=== PATIENT | male | born 1945 | race Caucasian/White ===

== ENCOUNTER 2017-01-10 11:51 | Inpatient (IN) | payer MEDICARE, OTHER ==
[~2017-01-10] VITALS: Ht 180.3 cm; Wt 88.0 kg
[2017-01-10] VITALS (11 sets, daily range): BP systolic 112–214; BP diastolic 55–101; PULSE 73–114; RESP 18–22; TEMP 97.1–100.9; O2SAT 95–99
[~2017-01-10 11:51] MED LIST: ASPI325T PO; ATOR40TA PO; CARD120T4 PO; CARD240C6 PO; CITA-48 PO; CLOP75 PO; DICL75 PO; DONE5TAB14 PO; LISI40TA PO; REDCAP2 OR; TRAM50TA PO; TRAV0.00 EACH EYE; ZOLP10TA3 PO
[2017-01-10] MEDS ORDERED: HYDROmorphone HCL PF 1 MG/ML VIAL IV PUSH ONE ×2 (12:15→13:30)
[2017-01-10] MEDS ORDERED: SODIUM CHLORIDE 0.9% FLUSH 5 ML FLUSH IVF PRN (12:15)
[2017-01-10] MEDS ORDERED: ACETAMINOPHEN/HYDROcodone 325 MG/5 MG TAB PO ONE (12:15)
[2017-01-10] MEDS ORDERED: ASPIRIN 81 MG CHEW TAB PO ONE (12:15)
[2017-01-10 12:37] LABS: AUTOMATED NEUTROPHIL # 6.5 TH/MM3 (1.8-7.7); BASOPHIL % 0.1 % (0.0-2.0); EOSINOPHIL % 0.1 % (0.0-4.0); HEMATOCRIT 23.4 % (39.0-51.0); HEMO FLAGS DIFF FINAL; LYMPH % 2.9 % (9.0-44.0); LYMPHOCYTE # 0.2 TH/MM3 (1.0-4.8); MEAN CELL VOLUME 81.3 FL (80.0-100.0); MEAN CORPUSCULAR HEMOGLOBIN 26.6 PG (27.0-34.0); MEAN CORPUSCULAR HGB CONC 32.8 % (32.0-36.0); MONO % 0.8 % (0.0-8.0); NEUT % 96.1 % (16.0-70.0); PLATELET COUNT 299 TH/MM3 (150-450); RED BLOOD COUNT 2.88 MIL/MM3 (4.50-5.90); RED CELL DISTRIBUTION WIDTH 15.3 % (11.6-17.2); WHITE BLOOD COUNT 6.8 TH/MM3 (4.0-11.0)
[2017-01-10 12:46] LABS: PROTHROMBIN TIME - PATIENT 11.1 SEC (9.8-11.6)
[2017-01-10 12:50] LABS: APTT (PATIENT) 22.8 SEC (24.3-30.1)
[2017-01-10 12:52] LABS: ALT (GPT) 221 U/L (12-78); ANION GAP 9 MEQ/L (5-15); AST (GOT) 229 U/L (15-37); BICARBONATE 25.2 MEQ/L (21.0-32.0); BLOOD UREA NITROGEN 20 MG/DL (7-18); CHLORIDE 108 MEQ/L (98-107); GLOMERULAR FILTRATION RATE 64 ML/MIN (>89); POTASSIUM 3.1 MEQ/L (3.5-5.1); SODIUM (NA) 142 MEQ/L (136-145)
[2017-01-10 12:57] LABS: ALKALINE PHOSPHATASE 467 U/L (45-117); TOTAL BILIRUBIN ADULT 2.1 MG/DL (0.2-1.0)
[2017-01-10 13:03] LABS: CREATINE KINASE 79 U/L (39-308)
[2017-01-10] MEDS ORDERED: LABETALOL HCL 100 MG/20 ML VIAL IV PUSH ONE (13:15)
[2017-01-10] MEDS ORDERED: DILT-64 PO (13:25)
[2017-01-10] MEDS ORDERED: DONE10TA7 PO (13:27)
[2017-01-10] MEDS ORDERED: TRAV0.00 EACH EYE (13:27)
[2017-01-10] MEDS ORDERED: TRAM50TA PO (13:27)
[2017-01-10] MEDS ORDERED: CYCL1TAB29 PO (13:27)
[2017-01-10] MEDS ORDERED: CITA40TA4 PO (13:29)
[2017-01-10] MEDS ORDERED: PLAV75TA29 PO (13:29)
[2017-01-10] MEDS ORDERED: LISI40TA PO (13:29)
[2017-01-10] MEDS ORDERED: ASPI325T PO (13:30)
[2017-01-10] MEDS ORDERED: AMBI10TA PO (13:30)
[2017-01-10] MEDS ORDERED: ATOR40TA16 PO (13:30)
[2017-01-10] MEDS ORDERED: ADVA250A INH (13:32)
--- NOTE | 2017-01-10 13:55 | RADRPT ---
EXAM DATE/TIME: 01/10/2017 12:38 [facility] COMPARISON: CHEST SINGLE AP, May 08, 2016, 14:41. INDICATIONS : Chest Pain, Short of Breath. MEDICAL HISTORY : Chronic obstructive pulmonary disease. Hypertension. Diabetes. SURGICAL HISTORY : None. ENCOUNTER: Initial ACUITY: 1 day PAIN SCORE: 6/10 LOCATION: Bilateral chest FINDINGS: Single AP view of the chest. The lungs are clear. Cardiomediastinal silhouette within normal limits. No evidence of pleural effusion or pneumothorax. CONCLUSION: No acute cardiopulmonary disease identified. Stuart Augustin MD on January 10, 2017 at 13:53 Board Certified Radiologist. This report was verified electronically.
[2017-01-10] MEDS ORDERED: IOHEXOL 350 MG/ML 10 ML VIAL (for RAD DIAG) IV ONE (14:58)
--- NOTE | 2017-01-10 15:24 | RADRPT ---
EXAM DATE/TIME: 01/10/2017 14:49 [facility] COMPARISON: No previous studies available for comparison. INDICATIONS : Abdomen pain; evaluate for aortic dissection. IV CONTRAST: 94 cc Omnipaque 350 (iohexol) IV RADIATION DOSE: 16.89 CTDIvol (mGy) MEDICAL HISTORY : Renal calculi. Cardiovascular disease Pancreatitis.COPD SURGICAL HISTORY : None. ENCOUNTER: Initial ACUITY: 1 day PAIN SCALE: 5/10 LOCATION: chest/abdomen TECHNIQUE: Volumetric scanning was performed using a multi-row detector CT scanner. The data was post processed with a variety of visualization algorithms including full volume maximum intensity projection, multi -planar sliding thin slab reformation, curved planar reformation, and surface rendering techniques. Using automated exposure control and adjustment of the mA and/or kV according to patient size, radiat ion dose was kept as low as reasonably achievable to obtain optimal diagnostic quality images. FINDINGS: LUNGS: There is no consolidation or pneumothorax. No concerning pulmonary nodule is visualized. No pleural fluid is present. Mild emphysema and minimal right upper lobe patchy densities. MEDIASTINUM: No abnormally enlarged lymph nodes by CT criteria. No axillary or hilar abnormalities are identified. Coronary artery calcification. ABDOMEN: The liver and spleen are free of focal defects. The gallbladder demonstrate no abnormality. The adren al glands are normal. The kidneys demonstrate no evidence of solid renal mass or hydronephrosis. No f ree fluid or abdominal masses are identified. No para-aortic adenopathy is seen. Diverticulosis of th e abdomen. Inflammatory changes around the pancreas. Several punctate nonobstructing bilateral renal calculi. Penile prosthesis. PELVIS: No evidence of free fluid or pelvic mass. No abnormally enlarged inguinal or retroperitoneal lymph no aramis are present. The bladder is unremarkable. THORACIC AORTA: The thoracic aortic root is normal with normal branching of the great vessels. There is no evidence of aneurysm or dissection. ABDOMINAL AORTA: The aorta is normal in caliber without aneurysm or dissection. The renal arteries are patent bilater ally. The proximal celiac and superior mesenteric arteries are patent and normal in diameter. Athe rosclerotic changes. Prominent calcification toward the left renal artery. PELVIC VESSELS: The internal iliac and external iliac vessels are patent without aneurysm or stenosis. CONCLUSION: 1. Atherosclerotic changes been no aneurysm or dissection. 2. Diverticulosis. 3. Slight inflammatory changes along the pancreatic head could be pancreatitis in the right clinical setting. 4. Bilateral punctate nonobstructing renal calculi. 5. Emphysema and minimal patchy density right upper lobe could be infectious or inflammatory. Gamal Solorzano MD on January 10, 2017 at 15:19 Board Certified Radiologist. This report was verified electronically.
--- NOTE | 2017-01-10 16:31 | EKG ---
Date Performed: 01/10/2017 Time Performed: 11:55:27 PTAGE: 71 years EKG: POSSIBLE ATRIAL FLUTTER/TACHYCARDIA WITH RAPID VENTRICULAR RESPONSE versus SINUS TACHYCARDI A RIGHT BUNDLE BRANCH BLOCK NONSPECIFIC ST ABNORMALITIES ABNORMAL ECG PREVIOUS TRACING : 05/08/2016 14.13 Compared to previous tracing, heart rate has increased. DOCTOR: Lefty Jack Interpretating Date/Time 01/10/2017 16:31:17
[2017-01-10] MEDS ORDERED: PANTOPRAZOLE INJ 80 MG in SODIUM CHLORIDE 0.9% INJ 35 ML IV ONE (16:45)
[2017-01-10] MEDS ORDERED: SODIUM CHLOR 0.9% 250 ML INJ 250 ML IV ONE (16:45)
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
[2017-01-10] MEDS ORDERED: ONDANSETRON HCL 4 MG/2 ML VIAL IV PRN (17:30)
[2017-01-10] MEDS ORDERED: ACETAMINOPHEN 325 MG TAB PO PRN (17:30)
[2017-01-10] MEDS ORDERED: MORPHINE SULFATE 4 MG/ML INJ IV PUSH PRN (17:45)
--- NOTE | 2017-01-10 17:53 | PD ---
HPI Chief Complaint: Cardiac Complaint Time Seen by Provider: 11:56 Travel History International Travel<30 days: No Contact w/Intl Traveler<30days: No Traveled to known affect area: No History of Present Illness HPI Patient is a 71 year old male who comes in complaining of chest pain. He says the pain started around 6 this morning. He says the pain is in the middle of his chest and his back. He denies cough or congestion. He has had nausea, but has not had any vomiting. He denies leg swelling or calf pain. He has history of CVA and has been on aspirin and plavix for this. PFSH Past Medical History Cardiovascular Problems: Yes (HYPERTENSION) COPD: Yes Cerebrovascular Accident: Yes (STROKE X2) Dementia: Yes (MILD ) Diabetes: Yes Patient Takes Glucophage: No Diminished Hearing: Yes (BILATERAL HEARING AIDS) Hypertension: Yes Kidney Stones: Yes Respiratory: Yes (COPD) Pancreatitis: Yes Influenza Vaccination: No Past Surgical History Appendectomy: Yes Body Medical Devices: bladder implant Eye Surgery: Yes (L/R EYE CATARACT REMOVAL ) Social History Alcohol Use: No Tobacco Use: No Substance Use: No Allergies-Medications (Allergen,Severity, Reaction): Coded Allergies: Bactrim (Verified Allergy, Severe, Anaphylaxis, 01/10/17) Ceftin (Verified Allergy, Severe, Anaphylaxis, 01/10/17) Flagyl (Verified Allergy, Severe, Fever, colitis, 01/10/17) Penicillin (Verified Allergy, Severe, Anaphylaxis, 01/10/17) Sulfa (Verified Allergy, Severe, Anaphylaxis, 01/10/17) Uncoded Allergies: mycins (Allergy, Severe, Fever, colitis, 12/15/13) surgical tape (Allergy, Severe, 12/15/13) Reported Meds & Prescriptions Reported Meds & Active Scripts Active Reported Advair Diskus Inh (Fluticasone-Salmeterol Inh) 250-50 Mcg/Blist Aer 1 Puff INH BID Rinse mouth after use. Aspirin 325 Mg Tab 325 Mg PO DAILY Ambien (Zolpidem Tartrate) 10 Mg Tab 10 Mg PO HS PRN Atorvastatin (Atorvastatin Calcium) 40 Mg Tab 40 Mg PO HS Citalopram (Citalopram Hydrobromide) 40 Mg Tab 60 Mg PO DAILY Plavix (Clopidogrel Bisulfate) 75 Mg Tab 75 Mg PO DAILY Lisinopril 40 Mg Tab 40 Mg PO HS Tramadol (Tramadol HCl) 50 Mg Tab 50 Mg PO Q4H PRN Travatan Z Opth Drops (Travoprost) 0.004 % Soln 1 Drop EACH EYE HS Donepezil 10 Mg Tab 10 Mg PO HS Flexeril (Cyclobenzaprine HCl) 10 Mg Tab 10 Mg PO HS Diltiazem CD 24 HR 240 Mg Caper 480 Mg PO HS Review of Systems Except as stated in HPI: all other systems reviewed are Neg General / Constitutional: No: Fever, Chills Eyes: No: Blurred Vision HENT: No: Headaches Cardiovascular: Positive: Chest Pain or Discomfort Respiratory: Positive: Shortness of Breath Gastrointestinal: Positive: Nausea, No: Abdominal Pain Genitourinary: No: Dysuria Musculoskeletal: No: Edema, Pain Skin: No Rash, No Change in Pigmentation Neurologic: No: Weakness Physical Exam Narrative GENERAL: Awake and alert, in distress secondary to pain. SKIN: Warm and diaphoretic. HEAD: Atraumatic. Normocephalic. EYES: Pupils equal and round. No scleral icterus. ENT: Mucous membranes pink and moist. NECK: Trachea midline. No JVD. CARDIOVASCULAR: Regular rate and rhythm. No murmur appreciated. RESPIRATORY: No accessory muscle use. Clear to auscultation. Breath sounds equal bilaterally. GASTROINTESTINAL: Abdomen soft, non-tender, nondistended. MUSCULOSKELETAL: No obvious deformities. No clubbing. No cyanosis. No edema. NEUROLOGICAL: Awake and alert. No obvious cranial nerve deficits. Motor grossly within normal limits. Normal speech. PSYCHIATRIC: Appropriate mood and affect; insight and judgment normal. Data Data Last Documented VS Vital Signs Date Time Temp Pulse Resp B/P Pulse Ox O2 Delivery O2 Flow Rate FiO2 01/10/17 15:36 81 18 116/58 97 Room Air 01/10/17 12:14 2 01/10/17 11:54 100.9 Orders Electrocardiogram (01/10/17 ) Ckmb (Isoenzyme) Profile (01/10/17 12:03) Complete Blood Count With Diff (01/10/17 12:03) Comprehensive Metabolic Panel (01/10/17 12:03) Prothrombin Time / Inr (Pt) (01/10/17 12:03) Act Partial Throm Time (Ptt) (01/10/17 12:03) Troponin I (01/10/17 12:03) Lipase (01/10/17 12:03) Chest, Single Ap (01/10/17 12:03) Ecg Monitoring (01/10/17 12:03) Bilateral Bp Monitoring (01/10/17 12:03) Iv Access Insert/Monitor (01/10/17 12:03) Oximetry (01/10/17 12:03) Oxygen Administration (01/10/17 12:03) Aspirin Chew (Aspirin Chew) (01/10/17 12:15) Sodium Chloride 0.9% Flush (Ns Flush) (01/10/17 12:15) Hydromorphone Pf Inj (Dilaudid Pf Inj) (01/10/17 12:15) Lactic Acid (01/10/17 12:10) Acetamin-Hydrocod 325-5 Mg ([place] 5-325 (01/10/17 12:15) Cta Thor Abd Aorta W Iv C W3d (01/10/17 13:04) Labetalol Inj (Trandate Inj) (01/10/17 13:15) Hydromorphone Pf Inj (Dilaudid Pf Inj) (01/10/17 13:30) Iohexol 350 Inj (Omnipaque 350 Inj) (01/10/17 14:58) Admit Order (Ed Use Only) (01/10/17 ) Pantoprazole Inj (Protonix Inj) (01/10/17 16:45) Pantoprazole Inj (Protonix Inj) (01/10/17 16:45) Red Blood Cells (Rbc) (01/10/17 16:39) Blood Product Administration .UPON TRANSFUSION (01/10/17 16:39) Sodium Chlor 0.9% 250 Ml Inj (Ns 250 Ml (01/10/17 16:45) Type And Screen (01/10/17 16:39) Labs Laboratory Tests Test 01/10/17 12:20 White Blood Count 6.8 TH/MM3 Red Blood Count 2.88 MIL/MM3 Hemoglobin 7.7 GM/DL Hematocrit 23.4 % Mean Corpuscular Volume 81.3 FL Mean Corpuscular Hemoglobin 26.6 PG Mean Corpuscular Hemoglobin 32.8 % Concent Red Cell Distribution Width 15.3 % Platelet Count 299 TH/MM3 Mean Platelet Volume 7.9 FL Neutrophils (%) (Auto) 96.1 % Lymphocytes (%) (Auto) 2.9 % Monocytes (%) (Auto) 0.8 % Eosinophils (%) (Auto) 0.1 % Basophils (%) (Auto) 0.1 % Neutrophils # (Auto) 6.5 TH/MM3 Lymphocytes # (Auto) 0.2 TH/MM3 Monocytes # (Auto) 0.1 TH/MM3 Eosinophils # (Auto) 0.0 TH/MM3 Basophils # (Auto) 0.0 TH/MM3 CBC Comment DIFF FINAL Differential Comment Prothrombin Time 11.1 SEC Prothromb Time International 1.0 RATIO Ratio Activated Partial 22.8 SEC Thromboplast Time Sodium Level 142 MEQ/L Potassium Level 3.1 MEQ/L Chloride Level 108 MEQ/L Carbon Dioxide Level 25.2 MEQ/L Anion Gap 9 MEQ/L Blood Urea Nitrogen 20 MG/DL Creatinine 1.13 MG/DL Estimat Glomerular Filtration 64 ML/MIN Rate Random Glucose 192 MG/DL Lactic Acid Level 3.4 mmol/L Calcium Level 8.9 MG/DL Total Bilirubin 2.1 MG/DL Aspartate Amino Transf 229 U/L (AST/SGOT) Alanine Aminotransferase 221 U/L (ALT/SGPT) Alkaline Phosphatase 467 U/L Total Creatine Kinase 79 U/L Troponin I 0.12 NG/ML Total Protein 6.4 GM/DL Albumin 3.2 GM/DL Lipase 362 U/L MDM Medical Decision Making Medical Screen Exam Complete: Yes Emergency Medical Condition: Yes Medical Record Reviewed: Yes Interpretation(s) ECG shows a flutter at 115, depressions in the 1, aVL, V4 through V6. ST depressions are similar to previous EKGs. Differential Diagnosis Aortic dissection versus ACS versus NSTEMI versus STEMI Narrative Course Patient is a 71-year-old male who comes in complaining of chest pain with shortness of breath. Exam shows patient in mild distress due to pain, he is diaphoretic. IV established, patient placed on the cardiac cath lab technologist. Labs sent. Patient's reported that he sometimes has adverse reactions to pain medicine. She said that he can take hydrocodone without any issue. Given 1 Lortab. Given aspirin. Labs show an elevated troponin to 0.12. Hemoglobin is 7.7. Lactic acid is 3.4. AST, ALP, alkaline phosphatase are all elevated. CTA of the aorta performed shows no signs of dissection. There is inflammation around the pancreas. No other acute findings seen. Patient continued to have pain and elevated blood pressure. Given a dose of labetalol as well as hydromorphone. Patient felt much better after pain medicine. Stool was brown, but positive for occult blood. I spoke with Dr. Jack of cardiology regarding the patient's elevated troponin. He agrees to hold heparin at this time due to the active bleeding. Patient will be transfused one unit of PRBCs due to anemia and strain on his heart. Patient started on Protonix. Admitted for further management. Critical Care Narrative Aggregate critical care time was 40 minutes. Time to perform other separately billable procedures was not included in the critical care time. My time did not include minutes spent treating any other patients simultaneously or on activities that did not directly contribute to the patient's treatment. The services I provided to this patient were to treat and/or prevent clinically significant deterioration that could result in: Serious illness or I provided critical care services requiring my management, as noted below: Chart data review, documentation time, medication orders and management, vital sign assessments/reviewing monitor data, ordering and reviewing lab tests, ordering and interpreting/reviewing x-rays and diagnostic studies, care of the patient and discussion of the patient with the admitting physicians. Diagnosis Primary Impression: NSTEMI (non-ST elevated myocardial infarction) Additional Impression: Lower GI bleed Admitting Information Admitting Physician Requests: it Debbie Rendon MD Jan 10, 2017 17:53
[2017-01-10] MEDS: NS + KCL 20 MEQ INJ 1,000 ML IV SCH (18:00)
--- NOTE | 2017-01-10 18:07 | MB ---
cc: LEONILA VACA M.D. DATE OF CONSULTATION: 01/10/2017 REASON FOR CONSULTATION: Chest pain, abnormal troponin level. HISTORY OF PRESENT ILLNESS: The patient is 71-year-old white male with a history of hypertension, COPD, two CVAs, cerebrovascular disease status post right carotid endarterectomy last year who presented to the hospital with fairly severe substernal chest pain without associated shortness of breath, nausea or diaphoresis. The chest discomfort lasted about two hours. At the present time, he is resting comfortably denying any chest pain or shortness of breath. He cannot recall any other episodes of chest discomfort over the last few months. The chest pain was not pleuritic. He also denies dizziness, syncope, near-syncope, palpitations, pedal edema, paroxysmal nocturnal dyspnea. PAST MEDICAL HISTORY: 1. Hypertension 2. COPD. 3. History of two CVAs. 4. History of right carotid endarterectomy. PAST SURGICAL HISTORY: 1. Back surgery. 2. Left elbow surgery 1975. 3. Right hand surgery 1984. 4. Penile implant 1987. 5. Bilateral cataract operations 2008 with a repeat right cataract operation 2011. 6. Bladder surgery 2006. 7. Appendectomy. 8. Right carotid endarterectomy 2016. CARDIAC MEDICATIONS AT HOME: 1. Aspirin 325 mg daily. 2. Atorvastatin 40 mg q.h.s. 3. Plavix 75 mg daily. 4. Lisinopril 40 mg q.h.s. 5. Diltiazem 200s 40 mg q.h.s. ALLERGIES: 1. BACTRIM. 2. CEFTIN. 3. FLAGYL. 4. PENICILLIN. 5. SULFA. 6. MYCINS. FAMILY HISTORY The patient's father sustained myocardial infarctions beginning in his 50s. SOCIAL HISTORY: The patient quit smoking a few months ago. He has a history of alcohol abuse but has not drunk alcohol since 2007. REVIEW OF SYSTEMS: Review of systems as in the history of present illness otherwise negative or noncontributory. He also denies headache, abdominal pain, bright red blood per rectum, fevers, pleurisy, cough. He has noted black tarry stools over the last six days. PHYSICAL EXAMINATION: VITAL SIGNS: On physical examination his blood pressure 116/58 with a pulse of 80, respirations 18. GENERAL: In general he is a well-developed, well-nourished white male in no acute distress. HEAD, EYES, EARS, NOSE, THROAT: On HEENT examination jugular venous pressure is normal. Carotid pulses are 2+ bilaterally and without bruits. CHEST: Examination of the chest reveals clear lung lenoard. CARDIAC: On cardiac examination he has a regular rhythm and rate without S3, S4 or murmur. ABDOMEN: On abdominal examination he has a soft, nontender abdomen. Bowel sounds are present. There is no definite hepatosplenomegaly. EXTREMITIES: Examination of extremities reveals no clubbing, cyanosis or edema. EKGS: EKG shows probable sinus tachycardia, right bundle-branch block, nonspecific ST abnormalities. LABORATORY DATA: Laboratory data includes potassium 3.1, BUN 20, creatinine 1.13, AST 229, ALT 221. CK 79, troponin 0.12. INR 1.0. IMAGING STUDIES: The patient's aortic CT angiogram shows no evidence for aneurysm or dissection; slight inflammatory changes are seen along the pancreatic head possibly from pancreatitis. Chest x-ray shows no acute disease. IMPRESSION: Chest pain, minimally abnormal troponin level in this 71-year-old white male with a history of hypertension, COPD, CVA, right carotid endarterectomy. At this time he is chest pain-free. EKG shows no definite diagnostic S-T segment or T-wave changes. CK is negative for myocardial infarction. At this time he is not a candidate for invasive cardiac evaluation with his anemia and possible GI bleeding. So far there has been no evidence for congestive heart failure or significant arrhythmias. RECOMMENDATIONS: 1. Check a 2-D echo to assess left ventricular function. 2. If his blood pressures tolerate, recommend beta yina therapy. 3. GI evaluation for possible upper GI bleeding. 4. Consider initiation of daily baby aspirin. MD KIERSTEN Donnelly/BRIJESH /5:35 PM /5:46 PM SAL
[2017-01-10] MEDS: PANTOPRAZOLE INJ 80 MG in SODIUM CHLORIDE 0.9% INJ 100 ML IV SCH (18:58)
[2017-01-10] MEDS ORDERED: NON-FORMULARY DRUG (Fluticasone-Salmeterol Inh (Advair Diskus Inh) 1 PUFF) INH SCH (21:00)
[2017-01-10] MEDS ORDERED: LISINOPRIL 20 MG TAB PO SCH (21:00)
[2017-01-10] MEDS: CARVEDILOL 3.125 MG TAB PO SCH (21:55)
[2017-01-10] MEDS: DILTIAZEM-CD 240 MG CAP ER PO SCH (21:55)
[2017-01-10] MEDS: ATORVASTATIN 40 MG TAB PO SCH (21:56)
[2017-01-10] MEDS: DONEPEZIL HCL 5 MG TAB PO SCH (21:56)
[2017-01-10] MEDS: HYDROmorphone HCL PF 1 MG/ML VIAL IV PUSH PRN (22:44)
[2017-01-11] VITALS (10 sets, daily range): BP systolic 111–171; BP diastolic 55–80; PULSE 57–63; RESP 14–38; TEMP 97.9–98.8; O2SAT 93–98
[2017-01-11] MEDS: ZOLPIDEM TARTRATE 10 MG TAB PO PRN (01:13)
[2017-01-11 03:46] LABS: BASOPHIL % 0.3 % (0.0-2.0); HEMATOCRIT 22.1 % (39.0-51.0); HEMO FLAGS DIFF FINAL; LYMPHOCYTE # 0.7 TH/MM3 (1.0-4.8); MEAN CELL VOLUME 81.3 FL (80.0-100.0); MEAN CORPUSCULAR HGB CONC 33.2 % (32.0-36.0); MONO % 7.9 % (0.0-8.0); NEUT % 86.8 % (16.0-70.0); PLATELET COUNT 249 TH/MM3 (150-450); RED BLOOD COUNT 2.72 MIL/MM3 (4.50-5.90); RED CELL DISTRIBUTION WIDTH 14.8 % (11.6-17.2); WHITE BLOOD COUNT 14.9 TH/MM3 (4.0-11.0)
[2017-01-11] MEDS: PANTOPRAZOLE INJ 80 MG in SODIUM CHLORIDE 0.9% INJ 100 ML IV SCH ×2 (04:00→15:38)
[2017-01-11] MEDS: NS + KCL 20 MEQ INJ 1,000 ML IV SCH ×2 (04:00→20:14)
[2017-01-11 04:06] LABS: ALKALINE PHOSPHATASE 337 U/L (45-117); ALT (GPT) 179 U/L (12-78); ANION GAP 9 MEQ/L (5-15); AST (GOT) 159 U/L (15-37); BICARBONATE 24.5 MEQ/L (21.0-32.0); BLOOD UREA NITROGEN 26 MG/DL (7-18); CHLORIDE 109 MEQ/L (98-107); GLOMERULAR FILTRATION RATE 65 ML/MIN (>89); HDL CHOLESTEROL 72.5 MG/DL (40.0-60.0); LDL CHOLESTEROL 7 MG/DL (0-99); MAGNESIUM 1.7 MG/DL (1.5-2.5); POTASSIUM 3.9 MEQ/L (3.5-5.1); SODIUM (NA) 142 MEQ/L (136-145); TOTAL BILIRUBIN ADULT 3.7 MG/DL (0.2-1.0)
[2017-01-11] MEDS: HYDROmorphone HCL PF 1 MG/ML VIAL IV PUSH PRN ×5 (04:36→22:08)
[2017-01-11] MEDS ORDERED: PANTOPRAZOLE SODIUM 40 MG VIAL IV PUSH SCH (09:00)
[2017-01-11] MEDS: BUDESONIDE-FORMOTEROL 160/4.5 MCG INHALER INH SCH ×2 (09:00→21:00)
[2017-01-11] MEDS ORDERED: SODIUM CHLOR 0.9% 250 ML INJ 250 ML IV ONE (09:00)
[2017-01-11] MEDS ORDERED: FUROSEMIDE 20 MG/2 ML VIAL IV ONE (09:00)
[2017-01-11] MEDS: CARVEDILOL 3.125 MG TAB PO SCH ×3 (09:00→20:11)
--- NOTE | 2017-01-11 09:14 | EKG ---
Date Performed: 01/11/2017 Time Performed: 02:07:36 PTAGE: 71 years EKG: Sinus rhythm Right bundle branch block Lateral T wave changes are nonspecific Abnormal ECG NO PREVIOUS TRACING DOCTOR: Lefty Jack Interpretating Date/Time 01/11/2017 09:13:51
[2017-01-11] MEDS: CITALOPRAM HYDROBROMIDE 20 MG TAB PO SCH (09:39)
[2017-01-11] MEDS ORDERED: PANTOPRAZOLE INJ 80 MG in SODIUM CHLORIDE 0.9% INJ 100 ML IV SCH (10:00)
[2017-01-11 10:28] LABS: REVIEW FLAG FINAL
[2017-01-11] MEDS ORDERED: NITROGLYCERIN 0.4 MG SL 25 TABS/BTL SL PRN (11:00)
[2017-01-11] MEDS ORDERED: NITROGLYCERIN 2% OINT 1 GM PACKET TOP PRN (11:00)
[2017-01-11 12:14] LABS: CREATINE KINASE 161 U/L (39-308)
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
[2017-01-11 12:41] LABS: CKMB 0.9 NG/ML (0.5-3.6)
--- NOTE | 2017-01-11 14:03 | PD.CONS ---
History of Present Illness Service Infectious disease Consult Requested By Dr Nathaniel Van Reason for Consult Evaluate patient with gram-negative sepsis Primary Care Physician Chandana Akins MD Diagnoses: History of Present Illness Patient seen and examined. Records reviewed. Patient is a 72-year-old male presented to the hospital complaining of chest pain that started the morning of admission. He describes the pain as a squeezing sensation. There was no radiation, but he had some shortness of breath. There was no diaphoresis. Patient also has had black tarry bowel movements in the last week. There was one vomiting on the day of admission. He has not had any bouts of abdominal pain, but on the time of my examination patient is having problem in his right upper quadrant. He has not had any prior problem with gallbladder but he has had previous episodes of pancreatitis , the last one probably back in the 80s. He has had previous history of alcohol abuse but has been dry probably since about 2007. He denies any dysuria or any hematuria. Currently he still has some chest pain but he describes this now as being sharp. He had one temp spike to 100.9. His WBC was initially normal, and now it's elevated at 15,000. His LFTs are elevated. Previous LFTs done as an outpatient were within normal limits. His troponins are also elevated and cardiology has been following the patient. There were 2 blood cultures done on admission, and they're now reported as growing gram- negative rods. His hemodynamics are stable. His lipase is normal. Infectious disease consultation requested to evaluate the patient. Review of Systems Constitutional: DENIES: Fever, Chills, Night Sweats Eyes: DENIES: Eye pain Ears, nose, mouth, throat: DENIES: Nasal discharge, Throat pain, Ear Pain, Sinus Pain, Odynophagia Respiratory: DENIES: Cough Cardiovascular: COMPLAINS OF: Chest pain, DENIES: Palpitations, Syncope Gastrointestinal: COMPLAINS OF: Abdominal pain, Diarrhea, Vomiting, DENIES: Nausea, Difficulty Swallowing Genitourinary: DENIES: Hematuria, Dysuria Musculoskeletal: DENIES: Joint pain, Joint Swelling Integumentary: DENIES: Rash Immunologic/allergic: DENIES: Urticaria Neurologic: DENIES: Headache Psychiatric: DENIES: Anxiety, Hallucinations Past Family Social History Allergies: Coded Allergies: Bactrim (Verified Allergy, Severe, Anaphylaxis, 01/10/17) Ceftin (Verified Allergy, Severe, Anaphylaxis, 01/10/17) Flagyl (Verified Allergy, Severe, Fever, colitis, 01/10/17) Penicillin (Verified Allergy, Severe, Anaphylaxis, 01/10/17) Sulfa (Verified Allergy, Severe, Anaphylaxis, 01/10/17) Uncoded Allergies: mycins (Allergy, Severe, Fever, colitis, 12/15/13) surgical tape (Allergy, Severe, 12/15/13) Past Medical History DM Glaucoma Hypertension COPD Mild dementia Vertigo Hearing loss Previous TIA Benign meningeal tumor frontal lobe area Spinal stenosis "inoperable" Ruptured disc lumbar spine Neuropathy Shingles Multiple skin cancers Previous alcohol abuse Kidneys stones Past Surgical History Right knee open meniscectomy I&D of left knee abscess Appendectomy Multiple back surgeries Left elbow surgery for damaged ulnar nerve Kidney stone removal Penile implant surgery Bladder implant (patient described this as a pacemaker for his bladder) Cataract surgery right and left eyes Active Ordered Medications Tylenol Lipitor Symbicort Coreg Celexa Cardizem Aricept Dilaudid Levaquin Prinivil SL NTG Topical nitrates Zofran Protonix Potassium Ambien Social History Lives with in a house in [facility]. He moved from [place] in 2012. Recovering alcoholic drink mostly gin. Quit 2007. Tobacco use 60 years of smoking one pack per day. Quit September 2013. 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 [employer] Physical Exam Vital Signs Vital Signs Date Time Temp Pulse Resp B/P Pulse Ox O2 Delivery O2 Flow Rate FiO2 01/11/17 13:00 98.5 59 38 117/55 98 01/11/17 12:00 98.8 60 18 128/60 96 01/11/17 11:38 58 18 123/57 96 01/11/17 08:00 98.5 58 20 133/60 98 01/11/17 04:00 97.9 57 18 111/58 97 01/10/17 22:10 97.9 74 20 153/71 99 01/10/17 21:55 97.1 75 20 158/76 98 01/10/17 20:20 76 01/10/17 19:45 98.3 73 18 141/66 98 01/10/17 19:30 74 16 149/70 98 01/10/17 18:58 76 20 112/59 95 Room Air 01/10/17 15:36 81 18 116/58 97 Room Air 01/10/17 14:42 18 01/10/17 14:42 18 01/10/17 14:07 126/61 Physical Exam GENERAL: This is a well-nourished, well-developed male, awake and alert, in no apparent distress. SKIN: Warm and dry. No generalized rash, no ecchymosis, no embolic lesions. HEAD: Atraumatic. Normocephalic. No temporal or scalp tenderness. EYES: [place] conjunctivae, no petechia or hemorrhage. Pupils equal round and reactive. Extraocular motions intact. No scleral icterus. No injection or drainage. ENT: Nose without bleeding, or purulent drainage. Moist oral mucosa. Throat without erythema, or exudate. Uvula midline. Airway patent. NECK: Trachea midline. No JVD or lymphadenopathy. Supple, nontender, no meningeal signs. CARDIOVASCULAR: Regular rate and rhythm without murmurs, gallops, or rubs. RESPIRATORY: Clear to auscultation. Breath sounds equal bilaterally. No wheezes , rales, or rhonchi. GASTROINTESTINAL: Abdomen soft, nondistended, has significant tenderness in RUQ , (+) Jackson's. Has some guarding, no rebound. MUSCULOSKELETAL: Extremities without clubbing, cyanosis, or edema. No joint tenderness, effusion, or edema noted. No calf tenderness. Negative Homans sign bilaterally. NEUROLOGICAL: Awake and alert. Cranial nerves II through XII intact. Motor and sensory grossly within normal limits. Normal speech. PSYCH: Normal affect, calm and cooperative LINE: PIV with no evidence of infection Laboratory Laboratory Tests Test 01/10/17 01/10/17 01/10/17 01/11/17 17:00 18:22 19:51 03:27 Blood Type A POSITIVE A POSITIVE Antibody Screen NEGATIVE Crossmatch Leukocyte-Reduced Red Blood Cells Blood Bank Comment Troponin I 0.48 0.47 White Blood Count 14.9 Red Blood Count 2.72 Hemoglobin 7.3 Hematocrit 22.1 Mean Corpuscular Volume 81.3 Mean Corpuscular Hemoglobin 27.0 Mean Corpuscular Hemoglobin 33.2 Concent Red Cell Distribution Width 14.8 Platelet Count 249 Mean Platelet Volume 7.5 Neutrophils (%) (Auto) 86.8 Lymphocytes (%) (Auto) 5.0 Monocytes (%) (Auto) 7.9 Eosinophils (%) (Auto) 0.0 Basophils (%) (Auto) 0.3 Neutrophils # (Auto) 13.0 Lymphocytes # (Auto) 0.7 Monocytes # (Auto) 1.2 Eosinophils # (Auto) 0.0 Basophils # (Auto) 0.0 CBC Comment DIFF FINAL Differential Comment Sodium Level 142 Potassium Level 3.9 Chloride Level 109 Carbon Dioxide Level 24.5 Anion Gap 9 Blood Urea Nitrogen 26 Creatinine 1.11 Estimat Glomerular Filtration 65 Rate Random Glucose 99 Lactic Acid Level 1.0 Calcium Level 8.0 Phosphorus Level 4.4 Magnesium Level 1.7 Total Bilirubin 3.7 Aspartate Amino Transf 159 (AST/SGOT) Alanine Aminotransferase 179 (ALT/SGPT) Alkaline Phosphatase 337 Total Protein 5.5 Albumin 2.7 Triglycerides Level 59 Cholesterol Level 91 LDL Cholesterol 7 HDL Cholesterol 72.5 Cholesterol/HDL Ratio 1.25 Lipase 816 Test 01/11/17 01/11/17 01/11/17 09:02 09:10 11:33 Hemoglobin 7.5 Hematocrit 23.0 Blood Type A POSITIVE Crossmatch Leukocyte-Reduced Red Blood Cells Blood Bank Comment Total Creatine Kinase 161 Creatine Kinase MB 0.9 Troponin I 0.35 Lipase 375 Date/Time Procedure Status Source Growth 01/10/17 19:00 Aerobic Blood Culture - Preliminary Resulted Blood Peripheral NO GROWTH IN 1 DAY 01/10/17 19:00 Anaerobic Blood Culture - Preliminary Resulted Gram Negative Pro Result Diagram: 01/11/17 0902 01/11/17 0327 Imaging RADIOLOGY STUDIES/FILMS REVIEWED Aorta CTA 01/10/17 1304 Signed Impressions: Service Date/Time: Tuesday, January 10, 2017 14:49 - CONCLUSION: 1. Atherosclerotic changes been no aneurysm or dissection. 2. Diverticulosis. 3. Slight inflammatory changes along the pancreatic head could be pancreatitis in the right clinical setting. 4. Bilateral punctate nonobstructing renal calculi. 5. Emphysema and minimal patchy density right upper lobe could be infectious or inflammatory. Gamal Solorzano MD Chest X-Ray 01/10/17 1203 Signed Impressions: Service Date/Time: Tuesday, January 10, 2017 12:38 - CONCLUSION: No acute cardiopulmonary disease identified. Stuart Augustin MD Assessment and Plan Assessment and Plan IMPRESSION GNR sepsis, source - has elevated LFTs (new) - no UA done; hx kidney stones - suspicious for aqcute cholecystitis, has (+) Jackson's Chest pain, ?VA Multiple Abx allergies - all recorded as anaphylaxis, patient not sure RECOMMENDATION IV Tygacil - for GPC and anaerobic coverage; patient with hx multiplle Abx allergies IV Azactam for more GNR coverage Continue Levaquin If US (+) will consult surgery for possible acute cholecystitis Repeat BC UA and C/S Await abdominal US - may need CT A/P Cardiology evaluating patient for elevated troponins Follow C/S Monitor progress I will follow along with you Thank you for this consultation Discussed Condition With Explained plan to patient D/W Vanessa Overton MD Jan 11, 2017 14:03
--- NOTE | 2017-01-11 14:18 | PD.CARD.PN ---
Subjective Subjective Remarks Continued, constant substernal chest pressure and sharp pain. No dyspnea, nausea, dizziness, palpitations. Objective Medications Item Value Date Time Nitroglycerin 2 inch 01/11/17 1100 (Nitroglycerin Q1H PRN/TOP 01/11/17 1124 2% Oint) Nitroglycerin 0.4 mg 01/11/17 1100 (Nitrostat Sl) Q5M PRN/SL Carvedilol 3.125 mg 01/10/17 2100 (Coreg) Q12HR/PO 01/11/17 0957 Atorvastatin 40 mg 01/10/17 2100 Calcium HS/PO 01/10/172155 (Lipitor) Diltiazem HCl 480 mg 01/10/172099 (Cardizem Cd) HS/PO 01/10/172154 Lisinopril 40 mg 01/10/172099 (Prinivil) HS/PO 01/10/172155 Vital Signs / I&O Vital Signs Date Time Temp Pulse Resp B/P Pulse Ox O2 Delivery O2 Flow Rate FiO2 01/11/17 13:00 98.5 59 38 117/55 98 01/11/17 12:00 98.8 60 18 128/60 96 01/11/17 11:38 58 18 123/57 96 01/11/17 08:00 98.5 58 20 133/60 98 01/11/17 04:00 97.9 57 18 111/58 97 01/10/17 22:10 97.9 74 20 153/71 99 01/10/17 21:55 97.1 75 20 158/76 98 01/10/17 20:20 76 01/10/17 19:45 98.3 73 18 141/66 98 01/10/17 19:30 74 16 149/70 98 01/10/17 18:58 76 20 112/59 95 Room Air 01/10/17 15:36 81 18 116/58 97 Room Air 01/10/17 14:42 18 01/10/17 14:42 18 I/O 01/10/17 01/10/17 01/10/17 01/11/17 01/11/17 01/11/17 07:00 15:00 23:00 07:00 15:00 23:00 Intake Total 100 ml 1187 ml Output Total 200 ml Balance 100 ml 987 ml Intake Oral 100 ml 0 ml IV Total 481 ml Packed Cells 323 ml Other 383 ml Output Urine Total 200 ml # Voids 1 # Bowel Movements 1 1 Physical Exam GENERAL: Well developed, well nourished. No acute distress. HEENT: Jugular venous pressure is normal. CHEST: Lungs clear to auscultation anteriorly. CARDIAC: Regular rate and rhythm without S3, S4, or murmur. ABDOMEN: Soft, nontender, no hepatosplenomegaly. Bowel sounds present. EXTREMITIES: No clubbing, cyanosis, or edema. Laboratory Laboratory Tests Test 01/10/17 01/10/17 01/10/17 01/11/17 17:00 18:22 19:51 03:27 Blood Type A POSITIVE A POSITIVE Antibody Screen NEGATIVE Crossmatch Leukocyte-Reduced Red Blood Cells Blood Bank Comment Troponin I 0.48 NG/ML 0.47 NG/ML White Blood Count 14.9 TH/MM3 Red Blood Count 2.72 MIL/MM3 Hemoglobin 7.3 GM/DL Hematocrit 22.1 % Mean Corpuscular Volume 81.3 FL Mean Corpuscular Hemoglobin 27.0 PG Mean Corpuscular Hemoglobin 33.2 % Concent Red Cell Distribution Width 14.8 % Platelet Count 249 TH/MM3 Mean Platelet Volume 7.5 FL Neutrophils (%) (Auto) 86.8 % Lymphocytes (%) (Auto) 5.0 % Monocytes (%) (Auto) 7.9 % Eosinophils (%) (Auto) 0.0 % Basophils (%) (Auto) 0.3 % Neutrophils # (Auto) 13.0 TH/MM3 Lymphocytes # (Auto) 0.7 TH/MM3 Monocytes # (Auto) 1.2 TH/MM3 Eosinophils # (Auto) 0.0 TH/MM3 Basophils # (Auto) 0.0 TH/MM3 CBC Comment DIFF FINAL Differential Comment Sodium Level 142 MEQ/L Potassium Level 3.9 MEQ/L Chloride Level 109 MEQ/L Carbon Dioxide Level 24.5 MEQ/L Anion Gap 9 MEQ/L Blood Urea Nitrogen 26 MG/DL Creatinine 1.11 MG/DL Estimat Glomerular Filtration 65 ML/MIN Rate Random Glucose 99 MG/DL Lactic Acid Level 1.0 mmol/L Calcium Level 8.0 MG/DL Phosphorus Level 4.4 MG/DL Magnesium Level 1.7 MG/DL Total Bilirubin 3.7 MG/DL Aspartate Amino Transf 159 U/L (AST/SGOT) Alanine Aminotransferase 179 U/L (ALT/SGPT) Alkaline Phosphatase 337 U/L Total Protein 5.5 GM/DL Albumin 2.7 GM/DL Triglycerides Level 59 MG/DL Cholesterol Level 91 MG/DL LDL Cholesterol 7 MG/DL HDL Cholesterol 72.5 MG/DL Cholesterol/HDL Ratio 1.25 RATIO Lipase 816 U/L Test 01/11/17 01/11/17 01/11/17 09:02 09:10 11:33 Hemoglobin 7.5 GM/DL Hematocrit 23.0 % Blood Type A POSITIVE Crossmatch Leukocyte-Reduced Red Blood Cells Blood Bank Comment Total Creatine Kinase 161 U/L Creatine Kinase MB 0.9 NG/ML Troponin I 0.35 NG/ML Lipase 375 U/L Assessment and Plan Problem List: (1) Elevated troponin Assessment and Plan: Cardiac status overall stable. Suspect ongoing CP's are noncardiac in etiology as despite prolonged chest discomfort since admission, troponin levels trending downward, and CK negative for MD. Echo pending. Patient may have gallstone pancreatitis. Rec continue beta and calcium channel blockers, hold on aspirin for now given possible GI bleeding. (2) Hypertension Assessment and Plan: Stable. Normotensive. (3) Hyperlipidemia Assessment and Plan: Very low cholesterol levels. Rec no statin especially with hepatic insufficiency. Code Status full code Discussed Condition With patient Lefty Jack MD Jan 11, 2017 14:18
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
[2017-01-11] MEDS: ASPIRIN 81 MG CHEW TAB CHEW SCH (14:51)
[2017-01-11] MEDS ORDERED: TIGECYCLINE INJ 100 MG in SODIUM CHLORIDE 0.9% INJ 100 ML IV ONE (15:00)
--- NOTE | 2017-01-11 15:00 | RADRPT ---
EXAM DATE/TIME: 01/11/2017 13:45 [place] COMPARISON: CTA THORACIC ABDOMINAL AORTA W 3D RECON, January 10, 2017, 14:49. INDICATIONS : Abdominal pain. MEDICAL HISTORY : Dementia. CVA. Vertigo. COPD. Pancreatitis. Dizziness. Vomiting. Diabetes. SURGICAL HISTORY : Appendectomy. Right endarectomy. Lithotripsy. ENCOUNTER: Initial ACUITY: 1 day PAIN SCORE: 9/10 LOCATION: Bilateral upper quadrant MEASUREMENTS: LIVER: 18.8 cm length COMMON DUCT: 15 mm RIGHT KIDNEY: 12.2 x 6.3 x 5.4 cm LEFT KIDNEY: 11.1 x 6.0 x 5.9 cm SPLEEN: 12.8 cm length AORTA: 2.7cm maximal FINDINGS: LIVER: Enlarged and mildly heterogeneous. Normal flow velocity and direction seen in the main portal vein. T here is trace perihepatic ascites. COMMON DUCT: Distended common bile duct. GALLBLADDER: Wall thickening and pericholecystic fluid. There is sludge and a small stone in the lumen. PANCREAS: The visualized portions are within normal limits. Focal adenomyomatosis demonstrated. RIGHT KIDNEY: No hydronephrosis, stone or mass. LEFT KIDNEY: No hydronephrosis, stone or mass. SPLEEN: No focal lesion. AORTA: Non aneurysmal. IVC: Within normal limits. CONCLUSION: 1. Enlarged liver with mild ascites. 2. Gallbladder wall thickening with pericholecystic fluid, differential including acute cholecystitis and secondary changes related to liver disease. Negative sonographic Jackson's sign would favor the l atter. 3. Sludge and stone in the gallbladder and common bile duct distention of uncertain etiology. Jose Browne MD on January 11, 2017 at 14:55 Board Certified Radiologist. This report was verified electronically.
[2017-01-11] MEDS ORDERED: SODIUM CHLOR 0.9% 1000 ML INJ 1,000 ML IV ONE (15:15)
[2017-01-11] MEDS ORDERED: POTASSIUM PHOSPHATE MONOBASIC 500 MG TAB PO/TUBE PRN (15:30)
[2017-01-11] MEDS ORDERED: SODIUM PHOSPHATE INJ 30 MMOL in SODIUM CHLOR 0.9% 250 ML INJ 240 ML IV PRN (15:30)
[2017-01-11] MEDS ORDERED: POTASSIUM CHLOR 40 MEQ PREMIX 100 ML IV PRN ×2 (15:30)
[2017-01-11] MEDS ORDERED: POTASSIUM CHLOR 20 MEQ PREMIX 100 ML IV PRN ×2 (15:30)
[2017-01-11] MEDS ORDERED: POTASSIUM PHOSPHATE MONOBASIC 500 MG TAB PO PRN (15:30)
[2017-01-11] MEDS ORDERED: POTASSIUM PHOSPHATE INJ 30 MMOL in SODIUM CHLOR 0.9% 250 ML INJ 250 ML IV PRN (15:30)
[2017-01-11] MEDS ORDERED: MAGNESIUM SULFATE INJ 2 GM in SODIUM CHLORIDE 0.9% INJ 96 ML IV PRN (15:30)
[2017-01-11] MEDS ORDERED: POTASSIUM CL 40 MEQ/30 ML LIQ UDC PO/TUBE PRN ×2 (15:30)
[2017-01-11] MEDS ORDERED: MAGNESIUM SULFATE INJ 4 GM in SODIUM CHLORIDE 0.9% INJ 92 ML IV PRN (15:30)
[2017-01-11] MEDS ORDERED: MAGNESIUM OXIDE 400 MG TAB PO PRN (15:30)
[2017-01-11] MEDS ORDERED: RESP: ALBUTEROL 2.5 MG/IPRATROPIUM 0.5 MG NEB (PRN) NEB (15:30)
[2017-01-11 15:39] LABS: HEMATOCRIT 25.6 % (39.0-51.0); REVIEW FLAG FINAL
--- NOTE | 2017-01-11 15:49 | MB ---
cc: LIMA REYES M.D. DATE OF CONSULTATION: 01/11/2017. REASON FOR CONSULTATION: DATE OF : 1945. REFERRING PHYSICIAN: Dr. Jacome. HISTORY OF PRESENT ILLNESS: Thank you for the consultation. This is a 71-year-old gentleman who has multiple medical problems. The patient has cardiac issues including hypertension, COPD, CVAs, coronary artery disease and right carotid enterectomy. The patient came because of substernal chest pain and shortness of breath. GI was consulted because he has significant anemia and black tarry stool. The patient stated that this has been going on for the last 24-48 hours. The patient denied any other problem. He denied abdominal pain. He had no chest pain or syncope before. No dizziness or lightheaded. The patient also has mild elevation of his liver function tests. He remembers having a colonoscopy in the past but does not remember when. PAST MEDICAL HISTORY: Significant for: 1. COPD. 2. Hypertension. 3. CVA. 4. Carotid enterectomy. 5. Back surgery. 6. Penile implants. 7. Right hand surgery. 8. Left elbow surgery. 9. Bilateral cataract operation. 10. Bladder surgery. 11. Appendectomy. MEDICATIONS: Reviewed in the chart. FAMILY HISTORY: Significant for myocardial infarction at age of 49 with his dad. SOCIAL HISTORY: He was a smoker until a few months ago. He says has not drunk any alcohol since 2007. ALLERGIES: Multiple includin. BACTRIM. 2. FLAGYL. 3. CEFTIN. 4. PENICILLIN. 5. SULFA. 6. MYCINS. PHYSICAL EXAMINATION: GENERAL: Alert, oriented no acute distress at this time. VITAL SIGNS: Stable. HEAD, EYES, EARS, NOSE, THROAT: Pupils are reactive to light. NECK: Supple. CHEST: Clear. Rhonchi. CARDIAC: Regular rate and rhythm. No murmur or gallop. ABDOMEN: Soft, nondistended. Positive bowel sounds. EXTREMITIES: No edema, clubbing or cyanosis at this time. NEUROLOGIC: Neurologically intact with normal movement of all limbs. PSYCHOLOGIC: Appropriate. LABORATORY DATA: White count 14.6, up from 6.8 yesterday, hemoglobin 7.3, platelet 249,000. INR 1.0. Total bilirubin 3.7, AST 159, ALT 179, alkaline phosphatase 337, BUN 26, creatinine 1.1. Troponin 0.47. Lipid profile: Normal lipase was 816 and the repeat was 375 yesterday, total bilirubin was 2.1, AST 229, ALT 221, alkaline phosphatase 467. IMAGING STUDIES: Abdominal ultrasound is pending. ASSESSMENT AND PLAN: 1. This is a 71-year-old male with chest pain, possible myocardial infarction being transferred to the intensive care unit. The patient has black stool, most likely an upper GI bleed. The patient will be given packed RBCs as needed. He will need an upper endoscopy. He was cleared by cardiology. We will hold off on the colonoscopy because of the stress of preparation and the procedure and since it looks like most likely upper GI bleed. 2. Elevated liver function tests, unclear etiology. We will wait for the results of the ultrasound the patient had gram-negative rods with E-coli and it could be a urine infection. I cannot exclude cholangitis even though he is not having any pain in the abdomen. We will see how his liver enzymes doing tomorrow. Further plan depends on the findings on the ultrasound and how he is doing. MD ASTRID Petit/BRIJESH /3:06 PM /3:40 PM
[2017-01-11] MEDS: AZTREONAM INJ 2,000 MG in SODIUM CHLORIDE 0.9% INJ 100 ML IV SCH (15:52)
[2017-01-11] MEDS: INSULIN ASPART SUPPLEMENTAL SCALE SQ SCH ×2 (16:00→20:00)
[2017-01-11 16:36] LABS: BACTERIA, URINE RARE /hpf; BLOOD, URINE NEG (NEG); COMMENT (UR) CULT NOT INDICATED; CULTURE IF INDICATED CULT NOT INDICATED; GLUCOSE,URINE NEG (NEG); KETONE, URINE NEG (NEG); MUCUS URINE FEW /lpf (OCC); NITRITE,URINE NEG (NEG); PH, URINE 5.5 (5.0-8.5); SQUAMOUS EPITHELIAL CELL URINE <1 /hpf (0-5)
[2017-01-11 16:42] LABS: URINE COLOR ORANGE (YELLW/STRAW)
[2017-01-11] MEDS: RESP: ALBUTEROL 2.5 MG/IPRATROPIUM 0.5 MG NEB (SCH) NEB (17:58)
--- NOTE | 2017-01-11 18:59 | MB ---
cc: NATANAELDAVID ELLIOTT DATE OF CONSULTATION: 01/11/2017. REASON FOR CONSULTATION: Questionable cholecystitis. CONSULTING PHYSICIAN: Dr. Garcia. HISTORY OF PRESENT ILLNESS: This is a pleasant 71-year-old gentleman who recently got admitted to the hospital with some chest pain. He was being worked up by the it software developer. He was found be severely anemic. GI is seeing him for possible upper GI bleed. A CT obtained showed thickened of the gallbladder with some stones and elevated liver enzymes. Surgery was consulted for surgical opinion of the patient and radiologic imaging. The cardiologists are working him up presently and the GI people are working him up as well. REVIEW OF SYSTEMS: On review of systems, the patient just complained he came with chest pain under his sternum in the mid epigastric region and that is what brought him into the hospital. He was not having abdominal pain. Specifically, he has not had any fatty food intolerance or any pain associated with meals in the past. PAST MEDICAL HISTORY: His past medical history is fairly extensive for: 1. CVA in the past. 2. He has some mild dementia. 3. Vertigo. 4. Right carotid endarterectomy. 5. Hypercholesterolemia. 6. He has had an appendectomy in the past. 7. Back surgery. 8. Knee surgeries. 9. The only surgery on his abdomen was his appendix. 10. COPD. PHYSICAL EXAMINATION: GENERAL: On physical exam he is a pleasant gentleman. He is not very talkative about his medical condition. He answers in simple answers. He points to his chest when I ask him where he hurts. NECK: Otherwise supple. scar to the right CHEST: Clear. ABDOMEN: Obese. Soft. Mild soreness to the right upper quadrant to deep palpation. No masses are appreciated. EXTREMITIES: He moves all extremities well. NEUROLOGIC: He is somewhat slow and is not very talkative. He seems to be a little bit confused about all the doctors that are seeing him and what the plan is. It appears to be somewhat overwhelming to him. LABORATORY DATA: He had a hemoglobin of 7 and hematocrit of 23. He is getting blood as I interview him. His coags a couple of days ago were normal. Chemistry is fairly normal with all his liver enzymes elevated. His lipase was 816 from 362 earlier. IMAGING STUDIES: He had an ultrasound of his gallbladder which showed his common duct was distended. The gallbladder was thick. There is sludge in the lumen. He has some ascites as well. He had a CTA of his chest and they saw some thickening of the pancreas which could be pancreatitis and saw some kidney stones and possible a little pneumonia and diverticulosis. ASSESSMENT: A 71-year-old gentleman who was admitted for chest pain and who was found to have low hemoglobin and hematocrit and had some findings to suggest biliary colic with a possible choledocholithiasis maybe cholangitis. PLAN AT THIS TIME: 1. Continue working him up per GI. 2. Order an MRI to evaluate his common duct if possible, although he has some precautions of MRI on his chart for some reason. 3. Will follow along closely and see what GI says about they are going to scope him and possibly do an ERCP at the same setting. 4. Of course, we need cardiac clearance prior to any surgical intervention. MD LEFTY Gann/BRIJESH /5:32 PM /6:48 PM MTDD
[2017-01-11] MEDS: DILTIAZEM-CD 240 MG CAP ER PO SCH (20:11)
[2017-01-11] MEDS: DONEPEZIL HCL 5 MG TAB PO SCH (20:11)
[2017-01-11] MEDS: ATORVASTATIN 40 MG TAB PO SCH (20:11)
[2017-01-11] MEDS ORDERED: CHLORHEXIDINE GLUCONATE 2 % 1 PACK (2 CLOTHS)(extra cloths) TOP PRN (20:30)
[2017-01-11 21:30] LABS: HEMATOCRIT 29.2 % (39.0-51.0); REVIEW FLAG FINAL
[2017-01-12] VITALS (13 sets, daily range): BP systolic 120–172; BP diastolic 57–97; PULSE 52–68; RESP 14–32; TEMP 98.2–98.7; O2SAT 91–97
[2017-01-12] MEDS: INSULIN ASPART SUPPLEMENTAL SCALE SQ SCH
[2017-01-12] MEDS: AZTREONAM INJ 2,000 MG in SODIUM CHLORIDE 0.9% INJ 100 ML IV SCH ×3 (01:02→16:00)
[2017-01-12] MEDS: PANTOPRAZOLE INJ 80 MG in SODIUM CHLORIDE 0.9% INJ 100 ML IV SCH ×3 (01:02→20:38)
[2017-01-12] MEDS: ZOLPIDEM TARTRATE 10 MG TAB PO PRN ×2 (01:02→22:59)
[2017-01-12] MEDS: HYDROmorphone HCL PF 1 MG/ML VIAL IV PUSH PRN ×6 (01:03→22:59)
[2017-01-12] MEDS: TIGECYCLINE INJ 50 MG in SODIUM CHLORIDE 0.9% INJ 100 ML IV SCH ×2 (03:00→15:00)
[2017-01-12] MEDS: CHLORHEXIDINE GLUCONATE 2 % 1 PACK (2 CLOTHS)(taper/protocol) TOP SCH (04:00)
[2017-01-12 06:53] LABS: AUTOMATED NEUTROPHIL # 14.1 TH/MM3 (1.8-7.7); BASOPHIL % 0.2 % (0.0-2.0); EOSINOPHIL # 0.1 TH/MM3 (0-0.4); EOSINOPHIL % 0.4 % (0.0-4.0); HEMATOCRIT 29.5 % (39.0-51.0); LYMPH % 6.2 % (9.0-44.0); MEAN CELL VOLUME 79.2 FL (80.0-100.0); MEAN CORPUSCULAR HEMOGLOBIN 25.4 PG (27.0-34.0); MEAN CORPUSCULAR HGB CONC 32.1 % (32.0-36.0); MONO % 8.2 % (0.0-8.0); PLATELET COUNT 276 TH/MM3 (150-450); RED BLOOD COUNT 3.72 MIL/MM3 (4.50-5.90); WHITE BLOOD COUNT 16.6 TH/MM3 (4.0-11.0)
[2017-01-12 07:03] LABS: HEMO FLAGS AUTO DIFF
[2017-01-12 07:06] LABS: BICARBONATE 21.3 MEQ/L (21.0-32.0); POTASSIUM 4.2 MEQ/L (3.5-5.1)
[2017-01-12 07:07] LABS: INDIRECT BILIRUBIN 0.4 MG/DL (0.0-0.8); TOTAL BILIRUBIN ADULT 2.1 MG/DL (0.2-1.0)
[2017-01-12] MEDS: RESP: ALBUTEROL 2.5 MG/IPRATROPIUM 0.5 MG NEB (SCH) NEB ×3 (08:12→19:34)
--- NOTE | 2017-01-12 08:20 | HHI.FPPN ---
Subjective Remarks Pt seen and examined this morning. Afebrile overnight with no acute events per nursing. Pt endorsing substernal chest pain that is better than yesterday and RUQ and epigastric pain that is worse than yesterday. Reports his abdominal pain does not radiate to his back and is not associated with nausea or vomiting. Reports he had another episode of black tarry stool overnight but patient's mild dementia tends to distort his timing of events. Denies dysuria, hematuria, or urgency. Anxious to get everything figured out. (Nani Torre MD) Objective Vitals Vital Signs Date Time Temp Pulse Resp B/P Pulse Ox O2 Delivery O2 Flow Rate FiO2 01/12/17 08:13 93 21 01/12/17 06:00 58 01/12/17 04:00 57 01/12/17 04:00 98.7 57 32 120/57 92 01/12/17 02:00 52 01/12/17 00:00 54 01/12/17 00:00 98.3 54 24 135/64 91 01/11/17 22:00 62 01/11/17 20:00 63 15 171/80 94 01/11/17 20:00 98.6 62 14 126/60 93 01/11/17 20:00 60 01/11/17 19:49 95 21 01/11/17 18:00 96 21 01/11/17 16:00 98.7 57 18 125/60 97 01/11/17 13:00 98.5 59 38 117/55 98 01/11/17 12:00 98.8 60 18 128/60 96 01/11/17 11:38 58 18 123/57 96 I/O 01/11/17 01/11/17 01/11/17 01/12/17 01/12/17 01/12/17 07:00 15:00 23:00 07:00 15:00 23:00 Intake Total 1187 ml 1480 ml 2685 ml 826 ml Output Total 200 ml 350 ml 600 ml 300 ml Balance 987 ml 1130 ml 2085 ml 526 ml Intake Oral 0 ml 0 ml 240 ml 0 ml IV Total 481 ml 1230 ml 2195 ml 826 ml Packed Cells 323 ml 250 ml 250 ml Other 383 ml Output Urine Total 200 ml 350 ml 600 ml 300 ml # Bowel Movements 1 0 0 (Nani Torre MD) Result Diagram: 01/12/17 0512 01/12/17 0512 Imaging Abdomen Ultrasound 01/11/17 0000 Signed Impressions: Service Date/Time: Wednesday, January 11, 2017 13:45 - CONCLUSION: 1. Enlarged liver with mild ascites. 2. Gallbladder wall thickening with pericholecystic fluid, differential including acute cholecystitis and secondary changes related to liver disease. Negative sonographic Jackson's sign would favor the latter. 3. Sludge and stone in the gallbladder and common bile duct distention of uncertain etiology. Jose Browne MD Aorta CTA 01/10/17 1304 Signed Impressions: Service Date/Time: Tuesday, January 10, 2017 14:49 - CONCLUSION: 1. Atherosclerotic changes been no aneurysm or dissection. 2. Diverticulosis. 3. Slight inflammatory changes along the pancreatic head could be pancreatitis in the right clinical setting. 4. Bilateral punctate nonobstructing renal calculi. 5. Emphysema and minimal patchy density right upper lobe could be infectious or inflammatory. Gamal Solorzano MD Chest X-Ray 01/10/17 1203 Signed Impressions: Service Date/Time: Tuesday, January 10, 2017 12:38 - CONCLUSION: No acute cardiopulmonary disease identified. Stuart Augustin MD Objective Remarks GENERAL: WN, WD male laying comfortably in bed in NAD. SKIN: Warm and dry without rash. No significant jaundice. HEENT: Pupils equal and round. Mild scleral icterus. No conjunctival injection. MMM. HEART: Bradycardic with regular rhythm. Distant heart sounds. LUNGS: Diminished at the bases but otherwise clear without crackles or wheezing. ABDOMEN: Quiet bowel sounds. Soft with voluntary guarding and TTP over upper abdomen especially RUQ and epigastric regions. No rebound. Hepatomegaly. EXTREMITIES: No LE edema. Diminished pedal pulses. NEURO: Awake and alert. (Nani Torre MD) A/P Assessment and Plan 71 year old male with history of DM, COPD, HTN, mild dementia, TIA with CEA, spinal stenosis, and alcoholism (quit for nine years) was admitted on 01/10 for chest pain with mildly elevated troponins and three days of black tarry stools with suspected upper GI bleed. Cardiology and GI were originally consulted; heparin contraindicated due to bleed and GI planned on EGD. Patient was transfused one unit for hemoglobin of 7.3. Patient found to have two blood cultures growing Gram negative rods and given significant antibiotic allergies ID was consulted. Patient currently on Levaquin, Aztreonam, and Tigecycline. Patient also developed significant RUQ and epigastric pain with transient elevation in lipase and elevated LFTs and bilirubin. Given GNR bacteremia with RUQ pain, elevated LFTs, and low-grade fever it was suspected the patient may acute cholecystitis or cholangitis. General surgery was consulted who recommended continue GI evaluation with possible ERCP prior to making a decision about surgical intervention. Discharge Planning Unclear discharge timetable at this point. (Nani Torre MD) Attending Attestation Patient seen and examined. Case reviewed and discussed with the resident team. Agree with plan of care as discussed with me and documented in the resident note. he is stable and improving overall. appreciate help of all specialists (Alfreda Jacome MD) Problem List: (1) Bacteremia due to Gram-negative bacteria Status: Acute Plan: Patient growing Gram negative rods in two bottles with preliminary growth of E. coli in one. Given abundance of antibiotic allergies, ID was consulted for assistance in management. - Afebrile overnight (last elevated temperature was 100.9 on 01/10) - White count up to 16.6 with left shift - On Levaquin, Aztreonam, and Tigecycline - U/A with no signs of infection (negative nitrite, leukocyte esterase) - New elevation in LFTs and patient complaining of RUQ --> concern for possible acute cholecystitis vs. cholangitis. General surgery and GI on board - Repeat BC pending (2) GI bleed Status: Acute Plan: Patient presenting with three-days duration of black tarry stool with suspected upper GI bleed. Initial H&H 7.7/23.4 (hemoglobin in April 2016 was 14.3 ). - S/P 1 unit PRBC. H&H stable at 9.5/29.5 today - Hemodynamically stable - BUN elevated to 48 this AM - GI consulted; planning for EGD today - Continue Protonix gtt (3) Transaminitis Status: Acute Plan: AST and ALT elevated on admission to 229 and 221, respectively, with elevated total bili to 2.1 (normal values in April 2016). Patient also complaining of epigastric and RUQ pain. - LFTs trending down (AST 95, ALT 139 this AM) - Hepatitis panel pending - Abdominal U/S demonstrated an enlarged liver with mild ascites, GB wall thickening with pericholecystic fluid, sludge and stone in the GB, and CBD distention - General surgery consulted for evaluated of possible acute cholecystitis vs. cholangitis. Plan is to await further GI eval and possible ERCP. If plan is for surgical intervention, cardiology has cleared (4) Chest pain Status: Acute Plan: Patient presented with nonradiating substernal chest pain that continues to persist. Initial EKG showed possible atrial flutter with RVR and RBBB. Repeat EKG showed NSR with RBBB and nonspecific lateral T wave changes. Serial troponins mildly elevated: 0.12 > 0.48 > 0.47 > 0.35 with normal CK and CK-MB. - Cardiology consulted; heparin C/I given GI bleed and acute serious condition ( GI bleed, bacteremia) precludes catheterization - Chest pain not suspected to be cardiac in nature at this time. Echo done and not officially read in the EMR but Dr. Jack comments excellent LV function - Nitro PRN - Continue carvedilol - D/C atorvastatin since cholesterol is low and patient with transaminitis - Continue home Lisinopril 40 mg PO daily and Cardizem 480 mg QHS - Started low-dose Carvedilol 3.125 mg PO BID - Dilaudid 0.5 mg IV PRN chest pain since patient cannot tolerate morphine (5) COPD (chronic obstructive pulmonary disease) Status: Chronic Plan: Lungs clear on exam and maintaining adequate O2 sats. - Supplemental O2 PRN - DuoNeb Q6H - Incentive spirometry (6) Hypertension Status: Chronic Plan: Continue home Lisinopril. - Continue carvedilol started in the hospital - Monitor closely for signs of hemodynamic instability given GI bleed but so far patient has maintained normal to high BP (7) Dementia Status: Chronic Plan: Continue home Aricept. (8) Depression Status: Chronic Plan: Continue home Celexa. (9) History of alcohol abuse Status: Resolved Plan: In remission. No signs of withdrawal. (10) FEN/PPX Status: Acute Plan: - Fluids: NS KCl 20 meq at 100 ml/hr - Electrolytes: Monitor and replace as needed - Nutrition: NPO in anticipation of EGD - DVT prophylaxis: Anticoagulation C/I in setting of GI bleed. Bilateral SCDs sdw Dr. Ayaz Garcia (Nani Torre MD) Problem Qualifiers (1) COPD (chronic obstructive pulmonary disease): Qualified Code: J44.9 - Chronic obstructive pulmonary disease, unspecified COPD type (2) Hypertension: Qualified Code: I10 - Essential hypertension (3) Dementia: Qualified Code: F03.90 - Dementia without behavioral disturbance, unspecified dementia type Nani Torre MD Jan 12, 2017 08:20 Alfreda Jacome MD Jan 14, 2017 13:31
[2017-01-12 08:49] LABS: OVALOCYTES 1+ (NORMAL)
[2017-01-12 08:50] LABS: ACANTHOCYTES 1+ (NORMAL); PLATELET ESTIMATE SMEAR NORMAL (NORMAL); PLATELET MORPHOLOGY NORMAL (NORMAL)
[2017-01-12 08:51] LABS: SCAN/DIFF AUTO DIFF CONFIRMED
[2017-01-12] MEDS: CITALOPRAM HYDROBROMIDE 20 MG TAB PO SCH (09:00)
[2017-01-12] MEDS: ASPIRIN 81 MG CHEW TAB CHEW SCH (09:00)
[2017-01-12] MEDS: CARVEDILOL 3.125 MG TAB PO SCH ×2 (09:00→20:39)
--- NOTE | 2017-01-12 09:09 | PD.CARD.PN ---
Subjective Subjective Remarks Persistent, constant sharp CP. No dyspnea. Mild diffuse abdominal pain. No N/ V Objective Medications Item Value Date Time Aspirin 81 mg 01/11/17 1430 (Aspirin Chew) DAILY/CHEW 01/11/17 1451 Nitroglycerin 2 inch 01/11/17 1100 (Nitroglycerin Q1H PRN/TOP 01/11/17 1124 2% Oint) Carvedilol 3.125 mg 01/10/17 2100 (Coreg) Q12HR/PO 01/11/172010 Diltiazem HCl 480 mg 01/10/17 2100 (Cardizem Cd) HS/PO 01/11/172010 Vital Signs / I&O Vital Signs Date Time Temp Pulse Resp B/P Pulse Ox O2 Delivery O2 Flow Rate FiO2 01/12/17 08:13 93 21 01/12/17 06:00 58 01/12/17 04:00 57 01/12/17 04:00 98.7 57 32 120/57 92 01/12/17 02:00 52 01/12/17 00:00 54 01/12/17 00:00 98.3 54 24 135/64 91 01/11/17 22:00 62 01/11/17 20:00 63 15 171/80 94 01/11/17 20:00 98.6 62 14 126/60 93 01/11/17 20:00 60 01/11/17 19:49 95 21 01/11/17 18:00 96 21 01/11/17 16:00 98.7 57 18 125/60 97 01/11/17 13:00 98.5 59 38 117/55 98 01/11/17 12:00 98.8 60 18 128/60 96 01/11/17 11:38 58 18 123/57 96 I/O 01/11/17 01/11/17 01/11/17 01/12/17 01/12/17 01/12/17 07:00 15:00 23:00 07:00 15:00 23:00 Intake Total 1187 ml 1480 ml 2685 ml 826 ml Output Total 200 ml 350 ml 600 ml 300 ml Balance 987 ml 1130 ml 2085 ml 526 ml Intake Oral 0 ml 0 ml 240 ml 0 ml IV Total 481 ml 1230 ml 2195 ml 826 ml Packed Cells 323 ml 250 ml 250 ml Other 383 ml Output Urine Total 200 ml 350 ml 600 ml 300 ml # Bowel Movements 1 0 0 Physical Exam GENERAL: Well developed, well nourished. No acute distress. HEENT: Jugular venous pressure is normal. CHEST: Lungs clear to auscultation anteriorly. CARDIAC: Regular rate and rhythm without S3, S4, or murmur. ABDOMEN: Soft, nontender, no hepatosplenomegaly. Bowel sounds present. EXTREMITIES: No clubbing, cyanosis, or edema. Laboratory Laboratory Tests Test 01/11/17 01/11/17 01/11/17 01/11/17 09:10 11:33 12:00 14:45 Blood Type A POSITIVE Crossmatch Leukocyte-Reduced Red Blood Cells Blood Bank Comment Total Creatine Kinase 161 U/L Creatine Kinase MB 0.9 NG/ML Troponin I 0.35 NG/ML Lipase 375 U/L Nasal Screen MRSA (PCR) POSITIVE Urine Color ORANGE Urine Turbidity HAZY Urine pH 5.5 Urine Specific [place] 1.025 Urine Protein 30 mg/dL Urine Glucose (UA) NEG mg/dL Urine Ketones NEG mg/dL Urine Occult Blood NEG Urine Nitrite NEG Urine Bilirubin MOD Urine Urobilinogen 4.0 MG/DL Urine Leukocyte Esterase NEG Urine RBC 2 /hpf Urine WBC 4 /hpf Urine Squamous Epithelial <1 /hpf Cells Urine Bacteria RARE /hpf Urine Mucus FEW /lpf Microscopic Urinalysis Comment CULT NOT INDICATED Test 01/11/17 01/11/17 01/11/17 01/12/17 15:00 16:36 20:59 05:12 Hemoglobin 8.3 GM/DL 9.4 GM/DL 9.5 GM/DL Hematocrit 25.6 % 29.2 % 29.5 % Lactic Acid Level 1.3 mmol/L Phosphorus Level 3.9 MG/DL White Blood Count 16.6 TH/MM3 Red Blood Count 3.72 MIL/MM3 Mean Corpuscular Volume 79.2 FL Mean Corpuscular Hemoglobin 25.4 PG Mean Corpuscular Hemoglobin 32.1 % Concent Red Cell Distribution Width 19.0 % Platelet Count 276 TH/MM3 Mean Platelet Volume 8.2 FL Neutrophils (%) (Auto) 85.0 % Lymphocytes (%) (Auto) 6.2 % Monocytes (%) (Auto) 8.2 % Eosinophils (%) (Auto) 0.4 % Basophils (%) (Auto) 0.2 % Neutrophils # (Auto) 14.1 TH/MM3 Lymphocytes # (Auto) 1.0 TH/MM3 Monocytes # (Auto) 1.4 TH/MM3 Eosinophils # (Auto) 0.1 TH/MM3 Basophils # (Auto) 0.0 TH/MM3 CBC Comment AUTO DIFF Sodium Level 144 MEQ/L Potassium Level 4.2 MEQ/L Chloride Level 113 MEQ/L Carbon Dioxide Level 21.3 MEQ/L Anion Gap 10 MEQ/L Blood Urea Nitrogen 43 MG/DL Creatinine 1.18 MG/DL Estimat Glomerular Filtration 61 ML/MIN Rate Random Glucose 91 MG/DL Calcium Level 8.7 MG/DL Total Bilirubin 2.1 MG/DL Direct Bilirubin 1.7 MG/DL Indirect Bilirubin 0.4 MG/DL Aspartate Amino Transf 95 U/L (AST/SGOT) Alanine Aminotransferase 139 U/L (ALT/SGPT) Alkaline Phosphatase 370 U/L Total Protein 5.9 GM/DL Albumin 2.6 GM/DL Assessment and Plan Problem List: (1) Elevated troponin Assessment and Plan: Cardiac status overall stable. Suspect ongoing CP's are noncardiac in etiology as despite prolonged chest discomfort since admission, troponin levels trending downward, and CK's negative for MD. Echo shows excellent LV function. Overall doubt patient has sustained significant cardiac event. REC no further cardiac w/u; patient cleared for GI and surgical procedures from a cardiac standpoint (2) Hypertension Assessment and Plan: Stable. Normotensive. (3) Hyperlipidemia Assessment and Plan: Very low cholesterol levels. Rec no statin especially with hepatic insufficiency. Code Status full code Discussed Condition With patient Problem Qualifiers (1) Hypertension: Qualified Code: I10 - Essential hypertension Lefty Jack MD Jan 12, 2017 09:09
[2017-01-12] MEDS: NS + KCL 20 MEQ INJ 1,000 ML IV SCH ×3 (10:00→20:38)
[2017-01-12] MEDS: LEVOFLOXACIN 750 MG PREMIX INJ 150 ML IV SCH ×2 (11:00→12:55)
--- NOTE | 2017-01-12 11:00 | HHI.IDPN ---
Subjective Subjective Remarks Notes reviewed Temps ok Abdominal US report noted Seen by GI and surgery Still with CP and abdominal pain 2 BC on admission with GNR No new (+) BC WBC worse Antibiotics Tygacil Azactam Lines PIV Past Medical History DM Glaucoma Hypertension COPD Mild dementia Vertigo Hearing loss Previous TIA Benign meningeal tumor frontal lobe area Spinal stenosis "inoperable" Ruptured disc lumbar spine Neuropathy Shingles Multiple skin cancers Previous alcohol abuse Kidneys stones Past Surgical History Right knee open meniscectomy I&D of left knee abscess Appendectomy Multiple back surgeries Left elbow surgery for damaged ulnar nerve Kidney stone removal Penile implant surgery Bladder implant (patient described this as a pacemaker for his bladder) Cataract surgery right and left eyes Allergies: Coded Allergies: Bactrim (Verified Allergy, Severe, Anaphylaxis, 01/10/17) Ceftin (Verified Allergy, Severe, Anaphylaxis, 01/10/17) Flagyl (Verified Allergy, Severe, Fever, colitis, 01/10/17) Penicillin (Verified Allergy, Severe, Anaphylaxis, 01/10/17) Sulfa (Verified Allergy, Severe, Anaphylaxis, 01/10/17) MRI PRECAUTION (Verified Adverse Reaction, Severe, BLADDER STIMULATOR, ) BRAIN ONLY ON RECEIVE ONLY COIL, P.O. 01/11/17, DML Uncoded Allergies: mycins (Allergy, Severe, Fever, colitis, 12/15/13) surgical tape (Allergy, Severe, 12/15/13) Objective . Vital Signs Date Time Temp Pulse Resp B/P Pulse Ox O2 Delivery O2 Flow Rate FiO2 01/12/17 10:00 58 01/12/17 08:13 93 21 01/12/17 08:00 98.3 59 19 169/75 91 01/12/17 08:00 59 01/12/17 06:00 58 01/12/17 04:00 57 01/12/17 04:00 98.7 57 32 120/57 92 01/12/17 02:00 52 01/12/17 00:00 54 01/12/17 00:00 98.3 54 24 135/64 91 01/11/17 22:00 62 01/11/17 20:00 63 15 171/80 94 01/11/17 20:00 98.6 62 14 126/60 93 01/11/17 20:00 60 01/11/17 19:49 95 21 01/11/17 18:00 96 21 01/11/17 16:00 98.7 57 18 125/60 97 01/11/17 13:00 98.5 59 38 117/55 98 01/11/17 12:00 98.8 60 18 128/60 96 01/11/17 11:38 58 18 123/57 96 01/11/17 01/11/17 01/12/17 15:00 23:00 07:00 Intake Total 1480 ml 2685 ml 826 ml Output Total 350 ml 600 ml 300 ml Balance 1130 ml 2085 ml 526 ml Intake Oral 0 ml 240 ml 0 ml IV Total 1230 ml 2195 ml 826 ml Packed Cells 250 ml 250 ml Output Urine Total 350 ml 600 ml 300 ml # Bowel Movements 0 0 . Laboratory Tests Test 01/10/17 01/11/17 01/11/17 01/11/17 12:20 03:27 09:02 15:00 White Blood Count 6.8 TH/MM3 14.9 TH/MM3 Red Blood Count 2.88 MIL/MM3 2.72 MIL/MM3 Hemoglobin 7.7 GM/DL 7.3 GM/DL 7.5 GM/DL 8.3 GM/DL Hematocrit 23.4 % 22.1 % 23.0 % 25.6 % Mean Corpuscular Volume 81.3 FL 81.3 FL Mean Corpuscular Hemoglobin 26.6 PG 27.0 PG Mean Corpuscular Hemoglobin 32.8 % 33.2 % Concent Red Cell Distribution Width 15.3 % 14.8 % Platelet Count 299 TH/MM3 249 TH/MM3 Mean Platelet Volume 7.9 FL 7.5 FL Neutrophils (%) (Auto) 96.1 % 86.8 % Lymphocytes (%) (Auto) 2.9 % 5.0 % Monocytes (%) (Auto) 0.8 % 7.9 % Eosinophils (%) (Auto) 0.1 % 0.0 % Basophils (%) (Auto) 0.1 % 0.3 % Neutrophils # (Auto) 6.5 TH/MM3 13.0 TH/MM3 Lymphocytes # (Auto) 0.2 TH/MM3 0.7 TH/MM3 Monocytes # (Auto) 0.1 TH/MM3 1.2 TH/MM3 Eosinophils # (Auto) 0.0 TH/MM3 0.0 TH/MM3 Basophils # (Auto) 0.0 TH/MM3 0.0 TH/MM3 CBC Comment DIFF FINAL DIFF FINAL Differential Comment Test 01/11/17 01/12/17 20:59 05:12 Hemoglobin 9.4 GM/DL 9.5 GM/DL Hematocrit 29.2 % 29.5 % White Blood Count 16.6 TH/MM3 Red Blood Count 3.72 MIL/MM3 Mean Corpuscular Volume 79.2 FL Mean Corpuscular Hemoglobin 25.4 PG Mean Corpuscular Hemoglobin 32.1 % Concent Red Cell Distribution Width 19.0 % Platelet Count 276 TH/MM3 Mean Platelet Volume 8.2 FL Neutrophils (%) (Auto) 85.0 % Lymphocytes (%) (Auto) 6.2 % Monocytes (%) (Auto) 8.2 % Eosinophils (%) (Auto) 0.4 % Basophils (%) (Auto) 0.2 % Neutrophils # (Auto) 14.1 TH/MM3 Lymphocytes # (Auto) 1.0 TH/MM3 Monocytes # (Auto) 1.4 TH/MM3 Eosinophils # (Auto) 0.1 TH/MM3 Basophils # (Auto) 0.0 TH/MM3 CBC Comment AUTO DIFF Differential Comment AUTO DIFF CONFIRMED Platelet Estimate NORMAL Platelet Morphology Comment NORMAL Basophilic Stippling FAINT Ovalocytes 1+ Karmen Cells Acanthocytes 1+ Laboratory Tests Test 01/10/17 01/10/17 01/11/17 01/11/17 12:20 19:51 03:27 11:33 Sodium Level 142 MEQ/L 142 MEQ/L Potassium Level 3.1 MEQ/L 3.9 MEQ/L Chloride Level 108 MEQ/L 109 MEQ/L Carbon Dioxide Level 25.2 MEQ/L 24.5 MEQ/L Anion Gap 9 MEQ/L 9 MEQ/L Blood Urea Nitrogen 20 MG/DL 26 MG/DL Creatinine 1.13 MG/DL 1.11 MG/DL Estimat Glomerular Filtration 64 ML/MIN 65 ML/MIN Rate Random Glucose 192 MG/DL 99 MG/DL Lactic Acid Level 3.4 mmol/L 1.0 mmol/L Calcium Level 8.9 MG/DL 8.0 MG/DL Total Bilirubin 2.1 MG/DL 3.7 MG/DL Aspartate Amino Transf 229 U/L 159 U/L (AST/SGOT) Alanine Aminotransferase 221 U/L 179 U/L (ALT/SGPT) Alkaline Phosphatase 467 U/L 337 U/L Total Creatine Kinase 79 U/L 161 U/L Troponin I 0.12 NG/ML 0.48 NG/ML 0.47 NG/ML 0.35 NG/ML Total Protein 6.4 GM/DL 5.5 GM/DL Albumin 3.2 GM/DL 2.7 GM/DL Lipase 362 U/L 816 U/L 375 U/L Phosphorus Level 4.4 MG/DL Magnesium Level 1.7 MG/DL Triglycerides Level 59 MG/DL Cholesterol Level 91 MG/DL LDL Cholesterol 7 MG/DL HDL Cholesterol 72.5 MG/DL Cholesterol/HDL Ratio 1.25 RATIO Creatine Kinase MB 0.9 NG/ML Test 01/11/17 01/12/17 16:36 05:12 Lactic Acid Level 1.3 mmol/L Phosphorus Level 3.9 MG/DL Sodium Level 144 MEQ/L Potassium Level 4.2 MEQ/L Chloride Level 113 MEQ/L Carbon Dioxide Level 21.3 MEQ/L Anion Gap 10 MEQ/L Blood Urea Nitrogen 43 MG/DL Creatinine 1.18 MG/DL Estimat Glomerular Filtration 61 ML/MIN Rate Random Glucose 91 MG/DL Calcium Level 8.7 MG/DL Total Bilirubin 2.1 MG/DL Direct Bilirubin 1.7 MG/DL Indirect Bilirubin 0.4 MG/DL Aspartate Amino Transf 95 U/L (AST/SGOT) Alanine Aminotransferase 139 U/L (ALT/SGPT) Alkaline Phosphatase 370 U/L Total Protein 5.9 GM/DL Albumin 2.6 GM/DL Microbiology Date/Time Procedure Status Source Growth 01/10/17 19:00 Aerobic Blood Culture - Preliminary Resulted Blood Peripheral Gram Negative Por 01/10/17 19:00 Anaerobic Blood Culture - Preliminary Resulted Escherichia Coli 01/10/17 19:00 Aerobic Blood Culture - Preliminary Resulted Blood Peripheral Gram Negative Pro 01/10/17 19:00 Anaerobic Blood Culture - Preliminary Resulted Gram Negative Pro 01/11/17 15:00 Aerobic Blood Culture Received Blood Peripheral Pending 01/11/17 15:00 Anaerobic Blood Culture Received Blood Peripheral Pending 01/11/17 15:11 Aerobic Blood Culture Received Blood Peripheral Pending 01/11/17 15:11 Anaerobic Blood Culture Received Blood Peripheral Pending Imaging Abdomen Ultrasound 01/11/17 0000 Signed Impressions: Service Date/Time: Wednesday, January 11, 2017 13:45 - CONCLUSION: 1. Enlarged liver with mild ascites. 2. Gallbladder wall thickening with pericholecystic fluid, differential including acute cholecystitis and secondary changes related to liver disease. Negative sonographic Jackson's sign would favor the latter. 3. Sludge and stone in the gallbladder and common bile duct distention of uncertain etiology. Jose Browne MD Aorta CTA 01/10/17 1304 Signed Impressions: Service Date/Time: Tuesday, January 10, 2017 14:49 - CONCLUSION: 1. Atherosclerotic changes been no aneurysm or dissection. 2. Diverticulosis. 3. Slight inflammatory changes along the pancreatic head could be pancreatitis in the right clinical setting. 4. Bilateral punctate nonobstructing renal calculi. 5. Emphysema and minimal patchy density right upper lobe could be infectious or inflammatory. Gamal Solorzano MD Chest X-Ray 01/10/17 1203 Signed Impressions: Service Date/Time: Tuesday, January 10, 2017 12:38 - CONCLUSION: No acute cardiopulmonary disease identified. Stuart Augustin MD Physical Exam GENERAL: awake and alert, in no apparent distress. SKIN: Warm and dry. No generalized rash, no ecchymosis, no embolic lesions. HEENT: [place] conjunctivae, no petechia or hemorrhage. No injection or drainage. Moist oral mucosa. NECK: Trachea midline. No JVD or lymphadenopathy. Supple, nontender, no meningeal signs. CARDIOVASCULAR: Regular rate and rhythm without murmurs, gallops, or rubs. RESPIRATORY: Clear to auscultation. Breath sounds equal bilaterally. No wheezes , rales, or rhonchi. GASTROINTESTINAL: Abdomen soft, nondistended, has significant tenderness in RUQ , (+) Jackson's. Has some guarding, no rebound. MUSCULOSKELETAL: Extremities without clubbing, cyanosis, or edema. No calf tenderness. NEUROLOGICAL: Non-focal PSYCH: Normal affect, calm and cooperative LINE: PIV with no evidence of infection Assessment & Plan Remarks IMPRESSION GNR sepsis, source - has elevated LFTs (new) - suspicious for biliary tree source Chest pain, ?HI Multiple Abx allergies - all recorded as anaphylaxis, patient not sure RECOMMENDATION Continue IV Tygacil - for GPC and anaerobic coverage; patient with hx multiplle Abx allergies Vontnue IV Azactam for more GNR coverage Continue Levaquin GI and GS evaluating patient Cardiology has cleared patient for any procedure Follow C/S Monitor progress D/W Vanessa Overton MD Jan 12, 2017 11:00
[2017-01-12] MEDS ORDERED: ONDANSETRON HCL 4 MG/2 ML VIAL IV PUSH ONE (12:00)
--- NOTE | 2017-01-12 12:53 | HHI.CCPN ---
Subjective Remarks/Hospital Course Patient is a 72-year-old male with past medical history significant for diabetes, COPD, previous history of alcohol dependence now in remission, history of TIA was admitted to the [facility] service yesterday to 01/10/17 with chest pain starting a.m. day of admission. He describes it as a central chest pain with radiation to the left rib cage, also complaints of epigastric and right upper quadrant abdominal pain. Hemoglobin on admission was 7.7, white count was normal initially. History of black tarry stools about a week ago. His troponin peaked at 0.47, EKG showed nonspecific changes. Cardiology consulted recommends medical management. Because of lower GI bleeding antiplatelet therapy was not resumed. Blood cultures drawn yesterday growing Escherichia coli. Patient had fever of 100.9 on admission. With ongoing sepsis , anemia requiring transfusion and ongoing chest pain patient was transferred to the ICU and critical care medicine was consulted. Infectious diseases has started patient on Azactam as he is allergic to penicillin, and also Tigecyl and Levaquin I evaluated the patient in the ICU. He appears to be in [id number] distress due to pain, he is lying on his right side. Exam reveals right upper quadrant tenderness. Ultrasound of the abdomen is pending. CT aortogram done yesterday shows evidence of acute pancreatitis. AST/ALT 159/179, bilirubin was 3.7 and alkaline phosphatase is 337. Patient's right upper quadrant pain Escherichia coli sepsis and elevated liver enzymes are all concerning for acute cholecystitis. A stat abdominal ultrasound is pending at this time SUBJ 01/12: Patient lying in bed. Still have significant right upper quadrant and epigastric tenderness with voluntary guarding. GI and general surgery following ERCP planned for today. Liver enzymes trending down but white count has slightly increased from 14.9-16.6 Objective Vital Signs Date Time Temp Pulse Resp B/P Pulse Ox O2 Delivery O2 Flow Rate FiO2 01/12/17 10:00 58 01/12/17 08:13 93 21 01/12/17 08:00 98.3 19 169/75 01/10/17 18:58 Room Air 01/10/17 12:14 2 Intake and Output 01/11/17 01/11/17 01/12/17 08:00 16:00 00:00 Intake Total 1187 ml 1480 ml 2685 ml Output Total 200 ml 350 ml 600 ml Balance 987 ml 1130 ml 2085 ml Result Diagram: 01/12/1751101/12/[address] Aortogram-probable acute pancreatitis Objective Remarks GENERAL: This is a well-nourished, well-developed patient, in mild distress due to pain lying on his right side SKIN: No rashes, ecchymoses or lesions. HEAD: Atraumatic. Normocephalic. No temporal or scalp tenderness. EYES: Pupils equal round and reactive. Extraocular motions intact. ENT: Oral cavity is moist. Uvula midline. Airway patent. NECK: Trachea midline. No JVD or lymphadenopathy. Supple, nontender, no meningeal signs. CARDIOVASCULAR: Regular rate and rhythm without murmurs, gallops, or rubs. RESPIRATORY: Clear to auscultation. Breath sounds equal bilaterally. No wheezes , rales, or rhonchi. GASTROINTESTINAL: Abdomen soft, right upper quadrant tenderness and epigastric tenderness. No hepato-splenomegaly. Voluntary guarding MUSCULOSKELETAL: Extremities without clubbing, cyanosis, or edema. NEUROLOGICAL: Awake and alert. Motor and sensory grossly within normal limits. Five out of 5 muscle strength in all muscle groups. Normal speech. A/P Assessment and Plan NEURO: History of mild dementia History of TIA History of alcohol abuse -Dilaudid 0.5 mg every 4 hours when necessary for pain control As needed Dilaudid for pain. -Continue Aricept -On aspirin and Plavix at home. 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 Jack following, 2-D echo normal ejection fraction no wall motion abnormality per Dr. Jack' notes -No IV heparin secondary to lower GI bleed and anemia -Resume aspirin, hold Plavix -Continue antihypertensives, beta blockers hold RUPERT inhibitor GI: Acute cholecystitis, rule out cholangitis Acute pancreatitis -US abdomen finding along with liver enzymes with bilirubin and alkaline phosphatase,with E Coli bacteremia concerning for acute cholecystitis -Gen. surgery and GI following -ERCP today, broad-spectrum antibiotics -IV Protonix 8 mg per hour. : -Monitor renal function closely. Strict intake output ID: Severe sepsis Escherichia coli bacteremia Probable acute cholecystitis, cholangitis cannot be ruled out -Infectious disease following. Started on Azactam, Tygacil and Levaquin -Follow up on UA with culture -ERCP today -Gen. surgery and GI following HEME: Anemia requiring transfusion -Monitor CBC, CMP, coags -Transfuse 1 unit PRBC ENDO: -Electrolyte replacement per protocol -Sliding-scale insulin low scale PROPH: -Bilateral lower extremity SCDs/TEDs. Holding off chemical DVT prophylaxis due to lower GI bleed,and pending surgical evaluation for acute cholecystitis -Continue Protonix gtt. LINES: -Utilize peripheral IVs, central line if needed Level 2 Phong Garcia MD Jan 12, 2017 12:53
--- NOTE | 2017-01-12 13:11 | HHI.PR ---
Subjective Subjective Notes DAILY PROGRESS NOTE FOR SURGICAL ATTENDING, DR. RICHARD DAVIS Jaleesa buenrostro hurts in the RUQ Objective Vitals/I&O Vital Signs Date Time Temp Pulse Resp B/P Pulse Ox O2 Delivery O2 Flow Rate FiO2 01/12/17 10:00 58 01/12/17 08:13 93 21 01/12/17 08:00 98.3 19 169/75 01/10/17 18:58 Room Air 01/10/17 12:14 2 Labs Laboratory Tests Test 01/11/17 01/11/17 01/11/17 01/11/17 14:45 15:00 16:36 20:59 Urine Color ORANGE Urine Turbidity HAZY Urine pH 5.5 Urine Specific [place] 1.025 Urine Protein 30 Urine Glucose (UA) NEG Urine Ketones NEG Urine Occult Blood NEG Urine Nitrite NEG Urine Bilirubin MOD Urine Urobilinogen 4.0 Urine Leukocyte Esterase NEG Urine RBC 2 Urine WBC 4 Urine Squamous Epithelial <1 Cells Urine Bacteria RARE Urine Mucus FEW Microscopic Urinalysis Comment CULT NOT INDICATED Hemoglobin 8.3 9.4 Hematocrit 25.6 29.2 Hepatitis A IgM Antibody NEGATIVE Hepatitis B Surface Antigen NEGATIVE Hepatitis B Core IgM Antibody NEGATIVE Hepatitis C Antibody NEGATIVE Lactic Acid Level 1.3 Phosphorus Level 3.9 Test 01/12/17 05:12 White Blood Count 16.6 Red Blood Count 3.72 Hemoglobin 9.5 Hematocrit 29.5 Mean Corpuscular Volume 79.2 Mean Corpuscular Hemoglobin 25.4 Mean Corpuscular Hemoglobin 32.1 Concent Red Cell Distribution Width 19.0 Platelet Count 276 Mean Platelet Volume 8.2 Neutrophils (%) (Auto) 85.0 Lymphocytes (%) (Auto) 6.2 Monocytes (%) (Auto) 8.2 Eosinophils (%) (Auto) 0.4 Basophils (%) (Auto) 0.2 Neutrophils # (Auto) 14.1 Lymphocytes # (Auto) 1.0 Monocytes # (Auto) 1.4 Eosinophils # (Auto) 0.1 Basophils # (Auto) 0.0 CBC Comment AUTO DIFF Differential Comment AUTO DIFF CONFIRMED Platelet Estimate NORMAL Platelet Morphology Comment NORMAL Basophilic Stippling FAINT Ovalocytes 1+ [place]arm[place] Cells Acanthocytes 1+ Sodium Level 144 Potassium Level 4.2 Chloride Level 113 Carbon Dioxide Level 21.3 Anion Gap 10 Blood Urea Nitrogen 43 Creatinine 1.18 Estimat Glomerular Filtration 61 Rate Random Glucose 91 Calcium Level 8.7 Total Bilirubin 2.1 Direct Bilirubin 1.7 Indirect Bilirubin 0.4 Aspartate Amino Transf 95 (AST/SGOT) Alanine Aminotransferase 139 (ALT/SGPT) Alkaline Phosphatase 370 Total Protein 5.9 Albumin 2.6 Date/Time Procedure Status Source Growth 01/11/17 15:11 Aerobic Blood Culture - Preliminary Resulted Blood Peripheral NO GROWTH IN 1 DAY 01/11/17 15:11 Anaerobic Blood Culture - Preliminary Resulted Blood Peripheral NO GROWTH IN 1 DAY Radiology Last Impressions Abdomen Ultrasound 01/11/17 0000 Signed Impressions: Service Date/Time: Wednesday, January 11, 2017 13:45 - CONCLUSION: 1. Enlarged liver with mild ascites. 2. Gallbladder wall thickening with pericholecystic fluid, differential including acute cholecystitis and secondary changes related to liver disease. Negative sonographic Jackson's sign would favor the latter. 3. Sludge and stone in the gallbladder and common bile duct distention of uncertain etiology. Jose Browne MD Aorta CTA 01/10/17 1304 Signed Impressions: Service Date/Time: Tuesday, January 10, 2017 14:49 - CONCLUSION: 1. Atherosclerotic changes been no aneurysm or dissection. 2. Diverticulosis. 3. Slight inflammatory changes along the pancreatic head could be pancreatitis in the right clinical setting. 4. Bilateral punctate nonobstructing renal calculi. 5. Emphysema and minimal patchy density right upper lobe could be infectious or inflammatory. Gamal Solorzano MD Chest X-Ray 01/10/17 1203 Signed Impressions: Service Date/Time: Tuesday, January 10, 2017 12:38 - CONCLUSION: No acute cardiopulmonary disease identified. 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 RICHARD DAVIS 71 yo male with gi bleed, elevated LFT, gallstones, positive blood cults with sepsis, anemia and CAD High surgical risk Discussed with family and Pt about cholecystotomy tube to treat him in his acute phase discussed with Dr Garcia and dr Mcbride to have EGD/ercp today pt had been on plavix stopped 3 or 4 days ago i think placing cholecystotomy tube is worth the risk at this point certainly less risky than operative intervention. Problem Qualifiers (1) Dementia: Qualified Code: F03.90 - Dementia without behavioral disturbance, unspecified dementia type (2) COPD (chronic obstructive pulmonary disease): Qualified Code: J44.9 - Chronic obstructive pulmonary disease, unspecified COPD type Richard Davis MD Jan 12, 2017 13:11
[2017-01-12] MEDS ORDERED: AMBI10TA PO (13:24)
[2017-01-12] MEDS ORDERED: PROPOFOL 200 MG/20 ML AMP IV ONE (14:35)
[2017-01-12] MEDS ORDERED: IOHEXOL 350 MG/ML 100 ML BTL (for RAD DIAG) OTHER ONE (14:44)
[2017-01-12] MEDS ORDERED: GLUCAGON 1 MG/ML VIAL IV ONE (14:58)
--- NOTE | 2017-01-12 15:59 | EC ---
Study Study Date:01/12/2017 STUDY CONCLUSIONS SUMMARY - Left ventricle: The cavity size was normal. Wall thickness was increased in a pattern of mild LVH. Systolic function was normal. The estimated ejection fraction was 55%. Wall motion was normal; there were no regional wall motion abnormalities. - Mitral valve: Mildly calcified annulus. - Left atrium: The atrium was mildly dilated. If LV function is below 40, please consider prescribing an ACEI or ARB or document rationale for non-use. PROCEDURE DATA STUDY STATUS: Elective. Procedure: Transthoracic echocardiography. Image quality was good. Scanning was performed from the parasternal, apical, and subcostal acoustic windows. Study completion: The patient tolerated the procedure well. Transthoracic echocardiography. M-mode, complete 2D, complete spectral Doppler, and color Doppler. Height: Height: 71in. Weight: Weight: 186.6lb. Body mass index: BMI: 26.1kg/m^2. Body surface area: BSA: 2.05m^2. Patient status: Inpatient. CARDIAC ANATOMY LEFT VENTRICLE: The cavity size was normal. Wall thickness was increased in a pattern of mild LVH. Systolic function was normal. The estimated ejection fraction was 55%. Wall motion was normal; there were no regional wall motion abnormalities. AORTIC VALVE: Trileaflet; normal thickness leaflets. Doppler: Transvalvular velocity was within the normal range. There was no stenosis. No regurgitation. Valve area: 3.69cm^2(VTI). Indexed valve area: 1.8cm^2/m^2 (VTI). Valve area: 3.27cm^2 (Vmax). Indexed valve area: 1.6cm^2/m^2 (Vmax). Mean gradient: 5mm Hg (S). AORTA: Aortic root: The aortic root was normal in size. MITRAL VALVE: Mildly calcified annulus. Doppler: Transvalvular velocity was within the normal range. There was no evidence for stenosis. Trace regurgitation. LEFT ATRIUM: The atrium was mildly dilated. RIGHT VENTRICLE: The cavity size was normal. Wall thickness was normal. PULMONIC VALVE: Doppler: Transvalvular velocity was within the normal range. There was no evidence for stenosis. No regurgitation. TRICUSPID VALVE: Structurally normal valve. Doppler: Transvalvular velocity was within the normal range. Trace regurgitation. PULMONARY ARTERY: The main pulmonary artery was normal-sized. Systolic pressure was within the normal range. RIGHT ATRIUM: The atrium was normal in size. PERICARDIUM: There was no pericardial effusion. SYSTEMIC VEINS: Inferior vena cava: The vessel was normal in size. Patient weight: 186.6lb _Ejection fraction:_ 65-75% _Fractional shortening:_ 32% up to 5Kg 5-11.5Kg 11.6-22.9Kg 23-45Kg 45-57Kg Aortic Root 7-13 <17 13-22 17-27 17-27 LA diam 6-13 <23 24-38 33-47 37-40 RVID 10-17 7-15 7-15 7-18 8-17 LVIDd 12-22 <32 24-38 33-47 37-40 LVPW 2-4 3-6 5-7 6-8 7-8 IVS 2-4 3-6 5-7 6-8 7-8 BASIC MEASUREMENTS ADULT NORMAL Left ventricle LV internal dimension, ED, chordal 44.9 mm 43-52 level, PLAX LV internal dimension, ES, chordal 34.2 mm 23-38 level, PLAX Fractional shortening, chordal level, *24 % >29 PLAX LV posterior wall thickness, ED 11.9 mm IVS/LVPW ratio, ED 1 <1.3 Ventricular septum Septal thickness, ED 11.9 mm Aortic valve Leaflet separation 22 mm 15-26 Aorta Root diameter, ED 46 mm Left atrium Anterior-posterior dimension 42 mm Anterior-posterior dimension index 2.05 cm/m^2 <2.2 BASIC MEASUREMENTS ADULT NORMAL Aortic valve Leaflet separation 22 mm 15-26 DOPPLER MEASUREMENTS ADULT NORMAL Aortic valve Peak velocity, S 153 cm/s Mean velocity, S 101 cm/s VTI, S 29.8 cm Mean gradient, S 5 mm Hg Valve area, VTI 3.69 cm^2 Valve area index, VTI 1.8 cm^2/m^2 Valve area, Vmax 3.27 cm^2 Valve area index, Vmax 1.6 cm^2/m^2 LEGEND: Mean values are shown as u=mean value. Asterisk (*) murcia values outside specified normal range. Prepared and signed by Karen Gracia [id number]
--- NOTE | 2017-01-12 16:12 | RADRPT ---
EXAM DATE/TIME: 01/12/2017 15:24 [facility] COMPARISON: No previous studies available for comparison. INDICATIONS : Obstruction. FLUORO TIME: 4.0 minutes IMAGE COUNT: 5 CONTRAST: Instilled by Ordering Physician MEDICAL HISTORY : Pancreatitis. Stroke. Diabetes mellitus type II. SURGICAL HISTORY : Appendectomy. Right endarectomy. Lithotripsy ENCOUNTER: Initial ACUITY: 1 day PAIN SCORE: Non-responsive. LOCATION: abdomen. FINDINGS: An ERCP was performed by the ordering physician. The images demonstrate dilated common bile duct and intrahepatic ducts. Later images demonstrates dec rease in caliber of common bile duct. CONCLUSION: ERCP as above. Gamal Solorzano MD on January 12, 2017 at 16:09 Board Certified Radiologist. This report was verified electronically.
[2017-01-12] MEDS ORDERED: fentaNYL CITRATE 250 MCG/5 ML AMP ONE (17:50)
[2017-01-12] MEDS ORDERED: MIDAZOLAM HCL 5 MG/5 ML VIAL ONE (17:50)
--- NOTE | 2017-01-12 18:24 | PD.RAD ---
Post Procedure Progress Note Pre Procedure Diagnosis: (1) Acute cholecystitis due to biliary calculus Post Procedure Diagnosis: (1) Acute cholecystitis due to biliary calculus Procedure Date: Jan 12, 2017 Supervising Radiologist: Yo Mcbride Proceduralist/Assist: Ryan Jimenez, RT(R), Gregoria Barber RT(R)() Anesthesia: Conscious Sedation Plan of Activity Patient to Unit: Critical Care Patient Condition: Fair See PACS Report for procedural detail/treatment Drainage Procedure Procedure 1 Imaging Guidance: Fluoroscopy Procedure Type: Cholecystostomy Procedure: Placement Fluid Description: BilJourdan pfeiffer David B. MD Jan 12, 2017 18:24
[2017-01-12] MEDS ORDERED: IOHEXOL 350 MG/ML 50 ML BTL (for RAD DIAG) OTHER ONE (18:38)
[2017-01-12] MEDS: DONEPEZIL HCL 5 MG TAB PO SCH (20:39)
[2017-01-12] MEDS: DILTIAZEM-CD 240 MG CAP ER PO SCH (20:39)
[2017-01-12] MEDS: BUDESONIDE-FORMOTEROL 160/4.5 MCG INHALER INH SCH (21:35)
[2017-01-12] MEDS: hydrALAZINE HCL 20 MG/ML VIAL IV PRN (22:23)
--- NOTE | 2017-01-12 22:47 | PD.PROCEDR ---
GI Procedure REFERRING PHYSICIAN Dr. Jacome PROCEDURE PERFORMED EGD with biopsy followed by ERCP with sphincterotomy and balloon extraction INDICATION FOR PROCEDURE Anemia GI bleed elevated liver enzymes PROCEDURE: The procedure, risks and benefits were discussed with Mr. Garcia and informed consent was obtained. Anesthesia sedated him with Diprivan. He was placed in the left lateral decubitus position. EGD: The Pentax videoscope was introduced through the oropharynx and advanced to the second portion of the duodenum under direct visualization. Retroflexion was performed in the stomach. FINDINGS: The esophagus this was normal The stomach there was patchy erythema in the antrum but no ulcerations no erosions no blood or bleeding the rest of the gastric mucosa was unremarkable antral biopsies were taken for further evaluation also noted was a small diverticulum in the fundus The duodenum this was normal ERCP: Patient was placed in a prone position. The Pentax videoscope was introduced through the oropharynx and advanced to the second portion of the duodenum where the ampula was identified. [] FINDINGS: The ampulla this was bulging and floppy at the edge of a duodenal diverticulum it was difficult to cannulate and so a needle-knife was performed and we were then able to cannulate the common bile duct and the intrahepatics were dilated significantly no obvious filling defects the sphincterotomy was completed then using a 15 mm balloon I was able to sweep the bile duct with no obvious stones the bile appeared to be clear and thus this rules out cholangitis and at this point the procedure was terminated ESTIMATED BLOOD LOSS: None SPECIMENS REMOVED: Gastric biopsy COMPLICATIONS: None IMPRESSION: Gastric diverticulum Gastritis Duodenal diverticulum Dilated common bile duct PLAN: Supportive care Await biopsy Robby Alberto MD Jan 12, 2017 22:47
[2017-01-13] VITALS (14 sets, daily range): BP systolic 153–166; BP diastolic 71–75; PULSE 58–73; RESP 12–20; TEMP 98.1–99.7; O2SAT 95–98
[2017-01-13] MEDS: HYDROmorphone HCL PF 1 MG/ML VIAL IV PUSH PRN ×6 (01:23→20:47)
[2017-01-13] MEDS: AZTREONAM INJ 2,000 MG in SODIUM CHLORIDE 0.9% INJ 100 ML IV SCH ×3 (01:23→18:14)
[2017-01-13] MEDS: CHLORHEXIDINE GLUCONATE 2 % 1 PACK (2 CLOTHS)(taper/protocol) TOP SCH (04:00)
[2017-01-13] MEDS: TIGECYCLINE INJ 50 MG in SODIUM CHLORIDE 0.9% INJ 100 ML IV SCH ×2 (05:10→15:00)
[2017-01-13] MEDS: PANTOPRAZOLE INJ 80 MG in SODIUM CHLORIDE 0.9% INJ 100 ML IV SCH (05:10)
[2017-01-13] MEDS: NS + KCL 20 MEQ INJ 1,000 ML IV SCH ×2 (05:10→14:38)
[2017-01-13 06:14] LABS: AUTOMATED NEUTROPHIL # 9.6 TH/MM3 (1.8-7.7); BASOPHIL % 0.3 % (0.0-2.0); EOSINOPHIL % 0.1 % (0.0-4.0); HEMATOCRIT 29.4 % (39.0-51.0); HEMO FLAGS DIFF FINAL; LYMPHOCYTE # 0.9 TH/MM3 (1.0-4.8); MEAN CORPUSCULAR HEMOGLOBIN 25.5 PG (27.0-34.0); MEAN CORPUSCULAR HGB CONC 32.3 % (32.0-36.0); MONO % 7.5 % (0.0-8.0); NEUT % 84.1 % (16.0-70.0); PLATELET COUNT 259 TH/MM3 (150-450); RED BLOOD COUNT 3.72 MIL/MM3 (4.50-5.90); RED CELL DISTRIBUTION WIDTH 18.9 % (11.6-17.2); WHITE BLOOD COUNT 11.4 TH/MM3 (4.0-11.0)
[2017-01-13] MEDS: hydrALAZINE HCL 20 MG/ML VIAL IV PRN ×2 (06:17→18:15)
[2017-01-13 06:41] LABS: ALKALINE PHOSPHATASE 380 U/L (45-117); ALT (GPT) 108 U/L (12-78); ANION GAP 8 MEQ/L (5-15); AST (GOT) 58 U/L (15-37); BICARBONATE 21.1 MEQ/L (21.0-32.0); BLOOD UREA NITROGEN 36 MG/DL (7-18); CHLORIDE 116 MEQ/L (98-107); GLOMERULAR FILTRATION RATE 66 ML/MIN (>89); POTASSIUM 4.3 MEQ/L (3.5-5.1); SODIUM (NA) 145 MEQ/L (136-145); TOTAL BILIRUBIN ADULT 1.3 MG/DL (0.2-1.0)
[2017-01-13] MEDS: RESP: ALBUTEROL 2.5 MG/IPRATROPIUM 0.5 MG NEB (SCH) NEB ×3 (07:35→19:40)
--- NOTE | 2017-01-13 08:23 | HHI.FPPN ---
Subjective Remarks Pt seen and examined this morning. S/P EGD, ERCP with sphincterotomy, and percutaneous cholecystomy tube placement yesterday. Afebrile overnight and reports abdominal pain is mildly better than yesterday. Denies N/V. Reports, "I' m starving." Substernal chest pain still present. Denies calf pain. Left foot noted to be significantly colder than the right with barely palpable pulse; patient denies any pain in his LLE or foot and is able to wiggle toes without issues. (Nani Torre MD) Objective Vitals Vital Signs Date Time Temp Pulse Resp B/P Pulse Ox O2 Delivery O2 Flow Rate FiO2 01/13/17 07:36 96 01/13/17 06:00 65 01/13/17 04:00 61 01/13/17 04:00 99.1 61 15 153/71 96 01/13/17 02:00 64 01/13/17 00:00 70 01/13/17 00:00 99.7 70 13 160/74 97 01/12/17 22:00 68 01/12/17 20:00 98.2 60 23 172/97 97 01/12/17 20:00 60 01/12/17 19:34 97 Nasal Cannula 2.00 01/12/17 16:30 98.7 63 20 168/78 96 01/12/17 16:15 62 15 152/74 95 Nasal Cannula 3 01/12/17 16:00 63 01/12/17 16:00 66 14 165/76 95 Nasal Cannula 3 01/12/17 15:45 67 14 162/78 96 Simple Mask 8 01/12/17 15:43 98.3 67 13 151/79 96 Simple Mask 8 01/12/17 12:00 98.7 59 14 169/81 94 01/12/17 12:00 60 01/12/17 10:00 58 I/O 01/12/17 01/12/17 01/12/17 01/13/17 01/13/17 01/13/17 07:00 15:00 23:00 07:00 15:00 23:00 Intake Total 826 ml 597 ml 480 ml 821 ml Output Total 300 ml 350 ml 430 ml 730 ml Balance 526 ml 247 ml 50 ml 91 ml Intake Oral 0 ml 0 ml IV Total 826 ml 597 ml 80 ml 821 ml Other 400 ml Output Urine Total 300 ml 350 ml 350 ml 550 ml Drainage Total 80 ml 180 ml Estimated Blood Loss 0 ml # Bowel Movements 0 1 1 (Nani Torre MD) Result Diagram: 01/13/1744401/13/17444 Objective Remarks GENERAL: WN, WD male laying comfortably in bed in NAD. SKIN: Warm and dry without rash. No significant jaundice. HEENT: Pupils equal and round. Mild scleral icterus. No conjunctival injection. MMM. HEART: Bradycardic with regular rhythm. Distant heart sounds. LUNGS: Diminished at the bases but otherwise clear without crackles or wheezing. ABDOMEN: Quiet bowel sounds. Drain in RUQ with <100 cc bilious output. Abdomen soft with voluntary guarding and TTP over upper abdomen especially RUQ and epigastric regions. EXTREMITIES: No LE edema. L pedal pulses barely palpable, right pedal pulses 2+ . L foot cold, R foot warm to touch. No discoloration of toes or ulcers noted bilaterally. NEURO: Awake and alert. (Nani Torre MD) A/P Assessment and Plan 71 year old male with history of DM, COPD, HTN, mild dementia, TIA with CEA, spinal stenosis, and alcoholism (quit for nine years) was admitted on 01/10 for chest pain with mildly elevated troponins and three days of black tarry stools with suspected upper GI bleed. Cardiology and GI were originally consulted; heparin contraindicated due to bleed and GI planned on EGD. Patient was transfused 3 units for hemoglobin of 7.3. Patient found to have two blood cultures growing E. coli and given significant antibiotic allergies ID was consulted. Patient currently on Levaquin, Aztreonam, and Tigecycline. Bacteremia suspected to be secondary to acute cholecystitis given patient's concomitant RUQ, low-grade fever, and elevated LFTs and bilirubin. GI and general surgery also consulted. Patient underwent EGD yesterday showing gastritis as well as ERCP with sphincterotomy. He is high-risk surgical candidate at this time and it was decided to manage the cholecystitis with cholecystomy tube which was placed yesterday. Today the LFTs and white count are downtrending and the patient is improving. Once critical care signs off we can transfer to med/surg floor. Discharge Planning Unclear discharge timetable at this point. (Nain Torre MD) Attending Attestation Patient seen and examined. Case reviewed and discussed with the resident team. Agree with plan of care as discussed with me and documented in the resident note. he is really improving with drainage of his gallbladder and abx (Alfreda Jacome MD) Problem List: (1) E coli bacteremia Status: Acute Plan: Patient growing E. coli in both initial blood cultures. With elevated LFTs, bilirubin, white count, and RUQ pain, suspected acute cholecystitis (see plans below). - Afebrile overnight (last elevated temperature was 100.9 on 01/10) - White count up to 16.6 with left shift yesterday but trending down today to 11.4 - Given abundance of antibiotic allergies, ID was consulted for assistance in management. On Levaquin, Aztreonam, and Tigecycline - U/A with no signs of infection (negative nitrite, leukocyte esterase) - Repeat BC no growth at one day (2) Acute cholecystitis Status: Acute Plan: AST and ALT elevated on admission to 229 and 221, respectively, with elevated total bili to 2.1 (normal values in April 2016). Patient also complaining of epigastric and RUQ pain. Abdominal U/S demonstrated an enlarged liver with mild ascites, GB wall thickening with pericholecystic fluid, sludge and stone in the GB, and CBD distention. - ERCP with sphincterotomy yesterday with GI. No gallstones in the CBD and clear bile was visualized; cholangitis ruled out - General surgery consulted; patient high-risk for surgery therefore IR consulted and patient underwent cholecystostomy tube yesterday - Drain putting out <100 cc bile this AM - LFTs trending down (AST 58, ALT 108 this AM) - Total bili down to 1.3 - Pain control with Dilaudid 0.5 mg Q2H PRN (3) GI bleed Status: Acute Plan: Patient presenting with three-days duration of black tarry stool with suspected upper GI bleed. Initial H&H 7.7/23.4 (hemoglobin in April 2016 was 14.3 ). GI consulted and EGD showed gastritis. - S/P 3 unit PRBCs. H&H stable at 9.5/29.4 today - Hemodynamically stable - D/C Protonix drip and transition to 40 mg IV Q12H (4) Peripheral arterial disease Status: Chronic Plan: Left foot cold to touch and diminished pulse. No pain or discoloration. - Doppler pulse and lita area - Consider ABIs as outpatient - Pt not a vascular surgery candidate at this time (5) Chest pain Status: Acute Plan: Patient presented with nonradiating substernal chest pain that continues to persist. Initial EKG showed possible atrial flutter with RVR and RBBB. Repeat EKG showed NSR with RBBB and nonspecific lateral T wave changes. Serial troponins mildly elevated: 0.12 > 0.48 > 0.47 > 0.35 with normal CK and CK-MB. - Cardiology consulted; heparin C/I given GI bleed and acute serious condition ( GI bleed, bacteremia) precludes catheterization - Chest pain not suspected to be cardiac in nature at this time. Echo done showing mild LVH and EF 55% - Nitro PRN - Continue carvedilol - D/C atorvastatin since cholesterol is low and patient with transaminitis - Continue home Lisinopril 40 mg PO daily and Cardizem 480 mg QHS - Continue low-dose Carvedilol 3.125 mg PO BID (started this hospitalization) - Dilaudid 0.5 mg IV PRN chest pain since patient cannot tolerate morphine (6) Hypertension Status: Chronic Plan: Continue home Lisinopril. - Continue carvedilol started in the hospital - Monitor closely for signs of hemodynamic instability given GI bleed but so far patient has maintained normal to high BP - Hydralazine PRN (7) COPD (chronic obstructive pulmonary disease) Status: Chronic Plan: Not in exacerbation and CXR with no acute disease. - Supplemental O2 PRN - DuoNeb Q6H - Incentive spirometry (8) Dementia Status: Chronic Plan: Continue home Aricept. (9) Depression Status: Chronic Plan: Continue home Celexa. (10) History of alcohol abuse Status: Resolved Plan: In remission. No signs of withdrawal. (11) FEN/PPX Status: Acute Plan: - Fluids: NS KCl 20 meq at 100 ml/hr. Decrease once tolerating PO - Electrolytes: Monitor and replace as needed - Nutrition: Clear liquids and advance as tolerated - DVT prophylaxis: Anticoagulation C/I in setting of GI bleed. Bilateral SCDs dw Dr. Jacome (Nani Torre MD) Problem Qualifiers (1) Hypertension: Qualified Code: I10 - Essential hypertension (2) COPD (chronic obstructive pulmonary disease): Qualified Code: J44.9 - Chronic obstructive pulmonary disease, unspecified COPD type (3) Dementia: Qualified Code: F03.90 - Dementia without behavioral disturbance, unspecified dementia type Nani Torre MD Jan 13, 2017 08:23 Alfreda Jacome MD Jan 14, 2017 13:35
[2017-01-13] MEDS: BUDESONIDE-FORMOTEROL 160/4.5 MCG INHALER INH SCH ×2 (09:00→20:53)
[2017-01-13] MEDS: LEVOFLOXACIN 750 MG PREMIX INJ 150 ML IV SCH (09:46)
[2017-01-13] MEDS: CITALOPRAM HYDROBROMIDE 20 MG TAB PO SCH (09:47)
[2017-01-13] MEDS: ASPIRIN 81 MG CHEW TAB CHEW SCH (09:47)
[2017-01-13] MEDS: CARVEDILOL 3.125 MG TAB PO SCH ×2 (09:47→20:46)
[2017-01-13] MEDS: LISINOPRIL 20 MG TAB PO SCH (09:47)
--- NOTE | 2017-01-13 10:12 | HHI.CCPN ---
Subjective Remarks/Hospital Course Patient is a 72-year-old male with past medical history significant for diabetes, COPD, previous history of alcohol dependence now in remission, history of TIA was admitted to the [facility] yesterday to 01/10/17 with chest pain starting a.m. day of admission. He describes it as a central chest pain with radiation to the left rib cage, also complaints of epigastric and right upper quadrant abdominal pain. Hemoglobin on admission was 7.7, white count was normal initially. History of black tarry stools about a week ago. His troponin peaked at 0.47, EKG showed nonspecific changes. Cardiology consulted recommends medical management. Because of lower GI bleeding antiplatelet therapy was not resumed. Blood cultures drawn yesterday growing Escherichia coli. Patient had fever of 100.9 on admission. With ongoing sepsis , anemia requiring transfusion and ongoing chest pain patient was transferred to the ICU and critical care medicine was consulted. Infectious diseases has started patient on Azactam as he is allergic to penicillin, and also Tigecyl and Levaquin I evaluated the patient in the ICU. He appears to be in [id number] distress due to pain, he is lying on his right side. Exam reveals right upper quadrant tenderness. Ultrasound of the abdomen is pending. CT aortogram done yesterday shows evidence of acute pancreatitis. AST/ALT 159/179, bilirubin was 3.7 and alkaline phosphatase is 337. Patient's right upper quadrant pain Escherichia coli sepsis and elevated liver enzymes are all concerning for acute cholecystitis. A stat abdominal ultrasound is pending at this time SUBJ 01/12: Patient lying in bed. Still have significant right upper quadrant and epigastric tenderness with voluntary guarding. GI and general surgery following ERCP planned for today. Liver enzymes trending down but white count has slightly increased from 14.9-16.6 01/13 No acute events overnight. Patient is lying in bed in NAD. WBC trending down. feeling better overall. On Protonix drip. Afebrile. s/p EGD and ERCP yesterday showed gastritis, gastric and duodenal diverticulum, dilated CBD Objective Vital Signs Date Time Temp Pulse Resp B/P Pulse Ox O2 Delivery O2 Flow Rate FiO2 01/13/17 07:36 96 01/13/17 06:00 65 01/13/17 04:00 99.1 15 153/71 01/12/17 19:34 Nasal Cannula 2.00 01/12/17 08:13 21 Intake and Output 01/12/17 01/12/17 01/13/17 08:00 16:00 00:00 Intake Total 826 ml 997 ml 80 ml Output Total 300 ml 350 ml 430 ml Balance 526 ml 647 ml -350 ml Result Diagram: 01/13/17 0445 01/13/17 0445 Other Results Laboratory Tests Test 01/13/17 04:45 White Blood Count 11.4 TH/MM3 Red Blood Count 3.72 MIL/MM3 Hemoglobin 9.5 GM/DL Hematocrit 29.4 % Mean Corpuscular Volume 79.0 FL Mean Corpuscular Hemoglobin 25.5 PG Mean Corpuscular Hemoglobin 32.3 % Concent Red Cell Distribution Width 18.9 % Platelet Count 259 TH/MM3 Mean Platelet Volume 8.4 FL Neutrophils (%) (Auto) 84.1 % Lymphocytes (%) (Auto) 8.0 % Monocytes (%) (Auto) 7.5 % Eosinophils (%) (Auto) 0.1 % Basophils (%) (Auto) 0.3 % Neutrophils # (Auto) 9.6 TH/MM3 Lymphocytes # (Auto) 0.9 TH/MM3 Monocytes # (Auto) 0.9 TH/MM3 Eosinophils # (Auto) 0.0 TH/MM3 Basophils # (Auto) 0.0 TH/MM3 CBC Comment DIFF FINAL Differential Comment Sodium Level 145 MEQ/L Potassium Level 4.3 MEQ/L Chloride Level 116 MEQ/L Carbon Dioxide Level 21.1 MEQ/L Anion Gap 8 MEQ/L Blood Urea Nitrogen 36 MG/DL Creatinine 1.10 MG/DL Estimat Glomerular Filtration 66 ML/MIN Rate Random Glucose 88 MG/DL Calcium Level 8.3 MG/DL Total Bilirubin 1.3 MG/DL Aspartate Amino Transf 58 U/L (AST/SGOT) Alanine Aminotransferase 108 U/L (ALT/SGPT) Alkaline Phosphatase 380 U/L Total Protein 5.8 GM/DL Albumin 2.4 GM/DL Imaging Last Impressions GI Procedure 01/12/17 0000 Signed Impressions: Service Date/Time: Thursday, January 12, 2017 15:24 - CONCLUSION: ERCP as above. Gamal Solorzano MD Abdomen Ultrasound 01/11/17 0000 Signed Impressions: Service Date/Time: Wednesday, January 11, 2017 13:45 - CONCLUSION: 1. Enlarged liver with mild ascites. 2. Gallbladder wall thickening with pericholecystic fluid, differential including acute cholecystitis and secondary changes related to liver disease. Negative sonographic Jackson's sign would favor the latter. 3. Sludge and stone in the gallbladder and common bile duct distention of uncertain etiology. Jose Browne MD Aorta CTA 01/10/17 1304 Signed Impressions: Service Date/Time: Tuesday, January 10, 2017 14:49 - CONCLUSION: 1. Atherosclerotic changes been no aneurysm or dissection. 2. Diverticulosis. 3. Slight inflammatory changes along the pancreatic head could be pancreatitis in the right clinical setting. 4. Bilateral punctate nonobstructing renal calculi. 5. Emphysema and minimal patchy density right upper lobe could be infectious or inflammatory. Gamal Solorzano MD Chest X-Ray 01/10/17 1203 Signed Impressions: Service Date/Time: Tuesday, January 10, 2017 12:38 - CONCLUSION: No acute cardiopulmonary disease identified. Stuart Augustin MD Objective Remarks GENERAL: Patient is 71 yo lying in bed in NAD SKIN: Warm and dry. HEAD: Normocephalic. EYES: No scleral icterus. No injection or drainage. NECK: Supple, trachea midline. No JVD or lymphadenopathy. CARDIOVASCULAR: Regular rate and rhythm without murmurs, gallops, or rubs. RESPIRATORY: Breath sounds equal bilaterally. No accessory muscle use. GASTROINTESTINAL: Abdomen soft, non-tender, nondistended. Biliary drain in place. MUSCULOSKELETAL: No cyanosis, or edema. BACK: Nontender without obvious deformity. No CVA tenderness. Neuro: Awake and alert A/P Assessment and Plan NEURO: History of mild dementia History of TIA History of alcohol abuse -Dilaudid 0.5 mg every 4 hours when necessary for pain control. -Continue Aricept -On aspirin and Plavix at home. Continue aspirin. RESP: Right upper lobe infiltrate Emphysema -Continue with oxygen keep sat >92% -DuoNeb every 6 hours and when necessary CV: Mildly elevated troponin, with normal CPK History of hypertension Dyslipidemia -Normal saline IV fluids, 1 L bolus 01/11 and 100 mL per hour -Cardiology Dr. Jack , 2-D echo- EF 55%, no RWMA -On Aspirin 81mg daily, Cardizem CD 480mg daily, Prinivil 40mg daily, Coreg 3.125mg BID GI: Acute cholecystitis, rule out cholangitis Acute pancreatitis -US abdomen finding along with liver enzymes with bilirubin and alkaline phosphatase,with E Coli bacteremia concerning for acute cholecystitis -Gen. surgery and GI following -s/p EGD and ERCP 01/12 showed gastritis, gastric and duodenal diverticulum, dilated CBD -Monitor biliary drainage. -Change Protonix drip to Protonix 40mg IV Q12 : -Monitor renal function, I/O's, electrolytes replacement per protocol. -D/c IVF ID: sepsis Escherichia coli bacteremia Probable acute cholecystitis, cholangitis cannot be ruled out -Continue abx per ID (Azactam, Tygacil and Levaquin) -Monitor for signs of infections ( Fever, WBC) WBC trending down. 01/10 BC: GNR, E.coli 01/11: BC: NGTD HEME: Anemia requiring transfusion -Monitor CBC, CMP, coags ENDO: -Electrolyte replacement per protocol -Sliding-scale insulin low scale PROPH: -Bilateral lower extremity SCDs/TEDs. Holding off chemical DVT prophylaxis due to lower GI bleed -Change Protonix gtt to Protonix 40mg BID LINES: -Utilize peripheral IVs, Will sign off. Level 2 Noramn Tian MD Jan 13, 2017 10:12
--- NOTE | 2017-01-13 10:41 | HHI.PR ---
Subjective Subjective Notes DAILY PROGRESS NOTE FOR SURGICAL ATTENDING, DR. RICHARD DAVIS Patient feels better Family at bedside They feel cholecystotomy help patient Objective Vitals/I&O Vital Signs Date Time Temp Pulse Resp B/P Pulse Ox O2 Delivery O2 Flow Rate FiO2 01/13/17 07:36 96 01/13/17 06:00 65 01/13/17 04:00 99.1 15 153/71 01/12/17 19:34 Nasal Cannula 2.00 01/12/17 08:13 21 Labs Laboratory Tests Test 01/13/17 04:45 White Blood Count 11.4 Red Blood Count 3.72 Hemoglobin 9.5 Hematocrit 29.4 Mean Corpuscular Volume 79.0 Mean Corpuscular Hemoglobin 25.5 Mean Corpuscular Hemoglobin 32.3 Concent Red Cell Distribution Width 18.9 Platelet Count 259 Mean Platelet Volume 8.4 Neutrophils (%) (Auto) 84.1 Lymphocytes (%) (Auto) 8.0 Monocytes (%) (Auto) 7.5 Eosinophils (%) (Auto) 0.1 Basophils (%) (Auto) 0.3 Neutrophils # (Auto) 9.6 Lymphocytes # (Auto) 0.9 Monocytes # (Auto) 0.9 Eosinophils # (Auto) 0.0 Basophils # (Auto) 0.0 CBC Comment DIFF FINAL Differential Comment Sodium Level 145 Potassium Level 4.3 Chloride Level 116 Carbon Dioxide Level 21.1 Anion Gap 8 Blood Urea Nitrogen 36 Creatinine 1.10 Estimat Glomerular Filtration 66 Rate Random Glucose 88 Calcium Level 8.3 Total Bilirubin 1.3 Aspartate Amino Transf 58 (AST/SGOT) Alanine Aminotransferase 108 (ALT/SGPT) Alkaline Phosphatase 380 Total Protein 5.8 Albumin 2.4 Date/Time Procedure Status Source Growth 01/11/17 15:11 Aerobic Blood Culture - Preliminary Resulted Blood Peripheral NO GROWTH IN 1 DAY 01/11/17 15:11 Anaerobic Blood Culture - Preliminary Resulted Blood Peripheral NO GROWTH IN 1 DAY Radiology Last Impressions GI Procedure 01/12/17 0000 Signed Impressions: Service Date/Time: Thursday, January 12, 2017 15:24 - CONCLUSION: ERCP as above. Gamal Solorzano MD Abdomen Ultrasound 01/11/17 0000 Signed Impressions: Service Date/Time: Wednesday, January 11, 2017 13:45 - CONCLUSION: 1. Enlarged liver with mild ascites. 2. Gallbladder wall thickening with pericholecystic fluid, differential including acute cholecystitis and secondary changes related to liver disease. Negative sonographic Jackson's sign would favor the latter. 3. Sludge and stone in the gallbladder and common bile duct distention of uncertain etiology. Jose Browne MD Aorta CTA 01/10/17 1304 Signed Impressions: Service Date/Time: Tuesday, January 10, 2017 14:49 - CONCLUSION: 1. Atherosclerotic changes been no aneurysm or dissection. 2. Diverticulosis. 3. Slight inflammatory changes along the pancreatic head could be pancreatitis in the right clinical setting. 4. Bilateral punctate nonobstructing renal calculi. 5. Emphysema and minimal patchy density right upper lobe could be infectious or inflammatory. Gamal Solorzano MD Chest X-Ray 01/10/17 1203 Signed Impressions: Service Date/Time: Tuesday, January 10, 2017 12:38 - CONCLUSION: No acute cardiopulmonary disease identified. Stuart Augustin MD Abdomen: Non-distended, Other Narrative Exam Patient appears more alert Once the something Cholecystotomy tube in place with biliary drainage A/P Problem List: (1) Abnormal LFTs (2) Acute cholecystitis due to biliary calculus (3) Bacteremia due to Gram-negative bacteria (4) GI bleed (5) Elevated troponin (6) Dementia (7) COPD (chronic obstructive pulmonary disease) (8) Diabetes (9) Neuropathy (10) technician terminal and repeater (current) use of antithrombotics/antiplatelets Assessment and Plan DAILY PROGRESS NOTE FOR SURGICAL ATTENDING, DR. RICHARD DAVIS 71 yo male with gi bleed, elevated LFT, gallstones, positive blood cults with sepsis, anemia and CAD High surgical risk had EGD/ercp with cholecystotomy tube placement Clinically the patient is improved Plan reevaluate cholecystotomy tube in a week to 2 weeks for drainage Problem Qualifiers (1) Dementia: Qualified Code: F03.90 - Dementia without behavioral disturbance, unspecified dementia type (2) COPD (chronic obstructive pulmonary disease): Qualified Code: J44.9 - Chronic obstructive pulmonary disease, unspecified COPD type Richard Davis MD Jan 13, 2017 10:41
--- NOTE | 2017-01-13 10:43 | HHI.IDPN ---
Subjective Subjective Remarks Notes reviewed Temps 99+ D/W RN Has tube in GB placed yesterday afternoon States abdominal pain is better Had EGD, ERCP, sphincterotomy and stent placement BC with E coli, prelim, ?second GNR Repeat BC negative so far WBC better Tbil decreasing Antibiotics Tygacil Azactam Levaquin Lines PIV Past Medical History DM Glaucoma Hypertension COPD Mild dementia Vertigo Hearing loss Previous TIA Benign meningeal tumor frontal lobe area Spinal stenosis "inoperable" Ruptured disc lumbar spine Neuropathy Shingles Multiple skin cancers Previous alcohol abuse Kidneys stones Past Surgical History Right knee open meniscectomy I&D of left knee abscess Appendectomy Multiple back surgeries Left elbow surgery for damaged ulnar nerve Kidney stone removal Penile implant surgery Bladder implant (patient described this as a pacemaker for his bladder) Cataract surgery right and left eyes Allergies: Coded Allergies: Bactrim (Verified Allergy, Severe, Anaphylaxis, 01/10/17) Ceftin (Verified Allergy, Severe, Anaphylaxis, 01/10/17) Flagyl (Verified Allergy, Severe, Fever, colitis, 01/10/17) Penicillin (Verified Allergy, Severe, Anaphylaxis, 01/10/17) Sulfa (Verified Allergy, Severe, Anaphylaxis, 01/10/17) MRI PRECAUTION (Verified Adverse Reaction, Severe, BLADDER STIMULATOR, ) BRAIN ONLY ON RECEIVE ONLY COIL, P.O. 01/11/17, DML Uncoded Allergies: mycins (Allergy, Severe, Fever, colitis, 12/15/13) surgical tape (Allergy, Severe, 12/15/13) Objective . Vital Signs Date Time Temp Pulse Resp B/P Pulse Ox O2 Delivery O2 Flow Rate FiO2 01/13/17 07:36 96 01/13/17 06:00 65 01/13/17 04:00 61 01/13/17 04:00 99.1 61 15 153/71 96 01/13/17 02:00 64 01/13/17 00:00 70 01/13/17 00:00 99.7 70 13 160/74 97 01/12/17 22:00 68 01/12/17 20:00 98.2 60 23 172/97 97 01/12/17 20:00 60 01/12/17 19:34 97 Nasal Cannula 2.00 01/12/17 16:30 98.7 63 20 168/78 96 01/12/17 16:15 62 15 152/74 95 Nasal Cannula 3 01/12/17 16:00 63 01/12/17 16:00 66 14 165/76 95 Nasal Cannula 3 01/12/17 15:45 67 14 162/78 96 Simple Mask 8 01/12/17 15:43 98.3 67 13 151/79 96 Simple Mask 8 01/12/17 12:00 98.7 59 14 169/81 94 01/12/17 12:00 60 01/12/17 01/12/17 01/13/17 15:00 23:00 07:00 Intake Total 597 ml 480 ml 821 ml Output Total 350 ml 430 ml 730 ml Balance 247 ml 50 ml 91 ml Intake Oral 0 ml IV Total 597 ml 80 ml 821 ml Other 400 ml Output Urine Total 350 ml 350 ml 550 ml Drainage Total 80 ml 180 ml Estimated Blood Loss 0 ml # Bowel Movements 1 1 . Laboratory Tests Test 01/11/17 01/11/17 01/12/17 01/13/17 15:00 20:59 05:12 04:45 Hemoglobin 8.3 GM/DL 9.4 GM/DL 9.5 GM/DL 9.5 GM/DL Hematocrit 25.6 % 29.2 % 29.5 % 29.4 % White Blood Count 16.6 TH/MM3 11.4 TH/MM3 Red Blood Count 3.72 MIL/MM3 3.72 MIL/MM3 Mean Corpuscular Volume 79.2 FL 79.0 FL Mean Corpuscular Hemoglobin 25.4 PG 25.5 PG Mean Corpuscular Hemoglobin 32.1 % 32.3 % Concent Red Cell Distribution Width 19.0 % 18.9 % Platelet Count 276 TH/MM3 259 TH/MM3 Mean Platelet Volume 8.2 FL 8.4 FL Neutrophils (%) (Auto) 85.0 % 84.1 % Lymphocytes (%) (Auto) 6.2 % 8.0 % Monocytes (%) (Auto) 8.2 % 7.5 % Eosinophils (%) (Auto) 0.4 % 0.1 % Basophils (%) (Auto) 0.2 % 0.3 % Neutrophils # (Auto) 14.1 TH/MM3 9.6 TH/MM3 Lymphocytes # (Auto) 1.0 TH/MM3 0.9 TH/MM3 Monocytes # (Auto) 1.4 TH/MM3 0.9 TH/MM3 Eosinophils # (Auto) 0.1 TH/MM3 0.0 TH/MM3 Basophils # (Auto) 0.0 TH/MM3 0.0 TH/MM3 CBC Comment AUTO DIFF DIFF FINAL Differential Comment AUTO DIFF CONFIRMED Platelet Estimate NORMAL Platelet Morphology Comment NORMAL Basophilic Stippling FAINT Ovalocytes 1+ Karmen Cells Acanthocytes 1+ Laboratory Tests Test 01/11/17 01/11/17 01/12/17 01/13/17 11:33 16:36 05:12 04:45 Total Creatine Kinase 161 U/L Creatine Kinase MB 0.9 NG/ML Troponin I 0.35 NG/ML Lipase 375 U/L Lactic Acid Level 1.3 mmol/L Phosphorus Level 3.9 MG/DL Sodium Level 144 MEQ/L 145 MEQ/L Potassium Level 4.2 MEQ/L 4.3 MEQ/L Chloride Level 113 MEQ/L 116 MEQ/L Carbon Dioxide Level 21.3 MEQ/L 21.1 MEQ/L Anion Gap 10 MEQ/L 8 MEQ/L Blood Urea Nitrogen 43 MG/DL 36 MG/DL Creatinine 1.18 MG/DL 1.10 MG/DL Estimat Glomerular Filtration 61 ML/MIN 66 ML/MIN Rate Random Glucose 91 MG/DL 88 MG/DL Calcium Level 8.7 MG/DL 8.3 MG/DL Total Bilirubin 2.1 MG/DL 1.3 MG/DL Direct Bilirubin 1.7 MG/DL Indirect Bilirubin 0.4 MG/DL Aspartate Amino Transf 95 U/L 58 U/L (AST/SGOT) Alanine Aminotransferase 139 U/L 108 U/L (ALT/SGPT) Alkaline Phosphatase 370 U/L 380 U/L Total Protein 5.9 GM/DL 5.8 GM/DL Albumin 2.6 GM/DL 2.4 GM/DL Microbiology Date/Time Procedure Status Source Growth 01/10/17 19:00 Aerobic Blood Culture - Preliminary Resulted Blood Peripheral Gram Negative Pro 01/10/17 19:00 Anaerobic Blood Culture - Preliminary Resulted Escherichia Coli 01/10/17 19:00 Aerobic Blood Culture - Preliminary Resulted Blood Peripheral Gram Negative Pro 01/10/17 19:00 Anaerobic Blood Culture - Preliminary Resulted Escherichia Coli 01/11/17 15:00 Aerobic Blood Culture - Preliminary Resulted Blood Peripheral NO GROWTH IN 1 DAY 01/11/17 15:00 Anaerobic Blood Culture - Preliminary Resulted Blood Peripheral NO GROWTH IN 1 DAY 01/11/17 15:11 Aerobic Blood Culture - Preliminary Resulted Blood Peripheral NO GROWTH IN 1 DAY 01/11/17 15:11 Anaerobic Blood Culture - Preliminary Resulted Blood Peripheral NO GROWTH IN 1 DAY Imaging Abdomen Ultrasound 01/11/17 0000 Signed Impressions: Service Date/Time: Wednesday, January 11, 2017 13:45 - CONCLUSION: 1. Enlarged liver with mild ascites. 2. Gallbladder wall thickening with pericholecystic fluid, differential including acute cholecystitis and secondary changes related to liver disease. Negative sonographic Jackson's sign would favor the latter. 3. Sludge and stone in the gallbladder and common bile duct distention of uncertain etiology. Jose Browne MD Aorta CTA 01/10/17 1304 Signed Impressions: Service Date/Time: Tuesday, January 10, 2017 14:49 - CONCLUSION: 1. Atherosclerotic changes been no aneurysm or dissection. 2. Diverticulosis. 3. Slight inflammatory changes along the pancreatic head could be pancreatitis in the right clinical setting. 4. Bilateral punctate nonobstructing renal calculi. 5. Emphysema and minimal patchy density right upper lobe could be infectious or inflammatory. Gamal Solorzano MD Chest X-Ray 01/10/17 1203 Signed Impressions: Service Date/Time: Tuesday, January 10, 2017 12:38 - CONCLUSION: No acute cardiopulmonary disease identified. Stuart Augustin MD Physical Exam GENERAL: awake and alert, in no apparent distress. SKIN: Warm and dry. No generalized rash, no ecchymosis, no embolic lesions. HEENT: [place] conjunctivae, no petechia or hemorrhage. No injection or drainage. Moist oral mucosa. NECK: Trachea midline. No JVD or lymphadenopathy. Supple, nontender, no meningeal signs. CARDIOVASCULAR: Regular rate and rhythm without murmurs, gallops, or rubs. RESPIRATORY: Clear to auscultation. Breath sounds equal bilaterally. No wheezes , rales, or rhonchi. GASTROINTESTINAL: Abdomen soft, nondistended, has significant tenderness in RUQ , Drain in bilious. Has some guarding, no rebound. MUSCULOSKELETAL: Extremities without clubbing, cyanosis, or edema. No calf tenderness. NEUROLOGICAL: Non-focal PSYCH: Normal affect, calm and cooperative LINE: PIV with no evidence of infection Assessment & Plan Remarks IMPRESSION GNR sepsis, source, biliary source - has elevated LFTs (new) Chest pain, ?MA Multiple Abx allergies - all recorded as anaphylaxis, patient not sure RECOMMENDATION Continue IV Tygacil - for GPC and anaerobic coverage; patient with hx multiplle Abx allergies Continue IV Azactam for more GNR coverage Stop Levaquin Send bie for G/S C/S Follow C/S Monitor progress D/W RN Spoke with Craig,Vanessa Angela MD Jan 13, 2017 10:43
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
--- NOTE | 2017-01-13 15:29 | HHI.GIFU ---
Subjective Remarks Patient is resting in bed, no nausea or vomiting, reports right mid abdomen pain. (Rafiq Bourgeois COPPER ETCHER) Objective Vitals I&O Vital Signs Date Time Temp Pulse Resp B/P Pulse Ox O2 Delivery O2 Flow Rate FiO2 01/13/17 14:00 60 01/13/17 12:00 98.9 64 20 165/74 95 01/13/17 12:00 64 01/13/17 10:00 73 01/13/17 08:00 68 01/13/17 08:00 98.6 68 17 166/74 95 01/13/17 07:36 96 01/13/17 06:00 65 01/13/17 04:00 61 01/13/17 04:00 99.1 61 15 153/71 96 01/13/17 02:00 64 01/13/17 00:00 70 01/13/17 00:00 99.7 70 13 160/74 97 01/12/17 22:00 68 01/12/17 20:00 98.2 60 23 172/97 97 01/12/17 20:00 60 01/12/17 19:34 97 Nasal Cannula 2.00 01/12/17 16:30 98.7 63 20 168/78 96 01/12/17 16:15 62 15 152/74 95 Nasal Cannula 3 01/12/17 16:00 63 01/12/17 16:00 66 14 165/76 95 Nasal Cannula 3 01/12/17 15:45 67 14 162/78 96 Simple Mask 8 01/12/17 15:43 98.3 67 13 151/79 96 Simple Mask 8 I/O 01/12/17 01/12/17 01/12/17 01/13/17 01/13/17 01/13/17 07:00 15:00 23:00 07:00 15:00 23:00 Intake Total 826 ml 597 ml 480 ml 821 ml 953 ml Output Total 300 ml 350 ml 430 ml 730 ml 820 ml Balance 526 ml 247 ml 50 ml 91 ml 133 ml Intake Oral 0 ml 0 ml IV Total 826 ml 597 ml 80 ml 821 ml 953 ml Other 400 ml Output Urine Total 300 ml 350 ml 350 ml 550 ml 550 ml Drainage Total 80 ml 180 ml 270 ml Estimated Blood Loss 0 ml # Bowel Movements 0 1 1 0 Laboratory Laboratory Tests Test 01/13/17 04:45 White Blood Count 11.4 Red Blood Count 3.72 Hemoglobin 9.5 Hematocrit 29.4 Mean Corpuscular Volume 79.0 Mean Corpuscular Hemoglobin 25.5 Mean Corpuscular Hemoglobin 32.3 Concent Red Cell Distribution Width 18.9 Platelet Count 259 Mean Platelet Volume 8.4 Neutrophils (%) (Auto) 84.1 Lymphocytes (%) (Auto) 8.0 Monocytes (%) (Auto) 7.5 Eosinophils (%) (Auto) 0.1 Basophils (%) (Auto) 0.3 Neutrophils # (Auto) 9.6 Lymphocytes # (Auto) 0.9 Monocytes # (Auto) 0.9 Eosinophils # (Auto) 0.0 Basophils # (Auto) 0.0 CBC Comment DIFF FINAL Differential Comment Sodium Level 145 Potassium Level 4.3 Chloride Level 116 Carbon Dioxide Level 21.1 Anion Gap 8 Blood Urea Nitrogen 36 Creatinine 1.10 Estimat Glomerular Filtration 66 Rate Random Glucose 88 Calcium Level 8.3 Total Bilirubin 1.3 Aspartate Amino Transf 58 (AST/SGOT) Alanine Aminotransferase 108 (ALT/SGPT) Alkaline Phosphatase 380 Total Protein 5.8 Albumin 2.4 Date/Time Procedure Status Source Growth 01/11/17 15:11 Aerobic Blood Culture - Preliminary Resulted Blood Peripheral NO GROWTH IN 2 DAYS 01/11/17 15:11 Anaerobic Blood Culture - Preliminary Resulted Blood Peripheral NO GROWTH IN 2 DAYS 01/10/17 19:00 Aerobic Blood Culture - Final Complete Blood Peripheral Escherichia Coli 01/10/17 19:00 Anaerobic Blood Culture - Final Complete Escherichia Coli Imaging Last Impressions Percutaneous Cholangiogram 01/12/17 0000 Signed Impressions: Service Date/Time: Thursday, January 12, 2017 18:13 - CONCLUSION: Uncomplicated percutaneous cholecystostomy as above. Yo Mcbride MD GI Procedure 01/12/17 0000 Signed Impressions: Service Date/Time: Thursday, January 12, 2017 15:24 - CONCLUSION: ERCP as above. Gamal Solorzano MD Abdomen Ultrasound 01/11/17 0000 Signed Impressions: Service Date/Time: Wednesday, January 11, 2017 13:45 - CONCLUSION: 1. Enlarged liver with mild ascites. 2. Gallbladder wall thickening with pericholecystic fluid, differential including acute cholecystitis and secondary changes related to liver disease. Negative sonographic Jackson's sign would favor the latter. 3. Sludge and stone in the gallbladder and common bile duct distention of uncertain etiology. Jose Browne MD Aorta CTA 01/10/17 1304 Signed Impressions: Service Date/Time: Tuesday, January 10, 2017 14:49 - CONCLUSION: 1. Atherosclerotic changes been no aneurysm or dissection. 2. Diverticulosis. 3. Slight inflammatory changes along the pancreatic head could be pancreatitis in the right clinical setting. 4. Bilateral punctate nonobstructing renal calculi. 5. Emphysema and minimal patchy density right upper lobe could be infectious or inflammatory. Gamal Solorzano MD Chest X-Ray 01/10/17 1203 Signed Impressions: Service Date/Time: Tuesday, January 10, 2017 12:38 - CONCLUSION: No acute cardiopulmonary disease identified. Stuart Augustin MD Physical Exam HEENT: normocephalic; atraumatic; no jaundice. CHEST: Chest is clear to auscultation and percussion, diminished at bases CARDIAC: Regular rate and rhythm ABDOMEN: firm , nondistended, right sided tenderness ; bowel sounds are present in all four quadrants. drain to RUQ EXTREMITIES: No clubbing, cyanosis, or edema. SKIN: Normal; no rash; no jaundice. 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 (Rafiq Bourgeois COPPER ETCHER) Assessment and Plan Plan - Dilated CBD/elevated LFTs remain high but trending down- S/P ERCP with sphincterotomy (01/12/17) No gallstones in the CBD and clear bile was visualized ; cholangitis ruled out Hepatitis panel negative. - Acute cholecystitis- GS on the case, high risk for surgery , s/p external cholecystomy with IR yesterday - Melena- black tarry stools x 3days- No more reported, S/P EGD/ERCP on () which showed gastritis s/p 3 units of blood, hh stable, ppi - E-coli bacteremia ID on the case, abx - Chest pain- Cardiology on the case - PAD, HTN, COPD per attending Plan: - Advance diet as tolerated - Monitor labs - Cont. PPI - monitor hh - Transfuse as needed - Notify gi for active bleed - GS on the case - will need colonoscopy, timing to be determined - supportive care - Patient seen and examined by Dr. peralta and myself and this note is written on his behalf. (Rafiq Bourgeois) Physician Comments Patient seen and examined Agree with above Continue with current supportive care Monitor labs LFTs coming down most likely secondary to acute cholecystitis Much to add from a GI standpoint therefore will sign off Please reconsult as needed (Robby Peralta MD) Rafiq Bourgeois Jan 13, 2017 15:29 Robby Peralta MD Jan 13, 2017 20:29
[2017-01-13] MEDS: PANTOPRAZOLE SODIUM 40 MG VIAL IV PUSH SCH (20:46)
[2017-01-13] MEDS: DILTIAZEM-CD 240 MG CAP ER PO SCH (20:46)
[2017-01-13] MEDS: DONEPEZIL HCL 5 MG TAB PO SCH (20:47)
[2017-01-14] VITALS (14 sets, daily range): BP systolic 176–198; BP diastolic 80–89; PULSE 53–62; RESP 12–16; TEMP 97.5–98.8; O2SAT 92–97
[2017-01-14] MEDS: HYDROmorphone HCL PF 1 MG/ML VIAL IV PUSH PRN ×8 (00:36→23:44)
[2017-01-14] MEDS: hydrALAZINE HCL 20 MG/ML VIAL IV PRN ×4 (00:37→23:10)
[2017-01-14] MEDS: NS + KCL 20 MEQ INJ 1,000 ML IV SCH ×2 (00:37→12:59)
[2017-01-14] MEDS: AZTREONAM INJ 2,000 MG in SODIUM CHLORIDE 0.9% INJ 100 ML IV SCH ×4 (00:37→23:10)
[2017-01-14] MEDS: CHLORHEXIDINE GLUCONATE 2 % 1 PACK (2 CLOTHS)(taper/protocol) TOP SCH (03:28)
[2017-01-14] MEDS: TIGECYCLINE INJ 50 MG in SODIUM CHLORIDE 0.9% INJ 100 ML IV SCH ×2 (04:01→14:51)
[2017-01-14 05:53] LABS: AUTOMATED NEUTROPHIL # 10.2 TH/MM3 (1.8-7.7); BASOPHIL % 0.3 % (0.0-2.0); EOSINOPHIL # 0.1 TH/MM3 (0-0.4); EOSINOPHIL % 0.8 % (0.0-4.0); HEMO FLAGS DIFF FINAL; LYMPH % 8.7 % (9.0-44.0); LYMPHOCYTE # 1.1 TH/MM3 (1.0-4.8); MEAN CELL VOLUME 80.2 FL (80.0-100.0); MEAN CORPUSCULAR HEMOGLOBIN 25.1 PG (27.0-34.0); MEAN CORPUSCULAR HGB CONC 31.3 % (32.0-36.0); MONO % 9.8 % (0.0-8.0); NEUT % 80.4 % (16.0-70.0); PLATELET COUNT 278 TH/MM3 (150-450); RED BLOOD COUNT 4.24 MIL/MM3 (4.50-5.90); RED CELL DISTRIBUTION WIDTH 18.7 % (11.6-17.2); WHITE BLOOD COUNT 12.7 TH/MM3 (4.0-11.0)
[2017-01-14 06:24] LABS: ALKALINE PHOSPHATASE 389 U/L (45-117); ALT (GPT) 88 U/L (12-78); ANION GAP 9 MEQ/L (5-15); AST (GOT) 34 U/L (15-37); BICARBONATE 18.5 MEQ/L (21.0-32.0); BLOOD UREA NITROGEN 30 MG/DL (7-18); CHLORIDE 116 MEQ/L (98-107); GLOMERULAR FILTRATION RATE 87 ML/MIN (>89); POTASSIUM 4.2 MEQ/L (3.5-5.1); SODIUM (NA) 143 MEQ/L (136-145)
[2017-01-14] MEDS: RESP: ALBUTEROL 2.5 MG/IPRATROPIUM 0.5 MG NEB (SCH) NEB ×3 (07:29→19:32)
[2017-01-14] MEDS: ASPIRIN 81 MG CHEW TAB CHEW SCH (07:50)
[2017-01-14] MEDS: PANTOPRAZOLE SODIUM 40 MG VIAL IV PUSH SCH (07:50)
[2017-01-14] MEDS: LISINOPRIL 20 MG TAB PO SCH (07:51)
[2017-01-14] MEDS: CITALOPRAM HYDROBROMIDE 20 MG TAB PO SCH (07:51)
[2017-01-14] MEDS: CARVEDILOL 3.125 MG TAB PO SCH ×2 (07:51→21:12)
[2017-01-14] MEDS ORDERED: ACETAMINOPHEN/HYDROcodone 325 MG/5 MG TAB PO PRN ×2 (08:45)
--- NOTE | 2017-01-14 08:50 | HHI.FPPN ---
Subjective Remarks Pt seen and examined this morning. No acute events overnight. Endorses same pain in center of chest as well as RUQ pain. Tolerated PO yesterday without N/V or increased pain. Also complains of an occipital headache from laying down constantly. Reports he's had BMs "all morning" but none documented. Denies SOB, cough, or calf pain. (Nani Torre MD) Objective Vitals Vital Signs Date Time Temp Pulse Resp B/P Pulse Ox O2 Delivery O2 Flow Rate FiO2 01/14/17 08:00 97.5 60 12 198/89 97 01/14/17 08:00 60 01/14/17 07:30 97 Nasal Cannula 2.00 01/14/17 06:00 57 01/14/17 04:00 55 01/14/17 04:00 97.9 55 12 176/81 92 01/14/17 02:00 56 01/14/17 00:00 97.9 60 12 193/88 94 01/14/17 00:00 60 01/13/17 22:00 60 01/13/17 20:00 98.1 60 12 158/71 98 01/13/17 20:00 60 01/13/17 19:40 98 21 01/13/17 18:00 59 01/13/17 16:00 98.4 58 12 165/75 96 01/13/17 16:00 58 01/13/17 14:00 60 01/13/17 12:00 98.9 64 20 165/74 95 01/13/17 12:00 64 01/13/17 10:00 73 I/O 01/13/17 01/13/17 01/13/17 01/14/17 01/14/17 01/14/17 07:00 15:00 23:00 07:00 15:00 23:00 Intake Total 821 ml 953 ml 780 ml 758 ml Output Total 730 ml 820 ml 530 ml 920 ml Balance 91 ml 133 ml 250 ml -162 ml Intake Oral 480 ml IV Total 821 ml 953 ml 300 ml 758 ml Output Urine Total 550 ml 550 ml 350 ml 750 ml Drainage Total 180 ml 270 ml 180 ml 170 ml # Bowel Movements 1 0 (Nani Torre MD) Result Diagram: 01/14/1751001/14/17510 Objective Remarks GENERAL: WN, WD male laying in bed in NAD. SKIN: Warm and dry without rash. No significant jaundice. HEENT: Pupils equal and round. No conjunctival injection. MMM. CHEST: Chest wall nontender to palpation. CP not reproducible. HEART: Bradycardic with regular rhythm. Distant heart sounds. LUNGS: Equal bilaterally with no accessory muscle use. ABDOMEN: Quiet bowel sounds. Drain in RUQ with <100 cc bilious output. Abdomen soft with voluntary guarding and TTP over upper abdomen especially RUQ and epigastric regions. EXTREMITIES: No LE edema. L pedal pulses barely palpable, right pedal pulses 2+ . No discoloration of toes or ulcers noted bilaterally. NEURO: Awake and alert. (Nani Torre MD) A/P Assessment and Plan 71 year old male with history of DM, COPD, HTN, mild dementia, TIA with CEA, spinal stenosis, and alcoholism (quit for nine years) was admitted on 01/10 for chest pain with mildly elevated troponins, RUQ pain with elevated LFTs , and three days of black tarry stools with hemoglobin 7.3. Cardiology and GI were originally consulted; heparin contraindicated due to bleed and GI planned on EGD. Patient was transfused 3 units PRBCs. He was found to have two blood cultures growing E. coli and given significant antibiotic allergies ID was consulted. Patient currently on Aztreonam and Tigecycline. Bacteremia suspected to be secondary to acute cholecystitis given patient's concomitant RUQ, low- grade fever, and elevated LFTs and bilirubin. General surgery also consulted. Patient underwent EGD on 01/12 showing gastritis as well as ERCP with sphincterotomy. He is high-risk surgical candidate at this time and it was decided to manage the cholecystitis with cholecystomy tube which was placed on . Since then, the white count and LFTs have been downtrending. Once critical care signs off we can transfer to med/surg floor. Discharge Planning Unclear discharge timetable at this point. (Nani Torre MD) Attending Attestation Patient seen and examined. Case reviewed and discussed with the resident team. Agree with plan of care as discussed with me and documented in the resident note. he complains of pain to me mainly where he has his tube and does have his dementia which makes him a poor historian. he is doing well and can hopefully be transferred soon out of the ICU (Alfreda Jacome MD) Problem List: (1) E coli bacteremia Status: Acute Plan: On admission patient was septic with fever, tachycardia, leukocytosis, and lactic acidosis. E. coli grew in both initial blood cultures. With elevated LFTs, bilirubin, white count, and RUQ pain, suspected acute cholecystitis (see plans below). - Afebrile overnight (last fever was 100.9 on 01/10) - White count up to 16.6 with left shift on admission but down to 12.7 today - Lactic acid originally 3.4 down to 1.3 - Given abundance of antibiotic allergies, ID was consulted for assistance in management. Currently on Aztreonam (started 01/11) and Tigecycline (started 01/11) . Levaquin discontinued (01/12-01/13) - U/A with no signs of infection (negative nitrite, leukocyte esterase) - Repeat BC no growth in two days - Bile from drain cultured. Pending (2) Acute cholecystitis Status: Acute Plan: AST and ALT elevated on admission to 229 and 221, respectively, with elevated total bili to 2.1 (normal values in April 2016). Patient also complaining of epigastric and RUQ pain. Abdominal U/S demonstrated an enlarged liver with mild ascites, GB wall thickening with pericholecystic fluid, sludge and stone in the GB, and CBD distention. - ERCP with sphincterotomy 01/12 with GI. No gallstones in the CBD and clear bile was visualized; cholangitis ruled out - General surgery consulted; patient high-risk for surgery therefore IR consulted and patient underwent cholecystostomy tube placement 01/12 - Drain putting out <100 cc bile this AM - LFTs trending down (AST 34, ALT 88 this AM) - Total bili down to 1.0 - Pain control with Lortab 5/325 mg 1-2 tabs Q4H PRN and Dilaudid 0.5 mg IV Q2H PRN breakthrough pain - Tolerating PO (3) GI bleed Status: Acute Plan: Patient presenting with three-days duration of black tarry stool with suspected upper GI bleed. Initial H&H 7.7/23.4 (hemoglobin in April 2016 was 14.3 ). GI consulted and EGD showed gastritis. - S/P 3 unit PRBCs. H&H improving at 10.6/34 today - Hemodynamically stable - Protonix 40 mg IV Q12H (4) Chest pain Status: Acute Plan: Patient presented with nonradiating substernal chest pain that continues to persist. Initial EKG showed possible atrial flutter with RVR and RBBB. Repeat EKG showed NSR with RBBB and nonspecific lateral T wave changes. Serial troponins mildly elevated: 0.12 > 0.48 > 0.47 > 0.35 with normal CK and CK-MB. - Cardiology consulted; heparin C/I given GI bleed and acute serious condition ( GI bleed, bacteremia) precludes catheterization - Chest pain not suspected to be cardiac in nature at this time. Echo done showing mild LVH and EF 55% - Nitro PRN - Continue carvedilol - D/C atorvastatin since cholesterol is low and patient with transaminitis - Continue home Lisinopril 40 mg PO daily and Cardizem 480 mg QHS - Continue low-dose Carvedilol 3.125 mg PO BID (started this hospitalization) (5) Hypertension Status: Chronic Plan: BPs elevated with systolic pressure up to 190s. - Continue home Lisinopril 40 mg PO daily and Cardizem CD 480 mg PO daily - Continue carvedilol 3.125 mg PO BID started in the hospital (hesitant to increase given bradycardia) - Patient allergic to sulfa therefore avoiding HCTZ - Start hydralazine 25 mg PO BID. Can titrate up (6) Peripheral arterial disease Status: Chronic Plan: Left foot warm today but still with diminished pulse. No pain or discoloration. - Doppler pulse and lita area - Consider ABIs as outpatient - Pt not a vascular surgery candidate at this time (7) COPD (chronic obstructive pulmonary disease) Status: Chronic Plan: Not in exacerbation and CXR with no acute disease. - Supplemental O2 PRN - DuoNeb Q6H - Incentive spirometry (8) Dementia Status: Chronic Plan: Continue home Aricept. (9) Depression Status: Chronic Plan: Continue home Celexa. (10) History of alcohol abuse Status: Resolved Plan: In remission. No signs of withdrawal. (11) FEN/PPX Status: Acute Plan: - Fluids: NS KCl 20 meq at 75 ml/hr. Encourage PO - Electrolytes: Monitor and replace as needed - Nutrition: Tolerating clears. Advance to full liquid - DVT prophylaxis: Anticoagulation C/I in setting of GI bleed. Bilateral SCDs dw Dr. Jacome (Nani Torre MD) Problem Qualifiers (1) Hypertension: Qualified Code: I10 - Essential hypertension (2) COPD (chronic obstructive pulmonary disease): Qualified Code: J44.9 - Chronic obstructive pulmonary disease, unspecified COPD type (3) Dementia: Qualified Code: F03.90 - Dementia without behavioral disturbance, unspecified dementia type Nani Torre MD Jan 14, 2017 08:50 Alfrdea Jacome MD Jan 14, 2017 13:36
[2017-01-14] MEDS: hydrALAZINE HCL 25 MG TAB PO SCH ×2 (10:07→21:12)
[2017-01-14] MEDS: BUDESONIDE-FORMOTEROL 160/4.5 MCG INHALER INH SCH ×2 (10:07→21:13)
--- NOTE | 2017-01-14 14:47 | HHI.IDPN ---
Subjective Subjective Remarks Notes reviewed Temps ok D/W RN Has tube in GB, draining well States abdominal pain is better Had EGD, ERCP, sphincterotomy and stent placement BC with E coli Bile C/S GNR Repeat BC negative so far WBC better Tbil decreasing Antibiotics Tygacil Azactam Lines PIV Past Medical History DM Glaucoma Hypertension COPD Mild dementia Vertigo Hearing loss Previous TIA Benign meningeal tumor frontal lobe area Spinal stenosis "inoperable" Ruptured disc lumbar spine Neuropathy Shingles Multiple skin cancers Previous alcohol abuse Kidneys stones Past Surgical History Right knee open meniscectomy I&D of left knee abscess Appendectomy Multiple back surgeries Left elbow surgery for damaged ulnar nerve Kidney stone removal Penile implant surgery Bladder implant (patient described this as a pacemaker for his bladder) Cataract surgery right and left eyes Allergies: Coded Allergies: Bactrim (Verified Allergy, Severe, Anaphylaxis, 01/10/17) Ceftin (Verified Allergy, Severe, Anaphylaxis, 01/10/17) Flagyl (Verified Allergy, Severe, Fever, colitis, 01/10/17) Penicillin (Verified Allergy, Severe, Anaphylaxis, 01/10/17) Sulfa (Verified Allergy, Severe, Anaphylaxis, 01/10/17) MRI PRECAUTION (Verified Adverse Reaction, Severe, BLADDER STIMULATOR, ) BRAIN ONLY ON RECEIVE ONLY COIL, P.O. 01/11/17, DML *MDRO Multi-Drug Resistant Organism (Verified Adverse Reaction, Unknown, MRSA, 01/13/17) MRSA PCR (nares) POSITIVE - 01/11/17 Uncoded Allergies: mycins (Allergy, Severe, Fever, colitis, 12/15/13) surgical tape (Allergy, Severe, 12/15/13) Objective . Vital Signs Date Time Temp Pulse Resp B/P Pulse Ox O2 Delivery O2 Flow Rate FiO2 01/14/17 14:00 58 01/14/17 12:00 53 01/14/17 12:00 97.5 53 12 193/81 97 01/14/17 10:00 62 01/14/17 08:00 97.5 60 12 198/89 97 01/14/17 08:00 60 01/14/17 07:30 97 Nasal Cannula 2.00 01/14/17 06:00 57 01/14/17 04:00 55 01/14/17 04:00 97.9 55 12 176/81 92 01/14/17 02:00 56 01/14/17 00:00 97.9 60 12 193/88 94 01/14/17 00:00 60 01/13/17 22:00 60 01/13/17 20:00 98.1 60 12 158/71 98 01/13/17 20:00 60 01/13/17 19:40 98 21 01/13/17 18:00 59 01/13/17 16:00 98.4 58 12 165/75 96 01/13/17 16:00 58 01/13/17 01/13/17 01/14/17 15:00 23:00 07:00 Intake Total 953 ml 780 ml 758 ml Output Total 820 ml 530 ml 920 ml Balance 133 ml 250 ml -162 ml Intake Oral 480 ml IV Total 953 ml 300 ml 758 ml Output Urine Total 550 ml 350 ml 750 ml Drainage Total 270 ml 180 ml 170 ml # Bowel Movements 0 . Laboratory Tests Test 01/13/17 01/14/17 04:45 05:11 White Blood Count 11.4 TH/MM3 12.7 TH/MM3 Red Blood Count 3.72 MIL/MM3 4.24 MIL/MM3 Hemoglobin 9.5 GM/DL 10.6 GM/DL Hematocrit 29.4 % 34.0 % Mean Corpuscular Volume 79.0 FL 80.2 FL Mean Corpuscular Hemoglobin 25.5 PG 25.1 PG Mean Corpuscular Hemoglobin 32.3 % 31.3 % Concent Red Cell Distribution Width 18.9 % 18.7 % Platelet Count 259 TH/MM3 278 TH/MM3 Mean Platelet Volume 8.4 FL 8.4 FL Neutrophils (%) (Auto) 84.1 % 80.4 % Lymphocytes (%) (Auto) 8.0 % 8.7 % Monocytes (%) (Auto) 7.5 % 9.8 % Eosinophils (%) (Auto) 0.1 % 0.8 % Basophils (%) (Auto) 0.3 % 0.3 % Neutrophils # (Auto) 9.6 TH/MM3 10.2 TH/MM3 Lymphocytes # (Auto) 0.9 TH/MM3 1.1 TH/MM3 Monocytes # (Auto) 0.9 TH/MM3 1.2 TH/MM3 Eosinophils # (Auto) 0.0 TH/MM3 0.1 TH/MM3 Basophils # (Auto) 0.0 TH/MM3 0.0 TH/MM3 CBC Comment DIFF FINAL DIFF FINAL Differential Comment Laboratory Tests Test 01/13/17 01/14/17 04:45 05:11 Sodium Level 145 MEQ/L 143 MEQ/L Potassium Level 4.3 MEQ/L 4.2 MEQ/L Chloride Level 116 MEQ/L 116 MEQ/L Carbon Dioxide Level 21.1 MEQ/L 18.5 MEQ/L Anion Gap 8 MEQ/L 9 MEQ/L Blood Urea Nitrogen 36 MG/DL 30 MG/DL Creatinine 1.10 MG/DL 0.86 MG/DL Estimat Glomerular Filtration 66 ML/MIN 87 ML/MIN Rate Random Glucose 88 MG/DL 118 MG/DL Calcium Level 8.3 MG/DL 8.7 MG/DL Total Bilirubin 1.3 MG/DL 1.0 MG/DL Aspartate Amino Transf 58 U/L 34 U/L (AST/SGOT) Alanine Aminotransferase 108 U/L 88 U/L (ALT/SGPT) Alkaline Phosphatase 380 U/L 389 U/L Total Protein 5.8 GM/DL 6.3 GM/DL Albumin 2.4 GM/DL 2.4 GM/DL Microbiology Date/Time Procedure Status Source Growth 01/11/17 15:00 Aerobic Blood Culture - Preliminary Resulted Blood Peripheral NO GROWTH IN 3 DAYS 01/11/17 15:00 Anaerobic Blood Culture - Preliminary Resulted Blood Peripheral NO GROWTH IN 3 DAYS 01/11/17 15:11 Aerobic Blood Culture - Preliminary Resulted Blood Peripheral NO GROWTH IN 3 DAYS 01/11/17 15:11 Anaerobic Blood Culture - Preliminary Resulted Blood Peripheral NO GROWTH IN 3 DAYS 01/13/17 14:45 Gram Stain - Final Resulted Fluid Bile Fluid 01/13/17 14:45 Body Fluid Culture - Preliminary Resulted Gram Negative Pro Imaging Abdomen Ultrasound 01/11/17 0000 Signed Impressions: Service Date/Time: Wednesday, January 11, 2017 13:45 - CONCLUSION: 1. Enlarged liver with mild ascites. 2. Gallbladder wall thickening with pericholecystic fluid, differential including acute cholecystitis and secondary changes related to liver disease. Negative sonographic Jackson's sign would favor the latter. 3. Sludge and stone in the gallbladder and common bile duct distention of uncertain etiology. Jose Browne MD Aorta CTA 01/10/17 1304 Signed Impressions: Service Date/Time: Tuesday, January 10, 2017 14:49 - CONCLUSION: 1. Atherosclerotic changes been no aneurysm or dissection. 2. Diverticulosis. 3. Slight inflammatory changes along the pancreatic head could be pancreatitis in the right clinical setting. 4. Bilateral punctate nonobstructing renal calculi. 5. Emphysema and minimal patchy density right upper lobe could be infectious or inflammatory. Gamal Solorzano MD Chest X-Ray 01/10/17 1203 Signed Impressions: Service Date/Time: Tuesday, January 10, 2017 12:38 - CONCLUSION: No acute cardiopulmonary disease identified. Stuart Augustin MD Physical Exam GENERAL: awake and alert, in no apparent distress. SKIN: Warm and dry. No generalized rash HEENT: [place] conjunctivae. No injection or drainage. Moist oral mucosa. NECK: Supple, nontender, no meningeal signs. CARDIOVASCULAR: Regular rate and rhythm without murmurs, gallops, or rubs. RESPIRATORY: Clear to auscultation. Breath sounds equal bilaterally. No wheezes , rales, or rhonchi. GASTROINTESTINAL: Abdomen soft, nondistended, has significant tenderness in RUQ , Drain has bilious fluid. Has some guarding, no rebound. MUSCULOSKELETAL: Extremities without clubbing, cyanosis, or edema. No calf tenderness. NEUROLOGICAL: Non-focal PSYCH: Normal affect, calm and cooperative LINE: PIV with no evidence of infection Assessment & Plan Remarks IMPRESSION E coli sepsis, source, biliary source - has elevated LFTs (new) Chest pain, ?MO Multiple Abx allergies - all recorded as anaphylaxis, patient not sure RECOMMENDATION Continue IV Tygacil - for GPC and anaerobic coverage; patient with hx multiplle Abx allergies Continue IV Azactam Await bile C/S Will deescalate once fluid C/S finalized Would still like to keep some anaerobic coverage on board Monitor progress Vanessa Srinivasan MD Jan 14, 2017 14:47
--- NOTE | 2017-01-14 14:57 | HHI.PR ---
Subjective Subjective Notes DAILY PROGRESS NOTE FOR SURGICAL ATTENDING, DR. RICHARD DAVIS Patient said he feels better Objective Vitals/I&O Vital Signs Date Time Temp Pulse Resp B/P Pulse Ox O2 Delivery O2 Flow Rate FiO2 01/14/17 14:00 58 01/14/17 12:00 97.5 12 193/81 97 01/14/17 07:30 Nasal Cannula 2.00 01/13/17 19:40 21 Labs Laboratory Tests Test 01/14/17 05:11 White Blood Count 12.7 Red Blood Count 4.24 Hemoglobin 10.6 Hematocrit 34.0 Mean Corpuscular Volume 80.2 Mean Corpuscular Hemoglobin 25.1 Mean Corpuscular Hemoglobin 31.3 Concent Red Cell Distribution Width 18.7 Platelet Count 278 Mean Platelet Volume 8.4 Neutrophils (%) (Auto) 80.4 Lymphocytes (%) (Auto) 8.7 Monocytes (%) (Auto) 9.8 Eosinophils (%) (Auto) 0.8 Basophils (%) (Auto) 0.3 Neutrophils # (Auto) 10.2 Lymphocytes # (Auto) 1.1 Monocytes # (Auto) 1.2 Eosinophils # (Auto) 0.1 Basophils # (Auto) 0.0 CBC Comment DIFF FINAL Differential Comment Sodium Level 143 Potassium Level 4.2 Chloride Level 116 Carbon Dioxide Level 18.5 Anion Gap 9 Blood Urea Nitrogen 30 Creatinine 0.86 Estimat Glomerular Filtration 87 Rate Random Glucose 118 Calcium Level 8.7 Total Bilirubin 1.0 Aspartate Amino Transf 34 (AST/SGOT) Alanine Aminotransferase 88 (ALT/SGPT) Alkaline Phosphatase 389 Total Protein 6.3 Albumin 2.4 Date/Time Procedure Status Source Growth 01/13/17 14:45 Gram Stain - Final Resulted Fluid Bile Fluid 01/13/17 14:45 Body Fluid Culture - Preliminary Resulted Gram Negative Pro 01/11/17 15:11 Aerobic Blood Culture - Preliminary Resulted Blood Peripheral NO GROWTH IN 3 DAYS 01/11/17 15:11 Anaerobic Blood Culture - Preliminary Resulted Blood Peripheral NO GROWTH IN 3 DAYS 01/10/17 19:00 Aerobic Blood Culture - Final Complete Blood Peripheral Escherichia Coli 01/10/17 19:00 Anaerobic Blood Culture - Final Complete Escherichia Coli Radiology Last Impressions GI Procedure 01/12/17 0000 Signed Impressions: Service Date/Time: Thursday, January 12, 2017 15:24 - CONCLUSION: ERCP as above. Gamal Solorzano MD Abdomen Ultrasound 01/11/17 0000 Signed Impressions: Service Date/Time: Wednesday, January 11, 2017 13:45 - CONCLUSION: 1. Enlarged liver with mild ascites. 2. Gallbladder wall thickening with pericholecystic fluid, differential including acute cholecystitis and secondary changes related to liver disease. Negative sonographic Jackson's sign would favor the latter. 3. Sludge and stone in the gallbladder and common bile duct distention of uncertain etiology. Jose Browne MD Aorta CTA 01/10/17 1304 Signed Impressions: Service Date/Time: Tuesday, January 10, 2017 14:49 - CONCLUSION: 1. Atherosclerotic changes been no aneurysm or dissection. 2. Diverticulosis. 3. Slight inflammatory changes along the pancreatic head could be pancreatitis in the right clinical setting. 4. Bilateral punctate nonobstructing renal calculi. 5. Emphysema and minimal patchy density right upper lobe could be infectious or inflammatory. Gamal Solorzano MD Chest X-Ray 01/10/17 1203 Signed Impressions: Service Date/Time: Tuesday, January 10, 2017 12:38 - CONCLUSION: No acute cardiopulmonary disease identified. Stuart Augustin MD Cardiovascular: Regular Abdomen: Non-tender, Other (cholecystotomy tube with bilious drainage) Narrative Exam Patient appears more alert Cholecystotomy tube in place with biliary drainage Advance diet as tolerated Plan cholangiogram through cholecystotomy tube next week A/P Problem List: (1) Abnormal LFTs (2) Acute cholecystitis due to biliary calculus (3) Bacteremia due to Gram-negative bacteria (4) GI bleed (5) Elevated troponin (6) Dementia (7) COPD (chronic obstructive pulmonary disease) (8) Diabetes (9) Neuropathy (10) retirement (current) use of antithrombotics/antiplatelets Assessment and Plan DAILY PROGRESS NOTE FOR SURGICAL ATTENDING, DR. RICHARD DAVIS 71 yo male with gi bleed, elevated LFT, gallstones, positive blood cults with sepsis, anemia and CAD High surgical risk had EGD/ercp with cholecystotomy tube placement Clinically the patient is improved Plan reevaluate cholecystotomy tube in a week to 2 weeks for drainage Problem Qualifiers (1) Dementia: Qualified Code: F03.90 - Dementia without behavioral disturbance, unspecified dementia type (2) COPD (chronic obstructive pulmonary disease): Qualified Code: J44.9 - Chronic obstructive pulmonary disease, unspecified COPD type Richard Davis MD Jan 14, 2017 14:56
[2017-01-14] MEDS: SODIUM CHLORIDE FLUSH BID SCH ×2 (15:12→21:13)
[2017-01-14] MEDS: cloNIDine HCL 0.2 MG TAB PO PRN (18:30)
[2017-01-14] MEDS: DONEPEZIL HCL 5 MG TAB PO SCH (21:12)
[2017-01-14] MEDS: DILTIAZEM-CD 240 MG CAP ER PO SCH (21:12)
[2017-01-15] VITALS (23 sets, daily range): BP systolic 158–203; BP diastolic 70–84; PULSE 48–70; RESP 12–21; TEMP 98–98.7; O2SAT 93–98
[2017-01-15] MEDS: ZOLPIDEM TARTRATE 10 MG TAB PO PRN (01:49)
[2017-01-15] MEDS: HYDROmorphone HCL PF 1 MG/ML VIAL IV PUSH PRN ×2 (01:50→04:23)
[2017-01-15] MEDS: TIGECYCLINE INJ 50 MG in SODIUM CHLORIDE 0.9% INJ 100 ML IV SCH (03:11)
[2017-01-15] MEDS: hydrALAZINE HCL 20 MG/ML VIAL IV PRN (03:11)
[2017-01-15] MEDS: CHLORHEXIDINE GLUCONATE 2 % 1 PACK (2 CLOTHS)(taper/protocol) TOP SCH (04:00)
[2017-01-15] MEDS: SODIUM CHLORIDE FLUSH BID SCH ×3 (04:14→20:17)
[2017-01-15] MEDS: NS + KCL 20 MEQ INJ 1,000 ML IV SCH (04:15)
[2017-01-15 04:39] LABS: AUTOMATED NEUTROPHIL # 9.1 TH/MM3 (1.8-7.7); BASOPHIL # 0.1 TH/MM3 (0-0.2); BASOPHIL % 0.5 % (0.0-2.0); EOSINOPHIL # 0.2 TH/MM3 (0-0.4); EOSINOPHIL % 1.5 % (0.0-4.0); HEMATOCRIT 34.1 % (39.0-51.0); HEMO FLAGS DIFF FINAL; LYMPH % 10.6 % (9.0-44.0); LYMPHOCYTE # 1.3 TH/MM3 (1.0-4.8); MEAN CELL VOLUME 78.9 FL (80.0-100.0); MEAN CORPUSCULAR HEMOGLOBIN 25.8 PG (27.0-34.0); MEAN CORPUSCULAR HGB CONC 32.6 % (32.0-36.0); MONO % 13.2 % (0.0-8.0); NEUT % 74.2 % (16.0-70.0); PLATELET COUNT 325 TH/MM3 (150-450); RED BLOOD COUNT 4.32 MIL/MM3 (4.50-5.90); RED CELL DISTRIBUTION WIDTH 18.7 % (11.6-17.2); WHITE BLOOD COUNT 12.3 TH/MM3 (4.0-11.0)
[2017-01-15 05:02] LABS: ANION GAP 10 MEQ/L (5-15); AST (GOT) 21 U/L (15-37); BLOOD UREA NITROGEN 30 MG/DL (7-18); CHLORIDE 113 MEQ/L (98-107); GLOMERULAR FILTRATION RATE 96 ML/MIN (>89); POTASSIUM 4.1 MEQ/L (3.5-5.1); SODIUM (NA) 144 MEQ/L (136-145)
[2017-01-15 05:05] LABS: ALKALINE PHOSPHATASE 333 U/L (45-117); ALT (GPT) 65 U/L (12-78); TOTAL BILIRUBIN ADULT 0.8 MG/DL (0.2-1.0)
[2017-01-15] MEDS: cloNIDine HCL 0.2 MG TAB PO PRN (05:57)
[2017-01-15] MEDS: RESP: ALBUTEROL 2.5 MG/IPRATROPIUM 0.5 MG NEB (SCH) NEB ×2 (07:17→12:00)
[2017-01-15] MEDS: AZTREONAM INJ 2,000 MG in SODIUM CHLORIDE 0.9% INJ 100 ML IV SCH ×3 (08:00→23:51)
[2017-01-15] MEDS: CARVEDILOL 3.125 MG TAB PO SCH ×2 (08:33→20:16)
[2017-01-15] MEDS: hydrALAZINE HCL 25 MG TAB PO SCH (08:33)
[2017-01-15] MEDS: ASPIRIN 81 MG CHEW TAB CHEW SCH (08:33)
[2017-01-15] MEDS: LISINOPRIL 20 MG TAB PO SCH (08:33)
[2017-01-15] MEDS: BUDESONIDE-FORMOTEROL 160/4.5 MCG INHALER INH SCH ×2 (08:34→20:18)
[2017-01-15] MEDS: CITALOPRAM HYDROBROMIDE 20 MG TAB PO SCH (08:34)
[2017-01-15] MEDS: hydrALAZINE HCL 50 MG TAB PO SCH ×2 (09:00→20:16)
[2017-01-15] MEDS ORDERED: PANTOPRAZOLE SOD 20 MG DELAYED RELEASE TAB PO SCH (09:00)
--- NOTE | 2017-01-15 09:10 | HHI.FPPN ---
Subjective Remarks Pt seen and examined this morning. Reports he is feeling better and pain has much improved. Denies chest pain, shortness of breath, cough, nausea, vomiting, or calf tenderness. Ambulating with PT. Tolerating PO without issues. (Nani Torre MD) Objective Vitals Vital Signs Date Time Temp Pulse Resp B/P Pulse Ox O2 Delivery O2 Flow Rate FiO2 01/15/17 08:41 66 01/15/17 07:24 63 01/15/17 07:21 96 21 01/15/17 06:00 68 01/15/17 05:30 98.4 68 16 196/82 93 01/15/17 04:53 16 01/15/17 04:00 98.3 70 12 203/84 95 01/15/17 04:00 70 01/15/17 02:00 63 01/15/17 00:00 66 01/15/17 00:00 98.7 66 21 174/78 97 01/14/17 22:00 61 01/14/17 20:00 98.8 62 16 188/84 96 01/14/17 20:00 62 01/14/17 19:33 97 21 01/14/17 18:00 61 01/14/17 16:00 58 01/14/17 16:00 97.5 58 12 181/80 97 01/14/17 14:00 58 01/14/17 12:00 53 01/14/17 12:00 97.5 53 12 193/81 97 01/14/17 10:00 62 I/O 01/14/17 01/14/17 01/14/17 01/15/17 01/15/17 01/15/17 07:00 15:00 23:00 07:00 15:00 23:00 Intake Total 758 ml 2245 ml 1090 ml 691 ml Output Total 920 ml 1200 ml 1135 ml 1350 ml Balance -162 ml 1045 ml -45 ml -659 ml Intake Oral 1280 ml 480 ml IV Total 758 ml 965 ml 610 ml 691 ml Output Urine Total 750 ml 1000 ml 900 ml 1150 ml Drainage Total 170 ml 200 ml 235 ml 200 ml (Nani Torre MD) Result Diagram: 01/15/176 01/15/176 Objective Remarks GENERAL: WN, WD male laying in bed in NAD. SKIN: Warm and dry without rash. No significant jaundice. HEENT: Pupils equal and round. No conjunctival injection. MMM. HEART: Distant heart sounds. RRR no m/r/g. LUNGS: Equal bilaterally with no accessory muscle use. ABDOMEN: +BS. Drain in RUQ with <100 cc bilious output. Abdomen soft, nondistended, without guarding or rebound. Mild TTP around drain. EXTREMITIES: No LE edema. L pedal pulses barely palpable, right pedal pulses 2+ . No discoloration of toes or ulcers noted bilaterally. NEURO: Awake and alert. (Nani Torre MD) A/P Assessment and Plan 71 year old male with history of DM, COPD, HTN, mild dementia, TIA with CEA, spinal stenosis, and alcoholism (quit for nine years) was admitted on 01/10 for chest pain with mildly elevated troponins, RUQ pain with elevated LFTs , and three days of black tarry stools with hemoglobin 7.3. Patient was transfused 3 units PRBCs. Cardiology and GI were originally consulted; heparin contraindicated due to bleed. Patient underwent EGD on 01/12 showing gastritis as well as ERCP with sphincterotomy. He was found to have two blood cultures growing E. coli and given significant antibiotic allergies ID was consulted. Patient currently on Aztreonam and Tigecycline. Bacteremia suspected to be secondary to acute cholecystitis given patient's concomitant RUQ, low-grade fever, and elevated LFTs and bilirubin. General surgery also consulted. He is high-risk surgical candidate at this time and it was decided to manage the cholecystitis with cholecystomy tube which was placed on 01/12. Since then, the white count and LFTs have been downtrending. Discharge Planning PT recommending rehab vs. SNF. Patient improving and may be stable for discharge in the next day or two pending recommendations from ID regarding IV antibiotic duration. Case management assisting with D/C needs. (Nani Torre MD) Attending Attestation Patient seen and examined. Case reviewed and discussed with the resident team. Agree with plan of care as discussed with me and documented in the resident note. (Alfreda Jacome MD) Problem List: (1) E coli bacteremia Status: Resolved Plan: On admission patient was septic with fever, tachycardia, leukocytosis, and lactic acidosis. Sepsis has since resolved. [place]royo-sensitive E. coli grew in both initial blood cultures suspected to be from acute cholecystitis. - Afebrile overnight (last fever was 100.9 on 01/10) - White count up to 16.6 with left shift on admission but down to 12.3 today - Lactic acid originally 3.4 and has normalized - Given abundance of antibiotic allergies, ID was consulted for assistance in management. Currently on Aztreonam (started 01/11) and Tigecycline (started 01/11) . Levaquin discontinued (01/12-01/13). Will continue to follow their recommendations; appreciate their expertise - U/A with no signs of infection (negative nitrite, leukocyte esterase) - Repeat BC no growth in 3 days - Bilious fluid growing E. coli (2) Acute cholecystitis Status: Resolved Plan: AST and ALT elevated on admission to 229 and 221, respectively, with elevated total bili to 2.1 (normal values in April 2016). Patient also complaining of epigastric and RUQ pain. Abdominal U/S demonstrated an enlarged liver with mild ascites, GB wall thickening with pericholecystic fluid, sludge and stone in the GB, and CBD distention. - ERCP with sphincterotomy 01/12 with GI. No gallstones in the CBD and clear bile was visualized; cholangitis ruled out - General surgery consulted; patient high-risk for surgery therefore IR consulted and patient underwent cholecystostomy tube placement 01/12. Plan is to reevaluate tube in 1-2 weeks - Drain putting out <100 cc bile this AM - LFTs and total bili have normalized - Pain control with Lortab 5/325 mg 1-2 tabs Q4H PRN and Dilaudid 0.5 mg IV Q2H PRN breakthrough pain - Tolerating PO (3) GI bleed Status: Resolved Plan: Patient presenting with three-days duration of black tarry stool with suspected upper GI bleed. Initial H&H 7.7/23.4 (hemoglobin in April 2016 was 14.3 ). GI consulted and EGD showed gastritis. - S/P 3 unit PRBCs - H&H improving at 11.1/34.1 today - Hemodynamically stable - Protonix 40 mg PO daily (4) Chest pain Status: Resolved Plan: Patient presented with nonradiating substernal chest pain that continues to persist. Initial EKG showed possible atrial flutter with RVR and RBBB. Repeat EKG showed NSR with RBBB and nonspecific lateral T wave changes. Serial troponins mildly elevated: 0.12 > 0.48 > 0.47 > 0.35 with normal CK and CK-MB. - Cardiology consulted; heparin C/I given GI bleed and acute serious condition ( GI bleed, bacteremia) precludes catheterization - Chest pain not suspected to be cardiac in nature at this time. Echo done showing mild LVH and EF 55% - Nitro PRN - Continue carvedilol - D/C atorvastatin since cholesterol is low and patient with transaminitis - Continue home Lisinopril 40 mg PO daily and Cardizem 480 mg QHS - Continue low-dose Carvedilol 3.125 mg PO BID (started this hospitalization) (5) Hypertension Status: Chronic Plan: BPs continue to be elevated with systolic pressure up to 190s. - Continue home Lisinopril 40 mg PO daily and Cardizem CD 480 mg PO daily - Continue carvedilol 3.125 mg PO BID started in the hospital (hesitant to increase given bradycardia) - Patient allergic to sulfa therefore avoiding HCTZ - Increase hydralazine to 50 mg PO BID and can increase to TID if necessary (6) Peripheral arterial disease Status: Chronic Plan: Left foot warm today but still with diminished pulse. No pain or discoloration. - Consider ABIs as outpatient - Pt not a vascular surgery candidate at this time (7) COPD (chronic obstructive pulmonary disease) Status: Chronic Plan: Not in exacerbation and CXR with no acute disease. - Supplemental O2 PRN - DuoNeb Q6H - Incentive spirometry (8) Dementia Status: Chronic Plan: Continue home Aricept. (9) Depression Status: Chronic Plan: Continue home Celexa. (10) History of alcohol abuse Status: Resolved Plan: In remission. No signs of withdrawal. (11) FEN/PPX Status: Acute Plan: - Fluids: Tolerating PO - Electrolytes: Monitor and replace as needed - Nutrition: Regular diet - DVT prophylaxis: Anticoagulation C/I in setting of GI bleed. Bilateral SCDs. Encourage ambulation dw Dr[facility] Problem Qualifiers (1) Hypertension: Qualified Code: I10 - Essential hypertension (2) COPD (chronic obstructive pulmonary disease): Qualified Code: J44.9 - Chronic obstructive pulmonary disease, unspecified COPD type (3) Dementia: Qualified Code: F03.90 - Dementia without behavioral disturbance, unspecified dementia type Nani Torre MD Jan 15, 2017 09:10 Alfreda Jacome MD Jan 21, 2017 12:41
--- NOTE | 2017-01-15 13:49 | HHI.IDPN ---
Subjective Subjective Remarks Notes reviewed Temps ok D/W RN Patient confused thinks its the pain meds States he can only tolerate hydrocodone Has tube in GB, draining well States abdominal pain is better Had EGD, ERCP, sphincterotomy and stent placement BC with E coli Bile C/S GNR, no anaerobes Repeat BC negative so far WBC stable Antibiotics Tygacil Azactam Lines PIV Past Medical History DM Glaucoma Hypertension COPD Mild dementia Vertigo Hearing loss Previous TIA Benign meningeal tumor frontal lobe area Spinal stenosis "inoperable" Ruptured disc lumbar spine Neuropathy Shingles Multiple skin cancers Previous alcohol abuse Kidneys stones Past Surgical History Right knee open meniscectomy I&D of left knee abscess Appendectomy Multiple back surgeries Left elbow surgery for damaged ulnar nerve Kidney stone removal Penile implant surgery Bladder implant (patient described this as a pacemaker for his bladder) Cataract surgery right and left eyes Allergies: Coded Allergies: Bactrim (Verified Allergy, Severe, Anaphylaxis, 01/10/17) Ceftin (Verified Allergy, Severe, Anaphylaxis, 01/10/17) Flagyl (Verified Allergy, Severe, Fever, colitis, 01/10/17) Penicillin (Verified Allergy, Severe, Anaphylaxis, 01/10/17) Sulfa (Verified Allergy, Severe, Anaphylaxis, 01/10/17) MRI PRECAUTION (Verified Adverse Reaction, Severe, BLADDER STIMULATOR, ) BRAIN ONLY ON RECEIVE ONLY COIL, P.O. 01/11/17, DML *MDRO Multi-Drug Resistant Organism (Verified Adverse Reaction, Unknown, MRSA, 01/13/17) MRSA PCR (nares) POSITIVE - 01/11/17 Uncoded Allergies: mycins (Allergy, Severe, Fever, colitis, 12/15/13) surgical tape (Allergy, Severe, 12/15/13) Objective . Vital Signs Date Time Temp Pulse Resp B/P Pulse Ox O2 Delivery O2 Flow Rate FiO2 01/15/17 13:20 98.0 58 18 158/70 98 01/15/17 13:19 54 01/15/17 12:48 48 01/15/17 11:23 52 01/15/17 10:00 55 01/15/17 09:05 68 01/15/17 09:05 98.0 68 18 171/74 98 01/15/17 08:41 66 01/15/17 07:24 63 01/15/17 07:21 96 21 01/15/17 06:00 68 01/15/17 05:30 98.4 68 16 196/82 93 01/15/17 04:53 16 01/15/17 04:00 98.3 70 12 203/84 95 01/15/17 04:00 70 01/15/17 02:00 63 01/15/17 00:00 66 01/15/17 00:00 98.7 66 21 174/78 97 01/14/17 22:00 61 01/14/17 20:00 98.8 62 16 188/84 96 01/14/17 20:00 62 01/14/17 19:33 97 21 01/14/17 18:00 61 01/14/17 16:00 58 01/14/17 16:00 97.5 58 12 181/80 97 01/14/17 14:00 58 01/14/17 01/14/17 01/15/17 15:00 23:00 07:00 Intake Total 2245 ml 1090 ml 691 ml Output Total 1200 ml 1135 ml 1350 ml Balance 1045 ml -45 ml -659 ml Intake Oral 1280 ml 480 ml IV Total 965 ml 610 ml 691 ml Output Urine Total 1000 ml 900 ml 1150 ml Drainage Total 200 ml 235 ml 200 ml . Laboratory Tests Test 01/14/17 01/15/17 05:11 04:06 White Blood Count 12.7 TH/MM3 12.3 TH/MM3 Red Blood Count 4.24 MIL/MM3 4.32 MIL/MM3 Hemoglobin 10.6 GM/DL 11.1 GM/DL Hematocrit 34.0 % 34.1 % Mean Corpuscular Volume 80.2 FL 78.9 FL Mean Corpuscular Hemoglobin 25.1 PG 25.8 PG Mean Corpuscular Hemoglobin 31.3 % 32.6 % Concent Red Cell Distribution Width 18.7 % 18.7 % Platelet Count 278 TH/MM3 325 TH/MM3 Mean Platelet Volume 8.4 FL 8.3 FL Neutrophils (%) (Auto) 80.4 % 74.2 % Lymphocytes (%) (Auto) 8.7 % 10.6 % Monocytes (%) (Auto) 9.8 % 13.2 % Eosinophils (%) (Auto) 0.8 % 1.5 % Basophils (%) (Auto) 0.3 % 0.5 % Neutrophils # (Auto) 10.2 TH/MM3 9.1 TH/MM3 Lymphocytes # (Auto) 1.1 TH/MM3 1.3 TH/MM3 Monocytes # (Auto) 1.2 TH/MM3 1.6 TH/MM3 Eosinophils # (Auto) 0.1 TH/MM3 0.2 TH/MM3 Basophils # (Auto) 0.0 TH/MM3 0.1 TH/MM3 CBC Comment DIFF FINAL DIFF FINAL Differential Comment Laboratory Tests Test 01/14/17 01/15/17 05:11 04:06 Sodium Level 143 MEQ/L 144 MEQ/L Potassium Level 4.2 MEQ/L 4.1 MEQ/L Chloride Level 116 MEQ/L 113 MEQ/L Carbon Dioxide Level 18.5 MEQ/L 21.0 MEQ/L Anion Gap 9 MEQ/L 10 MEQ/L Blood Urea Nitrogen 30 MG/DL 30 MG/DL Creatinine 0.86 MG/DL 0.79 MG/DL Estimat Glomerular Filtration 87 ML/MIN 96 ML/MIN Rate Random Glucose 118 MG/DL 108 MG/DL Calcium Level 8.7 MG/DL 8.8 MG/DL Total Bilirubin 1.0 MG/DL 0.8 MG/DL Aspartate Amino Transf 34 U/L 21 U/L (AST/SGOT) Alanine Aminotransferase 88 U/L 65 U/L (ALT/SGPT) Alkaline Phosphatase 389 U/L 333 U/L Total Protein 6.3 GM/DL 5.9 GM/DL Albumin 2.4 GM/DL 2.3 GM/DL Microbiology Date/Time Procedure Status Source Growth 01/13/17 14:45 Gram Stain - Final Resulted Fluid Bile Fluid 01/13/17 14:45 Body Fluid Culture - Preliminary Resulted Gram Negative Pro Imaging Abdomen Ultrasound 01/11/17 0000 Signed Impressions: Service Date/Time: Wednesday, January 11, 2017 13:45 - CONCLUSION: 1. Enlarged liver with mild ascites. 2. Gallbladder wall thickening with pericholecystic fluid, differential including acute cholecystitis and secondary changes related to liver disease. Negative sonographic Jackson's sign would favor the latter. 3. Sludge and stone in the gallbladder and common bile duct distention of uncertain etiology. Jose Browne MD Aorta CTA 01/10/17 1304 Signed Impressions: Service Date/Time: Tuesday, January 10, 2017 14:49 - CONCLUSION: 1. Atherosclerotic changes been no aneurysm or dissection. 2. Diverticulosis. 3. Slight inflammatory changes along the pancreatic head could be pancreatitis in the right clinical setting. 4. Bilateral punctate nonobstructing renal calculi. 5. Emphysema and minimal patchy density right upper lobe could be infectious or inflammatory. Gamal Solorzano MD Chest X-Ray 01/10/17 1203 Signed Impressions: Service Date/Time: Thursday, January 10, 2017 12:38 - CONCLUSION: No acute cardiopulmonary disease identified. Stuart Augustin MD Physical Exam GENERAL: awake and alert, NAD SKIN: Warm and dry. No generalized rash HEENT: [place] conjunctivae. No injection or drainage. Moist oral mucosa. NECK: Supple, nontender, no meningeal signs. CARDIOVASCULAR: Regular rate and rhythm without murmurs, gallops, or rubs. RESPIRATORY: Clear to auscultation. Breath sounds equal bilaterally. No wheezes , rales, or rhonchi. GASTROINTESTINAL: Abdomen soft, nondistended, still with tenderness in RUQ, Drain has bilious fluid. MUSCULOSKELETAL: Extremities without clubbing, cyanosis, or edema. No calf tenderness. NEUROLOGICAL: Non-focal PSYCH: Normal affect, calm and cooperative LINE: PIV with no evidence of infection Assessment & Plan Remarks IMPRESSION E coli sepsis, source, biliary source - has elevated LFTs (new) Chest pain, ?WI Multiple Abx allergies - all recorded as anaphylaxis, patient not sure RECOMMENDATION Stop Tygacil since no GPC and no anaerobes Continue IV Azactam Await bile C/S - if same E coli as in blood, will change to levaquin Monitor progress Explained plan to Told her should add Azactam and Tygacil to list of Abx that he has tolerated D/W Dr Miriam Jacome D/W Vanessa Overton MD Jan 15, 2017 13:49
--- NOTE | 2017-01-15 16:19 | HHI.PR ---
Subjective Subjective Notes DAILY PROGRESS NOTE FOR SURGICAL ATTENDING, DR. RICHARD DAVIS Resting in bed at bedside; concerned that the IV pain meds is causing him to be confused Objective Vitals/I&O Vital Signs Date Time Temp Pulse Resp B/P Pulse Ox O2 Delivery O2 Flow Rate FiO2 01/15/17 16:06 58 01/15/17 13:20 98.0 18 158/70 98 01/15/17 07:21 21 01/14/17 07:30 Nasal Cannula 2.00 Labs Laboratory Tests Test 01/15/17 04:06 White Blood Count 12.3 Red Blood Count 4.32 Hemoglobin 11.1 Hematocrit 34.1 Mean Corpuscular Volume 78.9 Mean Corpuscular Hemoglobin 25.8 Mean Corpuscular Hemoglobin 32.6 Concent Red Cell Distribution Width 18.7 Platelet Count 325 Mean Platelet Volume 8.3 Neutrophils (%) (Auto) 74.2 Lymphocytes (%) (Auto) 10.6 Monocytes (%) (Auto) 13.2 Eosinophils (%) (Auto) 1.5 Basophils (%) (Auto) 0.5 Neutrophils # (Auto) 9.1 Lymphocytes # (Auto) 1.3 Monocytes # (Auto) 1.6 Eosinophils # (Auto) 0.2 Basophils # (Auto) 0.1 CBC Comment DIFF FINAL Differential Comment Sodium Level 144 Potassium Level 4.1 Chloride Level 113 Carbon Dioxide Level 21.0 Anion Gap 10 Blood Urea Nitrogen 30 Creatinine 0.79 Estimat Glomerular Filtration 96 Rate Random Glucose 108 Calcium Level 8.8 Total Bilirubin 0.8 Aspartate Amino Transf 21 (AST/SGOT) Alanine Aminotransferase 65 (ALT/SGPT) Alkaline Phosphatase 333 Total Protein 5.9 Albumin 2.3 Date/Time Procedure Status Source Growth 01/13/17 14:45 Gram Stain - Final Resulted Fluid Bile Fluid 01/13/17 14:45 Body Fluid Culture - Preliminary Resulted Gram Negative Pro 01/11/17 15:11 Aerobic Blood Culture - Preliminary Resulted Blood Peripheral NO GROWTH IN 4 DAYS 01/11/17 15:11 Anaerobic Blood Culture - Preliminary Resulted Blood Peripheral NO GROWTH IN 4 DAYS 01/10/17 19:00 Aerobic Blood Culture - Final Complete Blood Peripheral Escherichia Coli 01/10/17 19:00 Anaerobic Blood Culture - Final Complete Escherichia Coli Radiology Last Impressions GI Procedure 01/12/17 0000 Signed Impressions: Service Date/Time: Thursday, January 12, 2017 15:24 - CONCLUSION: ERCP as above. Gamal Solorzano MD Abdomen Ultrasound 01/11/17 0000 Signed Impressions: Service Date/Time: Wednesday, January 11, 2017 13:45 - CONCLUSION: 1. Enlarged liver with mild ascites. 2. Gallbladder wall thickening with pericholecystic fluid, differential including acute cholecystitis and secondary changes related to liver disease. Negative sonographic Jackson's sign would favor the latter. 3. Sludge and stone in the gallbladder and common bile duct distention of uncertain etiology. Jose Browne MD Aorta CTA 01/10/17 1304 Signed Impressions: Service Date/Time: Tuesday, January 10, 2017 14:49 - CONCLUSION: 1. Atherosclerotic changes been no aneurysm or dissection. 2. Diverticulosis. 3. Slight inflammatory changes along the pancreatic head could be pancreatitis in the right clinical setting. 4. Bilateral punctate nonobstructing renal calculi. 5. Emphysema and minimal patchy density right upper lobe could be infectious or inflammatory. Gamal Solorzano MD Chest X-Ray 01/10/17 1203 Signed Impressions: Service Date/Time: Tuesday, January 10, 2017 12:38 - CONCLUSION: No acute cardiopulmonary disease identified. Stuart Augustni MD Cardiovascular: Regular Lungs: Clear Abdomen: Other (yandy tube in place (bile drainage in collection bag); non tender ) Extremities: No edema A/P Problem List: (1) Abnormal LFTs (2) Acute cholecystitis due to biliary calculus (3) Bacteremia due to Gram-negative bacteria (4) GI bleed (5) Elevated troponin (6) Dementia (7) COPD (chronic obstructive pulmonary disease) (8) Diabetes (9) Neuropathy (10) penitentiary (current) use of antithrombotics/antiplatelets Assessment and Plan 71 year old male with acute cholecystitis due to biliary calculus -Continue yandy tube to gravity -Regular diet -DC IV Dilaudid per family request -OOB and mobilize NOTE FOR SURGICAL ATTENDING, DR. RICHARD DAVIS I agree with above assessment and plan. The exam, history, and the medical decision-making described in the above note were completed with the assistance of the mid-level provider. I reviewed and agree with the findings presented. I attest that I had a [id number] encounter with the patient on the same day, and personally performed and documented my assessment and findings in the medical record. The following services were provided during this hospital visit: Chart data review, vital sign assessments/reviewing monitor data Review of consultations notes if present. Medication orders/review and/or management Ordering and/or reviewing lab tests Ordering and/or interpreting/reviewing x-rays and/or diagnostic studies Care of the patient and discussion of the patient with the care team Documentation time To help prompt me to consider important information that might be impacting today's encounter and assessment, information from prior notes written by myself or my colleagues may have been "brought forward/copy and pasted" into today's note. Problem Qualifiers (1) Dementia: Qualified Code: F03.90 - Dementia without behavioral disturbance, unspecified dementia type (2) COPD (chronic obstructive pulmonary disease): Qualified Code: J44.9 - Chronic obstructive pulmonary disease, unspecified COPD type Amy Norman Jan 15, 2017 16:19 Richard Davis MD Jan 16, 2017 12:47
[2017-01-15] MEDS: DILTIAZEM-CD 240 MG CAP ER PO SCH (20:16)
[2017-01-15] MEDS: DONEPEZIL HCL 5 MG TAB PO SCH (20:16)
[2017-01-16] VITALS (16 sets, daily range): BP systolic 144–192; BP diastolic 78–92; PULSE 54–68; RESP 18–20; TEMP 98–99.2; O2SAT 97–98
[2017-01-16] MEDS: cloNIDine HCL 0.2 MG TAB PO PRN (03:50)
[2017-01-16] MEDS: CHLORHEXIDINE GLUCONATE 2 % 1 PACK (2 CLOTHS)(taper/protocol) TOP SCH (04:00)
[2017-01-16] MEDS: SODIUM CHLORIDE FLUSH BID SCH ×2 (05:45→13:38)
--- NOTE | 2017-01-16 08:24 | HHI.FPPN ---
Subjective Remarks Pt seen and examined this morning. No acute events overnight. Patient's only complaint is, "I'm bored." Denies pain anywhere. Tolerating PO without nausea or vomiting. Ambulating with PT. Feels ready to go. (Nani Torre MD) Objective Vitals Vital Signs Date Time Temp Pulse Resp B/P Pulse Ox O2 Delivery O2 Flow Rate FiO2 01/16/17 08:04 62 01/16/17 07:54 62 01/16/17 06:00 57 01/16/17 05:00 54 01/16/17 04:00 62 01/16/17 04:00 98.9 64 20 185/78 97 01/16/17 03:00 58 01/16/17 02:00 60 01/16/17 01:00 62 01/16/17 00:00 99.2 65 20 173/79 97 01/16/17 00:00 64 01/15/17 23:00 68 01/15/17 22:00 66 01/15/17 21:00 68 01/15/17 20:00 62 01/15/17 20:00 98.5 64 20 178/84 98 01/15/17 18:01 64 01/15/17 17:07 58 01/15/17 16:17 01/15/17 16:06 58 01/15/17 15:15 58 01/15/17 14:56 64 01/15/17 13:20 98.0 58 18 158/70 98 01/15/17 13:19 54 01/15/17 12:48 48 01/15/17 11:23 52 01/15/17 10:00 55 01/15/17 09:05 68 01/15/17 09:05 98.0 68 18 171/74 98 01/15/17 08:41 66 I/O 01/15/17 01/15/17 01/15/17 01/16/17 01/16/17 01/16/17 07:00 15:00 23:00 07:00 15:00 23:00 Intake Total 691 ml 1670 ml 240 ml Output Total 1350 ml 200 ml 1950 ml Balance -659 ml 1470 ml -1710 ml Intake Oral 720 ml 240 ml IV Total 691 ml 950 ml Output Urine Total 1150 ml 1700 ml Drainage Total 200 ml 200 ml 250 ml # Voids 3 (Nani Torre MD) Result Diagram: 01/15/1740501/15/17405 Objective Remarks GENERAL: WN, WD male laying in bed in NAD. SKIN: Warm and dry without rash. No jaundice. HEENT: Pupils equal and round. No conjunctival injection. MMM. HEART: Distant heart sounds. RRR no m/r/g. LUNGS: Equal bilaterally with no accessory muscle use. ABDOMEN: +BS. Drain in RUQ with <100 cc bilious output. Abdomen soft, NT, ND. No guarding or rebound. EXTREMITIES: No LE edema. L pedal pulses barely palpable, right pedal pulses 2+ . No discoloration of toes or ulcers noted bilaterally. NEURO: Awake and alert. (Nani Torre MD) A/P Assessment and Plan 71 year old male with history of DM, COPD, HTN, mild dementia, TIA with CEA, spinal stenosis, and alcoholism (quit for nine years) was admitted on 01/10 for chest pain with mildly elevated troponins, RUQ pain with elevated LFTs , and three days of black tarry stools with hemoglobin 7.3. Patient was transfused 3 units PRBCs. Cardiology and GI were originally consulted; heparin contraindicated due to bleed. Patient underwent EGD on 01/12 showing gastritis as well as ERCP with sphincterotomy. He was found to have two blood cultures growing E. coli and given significant antibiotic allergies ID was consulted. Patient currently on Aztreonam and Tigecycline. Bacteremia suspected to be secondary to acute cholecystitis given patient's concomitant RUQ, low-grade fever, and elevated LFTs and bilirubin. General surgery also consulted. Since he is high-risk, it was decided to manage the cholecystitis with cholecystomy tube which was placed on 01/12. Since then, the white count and LFTs have been downtrending. Second set of blood cultures without growth. Discharge Planning Anticipate D/C to [place] or SNF today. Case management assisting with D/C needs. (Nani Torre MD) Attending Attestation Patient seen and examined. Case reviewed and discussed with the resident team. Agree with plan of care as discussed with me and documented in the resident note. (Alfreda Jacome MD) Problem List: (1) E coli bacteremia Status: Resolved Plan: On admission patient was septic with fever, tachycardia, leukocytosis, and lactic acidosis. Sepsis has since resolved. Arroyo-sensitive E. coli grew in both initial blood cultures suspected to be from acute cholecystitis. - Afebrile overnight (last fever was 100.9 on 01/10) - White count up to 16.6 with left shift on admission but down to 12.6 today - Lactic acid originally 3.4 and has normalized - U/A with no signs of infection (negative nitrite, leukocyte esterase) - Given abundance of antibiotic allergies, ID was consulted for assistance in management. Currently on Aztreonam (started 01/11). Discontinued Tigecycline (-01/15) and Levaquin (01/12-01/13). Bile fluid growing Arroyo-sensitive E. coli. Patient to be switched to PO Levaquin today with duration pending ID reccs - Repeat BC no growth in 4 days - Bilious fluid growing arroyo-sensitive E. coli (2) Acute cholecystitis Status: Resolved Plan: AST and ALT elevated on admission to 229 and 221, respectively, with elevated total bili to 2.1 (normal values in April 2016). Patient also complaining of epigastric and RUQ pain. Abdominal U/S demonstrated an enlarged liver with mild ascites, GB wall thickening with pericholecystic fluid, sludge and stone in the GB, and CBD distention. - ERCP with sphincterotomy 01/12 with GI. No gallstones in the CBD and clear bile was visualized; cholangitis ruled out - General surgery consulted; patient high-risk for surgery therefore IR consulted and patient underwent cholecystostomy tube placement 01/12. Plan is to reevaluate tube in 1-2 weeks - Drain putting out <100 cc bile this AM - LFTs and total bili have normalized - Pain control with Lortab 5/325 mg 1-2 tabs Q4H PRN - Tolerating PO (3) GI bleed Status: Resolved Plan: Patient presenting with three-days duration of black tarry stool with suspected upper GI bleed. Initial H&H 7.7/23.4 (hemoglobin in April 2016 was 14.3 ). GI consulted and EGD showed gastritis. - S/P 3 unit PRBCs - H&H improved. 10.9/33.6 today - Hemodynamically stable - Protonix 40 mg PO daily (4) Chest pain Status: Resolved Plan: Patient presented with nonradiating substernal chest pain that continues to persist. Initial EKG showed possible atrial flutter with RVR and RBBB. Repeat EKG showed NSR with RBBB and nonspecific lateral T wave changes. Serial troponins mildly elevated: 0.12 > 0.48 > 0.47 > 0.35 with normal CK and CK-MB. - Cardiology consulted; heparin C/I given GI bleed and acute serious condition ( GI bleed, bacteremia) precludes catheterization - Chest pain not suspected to be cardiac in nature at this time. Echo done showing mild LVH and EF 55% - Nitro PRN - Continue carvedilol - D/C atorvastatin since cholesterol is low and patient with transaminitis - Continue home Lisinopril 40 mg PO daily and Cardizem 480 mg QHS - Continue low-dose Carvedilol 3.125 mg PO BID (started this hospitalization) (5) Hypertension Status: Chronic Plan: BPs continue to be elevated with systolic pressure up to 190s. - Continue home Lisinopril 40 mg PO daily and Cardizem CD 480 mg PO daily - Continue carvedilol 3.125 mg PO BID started in the hospital (hesitant to increase given bradycardia) - Patient allergic to sulfa therefore avoiding HCTZ - Increase hydralazine to 50 mg PO TID (6) Peripheral arterial disease Status: Chronic Plan: Left foot warm today but still with diminished pulse. No pain or discoloration. - Consider ABIs as outpatient - Pt not a vascular surgery candidate at this time (7) COPD (chronic obstructive pulmonary disease) Status: Chronic Plan: Not in exacerbation and CXR with no acute disease. - Supplemental O2 PRN - DuoNeb Q6H - Incentive spirometry (8) Dementia Status: Chronic Plan: Continue home Aricept. (9) Depression Status: Chronic Plan: Continue home Celexa. (10) History of alcohol abuse Status: Resolved Plan: In remission. No signs of withdrawal. (11) FEN/PPX Status: Acute Plan: - Fluids: Tolerating PO - Electrolytes: Monitor and replace as needed - Nutrition: Regular diet - DVT prophylaxis: Anticoagulation C/I in setting of GI bleed. Bilateral SCDs. Encourage ambulation dw Dr. [facility] Problem Qualifiers (1) Hypertension: Qualified Code: I10 - Essential hypertension (2) COPD (chronic obstructive pulmonary disease): Qualified Code: J44.9 - Chronic obstructive pulmonary disease, unspecified COPD type (3) Dementia: Qualified Code: F03.90 - Dementia without behavioral disturbance, unspecified dementia type Nani Torre MD Jan 16, 2017 08:24 Alfreda Jacome MD Jan 21, 2017 12:41
[2017-01-16] MEDS: CARVEDILOL 3.125 MG TAB PO SCH (08:36)
[2017-01-16] MEDS: ASPIRIN 81 MG CHEW TAB CHEW SCH (08:36)
[2017-01-16] MEDS: LISINOPRIL 20 MG TAB PO SCH (08:36)
[2017-01-16] MEDS: CITALOPRAM HYDROBROMIDE 20 MG TAB PO SCH (08:36)
[2017-01-16] MEDS: AZTREONAM INJ 2,000 MG in SODIUM CHLORIDE 0.9% INJ 100 ML IV SCH (08:37)
[2017-01-16] MEDS: BUDESONIDE-FORMOTEROL 160/4.5 MCG INHALER INH SCH (08:38)
[2017-01-16] MEDS: hydrALAZINE HCL 50 MG TAB PO SCH ×2 (08:47→13:00)
[2017-01-16 08:51] LABS: AUTOMATED NEUTROPHIL # 9.3 TH/MM3 (1.8-7.7); BASOPHIL # 0.1 TH/MM3 (0-0.2); BASOPHIL % 0.5 % (0.0-2.0); EOSINOPHIL # 0.1 TH/MM3 (0-0.4); HEMATOCRIT 33.6 % (39.0-51.0); HEMO FLAGS DIFF FINAL; LYMPH % 11.5 % (9.0-44.0); LYMPHOCYTE # 1.5 TH/MM3 (1.0-4.8); MEAN CELL VOLUME 78.2 FL (80.0-100.0); MEAN CORPUSCULAR HEMOGLOBIN 25.5 PG (27.0-34.0); MEAN CORPUSCULAR HGB CONC 32.6 % (32.0-36.0); MONO % 13.1 % (0.0-8.0); NEUT % 73.9 % (16.0-70.0); PLATELET COUNT 320 TH/MM3 (150-450); RED BLOOD COUNT 4.29 MIL/MM3 (4.50-5.90); RED CELL DISTRIBUTION WIDTH 18.9 % (11.6-17.2); WHITE BLOOD COUNT 12.6 TH/MM3 (4.0-11.0)
[2017-01-16] MEDS ORDERED: PANTOPRAZOLE SOD 40 MG DELAYED RELEASE TAB PO SCH (09:00)
[2017-01-16 09:16] LABS: ALKALINE PHOSPHATASE 315 U/L (45-117); ALT (GPT) 50 U/L (12-78); ANION GAP 9 MEQ/L (5-15); AST (GOT) 20 U/L (15-37); BICARBONATE 19.9 MEQ/L (21.0-32.0); BLOOD UREA NITROGEN 29 MG/DL (7-18); CHLORIDE 113 MEQ/L (98-107); GLOMERULAR FILTRATION RATE 95 ML/MIN (>89); POTASSIUM 3.8 MEQ/L (3.5-5.1); SODIUM (NA) 142 MEQ/L (136-145); TOTAL BILIRUBIN ADULT 1.1 MG/DL (0.2-1.0)
--- NOTE | 2017-01-16 10:49 | HHI.PR ---
Subjective Subjective Notes DAILY PROGRESS NOTE FOR SURGICAL ATTENDING, DR. RICHARD DAVIS Getting bath by nurses in the room Ate breakfast Objective Vitals/I&O Vital Signs Date Time Temp Pulse Resp B/P Pulse Ox O2 Delivery O2 Flow Rate FiO2 01/16/17 10:30 62 01/16/17 08:47 98.0 18 192/92 98 01/15/17 07:21 21 01/14/17 07:30 Nasal Cannula 2.00 Labs Laboratory Tests Test 01/16/17 08:35 White Blood Count 12.6 Red Blood Count 4.29 Hemoglobin 10.9 Hematocrit 33.6 Mean Corpuscular Volume 78.2 Mean Corpuscular Hemoglobin 25.5 Mean Corpuscular Hemoglobin 32.6 Concent Red Cell Distribution Width 18.9 Platelet Count 320 Mean Platelet Volume 8.1 Neutrophils (%) (Auto) 73.9 Lymphocytes (%) (Auto) 11.5 Monocytes (%) (Auto) 13.1 Eosinophils (%) (Auto) 1.0 Basophils (%) (Auto) 0.5 Neutrophils # (Auto) 9.3 Lymphocytes # (Auto) 1.5 Monocytes # (Auto) 1.7 Eosinophils # (Auto) 0.1 Basophils # (Auto) 0.1 CBC Comment DIFF FINAL Differential Comment Sodium Level 142 Potassium Level 3.8 Chloride Level 113 Carbon Dioxide Level 19.9 Anion Gap 9 Blood Urea Nitrogen 29 Creatinine 0.80 Estimat Glomerular Filtration 95 Rate Random Glucose 97 Calcium Level 8.1 Total Bilirubin 1.1 Aspartate Amino Transf 20 (AST/SGOT) Alanine Aminotransferase 50 (ALT/SGPT) Alkaline Phosphatase 315 Total Protein 5.6 Albumin 2.2 Date/Time Procedure Status Source Growth 01/13/17 14:45 Gram Stain - Final Complete Fluid Bile Fluid 01/13/17 14:45 Body Fluid Culture - Final Complete Escherichia Coli 01/11/17 15:11 Aerobic Blood Culture - Preliminary Resulted Blood Peripheral NO GROWTH IN 4 DAYS 01/11/17 15:11 Anaerobic Blood Culture - Preliminary Resulted Blood Peripheral NO GROWTH IN 4 DAYS Radiology Last Impressions GI Procedure 01/12/17 0000 Signed Impressions: Service Date/Time: Thursday, January 12, 2017 15:24 - CONCLUSION: ERCP as above. Gamal Solorzano MD Abdomen Ultrasound 01/11/17 0000 Signed Impressions: Service Date/Time: Wednesday, January 11, 2017 13:45 - CONCLUSION: 1. Enlarged liver with mild ascites. 2. Gallbladder wall thickening with pericholecystic fluid, differential including acute cholecystitis and secondary changes related to liver disease. Negative sonographic Jackson's sign would favor the latter. 3. Sludge and stone in the gallbladder and common bile duct distention of uncertain etiology. Jose Browne MD Aorta CTA 01/10/17 1304 Signed Impressions: Service Date/Time: Tuesday, January 10, 2017 14:49 - CONCLUSION: 1. Atherosclerotic changes been no aneurysm or dissection. 2. Diverticulosis. 3. Slight inflammatory changes along the pancreatic head could be pancreatitis in the right clinical setting. 4. Bilateral punctate nonobstructing renal calculi. 5. Emphysema and minimal patchy density right upper lobe could be infectious or inflammatory. Gamal Solorzano MD Chest X-Ray 01/10/17 1203 Signed Impressions: Service Date/Time: Tuesday, January 10, 2017 12:38 - CONCLUSION: No acute cardiopulmonary disease identified. Stuart Augustin MD Cardiovascular: Regular Lungs: Clear Abdomen: Other (obese abdomen; Odilia tube in place with bile drainage in place) Extremities: No edema A/P Problem List: (1) Abnormal LFTs (2) Acute cholecystitis due to biliary calculus (3) Bacteremia due to Gram-negative bacteria (4) GI bleed (5) Elevated troponin (6) Dementia (7) COPD (chronic obstructive pulmonary disease) (8) Diabetes (9) Neuropathy (10) intermediate (current) use of antithrombotics/antiplatelets Assessment and Plan 71 year old male with acute cholecystitis due to biliary calculus -Continue odilia tube to gravity -Tolerating regular diet -Pain controlled with oral pain medications -Antibiotics per ID -OOB and mobilize -Will not see over the weekend but please call with questions Attending Statement NOTE FOR SURGICAL ATTENDING, DR. RICHARD DAVIS I agree with above assessment and plan. Evaluate cholecystotomy tube middle of next week to examine patency of cystic duct The exam, history, and the medical decision-making described in the above note were completed with the assistance of the mid-level provider. I reviewed and agree with the findings presented. I attest that I had a [id number] encounter with the patient on the same day, and personally performed and documented my assessment and findings in the medical record. The following services were provided during this hospital visit: Chart data review, vital sign assessments/reviewing monitor data Review of consultations notes if present. Medication orders/review and/or management Ordering and/or reviewing lab tests Ordering and/or interpreting/reviewing x-rays and/or diagnostic studies Care of the patient and discussion of the patient with the care team Documentation time To help prompt me to consider important information that might be impacting today's encounter and assessment, information from prior notes written by myself or my colleagues may have been "brought forward/copy and pasted" into today's note. Problem Qualifiers (1) Dementia: Qualified Code: F03.90 - Dementia without behavioral disturbance, unspecified dementia type (2) COPD (chronic obstructive pulmonary disease): Qualified Code: J44.9 - Chronic obstructive pulmonary disease, unspecified COPD type Amy Norman Jan 16, 2017 10:49 Richard Davis MD Jan 16, 2017 12:49
[2017-01-16] MEDS ORDERED: CARV3.125 PO (12:38)
[2017-01-16] MEDS ORDERED: PANT40TA3 PO (12:38)
[2017-01-16] MEDS ORDERED: CELE20TA PO (12:38)
[2017-01-16] MEDS ORDERED: HYDR-3516 PO (12:38)
[2017-01-16] MEDS ORDERED: Aspirin Chew CHEW (12:38)
[2017-01-16] MEDS ORDERED: HYDR50TA15 PO (12:38)
[2017-01-16] MEDS ORDERED: LEVA750T PO (12:39)
--- NOTE | 2017-01-16 12:40 | HHI.DCPOC ---
Discharge Care Plan Diagnosis: (1) E coli bacteremia (2) Acute cholecystitis (3) GI bleed Goals to Promote Your Health * To prevent worsening of your condition and complications * To maintain your health at the optimal level Directions to Meet Your Goals Take your medications as prescribed Follow your dietary instruction Follow activity as directed Keep your appointments as scheduled Take your immunizations and boosters as scheduled If your symptoms worsen call your PCP, if no PCP go to Urgent Care Center or Emergency Room Smoking is Dangerous to Your Health. Avoid second hand smoke Call the 24-hour hour crisis hotline for domestic abuse at Nani Torre MD Jan 16, 2017 12:40
[2017-01-16] MEDS ORDERED: LEVOFLOXACIN 750 MG TAB PO SCH (13:00)
--- NOTE | 2017-01-16 13:56 | HHI.IDPN ---
Subjective Subjective Remarks Notes reviewed Temps ok Spoke with Dr Kaushik Torre earlier today D/W RN Patient accepted at [facility] and has a bed today Fluid C/S with pansensitive E colie Has tube in GB, draining well States abdominal pain is better Had EGD, ERCP, sphincterotomy and stent placement BC with E coli Repeat BC negative so far WBC stable Antibiotics Azactam Lines PIV Past Medical History DM Glaucoma Hypertension COPD Mild dementia Vertigo Hearing loss Previous TIA Benign meningeal tumor frontal lobe area Spinal stenosis "inoperable" Ruptured disc lumbar spine Neuropathy Shingles Multiple skin cancers Previous alcohol abuse Kidneys stones Past Surgical History Right knee open meniscectomy I&D of left knee abscess Appendectomy Multiple back surgeries Left elbow surgery for damaged ulnar nerve Kidney stone removal Penile implant surgery Bladder implant (patient described this as a pacemaker for his bladder) Cataract surgery right and left eyes Allergies: Coded Allergies: Bactrim (Verified Allergy, Severe, Anaphylaxis, 01/10/17) Ceftin (Verified Allergy, Severe, Anaphylaxis, 01/10/17) Flagyl (Verified Allergy, Severe, Fever, colitis, 01/10/17) Penicillin (Verified Allergy, Severe, Anaphylaxis, 01/10/17) Sulfa (Verified Allergy, Severe, Anaphylaxis, 01/10/17) MRI PRECAUTION (Verified Adverse Reaction, Severe, BLADDER STIMULATOR, ) BRAIN ONLY ON RECEIVE ONLY COIL, P.O. 01/11/17, DML *MDRO Multi-Drug Resistant Organism (Verified Adverse Reaction, Unknown, MRSA, 01/13/17) MRSA PCR (nares) POSITIVE - 01/11/17 Uncoded Allergies: mycins (Allergy, Severe, Fever, colitis, 12/15/13) surgical tape (Allergy, Severe, 12/15/13) Objective . Vital Signs Date Time Temp Pulse Resp B/P Pulse Ox O2 Delivery O2 Flow Rate FiO2 01/16/17 13:09 64 01/16/17 12:43 98.0 68 18 144/80 98 01/16/17 12:35 68 01/16/17 11:05 62 01/16/17 10:30 62 01/16/17 09:49 64 01/16/17 08:47 98.0 68 18 192/92 98 01/16/17 08:04 62 01/16/17 07:54 62 01/16/17 06:00 57 01/16/17 05:00 54 01/16/17 04:00 62 01/16/17 04:00 98.9 64 20 185/78 97 01/16/17 03:00 58 01/16/17 02:00 60 01/16/17 01:00 62 01/16/17 00:00 99.2 65 20 173/79 97 01/16/17 00:00 64 01/15/17 23:00 68 01/15/17 22:00 66 01/15/17 21:00 68 01/15/17 20:00 62 01/15/17 20:00 98.5 64 20 178/84 98 01/15/17 18:01 64 01/15/17 17:07 58 01/15/17 16:17 01/15/17 16:06 58 01/15/17 15:15 58 01/15/17 14:56 64 01/15/17 01/15/17 01/16/17 15:00 23:00 07:00 Intake Total 1670 ml 240 ml Output Total 200 ml 1950 ml Balance 1470 ml -1710 ml Intake Oral 720 ml 240 ml IV Total 950 ml Output Urine Total 1700 ml Drainage Total 200 ml 250 ml # Voids 3 . Laboratory Tests Test 01/15/17 01/16/17 04:06 08:35 White Blood Count 12.3 TH/MM3 12.6 TH/MM3 Red Blood Count 4.32 MIL/MM3 4.29 MIL/MM3 Hemoglobin 11.1 GM/DL 10.9 GM/DL Hematocrit 34.1 % 33.6 % Mean Corpuscular Volume 78.9 FL 78.2 FL Mean Corpuscular Hemoglobin 25.8 PG 25.5 PG Mean Corpuscular Hemoglobin 32.6 % 32.6 % Concent Red Cell Distribution Width 18.7 % 18.9 % Platelet Count 325 TH/MM3 320 TH/MM3 Mean Platelet Volume 8.3 FL 8.1 FL Neutrophils (%) (Auto) 74.2 % 73.9 % Lymphocytes (%) (Auto) 10.6 % 11.5 % Monocytes (%) (Auto) 13.2 % 13.1 % Eosinophils (%) (Auto) 1.5 % 1.0 % Basophils (%) (Auto) 0.5 % 0.5 % Neutrophils # (Auto) 9.1 TH/MM3 9.3 TH/MM3 Lymphocytes # (Auto) 1.3 TH/MM3 1.5 TH/MM3 Monocytes # (Auto) 1.6 TH/MM3 1.7 TH/MM3 Eosinophils # (Auto) 0.2 TH/MM3 0.1 TH/MM3 Basophils # (Auto) 0.1 TH/MM3 0.1 TH/MM3 CBC Comment DIFF FINAL DIFF FINAL Differential Comment Laboratory Tests Test 01/15/17 01/16/17 04:06 08:35 Sodium Level 144 MEQ/L 142 MEQ/L Potassium Level 4.1 MEQ/L 3.8 MEQ/L Chloride Level 113 MEQ/L 113 MEQ/L Carbon Dioxide Level 21.0 MEQ/L 19.9 MEQ/L Anion Gap 10 MEQ/L 9 MEQ/L Blood Urea Nitrogen 30 MG/DL 29 MG/DL Creatinine 0.79 MG/DL 0.80 MG/DL Estimat Glomerular Filtration 96 ML/MIN 95 ML/MIN Rate Random Glucose 108 MG/DL 97 MG/DL Calcium Level 8.8 MG/DL 8.1 MG/DL Total Bilirubin 0.8 MG/DL 1.1 MG/DL Aspartate Amino Transf 21 U/L 20 U/L (AST/SGOT) Alanine Aminotransferase 65 U/L 50 U/L (ALT/SGPT) Alkaline Phosphatase 333 U/L 315 U/L Total Protein 5.9 GM/DL 5.6 GM/DL Albumin 2.3 GM/DL 2.2 GM/DL Microbiology Date/Time Procedure Status Source Growth 01/13/17 14:45 Gram Stain - Final Complete Fluid Bile Fluid 01/13/17 14:45 Body Fluid Culture - Final Complete Escherichia Coli Imaging Abdomen Ultrasound 01/11/17 0000 Signed Impressions: Service Date/Time: Wednesday, January 11, 2017 13:45 - CONCLUSION: 1. Enlarged liver with mild ascites. 2. Gallbladder wall thickening with pericholecystic fluid, differential including acute cholecystitis and secondary changes related to liver disease. Negative sonographic Jackson's sign would favor the latter. 3. Sludge and stone in the gallbladder and common bile duct distention of uncertain etiology. Jose Browne MD Aorta CTA 01/10/17 1304 Signed Impressions: Service Date/Time: Tuesday, January 10, 2017 14:49 - CONCLUSION: 1. Atherosclerotic changes been no aneurysm or dissection. 2. Diverticulosis. 3. Slight inflammatory changes along the pancreatic head could be pancreatitis in the right clinical setting. 4. Bilateral punctate nonobstructing renal calculi. 5. Emphysema and minimal patchy density right upper lobe could be infectious or inflammatory. Gamal Solorzano MD Chest X-Ray 01/10/17 1203 Signed Impressions: Service Date/Time: Tuesday, January 10, 2017 12:38 - CONCLUSION: No acute cardiopulmonary disease identified. Stuart Augustin MD Assessment & Plan Remarks IMPRESSION E coli sepsis, source, biliary source - has elevated LFTs (new), imrpving - has tube in GB Chest pain, ?[place] Multiple Abx allergies - all recorded as anaphylaxis, patient not sure RECOMMENDATION Change to po Levaquin, give 14 days Patient will follow-up with surgery and decide on timing of surgery Stable from ID standpoint to to rehab D/W Dr Torre Spoke with Vanessa Overton MD Jan 16, 2017 13:56
[2017-01-16] MEDS ORDERED: CYCL1TAB29 PO (14:56)
[2017-01-16] MEDS ORDERED: ASPI81CH3 CHEW (14:56)
--- NOTE | 2017-01-19 10:28 | HHI.DS ---
Discharge Summary Admission Date Jan 10, 2017 at 16:43 Discharge Date: Jan 16, 2017 Admitting Diagnosis NSTEMI, GI bleed (1) E coli bacteremia Plan: On admission patient was septic with fever, tachycardia, leukocytosis, and lactic acidosis. Sepsis has since resolved. Jarvis-sensitive E. coli grew in both initial blood cultures suspected to be from acute cholecystitis. - Afebrile overnight (last fever was 100.9 on 01/10) - White count up to 16.6 with left shift on admission but down to 12.6 today - Lactic acid originally 3.4 and has normalized - U/A with no signs of infection (negative nitrite, leukocyte esterase) - Given abundance of antibiotic allergies, ID was consulted for assistance in management. Currently on Aztreonam (started 01/11). Discontinued Tigecycline (-01/15) and Levaquin (01/12-01/13). Bile fluid growing Jarvis-sensitive E. coli. Patient to be switched to PO Levaquin today with duration pending ID reccs - Repeat BC no growth in 4 days - Bilious fluid growing jarvis-sensitive E. coli (2) Acute cholecystitis Plan: AST and ALT elevated on admission to 229 and 221, respectively, with elevated total bili to 2.1 (normal values in April 2016). Patient also complaining of epigastric and RUQ pain. Abdominal U/S demonstrated an enlarged liver with mild ascites, GB wall thickening with pericholecystic fluid, sludge and stone in the GB, and CBD distention. - ERCP with sphincterotomy 01/12 with GI. No gallstones in the CBD and clear bile was visualized; cholangitis ruled out - General surgery consulted; patient high-risk for surgery therefore IR consulted and patient underwent cholecystostomy tube placement 01/12. Plan is to reevaluate tube in 1-2 weeks - Drain putting out <100 cc bile this AM - LFTs and total bili have normalized - Pain control with Lortab 5/325 mg 1-2 tabs Q4H PRN - Tolerating PO (3) GI bleed Plan: Patient presenting with three-days duration of black tarry stool with suspected upper GI bleed. Initial H&H 7.7/23.4 (hemoglobin in April 2016 was 14.3 ). GI consulted and EGD showed gastritis. - S/P 3 unit PRBCs - H&H improved. 10.9/33.6 today - Hemodynamically stable - Protonix 40 mg PO daily (4) Chest pain Plan: Patient presented with nonradiating substernal chest pain that continues to persist. Initial EKG showed possible atrial flutter with RVR and RBBB. Repeat EKG showed NSR with RBBB and nonspecific lateral T wave changes. Serial troponins mildly elevated: 0.12 > 0.48 > 0.47 > 0.35 with normal CK and CK-MB. - Cardiology consulted; heparin C/I given GI bleed and acute serious condition ( GI bleed, bacteremia) precludes catheterization - Chest pain not suspected to be cardiac in nature at this time. Echo done showing mild LVH and EF 55% - Nitro PRN - Continue carvedilol - D/C atorvastatin since cholesterol is low and patient with transaminitis - Continue home Lisinopril 40 mg PO daily and Cardizem 480 mg QHS - Continue low-dose Carvedilol 3.125 mg PO BID (started this hospitalization) (5) Hypertension Plan: BPs continue to be elevated with systolic pressure up to 190s. - Continue home Lisinopril 40 mg PO daily and Cardizem CD 480 mg PO daily - Continue carvedilol 3.125 mg PO BID started in the hospital (hesitant to increase given bradycardia) - Patient allergic to sulfa therefore avoiding HCTZ - Increase hydralazine to 50 mg PO TID (6) Peripheral arterial disease Plan: Left foot warm today but still with diminished pulse. No pain or discoloration. - Consider ABIs as outpatient - Pt not a vascular surgery candidate at this time (7) COPD (chronic obstructive pulmonary disease) Plan: Not in exacerbation and CXR with no acute disease. - Supplemental O2 PRN - DuoNeb Q6H - Incentive spirometry (8) Dementia Plan: Continue home Aricept. (9) Depression Plan: Continue home Celexa. (10) History of alcohol abuse Plan: In remission. No signs of withdrawal. Consultants Critical care General surgery Gastroenterology Infectious disease Cardiology Interventional radiology Procedures 01/12/17: ERCP with sphincterotomy 01/12/17: Cholecystostomy tube placement Brief History Mr Garcia is a 71-year-old male with past medical history of diabetes, COPD who presented with chest pain since the morning of admission morning and tarry stools 1 week at least though the pt is a poor historian and reports abnormal stools on and off for a year. Patient states his chest pain started around 6: 00 the morning of admission. Chest pain is located in the center of his chest and underneath his ribs. He was going to the bathroom when the pain started. The pain was 8 out of 10, nonradiating. Sharp pain. The pain was constant until he was evaluated in the emergency room and given medications for it. He was given aspirin in the emergency room. He felt both hot and cold since the morning of admission. He felt short of breath that morning which was improved with his inhaler. Normally the patient has 1 bowel movement daily. Over the last week the patient has had 5-10 bowel movements per day. He states they are "tarry." No nausea. He has vomited one time this morning nonbloody. His last colonoscopy was in 2000. On exam today he complained about chest pain when asked. He stated he has had chest pain coming and going since admission but he has not wanted to complain about it. He was urged to let his Drs and nurses know when he was having problems so we could try to help him. He felt better with his chest pain after getting NTG today. He also described 3 areas of pain including substernal, upper abdomen and that these were all hurting simultaneously but after the NTG his chest pain felt better though some other pain persisted. He is a difficult historian as he "does not want to complain about his pain". He received a unit of blood and his repeat hemoglobin was 7.3. He is getting more blood today. He also was bacteremic in 2 culture bottles with gram negative rods. He reports extensive and severe allergies to so many antibiotics and states that "the only antibiotics I can take are Cipro and Levaquin." When asked about antibiotics he reported "my hands all peeled and I was terribly sick from mycins." Though he could not remember the exact problems he had with each antibiotic, he refused everything for now except Levaquin which hopefully is enough for his gram negative rods. Initially, his lactic acid was high but has come down and his LFTs have been somewhat elevated. His CTA of his aorta showed possible pancreatitis and his initial lipase was fine but is elevated today so an abdominal ultrasound was ordered, CBC/BMP: 01/16/17 0835 01/16/17 0835 Imaging Percutaneous Cholangiogram 01/12/17 0000 Signed Impressions: Service Date/Time: Thursday, January 12, 2017 18:13 - CONCLUSION: Uncomplicated percutaneous cholecystostomy as above. Yo Mcbride MD GI Procedure 01/12/17 0000 Signed Impressions: Service Date/Time: Thursday, January 12, 2017 15:24 - CONCLUSION: ERCP as above. Gamal Solorzano MD Abdomen Ultrasound 01/11/17 0000 Signed Impressions: Service Date/Time: Wednesday, January 11, 2017 13:45 - CONCLUSION: 1. Enlarged liver with mild ascites. 2. Gallbladder wall thickening with pericholecystic fluid, differential including acute cholecystitis and secondary changes related to liver disease. Negative sonographic Jackson's sign would favor the latter. 3. Sludge and stone in the gallbladder and common bile duct distention of uncertain etiology. Jose Browne MD Aorta CTA 01/10/17 1304 Signed Impressions: Service Date/Time: Tuesday, January 10, 2017 14:49 - CONCLUSION: 1. Atherosclerotic changes been no aneurysm or dissection. 2. Diverticulosis. 3. Slight inflammatory changes along the pancreatic head could be pancreatitis in the right clinical setting. 4. Bilateral punctate nonobstructing renal calculi. 5. Emphysema and minimal patchy density right upper lobe could be infectious or inflammatory. Gamal Solorzano MD Chest X-Ray 01/10/17 1203 Signed Impressions: Service Date/Time: Tuesday, January 10, 2017 12:38 - CONCLUSION: No acute cardiopulmonary disease identified. Stuart Augustin MD PE at Discharge GENERAL: WN, WD male laying in bed in NAD. SKIN: Warm and dry without rash. No jaundice. HEENT: Pupils equal and round. No conjunctival injection. MMM. HEART: Distant heart sounds. RRR no m/r/g. LUNGS: Equal bilaterally with no accessory muscle use. ABDOMEN: +BS. Drain in RUQ with <100 cc bilious output. Abdomen soft, NT, ND. No guarding or rebound. EXTREMITIES: No LE edema. L pedal pulses barely palpable, right pedal pulses 2+ . No discoloration of toes or ulcers noted bilaterally. NEURO: Awake and alert. Hospital Course 71 year old male with history of DM, COPD, HTN, mild dementia, TIA with CEA, spinal stenosis, and alcoholism (quit for nine years) was admitted on 01/10/17 for chest pain with mildly elevated troponins, RUQ pain with elevated LFTs, and three days of black tarry stools with hemoglobin 7.3. Patient was transfused 3 units PRBCs. Cardiology and GI were originally consulted; heparin contraindicated due to bleed. Patient underwent EGD on 01/12 showing gastritis as well as ERCP with sphincterotomy. He was found to have two blood cultures growing E. coli and given significant antibiotic allergies ID was consulted. Patient was on IV Aztreonam and Tigecycline then transitioned to PO Levaquin with plans for a 14-day course. Bacteremia suspected to be secondary to acute cholecystitis given patient's concomitant RUQ, low-grade fever, and elevated LFTs and bilirubin. General surgery also consulted. Since he is high-risk, it was decided to manage the cholecystitis with cholecystomy tube which was placed on 01/12. His labs normalized and his second set of blood cultures were without growth. He was discharged to [facility] in stable condition on 01/16. Pt Condition on Discharge: Stable Discharge Disposition: Rehab Inpatient Discharge Instructions DIET: Follow Instructions for: Heart Healthy Diet Activities you can perform: Regular-No Restrictions Follow up Referrals: Physician - 1 Week with Chandana Akins MD [facility] Surgical - 1 Week with Richard Davis MD New Medications: Levofloxacin (Levaquin) 750 Mg Tab 750 MG PO DAILY Infection #14 Ref 0 TAB Carvedilol (Coreg) 3.125 Mg Tab 3.125 MG PO Q12HR #60 Ref 1 TAB Citalopram (Celexa) 20 Mg Tab 20 MG PO DAILY #30 Ref 1 TAB Hydralazine (Hydralazine) 50 Mg Tab 50 MG PO TID #90 Ref 1 TAB Hydrocodone-Acetaminophen (Hydrocodone-Acetaminophen) 5-325 mg Tab 1 TAB PO Q4H PRN PAIN 5-10 #45 Ref 0 TAB Pantoprazole (Pantoprazole) 40 Mg Tab 40 MG PO DAILY #30 Ref 1 TAB Continued Medications: Cyclobenzaprine (Flexeril) 10 Mg Tab 10 MG PO HS Muscle Spasm #90 Ref 0 TAB Diltiazem CD 24 HR (Diltiazem CD 24 HR) 240 Mg Caper 480 MG PO HS #30 Ref 0 CAP Donepezil (Donepezil) 10 Mg Tab 10 MG PO HS Dementia #30 Ref 0 TAB Fluticasone-Salmeterol Inh (Advair Diskus Inh) 250-50 Mcg/Blist Aer 1 PUFF INH BID Rinse mouth after use. #1 Ref 0 INHALER Lisinopril (Lisinopril) 40 Mg Tab 40 MG PO HS Blood Pressure Management #30 Ref 0 TAB Travoprost Opth Drops (Travatan Z Opth Drops) 0.004 % Soln 1 DROP EACH EYE HS Glaucoma #1 Ref 0 BOTTLE Zolpidem (Ambien) 10 Mg Tab 10 MG PO HS PRN INSOMNIA #30 Ref 0 TAB Discontinued Medications: Aspirin (Aspirin) 325 Mg Tab 325 MG PO DAILY #30 Ref 0 TAB Atorvastatin (Atorvastatin) 40 Mg Tab 40 MG PO HS Cholesterol Management #30 Ref 0 TAB Citalopram (Citalopram) 40 Mg Tab 60 MG PO DAILY Control Depression #30 Ref 0 TAB Clopidogrel (Plavix) 75 Mg Tab 75 MG PO DAILY Blood Clot Prevention #30 Ref 0 TAB Tramadol (Tramadol) 50 Mg Tab 50 MG PO Q4H PRN PAIN SCALE 1 TO 5 Ref 0 TAB Nani Torre MD Jan 19, 2017 10:28
[2017-01-19] MEDS ORDERED: LISI40TA PO (11:02)
[2017-01-23] MEDS ORDERED: COMMODE 3-IN-11 MIS (13:10)
[2017-01-23] MEDS ORDERED: Walker with seat (13:10)
[2017-01-23] MEDS ORDERED: WHEEMIS3 (13:10)
[2017-01-29] MEDS ORDERED: CYCL1TAB29 PO (11:24)
[2017-01-29] MEDS ORDERED: LACT PO (11:24)
[2017-01-29] MEDS ORDERED: NEUR400C PO (11:24)
[2017-01-29] MEDS ORDERED: CLOT1CRE6 TOPICAL (11:24)
[2017-01-29] MEDS ORDERED: hydrALAZINE PO (11:24)
[2017-01-29] MEDS ORDERED: CLON.1 PO (11:24)
[2017-01-29] MEDS ORDERED: ONDA4TAB7 PO (11:24)
[2017-01-29] MEDS ORDERED: IPRASOL NEB (11:24)
[2017-02-16] MEDS ORDERED: hydrALAZINE PO (08:45)
[2017-02-16] MEDS ORDERED: ZYVO600T PO (08:45)
[2017-02-16] MEDS ORDERED: TRAV0.00 EACH EYE (08:45)
[2017-02-16] MEDS ORDERED: CARV6.252 PO (08:45)
[2017-02-16] MEDS ORDERED: PANT40TA3 PO (08:45)
[2017-02-16] MEDS ORDERED: CLOT1CRE6 TOPICAL (08:45)
[2017-02-16] MEDS ORDERED: NEUR400C PO (08:45)
[2017-02-16] MEDS ORDERED: LISI40TA PO (08:45)
[2017-02-16] MEDS ORDERED: DONE10TA7 PO (08:45)
[2017-02-16] MEDS ORDERED: FERR325T PO (08:45)
[2017-02-16] MEDS ORDERED: FURO20TA PO (08:45)
[2017-02-16] MEDS ORDERED: ADVA250A INH (08:45)
[2017-02-16] MEDS ORDERED: LEVA750T PO (08:45)
[2017-02-16] MEDS ORDERED: HYDR-3583 PO (08:45)
[2017-02-16] MEDS ORDERED: ASPI81CH3 CHEW (08:45)
[2017-02-16] MEDS ORDERED: DILT-64 PO (08:45)
[2017-02-16] MEDS ORDERED: AMBI5TAB PO (08:45)
[2017-02-16] MEDS ORDERED: LACT PO (08:45)
[2017-02-16] MEDS ORDERED: LORA-474 PO (08:46)
[2017-02-16] MEDS ORDERED: THERTAB15 PO (08:46)
[2017-02-16] MEDS ORDERED: Spironolactone PO (08:46)
[2017-02-27] MEDS ORDERED: ATOR40TA16 PO (10:26)
[2017-02-27] MEDS ORDERED: CITA40TA4 PO ×2 (10:26→10:41)
[2017-02-27] MEDS ORDERED: Spironolactone PO (10:41)
[2017-02-27] MEDS ORDERED: CARV6.252 PO (10:41)
[2017-02-27] MEDS ORDERED: SPIR25TA PO (10:42)
[2017-03-06] MEDS ORDERED: CITA40TA4 PO (12:30)
[2017-03-26] MEDS ORDERED: CYCL1TAB29 PO (13:15)
[2017-03-30] MEDS ORDERED: SPIR25TA PO (10:30)
[2017-03-30] MEDS ORDERED: CARV6.252 PO (10:30)
[2017-03-30] MEDS ORDERED: CYCL1TAB29 PO (10:30)
[2017-03-30] MEDS ORDERED: GABA400C5 PO (10:30)
[2017-03-30] MEDS ORDERED: ADVA250A INH (10:30)
[2017-03-30] MEDS ORDERED: DONE10TA7 PO (10:30)
[2017-03-30] MEDS ORDERED: TRAV0.00 EACH EYE (10:30)
[2017-03-30] MEDS ORDERED: IPRAAER INH (10:52)
[2017-03-30] MEDS ORDERED: ADVA500A INH ×2 (10:53→10:54)
[2017-03-30] MEDS ORDERED: AZEL1SPR2 EACH NARE (10:55)
[2017-03-30] MEDS ORDERED: FLUT50SP EACH NARE (10:55)
[2017-03-30] MEDS ORDERED: PNEU25IN IM (11:01)
[2017-04-10] MEDS ORDERED: PRED50 PO (10:21)
[2017-04-10] MEDS ORDERED: LEVO750T3 PO (10:21)
[2017-04-10] MEDS ORDERED: ALBU0.08 NEB (10:21)
== END 2017-01-16 14:25 | DRG 871 ==
LOC: NEPA 11:51 → NEDA 16:43 → N04A 19:45 → HIME 01-11 12:25 → HCIS 01-15 05:22
PROVIDERS: ADMIT Family Medicine; ATTEND Family Medicine
PROC: 30233N1 Transfusion of Nonautologous Red Blood Cells into Peripheral Vein, Percutaneous Approach (ICD-10-PCS; 2017-01-10)
PROC: 0F798ZZ Dilation of Common Bile Duct, Via Natural or Artificial Opening Endoscopic (ICD-10-PCS; 2017-01-12)
PROC: 0DB68ZX Excision of Stomach, Via Natural or Artificial Opening Endoscopic, Diagnostic (ICD-10-PCS; 2017-01-12 13:55)
PROC: 0F9430Z Drainage of Gallbladder with Drainage Device, Percutaneous Approach (ICD-10-PCS; principal; 2017-01-13)
DX: A41.51 Sepsis due to Escherichia coli [E. coli] (principal); K85.10 Biliary acute pancreatitis without necrosis or infection; E87.2 Acidosis; I48.92 Unspecified atrial flutter; K80.00 Calculus of gallbladder with acute cholecystitis without obstruction; F03.90 Unspecified dementia, unspecified severity, without behavioral disturbance, psychotic disturbance, mood disturbance, and anxiety; R18.8 Other ascites; K92.2 Gastrointestinal hemorrhage, unspecified; J44.9 Chronic obstructive pulmonary disease, unspecified; E78.5 Hyperlipidemia, unspecified; F32.9 Major depressive disorder, single episode, unspecified; Z86.73 Personal history of transient ischemic attack (TIA), and cerebral infarction without residual deficits; I25.10 Atherosclerotic heart disease of native coronary artery without angina pectoris; F10.21 Alcohol dependence, in remission; R74.0 Nonspecific elevation of levels of transaminase and lactic acid dehydrogenase [LDH]; D64.9 Anemia, unspecified; E11.9 Type 2 diabetes mellitus without complications; I10 Essential (primary) hypertension; K31.4 Gastric diverticulum; K29.70 Gastritis, unspecified, without bleeding; K57.10 Diverticulosis of small intestine without perforation or abscess without bleeding; I73.9 Peripheral vascular disease, unspecified; G57.93 Unspecified mononeuropathy of bilateral lower limbs; I45.10 Unspecified right bundle-branch block; G47.00 Insomnia, unspecified; R65.20 Severe sepsis without septic shock; E78.00 Pure hypercholesterolemia, unspecified; G62.9 Polyneuropathy, unspecified; M62.838 Other muscle spasm; M48.00 Spinal stenosis, site unspecified; H40.9 Unspecified glaucoma; H91.93 Unspecified hearing loss, bilateral; Z82.49 Family history of ischemic heart disease and other diseases of the circulatory system; Z85.828 Personal history of other malignant neoplasm of skin; Z87.891 Personal history of nicotine dependence; Z88.0 Allergy status to penicillin; Z88.1 Allergy status to other antibiotic agents; Z88.2 Allergy status to sulfonamides
CPT/HCPCS: 36430; 47490; 71010; 71275; 74174; 74330; 76700; 80048; 80053; 80061; 80074; 80076; 81001; 82550; 82552; 82948; 83605; 83690; 83735; 84100; 84484; 85014; 85018; 85025; 85610; 85730; 86850; 86900; 86901; 86920; 87040; 87070; 87077; 87186; 87205; 87641; 88305; 88312; 93005; 93306; 94150; 94640; 94664; 96374; 96375; 99152; 99153; C1729; C1769; C9113; J0360; J1170; J1610; J1956; J2250; J2405; J3010; J3243; J3480; J7030; P9016; Q9967

== ENCOUNTER 2017-01-29 11:28 | Inpatient (IN) | payer MEDICARE, OTHER ==
[~2017-01-29] VITALS: Ht 180.3 cm; Wt 87.2 kg
[~2017-01-29 11:28] MED LIST changes: +ADVA250A INH; +AMBI10TA PO; -ASPI325T PO; +ASPI81CH3 CHEW; -ATOR40TA PO; -CARD120T4 PO; -CARD240C6 PO; +CARV3.125 PO; +CELE20TA PO; -CITA-48 PO; +CLON.1 PO; -CLOP75 PO; +CLOT1CRE6 TOPICAL; +COMMODE 3-IN-11 MIS; +CYCL1TAB29 PO; -DICL75 PO; +DILT-64 PO; +DONE10TA7 PO; -DONE5TAB14 PO; +HYDR-3516 PO; +HYDR50TA15 PO; +IPRASOL NEB; +LACT PO; +LEVA750T PO; +NEUR400C PO; +ONDA4TAB7 PO; +PANT40TA3 PO; -REDCAP2 OR; -TRAM50TA PO; +WHEEMIS3; +Walker with seat; -ZOLP10TA3 PO; +hydrALAZINE PO
[2017-01-29] MEDS ORDERED: CARV6.252 PO (12:14)
[2017-01-29] MEDS ORDERED: CELE40TA PO (12:14)
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
[2017-01-29] MEDS ORDERED: NALOXONE HCL 0.4 MG/ML AMP IV PRN (13:45)
[2017-01-29] MEDS ORDERED: SODIUM CHLORIDE 0.9% FLUSH 5 ML FLUSH FLUSH PRN (13:45)
[2017-01-29] MEDS ORDERED: SODIUM CHLOR 0.9% 1000 ML INJ 1,000 ML IV ONE ×3 (13:45→18:00)
[2017-01-29] MEDS ORDERED: ONDANSETRON HCL 4 MG/2 ML VIAL IVP PRN (13:45)
--- NOTE | 2017-01-29 14:18 | RADRPT ---
EXAM DATE/TIME: 01/29/2017 13:36 [facility] COMPARISON: CT ABDOMEN & PELVIS W/O CONTRAST, January 29, 2017, 10:23. CHEST SINGLE AP, January 28, 2017, 15:11. INDICATIONS : Short of breath. MEDICAL HISTORY : None. SURGICAL HISTORY : None. ENCOUNTER: Initial ACUITY: 2 days PAIN SCORE: Non-responsive. LOCATION: Bilateral chest FINDINGS: 2 portable frontal views of the chest reveal a small left effusion. Lungs are clear otherwise. Heart is at the upper limits of normal in terms of size. Scoliotic curvature of the thoracic spine. CONCLUSION: Small left effusion. Hector Soliman Jr., MD on January 29, 2017 at 14:15 Board Certified Radiologist. This report was verified electronically.
[2017-01-29] MEDS ORDERED: CHLORHEXIDINE GLUCONATE 2 % 1 PACK (2 CLOTHS)(extra cloths) TOP PRN (14:45)
[2017-01-29] MEDS ORDERED: AZTREONAM INJ 2,000 MG in SODIUM CHLORIDE 0.9% INJ 100 ML IV SCH (15:00)
[2017-01-29] MEDS: LINEZOLID 600 MG PREMIX 300 ML IV SCH (15:35)
[2017-01-29] MEDS: SODIUM CHLOR 0.9% 1000 ML INJ 1,000 ML IV SCH ×2 (15:35→23:32)
[2017-01-29 16:00] VITALS: BP 117/56; PULSE 50; RESP 24; TEMP 99; O2SAT 98
[2017-01-29 16:18] VITALS: O2SAT 96
[2017-01-29 16:33] LABS: INDIRECT BILIRUBIN 0.5 MG/DL (0.0-0.8); TOTAL BILIRUBIN ADULT 1.1 MG/DL (0.2-1.0)
[2017-01-29 18:00] VITALS: PULSE 63
[2017-01-29 18:48] LABS: BACTERIA, URINE RARE /hpf; BLOOD, URINE NEG (NEG); GLUCOSE,URINE NEG (NEG); HYALINE CAST, URINE 5 /lpf (RARE); KETONE, URINE NEG (NEG); MUCUS URINE FEW /lpf (OCC); NITRITE,URINE NEG (NEG); SQUAMOUS EPITHELIAL CELL URINE 2 /hpf (0-5)
[2017-01-29 18:51] LABS: COMMENT (UR) CATH-CULTURE IND; CULTURE IF INDICATED CATH CULTURE IND; URINE COLOR ORANGE (YELLW/STRAW)
--- NOTE | 2017-01-29 19:00 | EC ---
Study Study Date:01/29/2017 STUDY CONCLUSIONS SUMMARY - Procedure narrative: Transthoracic echocardiography. Image quality was suboptimal. The study was technically limited due to poor acoustic window availability. Scanning was performed from the parasternal, apical, and subcostal acoustic windows. - Left ventricle: The cavity size was normal. Wall thickness was increased in a pattern of mild LVH. Systolic function was normal. The estimated ejection fraction was in the range of 55% to 60%. Wall motion was normal; there were no regional wall motion abnormalities. - Aortic valve: Mild regurgitation. - Aorta: Aortic root dimension: 46mm (ED, M-mode). - Aortic root: The aortic root was dilated. - Tricuspid valve: Mild regurgitation. If LV function is below 40, please consider prescribing an ACEI or ARB or document rationale for non-use. PROCEDURE DATA STUDY STATUS: Elective. Procedure: Transthoracic echocardiography. Image quality was suboptimal. The study was technically limited due to poor acoustic window availability. Scanning was performed from the parasternal, apical, and subcostal acoustic windows. Study completion: The patient tolerated the procedure well. Transthoracic echocardiography. M-mode, complete 2D, complete spectral Doppler, and color Doppler. Height: Height: 71in. Weight: Weight: 174.6lb. Body mass index: BMI: 24.4kg/m^2. Body surface area: BSA: 1.99m^2. Patient status: Inpatient. CARDIAC ANATOMY LEFT VENTRICLE: The cavity size was normal. Wall thickness was increased in a pattern of mild LVH. Systolic function was normal. The estimated ejection fraction was in the range of 55% to 60%. Wall motion was normal; there were no regional wall motion abnormalities. AORTIC VALVE: Trileaflet; mildly thickened leaflets. Doppler: Transvalvular velocity was within the normal range. There was no stenosis. Mild regurgitation. AORTA: Aortic root: The aortic root was dilated. MITRAL VALVE: Structurally normal valve. Doppler: Transvalvular velocity was within the normal range. There was no evidence for stenosis. Trace regurgitation. Valve area by pressure half-time: 4.15cm^2. Indexed valve area by pressure half-time: 2.09cm^2/m^2. Peak gradient: 3mm Hg (D). LEFT ATRIUM: The atrium was normal in size. RIGHT VENTRICLE: The cavity size was normal. Wall thickness was normal. PULMONIC VALVE: Doppler: Transvalvular velocity was within the normal range. There was no evidence for stenosis. No regurgitation. TRICUSPID VALVE: Structurally normal valve. Doppler: Transvalvular velocity was within the normal range. Mild regurgitation. Peak gradient: 28mm Hg (D). PULMONARY ARTERY: The main pulmonary artery was normal-sized. Systolic pressure was within the normal range. RIGHT ATRIUM: The atrium was normal in size. PERICARDIUM: There was no pericardial effusion. SYSTEMIC VEINS: Inferior vena cava: The vessel was normal in size. Patient weight: 174.6lb _Ejection fraction:_ 65-75% _Fractional shortening:_ 32% up to 5Kg 5-11.5Kg 11.6-22.9Kg 23-45Kg 45-57Kg Aortic Root 7-13 <17 13-22 17-27 17-27 LA diam 6-13 <23 24-38 33-47 37-40 RVID 10-17 7-15 7-15 7-18 8-17 LVIDd 12-22 <32 24-38 33-47 37-40 LVPW 2-4 3-6 5-7 6-8 7-8 IVS 2-4 3-6 5-7 6-8 7-8 BASIC MEASUREMENTS ADULT NORMAL Left ventricle LV internal dimension, ED, chordal 49.5 mm 43-52 level, PLAX LV internal dimension, ES, chordal 30.5 mm 23-38 level, PLAX Fractional shortening, chordal level, 38 % >29 PLAX LV posterior wall thickness, ED 11.9 mm IVS/LVPW ratio, ED 1.02 <1.3 Ventricular septum Septal thickness, ED 12.1 mm Aortic valve Leaflet separation *28 mm 15-26 Left atrium Anterior-posterior dimension 36 mm Anterior-posterior dimension index 1.81 cm/m^2 <2.2 BASIC MEASUREMENTS ADULT NORMAL Aortic valve Leaflet separation *28 mm 15-26 Aorta Root diameter, ED *46 mm 20-37 DOPPLER MEASUREMENTS ADULT NORMAL Aortic valve Peak velocity, S 147 cm/s Mitral valve Peak E-wave velocity 92.3 cm/s Peak A-wave velocity 72.6 cm/s Pressure half-time 53 ms Peak gradient, D 3 mm Hg Peak E/A ratio 1.3 Valve area, pressure half-time 4.15 cm^2 Valve area index, pressure half-time 2.09 cm^2/m^2 Tricuspid valve Peak gradient, D 28 mm Hg Maximal inflow velocity 266 cm/s Systemic veins Estimated CVP 10 mm Hg Pulmonic valve Peak velocity, S 132 cm/s LEGEND: Mean values are shown as u=mean value. Asterisk (*) murcia values outside specified normal range. Prepared and signed by Jose Luis Downing [id number]
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
[2017-01-29 19:54] VITALS: O2SAT 98
[2017-01-29 19:55] LABS: BICARBONATE 26.8 MEQ/L (21.0-32.0); POTASSIUM 3.9 MEQ/L (3.5-5.1)
[2017-01-29 20:00] VITALS: BP 120/59; PULSE 64; RESP 18; TEMP 100.1; O2SAT 96
[2017-01-29] MEDS: SODIUM CHLORIDE 0.9% FLUSH 5 ML FLUSH FLUSH SCH (21:00)
[2017-01-29 22:00] VITALS: PULSE 65
[2017-01-29] MEDS: AZTREONAM INJ 2,000 MG in SODIUM CHLORIDE 0.9% INJ 100 ML IV SCH (23:32)
[2017-01-30] VITALS (14 sets, daily range): BP systolic 134–186; BP diastolic 63–77; PULSE 68–78; RESP 16–20; TEMP 99–100; O2SAT 94–97
[2017-01-30] MEDS: LINEZOLID 600 MG PREMIX 300 ML IV SCH ×2 (02:18→13:48)
[2017-01-30] MEDS: CHLORHEXIDINE GLUCONATE 2 % 1 PACK (2 CLOTHS)(taper/protocol) TOP SCH ×2 (04:00→21:34)
[2017-01-30 05:22] LABS: AUTOMATED NEUTROPHIL # 8.9 TH/MM3 (1.8-7.7); BASOPHIL % 0.3 % (0.0-2.0); HEMATOCRIT 24.3 % (39.0-51.0); HEMO FLAGS DIFF FINAL; LYMPH % 8.4 % (9.0-44.0); MEAN CELL VOLUME 78.3 FL (80.0-100.0); MEAN CORPUSCULAR HGB CONC 31.9 % (32.0-36.0); MONO % 12.9 % (0.0-8.0); NEUT % 78.4 % (16.0-70.0); PLATELET COUNT 386 TH/MM3 (150-450); RED BLOOD COUNT 3.11 MIL/MM3 (4.50-5.90); WHITE BLOOD COUNT 11.4 TH/MM3 (4.0-11.0)
[2017-01-30 05:45] LABS: ALKALINE PHOSPHATASE 129 U/L (45-117); ALT (GPT) 24 U/L (12-78); ANION GAP 10 MEQ/L (5-15); AST (GOT) 9 U/L (15-37); BICARBONATE 24.2 MEQ/L (21.0-32.0); BLOOD UREA NITROGEN 32 MG/DL (7-18); CHLORIDE 105 MEQ/L (98-107); GLOMERULAR FILTRATION RATE 48 ML/MIN (>89); POTASSIUM 3.5 MEQ/L (3.5-5.1); SODIUM (NA) 139 MEQ/L (136-145)
[2017-01-30] MEDS: AZTREONAM INJ 2,000 MG in SODIUM CHLORIDE 0.9% INJ 100 ML IV SCH ×3 (06:35→21:26)
[2017-01-30] MEDS ORDERED: SODIUM CHLOR 0.9% 1000 ML INJ 1,000 ML IV ONE (07:30)
--- NOTE | 2017-01-30 07:57 | HHI.FPPN ---
Subjective Remarks Patient seen this morning. No acute events overnight. He did have low grade temp of 100.1F overnight. Per nursing, UOP of 800 cc despite 3880 cc intake. Still confused but easily arousable. Some leakage around verde cath. This morning, Mr. Garcia c/o continued bilateral LE pain. Otherwise he states he feels "terrible" because "no one will give me my pills" (he cannot specify which pills). Denies SOB or CP. No abdominal pain or N/V. (Chandana Akins MD R3) Objective Vitals Vital Signs Date Time Temp Pulse Resp B/P Pulse Ox O2 Delivery O2 Flow Rate FiO2 01/30/17 06:00 75 01/30/17 04:00 73 01/30/17 04:00 99.1 73 18 157/72 94 01/30/17 02:00 68 01/30/17 00:00 70 01/30/17 00:00 99.0 70 20 153/67 01/29/17 22:00 65 01/29/17 20:00 100.1 64 18 120/59 96 01/29/17 20:00 64 01/29/17 19:54 98 Nasal Cannula 2.00 01/29/17 18:00 63 01/29/17 16:18 96 Nasal Cannula 2.00 01/29/17 16:00 99.0 50 24 117/56 98 01/29/17 16:00 50 I/O 01/29/17 01/29/17 01/29/17 01/30/17 01/30/17 01/30/17 07:00 15:00 23:00 07:00 15:00 23:00 Intake Total 3093 ml 787 ml Output Total 350 ml 800 ml Balance 2743 ml -13 ml Intake IV Total 3093 ml 787 ml Output Urine Total 350 ml 450 ml Drainage Total 350 ml # Bowel Movements 0 0 (Chandana Akins MD R3) Result Diagram: 01/30/1740601/30/17406 Objective Remarks GENERAL: Ill-appearing, though significantly improved compared to yesterday. Still with mild shaking in upper extremities. SKIN: No lesions or ecchymoses. Outlined area of erythema in RLE has significantly regressed compared to yesterday. Right foot with trace edema and scattered erythema, also significantly improved compared to yesterday. Vertical , medial left knee scar from previous I&D appreciated. EYES: Pupils equal round and reactive. Extraocular motions intact. No scleral icterus. No injection or drainage. CARDIOVASCULAR: Regular rate and rhythm without murmurs, gallops, or rubs. RESPIRATORY: Clear to auscultation. Breath sounds equal bilaterally. No wheezes , rales, or rhonchi. GASTROINTESTINAL: Abdomen soft, NT, ND. No hepato-splenomegaly, or palpable masses. No guarding. Cholecystotomy tube in place and draining 350 cc of brownish fluid. Wound site c/d/i. MUSCULOSKELETAL: Extremities without clubbing, cyanosis, or edema. No joint tenderness, effusion, or edema noted. Calf tenderness bilaterally. Difficult to assess Randell's sign 2/2 confusion. NEUROLOGICAL: Awake and alert. Cranial nerves II through XII intact. Motor and sensory grossly within normal limits. Five out of 5 muscle strength in all muscle groups. Still confused, but with much more coherent speech this AM. ( Chandana Akins MD R3) A/P Assessment and Plan 71 year old male with history of recent hospitalization for gastritis and E. coli bacteremia 2/2 acute cholecystitis presenting with AMS and sepsis. Now with improving mental status with broad spectrum IV antibiotics and IV fluids. Discharge Planning Dispo is back to SNF. Estimated timeframe of at least 3-5 days until he is ready for SNF. Will consult CM for discharge planning and have PT work with patient as mental status improves. Will discuss with Dr. Mosley. (Chandana Akins MD R3) Attending Attestation Patient examined and case discussed with resident physicians I have read the above note and agree with the assessment/plan as discussed with me I was involved in all medical decision making for this patient Oumar Mosley M.D. (Oumar Mosley MD) Problem List: (1) Sepsis Status: Acute Plan: Meets criteria with new fever, leukocytosis, and suspected source ( cellulitis) - admit to critical care floor. With improved mental status, will re-assess this afternoon to see if he can go to med-surg. - 3880 total IV intake with 800 cc UOP (~0.4 cc/kg/hr). Will give another 1L bolus this AM then start on MIVF. Weight up 1.2 kg from yesterday. - Verde catheter placed and monitor I's/O's. Some leakage around verde, likely 2 /2 penile implant. - monitor vitals q4 and telemetry - previously holding antihypertensives. SBP up to the 150s now. Has PRN medicines on board. Restart home meds if BP remains elevated this afternoon. NPO except for meds - ST consult for formal speech eval when more stable ID consulted and abx switched to Zyvox and Aztreonam (01/29-) - Blood cultures drawn and pending - Has penile and bladder implant. UA appears clear, but with small amount of bacteria. Urine culture pending. Lactic acid normal at 0.8 CT abdomen negative for acute process Chest Xray with small left effusion 2D echo shows normal EF without vegetation Left knee painful, but without erythema or obvious effusion. Doubt septic arthritis. Will check inflammatory markers this AM (sed rate, CRP). Will do needle aspiration with MRI if clinical worsening, or if joint erythema/effusion present. Has remote h/o of left knee abscess requiring I&D. PT and OT ordered. Dispo is back to SNF. (2) Altered mental status Status: Acute Plan: Improving. Suspect this is related to sepsis. (3) Cellulitis of leg, right Status: Acute Plan: Significantly improved compared to yesterday. ? 2/2 recent bacteremia. -antibiotics, as above. -bilateral doppler 01/27 negative. Doubt DVT, given high sensitivity of this exam. (4) Gastritis Status: Resolved Plan: Hemoglobin decreased to 7.8, compared to 9 yesterday. With all cell lines decreased compared to last CBC, this is likely dilutional. -no diarrhea or emesis. Check hemoccult with next BM. -start iron supplementation -cont protonix (5) Cholecystostomy care Status: Acute Plan: -wound site c/d/i -CT ab shows no acute process (6) Hypertension Status: Chronic Plan: -Holding current regimen. Restart BP meds this afternoon if no further hypotensive episodes. - coreg, cardizem, lisinopril, and hydralazine -PRN clonidine (7) Dementia Status: Chronic Plan: -cont aricept (8) Major depression Status: Acute Plan: -hold celexa, given increased risk of serotonin syndrome with zyvox (9) Dietary counseling and surveillance Status: Acute Plan: -diet: passed bedside swallow eval. NPO with meds until speech eval. -IVF: 1L IV bolus x1 this AM, then MIVF DVT ppx: contraindicated with recent GI bleed. SCDs. (Chandana Akins MD R3) Problem Qualifiers (1) Sepsis: Qualified Code: A41.9 - Sepsis, due to unspecified organism (2) Altered mental status: Qualified Code: R41.0 - Delirium (3) Hypertension: Qualified Code: I10 - Essential hypertension (4) Dementia: (5) Major depression: Qualified Code: F33.9 - Recurrent major depressive disorder, remission status unspecified Chandana Akins MD R3 Jan 30, 2017 07:57 Oumar Mosley MD Jan 30, 2017 16:31
[2017-01-30] MEDS ORDERED: RESP: ALBUTEROL 2.5 MG/IPRATROPIUM 0.5 MG NEB (PRN) NEB (08:45)
[2017-01-30] MEDS ORDERED: MORPHINE SULFATE 4 MG/ML INJ IV PUSH PRN (09:00)
[2017-01-30] MEDS ORDERED: BUDESONIDE-FORMOTEROL 160/4.5 MCG INHALER INH SCH (09:00)
[2017-01-30] MEDS: SODIUM CHLOR 0.9% 1000 ML INJ 1,000 ML IV SCH ×3 (09:38→21:27)
--- NOTE | 2017-01-30 10:43 | HHI.IDPN ---
Subjective Subjective Remarks Notes reviewed Patient seen in [facility] prior to transfer to [facility] D/W RN Low grade temps last 24 hours More awake, and alert x 3 C/O pain BLE No abdominal pain Bladder scan ok Verde in place GB tube draining well Xray L knee with effusion BC negative CXR ok UA ok (did not have verde in [facility]) Antibiotics Azactam Zyvox Past Medical History Reviewed Allergies: Coded Allergies: Bactrim (Verified Allergy, Severe, Anaphylaxis, 01/10/17) Ceftin (Verified Allergy, Severe, Anaphylaxis, 01/10/17) Flagyl (Verified Allergy, Severe, Fever, colitis, 01/10/17) Penicillin (Verified Allergy, Severe, Anaphylaxis, 01/10/17) Sulfa (Verified Allergy, Severe, Anaphylaxis, 01/10/17) MRI PRECAUTION (Verified Adverse Reaction, Severe, BLADDER STIMULATOR, ) BRAIN ONLY ON RECEIVE ONLY COIL, P.O. 01/11/17, DML *MDRO Multi-Drug Resistant Organism (Verified Adverse Reaction, Unknown, MRSA, 01/30/17) MRSA PCR (nares) POSITIVE - 01/11/17 Uncoded Allergies: mycins (Allergy, Severe, Fever, colitis, 12/15/13) surgical tape (Allergy, Severe, 12/15/13) Objective . Vital Signs Date Time Temp Pulse Resp B/P Pulse Ox O2 Delivery O2 Flow Rate FiO2 01/30/17 09:00 94 21 01/30/17 06:00 75 01/30/17 04:00 73 01/30/17 04:00 99.1 73 18 157/72 94 01/30/17 02:00 68 01/30/17 00:00 70 01/30/17 00:00 99.0 70 20 153/67 01/29/17 22:00 65 01/29/17 20:00 100.1 64 18 120/59 96 01/29/17 20:00 64 01/29/17 19:54 98 Nasal Cannula 2.00 01/29/17 18:00 63 01/29/17 16:18 96 Nasal Cannula 2.00 01/29/17 16:00 99.0 50 24 117/56 98 01/29/17 16:00 50 01/29/17 01/29/17 01/30/17 15:00 23:00 07:00 Intake Total 3093 ml 787 ml Output Total 350 ml 800 ml Balance 2743 ml -13 ml Intake IV Total 3093 ml 787 ml Output Urine Total 350 ml 450 ml Drainage Total 350 ml # Bowel Movements 0 0 . Laboratory Tests Test 01/30/17 04:07 White Blood Count 11.4 TH/MM3 Red Blood Count 3.11 MIL/MM3 Hemoglobin 7.8 GM/DL Hematocrit 24.3 % Mean Corpuscular Volume 78.3 FL Mean Corpuscular Hemoglobin 25.0 PG Mean Corpuscular Hemoglobin 31.9 % Concent Red Cell Distribution Width 19.0 % Platelet Count 386 TH/MM3 Mean Platelet Volume 8.2 FL Neutrophils (%) (Auto) 78.4 % Lymphocytes (%) (Auto) 8.4 % Monocytes (%) (Auto) 12.9 % Eosinophils (%) (Auto) 0.0 % Basophils (%) (Auto) 0.3 % Neutrophils # (Auto) 8.9 TH/MM3 Lymphocytes # (Auto) 1.0 TH/MM3 Monocytes # (Auto) 1.5 TH/MM3 Eosinophils # (Auto) 0.0 TH/MM3 Basophils # (Auto) 0.0 TH/MM3 CBC Comment DIFF FINAL Differential Comment Erythrocyte Sedimentation Rate GREATER THAN 140 mm/hr Laboratory Tests Test 01/29/17 01/29/17 01/30/17 15:28 19:05 04:07 Total Bilirubin 1.1 MG/DL 1.0 MG/DL Direct Bilirubin 0.6 MG/DL Indirect Bilirubin 0.5 MG/DL Aspartate Amino Transf 12 U/L 9 U/L (AST/SGOT) Alanine Aminotransferase 28 U/L 24 U/L (ALT/SGPT) Alkaline Phosphatase 133 U/L 129 U/L Ammonia 12 MCMOL/L Total Protein 6.3 GM/DL 6.2 GM/DL Albumin 2.0 GM/DL 1.9 GM/DL Vitamin B12 Level 414 PG/ML Sodium Level 139 MEQ/L 139 MEQ/L Potassium Level 3.9 MEQ/L 3.5 MEQ/L Chloride Level 102 MEQ/L 105 MEQ/L Carbon Dioxide Level 26.8 MEQ/L 24.2 MEQ/L Anion Gap 10 MEQ/L 10 MEQ/L Blood Urea Nitrogen 35 MG/DL 32 MG/DL Creatinine 1.93 MG/DL 1.44 MG/DL Estimat Glomerular Filtration 34 ML/MIN 48 ML/MIN Rate Random Glucose 92 MG/DL 123 MG/DL Calcium Level 8.8 MG/DL 8.9 MG/DL Microbiology Date/Time Procedure Status Source Growth 01/29/17 18:00 Urine Culture Received Urine Catheterized Urine Pending Imaging Last Impressions Chest X-Ray 01/29/17 1332 Signed Impressions: Service Date/Time: January 13:36 - CONCLUSION: Small left effusion. Hector Soliman Jr., MD Physical Exam GENERAL: Awake and alert, interactive, not in resp distress SKIN: Warm and dry, no generalized rash, no ecchymoses or embolic lesions. HEAD: Atraumatic. Normocephalic. No temporal or scalp tenderness. EYES: [place] conjunctivae, no petechia or hemorrhage. Pupils equal round and reactive. Extraocular motions intact. No scleral icterus. No injection or drainage. ENT: Nose without bleeding, or purulent drainage. Moist oral mucosa. Airway patent. NECK: Trachea midline. No JVD or lymphadenopathy. Supple, nontender, no meningeal signs. CARDIOVASCULAR: Regular rate and rhythm without murmurs, gallops, or rubs. RESPIRATORY: Clear to auscultation. Breath sounds equal bilaterally. No wheezes , rales, or rhonchi. Decreased BS at bases. GASTROINTESTINAL: Abdomen soft, nondistended. Mild tenderness in RUQ, GB tube in place, has dark green fluid. Bowel sounds present and normoactive. No organomegaly. No guarding. No rebound MUSCULOSKELETAL: Extremities without clubbing, cyanosis. No calf tenderness. Negative Homans sign bilaterally. RLE: Has patches of erythema on anterior leg , and ankle, with swelling mild of his L ankle. LLE: has knee effusion, and tender to touch,, but no redness seen. Has significant pain when moved or touched on his L knee NEUROLOGICAL: Non-focal LINE: PIV with no evidence of infection Assessment & Plan Remarks IMPRESSION New sepsis, with fever and chills, and encephalopathy - source? RLE cellulitis, ?L knee - swollen and tender, though not red - LFTs better, tube draining well, though still with RUQ tenderness, CT negative - no line - UA ok - diarrhea, C diff negative Episode of Escherichia coli sepsis due to acute cholecystitis - Better has a tube cholecystostomy in place, LFTs are better Multiple antibiotic allergies, has tolerated quinolones, Azactam, Tygacil RECOMMENDATION Follow C/S Monitor temps Monitor progress Ortho evaluation of his L knee Trial of colchicine for inflammatory arthritis Continue Azactam and Zyvox D/W RN D/W Vanessa Srinivasan MD Jan 30, 2017 10:43 Vanessa Srinivasan MD Jan 30, 2017 10:43
[2017-01-30] MEDS: cloNIDine HCL 0.1 MG TAB PO PRN ×2 (11:00→13:10)
[2017-01-30] MEDS: ACETAMINOPHEN/HYDROcodone 325 MG/5 MG TAB PO PRN ×2 (11:00→21:26)
[2017-01-30] MEDS: LACTOBACILLUS ACIDOPHILUS TAB PO SCH ×2 (11:00→21:25)
[2017-01-30] MEDS: ASPIRIN 81 MG CHEW TAB CHEW SCH (11:01)
[2017-01-30] MEDS: SODIUM CHLORIDE 0.9% FLUSH 5 ML FLUSH FLUSH SCH ×2 (11:01→21:27)
[2017-01-30] MEDS: FERROUS SULFATE 325 MG (65 MG ELEMENTAL IRON) TAB PO SCH ×2 (11:01→21:26)
[2017-01-30] MEDS: PANTOPRAZOLE SOD 40 MG DELAYED RELEASE TAB PO SCH (11:01)
[2017-01-30] MEDS: GABAPENTIN 400 MG CAP PO SCH ×2 (13:10→21:26)
[2017-01-30] MEDS: CYCLOBENZAPRINE HCL 10 MG TAB PO PRN ×2 (13:10→21:26)
[2017-01-30] MEDS: COLCHICINE 0.6 MG TAB PO SCH ×2 (13:48→21:25)
--- NOTE | 2017-01-30 14:16 | MB ---
cc: ARELI MONTE DATE OF CONSULTATION: 01/30/2017. REASON FOR CONSULTATION: Left knee possible septic arthritis. HISTORY OF PRESENT ILLNESS: The patient is a 71-year-old man who had been admitted from [facility] with a diagnosis of sepsis and altered mental status. The patient was noted to have a left knee effusion and was consulted by the infectious disease physician. The patient was able to provide some history. The is at the bedside; she can provide history and I also obtained some history from review of the chart. The patient says that he had been "overworking the knee" which caused it to swell for the last day or so. He said he has not had any previous effusions in the knee. He does not know of any significant arthritis in the knee but does have arthritis in other body areas. The patient has apparently a history of E coli sepsis. The patient was considered to be a very high risk for surgical management due to previous issues with anesthesia. REVIEW OF SYSTEMS: A twelve-point review of systems is negative except as noted in the history of present illness. He does have a history of the gastritis recently, blood cultures with E coli and previous cholecystitis. FAMILY HISTORY: Noncontributory. PAST MEDICAL HISTORY: Positive for: 1. Diabetes. 2. Glaucoma. 3. Hypertension. 4. COPD. 5. Dementia. 6. Vertigo. 7. Hearing loss. 8. TIA. 9. Chronic lumbar pain. 10. Skin cancer. 11. Shingles. ALLERGIES: SEE THE CHART, BUT HE HAS MULTIPLE ALLERGIES INCLUDIN. BACTRIM. 2. CEFTIN. 3. FLAGYL. 4. PENICILLIN. 5. SULFA. PAST SURGICAL HISTORY: Multiple surgeries, please see the chart for details. He has had multiple back surgeries as well. SOCIAL HISTORY: The patient lives with his in [facility]. Recent admission to [facility]. PHYSICAL EXAMINATION: VITAL SIGNS: The patient's temperature is 99.1, T-max recorded here for the last 24 hours is 99.0. Pulse is 75. Blood pressure is 157/72. GENERAL: The patient is awake, alert and oriented times three. He seems to have normal insight, although the patient's says that he will not remember the conversation. Affect - he is currently eating lunch very comfortably. He does appear somewhat ill. SKIN: He has some areas on the skin that show a little bit of erythema on the right leg which is marked out with a pen. These are relatively minor. Not a lot of swelling in this area. HEAD, EYES, EARS, NOSE, THROAT: The patient's head is atraumatic. The oropharynx is moist. NECK: The neck is supple. HEART: Regular rate and rhythm. LUNGS: Clear to auscultation bilaterally. BACK: No costovertebral angle tenderness. EXTREMITIES: The left lower extremity shows a rather large effusion of the knee. No redness. No drainage. No wounds are noted about the left knee. He has limited range of motion in the knee due to pain. He has brisk capillary refill about the toes, although I do not palpate a dorsalis pedis pulse. He actually moves the well in the left lower extremity. LABORATORY STUDIES: White blood cell count of 11.4, hematocrit is 24.3, platelets of 386,000. Chemistries show a creatinine of 1.44. Urine was reviewed. MRSA screen was negative. IMAGING STUDIES: There are no images of the knee for me to review. IMPRESSION: 1. Recent history of E coli sepsis. 2. Left knee effusion, rule out septic joint. DECISION-MAKING: I am going to order a stat x-ray of the left knee. I am suspicious given the history for possible septic arthritis. I have contacted the physician, Dr. Soliman, from radiology and have requested a stat ultrasound-guided aspiration of the knee and for the fluid to be sent for stat cell count, crystal analysis, stat Gram stain, and routine culture. I did explain that if this fluid analysis does show signs of infection, that surgical management would be warranted. The patient in his were very hesitant about this but I did explain that if there is infection and we do treat this nonoperatively, there is significant risk for chronic infection such as osteomyelitis which could ultimately end up in an above-knee amputation. We did talk about the type of surgery that would be performed, which would be a relatively small incision for an arthrotomy. I would likely place a drain and closure of the skin. They understand this. Will talk further with the patient and his depending on the results of the aspiration. All questions have been answered. MD LATOSHA Ellison/BRIJESH /1:16 PM /1:59 PM
--- NOTE | 2017-01-30 14:51 | PD.RAD ---
Post Procedure Progress Note Pre Procedure Diagnosis: (1) Swelling of joint, knee, left Post Procedure Diagnosis: (1) Swelling of joint, knee, left Procedure Date: Jan 30, 2017 Supervising Radiologist: Hector Soliman JR Proceduralist/Assist: Ryan Jimenez, RT(R), Gregoria Barber RT(R)() Anesthesia: Local Plan of Activity Patient to Unit: Nursing Unit Additional Comments: Left ultrasound guided knee aspiration. 40ml of turbid fluid obtained. Samples to lab as requested. See PACS Report for procedural detail/treatment Jr. Jourdan,Hector Lewis MD Jan 30, 2017 14:51
[2017-01-30 16:15] LABS: WBC, SYNOVIAL FLUID 29450 /MM3 (0-200)
[2017-01-30] MEDS ORDERED: [UNRECOGNIZED DRUG - OTHER] INH SCH (21:00)
[2017-01-30] MEDS: LATANOPROST 0.005% OPHT SOLN 2.5 ML BTL EACH EYE SCH (21:00)
[2017-01-30] MEDS ORDERED: ADVAIR INH SCH (21:00)
[2017-01-30] MEDS: DONEPEZIL HCL 5 MG TAB PO SCH (21:26)
[2017-01-30] MEDS: CARVEDILOL 6.25 MG TAB PO SCH (21:27)
[2017-01-30] MEDS: CLOTRIMAZOLE 1% CREAM 15 GM TOPICAL SCH (21:33)
[2017-01-31] VITALS (15 sets, daily range): BP systolic 133–205; BP diastolic 63–93; PULSE 56–73; RESP 14–18; TEMP 98.2–99; O2SAT 93–99
[2017-01-31] MEDS: cloNIDine HCL 0.1 MG TAB PO PRN ×2 (01:07→16:59)
[2017-01-31] MEDS: LINEZOLID 600 MG PREMIX 300 ML IV SCH ×2 (01:07→14:34)
[2017-01-31] MEDS: GABAPENTIN 400 MG CAP PO SCH ×3 (04:19→22:03)
[2017-01-31] MEDS: CLOTRIMAZOLE 1% CREAM 15 GM TOPICAL SCH ×3 (04:19→22:03)
[2017-01-31] MEDS: ACETAMINOPHEN/HYDROcodone 325 MG/5 MG TAB PO PRN ×4 (04:19→22:03)
[2017-01-31] MEDS: AZTREONAM INJ 2,000 MG in SODIUM CHLORIDE 0.9% INJ 100 ML IV SCH ×3 (04:26→22:03)
[2017-01-31 05:15] LABS: AUTOMATED NEUTROPHIL # 7.9 TH/MM3 (1.8-7.7); BASOPHIL % 0.5 % (0.0-2.0); EOSINOPHIL % 0.5 % (0.0-4.0); HEMO FLAGS DIFF FINAL; LYMPH % 11.3 % (9.0-44.0); LYMPHOCYTE # 1.2 TH/MM3 (1.0-4.8); MEAN CELL VOLUME 79.2 FL (80.0-100.0); MEAN CORPUSCULAR HEMOGLOBIN 25.7 PG (27.0-34.0); MEAN CORPUSCULAR HGB CONC 32.5 % (32.0-36.0); MONO % 10.8 % (0.0-8.0); NEUT % 76.9 % (16.0-70.0); PLATELET COUNT 418 TH/MM3 (150-450); RED BLOOD COUNT 3.16 MIL/MM3 (4.50-5.90); RED CELL DISTRIBUTION WIDTH 19.2 % (11.6-17.2); WHITE BLOOD COUNT 10.3 TH/MM3 (4.0-11.0)
[2017-01-31] MEDS ORDERED: hydrALAZINE HCL 25 MG TAB PO ONE ×2 (05:15→17:45)
[2017-01-31] MEDS: SODIUM CHLOR 0.9% 1000 ML INJ 1,000 ML IV SCH (05:26)
[2017-01-31 05:44] LABS: ALKALINE PHOSPHATASE 143 U/L (45-117); ALT (GPT) 25 U/L (12-78); ANION GAP 8 MEQ/L (5-15); AST (GOT) 23 U/L (15-37); BICARBONATE 24.4 MEQ/L (21.0-32.0); BLOOD UREA NITROGEN 25 MG/DL (7-18); CHLORIDE 109 MEQ/L (98-107); GLOMERULAR FILTRATION RATE 75 ML/MIN (>89); POTASSIUM 3.7 MEQ/L (3.5-5.1); SODIUM (NA) 141 MEQ/L (136-145); TOTAL BILIRUBIN ADULT 0.7 MG/DL (0.2-1.0)
[2017-01-31] MEDS ORDERED: SUGAMMADEX SODIUM 200 MG/2 ML VIAL IV PUSH ONE ×2 (07:31)
[2017-01-31] MEDS ORDERED: ACETAMINOPHEN 1000 MG/100 ML VIAL IV ONE (07:39)
[2017-01-31] MEDS ORDERED: GENTAMICIN SULFATE 80 MG/2 ML VIAL XX ONE (08:29)
[2017-01-31] MEDS: DEXT 5%-NACL 0.45% 1000 ML INJ 1,000 ML IV SCH ×2 (09:00→18:04)
[2017-01-31] MEDS ORDERED: SODIUM CHLORIDE 0.9% FLUSH 5 ML FLUSH IVF PRN (09:00)
[2017-01-31] MEDS ORDERED: Post-op Orders (for Pharmacy) MISC XX ONE (09:00)
[2017-01-31] MEDS ORDERED: MISCELLANEOUS PHARMACY INFORMATION XX ONE (09:00)
[2017-01-31] MEDS ORDERED: diphenhydrAMINE HCL 25 MG CAP PO PRN (09:00)
[2017-01-31] MEDS ORDERED: MISCELLANEOUS NURSING INFORMATION XX PRN (09:00)
[2017-01-31] MEDS ORDERED: HYDROmorphone HCL PF 1 MG/ML VIAL IV PRN (09:00)
[2017-01-31] MEDS ORDERED: NALOXONE HCL 0.4 MG/ML AMP IV PRN (09:00)
[2017-01-31] MEDS ORDERED: ONDANSETRON HCL 4 MG/2 ML VIAL IVP PRN (09:00)
--- NOTE | 2017-01-31 09:00 | PD.OP ---
cc: Lit Evangelista MD Operative Report Date of Surgery: Jan 31, 2017 Preoperative Diagnosis: Left knee septic arthritis Postoperative Diagnosis: Same Procedure: Left knee arthrotomy with irrigation and debridement Anesthesia: Gen. Surgeon: Lit Evangelista Metal Template Maker(s): ANDREA Jameson The surgical procedure was assisted by my Advanced Registered Nurse Practitioner. My MARINE ELECTRONICS REPAIRER presence was necessary throughout this case for the manipulation and positioning of the surgical extremity. My MARINE ELECTRONICS REPAIRER was assisting me throughout the duration of this procedure. The skill set of an Advance Registered Nurse Practitioner was medically necessary to complete this procedure. During the surgical case, the ag equipment field service technician was working at the back table and the Advance Registered Nurse Practitioner was directly assisting me. Operation and Findings: Prior to surgery this patient had an aspiration of the knee which revealed 29, 450 white blood cells and 3300 red blood cells with no crystals. At this point the cultures had not grown anything definitive. Based on the significant number of white cells and the fact that the patient was on antibiotics already I feel there is a high suspicion for infection in the knee. I discussed the diagnosis and treatment options with the patient and his . They understand the risks of surgery such as bleeding continued infection, loss of range of motion of the knee, weakness, DVT, pneumonia, heart attack, stroke, and . They understand that if the patient develops chronic infection in the knee that this could result in need for [id number] amputation. The patient was brought back to the operative theater. Gen. anesthesia was administered. The left lower extremity was prepped and draped in usual sterile fashion. We made standard anterior incision just off to the medial side over the medial retinaculum. We incised through skin and subcutaneous tissue. We then incised through the medial retinaculum. We found approximately 50 cc of seropurulent fluid. We took 2 cultures of this fluid. We then irrigated the knee with 3 L of saline laden with antibiotics. We manually debrided the synovium using digital manipulation. Hemostasis was achieved. Instruments and drapes were exchanged. We then placed a deep large bore Hemovac drain. This was sewn into place. We closed the medial retinaculum with 0 PDS. We closed skin with 2-0 Monocryl and 3-0 nylon. The patient is already on standing antibiotics so I will not make adjustments to this regimen. The infectious disease physician will continue with managing the antibiotics. The patient can weight-bear as tolerated. We will likely remove the drain after a couple days. We did start the patient on Lovenox while he is here in the hospital. Lit Evangelista MD Jan 31, 2017 09:00
[2017-01-31] MEDS ORDERED: NORC5TAB PO (09:03)
[2017-01-31] MEDS ORDERED: fentaNYL CITRATE 250 MCG/5 ML AMP ONE (09:19)
--- NOTE | 2017-01-31 11:03 | HHI.FPPN ---
Subjective Remarks Mr. Garcia was afebrile with mild HTN overnight (SBP 140's-150's). Patient was seen post-operatively in the company of his and daughter in law. Patient does not report complaints at this time. Patient denies post-operative knee pain. No abdominal pain. Patient's provides supplemental history that patient had unspecified carotid surgery shortly prior to hospitalization for bacteremia/cholecystitis. also states patient reportedly had prior "bone" spur removed from R knee in distant past. Objective Vitals Vital Signs Date Time Temp Pulse Resp B/P Pulse Ox O2 Delivery O2 Flow Rate FiO2 01/31/17 09:45 65 16 147/75 99 Nasal Cannula 3 01/31/17 09:30 63 16 150/76 99 Nasal Cannula 3 01/31/17 09:15 71 16 149/80 99 Nasal Cannula 3 01/31/17 09:07 97.3 69 16 144/69 99 Nasal Cannula 3 01/31/17 06:00 67 01/31/17 05:19 16 01/31/17 04:00 98.7 69 18 189/86 95 01/31/17 04:00 69 01/31/17 02:00 68 01/31/17 00:00 98.5 67 18 168/77 93 01/31/17 00:00 67 01/30/17 22:00 71 01/30/17 21:41 96 21 01/30/17 20:00 99.5 73 19 181/77 94 01/30/17 20:00 73 01/30/17 18:00 99.8 01/30/17 18:00 75 01/30/17 16:00 68 19 134/63 96 01/30/17 16:00 75 01/30/17 14:00 75 01/30/17 12:00 75 01/30/17 12:00 24 01/30/17 12:00 99.8 70 16 174/74 97 I/O 01/30/17 01/30/17 01/30/17 01/31/17 01/31/17 01/31/17 07:00 15:00 23:00 07:00 15:00 23:00 Intake Total 787 ml 2570 ml 1106 ml 1100 ml Output Total 800 ml 1480 ml 470 ml 200 ml Balance -13 ml 1090 ml 636 ml 900 ml Intake Oral 240 ml 100 ml 0 ml IV Total 787 ml 2330 ml 1006 ml 100 ml Other 1000 ml Output Urine Total 450 ml 1050 ml 350 ml 0 ml Drainage Total 350 ml 430 ml 120 ml 0 ml Estimated Blood Loss 50 ml Other 150 ml # Bowel Movements 0 0 0 Result Diagram: 01/31/17 0426 01/31/17 0426 Imaging Last Impressions Chest X-Ray 01/29/17 1332 Signed Impressions: Service Date/Time: January 13:36 - CONCLUSION: Small left effusion. Hector Soliman Jr., MD Objective Remarks GENERAL: No acute distress SKIN: No lesions or ecchymoses. Outlined area of prior erythema in RLE appears resolved/ significantly improved. EYES: Pupils equal round and reactive. Extraocular motions intact. No scleral icterus. No injection or drainage. CARDIOVASCULAR: Regular rate and rhythm without murmurs, gallops, or rubs. RESPIRATORY: Clear to auscultation. Breath sounds equal bilaterally. No wheezes , rales, or rhonchi. GASTROINTESTINAL: Abdomen soft, NT, ND. No hepato-splenomegaly, or palpable masses. No guarding. Cholecystotomy tube in place and draining clearish/ brownish fluid. Wound site c/d/i. MUSCULOSKELETAL: Extremities without clubbing, cyanosis, or edema. No joint tenderness, effusion, or edema noted. L knee dressed; drain in knee with sanguinous fluid NEUROLOGICAL: Awake and alert. Cranial nerves intact. Motor and sensory function grossly within normal limits. Patient responded to questions but appeared mildly confused/demented. A/P Assessment and Plan 71 year old male with history of recent hospitalization for gastritis and E. coli bacteremia 2/2 acute cholecystitis presenting with AMS and sepsis. Now with improving mental status with broad spectrum IV antibiotics and IV fluids. Synovial fluid suggestive of septic arthritis; washout/drain performed 01/31 Discharge Planning Dispo is back to SNF. Estimated timeframe of at least 3-5 days until he is ready for SNF. Will consult CM for discharge planning and have PT work with patient as mental status improves. Will discuss with Dr. Mosley. Problem List: (1) Septic arthritis Status: Acute Plan: -Ortho consulted: Arthroscopy with irrigation/drain performed by Dr. Evangelista 01/31 -PT; can weight bear as tolerated -Will plan to remove drain in a few days -Initiated Lovenox -Continue IV antibiotics per ID -ID consulted -Continue IV Zyvox, Azactam per ID -Monitor synovial cultures Impression: Left knee swelling. Synovial aspiration performed; 40 mL of turbid fluid obtained. Aspirate revealed approximately 30 K WBC, 3K RBC, 86 neutrophils. ESR greater than 140, CRP 30 Synovial cultures (01/31)- pending (2) Sepsis Status: Acute Plan: -Continue to monitor fluid status/output -Continue management per ID -IV Azactam -IV Zyvox -Continue vitals/telemetry -Monitor BP and restart home antihypertensives -Blood cultures- will add although suspect negative on antibiotic therapy Impression: resolved. Patient met criteria with new fever, leukocytosis, and suspected source (cellulitis) Decreased urine output (~0.4cc/kg/hr); given IV fluid supplementation Lactic acid normal at 0.8 CT abdomen negative for acute process Chest Xray with small left effusion 2D echo shows normal EF without vegetation Left knee painful, but without erythema or obvious effusion ESR >140, CRP 30 Urine Cultures (01/29)- negative x48hrs Synovial cultures (01/31)- pending (3) Altered mental status Status: Acute Plan: Improving; suspected initially related to sepsis. (4) Cellulitis of leg, right Status: Acute Plan: Significantly improved compared to yesterday. ? 2/2 recent bacteremia. -antibiotics, as above. -bilateral doppler 01/27 negative. Doubt DVT, given high sensitivity of this exam. (5) Hypertension Status: Chronic Plan: -Will restart home coreg, cardizem -Will monitor BP on restarted Cardizem, then consider restarting Hydralazine -Will hold home lisinopril for ~1more day due to recent Cr elevation suspected secondary to prerenal cause -PRN clonidine (6) Gastritis Status: Resolved Plan: Hemoglobin decreased to 7.8, compared to 9 yesterday. With all cell lines decreased compared to last CBC, this is likely dilutional. -no diarrhea or emesis. Check hemoccult with next BM. -start iron supplementation -cont protonix (7) Cholecystostomy care Status: Acute Plan: -wound site c/d/i -CT ab shows no acute process (8) Dementia Status: Chronic Plan: -cont aricept (9) Major depression Status: Acute Plan: -hold celexa, given increased risk of serotonin syndrome with zyvox (10) Dietary counseling and surveillance Status: Acute Plan: -diet: passed bedside swallow eval. Regular, thin liquids per speech -IVF: MIVF DVT ppx: Lovenox initiated per ortho. SCDs. -Will monitor closely due to recent GI bleed Problem Qualifiers (1) Sepsis: Qualified Code: A41.9 - Sepsis, due to unspecified organism (2) Altered mental status: Qualified Code: R41.0 - Delirium (3) Hypertension: Qualified Code: I10 - Essential hypertension (4) Dementia: (5) Major depression: Qualified Code: F33.9 - Recurrent major depressive disorder, remission status unspecified Sergo Pascual MD R2 Jan 31, 2017 11:03
[2017-01-31] MEDS: MULTIVITAMINS/MINERALS THERAPEUTIC TAB PO SCH (11:26)
[2017-01-31] MEDS: LACTOBACILLUS ACIDOPHILUS TAB PO SCH ×2 (11:26→19:51)
[2017-01-31] MEDS: ASPIRIN 81 MG CHEW TAB CHEW SCH (11:26)
[2017-01-31] MEDS: COLCHICINE 0.6 MG TAB PO SCH ×2 (11:27→19:52)
[2017-01-31] MEDS: SODIUM CHLORIDE 0.9% FLUSH 5 ML FLUSH IVF SCH ×2 (11:27→19:52)
[2017-01-31] MEDS: PANTOPRAZOLE SOD 40 MG DELAYED RELEASE TAB PO SCH (11:27)
[2017-01-31] MEDS: CARVEDILOL 6.25 MG TAB PO SCH ×2 (11:27→19:52)
[2017-01-31] MEDS: FERROUS SULFATE 325 MG (65 MG ELEMENTAL IRON) TAB PO SCH ×2 (11:27→19:51)
[2017-01-31] MEDS ORDERED: PROPOFOL 200 MG/20 ML AMP IV ONE (12:00)
[2017-01-31] MEDS ORDERED: ePHEDrine/NS 25 MG/5 ML SYR IV ONE (12:00)
[2017-01-31] MEDS ORDERED: ONDANSETRON HCL 4 MG/2 ML VIAL IV PUSH ONE (12:00)
[2017-01-31] MEDS ORDERED: cloNIDine HCL 0.1 MG TAB PO PRN (12:30)
[2017-01-31] MEDS ORDERED: HYDRALAZINE 100 MG PO SCH (14:00)
--- NOTE | 2017-01-31 14:14 | HHI.IDPN ---
Subjective Subjective Remarks Notes reviewed Appreciate Dr Evangelista's help Had OR on his L knee today Tap studies C/W septic knee, crystals negative Temps ok Antibiotics Azactam Zyvox Past Medical History Reviewed Allergies: Coded Allergies: Bactrim (Verified Allergy, Severe, Anaphylaxis, 01/10/17) Ceftin (Verified Allergy, Severe, Anaphylaxis, 01/10/17) Flagyl (Verified Allergy, Severe, Fever, colitis, 01/10/17) Penicillin (Verified Allergy, Severe, Anaphylaxis, 01/10/17) Sulfa (Verified Allergy, Severe, Anaphylaxis, 01/10/17) MRI PRECAUTION (Verified Adverse Reaction, Severe, BLADDER STIMULATOR, ) BRAIN ONLY ON RECEIVE ONLY COIL, P.O. 01/11/17, DML *MDRO Multi-Drug Resistant Organism (Verified Adverse Reaction, Unknown, MRSA, 01/30/17) MRSA PCR (nares) POSITIVE - 01/11/17 Demerol (Verified Adverse Reaction, Unknown, Psychosis, 01/30/17) Morphine (Verified Adverse Reaction, Unknown, Psychosis, 01/30/17) Percocet (Verified Adverse Reaction, Unknown, Psychosis, 01/30/17) Uncoded Allergies: mycins (Allergy, Severe, Fever, colitis, 12/15/13) surgical tape (Allergy, Severe, 12/15/13) Objective . Vital Signs Date Time Temp Pulse Resp B/P Pulse Ox O2 Delivery O2 Flow Rate FiO2 01/31/17 09:45 65 16 147/75 99 Nasal Cannula 3 01/31/17 09:30 63 16 150/76 99 Nasal Cannula 3 01/31/17 09:15 71 16 149/80 99 Nasal Cannula 3 01/31/17 09:07 97.3 69 16 144/69 99 Nasal Cannula 3 01/31/17 06:00 67 01/31/17 05:19 16 01/31/17 04:00 98.7 69 18 189/86 95 01/31/17 04:00 69 01/31/17 02:00 68 01/31/17 00:00 98.5 67 18 168/77 93 01/31/17 00:00 67 01/30/17 22:00 71 01/30/17 21:41 96 21 01/30/17 20:00 99.5 73 19 181/77 94 01/30/17 20:00 73 01/30/17 18:00 99.8 01/30/17 18:00 75 01/30/17 16:00 68 19 134/63 96 01/30/17 16:00 75 01/30/17 01/30/17 01/31/17 15:00 23:00 07:00 Intake Total 2570 ml 1106 ml Output Total 1480 ml 470 ml Balance 1090 ml 636 ml Intake Oral 240 ml 100 ml IV Total 2330 ml 1006 ml Output Urine Total 1050 ml 350 ml Drainage Total 430 ml 120 ml # Bowel Movements 0 0 . Laboratory Tests Test 01/30/17 01/31/17 04:07 04:26 White Blood Count 11.4 TH/MM3 10.3 TH/MM3 Red Blood Count 3.11 MIL/MM3 3.16 MIL/MM3 Hemoglobin 7.8 GM/DL 8.1 GM/DL Hematocrit 24.3 % 25.0 % Mean Corpuscular Volume 78.3 FL 79.2 FL Mean Corpuscular Hemoglobin 25.0 PG 25.7 PG Mean Corpuscular Hemoglobin 31.9 % 32.5 % Concent Red Cell Distribution Width 19.0 % 19.2 % Platelet Count 386 TH/MM3 418 TH/MM3 Mean Platelet Volume 8.2 FL 8.4 FL Neutrophils (%) (Auto) 78.4 % 76.9 % Lymphocytes (%) (Auto) 8.4 % 11.3 % Monocytes (%) (Auto) 12.9 % 10.8 % Eosinophils (%) (Auto) 0.0 % 0.5 % Basophils (%) (Auto) 0.3 % 0.5 % Neutrophils # (Auto) 8.9 TH/MM3 7.9 TH/MM3 Lymphocytes # (Auto) 1.0 TH/MM3 1.2 TH/MM3 Monocytes # (Auto) 1.5 TH/MM3 1.1 TH/MM3 Eosinophils # (Auto) 0.0 TH/MM3 0.0 TH/MM3 Basophils # (Auto) 0.0 TH/MM3 0.0 TH/MM3 CBC Comment DIFF FINAL DIFF FINAL Differential Comment Erythrocyte Sedimentation Rate GREATER THAN 140 mm/hr Laboratory Tests Test 01/29/17 01/29/17 01/30/17 01/31/17 15:28 19:05 04:07 04:26 Total Bilirubin 1.1 MG/DL 1.0 MG/DL 0.7 MG/DL Direct Bilirubin 0.6 MG/DL Indirect Bilirubin 0.5 MG/DL Aspartate Amino Transf 12 U/L 9 U/L 23 U/L (AST/SGOT) Alanine Aminotransferase 28 U/L 24 U/L 25 U/L (ALT/SGPT) Alkaline Phosphatase 133 U/L 129 U/L 143 U/L Ammonia 12 MCMOL/L Total Protein 6.3 GM/DL 6.2 GM/DL 6.3 GM/DL Albumin 2.0 GM/DL 1.9 GM/DL 1.8 GM/DL Vitamin B12 Level 414 PG/ML Sodium Level 139 MEQ/L 139 MEQ/L 141 MEQ/L Potassium Level 3.9 MEQ/L 3.5 MEQ/L 3.7 MEQ/L Chloride Level 102 MEQ/L 105 MEQ/L 109 MEQ/L Carbon Dioxide Level 26.8 MEQ/L 24.2 MEQ/L 24.4 MEQ/L Anion Gap 10 MEQ/L 10 MEQ/L 8 MEQ/L Blood Urea Nitrogen 35 MG/DL 32 MG/DL 25 MG/DL Creatinine 1.93 MG/DL 1.44 MG/DL 0.98 MG/DL Estimat Glomerular Filtration 34 ML/MIN 48 ML/MIN 75 ML/MIN Rate Random Glucose 92 MG/DL 123 MG/DL 112 MG/DL Calcium Level 8.8 MG/DL 8.9 MG/DL 9.2 MG/DL C-Reactive Protein 30.00 MG/DL Microbiology Date/Time Procedure Status Source Growth 01/29/17 18:00 Urine Culture - Final Complete Urine Catheterized Urine NO GROWTH IN 48 HOURS. 01/30/17 14:42 Gram Stain - Final Resulted Fluid Synovial Fluid 01/30/17 14:42 Body Fluid Culture - Preliminary Resulted Fluid Synovial Fluid NO GROWTH IN 24 HOURS. 01/31/17 08:31 Gram Stain Received Wound Knee Pending 01/31/17 08:31 Wound Culture Received Wound Knee Pending 01/31/17 08:31 Acid Fast Stain Received Wound Knee Pending 01/31/17 08:31 Mycobacterial Culture Received Wound Knee Pending 01/31/17 08:31 Fungal Smear Received Wound Knee Pending 01/31/17 08:31 Fungal Culture Received Wound Knee Pending 01/31/17 08:31 Gram Stain Received Wound Knee Pending 01/31/17 08:31 Wound Culture Received Wound Knee Pending 01/31/17 08:31 Acid Fast Stain Received Wound Knee Pending 01/31/17 08:31 Mycobacterial Culture Received Wound Knee Pending 01/31/17 08:31 Fungal Smear Received Wound Knee Pending 01/31/17 08:31 Fungal Culture Received Wound Knee Pending Imaging Last Impressions Chest X-Ray 01/29/17 1332 Signed Impressions: Service Date/Time: January 13:36 - CONCLUSION: Small left effusion. Hector Soliman Jr., MD Physical Exam GENERAL: Awake and alert, interactive, not in resp distress SKIN: Warm and dry, no generalized rash, no ecchymoses or embolic lesions. HEENT: [place] conjunctivae, no petechia or hemorrhage. No scleral icterus. No injection or drainage. Moist oral mucosa. Airway patent. NECK: Trachea midline. No JVD or lymphadenopathy. Supple, nontender, no meningeal signs. CARDIOVASCULAR: Regular rate and rhythm without murmurs, gallops, or rubs. RESPIRATORY: Clear to auscultation. Breath sounds equal bilaterally. No wheezes , rales, or rhonchi. Decreased BS at bases. GASTROINTESTINAL: Abdomen soft, nondistended. Mild tenderness in RUQ, GB tube in place, has dark green fluid. Bowel sounds present and normoactive. No organomegaly. No guarding. No rebound MUSCULOSKELETAL: Extremities without clubbing, cyanosis. No calf tenderness. Negative Homans sign bilaterally. RLE: Has improving patches of erythema on anterior leg, and ankle, with minimal swelling now of his L ankle. LLE: has dressing in place, hemovac drain in place, with bloody fluid. NEUROLOGICAL: Non-focal LINE: PIV with no evidence of infection Assessment & Plan Remarks IMPRESSION New sepsis, with fever and chills, and encephalopathy - source? L knee - swollen and tender, though not red, fluid looks septic, crystals negative RLE ?cellulitis, ?inflammatory arthritis R ankle Episode of Escherichia coli sepsis due to acute cholecystitis - Better has a tube cholecystostomy in place, LFTs are better Multiple antibiotic allergies, has tolerated quinolones, Azactam, Tygacil RECOMMENDATION Follow C/S Monitor temps Monitor progress Continue colchicine for inflammatory arthritis Continue Azactam and Zyvox Vanessa Srinivasan MD Jan 31, 2017 14:14
[2017-01-31] MEDS: hydrALAZINE HCL 25 MG TAB PO SCH ×2 (14:33→22:03)
[2017-01-31] MEDS: DILTIAZEM-CD 240 MG CAP ER PO SCH (19:52)
[2017-01-31] MEDS: DONEPEZIL HCL 5 MG TAB PO SCH (19:52)
[2017-01-31] MEDS ORDERED: DILTIAZEM-CD 240 MG CAP ER PO SCH (21:00)
[2017-01-31] MEDS: LATANOPROST 0.005% OPHT SOLN 2.5 ML BTL EACH EYE SCH (22:11)
[2017-01-31] MEDS: LISINOPRIL 20 MG TAB PO SCH (22:15)
[2017-02-01] VITALS: BP 129/63; PULSE 53; RESP 18; TEMP 98.7; O2SAT 97
[2017-02-01] MEDS: LINEZOLID 600 MG PREMIX 300 ML IV SCH ×2 (02:46→15:07)
[2017-02-01 04:00] VITALS: BP 147/67; PULSE 50; RESP 18; TEMP 98.9; O2SAT 98
[2017-02-01] MEDS: CHLORHEXIDINE GLUCONATE 2 % 1 PACK (2 CLOTHS)(taper/protocol) TOP SCH (04:00)
[2017-02-01] MEDS: DEXT 5%-NACL 0.45% 1000 ML INJ 1,000 ML IV SCH ×3 (05:27→23:04)
[2017-02-01] MEDS: ACETAMINOPHEN/HYDROcodone 325 MG/5 MG TAB PO PRN ×4 (06:18→21:28)
[2017-02-01] MEDS: AZTREONAM INJ 2,000 MG in SODIUM CHLORIDE 0.9% INJ 100 ML IV SCH ×3 (06:18→23:01)
[2017-02-01] MEDS: CLOTRIMAZOLE 1% CREAM 15 GM TOPICAL SCH ×3 (06:20→21:33)
[2017-02-01] MEDS: GABAPENTIN 400 MG CAP PO SCH ×3 (06:21→21:26)
[2017-02-01] MEDS: hydrALAZINE HCL 25 MG TAB PO SCH ×3 (06:22→21:27)
[2017-02-01 07:38] LABS: AUTOMATED NEUTROPHIL # 5.9 TH/MM3 (1.8-7.7); BASOPHIL % 0.5 % (0.0-2.0); EOSINOPHIL # 0.1 TH/MM3 (0-0.4); EOSINOPHIL % 1.5 % (0.0-4.0); HEMATOCRIT 23.3 % (39.0-51.0); HEMO FLAGS DIFF FINAL; LYMPH % 12.3 % (9.0-44.0); MEAN CELL VOLUME 78.5 FL (80.0-100.0); MEAN CORPUSCULAR HEMOGLOBIN 25.1 PG (27.0-34.0); MONO % 10.9 % (0.0-8.0); NEUT % 74.8 % (16.0-70.0); PLATELET COUNT 343 TH/MM3 (150-450); RED BLOOD COUNT 2.97 MIL/MM3 (4.50-5.90); RED CELL DISTRIBUTION WIDTH 19.1 % (11.6-17.2); WHITE BLOOD COUNT 7.9 TH/MM3 (4.0-11.0)
--- NOTE | 2017-02-01 07:57 | HHI.FPPN ---
Subjective Remarks Mr. Garcia was afebrile with HR in 50's overnight. Patient reports that his L knee pain is well controlled at this time and that he does not have any complaints. Patient does not report chest pain, shortness of breath, nausea/ vomiting, or dysuria. (Sergo Pascual MD R2) Objective Vitals Vital Signs Date Time Temp Pulse Resp B/P Pulse Ox O2 Delivery O2 Flow Rate FiO2 02/01/17 04:00 98.9 50 18 147/67 98 02/01/17 00:00 98.7 53 18 129/63 97 01/31/17 23:37 98.2 56 14 133/63 98 01/31/17 22:00 67 01/31/17 20:45 98 Nasal Cannula 2.00 01/31/17 20:00 64 01/31/17 20:00 99.0 64 16 183/86 95 01/31/17 18:00 72 01/31/17 17:55 93 Nasal Cannula 2.00 01/31/17 16:00 98.6 73 17 205/93 99 01/31/17 16:00 73 01/31/17 14:00 64 01/31/17 12:00 69 01/31/17 12:00 98.2 69 14 187/87 99 01/31/17 10:00 65 01/31/17 09:45 65 16 147/75 99 Nasal Cannula 3 01/31/17 09:30 63 16 150/76 99 Nasal Cannula 3 01/31/17 09:15 71 16 149/80 99 Nasal Cannula 3 01/31/17 09:07 97.3 69 16 144/69 99 Nasal Cannula 3 01/31/17 08:00 98.3 65 18 185/80 93 01/31/17 08:00 65 I/O 01/31/17 01/31/17 01/31/17 02/01/17 02/01/17 02/01/17 07:00 15:00 23:00 07:00 15:00 23:00 Intake Total 1106 ml 1533 ml 801 ml 0 ml Output Total 470 ml 670 ml 500 ml 150 ml Balance 636 ml 863 ml 301 ml -150 ml Intake Oral 100 ml 0 ml 240 ml 0 ml IV Total 1006 ml 533 ml 561 ml Other 1000 ml Output Urine Total 350 ml 300 ml 450 ml 150 ml Stool Total 0 ml Drainage Total 120 ml 170 ml 50 ml Estimated Blood Loss 50 ml Other 150 ml # Voids 1 # Bowel Movements 0 0 0 (Sergo Pasucal MD R2) Result Diagram: 02/01/17 0717 01/31/17 0426 Imaging Last Impressions Chest X-Ray 01/29/17 1332 Signed Impressions: Service Date/Time: January 13:36 - CONCLUSION: Small left effusion. Hector Soliman Jr., MD Objective Remarks GENERAL: No acute distress SKIN: No lesions or ecchymoses. Outlined area of prior erythema in RLE appears resolved/ significantly improved. EYES: Pupils equal round and reactive. Extraocular motions intact. No scleral icterus. No injection or drainage. CARDIOVASCULAR: Regular rate and rhythm without murmurs. Normal peripheral perfusion. RESPIRATORY: Clear to auscultation. Breath sounds equal bilaterally. No wheezes , rales, or rhonchi. GASTROINTESTINAL: Abdomen soft, NT, ND. No hepato-splenomegaly, or palpable masses. No guarding. Cholecystotomy tube in place and draining clearish/ brownish fluid. Wound site c/d/i. MUSCULOSKELETAL: Extremities without clubbing, cyanosis, or edema. No joint tenderness, effusion, or edema noted. L knee dressed; drain from knee with sanguinous fluid NEUROLOGICAL: Awake and alert. Cranial nerves grossly intact. Motor and sensory function grossly within normal limits. Patient responded to questions; he appeared oriented (Sergo Pascual MD R2) A/P Assessment and Plan 71 year old male with history of recent hospitalization for gastritis and E. coli bacteremia 2/2 acute cholecystitis presenting with AMS and sepsis. Now with improving mental status with broad spectrum IV antibiotics and IV fluids. Synovial fluid suggestive of septic arthritis; washout/drain performed 01/31 Discharge Planning Dispo is back to SNF. Estimated timeframe of at least 3-5 days until he is ready for SNF. Will consult CM for discharge planning and have PT work with patient as mental status improves. Will discuss with Dr. Mosley. (Sergo Pascual MD R2) Attending Attestation Pt. examined and case discussed with resident physician I have read the above note and agree with the assessment/plan as discussed with me I was involved in all medical decision making for this patient Oumar Mosley MD (Oumar Mosley MD) Problem List: (1) Septic arthritis Status: Acute Plan: -Ortho consulted: Arthroscopy with irrigation/drain performed by Dr. Evangelista 01/31 -PT; can weight bear as tolerated -Will plan to remove drain in a few days -Initiated Lovenox -Continue IV antibiotics per ID -ID consulted -Continue IV Zyvox, Azactam per ID -Monitor synovial cultures Impression: Left knee swelling. Synovial aspiration performed; 40 mL of turbid fluid obtained. Aspirate revealed approximately 30 K WBC, 3K RBC, 86 neutrophils. ESR greater than 140, CRP 30 Synovial cultures (01/30)- negative x2 days Synovial cultures (01/31)- negative as of today (2) Sepsis Status: Resolved Plan: -Continue to monitor fluid status/output -Continue management per ID -IV Azactam -IV Zyvox -Continue vitals/telemetry -Monitor BP; restart home antihypertensives -Blood cultures- will add although suspect negative on antibiotic therapy Impression: resolved. Patient met criteria with new fever, leukocytosis, and suspected source (cellulitis) Decreased urine output (~0.4cc/kg/hr); given IV fluid supplementation Lactic acid normal at 0.8 CT abdomen negative for acute process Chest XR with small left effusion 2D echo shows normal EF without vegetation Left knee painful, but without erythema or obvious effusion ESR >140, CRP 30 Urine Cultures (01/29)- negative x48hrs Synovial cultures (01/31)- pending (3) Altered mental status Status: Resolved Plan: Improving; suspected initially related to sepsis. (4) Cellulitis of leg, right Status: Acute Plan: Significantly improved. ? 2/2 recent bacteremia. -antibiotics, as above. -bilateral doppler 01/27 negative. Doubt DVT, given high sensitivity of this exam. (5) Hypertension Status: Chronic Plan: 02/01- BP controlled in 140's; HR in 50's w/o symptoms -Patient's Coreg, Cardizem restarted -Hydralazine 25mg q8hrs -Restarted patient's home Lisinopril 01/31 overnight due to SBP in 180's -PRN clonidine (6) Gastritis Status: Resolved Plan: -Will check hemoccult -Continue iron supplementation -cont protonix Impression: Hemoglobin decreased to 7.5 today, compared to 8.1 01/31. With all cell lines decreased compared to last CBC, this is likely dilutional. -no diarrhea or emesis (7) Cholecystostomy care Status: Acute Plan: -wound site c/d/i -CT ab shows no acute process (8) Dementia Status: Chronic Plan: -cont aricept (9) Major depression Status: Acute Plan: -hold celexa, given increased risk of serotonin syndrome with zyvox (10) Dietary counseling and surveillance Status: Acute Plan: -diet: passed bedside swallow eval. Regular, thin liquids per speech -IVF: MIVF DVT ppx: Lovenox initiated per ortho. SCDs. -Will monitor closely due to recent GI bleed (Sergo Pascual MD R2) Problem Qualifiers (1) Sepsis: Qualified Code: A41.9 - Sepsis, due to unspecified organism (2) Altered mental status: Qualified Code: R41.0 - Delirium (3) Hypertension: Qualified Code: I10 - Essential hypertension (4) Dementia: (5) Major depression: Qualified Code: F33.9 - Recurrent major depressive disorder, remission status unspecified Sergo Pascual MD R2 Feb 01, 2017 07:57 Oumar Mosley MD Feb 01, 2017 18:22
[2017-02-01 08:02] LABS: BICARBONATE 22.6 MEQ/L (21.0-32.0); POTASSIUM 3.9 MEQ/L (3.5-5.1)
[2017-02-01 08:14] VITALS: BP 147/67; PULSE 54; RESP 20; TEMP 98.4; O2SAT 96
[2017-02-01] MEDS: CARVEDILOL 6.25 MG TAB PO SCH ×2 (08:24→21:26)
[2017-02-01] MEDS: LACTOBACILLUS ACIDOPHILUS TAB PO SCH ×2 (08:24→21:26)
[2017-02-01] MEDS: ENOXAPARIN SODIUM 40 MG/0.4 ML SYRINGE SQ SCH (08:24)
[2017-02-01] MEDS: MULTIVITAMINS/MINERALS THERAPEUTIC TAB PO SCH (08:25)
[2017-02-01] MEDS: ASPIRIN 81 MG CHEW TAB CHEW SCH (08:26)
[2017-02-01] MEDS: SODIUM CHLORIDE 0.9% FLUSH 5 ML FLUSH IVF SCH ×2 (08:26→21:31)
[2017-02-01] MEDS: PANTOPRAZOLE SOD 40 MG DELAYED RELEASE TAB PO SCH (08:26)
[2017-02-01] MEDS: FERROUS SULFATE 325 MG (65 MG ELEMENTAL IRON) TAB PO SCH ×2 (08:26→21:27)
[2017-02-01] MEDS: COLCHICINE 0.6 MG TAB PO SCH ×2 (08:27→21:27)
--- NOTE | 2017-02-01 09:29 | PD.ORT.PN ---
Subjective Subjective Remarks pt resting comfortably in bed no complaints reviewed operative findings and treatment for left knee Objective Vitals Vital Signs Date Time Temp Pulse Resp B/P Pulse Ox O2 Delivery O2 Flow Rate FiO2 02/01/17 08:14 98.4 54 20 147/67 96 02/01/17 04:00 98.9 50 18 147/67 98 02/01/17 00:00 98.7 53 18 129/63 97 01/31/17 23:37 98.2 56 14 133/63 98 01/31/17 22:00 67 01/31/17 20:45 98 Nasal Cannula 2.00 01/31/17 20:00 64 01/31/17 20:00 99.0 64 16 183/86 95 01/31/17 18:00 72 01/31/17 17:55 93 Nasal Cannula 2.00 01/31/17 16:00 98.6 73 17 205/93 99 01/31/17 16:00 73 01/31/17 14:00 64 01/31/17 12:00 69 01/31/17 12:00 98.2 69 14 187/87 99 01/31/17 10:00 65 01/31/17 09:45 65 16 147/75 99 Nasal Cannula 3 01/31/17 09:30 63 16 150/76 99 Nasal Cannula 3 I/O 01/31/17 01/31/17 01/31/17 02/01/17 02/01/17 02/01/17 07:00 15:00 23:00 07:00 15:00 23:00 Intake Total 1106 ml 1533 ml 801 ml 0 ml Output Total 470 ml 670 ml 500 ml 150 ml Balance 636 ml 863 ml 301 ml -150 ml Intake Oral 100 ml 0 ml 240 ml 0 ml IV Total 1006 ml 533 ml 561 ml Other 1000 ml Output Urine Total 350 ml 300 ml 450 ml 150 ml Stool Total 0 ml Drainage Total 120 ml 170 ml 50 ml Estimated Blood Loss 50 ml Other 150 ml # Voids 1 # Bowel Movements 0 0 0 Result Diagram: 02/01/1717 02/01/17716 Objective Remarks seen by Dr. Dima Dunbar left knee dressings intact, drain in place +NVI no calf tenderness Assessment & Plan Assessment and Plan POD # 1 s/p L knee arthrotomy I&D WBAT drain L knee IV antibiotics, await cultures from knee Lovenox dvt prop Suzanne Hoffman Feb 01, 2017 09:29
[2017-02-01 12:14] VITALS: BP 144/67; PULSE 50; RESP 19; TEMP 98.4; O2SAT 99
--- NOTE | 2017-02-01 13:43 | HHI.IDPN ---
Subjective Subjective Remarks Notes reviewed D/W RN Patient sleeping, got medicated for pain Hemovac still in place C/S from OR negative so far Has low grade temps Antibiotics Azactam Zyvox Past Medical History Reviewed Allergies: Coded Allergies: Bactrim (Verified Allergy, Severe, Anaphylaxis, 01/10/17) Ceftin (Verified Allergy, Severe, Anaphylaxis, 01/10/17) Flagyl (Verified Allergy, Severe, Fever, colitis, 01/10/17) Penicillin (Verified Allergy, Severe, Anaphylaxis, 01/10/17) Sulfa (Verified Allergy, Severe, Anaphylaxis, 01/10/17) MRI PRECAUTION (Verified Adverse Reaction, Severe, BLADDER STIMULATOR, ) BRAIN ONLY ON RECEIVE ONLY COIL, P.O. 01/11/17, DML *MDRO Multi-Drug Resistant Organism (Verified Adverse Reaction, Unknown, MRSA, 01/30/17) MRSA PCR (nares) POSITIVE - 01/11/17 Demerol (Verified Adverse Reaction, Unknown, Psychosis, 01/30/17) Morphine (Verified Adverse Reaction, Unknown, Psychosis, 01/30/17) Percocet (Verified Adverse Reaction, Unknown, Psychosis, 01/30/17) Uncoded Allergies: mycins (Allergy, Severe, Fever, colitis, 12/15/13) surgical tape (Allergy, Severe, 12/15/13) Objective . Vital Signs Date Time Temp Pulse Resp B/P Pulse Ox O2 Delivery O2 Flow Rate FiO2 02/01/17 12:14 98.4 50 19 144/67 99 02/01/17 08:14 98.4 54 20 147/67 96 02/01/17 04:00 98.9 50 18 147/67 98 02/01/17 00:00 98.7 53 18 129/63 97 01/31/17 23:37 98.2 56 14 133/63 98 01/31/17 22:00 67 01/31/17 20:45 98 Nasal Cannula 2.00 01/31/17 20:00 64 01/31/17 20:00 99.0 64 16 183/86 95 01/31/17 18:00 72 01/31/17 17:55 93 Nasal Cannula 2.00 01/31/17 16:00 98.6 73 17 205/93 99 01/31/17 16:00 73 01/31/17 14:00 64 01/31/17 01/31/17 02/01/17 15:00 23:00 07:00 Intake Total 1533 ml 801 ml 0 ml Output Total 670 ml 500 ml 150 ml Balance 863 ml 301 ml -150 ml Intake Oral 0 ml 240 ml 0 ml IV Total 533 ml 561 ml Other 1000 ml Output Urine Total 300 ml 450 ml 150 ml Stool Total 0 ml Drainage Total 170 ml 50 ml Estimated Blood Loss 50 ml Other 150 ml # Voids 1 # Bowel Movements 0 0 . Laboratory Tests Test 01/31/17 02/01/17 04:26 07:17 White Blood Count 10.3 TH/MM3 7.9 TH/MM3 Red Blood Count 3.16 MIL/MM3 2.97 MIL/MM3 Hemoglobin 8.1 GM/DL 7.5 GM/DL Hematocrit 25.0 % 23.3 % Mean Corpuscular Volume 79.2 FL 78.5 FL Mean Corpuscular Hemoglobin 25.7 PG 25.1 PG Mean Corpuscular Hemoglobin 32.5 % 32.0 % Concent Red Cell Distribution Width 19.2 % 19.1 % Platelet Count 418 TH/MM3 343 TH/MM3 Mean Platelet Volume 8.4 FL 8.1 FL Neutrophils (%) (Auto) 76.9 % 74.8 % Lymphocytes (%) (Auto) 11.3 % 12.3 % Monocytes (%) (Auto) 10.8 % 10.9 % Eosinophils (%) (Auto) 0.5 % 1.5 % Basophils (%) (Auto) 0.5 % 0.5 % Neutrophils # (Auto) 7.9 TH/MM3 5.9 TH/MM3 Lymphocytes # (Auto) 1.2 TH/MM3 1.0 TH/MM3 Monocytes # (Auto) 1.1 TH/MM3 0.9 TH/MM3 Eosinophils # (Auto) 0.0 TH/MM3 0.1 TH/MM3 Basophils # (Auto) 0.0 TH/MM3 0.0 TH/MM3 CBC Comment DIFF FINAL DIFF FINAL Differential Comment Laboratory Tests Test 01/31/17 02/01/17 04:26 07:17 Sodium Level 141 MEQ/L 141 MEQ/L Potassium Level 3.7 MEQ/L 3.9 MEQ/L Chloride Level 109 MEQ/L 109 MEQ/L Carbon Dioxide Level 24.4 MEQ/L 22.6 MEQ/L Anion Gap 8 MEQ/L 9 MEQ/L Blood Urea Nitrogen 25 MG/DL 21 MG/DL Creatinine 0.98 MG/DL 0.92 MG/DL Estimat Glomerular Filtration 75 ML/MIN 81 ML/MIN Rate Random Glucose 112 MG/DL 123 MG/DL Calcium Level 9.2 MG/DL 8.9 MG/DL Total Bilirubin 0.7 MG/DL Aspartate Amino Transf 23 U/L (AST/SGOT) Alanine Aminotransferase 25 U/L (ALT/SGPT) Alkaline Phosphatase 143 U/L Total Protein 6.3 GM/DL Albumin 1.8 GM/DL Microbiology Date/Time Procedure Status Source Growth 01/29/17 18:00 Urine Culture - Final Complete Urine Catheterized Urine NO GROWTH IN 48 HOURS. 01/30/17 14:42 Gram Stain - Final Resulted Fluid Synovial Fluid 01/30/17 14:42 Body Fluid Culture - Preliminary Resulted Fluid Synovial Fluid NO GROWTH IN 48 HOURS. 01/31/17 08:31 Gram Stain - Final Resulted Wound Knee 01/31/17 08:31 Wound Culture - Preliminary Resulted Wound Knee NO GROWTH IN 24 HOURS. 01/31/17 08:31 Acid Fast Stain Received Wound Knee Pending 01/31/17 08:31 Mycobacterial Culture Received Wound Knee Pending 01/31/17 08:31 Fungal Smear - Final Resulted Wound Knee NO FUNGAL ELEMENTS SEEN. 01/31/17 08:31 Fungal Culture Resulted Wound Knee Pending 01/31/17 08:31 Gram Stain - Final Resulted Wound Knee 01/31/17 08:31 Wound Culture - Preliminary Resulted Wound Knee NO GROWTH IN 24 HOURS. 01/31/17 08:31 Acid Fast Stain Received Wound Knee Pending 01/31/17 08:31 Mycobacterial Culture Received Wound Knee Pending 01/31/17 08:31 Fungal Smear - Final Resulted Wound Knee NO FUNGAL ELEMENTS SEEN. 01/31/17 08:31 Fungal Culture Resulted Wound Knee Pending Imaging Last Impressions Chest X-Ray 01/29/17 1332 Signed Impressions: Service Date/Time: January 13:36 - CONCLUSION: Small left effusion. Hector Soliman Jr., MD Physical Exam GENERAL: Opens eyes when stimulated, not in resp distress SKIN: Warm and dry, no generalized rash HEENT: [place] conjunctivae. No scleral icterus. No injection or drainage. Moist oral mucosa. Airway patent. NECK: Trachea midline. No JVD or lymphadenopathy. Supple, nontender, no meningeal signs. CARDIOVASCULAR: Regular rate and rhythm without murmurs, gallops, or rubs. RESPIRATORY: Clear to auscultation. Breath sounds equal bilaterally. No wheezes , rales, or rhonchi. Decreased BS at bases. GASTROINTESTINAL: Abdomen soft, nondistended. Mild tenderness in RUQ, GB tube in place, has dark green fluid. Bowel sounds present and normoactive. No organomegaly. No guarding. No rebound MUSCULOSKELETAL: Extremities without clubbing, cyanosis. No calf tenderness. Negative Homans sign bilaterally. RLE: Has improving patches of erythema on anterior leg, and ankle, with no swelling now of his L ankle. LLE: has dressing in place, hemovac drain in place, with bloody fluid. NEUROLOGICAL: Non-focal LINE: PIV with no evidence of infection Assessment & Plan Remarks IMPRESSION New sepsis, with fever and chills, and encephalopathy - better - source? L knee - swollen and tender, though not red, fluid looks septic, crystals negative RLE ?cellulitis, ?inflammatory arthritis R ankle - better Low grade temps Episode of Escherichia coli sepsis due to acute cholecystitis - Better has a tube cholecystostomy in place, LFTs are better Multiple antibiotic allergies, has tolerated quinolones, Azactam, Tygacil RECOMMENDATION Follow C/S Monitor temps Monitor progress Continue colchicine for inflammatory arthritis Continue Azactam and Zyvox Vanessa Srinivasan MD Feb 01, 2017 13:43
[2017-02-01 16:22] VITALS: BP 143/67; PULSE 53; RESP 19; TEMP 98.3; O2SAT 94
[2017-02-01 20:00] VITALS: BP 164/88; PULSE 57; RESP 20; TEMP 98.6; O2SAT 97
[2017-02-01] MEDS: LISINOPRIL 20 MG TAB PO SCH (21:25)
[2017-02-01] MEDS: DILTIAZEM-CD 240 MG CAP ER PO SCH (21:26)
[2017-02-01] MEDS: DONEPEZIL HCL 5 MG TAB PO SCH (21:26)
[2017-02-01] MEDS: LATANOPROST 0.005% OPHT SOLN 2.5 ML BTL EACH EYE SCH (21:31)
[2017-02-02] VITALS (8 sets, daily range): BP systolic 119–178; BP diastolic 63–80; PULSE 51–76; RESP 18–20; TEMP 97.6–99.2; O2SAT 93–97
[2017-02-02] MEDS: ACETAMINOPHEN/HYDROcodone 325 MG/5 MG TAB PO PRN ×5 (01:42→21:44)
[2017-02-02] MEDS: LINEZOLID 600 MG PREMIX 300 ML IV SCH ×2 (01:43→14:59)
[2017-02-02] MEDS: CHLORHEXIDINE GLUCONATE 2 % 1 PACK (2 CLOTHS)(taper/protocol) TOP SCH (04:00)
[2017-02-02] MEDS: AZTREONAM INJ 2,000 MG in SODIUM CHLORIDE 0.9% INJ 100 ML IV SCH ×3 (05:50→21:50)
[2017-02-02] MEDS: hydrALAZINE HCL 25 MG TAB PO SCH ×3 (05:51→21:43)
[2017-02-02] MEDS: GABAPENTIN 400 MG CAP PO SCH ×3 (05:51→21:43)
[2017-02-02] MEDS: CLOTRIMAZOLE 1% CREAM 15 GM TOPICAL SCH ×3 (05:52→21:50)
[2017-02-02 06:25] LABS: MRSA PCR NEGATIVE (NEGATIVE); STAPH AUREUS PCR NEGATIVE (NEGATIVE)
[2017-02-02 06:58] LABS: AUTOMATED NEUTROPHIL # 4.7 TH/MM3 (1.8-7.7); BASOPHIL # 0.1 TH/MM3 (0-0.2); EOSINOPHIL # 0.3 TH/MM3 (0-0.4); EOSINOPHIL % 3.7 % (0.0-4.0); HEMATOCRIT 25.8 % (39.0-51.0); HEMO FLAGS DIFF FINAL; LYMPH % 16.7 % (9.0-44.0); LYMPHOCYTE # 1.2 TH/MM3 (1.0-4.8); MEAN CELL VOLUME 79.1 FL (80.0-100.0); MEAN CORPUSCULAR HGB CONC 31.6 % (32.0-36.0); NEUT % 64.6 % (16.0-70.0); PLATELET COUNT 372 TH/MM3 (150-450); RED BLOOD COUNT 3.26 MIL/MM3 (4.50-5.90); RED CELL DISTRIBUTION WIDTH 18.5 % (11.6-17.2); WHITE BLOOD COUNT 7.2 TH/MM3 (4.0-11.0)
[2017-02-02 06:59] LABS: ALT (GPT) 41 U/L (12-78); ANION GAP 11 MEQ/L (5-15); AST (GOT) 34 U/L (15-37); BICARBONATE 22.3 MEQ/L (21.0-32.0); BLOOD UREA NITROGEN 20 MG/DL (7-18); CHLORIDE 109 MEQ/L (98-107); GLOMERULAR FILTRATION RATE 92 ML/MIN (>89); POTASSIUM 3.7 MEQ/L (3.5-5.1); SODIUM (NA) 142 MEQ/L (136-145)
[2017-02-02 07:01] LABS: ALKALINE PHOSPHATASE 188 U/L (45-117); TOTAL BILIRUBIN ADULT 0.3 MG/DL (0.2-1.0)
[2017-02-02] MEDS: DEXT 5%-NACL 0.45% 1000 ML INJ 1,000 ML IV SCH (09:00)
[2017-02-02] MEDS: PANTOPRAZOLE SOD 40 MG DELAYED RELEASE TAB PO SCH (09:33)
[2017-02-02] MEDS: MULTIVITAMINS/MINERALS THERAPEUTIC TAB PO SCH (09:34)
[2017-02-02] MEDS: SODIUM CHLORIDE 0.9% FLUSH 5 ML FLUSH IVF SCH ×2 (09:34→21:45)
[2017-02-02] MEDS: FERROUS SULFATE 325 MG (65 MG ELEMENTAL IRON) TAB PO SCH ×2 (09:34→21:43)
[2017-02-02] MEDS: COLCHICINE 0.6 MG TAB PO SCH ×2 (09:34→21:42)
[2017-02-02] MEDS: CARVEDILOL 6.25 MG TAB PO SCH ×3 (09:34→21:43)
[2017-02-02] MEDS: ASPIRIN 81 MG CHEW TAB CHEW SCH (09:34)
[2017-02-02] MEDS: LACTOBACILLUS ACIDOPHILUS TAB PO SCH ×2 (09:34→21:44)
[2017-02-02] MEDS: ENOXAPARIN SODIUM 40 MG/0.4 ML SYRINGE SQ SCH (09:35)
[2017-02-02] MEDS: cloNIDine HCL 0.1 MG TAB PO PRN ×2 (09:49→18:17)
--- NOTE | 2017-02-02 09:50 | HHI.FPPN ---
Subjective Remarks Patient seen this morning. No acute events overnight. He did have more elevated blood pressures overnight (SBP up to the 170s). Pulse is in the 50s. Patient denies ST, CP, or vision changes. He states LE pain improving. He has no complaints. States he "just wants to know what is going on with him" and "if this is the same infection from before". Per nursing, no events overnight. Denies any F/C or SOB. (Chandana Akins MD R3) Objective Vitals Vital Signs Date Time Temp Pulse Resp B/P Pulse Ox O2 Delivery O2 Flow Rate FiO2 02/02/17 04:00 98.3 51 18 167/72 93 02/02/17 00:00 99.2 67 18 175/80 94 02/01/17 20:00 98.6 57 20 164/88 97 02/01/17 16:22 98.3 53 19 143/67 94 02/01/17 12:14 98.4 50 19 144/67 99 I/O 02/01/17 02/01/17 02/01/17 02/02/17 02/02/17 02/02/17 07:00 15:00 23:00 07:00 15:00 23:00 Intake Total 0 ml 1260 ml 240 ml 120 ml Output Total 150 ml 300 ml 785 ml 400 ml Balance -150 ml 960 ml -545 ml -280 ml Intake Oral 0 ml 360 ml 240 ml 120 ml IV Total 900 ml Output Urine Total 150 ml 300 ml 350 ml 400 ml Drainage Total 435 ml # Bowel Movements 0 0 1 1 (Chandana Akins MD R3) Result Diagram: 02/02/17 0505 02/02/17 0505 Objective Remarks GENERAL: Elderly male sitting up in bed. In NAD. SKIN: No lesions or ecchymoses. Outlined area of prior erythema in RLE resolved. CARDIOVASCULAR: Regular rate and rhythm without murmurs. Normal peripheral perfusion. RESPIRATORY: Clear to auscultation. Breath sounds equal bilaterally. No wheezes , rales, or rhonchi. GASTROINTESTINAL: Abdomen soft, NT, ND. No hepato-splenomegaly, or palpable masses. No guarding. Cholecystotomy tube in place and draining yellowish fluid. Wound site c/d/i. MUSCULOSKELETAL: Extremities without clubbing, cyanosis, or edema. No joint tenderness, effusion, or edema noted. L knee dressed; drain from knee with sanguinous fluid. NEUROLOGICAL: Awake and alert. Cranial nerves grossly intact. Motor and sensory function grossly within normal limits. Patient responded to questions; he appeared oriented. (Chandana Akins MD R3) A/P Assessment and Plan 71 year old male with history of recent hospitalization for gastritis and E. coli bacteremia 2/2 acute cholecystitis presenting with AMS and sepsis. Now with improving mental status with broad spectrum IV antibiotics and IV fluids. Synovial fluid suggestive of septic arthritis; washout/drain performed 01/31. Discharge Planning Dispo is back to SNF. Estimated timeframe of at least 3-5 days until he is ready for SNF. Will consult CM for discharge planning and have PT work with patient as mental status improves. Will discuss with Dr. Mosley. (Chandana Akins MD R3) Attending Attestation Pt. examined and case discussed with resident physician I have read the above note and agree with the assessment/plan as discussed with me I was involved in all medical decision making for this patient Oumar Mosley MD (Oumar Mosley MD) Problem List: (1) Septic arthritis Status: Acute Plan: High suspicion for septic arthritis with 29,000 WBCs and 86 polys from synovial fluid aspiration. -Ortho consulted: Arthroscopy with irrigation/drain performed by Dr. Evangelista 01/31 -PT; can weight bear as tolerated. Patient refused PT yesterday. Education regarding importance of early ambulation today. -Will plan to remove drain in a few days -Initiated Lovenox -Continue IV antibiotics per ID -ID consulted -Continue IV Zyvox, Azactam per ID (01/29-). Below cultures may be negative 2/ 2 recent abx use, however, synovial fluid labs suspicious for septic arthritis. Likely needs at least 14 days parenteral therapy followed by additional 14 days PO abx. Defer to ID. -Synovial cultures (01/30, 01/31) NGTD. Monitor. (2) Sepsis Status: Resolved Plan: Suspected septic arthritis. Met sepsis criteria on admission with fever, leukocytosis, and suspected source. -cont IV abx, as above -blood cx 01/29 NGTD -urine cx (01/29) negative -synovial cx, as above History: -Lactic acid normal at 0.8 -CT abdomen negative for acute process -Chest XR with small left effusion -2D echo shows normal EF without vegetation -Left knee painful, but without erythema or obvious effusion -ESR >140, CRP 30 (3) Altered mental status Status: Resolved Plan: Resolved. Likely related to sepsis. (4) Cellulitis of leg, right Status: Acute Plan: ? cellulitis on admission, now resolved. ? 2/2 recent bacteremia. -antibiotics, as above. -bilateral doppler 01/27 negative. Doubt DVT, given high sensitivity of this exam. (5) Hypertension Status: Chronic Plan: SBP up to the 170s. -cont home coreg, hydralazine, lisinopril, and cardizem -monitor. Consider JENNIFER clonidine v. spironolactone, if inadequately controlled with above. -PRN clonidine (6) Gastritis Status: Resolved Plan: Chronic issue. Hemoglobin stable this AM. Hemoccult ordered. Check occult blood if diarrhea or emesis. -Continue iron supplementation -cont protonix -monitor daily CBC (7) Cholecystostomy care Status: Acute Plan: -wound site c/d/i. 400cc output over past 24 hours of yellowish fluid. -CT ab shows no acute process (8) Dementia Status: Chronic Plan: -cont aricept (9) Major depression Status: Acute Plan: -hold celexa, given increased risk of serotonin syndrome with zyvox (10) Dietary counseling and surveillance Status: Acute Plan: -diet: passed bedside swallow eval. Regular, thin liquids per speech -IVF: MIVF DVT ppx: Lovenox initiated per ortho. SCDs. -Will monitor closely due to recent GI bleed (Chandana Akins MD R3) Problem Qualifiers (1) Sepsis: Qualified Code: A41.9 - Sepsis, due to unspecified organism (2) Altered mental status: Qualified Code: R41.0 - Delirium (3) Hypertension: Qualified Code: I10 - Essential hypertension (4) Gastritis: Qualified Code: K29.50 - Chronic gastritis without bleeding, unspecified gastritis type (5) Dementia: (6) Major depression: Qualified Code: F33.9 - Recurrent major depressive disorder, remission status unspecified Chandana Akins MD R3 Feb 02, 2017 09:50 Oumar Mosley MD Feb 02, 2017 18:08
--- NOTE | 2017-02-02 12:28 | PD.ORT.PN ---
Subjective Post Op Day #: 2 Subjective Remarks Patient resting in bed eating lunch. Patient c/o moderate left knee pain. Patient refused ambulation earlier with PT per family. Objective Vitals Vital Signs Date Time Temp Pulse Resp B/P Pulse Ox O2 Delivery O2 Flow Rate FiO2 02/02/17 08:00 98.1 52 20 164/70 96 02/02/17 04:00 98.3 51 18 167/72 93 02/02/17 00:00 99.2 67 18 175/80 94 02/01/17 20:00 98.6 57 20 164/88 97 02/01/17 16:22 98.3 53 19 143/67 94 I/O 02/01/17 02/01/17 02/01/17 02/02/17 02/02/17 02/02/17 07:00 15:00 23:00 07:00 15:00 23:00 Intake Total 0 ml 1260 ml 240 ml 120 ml Output Total 150 ml 300 ml 785 ml 400 ml Balance -150 ml 960 ml -545 ml -280 ml Intake Oral 0 ml 360 ml 240 ml 120 ml IV Total 900 ml Output Urine Total 150 ml 300 ml 350 ml 400 ml Drainage Total 435 ml # Bowel Movements 0 0 1 1 Result Diagram: 02/02/17 0505 02/02/17 0505 Procedures Left knee Arthrotomy Objective Remarks Left knee dressings changed with no drainage. Incision is well approximated with surgical clips intact. No redness. Drain in place (15 cc output) +NVI no calf tenderness Moderate pain and tenderness to palpation of the medial and lateral joint line No obvious effusion Assessment & Plan Assessment and Plan POD #2 s/p L knee arthrotomy I&D WBAT LLE Maintain drain to L knee. Possible d/c tomorrow if decreased output. IV antibiotics per ID, await cultures from knee (current cultures are negative) Lovenox for DVT prophylaxis Moody Ortega Feb 02, 2017 12:28
[2017-02-02] MEDS ORDERED: IOHEXOL 350 MG/ML 50 ML BTL (for RAD DIAG) ONE (16:23)
--- NOTE | 2017-02-02 16:56 | PD.RAD ---
Post Procedure Progress Note Pre Procedure Diagnosis: (1) Acute cholecystitis due to biliary calculus Post Procedure Diagnosis: (1) Acute cholecystitis Procedure Date: Feb 02, 2017 Supervising Radiologist: Jose Segura Proceduralist/Assist: RT Rocío(R)(CV) Plan of Activity Patient to Unit: Nursing Unit Patient Condition: Good See PACS Report for procedural detail/treatment Drainage Procedure Procedure 1 Imaging Guidance: Fluoroscopy Side: Right Procedure Type: Cholecystostomy Procedure: Evaluation Findings: cystic duct patent Additional Detail: tube removed Jose Segura MD Feb 02, 2017 16:56
--- NOTE | 2017-02-02 17:04 | RADRPT ---
EXAM DATE/TIME: 02/02/2017 15:49 [facility] COMPARISON: CHOLANGIOGRAM THRU EXISTING CATHETER, January 19, 2017, 14:11. INDICATIONS : Patient has history of acute cholecystitis. MEDICAL HISTORY : DM,glaucoma,hypertension,COPD,mild dementia,vertigo,hearing loss,TIA,benign meningeal tumor frontal l obe,spinal stenosis,bilateral lower extremity neuropathy,shigles SURGICAL HISTORY : Appendectomy 1958,back surgery 1973,1974, left elbow surgery 1975,kidney stone removal 1987, bladder implant 2006 ENCOUNTER: Subsequent ACUITY: 3 weeks PAIN SCORE: 0/10 FLUORO TIME: 0.8 IMAGE SERIES: 1 CONTRAST: 6 cc Omnipaque (iohexol) 350 PROCEDURE : 1. cholecystostomy tube evaluation The risks, benefits and alternatives to the procedure were explained and verbal and written consent w as obtained. The site was prepped in sterile fashion. Full sterile technique was used, including ca p, mask, sterile gloves and gown and a large sterile sheet. Hand hygiene and 2% chlorhexidine and/or betadine/alcohol prep was utilized per protocol for cutaneous antisepsis. The skin and subcutaneous tissues were infiltrated with local anesthetic solution. The cholecystostomy tube was injected. The gallbladder is completely contracted around the tube. Ther e is immediate flow of injected contrast through the patent cystic duct into the common duct and down into the small bowel. There is also some spill of injected contrast into the pericholecystic tissues , however initial and preferential drainage appeared to be through the cystic duct. CONCLUSION: Patent cystic duct. The patient's cholecystostomy tube was removed. Jose Segura MD on February 02, 2017 at 16:56 Board Certified Radiologist. This report was verified electronically.
[2017-02-02] MEDS: DONEPEZIL HCL 5 MG TAB PO SCH (21:43)
[2017-02-02] MEDS: DILTIAZEM-CD 240 MG CAP ER PO SCH (21:43)
[2017-02-02] MEDS: LISINOPRIL 20 MG TAB PO SCH (21:44)
[2017-02-02] MEDS: LATANOPROST 0.005% OPHT SOLN 2.5 ML BTL EACH EYE SCH (21:45)
[2017-02-03] VITALS (9 sets, daily range): BP systolic 160–190; BP diastolic 72–85; PULSE 52–65; RESP 16–20; TEMP 96.7–98.9; O2SAT 95–98
[2017-02-03] MEDS: LINEZOLID 600 MG PREMIX 300 ML IV SCH ×2 (02:21→16:05)
[2017-02-03] MEDS: ACETAMINOPHEN/HYDROcodone 325 MG/5 MG TAB PO PRN ×5 (02:22→22:26)
[2017-02-03] MEDS: CHLORHEXIDINE GLUCONATE 2 % 1 PACK (2 CLOTHS)(taper/protocol) TOP SCH (04:00)
[2017-02-03] MEDS: CLOTRIMAZOLE 1% CREAM 15 GM TOPICAL SCH ×3 (06:00→21:07)
[2017-02-03] MEDS: GABAPENTIN 400 MG CAP PO SCH ×3 (06:22→21:00)
[2017-02-03] MEDS: hydrALAZINE HCL 25 MG TAB PO SCH ×3 (06:22→21:01)
[2017-02-03] MEDS: AZTREONAM INJ 2,000 MG in SODIUM CHLORIDE 0.9% INJ 100 ML IV SCH ×3 (06:23→22:31)
[2017-02-03] MEDS: cloNIDine HCL 0.1 MG TAB PO PRN ×2 (06:23→17:42)
[2017-02-03 06:36] LABS: AUTOMATED NEUTROPHIL # 3.9 TH/MM3 (1.8-7.7); BASOPHIL # 0.1 TH/MM3 (0-0.2); BASOPHIL % 0.9 % (0.0-2.0); EOSINOPHIL # 0.3 TH/MM3 (0-0.4); EOSINOPHIL % 4.6 % (0.0-4.0); HEMO FLAGS DIFF FINAL; LYMPH % 19.8 % (9.0-44.0); LYMPHOCYTE # 1.3 TH/MM3 (1.0-4.8); MEAN CELL VOLUME 78.1 FL (80.0-100.0); MEAN CORPUSCULAR HEMOGLOBIN 25.1 PG (27.0-34.0); MEAN CORPUSCULAR HGB CONC 32.1 % (32.0-36.0); NEUT % 60.7 % (16.0-70.0); PLATELET COUNT 437 TH/MM3 (150-450); RED CELL DISTRIBUTION WIDTH 18.3 % (11.6-17.2); WHITE BLOOD COUNT 6.4 TH/MM3 (4.0-11.0)
[2017-02-03 07:07] LABS: BICARBONATE 23.7 MEQ/L (21.0-32.0); POTASSIUM 3.4 MEQ/L (3.5-5.1)
[2017-02-03] MEDS: ENOXAPARIN SODIUM 40 MG/0.4 ML SYRINGE SQ SCH (08:00)
[2017-02-03] MEDS: CARVEDILOL 6.25 MG TAB PO SCH ×2 (08:02→21:01)
[2017-02-03] MEDS: FERROUS SULFATE 325 MG (65 MG ELEMENTAL IRON) TAB PO SCH ×2 (08:16→20:59)
[2017-02-03] MEDS: ASPIRIN 81 MG CHEW TAB CHEW SCH (08:16)
[2017-02-03] MEDS: PANTOPRAZOLE SOD 40 MG DELAYED RELEASE TAB PO SCH (08:16)
[2017-02-03] MEDS: LACTOBACILLUS ACIDOPHILUS TAB PO SCH ×2 (08:16→21:00)
[2017-02-03] MEDS: SODIUM CHLORIDE 0.9% FLUSH 5 ML FLUSH IVF SCH ×2 (08:16→21:27)
[2017-02-03] MEDS: MULTIVITAMINS/MINERALS THERAPEUTIC TAB PO SCH (08:16)
[2017-02-03] MEDS: COLCHICINE 0.6 MG TAB PO SCH ×2 (08:16→21:26)
[2017-02-03] MEDS: DEXT 5%-NACL 0.45% 1000 ML INJ 1,000 ML IV SCH (08:17)
--- NOTE | 2017-02-03 09:45 | HHI.FPPN ---
Subjective Remarks Patient seen this morning. No acute events overnight. SBP up to the 170s overnight. Other vitals essentially WNL. Mr. Garcia reports LE pain improving. Able to flex knee to 90 degrees yesterday with PT. He says he wants to try walking today. Cholecystostomy tube removed yesterday. Cholangiogram showed patent cystic duct. Patient denies any ab pain or N/V. Denies any SOB or CP. No F/C. (Chandana Akins MD R3) Objective Vitals Vital Signs Date Time Temp Pulse Resp B/P Pulse Ox O2 Delivery O2 Flow Rate FiO2 02/03/17 07:23 14 02/03/17 04:00 98.0 52 18 176/77 95 02/03/17 00:24 98.9 63 18 160/72 95 02/02/17 20:56 98.1 60 20 174/77 96 02/02/17 16:26 76 02/02/17 16:00 97.6 59 20 178/80 97 02/02/17 12:00 98.0 54 20 119/63 95 02/02/17 11:22 95 I/O 02/02/17 02/02/17 02/02/17 02/03/17 02/03/17 02/03/17 07:00 15:00 23:00 07:00 15:00 23:00 Intake Total 120 ml 480 ml 380 ml Output Total 760 ml 615 ml 15 ml 500 ml Balance -640 ml -135 ml 365 ml -500 ml Intake Oral 120 ml 480 ml IV Total 380 ml Output Urine Total 400 ml 250 ml 500 ml Drainage Total 360 ml 365 ml 15 ml # Bowel Movements 1 (Chandana Akins MD R3) Result Diagram: 02/03/17 0547 02/03/17 0547 Objective Remarks GENERAL: Elderly male sitting up in bed. In NAD. SKIN: No lesions or ecchymoses. CARDIOVASCULAR: Regular rate and rhythm without murmurs. Normal peripheral perfusion. RESPIRATORY: Clear to auscultation. Breath sounds equal bilaterally. No wheezes , rales, or rhonchi. GASTROINTESTINAL: Abdomen soft, NT, ND. No hepato-splenomegaly, or palpable masses. No guarding. Cholecystotomy tube out. Wound site c/d/i. MUSCULOSKELETAL: Extremities without clubbing, cyanosis, or edema. No joint tenderness, effusion, or edema noted. L knee dressed; drain from knee with sanguinous fluid. flexes both knees to 90 degrees with moderate pain. NEUROLOGICAL: Awake and alert. Cranial nerves grossly intact. Motor and sensory function grossly within normal limits. Patient responded to questions; he appeared oriented. (Chandana Akins MD R3) A/P Assessment and Plan 71 year old male with history of recent hospitalization for gastritis and E. coli bacteremia 2/2 acute cholecystitis presenting with AMS and sepsis. Now with mental status approaching baseline with broad spectrum IV antibiotics and IV fluids. Synovial fluid suggestive of septic arthritis; washout/drain performed 01/31. Discharge Planning Dispo is back to SNF in the next 3-4 days. Will consult CM for discharge planning and have PT work with patient as mental status improves. Will discuss with Dr. Mosley. (Chandana Akins MD R3) Attending Attestation Patient examined and case discussed with resident physicians I have read the above note and agree with the assessment/plan is discussed with me I was involved in all medical decision making for this patient Oumar Mosley M.D. (Oumar Mosley MD) Problem List: (1) Septic arthritis Status: Acute Plan: High suspicion for septic arthritis with 29,000 WBCs and 86 polys from synovial fluid aspiration. -Ortho consulted: Arthroscopy with irrigation/drain performed by Dr. Evangelista 01/31 -PT; can weight bear as tolerated. Did LE exercises yesterday. Patient wants to try walking today. -Will plan to remove left knee drain tomorrow -Lovenox -ID consulted -Continue IV Zyvox, Azactam per ID (01/29-). Below cultures may be negative 2/ 2 recent abx use, however, synovial fluid labs suspicious for septic arthritis. Likely needs at least 14 days parenteral therapy followed by additional 14 days PO abx. Defer to ID. -Synovial cultures (01/30, 01/31) NGTD. Monitor. (2) Sepsis Status: Resolved Plan: Resolved. Suspected septic arthritis. Met sepsis criteria on admission with fever, leukocytosis, and suspected source. -cont IV abx, as above -blood cx 01/29 NGTD -urine cx (01/29) negative -synovial cx, as above History: -Lactic acid normal at 0.8 -CT abdomen negative for acute process -Chest XR with small left effusion -2D echo shows normal EF without vegetation -Left knee painful, but without erythema or obvious effusion -ESR >140, CRP 30 (3) Hypertension Status: Chronic Plan: SBP up to the 170s. -cont home coreg, hydralazine, lisinopril, and cardizem -add spironolactone 25 mg daily -PRN clonidine (4) Gastritis Status: Resolved Plan: Chronic issue. Hemoglobin stable this AM. Hemoccult ordered. Check occult blood if diarrhea or emesis. -Continue iron supplementation -cont protonix -monitor daily CBC (5) Hypokalemia Status: Acute Plan: Potassium low at 3.4 this AM. -10 MeQ KCL PO x1 this AM (caution with repletion, given additional of potassium -sparing diuretic today) (6) Cholecystostomy care Status: Acute Plan: Cholecytostomy tube out. Wound site c/d/i. -CT ab shows no acute process (7) Dementia Status: Chronic Plan: -cont aricept (8) Major depression Status: Chronic Plan: -hold celexa, given increased risk of serotonin syndrome with zyvox (9) Dietary counseling and surveillance Status: Acute Plan: -diet: passed bedside swallow eval. Regular, thin liquids per speech -IVF: MIVF DVT ppx: Lovenox initiated per ortho. SCDs. -Will monitor closely due to recent GI bleed (Chandana Akins MD R3) Problem Qualifiers (1) Sepsis: Qualified Code: A41.9 - Sepsis, due to unspecified organism (2) Hypertension: Qualified Code: I10 - Essential hypertension (3) Gastritis: Qualified Code: K29.50 - Chronic gastritis without bleeding, unspecified gastritis type (4) Dementia: (5) Major depression: Qualified Code: F33.9 - Recurrent major depressive disorder, remission status unspecified Chandana Akins MD R3 Feb 03, 2017 09:45 Oumar Mosley MD Feb 03, 2017 09:53
[2017-02-03] MEDS ORDERED: POTASSIUM CHLORIDE 10 MEQ CAP PO ONE (10:30)
--- NOTE | 2017-02-03 10:54 | HHI.IDPN ---
Subjective Subjective Remarks Notes reviewed Temps ok Still with pain L knee Hemovac still in place C/S from OR negative so far GB tube removed - has patent cystic duct Antibiotics Azactam Zyvox Past Medical History Reviewed Allergies: Coded Allergies: Bactrim (Verified Allergy, Severe, Anaphylaxis, 01/10/17) Ceftin (Verified Allergy, Severe, Anaphylaxis, 01/10/17) Flagyl (Verified Allergy, Severe, Fever, colitis, 01/10/17) Penicillin (Verified Allergy, Severe, Anaphylaxis, 01/10/17) Sulfa (Verified Allergy, Severe, Anaphylaxis, 01/10/17) MRI PRECAUTION (Verified Adverse Reaction, Severe, BLADDER STIMULATOR, ) BRAIN ONLY ON RECEIVE ONLY COIL, P.O. 01/11/17, DML *MDRO Multi-Drug Resistant Organism (Verified Adverse Reaction, Unknown, MRSA, 01/30/17) MRSA PCR (nares) POSITIVE - 01/11/17 Demerol (Verified Adverse Reaction, Unknown, Psychosis, 01/30/17) Morphine (Verified Adverse Reaction, Unknown, Psychosis, 01/30/17) Percocet (Verified Adverse Reaction, Unknown, Psychosis, 01/30/17) Uncoded Allergies: mycins (Allergy, Severe, Fever, colitis, 12/15/13) surgical tape (Allergy, Severe, 12/15/13) Objective . Vital Signs Date Time Temp Pulse Resp B/P Pulse Ox O2 Delivery O2 Flow Rate FiO2 02/03/17 09:12 98.2 60 18 173/74 97 02/03/17 08:30 97 21 02/03/17 07:23 14 02/03/17 04:00 98.0 52 18 176/77 95 02/03/17 00:24 98.9 63 18 160/72 95 02/02/17 20:56 98.1 60 20 174/77 96 02/02/17 16:26 76 02/02/17 16:00 97.6 59 20 178/80 97 02/02/17 12:00 98.0 54 20 119/63 95 02/02/17 11:22 95 02/02/17 02/02/17 02/03/17 15:00 23:00 07:00 Intake Total 480 ml 380 ml Output Total 615 ml 15 ml 500 ml Balance -135 ml 365 ml -500 ml Intake Oral 480 ml IV Total 380 ml Output Urine Total 250 ml 500 ml Drainage Total 365 ml 15 ml . Laboratory Tests Test 02/02/17 02/03/17 05:05 05:47 White Blood Count 7.2 TH/MM3 6.4 TH/MM3 Red Blood Count 3.26 MIL/MM3 3.20 MIL/MM3 Hemoglobin 8.1 GM/DL 8.0 GM/DL Hematocrit 25.8 % 25.0 % Mean Corpuscular Volume 79.1 FL 78.1 FL Mean Corpuscular Hemoglobin 25.0 PG 25.1 PG Mean Corpuscular Hemoglobin 31.6 % 32.1 % Concent Red Cell Distribution Width 18.5 % 18.3 % Platelet Count 372 TH/MM3 437 TH/MM3 Mean Platelet Volume 8.3 FL 8.2 FL Neutrophils (%) (Auto) 64.6 % 60.7 % Lymphocytes (%) (Auto) 16.7 % 19.8 % Monocytes (%) (Auto) 14.0 % 14.0 % Eosinophils (%) (Auto) 3.7 % 4.6 % Basophils (%) (Auto) 1.0 % 0.9 % Neutrophils # (Auto) 4.7 TH/MM3 3.9 TH/MM3 Lymphocytes # (Auto) 1.2 TH/MM3 1.3 TH/MM3 Monocytes # (Auto) 1.0 TH/MM3 0.9 TH/MM3 Eosinophils # (Auto) 0.3 TH/MM3 0.3 TH/MM3 Basophils # (Auto) 0.1 TH/MM3 0.1 TH/MM3 CBC Comment DIFF FINAL DIFF FINAL Differential Comment Laboratory Tests Test 02/02/17 02/03/17 05:05 05:47 Sodium Level 142 MEQ/L 142 MEQ/L Potassium Level 3.7 MEQ/L 3.4 MEQ/L Chloride Level 109 MEQ/L 110 MEQ/L Carbon Dioxide Level 22.3 MEQ/L 23.7 MEQ/L Anion Gap 11 MEQ/L 8 MEQ/L Blood Urea Nitrogen 20 MG/DL 19 MG/DL Creatinine 0.82 MG/DL 0.69 MG/DL Estimat Glomerular Filtration 92 ML/MIN 113 ML/MIN Rate Random Glucose 95 MG/DL 93 MG/DL Calcium Level 9.3 MG/DL 9.0 MG/DL Total Bilirubin 0.3 MG/DL Aspartate Amino Transf 34 U/L (AST/SGOT) Alanine Aminotransferase 41 U/L (ALT/SGPT) Alkaline Phosphatase 188 U/L Total Protein 6.1 GM/DL Albumin 1.7 GM/DL Imaging Last Impressions Chest X-Ray 01/29/17 1332 Signed Impressions: Service Date/Time: January 13:36 - CONCLUSION: Small left effusion. Hector Soliman Jr., MD Physical Exam GENERAL: Awake and alert, not in resp distress SKIN: Warm and dry, no generalized rash HEENT: [place] conjunctivae. No scleral icterus. No injection or drainage. Moist oral mucosa. NECK: Supple, nontender, no meningeal signs. CARDIOVASCULAR: Regular rate and rhythm without murmurs, gallops, or rubs. RESPIRATORY: Clear to auscultation. Breath sounds equal bilaterally. No wheezes , rales, or rhonchi. Decreased BS at bases. GASTROINTESTINAL: Abdomen soft, nondistended. Not tender. Bowel sounds present and normoactive. MUSCULOSKELETAL: Extremities without clubbing, cyanosis. No calf tenderness. Negative Homans sign bilaterally. RLE: redness resolved. LLE: Knee swollen with mild redness, still with limited ROM, hemovac in place, leaking blood around drain site NEUROLOGICAL: Non-focal LINE: PIV with no evidence of infection Assessment & Plan Remarks IMPRESSION New sepsis, with fever and chills, and encephalopathy - better - source? L knee - swollen and tender, though not red, fluid looks septic, crystals negative - C/S negative due to prior Abx before OR RLE ?cellulitis, ?inflammatory arthritis R ankle - better Episode of Escherichia coli sepsis due to acute cholecystitis - Better has a tube cholecystostomy in place, LFTs are better Multiple antibiotic allergies, has tolerated quinolones, Azactam, Tygacil RECOMMENDATION Follow C/S Monitor temps Monitor progress Continue colchicine for inflammatory arthritis Continue Azactam and Zyvox Since C/S negative, will need to use both Abx to complete Rx for septic knee - 3 weeks from date of OR Vanessa Srinivasan MD Feb 03, 2017 10:54
[2017-02-03] MEDS ORDERED: SPIRONOLACTONE 25 MG TAB PO ONE (11:00)
--- NOTE | 2017-02-03 16:14 | PD.ORT.PN ---
Subjective Subjective Remarks Some pain in the knee Objective Vitals Vital Signs Date Time Temp Pulse Resp B/P Pulse Ox O2 Delivery O2 Flow Rate FiO2 02/03/17 12:49 16 02/03/17 12:16 97.8 65 16 190/85 96 02/03/17 09:12 98.2 60 18 173/74 97 02/03/17 08:30 97 21 02/03/17 04:00 98.0 52 18 176/77 95 02/03/17 00:24 98.9 63 18 160/72 95 02/02/17 20:56 98.1 60 20 174/77 96 02/02/17 16:26 76 I/O 02/02/17 02/02/17 02/02/17 02/03/17 02/03/17 02/03/17 07:00 15:00 23:00 07:00 15:00 23:00 Intake Total 120 ml 480 ml 380 ml Output Total 760 ml 615 ml 15 ml 500 ml 25 ml Balance -640 ml -135 ml 365 ml -500 ml -25 ml Intake Oral 120 ml 480 ml IV Total 380 ml Output Urine Total 400 ml 250 ml 500 ml Drainage Total 360 ml 365 ml 15 ml 25 ml # Bowel Movements 1 Result Diagram: 02/03/17 0547 02/03/17 0547 Procedures Left knee Arthrotomy Objective Remarks Left knee dressings changed. Incision is well approximated with surgical clips intact. No redness. Drain in place, moderate effusion (bloody) +NVI no calf tenderness Moderate pain and tenderness to palpation of the medial and lateral joint line Assessment & Plan Assessment and Plan POD #3 s/p L knee arthrotomy I&D WBAT LLE D/c drain. I discussed this with the nurse and gave specific instructions IV antibiotics per ID, all culx are no growth to date Lovenox for DVT prophylaxis we will sign off for now. F/u in office in 1-2 weeks Lit Evangelista MD Feb 03, 2017 16:14
[2017-02-03] MEDS: MAGNESIUM HYDROXIDE SUSP 30 ML CUP PO PRN (17:42)
[2017-02-03] MEDS: DONEPEZIL HCL 5 MG TAB PO SCH (21:00)
[2017-02-03] MEDS: DILTIAZEM-CD 240 MG CAP ER PO SCH (21:01)
[2017-02-03] MEDS: LATANOPROST 0.005% OPHT SOLN 2.5 ML BTL EACH EYE SCH (21:07)
[2017-02-03] MEDS: LISINOPRIL 20 MG TAB PO SCH (21:26)
[2017-02-03] MEDS: ZOLPIDEM TARTRATE 5 MG TAB PO PRN (22:25)
[2017-02-04] MEDS: LINEZOLID 600 MG PREMIX 300 ML IV SCH ×2 (02:30→12:44)
[2017-02-04] MEDS: ACETAMINOPHEN/HYDROcodone 325 MG/5 MG TAB PO PRN ×5 (02:30→21:50)
[2017-02-04 04:00] VITALS: BP 173/80; PULSE 54; RESP 18; TEMP 97.7; O2SAT 96
[2017-02-04] MEDS: GABAPENTIN 400 MG CAP PO SCH ×3 (04:51→21:37)
[2017-02-04] MEDS: hydrALAZINE HCL 25 MG TAB PO SCH ×3 (04:51→21:38)
[2017-02-04] MEDS: cloNIDine HCL 0.1 MG TAB PO PRN ×2 (04:51→17:41)
[2017-02-04] MEDS: CLOTRIMAZOLE 1% CREAM 15 GM TOPICAL SCH ×3 (04:52→21:39)
[2017-02-04] MEDS: AZTREONAM INJ 2,000 MG in SODIUM CHLORIDE 0.9% INJ 100 ML IV SCH ×2 (06:20→15:45)
[2017-02-04 07:16] LABS: BICARBONATE 26.6 MEQ/L (21.0-32.0); POTASSIUM 3.4 MEQ/L (3.5-5.1)
[2017-02-04 08:00] VITALS: BP 162/90; PULSE 56; RESP 20; TEMP 97.3; O2SAT 97
[2017-02-04] MEDS: ENOXAPARIN SODIUM 40 MG/0.4 ML SYRINGE SQ SCH (08:07)
[2017-02-04] MEDS: MULTIVITAMINS/MINERALS THERAPEUTIC TAB PO SCH (08:07)
[2017-02-04] MEDS: FERROUS SULFATE 325 MG (65 MG ELEMENTAL IRON) TAB PO SCH ×2 (08:07→21:38)
[2017-02-04] MEDS: LACTOBACILLUS ACIDOPHILUS TAB PO SCH ×2 (08:07→21:37)
[2017-02-04] MEDS: PANTOPRAZOLE SOD 40 MG DELAYED RELEASE TAB PO SCH (08:07)
[2017-02-04] MEDS: ASPIRIN 81 MG CHEW TAB CHEW SCH (08:07)
[2017-02-04] MEDS: DEXT 5%-NACL 0.45% 1000 ML INJ 1,000 ML IV SCH (08:08)
[2017-02-04] MEDS: CARVEDILOL 6.25 MG TAB PO SCH ×2 (08:08→21:38)
[2017-02-04] MEDS: COLCHICINE 0.6 MG TAB PO SCH ×2 (08:08→21:37)
[2017-02-04] MEDS: SODIUM CHLORIDE 0.9% FLUSH 5 ML FLUSH IVF SCH ×2 (08:08→21:39)
[2017-02-04] MEDS: SPIRONOLACTONE 25 MG TAB PO SCH ×3 (10:26→12:44)
[2017-02-04] MEDS: MAGNESIUM HYDROXIDE SUSP 30 ML CUP PO PRN (10:26)
[2017-02-04 10:30] VITALS: O2SAT 95
--- NOTE | 2017-02-04 10:43 | HHI.FPPN ---
Subjective Remarks Patient seen this morning. No acute events overnight. SBP up to the 180s overnight. Patient denies ST or vision changes. His only complaint this AM is of constipation. He had milk of Mg for this yesterday and today without a BM. Last documented BM 02/02. Has some mild abdominal cramping from this. Was able to work more with PT yesterday. Did some mobility training with mod-min assist. States he tolerated well. Regarding dispo, states he prefers home but knows he needs assistance with mobility still. He is afraid his would need to help him with this and is not sure if she would be able to. States he would be okay with return to [facility], but does not want outside SNF. Wants us to call . Denies any F/C or N/V. (Chandana Akins MD R3) Objective Vitals Vital Signs Date Time Temp Pulse Resp B/P Pulse Ox O2 Delivery O2 Flow Rate FiO2 02/04/17 08:00 97.3 56 20 162/90 97 02/04/17 04:00 97.7 54 18 173/80 96 02/03/17 23:57 98.5 58 18 178/81 95 02/03/17 19:58 96.7 60 20 182/84 97 02/03/17 17:14 98.2 60 16 189/80 98 02/03/17 15:10 173/82 02/03/17 12:49 16 02/03/17 12:16 97.8 65 16 190/85 96 I/O 02/03/17 02/03/17 02/03/17 02/04/17 02/04/17 02/04/17 07:00 15:00 23:00 07:00 15:00 23:00 Intake Total 600 ml 550 ml 610 ml Output Total 500 ml 650 ml 275 ml 500 ml Balance -500 ml -50 ml 275 ml 110 ml Intake Oral 600 ml 240 ml 100 ml IV Total 310 ml 510 ml Output Urine Total 500 ml 650 ml 250 ml 500 ml Drainage Total 25 ml # Bowel Movements 0 0 (Chandana Akins MD R3) Result Diagram: 02/03/17 0547 02/04/17 0516 Objective Remarks GENERAL: Elderly male sitting up in bed. In NAD. SKIN: No lesions or ecchymoses. CARDIOVASCULAR: Regular rate and rhythm without murmurs. Normal peripheral perfusion. RESPIRATORY: Clear to auscultation. Breath sounds equal bilaterally. No wheezes , rales, or rhonchi. GASTROINTESTINAL: Abdomen soft, NT. Mild distension compared to yesterday. No hepato-splenomegaly, or palpable masses. No guarding. Cholecystotomy tube out. Wound site c/d/i. MUSCULOSKELETAL: Extremities without clubbing, cyanosis, or edema. No joint tenderness, effusion, or edema noted. L knee drain out with dressing in place. Still has [id number] pain with knee flexion on left. NEUROLOGICAL: Awake and alert. Cranial nerves grossly intact. Motor and sensory function grossly within normal limits. Patient responded to questions; he appeared oriented. (Chandana Akins MD R3) A/P Assessment and Plan 71 year old male with history of recent hospitalization for gastritis and E. coli bacteremia 2/2 acute cholecystitis presenting with AMS and sepsis. Now with mental status approaching baseline with broad spectrum IV antibiotics and IV fluids. Synovial fluid suggestive of septic arthritis; washout/drain performed 01/31. Discharge Planning Plan for dispo back to SNF as soon as today. Discussed with case management. Abhay to assess today. Will speak with family regarding discharge planning today. Will discuss with Dr. Mosley. (Chandana Akins MD R3) Attending Attestation Pt. examined and case discussed with resident physician I have read the above note and agree with the assessment/plan as discussed with me I was involved in all medical decision making for this patient Oumar Mosley MD (Oumar Mosley MD) Problem List: (1) Septic arthritis Status: Acute Plan: High suspicion for septic arthritis with 29,000 WBCs and 86 polys from synovial fluid aspiration. -Ortho consulted: Arthroscopy with irrigation/drain performed by Dr. Evangelista 01/31 -PT consulted. Mobility with mod-min assist yesterday. Recommend return to SNF. -left knee drain removed today. Ortho has signed off. -Lovenox -ID consulted -Continue IV Zyvox, Azactam per ID (01/29-). Below cultures may be negative 2/ 2 recent abx use, however, synovial fluid labs suspicious for septic arthritis. ID recommends 3 weeks Azactam and Zyvox from date of arthroscopy (last day would be 02/21). Discuss with ID today. -Synovial cultures (01/30, 01/31) negative x3 days. (2) Hypertension Status: Chronic Plan: SBP up to the 170s. -cont home coreg, hydralazine, lisinopril, and cardizem -spironolactone 25 mg daily added yesterday but apparently refused. Will discuss with patient and nursing and monitor pressures today. -PRN clonidine (3) Gastritis Status: Resolved Plan: Chronic issue. Hemoglobin stable this AM. Hemoccult ordered. Check occult blood if diarrhea or emesis. -Continue iron supplementation -cont protonix -monitor daily CBC (4) Hypokalemia Status: Acute Plan: Potassium low at 3.4 this AM. -10 MeQ KCL PO x1 this AM (caution with repletion, given additional of potassium -sparing diuretic today) (5) Dementia Status: Chronic Plan: -cont aricept (6) Constipation Status: Acute Plan: Chronic issue. -add miralax and marvin-colace daily -milk of Mg given today. Enema if no BM today. (7) Major depression Status: Chronic Plan: -hold celexa, given increased risk of serotonin syndrome with zyvox (8) Dietary counseling and surveillance Status: Acute Plan: -diet: passed bedside swallow eval. Regular, thin liquids per speech -IVF: MIVF DVT ppx: Lovenox initiated per ortho. SCDs. -Will monitor closely due to recent GI bleed (Chandana Akins MD R3) Problem Qualifiers (1) Hypertension: Qualified Code: I10 - Essential hypertension (2) Gastritis: Qualified Code: K29.50 - Chronic gastritis without bleeding, unspecified gastritis type (3) Dementia: (4) Major depression: Qualified Code: F33.9 - Recurrent major depressive disorder, remission status unspecified Chandana Akins MD R3 Feb 04, 2017 10:43 Oumar Mosley MD Feb 04, 2017 21:57
[2017-02-04] MEDS ORDERED: POTASSIUM CHLORIDE 10 MEQ CONTROLLED RELEASE TAB PO ONE (10:45)
[2017-02-04] MEDS ORDERED: DOCUSATE SODIUM 50 MG/SENNA 8.6 MG TAB PO ONE (11:00)
[2017-02-04] MEDS ORDERED: POLYETHYLENE GLYCOL 17 GM PKG PO ONE (11:00)
[2017-02-04 12:00] VITALS: BP 166/74; PULSE 57; RESP 20; TEMP 97.3; O2SAT 97
--- NOTE | 2017-02-04 12:48 | HHI.DCPOC ---
Discharge Care Plan Diagnosis: (1) Septic arthritis Goals to Promote Your Health * To prevent worsening of your condition and complications * To maintain your health at the optimal level Directions to Meet Your Goals Take your medications as prescribed Follow your dietary instruction Follow activity as directed Keep your appointments as scheduled Take your immunizations and boosters as scheduled If your symptoms worsen call your PCP, if no PCP go to Urgent Care Center or Emergency Room Smoking is Dangerous to Your Health. Avoid second hand smoke Call the 24-hour hour crisis hotline for domestic abuse at Chandana Akins MD R3 Feb 04, 2017 12:48
[2017-02-04 16:00] VITALS: BP 184/85; PULSE 62; RESP 18; TEMP 96.7; O2SAT 96
[2017-02-04 16:19] LABS: HEMATOCRIT 24.6 % (39.0-51.0); MEAN CELL VOLUME 76.9 FL (80.0-100.0); MEAN CORPUSCULAR HEMOGLOBIN 25.2 PG (27.0-34.0); MEAN CORPUSCULAR HGB CONC 32.8 % (32.0-36.0); PLATELET COUNT 391 TH/MM3 (150-450); RED CELL DISTRIBUTION WIDTH 18.5 % (11.6-17.2); REVIEW FLAG FINAL
--- NOTE | 2017-02-04 16:53 | PD.CONS ---
HPI History of Present Illness This is a 71 year old male who is currently hospitalized for suspected septic arthritis, hypertension, gastritis, constipation, mild dementia, depression, and hypokalemia. He has a history of chronic constipation and hemorrhoids and was started on a bowel regimen of MiraLAX and [place]-Colace daily with a one-time dose of milk of magnesia today. He did have a loose bowel movement after this and it was sent for Hemoccult and came back positive. His H&H has remained stable and is currently at 8.1/24.6. He has not had any obvious active bleeding. He was recently evaluated during a recent hospitalization for anemia and elevated LFTs. US (01/11/17)-----> enlarged liver with mild ascites, gallbladder wall thickening with pericholecystic fluid, differential including acute cholecystitis and secondary changes related to liver disease. Negative sonographic Jackson's sign would favor the latter, sludge and stone in the gallbladder and common bile duct distention of uncertain etiology. He then underwent an EGD/ERCP with balloon sweep and sphincterotomy (01/12/17) and this revealed gastric diverticulum on a gastritis, duodenal diverticulum, dilated common bile duct. Pathology revealed antral mucosa with mild active chronic gastritis and focal intestinal metaplasia. A standard status negative for Helicobacter. The patient has a hx of mild dementia, but is completely alert and oriented for me. He tells me that since he has been in the hospital, he has not been moving much and has been constipated. He reports that he does have this from time to time, but it has been worse here in the hospital. He was started on a bowel regimen and had a large loose bowel movement today. A hemoccult was sent and this came back positive. The patient has not had any obvious visible bleeding. He denies any decreased appetite, heartburn, reflux, abdominal pain, melena, or hematochezia. He reports that he has only had the one episode of loose stool and that was after taking laxatives. He reports that he had a colonoscopy last in 2004 and that he did not have polyps. He states that there is no way he would even want a colonoscopy at this time, because he states he will not able to take the bowel prep with his decreased mobility. 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 neuropathy Chronic left hip pain Chronic muscle spasms Multiple skin cancers on scalp History of shingles History of alcoholism Gastritis history of duodenal diverticulum History of dilated common bile duct Past Surgical History Right knee surgery I&D left knee abscess Appendectomy Multiple back surgeries Left elbow surgery Abscess drainage from roof of mouth ORIF to the right hand Surgery for kidney stones Penal implant Back surgery Bladder implant Cataract surgery right and left EGD/ERCP with sphincterotomy (Brittney Coronado) Coded Allergies: Bactrim (Verified Allergy, Severe, Anaphylaxis, 01/10/17) Ceftin (Verified Allergy, Severe, Anaphylaxis, 01/10/17) Flagyl (Verified Allergy, Severe, Fever, colitis, 01/10/17) Penicillin (Verified Allergy, Severe, Anaphylaxis, 01/10/17) Sulfa (Verified Allergy, Severe, Anaphylaxis, 01/10/17) MRI PRECAUTION (Verified Adverse Reaction, Severe, BLADDER STIMULATOR, ) BRAIN ONLY ON RECEIVE ONLY COIL, P.O. 01/11/17, DML *MDRO Multi-Drug Resistant Organism (Verified Adverse Reaction, Unknown, MRSA, 01/30/17) MRSA PCR (nares) POSITIVE - 01/11/17 Demerol (Verified Adverse Reaction, Unknown, Psychosis, 01/30/17) Morphine (Verified Adverse Reaction, Unknown, Psychosis, 01/30/17) Percocet (Verified Adverse Reaction, Unknown, Psychosis, 01/30/17) Uncoded Allergies: mycins (Allergy, Severe, Fever, colitis, 12/15/13) surgical tape (Allergy, Severe, 12/15/13) Medications Allergies Coded Allergies Type Severity Reaction Last Updated Verified Bactrim Allergy Severe Anaphylaxis 01/10/17 Yes Ceftin Allergy Severe Anaphylaxis 01/10/17 Yes Flagyl Allergy Severe Fever, colitis 01/10/17 Yes Penicillin Allergy Severe Anaphylaxis 01/10/17 Yes Sulfa Allergy Severe Anaphylaxis 01/10/17 Yes MRI PRECAUTION Adverse Reaction Severe BLADDER STIMULATOR 01/11/17 Yes *MDRO Multi-Drug Resistant Organism Adverse Reaction Unknown MRSA 01/30/17 Yes Demerol Adverse Reaction Unknown Psychosis 01/30/17 Yes Morphine Adverse Reaction Unknown Psychosis 01/30/17 Yes Percocet Adverse Reaction Unknown Psychosis 01/30/17 Yes Uncoded Allergies Type Severity Reaction Last Updated Verified mycins Allergy Severe Fever, colitis 12/15/13 surgical tape Allergy Severe 12/15/13 Active Scripts Medications Dose Route/Sig Days Date Category Dose Instructions [place] (Hydrocodone-Acetaminophen) 5-325 mg Tab 1-2 Tab PO Q4H PRN 01/31/17 Rx Celexa (Citalopram Hydrobromide) 40 Mg Tab 60 Mg PO DAILY 01/29/17 Rx Carvedilol 6.25 Mg Tab 6.25 Mg PO BID 01/29/17 Rx [hydrALAZINE] 100 MG Tab 100 Mg PO Q8HR 30 01/29/17 Rx Ondansetron Odt 4 Mg Tab 4 Mg PO Q6H PRN 14 01/29/17 Rx Acidophilus/l-Sporogenes (Lactobacillus Acidophilus) 1 Tab Tab 1 Tab PO Q12HR 14 01/29/17 Rx Duoneb (Ipratropium-Albuterol Neb) 0.5-2.5 Mg/3 Ml Neb 1 Ampule NEB Q4HR NEB PRN 14 01/29/17 Rx Neurontin (Gabapentin) 400 Mg Cap 400 Mg PO Q8HR 30 01/29/17 Rx Catapres (Clonidine) 0.1 Mg Tab 0.1 Mg PO Q6H PRN 30 01/29/17 Rx Flexeril (Cyclobenzaprine HCl) 10 Mg Tab 10 Mg PO Q8H PRN 14 01/29/17 Rx Clotrimazole Anti-Fungal Topical (Clotrimazole) 1% Cream 1 Applic TOPICAL Q8HR 14 01/29/17 Rx Commode 3-in-1 (Device) 1 Mis Mis 1 Ea .ROUTE DIRECTED 01/23/17 Rx [Walker with seat] Ea 01/23/17 Rx Wheelchair (Device) 1 Mis Mis 1 Ea .ROUTE DIRECTED 01/23/17 Rx Lisinopril 40 Mg Tab 40 Mg PO HS 01/19/17 Rx Aspirin 81 Low Dose (Aspirin) 81 Mg Chew 81 Mg CHEW DAILY 01/16/17 Reported Levaquin (Levofloxacin) 750 Mg Tab 750 Mg PO DAILY 01/16/17 Rx Pantoprazole (Pantoprazole Sodium) 40 Mg Tab 40 Mg PO DAILY 01/16/17 Rx Hydrocodone-Acetaminophen 5-325 mg Tab 1 Tab PO Q4H PRN 01/16/17 Rx Ambien (Zolpidem Tartrate) 10 Mg Tab 10 Mg PO HS PRN 01/12/17 Rx Advair Diskus Inh (Fluticasone-Salmeterol Inh) 250-50 Mcg/Blist Aer 1 Puff INH BID 01/10/17 Reported Rinse mouth after use. Travatan Z Opth Drops (Travoprost) 0.004 % Soln 1 Drop EACH EYE HS 01/10/17 Reported Donepezil 10 Mg Tab 10 Mg PO HS 01/10/17 Reported Diltiazem CD 24 HR 240 Mg Caper 480 Mg PO HS 01/10/17 Reported Family History Mother with a history of myocardial infarction, father with history of myocardial infarction, sister with gallbladder issues Social History Quit smoking in September 2013, [id number] smoking history prior to that History of alcohol abuse, quit in 2007 No history of illicit drug use (Brittney Coronado) Review of Systems Constitutional: COMPLAINS OF: Fatigue, DENIES: Fever, Chills, Change in appetite Respiratory: DENIES: Cough Cardiovascular: DENIES: Chest pain Gastrointestinal: COMPLAINS OF: Constipation, Diarrhea (one loose stool), DENIES: Abdominal pain, Black stools, Bloody stools, Nausea, Vomiting, Anorexia , Heartburn, Hematemesis Musculoskeletal: COMPLAINS OF: Joint pain, Muscle aches Hematologic/lymphatic: DENIES: Bruising Neurologic: DENIES: Headache Psychiatric: DENIES: Confusion (Brittney Coronado) GI Exam Vitals I&O Vital Signs Date Time Temp Pulse Resp B/P Pulse Ox O2 Delivery O2 Flow Rate FiO2 02/04/17 12:00 97.3 57 20 166/74 97 02/04/17 10:30 95 21 02/04/17 08:00 97.3 56 20 162/90 97 02/04/17 04:00 97.7 54 18 173/80 96 02/03/17 23:57 98.5 58 18 178/81 95 02/03/17 19:58 96.7 60 20 182/84 97 02/03/17 17:14 98.2 60 16 189/80 98 I/O 02/03/17 02/03/17 02/03/17 02/04/17 02/04/17 02/04/17 07:00 15:00 23:00 07:00 15:00 23:00 Intake Total 600 ml 550 ml 610 ml Output Total 500 ml 650 ml 275 ml 500 ml Balance -500 ml -50 ml 275 ml 110 ml Intake Oral 600 ml 240 ml 100 ml IV Total 310 ml 510 ml Output Urine Total 500 ml 650 ml 250 ml 500 ml Drainage Total 25 ml # Bowel Movements 0 0 5 Imaging Last Impressions Cholangiogram 02/02/17 0000 Signed Impressions: Service Date/Time: Thursday, February 02, 2017 15:49 - CONCLUSION: Patent cystic duct. The patient's cholecystostomy tube was removed. Jose Segura MD Chest X-Ray 01/29/17 1332 Signed Impressions: Service Date/Time: January 13:36 - CONCLUSION: Small left effusion. Hector Soliman Jr., MD Laboratory Test 02/04/17 02/04/17 05:16 16:15 Sodium Level 142 MEQ/L Potassium Level 3.4 MEQ/L Chloride Level 108 MEQ/L Carbon Dioxide Level 26.6 MEQ/L Anion Gap 7 MEQ/L Blood Urea Nitrogen 14 MG/DL Creatinine 0.63 MG/DL Estimat Glomerular Filtration 125 ML/MIN Rate Random Glucose 104 MG/DL Calcium Level 8.6 MG/DL White Blood Count 7.0 TH/MM3 Red Blood Count 3.20 MIL/MM3 Hemoglobin 8.1 GM/DL Hematocrit 24.6 % Mean Corpuscular Volume 76.9 FL Mean Corpuscular Hemoglobin 25.2 PG Mean Corpuscular Hemoglobin 32.8 % Concent Red Cell Distribution Width 18.5 % Platelet Count 391 TH/MM3 Mean Platelet Volume 7.5 FL Date/Time Procedure Status Source Growth 02/04/17 13:30 Stool Occult Blood (DARON) - Final Complete Stool Stool HEMOCCULT POSITIVE 01/31/17 08:31 Gram Stain - Final Complete Wound Knee 01/31/17 08:31 Wound Culture - Final Complete Wound Knee NO GROWTH IN 72 HRS.--AEROBICALLY OR ... 01/31/17 08:31 Fungal Smear - Final Resulted Wound Knee NO FUNGAL ELEMENTS SEEN. 01/31/17 08:31 Fungal Culture Resulted Wound Knee Pending 01/31/17 08:31 Acid Fast Stain - Final Resulted Wound Knee NO ACID FAST BACILLI SEEN 01/31/17 08:31 Mycobacterial Culture Resulted Wound Knee Pending Physical Examination HEENT: Normocephalic; atraumatic; no jaundice. CHEST: CTA CARDIAC: RRR ABDOMEN: Soft, nondistended, nontender; no hepatosplenomegaly; bowel sounds are present in all four quadrants. EXTREMITIES: Decreased rom lle. 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 (CliffBrittney Peace ANDREA) Assessment and Plan Plan ASSESSMENT: - Anemia. Hemoccult positive stool. Pt has had anemia, but this has been stable. 8.12/09.6. He was recently evaluated for anemia/elevated lfts and had EGD and ERCP as below. His last colonoscopy was 5 years ago, denies hx of polyps. He is not having any GI issues other than constipation. He did have one loose stool after receiving multiple laxatives. this was sent for hemoccult and came back positive. He has not seen any blood in his stool. He states that there is no way he would even want a colonoscopy at this time, because he states he will not able to take the bowel prep with his decreased mobility. This is reasonable as his H/H has remained stable and he is not having any significant GI symptoms. Will monitor. Cont. PPI. Consider colonoscopy as outpatient. - Constipation. He tells me that since he has been in the hospital, he has not been moving much and has been constipated. He does have this at times, but it has been worse here in the hospital. He was started on a bowel regimen ( MiraLAX and Medina-Colace daily with a one-time dose of milk of magnesia today) S/ P one large liquid stool. - Elevated Alk Phosph. S/P evaluation for elevated LFTs during hospitalization last month. US (01/11/17)-----> enlarged liver with mild ascites, gallbladder wall thickening with pericholecystic fluid, differential including acute cholecystitis and secondary changes related to liver disease. Negative sonographic Jackson's sign would favor the latter, sludge and stone in the gallbladder and common bile duct distention of uncertain etiology. He then underwent an EGD/ERCP with balloon sweep and sphincterotomy (01/12/17) and this revealed gastric diverticulum on a gastritis, duodenal diverticulum , dilated common bile duct. Pathology revealed antral mucosa with mild active chronic gastritis and focal intestinal metaplasia. - Suspected septic arthritis, per ortho/primary. - Hypertension, mild dementia, depression, and hypokalemia. Per primary. PLAN: - [place]ALINA - PPI - Monitor HH - Transfuse as necessary - Agree with Miralax, Pericolace - Supportive care - Pt states that he does not wish to have a colonoscopy at this time. He states there is no way he would tolerate the bowel prep with his decreased mobility. - Further recommendations to follow based on results of above - Pt seen and examined by Dr. Mckeon and myself and this note is written on her behalf (Brittney Coronado) Physician Comments seen, examined agree with above call us if agrees with colonoscopy (Navya Mckeon MD) Brittney Coronado Feb 04, 2017 16:53 Navya Mckeon MD Feb 04, 2017 18:08
[2017-02-04 20:00] VITALS: BP 167/74; PULSE 60; RESP 18; TEMP 97.9; O2SAT 99
[2017-02-04] MEDS: DOCUSATE SODIUM 50 MG/SENNA 8.6 MG TAB PO SCH (21:00)
[2017-02-04] MEDS: LISINOPRIL 20 MG TAB PO SCH (21:37)
[2017-02-04] MEDS: DONEPEZIL HCL 5 MG TAB PO SCH (21:38)
[2017-02-04] MEDS: DILTIAZEM-CD 240 MG CAP ER PO SCH (21:38)
[2017-02-04] MEDS: LATANOPROST 0.005% OPHT SOLN 2.5 ML BTL EACH EYE SCH (21:40)
[2017-02-04] MEDS: ZOLPIDEM TARTRATE 5 MG TAB PO PRN (21:50)
[2017-02-05] VITALS (9 sets, daily range): BP systolic 153–217; BP diastolic 72–91; PULSE 65–75; RESP 16–20; TEMP 97.8–99.7; O2SAT 96–98
[2017-02-05] MEDS: AZTREONAM INJ 2,000 MG in SODIUM CHLORIDE 0.9% INJ 100 ML IV SCH ×4 (00:27→22:30)
[2017-02-05] MEDS: cloNIDine HCL 0.1 MG TAB PO PRN ×3 (03:31→22:26)
[2017-02-05] MEDS: CLOTRIMAZOLE 1% CREAM 15 GM TOPICAL SCH ×3 (05:42→20:58)
[2017-02-05] MEDS: hydrALAZINE HCL 25 MG TAB PO SCH ×3 (05:42→21:09)
[2017-02-05] MEDS: LINEZOLID 600 MG TAB PO SCH ×3 (05:42→20:56)
[2017-02-05] MEDS: GABAPENTIN 400 MG CAP PO SCH ×3 (05:42→21:09)
[2017-02-05 06:33] LABS: HEMATOCRIT 24.1 % (39.0-51.0); MEAN CORPUSCULAR HEMOGLOBIN 24.8 PG (27.0-34.0); MEAN CORPUSCULAR HGB CONC 32.2 % (32.0-36.0); PLATELET COUNT 427 TH/MM3 (150-450); RED BLOOD COUNT 3.13 MIL/MM3 (4.50-5.90); RED CELL DISTRIBUTION WIDTH 18.7 % (11.6-17.2); WHITE BLOOD COUNT 7.3 TH/MM3 (4.0-11.0)
[2017-02-05 06:38] LABS: REVIEW FLAG FINAL
[2017-02-05] MEDS: PANTOPRAZOLE SOD 40 MG DELAYED RELEASE TAB PO SCH (08:14)
[2017-02-05] MEDS: SPIRONOLACTONE 25 MG TAB PO SCH (08:14)
[2017-02-05] MEDS: ENOXAPARIN SODIUM 40 MG/0.4 ML SYRINGE SQ SCH (08:14)
[2017-02-05] MEDS: FERROUS SULFATE 325 MG (65 MG ELEMENTAL IRON) TAB PO SCH ×2 (08:14→20:56)
[2017-02-05] MEDS: ASPIRIN 81 MG CHEW TAB CHEW SCH (08:14)
[2017-02-05] MEDS: MULTIVITAMINS/MINERALS THERAPEUTIC TAB PO SCH (08:14)
[2017-02-05] MEDS: CARVEDILOL 6.25 MG TAB PO SCH ×2 (08:14→20:56)
[2017-02-05] MEDS: LACTOBACILLUS ACIDOPHILUS TAB PO SCH ×2 (08:14→21:00)
[2017-02-05] MEDS: COLCHICINE 0.6 MG TAB PO SCH (08:14)
[2017-02-05] MEDS: POLYETHYLENE GLYCOL 17 GM PKG PO SCH (08:15)
[2017-02-05] MEDS: SODIUM CHLORIDE 0.9% FLUSH 5 ML FLUSH IVF SCH ×2 (08:15→20:57)
[2017-02-05] MEDS: DOCUSATE SODIUM 50 MG/SENNA 8.6 MG TAB PO SCH ×2 (08:15→21:00)
[2017-02-05] MEDS: DEXT 5%-NACL 0.45% 1000 ML INJ 1,000 ML IV SCH (08:15)
[2017-02-05 08:41] LABS: BICARBONATE 24.8 MEQ/L (21.0-32.0); POTASSIUM 3.5 MEQ/L (3.5-5.1)
--- NOTE | 2017-02-05 10:25 | HHI.FPPN ---
Subjective Remarks met with Mr Garcia, his and one of his sons this am. He is improving overall from his infected joint and sepsis. He is ready to go to [facility]. He does not want colonoscopy and GI has signed off and he will have colonoscopy as an outpt. His last colonoscopy was about 8 years ago and had no polyps or cancers per his . Mr Garcia reported he was doing very well at rehab and was ready to go home when he had his knee infection. His has been concerned about antibiotics in general and specifically but Dr Akins explained well about the septic joint and that his culture may be negative because he was on antibiotics. They were concerned about C diff as he has had this in the past multiple times so it will be checked today.Otherwise, Mr Garcia did not have complaints of abdominal or other pain. He had a tube draining his gallbladder but his stones are gone and he is doing very well in that way. Objective Vitals Vital Signs Date Time Temp Pulse Resp B/P Pulse Ox O2 Delivery O2 Flow Rate FiO2 02/05/17 08:00 Room Air 02/05/17 04:22 98.7 73 16 217/91 96 02/05/17 00:00 97.8 69 18 154/80 98 02/04/17 20:00 97.9 60 18 167/74 99 02/04/17 16:00 96.7 62 18 184/85 96 02/04/17 12:00 97.3 57 20 166/74 97 02/04/17 10:30 95 21 I/O 02/04/17 02/04/17 02/04/17 02/05/17 02/05/17 02/05/17 07:00 15:00 23:00 07:00 15:00 23:00 Intake Total 610 ml 1264 ml 480 ml Output Total 500 ml 302 ml 1200 ml Balance 110 ml 962 ml -720 ml Intake Oral 100 ml 480 ml 480 ml IV Total 510 ml 784 ml Output Urine Total 500 ml 300 ml 1200 ml Stool Total 2 ml # Bowel Movements 0 5 1 Result Diagram: 02/05/1713 02/05/17 0613 Objective Remarks GENERAL: Elderly male sitting up in bed. In NAD. SKIN: No lesions or ecchymoses. CARDIOVASCULAR: Regular rate and rhythm without murmurs. Normal peripheral perfusion. RESPIRATORY: Clear to auscultation. Breath sounds equal bilaterally. No wheezes , rales, or rhonchi. GASTROINTESTINAL: Abdomen soft, NT. Mild distension compared to yesterday. No hepato-splenomegaly, or palpable masses. No guarding. Cholecystotomy tube out. Wound site c/d/i. MUSCULOSKELETAL: Extremities without clubbing, cyanosis, or edema. No joint tenderness, effusion, or edema noted. L knee drain out with dressing in place. Still has [id number] pain with knee flexion on left. NEUROLOGICAL: Awake and alert. Cranial nerves grossly intact. Motor and sensory function grossly within normal limits. Patient responded to questions; he appeared oriented. Urinary Catheter: Yes Assessment to: Remove A/P Assessment and Plan 71 year old male with history of recent hospitalization for gastritis and E. coli bacteremia 2/2 acute cholecystitis presenting with AMS and sepsis. Now with mental status approaching baseline with broad spectrum IV antibiotics and IV fluids. Synovial fluid suggestive of septic arthritis; washout/drain performed 01/31. Discharge Planning Plan for dispo back to SNF as soon as today. Discussed with case management. Abhay to assess today. family and patient agree regarding discharge planning today. Problem List: (1) Septic arthritis Status: Acute Plan: High suspicion for septic arthritis with 29,000 WBCs and 86 polys from synovial fluid aspiration. -Ortho consulted: Arthroscopy with irrigation/drain performed by Dr. Evangelista 01/31 -PT consulted. Mobility with mod-min assist yesterday. Recommend return to SNF. -left knee drain removed today. Ortho has signed off. -Lovenox -ID consulted -Continue IV Zyvox, Azactam per ID (01/29-). Below cultures may be negative 2/ 2 recent abx use, however, synovial fluid labs suspicious for septic arthritis. ID recommends 3 weeks Azactam and Zyvox from date of arthroscopy (last day would be 02/21). Discuss with ID today. -Synovial cultures (01/30, 01/31) negative x3 days. (2) Hypertension Status: Chronic Plan: SBP up to the 170s and higher. -cont home coreg, hydralazine, lisinopril, and cardizem -spironolactone 25 mg daily added yesterday but apparently refused. Will discuss with patient and nursing and monitor pressures today. -PRN clonidine -per his his BPs are accurate in the right arm and because of spasm are too high in the left arm (3) Gastritis Status: Resolved Plan: Chronic issue. Hemoglobin stable this AM. Hemoccult ordered. Checked occult blood and he is stable and prefers to have colonoscopy as an outpt -Continue iron supplementation -cont protonix -monitor daily CBC (4) Dementia Status: Chronic Plan: -cont aricept (5) Hypokalemia Status: Acute Plan: Potassium stable (caution with repletion, given addition of potassium-sparing diuretic) (6) Constipation Status: Acute Plan: Chronic issue. -add miralax and marvin-colace daily -milk of Mg given . had stool today, no obvious blood (7) Major depression Status: Chronic Plan: -hold celexa, given increased risk of serotonin syndrome with zyvox will restart as soon as able (8) Dietary counseling and surveillance Status: Acute Plan: -diet: passed bedside swallow eval. Regular, thin liquids per speech -IVF: MIVF DVT ppx: Lovenox initiated per ortho. SCDs. -Will monitor closely due to recent GI bleed Problem Qualifiers (1) Hypertension: Qualified Code: I10 - Essential hypertension (2) Gastritis: Qualified Code: K29.50 - Chronic gastritis without bleeding, unspecified gastritis type (3) Dementia: Qualified Code: G30.9 - Alzheimer's dementia without behavioral disturbance, unspecified timing of dementia onset (4) Major depression: Qualified Code: F33.9 - Recurrent major depressive disorder, remission status unspecified Alfreda Jacome MD Feb 05, 2017 10:25
[2017-02-05] MEDS ORDERED: LORazepam 1 MG TAB PO PRN (10:45)
--- NOTE | 2017-02-05 12:22 | HHI.FPPN ---
Addendum to progress note ADDENDUM Reason for addendum: Additonal documentation Additional information Spoke with nurse regarding persistently elevated blood pressure (SBP >190). Patient asymptomatic. Does appear to be in pain, per nursing. Per review of EMR , last PRN was 0.1 mg Clonidine at 3 AM this morning. Plan as follows: -hold colchicine as this may be causing increase in BP -add ativan for anxiety/agitation (patient off SSRI 2/2 risk of serotonin syndrome when used with zyvox) -increase PRN clonidine to 0.2mg q6 -check manual BPs -hesitate to increase beta yina, given HR in the 50s overnight -consider cards consult if BP not improved, despite above Will discuss with Chandana Streeter MD R3 Feb 05, 2017 12:22
[2017-02-05] MEDS: cloNIDine HCL 0.1 MG TAB PO SCH ×2 (14:00→21:09)
[2017-02-05] MEDS ORDERED: ENALAPRILAT 1.25 MG/ML VIAL IV PUSH ONE (14:45)
[2017-02-05] MEDS ORDERED: ENALAPRILAT 1.25 MG/ML VIAL IV PRN (14:45)
[2017-02-05] MEDS: ACETAMINOPHEN/HYDROcodone 325 MG/5 MG TAB PO PRN ×2 (15:12→22:30)
[2017-02-05] MEDS: LISINOPRIL 20 MG TAB PO SCH (20:56)
[2017-02-05] MEDS: DONEPEZIL HCL 5 MG TAB PO SCH (20:56)
[2017-02-05] MEDS: DILTIAZEM-CD 240 MG CAP ER PO SCH (20:56)
[2017-02-05] MEDS: LATANOPROST 0.005% OPHT SOLN 2.5 ML BTL EACH EYE SCH (20:57)
[2017-02-05] MEDS: ZOLPIDEM TARTRATE 5 MG TAB PO PRN (22:33)
--- NOTE | 2017-02-05 23:31 | RADRPT ---
EXAM DATE/TIME: 01/30/2017 14:25 [facility] COMPARISON: No previous studies available for comparison. INDICATIONS : Patient presents with swelling of left knee in need of an aspiration under image guidance. MEDICAL HISTORY : History of bilateral lower extremity swelling, anemia, gastritis, cholecystitis, DM, glaucoma, HTN, C OPD, dementia, TIA, benign meningeal tumor, spinal stenosis, ruptured lumbar spine disc, skin cancer, shingles, ETOH abuse. SURGICAL HISTORY : History of cholecystostomy tube, ERCP, sphincterotomy, kidney stone removal, I and D left knee absces s, right meniscus repair, appendectomy, bladder implant, bilateral cataract removal, back surgery. ENCOUNTER: Initial ACUITY: 1 day PAIN SCORE: 5/10 LOCATION: Left knee FLUORO TIME: IMAGE SERIES: 0 DEVICE(S): 18 gauge needle was placed into the left knee joint. RESPONSE: Pre procedure pain level was 5/10 Post procedure pain level was 5/10 FLUID: Total volume of40 cc of cloudy yellow fluid was removed. Fluid specimen was submitted to the lab for evaluation. PROCEDURE : 1. ultrasound guided <left knee>> aspiration. The risks, benefits and alternatives to the procedure were explained and verbal and written consent w as obtained. The site was prepped in sterile fashion. Full sterile technique was used, including ca p, mask, sterile gloves and gown and a large sterile sheet. Hand hygiene and 2% chlorhexidine and/or betadine/alcohol prep was utilized per protocol for cutaneous antisepsis. The skin and subcutaneous tissues were infiltrated with local anesthetic solution. Under direct sonographic guidance an 18 gauge needle was passed into the left knee via a medial appro ach. Aspiration yielded 40 mL of cloudy yellow tinged fluid. Samples were sent to the lab as requeste d. The patient tolerated the procedure well and there were no complications. CONCLUSION: Uncomplicated left knee aspiration as above. Hector Soliman Jr., MD on February 05, 2017 at 23:28 Board Certified Radiologist. This report was verified electronically.
[2017-02-06] VITALS: BP 192/84; PULSE 68; RESP 18; TEMP 98; O2SAT 97
[2017-02-06 04:00] VITALS: BP 140/65; PULSE 54; RESP 18; TEMP 98.1; O2SAT 97
[2017-02-06] MEDS: ACETAMINOPHEN/HYDROcodone 325 MG/5 MG TAB PO PRN ×3 (04:00→14:13)
[2017-02-06] MEDS: hydrALAZINE HCL 25 MG TAB PO SCH ×2 (05:18→13:23)
[2017-02-06] MEDS: cloNIDine HCL 0.1 MG TAB PO SCH ×2 (05:18→13:23)
[2017-02-06] MEDS: GABAPENTIN 400 MG CAP PO SCH ×2 (05:18→13:23)
[2017-02-06] MEDS: AZTREONAM INJ 2,000 MG in SODIUM CHLORIDE 0.9% INJ 100 ML IV SCH (05:19)
[2017-02-06] MEDS: CLOTRIMAZOLE 1% CREAM 15 GM TOPICAL SCH ×2 (06:00→13:26)
[2017-02-06 07:26] LABS: AUTOMATED NEUTROPHIL # 4.9 TH/MM3 (1.8-7.7); BASOPHIL % 0.7 % (0.0-2.0); EOSINOPHIL # 0.3 TH/MM3 (0-0.4); EOSINOPHIL % 4.2 % (0.0-4.0); HEMATOCRIT 22.3 % (39.0-51.0); HEMO FLAGS DIFF FINAL; LYMPH % 18.6 % (9.0-44.0); LYMPHOCYTE # 1.4 TH/MM3 (1.0-4.8); MEAN CELL VOLUME 78.2 FL (80.0-100.0); MEAN CORPUSCULAR HEMOGLOBIN 25.5 PG (27.0-34.0); MEAN CORPUSCULAR HGB CONC 32.7 % (32.0-36.0); MONO % 9.4 % (0.0-8.0); NEUT % 67.1 % (16.0-70.0); PLATELET COUNT 377 TH/MM3 (150-450); RED BLOOD COUNT 2.85 MIL/MM3 (4.50-5.90); RED CELL DISTRIBUTION WIDTH 19.3 % (11.6-17.2); WHITE BLOOD COUNT 7.3 TH/MM3 (4.0-11.0)
[2017-02-06 07:55] LABS: ALT (GPT) 36 U/L (12-78); ANION GAP 7 MEQ/L (5-15); AST (GOT) 32 U/L (15-37); BICARBONATE 25.6 MEQ/L (21.0-32.0); BLOOD UREA NITROGEN 13 MG/DL (7-18); CHLORIDE 112 MEQ/L (98-107); GLOMERULAR FILTRATION RATE 123 ML/MIN (>89); POTASSIUM 3.3 MEQ/L (3.5-5.1); SODIUM (NA) 145 MEQ/L (136-145)
[2017-02-06 07:57] LABS: ALKALINE PHOSPHATASE 122 U/L (45-117); TOTAL BILIRUBIN ADULT 0.2 MG/DL (0.2-1.0)
[2017-02-06 08:00] VITALS: BP 166/78; PULSE 56; RESP 18; TEMP 97.6; O2SAT 98
[2017-02-06] MEDS ORDERED: FUROSEMIDE 20 MG/2 ML VIAL IV PUSH ONE (08:30)
--- NOTE | 2017-02-06 08:36 | HHI.FPPN ---
Subjective Remarks Patient seen this morning. No acute events overnight. Vitals this morning WNL. Patient did have elevated BPs (SBP up to the 210s) overnight. Per nursing, diarrhea is slowing down. 1 BM overnight. Mr. Garcia has no complaints this morning. He states he feels ready to go to [place]. Not in any pain. No SOB or CP. Denies any F/C. Objective Vitals Vital Signs Date Time Temp Pulse Resp B/P Pulse Ox O2 Delivery O2 Flow Rate FiO2 02/06/17 04:00 98.1 54 18 140/65 97 02/06/17 00:00 98.0 68 18 192/84 97 02/05/17 22:20 188/78 02/05/17 20:00 99.6 75 20 210/80 97 02/05/17 16:00 98.4 65 20 182/78 97 02/05/17 13:30 192/80 02/05/17 12:00 198/72 Automatic Cuff 02/05/17 12:00 99.7 70 20 96 02/05/17 11:16 153/80 I/O 02/05/17 02/05/17 02/05/17 02/06/17 02/06/17 02/06/17 07:00 15:00 23:00 07:00 15:00 23:00 Intake Total 480 ml 720 ml 0 ml 120 ml Output Total 1200 ml 1100 ml 250 ml 300 ml Balance -720 ml -380 ml -250 ml -180 ml Intake Oral 480 ml 720 ml 0 ml 120 ml Output Urine Total 1200 ml 1100 ml 250 ml 300 ml # Bowel Movements 1 3 2 1 Result Diagram: 02/06/1740 02/06/17 0540 Objective Remarks GENERAL: Elderly male sitting up in bed. In NAD. SKIN: No lesions or ecchymoses. CARDIOVASCULAR: Regular rate and rhythm without murmurs. Normal peripheral perfusion. RESPIRATORY: Clear to auscultation. Breath sounds equal bilaterally. No wheezes , rales, or rhonchi. GASTROINTESTINAL: Abdomen soft, NT, ND. No hepato-splenomegaly, or palpable masses. No guarding. Cholecystotomy tube out. Wound site c/d/i. MUSCULOSKELETAL: Extremities without clubbing or cyanosis. +1 pitting edema in bilateral LEs, a new finding compared to yesterday. No joint tenderness, effusion, or edema noted. L knee drain out with dressing in place. Still has [id number] pain with knee flexion on left. NEUROLOGICAL: Awake and alert. Cranial nerves grossly intact. Motor and sensory function grossly within normal limits. Patient responded to questions; he appeared oriented. A/P Assessment and Plan 71 year old male with history of recent hospitalization for gastritis and E. coli bacteremia 2/2 acute cholecystitis presenting with AMS and sepsis. Now with mental status approaching baseline with broad spectrum IV antibiotics and IV fluids. Synovial fluid suggestive of septic arthritis; washout/drain performed 01/31. Discharge Planning Discharge held yesterday 2/2 elevated blood pressures. Plan for dispo back to [place] if BP under better control this AM. Will discuss with case management. Will discuss with Dr. Jacome Problem List: (1) Septic arthritis Status: Acute Plan: High suspicion for septic arthritis with 29,000 WBCs and 86 polys from synovial fluid aspiration. -Ortho consulted: Arthroscopy with irrigation/drain performed by Dr. Evangelista 01/31 -PT consulted. Mobility with mod-min assist currently. Patient unavailable to work with yesterday apparently. Recommend return to SNF. -left knee drain removed. Ortho has signed off. -we will hold lovenox 2/2 hemoccult positive stool -ID consulted -Continue IV Zyvox, Azactam per ID (01/29-). Below cultures may be negative 2/ 2 recent abx use, however, synovial fluid labs suspicious for septic arthritis. ID recommends 3 weeks Azactam and Zyvox from date of arthroscopy (last day would be 02/21). -Synovial cultures (01/30, 01/31) negative x3 days. (2) Hypertension Status: Chronic Plan: SBP up to the 200s overnight. BP this AM WNL. -colchicine DCed yesterday -cont home coreg, hydralazine, lisinopril, and cardizem -clonidine 0.1mg q8 -increase spironolactone to 25mg BID -PRN clonidine and vasotec -consider chlorthalidone if not controlled with above -per his his BPs are accurate in the right arm and because of spasm are too high in the left arm (3) GI bleed Status: Chronic Plan: Likely old gastritis v. lower GI bleed. -lovenox on hold currently -hemoglobin stable in the 7-8 range over the past several days. -GI consulted. Patient refuses colonoscopy. They have recommended outpatient workup. Have signed off. We will re-consult if significant changes in hemoglobin or suspicion for acute GI bleed. (4) Diarrhea Status: Acute Plan: 2/2 milk of Mg versus GI bleed. 6 BMs documented yesterday. -check Cdiff if persists today. Imodium if negative. -Monitor H/H (5) Dementia Status: Chronic Plan: -cont aricept (6) Lower extremity edema Status: Acute Plan: ? volume overload with IV antibiotics. No concerning lung findings on exam today. -lasix 20 mg IV x1 today -monitor (7) Hypokalemia Status: Acute Plan: Potassium low at 3.3 today. Replete with 40 MeQ today. -follow daily BMP (8) Major depression Status: Chronic Plan: -hold celexa, given increased risk of serotonin syndrome with zyvox. Restart as soon as possible. Will add PRN ativan for agitation/anxiety for the time being. (9) Dietary counseling and surveillance Status: Acute Plan: -diet: passed bedside swallow eval. Regular, thin liquids per speech -IVF: SLIV (gets fluids with antibiotics) DVT ppx: DC lovenox 2/2 hemoccult positive stools. Problem Qualifiers (1) Septic arthritis: Qualified Code: M00.9 - Pyogenic arthritis of left knee joint, due to unspecified organism (2) Hypertension: Qualified Code: I10 - Essential hypertension (3) GI bleed: Qualified Code: K29.71 - Gastrointestinal hemorrhage associated with gastritis , unspecified gastritis type (4) Diarrhea: Qualified Code: R19.7 - Diarrhea, unspecified type (5) Dementia: Qualified Code: G30.9 - Alzheimer's dementia without behavioral disturbance, unspecified timing of dementia onset (6) Lower extremity edema: Qualified Code: R60.0 - Bilateral edema of lower extremity (7) Major depression: Qualified Code: F33.9 - Recurrent major depressive disorder, remission status unspecified Chandana Akins MD R3 Feb 06, 2017 08:35
[2017-02-06] MEDS: POLYETHYLENE GLYCOL 17 GM PKG PO SCH (09:00)
[2017-02-06] MEDS: DOCUSATE SODIUM 50 MG/SENNA 8.6 MG TAB PO SCH (09:00)
[2017-02-06] MEDS: DEXT 5%-NACL 0.45% 1000 ML INJ 1,000 ML IV SCH (09:00)
[2017-02-06] MEDS ORDERED: POTASSIUM CHLORIDE 20 MEQ CONTROLLED RELEASE TAB PO ONE (09:00)
[2017-02-06] MEDS: SODIUM CHLORIDE 0.9% FLUSH 5 ML FLUSH IVF SCH (09:00)
[2017-02-06] MEDS ORDERED: SPIRONOLACTONE 25 MG TAB PO SCH (09:00)
[2017-02-06] MEDS: LACTOBACILLUS ACIDOPHILUS TAB PO SCH (09:30)
[2017-02-06] MEDS: CARVEDILOL 6.25 MG TAB PO SCH (09:30)
[2017-02-06] MEDS: MULTIVITAMINS/MINERALS THERAPEUTIC TAB PO SCH (09:30)
[2017-02-06] MEDS: FERROUS SULFATE 325 MG (65 MG ELEMENTAL IRON) TAB PO SCH (09:30)
[2017-02-06] MEDS: PANTOPRAZOLE SOD 40 MG DELAYED RELEASE TAB PO SCH (09:30)
[2017-02-06] MEDS: ASPIRIN 81 MG CHEW TAB CHEW SCH (09:30)
[2017-02-06] MEDS: LINEZOLID 600 MG TAB PO SCH (09:30)
[2017-02-06 10:46] VITALS: O2SAT 94
[2017-02-06 11:00] LABS: C. DIFF EPI 027 PRESUMPTIVE NEGATIVE (NEGATIVE); C. DIFF TOXIN PCR NEGATIVE (NEGATIVE)
--- NOTE | 2017-02-06 11:06 | HHI.IDPN ---
Subjective Subjective Remarks Notes reviewed D/W Dr Akins Patient being eval for Blank Tem ok C/S from OR negative so far Antibiotics Azactam Zyvox Past Medical History Reviewed Allergies: Coded Allergies: Bactrim (Verified Allergy, Severe, Anaphylaxis, 01/10/17) Ceftin (Verified Allergy, Severe, Anaphylaxis, 01/10/17) Flagyl (Verified Allergy, Severe, Fever, colitis, 01/10/17) Penicillin (Verified Allergy, Severe, Anaphylaxis, 01/10/17) Sulfa (Verified Allergy, Severe, Anaphylaxis, 01/10/17) MRI PRECAUTION (Verified Adverse Reaction, Severe, BLADDER STIMULATOR, ) BRAIN ONLY ON RECEIVE ONLY COIL, P.O. 01/11/17, DML *MDRO Multi-Drug Resistant Organism (Verified Adverse Reaction, Unknown, MRSA, 01/30/17) MRSA PCR (nares) POSITIVE - 01/11/17 Demerol (Verified Adverse Reaction, Unknown, Psychosis, 01/30/17) Morphine (Verified Adverse Reaction, Unknown, Psychosis, 01/30/17) Percocet (Verified Adverse Reaction, Unknown, Psychosis, 01/30/17) Uncoded Allergies: mycins (Allergy, Severe, Fever, colitis, 12/15/13) surgical tape (Allergy, Severe, 12/15/13) Objective . Vital Signs Date Time Temp Pulse Resp B/P Pulse Ox O2 Delivery O2 Flow Rate FiO2 02/06/17 10:46 94 21 02/06/17 08:00 97.6 56 18 166/78 98 02/06/17 07:30 Room Air 02/06/17 04:00 98.1 54 18 140/65 97 02/06/17 00:00 98.0 68 18 192/84 97 02/05/17 22:20 188/78 02/05/17 20:00 99.6 75 20 210/80 97 02/05/17 16:00 98.4 65 20 182/78 97 02/05/17 13:30 192/80 02/05/17 12:00 198/72 Automatic Cuff 02/05/17 12:00 99.7 70 20 96 02/05/17 11:16 153/80 02/05/17 02/05/17 02/06/17 15:00 23:00 07:00 Intake Total 720 ml 0 ml 120 ml Output Total 1100 ml 250 ml 300 ml Balance -380 ml -250 ml -180 ml Intake Oral 720 ml 0 ml 120 ml Output Urine Total 1100 ml 250 ml 300 ml # Bowel Movements 3 2 1 . Laboratory Tests Test 02/04/17 02/05/17 02/06/17 16:15 06:13 05:40 White Blood Count 7.0 TH/MM3 7.3 TH/MM3 7.3 TH/MM3 Red Blood Count 3.20 MIL/MM3 3.13 MIL/MM3 2.85 MIL/MM3 Hemoglobin 8.1 GM/DL 7.7 GM/DL 7.3 GM/DL Hematocrit 24.6 % 24.1 % 22.3 % Mean Corpuscular Volume 76.9 FL 77.0 FL 78.2 FL Mean Corpuscular Hemoglobin 25.2 PG 24.8 PG 25.5 PG Mean Corpuscular Hemoglobin 32.8 % 32.2 % 32.7 % Concent Red Cell Distribution Width 18.5 % 18.7 % 19.3 % Platelet Count 391 TH/MM3 427 TH/MM3 377 TH/MM3 Mean Platelet Volume 7.5 FL 7.4 FL 7.6 FL Neutrophils (%) (Auto) 67.1 % Lymphocytes (%) (Auto) 18.6 % Monocytes (%) (Auto) 9.4 % Eosinophils (%) (Auto) 4.2 % Basophils (%) (Auto) 0.7 % Neutrophils # (Auto) 4.9 TH/MM3 Lymphocytes # (Auto) 1.4 TH/MM3 Monocytes # (Auto) 0.7 TH/MM3 Eosinophils # (Auto) 0.3 TH/MM3 Basophils # (Auto) 0.0 TH/MM3 CBC Comment DIFF FINAL Differential Comment Laboratory Tests Test 02/05/17 02/06/17 06:13 05:40 Sodium Level 143 MEQ/L 145 MEQ/L Potassium Level 3.5 MEQ/L 3.3 MEQ/L Chloride Level 111 MEQ/L 112 MEQ/L Carbon Dioxide Level 24.8 MEQ/L 25.6 MEQ/L Anion Gap 7 MEQ/L 7 MEQ/L Blood Urea Nitrogen 12 MG/DL 13 MG/DL Creatinine 0.58 MG/DL 0.64 MG/DL Estimat Glomerular Filtration 138 ML/MIN 123 ML/MIN Rate Random Glucose 95 MG/DL 100 MG/DL Calcium Level 8.9 MG/DL 8.4 MG/DL Total Bilirubin 0.2 MG/DL Aspartate Amino Transf 32 U/L (AST/SGOT) Alanine Aminotransferase 36 U/L (ALT/SGPT) Alkaline Phosphatase 122 U/L Total Protein 5.2 GM/DL Albumin 1.6 GM/DL Microbiology Date/Time Procedure Status Source Growth 02/04/17 13:30 Stool Occult Blood ([facility]) - Final Complete Stool Stool HEMOCCULT POSITIVE Imaging Last Impressions Chest X-Ray 01/29/17 1332 Signed Impressions: Service Date/Time: January 13:36 - CONCLUSION: Small left effusion. Hector Soliman Jr., MD Physical Exam GENERAL: Awake and alert, not in resp distress SKIN: Warm and dry, no generalized rash HEENT: [place] conjunctivae. No scleral icterus. No injection or drainage. Moist oral mucosa. NECK: Supple, nontender, no meningeal signs. CARDIOVASCULAR: Regular rate and rhythm without murmurs, gallops, or rubs. RESPIRATORY: Clear to auscultation. Breath sounds equal bilaterally. No wheezes , rales, or rhonchi. Decreased BS at bases. GASTROINTESTINAL: Abdomen soft, nondistended. Not tender. Bowel sounds present and normoactive. MUSCULOSKELETAL: Extremities without clubbing, cyanosis. No calf tenderness. Negative Homans sign bilaterally. RLE: redness resolved. LLE: Knee swollen with min redness, still with limited ROM. NEUROLOGICAL: Non-focal LINE: PIV with no evidence of infection Assessment & Plan Remarks IMPRESSION New sepsis, with fever and chills, and encephalopathy - better - source? L knee - swollen and tender, though not red, fluid looks septic, crystals negative - C/S negative due to prior Abx before OR RLE ?cellulitis, ?inflammatory arthritis R ankle - better Episode of Escherichia coli sepsis due to acute cholecystitis - Better has a tube cholecystostomy in place, LFTs are better Multiple antibiotic allergies, has tolerated quinolones, Azactam, Tygacil RECOMMENDATION Monitor progress Continue Zyvox - follow CBC while on Zyvox Change Azactam to Levaquin Give Abx until February 19 Being evaluated for Blank Clinically doing well from ID standpoint Vanessa Srinivasan MD Feb 06, 2017 11:06
[2017-02-06] MEDS ORDERED: LEVOFLOXACIN 750 MG TAB PO SCH (11:30)
[2017-02-06 12:00] VITALS: BP 146/74; PULSE 51; RESP 20; TEMP 99; O2SAT 98
[2017-02-16] MEDS ORDERED: FERR325T PO (08:45)
[2017-02-16] MEDS ORDERED: DILT-64 PO (08:45)
[2017-02-16] MEDS ORDERED: TRAV0.00 EACH EYE (08:45)
[2017-02-16] MEDS ORDERED: AMBI5TAB PO (08:45)
[2017-02-16] MEDS ORDERED: CARV6.252 PO (08:45)
[2017-02-16] MEDS ORDERED: CLOT1CRE6 TOPICAL (08:45)
[2017-02-16] MEDS ORDERED: DONE10TA7 PO (08:45)
[2017-02-16] MEDS ORDERED: NEUR400C PO (08:45)
[2017-02-16] MEDS ORDERED: FURO20TA PO (08:45)
[2017-02-16] MEDS ORDERED: PANT40TA3 PO (08:45)
[2017-02-16] MEDS ORDERED: LEVA750T PO (08:45)
[2017-02-16] MEDS ORDERED: hydrALAZINE PO (08:45)
[2017-02-16] MEDS ORDERED: LISI40TA PO (08:45)
[2017-02-16] MEDS ORDERED: LACT PO (08:45)
[2017-02-16] MEDS ORDERED: ADVA250A INH (08:45)
[2017-02-16] MEDS ORDERED: ASPI81CH3 CHEW (08:45)
[2017-02-16] MEDS ORDERED: ZYVO600T PO (08:45)
[2017-02-16] MEDS ORDERED: HYDR-3583 PO (08:45)
[2017-02-16] MEDS ORDERED: THERTAB15 PO (08:46)
[2017-02-16] MEDS ORDERED: LORA-474 PO (08:46)
[2017-02-16] MEDS ORDERED: Spironolactone PO (08:46)
--- NOTE | 2017-02-18 11:42 | HHI.DS ---
Discharge Summary Admission Date Jan 29, 2017 at 13:31 Discharge Date: Mar 09, 2017 Admitting Diagnosis (1) Septic arthritis Diagnosis: Principal Plan: High suspicion for septic arthritis with 29,000 WBCs and 86 polys from synovial fluid aspiration. -Ortho consulted: Arthroscopy with irrigation/drain performed by Dr. Evangelista 01/31 -PT consulted. Mobility with mod-min assist currently. Patient unavailable to work with yesterday apparently. Recommend return to SNF. -left knee drain removed. Ortho has signed off. -we will hold lovenox 2/2 hemoccult positive stool -ID consulted -Continue IV Zyvox, Azactam per ID (01/29-). Below cultures may be negative 2/ 2 recent abx use, however, synovial fluid labs suspicious for septic arthritis. ID recommends 3 weeks Azactam and Zyvox from date of arthroscopy (last day would be 02/21). -Synovial cultures (01/30, 01/31) negative x3 days. (2) Hypertension Diagnosis: Secondary Plan: SBP up to the 200s overnight. BP this AM WNL. -colchicine DCed yesterday -cont home coreg, hydralazine, lisinopril, and cardizem -clonidine 0.1mg q8 -increase spironolactone to 25mg BID -PRN clonidine and vasotec -consider chlorthalidone if not controlled with above -per his his BPs are accurate in the right arm and because of spasm are too high in the left arm (3) GI bleed Diagnosis: Secondary Plan: Likely old gastritis v. lower GI bleed. -lovenox on hold currently -hemoglobin stable in the 7-8 range over the past several days. -GI consulted. Patient refuses colonoscopy. They have recommended outpatient workup. Have signed off. We will re-consult if significant changes in hemoglobin or suspicion for acute GI bleed. (4) Diarrhea Diagnosis: Secondary Plan: 2/2 milk of Mg versus GI bleed. 6 BMs documented yesterday. -check Cdiff if persists today. Imodium if negative. -Monitor H/H (5) Dementia Diagnosis: Secondary Plan: -cont aricept (6) Lower extremity edema Diagnosis: Secondary Plan: ? volume overload with IV antibiotics. No concerning lung findings on exam today. -lasix 20 mg IV x1 today -monitor (7) Hypokalemia Diagnosis: Secondary Plan: Potassium low at 3.3 today. Replete with 40 MeQ today. -follow daily BMP (8) Major depression Diagnosis: Secondary Plan: -hold celexa, given increased risk of serotonin syndrome with zyvox. Restart as soon as possible. Will add PRN ativan for agitation/anxiety for the time being. (9) Dietary counseling and surveillance Diagnosis: Secondary Plan: -diet: passed bedside swallow eval. Regular, thin liquids per speech -IVF: SLIV (gets fluids with antibiotics) DVT ppx: DC lovenox 2/2 hemoccult positive stools. Consultants ID (Dr. Srinivasan) GI (Dr. Mckeon) Orthopedic (Dr. Evangelista) IR (Dr. Soliman, Dr. Segura) Brief History 71 yo M [facility] sepsis with altered mental status, fevers, and leukocytosis that came on relatively suddenly. Per nursing, his fevers started overnight and was associated with bilateral LE pain with altered mental status. Apparently, he is normally lucid and now is slow to speak and confused. He is in [facility] after an inpatient stay at [facility] for below: He was admitted on 01/10 for CP, RUQ pain, and anemia. Mr. Garcia required 3 u pRBC transfusion for hemoglobin in the 7s. Cardiology and GI originally consulted. He had EGD showing gastritis as well as ERCP with sphincterotomy. Later found to have blood culture positive for E. coli. ID was consulted and started patient on Aztreonam and Tigecycline. Later transitioned to PO levaquin , 14 day course, which patient was currently taking at [facility]. His bacteremia was suspected to be result of cholecystitis. General surgery was consulted and opted for cholecystomy tube (placed 01/12), as patient considered high-risk for surgery. He improved clinically throughout his course and was transferred to [facility] 01/16. On review of EMR, Cdiff 01/16 was negative. Bilateral LE doppler negative 01/27 PE at Discharge GENERAL: Elderly male sitting up in bed. In NAD. SKIN: No lesions or ecchymoses. CARDIOVASCULAR: Regular rate and rhythm without murmurs. Normal peripheral perfusion. RESPIRATORY: Clear to auscultation. Breath sounds equal bilaterally. No wheezes , rales, or rhonchi. GASTROINTESTINAL: Abdomen soft, NT, ND. No hepato-splenomegaly, or palpable masses. No guarding. Cholecystotomy tube out. Wound site c/d/i. MUSCULOSKELETAL: Extremities without clubbing or cyanosis. +1 pitting edema in bilateral LEs, a new finding compared to yesterday. No joint tenderness, effusion, or edema noted. L knee drain out with dressing in place. Still has [id number] pain with knee flexion on left. NEUROLOGICAL: Awake and alert. Cranial nerves grossly intact. Motor and sensory function grossly within normal limits. Patient responded to questions; he appeared oriented. Hospital Course 71-year-old male admitted after he was discovered to be confused on 01/[address] [facility]. He had recently been discharged to rehabilitation after admission for Escherichia coli bacteremia, cholecystitis and GI bleed. He had questionable right lower extremity cellulitis and left knee swelling/restricted ROM. Met sepsis criteria based on new fever, leukocytosis, and suspected source. Initially admitted to [facility] floor, but transferred to the intensive care unit after he had some low pressures. He was started on broad-spectrum antibiotics (aztreonam and Zyvox). Also given normal saline bolus and started on maintenance IV fluids. Chest x-ray and 2-D echo negative. Infectious disease was consulted, given possible right lower extremity cellulitis/septic arthritis and left knee in the setting of recent Escherichia coli bacteremia. Patient had left knee aspiration on 01/30. This was suspicious for septic joint with 29,000 WBC and 86 polys. Culture was negative, however, patient was continued on empiric therapy as he had previously been on antibiotic therapy for Escherichia coli bacteremia (could result in false negative culture). Was also started on colchicine for possible gout. Patient was able to have cholecystostomy tube from previous admission removed on 02/02. [facility] evaluated patient for readmission on 02/04, however, he had black stools, which were Hemoccult positive. Gastroenterology was consulted. Patient refused colonoscopy. Gastroenterology suspected old bleed. Recommended GI prophylaxis and monitoring hemoglobin. Patient again evaluated by [facility] on 02/05, however, had elevated blood pressures (systolic blood pressure above 190). He was started on scheduled clonidine and spironolactone at this point, and blood pressures did improve. Patient was discharged to [facility] on 02/06. Infectious disease changed his antibiotics to by mouth Zyvox and Levaquin. He will need to complete a 3 total weeks antibiotic therapy. Will need to follow up with primary care physician within one week of discharge. Pt Condition on Discharge: Good Discharge Disposition: Rehab Inpatient Discharge Instructions DIET: Follow Instructions for: As Tolerated, No Restrictions Activities you can perform: Weight Bearing as Juanito Chandana Akins MD R3 Feb 18, 2017 11:42
[2017-02-27] MEDS ORDERED: CITA40TA4 PO ×2 (10:26→10:41)
[2017-02-27] MEDS ORDERED: ATOR40TA16 PO (10:26)
[2017-02-27] MEDS ORDERED: CARV6.252 PO (10:41)
[2017-02-27] MEDS ORDERED: Spironolactone PO (10:41)
[2017-02-27] MEDS ORDERED: SPIR25TA PO (10:42)
[2017-03-06] MEDS ORDERED: CITA40TA4 PO (12:30)
[2017-03-26] MEDS ORDERED: CYCL1TAB29 PO (13:15)
[2017-03-30] MEDS ORDERED: SPIR25TA PO (10:30)
[2017-03-30] MEDS ORDERED: TRAV0.00 EACH EYE (10:30)
[2017-03-30] MEDS ORDERED: CARV6.252 PO (10:30)
[2017-03-30] MEDS ORDERED: GABA400C5 PO (10:30)
[2017-03-30] MEDS ORDERED: CYCL1TAB29 PO (10:30)
[2017-03-30] MEDS ORDERED: DONE10TA7 PO (10:30)
[2017-03-30] MEDS ORDERED: ADVA250A INH (10:30)
[2017-03-30] MEDS ORDERED: IPRAAER INH (10:52)
[2017-03-30] MEDS ORDERED: ADVA500A INH ×2 (10:53→10:54)
[2017-03-30] MEDS ORDERED: FLUT50SP EACH NARE (10:55)
[2017-03-30] MEDS ORDERED: AZEL1SPR2 EACH NARE (10:55)
[2017-03-30] MEDS ORDERED: PNEU25IN IM (11:01)
[2017-04-10] MEDS ORDERED: LEVO750T3 PO (10:21)
[2017-04-10] MEDS ORDERED: ALBU0.08 NEB (10:21)
[2017-04-10] MEDS ORDERED: PRED50 PO (10:21)
== END 2017-02-06 15:50 | DRG 853 ==
LOC: N07A 13:31 → HIMN 14:00 → N04A 01-31 23:53
PROVIDERS: ADMIT Family Medicine; ATTEND Family Medicine
PROC: 0S9D3ZZ Drainage of Left Knee Joint, Percutaneous Approach (ICD-10-PCS; 2017-01-30)
PROC: 0L9 Tendons, Drainage (ICD-10-PCS; principal; 2017-01-31 07:49)
PROC: 0FP430Z Removal of Drainage Device from Gallbladder, Percutaneous Approach (ICD-10-PCS; 2017-02-02)
PROC: BF131ZZ Fluoroscopy of Gallbladder and Bile Ducts using Low Osmolar Contrast (ICD-10-PCS; 2017-02-02)
DX: A41.9 Sepsis, unspecified organism (principal); G93.40 Encephalopathy, unspecified; R18.8 Other ascites; L03.115 Cellulitis of right lower limb; M00.9 Pyogenic arthritis, unspecified; F33.9 Major depressive disorder, recurrent, unspecified; E87.70 Fluid overload, unspecified; G62.9 Polyneuropathy, unspecified; J44.9 Chronic obstructive pulmonary disease, unspecified; G30.9 Alzheimer's disease, unspecified; F02.80 Dementia in other diseases classified elsewhere, unspecified severity, without behavioral disturbance, psychotic disturbance, mood disturbance, and anxiety; E11.9 Type 2 diabetes mellitus without complications; I10 Essential (primary) hypertension; D64.9 Anemia, unspecified; M51.26 Other intervertebral disc displacement, lumbar region; E87.6 Hypokalemia; K59.00 Constipation, unspecified; K29.50 Unspecified chronic gastritis without bleeding; K57.10 Diverticulosis of small intestine without perforation or abscess without bleeding; R16.0 Hepatomegaly, not elsewhere classified; M06.4 Inflammatory polyarthropathy; M48.00 Spinal stenosis, site unspecified; M19.90 Unspecified osteoarthritis, unspecified site; H91.90 Unspecified hearing loss, unspecified ear; H40.9 Unspecified glaucoma; F10.21 Alcohol dependence, in remission; F41.9 Anxiety disorder, unspecified; Z86.73 Personal history of transient ischemic attack (TIA), and cerebral infarction without residual deficits; Z85.828 Personal history of other malignant neoplasm of skin; Z87.891 Personal history of nicotine dependence; Z88.0 Allergy status to penicillin; Z88.1 Allergy status to other antibiotic agents; Z88.2 Allergy status to sulfonamides
CPT/HCPCS: 20610; 47531; 71010; 77002; 80048; 80053; 80076; 81001; 82140; 82272; 82607; 84425; 85025; 85027; 85652; 86140; 87015; 87070; 87086; 87102; 87116; 87205; 87206; 87493; 87640; 87641; 89051; 89060; 93306; 94150; J0131; J1580; J1650; J1940; J2020; J2270; J2405; J3010; J7030; L1830; Q9967

== ENCOUNTER 2017-03-02 14:10 | Inpatient (IN) | payer MEDICARE, OTHER ==
[~2017-03-02] VITALS: Ht 165.1 cm; Wt 79.0 kg
[2017-03-02] VITALS (8 sets, daily range): BP systolic 112–164; BP diastolic 55–74; PULSE 63–69; RESP 16–28; TEMP 97.9–98.3; O2SAT 94–99
[~2017-03-02 14:10] MED LIST changes: -AMBI10TA PO; +AMBI5TAB PO; +ATOR40TA16 PO; -CARV3.125 PO; +CARV6.252 PO; -CELE20TA PO; +CITA40TA4 PO; -CLON.1 PO; -CLOT1CRE6 TOPICAL; -CYCL1TAB29 PO; +FERR325T PO; -HYDR-3516 PO; +HYDR-3583 PO; -HYDR50TA15 PO; -IPRASOL NEB; -LEVA750T PO; -NEUR400C PO; -ONDA4TAB7 PO; +SPIR25TA PO; -hydrALAZINE PO
--- NOTE | 2017-03-02 14:37 | PD ---
HPI Chief Complaint: Fever Time Seen by Provider: 14:37 Travel History International Travel<30 days: No Contact w/Intl Traveler<30days: No Traveled to known affect area: No History of Present Illness HPI 71-year-old male presents to emergency department presenting from his doctor's office with question of possible pneumonia and sepsis. Patient has history of protracted hospitalization for recent CVA, and cellulitis of the left lower extremity followed by rehabilitation. Patient just returned from the hospital possibly 2 weeks ago. Patient has had increasing cough, decreased appetite, and fever reportedly at 102.4 this morning reported by his . Patient has chronic cough from COPD. He uses Advair, Symbicort, and occasionally a nebulizer. Patient denies chest pain, nausea, vomiting, or abdominal pain. He has chills. Temperature in triage was 98.7. Patient was reportedly tachycardic and hypertensive at the doctor's office. Currently his vitals are stable. Patient has history of MRSA. He has multiple allergies to medications including Bactrim, Ceftin, Demerol, Flagyl, morphine, penicillin, Percocet, mycins, and surgical tape. The patient is an MRI precaution. PFSH Past Medical History Arthritis: Yes Asthma: No Autoimmune Disease: No Anxiety: No Depression: Yes Heart Rhythm Problems: No Cancer: Yes (skin cancer -scalp) Cardiovascular Problems: Yes High Cholesterol: Yes Chemotherapy: No Chest Pain: No Congestive Heart Failure: No COPD: Yes Cerebrovascular Accident: Yes Dementia: Yes (MILD ) Diabetes: No (pt states not a diabetic) Diminished Hearing: Yes (BILATERAL HEARING AIDS) Endocrine: Yes GERD: No Genitourinary: Yes Hiatal Hernia: No Hypertension: Yes Immune Disorder: No Kidney Stones: Yes Musculoskeletal: Yes Neurologic: Yes Psychiatric: Yes (mild dementia) Reproductive: No Respiratory: Yes (COPD) Migraines: No Pancreatitis: Yes Radiation Therapy: No Renal Failure: No Seizures: No Sickle Cell Disease: No Sleep Apnea: No Thyroid Disease: No Ulcer: No Past Surgical History Abdominal Surgery: Yes (appendectomy) AICD: No Appendectomy: Yes Arteriovenous Shunt: No Body Medical Devices: penile implant Cardiac Surgery: Yes (right endarectomy) Ear Surgery: No Endocrine Surgery: No Eye Surgery: Yes (L/R EYE CATARACT REMOVAL ) Genitourinary Surgery: Yes (lithotripsy) Gynecologic Surgery: No Insulin Pump: No Joint Replacement: No Oral Surgery: Yes (mouth abscess ) Pacemaker: Yes (in bladder) Thoracic Surgery: No Social History Alcohol Use: No Tobacco Use: No Substance Use: No Allergies-Medications (Allergen,Severity, Reaction): Coded Allergies: Bactrim (Verified Allergy, Severe, Anaphylaxis, 03/02/17) Ceftin (Verified Allergy, Severe, Anaphylaxis, 03/02/17) Flagyl (Verified Allergy, Severe, Fever, colitis, 03/02/17) Penicillin (Verified Allergy, Severe, Anaphylaxis, 03/02/17) Sulfa (Verified Allergy, Severe, Anaphylaxis, 03/02/17) MRI PRECAUTION (Verified Adverse Reaction, Severe, BLADDER STIMULATOR, ) BRAIN ONLY ON RECEIVE ONLY COIL, P.O. 01/11/17, DML *MDRO Multi-Drug Resistant Organism (Verified Adverse Reaction, Unknown, MRSA, 03/02/17) MRSA PCR (nares) POSITIVE - 01/11/17 Demerol (Verified Adverse Reaction, Unknown, Psychosis, 03/02/17) Morphine (Verified Adverse Reaction, Unknown, Psychosis, 03/02/17) Percocet (Verified Adverse Reaction, Unknown, Psychosis, 03/02/17) Uncoded Allergies: mycins (Allergy, Severe, Fever, colitis, 12/15/13) surgical tape (Allergy, Severe, 12/15/13) Reported Meds & Prescriptions Reported Meds & Active Scripts Active Spironolactone 25 Mg Tab 25 Mg PO DAILY Citalopram (Citalopram Hydrobromide) 40 Mg Tab 40 Mg PO DAILY Carvedilol 6.25 Mg Tab 6.25 Mg PO BID Atorvastatin (Atorvastatin Calcium) 40 Mg Tab 40 Mg PO HS Ferrous Sulfate 325 Mg Tab 325 Mg PO BID Pantoprazole (Pantoprazole Sodium) 40 Mg Tab 40 Mg PO BID Hydrocodone-Acetaminophen 10-325 mg Tab 1 Tab PO Q4H PRN Ambien (Zolpidem Tartrate) 5 Mg Tab 5 Mg PO HS PRN Acidophilus/l-Sporogenes (Lactobacillus Acidophilus) 1 Tab Tab 1 Tab PO Q12HR 14 Days Lisinopril 40 Mg Tab 40 Mg PO HS Aspirin 81 Low Dose (Aspirin) 81 Mg Chew 81 Mg CHEW DAILY Advair Diskus Inh (Fluticasone-Salmeterol Inh) 250-50 Mcg/Blist Aer 1 Puff INH BID Rinse mouth after use. Travatan Z Opth Drops (Travoprost) 0.004 % Soln 1 Drop EACH EYE HS Donepezil 10 Mg Tab 10 Mg PO HS Diltiazem CD 24 HR 240 Mg Caper 480 Mg PO HS Commode 3-in-1 (Device) 1 Mis Mis 1 Ea .ROUTE DIRECTED [Walker with seat] Ea Wheelchair (Device) 1 Mis Mis 1 Ea .ROUTE DIRECTED Reported Gabapentin 100 Mg Cap 100 Mg PO TID Review of Systems Except as stated in HPI: all other systems reviewed are Neg General / Constitutional: Positive: Fever, Chills (reported) Eyes: No: Visual changes HENT: No: Headaches Cardiovascular: No: Chest Pain or Discomfort Respiratory: Positive: Cough, Shortness of Breath, Wheezing, No: Sneezing, Orthopnea, Hemoptysis, Stridor, Night Sweats, Pleuritic Pain Gastrointestinal: No: Nausea, Vomiting, Diarrhea, Abdominal Pain Genitourinary: No: Dysuria Musculoskeletal: No: Pain Skin: No Rash Neurologic: No: Weakness Psychiatric: No: Depression Endocrine: No: Polydipsia Hematologic/Lymphatic: No: Easy Bruising Physical Exam Narrative GENERAL: Patient appears in mild distress. SKIN: Warm and dry. Mild pallor. Normal turgor. HEAD: Atraumatic. Normocephalic. EYES: Pupils equal and round. No scleral icterus. No injection or drainage. ENT: No nasal bleeding or discharge. Mucous membranes pink and moist. Pharynx is normal. TMs are clear bilaterally. No sinus congestion or tenderness. NECK: Trachea midline. No JVD. Neck is supple and nontender. CARDIOVASCULAR: Regular rate and rhythm. No murmurs gallops or rubs. RESPIRATORY: No accessory muscle use. Diffuse wheezes and rhonchi bilaterally to auscultation. Breath sounds equal bilaterally. GASTROINTESTINAL: Abdomen soft, non-tender, nondistended. Hepatic and splenic margins not palpable. MUSCULOSKELETAL: Extremities without clubbing, cyanosis, or edema. No obvious deformities. NEUROLOGICAL: Awake and alert. No obvious cranial nerve deficits. Motor grossly within normal limits. Five out of 5 muscle strength in the arms and legs. Normal speech. PSYCHIATRIC: Appropriate mood and affect; insight and judgment normal. Data Data Last Documented VS Vital Signs Date Time Temp Pulse Resp B/P Pulse Ox O2 Delivery O2 Flow Rate FiO2 4/17/17 15:17 96 21 03/02/17 14:39 Room Air 03/02/17 14:32 63 24 03/02/17 14:32 112/56 03/02/17 14:14 97.9 Orders Complete Blood Count With Diff (03/02/17 14:34) Comprehensive Metabolic Panel (03/02/17 14:34) B-Type Natriuretic Peptide (03/02/17 14:34) Act Partial Throm Time (Ptt) (03/02/17 14:34) Prothrombin Time / Inr (Pt) (03/02/17 14:34) Magnesium (Mg) (03/02/17 14:34) Ckmb (Isoenzyme) Profile (03/02/17 14:34) Troponin I (03/02/17 14:34) Influenzae A/B Antigen (03/02/17 14:34) Blood Culture (03/02/17 14:34) Iv Access Insert/Monitor (03/02/17 14:34) Electrocardiogram (03/02/17 14:34) Ecg Monitoring (03/02/17 14:34) Oximetry (03/02/17 14:34) Oxygen Administration (03/02/17 14:34) Chest, Pa & Lat (03/02/17 14:34) Sodium Chloride 0.9% Flush (Ns Flush) (03/02/17 14:45) Methylprednisolone So Succ Inj (Solumedr (03/02/17 14:45) Albuterol-Ipratropium Neb (Duoneb Neb) (03/02/17 14:45) Lactic Acid (03/02/17 14:34) Piperacil-Tazo 4.5 Gm Premix (Zosyn 4.5 (03/02/17 15:41) Azithromycin Inj (Zithromax Inj) (03/02/17 15:41) Levofloxacin 750 Mg Premix Inj (Levaquin (03/02/17 16:00) Admit Order (Ed Use Only) (03/02/17 16:30) Labs Laboratory Tests Test 03/02/17 15:00 Prothrombin Time 10.7 SEC Prothromb Time International 1.0 RATIO Ratio Activated Partial 24.3 SEC Thromboplast Time Sodium Level 141 MEQ/L Potassium Level 4.2 MEQ/L Chloride Level 106 MEQ/L Carbon Dioxide Level 23.8 MEQ/L Anion Gap 11 MEQ/L Blood Urea Nitrogen 20 MG/DL Creatinine 1.32 MG/DL Estimat Glomerular Filtration 53 ML/MIN Rate Random Glucose 169 MG/DL Lactic Acid Level 3.4 mmol/L Calcium Level 9.4 MG/DL Magnesium Level 1.7 MG/DL Total Bilirubin 0.5 MG/DL Aspartate Amino Transf 23 U/L (AST/SGOT) Alanine Aminotransferase 17 U/L (ALT/SGPT) Alkaline Phosphatase 135 U/L Total Creatine Kinase 53 U/L Troponin I LESS THAN 0.02 NG/ML B-Type Natriuretic Peptide 163 PG/ML Total Protein 7.8 GM/DL Albumin 3.1 GM/DL [facility] Medical Decision Making Medical Screen Exam Complete: Yes Emergency Medical Condition: Yes Medical Record Reviewed: Yes Differential Diagnosis Wheezing. Aspiration pneumonia. Bronchitis. COPD with exacerbation. Narrative Course Patient is medically stable at time of exam. EKG is ordered. Labs ordered including CBC, CMP, lactic acid, blood cultures 2 and influenza AB.. Cardiac panel is ordered as well, Including BNP. IV access is obtained patient is given 125 mg Solu-Medrol IV. Chest x-ray PA and lateral is ordered. Patient is given DuoNeb one every 15 minutes 3. Chest x-ray is read as a left lower lobe pneumonia. Lactic acid is elevated at 3.4. CMP is unremarkable except for BUN of 20, creatinine 1.32, random glucose 169. Alkaline phosphatase 135. Troponin is less than 0.02. BNP is 163. IV Zosyn 4.5 g is ordered as well as 500 mg azithromycin IV. Call was placed to the hospitalist for admission. 1610 hrs. patient was discussed with the hospitalist and patient is admitted. Diagnosis Primary Impression: Pneumonia Qualified Code: J18.1 - Pneumonia of left lower lobe due to infectious organism Additional Impression: Elevated lactic acid level Admitting Information Admitting Physician Requests: Admit Condition: Stable Sin Carranza Mar 02, 2017 14:37
[2017-03-02] MEDS ORDERED: SODIUM CHLORIDE 0.9% FLUSH 10 ML FLUSH IVF PRN (14:45)
[2017-03-02] MEDS ORDERED: methylPREDNISolone SOD SUCC 125 MG/2 ML VIAL IVP ONE (14:45)
[2017-03-02] MEDS: RESP: ALBUTEROL 2.5 MG/IPRATROPIUM 0.5 MG NEB (SCH) INH (15:13)
--- NOTE | 2017-03-02 15:16 | RADRPT ---
EXAM DATE/TIME: 03/02/2017 14:53 [facility] COMPARISON: CHEST SINGLE AP, January 29, 2017, 13:36. INDICATIONS : Shortness of breath. MEDICAL HISTORY : Hypertension. Chronic obstructive pulmonary disease. Rib fractures. SURGICAL HISTORY : None. ENCOUNTER: Initial ACUITY: 1 day PAIN SCORE: 0/10 LOCATION: Bilateral chest FINDINGS: There is airspace consolidation left lower lobe posteriorly. Heart and mediastinum are unremarkable f or technique. CONCLUSION: Left lower lobe pneumonia. Serina Willis MD on March 02, 2017 at 15:13 Board Certified Radiologist. This report was verified electronically.
[2017-03-02 15:35] LABS: APTT (PATIENT) 24.3 SEC (24.3-30.1); PROTHROMBIN TIME - PATIENT 10.7 SEC (9.8-11.6)
[2017-03-02 15:40] LABS: ALKALINE PHOSPHATASE 135 U/L (45-117); ALT (GPT) 17 U/L (12-78); ANION GAP 11 MEQ/L (5-15); AST (GOT) 23 U/L (15-37); BICARBONATE 23.8 MEQ/L (21.0-32.0); BLOOD UREA NITROGEN 20 MG/DL (7-18); CHLORIDE 106 MEQ/L (98-107); GLOMERULAR FILTRATION RATE 53 ML/MIN (>89); MAGNESIUM 1.7 MG/DL (1.5-2.5); SODIUM (NA) 141 MEQ/L (136-145); TOTAL BILIRUBIN ADULT 0.5 MG/DL (0.2-1.0)
[2017-03-02 15:41] LABS: CREATINE KINASE 53 U/L (39-308); POTASSIUM 4.2 MEQ/L (3.5-5.1)
[2017-03-02] MEDS ORDERED: PIPERACIL-TAZO 4.5 GM PREMIX 100 ML IV STA (15:41)
[2017-03-02] MEDS ORDERED: AZITHROMYCIN INJ 500 MG in SODIUM CHLOR 0.9% 250 ML INJ 250 ML IV STA (15:41)
[2017-03-02] MEDS ORDERED: GABA100C4 PO (15:54)
[2017-03-02] MEDS ORDERED: LEVOFLOXACIN 750 MG PREMIX INJ 150 ML IV ONE (16:00)
--- NOTE | 2017-03-02 16:46 | PD ---
Data Data Last Documented VS Vital Signs Date Time Temp Pulse Resp B/P Pulse Ox O2 Delivery O2 Flow Rate FiO2 03/02/17 16:39 67 16 129/62 95 Room Air 03/02/17 15:17 21 03/02/17 14:14 97.9 Orders Complete Blood Count With Diff (03/02/17 14:34) Comprehensive Metabolic Panel (03/02/17 14:34) B-Type Natriuretic Peptide (03/02/17 14:34) Act Partial Throm Time (Ptt) (03/02/17 14:34) Prothrombin Time / Inr (Pt) (03/02/17 14:34) Magnesium (Mg) (03/02/17 14:34) Ckmb (Isoenzyme) Profile (03/02/17 14:34) Troponin I (03/02/17 14:34) Influenzae A/B Antigen (03/02/17 14:34) Blood Culture (03/02/17 14:34) Iv Access Insert/Monitor (03/02/17 14:34) Electrocardiogram (03/02/17 14:34) Ecg Monitoring (03/02/17 14:34) Oximetry (03/02/17 14:34) Oxygen Administration (03/02/17 14:34) Chest, Pa & Lat (03/02/17 14:34) Sodium Chloride 0.9% Flush (Ns Flush) (03/02/17 14:45) Methylprednisolone So Succ Inj (Solumedr (03/02/17 14:45) Albuterol-Ipratropium Neb (Duoneb Neb) (03/02/17 14:45) Lactic Acid (03/02/17 14:34) Piperacil-Tazo 4.5 Gm Premix (Zosyn 4.5 (03/02/17 15:41) Azithromycin Inj (Zithromax Inj) (03/02/17 15:41) Levofloxacin 750 Mg Premix Inj (Levaquin (03/02/17 16:00) Admit Order (Ed Use Only) (03/02/17 16:30) Labs Laboratory Tests Test 03/02/17 15:00 Prothrombin Time 10.7 SEC Prothromb Time International 1.0 RATIO Ratio Activated Partial 24.3 SEC Thromboplast Time Sodium Level 141 MEQ/L Potassium Level 4.2 MEQ/L Chloride Level 106 MEQ/L Carbon Dioxide Level 23.8 MEQ/L Anion Gap 11 MEQ/L Blood Urea Nitrogen 20 MG/DL Creatinine 1.32 MG/DL Estimat Glomerular Filtration 53 ML/MIN Rate Random Glucose 169 MG/DL Lactic Acid Level 3.4 mmol/L Calcium Level 9.4 MG/DL Magnesium Level 1.7 MG/DL Total Bilirubin 0.5 MG/DL Aspartate Amino Transf 23 U/L (AST/SGOT) Alanine Aminotransferase 17 U/L (ALT/SGPT) Alkaline Phosphatase 135 U/L Total Creatine Kinase 53 U/L Troponin I LESS THAN 0.02 NG/ML B-Type Natriuretic Peptide 163 PG/ML Total Protein 7.8 GM/DL Albumin 3.1 GM/DL MDM Supervised Visit with MECCA: Yes Narrative Course The history, exam, and medical decision-making in the associated mid-level provider note were completed with my assistance. I reviewed and agree with the findings presented. I attest that I had a [id number] encounter with the patient on the same day, and personally performed and documented my assessment and findings in the medical record. *My assessment and Findings: 71-year-old man, multiple medical problems, recent protracted hospitalizations, here with fever, chest congestion, feeling little bit poorly. Symptoms seem to start today. He really doesn't feel all that bad. States he been treated for pneumonia in the past with COPD but not for a while. Reviewed recent inpatient records. Workup today suggest acute pneumonia. Concern for sepsis. Patient was given antibiotics, fluids, will be admitted. Diagnosis Primary Impression: Pneumonia Qualified Code: J18.1 - Pneumonia of left lower lobe due to infectious organism Additional Impression: Elevated lactic acid level Condition: Stable Jose Luis Bourne MD Mar 02, 2017 16:46
[2017-03-02] MEDS ORDERED: SODIUM CHLORID 0.9% 500 ML INJ 500 ML IV ONE (17:00)
[2017-03-02 17:27] LABS: AUTOMATED NEUTROPHIL # 12.6 TH/MM3 (1.8-7.7); BASOPHIL % 0.2 % (0.0-2.0); EOSINOPHIL # 0.1 TH/MM3 (0-0.4); EOSINOPHIL % 0.4 % (0.0-4.0); HEMATOCRIT 31.8 % (39.0-51.0); HEMO FLAGS DIFF FINAL; LYMPH % 6.4 % (9.0-44.0); LYMPHOCYTE # 0.9 TH/MM3 (1.0-4.8); MEAN CELL VOLUME 83.1 FL (80.0-100.0); MEAN CORPUSCULAR HEMOGLOBIN 26.2 PG (27.0-34.0); MEAN CORPUSCULAR HGB CONC 31.5 % (32.0-36.0); MONO % 6.8 % (0.0-8.0); NEUT % 86.2 % (16.0-70.0); PLATELET COUNT 332 TH/MM3 (150-450); RED BLOOD COUNT 3.83 MIL/MM3 (4.50-5.90); RED CELL DISTRIBUTION WIDTH 20.9 % (11.6-17.2); WHITE BLOOD COUNT 14.7 TH/MM3 (4.0-11.0)
[2017-03-02] MEDS ORDERED: SODIUM CHLORIDE 0.9% FLUSH 10 ML FLUSH IV FLUSH PRN (17:45)
[2017-03-02] MEDS ORDERED: ONDANSETRON HCL 4 MG/2 ML VIAL IV PRN (17:45)
[2017-03-02] MEDS ORDERED: VANCOMYCIN INJ 1,000 MG in SODIUM CHLOR 0.9% 250 ML INJ 250 ML IV ONE (17:45)
[2017-03-02] MEDS ORDERED: ACETAMINOPHEN/HYDROcodone 325 MG/10 MG TAB PO PRN (17:45)
[2017-03-02] MEDS ORDERED: ZOLPIDEM TARTRATE 5 MG TAB PO PRN (17:45)
[2017-03-02] MEDS ORDERED: ACETAMINOPHEN 325 MG TAB PO PRN (17:45)
[2017-03-02] MEDS ORDERED: hydrALAZINE HCL 20 MG/ML VIAL IV PRN (18:00)
[2017-03-02] MEDS ORDERED: RESP: ALBUTEROL 2.5 MG/3 ML NEB (PRN) NEB (18:00)
--- NOTE | 2017-03-02 18:04 | EKG ---
Date Performed: 03/02/2017 Time Performed: 16:08:25 PTAGE: 71 years EKG: Sinus rhythm WITH FIRST DEGREE AV BLOCK RIGHT BUNDLE BRANCH BLOCK ABNORMAL ECG COMPARED TO PRIOR ELECTROCARDIOGRA M, Probably no significant change although prior electrocardiogram has significant artifact. PREVIOUS TRACING : 01/11/2017 02.07 DOCTOR: Peña Stone Interpretating Date/Time 03/02/2017 18:03:23
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
[2017-03-02] MEDS ORDERED: DEXTROSE 50% IN WATER 50 ML VIAL(D50) IV PUSH PRN (18:30)
[2017-03-02] MEDS ORDERED: GLUCAGON 1 MG/ML VIAL OTHER PRN (18:30)
[2017-03-02] MEDS: GABAPENTIN 100 MG CAP PO SCH (18:49)
[2017-03-02] MEDS: SODIUM CHLOR 0.9% 1000 ML INJ 1,000 ML IV SCH (18:50)
[2017-03-02] MEDS ORDERED: BENZONATATE 100 MG CAP PO PRN (19:15)
[2017-03-02] MEDS: CARVEDILOL 6.25 MG TAB PO SCH (20:36)
[2017-03-02] MEDS: PANTOPRAZOLE SOD 40 MG DELAYED RELEASE TAB PO SCH (20:36)
[2017-03-02] MEDS: BUDESONIDE-FORMOTEROL 160/4.5 MCG INHALER INH SCH (21:00)
[2017-03-02] MEDS ORDERED: DONEPEZIL HCL 5 MG TAB PO SCH (21:00)
[2017-03-02] MEDS: INSULIN ASPART SUPPLEMENTAL SCALE SQ SCH (21:00)
[2017-03-02] MEDS ORDERED: DILTIAZEM-CD 240 MG CAP ER PO SCH (21:00)
[2017-03-02] MEDS ORDERED: DOCUSATE SODIUM 50 MG/SENNA 8.6 MG TAB PO SCH (21:00)
[2017-03-02] MEDS ORDERED: LISINOPRIL 20 MG TAB PO SCH (21:00)
[2017-03-02] MEDS ORDERED: ATORVASTATIN 40 MG TAB PO SCH (21:00)
[2017-03-02] MEDS: guaiFENesin E.R. 600 MG TAB PO SCH (21:07)
[2017-03-02] MEDS: SODIUM CHLORIDE 0.9% FLUSH 10 ML FLUSH IV FLUSH SCH (21:07)
[2017-03-02] MEDS: HEPARIN SODIUM - SQ 10,000 UNITS/ML VIAL SQ SCH (21:08)
[2017-03-02] MEDS: RESP: ALBUTEROL 2.5 MG/IPRATROPIUM 0.5 MG NEB (PRN) INH (21:45)
[2017-03-02] MEDS: RESP: ALBUTEROL 2.5 MG/IPRATROPIUM 0.5 MG NEB (SCH) NEB (21:45)
[2017-03-03 00:45] VITALS: BP 120/56; PULSE 68; RESP 20; O2SAT 92
[2017-03-03] MEDS ORDERED: methylPREDNISolone SOD SUCC 40 MG/1 ML VIAL IV SCH (03:00)
[2017-03-03] MEDS: RESP: ALBUTEROL 2.5 MG/IPRATROPIUM 0.5 MG NEB (SCH) NEB ×2 (03:06→09:46)
[2017-03-03] MEDS: RESP: ALBUTEROL 2.5 MG/IPRATROPIUM 0.5 MG NEB (PRN) INH (03:06)
[2017-03-03] MEDS: SODIUM CHLOR 0.9% 1000 ML INJ 1,000 ML IV SCH (03:31)
[2017-03-03 04:39] VITALS: BP 172/74; PULSE 70; RESP 20; TEMP 97; O2SAT 93
[2017-03-03] MEDS: HEPARIN SODIUM - SQ 10,000 UNITS/ML VIAL SQ SCH (06:00)
[2017-03-03] MEDS: INSULIN ASPART SUPPLEMENTAL SCALE SQ SCH ×2 (06:28→11:00)
[2017-03-03 07:22] LABS: AUTOMATED NEUTROPHIL # 10.8 TH/MM3 (1.8-7.7); BASOPHIL % 0.1 % (0.0-2.0); HEMATOCRIT 28.8 % (39.0-51.0); HEMO FLAGS DIFF FINAL; LYMPH % 4.8 % (9.0-44.0); LYMPHOCYTE # 0.6 TH/MM3 (1.0-4.8); MEAN CELL VOLUME 83.1 FL (80.0-100.0); MEAN CORPUSCULAR HEMOGLOBIN 26.9 PG (27.0-34.0); MEAN CORPUSCULAR HGB CONC 32.4 % (32.0-36.0); MONO % 2.3 % (0.0-8.0); NEUT % 92.8 % (16.0-70.0); PLATELET COUNT 326 TH/MM3 (150-450); RED BLOOD COUNT 3.46 MIL/MM3 (4.50-5.90); WHITE BLOOD COUNT 11.6 TH/MM3 (4.0-11.0)
[2017-03-03 07:43] LABS: BICARBONATE 23.5 MEQ/L (21.0-32.0); POTASSIUM 3.8 MEQ/L (3.5-5.1)
[2017-03-03 08:10] VITALS: BP 167/81; PULSE 75; RESP 18; TEMP 98.3; O2SAT 94
[2017-03-03] MEDS: GABAPENTIN 100 MG CAP PO SCH (08:56)
[2017-03-03] MEDS: CARVEDILOL 6.25 MG TAB PO SCH (08:56)
[2017-03-03] MEDS: SODIUM CHLORIDE 0.9% FLUSH 10 ML FLUSH IV FLUSH SCH (08:56)
[2017-03-03] MEDS: guaiFENesin E.R. 600 MG TAB PO SCH (08:56)
[2017-03-03] MEDS: BUDESONIDE-FORMOTEROL 160/4.5 MCG INHALER INH SCH (08:56)
[2017-03-03] MEDS: PANTOPRAZOLE SOD 40 MG DELAYED RELEASE TAB PO SCH (08:56)
[2017-03-03] MEDS ORDERED: SPIRONOLACTONE 25 MG TAB PO SCH (09:00)
[2017-03-03] MEDS ORDERED: ASPIRIN 81 MG CHEW TAB CHEW SCH (09:00)
[2017-03-03] MEDS ORDERED: CITALOPRAM HYDROBROMIDE 40 MG TAB PO SCH (09:00)
[2017-03-03 09:47] VITALS: O2SAT 98
[2017-03-03] MEDS ORDERED: LEVO750T33 PO (11:01)
[2017-03-03] MEDS ORDERED: PRED20 PO (11:01)
--- NOTE | 2017-03-03 11:03 | HHI.DCPOC ---
Discharge Care Plan Diagnosis: (1) COPD (chronic obstructive pulmonary disease) (2) Pneumonia Goals to Promote Your Health * To prevent worsening of your condition and complications * To maintain your health at the optimal level Directions to Meet Your Goals Take your medications as prescribed Follow your dietary instruction Follow activity as directed Keep your appointments as scheduled Take your immunizations and boosters as scheduled If your symptoms worsen call your PCP, if no PCP go to Urgent Care Center or Emergency Room Smoking is Dangerous to Your Health. Avoid second hand smoke Call the 24-hour hour crisis hotline for domestic abuse at Jermain Sanchez MD R1 Mar 03, 2017 11:03 am
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
[2017-03-03 12:24] VITALS: BP 171/75; PULSE 72; RESP 20; TEMP 98.4; O2SAT 96
[2017-03-03] MEDS ORDERED: LEVOFLOXACIN 750 MG PREMIX INJ 150 ML IV SCH (16:00)
[2017-03-03 17:23] LABS: HEMOGLOBIN A1a 0.9 %; HEMOGLOBIN A1b 1.8 %; HEMOGLOBIN LA1C 4.1 %
--- NOTE | 2017-03-05 14:44 | PQ ---
Physician Query Response Document PATIENT: MIKAL GARCIA : 1945 ADMIT DATE: 03/02/2017 4:32 PM DISCH DATE: 03/03/2017 2:25 PM RESPONDING PROVIDER #: Annamaria QUERY TEXT: Sepsis Query Based on your medical judgement, can you further clarify the folowiin. Sepsis (SIRS due to an infection) 2. Sepsis with Organ Dysfunction 3. A localized Infection only 4. Another condition - please specify 5. Unable to determine - please explain. Depending on your selection above, please indicate one of the below if applicable: - Sepsis was present on Admission - Sepsis developed after admission Your prompt response is appreciated, please do not hesitate to contact the CDI/Coding Hotline with an y questions, comments and/or concerns you may have at ext. [phone]. The patient's Clinical Indicators include: ADMIT AND DISCHARGE DIAGNOSES OF PNEUMONIA AND BILLY "PATIENT MEETS SEPSIS CRITERIA", with elevated WBC, resp rate of 28, lactic acid of 3.4.-H Patient with only a 1 DAY STAY. BLOOD CULTURE NEGATIVE WBC 14.7-03/02, 11.6- 03/03 TEMP: 03/02-97.9, 98.3, 98.2 RESP RATE: 03/02-28, 16, 18 LACTIC ACID 03/02-3.4 AT 15:00, 1.8 AT 19:00 Query created by: Cassy Tang on 03/04/2017 1:25 PM RESPONSE TEXT: Mr Garcia had pneumonia and sepsis resulted from that Electronically signed by: Alfreda Jacome MD 03/05/2017 2:40 PM
[2017-03-06] MEDS ORDERED: CITA40TA4 PO (12:30)
[2017-03-26] MEDS ORDERED: CYCL1TAB29 PO (13:15)
[2017-03-30] MEDS ORDERED: GABA400C5 PO (10:30)
[2017-03-30] MEDS ORDERED: CARV6.252 PO (10:30)
[2017-03-30] MEDS ORDERED: ADVA250A INH (10:30)
[2017-03-30] MEDS ORDERED: TRAV0.00 EACH EYE (10:30)
[2017-03-30] MEDS ORDERED: CYCL1TAB29 PO (10:30)
[2017-03-30] MEDS ORDERED: SPIR25TA PO (10:30)
[2017-03-30] MEDS ORDERED: DONE10TA7 PO (10:30)
[2017-03-30] MEDS ORDERED: IPRAAER INH (10:52)
[2017-03-30] MEDS ORDERED: ADVA500A INH ×2 (10:53→10:54)
[2017-03-30] MEDS ORDERED: FLUT50SP EACH NARE (10:55)
[2017-03-30] MEDS ORDERED: AZEL1SPR2 EACH NARE (10:55)
[2017-03-30] MEDS ORDERED: PNEU25IN IM (11:01)
[2017-04-10] MEDS ORDERED: PRED50 PO (10:21)
[2017-04-10] MEDS ORDERED: ALBU0.08 NEB (10:21)
[2017-04-10] MEDS ORDERED: LEVO750T3 PO (10:21)
== END 2017-03-03 14:25 | disposition home or self-care (01) | DRG 871 ==
LOC: NEPC 14:10 → NEDA 16:32 → NEPGCP 20:44
PROVIDERS: ADMIT Family Medicine; ATTEND Family Medicine
DX: A41.9 Sepsis, unspecified organism (principal); J18.9 Pneumonia, unspecified organism; N17.9 Acute kidney failure, unspecified; I11.0 Hypertensive heart disease with heart failure; I50.9 Heart failure, unspecified; F03.90 Unspecified dementia, unspecified severity, without behavioral disturbance, psychotic disturbance, mood disturbance, and anxiety; L97.529 Non-pressure chronic ulcer of other part of left foot with unspecified severity; J44.0 Chronic obstructive pulmonary disease with (acute) lower respiratory infection; H91.93 Unspecified hearing loss, bilateral; G57.93 Unspecified mononeuropathy of bilateral lower limbs; G89.29 Other chronic pain; M25.552 Pain in left hip; L21.8 Other seborrheic dermatitis; E11.9 Type 2 diabetes mellitus without complications; E78.5 Hyperlipidemia, unspecified; H40.9 Unspecified glaucoma; M19.90 Unspecified osteoarthritis, unspecified site; M48.00 Spinal stenosis, site unspecified; F10.21 Alcohol dependence, in remission; F32.9 Major depressive disorder, single episode, unspecified; Z85.828 Personal history of other malignant neoplasm of skin; Z86.14 Personal history of Methicillin resistant Staphylococcus aureus infection; Z86.73 Personal history of transient ischemic attack (TIA), and cerebral infarction without residual deficits; Z87.891 Personal history of nicotine dependence; Z88.0 Allergy status to penicillin; Z88.1 Allergy status to other antibiotic agents; Z88.2 Allergy status to sulfonamides; Z88.5 Allergy status to narcotic agent
CPT/HCPCS: 71020; 80048; 80053; 82550; 82948; 83036; 83605; 83735; 83880; 84484; 85025; 85610; 85730; 86738; 87040; 87804; 93005; 94150; 94620; 94640; 94664; 96365; 96375; J1956; J2920; J2930; J7030; J7040

== ENCOUNTER 2017-04-17 13:19 | Inpatient (IN) | payer MEDICARE, OTHER ==
[~2017-04-17] VITALS: Ht 177.8 cm; Wt 86.1 kg
[~2017-04-17 13:19] MED LIST changes: -ADVA250A INH; +ADVA500A INH; +ALBU0.08 NEB; +AZEL1SPR2 EACH NARE; -COMMODE 3-IN-11 MIS; +CYCL1TAB29 PO; +FLUT50SP EACH NARE; +GABA400C5 PO; +IPRAAER INH; +LEVO750T3 PO; -PANT40TA3 PO; +PRED50 PO; -WHEEMIS3; -Walker with seat
[2017-04-17 13:21] VITALS: BP 107/55; PULSE 78; RESP 15; TEMP 98.2; O2SAT 96
--- NOTE | 2017-04-17 13:33 | PD ---
Physical Exam Time Seen by Provider: 13:32 Narrative 71 y/o male here for evaluation of severe diarrhea, on levaquin/prednisone since last week for bronchitis. Hx of cdif colitis. Vital signs reviewed. Seen at triage desk. Awaiting bed placement. Data Data Last Documented VS Vital Signs Date Time Temp Pulse Resp B/P Pulse Ox O2 Delivery O2 Flow Rate FiO2 04/17/17 13:21 98.2 78 15 107/55 96 Orders Complete Blood Count With Diff (04/17/17 13:34) Comprehensive Metabolic Panel (04/17/17 13:34) Lipase (04/17/17 13:34) C Diff Toxin Pcr (04/17/17 13:34) Enteric Path (Stool) (04/17/17 13:34) MDM Medical Record Reviewed: Yes Supervised Visit with MECCA: Iam Copeland Apr 17, 2017 13:33
[2017-04-17 14:32] LABS: AUTOMATED NEUTROPHIL # 19.9 TH/MM3 (1.8-7.7); EOSINOPHIL # 0.1 TH/MM3 (0-0.4); EOSINOPHIL % 0.6 % (0.0-4.0); HEMATOCRIT 28.8 % (39.0-51.0); LYMPH % 3.4 % (9.0-44.0); LYMPHOCYTE # 0.8 TH/MM3 (1.0-4.8); MEAN CELL VOLUME 78.5 FL (80.0-100.0); MEAN CORPUSCULAR HEMOGLOBIN 25.7 PG (27.0-34.0); MEAN CORPUSCULAR HGB CONC 32.8 % (32.0-36.0); MONO % 7.3 % (0.0-8.0); NEUT % 88.7 % (16.0-70.0); PLATELET COUNT 361 TH/MM3 (150-450); RED BLOOD COUNT 3.67 MIL/MM3 (4.50-5.90); RED CELL DISTRIBUTION WIDTH 18.6 % (11.6-17.2); WHITE BLOOD COUNT 22.4 TH/MM3 (4.0-11.0)
[2017-04-17 14:35] LABS: HEMO FLAGS AUTO DIFF
[2017-04-17 14:37] LABS: ALT (GPT) 38 U/L (12-78); ANION GAP 9 MEQ/L (5-15); AST (GOT) 15 U/L (15-37); BICARBONATE 20.1 MEQ/L (21.0-32.0); BLOOD UREA NITROGEN 87 MG/DL (7-18); CHLORIDE 106 MEQ/L (98-107); GLOMERULAR FILTRATION RATE 36 ML/MIN (>89); POTASSIUM 5.2 MEQ/L (3.5-5.1); SODIUM (NA) 135 MEQ/L (136-145)
[2017-04-17 14:39] LABS: ALKALINE PHOSPHATASE 104 U/L (45-117); TOTAL BILIRUBIN ADULT 0.2 MG/DL (0.2-1.0)
[2017-04-17 15:00] VITALS: BP 110/60; PULSE 80; RESP 20; TEMP 98.4; O2SAT 98
[2017-04-17] MEDS ORDERED: SODIUM CHLOR 0.9% 1000 ML INJ 1,000 ML IV ONE ×2 (15:00→15:15)
--- NOTE | 2017-04-17 15:08 | PD ---
HPI Chief Complaint: GI Complaint Time Seen by Provider: 14:30 Travel History International Travel<30 days: No Contact w/Intl Traveler<30days: No Traveled to known affect area: No History of Present Illness HPI This patient has had frequent bouts of liquid runny diarrhea for 3 days. He is had C. difficile colitis multiple times. His is afraid he has got it again. No blood in stool. He has some intermittent abdominal cramping but nothing sustained. No active fevers. He's been on large quantities of antibiotics for the last 4 months. Symptoms severity is moderate. No alleviating factors. He feels weak and dehydrated. PFSH Past Medical History Arthritis: Yes Asthma: No Autoimmune Disease: No Anxiety: No Depression: Yes Heart Rhythm Problems: No Cancer: No Cardiovascular Problems: Yes High Cholesterol: No Chemotherapy: No Chest Pain: No Congestive Heart Failure: No COPD: Yes Cerebrovascular Accident: Yes Dementia: Yes (MILD ) Diabetes: Yes Patient Takes Glucophage: No Diminished Hearing: Yes (BILATERAL HEARING AIDS) Endocrine: Yes Gastrointestinal Disorders: Yes GERD: No Genitourinary: No Headaches: No Hiatal Hernia: No Heparin Induced Thrombocytopen: No Hypertension: Yes Immune Disorder: No Implanted Vascular Access Dvce: Yes Kidney Stones: Yes Musculoskeletal: No Neurologic: No Psychiatric: No Reproductive: No Respiratory: Yes Migraines: No Pancreatitis: Yes Radiation Therapy: No Renal Failure: No Seizures: No Sickle Cell Disease: No Sleep Apnea: No Thyroid Disease: No Ulcer: No Past Surgical History Abdominal Surgery: Yes (appendectomy) AICD: No Appendectomy: Yes Arteriovenous Shunt: No Body Medical Devices: penile implant Cardiac Surgery: Yes (right endarectomy) Ear Surgery: No Endocrine Surgery: No Eye Surgery: Yes (L/R EYE CATARACT REMOVAL ) Genitourinary Surgery: Yes (lithotripsy) Gynecologic Surgery: No Insulin Pump: No Joint Replacement: No Neurologic Surgery: No Oral Surgery: Yes (mouth abscess ) Pacemaker: Yes (in bladder) Thoracic Surgery: No Other Surgery: Yes Social History Alcohol Use: No Tobacco Use: No Substance Use: No Allergies-Medications (Allergen,Severity, Reaction): Coded Allergies: Bactrim (Verified Allergy, Severe, Anaphylaxis, 04/10/17) Ceftin (Verified Allergy, Severe, Anaphylaxis, 04/10/17) Flagyl (Verified Allergy, Severe, Fever, colitis, 04/10/17) Penicillin (Verified Allergy, Severe, Anaphylaxis, 04/10/17) Sulfa (Verified Allergy, Severe, Anaphylaxis, 04/10/17) MRI PRECAUTION (Verified Adverse Reaction, Severe, BLADDER STIMULATOR, ) BRAIN ONLY ON RECEIVE ONLY COIL, P.O. 01/11/17, DML *MDRO Multi-Drug Resistant Organism (Verified Adverse Reaction, Unknown, MRSA, 04/10/17) MRSA PCR (nares) POSITIVE - 01/11/17 Demerol (Verified Adverse Reaction, Unknown, Psychosis, 04/10/17) Morphine (Verified Adverse Reaction, Unknown, Psychosis, 04/10/17) Percocet (Verified Adverse Reaction, Unknown, Psychosis, 04/10/17) Uncoded Allergies: mycins (Allergy, Severe, Fever, colitis, 12/15/13) surgical tape (Allergy, Severe, 12/15/13) Reported Meds & Prescriptions Reported Meds & Active Scripts Active Albuterol Neb (Albuterol Sulfate) 2.5 Mg/3 Ml Neb 2.5 Mg NEB Q4HR NEB PRN Levofloxacin 750 Mg Tablet 750 Mg PO DAILY Prednisone 50 Mg Tab 50 Mg PO DAILY Azelastine Nasal Longs (Azelastine HCl) 0.1% Longs 1 Longs EACH NARE BID Fluticasone Nasal Longs 50 Mcg/Act Naspr 100 Mcg EACH NARE BID 50 mcg/spray Advair Diskus Inh (Fluticasone-Salmeterol Inh) 500-50 Mcg/Blist Aer 1 Puff INH BID Rinse mouth after use. Combivent Respimat Inh (Ipratropium-Albuterol Inh) 20-100 Assisted/Act Aero 1 Puff INH QID Flexeril (Cyclobenzaprine HCl) 10 Mg Tab 10 Mg PO TID Gabapentin 400 Mg Cap 400 Cap PO HS Spironolactone 25 Mg Tab 25 Mg PO DAILY Carvedilol 6.25 Mg Tab 6.25 Mg PO BID Travatan Z Opth Drops (Travoprost) 0.004 % Soln 1 Drop EACH EYE HS Donepezil 10 Mg Tab 10 Mg PO HS Citalopram (Citalopram Hydrobromide) 40 Mg Tab 60 Mg PO DAILY Please take 1.5 pills daily Atorvastatin (Atorvastatin Calcium) 40 Mg Tab 40 Mg PO HS Ferrous Sulfate 325 Mg Tab 325 Mg PO BID Hydrocodone-Acetaminophen 10-325 mg Tab 1 Tab PO Q4H PRN Ambien (Zolpidem Tartrate) 5 Mg Tab 5 Mg PO HS PRN Acidophilus/l-Sporogenes (Lactobacillus Acidophilus) 1 Tab Tab 1 Tab PO Q12HR 14 Days Lisinopril 40 Mg Tab 40 Mg PO HS Aspirin 81 Low Dose (Aspirin) 81 Mg Chew 81 Mg CHEW DAILY Diltiazem CD 24 HR 240 Mg Caper 480 Mg PO HS Review of Systems General / Constitutional: No: Fever Eyes: No: Visual changes HENT: No: Headaches Cardiovascular: No: Chest Pain or Discomfort Respiratory: No: Shortness of Breath Gastrointestinal: Positive: Diarrhea, Abdominal Pain Genitourinary: No: Dysuria Musculoskeletal: Positive: Weakness, No: Pain Skin: No Rash Neurologic: Positive: Weakness Psychiatric: No: Depression Endocrine: No: Polydipsia Hematologic/Lymphatic: No: Easy Bruising Physical Exam Narrative GENERAL: Well-nourished, well-developed patient in no apparent distress. SKIN: Focused skin assessment reveals no rash and nodules. Skin is Warm and dry. HEAD: Atraumatic. Normocephalic. EYES: Pupils equal and round. No scleral icterus. No injection or drainage. ENT: No nasal bleeding or discharge. Mucous membranes pink and dry appearing . NECK: Trachea midline. No JVD. CARDIOVASCULAR: Regular rate and rhythm. No murmur appreciated. RESPIRATORY: No accessory muscle use. Clear to auscultation. Breath sounds equal bilaterally. GASTROINTESTINAL: Abdomen soft, non-tender, nondistended. Hepatic and splenic margins not palpable. MUSCULOSKELETAL: No obvious deformities. No clubbing. No cyanosis. No edema. NEUROLOGICAL: Awake and alert. No obvious cranial nerve deficits. Motor grossly within normal limits. Normal speech. PSYCHIATRIC: Appropriate mood and affect; insight and judgment reduced from dementia. Data Data Last Documented VS Vital Signs Date Time Temp Pulse Resp B/P Pulse Ox O2 Delivery O2 Flow Rate FiO2 04/17/17 13:21 98.2 78 15 107/55 96 Orders Complete Blood Count With Diff (04/17/17 13:34) Comprehensive Metabolic Panel (04/17/17 13:34) Lipase (04/17/17 13:34) C Diff Toxin Pcr (04/17/17 13:34) Enteric Path (Stool) (04/17/17 13:34) Sodium Chlor 0.9% 1000 Ml Inj (Ns 1000 M (04/17/17 15:00) Sodium Chlor 0.9% 1000 Ml Inj (Ns 1000 M (04/17/17 15:15) Admit Order (Ed Use Only) (04/17/17 16:38) Labs Laboratory Tests Test 04/17/17 14:05 White Blood Count 22.4 TH/MM3 Red Blood Count 3.67 MIL/MM3 Hemoglobin 9.4 GM/DL Hematocrit 28.8 % Mean Corpuscular Volume 78.5 FL Mean Corpuscular Hemoglobin 25.7 PG Mean Corpuscular Hemoglobin 32.8 % Concent Red Cell Distribution Width 18.6 % Platelet Count 361 TH/MM3 Mean Platelet Volume 7.7 FL Neutrophils (%) (Auto) 88.7 % Lymphocytes (%) (Auto) 3.4 % Monocytes (%) (Auto) 7.3 % Eosinophils (%) (Auto) 0.6 % Basophils (%) (Auto) 0.0 % Neutrophils # (Auto) 19.9 TH/MM3 Lymphocytes # (Auto) 0.8 TH/MM3 Monocytes # (Auto) 1.6 TH/MM3 Eosinophils # (Auto) 0.1 TH/MM3 Basophils # (Auto) 0.0 TH/MM3 CBC Comment AUTO DIFF Differential Total Cells 100 Counted Neutrophils % (Manual) 69 % Band Neutrophils % 19 % Lymphocytes % 5 % Monocytes % 3 % Neutrophils # (Manual) 20.6 TH/MM3 Metamyelocytes 4 % Differential Comment FINAL DIFF MANUAL Platelet Estimate HIGH Platelet Morphology Comment NORMAL Ovalocytes 1+ Keratocytes OCC Sodium Level 135 MEQ/L Potassium Level 5.2 MEQ/L Chloride Level 106 MEQ/L Carbon Dioxide Level 20.1 MEQ/L Anion Gap 9 MEQ/L Blood Urea Nitrogen 87 MG/DL Creatinine 1.86 MG/DL Estimat Glomerular Filtration 36 ML/MIN Rate Random Glucose 256 MG/DL Calcium Level 8.8 MG/DL Total Bilirubin 0.2 MG/DL Aspartate Amino Transf 15 U/L (AST/SGOT) Alanine Aminotransferase 38 U/L (ALT/SGPT) Alkaline Phosphatase 104 U/L Total Protein 5.9 GM/DL Albumin 1.9 GM/DL Lipase 75 U/L MDM Medical Decision Making Medical Screen Exam Complete: Yes Emergency Medical Condition: Yes Medical Record Reviewed: Yes Differential Diagnosis C. difficile colitis, dehydration, electrolyte abnormality Narrative Course I have reviewed the patient's electronic medical record. Reviewed his hospitalization from February 2017 IV placed CBC shows leukocytosis Metabolic profile reveals azotemia and dehydration Stool studies for C. difficile PCR and enteric pathogens culture ordered I gave him 2 L normal saline IV bolus Abdomen is soft and benign and nontender On recheck patient is drowsy and weak. He is not able to walk. He has dehydration and renal failure and certainly likely to have C. difficile given his clinical presentation even though the confirmative studies take a long time to get back. I reviewed with the medical residents who will admit Diagnosis Primary Impression: Dehydration, moderate Additional Impressions: Colitis Renal failure Qualified Code: N17.9 - Acute renal failure, unspecified acute renal failure type Generalized weakness Admitting Information Admitting Physician Requests: Admit Roby Quintero MD Apr 17, 2017 15:08
[2017-04-17 16:30] VITALS: BP 106/58; PULSE 76; RESP 0; O2SAT 98
[2017-04-17 16:31] LABS: BANDS 19 % (0-6); METAMYELOCYTES 4 % (0-1); NEUTROPHIL # MANUAL DIFF 20.6 TH/MM3 (1.8-7.7); POLYS (SEG NEUTROPHILS) 69 % (16-70); WBC DIFF SAMPLE 100
[2017-04-17 16:32] LABS: KERATOCYTES OCC (NORMAL); OVALOCYTES 1+ (NORMAL); PLATELET ESTIMATE SMEAR HIGH (NORMAL); PLATELET MORPHOLOGY NORMAL (NORMAL); SCAN/DIFF FINAL DIFF MANUAL
[2017-04-17] MEDS ORDERED: GABA100C4 PO (17:23)
[2017-04-17] MEDS ORDERED: DILT-64 PO (17:23)
[2017-04-17] MEDS ORDERED: IPRAAER INH (17:23)
[2017-04-17] MEDS ORDERED: NALOXONE HCL 0.4 MG/ML AMP IV PRN (17:45)
[2017-04-17] MEDS ORDERED: MAGNESIUM HYDROXIDE SUSP 30 ML CUP PO PRN (17:45)
[2017-04-17] MEDS ORDERED: ONDANSETRON HCL 4 MG/2 ML VIAL IVP PRN (17:45)
[2017-04-17] MEDS ORDERED: LACTULOSE SYRUP 20 GM/30 ML CUP PO PRN (17:45)
[2017-04-17] MEDS ORDERED: SENNOSIDES 8.6 MG TAB PO PRN (17:45)
[2017-04-17] MEDS ORDERED: SODIUM CHLORIDE 0.9% FLUSH 10 ML FLUSH IV FLUSH PRN (17:45)
[2017-04-17] MEDS ORDERED: BISACODYL 10 MG SUPP RECTAL PRN (17:45)
[2017-04-17 17:52] LABS: C. DIFF EPI 027 PRESUMPTIVE POSITIVE (NEGATIVE); C. DIFF TOXIN PCR POSITIVE (NEGATIVE)
[2017-04-17] MEDS ORDERED: RESP: ALBUTEROL 2.5 MG/3 ML NEB (PRN) NEB (18:00)
[2017-04-17] MEDS ORDERED: ACETAMINOPHEN/HYDROcodone 325 MG/10 MG TAB PO PRN (18:00)
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
[2017-04-17 18:15] VITALS: O2SAT 96
--- NOTE | 2017-04-17 19:48 | RADRPT ---
EXAM DATE/TIME: 04/17/2017 19:34 [facility] COMPARISON: CHEST PA & LAT, March 02, 2017, 14:53. INDICATIONS : Evaluate for pneumonia. MEDICAL HISTORY : Hypertension. Chronic obstructive pulmonary disease. Rib fractures. SURGICAL HISTORY : None. ENCOUNTER: Initial ACUITY: 1 day PAIN SCORE: 0/10 LOCATION: chest FINDINGS: PA and lateral views of the chest demonstrate the lungs to be symmetrically aerated without evidence of mass, infiltrate or effusion. The cardiomediastinal contours are unremarkable. Osseous structure s are intact. CONCLUSION: No acute disease. Hector Soliman Jr., MD on April 17, 2017 at 19:46 Board Certified Radiologist. This report was verified electronically.
[2017-04-17 20:00] VITALS: BP 111/53; PULSE 61; RESP 18; TEMP 97.5; O2SAT 97
[2017-04-17] MEDS: FLUTICASONE PROPIONATE 50 MCG/ACT 16 GM NASAL SPRAY EACH NARE SCH (21:00)
[2017-04-17] MEDS ORDERED: COMBIVENT RESPIMAT INH SCH (21:00)
[2017-04-17] MEDS ORDERED: DOCUSATE SODIUM 50 MG/SENNA 8.6 MG TAB PO SCH (21:00)
[2017-04-17] MEDS: ATORVASTATIN 40 MG TAB PO SCH (22:01)
[2017-04-17] MEDS: SODIUM CHLOR 0.9% 1000 ML INJ 1,000 ML IV SCH (22:01)
[2017-04-17] MEDS: DONEPEZIL HCL 5 MG TAB PO SCH (22:02)
[2017-04-17] MEDS: SODIUM CHLORIDE 0.9% FLUSH 10 ML FLUSH IV FLUSH SCH (22:02)
[2017-04-17] MEDS: BUDESONIDE-FORMOTEROL 160/4.5 MCG INHALER INH SCH (23:34)
[2017-04-17] MEDS: GABAPENTIN 100 MG CAP PO SCH (23:35)
[2017-04-17] MEDS: CYCLOBENZAPRINE HCL 10 MG TAB PO SCH (23:35)
[2017-04-17] MEDS: LATANOPROST 0.005% OPHT SOLN 2.5 ML BTL EACH EYE SCH (23:35)
[2017-04-18] VITALS (7 sets, daily range): BP systolic 138–170; BP diastolic 60–74; PULSE 64–75; RESP 16–22; TEMP 97.9–98.6; O2SAT 92–97
[2017-04-18] MEDS: SODIUM CHLOR 0.9% 1000 ML INJ 1,000 ML IV SCH ×3 (05:31→17:29)
[2017-04-18 08:15] LABS: AUTOMATED NEUTROPHIL # 16.5 TH/MM3 (1.8-7.7); EOSINOPHIL % 0.1 % (0.0-4.0); HEMO FLAGS DIFF FINAL; LYMPH % 5.7 % (9.0-44.0); LYMPHOCYTE # 1.1 TH/MM3 (1.0-4.8); MEAN CELL VOLUME 79.9 FL (80.0-100.0); MEAN CORPUSCULAR HEMOGLOBIN 25.5 PG (27.0-34.0); MEAN CORPUSCULAR HGB CONC 31.9 % (32.0-36.0); MONO % 7.2 % (0.0-8.0); PLATELET COUNT 291 TH/MM3 (150-450); RED BLOOD COUNT 3.38 MIL/MM3 (4.50-5.90); RED CELL DISTRIBUTION WIDTH 19.1 % (11.6-17.2)
--- NOTE | 2017-04-18 08:29 | HHI.FPPN ---
Subjective Remarks No acute events overnight. Vital signs have remained stable. Patient continues to have foul smelling diarrhea. He has had 5 BM's since admission. No antibiotics were started by admitting team due to report of severe anaphylaxis to both Vancomycin and Flagy. Patient has many, many severe medication allergies. ID has been consulted for assistance. States he feels hungry this AM. Denies any abdominal pain, nausea, vomiting, or shortness of breath. ( Dylan Brannon MD R3) Objective Vitals Vital Signs Date Time Temp Pulse Resp B/P Pulse Ox O2 Delivery O2 Flow Rate FiO2 04/18/17 04:00 97.9 67 20 142/69 96 04/18/17 00:00 98.0 64 20 149/69 95 04/17/17 20:30 Room Air 04/17/17 20:00 97.5 61 18 111/53 97 04/17/17 18:15 96 21 04/17/17 16:30 76 0 106/58 98 04/17/17 15:00 98.4 80 20 110/60 98 04/17/17 13:21 98.2 78 15 107/55 96 I/O 04/17/17 04/17/17 04/17/17 04/18/17 04/18/17 04/18/17 07:00 15:00 23:00 07:00 15:00 23:00 Intake Total 360 ml 360 ml Output Total 300 ml Balance 360 ml 60 ml Intake Oral 360 ml 360 ml Output Urine Total 300 ml # Voids 2 1 # Bowel Movements 2 3 (Dylan Brannon MD R3) Result Diagram: 04/17/17 1405 04/17/17 1405 Objective Remarks GENERAL: This is a well-nourished, well-developed male patient, in no apparent distress. SKIN: No rashes, ecchymoses or lesions. Cool and dry. HEAD: Atraumatic. Normocephalic. EYES: Extraocular motions intact. No scleral icterus. No injection or drainage. CARDIOVASCULAR: Regular rate and rhythm without murmurs, gallops, or rubs. RESPIRATORY: Patient with diffuse expiratory wheezing, prolonged expiratory phase relative to expiratory phase, decreased air movement bilaterally. No rales or rhonchi. GASTROINTESTINAL: Abdomen soft, non-tender, nondistended. No guarding. Normoactive bowl sounds MUSCULOSKELETAL: Extremities without clubbing, cyanosis, or edema. No joint tenderness, effusion, or edema noted. No calf tenderness. NEUROLOGICAL: Awake and alert. Cranial nerves II through XII grossly intact. Motor and sensory grossly within normal limits. Normal speech. (Dylan Brannon MD R3) A/P Assessment and Plan 71yo man with h/o C. difficile colitis twice in the past, COPD, HTN, mild dementia who presented with worsening malodorous diarrhea x5 days following treatment with Levaquin for a COPD exacerbation, found to have recurrent c. diff infection in setting of allergies to vanc and flagyl. Discharge Planning Pending evaluation and recommendations by ID and adequate treatment plan for c. diff. (Dylan Brannon MD R3) Attending Attestation Patient seen and examined. Case reviewed and discussed with the resident team. Agree with plan of care as discussed with me and documented in the resident note. On past hospitalizations he refused colonoscopy multiple times despite GI bleeds that required transfusion. Will ask him if he has changed his mind on this topic. started cholestyramine as he is allergic to Flagyl and per his "every single antibiotic. He has been written up in medical journals because he is allergic to everything." Can stop cholestyramine once he can start something else (Alfreda Jacome MD) Problem List: (1) C. difficile diarrhea Status: Acute Plan: On admission: WBC of 22.4, BUNs of 87, creatinine 1.86, stool C. difficile tox PCR positive. Patient also has a history of severe allergies/ adverse reactions to all antibiotics except for quinolones including reported anaphylaxis to vancomycin, (all "mycins" and flagyl. Infectious disease has been consulted for assistance with antibiotic management Advance diet to full liquids Blood cultures pending Stool hemoccult positive, Hgb 9.4 on admission Repeat CBC pending Stool WBC, Ova, and Eos pending CXR negative U/A pending Monitor intake and output Monitor vital signs PT for inability to walk, generalized weakness likely in the context of dehydration Hold patient's anti-constipation home medications because of diarrhea Zofran 4 mg IV push every 6 hours when necessary for nausea or vomiting (2) BILLY (acute kidney injury) Status: Acute Plan: Initial BUN/creatinine ratio of greater than 20:1. BUN of 87, creatinine 1.86 on admission. Patient received 2 L bolus in ED. Plan to rehydrate with IV fluids. Normal saline IV at 125 mL per hour Monitor intake and output CMP pending (3) COPD (chronic obstructive pulmonary disease) Status: Chronic Plan: History of COPD presents after incomplete treatment of COPD exacerbation. Albuterol neb 2.5 mg neb every 4 hours when necessary for shortness of breath or wheezing DuoNeb 1 neb every 4 hours when necessary for shortness of breath or wheezing Continue home medication of Symbicort 2 puffs inhaled twice a day If patient develops increased work of breathing, will begin PO steroids (4) Anemia Status: Acute Plan: Patient presents with anemia of 9.4. Hemoccult positive. Likely due to current c.diff infection; however, patient also has recent hx of recent GI bleed w/ EGD showing gastritis in December requiring 5 units of PRBCs. Consult GI for further evaluation if Hgb declines (5) HTN (hypertension) Status: Acute Plan: Patient with a history of chronic hypertension presents with low blood pressures on admission -- home BP meds currently being held, will restart if patient becomes hypertensive Continue diltiazem/Cardizem 240 mg by mouth twice a day Hold lisinopril 40 mg by mouth daily at bedtime for low blood pressure Hold spironolactone 25 mg by mouth daily for low blood pressure (6) FEN/PPX Status: Acute Plan: Fluids: Normal saline IV at 125 mL per hour Electrolytes: Monitor and replete as necessary Nutrition: Clear liquid diet DVT prophylaxis: Continue home baby aspirin and bilateral SCDs until Hemoccult returns given low hemoglobin of 9.4. GI prophylaxis not indicated at this time Chronic medical problems: Continue home medications as below: [place] 325-10 mg 1 tab by mouth every 4 hours when necessary for pain 6-10 Aspirin 81 mg chew by mouth daily for cardiovascular disease Celexa 60 mg by mouth daily Flexeril 10 mg by mouth 3 times a day donepezil/Aricept 10 mg by mouth daily at bedtime Flonase 2 spray each nares twice a day Gabapentin 100 mg by mouth 3 times a day Latanoprost eyedrops 1 drop each eye daily at bedtime Ambien 5 million by mouth daily at bedtime when necessary for insomnia (Dylan Brannon MD R3) Dylan Brannon MD R3 Apr 18, 2017 08:29 Alfreda Jacome MD Apr 19, 2017 12:18
[2017-04-18 08:35] LABS: ALKALINE PHOSPHATASE 90 U/L (45-117); ALT (GPT) 29 U/L (12-78); ANION GAP 8 MEQ/L (5-15); AST (GOT) 11 U/L (15-37); BICARBONATE 20.5 MEQ/L (21.0-32.0); BLOOD UREA NITROGEN 66 MG/DL (7-18); CHLORIDE 112 MEQ/L (98-107); GLOMERULAR FILTRATION RATE 63 ML/MIN (>89); POTASSIUM 5.2 MEQ/L (3.5-5.1); SODIUM (NA) 140 MEQ/L (136-145); TOTAL BILIRUBIN ADULT 0.2 MG/DL (0.2-1.0)
[2017-04-18] MEDS: SODIUM CHLORIDE 0.9% FLUSH 10 ML FLUSH IV FLUSH SCH ×2 (09:00→21:00)
[2017-04-18] MEDS: FLUTICASONE PROPIONATE 50 MCG/ACT 16 GM NASAL SPRAY EACH NARE SCH ×2 (09:00→22:30)
[2017-04-18] MEDS ORDERED: ASPIRIN 81 MG CHEW TAB CHEW SCH (09:00)
[2017-04-18] MEDS: CYCLOBENZAPRINE HCL 10 MG TAB PO SCH ×3 (10:17→17:18)
[2017-04-18] MEDS: CITALOPRAM HYDROBROMIDE 20 MG TAB PO SCH (10:17)
[2017-04-18] MEDS: GABAPENTIN 100 MG CAP PO SCH ×3 (10:18→17:18)
[2017-04-18] MEDS: BUDESONIDE-FORMOTEROL 160/4.5 MCG INHALER INH SCH ×2 (10:20→22:31)
[2017-04-18] MEDS: DILTIAZEM-CD 240 MG CAP ER PO SCH ×2 (10:28→22:30)
[2017-04-18] MEDS: CHOLESTYRAMINE LIGHT 4 GM PACKAGE PO SCH ×3 (13:09→22:31)
--- NOTE | 2017-04-18 13:54 | PD.ID.CON ---
History of Present Illness Service ID Consult Requested By Dr. Armstrong Reason for Consult Evaluation and Mment of Cdiff Colitis in presence of allergies. Primary Care Physician Chandana Akins MD Diagnoses: History of Present Illness is a 71 y/o CM with PMhx of Alcoholism, ? Alcohol induced dementia ( not on Rx Namenda made him goofy), COPD with exacerbations. Regarding his Infectious Disease history patient was admitted in a hospital in [place] for pancreatitis and was diagnosed with Clostridium perfringens infection in abdomen in 2003 per his . Patient was on Bactrim for an infection while in [place] and was diagnosed with Drug (bactrim) induced colitis. Patient was also diagnosed with Cdiff colitis atleast on one other occasion. Patients initially reported allergies to all 'mycins' but when I explained to her that generalizing all mycins as allergies is not a good idea as most antibiotics have names ending in -mycin and they could be different classes and different mechanisms of actions. With-holding from treatment from all mycins does limit us with antibiotic treatment options. She reported only confirmed allergies to erythromycin. To the best of her knowledge no known allergy to vancomycin and she was ok with me starting this medication as at present time patient is on no antibiotics for Cdiff infection. She was adamant about Flagyl causing fever and colitis and despite me explaining that flagyl actually helps with Cdiff treatment and that those symptoms could be from underlying disease or non response to flagyl and with- holding flagyl for anaerobic infections in future is not a good idea. The alternative is clindamycin for anaerobic infections which can again precipitate Cdiff. Of note, pt was hospitalized here from January 10 to February 17 for Escherichia coli bacteremia with some time spent in the ICU treated with Tygacil and Azactam. Patient also has been treated for septic arthritis treated with Zyvox ( linezolid). After discharge from rehabilitation, patient was home for 13 days, then came back on March 02 for "a touch of pneumonia," which was treated with Levaquin and steroids. Patient was recently diagnosed with COPD exacerbation and was prescribed a 10 day course of Levaquin (and prednisone) last dose on 04/10/17. On Friday 04/13, patient started to have loose, mushy bowel movements, which has since progressed to watery, malodorous bowel movements. He was having about 10 bowel movements every 24 hours. They deny any blood or black coloration to his stool. That same day, Sunday 04/15, pt was seen by [facility]. The doctor there prescribed Welchol 625mg 1 tab bid. He only took two doses. Pt is scheduled for repeat endoscopy this coming April 29. ID was consulted for evaluation and Mment of Cdiff Colitis in presence of allergies. Past Family Social History Allergies: Coded Allergies: Bactrim (Verified Allergy, Severe, Anaphylaxis, 04/10/17) Flagyl (Verified Allergy, Severe, Fever, colitis, 04/18/17) While being treated for Cdiff. Doubt if true allergy. Penicillin (Verified Allergy, Severe, Anaphylaxis, 04/10/17) Sulfa (Verified Allergy, Severe, Anaphylaxis, 04/10/17) Erythromycin (Verified Allergy, Intermediate, Rash, 04/18/17) MRI PRECAUTION (Verified Adverse Reaction, Severe, BLADDER STIMULATOR, ) BRAIN ONLY ON RECEIVE ONLY COIL, P.O. 01/11/17, DML *MDRO Multi-Drug Resistant Organism (Verified Adverse Reaction, Unknown, MRSA, 04/10/17) MRSA PCR (nares) POSITIVE - 01/11/17 Demerol (Verified Adverse Reaction, Unknown, Psychosis, 04/10/17) Morphine (Verified Adverse Reaction, Unknown, Psychosis, 04/10/17) Percocet (Verified Adverse Reaction, Unknown, Psychosis, 04/10/17) Uncoded Allergies: surgical tape (Allergy, Severe, 12/15/13) Past Medical History Clostridium perfringens bowel/pancreas infection. DM Glaucoma Hypertension COPD Mild dementia Vertigo Hearing loss Previous TIA Benign meningeal tumor frontal lobe area Spinal stenosis "inoperable" Ruptured disc lumbar spine Neuropathy Shingles Multiple skin cancers Previous alcohol abuse Kidneys stones Past Surgical History Right knee open meniscectomy I&D of left knee abscess Appendectomy Multiple back surgeries Left elbow surgery for damaged ulnar nerve Kidney stone removal Penile implant surgery Bladder implant (patient described this as a pacemaker for his bladder) Cataract surgery right and left eyes Reported Medications Reported Meds & Active Scripts Active Albuterol Neb (Albuterol Sulfate) 2.5 Mg/3 Ml Neb 2.5 Mg NEB Q4HR NEB PRN Levofloxacin 750 Mg Tablet 750 Mg PO DAILY Prednisone 50 Mg Tab 50 Mg PO DAILY Fluticasone Nasal [address] 50 Mcg/Act Naspr 100 Mcg EACH NARE BID 50 mcg/spray Advair Diskus Inh (Fluticasone-Salmeterol Inh) 500-50 Mcg/Blist Aer 1 Puff INH BID Rinse mouth after use. Flexeril (Cyclobenzaprine HCl) 10 Mg Tab 10 Mg PO TID Spironolactone 25 Mg Tab 25 Mg PO DAILY Travatan Z Opth Drops (Travoprost) 0.004 % Soln 1 Drop EACH EYE HS Donepezil 10 Mg Tab 10 Mg PO HS Citalopram (Citalopram Hydrobromide) 40 Mg Tab 60 Mg PO DAILY Please take 1.5 pills daily Atorvastatin (Atorvastatin Calcium) 40 Mg Tab 40 Mg PO HS Hydrocodone-Acetaminophen 10-325 mg Tab 1 Tab PO Q4H PRN Ambien (Zolpidem Tartrate) 5 Mg Tab 5 Mg PO HS PRN Lisinopril 40 Mg Tab 40 Mg PO HS Aspirin 81 Low Dose (Aspirin) 81 Mg Chew 81 Mg CHEW DAILY Reported Gabapentin 100 Mg Cap 100 Mg PO TID Combivent Respimat Inh (Ipratropium-Albuterol Inh) 20-100 Skilled Nursing/Act Aero 1 Puff INH BID Diltiazem CD 24 HR 240 Mg Caper 240 Mg PO BID Active Ordered Medications Current Medications Medications (Trade) Dose Ordered Sig/Valerie Route Start Time Stop Time Status Last Admin (NS Flush) 2 ml UNSCH PRN IV FLUSH 04/17/17 17:45 (NS Flush) 2 ml BID IV FLUSH 04/17/17 21:00 04/17/17 22:02 (Zofran Inj) 4 mg Q6H PRN IVP 04/17/17 17:45 (Narcan Inj) 0.4 mg UNSCH PRN IV 04/17/17 17:45 (Aspirin Chew) 81 mg DAILY CHEW 04/18/17 09:00 04/18/17 10:17 (Lipitor) 40 mg HS PO 04/17/17 21:00 04/17/17 22:01 (CeleXA) 60 mg DAILY PO 04/18/17 09:00 04/18/17 10:17 (Flexeril) 10 mg TID PO 04/17/17 18:00 04/18/17 13:09 (Cardizem Cd) 240 mg BID PO 04/17/17 21:00 04/18/17 10:28 (Aricept) 10 mg HS PO 04/17/17 21:00 04/17/17 22:02 (Flonase Justo Spr) 2 spray BID EACH NARE 04/17/17 21:00 (Neurontin) 100 mg TID PO 04/17/17 18:00 04/18/17 13:09 (Aldactone) 25 mg DAILY PO 04/18/17 09:00 Hold (Ambien) 5 mg HS PRN PO 04/17/17 18:00 (Symbicort 160-4.5 Inh) 2 puff BID INH 04/17/17 21:00 04/18/17 10:20 Patient Own Medication PT OWN MED: Combiv... BID INH 04/17/17 21:00 Hold (Prinivil) 40 mg HS PO 04/17/17 21:00 Hold Latanoprost 1 drop 1 drop HS EACH EYE 04/17/17 21:00 04/17/17 23:35 (NS 1000 ml Inj) 1,000 ml @ 125 mls/hr Q8H IV 04/17/17 18:15 04/18/17 10:18 (Questran Light Pkt) 4 gm Q8HR PO 04/18/17 14:00 04/18/17 13:09 Family History Non contributory to current ID problems. Social History , recovering alcoholic, quit in 2007. Ex smoker about 1 pack per day, quit sep 2013. Lives at home. Has children. Physical Exam Vital Signs Vital Signs Date Time Temp Pulse Resp B/P Pulse Ox O2 Delivery O2 Flow Rate FiO2 04/18/17 12:00 98.3 72 18 138/70 95 04/18/17 08:00 98.6 72 16 168/74 92 04/18/17 04:00 97.9 67 20 142/69 96 04/18/17 00:00 98.0 64 20 149/69 95 04/17/17 20:30 Room Air 04/17/17 20:00 97.5 61 18 111/53 97 04/17/17 18:15 96 21 04/17/17 16:30 76 0 106/58 98 04/17/17 15:00 98.4 80 20 110/60 98 Physical Exam GENERAL: This is a well-nourished, well-developed patient, in no apparent distress. SKIN: No rashes, ecchymoses or lesions. Cool and dry. HEAD: Atraumatic. Normocephalic. No temporal or scalp tenderness. EYES: Pupils equal round and reactive. Extraocular motions intact. No scleral icterus. No injection or drainage. ENT: Nose without bleeding, purulent drainage or septal hematoma. Throat without erythema, tonsillar hypertrophy or exudate. Uvula midline. Airway patent. NECK: Trachea midline. Supple, nontender, no meningeal signs. CARDIOVASCULAR: Regular rate and rhythm without murmurs, gallops, or rubs. RESPIRATORY: Clear to auscultation. Breath sounds equal bilaterally. No wheezes , rales, or rhonchi. GASTROINTESTINAL: Abdomen soft, non-tender, nondistended. MUSCULOSKELETAL: Extremities without clubbing, cyanosis, or edema. NEUROLOGICAL: Awake and alert. Grossly non focal Psych: cooperative IV line sites with no e.o infection. Laboratory Laboratory Tests Test 04/17/17 04/17/17 04/17/17 04/18/17 14:05 15:00 20:40 07:44 White Blood Count 22.4 19.0 Red Blood Count 3.67 3.38 Hemoglobin 9.4 8.6 Hematocrit 28.8 27.0 Mean Corpuscular Volume 78.5 79.9 Mean Corpuscular Hemoglobin 25.7 25.5 Mean Corpuscular Hemoglobin 32.8 31.9 Concent Red Cell Distribution Width 18.6 19.1 Platelet Count 361 291 Mean Platelet Volume 7.7 7.5 Neutrophils (%) (Auto) 88.7 87.0 Lymphocytes (%) (Auto) 3.4 5.7 Monocytes (%) (Auto) 7.3 7.2 Eosinophils (%) (Auto) 0.6 0.1 Basophils (%) (Auto) 0.0 0.0 Neutrophils # (Auto) 19.9 16.5 Lymphocytes # (Auto) 0.8 1.1 Monocytes # (Auto) 1.6 1.4 Eosinophils # (Auto) 0.1 0.0 Basophils # (Auto) 0.0 0.0 CBC Comment AUTO DIFF DIFF FINAL Differential Total Cells 100 Counted Neutrophils % (Manual) 69 Band Neutrophils % 19 Lymphocytes % 5 Monocytes % 3 Neutrophils # (Manual) 20.6 Metamyelocytes 4 Differential Comment FINAL DIFF MANUAL Platelet Estimate HIGH Platelet Morphology Comment NORMAL Ovalocytes 1+ Keratocytes OCC Sodium Level 135 140 Potassium Level 5.2 5.2 Chloride Level 106 112 Carbon Dioxide Level 20.1 20.5 Anion Gap 9 8 Blood Urea Nitrogen 87 66 Creatinine 1.86 1.14 Estimat Glomerular Filtration 36 63 Rate Random Glucose 256 241 Calcium Level 8.8 8.1 Total Bilirubin 0.2 0.2 Aspartate Amino Transf 15 11 (AST/SGOT) Alanine Aminotransferase 38 29 (ALT/SGPT) Alkaline Phosphatase 104 90 Total Protein 5.9 5.1 Albumin 1.9 1.7 Lipase 75 Stool C. difficile Toxin (PCR) POSITIVE Stl C. difficile Toxin PRESUMPTIVE Epiderm 027 POSITIVE Eosinophil Stool Smear NONE SEEN Lactic Acid Level 1.3 Date/Time Procedure Status Source Growth 04/17/17 20:55 Aerobic Blood Culture - Preliminary Resulted Blood Peripheral NO GROWTH IN 1 DAY 04/17/17 20:55 Anaerobic Blood Culture - Preliminary Resulted Blood Peripheral NO GROWTH IN 1 DAY 04/17/17 18:01 Anselmo Batch Stool Stool 04/17/17 15:00 Stool Occult Blood (DARON) - Final Complete Stool Stool HEMOCCULT POSITIVE 04/17/17 15:00 Cancelled Stool Stool Result Diagram: 04/18/17 0744 04/18/17 0744 Imaging Last Impressions Chest X-Ray 04/17/17 0000 Signed Impressions: Service Date/Time: Monday, April 17, 2017 19:34 - CONCLUSION: No acute disease. Hector Soliman Jr., MD Assessment and Plan Assessment and Plan Cdiff Colitis with significant diarrhea. BNAP strain positive (patient has been on Levaquin off and on multiple courses as pt self reporting allergy to all mycins) Leucocytosis high grade, likely sepsis Immune compromised host (on chronic steroids) COPD Dementia: alcohol, senile. Recs Start Oral Vanco 125 mg po every 6 hours. Monitor for signs of infection and allergy. Notify ID if any adverse reaction to vanco oral for alternative Cdiff medications. Follow cultures Follow clinically. Marita Osborne MD Apr 18, 2017 13:54 BNAP strain positive (patient has been on Levaquin off and on multiple courses as pt self reporting allergy to all mycins) Leucocytosis high grade, likely sepsis Immune compromised host (on chronic steroids) COPD Dementia: alcohol, senile. Recs Start Oral Vanco 125 mg po every 6 hours. Monitor for signs of infection and allergy. Notify ID if any adverse reaction to vanco oral for alternative Cdiff medications. Follow cultures Follow clinically. Marita Osborne MD Apr 18, 2017 13:54
--- NOTE | 2017-04-18 14:00 | EKG ---
Date Performed: 04/17/2017 Time Performed: 21:37:32 PTAGE: 71 years EKG: Sinus rhythm WITH FIRST DEGREE AV BLOCK RIGHT BUNDLE BRANCH BLOCK Compared to prior tracing no significant change ABNORMAL ECG PREVIOUS TRACING : 03/02/2017 16.08 DOCTOR: Chalo Argueta Interpretating Date/Time 04/18/2017 13:58:53
[2017-04-18] MEDS: VANCOMYCIN 500 MG VIAL (FOR ORAL USE ONLY) PO SCH ×3 (15:00→22:30)
[2017-04-18] MEDS ORDERED: VANCOMYCIN 500 MG VIAL (FOR ORAL USE ONLY) PO SCH (18:00)
[2017-04-18] MEDS: DONEPEZIL HCL 5 MG TAB PO SCH (22:29)
[2017-04-18] MEDS: ATORVASTATIN 40 MG TAB PO SCH (22:30)
[2017-04-18] MEDS: LATANOPROST 0.005% OPHT SOLN 2.5 ML BTL EACH EYE SCH (22:31)
[2017-04-19] VITALS (7 sets, daily range): BP systolic 138–170; BP diastolic 60–74; PULSE 63–78; RESP 16–20; TEMP 97.2–100.5; O2SAT 94–98
[2017-04-19] MEDS: RESP: ALBUTEROL 2.5 MG/IPRATROPIUM 0.5 MG NEB (PRN) NEB ×2 (00:09→11:51)
[2017-04-19] MEDS: SODIUM CHLOR 0.9% 1000 ML INJ 1,000 ML IV SCH ×4 (02:29→23:33)
[2017-04-19] MEDS: CHOLESTYRAMINE LIGHT 4 GM PACKAGE PO SCH (06:15)
[2017-04-19] MEDS: SODIUM CHLORIDE 0.9% FLUSH 10 ML FLUSH IV FLUSH SCH ×2 (09:00→21:00)
[2017-04-19] MEDS: FLUTICASONE PROPIONATE 50 MCG/ACT 16 GM NASAL SPRAY EACH NARE SCH ×2 (09:22→21:00)
[2017-04-19] MEDS: BUDESONIDE-FORMOTEROL 160/4.5 MCG INHALER INH SCH ×2 (09:28→21:22)
[2017-04-19] MEDS: CITALOPRAM HYDROBROMIDE 20 MG TAB PO SCH (09:28)
[2017-04-19] MEDS: DILTIAZEM-CD 240 MG CAP ER PO SCH ×2 (09:28→21:21)
[2017-04-19] MEDS: VANCOMYCIN 500 MG VIAL (FOR ORAL USE ONLY) PO SCH ×4 (09:28→21:22)
[2017-04-19] MEDS: CYCLOBENZAPRINE HCL 10 MG TAB PO SCH ×3 (09:28→17:58)
[2017-04-19] MEDS: GABAPENTIN 100 MG CAP PO SCH ×3 (09:29→17:58)
--- NOTE | 2017-04-19 09:39 | HHI.FPPN ---
Subjective Remarks Patient had fever of 100.5 overnight. Report of 12 bowl movements yesterday. Patient on PO vancomycin, no report of any adverse reactions since starting medication. He continues to have mild shortness of breath unchanged from yesterday. He has a history of COPD. No history of CHF. Currently maintaining saturations on room air. He reports some difficulty with swallowing water this morning but has been drinking juice and taking his medication without difficulty. No nausea, vomiting, or abdominal pain. (Dylan Brannon MD R3) Objective Vitals Vital Signs Date Time Temp Pulse Resp B/P Pulse Ox O2 Delivery O2 Flow Rate FiO2 04/19/17 08:20 Room Air 04/19/17 04:00 Room Air 04/19/17 04:00 98.6 70 20 156/68 96 04/19/17 00:15 97 21 04/19/17 00:00 Room Air 04/19/17 00:00 100.5 78 18 152/74 97 04/18/17 20:00 98.3 75 20 160/70 97 04/18/17 20:00 Room Air 04/18/17 16:00 Room Air 04/18/17 16:00 98.2 68 22 170/60 96 04/18/17 12:00 Room Air 04/18/17 12:00 98.3 72 18 138/70 95 04/18/17 11:15 93 21 I/O 04/18/17 04/18/17 04/18/17 04/19/17 04/19/17 04/19/17 07:00 15:00 23:00 07:00 15:00 23:00 Intake Total 1360 ml 960 ml 1746 ml 1411 ml Output Total 300 ml Balance 1060 ml 960 ml 1746 ml 1411 ml Intake Oral 360 ml 960 ml 600 ml 480 ml IV Total 1000 ml 1146 ml 931 ml Output Urine Total 300 ml # Voids 1 4 2 5 # Bowel Movements 3 5 2 5 (Dylan Brannon MD R3) Result Diagram: 04/18/1774304/18/17743 Objective Remarks GENERAL: This is a well-nourished, well-developed male patient, sitting up with bed with cough. SKIN: No rashes, ecchymoses or lesions. Cool and dry. HEAD: Atraumatic. Normocephalic. EYES: Extraocular motions intact. No scleral icterus. No injection or drainage. CARDIOVASCULAR: Regular rate and rhythm without murmurs, gallops, or rubs. RESPIRATORY: Patient with diffuse expiratory wheezing, prolonged expiratory phase relative to expiratory phase, decreased air movement bilaterally. No crackles auscultated. No rales or rhonchi. GASTROINTESTINAL: Abdomen soft, non-tender, nondistended. No guarding. Normoactive bowl sounds MUSCULOSKELETAL: Extremities without clubbing, cyanosis, or edema. No joint tenderness, effusion, or edema noted. No calf tenderness. NEUROLOGICAL: Awake and alert. Cranial nerves II through XII grossly intact. Motor and sensory grossly within normal limits. Normal speech. (Dylan Brannon MD R3) A/P Assessment and Plan 71yo man with h/o C. 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 Discharge Planning Pending evaluation and recommendations by ID, clinical improvement, and adequate outpatient treatment plan for c. diff. (Dylan Brannon MD R3) Attending Attestation Patient seen and examined. Case reviewed and discussed with the resident team. Agree with plan of care as discussed with me and documented in the resident note. Today, Mr Garcia states he is agreeable to getting procedures including GI procedures if needed. He has some respiratory mild distress earlier today but is S/P a nebulizer and is moving air well at this time 1240 pm with some mild wheezing mainly on the left. Speech recommends honey thickened liquids right now so will change his diet. (Alfreda Jacome MD) Problem List: (1) C. difficile diarrhea Status: Acute Plan: On admission: WBC of 22.4, BUNs of 87, creatinine 1.86, stool C. difficile tox PCR positive. Patient also has a history of reported allergies/ adverse reactions to all antibiotics except for quinolones including all "mycins " and flagyl. Infectious disease has been consulted for assistance with antibiotic management - PO Vancomycin 125mg q 6hrs - Patient monitored closely for allergy --> No report of adverse reactions Full liquid diet Blood cultures no growth x1 day Stool hemoccult positive AM CBC pending CXR negative U/A pending Monitor intake and output Monitor vital signs PT for inability to walk, generalized weakness likely in the context of dehydration Hold patient's anti-constipation home medications because of diarrhea Zofran 4 mg IV push every 6 hours when necessary for nausea or vomiting (2) BILLY (acute kidney injury) Status: Acute Plan: Prerenal. Initial BUN/creatinine ratio of greater than 20:1. BUN of 87, creatinine 1.86 on admission. Patient received 2 L bolus in ED. Plan to rehydrate with IV fluids. Cr 1.86 -> 1.14 yesterday. Normal saline IV at 125 mL per hour Monitor intake and output AM BMP pending (3) COPD (chronic obstructive pulmonary disease) Status: Chronic Plan: History of COPD presents after incomplete treatment of COPD exacerbation. Albuterol neb 2.5 mg neb every 4 hours when necessary for shortness of breath or wheezing DuoNeb 1 neb every 4 hours when necessary for shortness of breath or wheezing Continue home medication of Symbicort 2 puffs inhaled twice a day Begin IV solumedrol 125 x1. Then prednisone 50mg daily. STAT CXR at this time. (4) Anemia Status: Acute Plan: Patient presented with anemia of 9.4. Hemoccult positive. Likely due to current c.diff infection; however, patient also has recent hx of recent GI bleed w/ EGD showing gastritis in December requiring 5 units of PRBCs. Hgb 8.6 yesterday, likely dilutional. Repeat Hgb this AM pending. Consider GI consult for further evaluation if Hgb continues to decline (5) HTN (hypertension) Status: Acute Plan: BP's have been labile, antihypertensives initially held on admission due to concern for sepsis/hypotension. Will restart at this time. Continue diltiazem/Cardizem 240 mg BID Restart home lisinopril 40 mg daily Restart spironolactone 25 mg daily Clonidine prn BP >180/100 (6) FEN/PPX Status: Acute Plan: Fluids: Normal saline: hold pending STAT CXR, if no evidence of fluid retention, will restart Electrolytes: Monitor and replete as necessary Nutrition: Hold, pending swallow eval DVT prophylaxis: Bilateral SCDs, defer anticoagulation due to + Hemoccult GI prophylaxis: Protonix 40mg daily Chronic medical problems: Continue home medications as below: [place] 325-10 mg 1 tab by mouth every 4 hours when necessary for pain 6-10 Aspirin 81 mg chew by mouth daily for cardiovascular disease Celexa 60 mg by mouth daily Flexeril 10 mg by mouth 3 times a day donepezil/Aricept 10 mg by mouth daily at bedtime Flonase 2 spray each nares twice a day Gabapentin 100 mg by mouth 3 times a day Latanoprost eyedrops 1 drop each eye daily at bedtime Ambien 5 million by mouth daily at bedtime when necessary for insomnia (Dylan Brannon MD R3) Dylan Brannon MD R3 Apr 19, 2017 09:39 Alfreda Jacome MD Apr 19, 2017 12:44
[2017-04-19] MEDS ORDERED: methylPREDNISolone SOD SUCC 125 MG/2 ML VIAL IV PUSH ONE (11:00)
--- NOTE | 2017-04-19 11:06 | RADRPT ---
EXAM DATE/TIME: 04/19/2017 10:55 [facility] COMPARISON: No previous studies available for comparison. INDICATIONS : Shortness of breath. MEDICAL HISTORY : Hypertension. Chronic obstructive pulmonary disease. Rib fractures SURGICAL HISTORY : None. ENCOUNTER: Initial ACUITY: 1 day PAIN SCORE: 0/10 LOCATION: Bilateral chest FINDINGS: PA and lateral views of the chest demonstrate the lungs to be symmetrically aerated without evidence of mass, infiltrate or effusion. The cardiomediastinal contours are mildly prominent. Osseous struc tures are intact. CONCLUSION: 1. Mild cardiomegaly. No acute findings. Richard Tripp MD on April 19, 2017 at 11:01 Board Certified Radiologist. This report was verified electronically.
[2017-04-19] MEDS: PANTOPRAZOLE SOD 40 MG DELAYED RELEASE TAB PO SCH (12:26)
[2017-04-19 13:24] LABS: AUTOMATED NEUTROPHIL # 15.5 TH/MM3 (1.8-7.7); BASOPHIL % 0.1 % (0.0-2.0); EOSINOPHIL # 0.2 TH/MM3 (0-0.4); EOSINOPHIL % 1.2 % (0.0-4.0); HEMATOCRIT 29.1 % (39.0-51.0); LYMPHOCYTE # 1.6 TH/MM3 (1.0-4.8); MEAN CELL VOLUME 78.5 FL (80.0-100.0); MEAN CORPUSCULAR HEMOGLOBIN 25.6 PG (27.0-34.0); MEAN CORPUSCULAR HGB CONC 32.6 % (32.0-36.0); MONO % 12.3 % (0.0-8.0); NEUT % 78.4 % (16.0-70.0); PLATELET COUNT 327 TH/MM3 (150-450); RED CELL DISTRIBUTION WIDTH 19.4 % (11.6-17.2); WHITE BLOOD COUNT 19.8 TH/MM3 (4.0-11.0)
[2017-04-19 13:26] LABS: HEMO FLAGS AUTO DIFF
[2017-04-19 13:55] LABS: ACANTHOCYTES OCC (NORMAL); BANDS 10 % (0-6); EOSINOPHILS 1 % (0-4); NEUTROPHIL # MANUAL DIFF 16.2 TH/MM3 (1.8-7.7); OVALOCYTES 1+ (NORMAL); PLATELET ESTIMATE SMEAR NORMAL (NORMAL); PLATELET MORPHOLOGY NORMAL (NORMAL); POLYS (SEG NEUTROPHILS) 72 % (16-70); SCAN/DIFF FINAL DIFF MANUAL; WBC DIFF SAMPLE 100
[2017-04-19 14:06] LABS: BICARBONATE 22.4 MEQ/L (21.0-32.0)
--- NOTE | 2017-04-19 14:58 | HHI.IDPN ---
Subjective Subjective Remarks is a 71 y/o CM with PMhx of Alcoholism, ? Alcohol induced dementia ( not on Rx Namenda made him goofy), COPD with exacerbations. Admitted with Cdiff sepsis. Patient was recently diagnosed with COPD exacerbation and was prescribed a 10 day course of Levaquin (and prednisone) last dose on 04/10/17. On Friday 04/13, patient started to have loose, mushy bowel movements, which has since progressed to watery, malodorous bowel movements. He was having about 10 bowel movements every 24 hours. They deny any blood or black coloration to his stool. That same day, Sunday 04/15, pt was seen by [facility]. The doctor there prescribed Welchol 625mg 1 tab bid. He only took two doses. Pt is scheduled for repeat endoscopy this coming April 29. ID was consulted for evaluation and Mment of Cdiff Colitis in presence of allergies. Overnight events reviewed. Low grade fevers. Had 10 BMs total yday. Only 2 BMs today and more formed. No N/V. Shortness of breath was started on Nebs and feels better Underwent swallow study results pending. Antibiotics Vanco oral. Lines Line sites with no e.o infection Past Medical History reviewed Allergies: Coded Allergies: Bactrim (Verified Allergy, Severe, Anaphylaxis, 04/10/17) Flagyl (Verified Allergy, Severe, Fever, colitis, 04/18/17) While being treated for Cdiff. Doubt if true allergy. Penicillin (Verified Allergy, Severe, Anaphylaxis, 04/10/17) Sulfa (Verified Allergy, Severe, Anaphylaxis, 04/10/17) Erythromycin (Verified Allergy, Intermediate, Rash, 04/18/17) MRI PRECAUTION (Verified Adverse Reaction, Severe, BLADDER STIMULATOR, ) BRAIN ONLY ON RECEIVE ONLY COIL, P.O. 01/11/17, DML *MDRO Multi-Drug Resistant Organism (Verified Adverse Reaction, Unknown, MRSA, 04/10/17) MRSA PCR (nares) POSITIVE - 01/11/17 Demerol (Verified Adverse Reaction, Unknown, Psychosis, 04/10/17) Morphine (Verified Adverse Reaction, Unknown, Psychosis, 04/10/17) Percocet (Verified Adverse Reaction, Unknown, Psychosis, 04/10/17) Uncoded Allergies: surgical tape (Allergy, Severe, 12/15/13) Objective . Vital Signs Date Time Temp Pulse Resp B/P Pulse Ox O2 Delivery O2 Flow Rate FiO2 04/19/17 12:00 99.4 76 20 160/70 96 04/19/17 08:20 Room Air 04/19/17 08:00 98.7 78 20 170/68 98 04/19/17 04:00 Room Air 04/19/17 04:00 98.6 70 20 156/68 96 04/19/17 00:15 97 21 04/19/17 00:00 Room Air 04/19/17 00:00 100.5 78 18 152/74 97 04/18/17 20:00 98.3 75 20 160/70 97 04/18/17 20:00 Room Air 04/18/17 16:00 Room Air 04/18/17 16:00 98.2 68 22 170/60 96 04/18/17 04/18/17 04/19/17 15:00 23:00 07:00 Intake Total 960 ml 1746 ml 1411 ml Balance 960 ml 1746 ml 1411 ml Intake Oral 960 ml 600 ml 480 ml IV Total 1146 ml 931 ml # Voids 4 2 5 # Bowel Movements 5 2 5 . Laboratory Tests Test 04/18/17 04/19/17 07:44 13:05 White Blood Count 19.0 TH/MM3 19.8 TH/MM3 Red Blood Count 3.38 MIL/MM3 3.70 MIL/MM3 Hemoglobin 8.6 GM/DL 9.5 GM/DL Hematocrit 27.0 % 29.1 % Mean Corpuscular Volume 79.9 FL 78.5 FL Mean Corpuscular Hemoglobin 25.5 PG 25.6 PG Mean Corpuscular Hemoglobin 31.9 % 32.6 % Concent Red Cell Distribution Width 19.1 % 19.4 % Platelet Count 291 TH/MM3 327 TH/MM3 Mean Platelet Volume 7.5 FL 7.5 FL Neutrophils (%) (Auto) 87.0 % 78.4 % Lymphocytes (%) (Auto) 5.7 % 8.0 % Monocytes (%) (Auto) 7.2 % 12.3 % Eosinophils (%) (Auto) 0.1 % 1.2 % Basophils (%) (Auto) 0.0 % 0.1 % Neutrophils # (Auto) 16.5 TH/MM3 15.5 TH/MM3 Lymphocytes # (Auto) 1.1 TH/MM3 1.6 TH/MM3 Monocytes # (Auto) 1.4 TH/MM3 2.4 TH/MM3 Eosinophils # (Auto) 0.0 TH/MM3 0.2 TH/MM3 Basophils # (Auto) 0.0 TH/MM3 0.0 TH/MM3 CBC Comment DIFF FINAL AUTO DIFF Differential Comment FINAL DIFF MANUAL Differential Total Cells 100 Counted Neutrophils % (Manual) 72 % Band Neutrophils % 10 % Lymphocytes % 8 % Monocytes % 9 % Eosinophils % 1 % Neutrophils # (Manual) 16.2 TH/MM3 Platelet Estimate NORMAL Platelet Morphology Comment NORMAL Ovalocytes 1+ Acanthocytes OCC Laboratory Tests Test 04/17/17 04/18/17 04/19/17 20:40 07:44 13:05 Lactic Acid Level 1.3 mmol/L Sodium Level 140 MEQ/L 139 MEQ/L Potassium Level 5.2 MEQ/L 5.0 MEQ/L Chloride Level 112 MEQ/L 109 MEQ/L Carbon Dioxide Level 20.5 MEQ/L 22.4 MEQ/L Anion Gap 8 MEQ/L 8 MEQ/L Blood Urea Nitrogen 66 MG/DL 29 MG/DL Creatinine 1.14 MG/DL 0.77 MG/DL Estimat Glomerular Filtration 63 ML/MIN 99 ML/MIN Rate Random Glucose 241 MG/DL 263 MG/DL Calcium Level 8.1 MG/DL 8.3 MG/DL Total Bilirubin 0.2 MG/DL Aspartate Amino Transf 11 U/L (AST/SGOT) Alanine Aminotransferase 29 U/L (ALT/SGPT) Alkaline Phosphatase 90 U/L Total Protein 5.1 GM/DL Albumin 1.7 GM/DL Microbiology Date/Time Procedure Status Source Growth 04/17/17 15:00 Cancelled Stool Stool 04/17/17 15:00 Stool Occult Blood (DARON) - Final Complete Stool Stool HEMOCCULT POSITIVE 04/17/17 18:01 Anselmo Batch Stool Stool 04/17/17 20:40 Aerobic Blood Culture - Preliminary Resulted Blood Peripheral NO GROWTH IN 2 DAYS 04/17/17 20:40 Anaerobic Blood Culture - Preliminary Resulted Blood Peripheral NO GROWTH IN 2 DAYS 04/17/17 20:55 Aerobic Blood Culture - Preliminary Resulted Blood Peripheral NO GROWTH IN 2 DAYS 04/17/17 20:55 Anaerobic Blood Culture - Preliminary Resulted Blood Peripheral NO GROWTH IN 2 DAYS Imaging Last Impressions Chest X-Ray 04/19/17 0000 Signed Impressions: Service Date/Time: Wednesday, April 19, 2017 10:55 - CONCLUSION: 1. Mild cardiomegaly. No acute findings. Richard Tripp MD Physical Exam GENERAL: This is a well-nourished, well-developed patient, in no apparent distress. SKIN: No rashes, ecchymoses or lesions. Cool and dry. HEAD: Atraumatic. Normocephalic. No temporal or scalp tenderness. EYES: Pupils equal round and reactive. Extraocular motions intact. No scleral icterus. No injection or drainage. ENT: Nose without bleeding, purulent drainage or septal hematoma. Throat without erythema, tonsillar hypertrophy or exudate. Uvula midline. Airway patent. NECK: Trachea midline. Supple, nontender, no meningeal signs. CARDIOVASCULAR: Regular rate and rhythm without murmurs, gallops, or rubs. RESPIRATORY: Clear to auscultation. Breath sounds equal bilaterally. No wheezes , rales, or rhonchi. GASTROINTESTINAL: Abdomen soft, non-tender, nondistended. MUSCULOSKELETAL: Extremities without clubbing, cyanosis, or edema. NEUROLOGICAL: Awake and alert. Grossly non focal Psych: cooperative IV line sites with no e.o infection. Assessment & Plan Remarks Cdiff Colitis with significant diarrhea. BNAP strain positive (patient has been on Levaquin off and on multiple courses as pt self reporting allergy to all mycins) Leucocytosis high grade, likely sepsis Immune compromised host (on chronic steroids) COPD Dementia: alcohol, senile. Recs Continue Oral Vanco 125 mg po every 6 hours. Monitor for signs of infection and allergy. Notify ID if any adverse reaction to vanco oral for alternative Cdiff medications. Follow cultures Follow clinically. Marita Osborne MD Apr 19, 2017 14:57
[2017-04-19] MEDS: ATORVASTATIN 40 MG TAB PO SCH (21:21)
[2017-04-19] MEDS: LISINOPRIL 20 MG TAB PO SCH (21:21)
[2017-04-19] MEDS: LATANOPROST 0.005% OPHT SOLN 2.5 ML BTL EACH EYE SCH (21:22)
[2017-04-19] MEDS: DONEPEZIL HCL 5 MG TAB PO SCH (21:22)
[2017-04-20] VITALS: BP 160/78; PULSE 76; RESP 16; TEMP 98.2; O2SAT 95
[2017-04-20 08:00] VITALS: BP 162/76; PULSE 70; RESP 18; TEMP 97.5; O2SAT 97
[2017-04-20] MEDS: CYCLOBENZAPRINE HCL 10 MG TAB PO SCH ×3 (08:57→18:25)
[2017-04-20] MEDS: SPIRONOLACTONE 25 MG TAB PO SCH (08:58)
[2017-04-20] MEDS: VANCOMYCIN 500 MG VIAL (FOR ORAL USE ONLY) PO SCH ×4 (08:58→21:46)
[2017-04-20] MEDS: CITALOPRAM HYDROBROMIDE 20 MG TAB PO SCH (08:58)
[2017-04-20] MEDS: DILTIAZEM-CD 240 MG CAP ER PO SCH ×2 (08:58→21:43)
[2017-04-20] MEDS: PANTOPRAZOLE SOD 40 MG DELAYED RELEASE TAB PO SCH (08:58)
[2017-04-20] MEDS: GABAPENTIN 100 MG CAP PO SCH ×3 (08:58→18:25)
[2017-04-20] MEDS: SODIUM CHLORIDE 0.9% FLUSH 10 ML FLUSH IV FLUSH SCH ×2 (09:00→21:00)
[2017-04-20] MEDS: FLUTICASONE PROPIONATE 50 MCG/ACT 16 GM NASAL SPRAY EACH NARE SCH ×2 (09:05→21:45)
[2017-04-20] MEDS: BUDESONIDE-FORMOTEROL 160/4.5 MCG INHALER INH SCH ×2 (09:05→21:45)
[2017-04-20] MEDS: SODIUM CHLOR 0.9% 1000 ML INJ 1,000 ML IV SCH ×3 (10:15→21:47)
[2017-04-20] MEDS: cloNIDine HCL 0.1 MG TAB PO PRN ×2 (11:30→21:44)
[2017-04-20] MEDS: predniSONE 50 MG TAB PO SCH (11:30)
[2017-04-20 12:00] VITALS: BP 180/68; PULSE 68; RESP 18; TEMP 98.2; O2SAT 98
--- NOTE | 2017-04-20 14:46 | HHI.IDPN ---
Subjective Subjective Remarks is a 71 y/o CM with PMhx of Alcoholism, ? Alcohol induced dementia ( not on Rx Namenda made him goofy), COPD with exacerbations. Admitted with Cdiff sepsis. Patient was recently diagnosed with COPD exacerbation and was prescribed a 10 day course of Levaquin (and prednisone) last dose on 04/10/17. On Friday 04/13, patient started to have loose, mushy bowel movements, which has since progressed to watery, malodorous bowel movements. He was having about 10 bowel movements every 24 hours. They deny any blood or black coloration to his stool. That same day, Sunday 04/15, pt was seen by [facility]. The doctor there prescribed Welchol 625mg 1 tab bid. He only took two doses. Pt is scheduled for repeat endoscopy this coming April 29. ID was consulted for evaluation and Mment of Cdiff Colitis in presence of allergies. Overnight events reviewed. Low grade fevers. Diarrhea better. WBC still up but is now on steroids. No N/V. Antibiotics Vanco oral. Lines Line sites with no e.o infection Past Medical History reviewed Allergies: Coded Allergies: Bactrim (Verified Allergy, Severe, Anaphylaxis, 04/10/17) Flagyl (Verified Allergy, Severe, Fever, colitis, 04/18/17) While being treated for Cdiff. Doubt if true allergy. Penicillin (Verified Allergy, Severe, Anaphylaxis, 04/10/17) Sulfa (Verified Allergy, Severe, Anaphylaxis, 04/10/17) Erythromycin (Verified Allergy, Intermediate, Rash, 04/18/17) MRI PRECAUTION (Verified Adverse Reaction, Severe, BLADDER STIMULATOR, ) BRAIN ONLY ON RECEIVE ONLY COIL, P.O. 01/11/17, DML *MDRO Multi-Drug Resistant Organism (Verified Adverse Reaction, Unknown, MRSA, 04/10/17) MRSA PCR (nares) POSITIVE - 01/11/17 Demerol (Verified Adverse Reaction, Unknown, Psychosis, 04/10/17) Morphine (Verified Adverse Reaction, Unknown, Psychosis, 04/10/17) Percocet (Verified Adverse Reaction, Unknown, Psychosis, 04/10/17) Uncoded Allergies: surgical tape (Allergy, Severe, 12/15/13) Objective . Vital Signs Date Time Temp Pulse Resp B/P Pulse Ox O2 Delivery O2 Flow Rate FiO2 04/20/17 12:00 98.2 68 18 180/68 98 04/20/17 08:00 97.5 70 18 162/76 97 04/20/17 08:00 Room Air 04/20/17 04:00 Room Air 04/20/17 00:00 Room Air 04/20/17 00:00 98.2 76 16 160/78 95 04/19/17 20:00 Room Air 04/19/17 20:00 97.2 74 16 138/64 94 04/19/17 16:00 97.9 63 20 158/60 96 04/19/17 04/19/17 04/20/17 15:00 23:00 07:00 Intake Total 1265 ml 1827 ml 1229 ml Output Total 300 ml Balance 1265 ml 1827 ml 929 ml Intake Oral 720 ml 680 ml 120 ml IV Total 545 ml 1147 ml 1109 ml Output Urine Total 300 ml # Voids 3 2 2 # Bowel Movements 2 2 . Laboratory Tests Test 04/19/17 13:05 White Blood Count 19.8 TH/MM3 Red Blood Count 3.70 MIL/MM3 Hemoglobin 9.5 GM/DL Hematocrit 29.1 % Mean Corpuscular Volume 78.5 FL Mean Corpuscular Hemoglobin 25.6 PG Mean Corpuscular Hemoglobin 32.6 % Concent Red Cell Distribution Width 19.4 % Platelet Count 327 TH/MM3 Mean Platelet Volume 7.5 FL Neutrophils (%) (Auto) 78.4 % Lymphocytes (%) (Auto) 8.0 % Monocytes (%) (Auto) 12.3 % Eosinophils (%) (Auto) 1.2 % Basophils (%) (Auto) 0.1 % Neutrophils # (Auto) 15.5 TH/MM3 Lymphocytes # (Auto) 1.6 TH/MM3 Monocytes # (Auto) 2.4 TH/MM3 Eosinophils # (Auto) 0.2 TH/MM3 Basophils # (Auto) 0.0 TH/MM3 CBC Comment AUTO DIFF Differential Total Cells 100 Counted Neutrophils % (Manual) 72 % Band Neutrophils % 10 % Lymphocytes % 8 % Monocytes % 9 % Eosinophils % 1 % Neutrophils # (Manual) 16.2 TH/MM3 Differential Comment FINAL DIFF MANUAL Platelet Estimate NORMAL Platelet Morphology Comment NORMAL Ovalocytes 1+ Acanthocytes OCC Laboratory Tests Test 04/19/17 13:05 Sodium Level 139 MEQ/L Potassium Level 5.0 MEQ/L Chloride Level 109 MEQ/L Carbon Dioxide Level 22.4 MEQ/L Anion Gap 8 MEQ/L Blood Urea Nitrogen 29 MG/DL Creatinine 0.77 MG/DL Estimat Glomerular Filtration 99 ML/MIN Rate Random Glucose 263 MG/DL Calcium Level 8.3 MG/DL Microbiology Date/Time Procedure Status Source Growth 04/17/17 15:00 Cancelled Stool Stool 04/17/17 15:00 Stool Occult Blood (DARON) - Final Complete Stool Stool HEMOCCULT POSITIVE 04/17/17 18:01 Anselmo Batch Stool Stool 04/17/17 20:40 Aerobic Blood Culture - Preliminary Resulted Blood Peripheral NO GROWTH IN 3 DAYS 04/17/17 20:40 Anaerobic Blood Culture - Preliminary Resulted Blood Peripheral NO GROWTH IN 3 DAYS 04/17/17 20:55 Aerobic Blood Culture - Preliminary Resulted Blood Peripheral NO GROWTH IN 3 DAYS 04/17/17 20:55 Anaerobic Blood Culture - Preliminary Resulted Blood Peripheral NO GROWTH IN 3 DAYS Imaging Last Impressions Chest X-Ray 04/19/17 0000 Signed Impressions: Service Date/Time: Wednesday, April 19, 2017 10:55 - CONCLUSION: 1. Mild cardiomegaly. No acute findings. Richard Tripp MD Physical Exam GENERAL: This is a well-nourished, well-developed patient, in no apparent distress. SKIN: No rashes, ecchymoses or lesions. Cool and dry. HEAD: Atraumatic. Normocephalic. No temporal or scalp tenderness. EYES: Pupils equal round and reactive. Extraocular motions intact. No scleral icterus. No injection or drainage. ENT: Nose without bleeding, purulent drainage or septal hematoma. Throat without erythema, tonsillar hypertrophy or exudate. Uvula midline. Airway patent. NECK: Trachea midline. Supple, nontender, no meningeal signs. CARDIOVASCULAR: Regular rate and rhythm without murmurs, gallops, or rubs. RESPIRATORY: Clear to auscultation. Breath sounds equal bilaterally. No wheezes , rales, or rhonchi. GASTROINTESTINAL: Abdomen soft, non-tender, nondistended. MUSCULOSKELETAL: Extremities without clubbing, cyanosis, or edema. NEUROLOGICAL: Awake and alert. Grossly non focal Psych: cooperative IV line sites with no e.o infection. Assessment & Plan Remarks Cdiff Colitis with significant diarrhea. BNAP strain positive (patient has been on Levaquin off and on multiple courses as pt self reporting allergy to all mycins) Leucocytosis high grade, likely sepsis Immune compromised host (on chronic steroids) COPD Dementia: alcohol, senile. Recs Continue Oral Vanco 125 mg po every 6 hours. Monitor for signs of infection and allergy. Notify ID if any adverse reaction to vanco oral for alternative Cdiff medications. Follow cultures Follow clinically. Marita Osborne MD Apr 20, 2017 14:46
[2017-04-20 16:00] VITALS: BP 150/70; PULSE 66; RESP 18; TEMP 98.1; O2SAT 99
--- NOTE | 2017-04-20 16:13 | HHI.FPPN ---
Subjective Remarks Patient with c.diff colitis. He reports less frequent stools that are more well formed, although still having frequent loose stools. Overall he is feeling better. Has some cramping abdominal pain but improving. Tolerating full liquid diet. 4 bowel movements recorded in chart. (Дмитрий Duval MD R2) Objective Vitals Vital Signs Date Time Temp Pulse Resp B/P Pulse Ox O2 Delivery O2 Flow Rate FiO2 04/20/17 12:00 Room Air 04/20/17 12:00 98.2 68 18 180/68 98 04/20/17 08:00 97.5 70 18 162/76 97 04/20/17 08:00 Room Air 04/20/17 04:00 Room Air 04/20/17 00:00 Room Air 04/20/17 00:00 98.2 76 16 160/78 95 04/19/17 20:00 Room Air 04/19/17 20:00 97.2 74 16 138/64 94 I/O 04/19/17 04/19/17 04/19/17 04/20/17 04/20/17 04/20/17 07:00 15:00 23:00 07:00 15:00 23:00 Intake Total 1411 ml 1265 ml 1827 ml 1229 ml 1091 ml Output Total 300 ml Balance 1411 ml 1265 ml 1827 ml 929 ml 1091 ml Intake Oral 480 ml 720 ml 680 ml 120 ml IV Total 931 ml 545 ml 1147 ml 1109 ml 1091 ml Output Urine Total 300 ml # Voids 5 3 2 2 # Bowel Movements 5 2 2 (Дмитрий Duval MD R2) Result Diagram: 04/19/17 1305 04/19/17 1305 Imaging Last 72 hours Impressions Chest X-Ray 04/19/17 0000 Signed Impressions: Service Date/Time: Wednesday, April 19, 2017 10:55 - CONCLUSION: 1. Mild cardiomegaly. No acute findings. Richard Tripp MD Objective Remarks GENERAL: Sitting up in bed, no distress SKIN: No rashes, ecchymoses or lesions. HEAD: Atraumatic. Normocephalic. EYES: Extraocular motions intact. No scleral icterus. No injection or drainage. CARDIOVASCULAR: Regular rate and rhythm without murmurs, gallops, or rubs. RESPIRATORY: Mild wheezing diffusely. No distress. GASTROINTESTINAL: Abdomen soft, non-tender, mild distension. No guarding or rebound tenderness. Normoactive bowel sounds. MUSCULOSKELETAL: Extremities without clubbing, cyanosis, or edema. No joint tenderness, effusion, or edema noted. No calf tenderness. NEUROLOGICAL: Awake and alert. Cranial nerves II through XII grossly intact. Motor and sensory grossly within normal limits. Normal speech. (Дмитрий Duval MD R2) A/P Assessment and Plan 71yo man with h/o C. 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 Discharge Planning Pending evaluation and recommendations by ID, clinical improvement, and adequate outpatient treatment plan for c. diff. (Дмитрий Duval MD R2) Attending Attestation Patient seen and examined. Case reviewed and discussed with the resident team. Agree with plan of care as discussed with me and documented in the resident note. (Yoana Rodriguez MD) Problem List: (1) C. difficile diarrhea Status: Acute Plan: C.diff colitis after levaquin use for a COPD exacerbation. Allergic to vancomycin according to records. Blood cultures no growth x3 days. Infectious disease has been consulted for assistance with antibiotic management - PO Vancomycin 125mg q 6hrs - Patient monitored closely for allergy --> No report of adverse reactions Full liquid diet, advance as tolerated Stool hemoccult positive Monitor intake and output, record bowel movements - Monitor and replace electrolytes. PT for inability to walk, generalized weakness likely in the context of dehydration Zofran 4 mg IV push every 6 hours when necessary for nausea or vomiting (2) COPD (chronic obstructive pulmonary disease) Status: Chronic Plan: History of COPD presents after incomplete treatment of COPD exacerbation. Mild cardiomegaly on x-ray. Albuterol neb 2.5 mg neb every 4 hours when necessary for shortness of breath or wheezing DuoNeb 1 neb every 4 hours when necessary for shortness of breath or wheezing Continue home medication of Symbicort 2 puffs inhaled twice a day Prednisone 50mg daily. (3) Anemia Status: Acute Plan: Patient presented with anemia of 9.4. Hemoccult positive. Likely due to current c.diff infection; however, patient also has recent hx of recent GI bleed w/ EGD showing gastritis in December requiring 5 units of PRBCs. Hemoglobin currently stable. - Monitor hemoglobin/hematocrit. Consider GI consult for further evaluation if Hgb continues to decline (4) HTN (hypertension) Status: Acute Plan: BP's have been labile, antihypertensives initially held on admission due to concern for sepsis/hypotension. Will restart at this time. Continue diltiazem/Cardizem 240 mg BID Restart home lisinopril 40 mg daily Restart spironolactone 25 mg daily Clonidine prn BP >180/100 (5) FEN/PPX Status: Acute Plan: Fluids: Normal saline 125 mls/hr Electrolytes: Monitor and replace as necessary Nutrition: Full liquids, advance as tolerated DVT prophylaxis: Bilateral SCDs, defer anticoagulation due to + Hemoccult GI prophylaxis: Protonix 40mg daily Chronic medical problems: Continue home medications as below: [place] 325-10 mg 1 tab by mouth every 4 hours when necessary for pain 6-10 Aspirin 81 mg chew by mouth daily for cardiovascular disease Celexa 60 mg by mouth daily Flexeril 10 mg by mouth 3 times a day donepezil/Aricept 10 mg by mouth daily at bedtime Flonase 2 spray each nares twice a day Gabapentin 100 mg by mouth 3 times a day Latanoprost eyedrops 1 drop each eye daily at bedtime Ambien 5 million by mouth daily at bedtime when necessary for insomnia (Дмитрий Duval MD R2) Дмитрий Duval MD R2 Apr 20, 2017 16:13 Yoana Rodriguez MD Apr 20, 2017 16:20
[2017-04-20 20:00] VITALS: BP 180/70; PULSE 77; RESP 14; TEMP 98.6; O2SAT 98
[2017-04-20] MEDS: LISINOPRIL 20 MG TAB PO SCH (21:42)
[2017-04-20] MEDS: DONEPEZIL HCL 5 MG TAB PO SCH (21:43)
[2017-04-20] MEDS: ATORVASTATIN 40 MG TAB PO SCH (21:43)
[2017-04-20] MEDS: LATANOPROST 0.005% OPHT SOLN 2.5 ML BTL EACH EYE SCH (21:44)
[2017-04-20 22:15] VITALS: BP 160/80
[2017-04-21] VITALS (7 sets, daily range): BP systolic 132–184; BP diastolic 60–80; PULSE 58–69; RESP 16–18; TEMP 97.7–98.6; O2SAT 94–98
[2017-04-21 08:13] LABS: BICARBONATE 21.6 MEQ/L (21.0-32.0); POTASSIUM 4.7 MEQ/L (3.5-5.1)
[2017-04-21] MEDS: DILTIAZEM-CD 240 MG CAP ER PO SCH ×2 (08:14→21:23)
[2017-04-21] MEDS: GABAPENTIN 100 MG CAP PO SCH ×4 (08:14→17:50)
[2017-04-21] MEDS: PANTOPRAZOLE SOD 40 MG DELAYED RELEASE TAB PO SCH (08:14)
[2017-04-21] MEDS: CITALOPRAM HYDROBROMIDE 20 MG TAB PO SCH (08:14)
[2017-04-21] MEDS: CYCLOBENZAPRINE HCL 10 MG TAB PO SCH ×3 (08:15→17:45)
[2017-04-21] MEDS: SPIRONOLACTONE 25 MG TAB PO SCH (08:15)
[2017-04-21] MEDS: VANCOMYCIN 500 MG VIAL (FOR ORAL USE ONLY) PO SCH ×4 (08:15→21:24)
[2017-04-21] MEDS: predniSONE 50 MG TAB PO SCH (08:29)
[2017-04-21] MEDS: FLUTICASONE PROPIONATE 50 MCG/ACT 16 GM NASAL SPRAY EACH NARE SCH ×2 (08:30→21:30)
[2017-04-21] MEDS: BUDESONIDE-FORMOTEROL 160/4.5 MCG INHALER INH SCH ×2 (08:31→21:28)
[2017-04-21] MEDS: SODIUM CHLORIDE 0.9% FLUSH 10 ML FLUSH IV FLUSH SCH ×2 (08:33→21:00)
[2017-04-21 08:36] LABS: HEMATOCRIT 31.5 % (39.0-51.0); MEAN CELL VOLUME 83.3 FL (80.0-100.0); MEAN CORPUSCULAR HGB CONC 31.2 % (32.0-36.0); PLATELET COUNT 279 TH/MM3 (150-450); RED BLOOD COUNT 3.78 MIL/MM3 (4.50-5.90); RED CELL DISTRIBUTION WIDTH 18.8 % (11.6-17.2); REVIEW FLAG FINAL; WHITE BLOOD COUNT 12.2 TH/MM3 (4.0-11.0)
--- NOTE | 2017-04-21 10:30 | HHI.FPPN ---
Subjective Remarks No acute events. Continuing to have multiple loose bowel movements. Patient reports feeling minimally better compared to at admission. Reports no distension. Abdominal pain is mild. No nausea or vomiting. Reports no blood in the stools. Only eating part of his meals. (Дмитрий Duval MD R2) Objective Vitals Vital Signs Date Time Temp Pulse Resp B/P Pulse Ox O2 Delivery O2 Flow Rate FiO2 04/21/17 08:00 98.6 62 18 184/80 97 04/21/17 04:00 98.4 65 16 160/60 94 04/21/17 00:00 98.3 58 16 160/60 96 04/20/17 22:15 160/80 04/20/17 20:00 Room Air 04/20/17 20:00 98.6 77 14 180/70 98 04/20/17 16:00 98.1 66 18 150/70 99 04/20/17 16:00 Room Air 04/20/17 12:00 Room Air 04/20/17 12:00 98.2 68 18 180/68 98 I/O 04/20/17 04/20/17 04/20/17 04/21/17 04/21/17 04/21/17 07:00 15:00 23:00 07:00 15:00 23:00 Intake Total 1229 ml 1811 ml 905 ml 990 ml Output Total 300 ml 450 ml 700 ml 500 ml Balance 929 ml 1361 ml 205 ml 490 ml Intake Oral 120 ml 720 ml IV Total 1109 ml 1091 ml 905 ml 990 ml Output Urine Total 300 ml 450 ml 700 ml 500 ml # Voids 2 # Bowel Movements 2 4 1 2 (Дмитрий Duval MD R2) Result Diagram: 04/21/17 0640 04/21/17 0640 Imaging Last 72 hours Impressions Chest X-Ray 04/19/17 0000 Signed Impressions: Service Date/Time: Wednesday, April 19, 2017 10:55 - CONCLUSION: 1. Mild cardiomegaly. No acute findings. Richard Tripp MD Objective Remarks GENERAL: Sitting up in bed, no distress SKIN: No rashes, ecchymoses or lesions. HEAD: Atraumatic. Normocephalic. EYES: Extraocular motions intact. No scleral icterus. No injection or drainage. CARDIOVASCULAR: Regular rate and rhythm without murmurs, gallops, or rubs. RESPIRATORY: Mild wheezing diffusely. No distress. GASTROINTESTINAL: Abdomen soft, non-tender, mild distension. No guarding or rebound tenderness. Normoactive bowel sounds. MUSCULOSKELETAL: Extremities without clubbing, cyanosis, or edema. No joint tenderness, effusion, or edema noted. No calf tenderness. NEUROLOGICAL: Awake and alert. Cranial nerves II through XII grossly intact. Motor and sensory grossly within normal limits. Normal speech. (Дмитрий Duval MD R2) A/P Assessment and Plan 71yo man with h/o C. 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 Discharge Planning Pending evaluation and recommendations by ID, clinical improvement, and adequate outpatient treatment plan for c. diff. (Дмитрий Duval MD R2) Attending Attestation Patient seen and examined. Case reviewed and discussed with the resident team. Agree with plan of care as discussed with me and documented in the resident note. Also spoke with his nurse and his nurse aide who report that he had 4 loose stools today. (Yoana Rodriguez MD) Problem List: (1) C. difficile diarrhea Status: Acute Plan: C.diff colitis after levaquin use for a COPD exacerbation. Allergic to vancomycin and Flagyl according to records. Infectious disease has been consulted for assistance with antibiotic management - PO Vancomycin 125mg q 6hrs - Patient monitored closely for allergy --> No report of adverse reactions - May benefit from Rifaximin, defer to infectious disease - Probiotics Full liquid diet, advance as tolerated Monitor intake and output, record bowel movements - Monitor and replace electrolytes. PT for inability to walk, generalized weakness likely in the context of dehydration Zofran 4 mg IV push every 6 hours when necessary for nausea or vomiting (2) COPD (chronic obstructive pulmonary disease) Status: Chronic Plan: History of COPD presents after incomplete treatment of COPD exacerbation. Mild cardiomegaly on x-ray. Albuterol neb 2.5 mg neb every 4 hours when necessary for shortness of breath or wheezing DuoNeb 1 neb every 4 hours when necessary for shortness of breath or wheezing Continue home medication of Symbicort 2 puffs inhaled twice a day Prednisone 50mg daily started 6/5.. (3) Anemia Status: Acute Plan: Patient presented with anemia of 9.8. Hemoccult positive. Likely due to current c.diff infection; however, patient also has recent hx of recent GI bleed w/ EGD showing gastritis in December requiring 5 units of PRBCs. Hemoglobin currently stable. - Monitor hemoglobin/hematocrit. - May benefit from colonoscopy/EGD when stable (4) HTN (hypertension) Status: Acute Plan: Continue diltiazem/Cardizem 240 mg BID Restart home lisinopril 40 mg daily Restart spironolactone 25 mg daily Clonidine prn BP >180/100 (5) FEN/PPX Status: Acute Plan: Fluids: Normal saline 125 mls/hr Electrolytes: Monitor and replace as necessary Nutrition: Full liquids, advance as tolerated DVT prophylaxis: Bilateral SCDs, defer anticoagulation due to + Hemoccult GI prophylaxis: Protonix 40mg daily Chronic medical problems: Continue home medications as below: [place] 325-10 mg 1 tab by mouth every 4 hours when necessary for pain 6-10 Aspirin 81 mg chew by mouth daily for cardiovascular disease Celexa 60 mg by mouth daily Flexeril 10 mg by mouth 3 times a day donepezil/Aricept 10 mg by mouth daily at bedtime Flonase 2 spray each nares twice a day Gabapentin 100 mg by mouth 3 times a day Latanoprost eyedrops 1 drop each eye daily at bedtime Ambien 5 million by mouth daily at bedtime when necessary for insomnia (Дмитрий Duval MD R2) Дмитрий Duval MD R2 Apr 21, 2017 10:30 Yoana Rodriguez MD Apr 21, 2017 15:22
[2017-04-21] MEDS: cloNIDine HCL 0.1 MG TAB PO PRN (11:34)
[2017-04-21] MEDS: SODIUM CHLOR 0.9% 1000 ML INJ 1,000 ML IV SCH ×3 (12:48→21:24)
--- NOTE | 2017-04-21 17:23 | HHI.IDPN ---
Subjective Subjective Remarks is a 71 y/o CM with PMhx of Alcoholism, ? Alcohol induced dementia ( not on Rx Namenda made him goofy), COPD with exacerbations. Admitted with Cdiff sepsis. Patient was recently diagnosed with COPD exacerbation and was prescribed a 10 day course of Levaquin (and prednisone) last dose on 04/10/17. On Friday 04/13, patient started to have loose, mushy bowel movements, which has since progressed to watery, malodorous bowel movements. He was having about 10 bowel movements every 24 hours. They deny any blood or black coloration to his stool. That same day, Sunday 04/15, pt was seen by [facility]. The doctor there prescribed Welchol 625mg 1 tab bid. He only took two doses. Pt is scheduled for repeat endoscopy this coming April 29. ID was consulted for evaluation and Mment of Cdiff Colitis in presence of allergies. Overnight events reviewed. No fevers Diarrhea had 4 loose BMs today. WBC improving. Abdominal pain improved. No N/V. Antibiotics Vanco oral. Lines Line sites with no e.o infection Past Medical History reviewed Allergies: Coded Allergies: Bactrim (Verified Allergy, Severe, Anaphylaxis, 04/10/17) Flagyl (Verified Allergy, Severe, Fever, colitis, 04/18/17) While being treated for Cdiff. Doubt if true allergy. Penicillin (Verified Allergy, Severe, Anaphylaxis, 04/10/17) Sulfa (Verified Allergy, Severe, Anaphylaxis, 04/10/17) Erythromycin (Verified Allergy, Intermediate, Rash, 04/18/17) MRI PRECAUTION (Verified Adverse Reaction, Severe, BLADDER STIMULATOR, ) BRAIN ONLY ON RECEIVE ONLY COIL, P.O. 01/11/17, DML *MDRO Multi-Drug Resistant Organism (Verified Adverse Reaction, Unknown, MRSA, 04/10/17) MRSA PCR (nares) POSITIVE - 01/11/17 Demerol (Verified Adverse Reaction, Unknown, Psychosis, 04/10/17) Morphine (Verified Adverse Reaction, Unknown, Psychosis, 04/10/17) Percocet (Verified Adverse Reaction, Unknown, Psychosis, 04/10/17) Uncoded Allergies: surgical tape (Allergy, Severe, 12/15/13) Objective . Vital Signs Date Time Temp Pulse Resp B/P Pulse Ox O2 Delivery O2 Flow Rate FiO2 04/21/17 16:00 98.2 69 18 176/68 97 04/21/17 13:00 152/80 04/21/17 12:00 97.7 64 18 182/64 97 04/21/17 12:00 Room Air 04/21/17 08:00 Room Air 04/21/17 08:00 98.6 62 18 184/80 97 04/21/17 04:00 98.4 65 16 160/60 94 04/21/17 00:00 98.3 58 16 160/60 96 04/20/17 22:15 160/80 04/20/17 20:00 Room Air 04/20/17 20:00 98.6 77 14 180/70 98 04/20/17 04/20/17 04/21/17 15:00 23:00 07:00 Intake Total 1811 ml 905 ml 990 ml Output Total 450 ml 700 ml 500 ml Balance 1361 ml 205 ml 490 ml Intake Oral 720 ml IV Total 1091 ml 905 ml 990 ml Output Urine Total 450 ml 700 ml 500 ml # Bowel Movements 4 1 2 . Laboratory Tests Test 04/21/17 06:40 White Blood Count 12.2 TH/MM3 Red Blood Count 3.78 MIL/MM3 Hemoglobin 9.8 GM/DL Hematocrit 31.5 % Mean Corpuscular Volume 83.3 FL Mean Corpuscular Hemoglobin 26.0 PG Mean Corpuscular Hemoglobin 31.2 % Concent Red Cell Distribution Width 18.8 % Platelet Count 279 TH/MM3 Mean Platelet Volume 7.7 FL Laboratory Tests Test 04/21/17 06:40 Sodium Level 143 MEQ/L Potassium Level 4.7 MEQ/L Chloride Level 113 MEQ/L Carbon Dioxide Level 21.6 MEQ/L Anion Gap 8 MEQ/L Blood Urea Nitrogen 24 MG/DL Creatinine 0.77 MG/DL Estimat Glomerular Filtration 99 ML/MIN Rate Random Glucose 313 MG/DL Calcium Level 8.3 MG/DL Imaging Last Impressions Chest X-Ray 04/19/17 0000 Signed Impressions: Service Date/Time: Wednesday, April 19, 2017 10:55 - CONCLUSION: 1. Mild cardiomegaly. No acute findings. Richard Tripp MD Physical Exam GENERAL: This is a well-nourished, well-developed patient, in no apparent distress. SKIN: No rashes, ecchymoses or lesions. Cool and dry. HEAD: Atraumatic. Normocephalic. No temporal or scalp tenderness. EYES: Pupils equal round and reactive. Extraocular motions intact. No scleral icterus. No injection or drainage. ENT: Nose without bleeding, purulent drainage or septal hematoma. Throat without erythema, tonsillar hypertrophy or exudate. Uvula midline. Airway patent. NECK: Trachea midline. Supple, nontender, no meningeal signs. CARDIOVASCULAR: Regular rate and rhythm without murmurs, gallops, or rubs. RESPIRATORY: Clear to auscultation. Breath sounds equal bilaterally. No wheezes , rales, or rhonchi. GASTROINTESTINAL: Abdomen soft, non-tender, nondistended. MUSCULOSKELETAL: Extremities without clubbing, cyanosis, or edema. NEUROLOGICAL: Awake and alert. Grossly non focal Psych: cooperative IV line sites with no e.o infection. Assessment & Plan Remarks Cdiff Colitis with significant diarrhea. ? Post infectious Inflammatory bowel related large volume liquid diarrhea. BNAP strain positive (patient has been on Levaquin off and on multiple courses as pt self reporting allergy to all mycins) Leucocytosis high grade, likely sepsis Immune compromised host (on chronic steroids) COPD Dementia: alcohol, senile. Recs Continue Oral Vanco 125 mg po every 6 hours. Add Asacol for post infectious inflammatory diarrhea. Plan on 7 days. If continues to improve in terms of diarrhea can be discharged from ID standpoint. Will follow in am to decide. Monitor for signs of infection and allergy. Notify ID if any adverse reaction to vanco oral for alternative Cdiff medications. Follow cultures Follow clinically. Marita Osborne MD Apr 21, 2017 17:23
[2017-04-21] MEDS: LACTOBACILLUS ACIDOPHILUS TAB PO SCH (17:45)
[2017-04-21] MEDS ORDERED: LACTOBACILLUS ACIDOPHILUS 1 GM PACKET PO SCH (18:00)
[2017-04-21] MEDS: DONEPEZIL HCL 5 MG TAB PO SCH (21:22)
[2017-04-21] MEDS: ATORVASTATIN 40 MG TAB PO SCH (21:22)
[2017-04-21] MEDS: LISINOPRIL 20 MG TAB PO SCH (21:23)
[2017-04-21] MEDS: MESALAMINE HD 800 MG DELAYED RELEASE TAB PO SCH (21:24)
[2017-04-21] MEDS: LATANOPROST 0.005% OPHT SOLN 2.5 ML BTL EACH EYE SCH (21:31)
[2017-04-21] MEDS: ZOLPIDEM TARTRATE 5 MG TAB PO PRN (23:50)
[2017-04-22] VITALS (7 sets, daily range): BP systolic 127–211; BP diastolic 52–90; PULSE 61–89; RESP 16–18; TEMP 97.9–98.8; O2SAT 94–98
[2017-04-22] MEDS: SODIUM CHLOR 0.9% 1000 ML INJ 1,000 ML IV SCH ×2 (06:00→14:15)
[2017-04-22] MEDS: MESALAMINE HD 800 MG DELAYED RELEASE TAB PO SCH ×3 (06:01→20:41)
[2017-04-22 07:32] LABS: HEMATOCRIT 31.8 % (39.0-51.0); MEAN CELL VOLUME 80.3 FL (80.0-100.0); MEAN CORPUSCULAR HEMOGLOBIN 25.2 PG (27.0-34.0); MEAN CORPUSCULAR HGB CONC 31.4 % (32.0-36.0); PLATELET COUNT 300 TH/MM3 (150-450); RED BLOOD COUNT 3.96 MIL/MM3 (4.50-5.90); REVIEW FLAG FINAL
[2017-04-22 08:00] LABS: BICARBONATE 27.8 MEQ/L (21.0-32.0); POTASSIUM 3.8 MEQ/L (3.5-5.1)
[2017-04-22] MEDS: SODIUM CHLORIDE 0.9% FLUSH 10 ML FLUSH IV FLUSH SCH ×2 (09:46→21:00)
[2017-04-22] MEDS: BUDESONIDE-FORMOTEROL 160/4.5 MCG INHALER INH SCH ×2 (09:53→20:43)
[2017-04-22] MEDS: VANCOMYCIN 500 MG VIAL (FOR ORAL USE ONLY) PO SCH ×4 (09:53→20:42)
[2017-04-22] MEDS: FLUTICASONE PROPIONATE 50 MCG/ACT 16 GM NASAL SPRAY EACH NARE SCH ×2 (09:54→20:43)
[2017-04-22] MEDS: CYCLOBENZAPRINE HCL 10 MG TAB PO SCH ×3 (09:55→18:06)
[2017-04-22] MEDS: NYSTATIN SUSP 500,000 U/5 ML CUP SWISH-SWAL SCH ×4 (09:55→20:42)
[2017-04-22] MEDS: GABAPENTIN 400 MG CAP PO SCH ×3 (09:55→18:07)
[2017-04-22] MEDS: SPIRONOLACTONE 25 MG TAB PO SCH (09:55)
[2017-04-22] MEDS: PANTOPRAZOLE SOD 40 MG DELAYED RELEASE TAB PO SCH (09:55)
[2017-04-22] MEDS: DILTIAZEM-CD 240 MG CAP ER PO SCH ×2 (09:55→20:41)
[2017-04-22] MEDS: predniSONE 50 MG TAB PO SCH (09:55)
[2017-04-22] MEDS: LACTOBACILLUS ACIDOPHILUS TAB PO SCH ×3 (09:55→18:07)
[2017-04-22] MEDS: CITALOPRAM HYDROBROMIDE 20 MG TAB PO SCH (09:55)
[2017-04-22] MEDS: cloNIDine HCL 0.1 MG TAB PO PRN (09:55)
--- NOTE | 2017-04-22 12:30 | HHI.FPPN ---
Subjective Remarks Patient had 7 bowel movements overnight. Per the nurse there was some blood in the stool. Also with thrush in the mouth. Patient is eating only 25% of his meals. Has cramping in his abdominal, no severe pain. Able to get up and walk with a walker. Still feels weaker than his baseline. Also with rash around anal area from stool. (Дмитрий Duval MD R2) Objective Vitals Vital Signs Date Time Temp Pulse Resp B/P Pulse Ox O2 Delivery O2 Flow Rate FiO2 04/22/17 12:00 98.6 80 18 154/71 96 04/22/17 09:45 Room Air 04/22/17 08:00 97.9 78 18 211/86 98 190/70 04/22/17 04:00 Room Air 04/22/17 04:00 98.8 61 18 162/60 94 04/22/17 00:00 98.5 64 16 142/52 97 04/22/17 00:00 Room Air 04/21/17 20:00 Room Air 04/21/17 20:00 98.2 69 18 132/66 98 04/21/17 16:00 Room Air 04/21/17 16:00 98.2 69 18 176/68 97 04/21/17 13:00 152/80 I/O 04/21/17 04/21/17 04/21/17 04/22/17 04/22/17 04/22/17 07:00 15:00 23:00 07:00 15:00 23:00 Intake Total 990 ml 2070 ml 959 ml 949 ml Output Total 500 ml 300 ml 1300 ml 1600 ml Balance 490 ml 1770 ml -341 ml -651 ml Intake Oral 720 ml 0 ml 0 ml IV Total 990 ml 1350 ml 959 ml 949 ml Output Urine Total 500 ml 300 ml 1300 ml 1600 ml # Bowel Movements 2 4 2 3 (Дмитрий Duval MD R2) Result Diagram: 04/22/17 0702 04/22/17 07 Objective Remarks GENERAL: Sitting up in bed, no distress SKIN: No rashes, ecchymoses or lesions. HEAD: Atraumatic. Normocephalic. EYES: Extraocular motions intact. No scleral icterus. No injection or drainage. CARDIOVASCULAR: Regular rate and rhythm without murmurs, gallops, or rubs. RESPIRATORY: Mild wheezing diffusely. No distress. GASTROINTESTINAL: Abdomen soft, non-tender, mild distension. No guarding or rebound tenderness. Normoactive bowel sounds. MUSCULOSKELETAL: Extremities without clubbing, cyanosis, or edema. No joint tenderness, effusion, or edema noted. No calf tenderness. NEUROLOGICAL: Awake and alert. Cranial nerves II through XII grossly intact. Motor and sensory grossly within normal limits. Normal speech. (Дмитрий Duval MD R2) A/P Assessment and Plan 71yo man with h/o C. 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 Discharge Planning Pending evaluation and recommendations by ID, clinical improvement, and adequate outpatient treatment plan for c. diff. (Дмитрий Duval MD R2) Attending Attestation Patient seen and examined. Case reviewed and discussed with the resident team. Agree with plan of care as discussed with me and documented in the resident note. May benefit from barrier cream on buttocks. (Yoana Rodriguez MD) Problem List: (1) C. difficile diarrhea Status: Acute Plan: C.diff colitis after levaquin use for a COPD exacerbation. Allergic to vancomycin and Flagyl according to records. Infectious disease has been consulted for assistance with antibiotic management - PO Vancomycin 125mg q 6hrs - Patient monitored closely for allergy --> No report of adverse reactions - May benefit from Rifaximin, defer to infectious disease - Added mesalamine for 7 days - Probiotics Full liquid diet, advance as tolerated Monitor intake and output, record bowel movements - Monitor and replace electrolytes. PT for inability to walk, generalized weakness likely in the context of dehydration Zofran 4 mg IV push every 6 hours when necessary for nausea or vomiting (2) Thrush, oral Status: Acute Plan: Likely from antibiotics - Started Nystatin swish (3) Contact dermatitis Status: Acute Plan: Likely from diarrhea, dermatitis around anal area - Keep area dry and clean as much as possible - Barrier cream (4) GI bleed Status: Acute Plan: GI bleeding, likely from c-diff inflammation. Hemoglobin stable. However , he does have a history of upper GI bleed with gastritis, required transfusion in the past. - Low threshold to consult GI if not resolving, or if hemoglobin dropping. (5) COPD (chronic obstructive pulmonary disease) Status: Chronic Plan: History of COPD presents after incomplete treatment of COPD exacerbation. Mild cardiomegaly on x-ray. Albuterol neb 2.5 mg neb every 4 hours when necessary for shortness of breath or wheezing DuoNeb 1 neb every 4 hours when necessary for shortness of breath or wheezing Continue home medication of Symbicort 2 puffs inhaled twice a day Prednisone 50mg daily started 04/20.. (6) Anemia Status: Acute Plan: Patient presented with anemia of 9.8. Hemoccult positive. Likely due to current c.diff infection; however, patient also has recent hx of recent GI bleed w/ EGD showing gastritis in December requiring 5 units of PRBCs. Hemoglobin currently stable. - Monitor hemoglobin/hematocrit. - May benefit from colonoscopy/EGD when stable (7) HTN (hypertension) Status: Acute Plan: Continue diltiazem/Cardizem 240 mg BID Restart home lisinopril 40 mg daily Restart spironolactone 25 mg daily Clonidine prn BP >180/100 (8) FEN/PPX Status: Acute Plan: Fluids: Normal saline 125 mls/hr Electrolytes: Monitor and replace as necessary Nutrition: Full liquids, advance as tolerated DVT prophylaxis: Bilateral SCDs, defer anticoagulation due to + Hemoccult GI prophylaxis: Protonix 40mg daily Chronic medical problems: Continue home medications as below: [place] 325-10 mg 1 tab by mouth every 4 hours when necessary for pain 6-10 Aspirin 81 mg chew by mouth daily for cardiovascular disease Celexa 60 mg by mouth daily Flexeril 10 mg by mouth 3 times a day donepezil/Aricept 10 mg by mouth daily at bedtime Flonase 2 spray each nares twice a day Gabapentin 100 mg by mouth 3 times a day Latanoprost eyedrops 1 drop each eye daily at bedtime Ambien 5 million by mouth daily at bedtime when necessary for insomnia (Дмитрий Duval MD R2) Дмитрий Duval MD R2 Apr 22, 2017 12:30 Yoana Rodriguez MD Apr 22, 2017 15:50
[2017-04-22] MEDS: PETROLATUM 49%/ZINC OXIDE 15% 4 OUNCE TUBE TOPICAL SCH (14:18)
[2017-04-22] MEDS: FIDAXOMICIN 200 MG TAB PO SCH ×2 (14:18→20:39)
--- NOTE | 2017-04-22 15:18 | PD.CONS ---
HPI History of Present Illness This is a 71 year old [gentleman] w/ hx e coli bacteremia in December, cholecystitis with cholecystostomy tube, melena who is now being treated for c diff. He has had diarrhea for 2 weeks and there was a report of blood in stool but no further info. Per RN his perianal area is excoriated. He denies n/v, abd pain, and has not seen any blood, nor has his . He has been on numerous antibiotics during last hospitalization in December. He had an ERCP in Dec as well, EGD showed gastritis. Last colonoscopy was 2003 (Deepti Perez) PFSH Past Medical History per EMR glaucoma HTN COPD mild dementia TIA hx ETOH abuse Past Surgical History see EMR (Deepti Perez) Coded Allergies: Bactrim (Verified Allergy, Severe, Anaphylaxis, 04/10/17) Flagyl (Verified Allergy, Severe, Fever, colitis, 04/18/17) While being treated for Cdiff. Doubt if true allergy. Penicillin (Verified Allergy, Severe, Anaphylaxis, 04/10/17) Sulfa (Verified Allergy, Severe, Anaphylaxis, 04/10/17) Erythromycin (Verified Allergy, Intermediate, Rash, 04/18/17) MRI PRECAUTION (Verified Adverse Reaction, Severe, BLADDER STIMULATOR, ) BRAIN ONLY ON RECEIVE ONLY COIL, P.O. 01/11/17, DML *MDRO Multi-Drug Resistant Organism (Verified Adverse Reaction, Unknown, MRSA, 04/10/17) MRSA PCR (nares) POSITIVE - 01/11/17 Demerol (Verified Adverse Reaction, Unknown, Psychosis, 04/10/17) Morphine (Verified Adverse Reaction, Unknown, Psychosis, 04/10/17) Percocet (Verified Adverse Reaction, Unknown, Psychosis, 04/10/17) Uncoded Allergies: surgical tape (Allergy, Severe, 12/15/13) Family History [place] glaucoma Social History former smoker no ETOH since 2007, prior heavy drinker no illicit drugs (Deepti Perez) Review of Systems Constitutional: COMPLAINS OF: Fever (on initial presentation) Eyes: DENIES: Photosensitivity Ears, nose, mouth, throat: DENIES: Hearing loss Respiratory: DENIES: Cough Cardiovascular: DENIES: Chest pain Gastrointestinal: COMPLAINS OF: Diarrhea, DENIES: Abdominal pain, Black stools , Bloody stools, Constipation, Nausea, Vomiting Genitourinary: DENIES: Hematuria Musculoskeletal: DENIES: Muscle aches Integumentary: DENIES: Abnormal pigmentation Neurologic: DENIES: Headache Psychiatric: DENIES: Anxiety (Deepti Perez) GI Exam Vitals I&O Vital Signs Date Time Temp Pulse Resp B/P Pulse Ox O2 Delivery O2 Flow Rate FiO2 04/22/17 12:00 98.6 80 18 154/71 96 04/22/17 09:45 Room Air 04/22/17 08:00 97.9 78 18 211/86 98 190/70 04/22/17 04:00 Room Air 04/22/17 04:00 98.8 61 18 162/60 94 04/22/17 00:00 98.5 64 16 142/52 97 04/22/17 00:00 Room Air 04/21/17 20:00 Room Air 04/21/17 20:00 98.2 69 18 132/66 98 04/21/17 16:00 Room Air 04/21/17 16:00 98.2 69 18 176/68 97 I/O 04/21/17 04/21/17 04/21/17 04/22/17 04/22/17 04/22/17 07:00 15:00 23:00 07:00 15:00 23:00 Intake Total 990 ml 2070 ml 959 ml 949 ml 1011 ml Output Total 500 ml 300 ml 1300 ml 1600 ml Balance 490 ml 1770 ml -341 ml -651 ml 1011 ml Intake Oral 720 ml 0 ml 0 ml IV Total 990 ml 1350 ml 959 ml 949 ml 1011 ml Output Urine Total 500 ml 300 ml 1300 ml 1600 ml # Bowel Movements 2 4 2 3 Imaging Last Impressions Chest X-Ray 04/19/17 0000 Signed Impressions: Service Date/Time: Wednesday, April 19, 2017 10:55 - CONCLUSION: 1. Mild cardiomegaly. No acute findings. Richard Tripp MD Laboratory Test 04/22/17 07:02 White Blood Count 13.0 TH/MM3 Red Blood Count 3.96 MIL/MM3 Hemoglobin 10.0 GM/DL Hematocrit 31.8 % Mean Corpuscular Volume 80.3 FL Mean Corpuscular Hemoglobin 25.2 PG Mean Corpuscular Hemoglobin 31.4 % Concent Red Cell Distribution Width 19.0 % Platelet Count 300 TH/MM3 Mean Platelet Volume 7.5 FL Sodium Level 143 MEQ/L Potassium Level 3.8 MEQ/L Chloride Level 109 MEQ/L Carbon Dioxide Level 27.8 MEQ/L Anion Gap 6 MEQ/L Blood Urea Nitrogen 14 MG/DL Creatinine 0.62 MG/DL Estimat Glomerular Filtration 128 ML/MIN Rate Random Glucose 174 MG/DL Calcium Level 8.2 MG/DL Date/Time Procedure Status Source Growth 04/17/17 20:55 Aerobic Blood Culture - Final Complete Blood Peripheral NO GROWTH IN 5 DAYS 04/17/17 20:55 Anaerobic Blood Culture - Final Complete Blood Peripheral NO GROWTH IN 5 DAYS 04/17/17 18:01 Anselmo Batch Stool Stool Physical Examination HEENT: EOMI; normocephalic; atraumatic; no jaundice. CHEST: lung sounds diminished CARDIAC: Regular rate and rhythm with no murmur gallop or rubs. ABDOMEN: Soft, protuberant, nontender; no hepatosplenomegaly; bowel sounds are present in all four quadrants. EXTREMITIES: No clubbing, cyanosis, or edema. SKIN: Normal; no rash; no jaundice. RESOURCE TECHNICIAN: No focal deficits; alert and oriented times three. (Deepti Perez) Assessment and Plan Plan ASSESSMENT - diarrhea - onset 2w ago. pos c diff. Has been on an off antibiotics, treated for PNA in February. Hx e coli bacteremia in Dec. - reflux - c/o acid reflux since being in hospital. Discussed possibility of EGD /colonoscopy with pt and his . - mild dementia - per , EMR PLAN - consider EGD/colonoscopy vs waiting - supportive care - consider probiotics - further recommendations after Dr Melissa sees pt This pt seen by myself and Dr Melissa and this note is written on his behalf. ( Deepti Perez) Physician Comments Seen and examined, plan as above, further recommendations to follow. (Maci Melissa MD) Deepti Perez Apr 22, 2017 15:18 Maci Melissa MD Apr 24, 2017 11:15
[2017-04-22] MEDS ORDERED: DIATRIZOATE MEGLUM/DIATRIZOATE SOD 9 ML CUP PO ONE (15:30)
--- NOTE | 2017-04-22 16:09 | HHI.IDPN ---
Subjective Subjective Remarks is a 71 y/o CM with PMhx of Alcoholism, ? Alcohol induced dementia ( not on Rx Namenda made him goofy), COPD with exacerbations. Admitted with Cdiff sepsis. Patient was recently diagnosed with COPD exacerbation and was prescribed a 10 day course of Levaquin (and prednisone) last dose on 04/10/17. On Friday 04/13, patient started to have loose, mushy bowel movements, which has since progressed to watery, malodorous bowel movements. He was having about 10 bowel movements every 24 hours. They deny any blood or black coloration to his stool. That same day, Sunday 04/15, pt was seen by [facility]. The doctor there prescribed Welchol 625mg 1 tab bid. He only took two doses. Pt is scheduled for repeat endoscopy this coming April 29. ID was consulted for evaluation and Mment of Cdiff Colitis in presence of allergies. Overnight events reviewed. No fevers Diarrhea had 7 loose BMs overnight details not known. WBC improving. Abdominal pain still present. No N/V. Antibiotics Vanco oral. Asacol Lines Line sites with no e.o infection Past Medical History reviewed Allergies: Coded Allergies: Bactrim (Verified Allergy, Severe, Anaphylaxis, 04/10/17) Flagyl (Verified Allergy, Severe, Fever, colitis, 04/18/17) While being treated for Cdiff. Doubt if true allergy. Penicillin (Verified Allergy, Severe, Anaphylaxis, 04/10/17) Sulfa (Verified Allergy, Severe, Anaphylaxis, 04/10/17) Erythromycin (Verified Allergy, Intermediate, Rash, 04/18/17) MRI PRECAUTION (Verified Adverse Reaction, Severe, BLADDER STIMULATOR, ) BRAIN ONLY ON RECEIVE ONLY COIL, P.O. 01/11/17, DML *MDRO Multi-Drug Resistant Organism (Verified Adverse Reaction, Unknown, MRSA, 04/10/17) MRSA PCR (nares) POSITIVE - 01/11/17 Demerol (Verified Adverse Reaction, Unknown, Psychosis, 04/10/17) Morphine (Verified Adverse Reaction, Unknown, Psychosis, 04/10/17) Percocet (Verified Adverse Reaction, Unknown, Psychosis, 04/10/17) Uncoded Allergies: surgical tape (Allergy, Severe, 12/15/13) Objective . Vital Signs Date Time Temp Pulse Resp B/P Pulse Ox O2 Delivery O2 Flow Rate FiO2 04/22/17 12:00 98.6 80 18 154/71 96 04/22/17 09:45 Room Air 04/22/17 08:00 97.9 78 18 211/86 98 190/70 04/22/17 04:00 Room Air 04/22/17 04:00 98.8 61 18 162/60 94 04/22/17 00:00 98.5 64 16 142/52 97 04/22/17 00:00 Room Air 04/21/17 20:00 Room Air 04/21/17 20:00 98.2 69 18 132/66 98 04/21/17 04/21/17 04/22/17 15:00 23:00 07:00 Intake Total 2070 ml 959 ml 949 ml Output Total 300 ml 1300 ml 1600 ml Balance 1770 ml -341 ml -651 ml Intake Oral 720 ml 0 ml 0 ml IV Total 1350 ml 959 ml 949 ml Output Urine Total 300 ml 1300 ml 1600 ml # Bowel Movements 4 2 3 . Laboratory Tests Test 04/21/17 04/22/17 06:40 07:02 White Blood Count 12.2 TH/MM3 13.0 TH/MM3 Red Blood Count 3.78 MIL/MM3 3.96 MIL/MM3 Hemoglobin 9.8 GM/DL 10.0 GM/DL Hematocrit 31.5 % 31.8 % Mean Corpuscular Volume 83.3 FL 80.3 FL Mean Corpuscular Hemoglobin 26.0 PG 25.2 PG Mean Corpuscular Hemoglobin 31.2 % 31.4 % Concent Red Cell Distribution Width 18.8 % 19.0 % Platelet Count 279 TH/MM3 300 TH/MM3 Mean Platelet Volume 7.7 FL 7.5 FL Laboratory Tests Test 04/21/17 04/22/17 06:40 07:02 Sodium Level 143 MEQ/L 143 MEQ/L Potassium Level 4.7 MEQ/L 3.8 MEQ/L Chloride Level 113 MEQ/L 109 MEQ/L Carbon Dioxide Level 21.6 MEQ/L 27.8 MEQ/L Anion Gap 8 MEQ/L 6 MEQ/L Blood Urea Nitrogen 24 MG/DL 14 MG/DL Creatinine 0.77 MG/DL 0.62 MG/DL Estimat Glomerular Filtration 99 ML/MIN 128 ML/MIN Rate Random Glucose 313 MG/DL 174 MG/DL Calcium Level 8.3 MG/DL 8.2 MG/DL Imaging Last Impressions Chest X-Ray 04/19/17 0000 Signed Impressions: Service Date/Time: Wednesday, April 19, 2017 10:55 - CONCLUSION: 1. Mild cardiomegaly. No acute findings. Richard Tripp MD Physical Exam GENERAL: This is a well-nourished, well-developed patient, in no apparent distress. SKIN: No rashes, ecchymoses or lesions. Cool and dry. HEAD: Atraumatic. Normocephalic. No temporal or scalp tenderness. EYES: Pupils equal round and reactive. Extraocular motions intact. No scleral icterus. No injection or drainage. ENT: Nose without bleeding, purulent drainage or septal hematoma. Throat without erythema, tonsillar hypertrophy or exudate. Uvula midline. Airway patent. NECK: Trachea midline. Supple, nontender, no meningeal signs. CARDIOVASCULAR: Regular rate and rhythm without murmurs, gallops, or rubs. RESPIRATORY: Clear to auscultation. Breath sounds equal bilaterally. No wheezes , rales, or rhonchi. GASTROINTESTINAL: Abdomen soft, non-tender, nondistended. MUSCULOSKELETAL: Extremities without clubbing, cyanosis, or edema. NEUROLOGICAL: Awake and alert. Grossly non focal Psych: cooperative IV line sites with no e.o infection. Assessment & Plan Remarks Cdiff Colitis with significant diarrhea. ? Post infectious Inflammatory bowel related large volume liquid diarrhea. BNAP strain positive (patient has been on Levaquin off and on multiple courses as pt self reporting allergy to all mycins) Leucocytosis high grade, likely sepsis Immune compromised host (on chronic steroids) COPD Dementia: alcohol, senile. Recs Continue Oral Vanco 125 mg po every 6 hours. Continue Asacol for post infectious inflammatory diarrhea. Consult GI (panendoscopy, complains of GERD like symptoms as well in addition to persistent diarrhea) [facility]. CT Abd/pelvis to look for any e/o colitis. Monitor for signs of infection and allergy. Notify ID if any adverse reaction to vanco oral for alternative Cdiff medications. Follow cultures Follow clinically. I will be OOT from 04/23/17 to 04/26/17. covering for tn 04/22-04/23. covering for me this weekend. Marita Osborne MD Apr 22, 2017 16:09
[2017-04-22] MEDS ORDERED: IOHEXOL 350 MG/ML 10 ML VIAL (for RAD DIAG) IV ONE (19:20)
--- NOTE | 2017-04-22 19:41 | RADRPT ---
EXAM DATE/TIME: 04/22/2017 19:17 [facility] COMPARISON: CT ABDOMEN & PELVIS W/O CONTRAST, January 29, 2017, 10:23. INDICATIONS : Diffuse abdomen pain. History of renal calculi.. Pleural effusions. IV CONTRAST: 85 cc Omnipaque 350 (iohexol) IV ORAL CONTRAST: Prescribed oral contrast ingested. RADIATION DOSE: 14.14 CTDIvol (mGy) MEDICAL HISTORY : Hypertension. Dementia. Chronic obstructive pulmonary disease. Pancreatitis, Kidney stones SURGICAL HISTORY : Appendectomy. Bladder stim, Lithotripsy. ENCOUNTER: Initial ACUITY: 1 day PAIN SCALE: Non-responsive LOCATION: Bilateral lower quadrant TECHNIQUE: Volumetric scanning of the abdomen and pelvis was performed. Using automated exposure control and ad justment of the mA and/or kV according to patient size, radiation dose was kept as low as reasonably achievable to obtain optimal diagnostic quality images. FINDINGS: LOWER LUNGS: There are small pleural effusions again noted left greater than right. There is a small amount of per icardial fluid as well. LIVER: Homogeneous density without lesion. There is no dilation of the biliary tree. No calcified gallston es. SPLEEN: Normal size without lesion. PANCREAS: Within normal limits. KIDNEYS: Normal in size and shape. There is no mass or hydronephrosis. There are small nonobstructing bilater al renal calculi again noted. ADRENAL GLANDS: Stable in appearance. The right adrenal gland is unremarkable. There is stable nodularity in appearan ce adrenal adenoma the left adrenal gland. VASCULAR: There is no aortic aneurysm. BOWEL/MESENTERY: There are multiple loops of nondilated air-containing small bowel with multiple small air-fluid level s. Gas and stool are noted segmentally in the colon. There is mild distention portions of the right s kg of the colon. There is a small amount of ascitic fluid scattered in the abdomen and pelvis. Small amount of ascitic fluid along the lateral liver margin. There is evidence of anasarca with increased density in the subcutaneous and mesenteric fat. There is a high density small metallic structure not ed along the posterior aspect of the stomach with streak artifact. This is new from the prior study a nd measures up to approximately 1 cm. A duodenal diverticulum is again noted. ABDOMINAL WALL: Within normal limits. RETROPERITONEUM: There is no lymphadenopathy. BLADDER: No wall thickening or mass. REPRODUCTIVE: APL implant is again noted with partially calcified reservoir in the anterior right side of the pelvi s. INGUINAL: There is no lymphadenopathy or hernia. MUSCULOSKELETAL: Osteopenia, degenerative change and scoliosis are again noted. CONCLUSION: 1. Nonspecific bowel gas pattern which may represent an ileus or gastroenteritis. 2. Mild ascitic fluid in the abdomen and pelvis. 3. Small pleural effusions again noted left greater than right. 4. Small amount of pericardial fluid now noted. 5. Stable left adrenal adenoma.. 6. Small bilateral nonobstructing renal calculi. 7. New high density apparent metallic structure along the posterior stomach of unclear significance. This may or present an interval bullet fragment or other structure. 8. There is anasarca. Дмитрий Hoyos MD on April 22, 2017 at 19:31 Board Certified Radiologist. This report was verified electronically.
[2017-04-22] MEDS: LISINOPRIL 20 MG TAB PO SCH (20:39)
[2017-04-22] MEDS: DONEPEZIL HCL 5 MG TAB PO SCH (20:41)
[2017-04-22] MEDS: ATORVASTATIN 40 MG TAB PO SCH (20:41)
[2017-04-22] MEDS: LATANOPROST 0.005% OPHT SOLN 2.5 ML BTL EACH EYE SCH (20:44)
[2017-04-22] MEDS: ZOLPIDEM TARTRATE 5 MG TAB PO PRN (23:47)
[2017-04-23] MEDS: SODIUM CHLOR 0.9% 1000 ML INJ 1,000 ML IV SCH ×3 (04:16→22:11)
[2017-04-23 05:07] VITALS: BP 157/70; PULSE 66; RESP 18; TEMP 97.5; O2SAT 97
[2017-04-23] MEDS: MESALAMINE HD 800 MG DELAYED RELEASE TAB PO SCH ×3 (06:01→22:14)
[2017-04-23 07:53] LABS: HEMATOCRIT 31.3 % (39.0-51.0); MEAN CELL VOLUME 79.6 FL (80.0-100.0); MEAN CORPUSCULAR HEMOGLOBIN 25.4 PG (27.0-34.0); MEAN CORPUSCULAR HGB CONC 31.8 % (32.0-36.0); PLATELET COUNT 319 TH/MM3 (150-450); RED BLOOD COUNT 3.94 MIL/MM3 (4.50-5.90); RED CELL DISTRIBUTION WIDTH 18.5 % (11.6-17.2); REVIEW FLAG FINAL; WHITE BLOOD COUNT 14.6 TH/MM3 (4.0-11.0)
[2017-04-23 08:00] VITALS: BP 163/72; PULSE 74; RESP 20; TEMP 97.9; O2SAT 96
[2017-04-23 08:21] LABS: BICARBONATE 28.6 MEQ/L (21.0-32.0); POTASSIUM 3.4 MEQ/L (3.5-5.1)
[2017-04-23] MEDS: BUDESONIDE-FORMOTEROL 160/4.5 MCG INHALER INH SCH ×2 (09:00→21:00)
[2017-04-23] MEDS: PETROLATUM 49%/ZINC OXIDE 15% 4 OUNCE TUBE TOPICAL SCH (09:00)
[2017-04-23] MEDS: NYSTATIN SUSP 500,000 U/5 ML CUP SWISH-SWAL SCH ×4 (09:52→22:16)
[2017-04-23] MEDS: predniSONE 50 MG TAB PO SCH (09:53)
[2017-04-23] MEDS: GABAPENTIN 400 MG CAP PO SCH ×3 (09:53→18:00)
[2017-04-23] MEDS: PANTOPRAZOLE SOD 40 MG DELAYED RELEASE TAB PO SCH (09:53)
[2017-04-23] MEDS: SPIRONOLACTONE 25 MG TAB PO SCH (09:53)
[2017-04-23] MEDS: DILTIAZEM-CD 240 MG CAP ER PO SCH ×2 (09:53→22:15)
[2017-04-23] MEDS: CYCLOBENZAPRINE HCL 10 MG TAB PO SCH ×3 (09:53→18:28)
[2017-04-23] MEDS: LACTOBACILLUS ACIDOPHILUS TAB PO SCH ×3 (09:53→18:28)
[2017-04-23] MEDS: FIDAXOMICIN 200 MG TAB PO SCH ×2 (09:53→22:15)
[2017-04-23] MEDS: CITALOPRAM HYDROBROMIDE 20 MG TAB PO SCH (09:53)
[2017-04-23] MEDS: SODIUM CHLORIDE 0.9% FLUSH 10 ML FLUSH IV FLUSH SCH ×2 (09:54→21:00)
[2017-04-23] MEDS: VANCOMYCIN 500 MG VIAL (FOR ORAL USE ONLY) PO SCH ×4 (09:54→22:17)
[2017-04-23] MEDS: FLUTICASONE PROPIONATE 50 MCG/ACT 16 GM NASAL SPRAY EACH NARE SCH ×2 (09:58→22:13)
[2017-04-23 12:00] VITALS: BP 173/77; PULSE 71; RESP 20; TEMP 98.2; O2SAT 97
--- NOTE | 2017-04-23 15:22 | HHI.GIFU ---
Subjective Remarks Pt resting in bed, watching TV. SAys he still has diarrhea and was actually feeling pretty good yesterday but today the diarrhea is bad again. No pain, n/ v. (Deepti Perez) Objective Vitals I&O Vital Signs Date Time Temp Pulse Resp B/P Pulse Ox O2 Delivery O2 Flow Rate FiO2 04/23/17 12:00 98.2 71 20 173/77 97 04/23/17 08:00 97.9 74 20 163/72 96 04/23/17 07:15 Room Air 04/23/17 05:07 97.5 66 18 157/70 97 04/22/17 23:58 98.5 65 18 150/71 96 04/22/17 20:22 98.0 89 18 127/90 97 04/22/17 20:00 Room Air 04/22/17 16:00 98.4 84 18 177/81 98 I/O 04/22/17 04/22/17 04/22/17 04/23/17 04/23/17 04/23/17 07:00 15:00 23:00 07:00 15:00 23:00 Intake Total 949 ml 1011 ml 1082 ml 1137 ml 1000 ml Output Total 1600 ml 100 ml 500 ml Balance -651 ml 1011 ml 982 ml 637 ml 1000 ml Intake Oral 0 ml 1082 ml 0 ml IV Total 949 ml 1011 ml 1137 ml 1000 ml Output Urine Total 1600 ml 100 ml 500 ml # Bowel Movements 3 1 2 Laboratory Laboratory Tests Test 04/23/17 07:14 White Blood Count 14.6 Red Blood Count 3.94 Hemoglobin 10.0 Hematocrit 31.3 Mean Corpuscular Volume 79.6 Mean Corpuscular Hemoglobin 25.4 Mean Corpuscular Hemoglobin 31.8 Concent Red Cell Distribution Width 18.5 Platelet Count 319 Mean Platelet Volume 7.6 Sodium Level 141 Potassium Level 3.4 Chloride Level 106 Carbon Dioxide Level 28.6 Anion Gap 6 Blood Urea Nitrogen 13 Creatinine 0.66 Estimat Glomerular Filtration 119 Rate Random Glucose 150 Calcium Level 7.8 Imaging Last Impressions Abdomen/Pelvis CT 04/22/17 0000 Signed Impressions: Service Date/Time: Saturday, April 22, 2017 19:17 - CONCLUSION: 1. Nonspecific bowel gas pattern which may represent an ileus or gastroenteritis. 2. Mild ascitic fluid in the abdomen and pelvis. 3. Small pleural effusions again noted left greater than right. 4. Small amount of pericardial fluid now noted. 5. Stable left adrenal adenoma.. 6. Small bilateral nonobstructing renal calculi. 7. New high density apparent metallic structure along the posterior stomach of unclear significance. This may or present an interval bullet fragment or other structure. 8. There is anasarca. Дмитрий Hoyos MD Chest X-Ray 04/19/17 0000 Signed Impressions: Service Date/Time: Wednesday, April 19, 2017 10:55 - CONCLUSION: 1. Mild cardiomegaly. No acute findings. Richard Tripp MD Physical Exam HEENT: EOMI; normocephalic; atraumatic; no jaundice. CHEST: CTA CARDIAC: RRR ABDOMEN: Soft, mildly distended, tympanitic, nontender; no hepatosplenomegaly; bowel sounds are present in all four quadrants. EXTREMITIES: No clubbing, cyanosis, or edema. SKIN: Normal; no rash; no jaundice. RETORT CONDENSER ATTENDANT: No focal deficits; alert and oriented times three. (Deepti Perez) Assessment and Plan Plan ASSESSMENT - diarrhea - onset 2w ago. pos c diff. Has been on an off antibiotics, treated for PNA in February. Hx e coli bacteremia in Dec. CT 04-22-17 --> 1. Nonspecific bowel gas pattern which may represent an ileus or gastroenteritis. 2. Mild ascitic fluid in the abdomen and pelvis. - reflux - c/o acid reflux since being in hospital. Discussed possibility of EGD /colonoscopy with pt and his . - mild dementia - per , EMR PLAN - consider EGD/colonoscopy vs waiting - continue abx - if becomes distended or painful, consider KUB - supportive care - consider probiotics This pt seen by myself and Dr Melissa and this note is written on his behalf. ( Deepti Perez) Physician Comments Seen and examined, plan as above, further recommendations to follow. (Maci Melissa MD) Deepti Perez Apr 23, 2017 15:22 Maci Melissa MD Apr 23, 2017 23:50
--- NOTE | 2017-04-23 15:27 | HHI.FPPN ---
Subjective Remarks Patient seen and examined this morning. No acute events overnight with vital signs stable. Patient states that yesterday he did very well going many hours without having a bowel movement. He also states that his bowel movements yesterday were becoming more solid, however today he has had multiple bowel movements only hours apart. He endorses abdominal cramping with the bowel movements but otherwise denies any fevers, chills, shortness of breath, chest pain, or calf tenderness. (Ben Vaz MD R1) Objective Vitals Vital Signs Date Time Temp Pulse Resp B/P Pulse Ox O2 Delivery O2 Flow Rate FiO2 04/23/17 12:00 98.2 71 20 173/77 97 04/23/17 08:00 97.9 74 20 163/72 96 04/23/17 07:15 Room Air 04/23/17 05:07 97.5 66 18 157/70 97 04/22/17 23:58 98.5 65 18 150/71 96 04/22/17 20:22 98.0 89 18 127/90 97 04/22/17 20:00 Room Air 04/22/17 16:00 98.4 84 18 177/81 98 I/O 04/22/17 04/22/17 04/22/17 04/23/17 04/23/17 04/23/17 07:00 15:00 23:00 07:00 15:00 23:00 Intake Total 949 ml 1011 ml 1082 ml 1137 ml 1000 ml Output Total 1600 ml 100 ml 500 ml Balance -651 ml 1011 ml 982 ml 637 ml 1000 ml Intake Oral 0 ml 1082 ml 0 ml IV Total 949 ml 1011 ml 1137 ml 1000 ml Output Urine Total 1600 ml 100 ml 500 ml # Bowel Movements 3 1 2 (Ben Vaz MD R1) Result Diagram: 04/23/1771304/23/17713 Objective Remarks GENERAL: Sitting up in bed, no distress SKIN: No rashes, ecchymoses or lesions. HEENT: Atraumatic. Normocephalic. Oropharynx clear without any erythema or signs of thrush s/p nystatin treatment. EYES: Extraocular motions intact. No scleral icterus. No injection or drainage. CARDIOVASCULAR: Regular rate and rhythm without murmurs, gallops, or rubs. RESPIRATORY: Mild wheezing diffusely. No distress. GASTROINTESTINAL: Abdomen soft with mild distention. Mild tenderness to palpation in all 4 quadrants. No guarding or rebound tenderness. Normoactive bowel sounds. MUSCULOSKELETAL: Extremities without cyanosis or edema. No calf tenderness. NEUROLOGICAL:AAOx3. Motor and sensory grossly within normal limits. Normal speech. (Ben Vaz MD R1) A/P Assessment and Plan 71yo man with h/o C. 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 Discharge Planning Pending evaluation and recommendations by ID and GI with clinical improvement. (Ben Vaz MD R1) Attending Attestation Patient seen and examined. Case reviewed and discussed with the resident team. Agree with plan of care as discussed with me and documented in the resident note. (Yoana Rodriguez MD) Problem List: (1) C. difficile diarrhea Status: Acute Plan: C.diff colitis after levaquin use for a COPD exacerbation. Allergic to vancomycin and Flagyl according to records. Infectious disease has been consulted for assistance with antibiotic management - PO Vancomycin 125mg q 6hrs - Patient monitored closely for allergy --> No report of adverse reactions - May benefit from Rifaximin, defer to infectious disease - Added mesalamine for 7 days - Probiotics Full liquid diet, advance as tolerated Monitor intake and output, record bowel movements - Monitor and replace electrolytes. PT for inability to walk, generalized weakness likely in the context of dehydration Zofran 4 mg IV push every 6 hours when necessary for nausea or vomiting (2) GI bleed Status: Acute Plan: GI bleeding, likely from c-diff inflammation. Hemoglobin stable. However , he does have a history of upper GI bleed with gastritis, required transfusion in the past. GI consulted, appreciate recommendations - Abdomen and pelvis CT: Nonspecific bowel gas pattern which may represent ileus/gastroenteritis. Mild ascitic fluid. Small pleural effusions bilaterally. Small amount of pericardial fluid. Stable left adrenal adenoma. Small bilateral nonobstructing renal calculi. New high-density. Metallic structure along the posterior stomach of unclear significance. This may represent a interval bullet fragment or other structure. There is anasarca. (3) Thrush, oral Status: Acute Plan: Likely from antibiotics - Started Nystatin swish (4) Contact dermatitis Status: Acute Plan: Likely from diarrhea, dermatitis around anal area - Keep area dry and clean as much as possible - Barrier cream (5) COPD (chronic obstructive pulmonary disease) Status: Chronic Plan: History of COPD presents after incomplete treatment of COPD exacerbation. Mild cardiomegaly on x-ray. Albuterol neb 2.5 mg neb every 4 hours when necessary for shortness of breath or wheezing DuoNeb 1 neb every 4 hours when necessary for shortness of breath or wheezing Continue home medication of Symbicort 2 puffs inhaled twice a day Prednisone 50mg daily started 04/20.. (6) Anemia Status: Acute Plan: Patient presented with anemia of 9.8. Hemoccult positive. Likely due to current c.diff infection; however, patient also has recent hx of recent GI bleed w/ EGD showing gastritis in December requiring 5 units of PRBCs. Hemoglobin currently stable. - Monitor hemoglobin/hematocrit. - May benefit from colonoscopy/EGD when stable (7) HTN (hypertension) Status: Acute Plan: Continue diltiazem/Cardizem 240 mg BID Restart home lisinopril 40 mg daily Restart spironolactone 25 mg daily Clonidine prn BP >180/100 (8) FEN/PPX Status: Acute Plan: Fluids: Normal saline 125 mls/hr Electrolytes: Monitor and replace as necessary Nutrition: Full liquids, advance as tolerated DVT prophylaxis: Bilateral SCDs, defer anticoagulation due to + Hemoccult GI prophylaxis: Protonix 40mg daily Chronic medical problems: Continue home medications as below: [place] 325-10 mg 1 tab by mouth every 4 hours when necessary for pain 6-10 Aspirin 81 mg chew by mouth daily for cardiovascular disease Celexa 60 mg by mouth daily Flexeril 10 mg by mouth 3 times a day donepezil/Aricept 10 mg by mouth daily at bedtime Flonase 2 spray each nares twice a day Gabapentin 100 mg by mouth 3 times a day Latanoprost eyedrops 1 drop each eye daily at bedtime Ambien 5 million by mouth daily at bedtime when necessary for insomnia (Ben Vaz MD R1) Ben Vaz MD R1 Apr 23, 2017 15:27 Yoana Rodriguez MD Apr 23, 2017 17:54
[2017-04-23] MEDS ORDERED: POTASSIUM CHLORIDE 10 MEQ CONTROLLED RELEASE TAB PO ONE (15:30)
[2017-04-23 16:00] VITALS: BP 162/74; PULSE 70; RESP 20; TEMP 97; O2SAT 97
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
[2017-04-23 20:43] VITALS: BP_SYST 164; BP_SYST 176; BP_DIAS 68; BP_DIAS 76; PULSE 76; RESP 18; TEMP 98; O2SAT 97
[2017-04-23 21:35] LABS: MAGNESIUM 1.5 MG/DL (1.5-2.5)
[2017-04-23] MEDS: LATANOPROST 0.005% OPHT SOLN 2.5 ML BTL EACH EYE SCH (22:14)
[2017-04-23] MEDS: DONEPEZIL HCL 5 MG TAB PO SCH (22:15)
[2017-04-23] MEDS: LISINOPRIL 20 MG TAB PO SCH (22:16)
[2017-04-23] MEDS: ZOLPIDEM TARTRATE 5 MG TAB PO PRN (22:16)
[2017-04-23] MEDS: ATORVASTATIN 40 MG TAB PO SCH (22:17)
[2017-04-23 23:45] VITALS: BP_SYST 162; BP_SYST 171; BP_DIAS 78; BP_DIAS 79; PULSE 74; RESP 18; TEMP 98.9; O2SAT 96
[2017-04-24] MEDS: SODIUM CHLOR 0.9% 1000 ML INJ 1,000 ML IV SCH ×3 (05:14→20:24)
[2017-04-24] MEDS: MESALAMINE HD 800 MG DELAYED RELEASE TAB PO SCH ×3 (05:14→20:39)
[2017-04-24 05:15] VITALS: BP_SYST 168; BP_SYST 170; BP_DIAS 68; BP_DIAS 77; PULSE 74; RESP 18; TEMP 98.1; O2SAT 97
[2017-04-24 08:00] VITALS: BP 145/60; PULSE 88; RESP 18; TEMP 98; O2SAT 94
[2017-04-24] MEDS: PETROLATUM 49%/ZINC OXIDE 15% 4 OUNCE TUBE TOPICAL SCH (09:00)
[2017-04-24] MEDS: BUDESONIDE-FORMOTEROL 160/4.5 MCG INHALER INH SCH ×2 (09:00→21:00)
[2017-04-24] MEDS: CITALOPRAM HYDROBROMIDE 20 MG TAB PO SCH (09:00)
[2017-04-24] MEDS: SODIUM CHLORIDE 0.9% FLUSH 10 ML FLUSH IV FLUSH SCH ×2 (09:00→21:00)
[2017-04-24] MEDS: FLUTICASONE PROPIONATE 50 MCG/ACT 16 GM NASAL SPRAY EACH NARE SCH ×2 (09:00→20:26)
[2017-04-24] MEDS: NYSTATIN SUSP 500,000 U/5 ML CUP SWISH-SWAL SCH ×4 (09:05→20:24)
[2017-04-24] MEDS: CYCLOBENZAPRINE HCL 10 MG TAB PO SCH ×3 (09:05→18:12)
[2017-04-24] MEDS: LACTOBACILLUS ACIDOPHILUS TAB PO SCH ×3 (09:05→18:12)
[2017-04-24] MEDS: predniSONE 50 MG TAB PO SCH (09:05)
[2017-04-24] MEDS: DILTIAZEM-CD 240 MG CAP ER PO SCH ×2 (09:05→20:24)
[2017-04-24] MEDS: FIDAXOMICIN 200 MG TAB PO SCH ×2 (09:05→20:25)
[2017-04-24] MEDS: PANTOPRAZOLE SOD 40 MG DELAYED RELEASE TAB PO SCH (09:05)
[2017-04-24] MEDS: VANCOMYCIN 500 MG VIAL (FOR ORAL USE ONLY) PO SCH ×3 (09:05→20:25)
[2017-04-24] MEDS: GABAPENTIN 400 MG CAP PO SCH ×3 (09:05→18:12)
[2017-04-24] MEDS: SPIRONOLACTONE 25 MG TAB PO SCH (09:05)
[2017-04-24 09:25] LABS: HEMATOCRIT 32.5 % (39.0-51.0); MEAN CELL VOLUME 79.2 FL (80.0-100.0); MEAN CORPUSCULAR HGB CONC 32.9 % (32.0-36.0); PLATELET COUNT 394 TH/MM3 (150-450); RED BLOOD COUNT 4.11 MIL/MM3 (4.50-5.90); RED CELL DISTRIBUTION WIDTH 18.4 % (11.6-17.2); REVIEW FLAG FINAL; WHITE BLOOD COUNT 11.5 TH/MM3 (4.0-11.0)
[2017-04-24 10:10] LABS: BICARBONATE 24.2 MEQ/L (21.0-32.0); POTASSIUM 3.7 MEQ/L (3.5-5.1)
[2017-04-24 10:35] LABS: CALCIUM-PROTEIN CORRECTED 8.1 MG/DL (8.5-10.1)
[2017-04-24 12:00] VITALS: BP 140/72; PULSE 78; RESP 20; TEMP 98.3; O2SAT 94
--- NOTE | 2017-04-24 13:45 | HHI.GIFU ---
Subjective Remarks Pt resting in bed, visiting with . Says he feels fine. Still with diarrhea. (Deepti Perez) Objective Vitals I&O Vital Signs Date Time Temp Pulse Resp B/P Pulse Ox O2 Delivery O2 Flow Rate FiO2 04/24/17 12:00 98.3 78 20 140/72 94 04/24/17 08:00 98.0 88 18 145/60 94 04/24/17 07:15 Room Air 04/24/17 05:15 98.1 74 18 170/77 97 168/68 04/23/17 23:45 98.9 74 18 171/79 96 162/78 04/23/17 20:43 98.0 76 18 176/76 97 164/68 04/23/17 20:00 Room Air 04/23/17 16:00 97.0 70 20 162/74 97 I/O 04/23/17 04/23/17 04/23/17 04/24/17 04/24/17 04/24/17 07:00 15:00 23:00 07:00 15:00 23:00 Intake Total 1137 ml 1360 ml 1536 ml 1082 ml Output Total 500 ml 700 ml 200 ml 400 ml Balance 637 ml 660 ml 1336 ml 682 ml Intake Oral 0 ml 360 ml 570 ml 240 ml IV Total 1137 ml 1000 ml 966 ml 842 ml Output Urine Total 500 ml 700 ml 200 ml 400 ml # Bowel Movements 2 5 2 3 Laboratory Laboratory Tests Test 04/23/17 04/24/17 20:18 08:13 Potassium Level 4.0 3.7 Magnesium Level 1.5 White Blood Count 11.5 Red Blood Count 4.11 Hemoglobin 10.7 Hematocrit 32.5 Mean Corpuscular Volume 79.2 Mean Corpuscular Hemoglobin 26.0 Mean Corpuscular Hemoglobin 32.9 Concent Red Cell Distribution Width 18.4 Platelet Count 394 Mean Platelet Volume 7.6 Sodium Level 139 Chloride Level 106 Carbon Dioxide Level 24.2 Anion Gap 9 Blood Urea Nitrogen 12 Creatinine 0.69 Estimat Glomerular Filtration 113 Rate Random Glucose 177 Calcium Level 7.3 Protein Corrected Calcium 8.1 Total Protein 5.7 Physical Exam HEENT: EOMI; normocephalic; atraumatic; no jaundice. CHEST: CTA CARDIAC: RRR ABDOMEN: Soft, mildly distended, tympanitic, nontender; no hepatosplenomegaly; bowel sounds are present in all four quadrants. EXTREMITIES: No clubbing, cyanosis, or edema. SKIN: Normal; no rash; no jaundice. 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 (Deepti Perez) Assessment and Plan Plan ASSESSMENT - diarrhea - onset 2w ago. pos c diff. Has been on an off antibiotics, treated for PNA in February. Hx e coli bacteremia in Dec. CT 04-22-17 --> 1. Nonspecific bowel gas pattern which may represent an ileus or gastroenteritis. 2. Mild ascitic fluid in the abdomen and pelvis.asacol. - reflux - c/o acid reflux since being in hospital. Discussed possibility of EGD /colonoscopy with pt and his . - leukocytosis - trending down. vancomycin, dificid, - mild dementia - per , EMR PLAN - dignishield/rectal tube - consider EGD/colonoscopy outpatient - continue abx - if becomes distended or painful, consider KUB - supportive care - consider probiotics This pt seen by myself and Dr Melissa and this note is written on his behalf. ( Deepti Perez) Physician Comments Seen and examined, plan as above, further recommendations to follow. (Maci Melissa MD) Deepti Perez Apr 24, 2017 13:45 Maci Melissa MD Apr 24, 2017 17:07
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
[2017-04-24] MEDS: CALCIUM CARBONATE 500 MG CHEWABLE TAB CHEW SCH ×2 (14:45→20:24)
[2017-04-24 16:00] VITALS: BP 150/78; PULSE 65; RESP 20; TEMP 98; O2SAT 94
[2017-04-24 20:00] VITALS: BP 144/76
[2017-04-24 20:22] VITALS: PULSE 70; RESP 18; TEMP 98; O2SAT 97
[2017-04-24] MEDS: LISINOPRIL 20 MG TAB PO SCH (20:24)
[2017-04-24] MEDS: DONEPEZIL HCL 5 MG TAB PO SCH (20:25)
[2017-04-24] MEDS: ATORVASTATIN 40 MG TAB PO SCH (20:25)
[2017-04-24] MEDS: LATANOPROST 0.005% OPHT SOLN 2.5 ML BTL EACH EYE SCH (20:26)
[2017-04-25] VITALS: BP 140/82; PULSE 70; RESP 18; TEMP 98; O2SAT 97
[2017-04-25] MEDS: ZOLPIDEM TARTRATE 5 MG TAB PO PRN ×2 (00:12→22:46)
[2017-04-25] MEDS: SODIUM CHLOR 0.9% 1000 ML INJ 1,000 ML IV SCH ×3 (02:15→18:38)
[2017-04-25 04:13] VITALS: BP 144/72; PULSE 68; RESP 16; TEMP 98; O2SAT 96
[2017-04-25] MEDS: MESALAMINE HD 800 MG DELAYED RELEASE TAB PO SCH ×3 (05:09→22:46)
[2017-04-25 08:00] VITALS: BP 145/70; PULSE 79; RESP 18; TEMP 97.5; O2SAT 97
[2017-04-25] MEDS: FLUTICASONE PROPIONATE 50 MCG/ACT 16 GM NASAL SPRAY EACH NARE SCH ×2 (09:00→20:27)
[2017-04-25] MEDS: BUDESONIDE-FORMOTEROL 160/4.5 MCG INHALER INH SCH ×2 (09:00→20:29)
[2017-04-25] MEDS: SODIUM CHLORIDE 0.9% FLUSH 10 ML FLUSH IV FLUSH SCH ×2 (09:00→20:31)
[2017-04-25] MEDS: NYSTATIN SUSP 500,000 U/5 ML CUP SWISH-SWAL SCH ×4 (09:00→20:40)
[2017-04-25 09:43] LABS: POTASSIUM 3.5 MEQ/L (3.5-5.1)
[2017-04-25] MEDS: CALCIUM CARBONATE 500 MG CHEWABLE TAB CHEW SCH ×2 (10:06→20:29)
[2017-04-25] MEDS: SPIRONOLACTONE 25 MG TAB PO SCH (10:06)
[2017-04-25] MEDS: DILTIAZEM-CD 240 MG CAP ER PO SCH ×2 (10:06→20:30)
[2017-04-25] MEDS: CITALOPRAM HYDROBROMIDE 20 MG TAB PO SCH (10:07)
[2017-04-25] MEDS: FIDAXOMICIN 200 MG TAB PO SCH ×2 (10:07→20:30)
[2017-04-25] MEDS: CYCLOBENZAPRINE HCL 10 MG TAB PO SCH ×3 (10:07→18:37)
[2017-04-25] MEDS: GABAPENTIN 400 MG CAP PO SCH ×3 (10:07→18:37)
[2017-04-25] MEDS: PANTOPRAZOLE SOD 40 MG DELAYED RELEASE TAB PO SCH (10:07)
[2017-04-25] MEDS: LACTOBACILLUS ACIDOPHILUS TAB PO SCH ×3 (10:07→18:37)
[2017-04-25] MEDS: PETROLATUM 49%/ZINC OXIDE 15% 4 OUNCE TUBE TOPICAL SCH (10:08)
[2017-04-25] MEDS: VANCOMYCIN 500 MG VIAL (FOR ORAL USE ONLY) PO SCH ×4 (10:08→20:29)
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
--- NOTE | 2017-04-25 11:03 | PQ ---
Physician Query Response Document PATIENT: MIKAL MARIA : 1945 ADMIT DATE: 04/17/2017 4:39 PM DISCH DATE: RESPONDING PROVIDER #: [place] QUERY TEXT: Sepsis Query Based on your medical judgement, can you further clarify the folowiin. Sepsis (SIRS due to an infection) 2. Sepsis with Organ Dysfunction 3. A localized Infection only 4. Another condition - please specify 5. Unable to determine - please explain. Depending on your selection above, please indicate one of the below if applicable: - Sepsis was present on Admission - Sepsis developed after admission The patient's Clinical Indicators include: findings on admission C DIFF COLITIS IMMUNE COMPROMISED WBC 22.4 BANDS% 19 BILLY Leucocytosis high grade, likely sepsis per ID Apr 18, 2017 13:54 Query created by: Kendra Luu on 04/24/2017 11:05 AM RESPONSE TEXT: This patient has recurrent c. Difficile colitis, is immunocompromised due to chronic steroids. Not cu rrently septic. Electronically signed by: Yoana Rodriguez MD 04/25/2017 10:59 AM
[2017-04-25 11:23] LABS: HEMATOCRIT 29.1 % (39.0-51.0); MEAN CELL VOLUME 80.7 FL (80.0-100.0); MEAN CORPUSCULAR HEMOGLOBIN 25.2 PG (27.0-34.0); MEAN CORPUSCULAR HGB CONC 31.2 % (32.0-36.0); PLATELET COUNT 378 TH/MM3 (150-450); RED BLOOD COUNT 3.61 MIL/MM3 (4.50-5.90); RED CELL DISTRIBUTION WIDTH 18.8 % (11.6-17.2); REVIEW FLAG FINAL; WHITE BLOOD COUNT 12.9 TH/MM3 (4.0-11.0)
[2017-04-25 12:00] VITALS: BP 120/70; PULSE 105; RESP 18; TEMP 98; O2SAT 98
[2017-04-25] MEDS: PSYLLIUM FIBER SF/GF 6 GM POWD PKT PO SCH ×2 (14:48→20:31)
[2017-04-25 16:00] VITALS: BP 140/60; PULSE 62; RESP 18; TEMP 98.2; O2SAT 97
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
[2017-04-25 20:00] VITALS: BP 138/68; PULSE 63; RESP 20; TEMP 98.3; O2SAT 97
[2017-04-25] MEDS: LATANOPROST 0.005% OPHT SOLN 2.5 ML BTL EACH EYE SCH (20:29)
[2017-04-25] MEDS: LISINOPRIL 20 MG TAB PO SCH (20:30)
[2017-04-25] MEDS: DONEPEZIL HCL 5 MG TAB PO SCH (20:30)
[2017-04-25] MEDS: ATORVASTATIN 40 MG TAB PO SCH (20:30)
[2017-04-26] VITALS: BP 142/72; PULSE 56; RESP 20; TEMP 98.2; O2SAT 97
[2017-04-26] MEDS: SODIUM CHLOR 0.9% 1000 ML INJ 1,000 ML IV SCH ×3 (02:10→17:52)
[2017-04-26 04:00] VITALS: BP 168/78; PULSE 61; RESP 20; TEMP 97.4; O2SAT 96
[2017-04-26] MEDS: MESALAMINE HD 800 MG DELAYED RELEASE TAB PO SCH ×3 (06:07→20:40)
[2017-04-26 07:07] LABS: MEAN CELL VOLUME 79.3 FL (80.0-100.0); MEAN CORPUSCULAR HEMOGLOBIN 25.5 PG (27.0-34.0); MEAN CORPUSCULAR HGB CONC 32.2 % (32.0-36.0); PLATELET COUNT 373 TH/MM3 (150-450); RED BLOOD COUNT 3.29 MIL/MM3 (4.50-5.90); RED CELL DISTRIBUTION WIDTH 18.2 % (11.6-17.2); REVIEW FLAG FINAL
[2017-04-26 07:32] LABS: BICARBONATE 24.3 MEQ/L (21.0-32.0); POTASSIUM 3.2 MEQ/L (3.5-5.1)
[2017-04-26 08:00] VITALS: BP 145/65; PULSE 74; RESP 16; TEMP 98.6
[2017-04-26] MEDS ORDERED: POTASSIUM CHLORIDE 10 MEQ CONTROLLED RELEASE TAB PO ONE (08:00)
[2017-04-26] MEDS ORDERED: SENS113T TOPICAL (08:32)
[2017-04-26] MEDS ORDERED: KONS100P3 PO (08:32)
[2017-04-26] MEDS ORDERED: LACT PO (08:32)
--- NOTE | 2017-04-26 08:33 | HHI.DCPOC ---
Discharge Care Plan Diagnosis: (1) C. difficile diarrhea Goals to Promote Your Health * To prevent worsening of your condition and complications * To maintain your health at the optimal level Directions to Meet Your Goals Take your medications as prescribed Follow your dietary instruction Follow activity as directed Keep your appointments as scheduled Take your immunizations and boosters as scheduled If your symptoms worsen call your PCP, if no PCP go to Urgent Care Center or Emergency Room Smoking is Dangerous to Your Health. Avoid second hand smoke Call the 24-hour hour crisis hotline for domestic abuse at Ben Vaz MD R1 Apr 26, 2017 08:33
--- NOTE | 2017-04-26 08:38 | HHI.FF ---
Face to Face Verification Diagnosis: (1) C. difficile diarrhea (2) Impaired mobility and activities of daily living (3) COPD (chronic obstructive pulmonary disease) Physical Therapy Order: Evaluate and Treat, Improve ambulation, Strength and gait training Speech Therapy Order: To Improve: Speech and communication skills, Cognitive skills, Swallowing I have seen patient Jose GarciaSr on 04/26/17. My clinical findings support the need for the requested home health care services because: Ltd mobility - disease progression Patient has SOB Deconditioned w/ increased weakness Limited ability to care for self Impaired cognition/judgement High risk of falls I certify that my clinical findings support that this patient is homebound because: Impaired cognitive ability/safety Hx COPD- exertion dyspnea/weakness Unsteady gait/balance Ben Vaz MD R1 Apr 26, 2017 08:38
[2017-04-26] MEDS: BUDESONIDE-FORMOTEROL 160/4.5 MCG INHALER INH SCH ×2 (08:46→20:41)
[2017-04-26] MEDS: SODIUM CHLORIDE 0.9% FLUSH 10 ML FLUSH IV FLUSH SCH ×2 (08:46→20:42)
[2017-04-26] MEDS: CALCIUM CARBONATE 500 MG CHEWABLE TAB CHEW SCH ×2 (08:46→20:41)
[2017-04-26] MEDS: VANCOMYCIN 500 MG VIAL (FOR ORAL USE ONLY) PO SCH ×4 (08:47→20:40)
[2017-04-26] MEDS: FLUTICASONE PROPIONATE 50 MCG/ACT 16 GM NASAL SPRAY EACH NARE SCH ×2 (08:47→20:40)
[2017-04-26] MEDS: FIDAXOMICIN 200 MG TAB PO SCH ×2 (08:50→20:41)
[2017-04-26] MEDS: LACTOBACILLUS ACIDOPHILUS TAB PO SCH ×3 (08:50→17:36)
[2017-04-26] MEDS: SPIRONOLACTONE 25 MG TAB PO SCH (08:50)
[2017-04-26] MEDS: DILTIAZEM-CD 240 MG CAP ER PO SCH ×2 (08:50→20:41)
[2017-04-26] MEDS: CITALOPRAM HYDROBROMIDE 20 MG TAB PO SCH (08:50)
[2017-04-26] MEDS: CYCLOBENZAPRINE HCL 10 MG TAB PO SCH ×3 (08:50→17:37)
[2017-04-26] MEDS: PANTOPRAZOLE SOD 40 MG DELAYED RELEASE TAB PO SCH (08:50)
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
[2017-04-26] MEDS: GABAPENTIN 400 MG CAP PO SCH ×3 (08:51→17:36)
[2017-04-26] MEDS: PSYLLIUM FIBER SF/GF 6 GM POWD PKT PO SCH ×2 (08:51→20:53)
[2017-04-26] MEDS: PETROLATUM 49%/ZINC OXIDE 15% 4 OUNCE TUBE TOPICAL SCH (08:51)
[2017-04-26] MEDS: NYSTATIN SUSP 500,000 U/5 ML CUP SWISH-SWAL SCH ×4 (08:51→20:42)
[2017-04-26 12:00] VITALS: BP 160/65; PULSE 86; RESP 18; TEMP 99.1; O2SAT 98
[2017-04-26 16:00] VITALS: BP 145/70; PULSE 78; RESP 18; TEMP 98; O2SAT 97
[2017-04-26] MEDS: LATANOPROST 0.005% OPHT SOLN 2.5 ML BTL EACH EYE SCH (20:40)
[2017-04-26] MEDS: LISINOPRIL 20 MG TAB PO SCH (20:41)
[2017-04-26] MEDS: ATORVASTATIN 40 MG TAB PO SCH (20:41)
[2017-04-26] MEDS: DONEPEZIL HCL 5 MG TAB PO SCH (20:53)
[2017-04-26 20:55] VITALS: BP 162/74; PULSE 89; RESP 21; TEMP 98.5; O2SAT 98
[2017-04-26] MEDS: ZOLPIDEM TARTRATE 5 MG TAB PO PRN (22:27)
[2017-04-27 01:06] VITALS: BP 160/80; PULSE 84; RESP 20; TEMP 100; O2SAT 94
[2017-04-27] MEDS: SODIUM CHLOR 0.9% 1000 ML INJ 1,000 ML IV SCH ×2 (01:36→11:02)
[2017-04-27 04:16] VITALS: BP 180/78; PULSE 87; RESP 20; TEMP 99.6; O2SAT 95
[2017-04-27] MEDS: MESALAMINE HD 800 MG DELAYED RELEASE TAB PO SCH ×3 (05:32→21:07)
[2017-04-27 08:00] VITALS: BP 184/86; PULSE 66; RESP 20; TEMP 100.3; O2SAT 96
[2017-04-27 08:03] LABS: HEMATOCRIT 24.5 % (39.0-51.0); MEAN CORPUSCULAR HEMOGLOBIN 26.6 PG (27.0-34.0); MEAN CORPUSCULAR HGB CONC 33.7 % (32.0-36.0); PLATELET COUNT 368 TH/MM3 (150-450); RED CELL DISTRIBUTION WIDTH 18.7 % (11.6-17.2); REVIEW FLAG FINAL
[2017-04-27 08:24] LABS: BICARBONATE 22.8 MEQ/L (21.0-32.0); POTASSIUM 3.1 MEQ/L (3.5-5.1)
[2017-04-27 08:37] LABS: CALCIUM-PROTEIN CORRECTED 8.2 MG/DL (8.5-10.1)
[2017-04-27] MEDS: CALCIUM CARBONATE 500 MG CHEWABLE TAB CHEW SCH ×2 (08:59→21:00)
[2017-04-27] MEDS: NYSTATIN SUSP 500,000 U/5 ML CUP SWISH-SWAL SCH ×4 (08:59→21:00)
[2017-04-27] MEDS: BUDESONIDE-FORMOTEROL 160/4.5 MCG INHALER INH SCH ×2 (08:59→21:00)
[2017-04-27] MEDS: FLUTICASONE PROPIONATE 50 MCG/ACT 16 GM NASAL SPRAY EACH NARE SCH ×2 (09:01→21:08)
[2017-04-27] MEDS: CYCLOBENZAPRINE HCL 10 MG TAB PO SCH ×3 (09:01→17:13)
[2017-04-27] MEDS: LACTOBACILLUS ACIDOPHILUS TAB PO SCH ×3 (09:01→17:13)
[2017-04-27] MEDS: DILTIAZEM-CD 240 MG CAP ER PO SCH ×2 (09:01→21:06)
[2017-04-27] MEDS: GABAPENTIN 400 MG CAP PO SCH ×3 (09:01→17:13)
[2017-04-27] MEDS: FIDAXOMICIN 200 MG TAB PO SCH ×2 (09:01→21:06)
[2017-04-27] MEDS: PANTOPRAZOLE SOD 40 MG DELAYED RELEASE TAB PO SCH (09:01)
[2017-04-27] MEDS: SODIUM CHLORIDE 0.9% FLUSH 10 ML FLUSH IV FLUSH SCH ×2 (09:01→21:00)
[2017-04-27] MEDS: SPIRONOLACTONE 25 MG TAB PO SCH (09:01)
[2017-04-27] MEDS: VANCOMYCIN 500 MG VIAL (FOR ORAL USE ONLY) PO SCH ×4 (09:01→21:07)
[2017-04-27] MEDS: CITALOPRAM HYDROBROMIDE 20 MG TAB PO SCH (09:01)
[2017-04-27] MEDS: PETROLATUM 49%/ZINC OXIDE 15% 4 OUNCE TUBE TOPICAL SCH (09:02)
[2017-04-27] MEDS: PSYLLIUM FIBER SF/GF 6 GM POWD PKT PO SCH ×2 (09:02→21:06)
[2017-04-27 12:04] VITALS: BP 158/70; PULSE 86; RESP 20; TEMP 98.4; O2SAT 94
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
[2017-04-27] MEDS ORDERED: POTASSIUM CHLORIDE 10 MEQ CONTROLLED RELEASE TAB PO ONE (15:30)
--- NOTE | 2017-04-27 15:30 | HHI.FPPN ---
Subjective Remarks Patient seen and examined this morning. No acute events overnight with vital signs stable. Patient reports that he did well overnight going greater than 5 hours without having a bowel movement, however he reports that he has had 2 loose bowel movements "[id number]" early this morning. Nursing staff noted patient continues to pass blood with these bowel movements which was seen on examination today. Otherwise he has no complaints and denies any fevers, chills , shortness breath, chest pain, abdominal pain, N/V, or calf tenderness. Medical team has reached out to the patient's to discuss placement for rehabilitation, however she has been unable to be reached. (Ben Vaz MD R1) Objective Vitals Vital Signs Date Time Temp Pulse Resp B/P Pulse Ox O2 Delivery O2 Flow Rate FiO2 04/27/17 12:04 98.4 86 20 158/70 94 04/27/17 08:45 Room Air 04/27/17 08:00 100.3 66 20 184/86 96 184/86 04/27/17 04:16 99.6 87 20 180/78 95 04/27/17 04:00 Room Air 04/27/17 01:06 100.0 84 20 160/80 94 04/27/17 00:00 Room Air 04/26/17 20:55 98.5 89 21 162/74 98 04/26/17 20:00 Room Air 04/26/17 16:00 98.0 78 18 145/70 97 I/O 04/26/17 04/26/17 04/26/17 04/27/17 04/27/17 04/27/17 07:00 15:00 23:00 07:00 15:00 23:00 Intake Total 1247 ml 1516 ml 1041 ml 1016 ml 1069 ml Output Total 500 ml 850 ml 1 ml Balance 747 ml 666 ml 1041 ml 1015 ml 1069 ml Intake Oral 330 ml 700 ml 240 ml IV Total 917 ml 816 ml 801 ml 1016 ml 1069 ml Output Urine Total 500 ml 850 ml Stool Total 1 ml # Voids 1 1 # Bowel Movements 1 2 1 (Ben Vaz MD R1) Result Diagram: 04/27/17 0700 04/27/17 0700 Objective Remarks GENERAL: 71-year-old male sitting up in bed in no acute distress. Patient currently undergoing bed pad change s/p semisolid BM with bright red blood. SKIN: No rashes, ecchymoses or lesions. Improving erythema around anal area with barrier cream applied s/p bed pad change. HEENT: Atraumatic, normocephalic with EOMI. MMM. No JVD or LAD appreciated. No rhinorrhea. CARDIOVASCULAR: Regular rate and rhythm without murmurs, gallops, or rubs. RESPIRATORY: Mild wheezing diffusely. Equal breath sounds bilaterally. No increase in respiratory effort. GASTROINTESTINAL: Abdomen soft with mild distention. Nontender to palpation in all 4 quadrants. No guarding or rebound tenderness. Normoactive bowel sounds. MUSCULOSKELETAL: Extremities without cyanosis or edema. No calf tenderness. NEUROLOGICAL:AAOx3. Motor and sensory grossly within normal limits. Normal speech. (Ben Vaz MD R1) A/P Assessment and Plan 71yo man with h/o C. 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 Discharge Planning Pending evaluation and recommendations by ID with clinical improvement. Medical team discussed with case management for possible placement. Medical team reached out to patient's to discuss rehabilitation placement, however she has been unable to be reached at the provided phone numbers. Nursing staff notified to page medical team if patient's visits today, or otherwise obtain his 's phone number. (Ben Vaz MD R1) Attending Attestation Patient seen and examined. Case reviewed and discussed with the resident team. Agree with plan of care as discussed with me and documented in the resident note. (Yoana Rodriguez MD) Problem List: (1) C. difficile diarrhea Status: Acute Plan: C.diff colitis after levaquin use for a COPD exacerbation. Allergic to vancomycin and Flagyl according to records. Infectious disease has been consulted for assistance with antibiotic management - PO Vancomycin 125mg q 6hrs - Patient monitored closely for allergy --> No report of adverse reactions - If patient remains afebrile and clinically improving, we'll plan for possible discharge tomorrow. - Added Fidoxamicin - Added mesalamine for 7 days - Added Metamucil BID for stool bulking - Probiotics: lactobacillus Full liquid diet, advance as tolerated Monitor intake and output, record bowel movements - Monitor and replace electrolytes. PT for general weakness Zofran 4 mg IV push every 6 hours when necessary for nausea or vomiting (2) GI bleed Status: Acute Plan: GI bleeding, likely from c-diff inflammation. Hemoglobin stable. However , he does have a history of upper GI bleed with gastritis, required transfusion in the past. GI consulted, appreciate recommendations - Abdomen and pelvis CT: Nonspecific bowel gas pattern which may represent ileus/gastroenteritis. Mild ascitic fluid. Small pleural effusions bilaterally. Small amount of pericardial fluid. Stable left adrenal adenoma. Small bilateral nonobstructing renal calculi. New high-density. Metallic structure along the posterior stomach of unclear significance. This may represent a interval bullet fragment or other structure. There is anasarca. - EGD/colonoscopy as an outpatient - Monitor hemoglobin, stable - GI recommends further work up with endoscopy as an outpatient once his infection has cleared and normal bowel function has returned. (3) Contact dermatitis Status: Acute Plan: Likely from diarrhea, dermatitis around anal area - Keep area dry and clean as much as possible - Barrier cream (4) COPD (chronic obstructive pulmonary disease) Status: Chronic Plan: History of COPD presents after incomplete treatment of COPD exacerbation. Mild cardiomegaly on x-ray. Albuterol neb 2.5 mg neb every 4 hours when necessary for shortness of breath or wheezing DuoNeb 1 neb every 4 hours when necessary for shortness of breath or wheezing Continue home medication of Symbicort 2 puffs inhaled twice a day Prednisone 50mg for 5 days, discontinued (5) HTN (hypertension) Status: Acute Plan: Continue diltiazem/Cardizem 240 mg BID Restart home lisinopril 40 mg daily Restart spironolactone 25 mg daily Clonidine prn BP >180/100 (6) FEN/PPX Status: Acute Plan: Fluids: Normal saline 125 mls/hr, will be discontinued at DC, encouraged PO hydration Electrolytes: Hypokalemic to 3.1, added 20 mEq of potassium to IV fluids and administered 40 mEq by mouth, potassium recheck ordered for 04/27 at 2000 Nutrition: Full liquids, advance as tolerated DVT prophylaxis: Bilateral SCDs, defer anticoagulation due to + Hemoccult GI prophylaxis: Protonix 40mg daily Chronic medical problems: Continue home medications as below: [place] 325-10 mg 1 tab by mouth every 4 hours when necessary for pain 6-10 Aspirin 81 mg chew by mouth daily for cardiovascular disease Celexa 60 mg by mouth daily Flexeril 10 mg by mouth 3 times a day donepezil/Aricept 10 mg by mouth daily at bedtime Flonase 2 spray each nares twice a day Gabapentin 100 mg by mouth 3 times a day Latanoprost eyedrops 1 drop each eye daily at bedtime Ambien 5 million by mouth daily at bedtime when necessary for insomnia (Ben Vaz MD R1) Ben Vaz MD R1 Apr 27, 2017 15:30 Yoana Rodriguez MD Apr 28, 2017 08:23
--- NOTE | 2017-04-27 15:36 | HHI.GIFU ---
Subjective Remarks Resting in bed. States his pain is better, but he has had some fevers and is still having 6 loose stools per day. Today, one of these had a significant amount of blood. He cannot tell if it was streaked, but states the whole stool appeared bloody. He reports that his last colonoscopy was 2003. (Brittney Coronado) Objective Vitals I&O Vital Signs Date Time Temp Pulse Resp B/P Pulse Ox O2 Delivery O2 Flow Rate FiO2 04/27/17 12:04 98.4 86 20 158/70 94 04/27/17 08:45 Room Air 04/27/17 08:00 100.3 66 20 184/86 96 184/86 04/27/17 04:16 99.6 87 20 180/78 95 04/27/17 04:00 Room Air 04/27/17 01:06 100.0 84 20 160/80 94 04/27/17 00:00 Room Air 04/26/17 20:55 98.5 89 21 162/74 98 04/26/17 20:00 Room Air 04/26/17 16:00 98.0 78 18 145/70 97 I/O 04/26/17 04/26/17 04/26/17 04/27/17 04/27/17 04/27/17 07:00 15:00 23:00 07:00 15:00 23:00 Intake Total 1247 ml 1516 ml 1041 ml 1016 ml 1069 ml Output Total 500 ml 850 ml 1 ml Balance 747 ml 666 ml 1041 ml 1015 ml 1069 ml Intake Oral 330 ml 700 ml 240 ml IV Total 917 ml 816 ml 801 ml 1016 ml 1069 ml Output Urine Total 500 ml 850 ml Stool Total 1 ml # Voids 1 1 # Bowel Movements 1 2 1 Laboratory Laboratory Tests Test 04/27/17 07:00 White Blood Count 9.0 Red Blood Count 3.10 Hemoglobin 8.3 Hematocrit 24.5 Mean Corpuscular Volume 79.0 Mean Corpuscular Hemoglobin 26.6 Mean Corpuscular Hemoglobin 33.7 Concent Red Cell Distribution Width 18.7 Platelet Count 368 Mean Platelet Volume 7.4 Sodium Level 139 Potassium Level 3.1 Chloride Level 107 Carbon Dioxide Level 22.8 Anion Gap 9 Blood Urea Nitrogen 7 Creatinine 0.51 Estimat Glomerular Filtration 160 Rate Random Glucose 99 Calcium Level 6.9 Protein Corrected Calcium 8.2 Total Protein 4.6 Imaging Last Impressions Abdomen/Pelvis CT 04/22/17 0000 Signed Impressions: Service Date/Time: Saturday, April 22, 2017 19:17 - CONCLUSION: 1. Nonspecific bowel gas pattern which may represent an ileus or gastroenteritis. 2. Mild ascitic fluid in the abdomen and pelvis. 3. Small pleural effusions again noted left greater than right. 4. Small amount of pericardial fluid now noted. 5. Stable left adrenal adenoma.. 6. Small bilateral nonobstructing renal calculi. 7. New high density apparent metallic structure along the posterior stomach of unclear significance. This may or present an interval bullet fragment or other structure. 8. There is anasarca. Дмитрий Hoyos MD Chest X-Ray 04/19/17 0000 Signed Impressions: Service Date/Time: Wednesday, April 19, 2017 10:55 - CONCLUSION: 1. Mild cardiomegaly. No acute findings. Richard Tripp MD Physical Exam HEENT: Normocephalic; atraumatic; no jaundice. CHEST: CTA CARDIAC: RRR ABDOMEN: Soft, soft, mild to mod llq tenderness, no hepatosplenomegaly; bowel sounds are present in all four quadrants. EXTREMITIES: No clubbing, cyanosis, or edema. SKIN: Normal; no rash; no jaundice. QUESTIONED DOCUMENTS EXAMINER: No focal deficits; alert and oriented times three. (Brittney Coronado) Assessment and Plan Plan ASSESSMENT - CDiff Colitis. Allergy to Flagyl. Abdomen/Pelvis CT (04/22/17)-----> 1. Nonspecific bowel gas pattern which may represent an ileus or gastroenteritis. 2. Mild ascitic fluid in the abdomen and pelvis. 3. Small pleural effusions again noted left greater than right. 4. Small amount of pericardial fluid now noted. 5. Stable left adrenal adenoma.. 6. Small bilateral nonobstructing renal calculi. 7. New high density apparent metallic structure along the posterior stomach of unclear significance. This may or present an interval bullet fragment or other structure. 8. There is anasarca. He is on Dificid, Oral Vanco, Lactinex, Asacol HD. His WBC has been improving and his pain has been improving, but he is having fevers and still having 6 loose stools per day. The last one was mostly bloody stool. Last colonoscopy 2003. Not hypotensive. HH has been persistently trending down and is currently 8.3/24.5. Will add cholestyramine and plan for flexible sigmoidoscopy in am. - GERD. PPI - Leukocytosis secondary to above, improved, but febrile. PLAN - Plan for flexible sigmoidoscopy in am - Obtain consents - Clear liquids - NPO after MN - SSE x 2 at 6am - Monitor HH - Transfuse as necessary - Cont. Oral vanco - Cont. Dificid - Cont. Asacol HD - Cont. Lactinex - Add Cholestyramine - Pt seen and examined by Dr. Morel and myself and this note is written on his behalf (Brittney Coronado) Physician Comments Seen and examined with ANDREA, add cholestyramine and plan is to scope tomorrow . Will follow, thank you (Robinson Morel MD) Brittney Coronado Apr 27, 2017 15:36 Robinson Morel MD Apr 27, 2017 19:33
[2017-04-27 16:00] VITALS: BP_SYST 180; BP_SYST 181; BP_DIAS 81; BP_DIAS 82; PULSE 78; RESP 18; TEMP 97.9; O2SAT 98
[2017-04-27] MEDS: NS + KCL 20 MEQ INJ 1,000 ML IV SCH ×2 (17:05→22:34)
[2017-04-27] MEDS: cloNIDine HCL 0.1 MG TAB PO PRN (17:16)
[2017-04-27 20:00] VITALS: BP 120/70; PULSE 76; RESP 18; TEMP 99.2; O2SAT 97
[2017-04-27 21:02] LABS: HEMATOCRIT 23.6 % (39.0-51.0); REVIEW FLAG FINAL
[2017-04-27] MEDS: LISINOPRIL 20 MG TAB PO SCH (21:06)
[2017-04-27] MEDS: CHOLESTYRAMINE 4 GM PACKET PO SCH (21:06)
[2017-04-27] MEDS: ATORVASTATIN 40 MG TAB PO SCH (21:06)
[2017-04-27] MEDS: DONEPEZIL HCL 5 MG TAB PO SCH (21:07)
[2017-04-27] MEDS: LATANOPROST 0.005% OPHT SOLN 2.5 ML BTL EACH EYE SCH (21:09)
[2017-04-27] MEDS: POTASSIUM CHLOR 20 MEQ PREMIX 100 ML IV SCH (22:34)
[2017-04-27] MEDS: ZOLPIDEM TARTRATE 5 MG TAB PO PRN (22:34)
[2017-04-28] MEDS: POTASSIUM CHLOR 20 MEQ PREMIX 100 ML IV SCH (00:33)
[2017-04-28] MEDS: MESALAMINE HD 800 MG DELAYED RELEASE TAB PO SCH ×3 (05:19→22:00)
[2017-04-28 05:49] LABS: C. DIFF EPI 027 PRESUMPTIVE NEGATIVE (NEGATIVE); C. DIFF TOXIN PCR NEGATIVE (NEGATIVE)
[2017-04-28 06:26] LABS: HEMATOCRIT 24.4 % (39.0-51.0); MEAN CELL VOLUME 81.6 FL (80.0-100.0); MEAN CORPUSCULAR HEMOGLOBIN 26.4 PG (27.0-34.0); MEAN CORPUSCULAR HGB CONC 32.3 % (32.0-36.0); PLATELET COUNT 358 TH/MM3 (150-450); RED BLOOD COUNT 2.99 MIL/MM3 (4.50-5.90); RED CELL DISTRIBUTION WIDTH 18.2 % (11.6-17.2); REVIEW FLAG FINAL; WHITE BLOOD COUNT 7.9 TH/MM3 (4.0-11.0)
[2017-04-28 06:34] LABS: BICARBONATE 21.3 MEQ/L (21.0-32.0); POTASSIUM 3.5 MEQ/L (3.5-5.1)
[2017-04-28 06:57] LABS: CALCIUM-PROTEIN CORRECTED 8.8 MG/DL (8.5-10.1)
[2017-04-28 08:00] VITALS: BP 160/70; PULSE 79; RESP 20; TEMP 98.5; O2SAT 96
[2017-04-28] MEDS: CALCIUM CARBONATE 500 MG CHEWABLE TAB CHEW SCH ×2 (08:53→22:00)
[2017-04-28] MEDS: BUDESONIDE-FORMOTEROL 160/4.5 MCG INHALER INH SCH ×2 (08:54→22:02)
[2017-04-28] MEDS: NYSTATIN SUSP 500,000 U/5 ML CUP SWISH-SWAL SCH ×4 (08:54→22:00)
[2017-04-28] MEDS: SODIUM CHLORIDE 0.9% FLUSH 10 ML FLUSH IV FLUSH SCH ×2 (08:54→21:00)
[2017-04-28] MEDS: DILTIAZEM-CD 240 MG CAP ER PO SCH ×2 (08:55→22:01)
[2017-04-28] MEDS: LACTOBACILLUS ACIDOPHILUS TAB PO SCH ×3 (08:55→17:55)
[2017-04-28] MEDS: CYCLOBENZAPRINE HCL 10 MG TAB PO SCH ×3 (08:55→17:55)
[2017-04-28] MEDS: VANCOMYCIN 500 MG VIAL (FOR ORAL USE ONLY) PO SCH ×4 (08:55→22:00)
[2017-04-28] MEDS: SPIRONOLACTONE 25 MG TAB PO SCH (08:55)
[2017-04-28] MEDS: PANTOPRAZOLE SOD 40 MG DELAYED RELEASE TAB PO SCH (08:55)
[2017-04-28] MEDS: FIDAXOMICIN 200 MG TAB PO SCH ×2 (08:55→22:01)
[2017-04-28] MEDS: GABAPENTIN 400 MG CAP PO SCH ×3 (08:55→17:55)
[2017-04-28] MEDS: CITALOPRAM HYDROBROMIDE 20 MG TAB PO SCH (08:55)
[2017-04-28] MEDS: NS + KCL 20 MEQ INJ 1,000 ML IV SCH ×3 (08:57→22:02)
[2017-04-28] MEDS: CHOLESTYRAMINE 4 GM PACKET PO SCH ×2 (08:58→20:30)
[2017-04-28] MEDS: PSYLLIUM FIBER SF/GF 6 GM POWD PKT PO SCH ×2 (08:58→21:00)
[2017-04-28] MEDS: PETROLATUM 49%/ZINC OXIDE 15% 4 OUNCE TUBE TOPICAL SCH (08:58)
[2017-04-28] MEDS: FLUTICASONE PROPIONATE 50 MCG/ACT 16 GM NASAL SPRAY EACH NARE SCH ×2 (08:58→22:02)
--- NOTE | 2017-04-28 09:32 | HHI.FPPN ---
Subjective Remarks No acute events. Reports having about 2 bowel movements overnight. Stools still loose with possible blood. Has some lower abdominal cramping. No nausea or vomiting. Overall reports feeling much better than admission. Planning for sigmoidoscopy today for blood in stool. (Дмитрий Duval MD R2) Objective Vitals Vital Signs Date Time Temp Pulse Resp B/P Pulse Ox O2 Delivery O2 Flow Rate FiO2 04/28/17 08:45 Room Air 04/28/17 08:00 98.5 79 20 160/70 96 04/28/17 04:00 Room Air 04/28/17 00:00 Room Air 04/27/17 20:00 99.2 76 18 120/70 97 04/27/17 20:00 Room Air 04/27/17 16:00 97.9 78 18 181/81 98 180/82 04/27/17 12:04 98.4 86 20 158/70 94 I/O 04/27/17 04/27/17 04/27/17 04/28/17 04/28/17 04/28/17 07:00 15:00 23:00 07:00 15:00 23:00 Intake Total 1016 ml 1549 ml 1002 ml 1102 ml Output Total 1 ml 900 ml Balance 1015 ml 649 ml 1002 ml 1102 ml Intake Oral 480 ml IV Total 1016 ml 1069 ml 1002 ml 1102 ml Output Urine Total 900 ml Stool Total 1 ml # Voids 1 2 # Bowel Movements 4 (Дмитрий Duval MD R2) Result Diagram: 04/28/17 0537 04/28/17 0537 Objective Remarks GENERAL: 71-year-old male sitting up in bed in no acute distress. Patient currently undergoing bed pad change s/p semisolid BM with bright red blood. SKIN: No rashes, ecchymoses or lesions. Improving erythema around anal area with barrier cream applied s/p bed pad change. HEENT: Atraumatic, normocephalic with EOMI. MMM. No JVD or LAD appreciated. No rhinorrhea. CARDIOVASCULAR: Regular rate and rhythm without murmurs, gallops, or rubs. RESPIRATORY: Mild wheezing diffusely. Equal breath sounds bilaterally. No increase in respiratory effort. GASTROINTESTINAL: Abdomen soft with mild distention. Nontender to palpation in all 4 quadrants. No guarding or rebound tenderness. Normoactive bowel sounds. MUSCULOSKELETAL: Extremities without cyanosis or edema. No calf tenderness. NEUROLOGICAL:AAOx3. Motor and sensory grossly within normal limits. Normal speech. (Дмитрий Duval MD R2) A/P Assessment and Plan 71yo man with h/o C. 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 Also with blood in stool. Discharge Planning Pending evaluation and recommendations by ID with clinical improvement. Medical team discussed with case management for possible placement. Medical team reached out to patient's to discuss rehabilitation placement, however she has been unable to be reached at the provided phone numbers. Will try again today. (Дмитрий Duval MD R2) Attending Attestation Patient seen and examined. Case reviewed and discussed with the resident team. Agree with plan of care as discussed with me and documented in the resident note. (Yoana Rodriguez MD) Problem List: (1) C. difficile diarrhea Status: Acute Plan: C.diff colitis after levaquin use for a COPD exacerbation. Allergic to vancomycin and Flagyl according to records. Last c.diff negative, symptoms improving. Infectious disease has been consulted for assistance with antibiotic management - PO Vancomycin 125mg q 6hrs - Fidoxamicin - Mesalamine for 7 day course - Added Metamucil BID for stool bulking - Probiotics: lactobacillus Full liquid diet, advance as tolerated Monitor intake and output, record bowel movements - Monitor and replace electrolytes. PT for general weakness Zofran 4 mg IV push every 6 hours when necessary for nausea or vomiting (2) GI bleed Status: Acute Plan: GI bleeding, likely from c-diff inflammation. Hemoglobin low but stable. However, he does have a history of upper GI bleed with gastritis, required transfusion in the past. GI consulted, appreciate recommendations - Sigmoidoscopy this morning - Monitor hemoglobin, stable (3) Contact dermatitis Status: Acute Plan: Likely from diarrhea, dermatitis around anal area - Keep area dry and clean as much as possible - Barrier cream (4) COPD (chronic obstructive pulmonary disease) Status: Chronic Plan: History of COPD presents after incomplete treatment of COPD exacerbation. Mild cardiomegaly on x-ray. Albuterol neb 2.5 mg neb every 4 hours when necessary for shortness of breath or wheezing DuoNeb 1 neb every 4 hours when necessary for shortness of breath or wheezing Continue home medication of Symbicort 2 puffs inhaled twice a day Prednisone 50mg for 5 days, discontinued (5) HTN (hypertension) Status: Acute Plan: Continue diltiazem/Cardizem 240 mg BID Restart home lisinopril 40 mg daily Restart spironolactone 25 mg daily Clonidine prn BP >180/100 (6) FEN/PPX Status: Acute Plan: Fluids: Normal saline 125 mls/hr with added potassium, will be discontinued at DC, encouraged PO hydration Electrolytes: Hypokalemic, monitor and replace Nutrition: Full liquids, advance as tolerated DVT prophylaxis: Bilateral SCDs, defer anticoagulation due to + Hemoccult GI prophylaxis: Protonix 40mg daily Chronic medical problems: Continue home medications as below: [place] 325-10 mg 1 tab by mouth every 4 hours when necessary for pain 6-10 Aspirin 81 mg chew by mouth daily for cardiovascular disease Celexa 60 mg by mouth daily Flexeril 10 mg by mouth 3 times a day donepezil/Aricept 10 mg by mouth daily at bedtime Flonase 2 spray each nares twice a day Gabapentin 100 mg by mouth 3 times a day Latanoprost eyedrops 1 drop each eye daily at bedtime Ambien 5 million by mouth daily at bedtime when necessary for insomnia (Дмитрий Duval MD R2) Дмитрий Duval MD R2 Apr 28, 2017 09:32 Yoana Rodriguez MD Apr 28, 2017 16:26
[2017-04-28 11:55] VITALS: BP 160/80; PULSE 71; RESP 20; TEMP 99.2; O2SAT 95
--- NOTE | 2017-04-28 13:31 | GIPROC ---
[facility] [address] [facility]. [facility], [id number] FLEXIBLE SIGMOIDOSCOPY PROCEDURE REPORT EXAM DATE: 04/28/2017 PATIENT NAME: Jose Garcia MR #: [id number] BIRTHDATE: 1945 ORDER #: [id number] ATTENDING: Robinson Morel MD [employer] ADJUSTER: Liliana Chapa and Bk Mcnamara STATUS: inpatient INDICATIONS: The patient is a 71 yr old male here for a flexible sigmoidoscopy due to abdominal pain, generalized and hematochezia PROCEDURE PERFORMED: Flexible Sigmoidoscopy with biopsy MEDICATIONS: None and Per Anesthesia. ESTIMATED BLOOD LOSS: None CONSENT: The patient understands the risks and benefits of the procedure and understands that these risks include, but are not limited to: sedation, allergic reaction, infection, perforation and/or bleeding. Alternative means of evaluation and treatment include, among others: physical exam, x-rays, and/or surgical intervention. The patient elects to proceed with this endoscopic procedure. medical equipment was checked for proper function. Hand hygiene and appropriate measures for infection prevention was taken. After the risks, benefits and alternatives of the procedure were thoroughly explained, Informed consent was verified, confirmed and timeout was successfully executed by the treatment team. A digital rectal exam revealed external hemorrhoids The Pentax [id number] endoscope was introduced through the anus and advanced to the sigmoid colon. The prep was good. The instrument was then slowly withdrawn as the colon was fully examined. COLON FINDINGS: There was moderate diverticulosis noted in the sigmoid colon. A circumferential patch of abnormal mucosa was found in the sigmoid colon. The mucosa was ulcerated and had loss of vascularity and superficial ulcers. Multiple biopsies were performed using cold forceps. Retroflexed views revealed internal hemorrhoid The scope was then completely withdrawn from the patient and the procedure terminated. ADVERSE EVENTS: There were no complications. IMPRESSIONS: 1. Moderate diverticulosis was noted in the sigmoid colon 2. Circumferential abnormal mucosa was found in the sigmoid colon; The mucosa was ulcerated and had loss of vascularity and superficial ulcers; multiple biopsies were performed using cold forceps 3. Retroflexed views revealed internal hemorrhoid 4. Revealed external hemorrhoids RECOMMENDATIONS: 1. Await biopsy results 2. CTA RECALL: Return 3 months Colonoscopy Robinson Morel MD eSigned: Robinson Morel MD 04/28/2017 1:31 PM cc:
[2017-04-28] MEDS ORDERED: PROPOFOL 200 MG/20 ML AMP IV ONE (13:55)
[2017-04-28 16:00] VITALS: BP 121/72; PULSE 80; RESP 18; TEMP 97; O2SAT 98
[2017-04-28] MEDS ORDERED: IOHEXOL 350 MG/ML 10 ML VIAL (for RAD DIAG) IV ONE (17:34)
--- NOTE | 2017-04-28 18:36 | RADRPT ---
EXAM DATE/TIME: 04/28/2017 17:20 [facility] COMPARISON: CT ABDOMEN & PELVIS W CONTRAST, April 22, 2017, 19:17. INDICATIONS : Evaluate for occlusion and ischemia. IV CONTRAST: 96 cc Omnipaque 350 (iohexol) IV ORAL CONTRAST: No oral contrast ingested. RADIATION DOSE: 7.52 CTDIvol (mGy) MEDICAL HISTORY : Cardiovascular disease. SURGICAL HISTORY : Appendectomy. ENCOUNTER: Initial ACUITY: 1 day PAIN SCALE: 0/10 LOCATION: Bilateral lower quadrant TECHNIQUE: Volumetric scanning was performed using a multi-row detector CT scanner. The data was post processed with a variety of visualization algorithms including full volume maximum intensity projection, multi -planar sliding thin slab reformation, curved planar reformation, and surface rendering techniques. Using automated exposure control and adjustment of the mA and/or kV according to patient size, radiat ion dose was kept as low as reasonably achievable to obtain optimal diagnostic quality images. FINDINGS: ABDOMINAL AORTA: The celiac and SMA origins are widely patent. There are single renal arteries bilaterally. There is d ense ostial plaquing on the left. No hemodynamically significant renal artery stenosis is identified. The infrarenal aorta is normal in caliber. The JASE is patent. BIFURCATION: Normal. PELVIS: The common iliac, internal iliac and external iliac circulation demonstrates only mild atheroscleroti c plaquing and is widely patent throughout its course. CT source data: The exam demonstrates mild diffuse anasarca. There are small bilateral pleural effusions. The solid o rgans of the abdomen are grossly intact by arterial phase imaging. No free intraperitoneal air is see n. There is a minimal amount of free intraperitoneal fluid. Incidental note is made of the reservoir for penile prosthesis. Note is made of fairly diffuse colonic thickening involving the descending col on and sigmoid.. CONCLUSION: 1. The celiac, SMA and JASE are all widely patent. Moody Anderson MD on April 28, 2017 at 18:31 Board Certified Radiologist. This report was verified electronically.
[2017-04-28 20:00] VITALS: BP 153/68; PULSE 81; RESP 18; TEMP 102.2; O2SAT 98
[2017-04-28] MEDS ORDERED: ACETAMINOPHEN 325 MG TAB PO PRN (21:30)
[2017-04-28] MEDS: LISINOPRIL 20 MG TAB PO SCH (22:00)
[2017-04-28] MEDS: DONEPEZIL HCL 5 MG TAB PO SCH (22:01)
[2017-04-28] MEDS: ATORVASTATIN 40 MG TAB PO SCH (22:01)
[2017-04-28] MEDS: ZOLPIDEM TARTRATE 5 MG TAB PO PRN (22:01)
[2017-04-28] MEDS: LATANOPROST 0.005% OPHT SOLN 2.5 ML BTL EACH EYE SCH (22:02)
[2017-04-28 22:07] LABS: HEMATOCRIT 22.8 % (39.0-51.0); REVIEW FLAG FINAL
[2017-04-29] VITALS: BP 133/66; PULSE 74; RESP 16; TEMP 98.4; O2SAT 95
[2017-04-29 04:00] VITALS: BP 168/81; PULSE 72; RESP 18; TEMP 98.3; O2SAT 97
[2017-04-29] MEDS: MESALAMINE HD 800 MG DELAYED RELEASE TAB PO SCH ×3 (06:40→22:00)
[2017-04-29] MEDS: NS + KCL 20 MEQ INJ 1,000 ML IV SCH (06:41)
[2017-04-29 08:00] VITALS: BP 140/70; PULSE 83; RESP 20; TEMP 99.3; O2SAT 97
[2017-04-29] MEDS: VANCOMYCIN 500 MG VIAL (FOR ORAL USE ONLY) PO SCH ×4 (09:00→21:00)
[2017-04-29 09:46] LABS: HEMATOCRIT 25.5 % (39.0-51.0); MEAN CELL VOLUME 80.7 FL (80.0-100.0); MEAN CORPUSCULAR HEMOGLOBIN 25.8 PG (27.0-34.0); PLATELET COUNT 428 TH/MM3 (150-450); RED BLOOD COUNT 3.16 MIL/MM3 (4.50-5.90); RED CELL DISTRIBUTION WIDTH 17.9 % (11.6-17.2); REVIEW FLAG FINAL; WHITE BLOOD COUNT 6.7 TH/MM3 (4.0-11.0)
[2017-04-29 10:05] LABS: BICARBONATE 20.1 MEQ/L (21.0-32.0); POTASSIUM 3.1 MEQ/L (3.5-5.1)
[2017-04-29] MEDS: SODIUM CHLORIDE 0.9% FLUSH 10 ML FLUSH IV FLUSH SCH ×2 (10:15→21:00)
[2017-04-29] MEDS: SPIRONOLACTONE 25 MG TAB PO SCH (10:15)
[2017-04-29] MEDS: PANTOPRAZOLE SOD 40 MG DELAYED RELEASE TAB PO SCH (10:15)
[2017-04-29] MEDS: CITALOPRAM HYDROBROMIDE 20 MG TAB PO SCH (10:15)
[2017-04-29] MEDS: CYCLOBENZAPRINE HCL 10 MG TAB PO SCH ×3 (10:15→18:15)
[2017-04-29] MEDS: DILTIAZEM-CD 240 MG CAP ER PO SCH ×2 (10:15→21:00)
[2017-04-29] MEDS: BUDESONIDE-FORMOTEROL 160/4.5 MCG INHALER INH SCH ×2 (10:15→21:00)
[2017-04-29] MEDS: NYSTATIN SUSP 500,000 U/5 ML CUP SWISH-SWAL SCH ×4 (10:15→21:00)
[2017-04-29] MEDS: LACTOBACILLUS ACIDOPHILUS TAB PO SCH ×3 (10:15→18:15)
[2017-04-29] MEDS: PETROLATUM 49%/ZINC OXIDE 15% 4 OUNCE TUBE TOPICAL SCH (10:15)
[2017-04-29] MEDS: GABAPENTIN 400 MG CAP PO SCH ×3 (10:15→18:14)
[2017-04-29] MEDS: FLUTICASONE PROPIONATE 50 MCG/ACT 16 GM NASAL SPRAY EACH NARE SCH ×2 (10:15→21:00)
[2017-04-29] MEDS: FIDAXOMICIN 200 MG TAB PO SCH ×2 (10:15→21:00)
[2017-04-29] MEDS: CHOLESTYRAMINE 4 GM PACKET PO SCH (10:15)
[2017-04-29] MEDS: PSYLLIUM FIBER SF/GF 6 GM POWD PKT PO SCH ×2 (10:15→21:00)
[2017-04-29] MEDS: CALCIUM CARBONATE 500 MG CHEWABLE TAB CHEW SCH ×2 (10:15→21:00)
[2017-04-29 10:24] LABS: CALCIUM-PROTEIN CORRECTED 8.2 MG/DL (8.5-10.1)
--- NOTE | 2017-04-29 10:36 | RADRPT ---
EXAM DATE/TIME: 04/29/2017 09:40 [facility] COMPARISON: CHEST SINGLE AP, January 29, 2017, 13:36. INDICATIONS : Cough MEDICAL HISTORY : Chronic obstructive pulmonary disease. Hypertension Pancreatitis. dementia SURGICAL HISTORY : None. ENCOUNTER: Initial ACUITY: 1 week PAIN SCORE: 0/10 LOCATION: Bilateral chest FINDINGS: A single view of the chest demonstrates the lungs to be symmetrically aerated without evidence of mas s, infiltrate or effusion. The cardiomediastinal contours are unremarkable. Osseous structures are intact. CONCLUSION: No acute disease. Jayme Anderson MD FACR on April 29, 2017 at 10:34 Board Certified Radiologist. This report was verified electronically.
--- NOTE | 2017-04-29 11:03 | HHI.FPPN ---
Subjective Remarks Patient with fever overnight of 102.2. Isolated elevated temperature, normal since then. [place] slightly cold overnight. Has increased coughing and sputum production this morning. Getting chest x-ray this morning. Also getting blood cultures and urinalysis. Reviewed colonoscopy results with patient. He has diverticulosis, colonic ulceration, and internal/external hemorrhoids. He reports 2 bowel movements overnight. They were more formed than before. He has no abdominal pain. Does not know if his stools are black or red. His hemoglobin increased to 8.2. (Дмитрий Duval MD R2) Objective Vitals Vital Signs Date Time Temp Pulse Resp B/P Pulse Ox O2 Delivery O2 Flow Rate FiO2 04/29/17 08:00 99.3 83 20 140/70 97 04/29/17 07:50 Room Air 04/29/17 04:00 Room Air 04/29/17 04:00 98.3 72 18 168/81 97 04/29/17 00:00 98.4 74 16 133/66 95 04/29/17 00:00 Room Air 04/28/17 20:00 Room Air 04/28/17 20:00 102.2 81 18 153/68 98 04/28/17 16:00 97.0 80 18 121/72 98 04/28/17 13:49 69 18 157/63 96 04/28/17 13:39 69 18 131/56 99 04/28/17 13:29 98.1 75 18 155/72 96 04/28/17 11:55 99.2 71 20 160/80 95 I/O 04/28/17 04/28/17 04/28/17 04/29/17 04/29/17 04/29/17 07:00 15:00 23:00 07:00 15:00 23:00 Intake Total 1102 ml 1157 ml 1007 ml 779 ml Balance 1102 ml 1157 ml 1007 ml 779 ml Intake Oral 360 ml 120 ml 0 ml IV Total 1102 ml 647 ml 887 ml 779 ml Other 150 ml # Voids 2 4 2 2 # Bowel Movements 2 2 1 (Дмитрий Duval MD R2) Result Diagram: 04/29/17 0905 04/29/17 0905 Imaging Last 72 hours Impressions Chest X-Ray 04/29/17 0000 Signed Impressions: Service Date/Time: Saturday, April 29, 2017 09:40 - CONCLUSION: No acute disease. Jayme Anderson MD FACR Abdomen/Pelvis CT 04/28/17 0000 Signed Impressions: Service Date/Time: Friday, April 28, 2017 17:20 - CONCLUSION: 1. The celiac, SMA and JASE are all widely patent. Moody Anderson MD Objective Remarks GENERAL: 71-year-old male sitting up in bed in no acute distress. Patient currently undergoing bed pad change s/p semisolid BM with bright red blood. SKIN: No rashes, ecchymoses or lesions. Improving erythema around anal area with barrier cream applied s/p bed pad change. HEENT: Atraumatic, normocephalic with EOMI. MMM. No JVD or LAD appreciated. No rhinorrhea. CARDIOVASCULAR: Regular rate and rhythm without murmurs, gallops, or rubs. RESPIRATORY: Mild wheezing diffusely. Equal breath sounds bilaterally. No increase in respiratory effort. GASTROINTESTINAL: Abdomen soft. Nontender to palpation in all 4 quadrants. No guarding or rebound tenderness. Normoactive bowel sounds. MUSCULOSKELETAL: Extremities without cyanosis or edema. No calf tenderness. NEUROLOGICAL:AAOx3. Motor and sensory grossly within normal limits. Normal speech. (Дмитрий Duval MD R2) A/P Assessment and Plan 71yo man with h/o C. 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 Also with blood in stool. Discharge Planning Pending evaluation and recommendations by ID with clinical improvement. Medical team discussed with case management for possible placement. Medical team reached out to patient's to discuss rehabilitation placement, however she has been unable to be reached at the provided phone numbers. Will try again today. (Дмитрий Duval MD R2) Attending Attestation Patient seen and examined. Case reviewed and discussed with the resident team. Agree with plan of care as discussed with me and documented in the resident note. (Yoana Rodriguez MD) Problem List: (1) Fever of unknown origin Status: Acute Plan: 102.2 fever overnight. Has diverticulosis. Has coughing with increased sputum production. Chest x-ray negative. Urinalysis pending. Blood cultures pending. Stool studies pending. - Follow cultures - Watch temperatures. - Watch white count, normal today (2) C. difficile diarrhea Status: Acute Plan: C.diff colitis after levaquin use for a COPD exacerbation. Allergic to vancomycin and Flagyl according to records. Last c.diff negative, symptoms improving. Infectious disease has been consulted for assistance with antibiotic management - PO Vancomycin 125mg q 6hrs - Fidoxamicin - Mesalamine for 7 day course - Added Metamucil BID for stool bulking - Probiotics: lactobacillus Heart healthy diet, advance as tolerated Monitor intake and output, record bowel movements - Monitor and replace electrolytes. PT for general weakness Zofran 4 mg IV push every 6 hours when necessary for nausea or vomiting (3) GI bleed Status: Acute Plan: GI bleeding, likely from c-diff inflammation. Hemoglobin low but stable. However, he does have a history of upper GI bleed with gastritis, required transfusion in the past. Sigmoidoscopy showed ulceration of colon, hemorrhoids, and diverticulosis. GI consulted, appreciate recommendations - Repeat CT as an outpatient - Monitor hemoglobin, stable (4) Contact dermatitis Status: Acute Plan: Likely from diarrhea, dermatitis around anal area - Keep area dry and clean as much as possible - Barrier cream (5) COPD (chronic obstructive pulmonary disease) Status: Chronic Plan: History of COPD presents after incomplete treatment of COPD exacerbation. Mild cardiomegaly on x-ray. Albuterol neb 2.5 mg neb every 4 hours when necessary for shortness of breath or wheezing DuoNeb 1 neb every 4 hours when necessary for shortness of breath or wheezing Continue home medication of Symbicort 2 puffs inhaled twice a day Prednisone 50mg for 5 days, discontinued (6) HTN (hypertension) Status: Acute Plan: Continue diltiazem/Cardizem 240 mg BID Restart home lisinopril 40 mg daily Restart spironolactone 25 mg daily Clonidine prn BP >180/100 (7) FEN/PPX Status: Acute Plan: Fluids: PO fluids Electrolytes: Hypokalemic, monitor and replace Nutrition: Heart healthy diet DVT prophylaxis: Bilateral SCDs, defer anticoagulation due to + Hemoccult GI prophylaxis: Protonix 40mg daily Chronic medical problems: Continue home medications as below: [place] 325-10 mg 1 tab by mouth every 4 hours when necessary for pain 6-10 Aspirin 81 mg chew by mouth daily for cardiovascular disease Celexa 60 mg by mouth daily Flexeril 10 mg by mouth 3 times a day donepezil/Aricept 10 mg by mouth daily at bedtime Flonase 2 spray each nares twice a day Gabapentin 100 mg by mouth 3 times a day Latanoprost eyedrops 1 drop each eye daily at bedtime Ambien 5 million by mouth daily at bedtime when necessary for insomnia (Дмитрий Duval MD R2) Дмитрий Duval MD R2 Apr 29, 2017 11:03 Yoana Rodriguez MD Apr 29, 2017 11:59
[2017-04-29] MEDS ORDERED: POTASSIUM CHLORIDE 10 MEQ CONTROLLED RELEASE TAB PO ONE (11:15)
[2017-04-29 12:00] VITALS: BP 150/60; PULSE 80; RESP 20; TEMP 99.4; O2SAT 97
[2017-04-29 12:54] LABS: BACTERIA, URINE RARE /hpf; BLOOD, URINE NEG (NEG); COMMENT (UR) CULTURE INDICATED; CULTURE IF INDICATED CULTURE INDICATED; GLUCOSE,URINE NEG (NEG); KETONE, URINE NEG (NEG); MUCUS URINE FEW /lpf (OCC); NITRITE,URINE NEG (NEG); PH, URINE 5.5 (5.0-8.5); SQUAMOUS EPITHELIAL CELL URINE <1 /hpf (0-5); URINE COLOR YELLOW (YELLW/STRAW)
[2017-04-29 16:00] VITALS: BP 145/70; PULSE 77; RESP 20; TEMP 99.9; O2SAT 97
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
[2017-04-29 20:00] VITALS: BP 166/77; PULSE 74; RESP 22; TEMP 99.6; O2SAT 96
--- NOTE | 2017-04-29 20:18 | RADRPT ---
EXAM DATE/TIME: 04/29/2017 19:58 [place] COMPARISON: No previous studies available for comparison. INDICATIONS : Left shoulder pain after arm was pulled on. MEDICAL HISTORY : None. SURGICAL HISTORY : None. ENCOUNTER: Initial ACUITY: 2 days PAIN SCORE: 9/10 LOCATION: Left shoulder. FINDINGS: There is no fracture or subluxation of the left shoulder. Moderate to severe osteoarthritis seen of b oth the acromioclavicular and glenohumeral joints. Radiographic appearance of the soft tissues within normal limits. CONCLUSION: Intact left shoulder. Moderate to severe acromioclavicular and glenohumeral joint osteoarthritis. Jose Browne MD on April 29, 2017 at 20:15 Board Certified Radiologist. This report was verified electronically.
[2017-04-29] MEDS: ATORVASTATIN 40 MG TAB PO SCH (21:00)
[2017-04-29] MEDS: LATANOPROST 0.005% OPHT SOLN 2.5 ML BTL EACH EYE SCH (21:00)
[2017-04-29] MEDS: LISINOPRIL 20 MG TAB PO SCH (21:00)
[2017-04-29] MEDS: DONEPEZIL HCL 5 MG TAB PO SCH (21:00)
[2017-04-30] VITALS: BP 157/72; PULSE 93; RESP 20; TEMP 97.6; O2SAT 94
[2017-04-30] MEDS: CHOLESTYRAMINE 4 GM PACKET PO SCH ×2 (01:05→08:19)
[2017-04-30 04:00] VITALS: BP 172/74; PULSE 73; RESP 20; TEMP 98.5; O2SAT 96
[2017-04-30] MEDS: MESALAMINE HD 800 MG DELAYED RELEASE TAB PO SCH ×2 (05:19→13:01)
[2017-04-30 08:00] VITALS: BP 164/68; PULSE 69; RESP 18; TEMP 98.5; O2SAT 69
[2017-04-30] MEDS: VANCOMYCIN 500 MG VIAL (FOR ORAL USE ONLY) PO SCH ×2 (08:18→13:01)
[2017-04-30] MEDS: CYCLOBENZAPRINE HCL 10 MG TAB PO SCH ×2 (08:18→13:01)
[2017-04-30] MEDS: PANTOPRAZOLE SOD 40 MG DELAYED RELEASE TAB PO SCH (08:18)
[2017-04-30] MEDS: NYSTATIN SUSP 500,000 U/5 ML CUP SWISH-SWAL SCH ×2 (08:18→13:00)
[2017-04-30] MEDS: SPIRONOLACTONE 25 MG TAB PO SCH (08:18)
[2017-04-30] MEDS: GABAPENTIN 400 MG CAP PO SCH ×2 (08:18→13:01)
[2017-04-30] MEDS: DILTIAZEM-CD 240 MG CAP ER PO SCH (08:18)
[2017-04-30] MEDS: CALCIUM CARBONATE 500 MG CHEWABLE TAB CHEW SCH (08:18)
[2017-04-30] MEDS: LACTOBACILLUS ACIDOPHILUS TAB PO SCH ×2 (08:18→13:01)
[2017-04-30] MEDS: CITALOPRAM HYDROBROMIDE 20 MG TAB PO SCH (08:19)
[2017-04-30] MEDS: PSYLLIUM FIBER SF/GF 6 GM POWD PKT PO SCH (08:19)
[2017-04-30] MEDS: FIDAXOMICIN 200 MG TAB PO SCH (08:19)
[2017-04-30] MEDS: BUDESONIDE-FORMOTEROL 160/4.5 MCG INHALER INH SCH (08:19)
[2017-04-30] MEDS: FLUTICASONE PROPIONATE 50 MCG/ACT 16 GM NASAL SPRAY EACH NARE SCH (08:20)
[2017-04-30] MEDS: SODIUM CHLORIDE 0.9% FLUSH 10 ML FLUSH IV FLUSH SCH (08:21)
[2017-04-30] MEDS: PETROLATUM 49%/ZINC OXIDE 15% 4 OUNCE TUBE TOPICAL SCH (08:32)
--- NOTE | 2017-04-30 10:49 | HHI.FPPN ---
Subjective Remarks Patient seen and examined this morning by medical team. No acute events overnight vitals signs stable. Patient reports no bowel movements overnight and is feeling better. He states his stools are still semisolid in consistency, however are firming up. Otherwise he has no complaints and denies any fevers, chills, shortness of breath, chest pain, N/V, abdominal pain, or calf tenderness. He requested to be discharged home, however after discussion of his deconditioned status he is agreeable to rehabilitation. While the patient requests to be transferred to [facility], after discussion with outsole caser he is not a candidate due to poor participation with physical therapy at this time. Further discussion with case management indicates the patient will need to show more involvement with physical therapy, otherwise will not be able to be discharged to rehabilitation center. Options were discussed with the patient as well as his . They both selected for him to be discharged home with home health a this time. (Ben Vaz MD R1) Objective Vitals Vital Signs Date Time Temp Pulse Resp B/P Pulse Ox O2 Delivery O2 Flow Rate FiO2 04/30/17 08:20 Room Air 04/30/17 08:00 98.5 69 18 164/68 69 04/30/17 04:00 98.5 73 20 172/74 96 04/30/17 04:00 Room Air 04/30/17 00:00 97.6 93 20 157/72 94 04/30/17 00:00 Room Air 04/29/17 20:00 99.6 74 22 166/77 96 04/29/17 20:00 Room Air 04/29/17 16:00 99.9 77 20 97 145/70 04/29/17 16:00 Room Air 04/29/17 12:00 Room Air 04/29/17 12:00 99.4 80 20 150/60 97 I/O 04/29/17 04/29/17 04/29/17 04/30/17 04/30/17 04/30/17 07:00 15:00 23:00 07:00 15:00 23:00 Intake Total 779 ml 960 ml Balance 779 ml 960 ml Intake Oral 0 ml 960 ml IV Total 779 ml # Voids 2 3 5 # Bowel Movements 1 2 (Ben Vaz MD R1) Result Diagram: 04/29/1790404/29/17904 Objective Remarks GENERAL: 71-year-old male sitting up in bed in no acute distress. SKIN: No rashes, ecchymoses or lesions. Per nursing report, anal erythema improving with application of barrier cream. HEENT: Atraumatic, normocephalic with EOMI. MMM. No JVD or LAD appreciated. No rhinorrhea. CARDIOVASCULAR: Regular rate and rhythm without murmurs, gallops, or rubs. RESPIRATORY: Mild wheezing diffusely. Equal breath sounds bilaterally. No increase in respiratory effort. GASTROINTESTINAL: Abdomen soft. Nontender to palpation in all 4 quadrants. No guarding or rebound tenderness. Normoactive bowel sounds. No masses appreciated MUSCULOSKELETAL: Extremities without cyanosis or edema. No calf tenderness. NEUROLOGICAL:AAOx3, but does have documented dementia. Motor and sensory grossly within normal limits. Normal speech. (Ben Vaz MD R1) A/P Assessment and Plan 71yo man with h/o C. 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 Also with blood in stool. Discharge Planning PT recommending PT at rehab. Medical team discussed with case management for possible placement. Patient denied from [place] rehab. Medical team reached out to patient's to discuss rehabilitation placement, and both her and the patient prefer discharge home with home health. Likely discharge this afternoon. (Ben Vaz MD R1) Attending Attestation Patient seen and examined. Case reviewed and discussed with the resident team. Agree with plan of care as discussed with me and documented in the resident note. (Yoana Rodriguez MD) Problem List: (1) Fever of unknown origin Status: Acute Plan: 102.2 fever overnight. Has diverticulosis. Has coughing with increased sputum production. Chest x-ray negative. Urinalysis pending. Blood cultures pending. Stool studies pending. -Blood cultures: Negative to date -Maximum temperature of 99.9 over the last 24 hours. -White blood count within normal limits UA with 11 white blood cells, negative nitrite, negative leukocyte esterase. Culture pending. (2) C. difficile diarrhea Status: Acute Plan: C.diff colitis after levaquin use for a COPD exacerbation. Allergic to vancomycin and Flagyl according to records. Last c.diff negative, symptoms improving. Infectious disease has been consulted for assistance with antibiotic management - PO Vancomycin 500 mg every 6 hours. Discussed with infectious disease for vancomycin taper of 250 mg every 6 hours for 7 days of discharge followed by 125 mg every 6 hours for 7 days. Then 125 mg twice a day for 7 days, and finally 125 mg daily for 7 days for completion. - Fidoxamicin, DC at discharge - Mesalamine, continued for 7 days at discharge - Added Metamucil BID for stool bulking - Probiotics: lactobacillus Heart healthy diet, advance as tolerated Monitor intake and output, record bowel movements - Monitor and replace electrolytes. PT for general weakness Zofran 4 mg IV push every 6 hours when necessary for nausea or vomiting (3) GI bleed Status: Acute Plan: GI bleeding, likely from c-diff inflammation. Hemoglobin low but stable. However, he does have a history of upper GI bleed with gastritis, required transfusion in the past. Sigmoidoscopy showed ulceration of colon, hemorrhoids, and diverticulosis. GI consulted, appreciate recommendations Monitor hemoglobin, stable Flexible sigmoidoscopy 04/28/70: Moderate diverticulosis in sigmoid colon was circumferential abnormal mucosa found in sigmoid colon. He continues was ulcerated and had loss of vascularity with superficial ulcers. Multiple biopsies performed. Retroflex views showed internal hemorrhoids and external hemorrhoids. Abdominal CTA: Celiac, SMA, and JASE patent. Recommend Colonoscopy in 3 months (4) Contact dermatitis Status: Acute Plan: Likely from diarrhea, dermatitis around anal area - Keep area dry and clean as much as possible - Barrier cream (5) COPD (chronic obstructive pulmonary disease) Status: Chronic Plan: History of COPD presents after incomplete treatment of COPD exacerbation. Mild cardiomegaly on x-ray. Albuterol neb 2.5 mg neb every 4 hours when necessary for shortness of breath or wheezing DuoNeb 1 neb every 4 hours when necessary for shortness of breath or wheezing Continue home medication of Symbicort 2 puffs inhaled twice a day Prednisone 50mg for 5 days, discontinued (6) HTN (hypertension) Status: Acute Plan: Continue diltiazem/Cardizem 240 mg BID Restart home lisinopril 40 mg daily Restart spironolactone 25 mg daily Clonidine prn BP >180/100 (7) FEN/PPX Status: Acute Plan: Fluids: PO fluids Electrolytes: Hypokalemic, monitor and replace Nutrition: Heart healthy diet DVT prophylaxis: Bilateral SCDs, defer anticoagulation due to + Hemoccult GI prophylaxis: Protonix 40mg daily Chronic medical problems: Continue home medications as below: [place] 325-10 mg 1 tab by mouth every 4 hours when necessary for pain 6-10 Aspirin 81 mg chew by mouth daily for cardiovascular disease Celexa 60 mg by mouth daily Flexeril 10 mg by mouth 3 times a day donepezil/Aricept 10 mg by mouth daily at bedtime Flonase 2 spray each nares twice a day Gabapentin 100 mg by mouth 3 times a day Latanoprost eyedrops 1 drop each eye daily at bedtime Ambien 5 million by mouth daily at bedtime when necessary for insomnia (Ben Vaz MD R1) Ben Vaz MD R1 Apr 30, 2017 10:49 Yoana Rodriguez MD May 01, 2017 08:07
[2017-04-30 12:00] VITALS: BP 154/70; PULSE 73; RESP 18; TEMP 99.2; O2SAT 97
[2017-04-30] MEDS ORDERED: VANC125C3 PO (12:29)
[2017-04-30] MEDS ORDERED: MESA1TAB2 PO (12:29)
[2017-04-30 12:40] LABS: HEMATOCRIT 23.8 % (39.0-51.0); MEAN CELL VOLUME 80.2 FL (80.0-100.0); MEAN CORPUSCULAR HGB CONC 32.4 % (32.0-36.0); PLATELET COUNT 412 TH/MM3 (150-450); RED BLOOD COUNT 2.96 MIL/MM3 (4.50-5.90); RED CELL DISTRIBUTION WIDTH 17.9 % (11.6-17.2); REVIEW FLAG FINAL; WHITE BLOOD COUNT 5.6 TH/MM3 (4.0-11.0)
[2017-04-30 12:52] LABS: BICARBONATE 23.9 MEQ/L (21.0-32.0); POTASSIUM 3.2 MEQ/L (3.5-5.1)
--- NOTE | 2017-04-30 12:59 | HHI.FF ---
Face to Face Verification Diagnosis: (1) C. difficile diarrhea (2) COPD (chronic obstructive pulmonary disease) (3) Chronic Medical Problems Physical Therapy Order: Evaluate and Treat, Improve ambulation, Strength and gait training Home Health Nursing Order: Medical education Signs/symptoms of disease process Medication education-adverse effect Wound care and dressing changes Nursing assessment with vital signs I have seen patient Jose GarciaSr on 04/30/17. My clinical findings support the need for the requested home health care services because: Ltd mobility - disease progression Patient has SOB Deconditioned w/ increased weakness Med compliance is questionable Limited ability to care for self Impaired cognition/judgement High risk of falls I certify that my clinical findings support that this patient is homebound because: Impaired cognitive ability/safety Hx COPD- exertion dyspnea/weakness Unsteady gait/balance Unsafe to leave home unassisted [id number] bed/chair Ben Vaz MD R1 Apr 30, 2017 12:59
--- NOTE | 2017-05-07 13:19 | HHI.DS ---
Discharge Summary Admission Date Apr 17, 2017 at 16:39 Discharge Date: Apr 30, 2017 Admitting Diagnosis dehydration,renal failure,gen weakness,colitis (1) Fever of unknown origin Diagnosis: Principal Plan: 102.2 fever overnight. Has diverticulosis. Has coughing with increased sputum production. Chest x-ray negative. Urinalysis pending. Blood cultures pending. Stool studies pending. -Blood cultures: Negative to date -Maximum temperature of 99.9 over the last 24 hours. -White blood count within normal limits UA with 11 white blood cells, negative nitrite, negative leukocyte esterase. Culture pending. (2) C. difficile diarrhea Diagnosis: Principal Plan: C.diff colitis after levaquin use for a COPD exacerbation. Allergic to vancomycin and Flagyl according to records. Last c.diff negative, symptoms improving. Infectious disease has been consulted for assistance with antibiotic management - PO Vancomycin 500 mg every 6 hours. Discussed with infectious disease for vancomycin taper of 250 mg every 6 hours for 7 days of discharge followed by 125 mg every 6 hours for 7 days. Then 125 mg twice a day for 7 days, and finally 125 mg daily for 7 days for completion. - Fidoxamicin, DC at discharge - Mesalamine, continued for 7 days at discharge - Added Metamucil BID for stool bulking - Probiotics: lactobacillus Heart healthy diet, advance as tolerated Monitor intake and output, record bowel movements - Monitor and replace electrolytes. PT for general weakness Zofran 4 mg IV push every 6 hours when necessary for nausea or vomiting (3) GI bleed Diagnosis: Principal Plan: GI bleeding, likely from c-diff inflammation. Hemoglobin low but stable. However, he does have a history of upper GI bleed with gastritis, required transfusion in the past. Sigmoidoscopy showed ulceration of colon, hemorrhoids, and diverticulosis. GI consulted, appreciate recommendations Monitor hemoglobin, stable Flexible sigmoidoscopy 04/28/70: Moderate diverticulosis in sigmoid colon was circumferential abnormal mucosa found in sigmoid colon. He continues was ulcerated and had loss of vascularity with superficial ulcers. Multiple biopsies performed. Retroflex views showed internal hemorrhoids and external hemorrhoids. Abdominal CTA: Celiac, SMA, and JASE patent. Recommend Colonoscopy in 3 months (4) Contact dermatitis Diagnosis: Principal Plan: Likely from diarrhea, dermatitis around anal area - Keep area dry and clean as much as possible - Barrier cream (5) COPD (chronic obstructive pulmonary disease) Diagnosis: Secondary Plan: History of COPD presents after incomplete treatment of COPD exacerbation. Mild cardiomegaly on x-ray. Albuterol neb 2.5 mg neb every 4 hours when necessary for shortness of breath or wheezing DuoNeb 1 neb every 4 hours when necessary for shortness of breath or wheezing Continue home medication of Symbicort 2 puffs inhaled twice a day Prednisone 50mg for 5 days, discontinued (6) HTN (hypertension) Diagnosis: Secondary Plan: Continue diltiazem/Cardizem 240 mg BID Restart home lisinopril 40 mg daily Restart spironolactone 25 mg daily Clonidine prn BP >180/100 (7) FEN/PPX Diagnosis: Principal Plan: Fluids: PO fluids Electrolytes: Hypokalemic, monitor and replace Nutrition: Heart healthy diet DVT prophylaxis: Bilateral SCDs, defer anticoagulation due to + Hemoccult GI prophylaxis: Protonix 40mg daily Chronic medical problems: Continue home medications as below: Marathon 325-10 mg 1 tab by mouth every 4 hours when necessary for pain 6-10 Aspirin 81 mg chew by mouth daily for cardiovascular disease Celexa 60 mg by mouth daily Flexeril 10 mg by mouth 3 times a day donepezil/Aricept 10 mg by mouth daily at bedtime Flonase 2 spray each nares twice a day Gabapentin 100 mg by mouth 3 times a day Latanoprost eyedrops 1 drop each eye daily at bedtime Ambien 5 million by mouth daily at bedtime when necessary for insomnia Brief History 71yo man with h/o C. difficile colitis twice in the past, COPD, HTN, mild dementia p/w 5 days of diarrhea. He is accompanied by his who provides most of the history. Patient was recently diagnosed with COPD exacerbation and was prescribed a 10 day course of Levaquin (and prednisone) last Thursday, . On Friday 04/13, patient started to have loose, mushy bowel movements, which has since progressed to watery, malodorous bowel movements. He was having about 10 bowel movements every 24 hours. They deny any blood or black coloration to his stool. Patient was taking the Levaquin as prescribed until Thursday, 04/15, when he stopped because of the associated diarrhea. That same day, Thursday, pt was seen by [facility]. The doctor there prescribed Welchol 625mg 1 tab bid. He only took two doses. Pt is scheduled for repeat endoscopy this coming April 29. They report pt has been diagnosed with C diff twice in past. The last time was in 2003 in [place]. Pt was taking Bactrim for 10 days with worsening diarrhea. He was then prescribed Cipro, which reportedly cleared up the c diff infection. His reports that he is "deadly allergic to Flagyl." Of note, pt was hospitalized here from January 10 to February 17 for Escherichia coli bacteremia with some time spent in the ICU and then was diagnosed with septic arthritis treated with Zyvox (linezolid). After discharge from rehabilitation, patient was home for 13 days, then came back on March 02 for "a touch of pneumonia," which was treated with Levaquin and steroids. PE at Discharge GENERAL: 71-year-old male sitting up in bed in no acute distress. SKIN: No rashes, ecchymoses or lesions. Per nursing report, anal erythema improving with application of barrier cream. HEENT: Atraumatic, normocephalic with EOMI. MMM. No JVD or LAD appreciated. No rhinorrhea. CARDIOVASCULAR: Regular rate and rhythm without murmurs, gallops, or rubs. RESPIRATORY: Mild wheezing diffusely. Equal breath sounds bilaterally. No increase in respiratory effort. GASTROINTESTINAL: Abdomen soft. Nontender to palpation in all 4 quadrants. No guarding or rebound tenderness. Normoactive bowel sounds. No masses appreciated MUSCULOSKELETAL: Extremities without cyanosis or edema. No calf tenderness. NEUROLOGICAL:AAOx3, but does have documented dementia. Motor and sensory grossly within normal limits. Normal speech. Hospital Course Patient was admitted for C. difficile colitis, however was not initially started on antibiotics due to reported severe allergies to all medications. Upon further discussion patient was not allergic to vancomycin, and was started on vancomycin by mouth with infectious disease consulted. GI was consulted due to continued symptoms and evaluation of Hemoccult-positive stool.. Per GI, for fidoxamicin, mesalamine, and probiotics started on hospital day 5. GI also recommended colonoscopy, however patient declined, but then on hospital day 11 agreed and consented to a sigmoidoscopy that showed moderate diverticulosis with circumferential abnormal mucosa in the sigmoid colon. Biopsies were taken and are pending. On hospital day 13 patient requested discharge home with home health as his bowel movements have improved and decreased in frequency. He was encouraged to be discharged to rehabilitation center for continued physical therapy, however the patient and his both refused. They both verbally understood the risks involved and voiced understanding standing, however were adamant that they both wished for him to be discharged home with home health. He was discharged home on probiotics, mesalamine, fiber, and vancomycin by mouth. The vancomycin will be tapered over the next 4 weeks per infectious diseases instructions. He'll follow-up with gastroenterology and his PCP within one week. Pt Condition on Discharge: Stable Discharge Disposition: Disch w/ Home Health Serv Discharge Instructions DIET: Follow Instructions for: Heart Healthy Diet Activities you can perform: Weight Bearing as Juanito Other Activity Instructions: COntinue to work with PT regarding strength training. Walk with use of Ben Yi MD R1 May 07, 2017 13:19
== END 2017-04-30 14:14 | disposition home health service (06) | DRG 372 ==
LOC: NEPC 13:19 → NEDA 16:39 → N04A 18:42
PROVIDERS: ADMIT Family Medicine; ATTEND Family Medicine
PROC: 0DBN8ZX Excision of Sigmoid Colon, Via Natural or Artificial Opening Endoscopic, Diagnostic (ICD-10-PCS; principal; 2017-04-28 12:55)
DX: A04.7 Enterocolitis due to Clostridium difficile (principal); N17.9 Acute kidney failure, unspecified; B37.0 Candidal stomatitis; K63.3 Ulcer of intestine; J44.9 Chronic obstructive pulmonary disease, unspecified; E86.0 Dehydration; K92.1 Melena; F03.90 Unspecified dementia, unspecified severity, without behavioral disturbance, psychotic disturbance, mood disturbance, and anxiety; I10 Essential (primary) hypertension; R53.1 Weakness; D64.9 Anemia, unspecified; H40.9 Unspecified glaucoma; H91.93 Unspecified hearing loss, bilateral; Z86.73 Personal history of transient ischemic attack (TIA), and cerebral infarction without residual deficits; M48.00 Spinal stenosis, site unspecified; G89.29 Other chronic pain; M25.552 Pain in left hip; G57.93 Unspecified mononeuropathy of bilateral lower limbs; Z85.828 Personal history of other malignant neoplasm of skin; Z79.52 Long term (current) use of systemic steroids; Z87.891 Personal history of nicotine dependence; F10.21 Alcohol dependence, in remission; Z79.82 Long term (current) use of aspirin; Z88.1 Allergy status to other antibiotic agents; K57.30 Diverticulosis of large intestine without perforation or abscess without bleeding; K64.4 Residual hemorrhoidal skin tags; K64.8 Other hemorrhoids; L25.9 Unspecified contact dermatitis, unspecified cause; E87.6 Hypokalemia
CPT/HCPCS: 71010; 71020; 73030; 74174; 74177; 80048; 80053; 81001; 82272; 83605; 83690; 83735; 84132; 84155; 85007; 85014; 85018; 85025; 85027; 87040; 87086; 87205; 87328; 87329; 87493; 88305; 93005; 94640; 94664; 96360; J2930; J3480; J7030; J7512; Q9963; Q9967

== ENCOUNTER 2017-05-11 13:37 | Emergency (ER) | payer MEDICARE, OTHER ==
[~2017-05-11] VITALS: Ht 180.3 cm; Wt 79.0 kg
[~2017-05-11 13:37] MED LIST changes: -AZEL1SPR2 EACH NARE; -CARV6.252 PO; -FERR325T PO; +GABA100C4 PO; -GABA400C5 PO; +KONS100P3 PO; -LEVO750T3 PO; +MESA1TAB2 PO; +SENS113T TOPICAL; +VANC125C3 PO
[2017-05-11 14:25] VITALS: BP 200/84; PULSE 74; RESP 20; TEMP 98.3; O2SAT 99
--- NOTE | 2017-05-11 14:57 | PD ---
Physical Exam Time Seen by Provider: 14:55 Narrative 71yo M sent by Dr. Núñez for low Hg 7.1. +bloody stool. +diverticulitis. Patient seen in triage. Awaiting bed placement. VS reviewed. Data Data Last Documented VS Vital Signs Date Time Temp Pulse Resp B/P Pulse Ox O2 Delivery O2 Flow Rate FiO2 05/11/17 14:25 98.3 74 20 200/84 99 Room Air MDM Supervised Visit with MECCA: Esperanza Payne May 11, 2017 14:57
[2017-05-11] MEDS ORDERED: SODIUM CHLORIDE 0.9% FLUSH 10 ML FLUSH IV FLUSH PRN (15:30)
--- NOTE | 2017-05-11 15:54 | PD ---
HPI Chief Complaint: Abnormal Results Time Seen by Provider: 15:04 Travel History International Travel<30 days: No Contact w/Intl Traveler<30days: No Traveled to known affect area: No History of Present Illness HPI Patient is a 71-year-old male who was sent to the emergency room by his primary care doctor for admission to the hospital as he is anemic with a Hbg of 7.1 ( drawn on 05/10/17). Patient reports that he was recently admitted to the hospital for C. difficile colitis, patient is currently on vancomycin with completion date of May 21, 2017. Patient reports that he had a prolonged inpatient stay recently, as he was admitted on April 17 and was discharged on April 30 for C. difficile colitis. During his admission, Adriel Senior performed a sigmoidscopy which showed moderate diverticulosis in the sigmoid colon as well as internal hemorrhoids. Sigmoid colon mucosal was ulcerated and had loss of vascularity and superficial ulcers. Patient was told that he would require a formal colonoscopy in 3 months. Patient with no complaints at this time except for generalized weakness. Patient reports that he has history of anemia secondary to GI bleed, patient does admit to having blood in his stools. PFSH Past Medical History Arthritis: Yes Asthma: No Autoimmune Disease: No Anxiety: No Depression: Yes Heart Rhythm Problems: No Cancer: No Cardiovascular Problems: Yes High Cholesterol: No Chemotherapy: No Chest Pain: No Congestive Heart Failure: No COPD: Yes Cerebrovascular Accident: Yes Dementia: Yes (MILD ) Diabetes: No Diminished Hearing: Yes (BILATERAL HEARING AIDS) Endocrine: No Gastrointestinal Disorders: Yes GERD: No Genitourinary: No Headaches: No Hiatal Hernia: No Heparin Induced Thrombocytopen: No Hypertension: Yes Immune Disorder: No Implanted Vascular Access Dvce: Yes Kidney Stones: Yes Musculoskeletal: No Neurologic: No Psychiatric: No Reproductive: No Respiratory: Yes Migraines: No Pancreatitis: Yes Radiation Therapy: No Renal Failure: No Seizures: No Sickle Cell Disease: No Sleep Apnea: No Thyroid Disease: No Ulcer: No Past Surgical History Abdominal Surgery: Yes (appendectomy) AICD: No Appendectomy: Yes Arteriovenous Shunt: No Body Medical Devices: penile implant Cardiac Surgery: Yes (right endarectomy) Ear Surgery: No Endocrine Surgery: No Eye Surgery: Yes (L/R EYE CATARACT REMOVAL ) Genitourinary Surgery: Yes (lithotripsy) Gynecologic Surgery: No Insulin Pump: No Joint Replacement: No Neurologic Surgery: No Oral Surgery: Yes (mouth abscess ) 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 Doubt if true allergy. Penicillin (Verified Allergy, Severe, Anaphylaxis, 04/10/17) Sulfa (Verified Allergy, Severe, Anaphylaxis, 04/10/17) Erythromycin (Verified Allergy, Intermediate, Rash, 04/18/17) MRI PRECAUTION (Verified Adverse Reaction, Severe, BLADDER STIMULATOR, ) BRAIN ONLY ON RECEIVE ONLY COIL, P.O. 01/11/17, DML *MDRO Multi-Drug Resistant Organism (Verified Adverse Reaction, Unknown, MRSA, 04/10/17) MRSA PCR (nares) POSITIVE - 01/11/17 Demerol (Verified Adverse Reaction, Unknown, Psychosis, 04/10/17) Morphine (Verified Adverse Reaction, Unknown, Psychosis, 04/10/17) Percocet (Verified Adverse Reaction, Unknown, Psychosis, 04/10/17) Uncoded Allergies: surgical tape (Allergy, Severe, 12/15/13) Reported Meds & Prescriptions Reported Meds & Active Scripts Active Mesalamine DR (Mesalamine) 800 Mg Tab 1,600 Mg PO Q8HR 7 Days Vancomycin (Vancomycin HCl) 125 Mg Cap 250 Mg PO QID Take 250mg po QID x7 days then take 125mg po QID x7 days then take 125mg po BID x7 days then take 125mg po daily x7 days Acidophilus/l-Sporogenes (Lactobacillus Acidophilus) 1 Tab Tab 1 Tab PO TID Sensi-Care Protective Bar 49-15 % (Petrolatum/Zinc Oxide) 120 Applic/120 Gm Oin 1 Applic TOPICAL DAILY Konsyl (Psyllium Hydrophilic Mucilloid) 100 % Pow 1 Pkt PO BID Albuterol Neb (Albuterol Sulfate) 2.5 Mg/3 Ml Neb 2.5 Mg NEB Q4HR NEB PRN Prednisone 50 Mg Tab 50 Mg PO DAILY Fluticasone Nasal Strunk 50 Mcg/Act Naspr 100 Mcg EACH NARE BID 50 mcg/spray Advair Diskus Inh (Fluticasone-Salmeterol Inh) 500-50 Mcg/Blist Aer 1 Puff INH BID Rinse mouth after use. Flexeril (Cyclobenzaprine HCl) 10 Mg Tab 10 Mg PO TID Spironolactone 25 Mg Tab 25 Mg PO DAILY Travatan Z Opth Drops (Travoprost) 0.004 % Soln 1 Drop EACH EYE HS Donepezil 10 Mg Tab 10 Mg PO HS Citalopram (Citalopram Hydrobromide) 40 Mg Tab 60 Mg PO DAILY Please take 1.5 pills daily Atorvastatin (Atorvastatin Calcium) 40 Mg Tab 40 Mg PO HS Hydrocodone-Acetaminophen 10-325 mg Tab 1 Tab PO Q4H PRN Ambien (Zolpidem Tartrate) 5 Mg Tab 5 Mg PO HS PRN Lisinopril 40 Mg Tab 40 Mg PO HS Aspirin 81 Low Dose (Aspirin) 81 Mg Chew 81 Mg CHEW DAILY Reported Gabapentin 100 Mg Cap 100 Mg PO TID Combivent Respimat Inh (Ipratropium-Albuterol Inh) 20-100 Fci/Act Aero 1 Puff INH BID Diltiazem CD 24 HR 240 Mg Caper 240 Mg PO BID Review of Systems General / Constitutional: No: Fever Eyes: No: Visual changes HENT: No: Headaches Cardiovascular: No: Chest Pain or Discomfort Respiratory: No: Shortness of Breath Gastrointestinal: Positive: Diarrhea, No: Nausea, Vomiting, Abdominal Pain Genitourinary: No: Dysuria Musculoskeletal: No: Pain Skin: No Rash Neurologic: Positive: Weakness Psychiatric: No: Depression Endocrine: No: Polydipsia Hematologic/Lymphatic: No: Easy Bruising Physical Exam Narrative GENERAL: mild distress SKIN: Focused skin assessment warm/dry. Patient pale appearing HEAD: Atraumatic. Normocephalic. EYES: Pupils equal and round. No scleral icterus. No injection or drainage. ENT: No nasal bleeding or discharge. Mucous membranes pink and moist. NECK: Trachea midline. No JVD. CARDIOVASCULAR: Regular rate and rhythm. No murmur appreciated. RESPIRATORY: No accessory muscle use. Clear to auscultation. Breath sounds equal bilaterally. GASTROINTESTINAL: Abdomen soft, non-tender, nondistended. Hepatic and splenic margins not palpable. Patient with dark stool - heme positive MUSCULOSKELETAL: No obvious deformities. No clubbing. No cyanosis. No edema. NEUROLOGICAL: Awake and alert. No obvious cranial nerve deficits. Motor grossly within normal limits. Normal speech. PSYCHIATRIC: Appropriate mood and affect; insight and judgment normal. Data Data Last Documented VS Vital Signs Date Time Temp Pulse Resp B/P Pulse Ox O2 Delivery O2 Flow Rate FiO2 05/11/17 16:38 70 16 180/79 98 Room Air 05/11/17 14:25 98.3 Orders Type And Screen (05/11/17 15:30) Basic Metabolic Panel (Bmp) (05/11/17 15:30) Complete Blood Count With Diff (05/11/17 15:30) Prothrombin Time / Inr (Pt) (05/11/17 15:30) Act Partial Throm Time (Ptt) (05/11/17 15:30) Iv Access Insert/Monitor (05/11/17 15:30) Sodium Chloride 0.9% Flush (Ns Flush) (05/11/17 15:30) Equip, Isolation Cart (05/11/17 15:37) Isolation (05/11/17 15:37) Labs Laboratory Tests Test 05/11/17 15:55 White Blood Count 9.8 TH/MM3 Red Blood Count 3.46 MIL/MM3 Hemoglobin 8.8 GM/DL Hematocrit 27.2 % Mean Corpuscular Volume 78.6 FL Mean Corpuscular Hemoglobin 25.5 PG Mean Corpuscular Hemoglobin 32.4 % Concent Red Cell Distribution Width 18.5 % Platelet Count 587 TH/MM3 Mean Platelet Volume 6.1 FL Neutrophils (%) (Auto) 73.5 % Lymphocytes (%) (Auto) 13.7 % Monocytes (%) (Auto) 10.5 % Eosinophils (%) (Auto) 1.8 % Basophils (%) (Auto) 0.5 % Neutrophils # (Auto) 7.2 TH/MM3 Lymphocytes # (Auto) 1.3 TH/MM3 Monocytes # (Auto) 1.0 TH/MM3 Eosinophils # (Auto) 0.2 TH/MM3 Basophils # (Auto) 0.0 TH/MM3 CBC Comment DIFF FINAL Differential Comment Prothrombin Time 10.8 SEC Prothromb Time International 1.0 RATIO Ratio Activated Partial 31.7 SEC Thromboplast Time Sodium Level 141 MEQ/L Potassium Level 3.4 MEQ/L Chloride Level 101 MEQ/L Carbon Dioxide Level 33.0 MEQ/L Anion Gap 7 MEQ/L Blood Urea Nitrogen 8 MG/DL Creatinine 0.70 MG/DL Estimat Glomerular Filtration 111 ML/MIN Rate Random Glucose 101 MG/DL Calcium Level 8.5 MG/DL Blood Type A POSITIVE Antibody Screen NEGATIVE MDM Medical Decision Making Medical Screen Exam Complete: Yes Emergency Medical Condition: Yes Interpretation(s) Vital Signs Date Time Temp Pulse Resp B/P Pulse Ox O2 Delivery O2 Flow Rate FiO2 05/11/17 16:08 70 16 204/90 99 Room Air 05/11/17 14:25 98.3 74 20 200/84 99 Room Air Differential Diagnosis Anemia, GI bleed, electrolyte abnormality, C. difficile colitis Narrative Course Patient is a 71 year old male who was sent to the ER by his pcp for treatment of hemoglobin of 7.1. Patient reports that he has history of GI bleed in the past, is currently being treated with vancomycin for C. difficile colitis, reports that he has been having diarrhea which has improved. Patient reports that he has noticed bloody stools, patient here for blood transfusion admission to the hospital. Labwork including type and screen ordered. CBC & BMP Diagram 05/11/17 15:55 hgb 8.8. patient will be discharged to home with outpatient follow up. will hold on blood transfusion as hgb 8.8 is at baseline for him. patient will follow up with pcp and will return to ER as needed. patient will also follow up with GI as he has known GI bleed and understands need for follow up as outpatient. signs and symptoms of when to return to ER was reviewed with patient in detail Diagnosis Primary Impression: Anemia Additional Impressions: GI bleed Hypokalemia Patient Instructions: General Instructions Additional Instructions: Please follow-up with your inspector fuel hose as scheduled Return to the emergency room as needed Please follow-up with your primary care doctor for repeat lab work Please take all medications as prescribed Disposition: 01 DISCHARGE HOME Condition: Stable Rosi Ramos DO May 11, 2017 15:54
[2017-05-11 16:08] VITALS: BP 204/90; PULSE 70; RESP 16; O2SAT 99
[2017-05-11 16:16] LABS: AUTOMATED NEUTROPHIL # 7.2 TH/MM3 (1.8-7.7); BASOPHIL % 0.5 % (0.0-2.0); EOSINOPHIL # 0.2 TH/MM3 (0-0.4); EOSINOPHIL % 1.8 % (0.0-4.0); HEMATOCRIT 27.2 % (39.0-51.0); HEMO FLAGS DIFF FINAL; LYMPH % 13.7 % (9.0-44.0); LYMPHOCYTE # 1.3 TH/MM3 (1.0-4.8); MEAN CELL VOLUME 78.6 FL (80.0-100.0); MEAN CORPUSCULAR HEMOGLOBIN 25.5 PG (27.0-34.0); MEAN CORPUSCULAR HGB CONC 32.4 % (32.0-36.0); MONO % 10.5 % (0.0-8.0); NEUT % 73.5 % (16.0-70.0); PLATELET COUNT 587 TH/MM3 (150-450); RED BLOOD COUNT 3.46 MIL/MM3 (4.50-5.90); RED CELL DISTRIBUTION WIDTH 18.5 % (11.6-17.2); WHITE BLOOD COUNT 9.8 TH/MM3 (4.0-11.0)
[2017-05-11 16:21] LABS: APTT (PATIENT) 31.7 SEC (24.3-30.1); PROTHROMBIN TIME - PATIENT 10.8 SEC (9.8-11.6)
[2017-05-11 16:37] LABS: POTASSIUM 3.4 MEQ/L (3.5-5.1)
[2017-05-11 16:38] VITALS: BP 180/79; PULSE 70; RESP 16; O2SAT 98
[2017-05-11] MEDS ORDERED: POTASSIUM CHLORIDE 10 MEQ CONTROLLED RELEASE TAB PO ONE (18:30)
[2017-05-11] MEDS ORDERED: CYCL1TAB29 PO (18:36)
[2017-05-11] MEDS ORDERED: MULT-142 PO (18:36)
[2017-05-11] MEDS ORDERED: MAPA325T PO (18:36)
[2017-05-11 18:38] VITALS: BP 182/75
[2017-05-11] MEDS ORDERED: ZINC220T PO (18:53)
[2017-05-11] MEDS ORDERED: ENEMENE3 PR (18:53)
[2017-05-11] MEDS ORDERED: DULC10SU3 RECTAL (18:53)
[2017-05-11] MEDS ORDERED: MAGNSOL2 PO (18:53)
[2017-05-11] MEDS ORDERED: ASCO500T PO (18:57)
[2017-05-11] MEDS ORDERED: SENS113T TOPICAL (19:10)
[2017-05-11] MEDS ORDERED: VANC125S PO (19:14)
[2017-05-11] MEDS ORDERED: MILKSUS PO (19:16)
== END 2017-05-11 18:41 | disposition home or self-care (01) ==
LOC: NEPE 13:37
DX: D64.9 Anemia, unspecified (principal); K92.2 Gastrointestinal hemorrhage, unspecified; E87.6 Hypokalemia; I10 Essential (primary) hypertension; J44.9 Chronic obstructive pulmonary disease, unspecified; F32.9 Major depressive disorder, single episode, unspecified; F03.90 Unspecified dementia, unspecified severity, without behavioral disturbance, psychotic disturbance, mood disturbance, and anxiety; K85.90 Acute pancreatitis without necrosis or infection, unspecified; Z86.73 Personal history of transient ischemic attack (TIA), and cerebral infarction without residual deficits
CPT/HCPCS: 80048; 85025; 85610; 85730; 86850; 86900; 86901; 99283

== ENCOUNTER 2017-05-28 16:53 | Inpatient (IN) | payer MEDICARE, OTHER ==
[~2017-05-28] VITALS: Ht 180.3 cm; Wt 75.9 kg
[2017-05-28] VITALS (7 sets, daily range): BP systolic 110–140; BP diastolic 57–75; PULSE 46–61; RESP 18–20; TEMP 98.3–98.6; O2SAT 94–100
[~2017-05-28 16:53] MED LIST changes: -AMBI5TAB PO; +ASCO500T PO; +DULC10SU3 RECTAL; +ENEMENE3 PR; -HYDR-3583 PO; +KETO60IN6 IM; +MAGNSOL2 PO; +MAPA325T PO; -MESA1TAB2 PO; +MILKSUS PO; +MULT-142 PO; -PRED50 PO; -VANC125C3 PO; +VANC125S PO; +ZINC220T PO
--- NOTE | 2017-05-28 17:36 | PD ---
Physical Exam Time Seen by Provider: 17:35 Narrative 71 y/o male here for evaluation of a hemoglobin of 5.3. he is experiencing some dizziness. Vital signs reviewed. Seen at triage desk. Awaiting bed placement. Data Data Last Documented VS Vital Signs Date Time Temp Pulse Resp B/P Pulse Ox O2 Delivery O2 Flow Rate FiO2 05/28/17 17:06 98.5 61 18 110/61 95 Room Air Orders Type And Screen (05/28/17 17:37) Complete Blood Count With Diff (05/28/17 17:37) Comprehensive Metabolic Panel (05/28/17 17:37) Prothrombin Time / Inr (Pt) (05/28/17 17:37) Act Partial Throm Time (Ptt) (05/28/17 17:37) MDM Medical Record Reviewed: Yes Supervised Visit with MECCA: Iam Copeland May 28, 2017 17:36
[2017-05-28 18:34] LABS: AUTOMATED NEUTROPHIL # 7.3 TH/MM3 (1.8-7.7); BASOPHIL % 0.4 % (0.0-2.0); EOSINOPHIL # 0.5 TH/MM3 (0-0.4); EOSINOPHIL % 3.7 % (0.0-4.0); HEMATOCRIT 22.4 % (39.0-51.0); LYMPHOCYTE # 2.6 TH/MM3 (1.0-4.8); MEAN CELL VOLUME 79.1 FL (80.0-100.0); MEAN CORPUSCULAR HEMOGLOBIN 24.2 PG (27.0-34.0); MEAN CORPUSCULAR HGB CONC 30.6 % (32.0-36.0); MONO % 16.1 % (0.0-8.0); NEUT % 58.8 % (16.0-70.0); PLATELET COUNT 553 TH/MM3 (150-450); RED BLOOD COUNT 2.83 MIL/MM3 (4.50-5.90); RED CELL DISTRIBUTION WIDTH 17.7 % (11.6-17.2); WHITE BLOOD COUNT 12.4 TH/MM3 (4.0-11.0)
[2017-05-28 18:43] LABS: HEMO FLAGS AUTO DIFF
[2017-05-28 18:51] LABS: ANION GAP 9 MEQ/L (5-15); AST (GOT) 45 U/L (15-37); BLOOD UREA NITROGEN 41 MG/DL (7-18); CHLORIDE 96 MEQ/L (98-107); GLOMERULAR FILTRATION RATE 41 ML/MIN (>89); SODIUM (NA) 131 MEQ/L (136-145)
[2017-05-28 18:52] LABS: ALKALINE PHOSPHATASE 96 U/L (45-117); ALT (GPT) 29 U/L (12-78); TOTAL BILIRUBIN ADULT 0.3 MG/DL (0.2-1.0)
[2017-05-28 18:53] LABS: POTASSIUM 5.3 MEQ/L (3.5-5.1)
--- NOTE | 2017-05-28 18:53 | PD ---
HPI Chief Complaint: Abnormal Results Time Seen by Provider: 18:29 Travel History International Travel<30 days: No Contact w/Intl Traveler<30days: No Traveled to known affect area: No History of Present Illness HPI 71-year-old male came to the emergency room sent by his primary care for weakness, tiredness, hemoglobin of 5.8 and hypotension at the doctor's office. Patient has had a long protracted history over the past 6 months with pneumonia , Escherichia coli sepsis, C. difficile colitis and he has been in rehabilitation. He has started feeling like this for past 24 hours. He has been coughing but no fever. Vital signs were otherwise stable. He looks tired and in moderate distress. His is giving most of the history. Patient denies of any pain. PFS Past Medical History Narrative Medical List of his past medical, surgical, social and family history reviewed from the nursing note. Hx Anticoagulant Therapy: Yes (81 MG ASA) Arthritis: Yes Asthma: No Autoimmune Disease: No Anxiety: No Depression: Yes Heart Rhythm Problems: No Cancer: No Cardiovascular Problems: Yes High Cholesterol: No Chemotherapy: No Chest Pain: No Congestive Heart Failure: No COPD: Yes Cerebrovascular Accident: Yes Dementia: Yes (MILD ) Diabetes: No Diminished Hearing: Yes (BILATERAL HEARING AIDS) Endocrine: No Gastrointestinal Disorders: Yes GERD: No Genitourinary: No Headaches: No Hiatal Hernia: No Heparin Induced Thrombocytopen: No Hypertension: Yes Immune Disorder: No Implanted Vascular Access Dvce: Yes Kidney Stones: Yes Musculoskeletal: No Neurologic: No Psychiatric: No Reproductive: No Respiratory: Yes (COPD) Migraines: No Pancreatitis: Yes Radiation Therapy: No Renal Failure: No Seizures: No Sickle Cell Disease: No Sleep Apnea: No Thyroid Disease: No Ulcer: No Influenza Vaccination: No Past Surgical History Abdominal Surgery: Yes (appendectomy) AICD: No Appendectomy: Yes Arteriovenous Shunt: No Body Medical Devices: penile implant Cardiac Surgery: Yes (right endarectomy) Ear Surgery: No Endocrine Surgery: No Eye Surgery: Yes (L/R EYE CATARACT REMOVAL ) Genitourinary Surgery: Yes (lithotripsy) Gynecologic Surgery: No Insulin Pump: No Joint Replacement: No Neurologic Surgery: No Oral Surgery: Yes (mouth abscess ) Pacemaker: Yes (BLADDER STIMULATOR) Thoracic Surgery: No Other Surgery: Yes Social History Alcohol Use: No Tobacco Use: No Substance Use: No Allergies-Medications (Allergen,Severity, Reaction): Coded Allergies: Bactrim (Verified Allergy, Severe, Anaphylaxis, 05/28/17) Flagyl (Verified Allergy, Severe, Fever, colitis, 05/28/17) While being treated for Cdiff. Doubt if true allergy. Penicillin (Verified Allergy, Severe, Anaphylaxis, 05/28/17) Sulfa (Verified Allergy, Severe, Anaphylaxis, 05/28/17) Erythromycin (Verified Allergy, Intermediate, Rash, 05/28/17) MRI PRECAUTION (Verified Adverse Reaction, Severe, BLADDER STIMULATOR, ) BRAIN ONLY ON RECEIVE ONLY COIL, P.O. 01/11/17, DML *MDRO Multi-Drug Resistant Organism (Verified Adverse Reaction, Unknown, MRSA, 05/28/17) MRSA PCR (nares) POSITIVE - 01/11/17 Demerol (Verified Adverse Reaction, Unknown, Psychosis, 05/28/17) Morphine (Verified Adverse Reaction, Unknown, Psychosis, 05/28/17) Percocet (Verified Adverse Reaction, Unknown, Psychosis, 05/28/17) Uncoded Allergies: surgical tape (Allergy, Severe, 12/15/13) Comments List of his allergies reviewed from the nursing note. Reported Meds & Prescriptions Reported Meds & Active Scripts Active Lactobacillus Acidophilus 1 Tab Tab 1 Tab PO TIDAC Advair Diskus Inh (Fluticasone-Salmeterol Inh) 500-50 Mcg/Blist Aer 1 Puff INH BID Rinse mouth after use. Spironolactone 25 Mg Tab 25 Mg PO DAILY Travatan Z Opth Drops (Travoprost) 0.004 % Soln 1 Drop EACH EYE HS Donepezil 10 Mg Tab 10 Mg PO HS Citalopram (Citalopram Hydrobromide) 40 Mg Tab 60 Mg PO DAILY Please take 1.5 pills daily Atorvastatin (Atorvastatin Calcium) 40 Mg Tab 40 Mg PO HS Lisinopril 40 Mg Tab 40 Mg PO HS Aspirin 81 Low Dose (Aspirin) 81 Mg Chew 81 Mg CHEW DAILY Reported Diclofenac Sodium DR (Diclofenac Sodium) 75 Mg Tabdr 75 Mg PO DAILY Flexeril (Cyclobenzaprine HCl) 10 Mg Tab 10 Mg PO Q8HR Multi Vitamin and Mineral (Multiple Vitamins W/ Minerals) 1 Tab Tab 1 Tab PO DAILY Mapap (Acetaminophen) 325 Mg Tab 650 Mg PO Q4HR PRN Gabapentin 100 Mg Cap 100 Mg PO TID Combivent Respimat Inh (Ipratropium-Albuterol Inh) 20-100 Usp/Act Aero 1 Puff INH BID Diltiazem CD 24 HR 240 Mg Caper 240 Mg PO BID Narrative Medication List of his home medications reviewed from the nursing note. Review of Systems Except as stated in HPI: all other systems reviewed are Neg Physical Exam Narrative GENERAL: Lethargic, answers questions appropriately but looks tired, moderate distress SKIN: Focused skin assessment warm/dry. Pallor HEAD: Atraumatic. Normocephalic. EYES: Pupils equal and round. No scleral icterus. No injection or drainage. ENT: No nasal bleeding or discharge. Mucous membranes pink and moist. NECK: Trachea midline. No JVD. CARDIOVASCULAR: Regular rate and rhythm. No murmur appreciated. RESPIRATORY: No accessory muscle use. Coarse breath sounds bilaterally GASTROINTESTINAL: Abdomen soft, non-tender, nondistended. Hepatic and splenic margins not palpable. MUSCULOSKELETAL: No obvious deformities. No clubbing. No cyanosis. No edema. NEUROLOGICAL: Lethargic but answers questions appropriately. No obvious cranial nerve deficits. Motor grossly within normal limits. Normal speech. PSYCHIATRIC: Appropriate mood and affect; insight and judgment normal. Data Data Last Documented VS Vital Signs Date Time Temp Pulse Resp B/P Pulse Ox O2 Delivery O2 Flow Rate FiO2 05/28/17 18:32 56 18 140/67 Room Air 05/28/17 17:06 98.5 95 Orders Type And Screen (05/28/17 17:37) Complete Blood Count With Diff (05/28/17 17:37) Comprehensive Metabolic Panel (05/28/17 17:37) Prothrombin Time / Inr (Pt) (05/28/17 17:37) Act Partial Throm Time (Ptt) (05/28/17 17:37) Red Blood Cells (Rbc) (05/28/17 18:48) Blood Product Administration .UPON TRANSFUSION (05/28/17 18:48) Sodium Chlor 0.9% 250 Ml Inj (Ns 250 Ml (05/28/17 19:00) Admit Order (Ed Use Only) (05/28/17 19:28) Labs Laboratory Tests Test 05/28/17 05/28/17 18:10 19:08 White Blood Count 12.4 TH/MM3 Red Blood Count 2.83 MIL/MM3 Hemoglobin 6.8 GM/DL Hematocrit 22.4 % Mean Corpuscular Volume 79.1 FL Mean Corpuscular Hemoglobin 24.2 PG Mean Corpuscular Hemoglobin 30.6 % Concent Red Cell Distribution Width 17.7 % Platelet Count 553 TH/MM3 Mean Platelet Volume 6.7 FL Neutrophils (%) (Auto) 58.8 % Lymphocytes (%) (Auto) 21.0 % Monocytes (%) (Auto) 16.1 % Eosinophils (%) (Auto) 3.7 % Basophils (%) (Auto) 0.4 % Neutrophils # (Auto) 7.3 TH/MM3 Lymphocytes # (Auto) 2.6 TH/MM3 Monocytes # (Auto) 2.0 TH/MM3 Eosinophils # (Auto) 0.5 TH/MM3 Basophils # (Auto) 0.0 TH/MM3 CBC Comment AUTO DIFF Differential Comment AUTO DIFF CONFIRMED Platelet Estimate HIGH Platelet Morphology Comment NORMAL Ovalocytes 1+ Keratocytes OCC Prothrombin Time 10.7 SEC Prothromb Time International 1.0 RATIO Ratio Activated Partial 26.1 SEC Thromboplast Time Sodium Level 131 MEQ/L Potassium Level 5.3 MEQ/L Chloride Level 96 MEQ/L Carbon Dioxide Level 26.0 MEQ/L Anion Gap 9 MEQ/L Blood Urea Nitrogen 41 MG/DL Creatinine 1.66 MG/DL Estimat Glomerular Filtration 41 ML/MIN Rate Random Glucose 99 MG/DL Calcium Level 9.3 MG/DL Total Bilirubin 0.3 MG/DL Aspartate Amino Transf 45 U/L (AST/SGOT) Alanine Aminotransferase 29 U/L (ALT/SGPT) Alkaline Phosphatase 96 U/L Total Protein 7.2 GM/DL Albumin 2.0 GM/DL Blood Type A POSITIVE Antibody Screen NEGATIVE Crossmatch Leukocyte-Reduced Red Blood Cells Blood Bank Comment [facility] Medical Decision Making Medical Screen Exam Complete: Yes Emergency Medical Condition: Yes Medical Record Reviewed: Yes Differential Diagnosis Symptomatic anemia Narrative Course 7:18 PM blood test results are back and patient indeed has significant anemia that will require blood transfusion. I've ordered 2 units of PRBC. BUN and creatinine is elevated. He probably has a GI bleed as well. Awaiting for the residents to call back for admission. Critical Care Narrative Aggregate critical care time was 30 minutes. Time to perform other separately billable procedures was not included in the critical care time. My time did not include minutes spent treating any other patients simultaneously or on activities that did not directly contribute to the patient's treatment. The services I provided to this patient were to treat and/or prevent clinically significant deterioration that could result in: Symptomatic anemia, blood transfusion I provided critical care services requiring my management, as noted below: Chart data review, documentation time, medication orders and management, vital sign assessments/reviewing monitor data, ordering and reviewing lab tests, ordering and interpreting/reviewing x-rays and diagnostic studies, care of the patient and discussion of the patient with the admitting physicians. Procedures EKG Prior to Arrival: No Diagnosis Primary Impression: Symptomatic anemia Admitting Information Admitting Physician Requests: Admit Scripts Lactobacillus Acidophilus 1 Tab Tab1 Tab PO TIDAC #30 TAB Ref 0 Prov:Дмитрий Montez MD R1 05/28/17 Savanna Escobar MD May 28, 2017 18:53
[2017-05-28] MEDS ORDERED: SODIUM CHLOR 0.9% 250 ML INJ 250 ML IV ONE (19:00)
[2017-05-28 19:04] LABS: APTT (PATIENT) 26.1 SEC (24.3-30.1); PROTHROMBIN TIME - PATIENT 10.7 SEC (9.8-11.6)
[2017-05-28] MEDS ORDERED: DICL75TA PO (19:07)
[2017-05-28] MEDS ORDERED: SODIUM CHLOR 0.9% 1000 ML INJ 1,000 ML IV SCH (19:34)
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
[2017-05-28] MEDS ORDERED: SODIUM CHLORIDE 0.9% FLUSH 10 ML FLUSH IV FLUSH PRN (19:45)
[2017-05-28] MEDS ORDERED: LACTTAB8 PO (20:11)
[2017-05-28] MEDS ORDERED: ACETAMINOPHEN 325 MG TAB PO PRN (20:15)
[2017-05-28] MEDS ORDERED: NALOXONE HCL 0.4 MG/ML AMP IV PRN (20:15)
[2017-05-28] MEDS ORDERED: HYDROmorphone HCL PF 1 MG/ML VIAL IV PRN (20:15)
[2017-05-28] MEDS ORDERED: IBUPROFEN 400 MG TAB PO PRN (20:15)
[2017-05-28 20:45] LABS: KERATOCYTES OCC (NORMAL); OVALOCYTES 1+ (NORMAL); PLATELET ESTIMATE SMEAR HIGH (NORMAL); PLATELET MORPHOLOGY NORMAL (NORMAL)
[2017-05-28 20:46] LABS: SCAN/DIFF AUTO DIFF CONFIRMED
[2017-05-28] MEDS: DILTIAZEM-CD 240 MG CAP ER PO SCH (21:00)
[2017-05-28] MEDS: SODIUM CHLOR 0.9% 1000 ML INJ 1,000 ML IV SCH (22:12)
[2017-05-28] MEDS: SODIUM CHLORIDE 0.9% FLUSH 10 ML FLUSH IV FLUSH SCH (22:12)
[2017-05-28] MEDS: ATORVASTATIN 40 MG TAB PO SCH (22:13)
[2017-05-28] MEDS: DONEPEZIL HCL 5 MG TAB PO SCH (22:13)
[2017-05-28] MEDS: CYCLOBENZAPRINE HCL 10 MG TAB PO SCH (22:13)
[2017-05-28] MEDS: PANTOPRAZOLE SODIUM 40 MG VIAL IV SCH (22:14)
[2017-05-28] MEDS: LATANOPROST 0.005% OPHT SOLN 2.5 ML BTL EACH EYE SCH (23:00)
[2017-05-29] VITALS (11 sets, daily range): BP systolic 111–169; BP diastolic 56–78; PULSE 58–71; RESP 17–21; TEMP 96.4–97.9; O2SAT 94–97
[2017-05-29] MEDS ORDERED: ACETAMINOPHEN 325 MG TAB PO PRN (02:00)
[2017-05-29] MEDS: SODIUM CHLOR 0.9% 1000 ML INJ 1,000 ML IV SCH ×3 (04:57→20:46)
[2017-05-29] MEDS: CYCLOBENZAPRINE HCL 10 MG TAB PO SCH ×3 (04:57→20:47)
[2017-05-29 07:31] LABS: HEMATOCRIT 21.7 % (39.0-51.0); REVIEW FLAG FINAL
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
[2017-05-29] MEDS: BUDESONIDE-FORMOTEROL 160/4.5 MCG INHALER INH SCH ×2 (09:00→20:48)
[2017-05-29] MEDS ORDERED: COMBIVENT RESPIMAT INH SCH (09:00)
[2017-05-29] MEDS: SODIUM CHLORIDE 0.9% FLUSH 10 ML FLUSH IV FLUSH SCH ×2 (09:00→20:46)
[2017-05-29] MEDS: CITALOPRAM HYDROBROMIDE 40 MG TAB PO SCH (09:12)
[2017-05-29] MEDS: SPIRONOLACTONE 25 MG TAB PO SCH (09:12)
[2017-05-29] MEDS: PANTOPRAZOLE SODIUM 40 MG VIAL IV SCH (09:12)
[2017-05-29] MEDS: GABAPENTIN 100 MG CAP PO SCH ×3 (09:13→17:30)
[2017-05-29] MEDS: LACTOBACILLUS ACIDOPHILUS TAB PO SCH ×3 (09:13→17:30)
[2017-05-29] MEDS: MULTIVITAMINS/MINERALS THERAPEUTIC TAB PO SCH (09:13)
[2017-05-29] MEDS: DILTIAZEM-CD 240 MG CAP ER PO SCH ×2 (09:13→20:47)
--- NOTE | 2017-05-29 10:39 | HHI.FPPN ---
Subjective Remarks Patient states he feels well this morning. He denies fever, chills, nausea, vomiting, blood in his stools. Patient states he will follow GIs recommendations. (Jett Rodriguez MD R2) Objective Vitals Vital Signs Date Time Temp Pulse Resp B/P Pulse Ox O2 Delivery O2 Flow Rate FiO2 05/29/17 08:17 97.9 60 18 144/63 97 05/29/17 04:50 58 20 111/57 95 05/29/17 02:09 60 05/29/17 02:04 97.8 60 18 111/57 96 05/29/17 01:36 97.1 67 17 121/56 95 05/28/17 22:07 98.3 46 20 113/69 94 05/28/17 21:00 49 20 113/57 99 Nasal Cannula 2 05/28/17 20:46 98.6 49 20 115/75 99 Nasal Cannula 2 05/28/17 20:17 100 Nasal Cannula 2.00 05/28/17 19:33 51 18 115/58 100 2 05/28/17 18:32 56 18 140/67 Room Air 05/28/17 17:06 98.5 61 18 110/61 95 Room Air (Jett Rodriguez MD R2) Result Diagram: 05/29/17 0605 05/28/17 1810 Objective Remarks GENERAL: Well-nourished well-developed. Uncooperative. SKIN: Pale palms. No rashes, ecchymoses or lesions. Cool and dry. HEAD: Atraumatic. Normocephalic. EYES: + Subconjunctival pallor. Pupils equal round and reactive. Extraocular motions intact. No scleral icterus. No injection or drainage. ENT: Nose without bleeding, purulent drainage or septal hematoma. Throat without erythema, tonsillar hypertrophy or exudate. Uvula midline. Airway patent. NECK: Trachea midline. No JVD or lymphadenopathy. Supple, nontender, no meningeal signs. CARDIOVASCULAR: Regular rate and rhythm. RESPIRATORY: Clear to auscultation. Breath sounds equal bilaterally. No wheezes , rales, or rhonchi. GASTROINTESTINAL: Abdomen soft, non-tender, nondistended. No hepato-splenomegaly , or palpable masses. No guarding. MUSCULOSKELETAL: Extremities without clubbing, cyanosis, or edema. No joint tenderness, effusion, or edema noted. No calf tenderness. NEUROLOGICAL: Awake and alert. Cranial nerves II through XII grossly intact. Motor and sensory grossly within normal limits. Normal speech. (Jett Rodriguez MD R2) A/P Assessment and Plan Patient is a 71-year-old man who was recently treated for C. difficile colitis with oral vancomycin and a recent sigmoidoscopy on April 28. Patient being admitted for GI bleed with gastroenterology consult. Discharge Planning Pending improvement in symptoms and GI recommendations Physical therapy consult (Jett Rodriguez MD R2) Attending Attestation Patient seen and examined. Case reviewed and discussed with the resident team. Agree with plan of care as discussed with me and documented in the resident note. (Yoana Rodriguez MD) Problem List: (1) Lower GI bleed Status: Acute Plan: Consult gastroenterology Nothing by mouth for expected procedure Every 6 hours H&H (1400 and 2000) -Transfuse for hemoglobin less than 7 Maintenance IV fluids with normal saline IV at 125 mL per hour Avoid NSAIDs and anticoagulation Protonix 40 mg IV twice a day Continue home medication of lactobacillus probiotic Physical therapy consult History: S/P Flexible sigmoidoscopy (04/28/17)----> 1. Moderate diverticulosis was noted in the sigmoid colon 2. Circumferential abnormal mucosa was found in the sigmoid colon; The mucosa was ulcerated and had loss of vascularity and superficial ulcers; multiple biopsies were performed using cold forceps 3. Retroflexed views revealed internal hemorrhoid 4. Revealed external hemorrhoids. Celiac, SMA, and JASE widely patent on CTA EGD with biopsy followed by ERCP with sphincterotomy and balloon extraction () revealed gastric diverticulum, gastritis, duodenal diverticulum, dilated common bile duct. Pathology revealed antral mucosa with mild active chronic gastritis and focal intestinal metaplasia. (2) Shoulder pain, left Status: Chronic Plan: Patient complains of left shoulder pain. Tylenol for pain 1 to 2 Oxycodone for pain 3-10 Dilaudid for breakthrough pain (3) Contraindication to anticoagulation therapy Status: Acute Plan: GI bleed is a contraindication to anticoagulation. (4) FEN, ppx, chronic problems Status: Acute Plan: Fluids: Maintenance fluids with normal saline IV Electrolytes: Monitor and replete Nutrition: Regular basic diet. Nothing by mouth after midnight DVT prophylaxis: Contraindicated given suspected GI bleed GI prophylaxis: Protonix IV Chronic medical conditions: Continue Tylenol for fever Hold home aspirin Continue atorvastatin for hypercholesterolemia Continue citalopram for depression Continue cyclobenzaprine for muscle spasm Hold diclofenac Continue diltiazem for hypertension Continue donepezil for dementia Continue Advair for COPD Continue gabapentin for neuropathy Continue Combivent for COPD Continue home medication of lactobacillus as a nutritional supplement Continue home lisinopril for hypertension Continue home multivitamin Continue home spironolactone for hypertension Continue travoprost ophthalmological drops for glaucoma (Jett Rodriguez MD R2) Jett Rodriguez MD R2 May 29, 2017 10:39 Yoana Rodriguez MD May 29, 2017 12:02
[2017-05-29 11:38] LABS: HEMATOCRIT 25.8 % (39.0-51.0); REVIEW FLAG FINAL
[2017-05-29 12:06] LABS: ALT (GPT) 21 U/L (12-78); ANION GAP 7 MEQ/L (5-15); AST (GOT) 22 U/L (15-37); BICARBONATE 27.3 MEQ/L (21.0-32.0); BLOOD UREA NITROGEN 37 MG/DL (7-18); CHLORIDE 104 MEQ/L (98-107); GLOMERULAR FILTRATION RATE 54 ML/MIN (>89); POTASSIUM 4.5 MEQ/L (3.5-5.1); SODIUM (NA) 138 MEQ/L (136-145)
[2017-05-29 12:12] LABS: ALKALINE PHOSPHATASE 88 U/L (45-117); TOTAL BILIRUBIN ADULT 0.4 MG/DL (0.2-1.0)
--- NOTE | 2017-05-29 12:25 | HHI.FPPN ---
Subjective Remarks Pt. seen and examined, discussed with Dr. Hermann Rodriguez. This is a 71 yo male with recent hospitalization for c. difficile who had been on vancomycin as an outpatient after discharge from the hospital on 04-30-17. Apparently since then he has had variably dark, sticky stools or medium soft brown stools, but in the ED is was positive for blood. He was seen at the [facility] and his BP was 86/40 and his office hemoglobin was 5.3. He was sent to the ED, where he was found to be hemoccult + and transfusion of 2 u prbc was ordered. Known diverticulosis, mucosal ulceration and hemorrhoids on sigmoidoscopy . Difficult to get clear history from patient and , who report contrasting symptoms. This a.m. pt. states he has been walking at home unassisted, but reported that he was very weak at home. Please see H&P for this admission for additional past, family, social history and review of systems at the time of admission. This a.m. he denies any pain. He has a slight cough. No complaint of fever or chills, no chest pain or SOB. Objective Vitals Vital Signs Date Time Temp Pulse Resp B/P Pulse Ox O2 Delivery O2 Flow Rate FiO2 05/29/17 12:15 96.8 65 20 152/74 96 05/29/17 08:17 97.9 60 18 144/63 97 05/29/17 04:50 58 20 111/57 95 05/29/17 02:09 60 05/29/17 02:04 97.8 60 18 111/57 96 05/29/17 01:36 97.1 67 17 121/56 95 05/28/17 22:07 98.3 46 20 113/69 94 05/28/17 21:00 49 20 113/57 99 Nasal Cannula 2 05/28/17 20:46 98.6 49 20 115/75 99 Nasal Cannula 2 05/28/17 20:17 100 Nasal Cannula 2.00 05/28/17 19:33 51 18 115/58 100 2 05/28/17 18:32 56 18 140/67 Room Air 05/28/17 17:06 98.5 61 18 110/61 95 Room Air Result Diagram: 05/29/17 1112 05/29/17 1112 Other Results Laboratory Tests Test 05/28/17 05/29/17 05/29/17 18:10 06:05 11:12 White Blood Count 12.4 TH/MM3 Red Blood Count 2.83 MIL/MM3 Hemoglobin 6.8 GM/DL 7.1 GM/DL 8.4 GM/DL Hematocrit 22.4 % 21.7 % 25.8 % Mean Corpuscular Volume 79.1 FL Mean Corpuscular Hemoglobin 24.2 PG Mean Corpuscular Hemoglobin 30.6 % Concent Red Cell Distribution Width 17.7 % Platelet Count 553 TH/MM3 Mean Platelet Volume 6.7 FL Monocytes (%) (Auto) 16.1 % Monocytes # (Auto) 2.0 TH/MM3 Eosinophils # (Auto) 0.5 TH/MM3 Platelet Estimate HIGH Ovalocytes 1+ Sodium Level 131 MEQ/L Potassium Level 5.3 MEQ/L Chloride Level 96 MEQ/L Blood Urea Nitrogen 41 MG/DL 37 MG/DL Creatinine 1.66 MG/DL Estimat Glomerular Filtration 41 ML/MIN 54 ML/MIN Rate Aspartate Amino Transf 45 U/L (AST/SGOT) Albumin 2.0 GM/DL 1.7 GM/DL Random Glucose 64 MG/DL Total Protein 6.0 GM/DL Objective Remarks GENERAL: Well-nourished well-developed. Pleasant at the time of my encounter.. SKIN: Pale palms. No rashes, ecchymoses or lesions. Cool and dry. HEAD: Atraumatic. Normocephalic. EYES: Conjunctiva pink. Pupils equal round and reactive. Extraocular motions intact. No scleral icterus. No injection or drainage. ENT: Nose without bleeding, purulent drainage or septal hematoma. Throat without erythema, tonsillar hypertrophy or exudate. Uvula midline. Airway patent. NECK: Trachea midline. No JVD or lymphadenopathy. Supple, nontender, no meningeal signs. CARDIOVASCULAR: Regular rate and rhythm. RESPIRATORY: Clear to auscultation. Breath sounds equal bilaterally. No wheezes , rales, or rhonchi. GASTROINTESTINAL: Abdomen soft, non-tender, nondistended. No hepato-splenomegaly , or palpable masses. No guarding. MUSCULOSKELETAL: Extremities without clubbing, cyanosis, or edema. No joint tenderness, effusion, or edema noted. No calf tenderness. NEUROLOGICAL: Awake and alert. Cranial nerves II through XII grossly intact. Motor and sensory grossly within normal limits. Normal speech. A/P Assessment and Plan Patient is a 71-year-old man who was recently treated for C. difficile colitis with oral vancomycin and a recent sigmoidoscopy on April 28. Patient being admitted for GI bleed with gastroenterology consult. Discharge Planning Pending improvement in symptoms and GI recommendations Physical therapy consult Attending Attestation Patient seen and examined. Case reviewed and discussed with the resident team. Agree with plan of care as discussed with me and documented in the resident note. Problem List: (1) Lower GI bleed Status: Acute Plan: Consult gastroenterology Nothing by mouth for expected procedure Every 6 hours H&H (1400 and 1999) -Transfuse for hemoglobin less than 7 Maintenance IV fluids with normal saline IV at 125 mL per hour Avoid NSAIDs and anticoagulation Protonix 40 mg IV twice a day Continue home medication of lactobacillus probiotic Physical therapy consult History: S/P Flexible sigmoidoscopy (04/28/17)----> 1. Moderate diverticulosis was noted in the sigmoid colon 2. Circumferential abnormal mucosa was found in the sigmoid colon; The mucosa was ulcerated and had loss of vascularity and superficial ulcers; multiple biopsies were performed using cold forceps 3. Retroflexed views revealed internal hemorrhoid 4. Revealed external hemorrhoids. Celiac, SMA, and JASE widely patent on CTA EGD with biopsy followed by ERCP with sphincterotomy and balloon extraction () revealed gastric diverticulum, gastritis, duodenal diverticulum, dilated common bile duct. Pathology revealed antral mucosa with mild active chronic gastritis and focal intestinal metaplasia. (2) Shoulder pain, left Status: Chronic Plan: Patient complains of left shoulder pain. Tylenol for pain 1 to 2 Oxycodone for pain 3-10 Dilaudid for breakthrough pain (3) Contraindication to anticoagulation therapy Status: Acute Plan: GI bleed is a contraindication to anticoagulation. (4) FEN, ppx, chronic problems Status: Acute Plan: Fluids: Maintenance fluids with normal saline IV Electrolytes: Monitor and replete Nutrition: Regular basic diet. Nothing by mouth after midnight DVT prophylaxis: Contraindicated given suspected GI bleed GI prophylaxis: Protonix IV Chronic medical conditions: Continue Tylenol for fever Hold home aspirin Continue atorvastatin for hypercholesterolemia Continue citalopram for depression Continue cyclobenzaprine for muscle spasm Hold diclofenac Continue diltiazem for hypertension Continue donepezil for dementia Continue Advair for COPD Continue gabapentin for neuropathy Continue Combivent for COPD Continue home medication of lactobacillus as a nutritional supplement Continue home lisinopril for hypertension Continue home multivitamin Continue home spironolactone for hypertension Continue travoprost ophthalmological drops for glaucoma Yoana Rodriguez MD May 29, 2017 12:25
[2017-05-29] MEDS ORDERED: PEG (High)/E-LYTE SOLN 4000 ML BTL PO ONE (16:00)
[2017-05-29 20:17] LABS: HEMATOCRIT 28.9 % (39.0-51.0); REVIEW FLAG FINAL
[2017-05-29] MEDS: DONEPEZIL HCL 5 MG TAB PO SCH (20:47)
[2017-05-29] MEDS: LATANOPROST 0.005% OPHT SOLN 2.5 ML BTL EACH EYE SCH (20:49)
[2017-05-29] MEDS: ATORVASTATIN 40 MG TAB PO SCH (20:54)
[2017-05-29] MEDS ORDERED: LISINOPRIL 20 MG TAB PO SCH (21:00)
[2017-05-30] VITALS: BP 137/64; PULSE 61; RESP 20; TEMP 95.6; O2SAT 93
[2017-05-30 01:40] LABS: HEMATOCRIT 25.8 % (39.0-51.0); REVIEW FLAG FINAL
[2017-05-30 04:00] VITALS: BP 185/77; PULSE 67; RESP 20; TEMP 96.9; O2SAT 92
[2017-05-30] MEDS: SODIUM CHLOR 0.9% 1000 ML INJ 1,000 ML IV SCH ×2 (05:05→12:21)
[2017-05-30] MEDS: CYCLOBENZAPRINE HCL 10 MG TAB PO SCH (05:07)
[2017-05-30 06:47] LABS: AUTOMATED NEUTROPHIL # 4.4 TH/MM3 (1.8-7.7); BASOPHIL # 0.1 TH/MM3 (0-0.2); BASOPHIL % 0.8 % (0.0-2.0); EOSINOPHIL # 0.3 TH/MM3 (0-0.4); EOSINOPHIL % 4.3 % (0.0-4.0); HEMATOCRIT 26.4 % (39.0-51.0); HEMO FLAGS DIFF FINAL; LYMPH % 19.9 % (9.0-44.0); LYMPHOCYTE # 1.4 TH/MM3 (1.0-4.8); MEAN CELL VOLUME 79.3 FL (80.0-100.0); MEAN CORPUSCULAR HEMOGLOBIN 25.7 PG (27.0-34.0); MEAN CORPUSCULAR HGB CONC 32.4 % (32.0-36.0); MONO % 13.2 % (0.0-8.0); NEUT % 61.8 % (16.0-70.0); PLATELET COUNT 480 TH/MM3 (150-450); RED BLOOD COUNT 3.33 MIL/MM3 (4.50-5.90); RED CELL DISTRIBUTION WIDTH 17.2 % (11.6-17.2); WHITE BLOOD COUNT 7.1 TH/MM3 (4.0-11.0)
[2017-05-30 07:04] LABS: ALKALINE PHOSPHATASE 93 U/L (45-117); ALT (GPT) 20 U/L (12-78); ANION GAP 8 MEQ/L (5-15); AST (GOT) 21 U/L (15-37); BICARBONATE 25.9 MEQ/L (21.0-32.0); BLOOD UREA NITROGEN 22 MG/DL (7-18); CHLORIDE 107 MEQ/L (98-107); GLOMERULAR FILTRATION RATE 90 ML/MIN (>89); POTASSIUM 4.5 MEQ/L (3.5-5.1); SODIUM (NA) 141 MEQ/L (136-145); TOTAL BILIRUBIN ADULT 0.4 MG/DL (0.2-1.0)
[2017-05-30 08:00] VITALS: BP 169/74; PULSE 70; RESP 20; TEMP 97.3; O2SAT 95
[2017-05-30] MEDS: BUDESONIDE-FORMOTEROL 160/4.5 MCG INHALER INH SCH (08:27)
[2017-05-30] MEDS: DILTIAZEM-CD 240 MG CAP ER PO SCH (08:29)
[2017-05-30] MEDS: SPIRONOLACTONE 25 MG TAB PO SCH (08:29)
[2017-05-30] MEDS: MULTIVITAMINS/MINERALS THERAPEUTIC TAB PO SCH (08:29)
[2017-05-30] MEDS: CITALOPRAM HYDROBROMIDE 40 MG TAB PO SCH (08:29)
[2017-05-30] MEDS: SODIUM CHLORIDE 0.9% FLUSH 10 ML FLUSH IV FLUSH SCH (08:30)
[2017-05-30] MEDS: PANTOPRAZOLE SODIUM 40 MG VIAL IV SCH (08:30)
[2017-05-30] MEDS: LACTOBACILLUS ACIDOPHILUS TAB PO SCH ×2 (08:30→12:13)
[2017-05-30] MEDS: GABAPENTIN 100 MG CAP PO SCH ×2 (08:30→12:13)
[2017-05-30] MEDS ORDERED: PROT40TA PO (08:30)
--- NOTE | 2017-05-30 08:32 | HHI.FF ---
Face to Face Verification Diagnosis: (1) GI bleed Physical Therapy Order: Evaluate and Treat, Improve ambulation, Strength and gait training Home Health Nursing Order: Medical education Signs/symptoms of disease process I have seen patient Jose GarciaSr on 05/30/17. My clinical findings support the need for the requested home health care services because: Ltd mobility - disease progression Patient has SOB Deconditioned w/ increased weakness Med compliance is questionable Limited ability to care for self I certify that my clinical findings support that this patient is homebound because: Impaired cognitive ability/safety Unsteady gait/balance Unsafe to leave home unassisted Jett Rodriguez MD R2 May 30, 2017 08:32
[2017-05-30 08:37] LABS: C. DIFF EPI 027 PRESUMPTIVE NEGATIVE (NEGATIVE); C. DIFF TOXIN PCR NEGATIVE (NEGATIVE)
--- NOTE | 2017-05-30 09:00 | HHI.FPPN ---
Subjective Remarks Patient is doing well this morning. He denies concerns this morning. He denies fever, chills, nausea, vomiting, abdominal pain. Patient/ understand we are concerned for GI bleeding. He understands we recommend EGD and colonoscopy. He understands that if we do not do this, we may not know the source of his bleeding. He understands if we do not know the source of the bleeding, he may potentially continue to bleed which may result in . Despite this thorough understanding, the patient and his have decided against EGD and colonoscopy. They would like to be discharged and seen as an outpatient. (Jett Rodrigeuz MD R2) Objective Vitals Vital Signs Date Time Temp Pulse Resp B/P Pulse Ox O2 Delivery O2 Flow Rate FiO2 05/30/17 08:00 97.3 70 20 169/74 95 05/30/17 04:00 96.9 67 20 185/77 92 05/30/17 03:05 21 05/30/17 00:00 95.6 61 20 137/64 93 05/29/17 20:38 69 05/29/17 20:00 96.4 71 21 169/75 96 05/29/17 18:30 97.7 68 18 167/78 94 05/29/17 16:26 97.9 68 20 142/70 96 05/29/17 12:15 96.8 65 20 152/74 96 05/29/17 09:15 60 I/O 05/29/17 05/29/17 05/29/17 05/30/17 05/30/17 05/30/17 07:00 15:00 23:00 07:00 15:00 23:00 Intake Total 588 ml 686 ml 0 ml Output Total 0 ml Balance 588 ml 686 ml 0 ml Intake Oral 240 ml 0 ml 0 ml IV Total 348 ml 686 ml Output Urine Total 0 ml # Voids 1 # Bowel Movements 2 (Jett Rodriguez MD R2) Result Diagram: 05/30/17 0553 05/30/17 05 Objective Remarks GENERAL: Well-nourished well-developed. Pleasant in no acute distress. SKIN: Pale palms. No rashes, ecchymoses or lesions. Cool and dry. HEAD: Atraumatic. Normocephalic. EYES: Conjunctiva pink. Pupils equal round and reactive. Extraocular motions intact. No scleral icterus. No injection or drainage. ENT: Nose without bleeding, purulent drainage or septal hematoma. Throat without erythema, tonsillar hypertrophy or exudate. Uvula midline. Airway patent. NECK: Trachea midline. No JVD or lymphadenopathy. Supple, nontender, no meningeal signs. CARDIOVASCULAR: Regular rate and rhythm. RESPIRATORY: Clear to auscultation. Breath sounds equal bilaterally. No wheezes , rales, or rhonchi. GASTROINTESTINAL: Abdomen soft, non-tender, nondistended. No hepato-splenomegaly , or palpable masses. No guarding. MUSCULOSKELETAL: Extremities without clubbing, cyanosis, or edema. No joint tenderness, effusion, or edema noted. No calf tenderness. NEUROLOGICAL: Awake and alert. Cranial nerves II through XII grossly intact. Motor and sensory grossly within normal limits. Normal speech. (Jett Rodriguez MD R2) A/P Assessment and Plan Patient is a 71-year-old man who was recently treated for C. difficile colitis with oral vancomycin and a recent sigmoidoscopy on April 28. Patient being admitted for GI bleed with gastroenterology consult. Discharge Planning Likely today as the patient and are refusing EGD/colonoscopy Physical therapy consult-recommends home with home health PT (Jett Rodriguez MD R2) Attending Attestation Patient seen and examined. Case reviewed and discussed with the resident team. Agree with plan of care as discussed with me and documented in the resident note. (Yoana Rodriguez MD) Problem List: (1) Lower GI bleed Status: Acute Plan: Consult gastroenterology Clear liquid per GI h/h stable at 8.6 -Transfuse for hemoglobin less than 7 Avoid NSAIDs and anticoagulation Protonix 40 mg IV twice a day Continue home medication of lactobacillus probiotic Physical therapy consult History: S/P Flexible sigmoidoscopy (04/28/17)----> 1. Moderate diverticulosis was noted in the sigmoid colon 2. Circumferential abnormal mucosa was found in the sigmoid colon; The mucosa was ulcerated and had loss of vascularity and superficial ulcers; multiple biopsies were performed using cold forceps 3. Retroflexed views revealed internal hemorrhoid 4. Revealed external hemorrhoids. Celiac, SMA, and JASE widely patent on CTA EGD with biopsy followed by ERCP with sphincterotomy and balloon extraction () revealed gastric diverticulum, gastritis, duodenal diverticulum, dilated common bile duct. Pathology revealed antral mucosa with mild active chronic gastritis and focal intestinal metaplasia. (2) Shoulder pain, left Status: Chronic Plan: Patient complains of left shoulder pain. Tylenol for pain 1 to 2 Oxycodone for pain 3-10 Dilaudid for breakthrough pain (3) Contraindication to anticoagulation therapy Status: Acute Plan: GI bleed is a contraindication to anticoagulation. (4) FEN, ppx, chronic problems Status: Acute Plan: Fluids: Maintenance fluids with normal saline IV Electrolytes: Monitor and replete Nutrition: Clear liquid per GI DVT prophylaxis: Contraindicated given suspected GI bleed GI prophylaxis: Protonix IV Chronic medical conditions: Continue Tylenol for fever Hold home aspirin Continue atorvastatin for hypercholesterolemia Continue citalopram for depression Continue cyclobenzaprine for muscle spasm Hold diclofenac Continue diltiazem for hypertension Continue donepezil for dementia Continue Advair for COPD Continue gabapentin for neuropathy Continue Combivent for COPD Continue home medication of lactobacillus as a nutritional supplement Continue home lisinopril for hypertension Continue home multivitamin Continue home spironolactone for hypertension Continue travoprost ophthalmological drops for glaucoma (Jett Rodriguez MD R2) Jett Rodriguez MD R2 May 30, 2017 09:00 Yoana Rodriguez MD May 30, 2017 11:42
[2017-05-30] MEDS ORDERED: PNEUMOCOCCAL POLYVALENT INJ 25 MCG/0.5 ML SYR IM ONE (10:00)
== END 2017-05-30 13:50 | disposition home health service (06) | DRG 378 ==
LOC: NEPE 16:53 → NEDA 19:30 → NEPGCP 21:58 → N07A 05-29 18:30
PROVIDERS: ADMIT Family Medicine; ATTEND Family Medicine
PROC: 30233N1 Transfusion of Nonautologous Red Blood Cells into Peripheral Vein, Percutaneous Approach (ICD-10-PCS; principal; 2017-05-28)
DX: K92.2 Gastrointestinal hemorrhage, unspecified (principal); D62 Acute posthemorrhagic anemia; E87.5 Hyperkalemia; E87.1 Hypo-osmolality and hyponatremia; F03.90 Unspecified dementia, unspecified severity, without behavioral disturbance, psychotic disturbance, mood disturbance, and anxiety; G62.9 Polyneuropathy, unspecified; J44.9 Chronic obstructive pulmonary disease, unspecified; E78.5 Hyperlipidemia, unspecified; I10 Essential (primary) hypertension; M25.512 Pain in left shoulder; E78.00 Pure hypercholesterolemia, unspecified; G89.29 Other chronic pain; D72.829 Elevated white blood cell count, unspecified; I25.10 Atherosclerotic heart disease of native coronary artery without angina pectoris; M62.838 Other muscle spasm; F32.9 Major depressive disorder, single episode, unspecified; H40.9 Unspecified glaucoma; Z85.828 Personal history of other malignant neoplasm of skin; Z86.73 Personal history of transient ischemic attack (TIA), and cerebral infarction without residual deficits; Z87.891 Personal history of nicotine dependence; Z88.1 Allergy status to other antibiotic agents; Z88.5 Allergy status to narcotic agent; Z88.0 Allergy status to penicillin; Z88.2 Allergy status to sulfonamides
CPT/HCPCS: 36430; 80053; 82272; 85014; 85018; 85025; 85610; 85730; 86850; 86900; 86901; 86920; 87493; C9113; J7030; J7050; P9016

== ENCOUNTER → 2017-06-24 | Outpatient (CLI) | payer MEDICARE, OTHER ==
[~2017-06-24] MED LIST changes: +ACET1TAB86 PO; -ALBU0.08 NEB; +AMLO5 PO; +ARIC5TAB2 PO; +ASCO100016 PO; -ASCO500T PO; +ASPI-99 PO; +CELE20TA PO; +CHLO25TA2 PO; +CLON.1 PO; +CLON.2 PO; +COLL30T TOPICAL; +COMMODE BEDSIDE1 MI1; +DILA2TAB2 PO; -DILT-64 PO; +DILT240C PO; -DULC10SU3 RECTAL; -ENEMENE3 PR; +FENT25T T-DERMAL; +FERR325C PO; +FERR325T20 PO; +HEPA10003 SQ; +HYDR-3516 PO; +HYDR-3800 PO; +HYDR-3801 PO; -KETO60IN6 IM; -KONS100P3 PO; +LACTTAB8 PO; +LATA.005%O EACH EYE; +LISI-515 PO; -MAGNSOL2 PO; -MAPA325T PO; -MILKSUS PO; +OXYC1TAB35 PO; +OXYC1TAB63 PO; +PANT40TA3 PO; -SENS113T TOPICAL; -SPIR25TA PO; +SPIRCAP INH; +SYMB160A INH; +THERM PO; +VANC1000P IV; -VANC125S PO; +VENTAER INH; +VITA500T2 PO; -ZINC220T PO; +guaiFENesin ER PO
--- NOTE | 2017-06-25 10:10 | RADRPT ---
EXAM DATE/TIME: 06/24/2017 13:08 [facility] COMPARISON: FOOT LEFT COMPLETE ([id number]), February 11, 2017, 15:49. INDICATIONS : Left foot first metatarsal infection for 5 months. DOSE: 20.5 mCi Tc99m Ceretec labeled white blood cells IV SPECT IMAGIN hrs, 20 hrs IMAGNG: SPECT/CT imaging with fusion was performed. RADIATION DOSE: 5.85 CTDIvol (mGy) MEDICAL HISTORY : Hypertension. SURGICAL HISTORY : Left knee. ENCOUNTER: Initial ACUITY: 4 - 6 months PAIN SCALE: 2/10 LOCATION: Left Foot. TECHNIQUE: Following the in vitro labeling of autologous white cells and reinjection, whole body scan was perfor med at the specified times. SPECT imaging was performed at the specified time in sagittal, axial and coronal planes. Attenuation correction was performed with the computed tomography and both the atten uation correction and non-attenuation corrected data sets were reviewed. FINDINGS: There is intense abnormal white cell accumulation corresponding to the anterior medial aspect of the medial sesamoid superficial to the left foot first MTP joint. CONCLUSION: Findings consistent with osteomyelitis involving the medial sesamoid adjacent to the left foot first metatarsal head Jose Segura MD on June 25, 2017 at 10:05 Board Certified Radiologist. This report was verified electronically.
== END ==
LOC: HRAD 08:23
PROVIDERS: ATTEND Podiatrist Primary Podiatric Medicine
DX: L97.509 Non-pressure chronic ulcer of other part of unspecified foot with unspecified severity (principal)
CPT/HCPCS: 78807; 78999; A9569

== ENCOUNTER 2017-07-02 09:30 | Inpatient (IN) | payer MEDICARE, OTHER ==
[~2017-07-02] VITALS: Ht 180.3 cm; Wt 76.7 kg
[~2017-07-02 09:30] MED LIST changes: -ACET1TAB86 PO; -AMLO5 PO; -ARIC5TAB2 PO; -ASPI-99 PO; -CELE20TA PO; -CHLO25TA2 PO; -CLON.1 PO; -CLON.2 PO; -COLL30T TOPICAL; -COMMODE BEDSIDE1 MI1; -DILA2TAB2 PO; -FENT25T T-DERMAL; -FERR325T20 PO; -HEPA10003 SQ; -HYDR-3516 PO; -HYDR-3800 PO; -HYDR-3801 PO; -LACT PO; -LATA.005%O EACH EYE; -LISI-515 PO; -OXYC1TAB35 PO; -PANT40TA3 PO; -SPIRCAP INH; -SYMB160A INH; -THERM PO; -VANC1000P IV; -VENTAER INH; -VITA500T2 PO; -guaiFENesin ER PO
[2017-07-02 09:32] VITALS: BP 131/60; PULSE 65; RESP 16; TEMP 97.8; O2SAT 100
--- NOTE | 2017-07-02 13:10 | PD.POD.CON ---
Patient Intake Chief Complaint Osteomyelitis of the left first metatarsal and sesamoid Consult Requested by Reason for Consult Preparation for surgery on Thursday Primary Care Physician Roxanne Santiago MD History of Present Illness Patient is a 71-year-old male I been following in the wound center for nonhealing wound of the left first metatarsal phalangeal joint. Ceretec labeled white blood cell scan showed osteomyelitis of the medial sesamoid. Patient is being admitted today for surgery tomorrow. Patient has a history of Clostridium difficile and I feel that removal of the infected bone without long- term antibiotics would be beneficial for the patient. Patient was sent to the emergency department to be admitted to the [facility] residency program and consult me for surgery tomorrow Coded Allergies: Sulfa (Sulfonamide Antibiotics) (Verified Allergy, Severe, Anaphylaxis, ) metronidazole (Verified Allergy, Severe, Fever, colitis, 06/30/17) While being treated for Cdiff. Doubt if true allergy. penicillin G (Verified Allergy, Severe, Anaphylaxis, 06/30/17) sulfamethoxazole (Verified Allergy, Severe, Anaphylaxis, 06/30/17) trimethoprim (Verified Allergy, Severe, Anaphylaxis, 06/30/17) erythromycin base (Verified Allergy, Intermediate, Rash, 06/30/17) MRI PRECAUTION (Verified Adverse Reaction, Severe, BLADDER STIMULATOR, ) BRAIN ONLY ON RECEIVE ONLY COIL, P.O. 01/11/17, DML *MDRO Multi-Drug Resistant Organism (Verified Adverse Reaction, Unknown, MRSA, 06/30/17) MRSA PCR (nares) POSITIVE - 01/11/17 MRSA (foot) 06/09/17, 06/16/17 acetaminophen (Verified Adverse Reaction, Unknown, Psychosis, 06/30/17) meperidine (Verified Adverse Reaction, Unknown, Psychosis, 06/30/17) morphine (Verified Adverse Reaction, Unknown, Psychosis, 06/30/17) oxycodone (Verified Adverse Reaction, Unknown, Psychosis, 06/30/17) Uncoded Allergies: surgical tape (Allergy, Severe, 12/15/13) Preferred Language to Discuss: Yakut Barriers to Learning: None Teaching Method: Discussion Vital Signs Date Time Temp Pulse Resp B/P Pulse Ox O2 Delivery O2 Flow Rate FiO2 07/02/17 09:32 97.8 65 16 131/60 100 Pain scale used: 0-10 numeric scale Pain score: 1 Past, Family & Social History Past Medical History Endocrine: REPORTS HX OF: Diabetes mellitus, Graves disease Cardiovascular: REPORTS HX OF: Hypertension Gastrointestinal: REPORTS HX OF: Other GI history (prior GI bleed, pt finished c. diff treatment on friday 05/25) Musculoskeletal: REPORTS HX OF: Other musculoskeletal hx (L. shoulder pain worsen after his arm was injured in latest hospitalization) Cancer/Hematology: REPORTS HX OF: Anemia Past Surgical History Gastrointestinal: DENIES HX OF: Colectomy, total Review of Systems Notes No changes in his 14 point review of systems exam since he was seen last on Thursday Exam-Podiatry Constitutional General appearance: comfortable Nutritional status: normal Orientation: alert and oriented x3 Dermatological Exam Skin Temp - Right: Within Normal Limits Skin Texture - Right: Within Normal Limits Skin Elasticity - Right: Within Normal Limits Skin Tugor - Right: Within Normal Limits Hair Growth - Right: Within Normal Limits Pigmentation - Right: Within Normal Limits Skin Temp - Left: Within Normal Limits Skin Texture - Left: Within Normal Limits Skin Elasticity - Left: Within Normal Limits Skin Tugor - Left: Within Normal Limits Hair Growth - Left: Within Normal Limits Pigmentation - Left: Within Normal Limits Ulcers: Location/Measurements Ulceration overlying the medial first metatarsal head of the left foot. Also superficial ulceration of the fifth metatarsal of the left foot. No signs of drainage or purulence. Vascular/Lymphatic Exam R Dorsails Pedis: Palpable L Dorsails Pedis: Palpable R Posterior Tibial: Palpable L Posterior Tibial: Palpable Neurologic Exam Details No neurological deficit seen Muscle Strength Dorsiflexion (Right): Normal Plantarflexion (Right): Normal Inversion (Right): Normal Eversion (Right): Normal Digital (Right): Normal Dorsiflexion (Left): Normal Plantarflexion (Left): Normal Inversion (Left): Normal Eversion (Left): Normal Digital (Left): Normal Foot Range of Motion Dorsiflexion (Right): Normal Plantarflexion (Right): Normal Inversion (Right): Normal Eversion (Right): Normal Digital (Right): Normal Dorsiflexion (Left): Normal Plantarflexion (Left): Normal Inversion (Left): Normal Eversion (Left): Normal Digital (Left): Normal Joint Instability Present (Right): Tailor's Bunion Present (Left): Tailor's Bunion Wound Assessment Wound Information - Wound One Wound Location: Left lateral foot Wound Two Wound Location: Left foot medial first met head Lab and Radiology Results Radiology Ceretec labeled white blood cell scan showed increased uptake to the medial sesamoid left first metatarsal phalangeal joint Assessment/Plan Problem List: (1) Foot ulceration Status: Acute (2) Osteomyelitis of foot, acute Status: Acute Additional Plans & Procedures PLAN: Patient to be admitted today to the ED. We'll take to surgery on Thursday morning at 9 AM for excision of bone of the first metatarsal phalangeal joint. Consent orders were written. Problem Qualifiers (1) Foot ulceration: Qualified Code: L97.522 - Skin ulcer of left foot with fat layer exposed Gamal Arvizu DPM Jul 02, 2017 13:09
--- NOTE | 2017-07-02 13:48 | RADRPT ---
EXAM DATE/TIME: 07/02/2017 13:16 [facility] COMPARISON: CHEST SINGLE AP, April 29, 2017, 9:40. INDICATIONS : Cough. MEDICAL HISTORY : Hypertension. SURGICAL HISTORY : None. ENCOUNTER: Initial ACUITY: 1 day PAIN SCORE: 0/10 LOCATION: Bilateral chest FINDINGS: A single view of the chest demonstrates the lungs to be symmetrically aerated without evidence of mas s, infiltrate or effusion. The cardiomediastinal contours are unremarkable. Osseous structures are intact. CONCLUSION: No acute disease. There is no evidence of pneumonia. Дмитрий Hoyos MD on July 02, 2017 at 13:46 Board Certified Radiologist. This report was verified electronically.
--- NOTE | 2017-07-02 14:45 | PD ---
HPI Chief Complaint: Medical Clearance Time Seen by Provider: 14:45 Travel History International Travel<30 days: No Contact w/Intl Traveler<30days: No Traveled to known affect area: No History of Present Illness HPI 71-year-old male, patient of the family residents, with history of CVA, dementia , CAD, hypertension, COPD, followed by Dr. Arvizu for infection of the left foot, presents today for admission after white blood cell scan showed osteomyelitis of the medial sesamoid. Patient is scheduled for 9 AM surgical intervention tomorrow morning. Patient reports pain of the left foot with movement or touch. Denies any recent fever or chills. Denies any chest pain or tightness. No difficulty breathing. Patient has no other symptoms reported this time. PFSH Past Medical History Hx Anticoagulant Therapy: Yes (81 MG ASA) Arthritis: Yes Asthma: No Autoimmune Disease: No Blood Disorders: Yes (ANEMIA) Anxiety: Yes Depression: Yes Heart Rhythm Problems: No Cancer: No Cardiovascular Problems: Yes High Cholesterol: Yes Chemotherapy: No Chest Pain: No Congestive Heart Failure: No COPD: Yes Cerebrovascular Accident: Yes (x2 left side) Dementia: Yes (MILD ) Diabetes: No Diminished Hearing: Yes (BILATERAL HEARING AIDS) Endocrine: No Gastrointestinal Disorders: Yes GERD: No Genitourinary: No Headaches: No Hiatal Hernia: No Heparin Induced Thrombocytopen: No Hypertension: Yes Immune Disorder: No Implanted Vascular Access Dvce: Yes Kidney Stones: Yes Musculoskeletal: Yes (ARTHRITIS, ) Neurologic: No Psychiatric: No Reproductive: No Respiratory: Yes Migraines: No Pancreatitis: Yes Radiation Therapy: No Renal Failure: No Seizures: No Sickle Cell Disease: No Sleep Apnea: No Thyroid Disease: No Ulcer: No Tetanus Vaccination: < 5 Years Influenza Vaccination: Yes Past Surgical History Abdominal Surgery: Yes AICD: No Appendectomy: Yes Arteriovenous Shunt: No Body Medical Devices: penile implant Cardiac Surgery: Yes (right endarectomy) Ear Surgery: No Endocrine Surgery: No Eye Surgery: Yes Genitourinary Surgery: Yes (lithotripsy) Gynecologic Surgery: No Insulin Pump: No Joint Replacement: No Neurologic Surgery: Yes Oral Surgery: Yes (mouth abscess ) Pacemaker: Yes (BLADDER STIMULATOR) Thoracic Surgery: No Other Surgery: Yes Social History Alcohol Use: No Tobacco Use: No Substance Use: No Allergies-Medications (Allergen,Severity, Reaction): Coded Allergies: Sulfa (Sulfonamide Antibiotics) (Verified Allergy, Severe, Anaphylaxis, ) metronidazole (Verified Allergy, Severe, Fever, colitis, 06/30/17) While being treated for Cdiff. Doubt if true allergy. penicillin G (Verified Allergy, Severe, Anaphylaxis, 06/30/17) sulfamethoxazole (Verified Allergy, Severe, Anaphylaxis, 06/30/17) trimethoprim (Verified Allergy, Severe, Anaphylaxis, 06/30/17) erythromycin base (Verified Allergy, Intermediate, Rash, 06/30/17) aspirin (Verified Allergy, Unknown, 07/02/17) oxycodone (Verified Allergy, Unknown, 07/02/17) MRI PRECAUTION (Verified Adverse Reaction, Severe, BLADDER STIMULATOR, ) BRAIN ONLY ON RECEIVE ONLY COIL, P.O. 01/11/17, DML *MDRO Multi-Drug Resistant Organism (Verified Adverse Reaction, Unknown, MRSA, 06/30/17) MRSA PCR (nares) POSITIVE - 01/11/17 MRSA (foot) 06/09/17, 06/16/17 acetaminophen (Verified Adverse Reaction, Unknown, Psychosis, 06/30/17) meperidine (Verified Adverse Reaction, Unknown, Psychosis, 06/30/17) morphine (Verified Adverse Reaction, Unknown, Psychosis, 06/30/17) Uncoded Allergies: surgical tape (Allergy, Severe, 12/15/13) Reported Meds & Prescriptions Reported Meds & Active Scripts Active Iron (Ferrous Sulfate) 325 Mg Cap 325 Mg PO BIDPC Flexeril (Cyclobenzaprine HCl) 10 Mg Tab 10 Mg PO Q8HR Gabapentin 100 Mg Cap 100 Mg PO TID Donepezil 10 Mg Tab 10 Mg PO HS Atorvastatin (Atorvastatin Calcium) 40 Mg Tab 40 Mg PO HS Travatan Z Opth Drops (Travoprost) 0.004 % Soln 1 Drop EACH EYE HS Citalopram (Citalopram Hydrobromide) 40 Mg Tab 60 Mg PO DAILY Please take 1.5 pills daily Lisinopril 40 Mg Tab 40 Mg PO HS Aspirin 81 Low Dose (Aspirin) 81 Mg Chew 81 Mg CHEW DAILY Reported Diltiazem HCl ER (Diltiazem HCl Coated Beads) 240 Mg Cap 240 Mg PO BID Vitamin C (Ascorbic Acid) 1,000 Mg Tablet.er 1,000 Mg PO DAILY Fluticasone Nasal [place] 50 Mcg/Act Naspr 50 Mcg EACH NARE BID 50 mcg/spray Lactobacillus Acidophilus 1 Tab Tab 1 Tab PO TIDAC Multi Vitamin and Mineral (Multiple Vitamins W/ Minerals) 1 Tab Tab 1 Tab PO DAILY Review of Systems Except as stated in HPI: all other systems reviewed are Neg Physical Exam Narrative GENERAL: Nourished appearing male patient, sitting in bed in no acute distress. SKIN: Focused skin assessment warm/dry. HEAD: Atraumatic. Normocephalic. EYES: Pupils equal and round. No scleral icterus. No injection or drainage. ENT: No nasal bleeding or discharge. Mucous membranes pink and moist. NECK: Trachea midline. No JVD. CARDIOVASCULAR: Regular rate and rhythm. No murmur appreciated. RESPIRATORY: No accessory muscle use. Clear to auscultation. Breath sounds equal bilaterally. GASTROINTESTINAL: Abdomen soft, non-tender, nondistended. Hepatic and splenic margins not palpable. MUSCULOSKELETAL: No obvious deformities. No clubbing. No cyanosis. No edema. Dressing to the left foot with noted drainage on the medial aspect. Cap refill within normal limits. Distal pulses remain palpable. NEUROLOGICAL: Awake and alert. No obvious cranial nerve deficits. Motor grossly within normal limits. Normal speech. PSYCHIATRIC: Appropriate mood and affect; insight and judgment normal. Data Data Last Documented VS Vital Signs Date Time Temp Pulse Resp B/P Pulse Ox O2 Delivery O2 Flow Rate FiO2 07/02/17 14:47 57 18 182/92 100 Room Air 07/02/17 09:32 97.8 Orders Electrocardiogram (07/02/17 12:44) Complete Blood Count With Diff (07/02/17 12:44) Comprehensive Metabolic Panel (07/02/17 12:44) Prothrombin Time / Inr (Pt) (07/02/17 12:44) Act Partial Throm Time (Ptt) (07/02/17 12:44) Chest, Single Ap (07/02/17 12:44) Iv Access Insert/Monitor (07/02/17 12:44) Consent (07/02/17 ) Diet Npo (07/03/17 Breakfast) Labs Laboratory Tests Test 07/02/17 13:35 White Blood Count 8.4 TH/MM3 Red Blood Count 3.74 MIL/MM3 Hemoglobin 10.3 GM/DL Hematocrit 32.7 % Mean Corpuscular Volume 87.5 FL Mean Corpuscular Hemoglobin 27.4 PG Mean Corpuscular Hemoglobin 31.4 % Concent Red Cell Distribution Width 21.4 % Platelet Count 328 TH/MM3 Mean Platelet Volume 7.2 FL Neutrophils (%) (Auto) 66.8 % Lymphocytes (%) (Auto) 18.3 % Monocytes (%) (Auto) 11.1 % Eosinophils (%) (Auto) 3.3 % Basophils (%) (Auto) 0.5 % Neutrophils # (Auto) 5.6 TH/MM3 Lymphocytes # (Auto) 1.5 TH/MM3 Monocytes # (Auto) 0.9 TH/MM3 Eosinophils # (Auto) 0.3 TH/MM3 Basophils # (Auto) 0.0 TH/MM3 CBC Comment DIFF FINAL Differential Comment Prothrombin Time 10.4 SEC Prothromb Time International 0.9 RATIO Ratio Activated Partial 27.2 SEC Thromboplast Time Sodium Level 141 MEQ/L Potassium Level 4.1 MEQ/L Chloride Level 107 MEQ/L Carbon Dioxide Level 27.0 MEQ/L Anion Gap 7 MEQ/L Blood Urea Nitrogen 19 MG/DL Creatinine 0.71 MG/DL Estimat Glomerular Filtration 109 ML/MIN Rate Random Glucose 88 MG/DL Calcium Level 9.1 MG/DL Total Bilirubin 0.2 MG/DL Aspartate Amino Transf 18 U/L (AST/SGOT) Alanine Aminotransferase 13 U/L (ALT/SGPT) Alkaline Phosphatase 101 U/L Total Protein 7.3 GM/DL Albumin 2.8 GM/DL [facility] Medical Decision Making Medical Screen Exam Complete: Yes Emergency Medical Condition: Yes Medical Record Reviewed: Yes Differential Diagnosis Chronic wound infection versus acute infection versus osteomyelitis versus cellulitis Narrative Course 71-year-old male presents to emergency department for medical admission for surgical intervention on a left foot osteomyelitis confirmed by white blood cell scan. Patient appears well. The left foot dressing is intact. Laboratory Tests Test 07/02/17 13:35 White Blood Count 8.4 TH/MM3 Red Blood Count 3.74 MIL/MM3 Hemoglobin 10.3 GM/DL Hematocrit 32.7 % Mean Corpuscular Volume 87.5 FL Mean Corpuscular Hemoglobin 27.4 PG Mean Corpuscular Hemoglobin 31.4 % Concent Red Cell Distribution Width 21.4 % Platelet Count 328 TH/MM3 Mean Platelet Volume 7.2 FL Neutrophils (%) (Auto) 66.8 % Lymphocytes (%) (Auto) 18.3 % Monocytes (%) (Auto) 11.1 % Eosinophils (%) (Auto) 3.3 % Basophils (%) (Auto) 0.5 % Neutrophils # (Auto) 5.6 TH/MM3 Lymphocytes # (Auto) 1.5 TH/MM3 Monocytes # (Auto) 0.9 TH/MM3 Eosinophils # (Auto) 0.3 TH/MM3 Basophils # (Auto) 0.0 TH/MM3 CBC Comment DIFF FINAL Differential Comment Prothrombin Time 10.4 SEC Prothromb Time International 0.9 RATIO Ratio Activated Partial 27.2 SEC Thromboplast Time Sodium Level 141 MEQ/L Potassium Level 4.1 MEQ/L Chloride Level 107 MEQ/L Carbon Dioxide Level 27.0 MEQ/L Anion Gap 7 MEQ/L Blood Urea Nitrogen 19 MG/DL Creatinine 0.71 MG/DL Estimat Glomerular Filtration 109 ML/MIN Rate Random Glucose 88 MG/DL Calcium Level 9.1 MG/DL Total Bilirubin 0.2 MG/DL Aspartate Amino Transf 18 U/L (AST/SGOT) Alanine Aminotransferase 13 U/L (ALT/SGPT) Alkaline Phosphatase 101 U/L Total Protein 7.3 GM/DL Albumin 2.8 GM/DL Lab work is without acute concern. Chest x-ray shows no acute disease. A call has been placed in the [facility] for admission. Diagnosis Primary Impression: Osteomyelitis of left foot Qualified Code: M86.9 - Osteomyelitis of left foot, unspecified type Admitting Information Admitting Physician Requests: Admit Condition: Stable DubonDanielle hood ANDREA Jul 02, 2017 14:45
[2017-07-02 14:47] VITALS: BP 182/92; PULSE 57; RESP 18; O2SAT 100
[2017-07-02 14:59] LABS: AUTOMATED NEUTROPHIL # 5.6 TH/MM3 (1.8-7.7); BASOPHIL % 0.5 % (0.0-2.0); EOSINOPHIL # 0.3 TH/MM3 (0-0.4); EOSINOPHIL % 3.3 % (0.0-4.0); HEMATOCRIT 32.7 % (39.0-51.0); HEMO FLAGS DIFF FINAL; LYMPH % 18.3 % (9.0-44.0); LYMPHOCYTE # 1.5 TH/MM3 (1.0-4.8); MEAN CELL VOLUME 87.5 FL (80.0-100.0); MEAN CORPUSCULAR HEMOGLOBIN 27.4 PG (27.0-34.0); MEAN CORPUSCULAR HGB CONC 31.4 % (32.0-36.0); MONO % 11.1 % (0.0-8.0); NEUT % 66.8 % (16.0-70.0); PLATELET COUNT 328 TH/MM3 (150-450); RED BLOOD COUNT 3.74 MIL/MM3 (4.50-5.90); RED CELL DISTRIBUTION WIDTH 21.4 % (11.6-17.2); WHITE BLOOD COUNT 8.4 TH/MM3 (4.0-11.0)
[2017-07-02 15:06] LABS: ANION GAP 7 MEQ/L (5-15); AST (GOT) 18 U/L (15-37); BLOOD UREA NITROGEN 19 MG/DL (7-18); CHLORIDE 107 MEQ/L (98-107); GLOMERULAR FILTRATION RATE 109 ML/MIN (>89); POTASSIUM 4.1 MEQ/L (3.5-5.1); SODIUM (NA) 141 MEQ/L (136-145)
[2017-07-02 15:14] LABS: ALKALINE PHOSPHATASE 101 U/L (45-117); ALT (GPT) 13 U/L (12-78); TOTAL BILIRUBIN ADULT 0.2 MG/DL (0.2-1.0)
[2017-07-02 15:16] LABS: APTT (PATIENT) 27.2 SEC (24.3-30.1); INTERNATIONAL NORMALIZED RATIO 0.9 RATIO; PROTHROMBIN TIME - PATIENT 10.4 SEC (9.8-11.6)
[2017-07-02] MEDS ORDERED: SODIUM CHLORIDE 0.9% FLUSH 10 ML FLUSH IV FLUSH PRN ×2 (16:45→18:15)
[2017-07-02 17:00] VITALS: BP 190/83; PULSE 87; RESP 18; O2SAT 97
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
[2017-07-02] MEDS ORDERED: BISACODYL 10 MG SUPP RECTAL PRN (18:15)
[2017-07-02] MEDS ORDERED: NALOXONE HCL 0.4 MG/ML AMP IV PRN ×2 (18:15→18:30)
[2017-07-02] MEDS ORDERED: SENNOSIDES 8.6 MG TAB PO PRN (18:15)
[2017-07-02] MEDS ORDERED: LACTULOSE SYRUP 20 GM/30 ML CUP PO PRN (18:15)
[2017-07-02] MEDS ORDERED: MAGNESIUM HYDROXIDE SUSP 30 ML CUP PO PRN (18:15)
[2017-07-02] MEDS ORDERED: ACETAMINOPHEN 325 MG TAB PO PRN (18:30)
[2017-07-02] MEDS ORDERED: ACETAMINOPHEN/HYDROcodone 325 MG/5 MG TAB PO PRN (18:30)
[2017-07-02] MEDS ORDERED: traMADol HCL 50 MG TAB PO PRN (19:30)
[2017-07-02 20:00] VITALS: BP 175/105; PULSE 78; RESP 18; TEMP 98.4; O2SAT 95
[2017-07-02] MEDS: LATANOPROST 0.005% OPHT SOLN 2.5 ML BTL EACH EYE SCH (21:00)
[2017-07-02] MEDS: DOCUSATE SODIUM 50 MG/SENNA 8.6 MG TAB PO SCH (21:00)
[2017-07-02] MEDS ORDERED: SODIUM CHLORIDE 0.9% FLUSH 10 ML FLUSH IV FLUSH SCH ×2 (21:00)
[2017-07-02] MEDS: DILTIAZEM-CD 240 MG CAP ER PO SCH (22:10)
[2017-07-02] MEDS: ENOXAPARIN SODIUM 40 MG/0.4 ML SYRINGE SQ SCH (22:10)
[2017-07-02] MEDS: DONEPEZIL HCL 5 MG TAB PO SCH (22:11)
[2017-07-02] MEDS: ATORVASTATIN 40 MG TAB PO SCH (22:11)
[2017-07-02] MEDS: LISINOPRIL 20 MG TAB PO SCH (22:13)
[2017-07-02] MEDS: FERROUS SULFATE 325 MG (65 MG ELEMENTAL IRON) TAB PO SCH (22:36)
[2017-07-02] MEDS: GABAPENTIN 100 MG CAP PO SCH (22:37)
[2017-07-03] VITALS (9 sets, daily range): BP systolic 118–181; BP diastolic 60–92; PULSE 62–94; RESP 18–19; TEMP 97.3–98.8; O2SAT 94–100
[2017-07-03] MEDS: SODIUM CHLOR 0.9% 1000 ML INJ 1,000 ML IV SCH ×3 (00:23→20:00)
[2017-07-03] MEDS ORDERED: hydrALAZINE HCL 10 MG TAB PO PRN (02:00)
[2017-07-03] MEDS: LACTOBACILLUS ACIDOPHILUS TAB PO SCH ×3 (08:00→17:32)
[2017-07-03] MEDS ORDERED: BUPIVACAINE HCL PF 0.5% 30 ML VIAL ONE (08:02)
[2017-07-03] MEDS ORDERED: LIDOCAINE HCL 1% 50 ML VIAL ONE (08:02)
[2017-07-03] MEDS: DOCUSATE SODIUM 50 MG/SENNA 8.6 MG TAB PO SCH ×2 (09:00→20:14)
[2017-07-03] MEDS: ASCORBIC ACID 500 MG TAB PO SCH (09:00)
[2017-07-03] MEDS: ASPIRIN 81 MG CHEW TAB CHEW SCH (09:00)
[2017-07-03] MEDS: FERROUS SULFATE 325 MG (65 MG ELEMENTAL IRON) TAB PO SCH ×2 (09:00→17:32)
[2017-07-03] MEDS: CITALOPRAM HYDROBROMIDE 40 MG TAB PO SCH (09:00)
[2017-07-03] MEDS: GABAPENTIN 100 MG CAP PO SCH ×3 (09:00→17:32)
[2017-07-03] MEDS: DILTIAZEM-CD 240 MG CAP ER PO SCH ×2 (09:00→20:14)
--- NOTE | 2017-07-03 09:06 | HHI.FPPN ---
Subjective Remarks Patient reports that he is in a lot of pain. 08/25. Says that "I cannot take this" and that "I am going to leave if nothing is done." He denies SOB, CP, palpitations, vision changes, weakness, fevers, chills, or confusion. (Eliud Calero MD, R3) Objective Vitals Vital Signs Date Time Temp Pulse Resp B/P Pulse Ox O2 Delivery O2 Flow Rate FiO2 07/03/17 04:00 97.3 67 18 167/68 98 07/03/17 00:00 98.3 76 18 167/92 95 07/02/17 20:00 98.4 78 18 175/105 95 07/02/17 17:00 87 18 190/83 97 Room Air 07/02/17 14:47 57 18 182/92 100 Room Air 07/02/17 14:37 66 18 07/02/17 09:32 97.8 65 16 131/60 100 I/O 07/02/17 07/02/17 07/02/17 07/03/17 07/03/17 07/03/17 06:59 14:59 22:59 06:59 14:59 22:59 Intake Total 500 ml Balance 500 ml Intake IV Total 500 ml # Voids 2 3 (Eliud Calero MD, R3) Result Diagram: 07/02/17 1335 07/02/17 1335 A/P Assessment and Plan 71 yo male with PMH of HTN, peripheral vascular disease presenting with: ( Eliud Calero MD, R3) Attending Attestation Patient seen and examined. Case reviewed and discussed with Dr. Calero Agree with plan of care as discussed with me and documented in the resident note. Spoke with patient and RN; pain under much better control ID consult pending, appreciate recs Await culture/path results. (Lizeth Sierra MD) Problem List: (1) Osteomyelitis of left foot Status: Acute Plan: Diagnosed by tagged white blood cell scan performed by genetics physician outside of the hospital No clinical evidence of systemic infection or sepsis - Consult genetics physician Dr. Arvizu, appreciate recommendations - Debridement with Bx and Cx performed on 07/03 - No need for empiric antibiotics at this time; plan is source control as above - Begin empiric antibiotics if signs/Sx of systemic illness develop - Consult infectious disease for therapy recommendations after surgery (per protocol) - Wound care - PT eval & treat (after surgery) (2) HTN (hypertension) Status: Chronic Plan: Normal on ED arrival but significantly elevated on physician evaluation - continue home diltiazem ER and lisinopril - consider PRN antihypertensive medication if still hypertensive > 180/100 despite home meds (takes PM doses) (3) COPD (chronic obstructive pulmonary disease) Status: Chronic Plan: Wheezing on exam start duonebs q 6 hr while awake. (4) Hyperlipidemia Status: Chronic Plan: Continue home statin (5) Glaucoma Status: Chronic Plan: Continue home prostaglandin eye drops (6) Neuropathy Status: Chronic Plan: Continue home gabapentin (7) FEN/PPX Status: Acute Plan: Fluids: d/c ivf tolerating whole meals. Elecs: Monitor and replete as needed Nutrition: Regular diet, NPO after midnight w/ PO meds DVT: Lovenox 40 mg SQ daily Pain: [place] 5-325 x 1 pain 1-5, 2 tablets pain 6-10. Has tolerated this medication at home and in the hospital. Dementia: continue home Aricept; delirium precautions Code status: Full code (Eliud Calero MD, R3) Problem Qualifiers (1) Osteomyelitis of left foot: Qualified Code: M86.9 - Osteomyelitis of left foot, unspecified type (2) HTN (hypertension): Qualified Code: I10 - Essential hypertension (3) COPD (chronic obstructive pulmonary disease): Qualified Code: J44.9 - Chronic obstructive pulmonary disease, unspecified COPD type (4) Hyperlipidemia: Qualified Code: E78.5 - Hyperlipidemia, unspecified hyperlipidemia type (5) Glaucoma: Qualified Code: H40.9 - Glaucoma, unspecified glaucoma type, unspecified laterality Eliud Calero MD, R3 Jul 03, 2017 09:06 Lizeth Sierra MD Jul 03, 2017 22:41
[2017-07-03] MEDS ORDERED: BUPIVACAINE HCL PF 0.5% 30 ML VIAL INFIL ONE (09:12)
--- NOTE | 2017-07-03 09:13 | EKG ---
Date Performed: 07/02/2017 Time Performed: 13:51:31 PTAGE: 71 years EKG: ECTOPIC ATRIAL BRADYCARDIA RIGHT BUNDLE BRANCH BLOCK ABNORMAL ECG Compared to prior tracing no significant change PREVIOUS TRACING : 04/17/2017 21.37 DOCTOR: Yo Armstrong Interpretating Date/Time 07/03/2017 09:12:50
--- NOTE | 2017-07-03 10:01 | PD.OP ---
Operative Report Date of Surgery: Jul 03, 2017 Preoperative Diagnosis: (1) Osteomyelitis of left foot Left medial sesamoid Postoperative Diagnosis: (1) Osteomyelitis of left foot Left medial sesamoid Procedure: Excision of first metatarsal head and medial sesamoid left foot Anesthesia: Gen. Inhalation Surgeon: Gamal Arvizu DPM Community Sports Coordinator(s): Joshua ADEN Operation and Findings: Patient is brought to the operating room placed on the operating table in supine position. Pneumatic ankle cuff was placed around the patient's left ankle after adequate web roll padding. Patient was given general inhalation anesthesia and left foot was prepped and draped in the usual sterile manner. Should be noted that the patient had osteomyelitis of the medial sesamoid is demonstrated on a Ceretec labeled white blood cell scan. Patient also had a medial ulceration overlying the head of the first metatarsal. Left lower extremity was elevated above the operating table for a period of 3 minutes at which time the pneumatic ankle cuff was inflated to 250 mmHg. The left foot was lowered to the operating table and attention was directed to the first MPJ of the left foot. At this time a 4 cm linear incision was made medial to the extensor hallucis longus tendon through the skin and down to bone of the first MPJ. Using sharp and blunt dissection the head of the first metatarsal was freed up. All superficial bleeding vessels were identified and ligated or bovied. Using an oscillating saw the head of the first metatarsal was resected. Identification of the medial sesamoid was made and using sharp dissection the sesamoid bone was removed. It was resected and half was sent to pathology and half was sent for culture and sensitivity. There is flushed with copious amounts of sterile saline. The first MPJ capsule was pursestring into the space. Subcutaneous tissue was closed with 2-0 Vicryl. Skin edges were reapproximated and closed with 3-0 Prolene. The incision was dressed with Adaptic 4 x 4's and Jean and the pneumatic ankle cuff was deflated at the 35 minute lita and the vascular status returned to all digits of the left foot. Sponge and instrument counts were noted to be correct. Estimated blood loss was less than 10 cc. Bone of the first metatarsal and the medial sesamoid was sent for pathology. Bone from the medial sesamoid was sent for culture and sensitivity. The area was anesthetized with 10 cc of 0.5% Marcaine. Patient tolerated the procedures and anesthesia well and left the OR to PACU in apparent satisfactory condition with all vital signs stable endovascular status intact to the left foot Gamal Arvizu DPM Jul 03, 2017 10:01
[2017-07-03] MEDS ORDERED: Post-op Orders (for Pharmacy) MISC XX ONE (10:04)
[2017-07-03] MEDS ORDERED: DO NOT ADM ANY ANTICOAGULANT DRUGS PRN ×2 (10:04)
[2017-07-03] MEDS ORDERED: SODIUM CHLORIDE 0.9% FLUSH 10 ML FLUSH IV FLUSH PRN (10:15)
[2017-07-03] MEDS ORDERED: NALOXONE HCL 0.4 MG/ML AMP IV PRN (10:15)
[2017-07-03] MEDS ORDERED: traMADol HCL 50 MG TAB PO PRN ×2 (10:15)
[2017-07-03] MEDS ORDERED: fentaNYL CITRATE 250 MCG/5 ML AMP ONE (10:23)
[2017-07-03] MEDS ORDERED: MIDAZOLAM HCL 2 MG/2 ML VIAL ONE (10:23)
[2017-07-03] MEDS: ACETAMINOPHEN 1000 MG/100 ML VIAL IV SCH ×3 (11:00→23:50)
--- NOTE | 2017-07-03 11:39 | RADRPT ---
EXAM DATE/TIME: 07/03/2017 10:08 [facility] COMPARISON: FOOT LEFT COMPLETE ([id number]), February 11, 2017, 15:49. INDICATIONS : Post-op left foot for treatment of osteomyelitis in the first metatarsal.. MEDICAL HISTORY : Hypertension. SURGICAL HISTORY : None. ENCOUNTER: Initial ACUITY: 1 day PAIN SCORE: Non-responsive. LOCATION: Left foot FINDINGS: AP, lateral and oblique views of the left foot were obtained and demonstrate interval surgical amputa tion of the distal portion of the first metatarsal. There is mild soft tissue swelling and gas in thi s region. The lateral sesamoid remains and appears intact. The distal and proximal first phalanges ap pear intact. There is an old fracture deformity of the second proximal phalanx. There is mild osteope vamshi and degenerative joint changes. CONCLUSION: Suspected post operative changes status post amputation of the distal portion of the first metatarsal . Дмитрий Hoyos MD on July 03, 2017 at 11:35 Board Certified Radiologist. This report was verified electronically.
[2017-07-03] MEDS ORDERED: PROPOFOL 200 MG/20 ML AMP IV ONE (12:00)
[2017-07-03] MEDS ORDERED: PHENYLEPH/NS 1000 MCG/10 ML SYR IV ONE (12:00)
[2017-07-03] MEDS ORDERED: ePHEDrine/NS 25 MG/5 ML SYR IV ONE (12:00)
[2017-07-03] MEDS ORDERED: ONDANSETRON HCL 4 MG/2 ML VIAL IV PUSH ONE (12:00)
[2017-07-03] MEDS ORDERED: ACETAMINOPHEN/HYDROcodone 325 MG/5 MG TAB PO PRN (12:15)
[2017-07-03] MEDS: ACETAMINOPHEN/HYDROcodone 325 MG/5 MG TAB PO PRN ×2 (13:44→20:15)
--- NOTE | 2017-07-03 17:19 | MB ---
cc: CORDELL CESPEDES MD DATE OF CONSULTATION 07/03/[address] Rock REASON FOR CONSULTATION Osteomyelitis of the sesamoid bone of the left foot. The patient to undergo debridement, consult per protocol for therapy based on culture results. HISTORY OF PRESENT ILLNESS This is a 71-year-old white male who developed a non-healing wound of the first left metatarsal phalangeal joint. He underwent a white blood cell scan which showed osteomyelitis of the sesamoid. The patient was admitted and he underwent surgery today consisting of excision of the first metatarsal head and medial sesamoid of the left foot. The sample was sent for pathology. He has not been started on antibiotics. The patient has a history of C-difficile. The patient is laying in bed in no acute distress. He has no complaints except for pain in the left foot, which he says is greater than a 10/10 scale. The patient has multiple medical problems. He is afebrile. His white blood cell count is normal. PAST MEDICAL HISTORY 1. COPD, 2. Dementia, 3. Spinal stenosis, inoperable. 4. Chronic muscle spasms 5. TIA, 6. Glaucoma, 7. Hypertension, 8. History of shingles 9. History of multiple cancers on the scalp 10. Appendectomy, 11. Back surgery for ruptured disk, 12. Back surgery for arachnoiditis. 13. Left elbow surgery 14. Surgery on the right hand with pin placement in 1984 15. Penile implant 16. Back surgery for spinal stenosis 17. Cataract surgery. ALLERGIES PENICILLIN METRONIDAZOLE SULFA ERYTHROMYCIN ASPIRIN MORPHINE MEPERIDINE ACETAMINOPHEN MRI PRECAUTION SURGICAL TAPE MEDICATIONS 1. Bath 5 p.r.n. 2. Aspirin. 3. Celexa. 4. Vitamin C 5. Lactinex. 6. Lovenox. 7. Lipitor. 8. Cardizem. 9. Aricept. 10. Prinivil 11. Medina-Colace. 12. Neurontin. 13. Ferrous sulfate. SOCIAL HISTORY No tobacco, alcohol or illicit drugs. FAMILY HISTORY Noncontributory. REVIEW OF SYSTEMS Negative on 10-point review except for pain in the left foot. PHYSICAL EXAMINATION GENERAL: This is a slender well-developed male in no acute distress. He is awake, alert and oriented. VITAL SIGNS: Temperature 97.9, BP 161/70, respirations 18, heart rate 62. HEENT: Extraocular movements grossly intact, pupils reactive to light. No icterus. Oropharynx - no visible lesions. NECK: Supple without adenopathy or swelling. LUNGS: Decreased breath sounds throughout. No rhonchi. HEART: Regular rate and rhythm without murmurs, rubs or gallops. ABDOMEN: Bowel sounds present, soft, no tenderness appreciated. RECTAL: Not performed. EXTREMITIES: The left is postop from resection of the first metatarsal head. The other extremities have no clubbing, cyanosis or edema. SKIN: No rash. NEUROLOGIC: No gross focal findings. PSYCHIATRIC: The patient is calm and cooperative. LABORATORY DATA WBC 8.4, platelets 328, creatinine 0.71, estimated GFR 109, sodium 141. The wound culture is pending. IMPRESSION Osteomyelitis involving the left metatarsal head and sesamoid bone. Patient is status post resection of the bone and involved area of osteomyelitis. RECOMMENDATIONS In light of the fact that the patient has had very severe C-difficile in the past and the plan was to do surgery to resect the area of involved bone, we can await the culture results to determine if he will need antibiotics. If the culture has staph aureus or MRSA, then we can use vancomycin which should be a good option because of his history of C-difficile. Otherwise, if the pathology specimen shows that there is no involvement of the sample then we maybe could just observe without giving additional antibiotics. In any case, we will need to wait for the culture results and the pathology specimen results to make a decision on antibiotic going forward. If the wound has not been closed, a wound VAC may even be a good option instead of antibiotics. Thank you this consultation. Cordell Cespedes MD FD/ /4:20 PM /4:48 PM
[2017-07-03] MEDS: DONEPEZIL HCL 5 MG TAB PO SCH (20:14)
[2017-07-03] MEDS: LISINOPRIL 20 MG TAB PO SCH (20:15)
[2017-07-03] MEDS: LATANOPROST 0.005% OPHT SOLN 2.5 ML BTL EACH EYE SCH (20:16)
[2017-07-03] MEDS: ATORVASTATIN 40 MG TAB PO SCH (20:16)
[2017-07-03] MEDS: ENOXAPARIN SODIUM 40 MG/0.4 ML SYRINGE SQ SCH (20:16)
[2017-07-03] MEDS: SODIUM CHLORIDE 0.9% FLUSH 10 ML FLUSH IV FLUSH SCH (20:17)
[2017-07-03] MEDS: RESP: ALBUTEROL 2.5 MG/IPRATROPIUM 0.5 MG NEB (SCH) NEB (20:20)
[2017-07-03 20:41] LABS: BASOPHIL # 0.1 TH/MM3 (0-0.2); BASOPHIL % 0.8 % (0.0-2.0); EOSINOPHIL # 0.3 TH/MM3 (0-0.4); EOSINOPHIL % 3.8 % (0.0-4.0); HEMATOCRIT 28.8 % (39.0-51.0); HEMO FLAGS DIFF FINAL; LYMPH % 24.7 % (9.0-44.0); LYMPHOCYTE # 1.7 TH/MM3 (1.0-4.8); MEAN CELL VOLUME 83.9 FL (80.0-100.0); MEAN CORPUSCULAR HEMOGLOBIN 26.3 PG (27.0-34.0); MEAN CORPUSCULAR HGB CONC 31.4 % (32.0-36.0); MONO % 14.3 % (0.0-8.0); NEUT % 56.4 % (16.0-70.0); PLATELET COUNT 271 TH/MM3 (150-450); RED BLOOD COUNT 3.43 MIL/MM3 (4.50-5.90); RED CELL DISTRIBUTION WIDTH 20.5 % (11.6-17.2); WHITE BLOOD COUNT 7.1 TH/MM3 (4.0-11.0)
[2017-07-04] VITALS (8 sets, daily range): BP systolic 151–192; BP diastolic 67–89; PULSE 68–81; RESP 16–20; TEMP 97.9–100; O2SAT 92–100
[2017-07-04] MEDS: ACETAMINOPHEN/HYDROcodone 325 MG/5 MG TAB PO PRN ×6 (02:53→23:25)
[2017-07-04] MEDS ORDERED: cloNIDine HCL 0.1 MG TAB PO PRN (04:30)
[2017-07-04] MEDS: ACETAMINOPHEN 1000 MG/100 ML VIAL IV SCH (05:00)
[2017-07-04] MEDS: SODIUM CHLOR 0.9% 1000 ML INJ 1,000 ML IV SCH ×2 (05:39→16:00)
--- NOTE | 2017-07-04 06:03 | HHI.FPPN ---
Subjective Remarks Patient reports feeling "good." He also reports an episode where he went to stand out of bed to urinate, and bumped his left foot. This caused significant pain. At the same time he lost his IV, and started bleeding. Other than this, he feels well. Per nursing, his pain was well-controlled, and the patient no complaints. He reports using the restroom normally, no chest pain, shortness of breath, palpitations, or headaches. He is looking forward to working with physical therapy today. (Eliud Calero MD, R3) Objective Vitals Vital Signs Date Time Temp Pulse Resp B/P Pulse Ox O2 Delivery O2 Flow Rate FiO2 07/04/17 04:54 98.9 68 18 185/80 100 07/03/17 23:32 98.6 68 18 181/79 100 07/03/17 20:30 98.4 70 18 180/81 100 07/03/17 17:52 96 21 07/03/17 16:35 98.0 68 18 153/65 95 07/03/17 13:14 94 07/03/17 12:00 97.9 62 18 161/70 97 07/03/17 10:30 62 11 121/58 94 Room Air 07/03/17 10:15 63 11 126/60 98 Nasal Cannula 2 07/03/17 10:00 98.4 68 13 126/60 99 Nasal Cannula 4 I/O 07/03/17 07/03/17 07/03/17 07/04/17 07/04/17 07/04/17 06:59 14:59 22:59 06:59 14:59 22:59 Intake Total 500 ml 590 ml Output Total 10 ml 4 ml Balance 500 ml 580 ml -4 ml Intake Oral 240 ml IV Total 500 ml Other 350 ml Output Urine Total 4 ml Estimated Blood Loss 10 ml Other 0 ml # Voids 2 4 (Eliud Calero MD, R3) Result Diagram: 07/03/17 1949 07/02/17 1335 Objective Remarks Last 72 hours Impressions Foot X-Ray 07/03/17 0000 Signed Impressions: Service Date/Time: Monday, July 03, 2017 10:08 - CONCLUSION: Suspected post operative changes status post amputation of the distal portion of the first metatarsal. Дмитрий Hoyos MD Chest X-Ray 07/02/17 1244 Signed Impressions: Service Date/Time: June 13:16 - CONCLUSION: No acute disease. There is no evidence of pneumonia. Дмитрий Hoyos MD (Eliud Calero MD, R3) A/P Assessment and Plan 71 yo male with PMH of HTN, peripheral vascular disease presenting with: ( Eliud Calero MD, R3) Attending Attestation Patient seen and examined. Case reviewed and discussed with Dr. Calero. Agree with plan of care as discussed with me and documented in the resident note. Spoke with Jovanni, PT and patient regarding patient's plan of care Pain control improved, but medication wears off after 3 hours, will increase frequency. (Lizeth Sierra MD) Problem List: (1) Osteomyelitis of left foot Status: Acute Plan: Diagnosed by tagged white blood cell scan performed by calender operator outside of the hospital No clinical evidence of systemic infection or sepsis - Consult calender operator Dr. Arvizu, appreciate recommendations - Debridement with Bx and Cx performed on 07/03 - No need for empiric antibiotics at this time; plan is source control as above - Begin empiric antibiotics if signs/Sx of systemic illness develop - Consult infectious disease for therapy recommendations after surgery (per protocol) - Wound care - PT eval & treat (after surgery) (2) HTN (hypertension) Status: Chronic Plan: Normal on ED arrival but significantly elevated on physician evaluation - continue home diltiazem ER and lisinopril - consider PRN antihypertensive medication if still hypertensive > 180/100 despite home meds (takes PM doses) Has received clonidine 0.1 mg by mouth 1. His blood pressure still remains elevated at 180 systolic. We'll give hydralazine 25 mg by mouth 1. Continue with clonidine 0.1 mg if greater than 160 systolic every 4 hours. (3) COPD (chronic obstructive pulmonary disease) Status: Chronic Plan: Wheezing on exam start duonebs q 6 hr while awake. (4) Hyperlipidemia Status: Chronic Plan: Continue home statin (5) Glaucoma Status: Chronic Plan: Continue home prostaglandin eye drops (6) Neuropathy Status: Chronic Plan: Continue home gabapentin (7) FEN/PPX Status: Acute Plan: Fluids: d/c ivf tolerating whole meals. Elecs: Monitor and replete as needed Nutrition: Regular diet, NPO after midnight w/ PO meds DVT: Lovenox 40 mg SQ daily Pain: [place] 5-325 x 1 pain 1-5, 2 tablets pain 6-10. Has tolerated this medication at home and in the hospital. Dementia: continue home Aricept; delirium precautions Code status: Full code (Eliud Calero MD, R3) Problem Qualifiers (1) Osteomyelitis of left foot: Qualified Code: M86.9 - Osteomyelitis of left foot, unspecified type (2) HTN (hypertension): Qualified Code: I10 - Essential hypertension (3) COPD (chronic obstructive pulmonary disease): Qualified Code: J44.9 - Chronic obstructive pulmonary disease, unspecified COPD type (4) Hyperlipidemia: Qualified Code: E78.5 - Hyperlipidemia, unspecified hyperlipidemia type (5) Glaucoma: Qualified Code: H40.9 - Glaucoma, unspecified glaucoma type, unspecified laterality Eliud Calero MD, R3 Jul 04, 2017 06:03 Lizeth Sierra MD Jul 04, 2017 15:26
[2017-07-04] MEDS ORDERED: hydrALAZINE HCL 25 MG TAB PO ONE (08:00)
[2017-07-04] MEDS: RESP: ALBUTEROL 2.5 MG/IPRATROPIUM 0.5 MG NEB (SCH) NEB ×3 (08:39→19:49)
[2017-07-04 08:55] LABS: AUTOMATED NEUTROPHIL # 5.3 TH/MM3 (1.8-7.7); BASOPHIL % 0.6 % (0.0-2.0); EOSINOPHIL # 0.3 TH/MM3 (0-0.4); EOSINOPHIL % 3.2 % (0.0-4.0); HEMATOCRIT 31.8 % (39.0-51.0); HEMO FLAGS DIFF FINAL; LYMPH % 19.1 % (9.0-44.0); LYMPHOCYTE # 1.6 TH/MM3 (1.0-4.8); MEAN CELL VOLUME 84.4 FL (80.0-100.0); MEAN CORPUSCULAR HEMOGLOBIN 26.8 PG (27.0-34.0); MEAN CORPUSCULAR HGB CONC 31.7 % (32.0-36.0); MONO % 13.8 % (0.0-8.0); NEUT % 63.3 % (16.0-70.0); PLATELET COUNT 269 TH/MM3 (150-450); RED BLOOD COUNT 3.77 MIL/MM3 (4.50-5.90); RED CELL DISTRIBUTION WIDTH 19.8 % (11.6-17.2); WHITE BLOOD COUNT 8.3 TH/MM3 (4.0-11.0)
[2017-07-04] MEDS: DOCUSATE SODIUM 50 MG/SENNA 8.6 MG TAB PO SCH ×2 (09:00→21:00)
[2017-07-04] MEDS: SODIUM CHLORIDE 0.9% FLUSH 10 ML FLUSH IV FLUSH SCH ×2 (09:00→21:00)
[2017-07-04] MEDS: DILTIAZEM-CD 240 MG CAP ER PO SCH ×2 (09:27→20:59)
[2017-07-04] MEDS: GABAPENTIN 100 MG CAP PO SCH ×3 (09:27→19:17)
[2017-07-04] MEDS: ASCORBIC ACID 500 MG TAB PO SCH (09:28)
[2017-07-04] MEDS: FERROUS SULFATE 325 MG (65 MG ELEMENTAL IRON) TAB PO SCH ×2 (09:29→19:17)
[2017-07-04] MEDS: ASPIRIN 81 MG CHEW TAB CHEW SCH (09:29)
[2017-07-04] MEDS: CITALOPRAM HYDROBROMIDE 40 MG TAB PO SCH (09:30)
[2017-07-04] MEDS: LACTOBACILLUS ACIDOPHILUS TAB PO SCH ×3 (09:30→16:37)
--- NOTE | 2017-07-04 10:09 | PD.POD ---
Subjective Podiatric Problems History of osteomyelitis left first MPJ Pain scale used: 0-10 numeric scale Pain score: 6 Remarks 71-year-old male with osteomyelitis of the left first MPJ now one day status post excision of the first metatarsal head and medial sesamoid. Patient is complaining of some pain. Patient get out of bed against instructions last night and it is foot. Past Med/Surg/Social History Past Medical History Endocrine: REPORTS HX OF: Diabetes mellitus, Graves disease Cardiovascular: REPORTS HX OF: Hypertension Gastrointestinal: REPORTS HX OF: Other GI history (prior GI bleed, pt finished c. diff treatment on friday 05/25) Musculoskeletal: REPORTS HX OF: Other musculoskeletal hx (L. shoulder pain worsen after his arm was injured in latest hospitalization) Cancer/Hematology: REPORTS HX OF: Anemia Past Surgical History Gastrointestinal: DENIES HX OF: Colectomy, total Social History Smoking Status: Former Smoker Review of Systems Notes Bony changes in his 14 point review of systems exam since his last visit was a surgical management Objective Vital Signs Vital Signs Date Time Temp Pulse Resp B/P Pulse Ox O2 Delivery O2 Flow Rate FiO2 07/04/17 08:40 92 21 07/04/17 08:00 97.9 72 16 182/79 96 07/04/17 04:54 98.9 68 18 185/80 100 07/03/17 23:32 98.6 68 18 181/79 100 07/03/17 20:30 98.4 70 18 180/81 100 07/03/17 17:52 96 21 07/03/17 16:35 98.0 68 18 153/65 95 07/03/17 13:14 94 07/03/17 12:00 97.9 62 18 161/70 97 07/03/17 10:30 62 11 121/58 94 Room Air 07/03/17 10:15 63 11 126/60 98 Nasal Cannula 2 Coded Allergies: Sulfa (Sulfonamide Antibiotics) (Verified Allergy, Severe, Anaphylaxis, ) metronidazole (Verified Allergy, Severe, Fever, colitis, 06/30/17) While being treated for Cdiff. Doubt if true allergy. penicillin G (Verified Allergy, Severe, Anaphylaxis, 06/30/17) sulfamethoxazole (Verified Allergy, Severe, Anaphylaxis, 06/30/17) trimethoprim (Verified Allergy, Severe, Anaphylaxis, 06/30/17) erythromycin base (Verified Allergy, Intermediate, Rash, 06/30/17) aspirin (Verified Allergy, Unknown, 07/02/17) oxycodone (Verified Allergy, Unknown, 07/03/17) PT states oxycodone is fine, but percodan is too strong MRI PRECAUTION (Verified Adverse Reaction, Severe, BLADDER STIMULATOR, ) BRAIN ONLY ON RECEIVE ONLY COIL, P.O. 01/11/17, DML *MDRO Multi-Drug Resistant Organism (Verified Adverse Reaction, Unknown, MRSA, 06/30/17) MRSA PCR (nares) POSITIVE - 01/11/17 MRSA (foot) 06/09/17, 06/16/17 acetaminophen (Verified Adverse Reaction, Unknown, Psychosis, 06/30/17) meperidine (Verified Adverse Reaction, Unknown, Psychosis, 06/30/17) morphine (Verified Adverse Reaction, Unknown, Psychosis, 06/30/17) Uncoded Allergies: surgical tape (Allergy, Severe, 12/15/13) Medications and IVs Current Medications Sodium Chloride (NS Flush) 2 ml UNSCH PRN IV FLUSH FLUSH AFTER USING IV ACCESS ; Start 07/02/17 at 16:45; Stop 07/03/17 at 10:12; Status DC Sodium Chloride (NS Flush) 2 ml BID IV FLUSH Last administered on 07/02/17 21: 00; Start 07/02/17 at 21:00; Stop 07/03/17 at 10:12; Status DC Aspirin (Aspirin Chew) 81 mg DAILY CHEW Last administered on 07/04/17 09:29; Start 07/03/17 at 09:00 Atorvastatin Calcium (Lipitor) 40 mg HS PO Last administered on 07/03/17 20:16 ; Start 07/02/17 at 21:00 Citalopram Hydrobromide (CeleXA) 60 mg DAILY PO Last administered on 07/04/17 09:30; Start 07/03/17 at 09:00 Diltiazem HCl (Cardizem Cd) 240 mg BID PO Last administered on 07/04/17 09:27 ; Start 07/02/17 at 21:00 Donepezil HCl (Aricept) 10 mg HS PO Last administered on 07/03/17 20:14; Start 07/02/17 at 21:00 Gabapentin (Neurontin) 100 mg TID PO Last administered on 07/04/17 09:27; Start 07/02/17 at 18:00 Lactobacillus Acidophilus (Lactinex) 1 tab TIDAC PO Last administered on 09:30; Start 07/03/17 at 08:00 Ascorbic Acid (Vitamin C) 1,000 mg DAILY PO Last administered on 07/04/17 09: 28; Start 07/03/17 at 09:00 Ferrous Sulfate (Ferrous Sulfate) 325 mg BIDPC PO NS Last administered on 09:29; Start 07/02/17 at 18:00 Lisinopril (Prinivil) 40 mg HS PO BPM Last administered on 07/03/17 20:15; Start 07/02/17 at 21:00 Latanoprost 1 drop 1 drop HS EACH EYE Glaucoma; Start 07/02/17 at 21:00 Sodium Chloride (NS 1000 ml Inj) 1,000 ml @ 100 mls/hr Q10H IV Last administered on 07/03/17 00:23; Start 07/03/17 at 00:00 Sodium Chloride (NS Flush) 2 ml UNSCH PRN IV FLUSH FLUSH AFTER USING IV ACCESS ; Start 07/02/17 at 18:15; Stop 07/02/17 at 18:44; Status DC Sodium Chloride (NS Flush) 2 ml BID IV FLUSH ; Start 07/02/17 at 21:00; Stop at 21:00; Status DC Naloxone HCl (Narcan Inj) 0.4 mg UNSCH PRN IV SEE LABEL COMMENTS; Start at 18:15; Stop 07/03/17 at 10:21; Status DC Senna/Docusate Sodium ([place]-Colace) 1 tab BID PO ; Start 07/02/17 at 21:00 Magnesium Hydroxide (Milk Of Magnesia Liq) 30 ml Q12H PRN PO MILD - MODERATE CONSTIPATION; Start 07/02/17 at 18:15 Sennosides (Senokot) 17.2 mg Q12H PRN PO MODERATE - SEVERE CONSTIPATION; Start 07/02/17 at 18:15 Bisacodyl (Dulcolax Supp) 10 mg DAILY PRN RECTAL SEVERE CONSITIPATION; Start at 18:15 Lactulose (Lactulose Liq) 30 ml DAILY PRN PO SEVERE CONSITIPATION; Start at 18:15 Acetaminophen (Tylenol) 650 mg Q6H PRN PO PAIN SCALE 3 TO 5; Start 07/02/17 at 18:30; Status Hold Naloxone HCl (Narcan Inj) 0.4 mg UNSCH PRN IV SEE LABEL COMMENTS; Start at 18:30; Stop 07/02/17 at 18:56; Status DC Acetaminophen/ Hydrocodone Bitart ([place] 5-325 Mg) 1 tab Q6H PRN PO PAIN SCALE 6 TO 10; Start 07/02/17 at 18:30; Stop 07/02/17 at 19:32; Status DC Tramadol HCl (Ultram) 50 mg Q6H PRN PO PAIN SCALE 6 TO 10; Start 07/02/17 at 19 :30; Stop 07/03/17 at 10:15; Status DC Enoxaparin Sodium (Lovenox Inj) 40 mg Q24H SQ Last administered on 07/03/17 20 :16; Start 07/02/17 at 22:00 Hydralazine HCl (Apresoline) 10 mg ONCE PRN PO SBP> OR = 180, DBP> OR = 100; Start 07/03/17 at 02:00; Stop 07/03/17 at 02:01; Status DC Bupivacaine HCl (Marcaine Pf 0.5% Inj) 30 ml STK-MED ONCE .ROUTE ; Start at 08:02; Stop 07/03/17 at 08:03; Status DC Lidocaine HCl (Xylocaine 1% Inj (50 ml)) 50 ml STK-MED ONCE .ROUTE ; Start 07/03 at 08:02; Stop 07/03/17 at 08:03; Status DC Bupivacaine HCl (Marcaine Pf 0.5% Inj) 30 ml STK-MED ONCE INFIL Last administered on 07/03/17 09:12; Start 07/03/17 at 09:12; Stop 07/03/17 at 09:46 ; Status DC Sodium Chloride (NS Flush) 2 ml UNSCH PRN IV FLUSH FLUSH AFTER USING IV ACCESS ; Start 07/03/17 at 10:15 Sodium Chloride (NS Flush) 2 ml BID IV FLUSH Last administered on 8/18/17at 20: 17; Start 07/03/17 at 21:00 Miscellaneous Information (Post-op Orders (for Pharmacy)) STAT ONCE XX ; Start 07/03/17 at 10:04; Stop 07/03/17 at 10:20; Status DC Acetaminophen (Ofirmev Inj) 1,000 mg Q6H IV Last administered on 07/03/17 23: 50; Start 07/03/17 at 11:00; Stop 07/04/17 at 05:01; Status DC Tramadol HCl (Ultram) 50 mg Q4H PRN PO PAIN SCALE 3 TO 5; Start 07/03/17 at 10: 15; Status Hold Tramadol HCl (Ultram) 100 mg Q4H PRN PO PAIN SCALE 6 TO 10; Start 07/03/17 at 10:15; Status Hold Naloxone HCl (Narcan Inj) 0.4 mg UNSCH PRN IV SEE LABEL COMMENTS; Start at 10:15 Midazolam HCl (Versed Inj) 2 mg STK-MED ONCE .ROUTE ; Start 07/03/17 at 10:23; Stop 07/03/17 at 10:24; Status DC Fentanyl Citrate (fentaNYL INJ) 250 mcg STK-MED ONCE .ROUTE ; Start 07/03/17 at 10:23; Stop 07/03/17 at 10:24; Status DC Miscellaneous Information ALL NURSING DEPARTME... UNSCH PRN .XX SEE LABEL COMMENTS; Start 07/03/17 at 10:04; Stop 07/04/17 at 10:03; Status DC Acetaminophen/ Hydrocodone Bitart ([place] 5-325 Mg) 1 tab Q6H PRN PO PAIN 1-5; Start 07/03/17 at 12:15 Acetaminophen/ Hydrocodone Bitart ([place] 5-325 Mg) 2 tab Q6H PRN PO PAIN 6-10 Last administered on 07/04/17 09:28; Start 07/03/17 at 12:15 Albuterol/ Ipratropium (Duoneb Neb) 1 ampule Q6HR WHILE AWAKE NEB NEB Last administered on 07/04/17 08:39; Start 07/03/17 at 14:00 Miscellaneous Information ALL NURSING DEPARTME... UNSCH PRN .XX SEE LABEL COMMENTS; Start 07/03/17 at 10:04; Stop 07/04/17 at 10:03; Status DC Clonidine (Catapres) 0.1 mg Q6H PRN PO SBP> OR = 180, DBP> OR = 100 Last administered on 07/04/17 05:39; Start 07/04/17 at 04:30; Stop 07/04/17 at 07:49 ; Status DC Clonidine (Catapres) 0.1 mg Q4HR PRN PO SBP> OR = 180, DBP> OR = 100; Start at 08:00 Hydralazine HCl (Apresoline) 25 mg ONCE ONCE PO Last administered on 09:29; Start 07/04/17 at 08:00; Stop 07/04/17 at 08:01; Status DC Other Results Laboratory Tests Test 07/02/17 07/03/17 07/04/17 13:35 19:49 08:00 White Blood Count 8.4 TH/MM3 7.1 TH/MM3 8.3 TH/MM3 Red Blood Count 3.74 MIL/MM3 3.43 MIL/MM3 3.77 MIL/MM3 Hemoglobin 10.3 GM/DL 9.0 GM/DL 10.1 GM/DL Hematocrit 32.7 % 28.8 % 31.8 % Mean Corpuscular Volume 87.5 FL 83.9 FL 84.4 FL Mean Corpuscular Hemoglobin 27.4 PG 26.3 PG 26.8 PG Mean Corpuscular Hemoglobin 31.4 % 31.4 % 31.7 % Concent Red Cell Distribution Width 21.4 % 20.5 % 19.8 % Platelet Count 328 TH/MM3 271 TH/MM3 269 TH/MM3 Mean Platelet Volume 7.2 FL 7.2 FL 8.0 FL Neutrophils (%) (Auto) 66.8 % 56.4 % 63.3 % Lymphocytes (%) (Auto) 18.3 % 24.7 % 19.1 % Monocytes (%) (Auto) 11.1 % 14.3 % 13.8 % Eosinophils (%) (Auto) 3.3 % 3.8 % 3.2 % Basophils (%) (Auto) 0.5 % 0.8 % 0.6 % Neutrophils # (Auto) 5.6 TH/MM3 4.0 TH/MM3 5.3 TH/MM3 Lymphocytes # (Auto) 1.5 TH/MM3 1.7 TH/MM3 1.6 TH/MM3 Monocytes # (Auto) 0.9 TH/MM3 1.0 TH/MM3 1.1 TH/MM3 Eosinophils # (Auto) 0.3 TH/MM3 0.3 TH/MM3 0.3 TH/MM3 Basophils # (Auto) 0.0 TH/MM3 0.1 TH/MM3 0.0 TH/MM3 CBC Comment DIFF FINAL DIFF FINAL DIFF FINAL Differential Comment Laboratory Tests Test 07/02/17 07/03/17 13:35 19:49 Sodium Level 141 MEQ/L Potassium Level 4.1 MEQ/L Chloride Level 107 MEQ/L Carbon Dioxide Level 27.0 MEQ/L Anion Gap 7 MEQ/L Blood Urea Nitrogen 19 MG/DL Creatinine 0.71 MG/DL Estimat Glomerular Filtration 109 ML/MIN Rate Random Glucose 88 MG/DL Calcium Level 9.1 MG/DL Total Bilirubin 0.2 MG/DL Aspartate Amino Transf 18 U/L (AST/SGOT) Alanine Aminotransferase 13 U/L (ALT/SGPT) Alkaline Phosphatase 101 U/L Total Protein 7.3 GM/DL Albumin 2.8 GM/DL B-Type Natriuretic Peptide 116 PG/ML Microbiology Date/Time Procedure Status Source Growth 07/03/17 09:30 Gram Stain - Final Resulted Wound Foot 07/03/17 09:30 Wound Culture Resulted Wound Foot Pending 07/03/17 09:30 Acid Fast Stain Received Wound Foot Pending 07/03/17 09:30 Mycobacterial Culture Received Wound Foot Pending 07/03/17 09:30 Fungal Smear Received Wound Foot Pending 07/03/17 09:30 Fungal Culture Received Wound Foot Pending 07/03/17 21:09 Aerobic Blood Culture Received Blood Peripheral Pending 07/03/17 21:09 Anaerobic Blood Culture Received Blood Peripheral Pending Exam-Podiatry Constitutional Nutritional status: normal Orientation: alert and oriented x3 Dermatological Exam Skin Temp - Right: Within Normal Limits Skin Texture - Right: Within Normal Limits Skin Elasticity - Right: Within Normal Limits Skin Tugor - Right: Within Normal Limits Hair Growth - Right: Within Normal Limits Pigmentation - Right: Within Normal Limits Skin Temp - Left: Within Normal Limits Skin Texture - Left: Within Normal Limits Skin Elasticity - Left: Within Normal Limits Skin Tugor - Left: Within Normal Limits Hair Growth - Left: Within Normal Limits Pigmentation - Left: Within Normal Limits Other: Scars, Surgery,Injury Dressing left foot is dry and intact. Toes warm, pink and [place] upon compression. Vascular/Lymphatic Exam R Dorsails Pedis: Palpable L Dorsails Pedis: Palpable R Posterior Tibial: Palpable L Posterior Tibial: Palpable Neurologic Exam Details Deferred Assessment & Plan Diagnosis: (1) Osteomyelitis of left foot Status: Acute A/P PLAN: I will change his dressing on Thursday. If surgical site looks skin he can be discharged home. Problem Qualifiers (1) Osteomyelitis of left foot: Qualified Code: M86.9 - Osteomyelitis of left foot, unspecified type Gamal Arvizu DPM Jul 04, 2017 10:09
[2017-07-04] MEDS: cloNIDine HCL 0.1 MG TAB PO PRN (12:51)
[2017-07-04] MEDS ORDERED: ACETAMINOPHEN/HYDROcodone 325 MG/5 MG TAB PO PRN (16:00)
[2017-07-04] MEDS: LISINOPRIL 20 MG TAB PO SCH (21:00)
[2017-07-04] MEDS: ATORVASTATIN 40 MG TAB PO SCH (21:00)
[2017-07-04] MEDS: DONEPEZIL HCL 5 MG TAB PO SCH (21:00)
[2017-07-04] MEDS: ENOXAPARIN SODIUM 40 MG/0.4 ML SYRINGE SQ SCH (21:03)
[2017-07-04] MEDS: LATANOPROST 0.005% OPHT SOLN 2.5 ML BTL EACH EYE SCH (23:25)
[2017-07-05] MEDS: SODIUM CHLOR 0.9% 1000 ML INJ 1,000 ML IV SCH ×2 (02:00→12:00)
[2017-07-05 04:00] VITALS: BP 143/66; PULSE 55; RESP 20; TEMP 97.2; O2SAT 95
[2017-07-05] MEDS: ACETAMINOPHEN/HYDROcodone 325 MG/5 MG TAB PO PRN ×5 (04:43→22:07)
[2017-07-05 05:20] LABS: BICARBONATE 27.6 MEQ/L (21.0-32.0); POTASSIUM 3.8 MEQ/L (3.5-5.1)
[2017-07-05 05:30] LABS: BASOPHIL # 0.1 TH/MM3 (0-0.2); BASOPHIL % 0.5 % (0.0-2.0); EOSINOPHIL # 0.1 TH/MM3 (0-0.4); EOSINOPHIL % 1.3 % (0.0-4.0); HEMATOCRIT 28.7 % (39.0-51.0); HEMO FLAGS DIFF FINAL; LYMPH % 16.7 % (9.0-44.0); LYMPHOCYTE # 1.8 TH/MM3 (1.0-4.8); MEAN CORPUSCULAR HEMOGLOBIN 26.7 PG (27.0-34.0); MEAN CORPUSCULAR HGB CONC 31.8 % (32.0-36.0); MONO % 14.8 % (0.0-8.0); NEUT % 66.7 % (16.0-70.0); PLATELET COUNT 297 TH/MM3 (150-450); RED BLOOD COUNT 3.42 MIL/MM3 (4.50-5.90); RED CELL DISTRIBUTION WIDTH 20.3 % (11.6-17.2); WHITE BLOOD COUNT 10.5 TH/MM3 (4.0-11.0)
[2017-07-05 07:56] VITALS: BP 155/71; PULSE 64; RESP 18; TEMP 98.5; O2SAT 93
[2017-07-05] MEDS: RESP: ALBUTEROL 2.5 MG/IPRATROPIUM 0.5 MG NEB (SCH) NEB ×3 (08:00→20:00)
[2017-07-05] MEDS: DOCUSATE SODIUM 50 MG/SENNA 8.6 MG TAB PO SCH ×2 (09:00→22:06)
[2017-07-05] MEDS: CITALOPRAM HYDROBROMIDE 40 MG TAB PO SCH (09:15)
[2017-07-05] MEDS: ASCORBIC ACID 500 MG TAB PO SCH (09:15)
[2017-07-05] MEDS: SODIUM CHLORIDE 0.9% FLUSH 10 ML FLUSH IV FLUSH SCH (09:15)
[2017-07-05] MEDS: FERROUS SULFATE 325 MG (65 MG ELEMENTAL IRON) TAB PO SCH ×2 (09:15→17:45)
[2017-07-05] MEDS: DILTIAZEM-CD 240 MG CAP ER PO SCH ×2 (09:15→22:06)
[2017-07-05] MEDS: ASPIRIN 81 MG CHEW TAB CHEW SCH (09:15)
[2017-07-05 12:00] VITALS: BP 159/70; PULSE 71; RESP 18; TEMP 98.5; O2SAT 97
[2017-07-05] MEDS: LACTOBACILLUS ACIDOPHILUS TAB PO SCH ×2 (13:16→17:47)
[2017-07-05] MEDS: GABAPENTIN 100 MG CAP PO SCH ×2 (13:17→17:45)
--- NOTE | 2017-07-05 13:18 | HHI.FPPN ---
Subjective Remarks Doing well - fever 100.0 last night but since resolved. Breathing comfortable. No chest pain. Stooling normally. Eating normally. Pain controlled with q 4. Waiting for podiatry recs. PT recommending home with [facility] or inpatient rehab. Objective Vitals Vital Signs Date Time Temp Pulse Resp B/P (MAP) Pulse Ox O2 Delivery O2 Flow Rate FiO2 07/05/17 12:00 98.5 71 18 159/70 (99) 97 07/05/17 07:56 98.5 64 18 155/71 (99) 93 07/05/17 04:00 97.2 55 20 143/66 (91) 95 07/04/17 23:43 99.5 75 18 151/67 (95) 95 07/04/17 20:00 100.0 81 20 189/89 (122) 100 192/82 (118) 07/04/17 19:50 96 21 07/04/17 16:00 99.1 73 16 159/70 (99) 93 I/O 07/04/17 07/04/17 07/04/17 07/05/17 07/05/17 07/05/17 07:00 15:00 23:00 07:00 15:00 23:00 Intake Total 1080 ml 120 ml Output Total 4 ml 100 ml Balance -4 ml 1080 ml 20 ml Intake Oral 1080 ml 120 ml Output Urine Total 4 ml 100 ml # Voids 3 1 # Bowel Movements 1 0 Result Diagram: 07/05/17 0430 07/05/17 0430 Objective Remarks Last 72 hours Impressions Foot X-Ray 07/03/17 0000 Signed Impressions: Service Date/Time: Monday, July 03, 2017 10:08 - CONCLUSION: Suspected post operative changes status post amputation of the distal portion of the first metatarsal. Димтрий Hoyos MD Chest X-Ray 07/02/17 1244 Signed Impressions: Service Date/Time: June 13:16 - CONCLUSION: No acute disease. There is no evidence of pneumonia. Дмитрий Hoyos MD GENERAL: Well-nourished, well-developed patient. No acute distress. SKIN: Warm and dry. No rash. EYES: No scleral icterus. No injection or drainage. PERRLA. EOMI. HENT: Normocephalic. Atraumatic. MMM. NECK: No visible JVD or lymphadenopathy. CARDIOVASCULAR: Warm and well perfused. RESPIRATORY: Normal respiratory effort. GASTROINTESTINAL: Abdomen nondistended. MUSCULOSKELETAL: Strength grossly WNL. BACK: Without obvious deformity. NEURO/PSYCH: Afocal. Awake, alert, and oriented x3. A/P Assessment and Plan 71 yo male with PMH of HTN, peripheral vascular disease presenting with: Problem List: (1) Osteomyelitis of left foot ICD Codes: M86.9 - Osteomyelitis, unspecified Status: Acute Plan: Diagnosed by tagged white blood cell scan performed by clinical laboratory medical director outside of the hospital No clinical evidence of systemic infection or sepsis - Consult clinical laboratory medical director Dr. Arvizu, appreciate recommendations - Debridement with Bx and Cx performed on 07/03 - No need for empiric antibiotics at this time; plan is source control as above - Begin empiric antibiotics if signs/Sx of systemic illness develop - Consult infectious disease for therapy recommendations after surgery (per protocol) - Wound care - PT eval & treat (2) HTN (hypertension) ICD Codes: I10 - Essential (primary) hypertension Status: Chronic Plan: Normal on ED arrival but significantly elevated on physician evaluation - continue home diltiazem ER and lisinopril - consider PRN antihypertensive medication if still hypertensive > 180/100 despite home meds (takes PM doses) Has received clonidine 0.1 mg by mouth 1. His blood pressure still remains elevated at 180 systolic. We'll give hydralazine 25 mg by mouth 1. Continue with clonidine 0.1 mg if greater than 160 systolic every 4 hours. (3) COPD (chronic obstructive pulmonary disease) ICD Codes: J44.9 - Chronic obstructive pulmonary disease Status: Chronic Plan: Wheezing on exam start duonebs q 6 hr while awake. (4) Hyperlipidemia ICD Codes: E78.5 - Hyperlipidemia Status: Chronic Plan: Continue home statin (5) Glaucoma ICD Codes: H40.9 - Glaucoma Status: Chronic Plan: Continue home prostaglandin eye drops (6) Neuropathy ICD Codes: G62.9 - Neuropathy Status: Chronic Plan: Continue home gabapentin (7) FEN/PPX Status: Acute Plan: Fluids: d/c ivf tolerating whole meals. Elecs: Monitor and replete as needed Nutrition: Regular diet, NPO after midnight w/ PO meds DVT: Lovenox 40 mg SQ daily Pain: [place] 5-325 x 1 pain 1-5, 2 tablets pain 6-10. Has tolerated this medication at home and in the hospital. Dementia: continue home Aricept; delirium precautions Code status: Full code Problem Qualifiers (1) Osteomyelitis of left foot: (2) HTN (hypertension): (3) COPD (chronic obstructive pulmonary disease): (4) Hyperlipidemia: (5) Glaucoma: Eliud Calero MD, R3 Jul 05, 2017 13:18
--- NOTE | 2017-07-05 13:19 | PD.POD ---
Subjective Podiatric Problems History of osteomyelitis left first MPJ Pain scale used: 0-10 numeric scale Pain score: 6 Remarks 71-year-old male with osteomyelitis of the left first MPJ now 2 days status post excision of the first metatarsal head and medial sesamoid. Patient is complaining of some pain. Patient states he is having a hard time ambulating nonweightbearing with walker. Past Med/Surg/Social History Past Medical History Endocrine: REPORTS HX OF: Diabetes mellitus, Graves disease Cardiovascular: REPORTS HX OF: Hypertension Gastrointestinal: REPORTS HX OF: Other GI history (prior GI bleed, pt finished c. diff treatment on friday 05/25) Musculoskeletal: REPORTS HX OF: Other musculoskeletal hx (L. shoulder pain worsen after his arm was injured in latest hospitalization) Cancer/Hematology: REPORTS HX OF: Anemia Past Surgical History Gastrointestinal: DENIES HX OF: Colectomy, total Social History Smoking Status: Former Smoker Review of Systems Notes No changes in his 14 point review of systems exam since yesterday Objective Vital Signs Vital Signs Date Time Temp Pulse Resp B/P (MAP) Pulse Ox O2 Delivery O2 Flow Rate FiO2 07/05/17 12:00 98.5 71 18 159/70 (99) 97 07/05/17 07:56 98.5 64 18 155/71 (99) 93 07/05/17 04:00 97.2 55 20 143/66 (91) 95 07/04/17 23:43 99.5 75 18 151/67 (95) 95 07/04/17 20:00 100.0 81 20 189/89 (122) 100 192/82 (118) 07/04/17 19:50 96 21 07/04/17 16:00 99.1 73 16 159/70 (99) 93 Coded Allergies: Sulfa (Sulfonamide Antibiotics) (Verified Allergy, Severe, Anaphylaxis, ) metronidazole (Verified Allergy, Severe, Fever, colitis, 06/30/17) While being treated for Cdiff. Doubt if true allergy. penicillin G (Verified Allergy, Severe, Anaphylaxis, 06/30/17) sulfamethoxazole (Verified Allergy, Severe, Anaphylaxis, 06/30/17) trimethoprim (Verified Allergy, Severe, Anaphylaxis, 06/30/17) erythromycin base (Verified Allergy, Intermediate, Rash, 06/30/17) aspirin (Verified Allergy, Unknown, 07/02/17) oxycodone (Verified Allergy, Unknown, 07/03/17) PT states oxycodone is fine, but percodan is too strong MRI PRECAUTION (Verified Adverse Reaction, Severe, BLADDER STIMULATOR, ) BRAIN ONLY ON RECEIVE ONLY COIL, P.O. 01/11/17, DML *MDRO Multi-Drug Resistant Organism (Verified Adverse Reaction, Unknown, MRSA, 06/30/17) MRSA PCR (nares) POSITIVE - 01/11/17 MRSA (foot) 06/09/17, 06/16/17 acetaminophen (Verified Adverse Reaction, Unknown, Psychosis, 06/30/17) meperidine (Verified Adverse Reaction, Unknown, Psychosis, 06/30/17) morphine (Verified Adverse Reaction, Unknown, Psychosis, 06/30/17) Uncoded Allergies: surgical tape (Allergy, Severe, 12/15/13) Medications and IVs Current Medications Sodium Chloride (NS Flush) 2 ml UNSCH PRN IV FLUSH FLUSH AFTER USING IV ACCESS ; Start 07/02/17 at 16:45; Stop 07/03/17 at 10:12; Status DC Sodium Chloride (NS Flush) 2 ml BID IV FLUSH Last administered on 07/02/17 21: 00; Start 07/02/17 at 21:00; Stop 07/03/17 at 10:12; Status DC Aspirin (Aspirin Chew) 81 mg DAILY CHEW Last administered on 07/04/17 09:29; Start 07/03/17 at 09:00 Atorvastatin Calcium (Lipitor) 40 mg HS PO Last administered on 07/04/17 21:00 ; Start 07/02/17 at 21:00 Citalopram Hydrobromide (CeleXA) 60 mg DAILY PO Last administered on 07/04/17 09:30; Start 07/03/17 at 09:00 Diltiazem HCl (Cardizem Cd) 240 mg BID PO Last administered on 07/04/17 20:59 ; Start 07/02/17 at 21:00 Donepezil HCl (Aricept) 10 mg HS PO Last administered on 07/04/17 21:00; Start 07/02/17 at 21:00 Gabapentin (Neurontin) 100 mg TID PO Last administered on 07/04/17 19:17; Start 07/02/17 at 18:00 Lactobacillus Acidophilus (Lactinex) 1 tab TIDAC PO Last administered on 16:37; Start 07/03/17 at 08:00 Ascorbic Acid (Vitamin C) 1,000 mg DAILY PO Last administered on 07/04/17 09: 28; Start 07/03/17 at 09:00 Ferrous Sulfate (Ferrous Sulfate) 325 mg BIDPC PO NS Last administered on 19:17; Start 07/02/17 at 18:00 Lisinopril (Prinivil) 40 mg HS PO BPM Last administered on 07/04/17 21:00; Start 07/02/17 at 21:00 Latanoprost (Xalatan 0.005% Opt Soln) 1 drop HS EACH EYE Glaucoma Last administered on 07/04/17 23:25; Start 07/02/17 at 21:00 Sodium Chloride 1,000 ml @ 100 mls/hr Q10H IV Last administered on 07/03/17 00:23; Start 07/03/17 at 00:00 Sodium Chloride (NS Flush) 2 ml UNSCH PRN IV FLUSH FLUSH AFTER USING IV ACCESS ; Start 07/02/17 at 18:15; Stop 07/02/17 at 18:44; Status DC Sodium Chloride (NS Flush) 2 ml BID IV FLUSH ; Start 07/02/17 at 21:00; Stop at 21:00; Status DC Naloxone HCl (Narcan Inj) 0.4 mg UNSCH PRN IV SEE LABEL COMMENTS; Start at 18:15; Stop 07/03/17 at 10:21; Status DC Senna/Docusate Sodium (Medina-Colace) 1 tab BID PO ; Start 07/02/17 at 21:00 Magnesium Hydroxide (Milk Of Magnesia Liq) 30 ml Q12H PRN PO MILD - MODERATE CONSTIPATION; Start 07/02/17 at 18:15 Sennosides (Senokot) 17.2 mg Q12H PRN PO MODERATE - SEVERE CONSTIPATION; Start 07/02/17 at 18:15 Bisacodyl (Dulcolax Supp) 10 mg DAILY PRN RECTAL SEVERE CONSITIPATION; Start at 18:15 Lactulose (Lactulose Liq) 30 ml DAILY PRN PO SEVERE CONSITIPATION; Start at 18:15 Acetaminophen (Tylenol) 650 mg Q6H PRN PO PAIN SCALE 3 TO 5; Start 07/02/17 at 18:30; Status Future Hold Naloxone HCl (Narcan Inj) 0.4 mg UNSCH PRN IV SEE LABEL COMMENTS; Start at 18:30; Stop 07/02/17 at 18:56; Status DC Acetaminophen/ Hydrocodone Bitart (Langlois 5-325 Mg) 1 tab Q6H PRN PO PAIN SCALE 6 TO 10; Start 07/02/17 at 18:30; Stop 07/02/17 at 19:32; Status DC Tramadol HCl (Ultram) 50 mg Q6H PRN PO PAIN SCALE 6 TO 10; Start 07/02/17 at 19 :30; Stop 07/03/17 at 10:15; Status DC Enoxaparin Sodium (Lovenox Inj) 40 mg Q24H SQ Last administered on 07/03/17t 20 :16; Start 07/02/17 at 22:00 Hydralazine HCl (Apresoline) 10 mg ONCE PRN PO SBP> OR = 180, DBP> OR = 100; Start 07/03/17 at 02:00; Stop 07/03/17 at 02:01; Status DC Bupivacaine HCl (Marcaine Pf 0.5% Inj) 30 ml STK-MED ONCE .ROUTE ; Start at 08:02; Stop 07/03/17 at 08:03; Status DC Lidocaine HCl (Xylocaine 1% Inj (50 ml)) 50 ml STK-MED ONCE .ROUTE ; Start 07/03 at 08:02; Stop 07/03/17 at 08:03; Status DC Bupivacaine HCl (Marcaine Pf 0.5% Inj) 30 ml STK-MED ONCE INFIL Last administered on 07/03/17 09:12; Start 07/03/17 at 09:12; Stop 07/03/17 at 09:46 ; Status DC Sodium Chloride (NS Flush) 2 ml UNSCH PRN IV FLUSH FLUSH AFTER USING IV ACCESS ; Start 07/03/17 at 10:15 Sodium Chloride (NS Flush) 2 ml BID IV FLUSH Last administered on 07/04/17 21: 00; Start 07/03/17 at 21:00 Miscellaneous Information (Post-op Orders (for Pharmacy)) STAT ONCE XX ; Start 07/03/17 at 10:04; Stop 07/03/17 at 10:20; Status DC Acetaminophen (Ofirmev Inj) 1,000 mg Q6H IV Last administered on 07/03/17t 23: 50; Start 07/03/17 at 11:00; Stop 07/04/17 at 05:01; Status DC Tramadol HCl (Ultram) 50 mg Q4H PRN PO PAIN SCALE 3 TO 5; Start 07/03/17 at 10: 15; Status Future Hold Tramadol HCl (Ultram) 100 mg Q4H PRN PO PAIN SCALE 6 TO 10; Start 07/03/17 at 10:15; Status Future Hold Naloxone HCl (Narcan Inj) 0.4 mg UNSCH PRN IV SEE LABEL COMMENTS; Start at 10:15 Midazolam HCl (Versed Inj) 2 mg STK-MED ONCE .ROUTE ; Start 07/03/17 at 10:23; Stop 07/03/17 at 10:24; Status DC Fentanyl Citrate (fentaNYL INJ) 250 mcg STK-MED ONCE .ROUTE ; Start 07/03/17 at 10:23; Stop 07/03/17 at 10:24; Status DC Miscellaneous Information ALL NURSING DEPARTME... UNSCH PRN .XX SEE LABEL COMMENTS; Start 07/03/17 at 10:04; Stop 07/04/17 at 10:03; Status DC Acetaminophen/ Hydrocodone Bitart (Langlois 5-325 Mg) 1 tab Q6H PRN PO PAIN 1-5; Start 07/03/17 at 12:15; Stop 07/04/17 at 12:32; Status DC Acetaminophen/ Hydrocodone Bitart (Langlois 5-325 Mg) 2 tab Q6H PRN PO PAIN 6-10 Last administered on 07/04/17 09:28; Start 07/03/17 at 12:15; Stop 07/04/17 at 12:32; Status DC Albuterol/ Ipratropium (Duoneb Neb) 1 ampule Q6HR WHILE AWAKE NEB NEB Last administered on 07/04/17 19:49; Start 07/03/17 at 14:00 Miscellaneous Information ALL NURSING DEPARTME... UNSCH PRN .XX SEE LABEL COMMENTS; Start 07/03/17 at 10:04; Stop 07/04/17 at 10:03; Status DC Clonidine (Catapres) 0.1 mg Q6H PRN PO SBP> OR = 180, DBP> OR = 100 Last administered on 07/04/17 05:39; Start 07/04/17 at 04:30; Stop 07/04/17 at 07:49 ; Status DC Clonidine (Catapres) 0.1 mg Q4HR PRN PO SBP> OR = 180, DBP> OR = 100 Last administered on 07/04/17 12:51; Start 07/04/17 at 08:00 Hydralazine HCl (Apresoline) 25 mg ONCE ONCE PO Last administered on 09:29; Start 07/04/17 at 08:00; Stop 07/04/17 at 08:01; Status DC Acetaminophen/ Hydrocodone Bitart (Langlois 5-325 Mg) 1 tab Q4HR PRN PO PAIN 1-5 ; Start 07/04/17 at 16:00 Acetaminophen/ Hydrocodone Bitart (Langlois 5-325 Mg) 2 tab Q4HR PRN PO PAIN 6- 10 Last administered on 07/05/17 04:43; Start 07/04/17 at 16:00 Other Results Laboratory Tests Test 07/03/17 19:49 07/04/17 08:00 07/05/17 04:30 White Blood Count 7.1 TH/MM3 8.3 TH/MM3 10.5 TH/MM3 Red Blood Count 3.43 MIL/MM3 3.77 MIL/MM3 3.42 MIL/MM3 Hemoglobin 9.0 GM/DL 10.1 GM/DL 9.1 GM/DL Hematocrit 28.8 % 31.8 % 28.7 % Mean Corpuscular Volume 83.9 FL 84.4 FL 84.0 FL Mean Corpuscular Hemoglobin 26.3 PG 26.8 PG 26.7 PG Mean Corpuscular Hemoglobin Concent 31.4 % 31.7 % 31.8 % Red Cell Distribution Width 20.5 % 19.8 % 20.3 % Platelet Count 271 TH/MM3 269 TH/MM3 297 TH/MM3 Mean Platelet Volume 7.2 FL 8.0 FL 7.2 FL Neutrophils (%) (Auto) 56.4 % 63.3 % 66.7 % Lymphocytes (%) (Auto) 24.7 % 19.1 % 16.7 % Monocytes (%) (Auto) 14.3 % 13.8 % 14.8 % Eosinophils (%) (Auto) 3.8 % 3.2 % 1.3 % Basophils (%) (Auto) 0.8 % 0.6 % 0.5 % Neutrophils # (Auto) 4.0 TH/MM3 5.3 TH/MM3 7.0 TH/MM3 Lymphocytes # (Auto) 1.7 TH/MM3 1.6 TH/MM3 1.8 TH/MM3 Monocytes # (Auto) 1.0 TH/MM3 1.1 TH/MM3 1.6 TH/MM3 Eosinophils # (Auto) 0.3 TH/MM3 0.3 TH/MM3 0.1 TH/MM3 Basophils # (Auto) 0.1 TH/MM3 0.0 TH/MM3 0.1 TH/MM3 CBC Comment DIFF FINAL DIFF FINAL DIFF FINAL Differential Comment Laboratory Tests Test 07/03/17 19:49 07/05/17 04:30 B-Type Natriuretic Peptide 116 PG/ML Blood Urea Nitrogen 15 MG/DL Creatinine 0.70 MG/DL Random Glucose 114 MG/DL Calcium Level 9.1 MG/DL Sodium Level 141 MEQ/L Potassium Level 3.8 MEQ/L Chloride Level 106 MEQ/L Carbon Dioxide Level 27.6 MEQ/L Anion Gap 7 MEQ/L Estimat Glomerular Filtration Rate 111 ML/MIN Microbiology Date/Time Source Procedure Growth Status 07/03/17 21:09 Blood Peripheral Aerobic Blood Culture - Preliminary NO GROWTH IN 2 DAYS Resulted 07/03/17 21:09 Blood Peripheral Anaerobic Blood Culture - Preliminary NO GROWTH IN 2 DAYS Resulted 07/03/17 09:30 Wound Foot Fungal Smear - Final NO FUNGAL ELEMENTS SEEN. Resulted 07/03/17 09:30 Wound Foot Fungal Culture Pending Resulted 07/03/17 09:30 Wound Foot Acid Fast Stain Pending Worksheet 07/03/17 09:30 Wound Foot Mycobacterial Culture Pending Worksheet 07/03/17 09:30 Wound Foot Gram Stain - Final Complete 07/03/17 09:30 Wound Culture - Final S. Aureus Mrsa Complete Exam-Podiatry Constitutional General appearance: comfortable Nutritional status: normal Orientation: alert and oriented x3, person, place, time Dermatological Exam Skin Temp - Right: Within Normal Limits Skin Texture - Right: Within Normal Limits Skin Elasticity - Right: Within Normal Limits Skin Tugor - Right: Within Normal Limits Hair Growth - Right: Within Normal Limits Pigmentation - Right: Within Normal Limits Skin Temp - Left: Within Normal Limits Skin Texture - Left: Within Normal Limits Skin Elasticity - Left: Within Normal Limits Skin Tugor - Left: Within Normal Limits Hair Growth - Left: Within Normal Limits Pigmentation - Left: Within Normal Limits Other: Scars, Surgery,Injury Surgical incision site well coapted. No purulence or signs of infection noted. Vascular/Lymphatic Exam R Dorsails Pedis: Palpable L Dorsails Pedis: Palpable R Posterior Tibial: Palpable L Posterior Tibial: Palpable Assessment & Plan Diagnosis: (1) Osteomyelitis of left foot ICD Codes: M86.9 - Osteomyelitis, unspecified Status: Acute A/P PLAN: Dressing change today under aseptic conditions. Okay to discharge home partial weightbearing left foot with walker. Alternative would be placement in [place] rehabilitation. No dressing changes until I see the patient again. No baths or showers. Problem Qualifiers (1) Osteomyelitis of left foot: Gamal Arvizu DPM Jul 05, 2017 13:19
[2017-07-05 16:00] VITALS: BP 175/77; PULSE 64; RESP 18; TEMP 98.6; O2SAT 98
[2017-07-05 20:00] VITALS: BP 177/74; PULSE 65; RESP 16; TEMP 99.2; O2SAT 96
[2017-07-05] MEDS: LATANOPROST 0.005% OPHT SOLN 2.5 ML BTL EACH EYE SCH (21:00)
[2017-07-05] MEDS: ENOXAPARIN SODIUM 40 MG/0.4 ML SYRINGE SQ SCH ×2 (22:00→22:06)
[2017-07-05] MEDS: ATORVASTATIN 40 MG TAB PO SCH (22:06)
[2017-07-05] MEDS: DONEPEZIL HCL 5 MG TAB PO SCH (22:06)
[2017-07-05] MEDS: LISINOPRIL 20 MG TAB PO SCH (22:07)
[2017-07-06] MEDS: cloNIDine HCL 0.1 MG TAB PO PRN (00:28)
[2017-07-06 00:57] VITALS: BP 190/84; PULSE 83; RESP 20; TEMP 98.7; O2SAT 96
[2017-07-06] MEDS: ACETAMINOPHEN/HYDROcodone 325 MG/5 MG TAB PO PRN ×3 (02:37→10:43)
[2017-07-06 05:59] VITALS: BP 123/68; PULSE 62; RESP 20; TEMP 98; O2SAT 95
[2017-07-06 08:00] VITALS: BP 166/74; PULSE 65; RESP 20; TEMP 98.3; O2SAT 94
[2017-07-06] MEDS: SODIUM CHLOR 0.9% 1000 ML INJ 1,000 ML IV SCH (08:00)
[2017-07-06] MEDS ORDERED: HYDR-3516 PO (08:59)
[2017-07-06] MEDS: SODIUM CHLORIDE 0.9% FLUSH 10 ML FLUSH IV FLUSH SCH (09:00)
[2017-07-06] MEDS: DOCUSATE SODIUM 50 MG/SENNA 8.6 MG TAB PO SCH (09:00)
--- NOTE | 2017-07-06 09:32 | HHI.FPPN ---
Subjective Remarks Patient is doing well, denies any fevers or chills. Pain in his left foot is well controlled. He denies any chest pain, shortness of breath. Tolerating whole meals. Regular bowel movements. Asking when he can go home. We spoke about starting vancomycin, and he refused this medication. He only wants to start antibiotics if prescribed by his dentist. He understands the risk of doing so. He reports having a follow-up appointment with Dr. Arvizu. He knows to keep his foot dry and elevated. (Eliud Calero MD, R3) Objective Vitals Vital Signs Date Time Temp Pulse Resp B/P (MAP) Pulse Ox O2 Delivery O2 Flow Rate FiO2 07/06/17 05:59 98.0 62 20 123/68 (86) 95 07/06/17 00:57 98.7 83 20 190/84 (119) 96 07/05/17 20:00 99.2 65 16 177/74 (108) 96 07/05/17 16:00 98.6 64 18 175/77 (109) 98 07/05/17 12:00 98.5 71 18 159/70 (99) 97 07/05/17 10:15 18 I/O 07/05/17 07/05/17 07/05/17 07/06/17 07/06/17 07/06/17 07:00 15:00 23:00 07:00 15:00 23:00 Intake Total 120 ml 480 ml Output Total 100 ml Balance 20 ml 480 ml Intake Oral 120 ml 480 ml Output Urine Total 100 ml # Voids 4 2 # Bowel Movements 0 1 (Eliud Calero MD, R3) Result Diagram: 07/05/17 0430 07/05/17 0430 Objective Remarks Last 72 hours Impressions Foot X-Ray 07/03/17 0000 Signed Impressions: Service Date/Time: Monday, July 03, 2017 10:08 - CONCLUSION: Suspected post operative changes status post amputation of the distal portion of the first metatarsal. Дмитрий Hoyos MD Chest X-Ray 07/02/17 1244 Signed Impressions: Service Date/Time: June 13:16 - CONCLUSION: No acute disease. There is no evidence of pneumonia. Дмитрий Hoyos MD GENERAL: Well-nourished, well-developed patient. No acute distress. SKIN: Warm and dry. No rash. EYES: No scleral icterus. No injection or drainage. PERRLA. EOMI. HENT: Normocephalic. Atraumatic. MMM. NECK: No visible JVD or lymphadenopathy. CARDIOVASCULAR: Warm and well perfused. RESPIRATORY: Normal respiratory effort. GASTROINTESTINAL: Abdomen nondistended. MUSCULOSKELETAL: Strength grossly WNL. BACK: Without obvious deformity. NEURO/PSYCH: Afocal. Awake, alert, and oriented x3. (Eliud Calero MD, R3) A/P Assessment and Plan 71 yo male with PMH of HTN, peripheral vascular disease presenting with: (Eliud Calero MD, R3) Attending Attestation THIS CASE WAS DISCUSSED WITH THE RESIDENT PHYSICIAN DR Velma CALERO MD. WE INTERVIEWED AND EXAMINED PATIENT TOGETHER,. I HAVE REVIEWED THE RECORD AND AGREE WITH THE ABOVE NOTE AND PLAN OF CARE WAS DISCUSSED. I HAVE AUTHORIZED THE ORDER FOR ADMISSION TO AN IN-PATIENT STATUS. (Abraham Haider MD) Problem List: (1) Osteomyelitis of left foot ICD Codes: M86.9 - Osteomyelitis, unspecified Status: Acute Plan: Diagnosed by tagged white blood cell scan performed by dentist outside of the hospital No clinical evidence of systemic infection or sepsis - Consult dentist Dr. Arvizu, appreciate recommendations - Debridement with Bx and Cx performed on 07/03 - No need for empiric antibiotics at this time; plan is source control as above - Begin empiric antibiotics if signs/Sx of systemic illness develop - Consult infectious disease for therapy recommendations after surgery (per protocol) - cultures from debridement showing MRSA, ID recommending vancomycin, however the patient is refusing this treatment. - Wound care - Check temperature twice a day. If grater than 100.4, call healthcare provider. - PT eval & treat -recommend home with home health, versus inpatient rehabilitation. The patient wants to go home. (2) HTN (hypertension) ICD Codes: I10 - Essential (primary) hypertension Status: Chronic Plan: Normal on ED arrival but significantly elevated on physician evaluation - continue home diltiazem ER and lisinopril - consider PRN antihypertensive medication if still hypertensive > 180/100 despite home meds (takes PM doses) Has received clonidine 0.1 mg by mouth 1. His blood pressure still remains elevated at 180 systolic. We'll give hydralazine 25 mg by mouth 1. Continue with clonidine 0.1 mg if greater than 160 systolic every 4 hours. Blood pressure remains elevated throughout the hospitalization, we'll start chlorthalidone on discharge. Follow-up with Dr. Samuel within 1 week. (3) COPD (chronic obstructive pulmonary disease) ICD Codes: J44.9 - Chronic obstructive pulmonary disease Status: Chronic Plan: Wheezing on exam start duonebs q 6 hr while awake. (4) Hyperlipidemia ICD Codes: E78.5 - Hyperlipidemia Status: Chronic Plan: Continue home statin (5) Glaucoma ICD Codes: H40.9 - Glaucoma Status: Chronic Plan: Continue home prostaglandin eye drops (6) Neuropathy ICD Codes: G62.9 - Neuropathy Status: Chronic Plan: Continue home gabapentin (7) FEN/PPX Status: Acute Plan: Fluids: d/c ivf tolerating whole meals. Elecs: Monitor and replete as needed Nutrition: Regular diet DVT: Lovenox 40 mg SQ daily Pain: Ferdinand 5-325 x 1 pain 1-5, 2 tablets pain 6-10. Has tolerated this medication at home and in the hospital. Dementia: continue home Aricept; delirium precautions Code status: Full code (Eliud Calero MD, R3) Problem Qualifiers (1) Osteomyelitis of left foot: (2) HTN (hypertension): (3) COPD (chronic obstructive pulmonary disease): (4) Hyperlipidemia: (5) Glaucoma: Eliud Calero MD, R3 Jul 06, 2017 09:32 Abraham Haider MD Jul 06, 2017 18:58
[2017-07-06] MEDS ORDERED: CHLO25TA2 PO (09:34)
--- NOTE | 2017-07-06 09:35 | HHI.FF ---
Face to Face Verification Diagnosis: (1) Osteomyelitis of foot, acute Physical Therapy Order: Evaluate and Treat, Improve ambulation, Strength and gait training Home Health Nursing Order: Medical education Medication education-adverse effect Wound care and dressing changes Nursing assessment with vital signs I have seen patient Jose GarciaSr on 07/06/17. My clinical findings support the need for the requested home health care services because: Ltd mobility - disease progression Med compliance is questionable Impaired cognition/judgement High risk of falls I certify that my clinical findings support that this patient is homebound because: Unsteady gait/balance Eliud Calero MD, R3 Jul 06, 2017 09:35 Lizeth Sierra MD Jul 06, 2017 09:55
--- NOTE | 2017-07-06 09:45 | HHI.DS ---
Discharge Summary Admission Date Jul 02, 2017 at 16:38 Admitting Diagnosis L foot osteomyelitis (1) Osteomyelitis of left foot Plan: Diagnosed by tagged white blood cell scan performed by drafter assistant outside of the hospital No clinical evidence of systemic infection or sepsis - Consult drafter assistant Dr. Arvizu, appreciate recommendations - Debridement with Bx and Cx performed on 07/03 - No need for empiric antibiotics at this time; plan is source control as above - Begin empiric antibiotics if signs/Sx of systemic illness develop - Consult infectious disease for therapy recommendations after surgery (per protocol) - cultures from debridement showing MRSA, ID recommending vancomycin, however the patient is refusing this treatment. - Wound care - Check temperature twice a day. If grater than 100.4, call healthcare provider. - PT eval & treat -recommend home with home health, versus inpatient rehabilitation. The patient wants to go home. ICD Codes: M86.9 - Osteomyelitis, unspecified Status: Acute (2) HTN (hypertension) Plan: Normal on ED arrival but significantly elevated on physician evaluation - continue home diltiazem ER and lisinopril - consider PRN antihypertensive medication if still hypertensive > 180/100 despite home meds (takes PM doses) Has received clonidine 0.1 mg by mouth 1. His blood pressure still remains elevated at 180 systolic. We'll give hydralazine 25 mg by mouth 1. Continue with clonidine 0.1 mg if greater than 160 systolic every 4 hours. Blood pressure remains elevated throughout the hospitalization, we'll start chlorthalidone on discharge. Follow-up with Dr. Samuel within 1 week. ICD Codes: I10 - Essential (primary) hypertension Status: Chronic (3) COPD (chronic obstructive pulmonary disease) Plan: Wheezing on exam start duonebs q 6 hr while awake. ICD Codes: J44.9 - Chronic obstructive pulmonary disease Status: Chronic (4) Hyperlipidemia Plan: Continue home statin ICD Codes: E78.5 - Hyperlipidemia Status: Chronic (5) Glaucoma Plan: Continue home prostaglandin eye drops ICD Codes: H40.9 - Glaucoma Status: Chronic (6) Neuropathy Plan: Continue home gabapentin ICD Codes: G62.9 - Neuropathy Status: Chronic (7) FEN/PPX Plan: Fluids: d/c ivf tolerating whole meals. Elecs: Monitor and replete as needed Nutrition: Regular diet DVT: Lovenox 40 mg SQ daily Pain: [place] 5-325 x 1 pain 1-5, 2 tablets pain 6-10. Has tolerated this medication at home and in the hospital. Dementia: continue home Aricept; delirium precautions Code status: Full code Status: Acute Brief History 71-year-old male with history of hypertension, COPD, chronic foot wounds due to peripheral vascular disease presenting due to osteomyelitis of the left foot, specifically the sesamoid bone, diagnosed by tagged white blood cell scan performed by his drafter assistant Dr. Arvizu. Patient feels clinically well. Denies fevers or chills. Endorses foot pain around the site of infection. Denies purulent drainage or redness or swelling of the area. CBC/BMP: 07/05/17 0430 07/05/17 0430 Significant Findings Laboratory Tests Test 07/03/17 19:49 07/04/17 08:00 07/05/17 04:30 Red Blood Count 3.43 MIL/MM3 (4.50-5.90) 3.77 MIL/MM3 (4.50-5.90) 3.42 MIL/MM3 (4.50-5.90) Hemoglobin 9.0 GM/DL (13.0-17.0) 10.1 GM/DL (13.0-17.0) 9.1 GM/DL (13.0-17.0) Hematocrit 28.8 % (39.0-51.0) 31.8 % (39.0-51.0) 28.7 % (39.0-51.0) Mean Corpuscular Hemoglobin 26.3 PG (27.0-34.0) 26.8 PG (27.0-34.0) 26.7 PG (27.0-34.0) Mean Corpuscular Hemoglobin Concent 31.4 % (32.0-36.0) 31.7 % (32.0-36.0) 31.8 % (32.0-36.0) Red Cell Distribution Width 20.5 % (11.6-17.2) 19.8 % (11.6-17.2) 20.3 % (11.6-17.2) Monocytes (%) (Auto) 14.3 % (0.0-8.0) 13.8 % (0.0-8.0) 14.8 % (0.0-8.0) Monocytes # (Auto) 1.0 TH/MM3 (0-0.9) 1.1 TH/MM3 (0-0.9) 1.6 TH/MM3 (0-0.9) B-Type Natriuretic Peptide 116 PG/ML (0-100) Random Glucose 114 MG/DL (74-106) PE at Discharge Last 72 hours Impressions Foot X-Ray 07/03/17 0000 Signed Impressions: Service Date/Time: Monday, July 03, 2017 10:08 - CONCLUSION: Suspected post operative changes status post amputation of the distal portion of the first metatarsal. Дмитрий Hoyos MD Chest X-Ray 07/02/17 1244 Signed Impressions: Service Date/Time: June 13:16 - CONCLUSION: No acute disease. There is no evidence of pneumonia. Дмитрий Hoyos MD GENERAL: Well-nourished, well-developed patient. No acute distress. SKIN: Warm and dry. No rash. EYES: No scleral icterus. No injection or drainage. PERRLA. EOMI. HENT: Normocephalic. Atraumatic. MMM. NECK: No visible JVD or lymphadenopathy. CARDIOVASCULAR: Warm and well perfused. RESPIRATORY: Normal respiratory effort. GASTROINTESTINAL: Abdomen nondistended. MUSCULOSKELETAL: Strength grossly WNL. BACK: Without obvious deformity. NEURO/PSYCH: Afocal. Awake, alert, and oriented x3. Hospital Course Patient is a 71-year-old male with a past medical history significant for left first metatarsal osteomyelitis, peritonitis/sepsis, cholecystitis, GI bleeding, C. difficile infection, left knee septic arthritis, elevated hemoglobin A1c, essential hypertension, and COPD, who was admitted for an elective left first metatarsal debridement, that was concerning for osteomyelitis on WBC uptake scan. Dr. Arvizu performed the surgery on 07/04/2017. Cultures from the surgery revealed MRSA. Infectious disease was consulted, and recommended vancomycin, however the patient refused. Physical therapy evaluated the patient , and recommended either inpatient shelter rehabilitation, or home with home health care. Throughout the hospitalization, he did not have any systemic signs of infection other than a temperature 100.0. He was discharged home in stable condition. He has a follow-up appointment with Dr. Arvizu, and should follow-up with Dr. Barrios within 3-5 days. Pt Condition on Discharge: Stable Discharge Disposition: Discharge Home Discharge Instructions DIET: Follow Instructions for: As Tolerated, No Restrictions Activities you can perform: Partial Weight Bearing Eliud Calero MD, R3 Jul 06, 2017 09:45
[2017-07-06] MEDS: CITALOPRAM HYDROBROMIDE 40 MG TAB PO SCH (10:09)
[2017-07-06] MEDS: ASCORBIC ACID 500 MG TAB PO SCH (10:10)
[2017-07-06] MEDS: GABAPENTIN 100 MG CAP PO SCH (10:10)
[2017-07-06] MEDS: DILTIAZEM-CD 240 MG CAP ER PO SCH (10:12)
[2017-07-06] MEDS: FERROUS SULFATE 325 MG (65 MG ELEMENTAL IRON) TAB PO SCH (10:12)
[2017-07-06] MEDS: LACTOBACILLUS ACIDOPHILUS TAB PO SCH ×2 (10:12→12:00)
[2017-07-06] MEDS: ASPIRIN 81 MG CHEW TAB CHEW SCH (10:13)
[2017-07-06] MEDS ORDERED: COMMODE BEDSIDE1 MI1 (13:25)
[2017-08-08] MEDS ORDERED: CYCL1TAB29 PO (11:20)
[2017-08-14] MEDS ORDERED: COLL30T TOPICAL (08:50)
[2017-08-14] MEDS ORDERED: LATA.005%O EACH EYE (08:50)
[2017-08-14] MEDS ORDERED: OXYC1TAB63 PO (08:50)
[2017-08-14] MEDS ORDERED: VANC1000P IV (08:50)
[2017-09-02] MEDS ORDERED: OXYC1TAB35 PO (09:01)
[2017-09-02] MEDS ORDERED: FENT25T T-DERMAL (09:01)
[2017-09-02] MEDS ORDERED: DILA2TAB2 PO (09:01)
[2017-09-02] MEDS ORDERED: VITA500T2 PO (12:47)
[2017-09-02] MEDS ORDERED: AMLO5 PO (12:47)
[2017-09-02] MEDS ORDERED: ARIC5TAB2 PO (12:47)
[2017-09-02] MEDS ORDERED: HYDR-3801 PO (12:47)
[2017-09-02] MEDS ORDERED: CLON.2 PO (12:47)
[2017-09-02] MEDS ORDERED: ACET1TAB86 PO (12:47)
[2017-09-02] MEDS ORDERED: SPIRCAP INH (12:47)
[2017-09-02] MEDS ORDERED: ATOR40TA16 PO (12:47)
[2017-09-02] MEDS ORDERED: SYMB160A INH (12:47)
[2017-09-02] MEDS ORDERED: ASPI-99 PO (12:47)
[2017-09-02] MEDS ORDERED: CELE20TA PO (12:47)
[2017-09-02] MEDS ORDERED: LATA.005%O EACH EYE (12:47)
[2017-09-02] MEDS ORDERED: PANT40TA3 PO (12:47)
[2017-09-02] MEDS ORDERED: LACT PO (12:47)
[2017-09-02] MEDS ORDERED: FERR325T20 PO (12:47)
[2017-09-02] MEDS ORDERED: LISI-515 PO (12:47)
[2017-09-02] MEDS ORDERED: guaiFENesin ER PO (12:47)
[2017-09-02] MEDS ORDERED: VENTAER INH (12:47)
[2017-09-02] MEDS ORDERED: GABA100C4 PO (12:47)
[2017-09-02] MEDS ORDERED: THERM PO (12:47)
[2017-09-02] MEDS ORDERED: CYCL1TAB29 PO (12:47)
[2017-09-02] MEDS ORDERED: COLL30T TOPICAL (12:47)
== END 2017-07-06 12:51 | disposition home or self-care (01) | DRG 505 ==
LOC: HOR 09:30 → NEDA 16:38 → N05A 19:11
PROVIDERS: ADMIT Family Medicine; ATTEND Family Medicine
PROC: 0QBP0ZZ Excision of Left Metatarsal, Open Approach (ICD-10-PCS; principal; 2017-07-03 08:56)
DX: M86.172 Other acute osteomyelitis, left ankle and foot (principal); G62.9 Polyneuropathy, unspecified; F03.90 Unspecified dementia, unspecified severity, without behavioral disturbance, psychotic disturbance, mood disturbance, and anxiety; B95.62 Methicillin resistant Staphylococcus aureus infection as the cause of diseases classified elsewhere; L98.492 Non-pressure chronic ulcer of skin of other sites with fat layer exposed; I70.25 Atherosclerosis of native arteries of other extremities with ulceration; J44.9 Chronic obstructive pulmonary disease, unspecified; F32.9 Major depressive disorder, single episode, unspecified; F41.9 Anxiety disorder, unspecified; H40.9 Unspecified glaucoma; R42 Dizziness and giddiness; H91.90 Unspecified hearing loss, unspecified ear; M62.838 Other muscle spasm; I10 Essential (primary) hypertension; E78.5 Hyperlipidemia, unspecified; M48.00 Spinal stenosis, site unspecified; Z87.891 Personal history of nicotine dependence; Z79.82 Long term (current) use of aspirin; D64.9 Anemia, unspecified; M25.512 Pain in left shoulder
CPT/HCPCS: 11042; 15275; 71010; 73630; 80048; 80053; 83880; 85025; 85610; 85730; 86403; 87015; 87040; 87070; 87102; 87116; 87147; 87186; 87205; 87206; 88304; 88305; 88311; 93005; 94640; 94664; 99285; J0131; J1650; J2250; J2370; J2405; J3010; J7030; L3260; Q4172

== ENCOUNTER 2017-07-14 00:28 | Inpatient (IN) | payer MEDICARE, OTHER ==
[~2017-07-14] VITALS: Ht 181.6 cm; Wt 88.7 kg
[2017-07-14] VITALS (30 sets, daily range): BP systolic 126–208; BP diastolic 60–110; PULSE 51–112; RESP 16–33; TEMP 97.3–101.2; O2SAT 96–100
[~2017-07-14 00:28] MED LIST changes: -ADVA500A INH; +CHLO25TA2 PO; +COMMODE BEDSIDE1 MI1; +HYDR-3516 PO; -IPRAAER INH; -OXYC1TAB63 PO
[2017-07-14] MEDS ORDERED: ETOMIDATE 40 MG/20 ML VIAL ONE (00:32)
[2017-07-14] MEDS ORDERED: PROPOFOL 1000 MG/100 ML INJ 100 ML ONE (00:35)
[2017-07-14] MEDS ORDERED: SODIUM CHLORIDE 0.9% FLUSH 5 ML FLUSH IV FLUSH PRN (00:45)
--- NOTE | 2017-07-14 01:21 | RADRPT ---
EXAM DATE/TIME: 07/14/2017 01:10 [facility] COMPARISON: CHEST SINGLE AP, July 02, 2017, 13:16. INDICATIONS : Post intubation. Altered mental status. MEDICAL HISTORY : Chronic obstructive pulmonary disease. Hypertension Pancreatitis. Dementia. SURGICAL HISTORY : None. ENCOUNTER: Initial ACUITY: 1 day PAIN SCORE: Non-responsive. LOCATION: Bilateral chest FINDINGS: Rotated and underinflated AP view of the chest demonstrates cardiac silhouette size within normal ayers its. Nasogastric tube courses beyond the GE junction. Endotracheal tube tip is at the aortic knob lev el measuring 6.6 cm from the joce. There is atelectasis at the lung bases. No pleural effusion or p neumothorax is seen. CONCLUSION: Endotracheal tube in appropriate position with tip measuring 6.6 cm from the joce. There is atelect asis at the lung bases. Jose Miller MD on July 14, 2017 at 1:18 Board Certified Radiologist. This report was verified electronically.
--- NOTE | 2017-07-14 01:27 | PD ---
HPI Chief Complaint: Altered Mental Status Time Seen by Provider: 00:43 Travel History International Travel<30 days: No Contact w/Intl Traveler<30days: No Traveled to known affect area: No History of Present Illness HPI 71yo M with PMH of HTN, COPD, HLD, recent left foot osteomyelitis presents to the ED with altered mental status today. As per , he had taken some flexeril and 1 oxycodone this morning. However, he went to sleep at around 2: 30pm and that was the last normal as per . At about 4pm, she noticed he was having difficulty breathing and also dosing off but did not decide to come to the ED until hours later. As per EVAC, a dose of narcan was given with no change in mental status. Pt had recent admission 07/02/17 for osteomyelitis of left metatarsal and had debridement and biopsy and culture by Dr. Arvizu on 07/03/17. Culture grew MRSA and ID recommended vancomycin but pt refused. 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) Dementia: Yes (MILD ) Diabetes: No Diminished Hearing: Yes (BILATERAL HEARING AIDS) Endocrine: No Gastrointestinal Disorders: Yes GERD: No Genitourinary: No Headaches: No Hiatal Hernia: No Heparin Induced Thrombocytopen: No Hypertension: Yes Immune Disorder: No Implanted Vascular Access Dvce: Yes Kidney Stones: Yes (MANY YEARS AGO;PASSED ) Musculoskeletal: Yes (ARTHRITIS, ) Neurologic: No Psychiatric: No Reproductive: No Respiratory: Yes Migraines: No Pancreatitis: Yes Radiation Therapy: No Renal Failure: No Seizures: No Sickle Cell Disease: No Sleep Apnea: No Thyroid Disease: No Ulcer: No Past Surgical History Abdominal Surgery: Yes AICD: No Appendectomy: Yes Arteriovenous Shunt: No Body Medical Devices: penile implant Cardiac Surgery: Yes (right endarectomy) Ear Surgery: No Endocrine Surgery: No Eye Surgery: Yes Genitourinary Surgery: Yes (lithotripsy) Gynecologic Surgery: No Insulin Pump: No Joint Replacement: No Neurologic Surgery: Yes Oral Surgery: Yes (mouth abscess ) Pacemaker: Yes (BLADDER STIMULATOR) Thoracic Surgery: No Other Surgery: Yes Social History Alcohol Use: No Tobacco Use: No Substance Use: No Allergies-Medications (Allergen,Severity, Reaction): Coded Allergies: Sulfa (Sulfonamide Antibiotics) (Verified Allergy, Severe, Anaphylaxis, ) metronidazole (Verified Allergy, Severe, Fever, colitis, 07/07/17) While being treated for Cdiff. Doubt if true allergy. penicillin G (Verified Allergy, Severe, Anaphylaxis, 07/07/17) sulfamethoxazole (Verified Allergy, Severe, Anaphylaxis, 07/07/17) trimethoprim (Verified Allergy, Severe, Anaphylaxis, 07/07/17) erythromycin base (Verified Allergy, Intermediate, Rash, 07/07/17) aspirin (Verified Allergy, Unknown, 07/07/17) oxycodone (Verified Allergy, Unknown, 07/07/17) PT states oxycodone is fine, but percodan is too strong MRI PRECAUTION (Verified Adverse Reaction, Severe, BLADDER STIMULATOR, ) BRAIN ONLY ON RECEIVE ONLY COIL, P.O. 01/11/17, DML *MDRO Multi-Drug Resistant Organism (Verified Adverse Reaction, Unknown, MRSA, 07/07/17) MRSA PCR (nares) POSITIVE - 01/11/17 MRSA (foot) 06/09/17, 06/16/17 acetaminophen (Verified Adverse Reaction, Unknown, Psychosis, 07/07/17) meperidine (Verified Adverse Reaction, Unknown, Psychosis, 07/07/17) morphine (Verified Adverse Reaction, Unknown, Psychosis, 07/07/17) Uncoded Allergies: surgical tape (Allergy, Severe, 12/15/13) Reported Meds & Prescriptions Reported Meds & Active Scripts Active Iron (Ferrous Sulfate) 325 Mg Cap 325 Mg PO BIDPC Flexeril (Cyclobenzaprine HCl) 10 Mg Tab 10 Mg PO Q8HR Gabapentin 100 Mg Cap 100 Mg PO TID Donepezil 10 Mg Tab 10 Mg PO HS Atorvastatin (Atorvastatin Calcium) 40 Mg Tab 40 Mg PO HS Travatan Z Opth Drops (Travoprost) 0.004 % Soln 1 Drop EACH EYE HS Citalopram (Citalopram Hydrobromide) 40 Mg Tab 60 Mg PO DAILY Please take 1.5 pills daily Lisinopril 40 Mg Tab 40 Mg PO HS Aspirin 81 Low Dose (Aspirin) 81 Mg Chew 81 Mg CHEW DAILY Reported Advair Diskus Inh (Fluticasone-Salmeterol Inh) 500-50 Mcg/Blist Aer 1 Puff INH BID Rinse mouth after use. Oxycodone-Acetaminophen 5-325 mg Tab 1 Tab PO Q6H PRN Combivent Respimat Inh (Ipratropium-Albuterol Inh) 20-100 Custodial/Act Aero 1 Puff INH QID Ventolin Hfa 18 GM Inh (Albuterol Sulfate) 90 Mcg/Act Aer 2 Puff INH Q4-6H PRN Diltiazem HCl ER (Diltiazem HCl Coated Beads) 240 Mg Cap 240 Mg PO BID Vitamin C (Ascorbic Acid) 1,000 Mg Tablet.er 1,000 Mg PO DAILY Fluticasone Nasal [place] 50 Mcg/Act Naspr 50 Mcg EACH NARE BID 50 mcg/spray Lactobacillus Acidophilus 1 Tab Tab 1 Tab PO TIDAC Multi Vitamin and Mineral (Multiple Vitamins W/ Minerals) 1 Tab Tab 1 Tab PO DAILY Review of Systems Except as stated in HPI: all other systems reviewed are Neg Physical Exam Narrative GENERAL: 71yo M in severe distress. SKIN: Focused skin assessment warm/dry. HEAD: Atraumatic. Normocephalic. EYES: Pupils equal and round at 4mm bilaterally. No scleral icterus. No injection or drainage. ENT: No nasal bleeding or discharge. Mucous membranes pink and moist. NECK: Trachea midline. No JVD. CARDIOVASCULAR: Regular rate and rhythm. No murmur appreciated. RESPIRATORY: + accessory muscle use. +Stridors. Also with mild expiratory wheezing bilaterally. GASTROINTESTINAL: Abdomen soft, non-tender, nondistended. MUSCULOSKELETAL: Left foot: +Left 1st MTP wound 3cm by 2cm dorsum of 1st MTP is foul smelling with surrounding erythema. +Purulent discharge. Distal phalanx blue in color. DP 1+. NEUROLOGICAL: Moving extremities spontaneous but not to command. Nonverbal. Stridorous and in distress. Does not open eyes. Data Data Last Documented VS Vital Signs Date Time Temp Pulse Resp B/P (MAP) Pulse Ox O2 Delivery O2 Flow Rate FiO2 07/14/17 02:50 100 Ventilator 50 07/14/17 02:44 100.2 07/14/17 02:37 100 16 07/14/17 00:36 2.00 Orders Orders Etomidate Inj (Amidate Inj) (07/14/17 00:32) Propofol 1000 Mg/100 Ml Inj (Diprivan 10 (07/14/17 00:35) Ammonia (07/14/17 00:43) Complete Blood Count With Diff (07/14/17 00:43) Comprehensive Metabolic Panel (07/14/17 00:43) Creatine Kinase (Cpk) (07/14/17 00:43) Prothrombin Time / Inr (Pt) (07/14/17:43) Act Partial Throm Time (Ptt) (07/14/17 00:43) Troponin I (07/14/17:43) Thyroid Stimulating Hormone (07/14/17:43) Urinalysis - C+S If Indicated (07/14/17:43) Lactic Acid Sepsis Protocol (07/14/17 00:43) Arterial Blood Gas (Abg) (07/14/17 00:43) Blood Culture (07/14/17 00:43) Chest, Single Ap (07/14/17 00:43) Ct Brain W/O Iv Contrast(Rout) (07/14/17 00:43) Blood Glucose (07/14/17 00:43) Ecg Monitoring (07/14/17 00:43) Iv Access Insert/Monitor (07/14/17 00:43) Oximetry (07/14/17 00:43) Sodium Chloride 0.9% Flush (Ns Flush) (07/14/17 00:45) Drug Screen, Random Urine (07/14/17 00:43) Tylenol (Acetaminophen) (07/14/17 00:43) Salicylates (Aspirin) (07/14/17 00:43) Alcohol (Ethanol) (07/14/17 00:43) Vancomycin Inj (Vancomycin Inj) (07/14/17 01:30) Aztreonam Inj (Azactam Inj) (07/14/17 01:30) Electrocardiogram (07/14/17 ) Racemic Epinephrine 2.25% Neb (Racepinep (07/14/17 01:30) Methylprednisolone So Succ Inj (Solumedr (07/14/17 01:30) Albuterol-Ipratropium Neb (Duoneb Neb) (07/14/17 01:30) Foot, Limited (2vws) (07/14/17 ) Ankle, Limited (Ap&Lat) (07/14/17 ) Urinary Catheter Insert/Apply (07/14/17 02:00) Wound Culture And Gram Stain (07/14/17 02:00) Etomidate Inj (Amidate Inj) (07/14/17 02:00) Rocuronium Inj (Zemuron Inj) (07/14/17 02:00) Westergren Sedimentation Rate (07/14/17 02:01) C-Reactive Protein (Crp) (07/14/17 02:01) Propofol 1000 Mg/100 Ml Inj (Diprivan 10 (07/14/17 02:02) ^ Infusion (07/14/17 02:02) RASS (07/14/17 02:02) Neurological Rass Scale KATIE.Q2H (07/14/17 02:02) Midazolam Inj (Versed Inj) (07/14/17 02:30) Sodium Chlor 0.9% 1000 Ml Inj (Ns 1000 M (07/14/17 03:00) Admit Order (Ed Use Only) (07/14/17 02:54) Labs Laboratory Tests Test 07/14/17 01:00 07/14/17 01:20 07/14/17 01:47 White Blood Count 15.5 TH/MM3 Red Blood Count 3.00 MIL/MM3 Hemoglobin 8.1 GM/DL Hematocrit 24.5 % Mean Corpuscular Volume 81.8 FL Mean Corpuscular Hemoglobin 26.9 PG Mean Corpuscular Hemoglobin Concent 32.9 % Red Cell Distribution Width 19.0 % Platelet Count 527 TH/MM3 Mean Platelet Volume 7.0 FL Neutrophils (%) (Auto) 74.9 % Lymphocytes (%) (Auto) 14.4 % Monocytes (%) (Auto) 10.0 % Eosinophils (%) (Auto) 0.4 % Basophils (%) (Auto) 0.3 % Neutrophils # (Auto) 11.6 TH/MM3 Lymphocytes # (Auto) 2.2 TH/MM3 Monocytes # (Auto) 1.6 TH/MM3 Eosinophils # (Auto) 0.1 TH/MM3 Basophils # (Auto) 0.0 TH/MM3 CBC Comment DIFF FINAL Differential Comment Erythrocyte Sedimentation Rate GREATER THAN 140 mm/hr Prothrombin Time 11.5 SEC Prothromb Time International Ratio 1.0 RATIO Activated Partial Thromboplast Time 34.6 SEC Urine Color YELLOW Urine Turbidity HAZY Urine pH 6.0 Urine Specific [place] 1.025 Urine Protein 300 mg/dL Urine Glucose (UA) NEG mg/dL Urine Ketones TRACE mg/dL Urine Occult Blood TRACE Urine Nitrite NEG Urine Bilirubin NEG Urine Urobilinogen LESS THAN 2.0 MG/DL Urine Leukocyte Esterase NEG Urine RBC 2 /hpf Urine WBC 2 /hpf Urine Squamous Epithelial Cells <1 /hpf Urine Mucus FEW /lpf Microscopic Urinalysis Comment CATH-CULT NOT IND Blood Urea Nitrogen 12 MG/DL Creatinine 0.72 MG/DL Random Glucose 107 MG/DL Total Protein 7.0 GM/DL Albumin 2.1 GM/DL Calcium Level 8.7 MG/DL Alkaline Phosphatase 109 U/L Aspartate Amino Transf (AST/SGOT) 30 U/L Alanine Aminotransferase (ALT/SGPT) 36 U/L Total Bilirubin 0.3 MG/DL Sodium Level 139 MEQ/L Potassium Level 3.4 MEQ/L Chloride Level 103 MEQ/L Carbon Dioxide Level 24.7 MEQ/L Anion Gap 11 MEQ/L Estimat Glomerular Filtration Rate 107 ML/MIN Lactic Acid Level 0.9 mmol/L Ammonia 24 MCMOL/L Total Creatine Kinase 60 U/L Troponin I 0.07 NG/ML C-Reactive Protein 17.00 MG/DL Thyroid Stimulating Hormone 3rd Gen 0.865 uIU/ML Urine Opiates Screen NEG Acetaminophen Level LESS THAN 2.0 MCG/ML Urine Barbiturates Screen NEG Urine Amphetamines Screen NEG Urine Benzodiazepines Screen NEG Urine Cocaine Screen NEG Urine Cannabinoids Screen NEG Ethyl Alcohol Level LESS THAN 3 MG/DL Blood Gas Puncture Site RT RADIAL Blood Gas Patient Temperature 98.6 Blood Gas HCO3 23 mmol/L Blood Gas Base Excess -2.4 mmol/L Blood Gas Oxygen Saturation 98 % Arterial Blood pH 7.33 Arterial Blood Partial Pressure CO2 45 mmHg Arterial Blood Partial Pressure O2 294 mmHG Arterial Blood Oxygen Content 12.7 Vol % Arterial Blood Carboxyhemoglobin 0.1 % Arterial Blood Methemoglobin 0.3 % Blood Gas Hemoglobin 8.7 G/DL Oxygen Delivery Device VENTILATOR Blood Gas Ventilator Setting Blood Gas Inspired Oxygen 80 % Salicylates Level LESS THAN 1.7 MG/DL MDM Medical Decision Making Medical Screen Exam Complete: Yes Emergency Medical Condition: Yes Interpretation(s) EKG: Sinus tachycardia at 108bpm. Normal axis. RBBB. Differential Diagnosis Osteomyelitis vs. Epiglottitis vs. meningitis vs. pneumonia vs. urosepsis vs. COPD exacerbation Narrative Course 71yo M with recent admission for osteomyelitis of left foot here with altered mental status. Pt was febrile at 101.2F. HR 101bpm. Although there is a source for sepsis, I cannot 100% r/o meningitis without lumbar puncture. Pt's is refusing lumbar puncture stating he does not have meningitis and altered mental status is because of the foot. She understands that I cannot rule out meningitis without lumbar puncture although source is likely foot. Pt emergently intubated secondary to altered mental status and was in respiratory distress. CXR reviewed, showed ET tube in appropriate position. Atelectasis at the lung bases. Pt was initially stridorous so gave 1 racemic epinephrine since pt's was debating whether she wanted intubation initially but eventually decided she does want intubation. Pt given duonebs x3 and methylprednisolone for COPD exacerbation as well. Labs reviewed, leukocytosis at 15.5. H/H 8.1/24.5, mildly decreased from baseline. Elevated platelet count. Lactic acid 0.9. Ammonia normal at 24. Troponin mildly elevated at 0.07, likely secondary to sepsis. Will trend. PTT mildly prolonged. UA negative. CT brain showed no acute intracranial abnormality. Xray left ankle showed no acute abnormality. Xray left foot showed soft tissue air overlying base of first digit may be related to the laceration. Absence of distal half of the first metatarsal likely related to prior resection. ESR and c-reactive protein elevated. Consult placed for podiatry. Pt placed on vancomycin and aztreonam. Wound also cultured. Pt had surgery in this area. Discussed with pressed or blown glass worker and accepted to his service. Pt was on propofol drip at 50mcg/kg/ min but still required more sedation so versed 5mg IV given and placed on versed drip, weaning down on the propofol. Critical Care Narrative Aggregate critical care time was 60 minutes. Time to perform other separately billable procedures was not included in the critical care time. My time did not include minutes spent treating any other patients simultaneously or on activities that did not directly contribute to the patient's treatment. The services I provided to this patient were to treat and/or prevent clinically significant deterioration that could result in: cardiovascular collapse or . I provided critical care services requiring my management, as noted below: Chart data review, documentation time, medication orders and management, vital sign assessments/reviewing monitor data, ordering and reviewing lab tests, ordering and interpreting/reviewing x-rays and diagnostic studies, care of the patient and discussion of the patient with the admitting physicians. Procedures Procedure Narrative The patient was put in optimal position for the procedure. Rapid sequence intubation was initiated by me using 30milligrams of etomidate IV and 60milligrams of rocuronium IV. The patient was intubated with a 8.0 cuffed endotracheal tube. Tube placement was confirmed by visualization of the tube and balloon passing through the cords, capnometry and subsequent chest x-ray. Breath sounds were equal and well aerated bilaterally postintubation. No breath sounds over stomach. Patient tolerated procedure well. Diagnosis Primary Impression: Altered mental status Qualified Codes: R41.82 - Altered mental status, unspecified Admitting Information Admitting Physician Requests: Georgie Ferrari DO Jul 14, 2017 01:27
[2017-07-14] MEDS ORDERED: RESP: RACEPINEPHRINE 2.25% 0.5 ML NEB NEB ONE (01:30)
[2017-07-14] MEDS ORDERED: methylPREDNISolone SOD SUCC 125 MG/2 ML VIAL IVP ONE (01:30)
[2017-07-14] MEDS ORDERED: AZTREONAM INJ 2,000 MG in SODIUM CHLORIDE 0.9% INJ 100 ML IV ONE (01:30)
[2017-07-14] MEDS ORDERED: VANCOMYCIN INJ 1,450 MG in SODIUM CHLORID 0.9% 500 ML INJ 500 ML IV ONE (01:30)
[2017-07-14 01:40] LABS: APTT (PATIENT) 34.6 SEC (24.3-30.1); PROTHROMBIN TIME - PATIENT 11.5 SEC (9.8-11.6)
[2017-07-14 01:43] LABS: AUTOMATED NEUTROPHIL # 11.6 TH/MM3 (1.8-7.7); BASOPHIL % 0.3 % (0.0-2.0); BLOOD, URINE TRACE (NEG); COMMENT (UR) CATH-CULT NOT IND; CULTURE IF INDICATED CATH CULTURE NOT IND; EOSINOPHIL # 0.1 TH/MM3 (0-0.4); EOSINOPHIL % 0.4 % (0.0-4.0); GLUCOSE,URINE NEG (NEG); HEMATOCRIT 24.5 % (39.0-51.0); HEMO FLAGS DIFF FINAL; KETONE, URINE TRACE mg/dL (NEG); LYMPH % 14.4 % (9.0-44.0); LYMPHOCYTE # 2.2 TH/MM3 (1.0-4.8); MEAN CELL VOLUME 81.8 FL (80.0-100.0); MEAN CORPUSCULAR HEMOGLOBIN 26.9 PG (27.0-34.0); MEAN CORPUSCULAR HGB CONC 32.9 % (32.0-36.0); MUCUS URINE FEW /lpf (OCC); NEUT % 74.9 % (16.0-70.0); NITRITE,URINE NEG (NEG); PLATELET COUNT 527 TH/MM3 (150-450); SQUAMOUS EPITHELIAL CELL URINE <1 /hpf (0-5); URINE COLOR YELLOW (YELLW/STRAW); WHITE BLOOD COUNT 15.5 TH/MM3 (4.0-11.0)
[2017-07-14] MEDS: RESP: ALBUTEROL 2.5 MG/IPRATROPIUM 0.5 MG NEB (SCH) INH ×6 (01:47→20:25)
[2017-07-14 01:54] LABS: ANION GAP 11 MEQ/L (5-15)
[2017-07-14] MEDS ORDERED: ETOMIDATE 20 MG/10 ML VIAL IV PUSH ONE (02:00)
[2017-07-14] MEDS ORDERED: ROCURONIUM INJ 50 MG/5 ML VIAL IV ONE (02:00)
[2017-07-14 02:06] LABS: ALKALINE PHOSPHATASE 109 U/L (45-117); ALT (GPT) 36 U/L (12-78); AST (GOT) 30 U/L (15-37); BICARBONATE 24.7 MEQ/L (21.0-32.0); BLOOD UREA NITROGEN 12 MG/DL (7-18); CHLORIDE 103 MEQ/L (98-107); GLOMERULAR FILTRATION RATE 107 ML/MIN (>89); POTASSIUM 3.4 MEQ/L (3.5-5.1); SODIUM (NA) 139 MEQ/L (136-145); TOTAL BILIRUBIN ADULT 0.3 MG/DL (0.2-1.0)
[2017-07-14 02:08] LABS: ACETAMINOPHEN LESS THAN 2.0 MCG/ML (10.0-30.0); CREATINE KINASE 60 U/L (39-308)
[2017-07-14 02:09] LABS: ALCOHOL LESS THAN 3 MG/DL (0-5)
[2017-07-14] MEDS: PROPOFOL 1000 MG/100 ML INJ 100 ML IV PRN ×3 (02:11→21:01)
--- NOTE | 2017-07-14 02:23 | RADRPT ---
EXAM DATE/TIME: 07/14/2017 01:44 [facility] COMPARISON: No previous studies available for comparison. INDICATIONS : Pain left foot, laceration to 1st toe. MEDICAL HISTORY : Hx MRSA to 1st digit. SURGICAL HISTORY : Unknown ENCOUNTER: Initial ACUITY: 1 day PAIN SCORE: 0/10 LOCATION: Left foot FINDINGS: Findings AP and lateral views of the left foot demonstrate absence of the distal half of the first me tatarsal likely related to surgical resection. There is soft tissue air overlying the proximal aspect of the first digit. No radiopaque foreign body is seen. Lisfranc joint appears intact. There is an o void area of sclerosis within the calcaneus measuring approximately 15 mm. CONCLUSION: 1. Soft tissue air overlying the base of the first digit may be related to the laceration if the lace ration is in this location. No radiopaque foreign body is identified. 2. Absence of the distal half of the first metatarsal likely related to prior resection. Jose Miller MD on July 14, 2017 at 2:19 Board Certified Radiologist. This report was verified electronically.
--- NOTE | 2017-07-14 02:24 | RADRPT ---
EXAM DATE/TIME: 07/14/2017 01:48 [facility] COMPARISON: No previous studies available for comparison. INDICATIONS : Ankle pain. Swelling. MEDICAL HISTORY : None. SURGICAL HISTORY : None. ENCOUNTER: Initial ACUITY: 1 day PAIN SCORE: 0/10 LOCATION: Left ankle FINDINGS: AP and lateral views of the left ankle demonstrate no fracture or dislocation. Mineralization is with in normal limits. Ankle mortise is intact. No soft tissue abnormality is identified. There is an ovoi d area of sclerosis in the calcaneus measuring approximately 15 mm. CONCLUSION: No acute left ankle abnormality is identified. Jose Miller MD on July 14, 2017 at 2:22 Board Certified Radiologist. This report was verified electronically.
--- NOTE | 2017-07-14 02:27 | RADRPT ---
EXAM DATE/TIME: 07/14/2017 02:09 [place] COMPARISON: CT BRAIN W/O CONTRAST, May 08, 2016, 15:13. INDICATIONS : Altered mental status. RADIATION DOSE: 40.11 CTDIvol (mGy) MEDICAL HISTORY : Non-responsive. SURGICAL HISTORY : Non-responsive. ENCOUNTER: Initial ACUITY: 1 day PAIN SCALE: Non-responsive LOCATION: cranial TECHNIQUE: Multiple contiguous axial images were obtained of the head. Using automated exposure control and adj ustment of the mA and/or kV according to patient size, radiation dose was kept as low as reasonably a chievable to obtain optimal diagnostic quality images. DICOM format image data is available electro nically for review and comparison. FINDINGS: CEREBRUM: There is generalized atrophy. Ventricles are normal in size given the degree of atrophy. There is a s table extra-axial ossification in the left frontal region measuring 13 mm. No evidence of midline sh ift, mass lesion, hemorrhage or acute infarction. No extra-axial fluid collections are seen. POSTERIOR FOSSA: The cerebellum and brainstem demonstrate no acute finding. The 4th ventricle is midline. The cerebe llopontine angle is unremarkable. EXTRACRANIAL: The visualized portion of the orbits is intact. SKULL: The calvaria is intact. No evidence of skull fracture. CONCLUSION: No acute intracranial abnormality is identified. Jose Miller MD on July 14, 2017 at 2:22 Board Certified Radiologist. This report was verified electronically.
[2017-07-14] MEDS ORDERED: VENTAER INH (02:30)
[2017-07-14] MEDS ORDERED: IPRAAER INH (02:30)
[2017-07-14] MEDS ORDERED: OXYC1TAB63 PO (02:30)
[2017-07-14] MEDS ORDERED: MIDAZOLAM HCL 5 MG/ML VIAL (1 ML) ONE (02:30)
[2017-07-14] MEDS ORDERED: ADVA500A INH (02:30)
[2017-07-14 02:45] LABS: BLOOD GAS BASE EXCESS -2.4 mmol/L (-2-2); BLOOD GAS CARBOXYHEMOGLOBIN 0.1 % (0-4); BLOOD GAS HCO3 23 mmol/L (22-26); BLOOD GAS METHEMOGLOBIN 0.3 % (0-2); BLOOD GAS O2 HGB SATURATION 98 % (90-100); BLOOD GAS OXYGEN CONTENT 12.7 Vol % (12.0-20.0); BLOOD GAS PCO2 45 mmHg (38-42); BLOOD GAS PO2 294 mmHG (61-120); BLOOD GAS TOTAL HGB 8.7 G/DL (12.0-16.0); CRITICAL VALUE NO; OXYGEN DEVICE VENTILATOR; TEMP CORR TO 98.6
[2017-07-14 02:46] LABS: DRAW SITE RT RADIAL; FIO2 80 %; NUMBER OF ARTERIAL PUNCTURES 1; STAT YES; ULNAR PULSE PRESENT
[2017-07-14] MEDS ORDERED: SODIUM CHLOR 0.9% 1000 ML INJ 1,000 ML IV ONE (03:00)
[2017-07-14] MEDS ORDERED: MIDAZOLAM 100 MG/100 ML INJ 100 ML IV PRN (03:01)
[2017-07-14] MEDS ORDERED: MIDAZOLAM HCL 5 MG/5 ML VIAL IV PUSH ONE (03:15)
[2017-07-14] MEDS ORDERED: MIDAZOLAM 100 MG/100 ML INJ 100 ML ONE (03:17)
[2017-07-14] MEDS ORDERED: MISCELLANEOUS NURSING INFORMATION XX SCH (03:30)
[2017-07-14] MEDS ORDERED: MIDAZOLAM HCL 2 MG/2 ML VIAL IV PRN (03:30)
[2017-07-14] MEDS ORDERED: MORPHINE SULFATE 4 MG/ML INJ IV PRN (03:30)
[2017-07-14] MEDS ORDERED: SODIUM CHLORIDE 0.9% FLUSH 10 ML FLUSH PRN (03:30)
[2017-07-14] MEDS ORDERED: SENNOSIDES 8.6 MG TAB PO PRN (03:30)
[2017-07-14] MEDS ORDERED: LACTULOSE SYRUP 20 GM/30 ML CUP PO PRN (03:30)
[2017-07-14] MEDS ORDERED: Vancomycin Consult Pharmacy 1 EA OTHER SCH ×2 (03:30→05:30)
[2017-07-14] MEDS ORDERED: ONDANSETRON HCL 4 MG/2 ML VIAL IV PRN (03:30)
[2017-07-14] MEDS ORDERED: ACETAMINOPHEN 325 MG TAB PO PRN (03:30)
[2017-07-14] MEDS ORDERED: MAGNESIUM HYDROXIDE SUSP 30 ML CUP PO PRN (03:30)
[2017-07-14] MEDS ORDERED: BISACODYL 10 MG SUPP RECTAL PRN (03:30)
[2017-07-14] MEDS ORDERED: VANCOMYCIN INJ 1,000 MG in SODIUM CHLOR 0.9% 250 ML INJ 250 ML IV ONE ×2 (03:30→05:30)
[2017-07-14] MEDS ORDERED: CHLORHEXIDINE GLUCONATE 2 % 1 PACK (2 CLOTHS) TOP PRN (03:30)
[2017-07-14] MEDS: CHLORHEXIDINE GLUCONATE 2 % 1 PACK (2 CLOTHS) TOP SCH (03:45)
[2017-07-14] MEDS ORDERED: fentaNYL DRIP 250 ML IV PRN (03:56)
[2017-07-14] MEDS: hydrALAZINE HCL 20 MG/ML VIAL IV PUSH PRN (04:22)
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
[2017-07-14] MEDS ORDERED: GLUCAGON 1 MG/ML VIAL OTHER PRN ×2 (05:30→10:15)
[2017-07-14] MEDS ORDERED: DEXTROSE 50% IN WATER 50 ML VIAL(D50) IV PRN ×2 (05:30→10:15)
[2017-07-14] MEDS: CYCLOBENZAPRINE HCL 10 MG TAB PO SCH ×3 (05:55→20:48)
[2017-07-14] MEDS: HEPARIN SODIUM - SQ 10,000 UNITS/ML VIAL SQ SCH ×3 (06:05→20:45)
[2017-07-14] MEDS ORDERED: INSULIN ASPART SUPPLEMENTAL SCALE SQ SCH (07:00)
[2017-07-14] MEDS: LACTOBACILLUS ACIDOPHILUS TAB PO SCH ×3 (08:00→17:00)
[2017-07-14] MEDS: BUDESONIDE-FORMOTEROL 80/4.5 MCG INHALER INH SCH ×2 (09:00→20:46)
[2017-07-14] MEDS: DOCUSATE SODIUM 50 MG/SENNA 8.6 MG TAB PO SCH ×2 (09:00→20:48)
[2017-07-14] MEDS: MULTIVITAMINS/MINERALS THERAPEUTIC TAB PO SCH (09:00)
[2017-07-14] MEDS: CITALOPRAM HYDROBROMIDE 20 MG TAB PO SCH (09:00)
[2017-07-14] MEDS: ASCORBIC ACID 500 MG TAB PO SCH (09:00)
[2017-07-14] MEDS: ASPIRIN 81 MG CHEW TAB CHEW SCH (09:00)
[2017-07-14] MEDS: FAMOTIDINE 20 MG/2 ML VIAL IV PUSH SCH ×2 (09:00→20:45)
[2017-07-14] MEDS: FERROUS SULFATE 325 MG (65 MG ELEMENTAL IRON) TAB PO SCH ×2 (09:00→18:00)
[2017-07-14] MEDS: ARTIFICIAL TEARS OPTH SOLN 15 ML BTL EACH EYE SCH ×3 (09:00→18:00)
[2017-07-14] MEDS: GABAPENTIN 100 MG CAP PO SCH ×3 (09:00→18:00)
[2017-07-14] MEDS: SODIUM CHLORIDE 0.9% FLUSH 10 ML FLUSH SCH ×2 (09:00→20:43)
[2017-07-14] MEDS ORDERED: POTASSIUM PHOSPHATE MONOBASIC 500 MG TAB PO/TUBE PRN (10:15)
[2017-07-14] MEDS ORDERED: POTASSIUM CHLOR 20 MEQ PREMIX 100 ML IV PRN ×2 (10:15)
[2017-07-14] MEDS ORDERED: POTASSIUM CHLORIDE 25 MEQ EFFERVESCENT TAB PO PRN (10:15)
[2017-07-14] MEDS ORDERED: POTASSIUM PHOSPHATE MONOBASIC 500 MG TAB PO PRN (10:15)
[2017-07-14] MEDS ORDERED: MAGNESIUM SULFATE INJ 2 GM in SODIUM CHLORIDE 0.9% INJ 96 ML IV PRN (10:15)
[2017-07-14] MEDS ORDERED: MAGNESIUM SULFATE INJ 4 GM in SODIUM CHLORIDE 0.9% INJ 92 ML IV PRN (10:15)
[2017-07-14] MEDS ORDERED: POTASSIUM PHOSPHATE INJ 30 MMOL in SODIUM CHLOR 0.9% 250 ML INJ 250 ML IV PRN (10:15)
[2017-07-14] MEDS ORDERED: POTASSIUM CHLOR 40 MEQ PREMIX 100 ML IV PRN (10:15)
[2017-07-14] MEDS ORDERED: MAGNESIUM OXIDE 400 MG TAB PO PRN (10:15)
[2017-07-14] MEDS ORDERED: SODIUM PHOSPHATE INJ 30 MMOL in SODIUM CHLOR 0.9% 250 ML INJ 240 ML IV PRN (10:15)
--- NOTE | 2017-07-14 10:50 | EKG ---
Date Performed: 07/14/2017 Time Performed: 01:47:00 PTAGE: 71 years EKG: Sinus tachycardia Right bundle branch block Ventricular premature complexes with fusion ABN ORMAL ECG PREVIOUS TRACING : 07/02/2017 13.51 Compared to the prior tracing, PVCs are new. DOCTOR: Richard Dixon Interpretating Date/Time 07/14/2017 10:48:59
[2017-07-14] MEDS: SODIUM CHLOR 0.9% 1000 ML INJ 1,000 ML IV SCH ×2 (11:00→21:02)
[2017-07-14] MEDS: INSULIN NovoLIN REGULAR SUPPLEMENTAL SCALE SQ SCH ×4 (11:00→22:31)
[2017-07-14 11:23] LABS: BLOOD GAS BASE EXCESS -1.1 mmol/L (-2-2); BLOOD GAS CARBOXYHEMOGLOBIN 0.4 % (0-4); BLOOD GAS HCO3 23 mmol/L (22-26); BLOOD GAS METHEMOGLOBIN 0.8 % (0-2); BLOOD GAS O2 HGB SATURATION 97 % (90-100); BLOOD GAS OXYGEN CONTENT 11.8 Vol % (12.0-20.0); BLOOD GAS PCO2 39 mmHg (38-42); BLOOD GAS PO2 181 mmHg (61-120); BLOOD GAS TOTAL HGB 8.4 G/DL (12.0-16.0); CRITICAL VALUE NO; OXYGEN DEVICE VENTILATOR; TEMP CORR TO 98.6
[2017-07-14 11:24] LABS: DRAW SITE LT RADIAL; FIO2 40 %
[2017-07-14 11:25] LABS: NUMBER OF ARTERIAL PUNCTURES 1; STAT NO; ULNAR PULSE PRESENT
[2017-07-14] MEDS: VANCOMYCIN INJ 1,500 MG in SODIUM CHLORID 0.9% 500 ML INJ 500 ML IV SCH (14:00)
--- NOTE | 2017-07-14 14:54 | MB ---
cc: CORDELL CESPEDES MD DATE OF CONSULTATION: 07/14/[address] Tian REASON FOR CONSULTATION: MRSA osteomyelitis and leukocytosis. HISTORY OF PRESENT ILLNESS This is a 71-year-old white male who was just discharged from the hospital on July 06 after foot surgery. The patient presented with osteomyelitis of the right great toe and he underwent surgery including excision of the first metatarsal head and medial sesamoid bone of the left foot. The pathology showed chronic osteomyelitis. The culture from the wound grew MSRA. The patient has had a history of C-difficile colitis and he refused treatment with antibiotics. He was discharged home without antibiotics. His is at bedside. She noted that yesterday the patient was mostly sleepy and was having some respiratory problems. He took his oxycodone which tends to making very drowsy early in the day and later in the day he continued to have problems with staying awake. He was brought to the emergency department. 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 He was intubated in the emergency department. His temperature was 100.2 degrees and heart rate was 100 and white count was 15.5. He was noted to have necrosis at the left great toe and also there was foul-smelling odor to the great toe and purulent discharge. A culture was taken. Blood cultures were also taken. The patient was admitted to the intensive care unit for further management. He is currently on the ventilator and unresponsive. Information is obtained from medical record. His temperature was to 101.2 degrees after admission. Urinalysis, revealed two white cells. Blood cultures were also taken. Chest x-ray Was performed and it showed atelectasis at the lung bases. X-ray of the foot showed soft tissue edema overlying the base of the first digit. The patient has been on no antibiotics since surgery on the foot on July 03 PAST MEDICAL HISTORY 1. Hypertension 2. COPD 3. Hyperlipidemia 4. dementia 5. Transient ischemic attack. 6. History of shingles 7. Glaucoma 8. History of appendectomy. 9. History of back surgery. 10. History of penile implant. 11. History of surgery for arachnoiditis. 12. Carotid artery surgery 13. History of C-difficile colitis. 14. Left knee septic arthritis. ALLERGIES ERYTHROMYCIN METRONIDAZOLE PENICILLIN SULFAMETHOXAZOLE TRIMETHOPRIM OXYCODONE MORPHINE MEPERIDINE ASPIRIN ACETAMINOPHEN MRI precaution. MEDICATIONS 1. Vancomycin 2. Celexa 3. Neurontin. 4. Aspirin. 5. Vitamin C. 6. Ferrous sulfate 7. Theragran. 8. Pepcid 9. Medina-Colace 10. Lactinex 11. Flexeril 12. Duoneb 13. Heparin. SOCIAL HISTORY The patient is . No tobacco, no alcohol use. No illicit drugs. FAMILY HISTORY: family history is significant for myocardial infarction in the patients mother and father. REVIEW OF SYSTEMS Unable to obtain, the patient is on ventilator. PHYSICAL EXAMINATION: IN GENERAL: The patient is a slender male who is in no acute distress. He is on the ventilator and is unresponsive. VITAL SIGNS: Temperature was 97.7. heart rate 56, BP 135/66. HEAD, EYES, EARS, NOSE, AND THROAT: Unable to assess adequately some the patient is on the ventilator. The sclerae is nonicteric. Oropharynx intubated. NECK: No swelling or adenopathy. LUNGS: Clear breath sounds bilateral. HEART: Regular S1-S2. No audible murmur. ABDOMEN: Bowel sounds present, flat, nontender. No masses palpable. No hepatosplenomegaly or splenomegaly appreciated. RECTUM: Rectal was not performed. EXTREMITIES: The left great toe is purpuric throughout the entire surface of that toe. The great toe base laterally at the mid aspect has a patch of dry necrotic change with sutures embedded within the tissue. There is purulent creamy pus coming through on palpation of the necrotic area. The rest of the toes have no clubbing or cyanosis or edema. The remaining other extremities have no clubbing or cyanosis or edema. SKIN: No rash. NEUROLOGIC: Unable to assess. PSYCHIATRIC: Unable to assess. LABORATORY DATA WBC 15.5, platelets 527, 74% neutrophils, 40 lymphocytes, 10% monocytes, hemoglobin 8.1, creatinine 0.72, BUN 12, sodium 139. Liver function tests normal C-reactive protein 17.0, sedimentation rate 140. IMPRESSION 1. Sepsis in patient who presented with altered mental status fever, tachycardia and elevated white blood cell count and also with left foot osteomyelitis and now with purulent draining wound with necrotic changes indicating possible gangrene and also possible ischemia involving the left the left great toe. 2. 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 The patient declined antibiotic treatment at that time because of history of C-difficile colitis. 3. Acute respiratory failure in a patient who presented with altered mental status and likely had declined of the respiratory status due to medication effect. RECOMMENDATIONS 1. Continue to treat the patient with intravenous vancomycin to cover MRSA. 2. Will also give prophylactic p.o. vancomycin for C-difficile. 3. Continue Lactinex also for C-difficile. 4. Monitor blood cultures. 5. Monitor the new wound culture 6. Await evaluation by podiatry to determine further treatment for the left foot osteomyelitis/wound infection and now potentially I ischemia involving the left great toe. The above plan was discussed with the patient's at bedside. Thank you for this consultation. The patient's progress will be monitored and further recommendations will be given on followup if necessary. Cordell Cespedes MD FD/gui /2:01 PM /2:28 PM SAL
[2017-07-14 15:29] LABS: BICARBONATE 25.9 MEQ/L (21.0-32.0); POTASSIUM 3.6 MEQ/L (3.5-5.1)
[2017-07-14 15:34] LABS: AUTOMATED NEUTROPHIL # 8.5 TH/MM3 (1.8-7.7); BASOPHIL % 0.1 % (0.0-2.0); HEMATOCRIT 22.9 % (39.0-51.0); HEMO FLAGS DIFF FINAL; LYMPH % 6.3 % (9.0-44.0); LYMPHOCYTE # 0.6 TH/MM3 (1.0-4.8); MEAN CELL VOLUME 82.4 FL (80.0-100.0); MEAN CORPUSCULAR HEMOGLOBIN 26.5 PG (27.0-34.0); MEAN CORPUSCULAR HGB CONC 32.1 % (32.0-36.0); MONO % 1.6 % (0.0-8.0); PLATELET COUNT 475 TH/MM3 (150-450); RED BLOOD COUNT 2.77 MIL/MM3 (4.50-5.90); RED CELL DISTRIBUTION WIDTH 18.7 % (11.6-17.2); WHITE BLOOD COUNT 9.2 TH/MM3 (4.0-11.0)
--- NOTE | 2017-07-14 18:08 | PD.WOU.CON ---
Patient Intake Chief Complaint Ischemic changes of the left hallux and first metatarsal area Consult Requested by Dr. Duval Reason for Consult Evaluation of nonhealing surgical site left foot. Primary Care Physician La Nena Samuel MD History of Present Illness 71-year-old diabetic male who underwent surgery approximately 2 weeks ago for osteomyelitis of the first metatarsal head and sesamoids. Patient was doing well postoperatively. A few days ago he started developing memory loss and signs of septicemia and respiratory distress. He was brought to the hospital and admitted and is currently on an ICU on a ventilator. I was asked to evaluate the patient and his wound Coded Allergies: Sulfa (Sulfonamide Antibiotics) (Verified Allergy, Severe, Anaphylaxis, ) metronidazole (Verified Allergy, Severe, Fever, colitis, 07/07/17) While being treated for Cdiff. Doubt if true allergy. penicillin G (Verified Allergy, Severe, Anaphylaxis, 07/07/17) sulfamethoxazole (Verified Allergy, Severe, Anaphylaxis, 07/07/17) trimethoprim (Verified Allergy, Severe, Anaphylaxis, 07/07/17) erythromycin base (Verified Allergy, Intermediate, Rash, 07/07/17) aspirin (Verified Allergy, Unknown, 07/07/17) oxycodone (Verified Allergy, Unknown, 07/07/17) PT states oxycodone is fine, but percodan is too strong MRI PRECAUTION (Verified Adverse Reaction, Severe, BLADDER STIMULATOR, ) BRAIN ONLY ON RECEIVE ONLY COIL, P.O. 01/11/17, DML *MDRO Multi-Drug Resistant Organism (Verified Adverse Reaction, Unknown, MRSA, 07/07/17) MRSA PCR (nares) POSITIVE - 01/11/17 MRSA (foot) 06/09/17, 06/16/17 acetaminophen (Verified Adverse Reaction, Unknown, Psychosis, 07/07/17) meperidine (Verified Adverse Reaction, Unknown, Psychosis, 07/07/17) morphine (Verified Adverse Reaction, Unknown, Psychosis, 07/07/17) Uncoded Allergies: surgical tape (Allergy, Severe, 12/15/13) Preferred Language to Discuss: Czech Barriers to Learning: None Teaching Method: Discussion Vital Signs Date Time Temp Pulse Resp B/P (MAP) Pulse Ox O2 Delivery O2 Flow Rate FiO2 07/14/17 16:06 100 40 07/14/17 10:59 100 40 07/14/17 07:49 99 40 07/14/17 07:45 07/14/17 07:41 100 100 07/14/17 07:06 100 40 07/14/17 05:31 97.7 92 16 127/76 (93) 96 Ventilator 50 07/14/17 05:06 97.3 99 18 165/70 (101) 100 Ventilator 50 07/14/17 04:46 96 18 165/78 (107) 99 Ventilator 50 07/14/17 04:30 98 50 07/14/17 04:11 99 22 183/101 (128) 100 Ventilator 50 07/14/17 03:43 98.8 98 20 194/90 (124) 100 Ventilator 50 07/14/17 02:50 100 Ventilator 50 07/14/17 02:44 100.2 07/14/17 02:37 100 16 177/83 (114) 100 Ventilator 50 07/14/17 02:08 100 100 07/14/17 01:45 100 50 07/14/17 01:36 100.1 100 20 197/88 (124) 100 Ventilator 50 07/14/17 01:27 110 20 202/99 (133) 100 Ventilator 50 07/14/17 01:21 111 16 200/99 (132) 100 Ventilator 80 07/14/17 01:15 112 16 208/110 (142) 100 Ventilator 50 07/14/17 00:55 100 80 07/14/17 00:54 80 07/14/17 00:36 101.2 101 33 172/101 (124) 100 07/14/17 00:36 112 30 99 Nasal Cannula 2.00 Pain scale used: 0-10 numeric scale Pain score: 0 Medications Current Medications Etomidate (Amidate Inj) 40 mg STK-MED ONCE .ROUTE ; Start 07/14/17 at 00:32; Stop 07/14/17 at 00:33; Status DC Propofol 100 ml @ As Directed STK-MED ONCE .ROUTE ; Start 07/14/17 at 00:35; Stop 07/14/17 at 00:36; Status DC IV Flush (NS Flush) 2 ml UNSCH PRN IV FLUSH FLUSH AFTER USING IV ACCESS; Start 07/14/17 at 00:45; Stop 07/14/17 at 03:47; Status DC Vancomycin HCl 1450 mg/Sodium Chloride 514.5 ml @ 250 mls/hr ONCE ONCE IV Last administered on 07/14/17 02:36; Start 07/14/17 at 01:30; Stop 07/14/17 at 03:33; Status DC Aztreonam 2000 mg/ Sodium Chloride 100 ml @ 200 mls/hr ONCE ONCE IV Last administered on 07/14/17 02:08; Start 07/14/17 at 01:30; Stop 07/14/17 at 01:59 ; Status DC Racepinephrine (Racepinephrine 2.25% Neb) 0.5 ml ONCE ONCE NEB Last administered on 07/14/17 01:36; Start 07/14/17 at 01:30; Stop 07/14/17 at 01:31 ; Status DC Methylprednisolone Sodium Succinate (SoluMEDROL INJ) 60 mg ONCE ONCE IVP Last administered on 07/14/17 01:44; Start 07/14/17 at 01:30; Stop 07/14/17 at 01:31 ; Status DC Albuterol/ Ipratropium (Duoneb Neb) 1 ampule Q15M INH Last administered on 07/14 01:48; Start 07/14/17 at 01:30; Stop 07/14/17 at 02:01; Status DC Etomidate (Amidate Inj) 30 mg ONCE ONCE IV PUSH Last administered on 02:09; Start 07/14/17 at 02:00; Stop 07/14/17 at 02:02; Status DC Rocuronium [place] (Zemuron Inj) 60 mg BOLUS ONCE IV Last administered on 07/14 02:08; Start 07/14/17 at 02:00; Stop 07/14/17 at 02:02; Status DC Propofol 100 ml @ 2.85 mls/hr Q35H6M PRN IV Ordered RASS Last administered on 04:39; Start 07/14/17 at 02:02 Midazolam HCl (Versed Inj) 5 mg STK-MED ONCE .ROUTE ; Start 07/14/17 at 02:30; Stop 07/14/17 at 02:31; Status DC Sodium Chloride 1,000 ml @ 999 mls/hr BOLUS ONCE IV Last administered on 07/14 03:32; Start 07/14/17 at 03:00; Stop 07/14/17 at 04:00; Status DC Midazolam HCl (Versed Inj) 5 mg ONCE ONCE IV PUSH Last administered on 03:06; Start 07/14/17 at 03:15; Stop 07/14/17 at 03:16; Status DC Midazolam HCl 100 ml @ 2 mls/hr Q50H PRN IV SEDATION Last administered on 03:39; Start 07/14/17 at 03:01 Midazolam HCl 100 ml @ As Directed STK-MED ONCE .ROUTE ; Start 07/14/17 at 03: 17; Stop 07/14/17 at 03:18; Status DC Aspirin (Aspirin Chew) 81 mg DAILY CHEW ; Start 07/14/17 at 09:00 Atorvastatin Calcium (Lipitor) 40 mg HS PO ; Start 07/14/17 at 21:00 Citalopram Hydrobromide (CeleXA) 60 mg DAILY PO ; Start 07/14/17 at 09:00 Cyclobenzaprine HCl (Flexeril) 10 mg Q8HR PO ; Start 07/14/17 at 06:00 Donepezil HCl (Aricept) 10 mg HS PO ; Start 07/14/17 at 21:00 Gabapentin (Neurontin) 100 mg TID PO ; Start 07/14/17 at 09:00 Lactobacillus Acidophilus (Lactinex) 1 tab TIDAC PO Last administered on 17:00; Start 07/14/17 at 08:00 Ascorbic Acid (Vitamin C) 1,000 mg DAILY PO ; Start 07/14/17 at 09:00 Ferrous Sulfate (Ferrous Sulfate) 325 mg BIDPC PO ; Start 07/14/17 at 09:00 Budesonide/ Formoterol Fumarate (Symbicort 80-4.5 Mcg Inh) 1 puff BID INH ; Start 07/14/17 at 09:00 Multivitamins/ Minerals Therapeutic (Theragran M Tab) 1 tab DAILY PO ; Start at 09:00 Latanoprost (Xalatan 0.005% Opt Soln) 1 drop HS EACH EYE ; Start 07/14/17 at 21 :00 Sodium Chloride (NS Flush) 2 ml UNSCH PRN .XX FLUSH AFTER USING IV ACCESS; Start 07/14/17 at 03:30 Sodium Chloride (NS Flush) 2 ml BID .XX Last administered on 07/14/17 09:00; Start 07/14/17 at 09:00 Acetaminophen (Tylenol) 650 mg Q6H PRN PO FEVER >101F; Start 07/14/17 at 03:30 ; Stop 07/14/17 at 03:47; Status DC Morphine Sulfate (Morphine Inj) 2 mg Q2H PRN IV PAIN SCALE 6 TO 10; Start 07/14 at 03:30; Stop 07/14/17 at 03:47; Status DC Famotidine (Pepcid Inj) 20 mg Q12HR IV PUSH ; Start 07/14/17 at 09:00 Midazolam HCl (Versed Inj) 2 mg Q1H PRN IV SEDATION; Start 07/14/17 at 03:30 Artificial Tears (Tears Naturale Opth Soln) 1 drop TID EACH EYE ; Start at 09:00 Ondansetron HCl (Zofran Inj) 4 mg Q6H PRN IV NAUSEA OR VOMITING; Start at 03:30 Albuterol/ Ipratropium (Duoneb Neb) 1 ampule Q6HR NEB INH Last administered on 07/14/17 16:06; Start 07/14/17 at 04:00 Albuterol/ Ipratropium (Duoneb Neb) 1 ampule Q2HR NEB PRN INH WHEEZING; Start 07/14/17 at 03:30 Heparin Sodium (Porcine) (Heparin Inj) 5,000 units Q8H SQ Last administered on 07/14/17 14:00; Start 07/14/17 at 06:00 Miscellaneous Information 1 Q361D XX ; Start 07/14/17 at 03:30 Chlorhexidine Gluconate (Chlorhexidine 2% Cloth) 3 pack Taper DAILY@04 TOP ; Start 07/14/17 at 04:00; Stop 07/10/18 at 03:59 Chlorhexidine Gluconate (Chlorhexidine 2% Cloth) 3 pack UNSCH PRN TOP HYGIENIC CARE; Start 07/14/17 at 03:30 Senna/Docusate Sodium ([place]-Colace) 1 tab BID PO ; Start 07/14/17 at 09:00 Magnesium Hydroxide (Milk Of Magnesia Liq) 30 ml Q12H PRN PO MILD - MODERATE CONSTIPATION; Start 07/14/17 at 03:30 Sennosides (Senokot) 17.2 mg Q12H PRN PO MODERATE - SEVERE CONSTIPATION; Start 07/14/17 at 03:30 Bisacodyl (Dulcolax Supp) 10 mg DAILY PRN RECTAL SEVERE CONSITIPATION; Start at 03:30 Lactulose (Lactulose Liq) 30 ml DAILY PRN PO SEVERE CONSITIPATION; Start at 03:30 Pharmacy Profile Note 0 ml @ 0 mls/hr UNSCH OTHER ; Start 07/14/17 at 03:30 Vancomycin HCl 1000 mg/Sodium Chloride 250 ml @ 250 mls/hr ONCE ONCE IV ; Start 07/14/17 at 03:30; Stop 07/14/17 at 04:29; Status UNV Hydromorphone HCl (Dilaudid Pf Inj) 0.5 mg Q4H PRN IV PAIN 1-10; Start at 04:00 Fentanyl Citrate 250 ml @ 5 mls/hr Q24H PRN IV SEDATION Last administered on 04:29; Start 07/14/17 at 03:56 Hydralazine HCl (Apresoline Inj) 20 mg Q4H PRN IV PUSH SBP>160, DBP>90 Last administered on 07/14/17 04:22; Start 07/14/17 at 04:00 Pharmacy Profile Note 0 ml @ 0 mls/hr UNSCH OTHER ; Start 07/14/17 at 05:30; Stop 07/14/17 at 05:30; Status DC Vancomycin HCl 1000 mg/Sodium Chloride 250 ml @ 250 mls/hr ONCE ONCE IV ; Start 07/14/17 at 05:30; Stop 07/14/17 at 06:29; Status UNV Dextrose (D50w (Vial) Inj) 50 ml UNSCH PRN IV HYPOGLYCEMIA-SEE COMMENTS; Start 07/14/17 at 05:30; Stop 07/14/17 at 10:45; Status DC Glucagon (Glucagon Inj) 1 mg UNSCH PRN OTHER HYPOGLYCEMIA-SEE COMMENTS; Start 07/14/17 at 05:30; Stop 07/14/17 at 10:45; Status DC Insulin Aspart (NovoLOG SUPPLEMENTAL SCALE) 1 ACHS SLIDING SCALE SQ Last administered on 07/14/17 06:42; Start 07/14/17 at 07:00; Stop 07/14/17 at 10:10 ; Status DC Vancomycin HCl 1500 mg/Sodium Chloride 515 ml @ 250 mls/hr Q12H IV Last administered on 07/14/17t 14:00; Start 07/14/17 at 14:00 Miscellaneous Information SPECIFIC LAB TO BE DRAWN:VANCOMYCIN TROUGH DATE TO... ONCE ONCE .XX ; Start 07/16/17 at 01:45; Stop 07/16/17 at 01:46 Sodium Chloride 1,000 ml @ 84 mls/hr [id number] IV Last administered on t 11:00; Start 07/14/17 at 11:00 Dextrose (D50w (Vial) Inj) 50 ml UNSCH PRN IV HYPOGLYCEMIA-SEE COMMENTS; Start 07/14/17 at 10:15 Glucagon (Glucagon Inj) 1 mg UNSCH PRN OTHER HYPOGLYCEMIA-SEE COMMENTS; Start 07/14/17 at 10:15 Insulin Human Regular (NovoLIN R SUPPLEMENTAL SCALE) 1 Q4H SQ ; Start 07/14/17 at 11:00 Potassium Chloride 100 ml @ 50 mls/hr Q2H PRN IV For Potassium 2.8 - 3.2 mEq/L ; Start 07/14/17 at 10:15 Potassium Chloride 100 ml @ 50 mls/hr Q2H PRN IV For Potassium 2.8 - 3.2 mEq/L ; Start 07/14/17 at 10:15 Potassium Bicarb/ Potassium Chloride (K-Lyte Cl Eff) 50 meq UNSCH PRN PO For Potassium 3.3 - 3.5 mEq/L; Start 07/14/17 at 10:15 Potassium Chloride 100 ml @ 25 mls/hr UNSCH PRN IV For Potassium 3.3 - 3.5 mEq /L; Start 07/14/17 at 10:15 Potassium Chloride 100 ml @ 50 mls/hr Q2H PRN IV For Potassium 3.3 - 3.5 mEq/L ; Start 07/14/17 at 10:15 Magnesium Sulfate 4 gm/Sodium Chloride 100 ml @ 50 mls/hr UNSCH PRN IV For Magnesium 0.9 - 1.1 mg/dL; Start 07/14/17 at 10:15 Magnesium Oxide (Mag-Ox) 800 mg UNSCH PRN PO For Magnesium 1.2 - 1.6 mg/dL; Start 07/14/17 at 10:15 Magnesium Sulfate 2 gm/Sodium Chloride 100 ml @ 50 mls/hr UNSCH PRN IV For Magnesium 1.2 - 1.6 mg/dL; Start 07/14/17 at 10:15 Potassium Phosphate (K-Phos) 2,000 mg Q4H PRN PO For Phosphorus < 2.5 mg/dL; Start 07/14/17 at 10:15 Sodium Phosphate 30 mmol/Sodium Chloride 250 ml @ 42 mls/hr UNSCH PRN IV For Phosphorus < 2.5 mg/dL; Start 07/14/17 at 10:15 Potassium Phosphate (K-Phos) 2,000 mg UNSCH PRN PO/TUBE SEE LABEL COMMENTS; Start 07/14/17 at 10:15 Potassium Phosphate 30 mmol/ Sodium Chloride 260 ml @ 42 mls/hr UNSCH PRN IV SEE LABEL COMMENTS; Start 07/14/17 at 10:15 Past, Family & Social History Past Medical History Endocrine: REPORTS HX OF: Diabetes mellitus, Graves disease Cardiovascular: REPORTS HX OF: Hypertension Gastrointestinal: REPORTS HX OF: Other GI history (prior GI bleed, pt finished c. diff treatment on friday 05/25) Musculoskeletal: REPORTS HX OF: Other musculoskeletal hx (L. shoulder pain worsen after his arm was injured in latest hospitalization) Cancer/Hematology: REPORTS HX OF: Anemia Past Surgical History Gastrointestinal: DENIES HX OF: Colectomy, total Musculoskeletal: REPORTS HX OF: Other musculoskeletal srg (resection of the first metatarsal head and sesamoids) Review of Systems Notes Patient is currently sedated on a ventilator Wound Assessment Vascular Assessment Color of Left Extremity: Mottled Sensation of Left Extremity: Diminished Temperature of Right Extremity: Warm Color of Right Extremity: WNL Sensation of Right Extremity: Diminished Wound Information - Wound One Wound Location: Left lateral foot Classification: FT- full thickness Exudate: Moderate Exudate Type: Purulent Debridement: No Fibrin Amount: None Granulation Tissue Color: [place], None Granulation Tissue Texture: N/A Exposed: No exposed bone, muscle, tendon Eschar: Yes Odor: No Periwound Appearance: FINDINGS: Erythema Dressings: Maxorb Extra AG Wound Two Wound Location: Left foot medial first met head Lab and Radiology Results Laboratory Laboratory Tests Test 07/14/17 01:00 07/14/17 14:33 White Blood Count 15.5 TH/MM3 9.2 TH/MM3 Red Blood Count 3.00 MIL/MM3 2.77 MIL/MM3 Hemoglobin 8.1 GM/DL 7.3 GM/DL Hematocrit 24.5 % 22.9 % Mean Corpuscular Volume 81.8 FL 82.4 FL Mean Corpuscular Hemoglobin 26.9 PG 26.5 PG Mean Corpuscular Hemoglobin Concent 32.9 % 32.1 % Red Cell Distribution Width 19.0 % 18.7 % Platelet Count 527 TH/MM3 475 TH/MM3 Mean Platelet Volume 7.0 FL 6.5 FL Neutrophils (%) (Auto) 74.9 % 92.0 % Lymphocytes (%) (Auto) 14.4 % 6.3 % Monocytes (%) (Auto) 10.0 % 1.6 % Eosinophils (%) (Auto) 0.4 % 0.0 % Basophils (%) (Auto) 0.3 % 0.1 % Neutrophils # (Auto) 11.6 TH/MM3 8.5 TH/MM3 Lymphocytes # (Auto) 2.2 TH/MM3 0.6 TH/MM3 Monocytes # (Auto) 1.6 TH/MM3 0.1 TH/MM3 Eosinophils # (Auto) 0.1 TH/MM3 0.0 TH/MM3 Basophils # (Auto) 0.0 TH/MM3 0.0 TH/MM3 CBC Comment DIFF FINAL DIFF FINAL Differential Comment Erythrocyte Sedimentation Rate GREATER THAN 140 mm/hr Laboratory Tests Test 07/14/17 01:00 07/14/17 14:33 Blood Urea Nitrogen 12 MG/DL 17 MG/DL Creatinine 0.72 MG/DL 0.64 MG/DL Random Glucose 107 MG/DL 200 MG/DL Total Protein 7.0 GM/DL Albumin 2.1 GM/DL Calcium Level 8.7 MG/DL 8.9 MG/DL Alkaline Phosphatase 109 U/L Aspartate Amino Transf (AST/SGOT) 30 U/L Alanine Aminotransferase (ALT/SGPT) 36 U/L Total Bilirubin 0.3 MG/DL Sodium Level 139 MEQ/L 142 MEQ/L Potassium Level 3.4 MEQ/L 3.6 MEQ/L Chloride Level 103 MEQ/L 108 MEQ/L Carbon Dioxide Level 24.7 MEQ/L 25.9 MEQ/L Anion Gap 11 MEQ/L 8 MEQ/L Estimat Glomerular Filtration Rate 107 ML/MIN 123 ML/MIN Lactic Acid Level 0.9 mmol/L Ammonia 24 MCMOL/L Total Creatine Kinase 60 U/L Troponin I 0.07 NG/ML 0.17 NG/ML C-Reactive Protein 17.00 MG/DL Thyroid Stimulating Hormone 3rd Gen 0.865 uIU/ML Phosphorus Level 3.9 MG/DL Magnesium Level 2.0 MG/DL Microbiology Date/Time Source Procedure Growth Status 07/14/17 01:00 Blood Peripheral Aerobic Blood Culture Pending Received 07/14/17 01:00 Blood Peripheral Anaerobic Blood Culture Pending Received 07/14/17 00:50 Blood Peripheral Aerobic Blood Culture Pending Received 07/14/17 00:50 Blood Peripheral Anaerobic Blood Culture Pending Received 07/14/17 01:00 Urine Catheterized Urine Urine Culture Pending Received 07/14/17 02:44 Wound Toe Gram Stain - Final Resulted 07/14/17 02:44 Wound Toe Wound Culture Pending Resulted Radiology Last Impressions Head CT 07/14/1742 Signed Impressions: Service Date/Time: Friday, July 14, 2017 02:09 - CONCLUSION: No acute intracranial abnormality is identified. Jose Miller MD Chest X-Ray 07/14/173 Signed Impressions: Service Date/Time: Friday, July 14, 2017 01:10 - CONCLUSION: Endotracheal tube in appropriate position with tip measuring 6.6 cm from the joce. There is atelectasis at the lung bases. Jose Miller MD Foot X-Ray 07/14/17 0000 Signed Impressions: Service Date/Time: Friday, July 14, 2017 01:44 - CONCLUSION: 1. Soft tissue air overlying the base of the first digit may be related to the laceration if the laceration is in this location. No radiopaque foreign body is identified. 2. Absence of the distal half of the first metatarsal likely related to prior resection. Jose Miller MD Ankle X-Ray 07/14/17 0000 Signed Impressions: Service Date/Time: Friday, July 14, 2017 01:48 - CONCLUSION: No acute left ankle abnormality is identified. 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 Ordered arterial segmental Dopplers. Patient may need OR debridement. We will await culture and sensitivity and arterial Dopplers. May require vascular consult. Infectious disease consult appreciated. Continue to follow. 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
[2017-07-14] MEDS: LATANOPROST 0.005% OPHT SOLN 2.5 ML BTL EACH EYE SCH (20:46)
[2017-07-14] MEDS: DONEPEZIL HCL 5 MG TAB PO SCH (20:48)
[2017-07-14] MEDS: ATORVASTATIN 40 MG TAB PO SCH (20:48)
[2017-07-15] VITALS (22 sets, daily range): BP systolic 121–168; BP diastolic 58–76; PULSE 52–100; RESP 16; TEMP 98.4–98.8; O2SAT 96–100
[2017-07-15] MEDS: CHLORHEXIDINE GLUCONATE 2 % 1 PACK (2 CLOTHS) TOP SCH (00:29)
[2017-07-15] MEDS: VANCOMYCIN INJ 1,500 MG in SODIUM CHLORID 0.9% 500 ML INJ 500 ML IV SCH ×2 (00:31→14:00)
[2017-07-15] MEDS: PROPOFOL 1000 MG/100 ML INJ 100 ML IV PRN (01:37)
[2017-07-15] MEDS: INSULIN NovoLIN REGULAR SUPPLEMENTAL SCALE SQ SCH ×6 (03:00→23:00)
[2017-07-15] MEDS: RESP: ALBUTEROL 2.5 MG/IPRATROPIUM 0.5 MG NEB (SCH) INH ×4 (04:06→20:33)
[2017-07-15] MEDS: CYCLOBENZAPRINE HCL 10 MG TAB PO SCH (04:21)
[2017-07-15] MEDS: HEPARIN SODIUM - SQ 10,000 UNITS/ML VIAL SQ SCH ×3 (04:21→20:10)
--- NOTE | 2017-07-15 06:32 | HHI.CCPN ---
Subjective Remarks/Hospital Course Hospital Course: 71-year-old gentleman with past medical history of hypertension, COPD, hyperlipidemia, recently treated for left foot osteomyelitis, presents today with altered mental status. As per , he had taken some flexeril and 1 oxycodone this morning. However, he went to sleep at around 2:30pm and that was the last normal as per . At about 4pm, she noticed he was having difficulty breathing and also dosing off but did not decide to come to the ED until hours later. Pt had recent admission 07/02/17 for osteomyelitis of left metatarsal and had debridement and biopsy and culture by Dr. Arvizu on . Culture grew MRSA and ID recommended vancomycin however per chart documentation patient refused. In the emergency department he was too lethargic to protect his airways and was intubated by ED attending. Subjective: 07/15: remains encephalopathic without significant improvements. wbc stable. MRSA in wound culture. Objective Vital Signs Date Time Temp Pulse Resp B/P (MAP) Pulse Ox O2 Delivery O2 Flow Rate FiO2 07/15/17 05:00 71 16 147/65 (92) 100 07/15/17 04:13 40 07/15/17 04:00 98.5 07/14/17 05:31 Ventilator 07/14/17 00:36 2.00 Result Diagram: 07/14/17 1433 07/14/17 1433 Other Results Laboratory Tests Test 07/14/17 11:08 Blood Gas Puncture Site LT RADIAL Blood Gas Patient Temperature 98.6 Blood Gas HCO3 23 mmol/L (22-26) Blood Gas Base Excess -1.1 mmol/L (-2-2) Blood Gas Oxygen Saturation 97 % (90-100) Arterial Blood pH 7.39 (7.380-7.420) Arterial Blood Partial Pressure CO2 39 mmHg (38-42) Arterial Blood Partial Pressure O2 181 mmHg (61-120) Arterial Blood Oxygen Content 11.8 Vol % (12.0-20.0) Arterial Blood Carboxyhemoglobin 0.4 % (0-4) Arterial Blood Methemoglobin 0.8 % (0-2) Blood Gas Hemoglobin 8.4 G/DL (12.0-16.0) Oxygen Delivery Device VENTILATOR Blood Gas Ventilator Setting Blood Gas Inspired Oxygen 40 % Imaging Last [address] 07/14/17 0043 Signed Impressions: Service Date/Time: Friday, July 14, 2017 02:09 - CONCLUSION: No acute intracranial abnormality is identified. Jose Miller MD Chest X-Ray 07/14/17 0043 Signed Impressions: Service Date/Time: Friday, July 14, 2017 01:10 - CONCLUSION: Endotracheal tube in appropriate position with tip measuring 6.6 cm from the joce. There is atelectasis at the lung bases. Jose Miller MD Foot X-Ray 07/14/17 0000 Signed Impressions: Service Date/Time: Friday, July 14, 2017 01:44 - CONCLUSION: 1. Soft tissue air overlying the base of the first digit may be related to the laceration if the laceration is in this location. No radiopaque foreign body is identified. 2. Absence of the distal half of the first metatarsal likely related to prior resection. Jose Miller MD Ankle X-Ray 07/14/17 0000 Signed Impressions: Service Date/Time: Friday, July 14, 2017 01:48 - CONCLUSION: No acute left ankle abnormality is identified. Jose Miller MD Objective Remarks GENERAL: Elderly man in severe distress, sedated and intubated. SKIN: Focused skin assessment warm/dry. HEAD: Atraumatic. Normocephalic. EYES: Pupils equal and round at 4mm bilaterally. No scleral icterus. No injection or drainage. ENT: No nasal bleeding or discharge. Mucous membranes pink and moist. NECK: Trachea midline. No JVD. CARDIOVASCULAR: Regular rate and rhythm. RESPIRATORY: intubated, fio2 40%, equal chest rise. GASTROINTESTINAL: Abdomen soft, non-tender, nondistended. MUSCULOSKELETAL: Left foot: +Left 1st MTP wound 3cm by 2cm dorsum of 1st MTP is foul smelling with surrounding erythema. +Purulent discharge. Distal phalanx black in color. DP 1+. NEUROLOGICAL: Moving extremities spontaneous and weakly withdraws x 4. does not follow commands. grimaces to painful stimuli. does not open eyes. A/P Assessment and Plan Assessment: 71yM with dementia and now septic wound infection, complicated by metabolic encephalopathy secondary to sepsis and acute hypoxic and hypercarbic respiratory failure. off pathway and remains critically ill. will work towards minimizing sedation today and see if neuro exam improves, if not may need MRI/ EEG to further eval. Acute hypoxic and hypercarbic respiratory failure - SBT today. failing SBT yesterday for mental status - Vent bundle - wean fio2 for spo2 > 90% - nebs, hob at 30 degrees Metabolic encephalopathy - secondary to sepsis - CT head negative - frequent neuro checks - minimize sedation. daily sedation vacation - prop/fent for goal RASS -1. Diabetic ulcer - History of osteomyelitis -MRSA - Vancomycin - Podiatry evaluation Sepsis - secondary to foot infection - continue MIVF and abx. Diabetes - Insulin sliding Dementia - Aricept Diabetic neuropathy - hold Gabapentin given poor neurologic exam. will restart if neuro exam improves. DVT GI prophylaxis - Teds SCDs - Subcutaneous heparin - Pepcid Critical Care: The total critical care time was 33 minutes. Time to perform other separately billable procedures was not included in the critical care time. Hamzah Levy MD Jul 15, 2017 06:32
[2017-07-15 06:56] LABS: AUTOMATED NEUTROPHIL # 13.2 TH/MM3 (1.8-7.7); BASOPHIL % 0.1 % (0.0-2.0); HEMATOCRIT 24.9 % (39.0-51.0); HEMO FLAGS DIFF FINAL; LYMPH % 5.5 % (9.0-44.0); LYMPHOCYTE # 0.8 TH/MM3 (1.0-4.8); MEAN CELL VOLUME 84.4 FL (80.0-100.0); MEAN CORPUSCULAR HEMOGLOBIN 26.7 PG (27.0-34.0); MEAN CORPUSCULAR HGB CONC 31.6 % (32.0-36.0); MONO % 6.8 % (0.0-8.0); NEUT % 87.6 % (16.0-70.0); PLATELET COUNT 509 TH/MM3 (150-450); RED BLOOD COUNT 2.95 MIL/MM3 (4.50-5.90); RED CELL DISTRIBUTION WIDTH 18.1 % (11.6-17.2); WHITE BLOOD COUNT 15.1 TH/MM3 (4.0-11.0)
[2017-07-15 07:04] LABS: ALT (GPT) 29 U/L (12-78); ANION GAP 7 MEQ/L (5-15); AST (GOT) 23 U/L (15-37); BLOOD UREA NITROGEN 22 MG/DL (7-18); CHLORIDE 108 MEQ/L (98-107); GLOMERULAR FILTRATION RATE 106 ML/MIN (>89); MAGNESIUM 2.1 MG/DL (1.5-2.5); POTASSIUM 4.1 MEQ/L (3.5-5.1); SODIUM (NA) 140 MEQ/L (136-145)
[2017-07-15 07:05] LABS: ALKALINE PHOSPHATASE 132 U/L (45-117); TOTAL BILIRUBIN ADULT 0.1 MG/DL (0.2-1.0)
[2017-07-15] MEDS: LACTOBACILLUS ACIDOPHILUS TAB PO SCH ×3 (08:00→17:00)
[2017-07-15] MEDS: MULTIVITAMINS/MINERALS THERAPEUTIC TAB PO SCH (09:00)
[2017-07-15] MEDS: FERROUS SULFATE 325 MG (65 MG ELEMENTAL IRON) TAB PO SCH ×2 (09:00→17:15)
[2017-07-15] MEDS: ARTIFICIAL TEARS OPTH SOLN 15 ML BTL EACH EYE SCH ×3 (09:00→17:15)
[2017-07-15] MEDS: ASCORBIC ACID 500 MG TAB PO SCH (09:00)
[2017-07-15] MEDS: BUDESONIDE-FORMOTEROL 80/4.5 MCG INHALER INH SCH ×2 (09:00→20:03)
[2017-07-15] MEDS: CITALOPRAM HYDROBROMIDE 20 MG TAB PO SCH (09:00)
[2017-07-15] MEDS: FAMOTIDINE 40 MG/5 ML LIQ 50 ML BTL NG SCH ×2 (09:00→20:02)
[2017-07-15] MEDS: SODIUM CHLORIDE 0.9% FLUSH 10 ML FLUSH SCH ×2 (09:00→20:06)
[2017-07-15] MEDS: ASPIRIN 81 MG CHEW TAB CHEW SCH (09:00)
[2017-07-15] MEDS: DOCUSATE SODIUM 50 MG/SENNA 8.6 MG TAB PO SCH ×3 (09:00→20:23)
[2017-07-15] MEDS: SODIUM CHLOR 0.9% 1000 ML INJ 1,000 ML IV SCH (10:50)
--- NOTE | 2017-07-15 11:17 | RADRPT ---
EXAM DATE/TIME: 07/14/2017 00:00 [place] COMPARISON: No previous studies available for comparison. 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 Pulsed-cuff waveform tracings and pressures were recorded. Ankle-brachial indices and toe-brachial indices were calculated. PRESSURES (mmHg): Brachial (arm): Right 141 Left IV SITE Lower Thigh: Right 153 Left 135 Calf: Right 148 Left 86 Ankle: Right 132 Left 53 Toe: Right 102 Left 0 BRIAN: Right 0.94 Left 0.38 TBI: Right 0.72 Left 0.00 PULSED CUFF WAVEFORMS: Monophasic tracings bilaterally, severely blunted distally on the left CONCLUSION: Severe left leg runoff disease with undetectable toe circulation Jose Segura MD on July 15, 2017 at 11:14 Board Certified Radiologist. This report was verified electronically.
--- NOTE | 2017-07-15 12:05 | HHI.IDPN ---
Note Infectious Disease Note Patient was extubated 20 mins ago. On nasal O2. No distress. Acknowledges pain in left foot. Afebrile. The patient has had a history of C-difficile colitis and yet refused treatment with antibiotics. He was discharged home without antibiotics. His is at bedside. She noted that yesterday the patient was mostly sleepy and was having some respiratory problems. He took his oxycodone which tends to making very drowsy early in the day and later in the day he continued to have problems with staying awake. He was brought to the emergency department. Late yesterday evening and in egg smeller hours. His mental status was called and he was intubated in the emergency department. His temperature was 100.2 degrees and heart rate was 100 and white count was 15.5. He was noted to have necrosis at the left great toe and also there was foul-smelling odor to the great toe and purulent discharge. A culture was taken. Blood cultures were also taken. The patient was admitted to the intensive care unit for further management. He is currently on the ventilator and unresponsive. Information is obtained from medical record. X-ray of the foot showed soft tissue here overlying the base of the first digit. PAST MEDICAL HISTORY 1. Hypertension 2. COPD 3. Hyperlipidemia 4. dementia 5. Transient ischemic attack. 6. History of shingles 7. Glaucoma 8. History of appendectomy. 9. History of back surgery. 10. History of penile implant. 11. History of surgery for arachnoiditis. 12. Carotid artery surgery 13. History of C-difficile colitis. 14. Left knee septic arthritis. ALLERGIES ERYTHROMYCIN METRONIDAZOLE PENICILLIN SULFAMETHOXAZOLE TRIMETHOPRIM OXYCODONE MORPHINE MEPERIDINE ASPIRIN ACETAMINOPHEN MRI precaution. PAST MEDICAL HISTORY Left knee septic arthritis. OBJECTIVE: Vital Signs Date Time Temp Pulse Resp B/P (MAP) Pulse Ox O2 Delivery O2 Flow Rate FiO2 07/15/17 11:25 96 Nasal Cannula 6 07/15/17 11:25 96 Nasal Cannula 6.00 07/15/17 08:27 BiPAP/CPAP 40 40 07/15/17 08:19 100 40 07/15/17 07:00 98.8 73 16 142/67 (92) 99 07/15/17 06:00 72 07/15/17 06:00 98.5 72 16 134/62 (86) 98 07/15/17 05:00 71 16 147/65 (92) 100 8/30/17 04:13 100 40 07/15/17 04:00 40 07/15/17 04:00 64 07/15/17 04:00 98.5 64 16 141/63 (89) 100 07/15/17 03:00 98.6 53 16 142/61 (88) 100 07/15/17 02:00 54 07/15/17 02:00 98.5 52 16 133/60 (84) 99 07/15/17 01:12 99 40 07/15/17 01:00 98.5 53 16 121/58 (79) 98 07/15/17 00:00 52 07/15/17 00:00 98.8 52 16 127/62 (83) 98 07/15/17 00:00 40 07/14/17 23:00 98.8 51 16 131/61 (84) 100 07/14/17 22:12 100 40 07/14/17 22:00 53 07/14/17 22:00 98.9 53 16 143/66 (91) 100 07/14/17 21:00 51 16 126/60 (82) 99 07/14/17 20:00 98 40 07/14/17 20:00 52 07/14/17 20:00 98.9 52 16 130/62 (84) 98 07/14/17 20:00 40 07/14/17 18:00 63 07/14/17 16:06 100 40 07/14/17 16:00 54 Laboratory Tests Test 07/14/17 01:00 07/14/17 14:33 07/15/17 04:30 White Blood Count 15.5 TH/MM3 9.2 TH/MM3 15.1 TH/MM3 Red Blood Count 3.00 MIL/MM3 2.77 MIL/MM3 2.95 MIL/MM3 Hemoglobin 8.1 GM/DL 7.3 GM/DL 7.9 GM/DL Hematocrit 24.5 % 22.9 % 24.9 % Mean Corpuscular Volume 81.8 FL 82.4 FL 84.4 FL Mean Corpuscular Hemoglobin 26.9 PG 26.5 PG 26.7 PG Mean Corpuscular Hemoglobin Concent 32.9 % 32.1 % 31.6 % Red Cell Distribution Width 19.0 % 18.7 % 18.1 % Platelet Count 527 TH/MM3 475 TH/MM3 509 TH/MM3 Mean Platelet Volume 7.0 FL 6.5 FL 7.2 FL Neutrophils (%) (Auto) 74.9 % 92.0 % 87.6 % Lymphocytes (%) (Auto) 14.4 % 6.3 % 5.5 % Monocytes (%) (Auto) 10.0 % 1.6 % 6.8 % Eosinophils (%) (Auto) 0.4 % 0.0 % 0.0 % Basophils (%) (Auto) 0.3 % 0.1 % 0.1 % Neutrophils # (Auto) 11.6 TH/MM3 8.5 TH/MM3 13.2 TH/MM3 Lymphocytes # (Auto) 2.2 TH/MM3 0.6 TH/MM3 0.8 TH/MM3 Monocytes # (Auto) 1.6 TH/MM3 0.1 TH/MM3 1.0 TH/MM3 Eosinophils # (Auto) 0.1 TH/MM3 0.0 TH/MM3 0.0 TH/MM3 Basophils # (Auto) 0.0 TH/MM3 0.0 TH/MM3 0.0 TH/MM3 CBC Comment DIFF FINAL DIFF FINAL DIFF FINAL Differential Comment Erythrocyte Sedimentation Rate GREATER THAN 140 mm/hr Laboratory Tests Test 07/14/17 01:00 07/14/17 14:33 07/15/17 04:30 Blood Urea Nitrogen 12 MG/DL 17 MG/DL 22 MG/DL Creatinine 0.72 MG/DL 0.64 MG/DL 0.73 MG/DL Random Glucose 107 MG/DL 200 MG/DL 144 MG/DL Total Protein 7.0 GM/DL 6.5 GM/DL Albumin 2.1 GM/DL 1.8 GM/DL Calcium Level 8.7 MG/DL 8.9 MG/DL 8.9 MG/DL Alkaline Phosphatase 109 U/L 132 U/L Aspartate Amino Transf (AST/SGOT) 30 U/L 23 U/L Alanine Aminotransferase (ALT/SGPT) 36 U/L 29 U/L Total Bilirubin 0.3 MG/DL 0.1 MG/DL Sodium Level 139 MEQ/L 142 MEQ/L 140 MEQ/L Potassium Level 3.4 MEQ/L 3.6 MEQ/L 4.1 MEQ/L Chloride Level 103 MEQ/L 108 MEQ/L 108 MEQ/L Carbon Dioxide Level 24.7 MEQ/L 25.9 MEQ/L 25.0 MEQ/L Anion Gap 11 MEQ/L 8 MEQ/L 7 MEQ/L Estimat Glomerular Filtration Rate 107 ML/MIN 123 ML/MIN 106 ML/MIN Lactic Acid Level 0.9 mmol/L Ammonia 24 MCMOL/L Total Creatine Kinase 60 U/L Troponin I 0.07 NG/ML 0.17 NG/ML C-Reactive Protein 17.00 MG/DL Thyroid Stimulating Hormone 3rd Gen 0.865 uIU/ML Phosphorus Level 3.9 MG/DL 5.0 MG/DL Magnesium Level 2.0 MG/DL 2.1 MG/DL Microbiology Date/Time Source Procedure Growth Status 07/14/17 01:00 Blood Peripheral Aerobic Blood Culture - Preliminary NO GROWTH IN 1 DAY Resulted 07/14/17 01:00 Blood Peripheral Anaerobic Blood Culture - Preliminary NO GROWTH IN 1 DAY Resulted 07/14/17 00:50 Blood Peripheral Aerobic Blood Culture - Preliminary NO GROWTH IN 1 DAY Resulted 07/14/17 00:50 Blood Peripheral Anaerobic Blood Culture - Preliminary NO GROWTH IN 1 DAY Resulted 07/14/17 01:00 Urine Catheterized Urine Urine Culture Pending Received 07/14/17 02:44 Wound Toe Gram Stain - Final Resulted 07/14/17 02:44 Wound Toe Wound Culture Pending Resulted IMAGING: Head CT 07/14/1742 Signed Impressions: Service Date/Time: Friday, July 14, 2017 02:09 - CONCLUSION: No acute intracranial abnormality is identified. Jose Miller MD Chest X-Ray 07/14/1742 Signed Impressions: Service Date/Time: Friday, July 14, 2017 01:10 - CONCLUSION: Endotracheal tube in appropriate position with tip measuring 6.6 cm from the joce. There is atelectasis at the lung bases. Jose Miller MD Foot X-Ray 07/14/17 0000 Signed Impressions: Service Date/Time: Friday, July 14, 2017 01:44 - CONCLUSION: 1. Soft tissue air overlying the base of the first digit may be related to the laceration if the laceration is in this location. No radiopaque foreign body is identified. 2. Absence of the distal half of the first metatarsal likely related to prior resection. Jose Miller MD Ankle X-Ray 07/14/17 0000 Signed Impressions: Service Date/Time: Friday, July 14, 2017 01:48 - CONCLUSION: No acute left ankle abnormality is identified. Jose Miller MD PHYSICAL EXAMINATION: IN GENERAL: o acute distress. He is on the ventilator and is unresponsive. HEENT: EOMI, SHABBIR. No icterus NECK: No swelling or adenopathy. LUNGS: Clear breath sounds. HEART: Regular S1-S2. No audible murmur. ABDOMEN: Bowel sounds present, flat, nontender. EXTREMITIES: The left great toe remains purpuric throughout the entire surface of that toe. The great toe base laterally at the mid aspect has a patch of dry necrotic change with sutures embedded within the tissue. The remaining other extremities have no clubbing or cyanosis or edema to. SKIN: No rash. NEUROLOGIC: Non focal. PSYCHIATRIC: Calm. IMPRESSION 1. Sepsis in patient who presented with altered mental status fever, tachycardia and elevated white blood cell count and also with left foot osteomyelitis and now with purulent draining wound with necrotic changes indicating possible gangrene and also possible ischemia involving the left the left great toe. Possible focus of sepsis. 2. 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 The patient declined antibiotic treatment at that time because of history of C-difficile colitis. 3. Acute respiratory failure in a patient who presented with altered mental status and likely had declined of the respiratory status due to medication effect. RECOMMENDATIONS 1. Continue to treat the patient with intravenous vancomycin to cover MRSA. 2. Continue p.o. vancomycin for C-difficile. 3. Continue Lactinex also for C-difficile. 4. Monitor blood cultures. 5. Monitor the wound culture Cullen Long MD Jul 15, 2017 12:05
[2017-07-15] MEDS: HYDROmorphone HCL PF 1 MG/ML VIAL IV PRN (12:59)
[2017-07-15] MEDS ORDERED: HYDROmorphone HCL PF 1 MG/ML VIAL IV ONE (15:00)
[2017-07-15] MEDS ORDERED: HYDROmorphone HCL PF 1 MG/ML VIAL IV PUSH ONE (15:15)
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
[2017-07-15] MEDS: ATORVASTATIN 40 MG TAB PO SCH (20:03)
[2017-07-15] MEDS: DONEPEZIL HCL 5 MG TAB PO SCH (20:04)
[2017-07-15] MEDS: LATANOPROST 0.005% OPHT SOLN 2.5 ML BTL EACH EYE SCH (20:06)
[2017-07-16] VITALS (15 sets, daily range): BP systolic 170–194; BP diastolic 78–96; PULSE 97–111; RESP 15–20; TEMP 97.9–99; O2SAT 94–100
[2017-07-16] MEDS: HYDROmorphone HCL PF 1 MG/ML VIAL IV PRN ×6 (00:18→22:49)
[2017-07-16] MEDS: SODIUM CHLOR 0.9% 1000 ML INJ 1,000 ML IV SCH ×2 (00:19→10:31)
[2017-07-16] MEDS ORDERED: PHARMACY ORDERED LAB ONE (01:45)
[2017-07-16] MEDS: INSULIN NovoLIN REGULAR SUPPLEMENTAL SCALE SQ SCH ×4 (03:00→15:00)
[2017-07-16] MEDS: RESP: ALBUTEROL 2.5 MG/IPRATROPIUM 0.5 MG NEB (SCH) INH ×4 (03:30→21:02)
[2017-07-16] MEDS: CHLORHEXIDINE GLUCONATE 2 % 1 PACK (2 CLOTHS) TOP SCH (04:00)
[2017-07-16] MEDS: HEPARIN SODIUM - SQ 10,000 UNITS/ML VIAL SQ SCH ×4 (04:18→21:11)
[2017-07-16 05:15] LABS: HEMATOCRIT 25.3 % (39.0-51.0); MEAN CELL VOLUME 81.8 FL (80.0-100.0); MEAN CORPUSCULAR HEMOGLOBIN 25.3 PG (27.0-34.0); PLATELET COUNT 598 TH/MM3 (150-450); RED CELL DISTRIBUTION WIDTH 18.5 % (11.6-17.2); REVIEW FLAG FINAL; WHITE BLOOD COUNT 15.4 TH/MM3 (4.0-11.0)
[2017-07-16 05:45] LABS: BICARBONATE 23.4 MEQ/L (21.0-32.0)
[2017-07-16] MEDS: LACTOBACILLUS ACIDOPHILUS TAB PO SCH ×3 (05:59→17:21)
[2017-07-16] MEDS: VANCOMYCIN INJ 1,500 MG in SODIUM CHLORID 0.9% 500 ML INJ 500 ML IV SCH (06:01)
[2017-07-16] MEDS ORDERED: FUROSEMIDE 40 MG/4 ML VIAL ONE (07:12)
[2017-07-16] MEDS ORDERED: DILTIAZEM HCL 25 MG/5 ML VIAL ONE (07:21)
--- NOTE | 2017-07-16 07:31 | HHI.CCPN ---
Subjective Remarks/Hospital Course Hospital Course: 71-year-old gentleman with past medical history of hypertension, COPD, hyperlipidemia, recently treated for left foot osteomyelitis, presents today with altered mental status. As per , he had taken some flexeril and 1 oxycodone this morning. However, he went to sleep at around 2:30pm and that was the last normal as per . At about 4pm, she noticed he was having difficulty breathing and also dosing off but did not decide to come to the ED until hours later. Pt had recent admission 07/02/17 for osteomyelitis of left metatarsal and had debridement and biopsy and culture by Dr. Arvizu on . Culture grew MRSA and ID recommended vancomycin however per chart documentation patient refused. In the emergency department he was too lethargic to protect his airways and was intubated by ED attending. Subjective: 07/15: remains encephalopathic without significant improvements. wbc stable. MRSA in wound culture. 07/16: extubated yesterday, did well overnight on 2L nc. This morning, became acutely tachycardic which appears to be afib RVR and then became dyspneic and hypoxic. physical exam pertinent for bilateral crackles throughout all lung leonard, likely acute flash pulmonary edema secondary to afib secondary to volume overload. lasix 80mg iv x 1 given, patient placed on bipap, iv diltiazem given. Objective Vital Signs Date Time Temp Pulse Resp B/P (MAP) Pulse Ox O2 Delivery O2 Flow Rate FiO2 07/16/17 07:15 98 70 07/16/17 06:00 109 07/16/17 04:00 98.6 16 176/81 (112) 07/15/17 20:33 Nasal Cannula 2.00 Intake and Output 07/16/17 07/16/17 07/17/17 08:00 16:00 00:00 Intake Total 532 ml Output Total 1350 ml Balance -818 ml Result Diagram: 07/16/17 04307/16/17 043 Imaging Last [address] 07/14/1742 Signed Impressions: Service Date/Time: Friday, July 14, 2017 02:09 - CONCLUSION: No acute intracranial abnormality is identified. Jose Miller MD Chest X-Ray 07/14/1742 Signed Impressions: Service Date/Time: Friday, July 14, 2017 01:10 - CONCLUSION: Endotracheal tube in appropriate position with tip measuring 6.6 cm from the joce. There is atelectasis at the lung bases. Jose Miller MD Foot X-Ray 07/14/17 0000 Signed Impressions: Service Date/Time: Friday, July 14, 2017 01:44 - CONCLUSION: 1. Soft tissue air overlying the base of the first digit may be related to the laceration if the laceration is in this location. No radiopaque foreign body is identified. 2. Absence of the distal half of the first metatarsal likely related to prior resection. Jose Miller MD Ankle X-Ray 07/14/17 0000 Signed Impressions: Service Date/Time: Friday, July 14, 2017 01:48 - CONCLUSION: No acute left ankle abnormality is identified. Jose Miller MD Objective Remarks GENERAL: Elderly man in severe distress, on NRB SKIN: Focused skin assessment warm/dry. HEAD: Atraumatic. Normocephalic. EYES: Pupils equal and round at 4mm bilaterally. No scleral icterus. No injection or drainage. ENT: No nasal bleeding or discharge. Mucous membranes pink and moist. NECK: Trachea midline. +JVD CARDIOVASCULAR: tachycardic rate, irregularly irregular rhythm. afib by EKG. RESPIRATORY: on NRB, tachypneic and in distress, coarse bilateral crackles throughout. GASTROINTESTINAL: Abdomen soft, non-tender, nondistended. MUSCULOSKELETAL: Left foot: +Left 1st MTP wound 3cm by 2cm dorsum of 1st MTP is foul smelling with surrounding erythema. +Purulent discharge. Distal phalanx black in color. DP 1+. NEUROLOGICAL: awake, alert, RASS +1 but anxious and in distress. follows commands. A/P Assessment and Plan Assessment: 71yM with dementia and now septic wound infection, complicated by metabolic encephalopathy secondary to sepsis and acute hypoxic and hypercarbic respiratory failure. Was extubated and on pathway, but now with acute recurrent hypoxemia which is likely secondary to acute volume overload, afib RVR. critically ill this morning and in need of emergent intervention to prevent further decompensation. Acute hypoxic respiratory failure Intravascular Volume overload Pulmonary Edema - place on BiPAP - lasix 80mg iv x 1 - wean fio2 for spo2 > 90% - nebs, hob at 30 degrees Atrial Fibrillation with Rapid Ventricular Response - likely secondary to volume overload - no history of afib. if rapidly transitions back to NSR, then will not anticoagulate. - diltiazem iv - aggressive forced diuresis. Metabolic encephalopathy- resolving. - secondary to sepsis - CT head negative - frequent neuro checks Diabetic ulcer - History of osteomyelitis -MRSA - Vancomycin - Podiatry evaluation - Vascular surgery evaluation. likely needs LE revascularization evaluation. Sepsis - secondary to foot infection - stop mivf due to volume overload. end-organ damage improving. Diabetes - Insulin sliding Dementia - Aricept Diabetic neuropathy - hold Gabapentin. with improving mental status, may need to restart it for chronic pain in the near future. DVT GI prophylaxis - Teds SCDs - Subcutaneous heparin - Pepcid Critical Care: The total critical care time was 52 minutes. Time to perform other separately billable procedures was not included in the critical care time. Hamzah Levy MD Jul 16, 2017 07:31
[2017-07-16] MEDS: POTASSIUM CHLOR 20 MEQ PREMIX 100 ML IV SCH ×2 (07:45→09:45)
[2017-07-16] MEDS: MAGNESIUM SULFATE 1 GM PREMIX 100 ML IV SCH ×2 (07:45→08:45)
[2017-07-16] MEDS: ASPIRIN 81 MG CHEW TAB CHEW SCH (08:51)
[2017-07-16] MEDS: FAMOTIDINE 40 MG/5 ML LIQ 50 ML BTL NG SCH ×2 (08:52→20:54)
[2017-07-16] MEDS: ARTIFICIAL TEARS OPTH SOLN 15 ML BTL EACH EYE SCH ×3 (08:52→17:24)
[2017-07-16] MEDS: ASCORBIC ACID 500 MG TAB PO SCH (08:52)
[2017-07-16] MEDS: FERROUS SULFATE 325 MG (65 MG ELEMENTAL IRON) TAB PO SCH ×2 (08:52→17:21)
[2017-07-16] MEDS: CITALOPRAM HYDROBROMIDE 20 MG TAB PO SCH (08:52)
[2017-07-16] MEDS: BUDESONIDE-FORMOTEROL 80/4.5 MCG INHALER INH SCH ×2 (08:52→20:54)
[2017-07-16] MEDS: DOCUSATE SODIUM 50 MG/SENNA 8.6 MG TAB PO SCH ×2 (08:52→20:52)
[2017-07-16] MEDS: MULTIVITAMINS/MINERALS THERAPEUTIC TAB PO SCH (08:52)
[2017-07-16] MEDS: SODIUM CHLORIDE 0.9% FLUSH 10 ML FLUSH SCH ×2 (09:00→20:54)
[2017-07-16] MEDS ORDERED: POTASSIUM CHLORIDE 20 MEQ CONTROLLED RELEASE TAB PO ONE (11:00)
--- NOTE | 2017-07-16 14:19 | PQ ---
Physician Query Response Document PATIENT: MIKAL MARIA : 1945 ADMIT DATE: 07/14/2017 2:55 AM DISCH DATE: RESPONDING PROVIDER #: agreene QUERY TEXT: Clarification of Clinical Diagnostic Findings SEPSIS IS DOCUMENTED IN THE MEDICAL RECORD. PLEASE DEFINE THE CHARACTER OF SEPSIS: 1) SEPSIS : WITHOUT ORGAN DYSFUNCTION 2) SEVERE SEPSIS : (+) ORGAN DYSFUNCTION OR LACTIC ACID > 2 3) SEPTIC SHOCK : HYPOTENSION UNRESPONSIVE TO FLUID RESUSCITATION OR LACTIC ACID >/ = 4 4) OTHER, PLEASE SPECIFY PLEASE CALL [facility] @ [phone] FOR ASSISTANCE The patient's Clinical Indicators include: PER PROGRESS NOTE 07/15/17: A/P Acute hypoxic and hypercarbic respiratory failure Metabolic encephalopathy - secondary to sepsis Sepsis - secondary to foot infection 07/14/17 WBC=15.5, LACTIC ACID =0.9 07/14/17 TEMP= 101.2 RECTAL, IE=865, RR=33, B/P=172/101 Query created by: Pauline Dominguez on 07/16/2017 11:57 AM RESPONSE TEXT: Patient meets criteria for Severe Sepsis with end-organ dysfunction including renal injury and metabo lic encephalopathy. Electronically signed by: Hamzah Levy MD 07/16/2017 2:15 PM
--- NOTE | 2017-07-16 14:43 | HHI.IDPN ---
Note Infectious Disease Note Patient on nasal O2. No distress. Has pain in left foot. Afebrile. Discussed with RN. He was SOB this am and developed arythmia. Given and Diuretics and he diuresed 4L. Wound culture has MRSA. urine culture < [id number] col of pseudomonas. The patient has had a history of C-difficile colitis and previously refused treatment with antibiotics. PAST MEDICAL HISTORY 1. Hypertension 2. COPD 3. Hyperlipidemia 4. dementia 5. Transient ischemic attack. 6. History of shingles 7. Glaucoma 8. History of appendectomy. 9. History of back surgery. 10. History of penile implant. 11. History of surgery for arachnoiditis. 12. Carotid artery surgery 13. History of C-difficile colitis. 14. Left knee septic arthritis. ALLERGIES ERYTHROMYCIN METRONIDAZOLE PENICILLIN SULFAMETHOXAZOLE TRIMETHOPRIM OXYCODONE MORPHINE MEPERIDINE ASPIRIN ACETAMINOPHEN MRI precaution. OBJECTIVE: Vital Signs Date Time Temp Pulse Resp B/P (MAP) Pulse Ox O2 Delivery O2 Flow Rate FiO2 07/16/17 12:00 97.9 106 20 178/87 (117) 98 07/16/17 12:00 100 07/16/17 10:00 97 07/16/17 08:00 98.3 100 170/78 (108) 07/16/17 08:00 100 07/16/17 07:15 98 70 07/16/17 06:00 109 07/16/17 04:00 98.6 104 16 176/81 (112) 94 07/16/17 04:00 100 07/16/17 02:22 99 07/16/17 00:00 98.6 101 15 100 07/16/17 00:00 97 07/15/17 22:00 95 07/15/17 20:33 96 Nasal Cannula 2.00 07/15/17 20:00 98.4 100 16 168/76 (106) 99 07/15/17 20:00 100 07/15/17 18:00 72 07/15/17 16:20 98 Nasal Cannula 4.00 07/15/17 16:00 97 Laboratory Tests Test 07/15/17 04:30 07/16/17 04:32 White Blood Count 15.1 TH/MM3 15.4 TH/MM3 Red Blood Count 2.95 MIL/MM3 3.10 MIL/MM3 Hemoglobin 7.9 GM/DL 7.8 GM/DL Hematocrit 24.9 % 25.3 % Mean Corpuscular Volume 84.4 FL 81.8 FL Mean Corpuscular Hemoglobin 26.7 PG 25.3 PG Mean Corpuscular Hemoglobin Concent 31.6 % 31.0 % Red Cell Distribution Width 18.1 % 18.5 % Platelet Count 509 TH/MM3 598 TH/MM3 Mean Platelet Volume 7.2 FL 6.4 FL Neutrophils (%) (Auto) 87.6 % Lymphocytes (%) (Auto) 5.5 % Monocytes (%) (Auto) 6.8 % Eosinophils (%) (Auto) 0.0 % Basophils (%) (Auto) 0.1 % Neutrophils # (Auto) 13.2 TH/MM3 Lymphocytes # (Auto) 0.8 TH/MM3 Monocytes # (Auto) 1.0 TH/MM3 Eosinophils # (Auto) 0.0 TH/MM3 Basophils # (Auto) 0.0 TH/MM3 CBC Comment DIFF FINAL Differential Comment Laboratory Tests Test 07/15/17 04:30 07/16/17 04:32 Blood Urea Nitrogen 22 MG/DL 19 MG/DL Creatinine 0.73 MG/DL 0.52 MG/DL Random Glucose 144 MG/DL 91 MG/DL Total Protein 6.5 GM/DL Albumin 1.8 GM/DL Calcium Level 8.9 MG/DL 8.6 MG/DL Phosphorus Level 5.0 MG/DL Magnesium Level 2.1 MG/DL Alkaline Phosphatase 132 U/L Aspartate Amino Transf (AST/SGOT) 23 U/L Alanine Aminotransferase (ALT/SGPT) 29 U/L Total Bilirubin 0.1 MG/DL Sodium Level 140 MEQ/L 144 MEQ/L Potassium Level 4.1 MEQ/L 3.0 MEQ/L Chloride Level 108 MEQ/L 110 MEQ/L Carbon Dioxide Level 25.0 MEQ/L 23.4 MEQ/L Anion Gap 7 MEQ/L 11 MEQ/L Estimat Glomerular Filtration Rate 106 ML/MIN 156 ML/MIN Microbiology Date/Time Source Procedure Growth Status 07/14/17 01:00 Blood Peripheral Aerobic Blood Culture - Preliminary NO GROWTH IN 2 DAYS Resulted 07/14/17 01:00 Blood Peripheral Anaerobic Blood Culture - Preliminary NO GROWTH IN 2 DAYS Resulted 07/14/17 00:50 Blood Peripheral Aerobic Blood Culture - Preliminary NO GROWTH IN 2 DAYS Resulted 07/14/17 00:50 Blood Peripheral Anaerobic Blood Culture - Preliminary NO GROWTH IN 2 DAYS Resulted 07/14/17 01:00 Urine Catheterized Urine Urine Culture - Final Pseudomonas Luteola Complete 07/14/17 02:44 Wound Toe Gram Stain - Final Complete 07/14/17 02:44 Wound Culture - Final S. Aureus Mrsa Complete IMAGING: Head CT 07/14/173 Signed Impressions: Service Date/Time: Friday, July 14, 2017 02:09 - CONCLUSION: No acute intracranial abnormality is identified. Jose Miller MD Chest X-Ray 07/14/1742 Signed Impressions: Service Date/Time: Friday, July 14, 2017 01:10 - CONCLUSION: Endotracheal tube in appropriate position with tip measuring 6.6 cm from the joce. There is atelectasis at the lung bases. Jose Miller MD Foot X-Ray 07/14/17 0000 Signed Impressions: Service Date/Time: Friday, July 14, 2017 01:44 - CONCLUSION: 1. Soft tissue air overlying the base of the first digit may be related to the laceration if the laceration is in this location. No radiopaque foreign body is identified. 2. Absence of the distal half of the first metatarsal likely related to prior resection. Jose Miller MD Ankle X-Ray 07/14/17 0000 Signed Impressions: Service Date/Time: Friday, July 14, 2017 01:48 - CONCLUSION: No acute left ankle abnormality is identified. Jose Miller MD PHYSICAL EXAMINATION: IN GENERAL: No acute distress. Awake and alert. HEENT: EOMI, SHABBIR. No icterus NECK: No swelling or adenopathy. LUNGS: Clear breath sounds. HEART: Regular S1-S2. No audible murmur. ABDOMEN: Bowel sounds present, flat, nontender. EXTREMITIES: The left great toe remains purpuric throughout the entire surface of that toe. The great toe base laterally at the mid aspect has dry necrotic change. The other extremities have no CCE. SKIN: No rash. NEUROLOGIC: Non focal. PSYCHIATRIC: Calm. IMPRESSION 1. Sepsis in patient who presented with altered mental status fever, tachycardia and elevated white blood cell count and also with left foot osteomyelitis and now with purulent draining wound with necrotic changes indicating possible gangrene and also possible ischemia involving the left the left great toe. Possible focus of sepsis. 2. 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 The patient declined antibiotic treatment last admission because of history of C-difficile colitis. Vascular surgery consulted. 3. Acute respiratory failure in a patient who presented with altered mental status and likely had declined of the respiratory status due to medication effect. RECOMMENDATIONS 1. Continue to treat the patient with intravenous vancomycin to cover MRSA. 2. Continue p.o. vancomycin for C-difficile. 3. Continue Lactinex also for C-difficile. 4. Would not treat the urine culture. I will be off 07/17 to 08/02. Other ID MDs covering. Cullen Long MD Jul 16, 2017 14:43
[2017-07-16] MEDS: hydrALAZINE HCL 20 MG/ML VIAL IV PUSH PRN (17:21)
--- NOTE | 2017-07-16 17:56 | EKG ---
Date Performed: 07/16/2017 Time Performed: 07:17:30 PTAGE: 71 years EKG: Atrial fibrillation with rapid ventricular response with PVC(s). Lead(s) unsuitable for yolanda lysis: V5 Right bundle branch block Inferior/lateral ST-T changes are nonspecific Abnormal ECG Compar ed to prior tracing no significant change PREVIOUS TRACING : 07/14/2017 01.47 DOCTOR: Richard Dixon Interpretating Date/Time 07/16/2017 17:55:42
[2017-07-16] MEDS: RESP: ALBUTEROL 2.5 MG/IPRATROPIUM 0.5 MG NEB (PRN) INH (17:59)
[2017-07-16] MEDS: CYCLOBENZAPRINE HCL 10 MG TAB PO PRN (20:52)
[2017-07-16] MEDS: DONEPEZIL HCL 5 MG TAB PO SCH (20:53)
[2017-07-16] MEDS: ATORVASTATIN 40 MG TAB PO SCH (20:53)
[2017-07-16] MEDS: LATANOPROST 0.005% OPHT SOLN 2.5 ML BTL EACH EYE SCH (20:54)
[2017-07-17] VITALS (11 sets, daily range): BP systolic 161–199; BP diastolic 76–97; PULSE 96–109; RESP 12–17; TEMP 97.6–100.1; O2SAT 94–100
[2017-07-17] MEDS: VANCOMYCIN INJ 1,500 MG in SODIUM CHLORID 0.9% 500 ML INJ 500 ML IV SCH ×2 (00:27→17:32)
[2017-07-17] MEDS: HYDROmorphone HCL PF 1 MG/ML VIAL IV PRN ×11 (00:29→22:50)
[2017-07-17] MEDS: RESP: ALBUTEROL 2.5 MG/IPRATROPIUM 0.5 MG NEB (SCH) INH ×3 (03:56→22:00)
[2017-07-17] MEDS: CHLORHEXIDINE GLUCONATE 2 % 1 PACK (2 CLOTHS) TOP SCH (04:00)
[2017-07-17 04:22] LABS: HEMATOCRIT 28.7 % (39.0-51.0); MEAN CELL VOLUME 81.4 FL (80.0-100.0); MEAN CORPUSCULAR HEMOGLOBIN 25.9 PG (27.0-34.0); MEAN CORPUSCULAR HGB CONC 31.8 % (32.0-36.0); PLATELET COUNT 596 TH/MM3 (150-450); RED BLOOD COUNT 3.52 MIL/MM3 (4.50-5.90); REVIEW FLAG FINAL; WHITE BLOOD COUNT 14.3 TH/MM3 (4.0-11.0)
[2017-07-17 05:02] LABS: BICARBONATE 26.7 MEQ/L (21.0-32.0)
[2017-07-17 05:03] LABS: POTASSIUM 3.5 MEQ/L (3.5-5.1)
[2017-07-17] MEDS: LACTOBACILLUS ACIDOPHILUS TAB PO SCH ×3 (08:00→17:24)
[2017-07-17] MEDS: hydrALAZINE HCL 20 MG/ML VIAL IV PUSH PRN (08:13)
[2017-07-17] MEDS: CITALOPRAM HYDROBROMIDE 20 MG TAB PO SCH ×2 (09:00→11:56)
[2017-07-17] MEDS: MULTIVITAMINS/MINERALS THERAPEUTIC TAB PO SCH (09:00)
[2017-07-17] MEDS ORDERED: DEXTROSE 50% IN WATER 50 ML VIAL(D50) IV PRN (09:00)
[2017-07-17] MEDS ORDERED: GLUCAGON 1 MG/ML VIAL OTHER PRN (09:00)
[2017-07-17] MEDS: BUDESONIDE-FORMOTEROL 80/4.5 MCG INHALER INH SCH ×2 (09:00→21:00)
[2017-07-17] MEDS: DOCUSATE SODIUM 50 MG/SENNA 8.6 MG TAB PO SCH ×2 (09:00→11:55)
[2017-07-17] MEDS: FAMOTIDINE 40 MG/5 ML LIQ 50 ML BTL NG SCH ×2 (09:00→21:54)
[2017-07-17] MEDS: FERROUS SULFATE 325 MG (65 MG ELEMENTAL IRON) TAB PO SCH ×2 (09:00→11:55)
[2017-07-17] MEDS: ASPIRIN 81 MG CHEW TAB CHEW SCH ×2 (09:00→11:54)
[2017-07-17] MEDS: ASCORBIC ACID 500 MG TAB PO SCH (09:00)
--- NOTE | 2017-07-17 09:08 | HHI.CCPN ---
Subjective Remarks/Hospital Course Hospital Course: 71-year-old gentleman with past medical history of hypertension, COPD, hyperlipidemia, recently treated for left foot osteomyelitis, presents today with altered mental status. As per , he had taken some flexeril and 1 oxycodone this morning. However, he went to sleep at around 2:30pm and that was the last normal as per . At about 4pm, she noticed he was having difficulty breathing and also dosing off but did not decide to come to the ED until hours later. Pt had recent admission 07/02/17 for osteomyelitis of left metatarsal and had debridement and biopsy and culture by Dr. Arvizu on . Culture grew MRSA and ID recommended vancomycin however per chart documentation patient refused. In the emergency department he was too lethargic to protect his airways and was intubated by ED attending. Subjective: 07/15: remains encephalopathic without significant improvements. wbc stable. MRSA in wound culture. 07/16: extubated yesterday, did well overnight on 2L nc. This morning, became acutely tachycardic which appears to be afib RVR and then became dyspneic and hypoxic. physical exam pertinent for bilateral crackles throughout all lung leonard, likely acute flash pulmonary edema secondary to afib secondary to volume overload. lasix 80mg iv x 1 given, patient placed on bipap, iv diltiazem given. 07/17 Patient is lying in bed in no acute resp distress, on room air oxygen when seen. Hypertensive. Objective Vital Signs Date Time Temp Pulse Resp B/P (MAP) Pulse Ox O2 Delivery O2 Flow Rate FiO2 07/17/17 07:39 97 07/17/17 06:00 96 07/17/17 05:59 16 07/17/17 04:00 98.5 191/89 (123) 07/16/17 21:03 21 07/16/17 16:33 Nasal Cannula 2.00 Intake and Output 07/17/17 07/17/17 07/17/17 07:59 15:59 23:59 Intake Total 650 ml Output Total 900 ml Balance -250 ml Result Diagram: 07/17/17 0357 07/17/17 0357 Other Results Laboratory Tests Test 07/17/17 03:57 White Blood Count 14.3 TH/MM3 Red Blood Count 3.52 MIL/MM3 Hemoglobin 9.1 GM/DL Hematocrit 28.7 % Mean Corpuscular Volume 81.4 FL Mean Corpuscular Hemoglobin 25.9 PG Mean Corpuscular Hemoglobin Concent 31.8 % Red Cell Distribution Width 19.0 % Platelet Count 596 TH/MM3 Mean Platelet Volume 6.8 FL Blood Urea Nitrogen 15 MG/DL Creatinine 0.54 MG/DL Random Glucose 107 MG/DL Calcium Level 8.4 MG/DL Sodium Level 143 MEQ/L Potassium Level 3.5 MEQ/L Chloride Level 107 MEQ/L Carbon Dioxide Level 26.7 MEQ/L Anion Gap 9 MEQ/L Estimat Glomerular Filtration Rate 150 ML/MIN Imaging Last Impressions Head CT 07/14/1742 Signed Impressions: Service Date/Time: Friday, July 14, 2017 02:09 - CONCLUSION: No acute intracranial abnormality is identified. Jose Miller MD Chest X-Ray 07/14/1742 Signed Impressions: Service Date/Time: Friday, July 14, 2017 01:10 - CONCLUSION: Endotracheal tube in appropriate position with tip measuring 6.6 cm from the joce. There is atelectasis at the lung bases. Jose Miller MD Foot X-Ray 07/14/17 0000 Signed Impressions: Service Date/Time: Friday, July 14, 2017 01:44 - CONCLUSION: 1. Soft tissue air overlying the base of the first digit may be related to the laceration if the laceration is in this location. No radiopaque foreign body is identified. 2. Absence of the distal half of the first metatarsal likely related to prior resection. Jose Miller MD Ankle X-Ray 07/14/17 Signed Impressions: Service Date/Time: Friday, July 14, 2017 01:48 - CONCLUSION: No acute left ankle abnormality is identified. Jose Miller MD Objective Remarks GENERAL: Patient is lying in bed in no resp distress SKIN: Warm and dry. HEAD: Normocephalic. EYES: No scleral icterus. No injection or drainage. NECK: Supple, trachea midline. No JVD or lymphadenopathy. CARDIOVASCULAR: Regular rate and rhythm without murmurs, gallops, or rubs. RESPIRATORY: Breath sounds equal bilaterally. No accessory muscle use. GASTROINTESTINAL: Abdomen soft, non-tender, nondistended. MUSCULOSKELETAL: Left foot: +Left 1st MTP wound 3cm by 2cm dorsum of 1st MTP is foul smelling with surrounding erythema. +Purulent discharge. Distal phalanx black in color. DP 1 BACK: Nontender without obvious deformity. No CVA tenderness. Neuro: Awake and alert A/P Assessment and Plan Neuro: Awake and alert, CT brain 07/14: No acute findings. On Aricept for Dementia Resp Insuff- improved Oxygen PRN keep sat >92% Bronchodilators, check CXR CV: PAF Hypertension Place on Cardizem 60mg Q6, on Hydralazine PRN. Monitor HR and BP keep MAP>65mmHg : Monitor renal function, electrolytes replacement per protocol. GI: NPO for possible revascularization of left foot ID: Diabetic ulcer History of osteomyelitis -MRSA Ischemic foot UTI( Pseudomonas) MRSA wound -Continue abx per ID- Vancomycin, Podiatry is following. Monitor for signs of infections ( Fever, WBC) - Vascular surgery is following- For possible revascularization of left foot today Heme: Monitor CBC, on FESO4 325mg BID Endo: Diabetes - Place on SSI with accuchecks Q6 DVT GI prophylaxis - Teds SCDs - Subcutaneous heparin - Pepcid Level 3 Norman Tian MD Jul 17, 2017 09:08
[2017-07-17] MEDS: ARTIFICIAL TEARS OPTH SOLN 15 ML BTL EACH EYE SCH ×3 (09:54→17:24)
[2017-07-17] MEDS: SODIUM CHLORIDE 0.9% FLUSH 10 ML FLUSH SCH ×2 (09:54→20:41)
[2017-07-17] MEDS: INSULIN NovoLIN REGULAR SUPPLEMENTAL SCALE SQ SCH ×3 (10:00→21:55)
[2017-07-17] MEDS: DILTIAZEM HCL 60 MG TAB PO SCH ×3 (10:00→21:54)
[2017-07-17] MEDS ORDERED: AZTREONAM INJ 2,000 MG in SODIUM CHLORIDE 0.9% INJ 100 ML IV SCH (10:00)
--- NOTE | 2017-07-17 10:04 | RADRPT ---
EXAM DATE/TIME: 07/17/2017 09:34 [facility] COMPARISON: CHEST SINGLE AP, July 14, 2017, 1:10. INDICATIONS : Patient experiencing shortness of breath. MEDICAL HISTORY : None. SURGICAL HISTORY : None. ENCOUNTER: Initial ACUITY: 2 days PAIN SCORE: 6/10 LOCATION: Bilateral upper chest FINDINGS: Minimal bibasilar parenchymal changes are evident. The lungs are clear. The heart is minimally enlarged. The pulmonary vascularity is normal. There is n o evidence for infiltrate or failure. The portion of the bony skeleton visualized is unremarkable. CONCLUSION: Compensated cardiomegaly with minimal bibasilar clinical changes. Jayme Anderson MD FACR on July 17, 2017 at 10:02 Board Certified Radiologist. This report was verified electronically.
--- NOTE | 2017-07-17 10:09 | HHI.IDPN ---
Note Infectious Disease Note ID Xcover for . Chart reviewed for history and details. is a 71 y/o CM with PMHx of left great toe surgery with MRSA. Patient has prior h/o Cdiff and refused to go home with any antibiotics per review of records. Last few days [employer] change in mentation, and on admission s.o sepsis. Admitted to ICU with Severe Sepsis, Acute resp failure on vent, acute encephalopathy, Afib, flash pulm edema. Vascular surgery saw patient and pt has severe PID based on review of notes. Also s/b podiatry plans for debridement. Overnight events reviewed. Extubated last night. Remains in ICU. UO good. Roman in place. No fevers since 07/14/2017. Complains of pain in left foot. Reports h/o smoking 1/2 ppd since age of 11 yrs, quit 2 yrs back. counseled again. Wound culture has MRSA. urine culture < 50,000 col of pseudomonas. The patient has had a history of C-difficile colitis and previously refused treatment with antibiotics. PAST MEDICAL HISTORY 1. Hypertension 2. COPD 3. Hyperlipidemia 4. dementia 5. Transient ischemic attack. 6. History of shingles 7. Glaucoma 8. History of appendectomy. 9. History of back surgery. 10. History of penile implant. 11. History of surgery for arachnoiditis. 12. Carotid artery surgery 13. History of C-difficile colitis. 14. Left knee septic arthritis. ALLERGIES ERYTHROMYCIN METRONIDAZOLE PENICILLIN SULFAMETHOXAZOLE TRIMETHOPRIM OXYCODONE MORPHINE MEPERIDINE ASPIRIN ACETAMINOPHEN MRI precaution. OBJECTIVE: Vital Signs Date Time Temp Pulse Resp B/P (MAP) Pulse Ox O2 Delivery O2 Flow Rate FiO2 07/17/17 08:00 97.6 103 17 199/97 (131) 07/17/17 07:39 97 07/17/17 06:00 96 07/17/17 05:59 16 07/17/17 04:00 96 07/17/17 04:00 98.5 96 12 191/89 (123) 100 07/17/17 02:00 96 07/17/17 00:00 98.7 100 16 175/81 (112) 96 07/17/17 00:00 100 07/16/17 22:00 107 07/16/17 21:03 97 21 07/16/17 20:00 99.0 111 18 186/84 (118) 96 07/16/17 20:00 111 07/16/17 18:00 108 07/16/17 16:33 99 Nasal Cannula 2.00 07/16/17 16:00 105 07/16/17 16:00 97.9 105 17 194/96 (128) 99 07/16/17 14:00 101 07/16/17 12:00 97.9 106 20 178/87 (117) 98 07/16/17 12:00 100 Laboratory Tests Test 07/16/17 04:32 07/17/17 03:57 White Blood Count 15.4 TH/MM3 14.3 TH/MM3 Red Blood Count 3.10 MIL/MM3 3.52 MIL/MM3 Hemoglobin 7.8 GM/DL 9.1 GM/DL Hematocrit 25.3 % 28.7 % Mean Corpuscular Volume 81.8 FL 81.4 FL Mean Corpuscular Hemoglobin 25.3 PG 25.9 PG Mean Corpuscular Hemoglobin Concent 31.0 % 31.8 % Red Cell Distribution Width 18.5 % 19.0 % Platelet Count 598 TH/MM3 596 TH/MM3 Mean Platelet Volume 6.4 FL 6.8 FL Laboratory Tests Test 07/16/17 04:32 07/17/17 03:57 Blood Urea Nitrogen 19 MG/DL 15 MG/DL Creatinine 0.52 MG/DL 0.54 MG/DL Random Glucose 91 MG/DL 107 MG/DL Calcium Level 8.6 MG/DL 8.4 MG/DL Sodium Level 144 MEQ/L 143 MEQ/L Potassium Level 3.0 MEQ/L 3.5 MEQ/L Chloride Level 110 MEQ/L 107 MEQ/L Carbon Dioxide Level 23.4 MEQ/L 26.7 MEQ/L Anion Gap 11 MEQ/L 9 MEQ/L Estimat Glomerular Filtration Rate 156 ML/MIN 150 ML/MIN Laboratory Tests Test 07/15/17 04:30 07/16/17 04:32 White Blood Count 15.1 TH/MM3 15.4 TH/MM3 Red Blood Count 2.95 MIL/MM3 3.10 MIL/MM3 Hemoglobin 7.9 GM/DL 7.8 GM/DL Hematocrit 24.9 % 25.3 % Mean Corpuscular Volume 84.4 FL 81.8 FL Mean Corpuscular Hemoglobin 26.7 PG 25.3 PG Mean Corpuscular Hemoglobin Concent 31.6 % 31.0 % Red Cell Distribution Width 18.1 % 18.5 % Platelet Count 509 TH/MM3 598 TH/MM3 Mean Platelet Volume 7.2 FL 6.4 FL Neutrophils (%) (Auto) 87.6 % Lymphocytes (%) (Auto) 5.5 % Monocytes (%) (Auto) 6.8 % Eosinophils (%) (Auto) 0.0 % Basophils (%) (Auto) 0.1 % Neutrophils # (Auto) 13.2 TH/MM3 Lymphocytes # (Auto) 0.8 TH/MM3 Monocytes # (Auto) 1.0 TH/MM3 Eosinophils # (Auto) 0.0 TH/MM3 Basophils # (Auto) 0.0 TH/MM3 CBC Comment DIFF FINAL Differential Comment Laboratory Tests Test 07/15/17 04:30 07/16/17 04:32 Blood Urea Nitrogen 22 MG/DL 19 MG/DL Creatinine 0.73 MG/DL 0.52 MG/DL Random Glucose 144 MG/DL 91 MG/DL Total Protein 6.5 GM/DL Albumin 1.8 GM/DL Calcium Level 8.9 MG/DL 8.6 MG/DL Phosphorus Level 5.0 MG/DL Magnesium Level 2.1 MG/DL Alkaline Phosphatase 132 U/L Aspartate Amino Transf (AST/SGOT) 23 U/L Alanine Aminotransferase (ALT/SGPT) 29 U/L Total Bilirubin 0.1 MG/DL Sodium Level 140 MEQ/L 144 MEQ/L Potassium Level 4.1 MEQ/L 3.0 MEQ/L Chloride Level 108 MEQ/L 110 MEQ/L Carbon Dioxide Level 25.0 MEQ/L 23.4 MEQ/L Anion Gap 7 MEQ/L 11 MEQ/L Estimat Glomerular Filtration Rate 106 ML/MIN 156 ML/MIN Microbiology Date/Time Source Procedure Growth Status 07/14/17 01:00 Blood Peripheral Aerobic Blood Culture - Preliminary NO GROWTH IN 2 DAYS Resulted 07/14/17 01:00 Blood Peripheral Anaerobic Blood Culture - Preliminary NO GROWTH IN 2 DAYS Resulted 07/14/17 00:50 Blood Peripheral Aerobic Blood Culture - Preliminary NO GROWTH IN 2 DAYS Resulted 07/14/17 00:50 Blood Peripheral Anaerobic Blood Culture - Preliminary NO GROWTH IN 2 DAYS Resulted 07/14/17 01:00 Urine Catheterized Urine Urine Culture - Final Pseudomonas Luteola Complete 07/14/17 02:44 Wound Toe Gram Stain - Final Complete 07/14/17 02:44 Wound Culture - Final S. Aureus Mrsa Complete Last Impressions Head CT 07/14/173 Signed Impressions: Service Date/Time: Friday, July 14, 2017 02:09 - CONCLUSION: No acute intracranial abnormality is identified. Jose Miller MD Chest X-Ray 07/14/17 0043 Signed Impressions: Service Date/Time: Friday, July 14, 2017 01:10 - CONCLUSION: Endotracheal tube in appropriate position with tip measuring 6.6 cm from the joce. There is atelectasis at the lung bases. Jose Miller MD Foot X-Ray 07/14/17 0000 Signed Impressions: Service Date/Time: Friday, July 14, 2017 01:44 - CONCLUSION: 1. Soft tissue air overlying the base of the first digit may be related to the laceration if the laceration is in this location. No radiopaque foreign body is identified. 2. Absence of the distal half of the first metatarsal likely related to prior resection. Jose Miller MD Ankle X-Ray 07/14/17 0000 Signed Impressions: Service Date/Time: Friday, July 14, 2017 01:48 - CONCLUSION: No acute left ankle abnormality is identified. Jose Miller MD CXR reviewed by me personally and compared to prior. Rotation noted. No infiltrate. PHYSICAL EXAMINATION: IN GENERAL: No acute distress. Awake and alert. HEENT: EOMI, SHABBIR. No icterus NECK: No swelling or adenopathy. LUNGS: Clear breath sounds. HEART: Regular S1-S2. No audible murmur. ABDOMEN: Bowel sounds present, flat, nontender. EXTREMITIES: The left great toe remains purpuric throughout the entire surface of that toe. The great toe base laterally at the mid aspect has dry necrotic change. Pedal pulses diminished and also popliteal vessels diminished. SKIN: No rash. NEUROLOGIC: Non focal. PSYCHIATRIC: Calm. IMPRESSION 1. Severe Sepsis present on admission. 2. MRSA non healing wound, gangrene and secondary infection. R.o osteomyelitis. 3. Ischemia of left great toe area due to PVD 4. Extensive smoking history. 5. HTN, Hyperlipidemia as other risk factors. 6. Recent diagnosis of osteomyelitis MRSA. Pt declined antibiotic therapy due to prior h/o Cdiff. 7. Acute resp failure on admission: resolved. 8. Possible COPD exacerbation on admission. 9. Pseudomonas luteola. Urine with < 50,000 CFU bacteria, no WBCs. Likely asymptomatic colonization. RECOMMENDATIONS 1. Continue Vanco IV (target 15-20) 2. Vanco oral for suppression of Cdiff per . 3. Continue Lactinex. 4. No treatment for Pseudomonas in urine. covering prn this weekend. Will see pt next on Thursday. Marita Osborne MD Jul 17, 2017 10:09
[2017-07-17] MEDS: VANCOMYCIN 500 MG VIAL (FOR ORAL USE ONLY) PO SCH ×3 (13:00→20:42)
[2017-07-17] MEDS: HEPARIN SODIUM - SQ 10,000 UNITS/ML VIAL SQ SCH ×2 (13:43→21:55)
[2017-07-17] MEDS ORDERED: HYDROmorphone HCL PF 1 MG/ML VIAL IV PUSH ONE (14:30)
[2017-07-17] MEDS: DONEPEZIL HCL 5 MG TAB PO SCH (20:40)
[2017-07-17] MEDS: ATORVASTATIN 40 MG TAB PO SCH (20:40)
[2017-07-17] MEDS: LATANOPROST 0.005% OPHT SOLN 2.5 ML BTL EACH EYE SCH (20:42)
[2017-07-18] VITALS (14 sets, daily range): BP systolic 129–171; BP diastolic 67–80; PULSE 73–89; RESP 12–18; TEMP 97.9–99.9; O2SAT 95–100
[2017-07-18] MEDS: HYDROmorphone HCL PF 1 MG/ML VIAL IV PRN ×8 (00:53→22:13)
[2017-07-18] MEDS: CHLORHEXIDINE GLUCONATE 2 % 1 PACK (2 CLOTHS) TOP SCH (04:00)
[2017-07-18] MEDS: INSULIN NovoLIN REGULAR SUPPLEMENTAL SCALE SQ SCH ×4 (04:00→21:32)
[2017-07-18] MEDS: DILTIAZEM HCL 60 MG TAB PO SCH ×4 (04:42→21:29)
[2017-07-18 04:59] LABS: AUTOMATED NEUTROPHIL # 17.7 TH/MM3 (1.8-7.7); BASOPHIL # 0.1 TH/MM3 (0-0.2); BASOPHIL % 0.3 % (0.0-2.0); EOSINOPHIL # 0.1 TH/MM3 (0-0.4); EOSINOPHIL % 0.6 % (0.0-4.0); HEMATOCRIT 26.4 % (39.0-51.0); HEMO FLAGS DIFF FINAL; LYMPHOCYTE # 1.2 TH/MM3 (1.0-4.8); MEAN CELL VOLUME 81.8 FL (80.0-100.0); MEAN CORPUSCULAR HEMOGLOBIN 25.2 PG (27.0-34.0); MEAN CORPUSCULAR HGB CONC 30.8 % (32.0-36.0); NEUT % 86.1 % (16.0-70.0); PLATELET COUNT 627 TH/MM3 (150-450); RED BLOOD COUNT 3.22 MIL/MM3 (4.50-5.90); RED CELL DISTRIBUTION WIDTH 18.4 % (11.6-17.2); WHITE BLOOD COUNT 20.5 TH/MM3 (4.0-11.0)
[2017-07-18 05:08] LABS: BICARBONATE 28.8 MEQ/L (21.0-32.0); MAGNESIUM 1.8 MG/DL (1.5-2.5); POTASSIUM 3.1 MEQ/L (3.5-5.1)
[2017-07-18] MEDS: HEPARIN SODIUM - SQ 10,000 UNITS/ML VIAL SQ SCH ×3 (06:36→21:29)
[2017-07-18] MEDS: LACTOBACILLUS ACIDOPHILUS TAB PO SCH ×3 (08:00→16:49)
[2017-07-18] MEDS: MULTIVITAMINS/MINERALS THERAPEUTIC TAB PO SCH (08:46)
[2017-07-18] MEDS: FERROUS SULFATE 325 MG (65 MG ELEMENTAL IRON) TAB PO SCH ×2 (08:46→16:51)
[2017-07-18] MEDS: CITALOPRAM HYDROBROMIDE 20 MG TAB PO SCH (08:46)
[2017-07-18] MEDS: DOCUSATE SODIUM 50 MG/SENNA 8.6 MG TAB PO SCH ×2 (08:46→19:41)
[2017-07-18] MEDS: VANCOMYCIN 500 MG VIAL (FOR ORAL USE ONLY) PO SCH ×4 (08:46→19:34)
[2017-07-18] MEDS: ASPIRIN 81 MG CHEW TAB CHEW SCH (08:47)
--- NOTE | 2017-07-18 08:54 | HHI.IDPN ---
Note Infectious Disease Note ID Xcover for . Chart reviewed for history and details. is a 71 y/o CM with PMHx of left great toe surgery with MRSA. Patient has prior h/o Cdiff and refused to go home with any antibiotics per review of records. Last few days [employer]IST change in mentation, and on admission s.o sepsis. Admitted to ICU with Severe Sepsis, Acute resp failure on vent, acute encephalopathy, Afib, flash pulm edema. Vascular surgery saw patient and pt has severe PID based on review of notes. Also s/b podiatry plans for debridement. Notes reviewed Febrile overnight Tolerating extubation 07/16 Denies SOB, occ brings up phlegm Having diarrhea No abdominal pain C/O pain in his L foot, feels worse again Wound culture has MRSA. urine culture < 50,000 col of pseudomonas. The patient has had a history of C-difficile colitis and previously refused treatment with antibiotics. PAST HISTORY 1. Hypertension 2. COPD 3. Hyperlipidemia 4. dementia 5. Transient ischemic attack. 6. History of shingles 7. Glaucoma 8. History of appendectomy. 9. History of back surgery. 10. History of penile implant. 11. History of surgery for arachnoiditis. 12. Carotid artery surgery 13. History of C-difficile colitis. 14. Left knee septic arthritis. ALLERGIES ERYTHROMYCIN METRONIDAZOLE PENICILLIN SULFAMETHOXAZOLE TRIMETHOPRIM OXYCODONE MORPHINE MEPERIDINE ASPIRIN ACETAMINOPHEN MRI precaution. OBJECTIVE: Vital Signs Date Time Temp Pulse Resp B/P (MAP) Pulse Ox O2 Delivery O2 Flow Rate FiO2 07/18/17 08:19 98 07/18/17 08:00 98.7 75 16 165/72 (103) 97 07/18/17 08:00 79 07/18/17 06:00 79 07/18/17 05:13 16 07/18/17 04:00 97.9 83 13 171/74 (106) 97 07/18/17 04:00 83 07/18/17 03:25 16 07/18/17 02:00 80 07/18/17 00:00 98.5 83 12 147/69 (95) 95 07/18/17 00:00 83 07/17/17 22:00 100 07/17/17 20:00 100.1 97 16 180/81 (114) 96 07/17/17 20:00 97 07/17/17 18:00 99.7 97 17 161/76 (104) 94 07/17/17 16:00 99 07/17/17 12:00 100.1 109 16 193/94 (127) Vital Signs Date Time Temp Pulse Resp B/P (MAP) Pulse Ox O2 Delivery O2 Flow Rate FiO2 07/17/17 08:00 97.6 103 17 199/97 (131) 07/17/17 07:39 97 07/17/17 06:00 96 07/17/17 05:59 16 07/17/17 04:00 96 07/17/17 04:00 98.5 96 12 191/89 (123) 100 07/17/17 02:00 96 07/17/17 00:00 98.7 100 16 175/81 (112) 96 07/17/17 00:00 100 07/16/17 22:00 107 07/16/17 21:03 97 21 07/16/17 20:00 99.0 111 18 186/84 (118) 96 07/16/17 20:00 111 07/16/17 18:00 108 07/16/17 16:33 99 Nasal Cannula 2.00 07/16/17 16:00 105 07/16/17 16:00 97.9 105 17 194/96 (128) 99 07/16/17 14:00 101 07/16/17 12:00 97.9 106 20 178/87 (117) 98 07/16/17 12:00 100 Laboratory Tests Test 07/17/17 03:57 07/18/17 04:14 White Blood Count 14.3 TH/MM3 20.5 TH/MM3 Red Blood Count 3.52 MIL/MM3 3.22 MIL/MM3 Hemoglobin 9.1 GM/DL 8.1 GM/DL Hematocrit 28.7 % 26.4 % Mean Corpuscular Volume 81.4 FL 81.8 FL Mean Corpuscular Hemoglobin 25.9 PG 25.2 PG Mean Corpuscular Hemoglobin Concent 31.8 % 30.8 % Red Cell Distribution Width 19.0 % 18.4 % Platelet Count 596 TH/MM3 627 TH/MM3 Mean Platelet Volume 6.8 FL 6.4 FL Neutrophils (%) (Auto) 86.1 % Lymphocytes (%) (Auto) 6.0 % Monocytes (%) (Auto) 7.0 % Eosinophils (%) (Auto) 0.6 % Basophils (%) (Auto) 0.3 % Neutrophils # (Auto) 17.7 TH/MM3 Lymphocytes # (Auto) 1.2 TH/MM3 Monocytes # (Auto) 1.4 TH/MM3 Eosinophils # (Auto) 0.1 TH/MM3 Basophils # (Auto) 0.1 TH/MM3 CBC Comment DIFF FINAL Differential Comment Laboratory Tests Test 07/17/17 03:57 07/18/17 04:14 Blood Urea Nitrogen 15 MG/DL 15 MG/DL Creatinine 0.54 MG/DL 0.69 MG/DL Random Glucose 107 MG/DL 121 MG/DL Calcium Level 8.4 MG/DL 8.4 MG/DL Sodium Level 143 MEQ/L 140 MEQ/L Potassium Level 3.5 MEQ/L 3.1 MEQ/L Chloride Level 107 MEQ/L 105 MEQ/L Carbon Dioxide Level 26.7 MEQ/L 28.8 MEQ/L Anion Gap 9 MEQ/L 6 MEQ/L Estimat Glomerular Filtration Rate 150 ML/MIN 113 ML/MIN Phosphorus Level 2.7 MG/DL Magnesium Level 1.8 MG/DL Laboratory Tests Test 07/16/17 04:32 07/17/17 03:57 White Blood Count 15.4 TH/MM3 14.3 TH/MM3 Red Blood Count 3.10 MIL/MM3 3.52 MIL/MM3 Hemoglobin 7.8 GM/DL 9.1 GM/DL Hematocrit 25.3 % 28.7 % Mean Corpuscular Volume 81.8 FL 81.4 FL Mean Corpuscular Hemoglobin 25.3 PG 25.9 PG Mean Corpuscular Hemoglobin Concent 31.0 % 31.8 % Red Cell Distribution Width 18.5 % 19.0 % Platelet Count 598 TH/MM3 596 TH/MM3 Mean Platelet Volume 6.4 FL 6.8 FL Laboratory Tests Test 07/16/17 04:32 07/17/17 03:57 Blood Urea Nitrogen 19 MG/DL 15 MG/DL Creatinine 0.52 MG/DL 0.54 MG/DL Random Glucose 91 MG/DL 107 MG/DL Calcium Level 8.6 MG/DL 8.4 MG/DL Sodium Level 144 MEQ/L 143 MEQ/L Potassium Level 3.0 MEQ/L 3.5 MEQ/L Chloride Level 110 MEQ/L 107 MEQ/L Carbon Dioxide Level 23.4 MEQ/L 26.7 MEQ/L Anion Gap 11 MEQ/L 9 MEQ/L Estimat Glomerular Filtration Rate 156 ML/MIN 150 ML/MIN Laboratory Tests Test 07/15/17 04:30 07/16/17 04:32 White Blood Count 15.1 TH/MM3 15.4 TH/MM3 Red Blood Count 2.95 MIL/MM3 3.10 MIL/MM3 Hemoglobin 7.9 GM/DL 7.8 GM/DL Hematocrit 24.9 % 25.3 % Mean Corpuscular Volume 84.4 FL 81.8 FL Mean Corpuscular Hemoglobin 26.7 PG 25.3 PG Mean Corpuscular Hemoglobin Concent 31.6 % 31.0 % Red Cell Distribution Width 18.1 % 18.5 % Platelet Count 509 TH/MM3 598 TH/MM3 Mean Platelet Volume 7.2 FL 6.4 FL Neutrophils (%) (Auto) 87.6 % Lymphocytes (%) (Auto) 5.5 % Monocytes (%) (Auto) 6.8 % Eosinophils (%) (Auto) 0.0 % Basophils (%) (Auto) 0.1 % Neutrophils # (Auto) 13.2 TH/MM3 Lymphocytes # (Auto) 0.8 TH/MM3 Monocytes # (Auto) 1.0 TH/MM3 Eosinophils # (Auto) 0.0 TH/MM3 Basophils # (Auto) 0.0 TH/MM3 CBC Comment DIFF FINAL Differential Comment Laboratory Tests Test 07/15/17 04:30 07/16/17 04:32 Blood Urea Nitrogen 22 MG/DL 19 MG/DL Creatinine 0.73 MG/DL 0.52 MG/DL Random Glucose 144 MG/DL 91 MG/DL Total Protein 6.5 GM/DL Albumin 1.8 GM/DL Calcium Level 8.9 MG/DL 8.6 MG/DL Phosphorus Level 5.0 MG/DL Magnesium Level 2.1 MG/DL Alkaline Phosphatase 132 U/L Aspartate Amino Transf (AST/SGOT) 23 U/L Alanine Aminotransferase (ALT/SGPT) 29 U/L Total Bilirubin 0.1 MG/DL Sodium Level 140 MEQ/L 144 MEQ/L Potassium Level 4.1 MEQ/L 3.0 MEQ/L Chloride Level 108 MEQ/L 110 MEQ/L Carbon Dioxide Level 25.0 MEQ/L 23.4 MEQ/L Anion Gap 7 MEQ/L 11 MEQ/L Estimat Glomerular Filtration Rate 106 ML/MIN 156 ML/MIN Microbiology Date/Time Source Procedure Growth Status 07/14/17 01:00 Blood Peripheral Aerobic Blood Culture - Preliminary NO GROWTH IN 2 DAYS Resulted 07/14/17 01:00 Blood Peripheral Anaerobic Blood Culture - Preliminary NO GROWTH IN 2 DAYS Resulted 07/14/17 00:50 Blood Peripheral Aerobic Blood Culture - Preliminary NO GROWTH IN 2 DAYS Resulted 07/14/17 00:50 Blood Peripheral Anaerobic Blood Culture - Preliminary NO GROWTH IN 2 DAYS Resulted 07/14/17 01:00 Urine Catheterized Urine Urine Culture - Final Pseudomonas Luteola Complete 07/14/17 02:44 Wound Toe Gram Stain - Final Complete 07/14/17 02:44 Wound Culture - Final S. Aureus Mrsa Complete Last 72 hours Impressions Chest X-Ray 07/17/17 0000 Signed Impressions: Service Date/Time: Monday, July 17, 2017 09:34 - CONCLUSION: Compensated cardiomegaly with minimal bibasilar clinical changes. Jayme Anderson MD FACR Head CT 07/14/1742 Signed Impressions: Service Date/Time: Friday, July 14, 2017 02:09 - CONCLUSION: No acute intracranial abnormality is identified. Jose Miller MD Chest X-Ray 07/14/1742 Signed Impressions: Service Date/Time: Friday, July 14, 2017 01:10 - CONCLUSION: Endotracheal tube in appropriate position with tip measuring 6.6 cm from the joce. There is atelectasis at the lung bases. Jose Miller MD Foot X-Ray 07/14/17 Signed Impressions: Service Date/Time: Friday, July 14, 2017 01:44 - CONCLUSION: 1. Soft tissue air overlying the base of the first digit may be related to the laceration if the laceration is in this location. No radiopaque foreign body is identified. 2. Absence of the distal half of the first metatarsal likely related to prior resection. Jose Miller MD Ankle X-Ray 07/14/17 0000 Signed Impressions: Service Date/Time: Friday, July 14, 2017 01:48 - CONCLUSION: No acute left ankle abnormality is identified. Jose Miller MD PHYSICAL EXAMINATION: GENERAL: No acute distress. Awake and alert. HEENT: [place] conjunctiva, no icterus, moist oral mucosa NECK: No swelling or adenopathy. Not tender, supple LUNGS: Clear breath sounds. HEART: Regular S1-S2. No audible murmur. ABDOMEN: Bowel sounds present, flat, nontender. EXTREMITIES: LLE - the big toe is purplish color, there is a black eschar on medial foot, dry, with mild erythema at borders, (+) odor, and has some wounds also on lateral aspect and also on the lateral malleolus, very tender with any kind on movement. SKIN: No rash. NEUROLOGIC: Non focal. PSYCHIATRIC: Calm. IMPRESSION Severe Sepsis present on admission. Recurrent fevers, etiology? - also WBC up to 20K - ?due to ongoing/worsening ischemia L foot Gangrene L foot, has PAD Extensive smoking history. HTN, Hyperlipidemia as other risk factors. Recent diagnosis of osteomyelitis MRSA. Pt declined antibiotic therapy due to prior h/o Cdiff. Acute resp failure on admission: resolved. Possible COPD exacerbation on admission. Pseudomonas luteola. Urine with < 50,000 CFU bacteria, no WBCs. Likely asymptomatic colonization. RECOMMENDATIONS 2 BC UA and C/S Check C diff Follow temps Follow CBC Continue Vanco IV (target 15-20) On Vanco oral Continue Lactinex. Monitor progress May need to add Gm negative coverage if he continues to be febrile Vanessa Srinivasan MD Jul 18, 2017 08:54
[2017-07-18] MEDS: FAMOTIDINE 40 MG/5 ML LIQ 50 ML BTL NG SCH ×2 (08:58→20:04)
[2017-07-18] MEDS: BUDESONIDE-FORMOTEROL 80/4.5 MCG INHALER INH SCH ×2 (08:59→19:41)
[2017-07-18] MEDS: ARTIFICIAL TEARS OPTH SOLN 15 ML BTL EACH EYE SCH ×3 (08:59→16:51)
[2017-07-18] MEDS: SODIUM CHLORIDE 0.9% FLUSH 10 ML FLUSH SCH ×2 (09:00→19:37)
[2017-07-18] MEDS: ASCORBIC ACID 500 MG TAB PO SCH (09:00)
--- NOTE | 2017-07-18 09:31 | PD.VS.PN ---
Subjective Subjective/Hospital Course Pt with profound LEFT foot ischemia Much better breathing over past day since aggressive diurese Objective Vitals/I&O Date Time Temp Pulse Resp B/P (MAP) Pulse Ox O2 Delivery O2 Flow Rate FiO2 07/18/17 08:19 98 07/18/17 08:00 98.7 75 16 165/72 (103) 97 07/18/17 08:00 79 07/18/17 06:00 79 07/18/17 05:13 16 07/18/17 04:00 97.9 83 13 171/74 (106) 97 07/18/17 04:00 83 07/18/17 03:25 16 07/18/17 02:00 80 07/18/17 00:00 98.5 83 12 147/69 (95) 95 07/18/17 00:00 83 07/17/17 22:00 100 07/17/17 20:00 100.1 97 16 180/81 (114) 96 07/17/17 20:00 97 07/17/17 18:00 99.7 97 17 161/76 (104) 94 07/17/17 16:00 99 07/17/17 12:00 100.1 109 16 193/94 (127) 07/18/17 07/18/17 07/18/17 07:00 15:00 23:00 Intake Total 500 ml Output Total 75 ml Balance 425 ml Physical Exam L foot hallux ischemia Laboratory Laboratory Tests Test 07/18/17 04:14 White Blood Count 20.5 Red Blood Count 3.22 Hemoglobin 8.1 Hematocrit 26.4 Mean Corpuscular Volume 81.8 Mean Corpuscular Hemoglobin 25.2 Mean Corpuscular Hemoglobin Concent 30.8 Red Cell Distribution Width 18.4 Platelet Count 627 Mean Platelet Volume 6.4 Neutrophils (%) (Auto) 86.1 Lymphocytes (%) (Auto) 6.0 Monocytes (%) (Auto) 7.0 Eosinophils (%) (Auto) 0.6 Basophils (%) (Auto) 0.3 Neutrophils # (Auto) 17.7 Lymphocytes # (Auto) 1.2 Monocytes # (Auto) 1.4 Eosinophils # (Auto) 0.1 Basophils # (Auto) 0.1 CBC Comment DIFF FINAL Differential Comment Blood Urea Nitrogen 15 Creatinine 0.69 Random Glucose 121 Calcium Level 8.4 Phosphorus Level 2.7 Magnesium Level 1.8 Sodium Level 140 Potassium Level 3.1 Chloride Level 105 Carbon Dioxide Level 28.8 Anion Gap 6 Estimat Glomerular Filtration Rate 113 Date/Time Source Procedure Growth Status 07/14/17 01:00 Blood Peripheral Aerobic Blood Culture - Preliminary NO GROWTH IN 3 DAYS Resulted 07/14/17 01:00 Blood Peripheral Anaerobic Blood Culture - Preliminary NO GROWTH IN 3 DAYS Resulted 07/14/17 01:00 Urine Catheterized Urine Urine Culture - Final Pseudomonas Luteola Complete 07/14/17 02:44 Wound Toe Gram Stain - Final Complete 07/14/17 02:44 Wound Culture - Final S. Aureus Mrsa Complete Imaging Last 48 hours Impressions Chest X-Ray 07/17/17 0000 Signed Impressions: Service Date/Time: Monday, July 17, 2017 09:34 - CONCLUSION: Compensated cardiomegaly with minimal bibasilar clinical changes. 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 Needs revascularization 1. LE vein survey today 2. 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
--- NOTE | 2017-07-18 09:34 | HHI.CCPN ---
Subjective Remarks/Hospital Course Hospital Course: 71-year-old gentleman with past medical history of hypertension, COPD, hyperlipidemia, recently treated for left foot osteomyelitis, presents today with altered mental status. As per , he had taken some flexeril and 1 oxycodone this morning. However, he went to sleep at around 2:30pm and that was the last normal as per . At about 4pm, she noticed he was having difficulty breathing and also dosing off but did not decide to come to the ED until hours later. Pt had recent admission 07/02/17 for osteomyelitis of left metatarsal and had debridement and biopsy and culture by Dr. Arvizu on . Culture grew MRSA and ID recommended vancomycin however per chart documentation patient refused. In the emergency department he was too lethargic to protect his airways and was intubated by ED attending. Subjective: 07/15: remains encephalopathic without significant improvements. wbc stable. MRSA in wound culture. 07/16: extubated yesterday, did well overnight on 2L nc. This morning, became acutely tachycardic which appears to be afib RVR and then became dyspneic and hypoxic. physical exam pertinent for bilateral crackles throughout all lung leonard, likely acute flash pulmonary edema secondary to afib secondary to volume overload. lasix 80mg iv x 1 given, patient placed on bipap, iv diltiazem given. 07/17 Patient is lying in bed in no acute resp distress, on room air oxygen when seen. Hypertensive. 07/18 No events overnight. Patient is lying in bed in NAD. T;100.1 last night Objective Vital Signs Date Time Temp Pulse Resp B/P (MAP) Pulse Ox O2 Delivery O2 Flow Rate FiO2 07/18/17 08:19 98 07/18/17 08:00 98.7 75 16 165/72 (103) 07/16/17 21:03 21 07/16/17 16:33 Nasal Cannula 2.00 Intake and Output 07/18/17 07/18/17 07/19/17 08:00 16:00 00:00 Intake Total 500 ml Output Total 75 ml Balance 425 ml Result Diagram: 07/18/17 0414 07/18/17 0414 Other Results Laboratory Tests Test 07/18/17 04:14 White Blood Count 20.5 TH/MM3 Red Blood Count 3.22 MIL/MM3 Hemoglobin 8.1 GM/DL Hematocrit 26.4 % Mean Corpuscular Volume 81.8 FL Mean Corpuscular Hemoglobin 25.2 PG Mean Corpuscular Hemoglobin Concent 30.8 % Red Cell Distribution Width 18.4 % Platelet Count 627 TH/MM3 Mean Platelet Volume 6.4 FL Neutrophils (%) (Auto) 86.1 % Lymphocytes (%) (Auto) 6.0 % Monocytes (%) (Auto) 7.0 % Eosinophils (%) (Auto) 0.6 % Basophils (%) (Auto) 0.3 % Neutrophils # (Auto) 17.7 TH/MM3 Lymphocytes # (Auto) 1.2 TH/MM3 Monocytes # (Auto) 1.4 TH/MM3 Eosinophils # (Auto) 0.1 TH/MM3 Basophils # (Auto) 0.1 TH/MM3 CBC Comment DIFF FINAL Differential Comment Blood Urea Nitrogen 15 MG/DL Creatinine 0.69 MG/DL Random Glucose 121 MG/DL Calcium Level 8.4 MG/DL Phosphorus Level 2.7 MG/DL Magnesium Level 1.8 MG/DL Sodium Level 140 MEQ/L Potassium Level 3.1 MEQ/L Chloride Level 105 MEQ/L Carbon Dioxide Level 28.8 MEQ/L Anion Gap 6 MEQ/L Estimat Glomerular Filtration Rate 113 ML/MIN Imaging Last Impressions Head CT 07/14/1742 Signed Impressions: Service Date/Time: Friday, July 14, 2017 02:09 - CONCLUSION: No acute intracranial abnormality is identified. Jose Miller MD Chest X-Ray 07/14/1742 Signed Impressions: Service Date/Time: Friday, July 14, 2017 01:10 - CONCLUSION: Endotracheal tube in appropriate position with tip measuring 6.6 cm from the joce. There is atelectasis at the lung bases. Jose Miller MD Foot X-Ray 07/14/17 0000 Signed Impressions: Service Date/Time: Friday, July 14, 2017 01:44 - CONCLUSION: 1. Soft tissue air overlying the base of the first digit may be related to the laceration if the laceration is in this location. No radiopaque foreign body is identified. 2. Absence of the distal half of the first metatarsal likely related to prior resection. Jose Miller MD Ankle X-Ray 07/14/17 0000 Signed Impressions: Service Date/Time: Friday, July 14, 2017 01:48 - CONCLUSION: No acute left ankle abnormality is identified. Jose Miller MD Objective Remarks GENERAL: Patient is lying in bed in no resp distress SKIN: Warm and dry. HEAD: Normocephalic. EYES: No scleral icterus. No injection or drainage. NECK: Supple, trachea midline. No JVD or lymphadenopathy. CARDIOVASCULAR: Regular rate and rhythm without murmurs, gallops, or rubs. RESPIRATORY: Breath sounds equal bilaterally. No accessory muscle use. GASTROINTESTINAL: Abdomen soft, non-tender, nondistended. MUSCULOSKELETAL: Left foot: +Left 1st MTP wound 3cm by 2cm dorsum of 1st MTP is foul smelling with surrounding erythema. +Purulent discharge. Distal phalanx black in color. DP 1 BACK: Nontender without obvious deformity. No CVA tenderness. Neuro: Awake and alert A/P Assessment and Plan Neuro: Awake and alert, CT brain 07/14: No acute findings. On Aricept for Dementia Resp Insuff- Oxygen PRN keep sat >92% Bronchodilators, CXR 07/17: No obvious infiltrates or effusions CV: PAF Hypertension Continue Cardizem 60mg Q6 add Hydralazine 50mg Q8, on Hydralazine PRN. Monitor HR and BP keep MAP>65mmHg : Monitor renal function, electrolytes replacement per protocol. GI: NPO for possible revascularization of left foot ID: Diabetic ulcer History of osteomyelitis -MRSA Ischemic foot UTI( Pseudomonas) Hx C-diff MRSA wound -Continue abx per ID- Vancomycin IV and PO, Lactinex, Podiatry is following. Monitor for signs of infections ( Fever, WBC) -For BC x 2 sets UA today, check C-diff PCR - Vascular surgery is following- For possible revascularization of left foot next week Heme: Monitor CBC, on FESO4 325mg BID Endo: Diabetes -On SSI with accuchecks Q6 DVT GI prophylaxis - Teds SCDs - Subcutaneous heparin - Pepcid Level 3 Norman Tian MD Jul 18, 2017 09:34
[2017-07-18] MEDS: POTASSIUM CHLOR 40 MEQ PREMIX 100 ML IV PRN ×2 (10:07→16:54)
--- NOTE | 2017-07-18 11:03 | RADRPT ---
EXAM DATE/TIME: 07/18/2017 10:04 [facility] COMPARISON: US LEG BILATERAL VENOUS DOPPLER, January 27, 2017, 20:24. INDICATIONS : Lower extremity bypass graft. MEDICAL HISTORY : Stroke. Hypertension. Hypercholesterolemia. Hearing aids. Glasses. Neck pain. Dementia. Dizziness. Nu mbness. Anticoagulant therapy. COPD. Pancreatitis. Renal disease. Kidney stones. Arthritis. Depressio n. Anxiety. Clostridium difficle. Blood transfusions. SURGICAL HISTORY : Carotid endarterectomy.Appendectomy. Pacemaker.Bilateral lens implants. Oral surgery. Bladder simulat or. Ltihotripsy. Left foot surgery. ENCOUNTER: Subsequent ACUITY: 1 day PAIN SCORE: 3/10 LOCATION: Bilateral legs. TECHNIQUE: Venous ultrasound of the left and right leg was performed from the inguinal ligament to the proximal calf. Real-time, color Doppler and spectral tracing, compression and augmentation techniques were us ed. FINDINGS: RIGHT LEG: There is normal compressibility of the deep venous system from the inguinal region to the proximal ca lf. No echogenic clot is seen in the lumen of the common femoral, femoral, popliteal, and posterior tibial veins. There is a normal response of the venous system to proximal and distal augmentation an d respiration. LEFT LEG: There is normal compressibility of the deep venous system from the inguinal region to the proximal ca lf. No echogenic clot is seen in the lumen of the common femoral, femoral, popliteal, and posterior tibial veins. There is a normal response of the venous system to proximal and distal augmentation an d respiration. CONCLUSION: Normal examination. Bautista Hoff MD on July 18, 2017 at 11:01 Board Certified Radiologist. This report was verified electronically.
--- NOTE | 2017-07-18 11:09 | RADRPT ---
EXAM DATE/TIME: 07/18/2017 10:16 [facility] COMPARISON: No previous studies available for comparison. INDICATIONS : Lower extremity bypass graft. MEDICAL HISTORY : Stroke. Hypercholesterolemia. Hypertension. Hearing aids. Glasses. Neck pain. Dementia. Dizziness. Nu mbness. Anticoagulant therapy. COPD. Pancreatitis. Renal disease. Kidney stones. Arthritis. Depressio n. Anxiety. Clostridium difficle. Blood transfusions. SURGICAL HISTORY : Carotid endarterectomy. Pacemaker. Appendectomy. Bilateral lens implants. Oral surgery. Bladder simul ator. Ltihotripsy. Left foot surgery. ENCOUNTER: Subsequent ACUITY: 1 day PAIN SCORE: 4/10 LOCATION: Bilateral legs. GREATER SAPHENOUS VEIN THIGH: PROXIMAL: Right 9 mm Left 7 mm MID: Right 1 mm Left 1 mm DISTAL: Right 2 mm Left 1 mm CALF: PROXIMAL: Right 1 mm Left Non-visualized MID: Right 1 mm Left Non-visualized DISTAL: Right Non-visualized Left Non-visualized FINDINGS: The venous system of the lower extremities are patent by color Doppler imaging. Measurements of the leg veins (in mm) are listed above. CONCLUSION: Venous mapping as above. Bautista Hoff MD on July 18, 2017 at 11:07 Board Certified Radiologist. This report was verified electronically.
[2017-07-18 11:18] LABS: BACTERIA, URINE OCC /hpf; BLOOD, URINE NEG (NEG); COMMENT (UR) CULTURE INDICATED; CULTURE IF INDICATED CULTURE INDICATED; GLUCOSE,URINE NEG (NEG); HYALINE CAST, URINE 1 /lpf (RARE); KETONE, URINE NEG (NEG); MUCUS URINE FEW /lpf (OCC); NITRITE,URINE NEG (NEG); SQUAMOUS EPITHELIAL CELL URINE <1 /hpf (0-5); URINE COLOR YELLOW (YELLW/STRAW)
[2017-07-18] MEDS ORDERED: PHARMACY ORDERED LAB ONE (11:45)
[2017-07-18] MEDS: hydrALAZINE HCL 50 MG TAB PO SCH ×3 (12:22→21:29)
[2017-07-18] MEDS: VANCOMYCIN INJ 1,500 MG in SODIUM CHLORID 0.9% 500 ML INJ 500 ML IV SCH (14:24)
[2017-07-18] MEDS: DONEPEZIL HCL 5 MG TAB PO SCH (19:38)
[2017-07-18] MEDS: ATORVASTATIN 40 MG TAB PO SCH (19:38)
[2017-07-18] MEDS: LATANOPROST 0.005% OPHT SOLN 2.5 ML BTL EACH EYE SCH (19:41)
[2017-07-19] VITALS (14 sets, daily range): BP systolic 144–162; BP diastolic 67–74; PULSE 68–78; RESP 15–20; TEMP 98.4–99.8; O2SAT 94–100
[2017-07-19] MEDS: HYDROmorphone HCL PF 1 MG/ML VIAL IV PRN ×8 (01:44→21:01)
[2017-07-19 01:56] LABS: HEMATOCRIT 25.8 % (39.0-51.0); MEAN CELL VOLUME 82.2 FL (80.0-100.0); MEAN CORPUSCULAR HEMOGLOBIN 25.2 PG (27.0-34.0); MEAN CORPUSCULAR HGB CONC 30.6 % (32.0-36.0); PLATELET COUNT 552 TH/MM3 (150-450); RED BLOOD COUNT 3.14 MIL/MM3 (4.50-5.90); RED CELL DISTRIBUTION WIDTH 18.2 % (11.6-17.2); REVIEW FLAG FINAL; WHITE BLOOD COUNT 20.8 TH/MM3 (4.0-11.0)
[2017-07-19 02:27] LABS: BICARBONATE 26.6 MEQ/L (21.0-32.0); POTASSIUM 3.7 MEQ/L (3.5-5.1)
[2017-07-19] MEDS: CHLORHEXIDINE GLUCONATE 2 % 1 PACK (2 CLOTHS) TOP SCH (04:00)
[2017-07-19] MEDS: INSULIN NovoLIN REGULAR SUPPLEMENTAL SCALE SQ SCH ×4 (04:00→22:00)
[2017-07-19] MEDS: hydrALAZINE HCL 50 MG TAB PO SCH ×3 (04:44→21:01)
[2017-07-19] MEDS: HEPARIN SODIUM - SQ 10,000 UNITS/ML VIAL SQ SCH ×3 (04:44→21:03)
[2017-07-19] MEDS: DILTIAZEM HCL 60 MG TAB PO SCH ×4 (04:44→21:02)
[2017-07-19] MEDS: VANCOMYCIN INJ 1,500 MG in SODIUM CHLORID 0.9% 500 ML INJ 500 ML IV SCH (04:45)
[2017-07-19] MEDS: MULTIVITAMINS/MINERALS THERAPEUTIC TAB PO SCH (07:30)
[2017-07-19] MEDS: ASCORBIC ACID 500 MG TAB PO SCH (07:31)
[2017-07-19] MEDS: FERROUS SULFATE 325 MG (65 MG ELEMENTAL IRON) TAB PO SCH ×2 (07:31→17:10)
[2017-07-19] MEDS: LACTOBACILLUS ACIDOPHILUS TAB PO SCH ×3 (07:32→17:09)
[2017-07-19] MEDS: CITALOPRAM HYDROBROMIDE 20 MG TAB PO SCH (07:33)
[2017-07-19] MEDS: ASPIRIN 81 MG CHEW TAB CHEW SCH (07:33)
[2017-07-19] MEDS: VANCOMYCIN 500 MG VIAL (FOR ORAL USE ONLY) PO SCH ×4 (07:34→21:06)
[2017-07-19] MEDS: FAMOTIDINE 40 MG/5 ML LIQ 50 ML BTL NG SCH ×2 (07:35→21:05)
[2017-07-19] MEDS: BUDESONIDE-FORMOTEROL 80/4.5 MCG INHALER INH SCH ×2 (07:35→21:00)
[2017-07-19] MEDS: DOCUSATE SODIUM 50 MG/SENNA 8.6 MG TAB PO SCH ×2 (07:36→21:00)
[2017-07-19] MEDS: LATANOPROST 0.005% OPHT SOLN 2.5 ML BTL EACH EYE SCH (07:36)
--- NOTE | 2017-07-19 07:36 | HHI.CCPN ---
Subjective Remarks/Hospital Course Hospital Course: 71-year-old gentleman with past medical history of hypertension, COPD, hyperlipidemia, recently treated for left foot osteomyelitis, presents today with altered mental status. As per , he had taken some flexeril and 1 oxycodone this morning. However, he went to sleep at around 2:30pm and that was the last normal as per . At about 4pm, she noticed he was having difficulty breathing and also dosing off but did not decide to come to the ED until hours later. Pt had recent admission 07/02/17 for osteomyelitis of left metatarsal and had debridement and biopsy and culture by Dr. Arvizu on . Culture grew MRSA and ID recommended vancomycin however per chart documentation patient refused. In the emergency department he was too lethargic to protect his airways and was intubated by ED attending. Subjective: 07/15: remains encephalopathic without significant improvements. wbc stable. MRSA in wound culture. 07/16: extubated yesterday, did well overnight on 2L nc. This morning, became acutely tachycardic which appears to be afib RVR and then became dyspneic and hypoxic. physical exam pertinent for bilateral crackles throughout all lung leonard, likely acute flash pulmonary edema secondary to afib secondary to volume overload. lasix 80mg iv x 1 given, patient placed on bipap, iv diltiazem given. 07/17 Patient is lying in bed in no acute resp distress, on room air oxygen when seen. Hypertensive. 07/18 No events overnight. Patient is lying in bed in NAD. T;100.1 last night 07/19 Patient is awake, alert lying in bed in NAD. T:99.9 last night. Objective Vital Signs Date Time Temp Pulse Resp B/P (MAP) Pulse Ox O2 Delivery O2 Flow Rate FiO2 07/19/17 06:00 68 07/19/17 04:00 99.6 20 144/69 (94) 97 07/18/17 21:29 Nasal Cannula 3.00 07/16/17 21:03 21 Intake and Output 07/19/17 07/19/17 07/19/17 07:59 15:59 23:59 Intake Total 440 ml Output Total 325 ml Balance 115 ml Result Diagram: 07/19/17 0120 07/19/17 0120 Other Results Laboratory Tests Test 07/18/17 09:35 07/18/17 13:52 07/19/17 01:20 Urine Color YELLOW Urine Turbidity HAZY Urine pH 6.0 Urine Specific [place] 1.028 Urine Protein 100 mg/dL Urine Glucose (UA) NEG mg/dL Urine Ketones NEG mg/dL Urine Occult Blood NEG Urine Nitrite NEG Urine Bilirubin NEG Urine Urobilinogen LESS THAN 2.0 MG/DL Urine Leukocyte Esterase NEG Urine RBC 3 /hpf Urine WBC 9 /hpf Urine WBC Clumps RARE Urine Squamous Epithelial Cells <1 /hpf Urine Amorphous Sediment RARE Urine Bacteria OCC /hpf Urine Hyaline Casts 1 /lpf Urine Mucus FEW /lpf Microscopic Urinalysis Comment CULTURE INDICATED Vancomycin Level Trough 15.0 MCG/ML White Blood Count 20.8 TH/MM3 Red Blood Count 3.14 MIL/MM3 Hemoglobin 7.9 GM/DL Hematocrit 25.8 % Mean Corpuscular Volume 82.2 FL Mean Corpuscular Hemoglobin 25.2 PG Mean Corpuscular Hemoglobin Concent 30.6 % Red Cell Distribution Width 18.2 % Platelet Count 552 TH/MM3 Mean Platelet Volume 6.6 FL Blood Urea Nitrogen 15 MG/DL Creatinine 0.71 MG/DL Random Glucose 87 MG/DL Calcium Level 8.5 MG/DL Sodium Level 139 MEQ/L Potassium Level 3.7 MEQ/L Chloride Level 104 MEQ/L Carbon Dioxide Level 26.6 MEQ/L Anion Gap 8 MEQ/L Estimat Glomerular Filtration Rate 109 ML/MIN Imaging Last Impressions Lower Extremity Ultrasound 07/18/17 0000 Signed Impressions: Service Date/Time: Tuesday, July 18, 2017 10:04 - CONCLUSION: Normal examination. Bautista Hoff MD Chest X-Ray 07/17/17 0000 Signed Impressions: Service Date/Time: Monday, July 17, 2017 09:34 - CONCLUSION: Compensated cardiomegaly with minimal bibasilar clinical changes. Jayme Anderson MD FACR Head CT 07/14/17 0043 Signed Impressions: Service Date/Time: Friday, July 14, 2017 02:09 - CONCLUSION: No acute intracranial abnormality is identified. Jose Miller MD Foot X-Ray 07/14/17 0000 Signed Impressions: Service Date/Time: Friday, July 14, 2017 01:44 - CONCLUSION: 1. Soft tissue air overlying the base of the first digit may be related to the laceration if the laceration is in this location. No radiopaque foreign body is identified. 2. Absence of the distal half of the first metatarsal likely related to prior resection. Jsoe Miller MD Ankle X-Ray 07/14/17 0000 Signed Impressions: Service Date/Time: Friday, July 14, 2017 01:48 - CONCLUSION: No acute left ankle abnormality is identified. Jose Miller MD Objective Remarks GENERAL: Patient is lying in bed in no resp distress SKIN: Warm and dry. HEAD: Normocephalic. EYES: No scleral icterus. No injection or drainage. NECK: Supple, trachea midline. No JVD or lymphadenopathy. CARDIOVASCULAR: Regular rate and rhythm without murmurs, gallops, or rubs. RESPIRATORY: Breath sounds equal bilaterally. No accessory muscle use. GASTROINTESTINAL: Abdomen soft, non-tender, nondistended. MUSCULOSKELETAL: Left foot: +Left 1st MTP wound 3cm by 2cm dorsum of 1st MTP is foul smelling with surrounding erythema. +Purulent discharge. Distal phalanx black in color. DP 1 BACK: Nontender without obvious deformity. No CVA tenderness. Neuro: Awake and alert A/P Assessment and Plan Neuro: Awake and alert, CT brain 07/14: No acute findings. On Aricept for Dementia Resp Insuff- Oxygen PRN keep sat >92% Bronchodilators, CXR 07/17: No obvious infiltrates or effusions CV: PAF Hypertension Continue Cardizem 60mg Q6, Hydralazine 50mg Q8, on Hydralazine PRN. Monitor HR and BP keep MAP>65mmHg : Monitor renal function, electrolytes replacement per protocol. GI: On PO diet ID: Diabetic ulcer History of osteomyelitis -MRSA Ischemic foot UTI( Pseudomonas) Hx C-diff MRSA wound -Continue abx per ID- Vancomycin IV and PO, Lactinex, Podiatry is following. Monitor for signs of infections ( Fever, WBC) -Follow up on BC and urine cx from 07/18, check C-diff PCR - Vascular surgery is following- For possible revascularization of left foot on Thursday Heme: Monitor CBC, on FESO4 325mg BID Endo: Diabetes -On SSI with accuchecks Q6 DVT GI prophylaxis - Teds SCDs - Subcutaneous heparin - Pepcid Level 3 Norman Tian MD Jul 19, 2017 07:36
--- NOTE | 2017-07-19 08:22 | HHI.IDPN ---
Note Infectious Disease Note ID [facility] for . Chart reviewed for history and details. is a 71 y/o CM with PMHx of left great toe surgery with MRSA. Patient has prior h/o Cdiff and refused to go home with any antibiotics per review of records. Last few days [employer] change in mentation, and on admission s.o sepsis. Admitted to ICU with Severe Sepsis, Acute resp failure on vent, acute encephalopathy, Afib, flash pulm edema. Vascular surgery saw patient and pt has severe PID based on review of notes. Also s/b podiatry plans for debridement. Notes reviewed Temps low grade Tolerating extubation 07/16 Denies SOB Having diarrhea No abdominal pain C/O pain in his L foot Vascular surgery notes reviewed Repeat UA with mild pyuria WBC staying at 20K Wound culture has MRSA. urine culture < 50,000 col of pseudomonas. The patient has had a history of C-difficile colitis and previously refused treatment with antibiotics. PAST HISTORY 1. Hypertension 2. COPD 3. Hyperlipidemia 4. dementia 5. Transient ischemic attack. 6. History of shingles 7. Glaucoma 8. History of appendectomy. 9. History of back surgery. 10. History of penile implant. 11. History of surgery for arachnoiditis. 12. Carotid artery surgery 13. History of C-difficile colitis. 14. Left knee septic arthritis. ALLERGIES ERYTHROMYCIN METRONIDAZOLE PENICILLIN SULFAMETHOXAZOLE TRIMETHOPRIM OXYCODONE MORPHINE MEPERIDINE ASPIRIN ACETAMINOPHEN MRI precaution. OBJECTIVE: Vital Signs Date Time Temp Pulse Resp B/P (MAP) Pulse Ox O2 Delivery O2 Flow Rate FiO2 07/19/17 06:00 68 07/19/17 04:00 99.6 71 20 144/69 (94) 97 07/19/17 04:00 71 07/19/17 02:45 16 07/19/17 02:14 16 07/19/17 02:00 72 07/19/17 00:00 69 07/19/17 00:00 99.8 69 15 147/67 (93) 100 07/18/17 22:00 75 07/18/17 21:29 100 Nasal Cannula 3.00 07/18/17 20:00 99.9 73 18 141/67 (91) 96 07/18/17 20:00 73 07/18/17 18:03 89 07/18/17 16:00 99.0 80 16 129/80 (96) 97 07/18/17 16:00 89 07/18/17 14:00 89 07/18/17 12:00 89 07/18/17 12:00 99.0 80 16 142/68 (92) 97 07/18/17 10:00 79 Vital Signs Date Time Temp Pulse Resp B/P (MAP) Pulse Ox O2 Delivery O2 Flow Rate FiO2 07/18/17 08:19 98 07/18/17 08:00 98.7 75 16 165/72 (103) 97 07/18/17 08:00 79 07/18/17 06:00 79 07/18/17 05:13 16 07/18/17 04:00 97.9 83 13 171/74 (106) 97 07/18/17 04:00 83 07/18/17 03:25 16 07/18/17 02:00 80 07/18/17 00:00 98.5 83 12 147/69 (95) 95 07/18/17 00:00 83 07/17/17 22:00 100 07/17/17 20:00 100.1 97 16 180/81 (114) 96 07/17/17 20:00 97 07/17/17 18:00 99.7 97 17 161/76 (104) 94 07/17/17 16:00 99 07/17/17 12:00 100.1 109 16 193/94 (127) Laboratory Tests Test 07/18/17 04:14 07/19/17 01:20 White Blood Count 20.5 TH/MM3 20.8 TH/MM3 Red Blood Count 3.22 MIL/MM3 3.14 MIL/MM3 Hemoglobin 8.1 GM/DL 7.9 GM/DL Hematocrit 26.4 % 25.8 % Mean Corpuscular Volume 81.8 FL 82.2 FL Mean Corpuscular Hemoglobin 25.2 PG 25.2 PG Mean Corpuscular Hemoglobin Concent 30.8 % 30.6 % Red Cell Distribution Width 18.4 % 18.2 % Platelet Count 627 TH/MM3 552 TH/MM3 Mean Platelet Volume 6.4 FL 6.6 FL Neutrophils (%) (Auto) 86.1 % Lymphocytes (%) (Auto) 6.0 % Monocytes (%) (Auto) 7.0 % Eosinophils (%) (Auto) 0.6 % Basophils (%) (Auto) 0.3 % Neutrophils # (Auto) 17.7 TH/MM3 Lymphocytes # (Auto) 1.2 TH/MM3 Monocytes # (Auto) 1.4 TH/MM3 Eosinophils # (Auto) 0.1 TH/MM3 Basophils # (Auto) 0.1 TH/MM3 CBC Comment DIFF FINAL Differential Comment Laboratory Tests Test 07/18/17 04:14 07/19/17 01:20 Blood Urea Nitrogen 15 MG/DL 15 MG/DL Creatinine 0.69 MG/DL 0.71 MG/DL Random Glucose 121 MG/DL 87 MG/DL Calcium Level 8.4 MG/DL 8.5 MG/DL Phosphorus Level 2.7 MG/DL Magnesium Level 1.8 MG/DL Sodium Level 140 MEQ/L 139 MEQ/L Potassium Level 3.1 MEQ/L 3.7 MEQ/L Chloride Level 105 MEQ/L 104 MEQ/L Carbon Dioxide Level 28.8 MEQ/L 26.6 MEQ/L Anion Gap 6 MEQ/L 8 MEQ/L Estimat Glomerular Filtration Rate 113 ML/MIN 109 ML/MIN Microbiology Date/Time Source Procedure Growth Status 07/18/17 13:52 Blood Peripheral Aerobic Blood Culture Pending Received 07/18/17 13:52 Blood Peripheral Anaerobic Blood Culture Pending Received 07/18/17 13:45 Blood Peripheral Aerobic Blood Culture Pending Received 07/18/17 13:45 Blood Peripheral Anaerobic Blood Culture Pending Received 07/18/17 09:35 Urine Clean Catch Urine Culture Pending Received Last 72 hours Impressions Chest X-Ray 07/17/17 0000 Signed Impressions: Service Date/Time: Monday, July 17, 2017 09:34 - CONCLUSION: Compensated cardiomegaly with minimal bibasilar clinical changes. Jayme Anderson MD FACR Head CT 07/14/17 004 Signed Impressions: Service Date/Time: Friday, July 14, 2017 02:09 - CONCLUSION: No acute intracranial abnormality is identified. Jose Miller MD Chest X-Ray 07/14/1742 Signed Impressions: Service Date/Time: Friday, July 14, 2017 01:10 - CONCLUSION: Endotracheal tube in appropriate position with tip measuring 6.6 cm from the joce. There is atelectasis at the lung bases. Jose Miller MD Foot X-Ray 07/14/17 0000 Signed Impressions: Service Date/Time: Friday, July 14, 2017 01:44 - CONCLUSION: 1. Soft tissue air overlying the base of the first digit may be related to the laceration if the laceration is in this location. No radiopaque foreign body is identified. 2. Absence of the distal half of the first metatarsal likely related to prior resection. Jose Miller MD Ankle X-Ray 07/14/17 0000 Signed Impressions: Service Date/Time: Friday, July 14, 2017 01:48 - CONCLUSION: No acute left ankle abnormality is identified. Jose Miller MD PHYSICAL EXAMINATION: GENERAL: No acute distress. Awake and alert. Comfortable HEENT: [place] conjunctiva, no petechia, no icterus, moist oral mucosa NECK: No swelling or adenopathy. Not tender, supple LUNGS: Clear breath sounds. HEART: Regular S1-S2. No audible murmur. ABDOMEN: Bowel sounds present, flat, nontender. EXTREMITIES: LLE - the big toe is same purplish color, there is a black eschar on medial foot, dry, with mild erythema at borders, (+) odor, and has some wounds also on lateral aspect and also on the lateral malleolus, very tender with any kind on movement. SKIN: No rash. NEUROLOGIC: Non focal. PSYCHIATRIC: Calm. IMPRESSION Severe Sepsis present on admission. Recurrent fevers, etiology? - also WBC up to 20K - ?due to ongoing/worsening ischemia L foot Gangrene L foot, has PAD Extensive smoking history. HTN, Hyperlipidemia as other risk factors. Recent diagnosis of osteomyelitis MRSA. Pt declined antibiotic therapy due to prior h/o Cdiff. Acute resp failure on admission: resolved. Possible COPD exacerbation on admission. Pseudomonas luteola. Urine with < 50,000 CFU bacteria, no WBCs. Likely asymptomatic colonization. RECOMMENDATIONS Follow new C/S Follow temps Follow CBC - leukocytosis possibly related to ongoing ischemia in his L foot Continue Vanco IV (target 15-20) On Vanco oral Continue Lactinex. Monitor progress May need to add Gm negative coverage if he continues to be febrile Vanessa Srinivasan MD Jul 19, 2017 08:22
[2017-07-19] MEDS: ARTIFICIAL TEARS OPTH SOLN 15 ML BTL EACH EYE SCH ×3 (09:00→17:09)
[2017-07-19] MEDS: SODIUM CHLORIDE 0.9% FLUSH 10 ML FLUSH SCH ×2 (09:00→21:04)
[2017-07-19] MEDS: CYCLOBENZAPRINE HCL 10 MG TAB PO PRN ×2 (12:02→17:10)
--- NOTE | 2017-07-19 12:08 | PD.POD ---
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 Patient is scheduled for an arteriogram with possible intervention for Thursday by Dr. Anand. Past Med/Surg/Social History Past Medical History Endocrine: REPORTS HX OF: Diabetes mellitus, Graves disease Cardiovascular: REPORTS HX OF: Hypertension, Peripheral vascular dz Gastrointestinal: REPORTS HX OF: Other GI history (prior GI bleed, pt finished c. diff treatment on friday 05/25) Musculoskeletal: REPORTS HX OF: Other musculoskeletal hx (L. shoulder pain worsen after his arm was injured in latest hospitalization) Cancer/Hematology: REPORTS HX OF: Anemia Past Surgical History Gastrointestinal: DENIES HX OF: Colectomy, total Musculoskeletal: REPORTS HX OF: Other musculoskeletal srg (resection of the first metatarsal head and sesamoids) Social History Smoking Status: Unknown If Ever Smoked Review of Systems Notes No changes in his 14 point review of systems exam since he was last seen Objective Vital Signs Vital Signs Date Time Temp Pulse Resp B/P (MAP) Pulse Ox O2 Delivery O2 Flow Rate FiO2 07/19/17 08:00 99.4 70 20 156/73 (100) 97 07/19/17 08:00 68 07/19/17 06:00 68 07/19/17 04:00 99.6 71 20 144/69 (94) 97 07/19/17 04:00 71 07/19/17 02:45 16 07/19/17 02:14 16 07/19/17 02:00 72 07/19/17 00:00 69 07/19/17 00:00 99.8 69 15 147/67 (93) 100 07/18/17 22:00 75 07/18/17 21:29 100 Nasal Cannula 3.00 07/18/17 20:00 99.9 73 18 141/67 (91) 96 07/18/17 20:00 73 07/18/17 18:03 89 07/18/17 16:00 99.0 80 16 129/80 (96) 97 07/18/17 16:00 89 07/18/17 14:00 89 Coded Allergies: Sulfa (Sulfonamide Antibiotics) (Verified Allergy, Severe, Anaphylaxis, ) metronidazole (Verified Allergy, Severe, Fever, colitis, 07/07/17) While being treated for Cdiff. Doubt if true allergy. penicillin G (Verified Allergy, Severe, Anaphylaxis, 07/07/17) sulfamethoxazole (Verified Allergy, Severe, Anaphylaxis, 07/07/17) trimethoprim (Verified Allergy, Severe, Anaphylaxis, 07/07/17) erythromycin base (Verified Allergy, Intermediate, Rash, 07/07/17) aspirin (Verified Allergy, Unknown, 07/07/17) oxycodone (Verified Allergy, Unknown, 07/07/17) PT states oxycodone is fine, but percodan is too strong MRI PRECAUTION (Verified Adverse Reaction, Severe, BLADDER STIMULATOR, ) BRAIN ONLY ON RECEIVE ONLY COIL, P.O. 01/11/17, DML acetaminophen (Verified Adverse Reaction, Unknown, Psychosis, 07/07/17) meperidine (Verified Adverse Reaction, Unknown, Psychosis, 07/07/17) morphine (Verified Adverse Reaction, Unknown, Psychosis, 07/07/17) Uncoded Allergies: surgical tape (Allergy, Severe, 12/15/13) Medications and IVs Current Medications Etomidate (Amidate Inj) 40 mg STK-MED ONCE .ROUTE ; Start 07/14/17 at 00:32; Stop 07/14/17 at 00:33; Status DC Propofol 100 ml @ As Directed STK-MED ONCE .ROUTE ; Start 07/14/17 at 00:35; Stop 07/14/17 at 00:36; Status DC IV Flush (NS Flush) 2 ml UNSCH PRN IV FLUSH FLUSH AFTER USING IV ACCESS; Start 07/14/17 at 00:45; Stop 07/14/17 at 03:47; Status DC Vancomycin HCl 1450 mg/Sodium Chloride 514.5 ml @ 250 mls/hr ONCE ONCE IV Last administered on 07/14/17 02:36; Start 07/14/17 at 01:30; Stop 07/14/17 at 03:33; Status DC Aztreonam 2000 mg/ Sodium Chloride 100 ml @ 200 mls/hr ONCE ONCE IV Last administered on 07/14/17 02:08; Start 07/14/17 at 01:30; Stop 07/14/17 at 01:59 ; Status DC Racepinephrine (Racepinephrine 2.25% Neb) 0.5 ml ONCE ONCE NEB Last administered on 07/14/17 01:36; Start 07/14/17 at 01:30; Stop 07/14/17 at 01:31 ; Status DC Methylprednisolone Sodium Succinate (SoluMEDROL INJ) 60 mg ONCE ONCE IVP Last administered on 07/14/17 01:44; Start 07/14/17 at 01:30; Stop 07/14/17 at 01:31 ; Status DC Albuterol/ Ipratropium (Duoneb Neb) 1 ampule Q15M INH Last administered on 07/14 01:48; Start 07/14/17 at 01:30; Stop 07/14/17 at 02:01; Status DC Etomidate (Amidate Inj) 30 mg ONCE ONCE IV PUSH Last administered on 02:09; Start 07/14/17 at 02:00; Stop 07/14/17 at 02:02; Status DC Rocuronium [place] (Zemuron Inj) 60 mg BOLUS ONCE IV Last administered on 07/14 02:08; Start 07/14/17 at 02:00; Stop 07/14/17 at 02:02; Status DC Propofol 100 ml @ 2.85 mls/hr Q35H6M PRN IV Ordered RASS Last administered on 01:37; Start 07/14/17 at 02:02; Stop 07/16/17 at 12:44; Status DC Midazolam HCl (Versed Inj) 5 mg STK-MED ONCE .ROUTE ; Start 07/14/17 at 02:30; Stop 07/14/17 at 02:31; Status DC Sodium Chloride 1,000 ml @ 999 mls/hr BOLUS ONCE IV Last administered on 07/14 03:32; Start 07/14/17 at 03:00; Stop 07/14/17 at 04:00; Status DC Midazolam HCl (Versed Inj) 5 mg ONCE ONCE IV PUSH Last administered on 03:06; Start 07/14/17 at 03:15; Stop 07/14/17 at 03:16; Status DC Midazolam HCl 100 ml @ 2 mls/hr Q50H PRN IV SEDATION Last administered on 03:39; Start 07/14/17 at 03:01; Stop 07/15/17 at 06:31; Status DC Midazolam HCl 100 ml @ As Directed STK-MED ONCE .ROUTE ; Start 07/14/17 at 03: 17; Stop 07/14/17 at 03:18; Status DC Aspirin (Aspirin Chew) 81 mg DAILY CHEW Last administered on 07/19/17 07:33; Start 07/14/17 at 09:00 Atorvastatin Calcium (Lipitor) 40 mg HS PO Last administered on 07/18/17 19:38 ; Start 07/14/17 at 21:00 Citalopram Hydrobromide (CeleXA) 60 mg DAILY PO Last administered on 07/19/17 07:33; Start 07/14/17 at 09:00 Cyclobenzaprine HCl (Flexeril) 10 mg Q8HR PO Last administered on 07/15/17 04: 21; Start 07/14/17 at 06:00; Stop 07/15/17 at 06:31; Status DC Donepezil HCl (Aricept) 10 mg HS PO Last administered on 07/18/17 19:38; Start 07/14/17 at 21:00 Gabapentin (Neurontin) 100 mg TID PO ; Start 07/14/17 at 09:00; Stop 07/15/17 at 06:31; Status DC Lactobacillus Acidophilus (Lactinex) 1 tab TIDAC PO Last administered on 10:25; Start 07/14/17 at 08:00 Ascorbic Acid (Vitamin C) 1,000 mg DAILY PO Last administered on 07/19/17 07:31 ; Start 07/14/17 at 09:00 Ferrous Sulfate (Ferrous Sulfate) 325 mg BIDPC PO Last administered on 07:31; Start 07/14/17 at 09:00 Budesonide/ Formoterol Fumarate (Symbicort 80-4.5 Mcg Inh) 1 puff BID INH Last administered on 07/19/17 07:35; Start 07/14/17 at 09:00 Multivitamins/ Minerals Therapeutic (Theragran M Tab) 1 tab DAILY PO Last administered on 07/19/17 07:30; Start 07/14/17 at 09:00 Latanoprost (Xalatan 0.005% Opth Soln) 1 drop HS EACH EYE Last administered on 07/19/17 07:36; Start 07/14/17 at 21:00 Sodium Chloride (NS Flush) 2 ml UNSCH PRN .XX FLUSH AFTER USING IV ACCESS; Start 07/14/17 at 03:30 Sodium Chloride (NS Flush) 2 ml BID .XX Last administered on 07/19/17 09:00; Start 07/14/17 at 09:00 Acetaminophen (Tylenol) 650 mg Q6H PRN PO FEVER >101F; Start 07/14/17 at 03:30 ; Stop 07/14/17 at 03:47; Status DC Morphine Sulfate (Morphine Inj) 2 mg Q2H PRN IV PAIN SCALE 6 TO 10; Start 07/14 at 03:30; Stop 07/14/17 at 03:47; Status DC Famotidine (Pepcid Inj) 20 mg Q12HR IV PUSH Last administered on 07/14/17 20: 45; Start 07/14/17 at 09:00; Stop 07/15/17 at 06:31; Status DC Midazolam HCl (Versed Inj) 2 mg Q1H PRN IV SEDATION; Start 07/14/17 at 03:30; Stop 07/15/17 at 06:31; Status DC Artificial Tears (Tears Naturale Opth Soln) 1 drop TID EACH EYE Last administered on 07/19/17 09:00; Start 07/14/17 at 09:00 Ondansetron HCl (Zofran Inj) 4 mg Q6H PRN IV NAUSEA OR VOMITING; Start at 03:30 Albuterol/ Ipratropium (Duoneb Neb) 1 ampule Q6HR NEB INH Last administered on 07/17/17 07:39; Start 07/14/17 at 04:00; Stop 07/18/17 at 03:59; Status DC Albuterol/ Ipratropium (Duoneb Neb) 1 ampule Q2HR NEB PRN INH WHEEZING Last administered on 07/16/17 17:59; Start 07/14/17 at 03:30 Heparin Sodium (Porcine) (Heparin Inj) 5,000 units Q8H SQ Last administered on 07/19/17 04:44; Start 07/14/17 at 06:00 Miscellaneous Information 1 Q361D XX ; Start 07/14/17 at 03:30 Chlorhexidine Gluconate (Chlorhexidine 2% Cloth) Taper DAILY@04 TOP Last administered on 07/19/17 04:00; Start 07/14/17 at 04:00; Stop 07/10/18 at 03:59 Chlorhexidine Gluconate (Chlorhexidine 2% Cloth) 3 pack UNSCH PRN TOP HYGIENIC CARE; Start 07/14/17 at 03:30 Senna/Docusate Sodium (Medina-Colace) 1 tab BID PO Last administered on 07/18/17 08:46; Start 07/14/17 at 09:00 Magnesium Hydroxide (Milk Of Magnesia Liq) 30 ml Q12H PRN PO MILD - MODERATE CONSTIPATION; Start 07/14/17 at 03:30 Sennosides (Senokot) 17.2 mg Q12H PRN PO MODERATE - SEVERE CONSTIPATION; Start 07/14/17 at 03:30 Bisacodyl (Dulcolax Supp) 10 mg DAILY PRN RECTAL SEVERE CONSITIPATION; Start at 03:30 Lactulose (Lactulose Liq) 30 ml DAILY PRN PO SEVERE CONSITIPATION; Start at 03:30 Pharmacy Profile Note 0 ml @ 0 mls/hr UNSCH OTHER ; Start 07/14/17 at 03:30 Vancomycin HCl 1000 mg/Sodium Chloride 250 ml @ 250 mls/hr ONCE ONCE IV ; Start 07/14/17 at 03:30; Stop 07/14/17 at 04:29; Status UNV Hydromorphone HCl (Dilaudid Pf Inj) 0.5 mg Q4H PRN IV PAIN 1-10 Last administered on 07/16/17 10:32; Start 07/14/17 at 04:00; Stop 07/16/17 at 12:44 ; Status DC Fentanyl Citrate 250 ml @ 5 mls/hr Q24H PRN IV SEDATION Last administered on 04:29; Start 07/14/17 at 03:56; Stop 07/16/17 at 12:44; Status DC Hydralazine HCl (Apresoline Inj) 20 mg Q4H PRN IV PUSH SBP>160, DBP>90 Last administered on 07/17/17 08:13; Start 07/14/17 at 04:00 Pharmacy Profile Note 0 ml @ 0 mls/hr UNSCH OTHER ; Start 07/14/17 at 05:30; Stop 07/14/17 at 05:30; Status DC Vancomycin HCl 1000 mg/Sodium Chloride 250 ml @ 250 mls/hr ONCE ONCE IV ; Start 07/14/17 at 05:30; Stop 07/14/17 at 06:29; Status UNV Dextrose (D50w (Vial) Inj) 50 ml UNSCH PRN IV HYPOGLYCEMIA-SEE COMMENTS; Start 07/14/17 at 05:30; Stop 07/14/17 at 10:45; Status DC Glucagon (Glucagon Inj) 1 mg UNSCH PRN OTHER HYPOGLYCEMIA-SEE COMMENTS; Start 07/14/17 at 05:30; Stop 07/14/17 at 10:45; Status DC Insulin Aspart (NovoLOG SUPPLEMENTAL SCALE) 1 ACHS SLIDING SCALE SQ Last administered on 07/14/17 06:42; Start 07/14/17 at 07:00; Stop 07/14/17 at 10:10 ; Status DC Vancomycin HCl 1500 mg/Sodium Chloride 515 ml @ 250 mls/hr Q12H IV Last administered on 07/16/17 06:01; Start 07/14/17 at 14:00; Stop 07/16/17 at 08:58 ; Status DC Miscellaneous Information SPECIFIC LAB TO BE DRAWN:VANCOMYCIN TROUGH DATE TO... ONCE ONCE .XX ; Start 07/16/17 at 01:45; Stop 07/16/17 at 01:46; Status DC Sodium Chloride 1,000 ml @ 84 mls/hr [id number] IV Last administered on 00:19; Start 07/14/17 at 11:00; Stop 07/16/17 at 12:44; Status DC Dextrose (D50w (Vial) Inj) 50 ml UNSCH PRN IV HYPOGLYCEMIA-SEE COMMENTS; Start 07/14/17 at 10:15; Stop 07/17/17 at 09:56; Status DC Glucagon (Glucagon Inj) 1 mg UNSCH PRN OTHER HYPOGLYCEMIA-SEE COMMENTS; Start 07/14/17 at 10:15; Stop 07/17/17 at 09:56; Status DC Insulin Human Regular (NovoLIN R SUPPLEMENTAL SCALE) 1 Q4H SQ Last administered on 07/15/17 06:48; Start 07/14/17 at 11:00; Stop 07/16/17 at 17:20 ; Status DC Potassium Chloride 100 ml @ 50 mls/hr Q2H PRN IV For Potassium 2.8 - 3.2 mEq/ L Last administered on 07/18/17t 16:54; Start 07/14/17 at 10:15 Potassium Chloride 100 ml @ 50 mls/hr Q2H PRN IV For Potassium 2.8 - 3.2 mEq/L ; Start 07/14/17 at 10:15 Potassium Bicarb/ Potassium Chloride (K-Lyte Cl Eff) 50 meq UNSCH PRN PO For Potassium 3.3 - 3.5 mEq/L; Start 07/14/17 at 10:15 Potassium Chloride 100 ml @ 25 mls/hr UNSCH PRN IV For Potassium 3.3 - 3.5 mEq /L; Start 07/14/17 at 10:15 Potassium Chloride 100 ml @ 50 mls/hr Q2H PRN IV For Potassium 3.3 - 3.5 mEq/L ; Start 07/14/17 at 10:15 Magnesium Sulfate 4 gm/Sodium Chloride 100 ml @ 50 mls/hr UNSCH PRN IV For Magnesium 0.9 - 1.1 mg/dL; Start 07/14/17 at 10:15 Magnesium Oxide (Mag-Ox) 800 mg UNSCH PRN PO For Magnesium 1.2 - 1.6 mg/dL; Start 07/14/17 at 10:15 Magnesium Sulfate 2 gm/Sodium Chloride 100 ml @ 50 mls/hr UNSCH PRN IV For Magnesium 1.2 - 1.6 mg/dL; Start 07/14/17 at 10:15 Potassium Phosphate (K-Phos) 2,000 mg Q4H PRN PO For Phosphorus < 2.5 mg/dL; Start 07/14/17 at 10:15 Sodium Phosphate 30 mmol/Sodium Chloride 250 ml @ 42 mls/hr UNSCH PRN IV For Phosphorus < 2.5 mg/dL; Start 07/14/17 at 10:15 Potassium Phosphate (K-Phos) 2,000 mg UNSCH PRN PO/TUBE SEE LABEL COMMENTS; Start 07/14/17 at 10:15 Potassium Phosphate 30 mmol/ Sodium Chloride 260 ml @ 42 mls/hr UNSCH PRN IV SEE LABEL COMMENTS; Start 07/14/17 at 10:15 Cyclobenzaprine HCl (Flexeril) 10 mg Q8H PRN PO muscle spasms Last administered on 07/16/17 20:52; Start 07/15/17 at 06:15 Famotidine (Pepcid Liq) 20 mg BID NG Last administered on 07/19/17 07:35; Start 07/15/17 at 09:00 Hydromorphone HCl (Dilaudid Pf Inj) 0.5 mg ONCE ONCE IV Last administered on 15:00; Start 07/15/17 at 15:00; Stop 07/15/17 at 15:01; Status DC Hydromorphone HCl (Dilaudid Pf Inj) 0.5 mg NOW ONCE IV PUSH ; Start 07/15/17 at 15:15; Stop 07/15/17 at 15:16; Status DC Furosemide (Lasix Inj) 40 mg STK-MED ONCE .ROUTE Last administered on 07:12; Start 07/16/17 at 07:12; Stop 07/16/17 at 07:13; Status DC Diltiazem HCl (Cardizem Inj) 25 mg STK-MED ONCE .ROUTE Last administered on 07:21; Start 07/16/17 at 07:21; Stop 07/16/17 at 07:22; Status DC Magnesium Sulfate/ Dextrose 100 ml @ 100 mls/hr Q1H IV Last administered on 08:45; Start 07/16/17 at 07:45; Stop 07/16/17 at 09:44; Status DC Potassium Chloride 100 ml @ 50 mls/hr Q2H IV Last administered on 07/16/17 09 :45; Start 07/16/17 at 07:45; Stop 07/16/17 at 11:44; Status DC Vancomycin HCl 1500 mg/Sodium Chloride 515 ml @ 250 mls/hr Q18H IV Last administered on 07/19/17 04:45; Start 07/17/17 at 00:00 Miscellaneous Information SPECIFIC LAB TO BE DRAWN:VANCO TROUGH DATE... ONCE ONCE .XX Last administered on 07/18/17 11:45; Start 07/18/17 at 11:45; Stop 07/18 at 11:46; Status DC Potassium Chloride (KCl) 40 meq NOW ONCE PO Last administered on 07/16/17 10: 32; Start 07/16/17 at 11:00; Stop 07/16/17 at 11:01; Status DC Hydromorphone HCl (Dilaudid Pf Inj) 0.5 mg Q2H PRN IV PAIN 6-10 or not taking po Last administered on 07/19/17 07:32; Start 07/16/17 at 14:00; Stop 07/19/17 at 07:52; Status DC Oxycodone HCl (Roxicodone) 5 mg Q4H PRN PO pain 1-5 Last administered on 11:50; Start 07/16/17 at 14:00 Diltiazem HCl (Cardizem) 60 mg Q6H PO Last administered on 07/19/17 10:25; Start 07/17/17 at 10:00 Dextrose (D50w (Vial) Inj) 50 ml UNSCH PRN IV HYPOGLYCEMIA-SEE COMMENTS; Start 07/17/17 at 09:00 Glucagon (Glucagon Inj) 1 mg UNSCH PRN OTHER HYPOGLYCEMIA-SEE COMMENTS; Start 07/17/17 at 09:00 Insulin Human Regular (NovoLIN R SUPPLEMENTAL SCALE) 1 Q6H SQ ; Start 07/17/17 at 10:00 Aztreonam 2000 mg/ Sodium Chloride 100 ml @ 200 mls/hr Q8H IV ; Start 07/17/17 at 10:00; Stop 07/17/17 at 10:02; Status DC Vancomycin HCl (VANCOMYCIN for oral use only) 125 mg QID PO Last administered on 07/19/17 07:34; Start 07/17/17 at 13:00; Stop 07/31/17 at 12:59 Hydromorphone HCl (Dilaudid Pf Inj) 0.5 mg ONCE ONCE IV PUSH Last administered on 07/17/17 14:40; Start 07/17/17 at 14:30; Stop 07/17/17 at 14:33; Status DC Hydralazine HCl (Apresoline) 50 mg Q8HR PO Last administered on 07/19/17 04:44 ; Start 07/18/17 at 09:30 Hydromorphone HCl (Dilaudid Pf Inj) 1 mg Q2H PRN IV PAIN 6-10 or not taking po Last administered on 9/3/17at 10:26; Start 07/19/17 at 09:00 Other Results Laboratory Tests Test 07/18/17 04:14 07/19/17 01:20 White Blood Count 20.5 TH/MM3 20.8 TH/MM3 Red Blood Count 3.22 MIL/MM3 3.14 MIL/MM3 Hemoglobin 8.1 GM/DL 7.9 GM/DL Hematocrit 26.4 % 25.8 % Mean Corpuscular Volume 81.8 FL 82.2 FL Mean Corpuscular Hemoglobin 25.2 PG 25.2 PG Mean Corpuscular Hemoglobin Concent 30.8 % 30.6 % Red Cell Distribution Width 18.4 % 18.2 % Platelet Count 627 TH/MM3 552 TH/MM3 Mean Platelet Volume 6.4 FL 6.6 FL Neutrophils (%) (Auto) 86.1 % Lymphocytes (%) (Auto) 6.0 % Monocytes (%) (Auto) 7.0 % Eosinophils (%) (Auto) 0.6 % Basophils (%) (Auto) 0.3 % Neutrophils # (Auto) 17.7 TH/MM3 Lymphocytes # (Auto) 1.2 TH/MM3 Monocytes # (Auto) 1.4 TH/MM3 Eosinophils # (Auto) 0.1 TH/MM3 Basophils # (Auto) 0.1 TH/MM3 CBC Comment DIFF FINAL Differential Comment Laboratory Tests Test 07/18/17 04:14 07/19/17 01:20 Blood Urea Nitrogen 15 MG/DL 15 MG/DL Creatinine 0.69 MG/DL 0.71 MG/DL Random Glucose 121 MG/DL 87 MG/DL Calcium Level 8.4 MG/DL 8.5 MG/DL Phosphorus Level 2.7 MG/DL Magnesium Level 1.8 MG/DL Sodium Level 140 MEQ/L 139 MEQ/L Potassium Level 3.1 MEQ/L 3.7 MEQ/L Chloride Level 105 MEQ/L 104 MEQ/L Carbon Dioxide Level 28.8 MEQ/L 26.6 MEQ/L Anion Gap 6 MEQ/L 8 MEQ/L Estimat Glomerular Filtration Rate 113 ML/MIN 109 ML/MIN Microbiology Date/Time Source Procedure Growth Status 07/18/17 13:52 Blood Peripheral Aerobic Blood Culture - Preliminary NO GROWTH IN 1 DAY Resulted 07/18/17 13:52 Blood Peripheral Anaerobic Blood Culture - Preliminary NO GROWTH IN 1 DAY Resulted 07/18/17 13:45 Blood Peripheral Aerobic Blood Culture - Preliminary NO GROWTH IN 1 DAY Resulted 07/18/17 13:45 Blood Peripheral Anaerobic Blood Culture - Preliminary NO GROWTH IN 1 DAY Resulted 07/18/17 09:35 Urine Clean Catch Urine Culture - Preliminary NO GROWTH IN 24 HOURS. Resulted Exam-Podiatry Constitutional General appearance: comfortable Nutritional status: normal Orientation: alert and oriented x3 Dermatological Exam Skin Temp - Right: Within Normal Limits Skin Texture - Right: Within Normal Limits Skin Elasticity - Right: Within Normal Limits Skin Tugor - Right: Within Normal Limits Hair Growth - Right: Within Normal Limits Pigmentation - Right: Within Normal Limits Skin Temp - Left: Cool Skin Texture - Left: Within Normal Limits Skin Elasticity - Left: Decreased Skin Tugor - Left: Decreased Hair Growth - Left: Absent Pigmentation - Left: Within Normal Limits Ulcers: Location/Measurements Gangrenous eschar dorsal aspect of the left hallux Vascular/Lymphatic Exam R Dorsails Pedis: Doppler L Dorsails Pedis: Doppler R Posterior Tibial: Doppler L Posterior Tibial: Doppler Neurologic Exam Details Deferred Foot Range of Motion Dorsiflexion (Right): Normal Plantarflexion (Right): Normal Inversion (Right): Normal Eversion (Right): Normal Digital (Right): Normal Dorsiflexion (Left): Normal Plantarflexion (Left): Normal Inversion (Left): Normal Eversion (Left): Normal Digital (Left): Normal Assessment & Plan Diagnosis: (1) Diabetes mellitus with peripheral angiopathy with gangrene ICD Codes: E11.52 - Type 2 diabetes mellitus with diabetic peripheral angiopathy with gangrene Status: Acute (2) Foot ulceration ICD Codes: L97.509 - Non-pressure chronic ulcer of other part of unspecified foot with unspecified severity Status: Acute A/P PLAN: Await results of angiogram and endovascular intervention by Dr. Anand on Thursday.. Patient will require either an amputation of the left hallux or deep debridement with application of negative pressure wound VAC. Continue to follow. Problem Qualifiers (1) Diabetes mellitus with peripheral angiopathy with gangrene: Qualified Codes: E11.52 - Type 2 diabetes mellitus with diabetic peripheral angiopathy with gangrene (2) Foot ulceration: Qualified Codes: L97.523 - Non-pressure chronic ulcer of other part of left foot with necrosis of muscle Gamal Arvizu DPM Jul 19, 2017 12:08
[2017-07-19] MEDS: RESP: ALBUTEROL 2.5 MG/IPRATROPIUM 0.5 MG NEB (PRN) INH (17:37)
[2017-07-19] MEDS: DONEPEZIL HCL 5 MG TAB PO SCH (21:02)
[2017-07-19] MEDS: ATORVASTATIN 40 MG TAB PO SCH (21:02)
[2017-07-20] VITALS (14 sets, daily range): BP systolic 134–168; BP diastolic 62–74; PULSE 63–83; RESP 16–21; TEMP 98.4–99.9; O2SAT 95–100
[2017-07-20] MEDS: VANCOMYCIN INJ 1,500 MG in SODIUM CHLORID 0.9% 500 ML INJ 500 ML IV SCH ×2 (00:57→17:13)
[2017-07-20] MEDS: HYDROmorphone HCL PF 1 MG/ML VIAL IV PRN ×5 (00:58→22:59)
[2017-07-20] MEDS: CHLORHEXIDINE GLUCONATE 2 % 1 PACK (2 CLOTHS) TOP SCH (03:20)
[2017-07-20] MEDS: INSULIN NovoLIN REGULAR SUPPLEMENTAL SCALE SQ SCH ×4 (03:20→21:42)
[2017-07-20] MEDS: HEPARIN SODIUM - SQ 10,000 UNITS/ML VIAL SQ SCH ×3 (04:55→21:47)
[2017-07-20] MEDS: hydrALAZINE HCL 50 MG TAB PO SCH ×3 (04:56→21:47)
[2017-07-20] MEDS: DILTIAZEM HCL 60 MG TAB PO SCH ×4 (04:56→21:47)
[2017-07-20 06:19] LABS: AUTOMATED NEUTROPHIL # 10.8 TH/MM3 (1.8-7.7); BASOPHIL # 0.1 TH/MM3 (0-0.2); BASOPHIL % 0.5 % (0.0-2.0); EOSINOPHIL # 0.4 TH/MM3 (0-0.4); EOSINOPHIL % 3.1 % (0.0-4.0); HEMATOCRIT 22.8 % (39.0-51.0); HEMO FLAGS DIFF FINAL; LYMPH % 9.3 % (9.0-44.0); LYMPHOCYTE # 1.3 TH/MM3 (1.0-4.8); MEAN CORPUSCULAR HEMOGLOBIN 25.5 PG (27.0-34.0); MEAN CORPUSCULAR HGB CONC 31.1 % (32.0-36.0); MONO % 11.5 % (0.0-8.0); NEUT % 75.6 % (16.0-70.0); PLATELET COUNT 487 TH/MM3 (150-450); RED BLOOD COUNT 2.78 MIL/MM3 (4.50-5.90); RED CELL DISTRIBUTION WIDTH 18.1 % (11.6-17.2); WHITE BLOOD COUNT 14.3 TH/MM3 (4.0-11.0)
[2017-07-20 06:43] LABS: BICARBONATE 25.3 MEQ/L (21.0-32.0); POTASSIUM 3.6 MEQ/L (3.5-5.1)
--- NOTE | 2017-07-20 07:28 | HHI.CCPN ---
Subjective Remarks/Hospital Course Hospital Course: 71-year-old gentleman with past medical history of hypertension, COPD, hyperlipidemia, recently treated for left foot osteomyelitis, presents today with altered mental status. As per , he had taken some flexeril and 1 oxycodone this morning. However, he went to sleep at around 2:30pm and that was the last normal as per . At about 4pm, she noticed he was having difficulty breathing and also dosing off but did not decide to come to the ED until hours later. Pt had recent admission 07/02/17 for osteomyelitis of left metatarsal and had debridement and biopsy and culture by Dr. Arvizu on . Culture grew MRSA and ID recommended vancomycin however per chart documentation patient refused. In the emergency department he was too lethargic to protect his airways and was intubated by ED attending. Subjective: 07/15: remains encephalopathic without significant improvements. wbc stable. MRSA in wound culture. 07/16: extubated yesterday, did well overnight on 2L nc. This morning, became acutely tachycardic which appears to be afib RVR and then became dyspneic and hypoxic. physical exam pertinent for bilateral crackles throughout all lung leonard, likely acute flash pulmonary edema secondary to afib secondary to volume overload. lasix 80mg iv x 1 given, patient placed on bipap, iv diltiazem given. 07/17 Patient is lying in bed in no acute resp distress, on room air oxygen when seen. Hypertensive. 07/18 No events overnight. Patient is lying in bed in NAD. T;100.1 last night 07/19 Patient is awake, alert lying in bed in NAD. T:99.9 last night. 07/20 No events overnight. Afebrile, WBC is trending down. For Angiogram and revasc tomorrow per vascular surgery. Objective Vital Signs Date Time Temp Pulse Resp B/P (MAP) Pulse Ox O2 Delivery O2 Flow Rate FiO2 07/20/17 06:00 67 07/20/17 04:00 98.4 21 156/69 (98) 100 07/19/17 19:47 21 07/19/17 12:36 Nasal Cannula 3.00 Intake and Output 07/20/17 07/20/17 07/21/17 08:00 16:00 00:00 Intake Total 1343 ml Output Total 950 ml Balance 393 ml Result Diagram: 07/20/17 0448 07/20/17 0448 Other Results Laboratory Tests Test 07/20/17 04:48 White Blood Count 14.3 TH/MM3 Red Blood Count 2.78 MIL/MM3 Hemoglobin 7.1 GM/DL Hematocrit 22.8 % Mean Corpuscular Volume 82.0 FL Mean Corpuscular Hemoglobin 25.5 PG Mean Corpuscular Hemoglobin Concent 31.1 % Red Cell Distribution Width 18.1 % Platelet Count 487 TH/MM3 Mean Platelet Volume 6.6 FL Neutrophils (%) (Auto) 75.6 % Lymphocytes (%) (Auto) 9.3 % Monocytes (%) (Auto) 11.5 % Eosinophils (%) (Auto) 3.1 % Basophils (%) (Auto) 0.5 % Neutrophils # (Auto) 10.8 TH/MM3 Lymphocytes # (Auto) 1.3 TH/MM3 Monocytes # (Auto) 1.6 TH/MM3 Eosinophils # (Auto) 0.4 TH/MM3 Basophils # (Auto) 0.1 TH/MM3 CBC Comment DIFF FINAL Differential Comment Blood Urea Nitrogen 15 MG/DL Creatinine 0.68 MG/DL Random Glucose 98 MG/DL Calcium Level 8.5 MG/DL Sodium Level 138 MEQ/L Potassium Level 3.6 MEQ/L Chloride Level 105 MEQ/L Carbon Dioxide Level 25.3 MEQ/L Anion Gap 8 MEQ/L Estimat Glomerular Filtration Rate 115 ML/MIN Imaging Last Impressions Lower Extremity Ultrasound 07/18/17 0000 Signed Impressions: Service Date/Time: Tuesday, July 18, 2017 10:04 - CONCLUSION: Normal examination. Bautista Hoff MD Chest X-Ray 07/17/17 0000 Signed Impressions: Service Date/Time: Monday, July 17, 2017 09:34 - CONCLUSION: Compensated cardiomegaly with minimal bibasilar clinical changes. Jayme Anderson MD FACR Head CT 07/14/17 0043 Signed Impressions: Service Date/Time: Friday, July 14, 2017 02:09 - CONCLUSION: No acute intracranial abnormality is identified. Jose Miller MD Foot X-Ray 07/14/17 0000 Signed Impressions: Service Date/Time: Friday, July 14, 2017 01:44 - CONCLUSION: 1. Soft tissue air overlying the base of the first digit may be related to the laceration if the laceration is in this location. No radiopaque foreign body is identified. 2. Absence of the distal half of the first metatarsal likely related to prior resection. Jose Miller MD Ankle X-Ray 07/14/17 0000 Signed Impressions: Service Date/Time: Friday, July 14, 2017 01:48 - CONCLUSION: No acute left ankle abnormality is identified. Jose Miller MD Objective Remarks GENERAL: Patient is lying in bed in no resp distress SKIN: Warm and dry. HEAD: Normocephalic. EYES: No scleral icterus. No injection or drainage. NECK: Supple, trachea midline. No JVD or lymphadenopathy. CARDIOVASCULAR: Regular rate and rhythm without murmurs, gallops, or rubs. RESPIRATORY: Breath sounds equal bilaterally. No accessory muscle use. GASTROINTESTINAL: Abdomen soft, non-tender, nondistended. MUSCULOSKELETAL: Left foot: +Left 1st MTP wound 3cm by 2cm dorsum of 1st MTP is foul smelling with surrounding erythema. +Purulent discharge. Distal phalanx black in color. DP 1 BACK: Nontender without obvious deformity. No CVA tenderness. Neuro: Awake and alert A/P Assessment and Plan Neuro: Awake and alert, CT brain 07/14: No acute findings. On Aricept for Dementia Resp Insuff- Oxygen PRN keep sat >92% Bronchodilators, CXR 07/17: No obvious infiltrates or effusions CV: PAF Hypertension Continue Cardizem 60mg Q6, Hydralazine 50mg Q8, on Hydralazine PRN. Monitor HR and BP keep MAP>65mmHg : Monitor renal function, electrolytes replacement per protocol. Diurese with Bumex 1mg x1 GI: On PO diet ID: Diabetic ulcer History of osteomyelitis -MRSA Ischemic foot UTI( Pseudomonas) Hx C-diff MRSA wound -Continue abx per ID- Vancomycin IV and PO, Lactinex, Podiatry is following. Monitor for signs of infections ( Fever, WBC) WBC is trending down -Follow up on BC and urine cx from 07/18: NGTD check C-diff PCR - Vascular surgery is following- For possible revascularization of left foot tomorrow Heme: Monitor CBC, on FESO4 325mg BID Endo: Diabetes -On SSI with accuchecks Q6 DVT GI prophylaxis - Teds SCDs - Subcutaneous heparin - Pepcid Level 3 Norman Tian MD Jul 20, 2017 07:28
[2017-07-20] MEDS ORDERED: BUMETANIDE INJ 1 MG/4 ML VIAL IV PUSH ONE (08:00)
--- NOTE | 2017-07-20 08:31 | PD.VS.PN ---
Pre-operative Note Pre-operative diagnosis: LLE tissue loss, PAD Planned procedure: L LE angiogram and potential endovascular revascularization Interval History: Pt has persistent foot wound with pain. Breathing better. Labs: Laboratory Results Test 07/14/17 01:00 07/20/17 04:48 Prothromb Time International Ratio 1.0 RATIO Anion Gap 8 MEQ/L (5-15) Blood Urea Nitrogen 15 MG/DL (7-18) Creatinine 0.68 MG/DL (0.60-1.30) Random Glucose 98 MG/DL (74-106) Calcium Level 8.5 MG/DL (8.5-10.1) Sodium Level 138 MEQ/L (136-145) Potassium Level 3.6 MEQ/L (3.5-5.1) Chloride Level 105 MEQ/L (98-107) Carbon Dioxide Level 25.3 MEQ/L (21.0-32.0) Hematocrit 22.8 % (39.0-51.0) Hemoglobin 7.1 GM/DL (13.0-17.0) Mean Corpuscular Hemoglobin 25.5 PG (27.0-34.0) Mean Corpuscular Hemoglobin Concent 31.1 % (32.0-36.0) Mean Corpuscular Volume 82.0 FL (80.0-100.0) Mean Platelet Volume 6.6 FL (7.0-11.0) Platelet Count 487 TH/MM3 (150-450) Red Blood Count 2.78 MIL/MM3 (4.50-5.90) Red Cell Distribution Width 18.1 % (11.6-17.2) White Blood Count 14.3 TH/MM3 (4.0-11.0) Blood: T&S - likely to get blood today pre-op Imaging: Last Impressions Lower Extremity Ultrasound 07/18/17 0000 Signed Impressions: Service Date/Time: Tuesday, July 18, 2017 10:04 - CONCLUSION: Normal examination. Bautsita Hoff MD Chest X-Ray 07/17/17 0000 Signed Impressions: Service Date/Time: Monday, July 17, 2017 09:34 - CONCLUSION: Compensated cardiomegaly with minimal bibasilar clinical changes. Jayme Anderson MD FACR Head CT 07/14/17 0043 Signed Impressions: Service Date/Time: Friday, July 14, 2017 02:09 - CONCLUSION: No acute intracranial abnormality is identified. Jose Miller MD Foot X-Ray 07/14/17 0000 Signed Impressions: Service Date/Time: Friday, July 14, 2017 01:44 - CONCLUSION: 1. Soft tissue air overlying the base of the first digit may be related to the laceration if the laceration is in this location. No radiopaque foreign body is identified. 2. Absence of the distal half of the first metatarsal likely related to prior resection. Jose Miller MD Ankle X-Ray 07/14/17 0000 Signed Impressions: Service Date/Time: Friday, July 14, 2017 01:48 - CONCLUSION: No acute left ankle abnormality is identified. Jose Miller MD Orders: NPO after MN Post-operative destination: PACU then MICU as pre-op Operative site marked: No (angiogram (not necessary)) Consent: Informed consent will be obtained from Jose Garcia Sr. I have explained the procedure in detail and discussed the risks, benefits, and potential complications. All questions have been answered. García Anand MD Jul 20, 2017 08:31
[2017-07-20] MEDS: ARTIFICIAL TEARS OPTH SOLN 15 ML BTL EACH EYE SCH ×3 (08:36→17:14)
[2017-07-20] MEDS: MULTIVITAMINS/MINERALS THERAPEUTIC TAB PO SCH (08:37)
[2017-07-20] MEDS: LACTOBACILLUS ACIDOPHILUS TAB PO SCH ×3 (08:37→17:14)
[2017-07-20] MEDS: ASPIRIN 81 MG CHEW TAB CHEW SCH (08:37)
[2017-07-20] MEDS: FERROUS SULFATE 325 MG (65 MG ELEMENTAL IRON) TAB PO SCH ×2 (08:39→17:14)
[2017-07-20] MEDS: VANCOMYCIN 500 MG VIAL (FOR ORAL USE ONLY) PO SCH ×4 (08:39→19:45)
[2017-07-20] MEDS: ASCORBIC ACID 500 MG TAB PO SCH (08:39)
[2017-07-20] MEDS: CITALOPRAM HYDROBROMIDE 20 MG TAB PO SCH (08:39)
[2017-07-20] MEDS: DOCUSATE SODIUM 50 MG/SENNA 8.6 MG TAB PO SCH ×2 (08:39→19:49)
[2017-07-20] MEDS: CYCLOBENZAPRINE HCL 10 MG TAB PO PRN ×2 (08:39→13:20)
[2017-07-20] MEDS: FAMOTIDINE 40 MG/5 ML LIQ 50 ML BTL NG SCH ×2 (08:40→19:49)
[2017-07-20] MEDS: SODIUM CHLORIDE 0.9% FLUSH 10 ML FLUSH SCH ×2 (08:40→19:47)
[2017-07-20] MEDS: BUDESONIDE-FORMOTEROL 80/4.5 MCG INHALER INH SCH ×2 (08:40→19:48)
[2017-07-20 15:52] LABS: HEMATOCRIT 22.6 % (39.0-51.0); REVIEW FLAG FINAL
[2017-07-20] MEDS: DONEPEZIL HCL 5 MG TAB PO SCH (19:46)
[2017-07-20] MEDS: ATORVASTATIN 40 MG TAB PO SCH (19:46)
[2017-07-20] MEDS: LATANOPROST 0.005% OPHT SOLN 2.5 ML BTL EACH EYE SCH (19:48)
[2017-07-21] VITALS (27 sets, daily range): BP systolic 132–199; BP diastolic 69–124; PULSE 71–97; RESP 16–26; TEMP 97.9–99.8; O2SAT 83–100
[2017-07-21] MEDS: CHLORHEXIDINE GLUCONATE 2 % 1 PACK (2 CLOTHS) TOP SCH (01:37)
[2017-07-21] MEDS: RESP: ALBUTEROL 2.5 MG/IPRATROPIUM 0.5 MG NEB (PRN) INH (02:00)
[2017-07-21] MEDS: HYDROmorphone HCL PF 1 MG/ML VIAL IV PRN ×3 (03:19→19:42)
[2017-07-21] MEDS: INSULIN NovoLIN REGULAR SUPPLEMENTAL SCALE SQ SCH ×4 (04:00→22:00)
[2017-07-21] MEDS: DILTIAZEM HCL 60 MG TAB PO SCH ×4 (04:00→20:43)
[2017-07-21 04:16] LABS: HEMATOCRIT 21.5 % (39.0-51.0); MEAN CELL VOLUME 80.6 FL (80.0-100.0); MEAN CORPUSCULAR HEMOGLOBIN 25.4 PG (27.0-34.0); MEAN CORPUSCULAR HGB CONC 31.5 % (32.0-36.0); PLATELET COUNT 482 TH/MM3 (150-450); RED BLOOD COUNT 2.67 MIL/MM3 (4.50-5.90); RED CELL DISTRIBUTION WIDTH 18.1 % (11.6-17.2); WHITE BLOOD COUNT 14.7 TH/MM3 (4.0-11.0)
[2017-07-21 04:28] LABS: REVIEW FLAG FINAL
[2017-07-21] MEDS: hydrALAZINE HCL 20 MG/ML VIAL IV PUSH PRN (04:28)
[2017-07-21] MEDS: hydrALAZINE HCL 50 MG TAB PO SCH ×3 (04:28→20:42)
[2017-07-21 04:47] LABS: BICARBONATE 28.9 MEQ/L (21.0-32.0); POTASSIUM 3.1 MEQ/L (3.5-5.1)
[2017-07-21] MEDS: HEPARIN SODIUM - SQ 10,000 UNITS/ML VIAL SQ SCH ×3 (05:34→20:42)
--- NOTE | 2017-07-21 07:41 | HHI.CCPN ---
Subjective Remarks/Hospital Course Hospital Course: 71-year-old gentleman with past medical history of hypertension, COPD, hyperlipidemia, recently treated for left foot osteomyelitis, presents today with altered mental status. As per , he had taken some flexeril and 1 oxycodone this morning. However, he went to sleep at around 2:30pm and that was the last normal as per . At about 4pm, she noticed he was having difficulty breathing and also dosing off but did not decide to come to the ED until hours later. Pt had recent admission 07/02/17 for osteomyelitis of left metatarsal and had debridement and biopsy and culture by Dr. Arvizu on . Culture grew MRSA and ID recommended vancomycin however per chart documentation patient refused. In the emergency department he was too lethargic to protect his airways and was intubated by ED attending. Subjective: 07/15: remains encephalopathic without significant improvements. wbc stable. MRSA in wound culture. 07/16: extubated yesterday, did well overnight on 2L nc. This morning, became acutely tachycardic which appears to be afib RVR and then became dyspneic and hypoxic. physical exam pertinent for bilateral crackles throughout all lung leonard, likely acute flash pulmonary edema secondary to afib secondary to volume overload. lasix 80mg iv x 1 given, patient placed on bipap, iv diltiazem given. 07/17 Patient is lying in bed in no acute resp distress, on room air oxygen when seen. Hypertensive. 07/18 No events overnight. Patient is lying in bed in NAD. T;100.1 last night 07/19 Patient is awake, alert lying in bed in NAD. T:99.9 last night. 07/20 No events overnight. Afebrile, WBC is trending down. For Angiogram and revasc tomorrow per vascular surgery. 07/21 No events overnight. Patient is for OR this afternoon. Hgb 6.8 this morning 2units PRBC ordered. T:99.9 Objective Vital Signs Date Time Temp Pulse Resp B/P (MAP) Pulse Ox O2 Delivery O2 Flow Rate FiO2 07/21/17 06:00 93 07/21/17 04:00 99.3 20 155/69 (97) 90 07/20/17 08:54 Nasal Cannula 5.00 07/19/17 19:47 21 Intake and Output 07/21/17 07/21/17 07/22/17 08:00 16:00 00:00 Intake Total 612 ml Output Total 900 ml Balance -288 ml Result Diagram: 07/21/17 0325 07/21/17 0325 Other Results Laboratory Tests Test 07/20/17 14:38 07/21/17 03:25 Hemoglobin 7.1 GM/DL 6.8 GM/DL Hematocrit 22.6 % 21.5 % Potassium Level 3.4 MEQ/L 3.1 MEQ/L White Blood Count 14.7 TH/MM3 Red Blood Count 2.67 MIL/MM3 Mean Corpuscular Volume 80.6 FL Mean Corpuscular Hemoglobin 25.4 PG Mean Corpuscular Hemoglobin Concent 31.5 % Red Cell Distribution Width 18.1 % Platelet Count 482 TH/MM3 Mean Platelet Volume 7.0 FL Blood Urea Nitrogen 12 MG/DL Creatinine 0.71 MG/DL Random Glucose 100 MG/DL Calcium Level 8.3 MG/DL Sodium Level 137 MEQ/L Chloride Level 101 MEQ/L Carbon Dioxide Level 28.9 MEQ/L Anion Gap 7 MEQ/L Estimat Glomerular Filtration Rate 109 ML/MIN Imaging rad Last Impressions Lower Extremity Ultrasound 07/18/17 0000 Signed Impressions: Service Date/Time: Tuesday, July 18, 2017 10:04 - CONCLUSION: Normal examination. Bautista Hoff MD Chest X-Ray 07/17/17 0000 Signed Impressions: Service Date/Time: Monday, July 17, 2017 09:34 - CONCLUSION: Compensated cardiomegaly with minimal bibasilar clinical changes. Jayme Anderson MD FACR Head CT 07/14/17 0043 Signed Impressions: Service Date/Time: Friday, July 14, 2017 02:09 - CONCLUSION: No acute intracranial abnormality is identified. Jose Miller MD Foot X-Ray 07/14/17 0000 Signed Impressions: Service Date/Time: Friday, July 14, 2017 01:44 - CONCLUSION: 1. Soft tissue air overlying the base of the first digit may be related to the laceration if the laceration is in this location. No radiopaque foreign body is identified. 2. Absence of the distal half of the first metatarsal likely related to prior resection. Jose Miller MD Ankle X-Ray 07/14/17 0000 Signed Impressions: Service Date/Time: Friday, July 14, 2017 01:48 - CONCLUSION: No acute left ankle abnormality is identified. Jose Miller MD Objective Remarks GENERAL: Patient is lying in bed in no resp distress SKIN: Warm and dry. HEAD: Normocephalic. EYES: No scleral icterus. No injection or drainage. NECK: Supple, trachea midline. No JVD or lymphadenopathy. CARDIOVASCULAR: Regular rate and rhythm without murmurs, gallops, or rubs. RESPIRATORY: Breath sounds equal bilaterally. No accessory muscle use. GASTROINTESTINAL: Abdomen soft, non-tender, nondistended. MUSCULOSKELETAL: Left foot: +Left 1st MTP wound 3cm by 2cm dorsum of 1st MTP is foul smelling with surrounding erythema. +Purulent discharge. Distal phalanx black in color. DP 1 BACK: Nontender without obvious deformity. No CVA tenderness. Neuro: Awake and alert A/P Assessment and Plan Neuro: Awake and alert, CT brain 07/14: No acute findings. On Aricept for Dementia Resp Insuff- Oxygen PRN keep sat >92% Bronchodilators, CXR 07/17: No obvious infiltrates or effusions Check CXR today CV: PAF Hypertension Continue Cardizem 60mg Q6, Hydralazine 50mg Q8, on Hydralazine PRN. Monitor HR and BP keep MAP>65mmHg : Monitor renal function, electrolytes replacement per protocol. For K replacement today GI: NPO for OR today ID: Diabetic ulcer History of osteomyelitis -MRSA Ischemic foot UTI( Pseudomonas) Hx C-diff MRSA wound -Continue abx per ID- Vancomycin IV and PO, Lactinex, Podiatry is following. Monitor for signs of infections ( Fever, WBC) WBC is trending down -Follow up on BC and urine cx from 07/18: NGTD - Vascular surgery is following- For revascularization of left foot today Heme: Monitor CBC, on FESO4 325mg BID For transfusion 2units PRBC today ( Hgb 6.8) Endo: Diabetes -On SSI with accuchecks Q6 DVT GI prophylaxis - Teds SCDs - Subcutaneous heparin - Pepcid Level 3 Norman Tian MD Jul 21, 2017 07:41
[2017-07-21 08:02] LABS: MAGNESIUM 1.7 MG/DL (1.5-2.5)
[2017-07-21] MEDS: BUDESONIDE-FORMOTEROL 80/4.5 MCG INHALER INH SCH ×2 (09:00→20:39)
[2017-07-21] MEDS: DOCUSATE SODIUM 50 MG/SENNA 8.6 MG TAB PO SCH ×2 (09:00→21:00)
[2017-07-21] MEDS ORDERED: POTASSIUM CHLORIDE 25 MEQ EFFERVESCENT TAB PO ONE (09:00)
[2017-07-21] MEDS: ARTIFICIAL TEARS OPTH SOLN 15 ML BTL EACH EYE SCH ×3 (09:00→17:08)
[2017-07-21] MEDS: ASPIRIN 81 MG CHEW TAB CHEW SCH (09:00)
--- NOTE | 2017-07-21 09:11 | RADRPT ---
EXAM DATE/TIME: 07/21/2017 07:49 [facility] COMPARISON: CHEST SINGLE AP, July 17, 2017, 9:34. INDICATIONS : Short of breath. MEDICAL HISTORY : Chronic obstructive pulmonary disease. Hypertension Pancreatitis. SURGICAL HISTORY : None. ENCOUNTER: Subsequent ACUITY: 1 week PAIN SCORE: Non-responsive. LOCATION: Bilateral chest FINDINGS: The cardiac silhouette is enlarged in transverse diameter. There is left lower lobe atelectasis versu s pneumonia. There is subsegmental atelectasis in the right base. CONCLUSION: 1. Left lower lobe atelectasis versus pneumonia. There has been no significant change when compared t o the prior exam. Yo Mcbride MD on July 21, 2017 at 9:09 Board Certified Radiologist. This report was verified electronically.
[2017-07-21] MEDS: ASCORBIC ACID 500 MG TAB PO SCH (09:35)
[2017-07-21] MEDS: LACTOBACILLUS ACIDOPHILUS TAB PO SCH ×3 (09:35→17:07)
[2017-07-21] MEDS: FERROUS SULFATE 325 MG (65 MG ELEMENTAL IRON) TAB PO SCH ×2 (09:35→17:19)
[2017-07-21] MEDS: MULTIVITAMINS/MINERALS THERAPEUTIC TAB PO SCH (09:35)
[2017-07-21] MEDS: VANCOMYCIN 500 MG VIAL (FOR ORAL USE ONLY) PO SCH ×4 (09:36→20:42)
[2017-07-21] MEDS: CITALOPRAM HYDROBROMIDE 20 MG TAB PO SCH (09:44)
[2017-07-21] MEDS: SODIUM CHLORIDE 0.9% FLUSH 10 ML FLUSH SCH ×2 (09:45→21:00)
--- NOTE | 2017-07-21 11:31 | HHI.IDPN ---
Note Infectious Disease Note ID Xcover for . Chart reviewed for history and details. is a 71 y/o CM with PMHx of left great toe surgery with MRSA. Patient has prior h/o Cdiff and refused to go home with any antibiotics per review of records. 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 Admitted to ICU with Severe Sepsis, Acute resp failure on vent, acute encephalopathy, Afib, flash pulm edema. Vascular surgery saw patient and pt has severe PID based on review of notes. Also s/b podiatry plans for debridement. Notes reviewed For revascularization procedure. Denies SOB Having diarrhea No abdominal pain C/O pain in his L foot Wound culture has MRSA. The patient has had a history of C-difficile colitis and previously refused treatment with antibiotics. PAST HISTORY 1. Hypertension 2. COPD 3. Hyperlipidemia 4. dementia 5. Transient ischemic attack. 6. History of shingles 7. Glaucoma 8. History of appendectomy. 9. History of back surgery. 10. History of penile implant. 11. History of surgery for arachnoiditis. 12. Carotid artery surgery 13. History of C-difficile colitis. 14. Left knee septic arthritis. ALLERGIES ERYTHROMYCIN METRONIDAZOLE PENICILLIN SULFAMETHOXAZOLE TRIMETHOPRIM OXYCODONE MORPHINE MEPERIDINE ASPIRIN ACETAMINOPHEN MRI precaution. OBJECTIVE: Vital Signs Date Time Temp Pulse Resp B/P (MAP) Pulse Ox O2 Delivery O2 Flow Rate FiO2 07/21/17 08:00 99.0 91 21 170/76 91 07/21/17 07:43 99.7 91 25 163/74 95 07/21/17 06:00 93 07/21/17 04:00 99.3 86 20 155/69 (97) 90 07/21/17 04:00 86 07/21/17 02:00 85 07/21/17 00:00 99.8 79 22 169/73 (105) 97 07/21/17 00:00 79 07/20/17 22:00 78 07/20/17 20:44 16 07/20/17 20:15 16 07/20/17 20:00 99.9 77 16 168/74 (105) 95 07/20/17 20:00 77 07/20/17 18:00 67 07/20/17 16:00 67 07/20/17 16:00 98.6 75 20 150/67 (94) 96 07/20/17 14:00 67 07/20/17 12:00 98.4 83 20 154/72 (99) 100 07/20/17 12:00 67 Laboratory Tests Test 07/20/17 04:48 07/20/17 14:38 07/21/17 03:25 White Blood Count 14.3 TH/MM3 14.7 TH/MM3 Red Blood Count 2.78 MIL/MM3 2.67 MIL/MM3 Hemoglobin 7.1 GM/DL 7.1 GM/DL 6.8 GM/DL Hematocrit 22.8 % 22.6 % 21.5 % Mean Corpuscular Volume 82.0 FL 80.6 FL Mean Corpuscular Hemoglobin 25.5 PG 25.4 PG Mean Corpuscular Hemoglobin Concent 31.1 % 31.5 % Red Cell Distribution Width 18.1 % 18.1 % Platelet Count 487 TH/MM3 482 TH/MM3 Mean Platelet Volume 6.6 FL 7.0 FL Neutrophils (%) (Auto) 75.6 % Lymphocytes (%) (Auto) 9.3 % Monocytes (%) (Auto) 11.5 % Eosinophils (%) (Auto) 3.1 % Basophils (%) (Auto) 0.5 % Neutrophils # (Auto) 10.8 TH/MM3 Lymphocytes # (Auto) 1.3 TH/MM3 Monocytes # (Auto) 1.6 TH/MM3 Eosinophils # (Auto) 0.4 TH/MM3 Basophils # (Auto) 0.1 TH/MM3 CBC Comment DIFF FINAL Differential Comment Laboratory Tests Test 07/20/17 04:48 07/20/17 14:38 07/21/17 03:25 Blood Urea Nitrogen 15 MG/DL 12 MG/DL Creatinine 0.68 MG/DL 0.71 MG/DL Random Glucose 98 MG/DL 100 MG/DL Calcium Level 8.5 MG/DL 8.3 MG/DL Sodium Level 138 MEQ/L 137 MEQ/L Potassium Level 3.6 MEQ/L 3.4 MEQ/L 3.1 MEQ/L Chloride Level 105 MEQ/L 101 MEQ/L Carbon Dioxide Level 25.3 MEQ/L 28.9 MEQ/L Anion Gap 8 MEQ/L 7 MEQ/L Estimat Glomerular Filtration Rate 115 ML/MIN 109 ML/MIN Phosphorus Level 2.7 MG/DL Magnesium Level 1.7 MG/DL Microbiology Date/Time Source Procedure Growth Status 07/18/17 13:52 Blood Peripheral Aerobic Blood Culture - Preliminary NO GROWTH IN 3 DAYS Resulted 07/18/17 13:52 Blood Peripheral Anaerobic Blood Culture - Preliminary NO GROWTH IN 3 DAYS Resulted 07/18/17 13:45 Blood Peripheral Aerobic Blood Culture - Preliminary NO GROWTH IN 3 DAYS Resulted 07/18/17 13:45 Blood Peripheral Anaerobic Blood Culture - Preliminary NO GROWTH IN 3 DAYS Resulted Microbiology Date/Time Source Procedure Growth Status 07/18/17 13:52 Blood Peripheral Aerobic Blood Culture Pending Received 07/18/17 13:52 Blood Peripheral Anaerobic Blood Culture Pending Received 07/18/17 13:45 Blood Peripheral Aerobic Blood Culture Pending Received 07/18/17 13:45 Blood Peripheral Anaerobic Blood Culture Pending Received 07/18/17 09:35 Urine Clean Catch Urine Culture Pending Received Last Impressions Chest X-Ray 07/21/17 0000 Signed Impressions: Service Date/Time: Friday, July 21, 2017 07:49 - CONCLUSION: 1. Left lower lobe atelectasis versus pneumonia. There has been no significant change when compared to the prior exam. Yo Mcbride MD Lower Extremity Ultrasound 07/18/17 0000 Signed Impressions: Service Date/Time: Tuesday, July 18, 2017 10:04 - CONCLUSION: Normal examination. Bautista Hoff MD Head CT 07/14/17 0043 Signed Impressions: Service Date/Time: Friday, July 14, 2017 02:09 - CONCLUSION: No acute intracranial abnormality is identified. Jose Miller MD Foot X-Ray 07/14/17 0000 Signed Impressions: Service Date/Time: Friday, July 14, 2017 01:44 - CONCLUSION: 1. Soft tissue air overlying the base of the first digit may be related to the laceration if the laceration is in this location. No radiopaque foreign body is identified. 2. Absence of the distal half of the first metatarsal likely related to prior resection. Jose Miller MD Ankle X-Ray 07/14/17 0000 Signed Impressions: Service Date/Time: Friday, July 14, 2017 01:48 - CONCLUSION: No acute left ankle abnormality is identified. Jose Miller MD PHYSICAL EXAMINATION: GENERAL: No acute distress. Awake and alert. Comfortable HEENT: [place] conjunctiva, no petechia, no icterus, moist oral mucosa NECK: No swelling or adenopathy. Not tender, supple LUNGS: Clear breath sounds. HEART: Regular S1-S2. No audible murmur. ABDOMEN: Bowel sounds present, flat, nontender. EXTREMITIES: LLE - the big toe is same purplish color, there is a black eschar on medial foot, dry, with mild erythema at borders, (+) odor, and has some wounds also on lateral aspect and also on the lateral malleolus, very tender with any kind on movement. SKIN: No rash. NEUROLOGIC: Non focal. PSYCHIATRIC: Calm. IMPRESSION Severe Sepsis present on admission. Recurrent fevers, etiology? - also WBC up to 20K - ?due to ongoing/worsening ischemia L foot Gangrene L foot, has PAD Extensive smoking history. HTN, Hyperlipidemia as other risk factors. Recent diagnosis of osteomyelitis MRSA. Pt declined antibiotic therapy due to prior h/o Cdiff. Acute resp failure on admission: resolved. Possible COPD exacerbation on admission. Pseudomonas luteola. Urine with < 50,000 CFU bacteria, no WBCs. Likely asymptomatic colonization. RECOMMENDATIONS Continue Vanco IV (target 15-20) On Vanco oral. Continue Lactinex. Monitor progress Marita Osborne MD Jul 21, 2017 11:31
[2017-07-21] MEDS: VANCOMYCIN INJ 1,500 MG in SODIUM CHLORID 0.9% 500 ML INJ 500 ML IV SCH (12:00)
[2017-07-21] MEDS ORDERED: HEPARIN SODIUM - SQ 10,000 UNITS/ML VIAL ONE (13:44)
[2017-07-21] MEDS ORDERED: VANCOMYCIN HCL 1000 MG VIAL ONE (14:10)
[2017-07-21] MEDS ORDERED: IOHEXOL 350 MG/ML 50 ML BTL (for RAD DIAG) ONE (14:44)
[2017-07-21] MEDS ORDERED: ONDANSETRON HCL 4 MG/2 ML VIAL IV PUSH ONE (15:05)
[2017-07-21] MEDS ORDERED: NORMOSOL R INJ 1,000 ML IV ONE (15:05)
[2017-07-21] MEDS ORDERED: ePHEDrine/NS 25 MG/5 ML SYR IV ONE (15:05)
[2017-07-21] MEDS ORDERED: PROPOFOL 200 MG/20 ML AMP IV ONE (15:05)
[2017-07-21] MEDS ORDERED: LIDOCAINE HCL 1% PF 5 ML AMPULE OTHER ONE (15:05)
[2017-07-21] MEDS ORDERED: IOHEXOL 300 MG/ML 50 ML BTL (for RAD DIAG) OTHER ONE (15:12)
[2017-07-21] MEDS ORDERED: IOHEXOL 300 MG/ML 100 ML BTL (for Rad CT) OTHER ONE (15:12)
--- NOTE | 2017-07-21 15:38 | HHI.PR ---
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 Aortogram w/ L LE angiogram 2. L SFA and popliteal BENCH WORKER HOLLOW HANDLE (5mm) 3. 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 Multiple high grade stenoses distal SFA - BENCH WORKER HOLLOW HANDLE successfully 2. Popliteal artery occlusion - recanalized and BENCH WORKER HOLLOW HANDLE 3. AT runoff to foot Complications: none Specimen(s) removed: none for pathology Estimated blood loss: 10mL Anesthesia: LMA Drains: None Fluids: 350mL IVF Patient to: PACU Patient Condition: Good Date/Time of Procedure: SEE SURGICAL CARE RECORD García Anand MD Jul 21, 2017 15:38
[2017-07-21] MEDS ORDERED: DO NOT ADM ANY ANTICOAGULANT DRUGS PRN ×2 (15:49)
[2017-07-21] MEDS: POTASSIUM CHLOR 10 MEQ PREMIX 100 ML IV SCH ×3 (17:08→20:41)
[2017-07-21 19:46] LABS: HEMATOCRIT 32.3 % (39.0-51.0); REVIEW FLAG FINAL
[2017-07-21] MEDS: LATANOPROST 0.005% OPHT SOLN 2.5 ML BTL EACH EYE SCH (20:39)
[2017-07-21] MEDS: FAMOTIDINE 40 MG/5 ML LIQ 50 ML BTL NG SCH (20:40)
[2017-07-21] MEDS: DONEPEZIL HCL 5 MG TAB PO SCH (20:42)
[2017-07-21] MEDS: ATORVASTATIN 40 MG TAB PO SCH (20:43)
--- NOTE | 2017-07-21 21:59 | MP ---
cc: DELGADO ANAND MD DATE OF SURGERY 07/21/17 PREOPERATIVE DIAGNOSIS Left lower extremity tissue loss peripheral vascular disease POSTOPERATIVE DIAGNOSIS Left lower extremity take off peripheral vascular disease PROCEDURE 1. Aortogram with left lower extremity angiograms 2. Left SFA and popliteal artery angioplasty to 5 mm. 3. Right common femoral AngioSeal. MEDICATIONS Hector Anand MD ANESTHESIA General INDICATION Mr. Garcia is a 72-year gentleman left lower extremity tissue loss and no palpable pedal pulses with a preoperative BRIAN of 0.4. He taken to the operating room for angiographic evaluation and potential treatment. There was no prior cath based imaging available for my review. DESCRIPTION OF PROCEDURE Informed consent was obtained from the patient. He was taken off to the operating room and placed supine on the operating room table. Appropriate time-out was taken to ensure patient identity site and planned procedure. The administration of 1 gram of Vancomycin was initiated prior to skin incision and will be continued postoperatively for ongoing therapy. Everyone in the room agreed to timeout and we proceeded. Vancomycin was chosen because of his preoperative antibiotic regimen. His was placed under general anesthesia and bilateral groins prepped and draped and right groin was accessed with the 21 gauge micropuncture needle. This was exchanged using Seldinger technique for a micropuncture sheath through which a 0.035 Glidewire was introduced. The micropuncture sheath was exchanged for a 4-Palestinian sheath. A VCF catheter was placed over the wire and through the sheath and an aortogram and pelvic arteriogram is obtained. The Glidewire was reintroduced and navigated down to the left common femoral artery. The VCF catheter was advanced over this. The left lower extremity arteriogram was obtained. The patient was systemically heparinized with 5000 units of IV heparin. A 0.035 Bonner wire was introduced. The VCF catheter was removed and the 4-Palestinian sheath was removed and a 6-Palestinian 90 cm sheath was introduced. The CXI catheter was placed over the Bonner wire and the Bonner wire was exchanged for a RAILCAR BRAKE OPERATOR wire. This was used to navigate past the multiple SFA stenoses and indeed the occlusion and down into the below-knee popliteal artery angiogram. The CXI catheter followed the RAILCAR BRAKE OPERATOR wire and the angiogram confirming we were indeed in the below-knee popliteal artery. The Bonner wire was then reintroduced and the CXI catheter was removed. The entire SFA popliteal segment was angioplastied with a 5 x 200 balloon. The completion angiogram showed excellent result without any recoil, extravasation or embolization. The wire, catheter and sheath were removed and the groin was closed with AngioSeal. There were no complications. I was present and scrubbed and performed the entire procedure. INTERPRETATION The patient has patent renal arteries bilaterally, patent infrarenal aorta that was very tortuous along with his iliac arteries which were tortuous. There is no stenosis of either common iliac artery, external iliac artery. The left common femoral artery and profunda are patent. The SFA is patent proximally. Distally there are several high-grade stenoses and then the popliteal artery occludes. The below knee popliteal artery reconstitutes and the anterior tibial artery is the only runoff in-line to the foot. After angioplasty of the SFA and popliteal artery, there is successful in-line flow down to the foot. MD LIZ Barger/ /3:40 PM /9:37 PM SAL
[2017-07-21] MEDS: CYCLOBENZAPRINE HCL 10 MG TAB PO PRN (22:33)
[2017-07-22] VITALS (12 sets, daily range): BP systolic 136–163; BP diastolic 64–73; PULSE 61–76; RESP 18–24; TEMP 98.7–99.8; O2SAT 93–98
[2017-07-22] MEDS: CHLORHEXIDINE GLUCONATE 2 % 1 PACK (2 CLOTHS) TOP SCH (00:23)
[2017-07-22] MEDS: HYDROmorphone HCL PF 1 MG/ML VIAL IV PRN ×8 (01:07→23:07)
[2017-07-22] MEDS: DILTIAZEM HCL 60 MG TAB PO SCH ×4 (03:17→21:01)
[2017-07-22] MEDS: INSULIN NovoLIN REGULAR SUPPLEMENTAL SCALE SQ SCH ×4 (04:00→21:02)
[2017-07-22] MEDS ORDERED: PHARMACY ORDERED LAB ONE (05:45)
[2017-07-22] MEDS: hydrALAZINE HCL 50 MG TAB PO SCH ×3 (06:20→21:01)
[2017-07-22] MEDS: LACTOBACILLUS ACIDOPHILUS TAB PO SCH ×3 (06:20→16:28)
[2017-07-22] MEDS: VANCOMYCIN INJ 1,500 MG in SODIUM CHLORID 0.9% 500 ML INJ 500 ML IV SCH (06:20)
[2017-07-22] MEDS: HEPARIN SODIUM - SQ 10,000 UNITS/ML VIAL SQ SCH ×3 (06:20→21:02)
[2017-07-22 06:28] LABS: AUTOMATED NEUTROPHIL # 9.5 TH/MM3 (1.8-7.7); BASOPHIL # 0.1 TH/MM3 (0-0.2); BASOPHIL % 0.6 % (0.0-2.0); EOSINOPHIL # 0.3 TH/MM3 (0-0.4); EOSINOPHIL % 1.9 % (0.0-4.0); HEMATOCRIT 26.2 % (39.0-51.0); HEMO FLAGS DIFF FINAL; LYMPH % 11.6 % (9.0-44.0); LYMPHOCYTE # 1.5 TH/MM3 (1.0-4.8); MEAN CELL VOLUME 82.4 FL (80.0-100.0); MEAN CORPUSCULAR HEMOGLOBIN 26.4 PG (27.0-34.0); MEAN CORPUSCULAR HGB CONC 32.1 % (32.0-36.0); MONO % 12.9 % (0.0-8.0); PLATELET COUNT 496 TH/MM3 (150-450); RED BLOOD COUNT 3.19 MIL/MM3 (4.50-5.90); RED CELL DISTRIBUTION WIDTH 17.1 % (11.6-17.2)
[2017-07-22 06:44] LABS: BICARBONATE 26.5 MEQ/L (21.0-32.0); MAGNESIUM 1.8 MG/DL (1.5-2.5); POTASSIUM 3.5 MEQ/L (3.5-5.1)
[2017-07-22 06:47] LABS: VANCOMYCIN TROUGH 14.6 MCG/ML (5.0-10.0)
[2017-07-22] MEDS: MULTIVITAMINS/MINERALS THERAPEUTIC TAB PO SCH (08:54)
[2017-07-22] MEDS: CITALOPRAM HYDROBROMIDE 20 MG TAB PO SCH (08:54)
[2017-07-22] MEDS: VANCOMYCIN 500 MG VIAL (FOR ORAL USE ONLY) PO SCH ×4 (08:54→21:01)
[2017-07-22] MEDS: CYCLOBENZAPRINE HCL 10 MG TAB PO PRN (08:54)
[2017-07-22] MEDS: ASCORBIC ACID 500 MG TAB PO SCH (08:54)
[2017-07-22] MEDS: FERROUS SULFATE 325 MG (65 MG ELEMENTAL IRON) TAB PO SCH ×2 (08:54→16:28)
[2017-07-22] MEDS: ARTIFICIAL TEARS OPTH SOLN 15 ML BTL EACH EYE SCH ×3 (08:59→16:32)
[2017-07-22] MEDS: SODIUM CHLORIDE 0.9% FLUSH 10 ML FLUSH SCH ×2 (08:59→21:00)
[2017-07-22] MEDS: FAMOTIDINE 40 MG/5 ML LIQ 50 ML BTL NG SCH ×2 (09:00→21:05)
[2017-07-22] MEDS: BUDESONIDE-FORMOTEROL 80/4.5 MCG INHALER INH SCH ×2 (09:00→21:00)
[2017-07-22] MEDS: DOCUSATE SODIUM 50 MG/SENNA 8.6 MG TAB PO SCH ×2 (09:00→21:00)
--- NOTE | 2017-07-22 11:08 | PD.VS.PN ---
Subjective POD #: 1 Procedure(s): Aortogram w/ L LE angiogram L SFA and popliteal SOFTWARE CONFIGURATION ENGINEER (5mm) R RANGE MASTER Angioseal Subjective/Hospital Course Pt transferred from bed to chair w/ PT Pain controlled Objective Vitals/I&O Date Time Temp Pulse Resp B/P (MAP) Pulse Ox O2 Delivery O2 Flow Rate FiO2 07/22/17 08:08 98 Nasal Cannula 2.00 07/22/17 08:00 69 07/22/17 08:00 98.8 69 23 156/72 (100) 98 07/22/17 06:00 61 07/22/17 04:00 64 07/22/17 04:00 99.3 64 24 136/64 (88) 96 07/22/17 03:47 20 07/22/17 02:00 68 07/22/17 00:00 74 07/22/17 00:00 99.8 74 21 157/73 (101) 97 07/21/17 23:00 79 07/21/17 22:00 72 07/21/17 21:44 20 07/21/17 21:00 71 07/21/17 20:00 99.3 74 16 158/71 (100) 98 07/21/17 20:00 74 07/21/17 19:55 98 Nasal Cannula 2.00 07/21/17 19:30 79 17 154/72 (99) 100 07/21/17 19:30 79 07/21/17 19:00 84 07/21/17 19:00 84 26 181/124 (143) 83 07/21/17 18:30 80 07/21/17 18:30 80 18 170/78 (108) 97 07/21/17 18:00 86 07/21/17 18:00 86 19 173/80 (111) 100 07/21/17 17:37 86 17 181/112 (135) 07/21/17 17:37 86 07/21/17 17:00 82 19 162/76 (104) 07/21/17 17:00 82 07/21/17 16:41 99.1 78 17 132/73 (92) 96 07/21/17 16:41 78 07/21/17 16:30 98.0 76 14 166/89 (114) 99 Nasal Cannula 2 07/21/17 16:15 74 14 168/72 (104) 100 Nasal Cannula 4 07/21/17 16:00 77 14 156/71 (99) 100 Nasal Cannula 4 07/21/17 15:49 98.0 77 14 162/76 (104) 100 Nasal Cannula 4 07/21/17 14:00 187/82 (117) 07/21/17 14:00 80 07/21/17 13:01 78 07/21/17 13:00 77 07/21/17 13:00 78 19 178/72 (107) 98 07/21/17 12:00 85 07/21/17 12:00 85 23 189/82 (117) 90 07/21/17 12:00 97.9 80 19 189/82 96 07/21/17 11:35 99.4 83 24 181/79 94 07/21/17 11:00 88 07/21/17 11:00 88 23 169/78 (108) 86 07/21/17 10:49 95 21 07/22/17 07/22/17 07/22/17 07:00 15:00 23:00 Intake Total 721 ml Output Total 750 ml Balance -29 ml Exam: GENERAL: Pt A&OX3,GCS15, NAD SKIN: Warm and dry/L foot hallux ischemia present with sutures intact L - DP with strong biphasic signals LE warm R groin soft non tender w/o a hematoma or swelling Laboratory Laboratory Tests Test 07/21/17 19:24 07/22/17 05:53 Hemoglobin 10.0 8.4 Hematocrit 32.3 26.2 Potassium Level 3.7 3.5 White Blood Count 13.0 Red Blood Count 3.19 Mean Corpuscular Volume 82.4 Mean Corpuscular Hemoglobin 26.4 Mean Corpuscular Hemoglobin Concent 32.1 Red Cell Distribution Width 17.1 Platelet Count 496 Mean Platelet Volume 7.0 Neutrophils (%) (Auto) 73.0 Lymphocytes (%) (Auto) 11.6 Monocytes (%) (Auto) 12.9 Eosinophils (%) (Auto) 1.9 Basophils (%) (Auto) 0.6 Neutrophils # (Auto) 9.5 Lymphocytes # (Auto) 1.5 Monocytes # (Auto) 1.7 Eosinophils # (Auto) 0.3 Basophils # (Auto) 0.1 CBC Comment DIFF FINAL Differential Comment Blood Urea Nitrogen 12 Creatinine 0.69 Random Glucose 111 Calcium Level 8.5 Phosphorus Level 3.3 Magnesium Level 1.8 Sodium Level 137 Chloride Level 103 Carbon Dioxide Level 26.5 Anion Gap 8 Estimat Glomerular Filtration Rate 113 Vancomycin Level Trough 14.6 Date/Time Source Procedure Growth Status 07/18/17 13:52 Blood Peripheral Aerobic Blood Culture - Preliminary NO GROWTH IN 3 DAYS Resulted 07/18/17 13:52 Blood Peripheral Anaerobic Blood Culture - Preliminary NO GROWTH IN 3 DAYS Resulted 07/18/17 09:35 Urine Clean Catch Urine Culture - Final NO GROWTH IN 48 HOURS. Complete 07/14/17 02:44 Wound Toe Gram Stain - Final Complete 07/14/17 02:44 Wound Culture - Final S. 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
--- NOTE | 2017-07-22 12:40 | PD.POD ---
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 Patient underwent an arteriogram with possible intervention yesterday by Dr. Anand. There is improved blood flow to his foot. Past Med/Surg/Social History Past Medical History Endocrine: REPORTS HX OF: Diabetes mellitus, Graves disease Cardiovascular: REPORTS HX OF: Hypertension, Peripheral vascular dz Gastrointestinal: REPORTS HX OF: Other GI history (prior GI bleed, pt finished c. diff treatment on friday 05/25) Musculoskeletal: REPORTS HX OF: Other musculoskeletal hx (L. shoulder pain worsen after his arm was injured in latest hospitalization) Cancer/Hematology: REPORTS HX OF: Anemia Past Surgical History Gastrointestinal: DENIES HX OF: Colectomy, total Musculoskeletal: REPORTS HX OF: Other musculoskeletal srg (resection of the first metatarsal head and sesamoids) Social History Smoking Status: Unknown If Ever Smoked Review of Systems Notes No changes to his 14 point review of systems and previous visit Objective Vital Signs Vital Signs Date Time Temp Pulse Resp B/P (MAP) Pulse Ox O2 Delivery O2 Flow Rate FiO2 07/22/17 08:08 98 Nasal Cannula 2.00 07/22/17 08:00 69 07/22/17 08:00 98.8 69 23 156/72 (100) 98 07/22/17 06:00 61 07/22/17 04:00 64 07/22/17 04:00 99.3 64 24 136/64 (88) 96 07/22/17 03:47 20 07/22/17 02:00 68 07/22/17 00:00 74 07/22/17 00:00 99.8 74 21 157/73 (101) 97 07/21/17 23:00 79 07/21/17 22:00 72 07/21/17 21:44 20 07/21/17 21:00 71 07/21/17 20:00 99.3 74 16 158/71 (100) 98 07/21/17 20:00 74 07/21/17 19:55 98 Nasal Cannula 2.00 07/21/17 19:30 79 17 154/72 (99) 100 07/21/17 19:30 79 07/21/17 19:00 84 07/21/17 19:00 84 26 181/124 (143) 83 07/21/17 18:30 80 07/21/17 18:30 80 18 170/78 (108) 97 07/21/17 18:00 86 07/21/17 18:00 86 19 173/80 (111) 100 07/21/17 17:37 86 17 181/112 (135) 07/21/17 17:37 86 07/21/17 17:00 82 19 162/76 (104) 07/21/17 17:00 82 07/21/17 16:41 99.1 78 17 132/73 (92) 96 07/21/17 16:41 78 07/21/17 16:30 98.0 76 14 166/89 (114) 99 Nasal Cannula 2 07/21/17 16:15 74 14 168/72 (104) 100 Nasal Cannula 4 07/21/17 16:00 77 14 156/71 (99) 100 Nasal Cannula 4 07/21/17 15:49 98.0 77 14 162/76 (104) 100 Nasal Cannula 4 07/21/17 14:00 187/82 (117) 07/21/17 14:00 80 07/21/17 13:01 78 07/21/17 13:00 77 07/21/17 13:00 78 19 178/72 (107) 98 Coded Allergies: Sulfa (Sulfonamide Antibiotics) (Verified Allergy, Severe, Anaphylaxis, ) metronidazole (Verified Allergy, Severe, Fever, colitis, 07/07/17) While being treated for Cdiff. Doubt if true allergy. penicillin G (Verified Allergy, Severe, Anaphylaxis, 07/07/17) sulfamethoxazole (Verified Allergy, Severe, Anaphylaxis, 07/07/17) trimethoprim (Verified Allergy, Severe, Anaphylaxis, 07/07/17) erythromycin base (Verified Allergy, Intermediate, Rash, 07/07/17) aspirin (Verified Allergy, Unknown, 07/07/17) oxycodone (Verified Allergy, Unknown, 07/07/17) PT states oxycodone is fine, but percodan is too strong MRI PRECAUTION (Verified Adverse Reaction, Severe, BLADDER STIMULATOR, ) BRAIN ONLY ON RECEIVE ONLY COIL, P.O. 01/11/17, DML acetaminophen (Verified Adverse Reaction, Unknown, Psychosis, 07/07/17) meperidine (Verified Adverse Reaction, Unknown, Psychosis, 07/07/17) morphine (Verified Adverse Reaction, Unknown, Psychosis, 07/07/17) Uncoded Allergies: surgical tape (Allergy, Severe, 12/15/13) Medications and IVs Current Medications Etomidate (Amidate Inj) 40 mg STK-MED ONCE .ROUTE ; Start 07/14/17 at 00:32; Stop 07/14/17 at 00:33; Status DC Propofol 100 ml @ As Directed STK-MED ONCE .ROUTE ; Start 07/14/17 at 00:35; Stop 07/14/17 at 00:36; Status DC IV Flush (NS Flush) 2 ml UNSCH PRN IV FLUSH FLUSH AFTER USING IV ACCESS; Start 07/14/17 at 00:45; Stop 07/14/17 at 03:47; Status DC Vancomycin HCl 1450 mg/Sodium Chloride 514.5 ml @ 250 mls/hr ONCE ONCE IV Last administered on 07/14/17 02:36; Start 07/14/17 at 01:30; Stop 07/14/17 at 03:33; Status DC Aztreonam 2000 mg/ Sodium Chloride 100 ml @ 200 mls/hr ONCE ONCE IV Last administered on 07/14/17 02:08; Start 07/14/17 at 01:30; Stop 07/14/17 at 01:59 ; Status DC Racepinephrine (Racepinephrine 2.25% Neb) 0.5 ml ONCE ONCE NEB Last administered on 07/14/17 01:36; Start 07/14/17 at 01:30; Stop 07/14/17 at 01:31 ; Status DC Methylprednisolone Sodium Succinate (SoluMEDROL INJ) 60 mg ONCE ONCE IVP Last administered on 07/14/17 01:44; Start 07/14/17 at 01:30; Stop 07/14/17 at 01:31 ; Status DC Albuterol/ Ipratropium (Duoneb Neb) 1 ampule Q15M INH Last administered on 07/14 01:48; Start 07/14/17 at 01:30; Stop 07/14/17 at 02:01; Status DC Etomidate (Amidate Inj) 30 mg ONCE ONCE IV PUSH Last administered on 02:09; Start 07/14/17 at 02:00; Stop 07/14/17 at 02:02; Status DC Rocuronium Freedom (Zemuron Inj) 60 mg BOLUS ONCE IV Last administered on 07/14 02:08; Start 07/14/17 at 02:00; Stop 07/14/17 at 02:02; Status DC Propofol 100 ml @ 2.85 mls/hr Q35H6M PRN IV Ordered RASS Last administered on 01:37; Start 07/14/17 at 02:02; Stop 07/16/17 at 12:44; Status DC Midazolam HCl (Versed Inj) 5 mg STK-MED ONCE .ROUTE ; Start 07/14/17 at 02:30; Stop 07/14/17 at 02:31; Status DC Sodium Chloride 1,000 ml @ 999 mls/hr BOLUS ONCE IV Last administered on 07/14 03:32; Start 07/14/17 at 03:00; Stop 07/14/17 at 04:00; Status DC Midazolam HCl (Versed Inj) 5 mg ONCE ONCE IV PUSH Last administered on 03:06; Start 07/14/17 at 03:15; Stop 07/14/17 at 03:16; Status DC Midazolam HCl 100 ml @ 2 mls/hr Q50H PRN IV SEDATION Last administered on 03:39; Start 07/14/17 at 03:01; Stop 07/15/17 at 06:31; Status DC Midazolam HCl 100 ml @ As Directed STK-MED ONCE .ROUTE ; Start 07/14/17 at 03: 17; Stop 07/14/17 at 03:18; Status DC Aspirin (Aspirin Chew) 81 mg DAILY CHEW Last administered on 07/20/17 08:37; Start 07/14/17 at 09:00; Status Future Hold Atorvastatin Calcium (Lipitor) 40 mg HS PO Last administered on 07/21/17 20:43 ; Start 07/14/17 at 21:00 Citalopram Hydrobromide (CeleXA) 60 mg DAILY PO Last administered on 07/22/17 08:54; Start 07/14/17 at 09:00 Cyclobenzaprine HCl (Flexeril) 10 mg Q8HR PO Last administered on 07/15/17 04: 21; Start 07/14/17 at 06:00; Stop 07/15/17 at 06:31; Status DC Donepezil HCl (Aricept) 10 mg HS PO Last administered on 07/21/17 20:42; Start 07/14/17 at 21:00 Gabapentin (Neurontin) 100 mg TID PO ; Start 07/14/17 at 09:00; Stop 07/15/17 at 06:31; Status DC Lactobacillus Acidophilus (Lactinex) 1 tab TIDAC PO Last administered on 06:20; Start 07/14/17 at 08:00 Ascorbic Acid (Vitamin C) 1,000 mg DAILY PO Last administered on 07/22/17 08:54 ; Start 07/14/17 at 09:00 Ferrous Sulfate (Ferrous Sulfate) 325 mg BIDPC PO Last administered on 08:54; Start 07/14/17 at 09:00 Budesonide/ Formoterol Fumarate (Symbicort 80-4.5 Mcg Inh) 1 puff BID INH Last administered on 07/21/17 20:39; Start 07/14/17 at 09:00 Multivitamins/ Minerals Therapeutic (Theragran M Tab) 1 tab DAILY PO Last administered on 07/22/17 08:54; Start 07/14/17 at 09:00 Latanoprost (Xalatan 0.005% Opt Soln) 1 drop HS EACH EYE Last administered on 07/21/17 20:39; Start 07/14/17 at 21:00 Sodium Chloride (NS Flush) 2 ml UNSCH PRN .XX FLUSH AFTER USING IV ACCESS; Start 07/14/17 at 03:30 Sodium Chloride (NS Flush) 2 ml BID .XX Last administered on 07/22/17 08:59; Start 07/14/17 at 09:00 Acetaminophen (Tylenol) 650 mg Q6H PRN PO FEVER >101F; Start 07/14/17 at 03:30 ; Stop 07/14/17 at 03:47; Status DC Morphine Sulfate (Morphine Inj) 2 mg Q2H PRN IV PAIN SCALE 6 TO 10; Start 07/14 at 03:30; Stop 07/14/17 at 03:47; Status DC Famotidine (Pepcid Inj) 20 mg Q12HR IV PUSH Last administered on 07/14/17 20: 45; Start 07/14/17 at 09:00; Stop 07/15/17 at 06:31; Status DC Midazolam HCl (Versed Inj) 2 mg Q1H PRN IV SEDATION; Start 07/14/17 at 03:30; Stop 07/15/17 at 06:31; Status DC Artificial Tears (Tears Naturale Opth Soln) 1 drop TID EACH EYE Last administered on 07/20/17 17:14; Start 07/14/17 at 09:00 Ondansetron HCl (Zofran Inj) 4 mg Q6H PRN IV NAUSEA OR VOMITING; Start at 03:30 Albuterol/ Ipratropium (Duoneb Neb) 1 ampule Q6HR NEB INH Last administered on 07/17/17 07:39; Start 07/14/17 at 04:00; Stop 07/18/17 at 03:59; Status DC Albuterol/ Ipratropium (Duoneb Neb) 1 ampule Q2HR NEB PRN INH WHEEZING Last administered on 07/21/17 02:00; Start 07/14/17 at 03:30 Heparin Sodium (Porcine) (Heparin Inj) 5,000 units Q8H SQ Last administered on 07/22/17 06:20; Start 07/14/17 at 06:00 Miscellaneous Information 1 Q361D XX ; Start 07/14/17 at 03:30 Chlorhexidine Gluconate (Chlorhexidine 2% Cloth) Taper DAILY@04 TOP Last administered on 07/21/17 01:37; Start 07/14/17 at 04:00; Stop 07/10/18 at 03:59 Chlorhexidine Gluconate (Chlorhexidine 2% Cloth) 3 pack UNSCH PRN TOP HYGIENIC CARE; Start 07/14/17 at 03:30 Senna/Docusate Sodium (Medina-Colace) 1 tab BID PO Last administered on 07/18/17 08:46; Start 07/14/17 at 09:00 Magnesium Hydroxide (Milk Of Magnesia Liq) 30 ml Q12H PRN PO MILD - MODERATE CONSTIPATION; Start 07/14/17 at 03:30 Sennosides (Senokot) 17.2 mg Q12H PRN PO MODERATE - SEVERE CONSTIPATION; Start 07/14/17 at 03:30 Bisacodyl (Dulcolax Supp) 10 mg DAILY PRN RECTAL SEVERE CONSITIPATION; Start at 03:30 Lactulose (Lactulose Liq) 30 ml DAILY PRN PO SEVERE CONSITIPATION; Start at 03:30 Pharmacy Profile Note 0 ml @ 0 mls/hr UNSCH OTHER ; Start 07/14/17 at 03:30 Vancomycin HCl 1000 mg/Sodium Chloride 250 ml @ 250 mls/hr ONCE ONCE IV ; Start 07/14/17 at 03:30; Stop 07/14/17 at 04:29; Status UNV Hydromorphone HCl (Dilaudid Pf Inj) 0.5 mg Q4H PRN IV PAIN 1-10 Last administered on 07/16/17 10:32; Start 07/14/17 at 04:00; Stop 07/16/17 at 12:44 ; Status DC Fentanyl Citrate 250 ml @ 5 mls/hr Q24H PRN IV SEDATION Last administered on 04:29; Start 07/14/17 at 03:56; Stop 07/16/17 at 12:44; Status DC Hydralazine HCl (Apresoline Inj) 20 mg Q4H PRN IV PUSH SBP>160, DBP>90 Last administered on 07/21/17 04:28; Start 07/14/17 at 04:00 Pharmacy Profile Note 0 ml @ 0 mls/hr UNSCH OTHER ; Start 07/14/17 at 05:30; Stop 07/14/17 at 05:30; Status DC Vancomycin HCl 1000 mg/Sodium Chloride 250 ml @ 250 mls/hr ONCE ONCE IV ; Start 07/14/17 at 05:30; Stop 07/14/17 at 06:29; Status UNV Dextrose (D50w (Vial) Inj) 50 ml UNSCH PRN IV HYPOGLYCEMIA-SEE COMMENTS; Start 07/14/17 at 05:30; Stop 07/14/17 at 10:45; Status DC Glucagon (Glucagon Inj) 1 mg UNSCH PRN OTHER HYPOGLYCEMIA-SEE COMMENTS; Start 07/14/17 at 05:30; Stop 07/14/17 at 10:45; Status DC Insulin Aspart (NovoLOG SUPPLEMENTAL SCALE) 1 ACHS SLIDING SCALE SQ Last administered on 07/14/17 06:42; Start 07/14/17 at 07:00; Stop 07/14/17 at 10:10 ; Status DC Vancomycin HCl 1500 mg/Sodium Chloride 515 ml @ 250 mls/hr Q12H IV Last administered on 07/16/17 06:01; Start 07/14/17 at 14:00; Stop 07/16/17 at 08:58 ; Status DC Miscellaneous Information SPECIFIC LAB TO BE DRAWN:VANCOMYCIN TROUGH DATE TO... ONCE ONCE .XX ; Start 07/16/17 at 01:45; Stop 07/16/17 at 01:46; Status DC Sodium Chloride 1,000 ml @ 84 mls/hr [id number] IV Last administered on 00:19; Start 07/14/17 at 11:00; Stop 07/16/17 at 12:44; Status DC Dextrose (D50w (Vial) Inj) 50 ml UNSCH PRN IV HYPOGLYCEMIA-SEE COMMENTS; Start 07/14/17 at 10:15; Stop 07/17/17 at 09:56; Status DC Glucagon (Glucagon Inj) 1 mg UNSCH PRN OTHER HYPOGLYCEMIA-SEE COMMENTS; Start 07/14/17 at 10:15; Stop 07/17/17 at 09:56; Status DC Insulin Human Regular (NovoLIN R SUPPLEMENTAL SCALE) 1 Q4H SQ Last administered on 07/15/17 06:48; Start 07/14/17 at 11:00; Stop 07/16/17 at 17:20 ; Status DC Potassium Chloride 100 ml @ 50 mls/hr Q2H PRN IV For Potassium 2.8 - 3.2 mEq/ L Last administered on 07/18/17 16:54; Start 07/14/17 at 10:15 Potassium Chloride 100 ml @ 50 mls/hr Q2H PRN IV For Potassium 2.8 - 3.2 mEq/L ; Start 07/14/17 at 10:15 Potassium Bicarb/ Potassium Chloride (K-Lyte Cl Eff) 50 meq UNSCH PRN PO For Potassium 3.3 - 3.5 mEq/L; Start 07/14/17 at 10:15 Potassium Chloride 100 ml @ 25 mls/hr UNSCH PRN IV For Potassium 3.3 - 3.5 mEq /L Last administered on 07/20/17 17:13; Start 07/14/17 at 10:15 Potassium Chloride 100 ml @ 50 mls/hr Q2H PRN IV For Potassium 3.3 - 3.5 mEq/L ; Start 07/14/17 at 10:15 Magnesium Sulfate 4 gm/Sodium Chloride 100 ml @ 50 mls/hr UNSCH PRN IV For Magnesium 0.9 - 1.1 mg/dL; Start 07/14/17 at 10:15 Magnesium Oxide (Mag-Ox) 800 mg UNSCH PRN PO For Magnesium 1.2 - 1.6 mg/dL; Start 07/14/17 at 10:15 Magnesium Sulfate 2 gm/Sodium Chloride 100 ml @ 50 mls/hr UNSCH PRN IV For Magnesium 1.2 - 1.6 mg/dL; Start 07/14/17 at 10:15 Potassium Phosphate (K-Phos) 2,000 mg Q4H PRN PO For Phosphorus < 2.5 mg/dL; Start 07/14/17 at 10:15 Sodium Phosphate 30 mmol/Sodium Chloride 250 ml @ 42 mls/hr UNSCH PRN IV For Phosphorus < 2.5 mg/dL; Start 07/14/17 at 10:15 Potassium Phosphate (K-Phos) 2,000 mg UNSCH PRN PO/TUBE SEE LABEL COMMENTS; Start 07/14/17 at 10:15 Potassium Phosphate 30 mmol/ Sodium Chloride 260 ml @ 42 mls/hr UNSCH PRN IV SEE LABEL COMMENTS; Start 07/14/17 at 10:15 Cyclobenzaprine HCl (Flexeril) 10 mg Q8H PRN PO muscle spasms Last administered on 07/22/17 08:54; Start 07/15/17 at 06:15 Famotidine (Pepcid Liq) 20 mg BID NG Last administered on 07/21/17 20:40; Start 07/15/17 at 09:00 Hydromorphone HCl (Dilaudid Pf Inj) 0.5 mg ONCE ONCE IV Last administered on 15:00; Start 07/15/17 at 15:00; Stop 07/15/17 at 15:01; Status DC Hydromorphone HCl (Dilaudid Pf Inj) 0.5 mg NOW ONCE IV PUSH ; Start 07/15/17 at 15:15; Stop 07/15/17 at 15:16; Status DC Furosemide (Lasix Inj) 40 mg STK-MED ONCE .ROUTE Last administered on 07:12; Start 07/16/17 at 07:12; Stop 07/16/17 at 07:13; Status DC Diltiazem HCl (Cardizem Inj) 25 mg STK-MED ONCE .ROUTE Last administered on 07:21; Start 07/16/17 at 07:21; Stop 07/16/17 at 07:22; Status DC Magnesium Sulfate/ Dextrose 100 ml @ 100 mls/hr Q1H IV Last administered on 08:45; Start 07/16/17 at 07:45; Stop 07/16/17 at 09:44; Status DC Potassium Chloride 100 ml @ 50 mls/hr Q2H IV Last administered on 07/16/17 09 :45; Start 07/16/17 at 07:45; Stop 07/16/17 at 11:44; Status DC Vancomycin HCl 1500 mg/Sodium Chloride 515 ml @ 250 mls/hr Q18H IV Last administered on 07/22/17 06:20; Start 07/17/17 at 00:00 Miscellaneous Information SPECIFIC LAB TO BE DRAWN:VANCO TROUGH DATE... ONCE ONCE .XX Last administered on 07/18/17 11:45; Start 07/18/17 at 11:45; Stop 07/18 at 11:46; Status DC Potassium Chloride (KCl) 40 meq NOW ONCE PO Last administered on 07/16/17 10: 32; Start 07/16/17 at 11:00; Stop 07/16/17 at 11:01; Status DC Hydromorphone HCl (Dilaudid Pf Inj) 0.5 mg Q2H PRN IV PAIN 6-10 or not taking po Last administered on 07/19/17 07:32; Start 07/16/17 at 14:00; Stop 07/19/17 at 07:52; Status DC Oxycodone HCl (Roxicodone) 5 mg Q4H PRN PO pain 1-5 Last administered on 10:00; Start 07/16/17 at 14:00 Diltiazem HCl (Cardizem) 60 mg Q6H PO Last administered on 07/22/17 08:54; Start 07/17/17 at 10:00 Dextrose (D50w (Vial) Inj) 50 ml UNSCH PRN IV HYPOGLYCEMIA-SEE COMMENTS; Start 07/17/17 at 09:00 Glucagon (Glucagon Inj) 1 mg UNSCH PRN OTHER HYPOGLYCEMIA-SEE COMMENTS; Start 07/17/17 at 09:00 Insulin Human Regular (NovoLIN R SUPPLEMENTAL SCALE) 1 Q6H SQ ; Start 07/17/17 at 10:00 Aztreonam 2000 mg/ Sodium Chloride 100 ml @ 200 mls/hr Q8H IV ; Start 07/17/17 at 10:00; Stop 07/17/17 at 10:02; Status DC Vancomycin HCl (VANCOMYCIN for oral use only) 125 mg QID PO Last administered on 07/22/17 08:54; Start 07/17/17 at 13:00; Stop 07/31/17 at 12:59 Hydromorphone HCl (Dilaudid Pf Inj) 0.5 mg ONCE ONCE IV PUSH Last administered on 07/17/17 14:40; Start 07/17/17 at 14:30; Stop 07/17/17 at 14:33; Status DC Hydralazine HCl (Apresoline) 50 mg Q8HR PO Last administered on 07/22/17 06:20 ; Start 07/18/17 at 09:30 Hydromorphone HCl (Dilaudid Pf Inj) 1 mg Q2H PRN IV PAIN 6-10 or not taking po Last administered on 07/22/17 11:26; Start 07/19/17 at 09:00 Bumetanide (Bumex Inj) 1 mg ONCE ONCE IV PUSH Last administered on 07/20/17 08 :37; Start 07/20/17 at 08:00; Stop 07/20/17 at 08:01; Status DC Potassium Bicarb/ Potassium Chloride (K-Lyte Cl Eff) 50 meq ONCE ONCE PO Last administered on 07/21/17 09:35; Start 07/21/17 at 09:00; Stop 07/21/17 at 09: 01; Status DC Potassium Chloride 100 ml @ 100 mls/hr Q1H IV Last administered on 07/21/17 20 :41; Start 07/21/17 at 09:00; Stop 07/21/17 at 11:59; Status DC Miscellaneous Information SPECIFIC LAB TO BE DRAWN:VANCOMYCIN TROUGH DATE TO... ONCE ONCE .XX Last administered on 07/22/17 05:53; Start 07/22/17 at 05:45; Stop 07/22/17 at 05:46; Status DC Heparin Sodium (Porcine) (Heparin Inj) 10,000 units STK-MED ONCE .ROUTE Last administered on 07/21/17 13:44; Start 07/21/17 at 13:44; Stop 07/21/17 at 13:45; Status DC Vancomycin HCl (Vancomycin Inj) 1,000 mg STK-MED ONCE .ROUTE Last administered on 07/21/17 14:43; Start 07/21/17 at 14:10; Stop 07/21/17 at 14:11; Status DC Iohexol (Omnipaque 350 Inj) 50 ml ONCE ONCE .XX ; Start 07/21/17 at 14:44; Stop 07/21/17 at 14:45; Status DC Fentanyl Citrate (fentaNYL INJ) 100 mcg STK-MED ONCE .ROUTE ; Start 07/21/17 at 15:57; Stop 07/21/17 at 15:58; Status DC Miscellaneous Information ALL NURSING DEPARTME... UNSCH PRN .XX SEE LABEL COMMENTS; Start 07/21/17 at 15:49; Stop 07/22/17 at 15:48 Miscellaneous Information ALL NURSING DEPARTME... UNSCH PRN .XX SEE LABEL COMMENTS; Start 07/21/17 at 15:49; Stop 07/22/17 at 15:48; Status Cancel Other Results Laboratory Tests Test 07/20/17 14:38 07/21/17 03:25 07/21/17 19:24 07/22/17 05:53 Hemoglobin 7.1 GM/DL 6.8 GM/DL 10.0 GM/DL 8.4 GM/DL Hematocrit 22.6 % 21.5 % 32.3 % 26.2 % White Blood Count 14.7 TH/MM3 13.0 TH/MM3 Red Blood Count 2.67 MIL/MM3 3.19 MIL/MM3 Mean Corpuscular Volume 80.6 FL 82.4 FL Mean Corpuscular Hemoglobin 25.4 PG 26.4 PG Mean Corpuscular Hemoglobin Concent 31.5 % 32.1 % Red Cell Distribution Width 18.1 % 17.1 % Platelet Count 482 TH/MM3 496 TH/MM3 Mean Platelet Volume 7.0 FL 7.0 FL Neutrophils (%) (Auto) 73.0 % Lymphocytes (%) (Auto) 11.6 % Monocytes (%) (Auto) 12.9 % Eosinophils (%) (Auto) 1.9 % Basophils (%) (Auto) 0.6 % Neutrophils # (Auto) 9.5 TH/MM3 Lymphocytes # (Auto) 1.5 TH/MM3 Monocytes # (Auto) 1.7 TH/MM3 Eosinophils # (Auto) 0.3 TH/MM3 Basophils # (Auto) 0.1 TH/MM3 CBC Comment DIFF FINAL Differential Comment Laboratory Tests Test 07/20/17 14:38 07/21/17 03:25 07/21/17 19:24 07/22/17 05:53 Potassium Level 3.4 MEQ/L 3.1 MEQ/L 3.7 MEQ/L 3.5 MEQ/L Blood Urea Nitrogen 12 MG/DL 12 MG/DL Creatinine 0.71 MG/DL 0.69 MG/DL Random Glucose 100 MG/DL 111 MG/DL Calcium Level 8.3 MG/DL 8.5 MG/DL Sodium Level 137 MEQ/L 137 MEQ/L Chloride Level 101 MEQ/L 103 MEQ/L Carbon Dioxide Level 28.9 MEQ/L 26.5 MEQ/L Anion Gap 7 MEQ/L 8 MEQ/L Estimat Glomerular Filtration Rate 109 ML/MIN 113 ML/MIN Phosphorus Level 2.7 MG/DL 3.3 MG/DL Magnesium Level 1.7 MG/DL 1.8 MG/DL Exam-Podiatry Constitutional General appearance: comfortable Nutritional status: normal Orientation: alert and oriented x3 Dermatological Exam Skin Temp - Right: Within Normal Limits Skin Texture - Right: Within Normal Limits Skin Elasticity - Right: Within Normal Limits Skin Tugor - Right: Within Normal Limits Hair Growth - Right: Within Normal Limits Pigmentation - Right: Within Normal Limits Skin Temp - Left: Within Normal Limits Skin Texture - Left: Within Normal Limits Skin Elasticity - Left: Within Normal Limits Skin Tugor - Left: Within Normal Limits Hair Growth - Left: Within Normal Limits Pigmentation - Left: Within Normal Limits Vascular/Lymphatic Exam R Dorsails Pedis: Doppler L Dorsails Pedis: Doppler R Posterior Tibial: Doppler L Posterior Tibial: Doppler Present on left: Cyanosis (of the hallux) Neurologic Exam Details No changes in his neurological exam Present on right: Tingling, Paraesthesia Present on left: Tingling, Paraesthesia Muscle Strength Dorsiflexion (Right): Normal Plantarflexion (Right): Normal Inversion (Right): Normal Eversion (Right): Normal Digital (Right): Normal Dorsiflexion (Left): Normal Plantarflexion (Left): Normal Inversion (Left): Normal Eversion (Left): Normal Digital (Left): Normal Foot Range of Motion Dorsiflexion (Right): Normal Plantarflexion (Right): Normal Inversion (Right): Normal Eversion (Right): Normal Digital (Right): Normal Dorsiflexion (Left): Normal Plantarflexion (Left): Normal Inversion (Left): Normal Eversion (Left): Normal Digital (Left): Normal Assessment & Plan Diagnosis: (1) 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 Patient was put on the schedule for this Thursday at 10 AM for amputation of the left hallux. Negative pressure wound VAC on standby. Orders written. We'll evaluate the patient again tomorrow. 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
--- NOTE | 2017-07-22 16:50 | HHI.CCPN ---
Subjective Remarks/Hospital Course Hospital Course: 71-year-old gentleman with past medical history of hypertension, COPD, hyperlipidemia, recently treated for left foot osteomyelitis, presents today with altered mental status. As per , he had taken some flexeril and 1 oxycodone this morning. However, he went to sleep at around 2:30pm and that was the last normal as per . At about 4pm, she noticed he was having difficulty breathing and also dosing off but did not decide to come to the ED until hours later. Pt had recent admission 07/02/17 for osteomyelitis of left metatarsal and had debridement and biopsy and culture by Dr. Arvizu on . Culture grew MRSA and ID recommended vancomycin however per chart documentation patient refused. In the emergency department he was too lethargic to protect his airways and was intubated by ED attending. Subjective: 07/15: remains encephalopathic without significant improvements. wbc stable. MRSA in wound culture. 07/16: extubated yesterday, did well overnight on 2L nc. This morning, became acutely tachycardic which appears to be afib RVR and then became dyspneic and hypoxic. physical exam pertinent for bilateral crackles throughout all lung leonard, likely acute flash pulmonary edema secondary to afib secondary to volume overload. lasix 80mg iv x 1 given, patient placed on bipap, iv diltiazem given. 07/17 Patient is lying in bed in no acute resp distress, on room air oxygen when seen. Hypertensive. 07/18 No events overnight. Patient is lying in bed in NAD. T;100.1 last night 07/19 Patient is awake, alert lying in bed in NAD. T:99.9 last night. 07/20 No events overnight. Afebrile, WBC is trending down. For Angiogram and revasc tomorrow per vascular surgery. 07/21 No events overnight. Patient is for OR this afternoon. Hgb 6.8 this morning 2units PRBC ordered. T:99.9 07/22 no acute events overnight. Patient alert and oriented ,normal mentation. Hemoglobin stable. Objective Vital Signs Date Time Temp Pulse Resp B/P (MAP) Pulse Ox O2 Delivery O2 Flow Rate FiO2 07/22/17 14:00 62 07/22/17 12:00 99.1 24 145/70 (95) 97 07/22/17 08:08 Nasal Cannula 2.00 07/21/17 10:49 21 Intake and Output 07/22/17 07/22/17 07/23/17 08:00 16:00 00:00 Intake Total 721 ml 515 ml Output Total 750 ml Balance -29 ml 515 ml Result Diagram: 07/22/17 0553 07/22/17 0553 Imaging rad Last Impressions Lower Extremity Ultrasound 07/18/17 0000 Signed Impressions: Service Date/Time: Tuesday, July 18, 2017 10:04 - CONCLUSION: Normal examination. Bautista Hoff MD Chest X-Ray 07/17/17 0000 Signed Impressions: Service Date/Time: Monday, July 17, 2017 09:34 - CONCLUSION: Compensated cardiomegaly with minimal bibasilar clinical changes. Jayme Anderson MD FACR Head CT 07/14/17 0043 Signed Impressions: Service Date/Time: Friday, July 14, 2017 02:09 - CONCLUSION: No acute intracranial abnormality is identified. Jose Miller MD Foot X-Ray 07/14/17 0000 Signed Impressions: Service Date/Time: Friday, July 14, 2017 01:44 - CONCLUSION: 1. Soft tissue air overlying the base of the first digit may be related to the laceration if the laceration is in this location. No radiopaque foreign body is identified. 2. Absence of the distal half of the first metatarsal likely related to prior resection. Jose Miller MD Ankle X-Ray 07/14/17 0000 Signed Impressions: Service Date/Time: Friday, July 14, 2017 01:48 - CONCLUSION: No acute left ankle abnormality is identified. Jose Miller MD Objective Remarks GENERAL: Patient is lying in bed in no resp distress SKIN: Warm and dry. HEAD: Normocephalic. EYES: No scleral icterus. No injection or drainage. NECK: Supple, trachea midline. No JVD or lymphadenopathy. CARDIOVASCULAR: Regular rate and rhythm without murmurs, gallops, or rubs. RESPIRATORY: Breath sounds equal bilaterally. No accessory muscle use. GASTROINTESTINAL: Abdomen soft, non-tender, nondistended. MUSCULOSKELETAL: Left foot: +Left 1st MTP wound 3cm by 2cm dorsum of 1st MTP is foul smelling with surrounding erythema. +Purulent discharge. Distal phalanx black in color. DP 1 BACK: Nontender without obvious deformity. No CVA tenderness. Neuro: Awake and alert. GCS 15, OOB in chair A/P Assessment and Plan Neuro: Awake and alert, CT brain 07/14: No acute findings. On Aricept for Dementia Resp Insuff- resolved Oxygen PRN keep sat >92% Bronchodilators, CXR 07/17: No obvious infiltrates or effusions CV: PAF Hypertension Continue Cardizem 60mg Q6, Hydralazine 50mg Q8, on Hydralazine PRN. Monitor HR and BP keep MAP>65mmHg : Monitor renal function Electrolytes replacement per protocol. GI: Heart healthy diet Bowel regimen ID: Diabetic ulcer History of osteomyelitis -MRSA Ischemic foot UTI( Pseudomonas) Hx C-diff MRSA wound -Continue abx per ID- Vancomycin IV and PO, Lactinex, Podiatry is following. Monitor for signs of infections ( Fever, WBC) WBC is trending down -Follow up on BC and urine cx from 07/18: NGTD - Vascular surgery is following- Dr. Anand Heme: Monitor CBC, on FESO4 325mg BID S/P transfusion 2 units PRBC ( Hgb 6.8) Endo: Diabetes -On SSI with accuchecks Q6 DVT GI prophylaxis - Teds SCDs - Subcutaneous heparin [facility] to [facility] Physician Olga Thibodeaux MD Jul 22, 2017 16:50
[2017-07-22] MEDS: ATORVASTATIN 40 MG TAB PO SCH (21:02)
[2017-07-22] MEDS: DONEPEZIL HCL 5 MG TAB PO SCH (21:02)
[2017-07-22] MEDS: LATANOPROST 0.005% OPHT SOLN 2.5 ML BTL EACH EYE SCH (21:04)
[2017-07-23] VITALS (8 sets, daily range): BP systolic 149–182; BP diastolic 69–81; PULSE 47–82; RESP 16–20; TEMP 98–99.1; O2SAT 92–97
[2017-07-23] MEDS: VANCOMYCIN INJ 1,500 MG in SODIUM CHLORID 0.9% 500 ML INJ 500 ML IV SCH ×2 (00:06→18:58)
[2017-07-23] MEDS: CHLORHEXIDINE GLUCONATE 2 % 1 PACK (2 CLOTHS) TOP SCH (04:00)
[2017-07-23] MEDS: INSULIN NovoLIN REGULAR SUPPLEMENTAL SCALE SQ SCH ×4 (04:00→21:15)
[2017-07-23] MEDS: hydrALAZINE HCL 50 MG TAB PO SCH ×3 (04:32→21:16)
[2017-07-23] MEDS: HYDROmorphone HCL PF 1 MG/ML VIAL IV PRN ×4 (04:32→21:19)
[2017-07-23] MEDS: DILTIAZEM HCL 60 MG TAB PO SCH ×4 (04:32→21:16)
[2017-07-23] MEDS: HEPARIN SODIUM - SQ 10,000 UNITS/ML VIAL SQ SCH ×3 (05:19→21:18)
[2017-07-23] MEDS: CITALOPRAM HYDROBROMIDE 20 MG TAB PO SCH (08:02)
[2017-07-23] MEDS: FERROUS SULFATE 325 MG (65 MG ELEMENTAL IRON) TAB PO SCH ×2 (08:02→18:54)
[2017-07-23] MEDS: MULTIVITAMINS/MINERALS THERAPEUTIC TAB PO SCH (08:03)
[2017-07-23] MEDS: ASCORBIC ACID 500 MG TAB PO SCH (08:03)
[2017-07-23] MEDS: DOCUSATE SODIUM 50 MG/SENNA 8.6 MG TAB PO SCH ×2 (08:04→21:00)
[2017-07-23] MEDS: ARTIFICIAL TEARS OPTH SOLN 15 ML BTL EACH EYE SCH ×3 (08:04→19:05)
[2017-07-23] MEDS: FAMOTIDINE 40 MG/5 ML LIQ 50 ML BTL NG SCH ×2 (08:04→21:17)
[2017-07-23] MEDS: VANCOMYCIN 500 MG VIAL (FOR ORAL USE ONLY) PO SCH ×4 (08:05→21:16)
[2017-07-23] MEDS: BUDESONIDE-FORMOTEROL 80/4.5 MCG INHALER INH SCH ×2 (08:08→21:18)
[2017-07-23] MEDS: LACTOBACILLUS ACIDOPHILUS TAB PO SCH ×3 (09:51→15:42)
[2017-07-23] MEDS: CYCLOBENZAPRINE HCL 10 MG TAB PO PRN (09:51)
[2017-07-23 09:58] LABS: HEMATOCRIT 28.1 % (39.0-51.0); MEAN CELL VOLUME 82.5 FL (80.0-100.0); MEAN CORPUSCULAR HEMOGLOBIN 26.6 PG (27.0-34.0); MEAN CORPUSCULAR HGB CONC 32.2 % (32.0-36.0); PLATELET COUNT 524 TH/MM3 (150-450); RED CELL DISTRIBUTION WIDTH 17.6 % (11.6-17.2); REVIEW FLAG FINAL; WHITE BLOOD COUNT 11.1 TH/MM3 (4.0-11.0)
[2017-07-23 10:27] LABS: BICARBONATE 25.6 MEQ/L (21.0-32.0); MAGNESIUM 1.7 MG/DL (1.5-2.5); POTASSIUM 3.2 MEQ/L (3.5-5.1)
--- NOTE | 2017-07-23 12:56 | PD.POD ---
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 Patient underwent an arteriogram with intervention by Dr. Anand. There is improved blood flow to his foot. Past Med/Surg/Social History Past Medical History Endocrine: REPORTS HX OF: Diabetes mellitus, Graves disease Cardiovascular: REPORTS HX OF: Hypertension, Peripheral vascular dz Gastrointestinal: REPORTS HX OF: Other GI history (prior GI bleed, pt finished c. diff treatment on friday 05/25) Musculoskeletal: REPORTS HX OF: Other musculoskeletal hx (L. shoulder pain worsen after his arm was injured in latest hospitalization) Cancer/Hematology: REPORTS HX OF: Anemia Past Surgical History Gastrointestinal: DENIES HX OF: Colectomy, total Musculoskeletal: REPORTS HX OF: Other musculoskeletal srg (resection of the first metatarsal head and sesamoids) Social History Smoking Status: Unknown If Ever Smoked Review of Systems Notes Changes in his 14 point review of systems exam since he was last seen Objective Vital Signs Vital Signs Date Time Temp Pulse Resp B/P (MAP) Pulse Ox O2 Delivery O2 Flow Rate FiO2 07/23/17 12:00 98.0 70 20 170/72 (104) 93 07/23/17 10:12 93 21 07/23/17 08:00 98.0 72 20 173/79 (110) 93 07/23/17 04:20 98.5 82 16 176/74 (108) 94 07/23/17 00:14 98.4 47 16 149/69 (95) 92 07/22/17 19:00 98.7 70 18 163/73 (103) 93 07/22/17 18:00 76 07/22/17 16:00 62 07/22/17 16:00 98.9 62 19 152/67 (95) 96 07/22/17 14:00 62 Coded Allergies: Sulfa (Sulfonamide Antibiotics) (Verified Allergy, Severe, Anaphylaxis, ) metronidazole (Verified Allergy, Severe, Fever, colitis, 07/07/17) While being treated for Cdiff. Doubt if true allergy. penicillin G (Verified Allergy, Severe, Anaphylaxis, 07/07/17) sulfamethoxazole (Verified Allergy, Severe, Anaphylaxis, 07/07/17) trimethoprim (Verified Allergy, Severe, Anaphylaxis, 07/07/17) erythromycin base (Verified Allergy, Intermediate, Rash, 07/07/17) aspirin (Verified Allergy, Unknown, 07/07/17) oxycodone (Verified Allergy, Unknown, 07/07/17) PT states oxycodone is fine, but percodan is too strong MRI PRECAUTION (Verified Adverse Reaction, Severe, BLADDER STIMULATOR, ) BRAIN ONLY ON RECEIVE ONLY COIL, P.O. 01/11/17, DML acetaminophen (Verified Adverse Reaction, Unknown, Psychosis, 07/07/17) meperidine (Verified Adverse Reaction, Unknown, Psychosis, 07/07/17) morphine (Verified Adverse Reaction, Unknown, Psychosis, 07/07/17) Uncoded Allergies: surgical tape (Allergy, Severe, 12/15/13) Medications and IVs Current Medications Etomidate (Amidate Inj) 40 mg STK-MED ONCE .ROUTE ; Start 07/14/17 at 00:32; Stop 07/14/17 at 00:33; Status DC Propofol 100 ml @ As Directed STK-MED ONCE .ROUTE ; Start 07/14/17 at 00:35; Stop 07/14/17 at 00:36; Status DC IV Flush (NS Flush) 2 ml UNSCH PRN IV FLUSH FLUSH AFTER USING IV ACCESS; Start 07/14/17 at 00:45; Stop 07/14/17 at 03:47; Status DC Vancomycin HCl 1450 mg/Sodium Chloride 514.5 ml @ 250 mls/hr ONCE ONCE IV Last administered on 07/14/17 02:36; Start 07/14/17 at 01:30; Stop 07/14/17 at 03:33; Status DC Aztreonam 2000 mg/ Sodium Chloride 100 ml @ 200 mls/hr ONCE ONCE IV Last administered on 07/14/17 02:08; Start 07/14/17 at 01:30; Stop 07/14/17 at 01:59 ; Status DC Racepinephrine (Racepinephrine 2.25% Neb) 0.5 ml ONCE ONCE NEB Last administered on 07/14/17 01:36; Start 07/14/17 at 01:30; Stop 07/14/17 at 01:31 ; Status DC Methylprednisolone Sodium Succinate (SoluMEDROL INJ) 60 mg ONCE ONCE IVP Last administered on 07/14/17 01:44; Start 07/14/17 at 01:30; Stop 07/14/17 at 01:31 ; Status DC Albuterol/ Ipratropium (Duoneb Neb) 1 ampule Q15M INH Last administered on 07/14 01:48; Start 07/14/17 at 01:30; Stop 07/14/17 at 02:01; Status DC Etomidate (Amidate Inj) 30 mg ONCE ONCE IV PUSH Last administered on 02:09; Start 07/14/17 at 02:00; Stop 07/14/17 at 02:02; Status DC Rocuronium Rienzi (Zemuron Inj) 60 mg BOLUS ONCE IV Last administered on 07/14 02:08; Start 07/14/17 at 02:00; Stop 07/14/17 at 02:02; Status DC Propofol 100 ml @ 2.85 mls/hr Q35H6M PRN IV Ordered RASS Last administered on 01:37; Start 07/14/17 at 02:02; Stop 07/16/17 at 12:44; Status DC Midazolam HCl (Versed Inj) 5 mg STK-MED ONCE .ROUTE ; Start 07/14/17 at 02:30; Stop 07/14/17 at 02:31; Status DC Sodium Chloride 1,000 ml @ 999 mls/hr BOLUS ONCE IV Last administered on 07/14 03:32; Start 07/14/17 at 03:00; Stop 07/14/17 at 04:00; Status DC Midazolam HCl (Versed Inj) 5 mg ONCE ONCE IV PUSH Last administered on 03:06; Start 07/14/17 at 03:15; Stop 07/14/17 at 03:16; Status DC Midazolam HCl 100 ml @ 2 mls/hr Q50H PRN IV SEDATION Last administered on 03:39; Start 07/14/17 at 03:01; Stop 07/15/17 at 06:31; Status DC Midazolam HCl 100 ml @ As Directed STK-MED ONCE .ROUTE ; Start 07/14/17 at 03: 17; Stop 07/14/17 at 03:18; Status DC Aspirin (Aspirin Chew) 81 mg DAILY CHEW Last administered on 07/20/17 08:37; Start 07/14/17 at 09:00; Status Future Hold Atorvastatin Calcium (Lipitor) 40 mg HS PO Last administered on 07/22/17 21:02 ; Start 07/14/17 at 21:00 Citalopram Hydrobromide (CeleXA) 60 mg DAILY PO Last administered on 07/23/17 08:02; Start 07/14/17 at 09:00 Cyclobenzaprine HCl (Flexeril) 10 mg Q8HR PO Last administered on 07/15/17 04: 21; Start 07/14/17 at 06:00; Stop 07/15/17 at 06:31; Status DC Donepezil HCl (Aricept) 10 mg HS PO Last administered on 07/22/17 21:02; Start 07/14/17 at 21:00 Gabapentin (Neurontin) 100 mg TID PO ; Start 07/14/17 at 09:00; Stop 07/15/17 at 06:31; Status DC Lactobacillus Acidophilus (Lactinex) 1 tab TIDAC PO Last administered on 09:51; Start 07/14/17 at 08:00 Ascorbic Acid (Vitamin C) 1,000 mg DAILY PO Last administered on 07/23/17 08:03 ; Start 07/14/17 at 09:00 Ferrous Sulfate (Ferrous Sulfate) 325 mg BIDPC PO Last administered on 08:02; Start 07/14/17 at 09:00 Budesonide/ Formoterol Fumarate (Symbicort 80-4.5 Mcg Inh) 1 puff BID INH Last administered on 07/21/17 20:39; Start 07/14/17 at 09:00 Multivitamins/ Minerals Therapeutic (Theragran M Tab) 1 tab DAILY PO Last administered on 07/23/17 08:03; Start 07/14/17 at 09:00 Latanoprost (Xalatan 0.005% Opth Soln) 1 drop HS EACH EYE Last administered on 07/22/17 21:04; Start 07/14/17 at 21:00 Sodium Chloride (NS Flush) 2 ml UNSCH PRN .XX FLUSH AFTER USING IV ACCESS; Start 07/14/17 at 03:30 Sodium Chloride (NS Flush) 2 ml BID .XX Last administered on 07/22/17 21:00; Start 07/14/17 at 09:00 Acetaminophen (Tylenol) 650 mg Q6H PRN PO FEVER >101F; Start 07/14/17 at 03:30 ; Stop 07/14/17 at 03:47; Status DC Morphine Sulfate (Morphine Inj) 2 mg Q2H PRN IV PAIN SCALE 6 TO 10; Start 07/14 at 03:30; Stop 07/14/17 at 03:47; Status DC Famotidine (Pepcid Inj) 20 mg Q12HR IV PUSH Last administered on 07/14/17 20: 45; Start 07/14/17 at 09:00; Stop 07/15/17 at 06:31; Status DC Midazolam HCl (Versed Inj) 2 mg Q1H PRN IV SEDATION; Start 07/14/17 at 03:30; Stop 07/15/17 at 06:31; Status DC Artificial Tears (Tears Naturale Opth Soln) 1 drop TID EACH EYE Last administered on 07/23/17 08:04; Start 07/14/17 at 09:00 Ondansetron HCl (Zofran Inj) 4 mg Q6H PRN IV NAUSEA OR VOMITING; Start at 03:30 Albuterol/ Ipratropium (Duoneb Neb) 1 ampule Q6HR NEB INH Last administered on 07/17/17 07:39; Start 07/14/17 at 04:00; Stop 07/18/17 at 03:59; Status DC Albuterol/ Ipratropium (Duoneb Neb) 1 ampule Q2HR NEB PRN INH WHEEZING Last administered on 07/21/17 02:00; Start 07/14/17 at 03:30 Heparin Sodium (Porcine) (Heparin Inj) 5,000 units Q8H SQ Last administered on 07/22/17 21:02; Start 07/14/17 at 06:00 Miscellaneous Information 1 Q361D XX ; Start 07/14/17 at 03:30 Chlorhexidine Gluconate (Chlorhexidine 2% Cloth) Taper DAILY@04 TOP Last administered on 07/21/17 01:37; Start 07/14/17 at 04:00; Stop 07/10/18 at 03:59 Chlorhexidine Gluconate (Chlorhexidine 2% Cloth) 3 pack UNSCH PRN TOP HYGIENIC CARE; Start 07/14/17 at 03:30 Senna/Docusate Sodium (Medina-Colace) 1 tab BID PO Last administered on 07/18/17 08:46; Start 07/14/17 at 09:00 Magnesium Hydroxide (Milk Of Magnesia Liq) 30 ml Q12H PRN PO MILD - MODERATE CONSTIPATION; Start 07/14/17 at 03:30 Sennosides (Senokot) 17.2 mg Q12H PRN PO MODERATE - SEVERE CONSTIPATION; Start 07/14/17 at 03:30 Bisacodyl (Dulcolax Supp) 10 mg DAILY PRN RECTAL SEVERE CONSITIPATION; Start at 03:30 Lactulose (Lactulose Liq) 30 ml DAILY PRN PO SEVERE CONSITIPATION; Start at 03:30 Pharmacy Profile Note 0 ml @ 0 mls/hr UNSCH OTHER ; Start 07/14/17 at 03:30 Vancomycin HCl 1000 mg/Sodium Chloride 250 ml @ 250 mls/hr ONCE ONCE IV ; Start 07/14/17 at 03:30; Stop 07/14/17 at 04:29; Status UNV Hydromorphone HCl (Dilaudid Pf Inj) 0.5 mg Q4H PRN IV PAIN 1-10 Last administered on 07/16/17 10:32; Start 07/14/17 at 04:00; Stop 07/16/17 at 12:44 ; Status DC Fentanyl Citrate 250 ml @ 5 mls/hr Q24H PRN IV SEDATION Last administered on 04:29; Start 07/14/17 at 03:56; Stop 07/16/17 at 12:44; Status DC Hydralazine HCl (Apresoline Inj) 20 mg Q4H PRN IV PUSH SBP>160, DBP>90 Last administered on 07/21/17 04:28; Start 07/14/17 at 04:00 Pharmacy Profile Note 0 ml @ 0 mls/hr UNSCH OTHER ; Start 07/14/17 at 05:30; Stop 07/14/17 at 05:30; Status DC Vancomycin HCl 1000 mg/Sodium Chloride 250 ml @ 250 mls/hr ONCE ONCE IV ; Start 07/14/17 at 05:30; Stop 07/14/17 at 06:29; Status UNV Dextrose (D50w (Vial) Inj) 50 ml UNSCH PRN IV HYPOGLYCEMIA-SEE COMMENTS; Start 07/14/17 at 05:30; Stop 07/14/17 at 10:45; Status DC Glucagon (Glucagon Inj) 1 mg UNSCH PRN OTHER HYPOGLYCEMIA-SEE COMMENTS; Start 07/14/17 at 05:30; Stop 07/14/17 at 10:45; Status DC Insulin Aspart (NovoLOG SUPPLEMENTAL SCALE) 1 ACHS SLIDING SCALE SQ Last administered on 07/14/17 06:42; Start 07/14/17 at 07:00; Stop 07/14/17 at 10:10 ; Status DC Vancomycin HCl 1500 mg/Sodium Chloride 515 ml @ 250 mls/hr Q12H IV Last administered on 07/16/17 06:01; Start 07/14/17 at 14:00; Stop 07/16/17 at 08:58 ; Status DC Miscellaneous Information SPECIFIC LAB TO BE DRAWN:VANCOMYCIN TROUGH DATE TO... ONCE ONCE .XX ; Start 07/16/17 at 01:45; Stop 07/16/17 at 01:46; Status DC Sodium Chloride 1,000 ml @ 84 mls/hr [id number] IV Last administered on 00:19; Start 07/14/17 at 11:00; Stop 07/16/17 at 12:44; Status DC Dextrose (D50w (Vial) Inj) 50 ml UNSCH PRN IV HYPOGLYCEMIA-SEE COMMENTS; Start 07/14/17 at 10:15; Stop 07/17/17 at 09:56; Status DC Glucagon (Glucagon Inj) 1 mg UNSCH PRN OTHER HYPOGLYCEMIA-SEE COMMENTS; Start 07/14/17 at 10:15; Stop 07/17/17 at 09:56; Status DC Insulin Human Regular (NovoLIN R SUPPLEMENTAL SCALE) 1 Q4H SQ Last administered on 07/15/17 06:48; Start 07/14/17 at 11:00; Stop 07/16/17 at 17:20 ; Status DC Potassium Chloride 100 ml @ 50 mls/hr Q2H PRN IV For Potassium 2.8 - 3.2 mEq/ L Last administered on 07/18/17 16:54; Start 07/14/17 at 10:15 Potassium Chloride 100 ml @ 50 mls/hr Q2H PRN IV For Potassium 2.8 - 3.2 mEq/L ; Start 07/14/17 at 10:15 Potassium Bicarb/ Potassium Chloride (K-Lyte Cl Eff) 50 meq UNSCH PRN PO For Potassium 3.3 - 3.5 mEq/L; Start 07/14/17 at 10:15 Potassium Chloride 100 ml @ 25 mls/hr UNSCH PRN IV For Potassium 3.3 - 3.5 mEq /L Last administered on 07/20/17 17:13; Start 07/14/17 at 10:15 Potassium Chloride 100 ml @ 50 mls/hr Q2H PRN IV For Potassium 3.3 - 3.5 mEq/L ; Start 07/14/17 at 10:15 Magnesium Sulfate 4 gm/Sodium Chloride 100 ml @ 50 mls/hr UNSCH PRN IV For Magnesium 0.9 - 1.1 mg/dL; Start 07/14/17 at 10:15 Magnesium Oxide (Mag-Ox) 800 mg UNSCH PRN PO For Magnesium 1.2 - 1.6 mg/dL; Start 07/14/17 at 10:15 Magnesium Sulfate 2 gm/Sodium Chloride 100 ml @ 50 mls/hr UNSCH PRN IV For Magnesium 1.2 - 1.6 mg/dL; Start 07/14/17 at 10:15 Potassium Phosphate (K-Phos) 2,000 mg Q4H PRN PO For Phosphorus < 2.5 mg/dL; Start 07/14/17 at 10:15 Sodium Phosphate 30 mmol/Sodium Chloride 250 ml @ 42 mls/hr UNSCH PRN IV For Phosphorus < 2.5 mg/dL; Start 07/14/17 at 10:15 Potassium Phosphate (K-Phos) 2,000 mg UNSCH PRN PO/TUBE SEE LABEL COMMENTS; Start 07/14/17 at 10:15 Potassium Phosphate 30 mmol/ Sodium Chloride 260 ml @ 42 mls/hr UNSCH PRN IV SEE LABEL COMMENTS; Start 07/14/17 at 10:15 Cyclobenzaprine HCl (Flexeril) 10 mg Q8H PRN PO muscle spasms Last administered on 07/23/17 09:51; Start 07/15/17 at 06:15 Famotidine (Pepcid Liq) 20 mg BID NG Last administered on 07/23/17 08:04; Start 07/15/17 at 09:00 Hydromorphone HCl (Dilaudid Pf Inj) 0.5 mg ONCE ONCE IV Last administered on 15:00; Start 07/15/17 at 15:00; Stop 07/15/17 at 15:01; Status DC Hydromorphone HCl (Dilaudid Pf Inj) 0.5 mg NOW ONCE IV PUSH ; Start 07/15/17 at 15:15; Stop 07/15/17 at 15:16; Status DC Furosemide (Lasix Inj) 40 mg STK-MED ONCE .ROUTE Last administered on 07:12; Start 07/16/17 at 07:12; Stop 07/16/17 at 07:13; Status DC Diltiazem HCl (Cardizem Inj) 25 mg STK-MED ONCE .ROUTE Last administered on 07:21; Start 07/16/17 at 07:21; Stop 07/16/17 at 07:22; Status DC Magnesium Sulfate/ Dextrose 100 ml @ 100 mls/hr Q1H IV Last administered on 08:45; Start 07/16/17 at 07:45; Stop 07/16/17 at 09:44; Status DC Potassium Chloride 100 ml @ 50 mls/hr Q2H IV Last administered on 07/16/17 09 :45; Start 07/16/17 at 07:45; Stop 07/16/17 at 11:44; Status DC Vancomycin HCl 1500 mg/Sodium Chloride 515 ml @ 250 mls/hr Q18H IV Last administered on 07/23/17 00:06; Start 07/17/17 at 00:00 Miscellaneous Information SPECIFIC LAB TO BE DRAWN:VANCO TROUGH DATE... ONCE ONCE .XX Last administered on 07/18/17 11:45; Start 07/18/17 at 11:45; Stop 07/18 at 11:46; Status DC Potassium Chloride (KCl) 40 meq NOW ONCE PO Last administered on 07/16/17 10: 32; Start 07/16/17 at 11:00; Stop 07/16/17 at 11:01; Status DC Hydromorphone HCl (Dilaudid Pf Inj) 0.5 mg Q2H PRN IV PAIN 6-10 or not taking po Last administered on 07/19/17 07:32; Start 07/16/17 at 14:00; Stop 07/19/17 at 07:52; Status DC Oxycodone HCl (Roxicodone) 5 mg Q4H PRN PO pain 1-5 Last administered on 09:51; Start 07/16/17 at 14:00 Diltiazem HCl (Cardizem) 60 mg Q6H PO Last administered on 07/23/17 09:51; Start 07/17/17 at 10:00 Dextrose (D50w (Vial) Inj) 50 ml UNSCH PRN IV HYPOGLYCEMIA-SEE COMMENTS; Start 07/17/17 at 09:00 Glucagon (Glucagon Inj) 1 mg UNSCH PRN OTHER HYPOGLYCEMIA-SEE COMMENTS; Start 07/17/17 at 09:00 Insulin Human Regular (NovoLIN R SUPPLEMENTAL SCALE) 1 Q6H SQ ; Start 07/17/17 at 10:00 Aztreonam 2000 mg/ Sodium Chloride 100 ml @ 200 mls/hr Q8H IV ; Start 07/17/17 at 10:00; Stop 07/17/17 at 10:02; Status DC Vancomycin HCl (VANCOMYCIN for oral use only) 125 mg QID PO Last administered on 07/23/17 08:05; Start 07/17/17 at 13:00; Stop 07/31/17 at 12:59 Hydromorphone HCl (Dilaudid Pf Inj) 0.5 mg ONCE ONCE IV PUSH Last administered on 07/17/17 14:40; Start 07/17/17 at 14:30; Stop 07/17/17 at 14:33; Status DC Hydralazine HCl (Apresoline) 50 mg Q8HR PO Last administered on 07/23/17 04:32 ; Start 07/18/17 at 09:30 Hydromorphone HCl (Dilaudid Pf Inj) 1 mg Q2H PRN IV PAIN 6-10 or not taking po Last administered on 07/23/17 08:00; Start 07/19/17 at 09:00 Bumetanide (Bumex Inj) 1 mg ONCE ONCE IV PUSH Last administered on 07/20/17 08 :37; Start 07/20/17 at 08:00; Stop 07/20/17 at 08:01; Status DC Potassium Bicarb/ Potassium Chloride (K-Lyte Cl Eff) 50 meq ONCE ONCE PO Last administered on 07/21/17 09:35; Start 07/21/17 at 09:00; Stop 07/21/17 at 09: 01; Status DC Potassium Chloride 100 ml @ 100 mls/hr Q1H IV Last administered on 07/21/17 20 :41; Start 07/21/17 at 09:00; Stop 07/21/17 at 11:59; Status DC Miscellaneous Information SPECIFIC LAB TO BE DRAWN:VANCOMYCIN TROUGH DATE TO... ONCE ONCE .XX Last administered on 07/22/17 05:53; Start 07/22/17 at 05:45; Stop 07/22/17 at 05:46; Status DC Heparin Sodium (Porcine) (Heparin Inj) 10,000 units STK-MED ONCE .ROUTE Last administered on 07/21/17 13:44; Start 07/21/17 at 13:44; Stop 07/21/17 at 13:45; Status DC Vancomycin HCl (Vancomycin Inj) 1,000 mg STK-MED ONCE .ROUTE Last administered on 07/21/17 14:43; Start 07/21/17 at 14:10; Stop 07/21/17 at 14:11; Status DC Iohexol (Omnipaque 350 Inj) 50 ml ONCE ONCE .XX ; Start 07/21/17 at 14:44; Stop 07/21/17 at 14:45; Status DC Fentanyl Citrate (fentaNYL INJ) 100 mcg STK-MED ONCE .ROUTE ; Start 07/21/17 at 15:57; Stop 07/21/17 at 15:58; Status DC Miscellaneous Information ALL NURSING DEPARTME... UNSCH PRN .XX SEE LABEL COMMENTS; Start 07/21/17 at 15:49; Stop 07/22/17 at 15:48; Status DC Miscellaneous Information ALL NURSING DEPARTME... UNSCH PRN .XX SEE LABEL COMMENTS; Start 07/21/17 at 15:49; Stop 07/22/17 at 15:48; Status Cancel Other Results Laboratory Tests Test 07/21/17 19:24 07/22/17 05:53 07/23/17 08:54 Hemoglobin 10.0 GM/DL 8.4 GM/DL 9.0 GM/DL Hematocrit 32.3 % 26.2 % 28.1 % White Blood Count 13.0 TH/MM3 11.1 TH/MM3 Red Blood Count 3.19 MIL/MM3 3.40 MIL/MM3 Mean Corpuscular Volume 82.4 FL 82.5 FL Mean Corpuscular Hemoglobin 26.4 PG 26.6 PG Mean Corpuscular Hemoglobin Concent 32.1 % 32.2 % Red Cell Distribution Width 17.1 % 17.6 % Platelet Count 496 TH/MM3 524 TH/MM3 Mean Platelet Volume 7.0 FL 7.5 FL Neutrophils (%) (Auto) 73.0 % Lymphocytes (%) (Auto) 11.6 % Monocytes (%) (Auto) 12.9 % Eosinophils (%) (Auto) 1.9 % Basophils (%) (Auto) 0.6 % Neutrophils # (Auto) 9.5 TH/MM3 Lymphocytes # (Auto) 1.5 TH/MM3 Monocytes # (Auto) 1.7 TH/MM3 Eosinophils # (Auto) 0.3 TH/MM3 Basophils # (Auto) 0.1 TH/MM3 CBC Comment DIFF FINAL Differential Comment Laboratory Tests Test 07/21/17 19:24 07/22/17 05:53 07/23/17 08:54 Potassium Level 3.7 MEQ/L 3.5 MEQ/L 3.2 MEQ/L Blood Urea Nitrogen 12 MG/DL 14 MG/DL Creatinine 0.69 MG/DL 0.74 MG/DL Random Glucose 111 MG/DL 101 MG/DL Calcium Level 8.5 MG/DL 8.6 MG/DL Phosphorus Level 3.3 MG/DL 3.5 MG/DL Magnesium Level 1.8 MG/DL 1.7 MG/DL Sodium Level 137 MEQ/L 138 MEQ/L Chloride Level 103 MEQ/L 102 MEQ/L Carbon Dioxide Level 26.5 MEQ/L 25.6 MEQ/L Anion Gap 8 MEQ/L 10 MEQ/L Estimat Glomerular Filtration Rate 113 ML/MIN 104 ML/MIN Exam-Podiatry Constitutional General appearance: comfortable Nutritional status: normal Orientation: alert and oriented x3 Dermatological Exam Skin Temp - Right: Within Normal Limits Skin Texture - Right: Within Normal Limits Skin Elasticity - Right: Within Normal Limits Skin Tugor - Right: Within Normal Limits Hair Growth - Right: Within Normal Limits Pigmentation - Right: Within Normal Limits Skin Temp - Left: Cool Skin Texture - Left: Thin Skin Elasticity - Left: Decreased Skin Tugor - Left: Decreased Hair Growth - Left: Absent Pigmentation - Left: Abnormal Vascular/Lymphatic Exam R Dorsails Pedis: Doppler L Dorsails Pedis: Doppler R Posterior Tibial: Doppler L Posterior Tibial: Doppler Neurologic Exam Present on right: Tingling, Paraesthesia Present on left: Tingling, Paraesthesia Musculoskeletal Exam Details Gangrenous changes of the left hallux. 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 Patient was put on the schedule for this Thursday at 10 AM for amputation of the left hallux. Negative pressure wound VAC on standby. Orders written. Nothing by mouth after midnight. 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
[2017-07-23 14:39] LABS: PROTHROMBIN TIME - PATIENT 11.6 SEC (9.8-11.6)
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
[2017-07-23] MEDS ORDERED: POTASSIUM CHLORIDE 20 MEQ CONTROLLED RELEASE TAB PO ONE (18:45)
--- NOTE | 2017-07-23 18:51 | HHI.PR ---
Subjective Remarks Patient resting in bed complaining of pain But no fever or chills Plan for amputation in a.m. Objective Vitals Vital Signs Date Time Temp Pulse Resp B/P (MAP) Pulse Ox O2 Delivery O2 Flow Rate FiO2 07/23/17 18:05 96 21 07/23/17 16:00 99.1 70 20 179/81 (113) 96 07/23/17 12:00 98.0 70 20 170/72 (104) 93 07/23/17 10:12 93 21 07/23/17 08:00 98.0 72 20 173/79 (110) 93 07/23/17 04:20 98.5 82 16 176/74 (108) 94 07/23/17 00:14 98.4 47 16 149/69 (95) 92 07/22/17 19:00 98.7 70 18 163/73 (103) 93 I/O 07/22/17 07/22/17 07/22/17 07/23/17 07/23/17 07/23/17 07:00 15:00 23:00 07:00 15:00 23:00 Intake Total 721 ml 515 ml 480 ml 515 ml Output Total 750 ml 350 ml Balance -29 ml 515 ml 130 ml 515 ml Intake Oral 120 ml 480 ml IV Total 601 ml 515 ml 515 ml Output Urine Total 750 ml 350 ml # Bowel Movements 1 0 Result Diagram: 07/23/17 0854 07/23/17 0854 Objective Remarks GENERAL: This is a well-nourished, well-developed patient, in no apparent distress. SKIN: No rashes, warm and dry HEAD: Atraumatic. Normocephalic. EYES: Pupils equal round and reactive. Extraocular motions intact. No scleral icterus. ENT: Nose without bleeding, or drainage, Airway patent. NECK: Trachea midline. Supple CARDIOVASCULAR: Regular rate and rhythm without murmurs, gallops, or rubs. RESPIRATORY: Fair air entry bilaterally. No wheezes, rales, or rhonchi. GASTROINTESTINAL: Abdomen soft, non-tender, nondistended. Positive bowel sounds MUSCULOSKELETAL: Left foot in gauze NEUROLOGICAL: Awake and alert. Moves all extremity. Normal speech.no focal neurological deficit A/P Assessment and Plan 71 years old male with Diabetic ischemic foot ulcer with history of MRSA wound History of osteomyelitis -MRSA UTI( Pseudomonas) Hx C-diff Dementia PAF Uncontrolled hypertension Hypokalemia> replaced Plan: -Continue abx per ID- Vancomycin IV and PO, Lactinex, Podiatry is following. Monitor for signs of infections ( Fever, WBC) WBC is trending down -Follow up on BC and urine cx from 07/18: NGTD - Vascular surgery is following- Dr. Anand Continue Cardizem 60mg Q6, Hydralazine 50mg Q8, on Hydralazine PRN, added lisinopril 10 mg Monitor CBC, on FESO4 325mg BID S/P transfusion 2 units PRBC ( Hgb 6.8) On SSI with accuchecks Q6 DVT GI prophylaxis - Teds SCDs - Subcutaneous heparin - Selina Hammond MD Jul 23, 2017 18:51
[2017-07-23] MEDS: LISINOPRIL 10 MG TAB PO SCH (18:58)
[2017-07-23] MEDS: DONEPEZIL HCL 5 MG TAB PO SCH (21:16)
[2017-07-23] MEDS: ATORVASTATIN 40 MG TAB PO SCH (21:16)
[2017-07-23] MEDS: LATANOPROST 0.005% OPHT SOLN 2.5 ML BTL EACH EYE SCH (21:18)
[2017-07-23] MEDS: SODIUM CHLORIDE 0.9% FLUSH 10 ML FLUSH SCH (21:20)
[2017-07-24] VITALS: BP 181/82; PULSE 70; RESP 17; TEMP 98.7; O2SAT 93
[2017-07-24] MEDS: INSULIN NovoLIN REGULAR SUPPLEMENTAL SCALE SQ SCH ×4 (03:24→20:08)
[2017-07-24] MEDS: CHLORHEXIDINE GLUCONATE 2 % 1 PACK (2 CLOTHS) TOP SCH (03:24)
[2017-07-24 04:00] VITALS: BP 182/86; PULSE 75; RESP 21; TEMP 98.1; O2SAT 94
[2017-07-24] MEDS: HEPARIN SODIUM - SQ 10,000 UNITS/ML VIAL SQ SCH ×3 (04:54→20:08)
[2017-07-24] MEDS: DILTIAZEM HCL 60 MG TAB PO SCH ×4 (04:54→20:08)
[2017-07-24] MEDS: hydrALAZINE HCL 50 MG TAB PO SCH ×3 (04:54→20:07)
[2017-07-24] MEDS: HYDROmorphone HCL PF 1 MG/ML VIAL IV PRN ×4 (04:55→20:12)
[2017-07-24 08:00] VITALS: PULSE 77
[2017-07-24 08:06] VITALS: BP 190/86; PULSE 77; RESP 18; TEMP 97.6; O2SAT 95
[2017-07-24] MEDS: BUDESONIDE-FORMOTEROL 80/4.5 MCG INHALER INH SCH ×2 (09:00→20:09)
[2017-07-24] MEDS: FAMOTIDINE 40 MG/5 ML LIQ 50 ML BTL NG SCH ×2 (09:00→20:09)
[2017-07-24] MEDS: MULTIVITAMINS/MINERALS THERAPEUTIC TAB PO SCH (09:02)
[2017-07-24] MEDS: ASCORBIC ACID 500 MG TAB PO SCH (09:02)
[2017-07-24] MEDS: FERROUS SULFATE 325 MG (65 MG ELEMENTAL IRON) TAB PO SCH ×2 (09:02→17:10)
[2017-07-24] MEDS: LISINOPRIL 10 MG TAB PO SCH (09:02)
[2017-07-24] MEDS: LACTOBACILLUS ACIDOPHILUS TAB PO SCH ×3 (09:03→17:10)
[2017-07-24] MEDS: CITALOPRAM HYDROBROMIDE 20 MG TAB PO SCH (09:03)
[2017-07-24] MEDS: DOCUSATE SODIUM 50 MG/SENNA 8.6 MG TAB PO SCH ×2 (09:03→20:56)
[2017-07-24] MEDS: VANCOMYCIN 500 MG VIAL (FOR ORAL USE ONLY) PO SCH ×4 (09:03→20:07)
[2017-07-24] MEDS: ARTIFICIAL TEARS OPTH SOLN 15 ML BTL EACH EYE SCH ×3 (09:06→17:10)
[2017-07-24] MEDS ORDERED: BUPIVACAINE HCL PF 0.5% 30 ML VIAL ONE (09:24)
[2017-07-24] MEDS ORDERED: LIDOCAINE HCL 1% 50 ML VIAL ONE (09:24)
[2017-07-24] MEDS ORDERED: DO NOT ADM ANY ANTICOAGULANT DRUGS PRN (10:55)
[2017-07-24] MEDS ORDERED: HYDROmorphone HCL 2 MG TAB PO PRN ×2 (11:00)
[2017-07-24] MEDS ORDERED: Post-op Orders (for Pharmacy) MISC XX ONE (11:00)
[2017-07-24] MEDS ORDERED: NALOXONE HCL 0.4 MG/ML AMP IV PRN (11:00)
--- NOTE | 2017-07-24 11:08 | PD.OP ---
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 A pneumatic ankle cuff was placed around the patient's left ankle after adequate web roll padding. Patient was given general relation anesthesia and the left foot was prepped and draped in usual sterile manner. The left foot was elevated above the operating table for a period of 3 minutes at which time the pneumatic ankle cuff was inflated to 250 mmHg. After the appropriate timeout was performed attention was directed to the first ray which is noted to be gangrenous with necrotic tissue back to the Medial cuneiform. At this time to semi-elliptical incisions were made on the dorsal and plantar aspect of the left hallux and deepened down to the level of the remaining first metatarsal. Using sharp dissection the hallux was disarticulated and delivered from the wound. Should be noted that the first metatarsal that was remaining was necrotic and discolored. Using sharp and blunt dissection the first metatarsal was disarticulated at the metatarsal cuneiform joint. The medial cuneiform was then freed up and removed from the surgical site also. All necrotic tissue and purulent tissue is debrided from the wound. The area was flushed with copious amounts of sterile saline. Pneumatic ankle cuff was inflated at the 19 minute lita. Any superficial bleeding vessels were identified and ligated or bovied. 10 cc of 0.5% Marcaine was infiltrated around the amputation site. And negative pressure wound therapy VAC sponge was then applied to the defect of the first ray. The negative pressure wound therapy VAC was set at 125 mmHg continuous. Sponge and instrument count were noted to be correct. Left hallux was sent to pathology. First metatarsal was sent for culture and sensitivity. Estimated blood loss was less than 25 cc. Patient tolerated the procedures and anesthesia well and left the OR to PACU in apparent satisfactory condition without signs stable endovascular status intact to the remaining digits of the left foot. Gamal Arvizu DPM Jul 24, 2017 11:08
[2017-07-24] MEDS ORDERED: *HYDROmorphone PF 1 MG VIAL PERIprocedural Use ONLY ONE ×2 (11:26→13:20)
[2017-07-24] MEDS ORDERED: VANCOMYCIN 500 MG VIAL ONE (11:54)
[2017-07-24] MEDS ORDERED: VANCOMYCIN HCL 1000 MG VIAL ONE (11:55)
[2017-07-24] MEDS: VANCOMYCIN INJ 1,500 MG in SODIUM CHLORID 0.9% 500 ML INJ 500 ML IV SCH (12:00)
--- NOTE | 2017-07-24 13:00 | RADRPT ---
EXAM DATE/TIME: 07/24/2017 11:21 [facility] COMPARISON: FOOT LEFT LIMITED (2VWS), July 14, 2017, 1:44. INDICATIONS : Post operative foot X-Ray. MEDICAL HISTORY : Chronic obstructive pulmonary disease. Hypertension Pancreatitis. SURGICAL HISTORY : None. ENCOUNTER: Subsequent ACUITY: 1 week PAIN SCORE: 10/10 LOCATION: Left Foot. FINDINGS: There is amputation at the level of the first tarsometatarsal junction. The rest of the examination h as not significantly changed. CONCLUSION: Postop amputation. Serina Willis MD on July 24, 2017 at 12:57 Board Certified Radiologist. This report was verified electronically.
[2017-07-24] MEDS ORDERED: DEXAMETHASONE SOD PHOS 4 MG/ML VIAL IV ONE (15:20)
[2017-07-24] MEDS ORDERED: PROPOFOL 200 MG/20 ML AMP IV ONE (15:20)
[2017-07-24] MEDS ORDERED: MIDAZOLAM HCL 2 MG/2 ML VIAL IV ONE (15:20)
[2017-07-24] MEDS ORDERED: ONDANSETRON HCL 4 MG/2 ML VIAL IV PUSH ONE (15:20)
[2017-07-24 16:08] VITALS: BP 148/66; PULSE 70; RESP 18; TEMP 98.2; O2SAT 93
--- NOTE | 2017-07-24 19:33 | HHI.PR ---
Subjective Remarks Patient had left hallux amputation today with wound VAC application I Dr. Arvizu I discussed with him Patient resting in bed comfortable, however he stated his pain is not controlled I will adjust his pain regimen No fever or chills Objective Vitals Vital Signs Date Time Temp Pulse Resp B/P (MAP) Pulse Ox O2 Delivery O2 Flow Rate FiO2 07/24/17 16:08 98.2 70 18 148/66 (93) 93 07/24/17 13:00 66 16 168/78 (108) 97 Nasal Cannula 2 07/24/17 12:00 60 16 166/71 (102) 99 Nasal Cannula 2 07/24/17 11:45 62 16 161/69 (99) 99 Nasal Cannula 2 07/24/17 11:30 66 16 152/68 (96) 97 Nasal Cannula 2 07/24/17 11:15 68 16 149/68 (95) 97 Nasal Cannula 2 07/24/17 11:00 66 16 125/62 (83) 95 Nasal Cannula 2 07/24/17 10:55 98.5 64 16 120/58 (78) 95 Nasal Cannula 2 07/24/17 08:06 97.6 77 18 190/86 (120) 95 07/24/17 08:00 Room Air 07/24/17 08:00 77 07/24/17 04:00 98.1 75 21 182/86 (118) 94 07/24/17 04:00 Room Air 07/24/17 00:00 Room Air 07/24/17 00:00 98.7 70 17 181/82 (115) 93 07/23/17 20:00 98.4 68 20 182/72 (108) 97 07/23/17 20:00 Room Air I/O 07/23/17 07/23/17 07/23/17 07/24/17 07/24/17 07/24/17 06:59 14:59 22:59 06:59 14:59 22:59 Intake Total 515 ml 960 ml 520 ml 360 ml Output Total 1500 ml 1800 ml 100 ml 700 ml Balance 515 ml -540 ml -1280 ml -100 ml -340 ml Intake Oral 960 ml 520 ml 360 ml IV Total 515 ml Output Urine Total 1500 ml 1800 ml 700 ml Estimated Blood Loss 100 ml # Bowel Movements 1 1 1 Result Diagram: 07/23/1785307/23/17853 Objective Remarks - GENERAL: This is a well-nourished, well-developed patient, in no apparent distress. SKIN: No rashes, warm and dry HEAD: Atraumatic. Normocephalic. EYES: Pupils equal round and reactive. Extraocular motions intact. No scleral icterus. ENT: Nose without bleeding, or drainage, Airway patent. NECK: Trachea midline. Supple CARDIOVASCULAR: Regular rate and rhythm without murmurs, gallops, or rubs. RESPIRATORY: Fair air entry bilaterally. No wheezes, rales, or rhonchi. GASTROINTESTINAL: Abdomen soft, non-tender, nondistended. Positive bowel sounds MUSCULOSKELETAL: Left foot first toe amputation, wound VAC in place NEUROLOGICAL: Awake and alert. Moves all extremity. 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 Monitor for signs of infections ( Fever, WBC) WBC is trending down -Follow up on BC and urine cx from 07/18: NGTD - Vascular surgery is following- Dr. Anand Continue Cardizem 60mg Q6, Hydralazine 50mg Q8, on Hydralazine PRN, added lisinopril 10 mg Monitor CBC, on FESO4 325mg BID S/P transfusion 2 units PRBC ( Hgb 6.8) On SSI with accuchecks Q6 DVT GI prophylaxis - Teds SCDs - Subcutaneous heparin - Selina Hammond MD Jul 24, 2017 19:33
[2017-07-24 20:00] VITALS: BP 159/74; PULSE 71; PULSE 72; RESP 20; TEMP 98; O2SAT 95
[2017-07-24] MEDS: ATORVASTATIN 40 MG TAB PO SCH (20:07)
[2017-07-24] MEDS: DONEPEZIL HCL 5 MG TAB PO SCH (20:07)
[2017-07-24] MEDS: LATANOPROST 0.005% OPHT SOLN 2.5 ML BTL EACH EYE SCH (20:09)
[2017-07-24] MEDS: SODIUM CHLORIDE 0.9% FLUSH 10 ML FLUSH IV FLUSH SCH (20:09)
[2017-07-25] VITALS (7 sets, daily range): BP systolic 162–181; BP diastolic 72–98; PULSE 59–76; RESP 16–20; TEMP 97–98.8; O2SAT 93–95
[2017-07-25] MEDS: INSULIN NovoLIN REGULAR SUPPLEMENTAL SCALE SQ SCH ×4 (04:00→21:30)
[2017-07-25] MEDS: CHLORHEXIDINE GLUCONATE 2 % 1 PACK (2 CLOTHS) TOP SCH (04:00)
[2017-07-25] MEDS: hydrALAZINE HCL 50 MG TAB PO SCH ×3 (04:12→21:29)
[2017-07-25] MEDS: DILTIAZEM HCL 60 MG TAB PO SCH ×4 (04:12→21:29)
[2017-07-25] MEDS: HYDROmorphone HCL PF 1 MG/ML VIAL IV PRN ×4 (04:13→19:50)
[2017-07-25] MEDS: HEPARIN SODIUM - SQ 10,000 UNITS/ML VIAL SQ SCH ×3 (05:03→21:29)
[2017-07-25] MEDS ORDERED: PHARMACY ORDERED LAB ONE (05:45)
[2017-07-25] MEDS: VANCOMYCIN INJ 1,500 MG in SODIUM CHLORID 0.9% 500 ML INJ 500 ML IV SCH (06:21)
[2017-07-25 07:08] LABS: BICARBONATE 29.4 MEQ/L (21.0-32.0); POTASSIUM 3.7 MEQ/L (3.5-5.1)
--- NOTE | 2017-07-25 07:25 | PD.VS.PN ---
Subjective POD #: 4 Procedure(s): Aortogram w/ L LE angiogram L SFA and popliteal SKIDDER (5mm) R BARK FITTER Angioseal Subjective/Hospital Course underwent toe/met amputation with podiatry yesterday - no apparent intraop problems VAC placed - bloody drainage noted, which is excellent. Pt notes that his foot pain is "different" than before. Objective Vitals/I&O Date Time Temp Pulse Resp B/P (MAP) Pulse Ox O2 Delivery O2 Flow Rate FiO2 07/25/17 04:00 98.8 76 20 181/83 (115) 95 07/25/17 00:00 Room Air 07/25/17 00:00 98.2 75 20 180/82 (114) 94 07/24/17 20:00 98.0 72 20 159/74 (102) 95 07/24/17 20:00 Room Air 07/24/17 20:00 71 07/24/17 16:08 98.2 70 18 148/66 (93) 93 07/24/17 13:00 66 16 168/78 (108) 97 Nasal Cannula 2 07/24/17 12:00 60 16 166/71 (102) 99 Nasal Cannula 2 07/24/17 11:45 62 16 161/69 (99) 99 Nasal Cannula 2 07/24/17 11:30 66 16 152/68 (96) 97 Nasal Cannula 2 07/24/17 11:15 68 16 149/68 (95) 97 Nasal Cannula 2 07/24/17 11:00 66 16 125/62 (83) 95 Nasal Cannula 2 07/24/17 10:55 98.5 64 16 120/58 (78) 95 Nasal Cannula 2 07/24/17 08:06 97.6 77 18 190/86 (120) 95 07/24/17 08:00 Room Air 07/24/17 08:00 77 07/25/17 07/25/17 07/25/17 07:00 15:00 23:00 Intake Total 240 ml Output Total 1550 ml Balance -1310 ml Exam: foot warm VAC in place Laboratory Laboratory Tests Test 07/25/17 05:40 Blood Urea Nitrogen 14 Creatinine 0.77 Random Glucose 151 Calcium Level 7.9 Sodium Level 137 Potassium Level 3.7 Chloride Level 102 Carbon Dioxide Level 29.4 Anion Gap 6 Estimat Glomerular Filtration Rate 99 Vancomycin Level Trough 16.3 Date/Time Source Procedure Growth Status 9/2/17 13:52 Blood Peripheral Aerobic Blood Culture - Final NO GROWTH IN 5 DAYS Complete 07/18/17 13:52 Blood Peripheral Anaerobic Blood Culture - Final NO GROWTH IN 5 DAYS Complete 07/18/17 09:35 Urine Clean Catch Urine Culture - Final NO GROWTH IN 48 HOURS. Complete 07/24/17 10:15 Wound Foot Fungal Smear - Final NO FUNGAL ELEMENTS SEEN. 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
[2017-07-25] MEDS: CITALOPRAM HYDROBROMIDE 20 MG TAB PO SCH (08:47)
[2017-07-25] MEDS: FERROUS SULFATE 325 MG (65 MG ELEMENTAL IRON) TAB PO SCH ×2 (08:47→17:54)
[2017-07-25] MEDS: MULTIVITAMINS/MINERALS THERAPEUTIC TAB PO SCH (08:47)
[2017-07-25] MEDS: ASCORBIC ACID 500 MG TAB PO SCH (08:48)
[2017-07-25] MEDS: FAMOTIDINE 40 MG/5 ML LIQ 50 ML BTL NG SCH ×2 (08:49→20:13)
[2017-07-25] MEDS: SODIUM CHLORIDE 0.9% FLUSH 10 ML FLUSH IV FLUSH SCH ×2 (08:52→20:14)
[2017-07-25] MEDS: ARTIFICIAL TEARS OPTH SOLN 15 ML BTL EACH EYE SCH ×3 (08:52→17:53)
[2017-07-25] MEDS: BUDESONIDE-FORMOTEROL 80/4.5 MCG INHALER INH SCH ×2 (08:52→20:15)
[2017-07-25] MEDS: DOCUSATE SODIUM 50 MG/SENNA 8.6 MG TAB PO SCH ×2 (08:53→20:12)
[2017-07-25] MEDS ORDERED: LISINOPRIL 20 MG TAB PO SCH (09:00)
--- NOTE | 2017-07-25 10:09 | PD.POD ---
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 Patient underwent an arteriogram with intervention by Dr. Anand. Yesterday he underwent a first ray amputation including the medial cuneiform of the left foot. A negative pressure wound therapy VAC was applied. VAC appears to be functioning well. Past Med/Surg/Social History Past Medical History Endocrine: REPORTS HX OF: Diabetes mellitus, Graves disease Cardiovascular: REPORTS HX OF: Hypertension, Peripheral vascular dz Gastrointestinal: REPORTS HX OF: Other GI history (prior GI bleed, pt finished c. diff treatment on friday 05/25) Musculoskeletal: REPORTS HX OF: Other musculoskeletal hx (L. shoulder pain worsen after his arm was injured in latest hospitalization) Cancer/Hematology: REPORTS HX OF: Anemia Past Surgical History Gastrointestinal: DENIES HX OF: Colectomy, total Musculoskeletal: REPORTS HX OF: Other musculoskeletal srg (resection of the first metatarsal head and sesamoids) Social History Smoking Status: Unknown If Ever Smoked Review of Systems Notes Any changes in his 14 point review of systems exam since yesterday with the resection of the first ray of the left foot Objective Vital Signs Vital Signs Date Time Temp Pulse Resp B/P (MAP) Pulse Ox O2 Delivery O2 Flow Rate FiO2 07/25/17 08:00 98.4 75 16 162/98 (119) 95 07/25/17 07:21 16 07/25/17 04:00 98.8 76 20 181/83 (115) 95 07/25/17 00:00 Room Air 07/25/17 00:00 98.2 75 20 180/82 (114) 94 07/24/17 20:00 98.0 72 20 159/74 (102) 95 07/24/17 20:00 Room Air 07/24/17 20:00 71 07/24/17 16:08 98.2 70 18 148/66 (93) 93 07/24/17 13:00 66 16 168/78 (108) 97 Nasal Cannula 2 07/24/17 12:00 60 16 166/71 (102) 99 Nasal Cannula 2 07/24/17 11:45 62 16 161/69 (99) 99 Nasal Cannula 2 07/24/17 11:30 66 16 152/68 (96) 97 Nasal Cannula 2 07/24/17 11:15 68 16 149/68 (95) 97 Nasal Cannula 2 07/24/17 11:00 66 16 125/62 (83) 95 Nasal Cannula 2 07/24/17 10:55 98.5 64 16 120/58 (78) 95 Nasal Cannula 2 Coded Allergies: Sulfa (Sulfonamide Antibiotics) (Verified Allergy, Severe, Anaphylaxis, ) metronidazole (Verified Allergy, Severe, Fever, colitis, 07/07/17) While being treated for Cdiff. Doubt if true allergy. penicillin G (Verified Allergy, Severe, Anaphylaxis, 07/07/17) sulfamethoxazole (Verified Allergy, Severe, Anaphylaxis, 07/07/17) trimethoprim (Verified Allergy, Severe, Anaphylaxis, 07/07/17) erythromycin base (Verified Allergy, Intermediate, Rash, 07/07/17) aspirin (Verified Allergy, Unknown, 07/07/17) oxycodone (Verified Allergy, Unknown, 07/07/17) PT states oxycodone is fine, but percodan is too strong MRI PRECAUTION (Verified Adverse Reaction, Severe, BLADDER STIMULATOR, ) BRAIN ONLY ON RECEIVE ONLY COIL, P.O. 01/11/17, DML acetaminophen (Verified Adverse Reaction, Unknown, Psychosis, 07/07/17) meperidine (Verified Adverse Reaction, Unknown, Psychosis, 07/07/17) morphine (Verified Adverse Reaction, Unknown, Psychosis, 07/07/17) Uncoded Allergies: surgical tape (Allergy, Severe, 12/15/13) Medications and IVs Current Medications Etomidate (Amidate Inj) 40 mg STK-MED ONCE .ROUTE ; Start 07/14/17 at 00:32; Stop 07/14/17 at 00:33; Status DC Propofol 100 ml @ As Directed STK-MED ONCE .ROUTE ; Start 07/14/17 at 00:35; Stop 07/14/17 at 00:36; Status DC IV Flush (NS Flush) 2 ml UNSCH PRN IV FLUSH FLUSH AFTER USING IV ACCESS; Start 07/14/17 at 00:45; Stop 07/14/17 at 03:47; Status DC Vancomycin HCl 1450 mg/Sodium Chloride 514.5 ml @ 250 mls/hr ONCE ONCE IV Last administered on 07/14/17 02:36; Start 07/14/17 at 01:30; Stop 07/14/17 at 03:33; Status DC Aztreonam 2000 mg/ Sodium Chloride 100 ml @ 200 mls/hr ONCE ONCE IV Last administered on 07/14/17 02:08; Start 07/14/17 at 01:30; Stop 07/14/17 at 01:59 ; Status DC Racepinephrine (Racepinephrine 2.25% Neb) 0.5 ml ONCE ONCE NEB Last administered on 07/14/17 01:36; Start 07/14/17 at 01:30; Stop 07/14/17 at 01:31 ; Status DC Methylprednisolone Sodium Succinate (SoluMEDROL INJ) 60 mg ONCE ONCE IVP Last administered on 07/14/17 01:44; Start 07/14/17 at 01:30; Stop 07/14/17 at 01:31 ; Status DC Albuterol/ Ipratropium (Duoneb Neb) 1 ampule Q15M INH Last administered on 07/14 01:48; Start 07/14/17 at 01:30; Stop 07/14/17 at 02:01; Status DC Etomidate (Amidate Inj) 30 mg ONCE ONCE IV PUSH Last administered on 02:09; Start 07/14/17 at 02:00; Stop 07/14/17 at 02:02; Status DC Rocuronium Rogers (Zemuron Inj) 60 mg BOLUS ONCE IV Last administered on 07/14 02:08; Start 07/14/17 at 02:00; Stop 07/14/17 at 02:02; Status DC Propofol 100 ml @ 2.85 mls/hr Q35H6M PRN IV Ordered RASS Last administered on 01:37; Start 07/14/17 at 02:02; Stop 07/16/17 at 12:44; Status DC Midazolam HCl (Versed Inj) 5 mg STK-MED ONCE .ROUTE ; Start 07/14/17 at 02:30; Stop 07/14/17 at 02:31; Status DC Sodium Chloride 1,000 ml @ 999 mls/hr BOLUS ONCE IV Last administered on 07/14 03:32; Start 07/14/17 at 03:00; Stop 07/14/17 at 04:00; Status DC Midazolam HCl (Versed Inj) 5 mg ONCE ONCE IV PUSH Last administered on 03:06; Start 07/14/17 at 03:15; Stop 07/14/17 at 03:16; Status DC Midazolam HCl 100 ml @ 2 mls/hr Q50H PRN IV SEDATION Last administered on 03:39; Start 07/14/17 at 03:01; Stop 07/15/17 at 06:31; Status DC Midazolam HCl 100 ml @ As Directed STK-MED ONCE .ROUTE ; Start 07/14/17 at 03: 17; Stop 07/14/17 at 03:18; Status DC Aspirin (Aspirin Chew) 81 mg DAILY CHEW Last administered on 07/20/17 08:37; Start 07/14/17 at 09:00; Status Future Hold Atorvastatin Calcium (Lipitor) 40 mg HS PO Last administered on 07/24/17 20:07 ; Start 07/14/17 at 21:00 Citalopram Hydrobromide (CeleXA) 60 mg DAILY PO Last administered on 07/25/17 08:47; Start 07/14/17 at 09:00 Cyclobenzaprine HCl (Flexeril) 10 mg Q8HR PO Last administered on 07/15/17 04: 21; Start 07/14/17 at 06:00; Stop 07/15/17 at 06:31; Status DC Donepezil HCl (Aricept) 10 mg HS PO Last administered on 07/24/17 20:07; Start 07/14/17 at 21:00 Gabapentin (Neurontin) 100 mg TID PO ; Start 07/14/17 at 09:00; Stop 07/15/17 at 06:31; Status DC Lactobacillus Acidophilus (Lactinex) 1 tab TIDAC PO Last administered on 17:10; Start 07/14/17 at 08:00 Ascorbic Acid (Vitamin C) 1,000 mg DAILY PO Last administered on 07/25/17 08:48 ; Start 07/14/17 at 09:00 Ferrous Sulfate (Ferrous Sulfate) 325 mg BIDPC PO Last administered on 08:47; Start 07/14/17 at 09:00 Budesonide/ Formoterol Fumarate (Symbicort 80-4.5 Mcg Inh) 1 puff BID INH Last administered on 07/25/17 08:52; Start 07/14/17 at 09:00 Multivitamins/ Minerals Therapeutic (Theragran M Tab) 1 tab DAILY PO Last administered on 07/25/17 08:47; Start 07/14/17 at 09:00 Latanoprost (Xalatan 0.005% Opth Soln) 1 drop HS EACH EYE Last administered on 07/24/17 20:09; Start 07/14/17 at 21:00 Sodium Chloride (NS Flush) 2 ml UNSCH PRN .XX FLUSH AFTER USING IV ACCESS; Start 07/14/17 at 03:30; Stop 07/24/17 at 12:35; Status DC Sodium Chloride (NS Flush) 2 ml BID .XX Last administered on 07/23/17 21:20; Start 07/14/17 at 09:00; Stop 07/24/17 at 12:35; Status DC Acetaminophen (Tylenol) 650 mg Q6H PRN PO FEVER >101F; Start 07/14/17 at 03:30 ; Stop 07/14/17 at 03:47; Status DC Morphine Sulfate (Morphine Inj) 2 mg Q2H PRN IV PAIN SCALE 6 TO 10; Start 07/14 at 03:30; Stop 07/14/17 at 03:47; Status DC Famotidine (Pepcid Inj) 20 mg Q12HR IV PUSH Last administered on 07/14/17 20: 45; Start 07/14/17 at 09:00; Stop 07/15/17 at 06:31; Status DC Midazolam HCl (Versed Inj) 2 mg Q1H PRN IV SEDATION; Start 07/14/17 at 03:30; Stop 07/15/17 at 06:31; Status DC Artificial Tears (Tears Naturale Opth Soln) 1 drop TID EACH EYE Last administered on 07/25/17 08:52; Start 07/14/17 at 09:00 Ondansetron HCl (Zofran Inj) 4 mg Q6H PRN IV NAUSEA OR VOMITING; Start at 03:30 Albuterol/ Ipratropium (Duoneb Neb) 1 ampule Q6HR NEB INH Last administered on 07/17/17 07:39; Start 07/14/17 at 04:00; Stop 07/18/17 at 03:59; Status DC Albuterol/ Ipratropium (Duoneb Neb) 1 ampule Q2HR NEB PRN INH WHEEZING Last administered on 07/21/17 02:00; Start 07/14/17 at 03:30 Heparin Sodium (Porcine) (Heparin Inj) 5,000 units Q8H SQ Last administered on 07/23/17 21:18; Start 07/14/17 at 06:00 Miscellaneous Information 1 Q361D XX ; Start 07/14/17 at 03:30 Chlorhexidine Gluconate (Chlorhexidine 2% Cloth) Taper DAILY@04 TOP Last administered on 07/21/17 01:37; Start 07/14/17 at 04:00; Stop 07/10/18 at 03:59 Chlorhexidine Gluconate (Chlorhexidine 2% Cloth) 3 pack UNSCH PRN TOP HYGIENIC CARE; Start 07/14/17 at 03:30 Senna/Docusate Sodium (Medina-Colace) 1 tab BID PO Last administered on 07/24/17 09:03; Start 07/14/17 at 09:00 Magnesium Hydroxide (Milk Of Magnesia Liq) 30 ml Q12H PRN PO MILD - MODERATE CONSTIPATION; Start 07/14/17 at 03:30 Sennosides (Senokot) 17.2 mg Q12H PRN PO MODERATE - SEVERE CONSTIPATION; Start 07/14/17 at 03:30 Bisacodyl (Dulcolax Supp) 10 mg DAILY PRN RECTAL SEVERE CONSITIPATION; Start at 03:30 Lactulose (Lactulose Liq) 30 ml DAILY PRN PO SEVERE CONSITIPATION; Start at 03:30 Pharmacy Profile Note 0 ml @ 0 mls/hr UNSCH OTHER ; Start 07/14/17 at 03:30 Vancomycin HCl 1000 mg/Sodium Chloride 250 ml @ 250 mls/hr ONCE ONCE IV ; Start 07/14/17 at 03:30; Stop 07/14/17 at 04:29; Status UNV Hydromorphone HCl (Dilaudid Pf Inj) 0.5 mg Q4H PRN IV PAIN 1-10 Last administered on 07/16/17 10:32; Start 07/14/17 at 04:00; Stop 07/16/17 at 12:44 ; Status DC Fentanyl Citrate 250 ml @ 5 mls/hr Q24H PRN IV SEDATION Last administered on 04:29; Start 07/14/17 at 03:56; Stop 07/16/17 at 12:44; Status DC Hydralazine HCl (Apresoline Inj) 20 mg Q4H PRN IV PUSH SBP>160, DBP>90 Last administered on 07/21/17 04:28; Start 07/14/17 at 04:00 Pharmacy Profile Note 0 ml @ 0 mls/hr UNSCH OTHER ; Start 07/14/17 at 05:30; Stop 07/14/17 at 05:30; Status DC Vancomycin HCl 1000 mg/Sodium Chloride 250 ml @ 250 mls/hr ONCE ONCE IV ; Start 07/14/17 at 05:30; Stop 07/14/17 at 06:29; Status UNV Dextrose (D50w (Vial) Inj) 50 ml UNSCH PRN IV HYPOGLYCEMIA-SEE COMMENTS; Start 07/14/17 at 05:30; Stop 07/14/17 at 10:45; Status DC Glucagon (Glucagon Inj) 1 mg UNSCH PRN OTHER HYPOGLYCEMIA-SEE COMMENTS; Start 07/14/17 at 05:30; Stop 07/14/17 at 10:45; Status DC Insulin Aspart (NovoLOG SUPPLEMENTAL SCALE) 1 ACHS SLIDING SCALE SQ Last administered on 07/14/17 06:42; Start 07/14/17 at 07:00; Stop 07/14/17 at 10:10 ; Status DC Vancomycin HCl 1500 mg/Sodium Chloride 515 ml @ 250 mls/hr Q12H IV Last administered on 07/16/17 06:01; Start 07/14/17 at 14:00; Stop 07/16/17 at 08:58 ; Status DC Miscellaneous Information SPECIFIC LAB TO BE DRAWN:VANCOMYCIN TROUGH DATE TO... ONCE ONCE .XX ; Start 07/16/17 at 01:45; Stop 07/16/17 at 01:46; Status DC Sodium Chloride 1,000 ml @ 84 mls/hr [id number] IV Last administered on 00:19; Start 07/14/17 at 11:00; Stop 07/16/17 at 12:44; Status DC Dextrose (D50w (Vial) Inj) 50 ml UNSCH PRN IV HYPOGLYCEMIA-SEE COMMENTS; Start 07/14/17 at 10:15; Stop 07/17/17 at 09:56; Status DC Glucagon (Glucagon Inj) 1 mg UNSCH PRN OTHER HYPOGLYCEMIA-SEE COMMENTS; Start 07/14/17 at 10:15; Stop 07/17/17 at 09:56; Status DC Insulin Human Regular (NovoLIN R SUPPLEMENTAL SCALE) 1 Q4H SQ Last administered on 07/15/17 06:48; Start 07/14/17 at 11:00; Stop 07/16/17 at 17:20 ; Status DC Potassium Chloride 100 ml @ 50 mls/hr Q2H PRN IV For Potassium 2.8 - 3.2 mEq/ L Last administered on 07/18/17 16:54; Start 07/14/17 at 10:15; Stop 07/23/17 at 13:47; Status DC Potassium Chloride 100 ml @ 50 mls/hr Q2H PRN IV For Potassium 2.8 - 3.2 mEq/L ; Start 07/14/17 at 10:15; Stop 07/23/17 at 13:47; Status DC Potassium Bicarb/ Potassium Chloride (K-Lyte Cl Eff) 50 meq UNSCH PRN PO For Potassium 3.3 - 3.5 mEq/L; Start 07/14/17 at 10:15; Stop 07/23/17 at 13:47; Status DC Potassium Chloride 100 ml @ 25 mls/hr UNSCH PRN IV For Potassium 3.3 - 3.5 mEq /L Last administered on 07/20/17 17:13; Start 07/14/17 at 10:15; Stop 07/23/17 at 13:47; Status DC Potassium Chloride 100 ml @ 50 mls/hr Q2H PRN IV For Potassium 3.3 - 3.5 mEq/L ; Start 07/14/17 at 10:15; Stop 07/23/17 at 13:47; Status DC Magnesium Sulfate 4 gm/Sodium Chloride 100 ml @ 50 mls/hr UNSCH PRN IV For Magnesium 0.9 - 1.1 mg/dL; Start 07/14/17 at 10:15; Stop 07/23/17 at 13:47; Status DC Magnesium Oxide (Mag-Ox) 800 mg UNSCH PRN PO For Magnesium 1.2 - 1.6 mg/dL; Start 07/14/17 at 10:15; Stop 07/23/17 at 13:47; Status DC Magnesium Sulfate 2 gm/Sodium Chloride 100 ml @ 50 mls/hr UNSCH PRN IV For Magnesium 1.2 - 1.6 mg/dL; Start 07/14/17 at 10:15; Stop 07/23/17 at 13:47; Status DC Potassium Phosphate (K-Phos) 2,000 mg Q4H PRN PO For Phosphorus < 2.5 mg/dL; Start 07/14/17 at 10:15; Stop 07/23/17 at 13:47; Status DC Sodium Phosphate 30 mmol/Sodium Chloride 250 ml @ 42 mls/hr UNSCH PRN IV For Phosphorus < 2.5 mg/dL; Start 07/14/17 at 10:15; Stop 07/23/17 at 13:47; Status DC Potassium Phosphate (K-Phos) 2,000 mg UNSCH PRN PO/TUBE SEE LABEL COMMENTS; Start 07/14/17 at 10:15; Stop 07/23/17 at 13:47; Status DC Potassium Phosphate 30 mmol/ Sodium Chloride 260 ml @ 42 mls/hr UNSCH PRN IV SEE LABEL COMMENTS; Start 07/14/17 at 10:15; Stop 07/23/17 at 13:47; Status DC Cyclobenzaprine HCl (Flexeril) 10 mg Q8H PRN PO muscle spasms Last administered on 07/23/17 09:51; Start 07/15/17 at 06:15 Famotidine (Pepcid Liq) 20 mg BID NG Last administered on 07/24/17 20:09; Start 07/15/17 at 09:00 Hydromorphone HCl (Dilaudid Pf Inj) 0.5 mg ONCE ONCE IV Last administered on 15:00; Start 07/15/17 at 15:00; Stop 07/15/17 at 15:01; Status DC Hydromorphone HCl (Dilaudid Pf Inj) 0.5 mg NOW ONCE IV PUSH ; Start 07/15/17 at 15:15; Stop 07/15/17 at 15:16; Status DC Furosemide (Lasix Inj) 40 mg STK-MED ONCE .ROUTE Last administered on 07:12; Start 07/16/17 at 07:12; Stop 07/16/17 at 07:13; Status DC Diltiazem HCl (Cardizem Inj) 25 mg STK-MED ONCE .ROUTE Last administered on 07:21; Start 07/16/17 at 07:21; Stop 07/16/17 at 07:22; Status DC Magnesium Sulfate/ Dextrose 100 ml @ 100 mls/hr Q1H IV Last administered on 08:45; Start 07/16/17 at 07:45; Stop 07/16/17 at 09:44; Status DC Potassium Chloride 100 ml @ 50 mls/hr Q2H IV Last administered on 07/16/17 09 :45; Start 07/16/17 at 07:45; Stop 07/16/17 at 11:44; Status DC Vancomycin HCl 1500 mg/Sodium Chloride 515 ml @ 250 mls/hr Q18H IV Last administered on 07/25/17 06:21; Start 07/17/17 at 00:00 Miscellaneous Information SPECIFIC LAB TO BE DRAWN:VANCO TROUGH DATE... ONCE ONCE .XX Last administered on 07/18/17 11:45; Start 07/18/17 at 11:45; Stop 07/18 at 11:46; Status DC Potassium Chloride (KCl) 40 meq NOW ONCE PO Last administered on 07/16/17 10: 32; Start 07/16/17 at 11:00; Stop 07/16/17 at 11:01; Status DC Hydromorphone HCl (Dilaudid Pf Inj) 0.5 mg Q2H PRN IV PAIN 6-10 or not taking po Last administered on 07/19/17 07:32; Start 07/16/17 at 14:00; Stop 07/19/17 at 07:52; Status DC Oxycodone HCl (Roxicodone) 5 mg Q4H PRN PO pain 1-5 Last administered on 19:30; Start 07/16/17 at 14:00; Stop 07/24/17 at 12:37; Status DC Diltiazem HCl (Cardizem) 60 mg Q6H PO Last administered on 07/25/17 08:47; Start 07/17/17 at 10:00 Dextrose (D50w (Vial) Inj) 50 ml UNSCH PRN IV HYPOGLYCEMIA-SEE COMMENTS; Start 07/17/17 at 09:00 Glucagon (Glucagon Inj) 1 mg UNSCH PRN OTHER HYPOGLYCEMIA-SEE COMMENTS; Start 07/17/17 at 09:00 Insulin Human Regular (NovoLIN R SUPPLEMENTAL SCALE) 1 Q6H SQ ; Start 07/17/17 at 10:00 Aztreonam 2000 mg/ Sodium Chloride 100 ml @ 200 mls/hr Q8H IV ; Start 07/17/17 at 10:00; Stop 07/17/17 at 10:02; Status DC Vancomycin HCl (VANCOMYCIN for oral use only) 125 mg QID PO Last administered on 07/24/17 20:07; Start 07/17/17 at 13:00; Stop 07/31/17 at 12:59 Hydromorphone HCl (Dilaudid Pf Inj) 0.5 mg ONCE ONCE IV PUSH Last administered on 07/17/17 14:40; Start 07/17/17 at 14:30; Stop 07/17/17 at 14:33; Status DC Hydralazine HCl (Apresoline) 50 mg Q8HR PO Last administered on 07/25/17 04:12 ; Start 07/18/17 at 09:30 Hydromorphone HCl (Dilaudid Pf Inj) 1 mg Q2H PRN IV PAIN 6-10 or not taking po Last administered on 07/24/17 15:43; Start 07/19/17 at 09:00; Stop 07/24/17 at 19: 32; Status DC Bumetanide (Bumex Inj) 1 mg ONCE ONCE IV PUSH Last administered on 07/20/17 08 :37; Start 07/20/17 at 08:00; Stop 07/20/17 at 08:01; Status DC Potassium Bicarb/ Potassium Chloride (K-Lyte Cl Eff) 50 meq ONCE ONCE PO Last administered on 07/21/17 09:35; Start 07/21/17 at 09:00; Stop 07/21/17 at 09: 01; Status DC Potassium Chloride 100 ml @ 100 mls/hr Q1H IV Last administered on 07/21/17 20 :41; Start 07/21/17 at 09:00; Stop 07/21/17 at 11:59; Status DC Miscellaneous Information SPECIFIC LAB TO BE DRAWN:VANCOMYCIN TROUGH DATE TO... ONCE ONCE .XX Last administered on 07/22/17 05:53; Start 07/22/17 at 05:45; Stop 07/22/17 at 05:46; Status DC Heparin Sodium (Porcine) (Heparin Inj) 10,000 units STK-MED ONCE .ROUTE Last administered on 07/21/17 13:44; Start 07/21/17 at 13:44; Stop 07/21/17 at 13:45; Status DC Vancomycin HCl (Vancomycin Inj) 1,000 mg STK-MED ONCE .ROUTE Last administered on 07/21/17 14:43; Start 07/21/17 at 14:10; Stop 07/21/17 at 14:11; Status DC Iohexol (Omnipaque 350 Inj) 50 ml ONCE ONCE .XX ; Start 07/21/17 at 14:44; Stop 07/21/17 at 14:45; Status DC Fentanyl Citrate (fentaNYL INJ) 100 mcg STK-MED ONCE .ROUTE ; Start 07/21/17 at 15:57; Stop 07/21/17 at 15:58; Status DC Miscellaneous Information ALL NURSING DEPARTME... UNSCH PRN .XX SEE LABEL COMMENTS; Start 07/21/17 at 15:49; Stop 07/22/17 at 15:48; Status DC Miscellaneous Information ALL NURSING DEPARTME... UNSCH PRN .XX SEE LABEL COMMENTS; Start 07/21/17 at 15:49; Stop 07/22/17 at 15:48; Status Cancel Potassium Chloride (KCl) 40 meq ONCE ONCE PO Last administered on 07/23/17 18: 59; Start 07/23/17 at 18:45; Stop 07/23/17 at 18:53; Status DC Lisinopril (Prinivil) 10 mg DAILY PO Last administered on 07/24/17 09:02; Start 07/23/17 at 18:45; Stop 07/24/17 at 19:25; Status DC Miscellaneous Information SPECIFIC LAB TO BE KARLA... ONCE ONCE .XX Last administered on 07/25/17 05:45; Start 07/25/17 at 05:45; Stop 07/25/17 at 05:46; Status DC Bupivacaine HCl (Marcaine Pf 0.5% Inj) 30 ml STK-MED ONCE .ROUTE ; Start at 09:24; Stop 07/24/17 at 09:25; Status DC Lidocaine HCl (Xylocaine 1% Inj (50 ml)) 50 ml STK-MED ONCE .ROUTE ; Start at 09:24; Stop 07/24/17 at 09:25; Status DC Sodium Chloride (NS Flush) 2 ml UNSCH PRN IV FLUSH FLUSH AFTER USING IV ACCESS ; Start 07/24/17 at 11:00 Sodium Chloride (NS Flush) 2 ml BID IV FLUSH Last administered on 07/25/17 08: 52; Start 07/24/17 at 21:00 Miscellaneous Information (Post-op Orders (for Pharmacy)) STAT ONCE XX ; Start 07/24/17 at 11:00; Stop 07/24/17 at 12:36; Status DC Hydromorphone HCl (Dilaudid Pf Inj) 1 mg Q3H PRN IV BREAKTHROUGH PAIN Last administered on 07/25/17 08:48; Start 07/24/17 at 11:00 Hydromorphone HCl (Dilaudid) 1 mg Q4H PRN PO PAIN SCALE 3 TO 5; Start 07/24/17 at 11:00; Stop 07/24/17 at 19:32; Status DC Hydromorphone HCl (Dilaudid) 2 mg Q4H PRN PO PAIN SCALE 6 TO 10 Last administered on 07/24/17 17:48; Start 07/24/17 at 11:00; Stop 07/24/17 at 19:32; Status DC Naloxone HCl (Narcan Inj) 0.4 mg UNSCH PRN IV SEE LABEL COMMENTS; Start at 11:00 Hydromorphone HCl (*DILAUDID PF INJ PERIprocedural ONLY) 1 mg STK-MED ONCE .ROUTE Last administered on 07/24/17 11:26; Start 07/24/17 at 11:26; Stop at 11:27; Status DC Miscellaneous Information ALL NURSING DEPARTME... UNSCH PRN .XX SEE LABEL COMMENTS; Start 07/24/17 at 10:55; Stop 07/25/17 at 10:54 Vancomycin HCl (Vancomycin Inj) 500 mg STK-MED ONCE .ROUTE Last administered on 07/24/17 13:59; Start 07/24/17 at 11:54; Stop 07/24/17 at 11:55; Status DC Vancomycin HCl (Vancomycin Inj) 1,000 mg STK-MED ONCE .ROUTE ; Start 07/24/17 at 11:55; Stop 07/24/17 at 11:56; Status DC Hydromorphone HCl (*DILAUDID PF INJ PERIprocedural ONLY) 1 mg STK-MED ONCE .ROUTE Last administered on 07/24/17 13:20; Start 07/24/17 at 13:20; Stop at 13:21; Status DC Lisinopril (Prinivil) 20 mg DAILY PO Last administered on 07/25/17 08:46; Start 07/25/17 at 09:00 Oxycodone HCl (Roxicodone) 10 mg Q4H PRN PO pain 6-10 Last administered on 06:21; Start 07/24/17 at 19:30 Oxycodone HCl (Roxicodone) 5 mg Q4H PRN PO pain 3-5; Start 07/24/17 at 19:30 Other Results Laboratory Tests Test 07/25/17 05:40 Blood Urea Nitrogen 14 MG/DL Creatinine 0.77 MG/DL Random Glucose 151 MG/DL Calcium Level 7.9 MG/DL Sodium Level 137 MEQ/L Potassium Level 3.7 MEQ/L Chloride Level 102 MEQ/L Carbon Dioxide Level 29.4 MEQ/L Anion Gap 6 MEQ/L Estimat Glomerular Filtration Rate 99 ML/MIN Microbiology Date/Time Source Procedure Growth Status 07/24/17 10:15 Wound Foot Fungal Smear - Final NO FUNGAL ELEMENTS SEEN. Resulted 07/24/17 10:15 Wound Foot Fungal Culture Pending Resulted 07/24/17 10:15 Wound Foot Acid Fast Stain Pending Received 07/24/17 10:15 Wound Foot Mycobacterial Culture Pending Received 07/24/17 10:15 Wound Foot Gram Stain - Final Resulted 07/24/17 10:15 Wound Culture - Preliminary S. Aureus Mrsa Resulted Exam-Podiatry Constitutional General appearance: comfortable Nutritional status: normal Orientation: alert and oriented x3 Dermatological Exam Skin Temp - Right: Within Normal Limits Skin Texture - Right: Within Normal Limits Skin Elasticity - Right: Within Normal Limits Skin Tugor - Right: Within Normal Limits Hair Growth - Right: Within Normal Limits Pigmentation - Right: Within Normal Limits Skin Temp - Left: Within Normal Limits Skin Texture - Left: Within Normal Limits Skin Elasticity - Left: Within Normal Limits Skin Tugor - Left: Within Normal Limits Hair Growth - Left: Within Normal Limits Pigmentation - Left: Within Normal Limits Other: Scars, Surgery,Injury Amputation site is covered with pressure wound VAC. No excessive bleeding noted. No cellulitis noted Vascular/Lymphatic Exam R Dorsails Pedis: Doppler L Dorsails Pedis: Doppler R Posterior Tibial: Doppler L Posterior Tibial: Doppler Neurologic Exam Present on right: Tingling, Paraesthesia Present on left: Tingling, Paraesthesia Musculoskeletal Exam Details Excision of the first ray of the left foot Assessment & Plan Diagnosis: (1) Diabetes mellitus with peripheral angiopathy with gangrene ICD Codes: E11.52 - Type 2 diabetes mellitus with diabetic peripheral angiopathy with gangrene Status: Resolved (2) Foot ulceration ICD Codes: L97.509 - Non-pressure chronic ulcer of other part of unspecified foot with unspecified severity Status: Acute A/P PLAN: Continue negative pressure wound therapy VAC. I will change the dressing tomorrow or Thursday. Patient will require long-term wound care. Dr. Anand's note is reviewed and appreciated. Problem Qualifiers (1) Diabetes mellitus with peripheral angiopathy with gangrene: Qualified Codes: E11.52 - Type 2 diabetes mellitus with diabetic peripheral angiopathy with gangrene (2) Foot ulceration: Qualified Codes: L97.523 - Non-pressure chronic ulcer of other part of left foot with necrosis of muscle Gamal Arvizu DPM Jul 25, 2017 10:09
[2017-07-25] MEDS: LACTOBACILLUS ACIDOPHILUS TAB PO SCH ×3 (12:00→17:00)
[2017-07-25] MEDS: VANCOMYCIN 500 MG VIAL (FOR ORAL USE ONLY) PO SCH ×4 (12:28→20:11)
[2017-07-25] MEDS: CYCLOBENZAPRINE HCL 10 MG TAB PO PRN (15:03)
--- NOTE | 2017-07-25 18:07 | HHI.PR ---
Subjective Remarks Patient feels better today no fever or chills, also the pain in his foot is better however its change in nature more dull right now Objective Vitals Vital Signs Date Time Temp Pulse Resp B/P (MAP) Pulse Ox O2 Delivery O2 Flow Rate FiO2 07/25/17 17:18 19 07/25/17 16:00 97.0 66 18 166/74 (104) 93 07/25/17 14:00 18 07/25/17 12:00 98.5 72 18 172/76 (108) 93 07/25/17 08:00 98.4 75 16 162/98 (119) 95 07/25/17 04:00 98.8 76 20 181/83 (115) 95 07/25/17 00:00 Room Air 07/25/17 00:00 98.2 75 20 180/82 (114) 94 07/24/17 20:00 98.0 72 20 159/74 (102) 95 07/24/17 20:00 Room Air 07/24/17 20:00 71 I/O 07/24/17 07/24/17 07/24/17 07/25/17 07/25/17 07/25/17 07:00 15:00 23:00 07:00 15:00 23:00 Intake Total 520 ml 360 ml 240 ml Output Total 1800 ml 100 ml 700 ml 1550 ml Balance -1280 ml -100 ml -340 ml -1310 ml Intake Oral 520 ml 360 ml 240 ml Output Urine Total 1800 ml 700 ml 1550 ml Estimated Blood Loss 100 ml # Bowel Movements 1 1 0 Result Diagram: 07/23/17 0854 07/25/17 0540 Objective Remarks - GENERAL: This is a well-nourished, well-developed patient, in no apparent distress. SKIN: No rashes, warm and dry HEAD: Atraumatic. Normocephalic. EYES: Pupils equal round and reactive. Extraocular motions intact. No scleral icterus. ENT: Nose without bleeding, or drainage, Airway patent. NECK: Trachea midline. Supple CARDIOVASCULAR: Regular rate and rhythm without murmurs, gallops, or rubs. RESPIRATORY: Fair air entry bilaterally. No wheezes, rales, or rhonchi. GASTROINTESTINAL: Abdomen soft, non-tender, nondistended. Positive bowel sounds MUSCULOSKELETAL: Left foot first toe amputation, wound VAC in place NEUROLOGICAL: Awake and alert. Moves all extremity. Normal speech.no focal neurological deficit A/P Assessment and Plan 07/24: Blood pressure improved but still not optimized, increase lisinopril to 20 mg daily, patient on large doses of Dilaudid will DC and keep 1 mg every 3 hours for breakthrough, will add OxyContin 5 mg and 10 mg every 4 hours for pain scale 07/25: Blood pressure still not optimized will increase lisinopril to 20 twice a day, and monitor blood pressure, appreciate Dr. 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 Monitor for signs of infections ( Fever, WBC) WBC is trending down -Follow up on BC and urine cx from 07/18: NGTD - Vascular surgery is following- Dr. Anand Continue Cardizem 60mg Q6, Hydralazine 50mg Q8, on Hydralazine PRN, added lisinopril Monitor CBC, on FESO4 325mg BID S/P transfusion 2 units PRBC ( Hgb 6.8) On SSI with accuchecks Q6 DVT GI prophylaxis - Teds SCDs - Subcutaneous heparin - Selina Hammond MD Jul 25, 2017 18:07
[2017-07-25] MEDS: LISINOPRIL 20 MG TAB PO SCH (20:12)
[2017-07-25] MEDS: ATORVASTATIN 40 MG TAB PO SCH (20:12)
[2017-07-25] MEDS: DONEPEZIL HCL 5 MG TAB PO SCH (20:12)
[2017-07-25] MEDS: LATANOPROST 0.005% OPHT SOLN 2.5 ML BTL EACH EYE SCH (20:16)
[2017-07-26] VITALS (7 sets, daily range): BP systolic 120–196; BP diastolic 61–85; PULSE 48–76; RESP 16–20; TEMP 96.7–99.6; O2SAT 93–99
[2017-07-26] MEDS: VANCOMYCIN INJ 1,500 MG in SODIUM CHLORID 0.9% 500 ML INJ 500 ML IV SCH ×2 (00:02→17:42)
[2017-07-26] MEDS: HYDROmorphone HCL PF 1 MG/ML VIAL IV PRN ×5 (00:03→22:32)
[2017-07-26] MEDS: CHLORHEXIDINE GLUCONATE 2 % 1 PACK (2 CLOTHS) TOP SCH (04:00)
[2017-07-26] MEDS: INSULIN NovoLIN REGULAR SUPPLEMENTAL SCALE SQ SCH ×4 (04:00→21:03)
[2017-07-26] MEDS: DILTIAZEM HCL 60 MG TAB PO SCH ×4 (04:31→21:01)
[2017-07-26] MEDS: SODIUM CHLORIDE 0.9% FLUSH 10 ML FLUSH IV FLUSH PRN (04:32)
[2017-07-26] MEDS: hydrALAZINE HCL 50 MG TAB PO SCH ×3 (05:53→21:01)
[2017-07-26] MEDS: HEPARIN SODIUM - SQ 10,000 UNITS/ML VIAL SQ SCH ×3 (05:53→21:03)
[2017-07-26] MEDS: ARTIFICIAL TEARS OPTH SOLN 15 ML BTL EACH EYE SCH ×3 (08:43→17:41)
[2017-07-26] MEDS: DOCUSATE SODIUM 50 MG/SENNA 8.6 MG TAB PO SCH ×2 (08:44→21:00)
[2017-07-26] MEDS: BUDESONIDE-FORMOTEROL 80/4.5 MCG INHALER INH SCH ×2 (08:44→21:00)
[2017-07-26] MEDS: LACTOBACILLUS ACIDOPHILUS TAB PO SCH ×3 (08:49→17:41)
[2017-07-26] MEDS: LISINOPRIL 20 MG TAB PO SCH (08:50)
[2017-07-26] MEDS: FAMOTIDINE 40 MG/5 ML LIQ 50 ML BTL NG SCH ×2 (08:50→21:00)
[2017-07-26] MEDS: FERROUS SULFATE 325 MG (65 MG ELEMENTAL IRON) TAB PO SCH ×2 (08:50→17:41)
[2017-07-26] MEDS: CITALOPRAM HYDROBROMIDE 20 MG TAB PO SCH (08:50)
[2017-07-26] MEDS: hydrALAZINE HCL 20 MG/ML VIAL IV PUSH PRN (08:50)
[2017-07-26] MEDS: ASCORBIC ACID 500 MG TAB PO SCH (08:50)
[2017-07-26] MEDS: MULTIVITAMINS/MINERALS THERAPEUTIC TAB PO SCH (08:50)
[2017-07-26] MEDS: SODIUM CHLORIDE 0.9% FLUSH 10 ML FLUSH IV FLUSH SCH ×2 (08:51→21:08)
[2017-07-26] MEDS: VANCOMYCIN 500 MG VIAL (FOR ORAL USE ONLY) PO SCH ×4 (08:51→21:05)
--- NOTE | 2017-07-26 09:29 | PD.POD ---
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 Patient underwent an arteriogram with intervention by Dr. Anand. 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 A negative pressure wound therapy VAC was applied. VAC appears to be functioning well. Past Med/Surg/Social History Past Medical History Endocrine: REPORTS HX OF: Diabetes mellitus, Graves disease Cardiovascular: REPORTS HX OF: Hypertension, Peripheral vascular dz Gastrointestinal: REPORTS HX OF: Other GI history (prior GI bleed, pt finished c. diff treatment on friday 05/25) Musculoskeletal: REPORTS HX OF: Other musculoskeletal hx (L. shoulder pain worsen after his arm was injured in latest hospitalization) Cancer/Hematology: REPORTS HX OF: Anemia Past Surgical History Gastrointestinal: DENIES HX OF: Colectomy, total Musculoskeletal: REPORTS HX OF: Other musculoskeletal srg (resection of the first metatarsal head and sesamoids) Social History Smoking Status: Unknown If Ever Smoked Review of Systems Notes No changes in his 14 point review of systems exam since yesterday Objective Vital Signs Vital Signs Date Time Temp Pulse Resp B/P (MAP) Pulse Ox O2 Delivery O2 Flow Rate FiO2 07/26/17 08:00 97.8 67 18 196/85 (122) 94 07/26/17 06:38 20 07/26/17 05:00 20 07/26/17 04:27 96.7 69 20 182/77 (112) 93 07/26/17 01:22 97.3 59 16 167/77 (107) 93 07/25/17 20:00 98.6 59 16 168/72 (104) 95 07/25/17 20:00 64 07/25/17 16:00 97.0 66 18 166/74 (104) 93 07/25/17 12:00 98.5 72 18 172/76 (108) 93 Coded Allergies: Sulfa (Sulfonamide Antibiotics) (Verified Allergy, Severe, Anaphylaxis, ) metronidazole (Verified Allergy, Severe, Fever, colitis, 07/07/17) While being treated for Cdiff. Doubt if true allergy. penicillin G (Verified Allergy, Severe, Anaphylaxis, 07/07/17) sulfamethoxazole (Verified Allergy, Severe, Anaphylaxis, 07/07/17) trimethoprim (Verified Allergy, Severe, Anaphylaxis, 07/07/17) erythromycin base (Verified Allergy, Intermediate, Rash, 07/07/17) aspirin (Verified Allergy, Unknown, 07/07/17) oxycodone (Verified Allergy, Unknown, 07/07/17) PT states oxycodone is fine, but percodan is too strong MRI PRECAUTION (Verified Adverse Reaction, Severe, BLADDER STIMULATOR, ) BRAIN ONLY ON RECEIVE ONLY COIL, P.O. 01/11/17, DML acetaminophen (Verified Adverse Reaction, Unknown, Psychosis, 07/07/17) meperidine (Verified Adverse Reaction, Unknown, Psychosis, 07/07/17) morphine (Verified Adverse Reaction, Unknown, Psychosis, 07/07/17) Uncoded Allergies: surgical tape (Allergy, Severe, 12/15/13) Medications and IVs Current Medications Etomidate (Amidate Inj) 40 mg STK-MED ONCE .ROUTE ; Start 07/14/17 at 00:32; Stop 07/14/17 at 00:33; Status DC Propofol 100 ml @ As Directed STK-MED ONCE .ROUTE ; Start 07/14/17 at 00:35; Stop 07/14/17 at 00:36; Status DC IV Flush (NS Flush) 2 ml UNSCH PRN IV FLUSH FLUSH AFTER USING IV ACCESS; Start 07/14/17 at 00:45; Stop 07/14/17 at 03:47; Status DC Vancomycin HCl 1450 mg/Sodium Chloride 514.5 ml @ 250 mls/hr ONCE ONCE IV Last administered on 07/14/17 02:36; Start 07/14/17 at 01:30; Stop 07/14/17 at 03:33; Status DC Aztreonam 2000 mg/ Sodium Chloride 100 ml @ 200 mls/hr ONCE ONCE IV Last administered on 07/14/17 02:08; Start 07/14/17 at 01:30; Stop 07/14/17 at 01:59 ; Status DC Racepinephrine (Racepinephrine 2.25% Neb) 0.5 ml ONCE ONCE NEB Last administered on 07/14/17 01:36; Start 07/14/17 at 01:30; Stop 07/14/17 at 01:31 ; Status DC Methylprednisolone Sodium Succinate (SoluMEDROL INJ) 60 mg ONCE ONCE IVP Last administered on 07/14/17 01:44; Start 07/14/17 at 01:30; Stop 07/14/17 at 01:31 ; Status DC Albuterol/ Ipratropium (Duoneb Neb) 1 ampule Q15M INH Last administered on 07/14 01:48; Start 07/14/17 at 01:30; Stop 07/14/17 at 02:01; Status DC Etomidate (Amidate Inj) 30 mg ONCE ONCE IV PUSH Last administered on 02:09; Start 07/14/17 at 02:00; Stop 07/14/17 at 02:02; Status DC Rocuronium [place] (Zemuron Inj) 60 mg BOLUS ONCE IV Last administered on 07/14 02:08; Start 07/14/17 at 02:00; Stop 07/14/17 at 02:02; Status DC Propofol 100 ml @ 2.85 mls/hr Q35H6M PRN IV Ordered RASS Last administered on 01:37; Start 07/14/17 at 02:02; Stop 07/16/17 at 12:44; Status DC Midazolam HCl (Versed Inj) 5 mg STK-MED ONCE .ROUTE ; Start 07/14/17 at 02:30; Stop 07/14/17 at 02:31; Status DC Sodium Chloride 1,000 ml @ 999 mls/hr BOLUS ONCE IV Last administered on 07/14 03:32; Start 07/14/17 at 03:00; Stop 07/14/17 at 04:00; Status DC Midazolam HCl (Versed Inj) 5 mg ONCE ONCE IV PUSH Last administered on 03:06; Start 07/14/17 at 03:15; Stop 07/14/17 at 03:16; Status DC Midazolam HCl 100 ml @ 2 mls/hr Q50H PRN IV SEDATION Last administered on 03:39; Start 07/14/17 at 03:01; Stop 07/15/17 at 06:31; Status DC Midazolam HCl 100 ml @ As Directed STK-MED ONCE .ROUTE ; Start 07/14/17 at 03: 17; Stop 07/14/17 at 03:18; Status DC Aspirin (Aspirin Chew) 81 mg DAILY CHEW Last administered on 07/20/17 08:37; Start 07/14/17 at 09:00; Status Future Hold Atorvastatin Calcium (Lipitor) 40 mg HS PO Last administered on 07/25/17 20:12 ; Start 07/14/17 at 21:00 Citalopram Hydrobromide (CeleXA) 60 mg DAILY PO Last administered on 07/26/17 08:50; Start 07/14/17 at 09:00 Cyclobenzaprine HCl (Flexeril) 10 mg Q8HR PO Last administered on 07/15/17 04: 21; Start 07/14/17 at 06:00; Stop 07/15/17 at 06:31; Status DC Donepezil HCl (Aricept) 10 mg HS PO Last administered on 07/25/17 20:12; Start 07/14/17 at 21:00 Gabapentin (Neurontin) 100 mg TID PO ; Start 07/14/17 at 09:00; Stop 07/15/17 at 06:31; Status DC Lactobacillus Acidophilus (Lactinex) 1 tab TIDAC PO Last administered on 08:49; Start 07/14/17 at 08:00 Ascorbic Acid (Vitamin C) 1,000 mg DAILY PO Last administered on 07/26/17 08: 50; Start 07/14/17 at 09:00 Ferrous Sulfate (Ferrous Sulfate) 325 mg BIDPC PO Last administered on 08:50; Start 07/14/17 at 09:00 Budesonide/ Formoterol Fumarate (Symbicort 80-4.5 Mcg Inh) 1 puff BID INH Last administered on 07/25/17 08:52; Start 07/14/17 at 09:00 Multivitamins/ Minerals Therapeutic (Theragran M Tab) 1 tab DAILY PO Last administered on 07/26/17 08:50; Start 07/14/17 at 09:00 Latanoprost (Xalatan 0.005% Opth Soln) 1 drop HS EACH EYE Last administered on 07/25/17 20:16; Start 07/14/17 at 21:00 Sodium Chloride (NS Flush) 2 ml UNSCH PRN .XX FLUSH AFTER USING IV ACCESS; Start 07/14/17 at 03:30; Stop 07/24/17 at 12:35; Status DC Sodium Chloride (NS Flush) 2 ml BID .XX Last administered on 07/23/17 21:20; Start 07/14/17 at 09:00; Stop 07/24/17 at 12:35; Status DC Acetaminophen (Tylenol) 650 mg Q6H PRN PO FEVER >101F; Start 07/14/17 at 03:30 ; Stop 07/14/17 at 03:47; Status DC Morphine Sulfate (Morphine Inj) 2 mg Q2H PRN IV PAIN SCALE 6 TO 10; Start 07/14 at 03:30; Stop 07/14/17 at 03:47; Status DC Famotidine (Pepcid Inj) 20 mg Q12HR IV PUSH Last administered on 07/14/17 20: 45; Start 07/14/17 at 09:00; Stop 07/15/17 at 06:31; Status DC Midazolam HCl (Versed Inj) 2 mg Q1H PRN IV SEDATION; Start 07/14/17 at 03:30; Stop 07/15/17 at 06:31; Status DC Artificial Tears (Tears Naturale Opth Soln) 1 drop TID EACH EYE Last administered on 07/25/17 12:28; Start 07/14/17 at 09:00 Ondansetron HCl (Zofran Inj) 4 mg Q6H PRN IV NAUSEA OR VOMITING; Start at 03:30 Albuterol/ Ipratropium (Duoneb Neb) 1 ampule Q6HR NEB INH Last administered on 07/17/17 07:39; Start 07/14/17 at 04:00; Stop 07/18/17 at 03:59; Status DC Albuterol/ Ipratropium (Duoneb Neb) 1 ampule Q2HR NEB PRN INH WHEEZING Last administered on 07/21/17 02:00; Start 07/14/17 at 03:30 Heparin Sodium (Porcine) (Heparin Inj) 5,000 units Q8H SQ Last administered on 07/26/17 05:53; Start 07/14/17 at 06:00 Miscellaneous Information 1 Q361D XX ; Start 07/14/17 at 03:30 Chlorhexidine Gluconate (Chlorhexidine 2% Cloth) Taper DAILY@04 TOP Last administered on 07/21/17 01:37; Start 07/14/17 at 04:00; Stop 07/10/18 at 03:59 Chlorhexidine Gluconate (Chlorhexidine 2% Cloth) 3 pack UNSCH PRN TOP HYGIENIC CARE; Start 07/14/17 at 03:30 Senna/Docusate Sodium (Medina-Colace) 1 tab BID PO Last administered on 07/24/17 09:03; Start 07/14/17 at 09:00 Magnesium Hydroxide (Milk Of Magnesia Liq) 30 ml Q12H PRN PO MILD - MODERATE CONSTIPATION; Start 07/14/17 at 03:30 Sennosides (Senokot) 17.2 mg Q12H PRN PO MODERATE - SEVERE CONSTIPATION; Start 07/14/17 at 03:30 Bisacodyl (Dulcolax Supp) 10 mg DAILY PRN RECTAL SEVERE CONSITIPATION; Start at 03:30 Lactulose (Lactulose Liq) 30 ml DAILY PRN PO SEVERE CONSITIPATION; Start at 03:30 Pharmacy Profile Note 0 ml @ 0 mls/hr UNSCH OTHER ; Start 07/14/17 at 03:30 Vancomycin HCl 1000 mg/Sodium Chloride 250 ml @ 250 mls/hr ONCE ONCE IV ; Start 07/14/17 at 03:30; Stop 07/14/17 at 04:29; Status UNV Hydromorphone HCl (Dilaudid Pf Inj) 0.5 mg Q4H PRN IV PAIN 1-10 Last administered on 07/16/17 10:32; Start 07/14/17 at 04:00; Stop 07/16/17 at 12:44 ; Status DC Fentanyl Citrate 250 ml @ 5 mls/hr Q24H PRN IV SEDATION Last administered on 04:29; Start 07/14/17 at 03:56; Stop 07/16/17 at 12:44; Status DC Hydralazine HCl (Apresoline Inj) 20 mg Q4H PRN IV PUSH SBP>160, DBP>90 Last administered on 07/26/17 08:50; Start 07/14/17 at 04:00 Pharmacy Profile Note 0 ml @ 0 mls/hr UNSCH OTHER ; Start 07/14/17 at 05:30; Stop 07/14/17 at 05:30; Status DC Vancomycin HCl 1000 mg/Sodium Chloride 250 ml @ 250 mls/hr ONCE ONCE IV ; Start 07/14/17 at 05:30; Stop 07/14/17 at 06:29; Status UNV Dextrose (D50w (Vial) Inj) 50 ml UNSCH PRN IV HYPOGLYCEMIA-SEE COMMENTS; Start 07/14/17 at 05:30; Stop 07/14/17 at 10:45; Status DC Glucagon (Glucagon Inj) 1 mg UNSCH PRN OTHER HYPOGLYCEMIA-SEE COMMENTS; Start 07/14/17 at 05:30; Stop 07/14/17 at 10:45; Status DC Insulin Aspart (NovoLOG SUPPLEMENTAL SCALE) 1 ACHS SLIDING SCALE SQ Last administered on 07/14/17 06:42; Start 07/14/17 at 07:00; Stop 07/14/17 at 10:10 ; Status DC Vancomycin HCl 1500 mg/Sodium Chloride 515 ml @ 250 mls/hr Q12H IV Last administered on 07/16/17 06:01; Start 07/14/17 at 14:00; Stop 07/16/17 at 08:58 ; Status DC Miscellaneous Information SPECIFIC LAB TO BE DRAWN:VANCOMYCIN TROUGH DATE TO... ONCE ONCE .XX ; Start 07/16/17 at 01:45; Stop 07/16/17 at 01:46; Status DC Sodium Chloride 1,000 ml @ 84 mls/hr [id number] IV Last administered on 00:19; Start 07/14/17 at 11:00; Stop 07/16/17 at 12:44; Status DC Dextrose (D50w (Vial) Inj) 50 ml UNSCH PRN IV HYPOGLYCEMIA-SEE COMMENTS; Start 07/14/17 at 10:15; Stop 07/17/17 at 09:56; Status DC Glucagon (Glucagon Inj) 1 mg UNSCH PRN OTHER HYPOGLYCEMIA-SEE COMMENTS; Start 07/14/17 at 10:15; Stop 07/17/17 at 09:56; Status DC Insulin Human Regular (NovoLIN R SUPPLEMENTAL SCALE) 1 Q4H SQ Last administered on 07/15/17 06:48; Start 07/14/17 at 11:00; Stop 07/16/17 at 17:20 ; Status DC Potassium Chloride 100 ml @ 50 mls/hr Q2H PRN IV For Potassium 2.8 - 3.2 mEq/ L Last administered on 07/18/17 16:54; Start 07/14/17 at 10:15; Stop 07/23/17 at 13:47; Status DC Potassium Chloride 100 ml @ 50 mls/hr Q2H PRN IV For Potassium 2.8 - 3.2 mEq/L ; Start 07/14/17 at 10:15; Stop 07/23/17 at 13:47; Status DC Potassium Bicarb/ Potassium Chloride (K-Lyte Cl Eff) 50 meq UNSCH PRN PO For Potassium 3.3 - 3.5 mEq/L; Start 07/14/17 at 10:15; Stop 07/23/17 at 13:47; Status DC Potassium Chloride 100 ml @ 25 mls/hr UNSCH PRN IV For Potassium 3.3 - 3.5 mEq /L Last administered on 07/20/17 17:13; Start 07/14/17 at 10:15; Stop 07/23/17 at 13:47; Status DC Potassium Chloride 100 ml @ 50 mls/hr Q2H PRN IV For Potassium 3.3 - 3.5 mEq/L ; Start 07/14/17 at 10:15; Stop 07/23/17 at 13:47; Status DC Magnesium Sulfate 4 gm/Sodium Chloride 100 ml @ 50 mls/hr UNSCH PRN IV For Magnesium 0.9 - 1.1 mg/dL; Start 07/14/17 at 10:15; Stop 07/23/17 at 13:47; Status DC Magnesium Oxide (Mag-Ox) 800 mg UNSCH PRN PO For Magnesium 1.2 - 1.6 mg/dL; Start 07/14/17 at 10:15; Stop 07/23/17 at 13:47; Status DC Magnesium Sulfate 2 gm/Sodium Chloride 100 ml @ 50 mls/hr UNSCH PRN IV For Magnesium 1.2 - 1.6 mg/dL; Start 07/14/17 at 10:15; Stop 07/23/17 at 13:47; Status DC Potassium Phosphate (K-Phos) 2,000 mg Q4H PRN PO For Phosphorus < 2.5 mg/dL; Start 07/14/17 at 10:15; Stop 07/23/17 at 13:47; Status DC Sodium Phosphate 30 mmol/Sodium Chloride 250 ml @ 42 mls/hr UNSCH PRN IV For Phosphorus < 2.5 mg/dL; Start 07/14/17 at 10:15; Stop 07/23/17 at 13:47; Status DC Potassium Phosphate (K-Phos) 2,000 mg UNSCH PRN PO/TUBE SEE LABEL COMMENTS; Start 07/14/17 at 10:15; Stop 07/23/17 at 13:47; Status DC Potassium Phosphate 30 mmol/ Sodium Chloride 260 ml @ 42 mls/hr UNSCH PRN IV SEE LABEL COMMENTS; Start 07/14/17 at 10:15; Stop 07/23/17 at 13:47; Status DC Cyclobenzaprine HCl (Flexeril) 10 mg Q8H PRN PO muscle spasms Last administered on 07/25/17 15:03; Start 07/15/17 at 06:15 Famotidine (Pepcid Liq) 20 mg BID NG Last administered on 07/24/17 20:09; Start 07/15/17 at 09:00 Hydromorphone HCl (Dilaudid Pf Inj) 0.5 mg ONCE ONCE IV Last administered on 15:00; Start 07/15/17 at 15:00; Stop 07/15/17 at 15:01; Status DC Hydromorphone HCl (Dilaudid Pf Inj) 0.5 mg NOW ONCE IV PUSH ; Start 07/15/17 at 15:15; Stop 07/15/17 at 15:16; Status DC Furosemide (Lasix Inj) 40 mg STK-MED ONCE .ROUTE Last administered on 07:12; Start 07/16/17 at 07:12; Stop 07/16/17 at 07:13; Status DC Diltiazem HCl (Cardizem Inj) 25 mg STK-MED ONCE .ROUTE Last administered on 07:21; Start 07/16/17 at 07:21; Stop 07/16/17 at 07:22; Status DC Magnesium Sulfate/ Dextrose 100 ml @ 100 mls/hr Q1H IV Last administered on 08:45; Start 07/16/17 at 07:45; Stop 07/16/17 at 09:44; Status DC Potassium Chloride 100 ml @ 50 mls/hr Q2H IV Last administered on 07/16/17 09 :45; Start 07/16/17 at 07:45; Stop 07/16/17 at 11:44; Status DC Vancomycin HCl 1500 mg/Sodium Chloride 515 ml @ 250 mls/hr Q18H IV Last administered on 07/26/17 00:02; Start 07/17/17 at 00:00 Miscellaneous Information SPECIFIC LAB TO BE DRAWN:VANCO TROUGH DATE... ONCE ONCE .XX Last administered on 07/18/17 11:45; Start 07/18/17 at 11:45; Stop 07/18 at 11:46; Status DC Potassium Chloride (KCl) 40 meq NOW ONCE PO Last administered on 07/16/17 10: 32; Start 07/16/17 at 11:00; Stop 07/16/17 at 11:01; Status DC Hydromorphone HCl (Dilaudid Pf Inj) 0.5 mg Q2H PRN IV PAIN 6-10 or not taking po Last administered on 07/19/17 07:32; Start 07/16/17 at 14:00; Stop 07/19/17 at 07:52; Status DC Oxycodone HCl (Roxicodone) 5 mg Q4H PRN PO pain 1-5 Last administered on 19:30; Start 07/16/17 at 14:00; Stop 07/24/17 at 12:37; Status DC Diltiazem HCl (Cardizem) 60 mg Q6H PO Last administered on 07/26/17 04:31; Start 07/17/17 at 10:00 Dextrose (D50w (Vial) Inj) 50 ml UNSCH PRN IV HYPOGLYCEMIA-SEE COMMENTS; Start 07/17/17 at 09:00 Glucagon (Glucagon Inj) 1 mg UNSCH PRN OTHER HYPOGLYCEMIA-SEE COMMENTS; Start 07/17/17 at 09:00 Insulin Human Regular (NovoLIN R SUPPLEMENTAL SCALE) 1 Q6H SQ ; Start 07/17/17 at 10:00 Aztreonam 2000 mg/ Sodium Chloride 100 ml @ 200 mls/hr Q8H IV ; Start 07/17/17 at 10:00; Stop 07/17/17 at 10:02; Status DC Vancomycin HCl (VANCOMYCIN for oral use only) 125 mg QID PO Last administered on 07/25/17 20:11; Start 07/17/17 at 13:00; Stop 07/31/17 at 12:59 Hydromorphone HCl (Dilaudid Pf Inj) 0.5 mg ONCE ONCE IV PUSH Last administered on 07/17/17 14:40; Start 07/17/17 at 14:30; Stop 07/17/17 at 14:33; Status DC Hydralazine HCl (Apresoline) 50 mg Q8HR PO Last administered on 07/26/17 05:53 ; Start 07/18/17 at 09:30 Hydromorphone HCl (Dilaudid Pf Inj) 1 mg Q2H PRN IV PAIN 6-10 or not taking po Last administered on 07/24/17 15:43; Start 07/19/17 at 09:00; Stop 07/24/17 at 19: 32; Status DC Bumetanide (Bumex Inj) 1 mg ONCE ONCE IV PUSH Last administered on 07/20/17 08 :37; Start 07/20/17 at 08:00; Stop 07/20/17 at 08:01; Status DC Potassium Bicarb/ Potassium Chloride (K-Lyte Cl Eff) 50 meq ONCE ONCE PO Last administered on 07/21/17 09:35; Start 07/21/17 at 09:00; Stop 07/21/17 at 09: 01; Status DC Potassium Chloride 100 ml @ 100 mls/hr Q1H IV Last administered on 07/21/17 20 :41; Start 07/21/17 at 09:00; Stop 07/21/17 at 11:59; Status DC Miscellaneous Information SPECIFIC LAB TO BE DRAWN:VANCOMYCIN TROUGH DATE TO... ONCE ONCE .XX Last administered on 07/22/17 05:53; Start 07/22/17 at 05:45; Stop 07/22/17 at 05:46; Status DC Heparin Sodium (Porcine) (Heparin Inj) 10,000 units STK-MED ONCE .ROUTE Last administered on 07/21/17 13:44; Start 07/21/17 at 13:44; Stop 07/21/17 at 13:45; Status DC Vancomycin HCl (Vancomycin Inj) 1,000 mg STK-MED ONCE .ROUTE Last administered on 07/21/17 14:43; Start 07/21/17 at 14:10; Stop 07/21/17 at 14:11; Status DC Iohexol (Omnipaque 350 Inj) 50 ml ONCE ONCE .XX ; Start 07/21/17 at 14:44; Stop 07/21/17 at 14:45; Status DC Fentanyl Citrate (fentaNYL INJ) 100 mcg STK-MED ONCE .ROUTE ; Start 07/21/17 at 15:57; Stop 07/21/17 at 15:58; Status DC Miscellaneous Information ALL NURSING DEPARTME... UNSCH PRN .XX SEE LABEL COMMENTS; Start 07/21/17 at 15:49; Stop 07/22/17 at 15:48; Status DC Miscellaneous Information ALL NURSING DEPARTME... UNSCH PRN .XX SEE LABEL COMMENTS; Start 07/21/17 at 15:49; Stop 07/22/17 at 15:48; Status Cancel Potassium Chloride (KCl) 40 meq ONCE ONCE PO Last administered on 07/23/17 18: 59; Start 07/23/17 at 18:45; Stop 07/23/17 at 18:53; Status DC Lisinopril (Prinivil) 10 mg DAILY PO Last administered on 07/24/17 09:02; Start 07/23/17 at 18:45; Stop 07/24/17 at 19:25; Status DC Miscellaneous Information SPECIFIC LAB TO BE KARLA... ONCE ONCE .XX Last administered on 07/25/17 05:45; Start 07/25/17 at 05:45; Stop 07/25/17 at 05:46; Status DC Bupivacaine HCl (Marcaine Pf 0.5% Inj) 30 ml STK-MED ONCE .ROUTE ; Start at 09:24; Stop 07/24/17 at 09:25; Status DC Lidocaine HCl (Xylocaine 1% Inj (50 ml)) 50 ml STK-MED ONCE .ROUTE ; Start at 09:24; Stop 07/24/17 at 09:25; Status DC Sodium Chloride (NS Flush) 2 ml UNSCH PRN IV FLUSH FLUSH AFTER USING IV ACCESS Last administered on 07/26/17 04:32; Start 07/24/17 at 11:00 Sodium Chloride (NS Flush) 2 ml BID IV FLUSH Last administered on 07/26/17 08: 51; Start 07/24/17 at 21:00 Miscellaneous Information (Post-op Orders (for Pharmacy)) STAT ONCE XX ; Start 07/24/17 at 11:00; Stop 07/24/17 at 12:36; Status DC Hydromorphone HCl (Dilaudid Pf Inj) 1 mg Q3H PRN IV BREAKTHROUGH PAIN Last administered on 07/26/17 08:49; Start 07/24/17 at 11:00 Hydromorphone HCl (Dilaudid) 1 mg Q4H PRN PO PAIN SCALE 3 TO 5; Start 07/24/17 at 11:00; Stop 07/24/17 at 19:32; Status DC Hydromorphone HCl (Dilaudid) 2 mg Q4H PRN PO PAIN SCALE 6 TO 10 Last administered on 07/24/17 17:48; Start 07/24/17 at 11:00; Stop 07/24/17 at 19:32; Status DC Naloxone HCl (Narcan Inj) 0.4 mg UNSCH PRN IV SEE LABEL COMMENTS; Start at 11:00 Hydromorphone HCl (*DILAUDID PF INJ PERIprocedural ONLY) 1 mg STK-MED ONCE .ROUTE Last administered on 07/24/17 11:26; Start 07/24/17 at 11:26; Stop at 11:27; Status DC Miscellaneous Information ALL NURSING DEPARTME... UNSCH PRN .XX SEE LABEL COMMENTS; Start 07/24/17 at 10:55; Stop 07/25/17 at 10:54; Status DC Vancomycin HCl (Vancomycin Inj) 500 mg STK-MED ONCE .ROUTE Last administered on 07/24/17 13:59; Start 07/24/17 at 11:54; Stop 07/24/17 at 11:55; Status DC Vancomycin HCl (Vancomycin Inj) 1,000 mg STK-MED ONCE .ROUTE ; Start 07/24/17 at 11:55; Stop 07/24/17 at 11:56; Status DC Hydromorphone HCl (*DILAUDID PF INJ PERIprocedural ONLY) 1 mg STK-MED ONCE .ROUTE Last administered on 07/24/17 13:20; Start 07/24/17 at 13:20; Stop at 13:21; Status DC Lisinopril (Prinivil) 20 mg DAILY PO Last administered on 07/25/17 08:46; Start 07/25/17 at 09:00; Stop 07/25/17 at 14:49; Status DC Oxycodone HCl (Roxicodone) 10 mg Q4H PRN PO pain 6-10 Last administered on 07/26 05:53; Start 07/24/17 at 19:30 Oxycodone HCl (Roxicodone) 5 mg Q4H PRN PO pain 3-5; Start 07/24/17 at 19:30 Lisinopril (Prinivil) 20 mg BID PO Last administered on 07/26/17 08:50; Start 07/25/17 at 21:00 Other Results Laboratory Tests Test 07/25/17 05:40 Blood Urea Nitrogen 14 MG/DL Creatinine 0.77 MG/DL Random Glucose 151 MG/DL Calcium Level 7.9 MG/DL Sodium Level 137 MEQ/L Potassium Level 3.7 MEQ/L Chloride Level 102 MEQ/L Carbon Dioxide Level 29.4 MEQ/L Anion Gap 6 MEQ/L Estimat Glomerular Filtration Rate 99 ML/MIN Microbiology Date/Time Source Procedure Growth Status 07/24/17 10:15 Wound Foot Fungal Smear - Final NO FUNGAL ELEMENTS SEEN. Resulted 07/24/17 10:15 Wound Foot Fungal Culture Pending Resulted 07/24/17 10:15 Wound Foot Acid Fast Stain Pending Received 07/24/17 10:15 Wound Foot Mycobacterial Culture Pending Received 07/24/17 10:15 Wound Foot Gram Stain - Final Complete 07/24/17 10:15 Wound Culture - Final S. Aureus Mrsa Complete Exam-Podiatry Constitutional General appearance: comfortable Nutritional status: normal Orientation: alert and oriented x3 Dermatological Exam Skin Temp - Right: Within Normal Limits Skin Texture - Right: Within Normal Limits Skin Elasticity - Right: Within Normal Limits Skin Tugor - Right: Within Normal Limits Hair Growth - Right: Within Normal Limits Pigmentation - Right: Within Normal Limits Skin Temp - Left: Within Normal Limits Skin Texture - Left: Within Normal Limits Skin Elasticity - Left: Within Normal Limits Skin Tugor - Left: Within Normal Limits Hair Growth - Left: Within Normal Limits Pigmentation - Left: Within Normal Limits Vascular/Lymphatic Exam R Dorsails Pedis: Doppler L Dorsails Pedis: Doppler R Posterior Tibial: Doppler L Posterior Tibial: Doppler Neurologic Exam Present on right: Tingling, Paraesthesia Present on left: Tingling, Paraesthesia Musculoskeletal Exam Details First ray amputation left foot Muscle Strength Dorsiflexion (Right): Normal Plantarflexion (Right): Normal Inversion (Right): Normal Eversion (Right): Normal Digital (Right): Normal Dorsiflexion (Left): Normal Plantarflexion (Left): Normal Inversion (Left): Normal Eversion (Left): Normal Digital (Left): Normal Foot Range of Motion Dorsiflexion (Right): Normal Plantarflexion (Right): Normal Inversion (Right): Normal Eversion (Right): Normal Digital (Right): Normal Dorsiflexion (Left): Normal Plantarflexion (Left): Normal Inversion (Left): Normal Eversion (Left): Normal Digital (Left): Normal Assessment & Plan Diagnosis: (1) Diabetes mellitus with peripheral angiopathy with gangrene ICD Codes: E11.52 - Type 2 diabetes mellitus with diabetic peripheral angiopathy with gangrene Status: Resolved (2) Foot ulceration ICD Codes: L97.509 - Non-pressure chronic ulcer of other part of unspecified foot with unspecified severity Status: Acute A/P PLAN: Continue negative pressure wound therapy VAC. I will change the dressing Thursday. Patient will require long-term wound care. CBC ordered Problem Qualifiers (1) Diabetes mellitus with peripheral angiopathy with gangrene: Qualified Codes: E11.52 - Type 2 diabetes mellitus with diabetic peripheral angiopathy with gangrene (2) Foot ulceration: Qualified Codes: L97.523 - Non-pressure chronic ulcer of other part of left foot with necrosis of muscle Gamal Arvizu DPM Jul 26, 2017 09:29
[2017-07-26] MEDS: CYCLOBENZAPRINE HCL 10 MG TAB PO PRN ×2 (10:14→19:13)
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
[2017-07-26] MEDS ORDERED: LISINOPRIL 20 MG TAB PO ONE (17:00)
[2017-07-26] MEDS: ATORVASTATIN 40 MG TAB PO SCH (21:00)
[2017-07-26] MEDS: DONEPEZIL HCL 5 MG TAB PO SCH (21:01)
[2017-07-26] MEDS: LATANOPROST 0.005% OPHT SOLN 2.5 ML BTL EACH EYE SCH (21:13)
[2017-07-27] VITALS (8 sets, daily range): BP systolic 139–180; BP diastolic 62–81; PULSE 62–74; RESP 18; TEMP 98–98.9; O2SAT 91–96
[2017-07-27] MEDS: HYDROmorphone HCL PF 1 MG/ML VIAL IV PRN ×6 (02:27→20:56)
[2017-07-27] MEDS: SODIUM CHLORIDE 0.9% FLUSH 10 ML FLUSH IV FLUSH PRN ×2 (02:27→07:21)
[2017-07-27] MEDS: INSULIN NovoLIN REGULAR SUPPLEMENTAL SCALE SQ SCH ×4 (04:00→20:44)
[2017-07-27] MEDS: CHLORHEXIDINE GLUCONATE 2 % 1 PACK (2 CLOTHS) TOP SCH (04:00)
[2017-07-27] MEDS: hydrALAZINE HCL 50 MG TAB PO SCH ×3 (05:22→20:53)
[2017-07-27] MEDS: DILTIAZEM HCL 60 MG TAB PO SCH ×4 (05:22→20:43)
[2017-07-27] MEDS: HEPARIN SODIUM - SQ 10,000 UNITS/ML VIAL SQ SCH ×3 (05:26→20:56)
[2017-07-27] MEDS: BUDESONIDE-FORMOTEROL 80/4.5 MCG INHALER INH SCH ×2 (09:00→20:46)
[2017-07-27] MEDS: ARTIFICIAL TEARS OPTH SOLN 15 ML BTL EACH EYE SCH ×3 (09:00→16:01)
[2017-07-27] MEDS: VANCOMYCIN 500 MG VIAL (FOR ORAL USE ONLY) PO SCH ×4 (09:00→20:54)
[2017-07-27] MEDS: FAMOTIDINE 40 MG/5 ML LIQ 50 ML BTL NG SCH ×2 (09:00→20:44)
[2017-07-27] MEDS: LACTOBACILLUS ACIDOPHILUS TAB PO SCH ×3 (09:04→15:56)
[2017-07-27] MEDS: ASCORBIC ACID 500 MG TAB PO SCH (09:04)
[2017-07-27] MEDS: MULTIVITAMINS/MINERALS THERAPEUTIC TAB PO SCH (09:04)
[2017-07-27] MEDS: FERROUS SULFATE 325 MG (65 MG ELEMENTAL IRON) TAB PO SCH ×2 (09:05→15:57)
[2017-07-27] MEDS: CITALOPRAM HYDROBROMIDE 20 MG TAB PO SCH (09:05)
[2017-07-27] MEDS: LISINOPRIL 20 MG TAB PO SCH (09:06)
[2017-07-27] MEDS: DOCUSATE SODIUM 50 MG/SENNA 8.6 MG TAB PO SCH ×2 (09:06→20:43)
--- NOTE | 2017-07-27 09:10 | PD.POD ---
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 Patient underwent an arteriogram with intervention by Dr. Anand. 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 A negative pressure wound therapy VAC was applied. VAC appears to be functioning well. Past Med/Surg/Social History Past Medical History Endocrine: REPORTS HX OF: Diabetes mellitus, Graves disease Cardiovascular: REPORTS HX OF: Hypertension, Peripheral vascular dz Gastrointestinal: REPORTS HX OF: Other GI history (prior GI bleed, pt finished c. diff treatment on friday 05/25) Musculoskeletal: REPORTS HX OF: Other musculoskeletal hx (L. shoulder pain worsen after his arm was injured in latest hospitalization) Cancer/Hematology: REPORTS HX OF: Anemia Past Surgical History Gastrointestinal: DENIES HX OF: Colectomy, total Musculoskeletal: REPORTS HX OF: Other musculoskeletal srg (resection of the first metatarsal head and sesamoids) Social History Smoking Status: Unknown If Ever Smoked Review of Systems Notes No changes in his 14 point review of systems exam since yesterday Objective Vital Signs Vital Signs Date Time Temp Pulse Resp B/P (MAP) Pulse Ox O2 Delivery O2 Flow Rate FiO2 07/27/17 08:00 98.6 62 18 175/81 (112) 92 07/27/17 04:00 98.4 74 18 180/72 (108) 96 07/27/17 00:00 98.3 74 18 170/62 (98) 96 07/26/17 22:37 69 169/77 (107) 07/26/17 20:32 21 07/26/17 20:00 99.6 48 18 () 99 07/26/17 20:00 68 07/26/17 16:00 99.4 75 18 180/81 (114) 95 07/26/17 12:00 98.6 76 18 159/71 (100) 93 Coded Allergies: Sulfa (Sulfonamide Antibiotics) (Verified Allergy, Severe, Anaphylaxis, ) metronidazole (Verified Allergy, Severe, Fever, colitis, 07/07/17) While being treated for Cdiff. Doubt if true allergy. penicillin G (Verified Allergy, Severe, Anaphylaxis, 07/07/17) sulfamethoxazole (Verified Allergy, Severe, Anaphylaxis, 07/07/17) trimethoprim (Verified Allergy, Severe, Anaphylaxis, 07/07/17) erythromycin base (Verified Allergy, Intermediate, Rash, 07/07/17) aspirin (Verified Allergy, Unknown, 07/07/17) oxycodone (Verified Allergy, Unknown, 07/07/17) PT states oxycodone is fine, but percodan is too strong MRI PRECAUTION (Verified Adverse Reaction, Severe, BLADDER STIMULATOR, ) BRAIN ONLY ON RECEIVE ONLY COIL, P.O. 01/11/17, DML acetaminophen (Verified Adverse Reaction, Unknown, Psychosis, 07/07/17) meperidine (Verified Adverse Reaction, Unknown, Psychosis, 07/07/17) morphine (Verified Adverse Reaction, Unknown, Psychosis, 07/07/17) Uncoded Allergies: surgical tape (Allergy, Severe, 12/15/13) Medications and IVs Current Medications Etomidate (Amidate Inj) 40 mg STK-MED ONCE .ROUTE ; Start 07/14/17 at 00:32; Stop 07/14/17 at 00:33; Status DC Propofol 100 ml @ As Directed STK-MED ONCE .ROUTE ; Start 07/14/17 at 00:35; Stop 07/14/17 at 00:36; Status DC IV Flush (NS Flush) 2 ml UNSCH PRN IV FLUSH FLUSH AFTER USING IV ACCESS; Start 07/14/17 at 00:45; Stop 07/14/17 at 03:47; Status DC Vancomycin HCl 1450 mg/Sodium Chloride 514.5 ml @ 250 mls/hr ONCE ONCE IV Last administered on 07/14/17 02:36; Start 07/14/17 at 01:30; Stop 07/14/17 at 03:33; Status DC Aztreonam 2000 mg/ Sodium Chloride 100 ml @ 200 mls/hr ONCE ONCE IV Last administered on 07/14/17 02:08; Start 07/14/17 at 01:30; Stop 07/14/17 at 01:59 ; Status DC Racepinephrine (Racepinephrine 2.25% Neb) 0.5 ml ONCE ONCE NEB Last administered on 07/14/17 01:36; Start 07/14/17 at 01:30; Stop 07/14/17 at 01:31 ; Status DC Methylprednisolone Sodium Succinate (SoluMEDROL INJ) 60 mg ONCE ONCE IVP Last administered on 07/14/17 01:44; Start 07/14/17 at 01:30; Stop 07/14/17 at 01:31 ; Status DC Albuterol/ Ipratropium (Duoneb Neb) 1 ampule Q15M INH Last administered on 07/14 01:48; Start 07/14/17 at 01:30; Stop 07/14/17 at 02:01; Status DC Etomidate (Amidate Inj) 30 mg ONCE ONCE IV PUSH Last administered on 02:09; Start 07/14/17 at 02:00; Stop 07/14/17 at 02:02; Status DC Rocuronium Minden (Zemuron Inj) 60 mg BOLUS ONCE IV Last administered on 07/14 02:08; Start 07/14/17 at 02:00; Stop 07/14/17 at 02:02; Status DC Propofol 100 ml @ 2.85 mls/hr Q35H6M PRN IV Ordered RASS Last administered on 01:37; Start 07/14/17 at 02:02; Stop 07/16/17 at 12:44; Status DC Midazolam HCl (Versed Inj) 5 mg STK-MED ONCE .ROUTE ; Start 07/14/17 at 02:30; Stop 07/14/17 at 02:31; Status DC Sodium Chloride 1,000 ml @ 999 mls/hr BOLUS ONCE IV Last administered on 07/14 03:32; Start 07/14/17 at 03:00; Stop 07/14/17 at 04:00; Status DC Midazolam HCl (Versed Inj) 5 mg ONCE ONCE IV PUSH Last administered on 03:06; Start 07/14/17 at 03:15; Stop 07/14/17 at 03:16; Status DC Midazolam HCl 100 ml @ 2 mls/hr Q50H PRN IV SEDATION Last administered on 03:39; Start 07/14/17 at 03:01; Stop 07/15/17 at 06:31; Status DC Midazolam HCl 100 ml @ As Directed STK-MED ONCE .ROUTE ; Start 07/14/17 at 03: 17; Stop 07/14/17 at 03:18; Status DC Aspirin (Aspirin Chew) 81 mg DAILY CHEW Last administered on 07/20/17 08:37; Start 07/14/17 at 09:00; Status Future Hold Atorvastatin Calcium (Lipitor) 40 mg HS PO Last administered on 07/26/17 21:00 ; Start 07/14/17 at 21:00 Citalopram Hydrobromide (CeleXA) 60 mg DAILY PO Last administered on 07/27/17 09:05; Start 07/14/17 at 09:00 Cyclobenzaprine HCl (Flexeril) 10 mg Q8HR PO Last administered on 07/15/17 04: 21; Start 07/14/17 at 06:00; Stop 07/15/17 at 06:31; Status DC Donepezil HCl (Aricept) 10 mg HS PO Last administered on 07/26/17 21:01; Start 07/14/17 at 21:00 Gabapentin (Neurontin) 100 mg TID PO ; Start 07/14/17 at 09:00; Stop 07/15/17 at 06:31; Status DC Lactobacillus Acidophilus (Lactinex) 1 tab TIDAC PO Last administered on 09:04; Start 07/14/17 at 08:00 Ascorbic Acid (Vitamin C) 1,000 mg DAILY PO Last administered on 07/27/17 09: 04; Start 07/14/17 at 09:00 Ferrous Sulfate (Ferrous Sulfate) 325 mg BIDPC PO Last administered on 09:05; Start 07/14/17 at 09:00 Budesonide/ Formoterol Fumarate (Symbicort 80-4.5 Mcg Inh) 1 puff BID INH Last administered on 07/25/17 08:52; Start 07/14/17 at 09:00 Multivitamins/ Minerals Therapeutic (Theragran M Tab) 1 tab DAILY PO Last administered on 07/27/17 09:04; Start 07/14/17 at 09:00 Latanoprost (Xalatan 0.005% Opth Soln) 1 drop HS EACH EYE Last administered on 07/26/17 21:13; Start 07/14/17 at 21:00 Sodium Chloride (NS Flush) 2 ml UNSCH PRN .XX FLUSH AFTER USING IV ACCESS; Start 07/14/17 at 03:30; Stop 07/24/17 at 12:35; Status DC Sodium Chloride (NS Flush) 2 ml BID .XX Last administered on 07/23/17 21:20; Start 07/14/17 at 09:00; Stop 07/24/17 at 12:35; Status DC Acetaminophen (Tylenol) 650 mg Q6H PRN PO FEVER >101F; Start 07/14/17 at 03:30 ; Stop 07/14/17 at 03:47; Status DC Morphine Sulfate (Morphine Inj) 2 mg Q2H PRN IV PAIN SCALE 6 TO 10; Start 07/14 at 03:30; Stop 07/14/17 at 03:47; Status DC Famotidine (Pepcid Inj) 20 mg Q12HR IV PUSH Last administered on 07/14/17 20: 45; Start 07/14/17 at 09:00; Stop 07/15/17 at 06:31; Status DC Midazolam HCl (Versed Inj) 2 mg Q1H PRN IV SEDATION; Start 07/14/17 at 03:30; Stop 07/15/17 at 06:31; Status DC Artificial Tears (Tears Naturale Opth Soln) 1 drop TID EACH EYE Last administered on 07/25/17 12:28; Start 07/14/17 at 09:00 Ondansetron HCl (Zofran Inj) 4 mg Q6H PRN IV NAUSEA OR VOMITING; Start at 03:30 Albuterol/ Ipratropium (Duoneb Neb) 1 ampule Q6HR NEB INH Last administered on 07/17/17 07:39; Start 07/14/17 at 04:00; Stop 07/18/17 at 03:59; Status DC Albuterol/ Ipratropium (Duoneb Neb) 1 ampule Q2HR NEB PRN INH WHEEZING Last administered on 07/21/17 02:00; Start 07/14/17 at 03:30 Heparin Sodium (Porcine) (Heparin Inj) 5,000 units Q8H SQ Last administered on 07/27/17 05:26; Start 07/14/17 at 06:00 Miscellaneous Information 1 Q361D XX ; Start 07/14/17 at 03:30 Chlorhexidine Gluconate (Chlorhexidine 2% Cloth) Taper DAILY@04 TOP Last administered on 07/21/17 01:37; Start 07/14/17 at 04:00; Stop 07/10/18 at 03:59 Chlorhexidine Gluconate (Chlorhexidine 2% Cloth) 3 pack UNSCH PRN TOP HYGIENIC CARE; Start 07/14/17 at 03:30 Senna/Docusate Sodium (Medina-Colace) 1 tab BID PO Last administered on 09:06; Start 07/14/17 at 09:00 Magnesium Hydroxide (Milk Of Magnesia Liq) 30 ml Q12H PRN PO MILD - MODERATE CONSTIPATION; Start 07/14/17 at 03:30 Sennosides (Senokot) 17.2 mg Q12H PRN PO MODERATE - SEVERE CONSTIPATION; Start 07/14/17 at 03:30 Bisacodyl (Dulcolax Supp) 10 mg DAILY PRN RECTAL SEVERE CONSITIPATION; Start at 03:30 Lactulose (Lactulose Liq) 30 ml DAILY PRN PO SEVERE CONSITIPATION; Start at 03:30 Pharmacy Profile Note 0 ml @ 0 mls/hr UNSCH OTHER ; Start 07/14/17 at 03:30 Vancomycin HCl 1000 mg/Sodium Chloride 250 ml @ 250 mls/hr ONCE ONCE IV ; Start 07/14/17 at 03:30; Stop 07/14/17 at 04:29; Status UNV Hydromorphone HCl (Dilaudid Pf Inj) 0.5 mg Q4H PRN IV PAIN 1-10 Last administered on 07/16/17 10:32; Start 07/14/17 at 04:00; Stop 07/16/17 at 12:44 ; Status DC Fentanyl Citrate 250 ml @ 5 mls/hr Q24H PRN IV SEDATION Last administered on 04:29; Start 07/14/17 at 03:56; Stop 07/16/17 at 12:44; Status DC Hydralazine HCl (Apresoline Inj) 20 mg Q4H PRN IV PUSH SBP>160, DBP>90 Last administered on 07/26/17 08:50; Start 07/14/17 at 04:00 Pharmacy Profile Note 0 ml @ 0 mls/hr UNSCH OTHER ; Start 07/14/17 at 05:30; Stop 07/14/17 at 05:30; Status DC Vancomycin HCl 1000 mg/Sodium Chloride 250 ml @ 250 mls/hr ONCE ONCE IV ; Start 07/14/17 at 05:30; Stop 07/14/17 at 06:29; Status UNV Dextrose (D50w (Vial) Inj) 50 ml UNSCH PRN IV HYPOGLYCEMIA-SEE COMMENTS; Start 07/14/17 at 05:30; Stop 07/14/17 at 10:45; Status DC Glucagon (Glucagon Inj) 1 mg UNSCH PRN OTHER HYPOGLYCEMIA-SEE COMMENTS; Start 07/14/17 at 05:30; Stop 07/14/17 at 10:45; Status DC Insulin Aspart (NovoLOG SUPPLEMENTAL SCALE) 1 ACHS SLIDING SCALE SQ Last administered on 07/14/17 06:42; Start 07/14/17 at 07:00; Stop 07/14/17 at 10:10 ; Status DC Vancomycin HCl 1500 mg/Sodium Chloride 515 ml @ 250 mls/hr Q12H IV Last administered on 07/16/17 06:01; Start 07/14/17 at 14:00; Stop 07/16/17 at 08:58 ; Status DC Miscellaneous Information SPECIFIC LAB TO BE DRAWN:VANCOMYCIN TROUGH DATE TO... ONCE ONCE .XX ; Start 07/16/17 at 01:45; Stop 07/16/17 at 01:46; Status DC Sodium Chloride 1,000 ml @ 84 mls/hr [id number] IV Last administered on 00:19; Start 07/14/17 at 11:00; Stop 07/16/17 at 12:44; Status DC Dextrose (D50w (Vial) Inj) 50 ml UNSCH PRN IV HYPOGLYCEMIA-SEE COMMENTS; Start 07/14/17 at 10:15; Stop 07/17/17 at 09:56; Status DC Glucagon (Glucagon Inj) 1 mg UNSCH PRN OTHER HYPOGLYCEMIA-SEE COMMENTS; Start 07/14/17 at 10:15; Stop 07/17/17 at 09:56; Status DC Insulin Human Regular (NovoLIN R SUPPLEMENTAL SCALE) 1 Q4H SQ Last administered on 07/15/17 06:48; Start 07/14/17 at 11:00; Stop 07/16/17 at 17:20 ; Status DC Potassium Chloride 100 ml @ 50 mls/hr Q2H PRN IV For Potassium 2.8 - 3.2 mEq/ L Last administered on 07/18/17 16:54; Start 07/14/17 at 10:15; Stop 07/23/17 at 13:47; Status DC Potassium Chloride 100 ml @ 50 mls/hr Q2H PRN IV For Potassium 2.8 - 3.2 mEq/L ; Start 07/14/17 at 10:15; Stop 07/23/17 at 13:47; Status DC Potassium Bicarb/ Potassium Chloride (K-Lyte Cl Eff) 50 meq UNSCH PRN PO For Potassium 3.3 - 3.5 mEq/L; Start 07/14/17 at 10:15; Stop 07/23/17 at 13:47; Status DC Potassium Chloride 100 ml @ 25 mls/hr UNSCH PRN IV For Potassium 3.3 - 3.5 mEq /L Last administered on 07/20/17 17:13; Start 07/14/17 at 10:15; Stop 07/23/17 at 13:47; Status DC Potassium Chloride 100 ml @ 50 mls/hr Q2H PRN IV For Potassium 3.3 - 3.5 mEq/L ; Start 07/14/17 at 10:15; Stop 07/23/17 at 13:47; Status DC Magnesium Sulfate 4 gm/Sodium Chloride 100 ml @ 50 mls/hr UNSCH PRN IV For Magnesium 0.9 - 1.1 mg/dL; Start 07/14/17 at 10:15; Stop 07/23/17 at 13:47; Status DC Magnesium Oxide (Mag-Ox) 800 mg UNSCH PRN PO For Magnesium 1.2 - 1.6 mg/dL; Start 07/14/17 at 10:15; Stop 07/23/17 at 13:47; Status DC Magnesium Sulfate 2 gm/Sodium Chloride 100 ml @ 50 mls/hr UNSCH PRN IV For Magnesium 1.2 - 1.6 mg/dL; Start 07/14/17 at 10:15; Stop 07/23/17 at 13:47; Status DC Potassium Phosphate (K-Phos) 2,000 mg Q4H PRN PO For Phosphorus < 2.5 mg/dL; Start 07/14/17 at 10:15; Stop 07/23/17 at 13:47; Status DC Sodium Phosphate 30 mmol/Sodium Chloride 250 ml @ 42 mls/hr UNSCH PRN IV For Phosphorus < 2.5 mg/dL; Start 07/14/17 at 10:15; Stop 07/23/17 at 13:47; Status DC Potassium Phosphate (K-Phos) 2,000 mg UNSCH PRN PO/TUBE SEE LABEL COMMENTS; Start 07/14/17 at 10:15; Stop 07/23/17 at 13:47; Status DC Potassium Phosphate 30 mmol/ Sodium Chloride 260 ml @ 42 mls/hr UNSCH PRN IV SEE LABEL COMMENTS; Start 07/14/17 at 10:15; Stop 07/23/17 at 13:47; Status DC Cyclobenzaprine HCl (Flexeril) 10 mg Q8H PRN PO muscle spasms Last administered on 07/26/17 19:13; Start 07/15/17 at 06:15 Famotidine (Pepcid Liq) 20 mg BID NG Last administered on 07/24/17 20:09; Start 07/15/17 at 09:00 Hydromorphone HCl (Dilaudid Pf Inj) 0.5 mg ONCE ONCE IV Last administered on 15:00; Start 07/15/17 at 15:00; Stop 07/15/17 at 15:01; Status DC Hydromorphone HCl (Dilaudid Pf Inj) 0.5 mg NOW ONCE IV PUSH ; Start 07/15/17 at 15:15; Stop 07/15/17 at 15:16; Status DC Furosemide (Lasix Inj) 40 mg STK-MED ONCE .ROUTE Last administered on 07:12; Start 07/16/17 at 07:12; Stop 07/16/17 at 07:13; Status DC Diltiazem HCl (Cardizem Inj) 25 mg STK-MED ONCE .ROUTE Last administered on 07:21; Start 07/16/17 at 07:21; Stop 07/16/17 at 07:22; Status DC Magnesium Sulfate/ Dextrose 100 ml @ 100 mls/hr Q1H IV Last administered on 08:45; Start 07/16/17 at 07:45; Stop 07/16/17 at 09:44; Status DC Potassium Chloride 100 ml @ 50 mls/hr Q2H IV Last administered on 07/16/17 09 :45; Start 07/16/17 at 07:45; Stop 07/16/17 at 11:44; Status DC Vancomycin HCl 1500 mg/Sodium Chloride 515 ml @ 250 mls/hr Q18H IV Last administered on 07/26/17 17:42; Start 07/17/17 at 00:00 Miscellaneous Information SPECIFIC LAB TO BE DRAWN:VANCO TROUGH DATE... ONCE ONCE .XX Last administered on 07/18/17 11:45; Start 07/18/17 at 11:45; Stop 07/18 at 11:46; Status DC Potassium Chloride (KCl) 40 meq NOW ONCE PO Last administered on 07/16/17 10: 32; Start 07/16/17 at 11:00; Stop 07/16/17 at 11:01; Status DC Hydromorphone HCl (Dilaudid Pf Inj) 0.5 mg Q2H PRN IV PAIN 6-10 or not taking po Last administered on 07/19/17 07:32; Start 07/16/17 at 14:00; Stop 07/19/17 at 07:52; Status DC Oxycodone HCl (Roxicodone) 5 mg Q4H PRN PO pain 1-5 Last administered on 19:30; Start 07/16/17 at 14:00; Stop 07/24/17 at 12:37; Status DC Diltiazem HCl (Cardizem) 60 mg Q6H PO Last administered on 07/27/17 09:06; Start 07/17/17 at 10:00 Dextrose (D50w (Vial) Inj) 50 ml UNSCH PRN IV HYPOGLYCEMIA-SEE COMMENTS; Start 07/17/17 at 09:00 Glucagon (Glucagon Inj) 1 mg UNSCH PRN OTHER HYPOGLYCEMIA-SEE COMMENTS; Start 07/17/17 at 09:00 Insulin Human Regular (NovoLIN R SUPPLEMENTAL SCALE) 1 Q6H SQ ; Start 07/17/17 at 10:00 Aztreonam 2000 mg/ Sodium Chloride 100 ml @ 200 mls/hr Q8H IV ; Start 07/17/17 at 10:00; Stop 07/17/17 at 10:02; Status DC Vancomycin HCl (VANCOMYCIN for oral use only) 125 mg QID PO Last administered on 07/26/17 21:05; Start 07/17/17 at 13:00; Stop 07/31/17 at 12:59 Hydromorphone HCl (Dilaudid Pf Inj) 0.5 mg ONCE ONCE IV PUSH Last administered on 07/17/17 14:40; Start 07/17/17 at 14:30; Stop 07/17/17 at 14:33; Status DC Hydralazine HCl (Apresoline) 50 mg Q8HR PO Last administered on 07/27/17 05:22 ; Start 07/18/17 at 09:30 Hydromorphone HCl (Dilaudid Pf Inj) 1 mg Q2H PRN IV PAIN 6-10 or not taking po Last administered on 07/24/17 15:43; Start 07/19/17 at 09:00; Stop 07/24/17 at 19: 32; Status DC Bumetanide (Bumex Inj) 1 mg ONCE ONCE IV PUSH Last administered on 07/20/17 08 :37; Start 07/20/17 at 08:00; Stop 07/20/17 at 08:01; Status DC Potassium Bicarb/ Potassium Chloride (K-Lyte Cl Eff) 50 meq ONCE ONCE PO Last administered on 07/21/17 09:35; Start 07/21/17 at 09:00; Stop 07/21/17 at 09: 01; Status DC Potassium Chloride 100 ml @ 100 mls/hr Q1H IV Last administered on 07/21/17 20 :41; Start 07/21/17 at 09:00; Stop 07/21/17 at 11:59; Status DC Miscellaneous Information SPECIFIC LAB TO BE DRAWN:VANCOMYCIN TROUGH DATE TO... ONCE ONCE .XX Last administered on 07/22/17 05:53; Start 07/22/17 at 05:45; Stop 07/22/17 at 05:46; Status DC Heparin Sodium (Porcine) (Heparin Inj) 10,000 units STK-MED ONCE .ROUTE Last administered on 07/21/17 13:44; Start 07/21/17 at 13:44; Stop 07/21/17 at 13:45; Status DC Vancomycin HCl (Vancomycin Inj) 1,000 mg STK-MED ONCE .ROUTE Last administered on 07/21/17 14:43; Start 07/21/17 at 14:10; Stop 07/21/17 at 14:11; Status DC Iohexol (Omnipaque 350 Inj) 50 ml ONCE ONCE .XX ; Start 07/21/17 at 14:44; Stop 07/21/17 at 14:45; Status DC Fentanyl Citrate (fentaNYL INJ) 100 mcg STK-MED ONCE .ROUTE ; Start 07/21/17 at 15:57; Stop 07/21/17 at 15:58; Status DC Miscellaneous Information ALL NURSING DEPARTME... UNSCH PRN .XX SEE LABEL COMMENTS; Start 07/21/17 at 15:49; Stop 07/22/17 at 15:48; Status DC Miscellaneous Information ALL NURSING DEPARTME... UNSCH PRN .XX SEE LABEL COMMENTS; Start 07/21/17 at 15:49; Stop 07/22/17 at 15:48; Status Cancel Potassium Chloride (KCl) 40 meq ONCE ONCE PO Last administered on 07/23/17 18: 59; Start 07/23/17 at 18:45; Stop 07/23/17 at 18:53; Status DC Lisinopril (Prinivil) 10 mg DAILY PO Last administered on 07/24/17 09:02; Start 07/23/17 at 18:45; Stop 07/24/17 at 19:25; Status DC Miscellaneous Information SPECIFIC LAB TO BE KARLA... ONCE ONCE .XX Last administered on 07/25/17 05:45; Start 07/25/17 at 05:45; Stop 07/25/17 at 05:46; Status DC Bupivacaine HCl (Marcaine Pf 0.5% Inj) 30 ml STK-MED ONCE .ROUTE ; Start at 09:24; Stop 07/24/17 at 09:25; Status DC Lidocaine HCl (Xylocaine 1% Inj (50 ml)) 50 ml STK-MED ONCE .ROUTE ; Start at 09:24; Stop 07/24/17 at 09:25; Status DC Sodium Chloride (NS Flush) 2 ml UNSCH PRN IV FLUSH FLUSH AFTER USING IV ACCESS Last administered on 07/27/17 07:21; Start 07/24/17 at 11:00 Sodium Chloride (NS Flush) 2 ml BID IV FLUSH Last administered on 07/26/17 21: 08; Start 07/24/17 at 21:00 Miscellaneous Information (Post-op Orders (for Pharmacy)) STAT ONCE XX ; Start 07/24/17 at 11:00; Stop 07/24/17 at 12:36; Status DC Hydromorphone HCl (Dilaudid Pf Inj) 1 mg Q3H PRN IV BREAKTHROUGH PAIN Last administered on 07/27/17 07:20; Start 07/24/17 at 11:00 Hydromorphone HCl (Dilaudid) 1 mg Q4H PRN PO PAIN SCALE 3 TO 5; Start 07/24/17 at 11:00; Stop 07/24/17 at 19:32; Status DC Hydromorphone HCl (Dilaudid) 2 mg Q4H PRN PO PAIN SCALE 6 TO 10 Last administered on 07/24/17 17:48; Start 07/24/17 at 11:00; Stop 07/24/17 at 19:32; Status DC Naloxone HCl (Narcan Inj) 0.4 mg UNSCH PRN IV SEE LABEL COMMENTS; Start at 11:00 Hydromorphone HCl (*DILAUDID PF INJ PERIprocedural ONLY) 1 mg STK-MED ONCE .ROUTE Last administered on 07/24/17 11:26; Start 07/24/17 at 11:26; Stop at 11:27; Status DC Miscellaneous Information ALL NURSING DEPARTME... UNSCH PRN .XX SEE LABEL COMMENTS; Start 07/24/17 at 10:55; Stop 07/25/17 at 10:54; Status DC Vancomycin HCl (Vancomycin Inj) 500 mg STK-MED ONCE .ROUTE Last administered on 07/24/17 13:59; Start 07/24/17 at 11:54; Stop 07/24/17 at 11:55; Status DC Vancomycin HCl (Vancomycin Inj) 1,000 mg STK-MED ONCE .ROUTE ; Start 07/24/17 at 11:55; Stop 07/24/17 at 11:56; Status DC Hydromorphone HCl (*DILAUDID PF INJ PERIprocedural ONLY) 1 mg STK-MED ONCE .ROUTE Last administered on 07/24/17 13:20; Start 07/24/17 at 13:20; Stop at 13:21; Status DC Lisinopril (Prinivil) 20 mg DAILY PO Last administered on 07/25/17 08:46; Start 07/25/17 at 09:00; Stop 07/25/17 at 14:49; Status DC Oxycodone HCl (Roxicodone) 10 mg Q4H PRN PO pain 6-10 Last administered on 07/27 09:03; Start 07/24/17 at 19:30 Oxycodone HCl (Roxicodone) 5 mg Q4H PRN PO pain 3-5; Start 07/24/17 at 19:30 Lisinopril (Prinivil) 20 mg BID PO Last administered on 07/26/17 08:50; Start 07/25/17 at 21:00; Stop 07/26/17 at 17:04; Status DC Lisinopril (Prinivil) 40 mg DAILY PO Last administered on 07/27/17 09:06; Start 07/27/17 at 09:00 Lisinopril (Prinivil) 20 mg ONCE ONCE PO Last administered on 07/26/17 17:00 ; Start 07/26/17 at 17:00; Stop 07/26/17 at 18:00; Status DC Other Results Microbiology Date/Time Source Procedure Growth Status 07/24/17 10:15 Wound Foot Fungal Smear - Final NO FUNGAL ELEMENTS SEEN. Resulted 07/24/17 10:15 Wound Foot Fungal Culture Pending Resulted 07/24/17 10:15 Wound Foot Acid Fast Stain - Final NO ACID FAST BACILLI SEEN Resulted 07/24/17 10:15 Wound Foot Mycobacterial Culture Pending Resulted 07/24/17 10:15 Wound Foot Gram Stain - Final Complete 07/24/17 10:15 Wound Culture - Final S. Aureus Mrsa Complete Exam-Podiatry Constitutional General appearance: uncomfortable Nutritional status: normal Orientation: alert and oriented x3 Dermatological Exam Skin Temp - Right: Within Normal Limits Skin Texture - Right: Within Normal Limits Skin Elasticity - Right: Within Normal Limits Skin Tugor - Right: Within Normal Limits Hair Growth - Right: Within Normal Limits Pigmentation - Right: Within Normal Limits Skin Temp - Left: Within Normal Limits Skin Texture - Left: Within Normal Limits Skin Elasticity - Left: Within Normal Limits Skin Tugor - Left: Within Normal Limits Hair Growth - Left: Within Normal Limits Pigmentation - Left: Within Normal Limits Ulcers: Location/Measurements Wound VAC removed. Granulation tissue seen. Active bleeding proximally. No purulence or cellulitis Vascular/Lymphatic Exam R Dorsails Pedis: Doppler L Dorsails Pedis: Doppler R Posterior Tibial: Doppler L Posterior Tibial: Doppler Neurologic Exam Present on right: Tingling, Paraesthesia Present on left: Tingling, Paraesthesia Musculoskeletal Exam Details Left first ray amputation Muscle Strength Dorsiflexion (Right): Normal Plantarflexion (Right): Normal Inversion (Right): Normal Eversion (Right): Normal Digital (Right): Normal Dorsiflexion (Left): Normal Plantarflexion (Left): Normal Inversion (Left): Normal Eversion (Left): Normal Digital (Left): Normal Foot Range of Motion Dorsiflexion (Right): Normal Plantarflexion (Right): Normal Inversion (Right): Normal Eversion (Right): Normal Digital (Right): Normal Dorsiflexion (Left): Normal Plantarflexion (Left): Normal Inversion (Left): Normal Eversion (Left): Normal Digital (Left): Normal Assessment & Plan Diagnosis: (1) Diabetes mellitus with peripheral angiopathy with gangrene ICD Codes: E11.52 - Type 2 diabetes mellitus with diabetic peripheral angiopathy with gangrene Status: Resolved (2) Foot ulceration ICD Codes: L97.509 - Non-pressure chronic ulcer of other part of unspecified foot with unspecified severity Status: Acute A/P PLAN: Negative pressure wound VAC reapplied. Continue wound VAC therapy. New culture on next dressing change. Await CBC results. Problem Qualifiers (1) Diabetes mellitus with peripheral angiopathy with gangrene: Qualified Codes: E11.52 - Type 2 diabetes mellitus with diabetic peripheral angiopathy with gangrene (2) Foot ulceration: Qualified Codes: L97.523 - Non-pressure chronic ulcer of other part of left foot with necrosis of muscle Gamal Arvizu DPM Jul 27, 2017 09:10
[2017-07-27 12:29] LABS: AUTOMATED NEUTROPHIL # 11.7 TH/MM3 (1.8-7.7); BASOPHIL # 0.1 TH/MM3 (0-0.2); BASOPHIL % 0.7 % (0.0-2.0); EOSINOPHIL # 0.3 TH/MM3 (0-0.4); EOSINOPHIL % 2.1 % (0.0-4.0); HEMATOCRIT 28.5 % (39.0-51.0); HEMO FLAGS DIFF FINAL; LYMPH % 11.7 % (9.0-44.0); LYMPHOCYTE # 1.8 TH/MM3 (1.0-4.8); MEAN CELL VOLUME 82.2 FL (80.0-100.0); MEAN CORPUSCULAR HEMOGLOBIN 26.4 PG (27.0-34.0); MEAN CORPUSCULAR HGB CONC 32.1 % (32.0-36.0); NEUT % 77.5 % (16.0-70.0); PLATELET COUNT 516 TH/MM3 (150-450); RED BLOOD COUNT 3.47 MIL/MM3 (4.50-5.90); RED CELL DISTRIBUTION WIDTH 17.6 % (11.6-17.2); WHITE BLOOD COUNT 15.1 TH/MM3 (4.0-11.0)
[2017-07-27] MEDS: SODIUM CHLORIDE 0.9% FLUSH 10 ML FLUSH IV FLUSH SCH ×2 (12:37→20:44)
[2017-07-27] MEDS: VANCOMYCIN INJ 1,500 MG in SODIUM CHLORID 0.9% 500 ML INJ 500 ML IV SCH (12:37)
[2017-07-27] MEDS: CYCLOBENZAPRINE HCL 10 MG TAB PO PRN (15:56)
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
[2017-07-27] MEDS: ATORVASTATIN 40 MG TAB PO SCH (20:43)
[2017-07-27] MEDS: DONEPEZIL HCL 5 MG TAB PO SCH (20:43)
[2017-07-27] MEDS: LATANOPROST 0.005% OPHT SOLN 2.5 ML BTL EACH EYE SCH (20:47)
[2017-07-28] VITALS (7 sets, daily range): BP systolic 156–192; BP diastolic 72–88; PULSE 60–104; RESP 16–20; TEMP 98.4–99.1; O2SAT 92–97
[2017-07-28] MEDS: SODIUM CHLORIDE 0.9% FLUSH 10 ML FLUSH IV FLUSH PRN ×2 (00:52→06:25)
[2017-07-28] MEDS: HYDROmorphone HCL PF 1 MG/ML VIAL IV PRN ×5 (00:52→23:18)
[2017-07-28] MEDS: INSULIN NovoLIN REGULAR SUPPLEMENTAL SCALE SQ SCH ×4 (04:00→21:09)
[2017-07-28] MEDS: CHLORHEXIDINE GLUCONATE 2 % 1 PACK (2 CLOTHS) TOP SCH (04:00)
[2017-07-28] MEDS: hydrALAZINE HCL 50 MG TAB PO SCH ×3 (04:22→23:18)
[2017-07-28] MEDS: DILTIAZEM HCL 60 MG TAB PO SCH ×4 (04:22→21:11)
[2017-07-28] MEDS: HEPARIN SODIUM - SQ 10,000 UNITS/ML VIAL SQ SCH ×3 (04:25→21:11)
[2017-07-28] MEDS: VANCOMYCIN INJ 1,500 MG in SODIUM CHLORID 0.9% 500 ML INJ 500 ML IV SCH ×2 (04:49→23:18)
--- NOTE | 2017-07-28 08:08 | PD.POD ---
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 Patient underwent an arteriogram with intervention by Dr. Anand. 4 days ago he underwent a first ray amputation including the medial cuneiform of the left foot. A negative pressure wound therapy VAC was applied. VAC was changed yesterday. VAC appears to be functioning well. Patient is resting on his lateral foot which is sore. Past Med/Surg/Social History Past Medical History Endocrine: REPORTS HX OF: Diabetes mellitus, Graves disease Cardiovascular: REPORTS HX OF: Hypertension, Peripheral vascular dz Gastrointestinal: REPORTS HX OF: Other GI history (prior GI bleed, pt finished c. diff treatment on friday 05/25) Musculoskeletal: REPORTS HX OF: Other musculoskeletal hx (L. shoulder pain worsen after his arm was injured in latest hospitalization) Cancer/Hematology: REPORTS HX OF: Anemia Past Surgical History Gastrointestinal: DENIES HX OF: Colectomy, total Musculoskeletal: REPORTS HX OF: Other musculoskeletal srg (resection of the first metatarsal head and sesamoids) Social History Smoking Status: Unknown If Ever Smoked Review of Systems Notes No changes in his 14 point review of systems exam since yesterday Objective Vital Signs Vital Signs Date Time Temp Pulse Resp B/P (MAP) Pulse Ox O2 Delivery O2 Flow Rate FiO2 07/28/17 04:00 99.1 70 16 168/77 (107) 93 07/28/17 00:52 99.0 68 16 156/72 (100) 92 07/27/17 20:16 71 07/27/17 20:00 98.9 64 18 146/71 (96) 92 07/27/17 16:00 98.7 66 18 139/64 (89) 91 07/27/17 13:16 96 07/27/17 12:00 98.0 67 18 144/66 (92) 93 Coded Allergies: Sulfa (Sulfonamide Antibiotics) (Verified Allergy, Severe, Anaphylaxis, ) metronidazole (Verified Allergy, Severe, Fever, colitis, 07/07/17) While being treated for Cdiff. Doubt if true allergy. penicillin G (Verified Allergy, Severe, Anaphylaxis, 07/07/17) sulfamethoxazole (Verified Allergy, Severe, Anaphylaxis, 07/07/17) trimethoprim (Verified Allergy, Severe, Anaphylaxis, 07/07/17) erythromycin base (Verified Allergy, Intermediate, Rash, 07/07/17) aspirin (Verified Allergy, Unknown, 07/07/17) oxycodone (Verified Allergy, Unknown, 07/07/17) PT states oxycodone is fine, but percodan is too strong MRI PRECAUTION (Verified Adverse Reaction, Severe, BLADDER STIMULATOR, ) BRAIN ONLY ON RECEIVE ONLY COIL, P.O. 01/11/17, DML acetaminophen (Verified Adverse Reaction, Unknown, Psychosis, 07/07/17) meperidine (Verified Adverse Reaction, Unknown, Psychosis, 07/07/17) morphine (Verified Adverse Reaction, Unknown, Psychosis, 07/07/17) Uncoded Allergies: surgical tape (Allergy, Severe, 12/15/13) Medications and IVs Current Medications Etomidate (Amidate Inj) 40 mg STK-MED ONCE .ROUTE ; Start 07/14/17 at 00:32; Stop 07/14/17 at 00:33; Status DC Propofol 100 ml @ As Directed STK-MED ONCE .ROUTE ; Start 07/14/17 at 00:35; Stop 07/14/17 at 00:36; Status DC IV Flush (NS Flush) 2 ml UNSCH PRN IV FLUSH FLUSH AFTER USING IV ACCESS; Start 07/14/17 at 00:45; Stop 07/14/17 at 03:47; Status DC Vancomycin HCl 1450 mg/Sodium Chloride 514.5 ml @ 250 mls/hr ONCE ONCE IV Last administered on 07/14/17 02:36; Start 07/14/17 at 01:30; Stop 07/14/17 at 03:33; Status DC Aztreonam 2000 mg/ Sodium Chloride 100 ml @ 200 mls/hr ONCE ONCE IV Last administered on 07/14/17 02:08; Start 07/14/17 at 01:30; Stop 07/14/17 at 01:59 ; Status DC Racepinephrine (Racepinephrine 2.25% Neb) 0.5 ml ONCE ONCE NEB Last administered on 07/14/17 01:36; Start 07/14/17 at 01:30; Stop 07/14/17 at 01:31 ; Status DC Methylprednisolone Sodium Succinate (SoluMEDROL INJ) 60 mg ONCE ONCE IVP Last administered on 07/14/17 01:44; Start 07/14/17 at 01:30; Stop 07/14/17 at 01:31 ; Status DC Albuterol/ Ipratropium (Duoneb Neb) 1 ampule Q15M INH Last administered on 07/14 01:48; Start 07/14/17 at 01:30; Stop 07/14/17 at 02:01; Status DC Etomidate (Amidate Inj) 30 mg ONCE ONCE IV PUSH Last administered on 02:09; Start 07/14/17 at 02:00; Stop 07/14/17 at 02:02; Status DC Rocuronium [place] (Zemuron Inj) 60 mg BOLUS ONCE IV Last administered on 07/14 02:08; Start 07/14/17 at 02:00; Stop 07/14/17 at 02:02; Status DC Propofol 100 ml @ 2.85 mls/hr Q35H6M PRN IV Ordered RASS Last administered on 01:37; Start 07/14/17 at 02:02; Stop 07/16/17 at 12:44; Status DC Midazolam HCl (Versed Inj) 5 mg STK-MED ONCE .ROUTE ; Start 07/14/17 at 02:30; Stop 07/14/17 at 02:31; Status DC Sodium Chloride 1,000 ml @ 999 mls/hr BOLUS ONCE IV Last administered on 07/14 03:32; Start 07/14/17 at 03:00; Stop 07/14/17 at 04:00; Status DC Midazolam HCl (Versed Inj) 5 mg ONCE ONCE IV PUSH Last administered on 03:06; Start 07/14/17 at 03:15; Stop 07/14/17 at 03:16; Status DC Midazolam HCl 100 ml @ 2 mls/hr Q50H PRN IV SEDATION Last administered on 03:39; Start 07/14/17 at 03:01; Stop 07/15/17 at 06:31; Status DC Midazolam HCl 100 ml @ As Directed STK-MED ONCE .ROUTE ; Start 07/14/17 at 03: 17; Stop 07/14/17 at 03:18; Status DC Aspirin (Aspirin Chew) 81 mg DAILY CHEW Last administered on 07/20/17 08:37; Start 07/14/17 at 09:00; Status Future Hold Atorvastatin Calcium (Lipitor) 40 mg HS PO Last administered on 07/27/17 20:43 ; Start 07/14/17 at 21:00 Citalopram Hydrobromide (CeleXA) 60 mg DAILY PO Last administered on 07/27/17 09:05; Start 07/14/17 at 09:00 Cyclobenzaprine HCl (Flexeril) 10 mg Q8HR PO Last administered on 07/15/17 04: 21; Start 07/14/17 at 06:00; Stop 07/15/17 at 06:31; Status DC Donepezil HCl (Aricept) 10 mg HS PO Last administered on 07/27/17 20:43; Start 07/14/17 at 21:00 Gabapentin (Neurontin) 100 mg TID PO ; Start 07/14/17 at 09:00; Stop 07/15/17 at 06:31; Status DC Lactobacillus Acidophilus (Lactinex) 1 tab TIDAC PO Last administered on 15:56; Start 07/14/17 at 08:00 Ascorbic Acid (Vitamin C) 1,000 mg DAILY PO Last administered on 07/27/17 09: 04; Start 07/14/17 at 09:00 Ferrous Sulfate (Ferrous Sulfate) 325 mg BIDPC PO Last administered on 15:57; Start 07/14/17 at 09:00 Budesonide/ Formoterol Fumarate (Symbicort 80-4.5 Mcg Inh) 1 puff BID INH Last administered on 07/25/17 08:52; Start 07/14/17 at 09:00 Multivitamins/ Minerals Therapeutic (Theragran M Tab) 1 tab DAILY PO Last administered on 07/27/17 09:04; Start 07/14/17 at 09:00 Latanoprost (Xalatan 0.005% Opth Soln) 1 drop HS EACH EYE Last administered on 07/27/17 20:47; Start 07/14/17 at 21:00 Sodium Chloride (NS Flush) 2 ml UNSCH PRN .XX FLUSH AFTER USING IV ACCESS; Start 07/14/17 at 03:30; Stop 07/24/17 at 12:35; Status DC Sodium Chloride (NS Flush) 2 ml BID .XX Last administered on 07/23/17 21:20; Start 07/14/17 at 09:00; Stop 07/24/17 at 12:35; Status DC Acetaminophen (Tylenol) 650 mg Q6H PRN PO FEVER >101F; Start 07/14/17 at 03:30 ; Stop 07/14/17 at 03:47; Status DC Morphine Sulfate (Morphine Inj) 2 mg Q2H PRN IV PAIN SCALE 6 TO 10; Start 07/14 at 03:30; Stop 07/14/17 at 03:47; Status DC Famotidine (Pepcid Inj) 20 mg Q12HR IV PUSH Last administered on 07/14/17 20: 45; Start 07/14/17 at 09:00; Stop 07/15/17 at 06:31; Status DC Midazolam HCl (Versed Inj) 2 mg Q1H PRN IV SEDATION; Start 07/14/17 at 03:30; Stop 07/15/17 at 06:31; Status DC Artificial Tears (Tears Naturale Opth Soln) 1 drop TID EACH EYE Last administered on 07/25/17 12:28; Start 07/14/17 at 09:00 Ondansetron HCl (Zofran Inj) 4 mg Q6H PRN IV NAUSEA OR VOMITING; Start at 03:30 Albuterol/ Ipratropium (Duoneb Neb) 1 ampule Q6HR NEB INH Last administered on 07/17/17 07:39; Start 07/14/17 at 04:00; Stop 07/18/17 at 03:59; Status DC Albuterol/ Ipratropium (Duoneb Neb) 1 ampule Q2HR NEB PRN INH WHEEZING Last administered on 07/21/17 02:00; Start 07/14/17 at 03:30 Heparin Sodium (Porcine) (Heparin Inj) 5,000 units Q8H SQ Last administered on 07/28/17 04:25; Start 07/14/17 at 06:00 Miscellaneous Information 1 Q361D XX ; Start 07/14/17 at 03:30 Chlorhexidine Gluconate (Chlorhexidine 2% Cloth) Taper DAILY@04 TOP Last administered on 07/21/17 01:37; Start 07/14/17 at 04:00; Stop 07/10/18 at 03:59 Chlorhexidine Gluconate (Chlorhexidine 2% Cloth) 3 pack UNSCH PRN TOP HYGIENIC CARE; Start 07/14/17 at 03:30 Senna/Docusate Sodium (Medina-Colace) 1 tab BID PO Last administered on 20:43; Start 07/14/17 at 09:00 Magnesium Hydroxide (Milk Of Magnesia Liq) 30 ml Q12H PRN PO MILD - MODERATE CONSTIPATION; Start 07/14/17 at 03:30 Sennosides (Senokot) 17.2 mg Q12H PRN PO MODERATE - SEVERE CONSTIPATION; Start 07/14/17 at 03:30 Bisacodyl (Dulcolax Supp) 10 mg DAILY PRN RECTAL SEVERE CONSITIPATION; Start at 03:30 Lactulose (Lactulose Liq) 30 ml DAILY PRN PO SEVERE CONSITIPATION; Start at 03:30; Stop 07/27/17 at 17:16; Status DC Pharmacy Profile Note 0 ml @ 0 mls/hr UNSCH OTHER ; Start 07/14/17 at 03:30 Vancomycin HCl 1000 mg/Sodium Chloride 250 ml @ 250 mls/hr ONCE ONCE IV ; Start 07/14/17 at 03:30; Stop 07/14/17 at 04:29; Status UNV Hydromorphone HCl (Dilaudid Pf Inj) 0.5 mg Q4H PRN IV PAIN 1-10 Last administered on 07/16/17 10:32; Start 07/14/17 at 04:00; Stop 07/16/17 at 12:44 ; Status DC Fentanyl Citrate 250 ml @ 5 mls/hr Q24H PRN IV SEDATION Last administered on 04:29; Start 07/14/17 at 03:56; Stop 07/16/17 at 12:44; Status DC Hydralazine HCl (Apresoline Inj) 20 mg Q4H PRN IV PUSH SBP>160, DBP>90 Last administered on 07/26/17 08:50; Start 07/14/17 at 04:00 Pharmacy Profile Note 0 ml @ 0 mls/hr UNSCH OTHER ; Start 07/14/17 at 05:30; Stop 07/14/17 at 05:30; Status DC Vancomycin HCl 1000 mg/Sodium Chloride 250 ml @ 250 mls/hr ONCE ONCE IV ; Start 07/14/17 at 05:30; Stop 07/14/17 at 06:29; Status UNV Dextrose (D50w (Vial) Inj) 50 ml UNSCH PRN IV HYPOGLYCEMIA-SEE COMMENTS; Start 07/14/17 at 05:30; Stop 07/14/17 at 10:45; Status DC Glucagon (Glucagon Inj) 1 mg UNSCH PRN OTHER HYPOGLYCEMIA-SEE COMMENTS; Start 07/14/17 at 05:30; Stop 07/14/17 at 10:45; Status DC Insulin Aspart (NovoLOG SUPPLEMENTAL SCALE) 1 ACHS SLIDING SCALE SQ Last administered on 07/14/17 06:42; Start 07/14/17 at 07:00; Stop 07/14/17 at 10:10 ; Status DC Vancomycin HCl 1500 mg/Sodium Chloride 515 ml @ 250 mls/hr Q12H IV Last administered on 07/16/17 06:01; Start 07/14/17 at 14:00; Stop 07/16/17 at 08:58 ; Status DC Miscellaneous Information SPECIFIC LAB TO BE DRAWN:VANCOMYCIN TROUGH DATE TO... ONCE ONCE .XX ; Start 07/16/17 at 01:45; Stop 07/16/17 at 01:46; Status DC Sodium Chloride 1,000 ml @ 84 mls/hr [id number] IV Last administered on 00:19; Start 07/14/17 at 11:00; Stop 07/16/17 at 12:44; Status DC Dextrose (D50w (Vial) Inj) 50 ml UNSCH PRN IV HYPOGLYCEMIA-SEE COMMENTS; Start 07/14/17 at 10:15; Stop 07/17/17 at 09:56; Status DC Glucagon (Glucagon Inj) 1 mg UNSCH PRN OTHER HYPOGLYCEMIA-SEE COMMENTS; Start 07/14/17 at 10:15; Stop 07/17/17 at 09:56; Status DC Insulin Human Regular (NovoLIN R SUPPLEMENTAL SCALE) 1 Q4H SQ Last administered on 07/15/17 06:48; Start 07/14/17 at 11:00; Stop 07/16/17 at 17:20 ; Status DC Potassium Chloride 100 ml @ 50 mls/hr Q2H PRN IV For Potassium 2.8 - 3.2 mEq/ L Last administered on 07/18/17 16:54; Start 07/14/17 at 10:15; Stop 07/23/17 at 13:47; Status DC Potassium Chloride 100 ml @ 50 mls/hr Q2H PRN IV For Potassium 2.8 - 3.2 mEq/L ; Start 07/14/17 at 10:15; Stop 07/23/17 at 13:47; Status DC Potassium Bicarb/ Potassium Chloride (K-Lyte Cl Eff) 50 meq UNSCH PRN PO For Potassium 3.3 - 3.5 mEq/L; Start 07/14/17 at 10:15; Stop 07/23/17 at 13:47; Status DC Potassium Chloride 100 ml @ 25 mls/hr UNSCH PRN IV For Potassium 3.3 - 3.5 mEq /L Last administered on 07/20/17 17:13; Start 07/14/17 at 10:15; Stop 07/23/17 at 13:47; Status DC Potassium Chloride 100 ml @ 50 mls/hr Q2H PRN IV For Potassium 3.3 - 3.5 mEq/L ; Start 07/14/17 at 10:15; Stop 07/23/17 at 13:47; Status DC Magnesium Sulfate 4 gm/Sodium Chloride 100 ml @ 50 mls/hr UNSCH PRN IV For Magnesium 0.9 - 1.1 mg/dL; Start 07/14/17 at 10:15; Stop 07/23/17 at 13:47; Status DC Magnesium Oxide (Mag-Ox) 800 mg UNSCH PRN PO For Magnesium 1.2 - 1.6 mg/dL; Start 07/14/17 at 10:15; Stop 07/23/17 at 13:47; Status DC Magnesium Sulfate 2 gm/Sodium Chloride 100 ml @ 50 mls/hr UNSCH PRN IV For Magnesium 1.2 - 1.6 mg/dL; Start 07/14/17 at 10:15; Stop 07/23/17 at 13:47; Status DC Potassium Phosphate (K-Phos) 2,000 mg Q4H PRN PO For Phosphorus < 2.5 mg/dL; Start 07/14/17 at 10:15; Stop 07/23/17 at 13:47; Status DC Sodium Phosphate 30 mmol/Sodium Chloride 250 ml @ 42 mls/hr UNSCH PRN IV For Phosphorus < 2.5 mg/dL; Start 07/14/17 at 10:15; Stop 07/23/17 at 13:47; Status DC Potassium Phosphate (K-Phos) 2,000 mg UNSCH PRN PO/TUBE SEE LABEL COMMENTS; Start 07/14/17 at 10:15; Stop 07/23/17 at 13:47; Status DC Potassium Phosphate 30 mmol/ Sodium Chloride 260 ml @ 42 mls/hr UNSCH PRN IV SEE LABEL COMMENTS; Start 07/14/17 at 10:15; Stop 07/23/17 at 13:47; Status DC Cyclobenzaprine HCl (Flexeril) 10 mg Q8H PRN PO muscle spasms Last administered on 07/27/17 15:56; Start 07/15/17 at 06:15 Famotidine (Pepcid Liq) 20 mg BID NG Last administered on 07/24/17 20:09; Start 07/15/17 at 09:00 Hydromorphone HCl (Dilaudid Pf Inj) 0.5 mg ONCE ONCE IV Last administered on 15:00; Start 07/15/17 at 15:00; Stop 07/15/17 at 15:01; Status DC Hydromorphone HCl (Dilaudid Pf Inj) 0.5 mg NOW ONCE IV PUSH ; Start 07/15/17 at 15:15; Stop 07/15/17 at 15:16; Status DC Furosemide (Lasix Inj) 40 mg STK-MED ONCE .ROUTE Last administered on 07:12; Start 07/16/17 at 07:12; Stop 07/16/17 at 07:13; Status DC Diltiazem HCl (Cardizem Inj) 25 mg STK-MED ONCE .ROUTE Last administered on 07:21; Start 07/16/17 at 07:21; Stop 07/16/17 at 07:22; Status DC Magnesium Sulfate/ Dextrose 100 ml @ 100 mls/hr Q1H IV Last administered on 08:45; Start 07/16/17 at 07:45; Stop 07/16/17 at 09:44; Status DC Potassium Chloride 100 ml @ 50 mls/hr Q2H IV Last administered on 07/16/17 09 :45; Start 07/16/17 at 07:45; Stop 07/16/17 at 11:44; Status DC Vancomycin HCl 1500 mg/Sodium Chloride 515 ml @ 250 mls/hr Q18H IV Last administered on 07/28/17 04:49; Start 07/17/17 at 00:00 Miscellaneous Information SPECIFIC LAB TO BE DRAWN:VANCO TROUGH DATE... ONCE ONCE .XX Last administered on 07/18/17 11:45; Start 07/18/17 at 11:45; Stop 07/18 at 11:46; Status DC Potassium Chloride (KCl) 40 meq NOW ONCE PO Last administered on 07/16/17 10: 32; Start 07/16/17 at 11:00; Stop 07/16/17 at 11:01; Status DC Hydromorphone HCl (Dilaudid Pf Inj) 0.5 mg Q2H PRN IV PAIN 6-10 or not taking po Last administered on 07/19/17 07:32; Start 07/16/17 at 14:00; Stop 07/19/17 at 07:52; Status DC Oxycodone HCl (Roxicodone) 5 mg Q4H PRN PO pain 1-5 Last administered on 19:30; Start 07/16/17 at 14:00; Stop 07/24/17 at 12:37; Status DC Diltiazem HCl (Cardizem) 60 mg Q6H PO Last administered on 07/28/17 04:22; Start 07/17/17 at 10:00 Dextrose (D50w (Vial) Inj) 50 ml UNSCH PRN IV HYPOGLYCEMIA-SEE COMMENTS; Start 07/17/17 at 09:00 Glucagon (Glucagon Inj) 1 mg UNSCH PRN OTHER HYPOGLYCEMIA-SEE COMMENTS; Start 07/17/17 at 09:00 Insulin Human Regular (NovoLIN R SUPPLEMENTAL SCALE) 1 Q6H SQ ; Start 07/17/17 at 10:00 Aztreonam 2000 mg/ Sodium Chloride 100 ml @ 200 mls/hr Q8H IV ; Start 07/17/17 at 10:00; Stop 07/17/17 at 10:02; Status DC Vancomycin HCl (VANCOMYCIN for oral use only) 125 mg QID PO Last administered on 07/27/17 20:54; Start 07/17/17 at 13:00; Stop 07/31/17 at 12:59 Hydromorphone HCl (Dilaudid Pf Inj) 0.5 mg ONCE ONCE IV PUSH Last administered on 07/17/17 14:40; Start 07/17/17 at 14:30; Stop 07/17/17 at 14:33; Status DC Hydralazine HCl (Apresoline) 50 mg Q8HR PO Last administered on 07/28/17 04:22 ; Start 07/18/17 at 09:30 Hydromorphone HCl (Dilaudid Pf Inj) 1 mg Q2H PRN IV PAIN 6-10 or not taking po Last administered on 07/24/17 15:43; Start 07/19/17 at 09:00; Stop 07/24/17 at 19: 32; Status DC Bumetanide (Bumex Inj) 1 mg ONCE ONCE IV PUSH Last administered on 07/20/17 08 :37; Start 07/20/17 at 08:00; Stop 07/20/17 at 08:01; Status DC Potassium Bicarb/ Potassium Chloride (K-Lyte Cl Eff) 50 meq ONCE ONCE PO Last administered on 07/21/17 09:35; Start 07/21/17 at 09:00; Stop 07/21/17 at 09: 01; Status DC Potassium Chloride 100 ml @ 100 mls/hr Q1H IV Last administered on 07/21/17 20 :41; Start 07/21/17 at 09:00; Stop 07/21/17 at 11:59; Status DC Miscellaneous Information SPECIFIC LAB TO BE DRAWN:VANCOMYCIN TROUGH DATE TO... ONCE ONCE .XX Last administered on 07/22/17 05:53; Start 07/22/17 at 05:45; Stop 07/22/17 at 05:46; Status DC Heparin Sodium (Porcine) (Heparin Inj) 10,000 units STK-MED ONCE .ROUTE Last administered on 07/21/17 13:44; Start 07/21/17 at 13:44; Stop 07/21/17 at 13:45; Status DC Vancomycin HCl (Vancomycin Inj) 1,000 mg STK-MED ONCE .ROUTE Last administered on 07/21/17 14:43; Start 07/21/17 at 14:10; Stop 07/21/17 at 14:11; Status DC Iohexol (Omnipaque 350 Inj) 50 ml ONCE ONCE .XX ; Start 07/21/17 at 14:44; Stop 07/21/17 at 14:45; Status DC Fentanyl Citrate (fentaNYL INJ) 100 mcg STK-MED ONCE .ROUTE ; Start 07/21/17 at 15:57; Stop 07/21/17 at 15:58; Status DC Miscellaneous Information ALL NURSING DEPARTME... UNSCH PRN .XX SEE LABEL COMMENTS; Start 07/21/17 at 15:49; Stop 07/22/17 at 15:48; Status DC Miscellaneous Information ALL NURSING DEPARTME... UNSCH PRN .XX SEE LABEL COMMENTS; Start 07/21/17 at 15:49; Stop 07/22/17 at 15:48; Status Cancel Potassium Chloride (KCl) 40 meq ONCE ONCE PO Last administered on 07/23/17 18: 59; Start 07/23/17 at 18:45; Stop 07/23/17 at 18:53; Status DC Lisinopril (Prinivil) 10 mg DAILY PO Last administered on 07/24/17 09:02; Start 07/23/17 at 18:45; Stop 07/24/17 at 19:25; Status DC Miscellaneous Information SPECIFIC LAB TO BE KARLA... ONCE ONCE .XX Last administered on 07/25/17 05:45; Start 07/25/17 at 05:45; Stop 07/25/17 at 05:46; Status DC Bupivacaine HCl (Marcaine Pf 0.5% Inj) 30 ml STK-MED ONCE .ROUTE ; Start at 09:24; Stop 07/24/17 at 09:25; Status DC Lidocaine HCl (Xylocaine 1% Inj (50 ml)) 50 ml STK-MED ONCE .ROUTE ; Start at 09:24; Stop 07/24/17 at 09:25; Status DC Sodium Chloride (NS Flush) 2 ml UNSCH PRN IV FLUSH FLUSH AFTER USING IV ACCESS Last administered on 07/28/17 06:25; Start 07/24/17 at 11:00 Sodium Chloride (NS Flush) 2 ml BID IV FLUSH Last administered on 07/27/17 20: 44; Start 07/24/17 at 21:00 Miscellaneous Information (Post-op Orders (for Pharmacy)) STAT ONCE XX ; Start 07/24/17 at 11:00; Stop 07/24/17 at 12:36; Status DC Hydromorphone HCl (Dilaudid Pf Inj) 1 mg Q3H PRN IV BREAKTHROUGH PAIN Last administered on 07/28/17 06:24; Start 07/24/17 at 11:00 Hydromorphone HCl (Dilaudid) 1 mg Q4H PRN PO PAIN SCALE 3 TO 5; Start 07/24/17 at 11:00; Stop 07/24/17 at 19:32; Status DC Hydromorphone HCl (Dilaudid) 2 mg Q4H PRN PO PAIN SCALE 6 TO 10 Last administered on 07/24/17 17:48; Start 07/24/17 at 11:00; Stop 07/24/17 at 19:32; Status DC Naloxone HCl (Narcan Inj) 0.4 mg UNSCH PRN IV SEE LABEL COMMENTS; Start at 11:00 Hydromorphone HCl (*DILAUDID PF INJ PERIprocedural ONLY) 1 mg STK-MED ONCE .ROUTE Last administered on 07/24/17 11:26; Start 07/24/17 at 11:26; Stop at 11:27; Status DC Miscellaneous Information ALL NURSING DEPARTME... UNSCH PRN .XX SEE LABEL COMMENTS; Start 07/24/17 at 10:55; Stop 07/25/17 at 10:54; Status DC Vancomycin HCl (Vancomycin Inj) 500 mg STK-MED ONCE .ROUTE Last administered on 07/24/17 13:59; Start 07/24/17 at 11:54; Stop 07/24/17 at 11:55; Status DC Vancomycin HCl (Vancomycin Inj) 1,000 mg STK-MED ONCE .ROUTE ; Start 07/24/17 at 11:55; Stop 07/24/17 at 11:56; Status DC Hydromorphone HCl (*DILAUDID PF INJ PERIprocedural ONLY) 1 mg STK-MED ONCE .ROUTE Last administered on 07/24/17 13:20; Start 07/24/17 at 13:20; Stop at 13:21; Status DC Lisinopril (Prinivil) 20 mg DAILY PO Last administered on 07/25/17 08:46; Start 07/25/17 at 09:00; Stop 07/25/17 at 14:49; Status DC Oxycodone HCl (Roxicodone) 10 mg Q4H PRN PO pain 6-10 Last administered on 07/28 04:23; Start 07/24/17 at 19:30 Oxycodone HCl (Roxicodone) 5 mg Q4H PRN PO pain 3-5; Start 07/24/17 at 19:30 Lisinopril (Prinivil) 20 mg BID PO Last administered on 07/26/17 08:50; Start 07/25/17 at 21:00; Stop 07/26/17 at 17:04; Status DC Lisinopril (Prinivil) 40 mg DAILY PO Last administered on 07/27/17 09:06; Start 07/27/17 at 09:00 Lisinopril (Prinivil) 20 mg ONCE ONCE PO Last administered on 07/26/17 17:00 ; Start 07/26/17 at 17:00; Stop 07/26/17 at 18:00; Status DC Other Results Laboratory Tests Test 07/27/17 11:58 White Blood Count 15.1 TH/MM3 Red Blood Count 3.47 MIL/MM3 Hemoglobin 9.2 GM/DL Hematocrit 28.5 % Mean Corpuscular Volume 82.2 FL Mean Corpuscular Hemoglobin 26.4 PG Mean Corpuscular Hemoglobin Concent 32.1 % Red Cell Distribution Width 17.6 % Platelet Count 516 TH/MM3 Mean Platelet Volume 7.0 FL Neutrophils (%) (Auto) 77.5 % Lymphocytes (%) (Auto) 11.7 % Monocytes (%) (Auto) 8.0 % Eosinophils (%) (Auto) 2.1 % Basophils (%) (Auto) 0.7 % Neutrophils # (Auto) 11.7 TH/MM3 Lymphocytes # (Auto) 1.8 TH/MM3 Monocytes # (Auto) 1.2 TH/MM3 Eosinophils # (Auto) 0.3 TH/MM3 Basophils # (Auto) 0.1 TH/MM3 CBC Comment DIFF FINAL Differential Comment Exam-Podiatry Constitutional General appearance: comfortable Nutritional status: normal Dermatological Exam Skin Temp - Right: Within Normal Limits Skin Texture - Right: Within Normal Limits Skin Elasticity - Right: Within Normal Limits Skin Tugor - Right: Within Normal Limits Hair Growth - Right: Within Normal Limits Pigmentation - Right: Within Normal Limits Skin Temp - Left: Within Normal Limits Skin Texture - Left: Within Normal Limits Skin Elasticity - Left: Within Normal Limits Skin Tugor - Left: Within Normal Limits Hair Growth - Left: Within Normal Limits Pigmentation - Left: Within Normal Limits Ulcers: Location/Measurements Negative pressure wound VAC in place and running over the amputation site of the left foot. No ascending cellulitis noted Vascular/Lymphatic Exam R Dorsails Pedis: Palpable L Dorsails Pedis: Palpable R Posterior Tibial: Palpable L Posterior Tibial: Palpable Neurologic Exam Present on right: Tingling, Paraesthesia Present on left: Tingling, Paraesthesia Musculoskeletal Exam Details Open amputation site of the left first ray Assessment & Plan Diagnosis: (1) Diabetes mellitus with peripheral angiopathy with gangrene ICD Codes: E11.52 - Type 2 diabetes mellitus with diabetic peripheral angiopathy with gangrene Status: Resolved (2) Foot ulceration ICD Codes: L97.509 - Non-pressure chronic ulcer of other part of unspecified foot with unspecified severity Status: Acute A/P PLAN: Stroked the nurse to offload the lateral foot. I would change his VAC dressing in 2 days and obtain a new culture. Continue to follow. Problem Qualifiers (1) Diabetes mellitus with peripheral angiopathy with gangrene: Qualified Codes: E11.52 - Type 2 diabetes mellitus with diabetic peripheral angiopathy with gangrene (2) Foot ulceration: Qualified Codes: L97.523 - Non-pressure chronic ulcer of other part of left foot with necrosis of muscle Gamal Arvizu DPM Jul 28, 2017 08:08
[2017-07-28] MEDS: FAMOTIDINE 40 MG/5 ML LIQ 50 ML BTL NG SCH ×2 (09:00→21:00)
[2017-07-28] MEDS: BUDESONIDE-FORMOTEROL 80/4.5 MCG INHALER INH SCH ×2 (09:00→21:00)
[2017-07-28] MEDS: ARTIFICIAL TEARS OPTH SOLN 15 ML BTL EACH EYE SCH ×3 (09:00→17:43)
[2017-07-28] MEDS: DOCUSATE SODIUM 50 MG/SENNA 8.6 MG TAB PO SCH ×2 (09:00→21:00)
[2017-07-28] MEDS: SODIUM CHLORIDE 0.9% FLUSH 10 ML FLUSH IV FLUSH SCH ×2 (10:04→21:08)
[2017-07-28] MEDS: CITALOPRAM HYDROBROMIDE 20 MG TAB PO SCH (10:04)
[2017-07-28] MEDS: VANCOMYCIN 500 MG VIAL (FOR ORAL USE ONLY) PO SCH (10:05)
[2017-07-28] MEDS: ASCORBIC ACID 500 MG TAB PO SCH (10:07)
[2017-07-28] MEDS: MULTIVITAMINS/MINERALS THERAPEUTIC TAB PO SCH (10:07)
[2017-07-28] MEDS: FERROUS SULFATE 325 MG (65 MG ELEMENTAL IRON) TAB PO SCH ×2 (10:08→17:42)
[2017-07-28] MEDS: LACTOBACILLUS ACIDOPHILUS TAB PO SCH ×3 (10:08→17:43)
[2017-07-28] MEDS: LISINOPRIL 20 MG TAB PO SCH (10:08)
--- NOTE | 2017-07-28 15:42 | HHI.IDPN ---
Subjective Subjective Remarks ID X cover for Dr Epps chart was reviewed is a 71 y/o CM with PMHx of left great toe surgery with MRSA. Patient has prior h/o Cdiff and refused to go home with any antibiotics per review of records. 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 Admitted to ICU with Severe Sepsis, Acute resp failure on vent, acute encephalopathy, Afib, flash pulm edema. Vascular surgery saw patient and pt has severe PID based on review of notes. sp Amputation left hallux with metatarsal and medial cuneiform left foot by Dr Arvizu on 07/24/17 pt is afebrile pt co severe L foot pain which he describes as unbearable no diarrhea Antibiotics vancomycin IV Vanco oral for cdiff Lines Line sites ok Past Medical History 1. Hypertension 2. COPD 3. Hyperlipidemia 4. dementia 5. Transient ischemic attack. 6. History of shingles 7. Glaucoma 8. History of appendectomy. 9. History of back surgery. 10. History of penile implant. 11. History of surgery for arachnoiditis. 12. Carotid artery surgery 13. History of C-difficile colitis. 14. Left knee septic arthritis. Allergies: Coded Allergies: Sulfa (Sulfonamide Antibiotics) (Verified Allergy, Severe, Anaphylaxis, ) metronidazole (Verified Allergy, Severe, Fever, colitis, 07/07/17) While being treated for Cdiff. Doubt if true allergy. penicillin G (Verified Allergy, Severe, Anaphylaxis, 07/07/17) sulfamethoxazole (Verified Allergy, Severe, Anaphylaxis, 07/07/17) trimethoprim (Verified Allergy, Severe, Anaphylaxis, 07/07/17) erythromycin base (Verified Allergy, Intermediate, Rash, 07/07/17) aspirin (Verified Allergy, Unknown, 07/07/17) oxycodone (Verified Allergy, Unknown, 07/07/17) PT states oxycodone is fine, but percodan is too strong MRI PRECAUTION (Verified Adverse Reaction, Severe, BLADDER STIMULATOR, ) BRAIN ONLY ON RECEIVE ONLY COIL, P.O. 01/11/17, DML acetaminophen (Verified Adverse Reaction, Unknown, Psychosis, 07/07/17) meperidine (Verified Adverse Reaction, Unknown, Psychosis, 07/07/17) morphine (Verified Adverse Reaction, Unknown, Psychosis, 07/07/17) Uncoded Allergies: surgical tape (Allergy, Severe, 12/15/13) Objective . Vital Signs Date Time Temp Pulse Resp B/P (MAP) Pulse Ox O2 Delivery O2 Flow Rate FiO2 07/28/17 08:04 21 07/28/17 08:00 98.9 69 20 178/82 (114) 97 07/28/17 04:00 99.1 70 16 168/77 (107) 93 07/28/17 00:52 99.0 68 16 156/72 (100) 92 07/27/17 20:16 71 07/27/17 20:00 98.9 64 18 146/71 (96) 92 07/27/17 16:00 98.7 66 18 139/64 (89) 91 . Laboratory Tests Test 07/27/17 11:58 White Blood Count 15.1 TH/MM3 Red Blood Count 3.47 MIL/MM3 Hemoglobin 9.2 GM/DL Hematocrit 28.5 % Mean Corpuscular Volume 82.2 FL Mean Corpuscular Hemoglobin 26.4 PG Mean Corpuscular Hemoglobin Concent 32.1 % Red Cell Distribution Width 17.6 % Platelet Count 516 TH/MM3 Mean Platelet Volume 7.0 FL Neutrophils (%) (Auto) 77.5 % Lymphocytes (%) (Auto) 11.7 % Monocytes (%) (Auto) 8.0 % Eosinophils (%) (Auto) 2.1 % Basophils (%) (Auto) 0.7 % Neutrophils # (Auto) 11.7 TH/MM3 Lymphocytes # (Auto) 1.8 TH/MM3 Monocytes # (Auto) 1.2 TH/MM3 Eosinophils # (Auto) 0.3 TH/MM3 Basophils # (Auto) 0.1 TH/MM3 CBC Comment DIFF FINAL Differential Comment Laboratory Tests Test 07/28/17 08:00 Creatinine 0.64 MG/DL Estimat Glomerular Filtration Rate 123 ML/MIN Imaging Last Impressions Foot X-Ray 07/24/17 0000 Signed Impressions: Service Date/Time: Monday, July 24, 2017 11:21 - CONCLUSION: Postop amputation. K. Leroy Willis MD Chest X-Ray 07/21/17 0000 Signed Impressions: Service Date/Time: Friday, July 21, 2017 07:49 - CONCLUSION: 1. Left lower lobe atelectasis versus pneumonia. There has been no significant change when compared to the prior exam. Yo Mcbride MD Lower Extremity Ultrasound 07/18/17 0000 Signed Impressions: Service Date/Time: Tuesday, July 18, 2017 10:04 - CONCLUSION: Normal examination. Bautista Hoff MD Head CT 07/14/17 0043 Signed Impressions: Service Date/Time: Friday, July 14, 2017 02:09 - CONCLUSION: No acute intracranial abnormality is identified. Jose Miller MD Ankle X-Ray 07/14/17 0000 Signed Impressions: Service Date/Time: Friday, July 14, 2017 01:48 - CONCLUSION: No acute left ankle abnormality is identified. Jose Miller MD Physical Exam GENERAL: No acute distress. Awake and alert. Comfortable HEENT: [place] conjunctiva, no petechia, no icterus, moist oral mucosa NECK: No swelling or adenopathy. Not tender, supple LUNGS: Clear breath sounds. HEART: Regular S1-S2. No audible murmur. ABDOMEN: Bowel sounds present, flat, nontender. EXTREMITIES: LLE - sp 1 st ray amputation, VAC in place with serosang dc, + some bl;eeding noted no ascending edema, erythema noted SKIN: No rash. NEUROLOGIC: Non focal. PSYCHIATRIC: Calm. 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 Urine with < 50,000 CFU bacteria, no WBCs. Likely asymptomatic colonization. Worsening leukocytosis today recent C.diff RECOMMENDATIONS Continue Vanco IV (target 15-20) DC Vanco oral. Patient needs 6 weeks IV. Explained to patient that given his allergy to flagyl would recommend consider stopping Vanco oral. Additionally concern for vanco toxicity (worsening neuropathy) and development of VRE. fu path of the bone Continue Lactinex. anticipate dc on IV vancomycin for around 6 weeks post op. nita Concepcion he is concerned about soft tissue infection and given his vascular supply issues he prefers we do IV antibiotics at this point. d.w pt and . Follow cultures Follow clinically. Please call me with path results for me to help with IV infusion orders. Marita Osborne MD Jul 28, 2017 15:42
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
[2017-07-28] MEDS: LATANOPROST 0.005% OPHT SOLN 2.5 ML BTL EACH EYE SCH (21:06)
[2017-07-28] MEDS: DONEPEZIL HCL 5 MG TAB PO SCH (21:11)
[2017-07-28] MEDS: ATORVASTATIN 40 MG TAB PO SCH (21:11)
[2017-07-29] VITALS (8 sets, daily range): BP systolic 135–179; BP diastolic 64–77; PULSE 63–72; RESP 16–21; TEMP 98–100.1; O2SAT 94–96
[2017-07-29] MEDS: INSULIN NovoLIN REGULAR SUPPLEMENTAL SCALE SQ SCH ×4 (02:42→21:02)
[2017-07-29] MEDS: DILTIAZEM HCL 60 MG TAB PO SCH ×4 (02:42→21:02)
[2017-07-29] MEDS: CHLORHEXIDINE GLUCONATE 2 % 1 PACK (2 CLOTHS) TOP SCH (04:00)
[2017-07-29] MEDS: hydrALAZINE HCL 50 MG TAB PO SCH ×4 (06:00→23:50)
[2017-07-29] MEDS: HEPARIN SODIUM - SQ 10,000 UNITS/ML VIAL SQ SCH ×3 (06:28→21:01)
[2017-07-29] MEDS: HYDROmorphone HCL PF 1 MG/ML VIAL IV PRN ×4 (06:29→23:51)
[2017-07-29] MEDS: ASCORBIC ACID 500 MG TAB PO SCH (09:05)
[2017-07-29] MEDS: LISINOPRIL 20 MG TAB PO SCH (09:05)
[2017-07-29] MEDS: FERROUS SULFATE 325 MG (65 MG ELEMENTAL IRON) TAB PO SCH ×2 (09:05→16:53)
[2017-07-29] MEDS: CITALOPRAM HYDROBROMIDE 20 MG TAB PO SCH (09:06)
[2017-07-29] MEDS: MULTIVITAMINS/MINERALS THERAPEUTIC TAB PO SCH (09:06)
[2017-07-29] MEDS: LACTOBACILLUS ACIDOPHILUS TAB PO SCH ×3 (09:06→16:53)
[2017-07-29] MEDS: DOCUSATE SODIUM 50 MG/SENNA 8.6 MG TAB PO SCH ×2 (09:07→21:00)
[2017-07-29] MEDS: BUDESONIDE-FORMOTEROL 80/4.5 MCG INHALER INH SCH ×2 (09:07→21:00)
[2017-07-29] MEDS: SODIUM CHLORIDE 0.9% FLUSH 10 ML FLUSH IV FLUSH SCH ×2 (09:07→21:03)
[2017-07-29] MEDS: ARTIFICIAL TEARS OPTH SOLN 15 ML BTL EACH EYE SCH ×3 (09:08→16:53)
[2017-07-29] MEDS: FAMOTIDINE 40 MG/5 ML LIQ 50 ML BTL NG SCH ×2 (09:10→21:00)
--- NOTE | 2017-07-29 14:05 | HHI.PR ---
Subjective Remarks Resting in bed no complaint today, no fever or chills Vanco VO stopped by the ID He will need 6 weeks of iv vancomycin Discussed with podiatry he informed me he will change dressing tomorrow, will need outpatient infusion antibiotic Objective Vitals Vital Signs Date Time Temp Pulse Resp B/P (MAP) Pulse Ox O2 Delivery O2 Flow Rate FiO2 07/29/17 13:17 98.0 65 18 135/64 (87) 95 07/29/17 10:23 94 21 07/29/17 09:15 63 07/29/17 08:50 98.1 65 18 161/74 (103) 96 07/29/17 04:00 98.3 66 18 179/77 (111) 95 07/29/17 00:00 98.2 65 16 160/71 (100) 94 07/28/17 20:00 98.9 82 16 172/84 (113) 07/28/17 18:55 18 07/28/17 17:53 104 192/88 (122) 07/28/17 16:00 98.4 60 18 165/80 (108) 96 I/O 07/28/17 07/28/17 07/28/17 07/29/17 07/29/17 07/29/17 07:00 15:00 23:00 07:00 15:00 23:00 Intake Total 480 ml 960 ml 784 ml Output Total 1100 ml 1300 ml 1200 ml Balance -620 ml -340 ml -416 ml Intake Oral 480 ml 960 ml 240 ml IV Total 544 ml Output Urine Total 1100 ml 1300 ml 1200 ml # Bowel Movements 1 0 Result Diagram: 07/27/17 1158 07/28/17 0800 Objective Remarks - GENERAL: This is a well-nourished, well-developed patient, in no apparent distress. SKIN: No rashes, warm and dry HEAD: Atraumatic. Normocephalic. EYES: Pupils equal round and reactive. Extraocular motions intact. No scleral icterus. ENT: Nose without bleeding, or drainage, Airway patent. NECK: Trachea midline. Supple CARDIOVASCULAR: Regular rate and rhythm without murmurs, gallops, or rubs. RESPIRATORY: Fair air entry bilaterally. No wheezes, rales, or rhonchi. GASTROINTESTINAL: Abdomen soft, non-tender, nondistended. Positive bowel sounds MUSCULOSKELETAL: Left foot first toe amputation, wound VAC in place NEUROLOGICAL: Awake and alert. Moves all extremity. Normal speech.no focal neurological deficit A/P Assessment and Plan 07/24: Blood pressure improved but still not optimized, increase lisinopril to 20 mg daily, patient on large doses of Dilaudid will DC and keep 1 mg every 3 hours for breakthrough, will add OxyContin 5 mg and 10 mg every 4 hours for pain scale 07/25: Blood pressure still not optimized will increase lisinopril to 20 twice a day, and monitor blood pressure, appreciate Dr. Steen note change dressing tomorrow or Thursday, appreciate [facility] follow [facility], if the wound is healing well then they will sign of 07/26: Increase hydralazine frequency to every 6 hours, make lisinopril 40 mg 1 , adjust pain medication, podiatry to follow up on dressing and wound VAC changes 07/27: Blood pressure better reading today, following pathology report is pending, cultures, podiatry following for wound VAC care 07/28: Continue iv antibiotic vancomycin by mouth and iv, expected 6 weeks of iv antibiotic at discharge, wound VAC functioned, awaiting pathology, podiatry following 07/29: By mouth Vanco stopped by ID, continue iv vancomycin probably will need 6 weeks, awaiting pathology, podiatry will change dressing tomorrow, ID to decide on the discharge iv antibiotic when pathology available A/P: 71 years old male with Diabetic ischemic foot ulcer with history of MRSA wound History of osteomyelitis -MRSA UTI( Pseudomonas) Hx C-diff Dementia PAF Uncontrolled hypertension Hypokalemia> replaced Plan: -Continue abx per ID- , Lactinex, Podiatry is following. Monitor for signs of infections ( Fever, WBC) WBC is trending down -Follow up on BC and urine cx from 07/18: NGTD - Vascular surgery is following- Dr. Anand Continue Cardizem 60mg Q6, Hydralazine 50mg Q8, on Hydralazine PRN, added lisinopril Monitor CBC, on FESO4 325mg BID S/P transfusion 2 units PRBC ( Hgb 6.8) On SSI with accuchecks Q6 DVT GI prophylaxis - Teds SCDs - Subcutaneous heparin - Selina Hammond MD Jul 29, 2017 14:05
[2017-07-29] MEDS: VANCOMYCIN INJ 1,500 MG in SODIUM CHLORID 0.9% 500 ML INJ 500 ML IV SCH (16:53)
[2017-07-29] MEDS ORDERED: ACETAMINOPHEN 500 MG CPLT PO PRN (18:15)
[2017-07-29] MEDS: LATANOPROST 0.005% OPHT SOLN 2.5 ML BTL EACH EYE SCH (21:00)
[2017-07-29] MEDS: DONEPEZIL HCL 5 MG TAB PO SCH (21:01)
[2017-07-29] MEDS: ATORVASTATIN 40 MG TAB PO SCH (21:01)
[2017-07-29] MEDS: hydrALAZINE HCL 20 MG/ML VIAL IV PUSH PRN (23:50)
[2017-07-30] VITALS (8 sets, daily range): BP systolic 156–170; BP diastolic 66–74; PULSE 63–82; RESP 18–24; TEMP 98–99.2; O2SAT 95–98
[2017-07-30] MEDS: INSULIN NovoLIN REGULAR SUPPLEMENTAL SCALE SQ SCH ×4 (04:00→21:58)
[2017-07-30] MEDS: CHLORHEXIDINE GLUCONATE 2 % 1 PACK (2 CLOTHS) TOP SCH (04:00)
[2017-07-30] MEDS: DILTIAZEM HCL 60 MG TAB PO SCH ×4 (04:11→21:58)
[2017-07-30] MEDS: HYDROmorphone HCL PF 1 MG/ML VIAL IV PRN ×2 (06:31→22:01)
[2017-07-30] MEDS: hydrALAZINE HCL 50 MG TAB PO SCH ×4 (06:31→17:33)
[2017-07-30] MEDS: HEPARIN SODIUM - SQ 10,000 UNITS/ML VIAL SQ SCH ×3 (06:31→21:58)
[2017-07-30] MEDS: LACTOBACILLUS ACIDOPHILUS TAB PO SCH ×3 (08:00→17:33)
[2017-07-30] MEDS: BUDESONIDE-FORMOTEROL 80/4.5 MCG INHALER INH SCH ×2 (09:00→21:00)
[2017-07-30] MEDS: DOCUSATE SODIUM 50 MG/SENNA 8.6 MG TAB PO SCH ×2 (09:00→21:00)
[2017-07-30] MEDS: SODIUM CHLORIDE 0.9% FLUSH 10 ML FLUSH IV FLUSH SCH ×2 (09:00→21:59)
[2017-07-30] MEDS: FAMOTIDINE 40 MG/5 ML LIQ 50 ML BTL NG SCH ×2 (09:00→21:00)
[2017-07-30] MEDS: ARTIFICIAL TEARS OPTH SOLN 15 ML BTL EACH EYE SCH ×3 (09:00→18:00)
[2017-07-30] MEDS: CITALOPRAM HYDROBROMIDE 20 MG TAB PO SCH (09:08)
[2017-07-30] MEDS: MULTIVITAMINS/MINERALS THERAPEUTIC TAB PO SCH (09:08)
[2017-07-30] MEDS: FERROUS SULFATE 325 MG (65 MG ELEMENTAL IRON) TAB PO SCH ×2 (09:08→17:33)
[2017-07-30] MEDS: LISINOPRIL 20 MG TAB PO SCH (09:08)
[2017-07-30] MEDS: ASCORBIC ACID 500 MG TAB PO SCH (09:08)
--- NOTE | 2017-07-30 10:09 | PD.VS.PN ---
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 Angioseal Subjective/Hospital Course Pt in bed in good spirits w/o complaints Wound VAC in place to Left foot Pt notes that his foot pain is "different" than before (tingling sensation) Objective Vitals/I&O Date Time Temp Pulse Resp B/P (MAP) Pulse Ox O2 Delivery O2 Flow Rate FiO2 07/30/17 08:00 98.8 67 18 169/74 (105) 96 07/30/17 04:00 99.2 82 24 164/68 (100) 97 07/30/17 03:14 63 07/30/17 00:00 99.1 82 20 170/66 (100) 97 07/29/17 20:00 99.6 72 21 178/76 (110) 96 07/29/17 16:45 100.1 69 19 174/76 (108) 96 07/29/17 13:17 98.0 65 18 135/64 (87) 95 07/29/17 10:23 94 21 07/30/17 07/30/17 07/30/17 07:00 15:00 23:00 Intake Total 420 ml Output Total 1400 ml Balance -980 ml Exam: GENERAL: A&OX3,NAD,GCS15 SKIN: Warm and dry./ Wound vac to left foot in place Pt with improved mobility to Left foot LE warm w/ motor intact Palpable L DP noted Laboratory Laboratory Tests Test 07/30/17 08:18 Creatinine 0.76 Estimat Glomerular Filtration Rate 101 Date/Time Source Procedure Growth Status 07/18/17 13:52 Blood Peripheral Aerobic Blood Culture - Final NO GROWTH IN 5 DAYS Complete 07/18/17 13:52 Blood Peripheral Anaerobic Blood Culture - Final NO GROWTH IN 5 DAYS Complete 07/18/17 09:35 Urine Clean Catch Urine Culture - Final NO GROWTH IN 48 HOURS. Complete 07/24/17 10:15 Wound Foot Fungal Smear - Final NO FUNGAL ELEMENTS SEEN. 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 Patient with adequate perfusion to L LE as he has a strong palpable L DP Plan Continue wound care-per podiatry Arranged out patient f/u Beatris MENDEZ 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
--- NOTE | 2017-07-30 10:23 | HHI.PR ---
Subjective Remarks patient just woke up, no acute complain, pain is tolerable, no fever or chills at the bedside, plan to change dressing today, discussed with the she would like to go for a [facility] rehabilitation Plan for outpatient iv vancomycin mostly for 6 weeks per ID Objective Vitals Vital Signs Date Time Temp Pulse Resp B/P (MAP) Pulse Ox O2 Delivery O2 Flow Rate FiO2 07/30/17 08:00 98.8 67 18 169/74 (105) 96 07/30/17 04:00 99.2 82 24 164/68 (100) 97 07/30/17 03:14 63 07/30/17 00:00 99.1 82 20 170/66 (100) 97 07/29/17 20:00 99.6 72 21 178/76 (110) 96 07/29/17 16:45 100.1 69 19 174/76 (108) 96 07/29/17 13:17 98.0 65 18 135/64 (87) 95 I/O 07/29/17 07/29/17 07/29/17 07/30/17 07/30/17 07/30/17 07:00 15:00 23:00 07:00 15:00 23:00 Intake Total 784 ml 480 ml 420 ml Output Total 1200 ml 550 ml 1400 ml Balance -416 ml -70 ml -980 ml Intake Oral 240 ml 480 ml 420 ml IV Total 544 ml Output Urine Total 1200 ml 550 ml 1400 ml # Bowel Movements 0 1 Result Diagram: 07/27/17 1158 07/30/17 0818 Objective Remarks - GENERAL: This is a well-nourished, well-developed patient, in no apparent distress. SKIN: No rashes, warm and dry HEAD: Atraumatic. Normocephalic. EYES: Pupils equal round and reactive. Extraocular motions intact. No scleral icterus. ENT: Nose without bleeding, or drainage, Airway patent. NECK: Trachea midline. Supple CARDIOVASCULAR: Regular rate and rhythm without murmurs, gallops, or rubs. RESPIRATORY: Fair air entry bilaterally. No wheezes, rales, or rhonchi. GASTROINTESTINAL: Abdomen soft, non-tender, nondistended. Positive bowel sounds MUSCULOSKELETAL: Left foot first toe amputation, wound VAC in place NEUROLOGICAL: Awake and alert. Moves all extremity. Normal speech.no focal neurological deficit A/P Assessment and Plan 07/24: Blood pressure improved but still not optimized, increase lisinopril to 20 mg daily, patient on large doses of Dilaudid will DC and keep 1 mg every 3 hours for breakthrough, will add OxyContin 5 mg and 10 mg every 4 hours for pain scale 07/25: Blood pressure still not optimized will increase lisinopril to 20 twice a day, and monitor blood pressure, appreciate Dr. Steen note change dressing tomorrow or Thursday, appreciate [facility], if the wound is healing well then they will sign of 07/26: Increase hydralazine frequency to every 6 hours, make lisinopril 40 mg 1 , adjust pain medication, podiatry to follow up on dressing and wound VAC changes 07/27: Blood pressure better reading today, following pathology report is pending, cultures, podiatry following for wound VAC care 07/28: Continue iv antibiotic vancomycin by mouth and iv, expected 6 weeks of iv antibiotic at discharge, wound VAC functioned, awaiting pathology, podiatry following 07/29: By mouth Vanco stopped by ID, continue iv vancomycin probably will need 6 weeks, awaiting pathology, podiatry will change dressing tomorrow, ID to decide on the discharge iv antibiotic when pathology available 07/30: Blood pressure still not optimized, I will had clonidine 0.1 mg twice a day, continue iv antibiotic, follow with podiatry for dressing changes, follow with ID for discharge iv antibiotic, by mouth Vanco has been stopped, continue iv Vanco A/P: 71 years old male with Diabetic ischemic foot ulcer with history of MRSA wound History of osteomyelitis -MRSA UTI( Pseudomonas) Hx C-diff Dementia PAF Uncontrolled hypertension Hypokalemia> replaced Plan: -Continue abx per ID- , Lactinex, Podiatry is following. Monitor for signs of infections ( Fever, WBC) WBC is trending down -Follow up on BC and urine cx from 07/18: NGTD - Vascular surgery is following- Dr. Anand Continue Cardizem 60mg Q6, Hydralazine 50mg Q8, on Hydralazine PRN, added lisinopril Monitor CBC, on FESO4 325mg BID S/P transfusion 2 units PRBC ( Hgb 6.8) On SSI with accuchecks Q6 DVT GI prophylaxis - Teds SCDs - Subcutaneous heparin - Pepcid Nemou,Marks MD Jul 30, 2017 10:23
[2017-07-30] MEDS ORDERED: PHARMACY ORDERED LAB ONE (11:45)
[2017-07-30] MEDS: CYCLOBENZAPRINE HCL 10 MG TAB PO PRN (13:09)
[2017-07-30] MEDS: cloNIDine HCL 0.1 MG TAB PO SCH ×2 (13:10→21:58)
--- NOTE | 2017-07-30 16:38 | PD.POD ---
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 Patient underwent an arteriogram with intervention by Dr. Anand. 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 A negative pressure wound therapy VAC was applied. VAC appears to be functioning well. Past Med/Surg/Social History Past Medical History Endocrine: REPORTS HX OF: Diabetes mellitus, Graves disease Cardiovascular: REPORTS HX OF: Hypertension, Peripheral vascular dz Gastrointestinal: REPORTS HX OF: Other GI history (prior GI bleed, pt finished c. diff treatment on friday 05/25) Musculoskeletal: REPORTS HX OF: Other musculoskeletal hx (L. shoulder pain worsen after his arm was injured in latest hospitalization) Cancer/Hematology: REPORTS HX OF: Anemia Past Surgical History Gastrointestinal: DENIES HX OF: Colectomy, total Musculoskeletal: REPORTS HX OF: Other musculoskeletal srg (resection of the first metatarsal head and sesamoids) Social History Smoking Status: Unknown If Ever Smoked Review of Systems Notes No changes in his 14 point review of systems exam from yesterday Objective Vital Signs Vital Signs Date Time Temp Pulse Resp B/P (MAP) Pulse Ox O2 Delivery O2 Flow Rate FiO2 07/30/17 16:00 98.0 75 18 156/70 (98) 97 07/30/17 12:00 98.1 70 18 163/72 (102) 98 07/30/17 10:25 97 21 07/30/17 08:00 98.8 67 18 169/74 (105) 96 07/30/17 04:00 99.2 82 24 164/68 (100) 97 07/30/17 03:14 63 07/30/17 00:00 99.1 82 20 170/66 (100) 97 07/29/17 20:00 99.6 72 21 178/76 (110) 96 07/29/17 16:45 100.1 69 19 174/76 (108) 96 Coded Allergies: Sulfa (Sulfonamide Antibiotics) (Verified Allergy, Severe, Anaphylaxis, ) metronidazole (Verified Allergy, Severe, Fever, colitis, 07/07/17) While being treated for Cdiff. Doubt if true allergy. penicillin G (Verified Allergy, Severe, Anaphylaxis, 07/07/17) sulfamethoxazole (Verified Allergy, Severe, Anaphylaxis, 07/07/17) trimethoprim (Verified Allergy, Severe, Anaphylaxis, 07/07/17) erythromycin base (Verified Allergy, Intermediate, Rash, 07/07/17) aspirin (Verified Allergy, Unknown, 07/07/17) oxycodone (Verified Allergy, Unknown, 07/07/17) PT states oxycodone is fine, but percodan is too strong MRI PRECAUTION (Verified Adverse Reaction, Severe, BLADDER STIMULATOR, ) BRAIN ONLY ON RECEIVE ONLY COIL, P.O. 01/11/17, DML acetaminophen (Verified Adverse Reaction, Unknown, Psychosis, 07/07/17) meperidine (Verified Adverse Reaction, Unknown, Psychosis, 07/07/17) morphine (Verified Adverse Reaction, Unknown, Psychosis, 07/07/17) Uncoded Allergies: surgical tape (Allergy, Severe, 12/15/13) Medications and IVs Current Medications Etomidate (Amidate Inj) 40 mg STK-MED ONCE .ROUTE ; Start 07/14/17 at 00:32; Stop 07/14/17 at 00:33; Status DC Propofol 100 ml @ As Directed STK-MED ONCE .ROUTE ; Start 07/14/17 at 00:35; Stop 07/14/17 at 00:36; Status DC IV Flush (NS Flush) 2 ml UNSCH PRN IV FLUSH FLUSH AFTER USING IV ACCESS; Start 07/14/17 at 00:45; Stop 07/14/17 at 03:47; Status DC Vancomycin HCl 1450 mg/Sodium Chloride 514.5 ml @ 250 mls/hr ONCE ONCE IV Last administered on 07/14/17 02:36; Start 07/14/17 at 01:30; Stop 07/14/17 at 03:33; Status DC Aztreonam 2000 mg/ Sodium Chloride 100 ml @ 200 mls/hr ONCE ONCE IV Last administered on 07/14/17 02:08; Start 07/14/17 at 01:30; Stop 07/14/17 at 01:59 ; Status DC Racepinephrine (Racepinephrine 2.25% Neb) 0.5 ml ONCE ONCE NEB Last administered on 07/14/17 01:36; Start 07/14/17 at 01:30; Stop 07/14/17 at 01:31 ; Status DC Methylprednisolone Sodium Succinate (SoluMEDROL INJ) 60 mg ONCE ONCE IVP Last administered on 07/14/17 01:44; Start 07/14/17 at 01:30; Stop 07/14/17 at 01:31 ; Status DC Albuterol/ Ipratropium (Duoneb Neb) 1 ampule Q15M INH Last administered on 07/14 01:48; Start 07/14/17 at 01:30; Stop 07/14/17 at 02:01; Status DC Etomidate (Amidate Inj) 30 mg ONCE ONCE IV PUSH Last administered on 02:09; Start 07/14/17 at 02:00; Stop 07/14/17 at 02:02; Status DC Rocuronium [place] (Zemuron Inj) 60 mg BOLUS ONCE IV Last administered on 07/14 02:08; Start 07/14/17 at 02:00; Stop 07/14/17 at 02:02; Status DC Propofol 100 ml @ 2.85 mls/hr Q35H6M PRN IV Ordered RASS Last administered on 01:37; Start 07/14/17 at 02:02; Stop 07/16/17 at 12:44; Status DC Midazolam HCl (Versed Inj) 5 mg STK-MED ONCE .ROUTE ; Start 07/14/17 at 02:30; Stop 07/14/17 at 02:31; Status DC Sodium Chloride 1,000 ml @ 999 mls/hr BOLUS ONCE IV Last administered on 07/14 03:32; Start 07/14/17 at 03:00; Stop 07/14/17 at 04:00; Status DC Midazolam HCl (Versed Inj) 5 mg ONCE ONCE IV PUSH Last administered on 03:06; Start 07/14/17 at 03:15; Stop 07/14/17 at 03:16; Status DC Midazolam HCl 100 ml @ 2 mls/hr Q50H PRN IV SEDATION Last administered on 03:39; Start 07/14/17 at 03:01; Stop 07/15/17 at 06:31; Status DC Midazolam HCl 100 ml @ As Directed STK-MED ONCE .ROUTE ; Start 07/14/17 at 03: 17; Stop 07/14/17 at 03:18; Status DC Aspirin (Aspirin Chew) 81 mg DAILY CHEW Last administered on 07/20/17 08:37; Start 07/14/17 at 09:00; Status Future Hold Atorvastatin Calcium (Lipitor) 40 mg HS PO Last administered on 07/29/17 21:01 ; Start 07/14/17 at 21:00 Citalopram Hydrobromide (CeleXA) 60 mg DAILY PO Last administered on 07/30/17 09:08; Start 07/14/17 at 09:00 Cyclobenzaprine HCl (Flexeril) 10 mg Q8HR PO Last administered on 07/15/17 04: 21; Start 07/14/17 at 06:00; Stop 07/15/17 at 06:31; Status DC Donepezil HCl (Aricept) 10 mg HS PO Last administered on 07/29/17 21:01; Start 07/14/17 at 21:00 Gabapentin (Neurontin) 100 mg TID PO ; Start 07/14/17 at 09:00; Stop 07/15/17 at 06:31; Status DC Lactobacillus Acidophilus (Lactinex) 1 tab TIDAC PO Last administered on 14:20; Start 07/14/17 at 08:00 Ascorbic Acid (Vitamin C) 1,000 mg DAILY PO Last administered on 07/30/17 09: 08; Start 07/14/17 at 09:00 Ferrous Sulfate (Ferrous Sulfate) 325 mg BIDPC PO Last administered on 09:08; Start 07/14/17 at 09:00 Budesonide/ Formoterol Fumarate (Symbicort 80-4.5 Mcg Inh) 1 puff BID INH Last administered on 07/25/17 08:52; Start 07/14/17 at 09:00 Multivitamins/ Minerals Therapeutic (Theragran M Tab) 1 tab DAILY PO Last administered on 07/30/17 09:08; Start 07/14/17 at 09:00 Latanoprost (Xalatan 0.005% Opth Soln) 1 drop HS EACH EYE Last administered on 07/29/17 21:00; Start 07/14/17 at 21:00 Sodium Chloride (NS Flush) 2 ml UNSCH PRN .XX FLUSH AFTER USING IV ACCESS; Start 07/14/17 at 03:30; Stop 07/24/17 at 12:35; Status DC Sodium Chloride (NS Flush) 2 ml BID .XX Last administered on 07/23/17 21:20; Start 07/14/17 at 09:00; Stop 07/24/17 at 12:35; Status DC Acetaminophen (Tylenol) 650 mg Q6H PRN PO FEVER >101F; Start 07/14/17 at 03:30 ; Stop 07/14/17 at 03:47; Status DC Morphine Sulfate (Morphine Inj) 2 mg Q2H PRN IV PAIN SCALE 6 TO 10; Start 07/14 at 03:30; Stop 07/14/17 at 03:47; Status DC Famotidine (Pepcid Inj) 20 mg Q12HR IV PUSH Last administered on 07/14/17 20: 45; Start 07/14/17 at 09:00; Stop 07/15/17 at 06:31; Status DC Midazolam HCl (Versed Inj) 2 mg Q1H PRN IV SEDATION; Start 07/14/17 at 03:30; Stop 07/15/17 at 06:31; Status DC Artificial Tears (Tears Naturale Opth Soln) 1 drop TID EACH EYE Last administered on 07/28/17 17:43; Start 07/14/17 at 09:00 Ondansetron HCl (Zofran Inj) 4 mg Q6H PRN IV NAUSEA OR VOMITING; Start at 03:30 Albuterol/ Ipratropium (Duoneb Neb) 1 ampule Q6HR NEB INH Last administered on 07/17/17 07:39; Start 07/14/17 at 04:00; Stop 07/18/17 at 03:59; Status DC Albuterol/ Ipratropium (Duoneb Neb) 1 ampule Q2HR NEB PRN INH WHEEZING Last administered on 07/21/17 02:00; Start 07/14/17 at 03:30 Heparin Sodium (Porcine) (Heparin Inj) 5,000 units Q8H SQ Last administered on 07/30/17 14:21; Start 07/14/17 at 06:00 Miscellaneous Information 1 Q361D XX ; Start 07/14/17 at 03:30 Chlorhexidine Gluconate (Chlorhexidine 2% Cloth) Taper DAILY@04 TOP Last administered on 07/21/17 01:37; Start 07/14/17 at 04:00; Stop 07/10/18 at 03:59 Chlorhexidine Gluconate (Chlorhexidine 2% Cloth) 3 pack UNSCH PRN TOP HYGIENIC CARE; Start 07/14/17 at 03:30 Senna/Docusate Sodium ([place]-Colace) 1 tab BID PO Last administered on 20:43; Start 07/14/17 at 09:00 Magnesium Hydroxide (Milk Of Magnesia Liq) 30 ml Q12H PRN PO MILD - MODERATE CONSTIPATION; Start 07/14/17 at 03:30 Sennosides (Senokot) 17.2 mg Q12H PRN PO MODERATE - SEVERE CONSTIPATION; Start 07/14/17 at 03:30 Bisacodyl (Dulcolax Supp) 10 mg DAILY PRN RECTAL SEVERE CONSITIPATION; Start at 03:30 Lactulose (Lactulose Liq) 30 ml DAILY PRN PO SEVERE CONSITIPATION; Start at 03:30; Stop 07/27/17 at 17:16; Status DC Pharmacy Profile Note 0 ml @ 0 mls/hr UNSCH OTHER ; Start 07/14/17 at 03:30 Vancomycin HCl 1000 mg/Sodium Chloride 250 ml @ 250 mls/hr ONCE ONCE IV ; Start 07/14/17 at 03:30; Stop 07/14/17 at 04:29; Status UNV Hydromorphone HCl (Dilaudid Pf Inj) 0.5 mg Q4H PRN IV PAIN 1-10 Last administered on 07/16/17 10:32; Start 07/14/17 at 04:00; Stop 07/16/17 at 12:44 ; Status DC Fentanyl Citrate 250 ml @ 5 mls/hr Q24H PRN IV SEDATION Last administered on 04:29; Start 07/14/17 at 03:56; Stop 07/16/17 at 12:44; Status DC Hydralazine HCl (Apresoline Inj) 20 mg Q4H PRN IV PUSH SBP>160, DBP>90 Last administered on 07/29/17 23:50; Start 07/14/17 at 04:00 Pharmacy Profile Note 0 ml @ 0 mls/hr UNSCH OTHER ; Start 07/14/17 at 05:30; Stop 07/14/17 at 05:30; Status DC Vancomycin HCl 1000 mg/Sodium Chloride 250 ml @ 250 mls/hr ONCE ONCE IV ; Start 07/14/17 at 05:30; Stop 07/14/17 at 06:29; Status UNV Dextrose (D50w (Vial) Inj) 50 ml UNSCH PRN IV HYPOGLYCEMIA-SEE COMMENTS; Start 07/14/17 at 05:30; Stop 07/14/17 at 10:45; Status DC Glucagon (Glucagon Inj) 1 mg UNSCH PRN OTHER HYPOGLYCEMIA-SEE COMMENTS; Start 07/14/17 at 05:30; Stop 07/14/17 at 10:45; Status DC Insulin Aspart (NovoLOG SUPPLEMENTAL SCALE) 1 ACHS SLIDING SCALE SQ Last administered on 07/14/17 06:42; Start 07/14/17 at 07:00; Stop 07/14/17 at 10:10 ; Status DC Vancomycin HCl 1500 mg/Sodium Chloride 515 ml @ 250 mls/hr Q12H IV Last administered on 07/16/17 06:01; Start 07/14/17 at 14:00; Stop 07/16/17 at 08:58 ; Status DC Miscellaneous Information SPECIFIC LAB TO BE DRAWN:VANCOMYCIN TROUGH DATE TO... ONCE ONCE .XX ; Start 07/16/17 at 01:45; Stop 07/16/17 at 01:46; Status DC Sodium Chloride 1,000 ml @ 84 mls/hr [id number] IV Last administered on 00:19; Start 07/14/17 at 11:00; Stop 07/16/17 at 12:44; Status DC Dextrose (D50w (Vial) Inj) 50 ml UNSCH PRN IV HYPOGLYCEMIA-SEE COMMENTS; Start 07/14/17 at 10:15; Stop 07/17/17 at 09:56; Status DC Glucagon (Glucagon Inj) 1 mg UNSCH PRN OTHER HYPOGLYCEMIA-SEE COMMENTS; Start 07/14/17 at 10:15; Stop 07/17/17 at 09:56; Status DC Insulin Human Regular (NovoLIN R SUPPLEMENTAL SCALE) 1 Q4H SQ Last administered on 07/15/17 06:48; Start 07/14/17 at 11:00; Stop 07/16/17 at 17:20 ; Status DC Potassium Chloride 100 ml @ 50 mls/hr Q2H PRN IV For Potassium 2.8 - 3.2 mEq/ L Last administered on 07/18/17 16:54; Start 07/14/17 at 10:15; Stop 07/23/17 at 13:47; Status DC Potassium Chloride 100 ml @ 50 mls/hr Q2H PRN IV For Potassium 2.8 - 3.2 mEq/L ; Start 07/14/17 at 10:15; Stop 07/23/17 at 13:47; Status DC Potassium Bicarb/ Potassium Chloride (K-Lyte Cl Eff) 50 meq UNSCH PRN PO For Potassium 3.3 - 3.5 mEq/L; Start 07/14/17 at 10:15; Stop 07/23/17 at 13:47; Status DC Potassium Chloride 100 ml @ 25 mls/hr UNSCH PRN IV For Potassium 3.3 - 3.5 mEq /L Last administered on 07/20/17 17:13; Start 07/14/17 at 10:15; Stop 07/23/17 at 13:47; Status DC Potassium Chloride 100 ml @ 50 mls/hr Q2H PRN IV For Potassium 3.3 - 3.5 mEq/L ; Start 07/14/17 at 10:15; Stop 07/23/17 at 13:47; Status DC Magnesium Sulfate 4 gm/Sodium Chloride 100 ml @ 50 mls/hr UNSCH PRN IV For Magnesium 0.9 - 1.1 mg/dL; Start 07/14/17 at 10:15; Stop 07/23/17 at 13:47; Status DC Magnesium Oxide (Mag-Ox) 800 mg UNSCH PRN PO For Magnesium 1.2 - 1.6 mg/dL; Start 07/14/17 at 10:15; Stop 07/23/17 at 13:47; Status DC Magnesium Sulfate 2 gm/Sodium Chloride 100 ml @ 50 mls/hr UNSCH PRN IV For Magnesium 1.2 - 1.6 mg/dL; Start 07/14/17 at 10:15; Stop 07/23/17 at 13:47; Status DC Potassium Phosphate (K-Phos) 2,000 mg Q4H PRN PO For Phosphorus < 2.5 mg/dL; Start 07/14/17 at 10:15; Stop 07/23/17 at 13:47; Status DC Sodium Phosphate 30 mmol/Sodium Chloride 250 ml @ 42 mls/hr UNSCH PRN IV For Phosphorus < 2.5 mg/dL; Start 07/14/17 at 10:15; Stop 07/23/17 at 13:47; Status DC Potassium Phosphate (K-Phos) 2,000 mg UNSCH PRN PO/TUBE SEE LABEL COMMENTS; Start 07/14/17 at 10:15; Stop 07/23/17 at 13:47; Status DC Potassium Phosphate 30 mmol/ Sodium Chloride 260 ml @ 42 mls/hr UNSCH PRN IV SEE LABEL COMMENTS; Start 07/14/17 at 10:15; Stop 07/23/17 at 13:47; Status DC Cyclobenzaprine HCl (Flexeril) 10 mg Q8H PRN PO muscle spasms Last administered on 07/30/17 13:09; Start 07/15/17 at 06:15 Famotidine (Pepcid Liq) 20 mg BID NG Last administered on 07/24/17 20:09; Start 07/15/17 at 09:00 Hydromorphone HCl (Dilaudid Pf Inj) 0.5 mg ONCE ONCE IV Last administered on 15:00; Start 07/15/17 at 15:00; Stop 07/15/17 at 15:01; Status DC Hydromorphone HCl (Dilaudid Pf Inj) 0.5 mg NOW ONCE IV PUSH ; Start 07/15/17 at 15:15; Stop 07/15/17 at 15:16; Status DC Furosemide (Lasix Inj) 40 mg STK-MED ONCE .ROUTE Last administered on 07:12; Start 07/16/17 at 07:12; Stop 07/16/17 at 07:13; Status DC Diltiazem HCl (Cardizem Inj) 25 mg STK-MED ONCE .ROUTE Last administered on 07:21; Start 07/16/17 at 07:21; Stop 07/16/17 at 07:22; Status DC Magnesium Sulfate/ Dextrose 100 ml @ 100 mls/hr Q1H IV Last administered on 08:45; Start 07/16/17 at 07:45; Stop 07/16/17 at 09:44; Status DC Potassium Chloride 100 ml @ 50 mls/hr Q2H IV Last administered on 07/16/17 09 :45; Start 07/16/17 at 07:45; Stop 07/16/17 at 11:44; Status DC Vancomycin HCl 1500 mg/Sodium Chloride 515 ml @ 250 mls/hr Q18H IV Last administered on 07/29/17 16:53; Start 07/17/17 at 00:00; Stop 07/30/17 at 14:21 ; Status DC Miscellaneous Information SPECIFIC LAB TO BE DRAWN:VANCO TROUGH DATE... ONCE ONCE .XX Last administered on 07/18/17 11:45; Start 07/18/17 at 11:45; Stop 07/18 at 11:46; Status DC Potassium Chloride (KCl) 40 meq NOW ONCE PO Last administered on 07/16/17 10: 32; Start 07/16/17 at 11:00; Stop 07/16/17 at 11:01; Status DC Hydromorphone HCl (Dilaudid Pf Inj) 0.5 mg Q2H PRN IV PAIN 6-10 or not taking po Last administered on 07/19/17 07:32; Start 07/16/17 at 14:00; Stop 07/19/17 at 07:52; Status DC Oxycodone HCl (Roxicodone) 5 mg Q4H PRN PO pain 1-5 Last administered on 19:30; Start 07/16/17 at 14:00; Stop 07/24/17 at 12:37; Status DC Diltiazem HCl (Cardizem) 60 mg Q6H PO Last administered on 07/30/17 04:11; Start 07/17/17 at 10:00 Dextrose (D50w (Vial) Inj) 50 ml UNSCH PRN IV HYPOGLYCEMIA-SEE COMMENTS; Start 07/17/17 at 09:00 Glucagon (Glucagon Inj) 1 mg UNSCH PRN OTHER HYPOGLYCEMIA-SEE COMMENTS; Start 07/17/17 at 09:00 Insulin Human Regular (NovoLIN R SUPPLEMENTAL SCALE) 1 Q6H SQ ; Start 07/17/17 at 10:00 Aztreonam 2000 mg/ Sodium Chloride 100 ml @ 200 mls/hr Q8H IV ; Start 07/17/17 at 10:00; Stop 07/17/17 at 10:02; Status DC Vancomycin HCl (VANCOMYCIN for oral use only) 125 mg QID PO Last administered on 07/28/17 10:05; Start 07/17/17 at 13:00; Stop 07/28/17 at 15:39; Status DC Hydromorphone HCl (Dilaudid Pf Inj) 0.5 mg ONCE ONCE IV PUSH Last administered on 07/17/17 14:40; Start 07/17/17 at 14:30; Stop 07/17/17 at 14:33; Status DC Hydralazine HCl (Apresoline) 50 mg Q8HR PO Last administered on 07/28/17 04:22 ; Start 07/18/17 at 09:30; Stop 07/28/17 at 14:43; Status DC Hydromorphone HCl (Dilaudid Pf Inj) 1 mg Q2H PRN IV PAIN 6-10 or not taking po Last administered on 07/24/17 15:43; Start 07/19/17 at 09:00; Stop 07/24/17 at 19: 32; Status DC Bumetanide (Bumex Inj) 1 mg ONCE ONCE IV PUSH Last administered on 07/20/17 08 :37; Start 07/20/17 at 08:00; Stop 07/20/17 at 08:01; Status DC Potassium Bicarb/ Potassium Chloride (K-Lyte Cl Eff) 50 meq ONCE ONCE PO Last administered on 07/21/17 09:35; Start 07/21/17 at 09:00; Stop 07/21/17 at 09: 01; Status DC Potassium Chloride 100 ml @ 100 mls/hr Q1H IV Last administered on 07/21/17 20 :41; Start 07/21/17 at 09:00; Stop 07/21/17 at 11:59; Status DC Miscellaneous Information SPECIFIC LAB TO BE DRAWN:VANCOMYCIN TROUGH DATE TO... ONCE ONCE .XX Last administered on 07/22/17 05:53; Start 07/22/17 at 05:45; Stop 07/22/17 at 05:46; Status DC Heparin Sodium (Porcine) (Heparin Inj) 10,000 units STK-MED ONCE .ROUTE Last administered on 07/21/17 13:44; Start 07/21/17 at 13:44; Stop 07/21/17 at 13:45; Status DC Vancomycin HCl (Vancomycin Inj) 1,000 mg STK-MED ONCE .ROUTE Last administered on 07/21/17 14:43; Start 07/21/17 at 14:10; Stop 07/21/17 at 14:11; Status DC Iohexol (Omnipaque 350 Inj) 50 ml ONCE ONCE .XX ; Start 07/21/17 at 14:44; Stop 07/21/17 at 14:45; Status DC Fentanyl Citrate (fentaNYL INJ) 100 mcg STK-MED ONCE .ROUTE ; Start 07/21/17 at 15:57; Stop 07/21/17 at 15:58; Status DC Miscellaneous Information ALL NURSING DEPARTME... UNSCH PRN .XX SEE LABEL COMMENTS; Start 07/21/17 at 15:49; Stop 07/22/17 at 15:48; Status DC Miscellaneous Information ALL NURSING DEPARTME... UNSCH PRN .XX SEE LABEL COMMENTS; Start 07/21/17 at 15:49; Stop 07/22/17 at 15:48; Status Cancel Potassium Chloride (KCl) 40 meq ONCE ONCE PO Last administered on 07/23/17 18: 59; Start 07/23/17 at 18:45; Stop 07/23/17 at 18:53; Status DC Lisinopril (Prinivil) 10 mg DAILY PO Last administered on 07/24/17 09:02; Start 07/23/17 at 18:45; Stop 07/24/17 at 19:25; Status DC Miscellaneous Information SPECIFIC LAB TO BE KARLA... ONCE ONCE .XX Last administered on 07/25/17 05:45; Start 07/25/17 at 05:45; Stop 07/25/17 at 05:46; Status DC Bupivacaine HCl (Marcaine Pf 0.5% Inj) 30 ml STK-MED ONCE .ROUTE ; Start at 09:24; Stop 07/24/17 at 09:25; Status DC Lidocaine HCl (Xylocaine 1% Inj (50 ml)) 50 ml STK-MED ONCE .ROUTE ; Start at 09:24; Stop 07/24/17 at 09:25; Status DC Sodium Chloride (NS Flush) 2 ml UNSCH PRN IV FLUSH FLUSH AFTER USING IV ACCESS Last administered on 07/28/17 06:25; Start 07/24/17 at 11:00 Sodium Chloride (NS Flush) 2 ml BID IV FLUSH Last administered on 07/29/17 21: 03; Start 07/24/17 at 21:00 Miscellaneous Information (Post-op Orders (for Pharmacy)) STAT ONCE XX ; Start 07/24/17 at 11:00; Stop 07/24/17 at 12:36; Status DC Hydromorphone HCl (Dilaudid Pf Inj) 1 mg Q3H PRN IV BREAKTHROUGH PAIN Last administered on 07/30/17 06:31; Start 07/24/17 at 11:00 Hydromorphone HCl (Dilaudid) 1 mg Q4H PRN PO PAIN SCALE 3 TO 5; Start 07/24/17 at 11:00; Stop 07/24/17 at 19:32; Status DC Hydromorphone HCl (Dilaudid) 2 mg Q4H PRN PO PAIN SCALE 6 TO 10 Last administered on 07/24/17 17:48; Start 07/24/17 at 11:00; Stop 07/24/17 at 19:32; Status DC Naloxone HCl (Narcan Inj) 0.4 mg UNSCH PRN IV SEE LABEL COMMENTS; Start at 11:00 Hydromorphone HCl (*DILAUDID PF INJ PERIprocedural ONLY) 1 mg STK-MED ONCE .ROUTE Last administered on 07/24/17 11:26; Start 07/24/17 at 11:26; Stop at 11:27; Status DC Miscellaneous Information ALL NURSING DEPARTME... UNSCH PRN .XX SEE LABEL COMMENTS; Start 07/24/17 at 10:55; Stop 07/25/17 at 10:54; Status DC Vancomycin HCl (Vancomycin Inj) 500 mg STK-MED ONCE .ROUTE Last administered on 07/24/17 13:59; Start 07/24/17 at 11:54; Stop 07/24/17 at 11:55; Status DC Vancomycin HCl (Vancomycin Inj) 1,000 mg STK-MED ONCE .ROUTE ; Start 07/24/17 at 11:55; Stop 07/24/17 at 11:56; Status DC Hydromorphone HCl (*DILAUDID PF INJ PERIprocedural ONLY) 1 mg STK-MED ONCE .ROUTE Last administered on 07/24/17 13:20; Start 07/24/17 at 13:20; Stop at 13:21; Status DC Lisinopril (Prinivil) 20 mg DAILY PO Last administered on 07/25/17 08:46; Start 07/25/17 at 09:00; Stop 07/25/17 at 14:49; Status DC Oxycodone HCl (Roxicodone) 10 mg Q4H PRN PO pain 6-10 Last administered on 07/30 13:11; Start 07/24/17 at 19:30 Oxycodone HCl (Roxicodone) 5 mg Q4H PRN PO pain 3-5; Start 07/24/17 at 19:30 Lisinopril (Prinivil) 20 mg BID PO Last administered on 07/26/17 08:50; Start 07/25/17 at 21:00; Stop 07/26/17 at 17:04; Status DC Lisinopril (Prinivil) 40 mg DAILY PO Last administered on 07/30/17 09:08; Start 07/27/17 at 09:00 Lisinopril (Prinivil) 20 mg ONCE ONCE PO Last administered on 07/26/17 17:00 ; Start 07/26/17 at 17:00; Stop 07/26/17 at 18:00; Status DC Hydralazine HCl (Apresoline) 50 mg Q6HR PO Last administered on 07/30/17 14:17 ; Start 07/28/17 at 18:00 Miscellaneous Information SPECIFIC LAB TO BE DRAWN:VANCOMYCIN TROUGH DATE TO... ONCE ONCE .XX Last administered on 07/30/17 12:30; Start 07/30/17 at 11:45; Stop 07/30/17 at 11:46; Status DC Acetaminophen (Tylenol) 650 mg Q6H PRN PO fever; Start 07/29/17 at 18:15 Clonidine (Catapres) 0.1 mg Q12HR PO Last administered on 9/14/17at 13:10; Start 07/30/17 at 12:00 Vancomycin HCl 1250 mg/Sodium Chloride 262.5 ml @ 250 mls/hr Q18H IV ; Start at 12:00 Miscellaneous Information SPECIFIC LAB TO BE ... ONCE ONCE .XX ; Start 08/02 at 17:45; Stop 08/02/17 at 17:46 Other Results Laboratory Tests Test 07/30/17 08:18 Creatinine 0.76 MG/DL Estimat Glomerular Filtration Rate 101 ML/MIN Exam-Podiatry Constitutional Orientation: alert and oriented x3 Dermatological Exam Skin Temp - Right: Within Normal Limits Skin Texture - Right: Within Normal Limits Skin Elasticity - Right: Within Normal Limits Skin Tugor - Right: Within Normal Limits Hair Growth - Right: Within Normal Limits Pigmentation - Right: Within Normal Limits Skin Temp - Left: Within Normal Limits Skin Texture - Left: Within Normal Limits Skin Elasticity - Left: Within Normal Limits Skin Tugor - Left: Within Normal Limits Hair Growth - Left: Within Normal Limits Pigmentation - Left: Within Normal Limits Ulcers: Location/Measurements Wound amputation site is granulating nicely. Some odor present which may be from the back. No purulence seen. Some healthy bleeding noted from the wound. Vascular/Lymphatic Exam R Dorsails Pedis: Palpable L Dorsails Pedis: Palpable R Posterior Tibial: Palpable L Posterior Tibial: Palpable Neurologic Exam Details Deferred exam Muscle Strength Dorsiflexion (Right): Normal Plantarflexion (Right): Normal Inversion (Right): Normal Eversion (Right): Normal Digital (Right): Normal Dorsiflexion (Left): Normal Plantarflexion (Left): Normal Inversion (Left): Normal Eversion (Left): Normal Digital (Left): Normal Foot Range of Motion Dorsiflexion (Right): Normal Plantarflexion (Right): Normal Inversion (Right): Normal Eversion (Right): Normal Digital (Right): Normal Dorsiflexion (Left): Normal Plantarflexion (Left): Normal Inversion (Left): Normal Eversion (Left): Normal Digital (Left): Normal Assessment & Plan Diagnosis: (1) 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 Changed VAC dressing. We'll continue to follow. If he continues to spike fevers and white count continues to be elevated I will return him to the OR for further debridement. 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
[2017-07-30] MEDS: ATORVASTATIN 40 MG TAB PO SCH (21:58)
[2017-07-30] MEDS: LATANOPROST 0.005% OPHT SOLN 2.5 ML BTL EACH EYE SCH (21:59)
[2017-07-30] MEDS: DONEPEZIL HCL 5 MG TAB PO SCH (21:59)
[2017-07-31] VITALS: BP 127/60; PULSE 63; RESP 18; TEMP 99; O2SAT 95
[2017-07-31 04:00] VITALS: BP 131/61; PULSE 59; RESP 18; TEMP 98.3; O2SAT 95
[2017-07-31] MEDS: DILTIAZEM HCL 60 MG TAB PO SCH ×4 (04:00→21:42)
[2017-07-31] MEDS: INSULIN NovoLIN REGULAR SUPPLEMENTAL SCALE SQ SCH ×4 (04:00→21:43)
[2017-07-31] MEDS: CHLORHEXIDINE GLUCONATE 2 % 1 PACK (2 CLOTHS) TOP SCH (04:00)
[2017-07-31] MEDS: HEPARIN SODIUM - SQ 10,000 UNITS/ML VIAL SQ SCH ×3 (05:45→21:43)
[2017-07-31] MEDS: hydrALAZINE HCL 50 MG TAB PO SCH ×5 (05:46→23:52)
[2017-07-31] MEDS: SODIUM CHLORIDE 0.9% FLUSH 10 ML FLUSH IV FLUSH SCH ×2 (07:40→21:41)
[2017-07-31 08:00] VITALS: BP 109/58; PULSE 59; RESP 18; TEMP 98.4; O2SAT 98
[2017-07-31] MEDS: DOCUSATE SODIUM 50 MG/SENNA 8.6 MG TAB PO SCH ×2 (08:33→21:00)
[2017-07-31] MEDS: ASCORBIC ACID 500 MG TAB PO SCH (08:33)
[2017-07-31] MEDS: cloNIDine HCL 0.1 MG TAB PO SCH ×2 (08:33→21:41)
[2017-07-31] MEDS: LACTOBACILLUS ACIDOPHILUS TAB PO SCH ×3 (08:33→17:33)
[2017-07-31] MEDS: FERROUS SULFATE 325 MG (65 MG ELEMENTAL IRON) TAB PO SCH ×2 (08:33→17:32)
[2017-07-31] MEDS: MULTIVITAMINS/MINERALS THERAPEUTIC TAB PO SCH (08:33)
[2017-07-31] MEDS: LISINOPRIL 20 MG TAB PO SCH (08:34)
[2017-07-31] MEDS: CITALOPRAM HYDROBROMIDE 20 MG TAB PO SCH (08:34)
[2017-07-31] MEDS: BUDESONIDE-FORMOTEROL 80/4.5 MCG INHALER INH SCH ×2 (08:37→21:00)
[2017-07-31] MEDS: ARTIFICIAL TEARS OPTH SOLN 15 ML BTL EACH EYE SCH ×3 (08:41→17:33)
[2017-07-31 10:47] LABS: AUTOMATED NEUTROPHIL # 8.6 TH/MM3 (1.8-7.7); BASOPHIL # 0.1 TH/MM3 (0-0.2); BASOPHIL % 0.7 % (0.0-2.0); EOSINOPHIL # 0.2 TH/MM3 (0-0.4); EOSINOPHIL % 1.4 % (0.0-4.0); HEMATOCRIT 26.8 % (39.0-51.0); HEMO FLAGS DIFF FINAL; LYMPH % 12.7 % (9.0-44.0); LYMPHOCYTE # 1.5 TH/MM3 (1.0-4.8); MEAN CELL VOLUME 83.1 FL (80.0-100.0); MEAN CORPUSCULAR HEMOGLOBIN 26.5 PG (27.0-34.0); MEAN CORPUSCULAR HGB CONC 31.9 % (32.0-36.0); NEUT % 71.2 % (16.0-70.0); PLATELET COUNT 386 TH/MM3 (150-450); RED BLOOD COUNT 3.23 MIL/MM3 (4.50-5.90); RED CELL DISTRIBUTION WIDTH 17.5 % (11.6-17.2); WHITE BLOOD COUNT 12.1 TH/MM3 (4.0-11.0)
[2017-07-31] MEDS: VANCOMYCIN INJ 1,250 MG in SODIUM CHLOR 0.9% 250 ML INJ 250 ML IV SCH (11:58)
[2017-07-31 12:00] VITALS: BP 123/60; PULSE 57; RESP 18; TEMP 97.7; O2SAT 97
[2017-07-31 16:00] VITALS: BP 142/63; PULSE 59; RESP 18; TEMP 99.9; O2SAT 98
--- NOTE | 2017-07-31 16:29 | HHI.PR ---
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 Patient underwent an arteriogram with intervention by Dr. Anand. 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 A negative pressure wound therapy VAC was applied. VAC appears to be functioning well. Currently patient doing well it was about 100.1 Podiatry wants to continue following her any fever or leukocytosis so he would take the patient back to OR Objective Vitals Vital Signs Date Time Temp Pulse Resp B/P (MAP) Pulse Ox O2 Delivery O2 Flow Rate FiO2 07/31/17 12:00 97.7 57 18 123/60 (81) 97 07/31/17 08:00 98.4 59 18 109/58 (75) 98 07/31/17 04:00 98.3 59 18 131/61 (84) 95 07/31/17 00:00 99.0 63 18 127/60 (82) 95 07/30/17 21:01 21 07/30/17 20:00 99.1 65 18 157/70 (99) 95 07/30/17 20:00 66 I/O 07/30/17 07/30/17 07/30/17 07/31/17 07/31/17 07/31/17 07:00 15:00 23:00 07:00 15:00 23:00 Intake Total 420 ml 720 ml 120 ml Output Total 1400 ml 900 ml 200 ml Balance -980 ml -180 ml -80 ml Intake Oral 420 ml 720 ml 120 ml Output Urine Total 1400 ml 900 ml 200 ml # Bowel Movements 1 0 0 Result Diagram: 07/31/17 0925 07/30/17 0818 Objective Remarks - GENERAL: This is a well-nourished, well-developed patient, in no apparent distress. SKIN: No rashes, warm and dry HEAD: Atraumatic. Normocephalic. EYES: Pupils equal round and reactive. Extraocular motions intact. No scleral icterus. ENT: Nose without bleeding, or drainage, Airway patent. NECK: Trachea midline. Supple CARDIOVASCULAR: Regular rate and rhythm without murmurs, gallops, or rubs. RESPIRATORY: Fair air entry bilaterally. No wheezes, rales, or rhonchi. GASTROINTESTINAL: Abdomen soft, non-tender, nondistended. Positive bowel sounds MUSCULOSKELETAL: Left foot first toe amputation, wound VAC in place NEUROLOGICAL: Awake and alert. Moves all extremity. Normal speech.no focal neurological deficit A/P Assessment and Plan A/P: 71 years old male with Diabetic ischemic foot ulcer with history of MRSA wound History of osteomyelitis -MRSA UTI( Pseudomonas) Hx C-diff Dementia PAF Uncontrolled hypertension Hypokalemia> replaced Plan: -Continue abx per ID status post by mouth vancomycin which was stopped, continue on iv vancomycin mostly for 6 weeks per ID,- , Lactinex, Podiatry is following. Monitor for signs of infections ( Fever, WBC) , if any of that he will take patient back to OR, once cleared by podiatry, call ID to decide on final iv antibiotic at discharge -Follow up on BC and urine cx from 07/18: NGTD - Vascular surgery is following- Dr. Anand Continue Cardizem 60mg Q6, Hydralazine 50mg Q8, on Hydralazine PRN, added lisinopril, continue monitoring and titrating his antihypertensive Monitor CBC, on FESO4 325mg BID S/P transfusion 2 units PRBC ( Hgb 6.8) On SSI with accuchecks Q6 DVT GI prophylaxis - Teds SCDs - Subcutaneous heparin - Selina Hammond MD Jul 31, 2017 16:28
[2017-07-31 20:00] VITALS: BP 142/62; PULSE 65; PULSE 74; RESP 16; TEMP 99.2; O2SAT 98
[2017-07-31] MEDS: LATANOPROST 0.005% OPHT SOLN 2.5 ML BTL EACH EYE SCH (21:00)
[2017-07-31] MEDS: FAMOTIDINE 20 MG TAB NG SCH (21:41)
[2017-07-31] MEDS: ATORVASTATIN 40 MG TAB PO SCH (21:42)
[2017-07-31] MEDS: DONEPEZIL HCL 5 MG TAB PO SCH (21:42)
[2017-07-31] MEDS: HYDROmorphone HCL PF 1 MG/ML VIAL IV PRN (23:52)
[2017-08-01] VITALS: BP 115/55; PULSE 52; RESP 20; TEMP 97.5; O2SAT 96
[2017-08-01 04:00] VITALS: BP 134/62; PULSE 55; RESP 20; TEMP 98.3; O2SAT 95
[2017-08-01] MEDS: CHLORHEXIDINE GLUCONATE 2 % 1 PACK (2 CLOTHS) TOP SCH (04:00)
[2017-08-01] MEDS: INSULIN NovoLIN REGULAR SUPPLEMENTAL SCALE SQ SCH ×4 (04:00→20:45)
[2017-08-01] MEDS: DILTIAZEM HCL 60 MG TAB PO SCH ×4 (04:45→20:37)
[2017-08-01] MEDS: hydrALAZINE HCL 50 MG TAB PO SCH ×3 (06:05→17:01)
[2017-08-01] MEDS: HEPARIN SODIUM - SQ 10,000 UNITS/ML VIAL SQ SCH ×3 (06:05→20:45)
[2017-08-01] MEDS: VANCOMYCIN INJ 1,250 MG in SODIUM CHLOR 0.9% 250 ML INJ 250 ML IV SCH (06:06)
[2017-08-01 08:00] VITALS: BP 170/71; PULSE 56; RESP 18; TEMP 98.8; O2SAT 93
[2017-08-01] MEDS: ASCORBIC ACID 500 MG TAB PO SCH (08:10)
[2017-08-01] MEDS: CITALOPRAM HYDROBROMIDE 20 MG TAB PO SCH (08:10)
[2017-08-01] MEDS: LISINOPRIL 20 MG TAB PO SCH (08:10)
[2017-08-01] MEDS: cloNIDine HCL 0.1 MG TAB PO SCH ×2 (08:10→20:42)
[2017-08-01] MEDS: MULTIVITAMINS/MINERALS THERAPEUTIC TAB PO SCH (08:10)
[2017-08-01] MEDS: SODIUM CHLORIDE 0.9% FLUSH 10 ML FLUSH IV FLUSH SCH ×2 (08:10→20:37)
[2017-08-01] MEDS: FERROUS SULFATE 325 MG (65 MG ELEMENTAL IRON) TAB PO SCH ×2 (08:10→17:01)
[2017-08-01] MEDS: ARTIFICIAL TEARS OPTH SOLN 15 ML BTL EACH EYE SCH ×3 (08:10→17:00)
[2017-08-01] MEDS: LACTOBACILLUS ACIDOPHILUS TAB PO SCH ×3 (08:10→17:00)
[2017-08-01] MEDS: FAMOTIDINE 20 MG TAB NG SCH ×2 (08:10→20:38)
[2017-08-01] MEDS: BUDESONIDE-FORMOTEROL 80/4.5 MCG INHALER INH SCH ×2 (08:10→20:39)
[2017-08-01] MEDS: DOCUSATE SODIUM 50 MG/SENNA 8.6 MG TAB PO SCH ×2 (08:11→20:37)
[2017-08-01 12:00] VITALS: BP 134/61; PULSE 53; RESP 18; TEMP 97.7; O2SAT 94
[2017-08-01] MEDS: CYCLOBENZAPRINE HCL 10 MG TAB PO PRN (12:38)
--- NOTE | 2017-08-01 13:21 | HHI.PR ---
Subjective Remarks in no acute distress. afebrile. complaining of pain to both shoulders. d/w the RN. Objective Vitals Vital Signs Date Time Temp Pulse Resp B/P (MAP) Pulse Ox O2 Delivery O2 Flow Rate FiO2 08/01/17 12:00 97.7 53 18 134/61 (85) 94 08/01/17 08:00 98.8 56 18 170/71 (104) 93 08/01/17 04:00 98.3 55 20 134/62 (86) 95 08/01/17 00:00 97.5 52 20 115/55 (75) 96 07/31/17 20:00 99.2 74 16 142/62 (88) 98 07/31/17 20:00 65 07/31/17 16:00 99.9 59 18 142/63 (89) 98 I/O 07/31/17 07/31/17 07/31/17 08/01/17 08/01/17 08/01/17 07:00 15:00 23:00 07:00 15:00 23:00 Intake Total 120 ml 720 ml 960 ml Output Total 200 ml 1100 ml 500 ml Balance -80 ml -380 ml 460 ml Intake Oral 120 ml 720 ml 960 ml Output Urine Total 200 ml 1100 ml 500 ml # Bowel Movements 0 1 Result Diagram: 07/31/17 0925 08/01/17 1023 Imaging Last Impressions Foot X-Ray 07/24/17 0000 Signed Impressions: Service Date/Time: Monday, July 24, 2017 11:21 - CONCLUSION: Postop amputation. K. Leroy Willis MD Chest X-Ray 07/21/17 0000 Signed Impressions: Service Date/Time: Friday, July 21, 2017 07:49 - CONCLUSION: 1. Left lower lobe atelectasis versus pneumonia. There has been no significant change when compared to the prior exam. Yo Mcbride MD Lower Extremity Ultrasound 07/18/17 0000 Signed Impressions: Service Date/Time: Tuesday, July 18, 2017 10:04 - CONCLUSION: Normal examination. Bautista Hoff MD Head CT 07/14/17 0043 Signed Impressions: Service Date/Time: Friday, July 14, 2017 02:09 - CONCLUSION: No acute intracranial abnormality is identified. Jose Miller MD Ankle X-Ray 07/14/17 0000 Signed Impressions: Service Date/Time: Friday, July 14, 2017 01:48 - CONCLUSION: No acute left ankle abnormality is identified. Jose Miller MD Objective Remarks GENERAL: This is a well-nourished, well-developed patient, in no apparent distress. CARDIOVASCULAR: Regular rate and regular rhythm without murmurs, gallops, or rubs. RESPIRATORY: Clear to auscultation. Breath sounds equal bilaterally. No wheezes , rales, or rhonchi. GASTROINTESTINAL: Abdomen soft, non-tender, nondistended. Normal, active bowel sounds MUSCULOSKELETAL: left foot with wound vac in place. NEURO: Alert & Oriented x4 to person, place, time, situation. Moves all ext x4 Medications and IVs Current Medications Etomidate (Amidate Inj) 40 mg STK-MED ONCE .ROUTE ; Start 07/14/17 at 00:32; Stop 07/14/17 at 00:33; Status DC Propofol 100 ml @ As Directed STK-MED ONCE .ROUTE ; Start 07/14/17 at 00:35; Stop 07/14/17 at 00:36; Status DC IV Flush (NS Flush) 2 ml UNSCH PRN IV FLUSH FLUSH AFTER USING IV ACCESS; Start 07/14/17 at 00:45; Stop 07/14/17 at 03:47; Status DC Vancomycin HCl 1450 mg/Sodium Chloride 514.5 ml @ 250 mls/hr ONCE ONCE IV Last administered on 07/14/17 02:36; Start 07/14/17 at 01:30; Stop 07/14/17 at 03:33; Status DC Aztreonam 2000 mg/ Sodium Chloride 100 ml @ 200 mls/hr ONCE ONCE IV Last administered on 07/14/17 02:08; Start 07/14/17 at 01:30; Stop 07/14/17 at 01:59 ; Status DC Racepinephrine (Racepinephrine 2.25% Neb) 0.5 ml ONCE ONCE NEB Last administered on 07/14/17 01:36; Start 07/14/17 at 01:30; Stop 07/14/17 at 01:31 ; Status DC Methylprednisolone Sodium Succinate (SoluMEDROL INJ) 60 mg ONCE ONCE IVP Last administered on 07/14/17 01:44; Start 07/14/17 at 01:30; Stop 07/14/17 at 01:31 ; Status DC Albuterol/ Ipratropium (Duoneb Neb) 1 ampule Q15M INH Last administered on 07/14 01:48; Start 07/14/17 at 01:30; Stop 07/14/17 at 02:01; Status DC Etomidate (Amidate Inj) 30 mg ONCE ONCE IV PUSH Last administered on 02:09; Start 07/14/17 at 02:00; Stop 07/14/17 at 02:02; Status DC Rocuronium Dana (Zemuron Inj) 60 mg BOLUS ONCE IV Last administered on 07/14 02:08; Start 07/14/17 at 02:00; Stop 07/14/17 at 02:02; Status DC Propofol 100 ml @ 2.85 mls/hr Q35H6M PRN IV Ordered RASS Last administered on 01:37; Start 07/14/17 at 02:02; Stop 07/16/17 at 12:44; Status DC Midazolam HCl (Versed Inj) 5 mg STK-MED ONCE .ROUTE ; Start 07/14/17 at 02:30; Stop 07/14/17 at 02:31; Status DC Sodium Chloride 1,000 ml @ 999 mls/hr BOLUS ONCE IV Last administered on 07/14 03:32; Start 07/14/17 at 03:00; Stop 07/14/17 at 04:00; Status DC Midazolam HCl (Versed Inj) 5 mg ONCE ONCE IV PUSH Last administered on 03:06; Start 07/14/17 at 03:15; Stop 07/14/17 at 03:16; Status DC Midazolam HCl 100 ml @ 2 mls/hr Q50H PRN IV SEDATION Last administered on 03:39; Start 07/14/17 at 03:01; Stop 07/15/17 at 06:31; Status DC Midazolam HCl 100 ml @ As Directed STK-MED ONCE .ROUTE ; Start 07/14/17 at 03: 17; Stop 07/14/17 at 03:18; Status DC Aspirin (Aspirin Chew) 81 mg DAILY CHEW Last administered on 07/20/17 08:37; Start 07/14/17 at 09:00; Status Future Hold Atorvastatin Calcium (Lipitor) 40 mg HS PO Last administered on 07/31/17 21:42 ; Start 07/14/17 at 21:00 Citalopram Hydrobromide (CeleXA) 60 mg DAILY PO Last administered on 08/01/17 08:10; Start 07/14/17 at 09:00 Cyclobenzaprine HCl (Flexeril) 10 mg Q8HR PO Last administered on 07/15/17 04: 21; Start 07/14/17 at 06:00; Stop 07/15/17 at 06:31; Status DC Donepezil HCl (Aricept) 10 mg HS PO Last administered on 07/31/17 21:42; Start 07/14/17 at 21:00 Gabapentin (Neurontin) 100 mg TID PO ; Start 07/14/17 at 09:00; Stop 07/15/17 at 06:31; Status DC Lactobacillus Acidophilus (Lactinex) 1 tab TIDAC PO Last administered on 12:38; Start 07/14/17 at 08:00 Ascorbic Acid (Vitamin C) 1,000 mg DAILY PO Last administered on 08/01/17 08: 10; Start 07/14/17 at 09:00 Ferrous Sulfate (Ferrous Sulfate) 325 mg BIDPC PO Last administered on 08:10; Start 07/14/17 at 09:00 Budesonide/ Formoterol Fumarate (Symbicort 80-4.5 Mcg Inh) 1 puff BID INH Last administered on 07/31/17 08:37; Start 07/14/17 at 09:00 Multivitamins/ Minerals Therapeutic (Theragran M Tab) 1 tab DAILY PO Last administered on 08/01/17 08:10; Start 07/14/17 at 09:00 Latanoprost (Xalatan 0.005% Opt Soln) 1 drop HS EACH EYE Last administered on 07/31/17 21:00; Start 07/14/17 at 21:00 Sodium Chloride (NS Flush) 2 ml UNSCH PRN .XX FLUSH AFTER USING IV ACCESS; Start 07/14/17 at 03:30; Stop 07/24/17 at 12:35; Status DC Sodium Chloride (NS Flush) 2 ml BID .XX Last administered on 07/23/17 21:20; Start 07/14/17 at 09:00; Stop 07/24/17 at 12:35; Status DC Acetaminophen (Tylenol) 650 mg Q6H PRN PO FEVER >101F; Start 07/14/17 at 03:30 ; Stop 07/14/17 at 03:47; Status DC Morphine Sulfate (Morphine Inj) 2 mg Q2H PRN IV PAIN SCALE 6 TO 10; Start 07/14 at 03:30; Stop 07/14/17 at 03:47; Status DC Famotidine (Pepcid Inj) 20 mg Q12HR IV PUSH Last administered on 07/14/17 20: 45; Start 07/14/17 at 09:00; Stop 07/15/17 at 06:31; Status DC Midazolam HCl (Versed Inj) 2 mg Q1H PRN IV SEDATION; Start 07/14/17 at 03:30; Stop 07/15/17 at 06:31; Status DC Artificial Tears (Tears Naturale Opth Soln) 1 drop TID EACH EYE Last administered on 08/01/17 12:39; Start 07/14/17 at 09:00 Ondansetron HCl (Zofran Inj) 4 mg Q6H PRN IV NAUSEA OR VOMITING; Start at 03:30 Albuterol/ Ipratropium (Duoneb Neb) 1 ampule Q6HR NEB INH Last administered on 07/17/17 07:39; Start 07/14/17 at 04:00; Stop 07/18/17 at 03:59; Status DC Albuterol/ Ipratropium (Duoneb Neb) 1 ampule Q2HR NEB PRN INH WHEEZING Last administered on 07/21/17 02:00; Start 07/14/17 at 03:30 Heparin Sodium (Porcine) (Heparin Inj) 5,000 units Q8H SQ Last administered on 08/01/17 06:05; Start 07/14/17 at 06:00 Miscellaneous Information 1 Q361D XX ; Start 07/14/17 at 03:30 Chlorhexidine Gluconate (Chlorhexidine 2% Cloth) Taper DAILY@04 TOP Last administered on 07/21/17 01:37; Start 07/14/17 at 04:00; Stop 07/10/18 at 03:59 Chlorhexidine Gluconate (Chlorhexidine 2% Cloth) 3 pack UNSCH PRN TOP HYGIENIC CARE; Start 07/14/17 at 03:30 Senna/Docusate Sodium (Medina-Colace) 1 tab BID PO Last administered on 08:33; Start 07/14/17 at 09:00 Magnesium Hydroxide (Milk Of Magnesia Liq) 30 ml Q12H PRN PO MILD - MODERATE CONSTIPATION; Start 07/14/17 at 03:30 Sennosides (Senokot) 17.2 mg Q12H PRN PO MODERATE - SEVERE CONSTIPATION; Start 07/14/17 at 03:30 Bisacodyl (Dulcolax Supp) 10 mg DAILY PRN RECTAL SEVERE CONSITIPATION; Start at 03:30 Lactulose (Lactulose Liq) 30 ml DAILY PRN PO SEVERE CONSITIPATION; Start at 03:30; Stop 07/27/17 at 17:16; Status DC Pharmacy Profile Note 0 ml @ 0 mls/hr UNSCH OTHER ; Start 07/14/17 at 03:30 Vancomycin HCl 1000 mg/Sodium Chloride 250 ml @ 250 mls/hr ONCE ONCE IV ; Start 07/14/17 at 03:30; Stop 07/14/17 at 04:29; Status UNV Hydromorphone HCl (Dilaudid Pf Inj) 0.5 mg Q4H PRN IV PAIN 1-10 Last administered on 07/16/17 10:32; Start 07/14/17 at 04:00; Stop 07/16/17 at 12:44 ; Status DC Fentanyl Citrate 250 ml @ 5 mls/hr Q24H PRN IV SEDATION Last administered on 04:29; Start 07/14/17 at 03:56; Stop 07/16/17 at 12:44; Status DC Hydralazine HCl (Apresoline Inj) 20 mg Q4H PRN IV PUSH SBP>160, DBP>90 Last administered on 07/29/17 23:50; Start 07/14/17 at 04:00 Pharmacy Profile Note 0 ml @ 0 mls/hr UNSCH OTHER ; Start 07/14/17 at 05:30; Stop 07/14/17 at 05:30; Status DC Vancomycin HCl 1000 mg/Sodium Chloride 250 ml @ 250 mls/hr ONCE ONCE IV ; Start 07/14/17 at 05:30; Stop 07/14/17 at 06:29; Status UNV Dextrose (D50w (Vial) Inj) 50 ml UNSCH PRN IV HYPOGLYCEMIA-SEE COMMENTS; Start 07/14/17 at 05:30; Stop 07/14/17 at 10:45; Status DC Glucagon (Glucagon Inj) 1 mg UNSCH PRN OTHER HYPOGLYCEMIA-SEE COMMENTS; Start 07/14/17 at 05:30; Stop 07/14/17 at 10:45; Status DC Insulin Aspart (NovoLOG SUPPLEMENTAL SCALE) 1 ACHS SLIDING SCALE SQ Last administered on 07/14/17 06:42; Start 07/14/17 at 07:00; Stop 07/14/17 at 10:10 ; Status DC Vancomycin HCl 1500 mg/Sodium Chloride 515 ml @ 250 mls/hr Q12H IV Last administered on 07/16/17 06:01; Start 07/14/17 at 14:00; Stop 07/16/17 at 08:58 ; Status DC Miscellaneous Information SPECIFIC LAB TO BE DRAWN:VANCOMYCIN TROUGH DATE TO... ONCE ONCE .XX ; Start 07/16/17 at 01:45; Stop 07/16/17 at 01:46; Status DC Sodium Chloride 1,000 ml @ 84 mls/hr [id number] IV Last administered on 00:19; Start 07/14/17 at 11:00; Stop 07/16/17 at 12:44; Status DC Dextrose (D50w (Vial) Inj) 50 ml UNSCH PRN IV HYPOGLYCEMIA-SEE COMMENTS; Start 07/14/17 at 10:15; Stop 07/17/17 at 09:56; Status DC Glucagon (Glucagon Inj) 1 mg UNSCH PRN OTHER HYPOGLYCEMIA-SEE COMMENTS; Start 07/14/17 at 10:15; Stop 07/17/17 at 09:56; Status DC Insulin Human Regular (NovoLIN R SUPPLEMENTAL SCALE) 1 Q4H SQ Last administered on 07/15/17 06:48; Start 07/14/17 at 11:00; Stop 07/16/17 at 17:20 ; Status DC Potassium Chloride 100 ml @ 50 mls/hr Q2H PRN IV For Potassium 2.8 - 3.2 mEq/ L Last administered on 07/18/17 16:54; Start 07/14/17 at 10:15; Stop 07/23/17 at 13:47; Status DC Potassium Chloride 100 ml @ 50 mls/hr Q2H PRN IV For Potassium 2.8 - 3.2 mEq/L ; Start 07/14/17 at 10:15; Stop 07/23/17 at 13:47; Status DC Potassium Bicarb/ Potassium Chloride (K-Lyte Cl Eff) 50 meq UNSCH PRN PO For Potassium 3.3 - 3.5 mEq/L; Start 07/14/17 at 10:15; Stop 07/23/17 at 13:47; Status DC Potassium Chloride 100 ml @ 25 mls/hr UNSCH PRN IV For Potassium 3.3 - 3.5 mEq /L Last administered on 07/20/17t 17:13; Start 07/14/17 at 10:15; Stop 07/23/17 at 13:47; Status DC Potassium Chloride 100 ml @ 50 mls/hr Q2H PRN IV For Potassium 3.3 - 3.5 mEq/L ; Start 07/14/17 at 10:15; Stop 07/23/17 at 13:47; Status DC Magnesium Sulfate 4 gm/Sodium Chloride 100 ml @ 50 mls/hr UNSCH PRN IV For Magnesium 0.9 - 1.1 mg/dL; Start 07/14/17 at 10:15; Stop 07/23/17 at 13:47; Status DC Magnesium Oxide (Mag-Ox) 800 mg UNSCH PRN PO For Magnesium 1.2 - 1.6 mg/dL; Start 07/14/17 at 10:15; Stop 07/23/17 at 13:47; Status DC Magnesium Sulfate 2 gm/Sodium Chloride 100 ml @ 50 mls/hr UNSCH PRN IV For Magnesium 1.2 - 1.6 mg/dL; Start 07/14/17 at 10:15; Stop 07/23/17 at 13:47; Status DC Potassium Phosphate (K-Phos) 2,000 mg Q4H PRN PO For Phosphorus < 2.5 mg/dL; Start 07/14/17 at 10:15; Stop 07/23/17 at 13:47; Status DC Sodium Phosphate 30 mmol/Sodium Chloride 250 ml @ 42 mls/hr UNSCH PRN IV For Phosphorus < 2.5 mg/dL; Start 07/14/17 at 10:15; Stop 07/23/17 at 13:47; Status DC Potassium Phosphate (K-Phos) 2,000 mg UNSCH PRN PO/TUBE SEE LABEL COMMENTS; Start 07/14/17 at 10:15; Stop 07/23/17 at 13:47; Status DC Potassium Phosphate 30 mmol/ Sodium Chloride 260 ml @ 42 mls/hr UNSCH PRN IV SEE LABEL COMMENTS; Start 07/14/17 at 10:15; Stop 07/23/17 at 13:47; Status DC Cyclobenzaprine HCl (Flexeril) 10 mg Q8H PRN PO muscle spasms Last administered on 08/01/17 12:38; Start 07/15/17 at 06:15 Famotidine (Pepcid Liq) 20 mg BID NG Last administered on 07/24/17 20:09; Start 07/15/17 at 09:00; Stop 07/31/17 at 10:14; Status DC Hydromorphone HCl (Dilaudid Pf Inj) 0.5 mg ONCE ONCE IV Last administered on 15:00; Start 07/15/17 at 15:00; Stop 07/15/17 at 15:01; Status DC Hydromorphone HCl (Dilaudid Pf Inj) 0.5 mg NOW ONCE IV PUSH ; Start 07/15/17 at 15:15; Stop 07/15/17 at 15:16; Status DC Furosemide (Lasix Inj) 40 mg STK-MED ONCE .ROUTE Last administered on 07:12; Start 07/16/17 at 07:12; Stop 07/16/17 at 07:13; Status DC Diltiazem HCl (Cardizem Inj) 25 mg STK-MED ONCE .ROUTE Last administered on 07:21; Start 07/16/17 at 07:21; Stop 07/16/17 at 07:22; Status DC Magnesium Sulfate/ Dextrose 100 ml @ 100 mls/hr Q1H IV Last administered on 08:45; Start 07/16/17 at 07:45; Stop 07/16/17 at 09:44; Status DC Potassium Chloride 100 ml @ 50 mls/hr Q2H IV Last administered on 07/16/17 09 :45; Start 07/16/17 at 07:45; Stop 07/16/17 at 11:44; Status DC Vancomycin HCl 1500 mg/Sodium Chloride 515 ml @ 250 mls/hr Q18H IV Last administered on 07/29/17 16:53; Start 07/17/17 at 00:00; Stop 07/30/17 at 14:21 ; Status DC Miscellaneous Information SPECIFIC LAB TO BE DRAWN:VANCO TROUGH DATE... ONCE ONCE .XX Last administered on 07/18/17 11:45; Start 07/18/17 at 11:45; Stop 07/18 at 11:46; Status DC Potassium Chloride (KCl) 40 meq NOW ONCE PO Last administered on 07/16/17 10: 32; Start 07/16/17 at 11:00; Stop 07/16/17 at 11:01; Status DC Hydromorphone HCl (Dilaudid Pf Inj) 0.5 mg Q2H PRN IV PAIN 6-10 or not taking po Last administered on 07/19/17 07:32; Start 07/16/17 at 14:00; Stop 07/19/17 at 07:52; Status DC Oxycodone HCl (Roxicodone) 5 mg Q4H PRN PO pain 1-5 Last administered on 19:30; Start 07/16/17 at 14:00; Stop 07/24/17 at 12:37; Status DC Diltiazem HCl (Cardizem) 60 mg Q6H PO Last administered on 08/01/17 12:30; Start 07/17/17 at 10:00 Dextrose (D50w (Vial) Inj) 50 ml UNSCH PRN IV HYPOGLYCEMIA-SEE COMMENTS; Start 07/17/17 at 09:00 Glucagon (Glucagon Inj) 1 mg UNSCH PRN OTHER HYPOGLYCEMIA-SEE COMMENTS; Start 07/17/17 at 09:00 Insulin Human Regular (NovoLIN R SUPPLEMENTAL SCALE) 1 Q6H SQ ; Start 07/17/17 at 10:00 Aztreonam 2000 mg/ Sodium Chloride 100 ml @ 200 mls/hr Q8H IV ; Start 07/17/17 at 10:00; Stop 07/17/17 at 10:02; Status DC Vancomycin HCl (VANCOMYCIN for oral use only) 125 mg QID PO Last administered on 07/28/17 10:05; Start 07/17/17 at 13:00; Stop 07/28/17 at 15:39; Status DC Hydromorphone HCl (Dilaudid Pf Inj) 0.5 mg ONCE ONCE IV PUSH Last administered on 07/17/17 14:40; Start 07/17/17 at 14:30; Stop 07/17/17 at 14:33; Status DC Hydralazine HCl (Apresoline) 50 mg Q8HR PO Last administered on 07/28/17 04:22 ; Start 07/18/17 at 09:30; Stop 07/28/17 at 14:43; Status DC Hydromorphone HCl (Dilaudid Pf Inj) 1 mg Q2H PRN IV PAIN 6-10 or not taking po Last administered on 07/24/17 15:43; Start 07/19/17 at 09:00; Stop 07/24/17 at 19: 32; Status DC Bumetanide (Bumex Inj) 1 mg ONCE ONCE IV PUSH Last administered on 07/20/17 08 :37; Start 07/20/17 at 08:00; Stop 07/20/17 at 08:01; Status DC Potassium Bicarb/ Potassium Chloride (K-Lyte Cl Eff) 50 meq ONCE ONCE PO Last administered on 07/21/17 09:35; Start 07/21/17 at 09:00; Stop 07/21/17 at 09: 01; Status DC Potassium Chloride 100 ml @ 100 mls/hr Q1H IV Last administered on 07/21/17 20 :41; Start 07/21/17 at 09:00; Stop 07/21/17 at 11:59; Status DC Miscellaneous Information SPECIFIC LAB TO BE DRAWN:VANCOMYCIN TROUGH DATE TO... ONCE ONCE .XX Last administered on 07/22/17 05:53; Start 07/22/17 at 05:45; Stop 07/22/17 at 05:46; Status DC Heparin Sodium (Porcine) (Heparin Inj) 10,000 units STK-MED ONCE .ROUTE Last administered on 07/21/17 13:44; Start 07/21/17 at 13:44; Stop 07/21/17 at 13:45; Status DC Vancomycin HCl (Vancomycin Inj) 1,000 mg STK-MED ONCE .ROUTE Last administered on 07/21/17 14:43; Start 07/21/17 at 14:10; Stop 07/21/17 at 14:11; Status DC Iohexol (Omnipaque 350 Inj) 50 ml ONCE ONCE .XX ; Start 07/21/17 at 14:44; Stop 07/21/17 at 14:45; Status DC Fentanyl Citrate (fentaNYL INJ) 100 mcg STK-MED ONCE .ROUTE ; Start 07/21/17 at 15:57; Stop 07/21/17 at 15:58; Status DC Miscellaneous Information ALL NURSING DEPARTME... UNSCH PRN .XX SEE LABEL COMMENTS; Start 07/21/17 at 15:49; Stop 07/22/17 at 15:48; Status DC Miscellaneous Information ALL NURSING DEPARTME... UNSCH PRN .XX SEE LABEL COMMENTS; Start 07/21/17 at 15:49; Stop 07/22/17 at 15:48; Status Cancel Potassium Chloride (KCl) 40 meq ONCE ONCE PO Last administered on 07/23/17 18: 59; Start 07/23/17 at 18:45; Stop 07/23/17 at 18:53; Status DC Lisinopril (Prinivil) 10 mg DAILY PO Last administered on 07/24/17 09:02; Start 07/23/17 at 18:45; Stop 07/24/17 at 19:25; Status DC Miscellaneous Information SPECIFIC LAB TO BE KARLA... ONCE ONCE .XX Last administered on 07/25/17 05:45; Start 07/25/17 at 05:45; Stop 07/25/17 at 05:46; Status DC Bupivacaine HCl (Marcaine Pf 0.5% Inj) 30 ml STK-MED ONCE .ROUTE ; Start at 09:24; Stop 07/24/17 at 09:25; Status DC Lidocaine HCl (Xylocaine 1% Inj (50 ml)) 50 ml STK-MED ONCE .ROUTE ; Start at 09:24; Stop 07/24/17 at 09:25; Status DC Sodium Chloride (NS Flush) 2 ml UNSCH PRN IV FLUSH FLUSH AFTER USING IV ACCESS Last administered on 07/28/17 06:25; Start 07/24/17 at 11:00 Sodium Chloride (NS Flush) 2 ml BID IV FLUSH Last administered on 08/01/17 08: 10; Start 07/24/17 at 21:00 Miscellaneous Information (Post-op Orders (for Pharmacy)) STAT ONCE XX ; Start 07/24/17 at 11:00; Stop 07/24/17 at 12:36; Status DC Hydromorphone HCl (Dilaudid Pf Inj) 1 mg Q3H PRN IV BREAKTHROUGH PAIN Last administered on 07/31/17 23:52; Start 07/24/17 at 11:00 Hydromorphone HCl (Dilaudid) 1 mg Q4H PRN PO PAIN SCALE 3 TO 5; Start 07/24/17 at 11:00; Stop 07/24/17 at 19:32; Status DC Hydromorphone HCl (Dilaudid) 2 mg Q4H PRN PO PAIN SCALE 6 TO 10 Last administered on 07/24/17 17:48; Start 07/24/17 at 11:00; Stop 07/24/17 at 19:32; Status DC Naloxone HCl (Narcan Inj) 0.4 mg UNSCH PRN IV SEE LABEL COMMENTS; Start at 11:00 Hydromorphone HCl (*DILAUDID PF INJ PERIprocedural ONLY) 1 mg STK-MED ONCE .ROUTE Last administered on 07/24/17 11:26; Start 07/24/17 at 11:26; Stop at 11:27; Status DC Miscellaneous Information ALL NURSING DEPARTME... UNSCH PRN .XX SEE LABEL COMMENTS; Start 07/24/17 at 10:55; Stop 07/25/17 at 10:54; Status DC Vancomycin HCl (Vancomycin Inj) 500 mg STK-MED ONCE .ROUTE Last administered on 07/24/17 13:59; Start 07/24/17 at 11:54; Stop 07/24/17 at 11:55; Status DC Vancomycin HCl (Vancomycin Inj) 1,000 mg STK-MED ONCE .ROUTE ; Start 07/24/17 at 11:55; Stop 07/24/17 at 11:56; Status DC Hydromorphone HCl (*DILAUDID PF INJ PERIprocedural ONLY) 1 mg STK-MED ONCE .ROUTE Last administered on 07/24/17 13:20; Start 07/24/17 at 13:20; Stop at 13:21; Status DC Lisinopril (Prinivil) 20 mg DAILY PO Last administered on 07/25/17 08:46; Start 07/25/17 at 09:00; Stop 07/25/17 at 14:49; Status DC Oxycodone HCl (Roxicodone) 10 mg Q4H PRN PO pain 6-10 Last administered on 08/01 06:15; Start 07/24/17 at 19:30 Oxycodone HCl (Roxicodone) 5 mg Q4H PRN PO pain 3-5; Start 07/24/17 at 19:30 Lisinopril (Prinivil) 20 mg BID PO Last administered on 07/26/17 08:50; Start 07/25/17 at 21:00; Stop 07/26/17 at 17:04; Status DC Lisinopril (Prinivil) 40 mg DAILY PO Last administered on 08/01/17 08:10; Start 07/27/17 at 09:00 Lisinopril (Prinivil) 20 mg ONCE ONCE PO Last administered on 07/26/17 17:00 ; Start 07/26/17 at 17:00; Stop 07/26/17 at 18:00; Status DC Hydralazine HCl (Apresoline) 50 mg Q6HR PO Last administered on 08/01/17 12:38 ; Start 07/28/17 at 18:00 Miscellaneous Information SPECIFIC LAB TO BE DRAWN:VANCOMYCIN TROUGH DATE TO... ONCE ONCE .XX Last administered on 07/30/17 12:30; Start 07/30/17 at 11:45; Stop 07/30/17 at 11:46; Status DC Acetaminophen (Tylenol) 650 mg Q6H PRN PO fever; Start 07/29/17 at 18:15 Clonidine (Catapres) 0.1 mg Q12HR PO Last administered on 08/01/17 08:10; Start 07/30/17 at 12:00 Vancomycin HCl 1250 mg/Sodium Chloride 262.5 ml @ 250 mls/hr Q18H IV Last administered on 08/01/17 06:06; Start 07/31/17 at 12:00 Miscellaneous Information SPECIFIC LAB TO BE ... 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 Aortogram with left lower extremity angiograms 2. Left SFA and popliteal artery angioplasty to 5 mm. 3. Right common femoral AngioSeal. s/p Amputation left hallux with metatarsal and medial cuneiform left foot continue with antibiotics per ID- f/u with podiatry and vascular surgery as outpatient. wound vac per podiatry and ID. Dementia; continue Aricept hypertension; continue lisinopril, hydralazine and cardizem- continue to monitor and adjust the regimen as needed. Hypokalemia; replaced Alison Ceja MD Aug 01, 2017 13:21
[2017-08-01 16:00] VITALS: BP 131/60; PULSE 68; RESP 18; TEMP 97; O2SAT 96
[2017-08-01 20:00] VITALS: BP 152/67; PULSE 63; PULSE 70; RESP 22; TEMP 99.1; O2SAT 94
[2017-08-01] MEDS: DONEPEZIL HCL 5 MG TAB PO SCH (20:38)
[2017-08-01] MEDS: ATORVASTATIN 40 MG TAB PO SCH (20:38)
[2017-08-01] MEDS: LATANOPROST 0.005% OPHT SOLN 2.5 ML BTL EACH EYE SCH (20:39)
[2017-08-01] MEDS: HYDROmorphone HCL PF 1 MG/ML VIAL IV PRN (20:39)
[2017-08-02] VITALS (8 sets, daily range): BP systolic 95–163; BP diastolic 58–72; PULSE 60–78; RESP 18–21; TEMP 97–100.4; O2SAT 94–97
[2017-08-02] MEDS: hydrALAZINE HCL 50 MG TAB PO SCH ×4 (00:56→17:22)
[2017-08-02] MEDS: VANCOMYCIN INJ 1,250 MG in SODIUM CHLOR 0.9% 250 ML INJ 250 ML IV SCH ×2 (00:56→17:23)
[2017-08-02] MEDS: INSULIN NovoLIN REGULAR SUPPLEMENTAL SCALE SQ SCH ×4 (03:31→20:48)
[2017-08-02] MEDS: CHLORHEXIDINE GLUCONATE 2 % 1 PACK (2 CLOTHS) TOP SCH (03:57)
[2017-08-02] MEDS: HYDROmorphone HCL PF 1 MG/ML VIAL IV PRN ×4 (03:57→17:23)
[2017-08-02] MEDS: DILTIAZEM HCL 60 MG TAB PO SCH ×4 (04:00→20:59)
[2017-08-02] MEDS: HEPARIN SODIUM - SQ 10,000 UNITS/ML VIAL SQ SCH ×3 (06:18→21:00)
[2017-08-02] MEDS: LACTOBACILLUS ACIDOPHILUS TAB PO SCH ×3 (08:00→16:33)
[2017-08-02] MEDS: DOCUSATE SODIUM 50 MG/SENNA 8.6 MG TAB PO SCH ×2 (09:00→21:00)
[2017-08-02] MEDS: cloNIDine HCL 0.1 MG TAB PO SCH ×3 (09:00→20:59)
[2017-08-02] MEDS: ARTIFICIAL TEARS OPTH SOLN 15 ML BTL EACH EYE SCH ×3 (09:00→17:53)
[2017-08-02] MEDS: BUDESONIDE-FORMOTEROL 80/4.5 MCG INHALER INH SCH ×2 (09:00→20:58)
[2017-08-02] MEDS: LISINOPRIL 20 MG TAB PO SCH (09:04)
[2017-08-02] MEDS: ASCORBIC ACID 500 MG TAB PO SCH (09:04)
[2017-08-02] MEDS: CITALOPRAM HYDROBROMIDE 20 MG TAB PO SCH (09:05)
[2017-08-02] MEDS: MULTIVITAMINS/MINERALS THERAPEUTIC TAB PO SCH (09:05)
[2017-08-02] MEDS: FERROUS SULFATE 325 MG (65 MG ELEMENTAL IRON) TAB PO SCH ×2 (09:05→17:22)
[2017-08-02] MEDS: SODIUM CHLORIDE 0.9% FLUSH 10 ML FLUSH IV FLUSH SCH ×2 (09:05→20:59)
[2017-08-02] MEDS: FAMOTIDINE 20 MG TAB NG SCH ×2 (09:05→21:00)
--- NOTE | 2017-08-02 09:12 | PD.POD ---
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 Patient underwent an arteriogram with intervention by Dr. Anand. 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 A negative pressure wound therapy VAC was applied. VAC appears to be functioning well. 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 Past Med/Surg/Social History Past Medical History Endocrine: REPORTS HX OF: Diabetes mellitus, Graves disease Cardiovascular: REPORTS HX OF: Hypertension, Peripheral vascular dz Gastrointestinal: REPORTS HX OF: Other GI history (prior GI bleed, pt finished c. diff treatment on friday 05/25) Musculoskeletal: REPORTS HX OF: Other musculoskeletal hx (L. shoulder pain worsen after his arm was injured in latest hospitalization) Cancer/Hematology: REPORTS HX OF: Anemia Past Surgical History Gastrointestinal: DENIES HX OF: Colectomy, total Musculoskeletal: REPORTS HX OF: Other musculoskeletal srg (resection of the first metatarsal head and sesamoids) Social History Smoking Status: Unknown If Ever Smoked Review of Systems Notes No changes to his 14 point review of systems exam from the previous visit Objective Vital Signs Vital Signs Date Time Temp Pulse Resp B/P (MAP) Pulse Ox O2 Delivery O2 Flow Rate FiO2 08/02/17 08:13 78 08/02/17 04:00 99.0 61 19 161/71 (101) 94 08/02/17 00:00 98.5 63 21 149/69 (95) 94 08/01/17 20:00 99.1 63 22 152/67 (95) 94 08/01/17 20:00 70 08/01/17 16:00 97.0 68 18 131/60 (83) 96 08/01/17 12:00 97.7 53 18 134/61 (85) 94 Coded Allergies: Sulfa (Sulfonamide Antibiotics) (Verified Allergy, Severe, Anaphylaxis, ) metronidazole (Verified Allergy, Severe, Fever, colitis, 07/07/17) While being treated for Cdiff. Doubt if true allergy. penicillin G (Verified Allergy, Severe, Anaphylaxis, 07/07/17) sulfamethoxazole (Verified Allergy, Severe, Anaphylaxis, 07/07/17) trimethoprim (Verified Allergy, Severe, Anaphylaxis, 07/07/17) erythromycin base (Verified Allergy, Intermediate, Rash, 07/07/17) aspirin (Verified Allergy, Unknown, 07/07/17) oxycodone (Verified Allergy, Unknown, 07/07/17) PT states oxycodone is fine, but percodan is too strong MRI PRECAUTION (Verified Adverse Reaction, Severe, BLADDER STIMULATOR, ) BRAIN ONLY ON RECEIVE ONLY COIL, P.O. 01/11/17, DML acetaminophen (Verified Adverse Reaction, Unknown, Psychosis, 07/07/17) meperidine (Verified Adverse Reaction, Unknown, Psychosis, 07/07/17) morphine (Verified Adverse Reaction, Unknown, Psychosis, 07/07/17) Uncoded Allergies: surgical tape (Allergy, Severe, 12/15/13) Medications and IVs Current Medications Etomidate (Amidate Inj) 40 mg STK-MED ONCE .ROUTE ; Start 07/14/17 at 00:32; Stop 07/14/17 at 00:33; Status DC Propofol 100 ml @ As Directed STK-MED ONCE .ROUTE ; Start 07/14/17 at 00:35; Stop 07/14/17 at 00:36; Status DC IV Flush (NS Flush) 2 ml UNSCH PRN IV FLUSH FLUSH AFTER USING IV ACCESS; Start 07/14/17 at 00:45; Stop 07/14/17 at 03:47; Status DC Vancomycin HCl 1450 mg/Sodium Chloride 514.5 ml @ 250 mls/hr ONCE ONCE IV Last administered on 07/14/17 02:36; Start 07/14/17 at 01:30; Stop 07/14/17 at 03:33; Status DC Aztreonam 2000 mg/ Sodium Chloride 100 ml @ 200 mls/hr ONCE ONCE IV Last administered on 07/14/17 02:08; Start 07/14/17 at 01:30; Stop 07/14/17 at 01:59 ; Status DC Racepinephrine (Racepinephrine 2.25% Neb) 0.5 ml ONCE ONCE NEB Last administered on 07/14/17 01:36; Start 07/14/17 at 01:30; Stop 07/14/17 at 01:31 ; Status DC Methylprednisolone Sodium Succinate (SoluMEDROL INJ) 60 mg ONCE ONCE IVP Last administered on 07/14/17 01:44; Start 07/14/17 at 01:30; Stop 07/14/17 at 01:31 ; Status DC Albuterol/ Ipratropium (Duoneb Neb) 1 ampule Q15M INH Last administered on 07/14 01:48; Start 07/14/17 at 01:30; Stop 07/14/17 at 02:01; Status DC Etomidate (Amidate Inj) 30 mg ONCE ONCE IV PUSH Last administered on 02:09; Start 07/14/17 at 02:00; Stop 07/14/17 at 02:02; Status DC Rocuronium Whitney (Zemuron Inj) 60 mg BOLUS ONCE IV Last administered on 07/14 02:08; Start 07/14/17 at 02:00; Stop 07/14/17 at 02:02; Status DC Propofol 100 ml @ 2.85 mls/hr Q35H6M PRN IV Ordered RASS Last administered on 01:37; Start 07/14/17 at 02:02; Stop 07/16/17 at 12:44; Status DC Midazolam HCl (Versed Inj) 5 mg STK-MED ONCE .ROUTE ; Start 07/14/17 at 02:30; Stop 07/14/17 at 02:31; Status DC Sodium Chloride 1,000 ml @ 999 mls/hr BOLUS ONCE IV Last administered on 07/14 03:32; Start 07/14/17 at 03:00; Stop 07/14/17 at 04:00; Status DC Midazolam HCl (Versed Inj) 5 mg ONCE ONCE IV PUSH Last administered on 03:06; Start 07/14/17 at 03:15; Stop 07/14/17 at 03:16; Status DC Midazolam HCl 100 ml @ 2 mls/hr Q50H PRN IV SEDATION Last administered on 03:39; Start 07/14/17 at 03:01; Stop 07/15/17 at 06:31; Status DC Midazolam HCl 100 ml @ As Directed STK-MED ONCE .ROUTE ; Start 07/14/17 at 03: 17; Stop 07/14/17 at 03:18; Status DC Aspirin (Aspirin Chew) 81 mg DAILY CHEW Last administered on 07/20/17 08:37; Start 07/14/17 at 09:00; Status Future Hold Atorvastatin Calcium (Lipitor) 40 mg HS PO Last administered on 08/01/17 20:38 ; Start 07/14/17 at 21:00 Citalopram Hydrobromide (CeleXA) 60 mg DAILY PO Last administered on 08/02/17 09:05; Start 07/14/17 at 09:00 Cyclobenzaprine HCl (Flexeril) 10 mg Q8HR PO Last administered on 07/15/17 04: 21; Start 07/14/17 at 06:00; Stop 07/15/17 at 06:31; Status DC Donepezil HCl (Aricept) 10 mg HS PO Last administered on 08/01/17 20:38; Start 07/14/17 at 21:00 Gabapentin (Neurontin) 100 mg TID PO ; Start 07/14/17 at 09:00; Stop 07/15/17 at 06:31; Status DC Lactobacillus Acidophilus (Lactinex) 1 tab TIDAC PO Last administered on 17:00; Start 07/14/17 at 08:00 Ascorbic Acid (Vitamin C) 1,000 mg DAILY PO Last administered on 08/02/17 09: 04; Start 07/14/17 at 09:00 Ferrous Sulfate (Ferrous Sulfate) 325 mg BIDPC PO Last administered on 09:05; Start 07/14/17 at 09:00 Budesonide/ Formoterol Fumarate (Symbicort 80-4.5 Mcg Inh) 1 puff BID INH Last administered on 08/01/17 20:39; Start 07/14/17 at 09:00 Multivitamins/ Minerals Therapeutic (Theragran M Tab) 1 tab DAILY PO Last administered on 08/02/17 09:05; Start 07/14/17 at 09:00 Latanoprost (Xalatan 0.005% Opth Soln) 1 drop HS EACH EYE Last administered on 08/01/17 20:39; Start 07/14/17 at 21:00 Sodium Chloride (NS Flush) 2 ml UNSCH PRN .XX FLUSH AFTER USING IV ACCESS; Start 07/14/17 at 03:30; Stop 07/24/17 at 12:35; Status DC Sodium Chloride (NS Flush) 2 ml BID .XX Last administered on 07/23/17 21:20; Start 07/14/17 at 09:00; Stop 07/24/17 at 12:35; Status DC Acetaminophen (Tylenol) 650 mg Q6H PRN PO FEVER >101F; Start 07/14/17 at 03:30 ; Stop 07/14/17 at 03:47; Status DC Morphine Sulfate (Morphine Inj) 2 mg Q2H PRN IV PAIN SCALE 6 TO 10; Start 07/14 at 03:30; Stop 07/14/17 at 03:47; Status DC Famotidine (Pepcid Inj) 20 mg Q12HR IV PUSH Last administered on 07/14/17 20: 45; Start 07/14/17 at 09:00; Stop 07/15/17 at 06:31; Status DC Midazolam HCl (Versed Inj) 2 mg Q1H PRN IV SEDATION; Start 07/14/17 at 03:30; Stop 07/15/17 at 06:31; Status DC Artificial Tears (Tears Naturale Opth Soln) 1 drop TID EACH EYE Last administered on 08/01/17 17:00; Start 07/14/17 at 09:00 Ondansetron HCl (Zofran Inj) 4 mg Q6H PRN IV NAUSEA OR VOMITING; Start at 03:30 Albuterol/ Ipratropium (Duoneb Neb) 1 ampule Q6HR NEB INH Last administered on 07/17/17 07:39; Start 07/14/17 at 04:00; Stop 07/18/17 at 03:59; Status DC Albuterol/ Ipratropium (Duoneb Neb) 1 ampule Q2HR NEB PRN INH WHEEZING Last administered on 07/21/17 02:00; Start 07/14/17 at 03:30 Heparin Sodium (Porcine) (Heparin Inj) 5,000 units Q8H SQ Last administered on 08/02/17 06:18; Start 07/14/17 at 06:00 Miscellaneous Information 1 Q361D XX ; Start 07/14/17 at 03:30 Chlorhexidine Gluconate (Chlorhexidine 2% Cloth) 3 pack Taper DAILY@04 TOP Last administered on 07/21/17 01:37; Start 07/14/17 at 04:00; Stop 07/10/18 at 03:59 Chlorhexidine Gluconate (Chlorhexidine 2% Cloth) 3 pack UNSCH PRN TOP HYGIENIC CARE; Start 07/14/17 at 03:30 Senna/Docusate Sodium (Medina-Colace) 1 tab BID PO Last administered on 08:33; Start 07/14/17 at 09:00 Magnesium Hydroxide (Milk Of Magnesia Liq) 30 ml Q12H PRN PO MILD - MODERATE CONSTIPATION; Start 07/14/17 at 03:30 Sennosides (Senokot) 17.2 mg Q12H PRN PO MODERATE - SEVERE CONSTIPATION; Start 07/14/17 at 03:30 Bisacodyl (Dulcolax Supp) 10 mg DAILY PRN RECTAL SEVERE CONSITIPATION; Start at 03:30 Lactulose (Lactulose Liq) 30 ml DAILY PRN PO SEVERE CONSITIPATION; Start at 03:30; Stop 07/27/17 at 17:16; Status DC Pharmacy Profile Note 0 ml @ 0 mls/hr UNSCH OTHER ; Start 07/14/17 at 03:30 Vancomycin HCl 1000 mg/Sodium Chloride 250 ml @ 250 mls/hr ONCE ONCE IV ; Start 07/14/17 at 03:30; Stop 07/14/17 at 04:29; Status UNV Hydromorphone HCl (Dilaudid Pf Inj) 0.5 mg Q4H PRN IV PAIN 1-10 Last administered on 07/16/17 10:32; Start 07/14/17 at 04:00; Stop 07/16/17 at 12:44 ; Status DC Fentanyl Citrate 250 ml @ 5 mls/hr Q24H PRN IV SEDATION Last administered on 04:29; Start 07/14/17 at 03:56; Stop 07/16/17 at 12:44; Status DC Hydralazine HCl (Apresoline Inj) 20 mg Q4H PRN IV PUSH SBP>160, DBP>90 Last administered on 07/29/17 23:50; Start 07/14/17 at 04:00 Pharmacy Profile Note 0 ml @ 0 mls/hr UNSCH OTHER ; Start 07/14/17 at 05:30; Stop 07/14/17 at 05:30; Status DC Vancomycin HCl 1000 mg/Sodium Chloride 250 ml @ 250 mls/hr ONCE ONCE IV ; Start 07/14/17 at 05:30; Stop 07/14/17 at 06:29; Status UNV Dextrose (D50w (Vial) Inj) 50 ml UNSCH PRN IV HYPOGLYCEMIA-SEE COMMENTS; Start 07/14/17 at 05:30; Stop 07/14/17 at 10:45; Status DC Glucagon (Glucagon Inj) 1 mg UNSCH PRN OTHER HYPOGLYCEMIA-SEE COMMENTS; Start 07/14/17 at 05:30; Stop 07/14/17 at 10:45; Status DC Insulin Aspart (NovoLOG SUPPLEMENTAL SCALE) 1 ACHS SLIDING SCALE SQ Last administered on 07/14/17 06:42; Start 07/14/17 at 07:00; Stop 07/14/17 at 10:10 ; Status DC Vancomycin HCl 1500 mg/Sodium Chloride 515 ml @ 250 mls/hr Q12H IV Last administered on 07/16/17 06:01; Start 07/14/17 at 14:00; Stop 07/16/17 at 08:58 ; Status DC Miscellaneous Information SPECIFIC LAB TO BE DRAWN:VANCOMYCIN TROUGH DATE TO... ONCE ONCE .XX ; Start 07/16/17 at 01:45; Stop 07/16/17 at 01:46; Status DC Sodium Chloride 1,000 ml @ 84 mls/hr [id number] IV Last administered on 00:19; Start 07/14/17 at 11:00; Stop 07/16/17 at 12:44; Status DC Dextrose (D50w (Vial) Inj) 50 ml UNSCH PRN IV HYPOGLYCEMIA-SEE COMMENTS; Start 07/14/17 at 10:15; Stop 07/17/17 at 09:56; Status DC Glucagon (Glucagon Inj) 1 mg UNSCH PRN OTHER HYPOGLYCEMIA-SEE COMMENTS; Start 07/14/17 at 10:15; Stop 07/17/17 at 09:56; Status DC Insulin Human Regular (NovoLIN R SUPPLEMENTAL SCALE) 1 Q4H SQ Last administered on 07/15/17 06:48; Start 07/14/17 at 11:00; Stop 07/16/17 at 17:20 ; Status DC Potassium Chloride 100 ml @ 50 mls/hr Q2H PRN IV For Potassium 2.8 - 3.2 mEq/ L Last administered on 07/18/17 16:54; Start 07/14/17 at 10:15; Stop 07/23/17 at 13:47; Status DC Potassium Chloride 100 ml @ 50 mls/hr Q2H PRN IV For Potassium 2.8 - 3.2 mEq/L ; Start 07/14/17 at 10:15; Stop 07/23/17 at 13:47; Status DC Potassium Bicarb/ Potassium Chloride (K-Lyte Cl Eff) 50 meq UNSCH PRN PO For Potassium 3.3 - 3.5 mEq/L; Start 07/14/17 at 10:15; Stop 07/23/17 at 13:47; Status DC Potassium Chloride 100 ml @ 25 mls/hr UNSCH PRN IV For Potassium 3.3 - 3.5 mEq /L Last administered on 07/20/17 17:13; Start 07/14/17 at 10:15; Stop 07/23/17 at 13:47; Status DC Potassium Chloride 100 ml @ 50 mls/hr Q2H PRN IV For Potassium 3.3 - 3.5 mEq/L ; Start 07/14/17 at 10:15; Stop 07/23/17 at 13:47; Status DC Magnesium Sulfate 4 gm/Sodium Chloride 100 ml @ 50 mls/hr UNSCH PRN IV For Magnesium 0.9 - 1.1 mg/dL; Start 07/14/17 at 10:15; Stop 07/23/17 at 13:47; Status DC Magnesium Oxide (Mag-Ox) 800 mg UNSCH PRN PO For Magnesium 1.2 - 1.6 mg/dL; Start 07/14/17 at 10:15; Stop 07/23/17 at 13:47; Status DC Magnesium Sulfate 2 gm/Sodium Chloride 100 ml @ 50 mls/hr UNSCH PRN IV For Magnesium 1.2 - 1.6 mg/dL; Start 07/14/17 at 10:15; Stop 07/23/17 at 13:47; Status DC Potassium Phosphate (K-Phos) 2,000 mg Q4H PRN PO For Phosphorus < 2.5 mg/dL; Start 07/14/17 at 10:15; Stop 07/23/17 at 13:47; Status DC Sodium Phosphate 30 mmol/Sodium Chloride 250 ml @ 42 mls/hr UNSCH PRN IV For Phosphorus < 2.5 mg/dL; Start 07/14/17 at 10:15; Stop 07/23/17 at 13:47; Status DC Potassium Phosphate (K-Phos) 2,000 mg UNSCH PRN PO/TUBE SEE LABEL COMMENTS; Start 07/14/17 at 10:15; Stop 07/23/17 at 13:47; Status DC Potassium Phosphate 30 mmol/ Sodium Chloride 260 ml @ 42 mls/hr UNSCH PRN IV SEE LABEL COMMENTS; Start 07/14/17 at 10:15; Stop 07/23/17 at 13:47; Status DC Cyclobenzaprine HCl (Flexeril) 10 mg Q8H PRN PO muscle spasms Last administered on 08/01/17 12:38; Start 07/15/17 at 06:15 Famotidine (Pepcid Liq) 20 mg BID NG Last administered on 07/24/17 20:09; Start 07/15/17 at 09:00; Stop 07/31/17 at 10:14; Status DC Hydromorphone HCl (Dilaudid Pf Inj) 0.5 mg ONCE ONCE IV Last administered on 15:00; Start 07/15/17 at 15:00; Stop 07/15/17 at 15:01; Status DC Hydromorphone HCl (Dilaudid Pf Inj) 0.5 mg NOW ONCE IV PUSH ; Start 07/15/17 at 15:15; Stop 07/15/17 at 15:16; Status DC Furosemide (Lasix Inj) 40 mg STK-MED ONCE .ROUTE Last administered on 07:12; Start 07/16/17 at 07:12; Stop 07/16/17 at 07:13; Status DC Diltiazem HCl (Cardizem Inj) 25 mg STK-MED ONCE .ROUTE Last administered on 07:21; Start 07/16/17 at 07:21; Stop 07/16/17 at 07:22; Status DC Magnesium Sulfate/ Dextrose 100 ml @ 100 mls/hr Q1H IV Last administered on 08:45; Start 07/16/17 at 07:45; Stop 07/16/17 at 09:44; Status DC Potassium Chloride 100 ml @ 50 mls/hr Q2H IV Last administered on 07/16/17 09 :45; Start 07/16/17 at 07:45; Stop 07/16/17 at 11:44; Status DC Vancomycin HCl 1500 mg/Sodium Chloride 515 ml @ 250 mls/hr Q18H IV Last administered on 07/29/17 16:53; Start 07/17/17 at 00:00; Stop 07/30/17 at 14:21 ; Status DC Miscellaneous Information SPECIFIC LAB TO BE DRAWN:VANCO TROUGH DATE... ONCE ONCE .XX Last administered on 07/18/17 11:45; Start 07/18/17 at 11:45; Stop 07/18 at 11:46; Status DC Potassium Chloride (KCl) 40 meq NOW ONCE PO Last administered on 07/16/17 10: 32; Start 07/16/17 at 11:00; Stop 07/16/17 at 11:01; Status DC Hydromorphone HCl (Dilaudid Pf Inj) 0.5 mg Q2H PRN IV PAIN 6-10 or not taking po Last administered on 07/19/17 07:32; Start 07/16/17 at 14:00; Stop 07/19/17 at 07:52; Status DC Oxycodone HCl (Roxicodone) 5 mg Q4H PRN PO pain 1-5 Last administered on 19:30; Start 07/16/17 at 14:00; Stop 07/24/17 at 12:37; Status DC Diltiazem HCl (Cardizem) 60 mg Q6H PO Last administered on 08/02/17 09:05; Start 07/17/17 at 10:00 Dextrose (D50w (Vial) Inj) 50 ml UNSCH PRN IV HYPOGLYCEMIA-SEE COMMENTS; Start 07/17/17 at 09:00 Glucagon (Glucagon Inj) 1 mg UNSCH PRN OTHER HYPOGLYCEMIA-SEE COMMENTS; Start 07/17/17 at 09:00 Insulin Human Regular (NovoLIN R SUPPLEMENTAL SCALE) 1 Q6H SQ ; Start 07/17/17 at 10:00 Aztreonam 2000 mg/ Sodium Chloride 100 ml @ 200 mls/hr Q8H IV ; Start 07/17/17 at 10:00; Stop 07/17/17 at 10:02; Status DC Vancomycin HCl (VANCOMYCIN for oral use only) 125 mg QID PO Last administered on 07/28/17 10:05; Start 07/17/17 at 13:00; Stop 07/28/17 at 15:39; Status DC Hydromorphone HCl (Dilaudid Pf Inj) 0.5 mg ONCE ONCE IV PUSH Last administered on 07/17/17 14:40; Start 07/17/17 at 14:30; Stop 07/17/17 at 14:33; Status DC Hydralazine HCl (Apresoline) 50 mg Q8HR PO Last administered on 07/28/17 04:22 ; Start 07/18/17 at 09:30; Stop 07/28/17 at 14:43; Status DC Hydromorphone HCl (Dilaudid Pf Inj) 1 mg Q2H PRN IV PAIN 6-10 or not taking po Last administered on 07/24/17 15:43; Start 07/19/17 at 09:00; Stop 07/24/17 at 19: 32; Status DC Bumetanide (Bumex Inj) 1 mg ONCE ONCE IV PUSH Last administered on 07/20/17 08 :37; Start 07/20/17 at 08:00; Stop 07/20/17 at 08:01; Status DC Potassium Bicarb/ Potassium Chloride (K-Lyte Cl Eff) 50 meq ONCE ONCE PO Last administered on 07/21/17 09:35; Start 07/21/17 at 09:00; Stop 07/21/17 at 09: 01; Status DC Potassium Chloride 100 ml @ 100 mls/hr Q1H IV Last administered on 07/21/17 20 :41; Start 07/21/17 at 09:00; Stop 07/21/17 at 11:59; Status DC Miscellaneous Information SPECIFIC LAB TO BE DRAWN:VANCOMYCIN TROUGH DATE TO... ONCE ONCE .XX Last administered on 07/22/17 05:53; Start 07/22/17 at 05:45; Stop 07/22/17 at 05:46; Status DC Heparin Sodium (Porcine) (Heparin Inj) 10,000 units STK-MED ONCE .ROUTE Last administered on 07/21/17 13:44; Start 07/21/17 at 13:44; Stop 07/21/17 at 13:45; Status DC Vancomycin HCl (Vancomycin Inj) 1,000 mg STK-MED ONCE .ROUTE Last administered on 07/21/17 14:43; Start 07/21/17 at 14:10; Stop 07/21/17 at 14:11; Status DC Iohexol (Omnipaque 350 Inj) 50 ml ONCE ONCE .XX ; Start 07/21/17 at 14:44; Stop 07/21/17 at 14:45; Status DC Fentanyl Citrate (fentaNYL INJ) 100 mcg STK-MED ONCE .ROUTE ; Start 07/21/17 at 15:57; Stop 07/21/17 at 15:58; Status DC Miscellaneous Information ALL NURSING DEPARTME... UNSCH PRN .XX SEE LABEL COMMENTS; Start 07/21/17 at 15:49; Stop 07/22/17 at 15:48; Status DC Miscellaneous Information ALL NURSING DEPARTME... UNSCH PRN .XX SEE LABEL COMMENTS; Start 07/21/17 at 15:49; Stop 07/22/17 at 15:48; Status Cancel Potassium Chloride (KCl) 40 meq ONCE ONCE PO Last administered on 07/23/17 18: 59; Start 07/23/17 at 18:45; Stop 07/23/17 at 18:53; Status DC Lisinopril (Prinivil) 10 mg DAILY PO Last administered on 07/24/17 09:02; Start 07/23/17 at 18:45; Stop 07/24/17 at 19:25; Status DC Miscellaneous Information SPECIFIC LAB TO BE KARLA... ONCE ONCE .XX Last administered on 07/25/17 05:45; Start 07/25/17 at 05:45; Stop 07/25/17 at 05:46; Status DC Bupivacaine HCl (Marcaine Pf 0.5% Inj) 30 ml STK-MED ONCE .ROUTE ; Start at 09:24; Stop 07/24/17 at 09:25; Status DC Lidocaine HCl (Xylocaine 1% Inj (50 ml)) 50 ml STK-MED ONCE .ROUTE ; Start at 09:24; Stop 07/24/17 at 09:25; Status DC Sodium Chloride (NS Flush) 2 ml UNSCH PRN IV FLUSH FLUSH AFTER USING IV ACCESS Last administered on 07/28/17 06:25; Start 07/24/17 at 11:00 Sodium Chloride (NS Flush) 2 ml BID IV FLUSH Last administered on 08/02/17 09: 05; Start 07/24/17 at 21:00 Miscellaneous Information (Post-op Orders (for Pharmacy)) STAT ONCE XX ; Start 07/24/17 at 11:00; Stop 07/24/17 at 12:36; Status DC Hydromorphone HCl (Dilaudid Pf Inj) 1 mg Q3H PRN IV BREAKTHROUGH PAIN Last administered on 08/02/17 09:04; Start 07/24/17 at 11:00 Hydromorphone HCl (Dilaudid) 1 mg Q4H PRN PO PAIN SCALE 3 TO 5; Start 07/24/17 at 11:00; Stop 07/24/17 at 19:32; Status DC Hydromorphone HCl (Dilaudid) 2 mg Q4H PRN PO PAIN SCALE 6 TO 10 Last administered on 07/24/17 17:48; Start 07/24/17 at 11:00; Stop 07/24/17 at 19:32; Status DC Naloxone HCl (Narcan Inj) 0.4 mg UNSCH PRN IV SEE LABEL COMMENTS; Start at 11:00 Hydromorphone HCl (*DILAUDID PF INJ PERIprocedural ONLY) 1 mg STK-MED ONCE .ROUTE Last administered on 07/24/17 11:26; Start 07/24/17 at 11:26; Stop at 11:27; Status DC Miscellaneous Information ALL NURSING DEPARTME... UNSCH PRN .XX SEE LABEL COMMENTS; Start 07/24/17 at 10:55; Stop 07/25/17 at 10:54; Status DC Vancomycin HCl (Vancomycin Inj) 500 mg STK-MED ONCE .ROUTE Last administered on 07/24/17 13:59; Start 07/24/17 at 11:54; Stop 07/24/17 at 11:55; Status DC Vancomycin HCl (Vancomycin Inj) 1,000 mg STK-MED ONCE .ROUTE ; Start 07/24/17 at 11:55; Stop 07/24/17 at 11:56; Status DC Hydromorphone HCl (*DILAUDID PF INJ PERIprocedural ONLY) 1 mg STK-MED ONCE .ROUTE Last administered on 07/24/17 13:20; Start 07/24/17 at 13:20; Stop at 13:21; Status DC Lisinopril (Prinivil) 20 mg DAILY PO Last administered on 07/25/17 08:46; Start 07/25/17 at 09:00; Stop 07/25/17 at 14:49; Status DC Oxycodone HCl (Roxicodone) 10 mg Q4H PRN PO pain 6-10 Last administered on 08/02 06:18; Start 07/24/17 at 19:30 Oxycodone HCl (Roxicodone) 5 mg Q4H PRN PO pain 3-5; Start 07/24/17 at 19:30 Lisinopril (Prinivil) 20 mg BID PO Last administered on 07/26/17 08:50; Start 07/25/17 at 21:00; Stop 07/26/17 at 17:04; Status DC Lisinopril (Prinivil) 40 mg DAILY PO Last administered on 08/02/17 09:04; Start 07/27/17 at 09:00 Lisinopril (Prinivil) 20 mg ONCE ONCE PO Last administered on 07/26/17 17:00 ; Start 07/26/17 at 17:00; Stop 07/26/17 at 18:00; Status DC Hydralazine HCl (Apresoline) 50 mg Q6HR PO Last administered on 08/02/17 06:18 ; Start 07/28/17 at 18:00 Miscellaneous Information SPECIFIC LAB TO BE DRAWN:VANCOMYCIN TROUGH DATE TO... ONCE ONCE .XX Last administered on 07/30/17 12:30; Start 07/30/17 at 11:45; Stop 07/30/17 at 11:46; Status DC Acetaminophen (Tylenol) 650 mg Q6H PRN PO fever; Start 07/29/17 at 18:15 Clonidine (Catapres) 0.1 mg Q12HR PO Last administered on 08/02/17 09:05; Start 07/30/17 at 12:00 Vancomycin HCl 1250 mg/Sodium Chloride 262.5 ml @ 250 mls/hr Q18H IV Last administered on 08/02/17 00:56; Start 07/31/17 at 12:00 Miscellaneous Information SPECIFIC LAB TO BE .. ONCE ONCE .XX ; Start 08/02 at 17:45; Stop 08/02/17 at 17:46 Famotidine (Pepcid) 20 mg BID NG Last administered on 08/02/17 09:05; Start at 21:00 Other Results Laboratory Tests Test 07/31/17 09:25 White Blood Count 12.1 TH/MM3 Red Blood Count 3.23 MIL/MM3 Hemoglobin 8.6 GM/DL Hematocrit 26.8 % Mean Corpuscular Volume 83.1 FL Mean Corpuscular Hemoglobin 26.5 PG Mean Corpuscular Hemoglobin Concent 31.9 % Red Cell Distribution Width 17.5 % Platelet Count 386 TH/MM3 Mean Platelet Volume 8.2 FL Neutrophils (%) (Auto) 71.2 % Lymphocytes (%) (Auto) 12.7 % Monocytes (%) (Auto) 14.0 % Eosinophils (%) (Auto) 1.4 % Basophils (%) (Auto) 0.7 % Neutrophils # (Auto) 8.6 TH/MM3 Lymphocytes # (Auto) 1.5 TH/MM3 Monocytes # (Auto) 1.7 TH/MM3 Eosinophils # (Auto) 0.2 TH/MM3 Basophils # (Auto) 0.1 TH/MM3 CBC Comment DIFF FINAL Differential Comment Laboratory Tests Test 08/01/17 10:23 Creatinine 1.24 MG/DL Estimat Glomerular Filtration Rate 57 ML/MIN Microbiology Date/Time Source Procedure Growth Status 07/30/17 16:20 Wound Foot Gram Stain - Final Complete 07/30/17 16:20 Wound Culture - Final S. Aureus Mrsa Complete Exam-Podiatry Constitutional General appearance: comfortable Nutritional status: normal Orientation: alert and oriented x3 Dermatological Exam Skin Temp - Right: Within Normal Limits Skin Texture - Right: Within Normal Limits Skin Elasticity - Right: Within Normal Limits Skin Tugor - Right: Within Normal Limits Hair Growth - Right: Within Normal Limits Pigmentation - Right: Within Normal Limits Skin Temp - Left: Within Normal Limits Skin Texture - Left: Within Normal Limits Skin Elasticity - Left: Within Normal Limits Skin Tugor - Left: Within Normal Limits Hair Growth - Left: Within Normal Limits Pigmentation - Left: Within Normal Limits Ulcers: Location/Measurements Wound left foot is granulating well. However there is some odor. No purulence seen. Vascular/Lymphatic Exam R Dorsails Pedis: Doppler L Dorsails Pedis: Doppler R Posterior Tibial: Doppler L Posterior Tibial: Doppler Neurologic Exam Present on right: Tingling Present on left: Tingling Musculoskeletal Exam Details First ray amputation left foot Assessment & Plan Diagnosis: (1) Diabetes mellitus with peripheral angiopathy with gangrene ICD Codes: E11.52 - Type 2 diabetes mellitus with diabetic peripheral angiopathy with gangrene Status: Resolved (2) Foot ulceration ICD Codes: L97.509 - Non-pressure chronic ulcer of other part of unspecified foot with unspecified severity Status: Acute A/P PLAN: Hold VAC unit for now. Will change to a Maxorb extra AG dressings daily. Continue to follow. Problem Qualifiers (1) Diabetes mellitus with peripheral angiopathy with gangrene: Qualified Codes: E11.52 - Type 2 diabetes mellitus with diabetic peripheral angiopathy with gangrene Gamal Arvizu DPM Aug 02, 2017 09:11
--- NOTE | 2017-08-02 11:38 | HHI.PR ---
Subjective Remarks in no acute distress. has some pain to the shoulders. no fever. at the bedside. Objective Vitals Vital Signs Date Time Temp Pulse Resp B/P (MAP) Pulse Ox O2 Delivery O2 Flow Rate FiO2 08/02/17 10:11 94 21 08/02/17 08:13 78 08/02/17 04:00 99.0 61 19 161/71 (101) 94 08/02/17 00:00 98.5 63 21 149/69 (95) 94 08/01/17 20:00 99.1 63 22 152/67 (95) 94 08/01/17 20:00 70 08/01/17 16:00 97.0 68 18 131/60 (83) 96 08/01/17 12:00 97.7 53 18 134/61 (85) 94 I/O 08/01/17 08/01/17 08/01/17 08/02/17 08/02/17 08/02/17 07:00 15:00 23:00 07:00 15:00 23:00 Intake Total 960 ml 480 ml 460 ml Output Total 500 ml 700 ml 850 ml Balance 460 ml -220 ml -390 ml Intake Oral 960 ml 480 ml 460 ml Output Urine Total 500 ml 700 ml 850 ml # Bowel Movements 1 0 Result Diagram: 07/31/17 0925 08/01/17 1023 Imaging Last Impressions Foot X-Ray 07/24/17 0000 Signed Impressions: Service Date/Time: Monday, July 24, 2017 11:21 - CONCLUSION: Postop amputation. K. Leroy Willis MD Chest X-Ray 07/21/17 0000 Signed Impressions: Service Date/Time: Friday, July 21, 2017 07:49 - CONCLUSION: 1. Left lower lobe atelectasis versus pneumonia. There has been no significant change when compared to the prior exam. Yo Mcbride MD Lower Extremity Ultrasound 07/18/17 0000 Signed Impressions: Service Date/Time: Tuesday, July 18, 2017 10:04 - CONCLUSION: Normal examination. Bautista Hoff MD Head CT 07/14/17 0043 Signed Impressions: Service Date/Time: Friday, July 14, 2017 02:09 - CONCLUSION: No acute intracranial abnormality is identified. Jose Miller MD Ankle X-Ray 07/14/17 0000 Signed Impressions: Service Date/Time: Friday, July 14, 2017 01:48 - CONCLUSION: No acute left ankle abnormality is identified. Jose Miller MD Objective Remarks GENERAL: This is a well-nourished, well-developed patient, in no apparent distress. CARDIOVASCULAR: Regular rate and regular rhythm without murmurs, gallops, or rubs. RESPIRATORY: Clear to auscultation. Breath sounds equal bilaterally. No wheezes , rales, or rhonchi. GASTROINTESTINAL: Abdomen soft, non-tender, nondistended. Normal, active bowel sounds MUSCULOSKELETAL: left foot covered with clean dressing. NEURO: Alert & Oriented x4 to person, place, time, situation. Moves all ext x4 Medications and IVs Current Medications Etomidate (Amidate Inj) 40 mg STK-MED ONCE .ROUTE ; Start 07/14/17 at 00:32; Stop 07/14/17 at 00:33; Status DC Propofol 100 ml @ As Directed STK-MED ONCE .ROUTE ; Start 07/14/17 at 00:35; Stop 07/14/17 at 00:36; Status DC IV Flush (NS Flush) 2 ml UNSCH PRN IV FLUSH FLUSH AFTER USING IV ACCESS; Start 07/14/17 at 00:45; Stop 07/14/17 at 03:47; Status DC Vancomycin HCl 1450 mg/Sodium Chloride 514.5 ml @ 250 mls/hr ONCE ONCE IV Last administered on 07/14/17 02:36; Start 07/14/17 at 01:30; Stop 07/14/17 at 03:33; Status DC Aztreonam 2000 mg/ Sodium Chloride 100 ml @ 200 mls/hr ONCE ONCE IV Last administered on 07/14/17 02:08; Start 07/14/17 at 01:30; Stop 07/14/17 at 01:59 ; Status DC Racepinephrine (Racepinephrine 2.25% Neb) 0.5 ml ONCE ONCE NEB Last administered on 07/14/17 01:36; Start 07/14/17 at 01:30; Stop 07/14/17 at 01:31 ; Status DC Methylprednisolone Sodium Succinate (SoluMEDROL INJ) 60 mg ONCE ONCE IVP Last administered on 07/14/17 01:44; Start 07/14/17 at 01:30; Stop 07/14/17 at 01:31 ; Status DC Albuterol/ Ipratropium (Duoneb Neb) 1 ampule Q15M INH Last administered on 07/14 01:48; Start 07/14/17 at 01:30; Stop 07/14/17 at 02:01; Status DC Etomidate (Amidate Inj) 30 mg ONCE ONCE IV PUSH Last administered on 02:09; Start 07/14/17 at 02:00; Stop 07/14/17 at 02:02; Status DC Rocuronium [place] (Zemuron Inj) 60 mg BOLUS ONCE IV Last administered on 07/14 02:08; Start 07/14/17 at 02:00; Stop 07/14/17 at 02:02; Status DC Propofol 100 ml @ 2.85 mls/hr Q35H6M PRN IV Ordered RASS Last administered on 01:37; Start 07/14/17 at 02:02; Stop 07/16/17 at 12:44; Status DC Midazolam HCl (Versed Inj) 5 mg STK-MED ONCE .ROUTE ; Start 07/14/17 at 02:30; Stop 07/14/17 at 02:31; Status DC Sodium Chloride 1,000 ml @ 999 mls/hr BOLUS ONCE IV Last administered on 07/14 03:32; Start 07/14/17 at 03:00; Stop 07/14/17 at 04:00; Status DC Midazolam HCl (Versed Inj) 5 mg ONCE ONCE IV PUSH Last administered on 03:06; Start 07/14/17 at 03:15; Stop 07/14/17 at 03:16; Status DC Midazolam HCl 100 ml @ 2 mls/hr Q50H PRN IV SEDATION Last administered on 03:39; Start 07/14/17 at 03:01; Stop 07/15/17 at 06:31; Status DC Midazolam HCl 100 ml @ As Directed STK-MED ONCE .ROUTE ; Start 07/14/17 at 03: 17; Stop 07/14/17 at 03:18; Status DC Aspirin (Aspirin Chew) 81 mg DAILY CHEW Last administered on 07/20/17 08:37; Start 07/14/17 at 09:00; Status Future Hold Atorvastatin Calcium (Lipitor) 40 mg HS PO Last administered on 08/01/17 20:38 ; Start 07/14/17 at 21:00 Citalopram Hydrobromide (CeleXA) 60 mg DAILY PO Last administered on 08/02/17 09:05; Start 07/14/17 at 09:00 Cyclobenzaprine HCl (Flexeril) 10 mg Q8HR PO Last administered on 07/15/17 04: 21; Start 07/14/17 at 06:00; Stop 07/15/17 at 06:31; Status DC Donepezil HCl (Aricept) 10 mg HS PO Last administered on 08/01/17 20:38; Start 07/14/17 at 21:00 Gabapentin (Neurontin) 100 mg TID PO ; Start 07/14/17 at 09:00; Stop 07/15/17 at 06:31; Status DC Lactobacillus Acidophilus (Lactinex) 1 tab TIDAC PO Last administered on 08:00; Start 07/14/17 at 08:00 Ascorbic Acid (Vitamin C) 1,000 mg DAILY PO Last administered on 08/02/17 09: 04; Start 07/14/17 at 09:00 Ferrous Sulfate (Ferrous Sulfate) 325 mg BIDPC PO Last administered on 09:05; Start 07/14/17 at 09:00 Budesonide/ Formoterol Fumarate (Symbicort 80-4.5 Mcg Inh) 1 puff BID INH Last administered on 08/02/17 09:00; Start 07/14/17 at 09:00 Multivitamins/ Minerals Therapeutic (Theragran M Tab) 1 tab DAILY PO Last administered on 08/02/17 09:05; Start 07/14/17 at 09:00 Latanoprost (Xalatan 0.005% Opt Soln) 1 drop HS EACH EYE Last administered on 08/01/17 20:39; Start 07/14/17 at 21:00 Sodium Chloride (NS Flush) 2 ml UNSCH PRN .XX FLUSH AFTER USING IV ACCESS; Start 07/14/17 at 03:30; Stop 07/24/17 at 12:35; Status DC Sodium Chloride (NS Flush) 2 ml BID .XX Last administered on 07/23/17 21:20; Start 07/14/17 at 09:00; Stop 07/24/17 at 12:35; Status DC Acetaminophen (Tylenol) 650 mg Q6H PRN PO FEVER >101F; Start 07/14/17 at 03:30 ; Stop 07/14/17 at 03:47; Status DC Morphine Sulfate (Morphine Inj) 2 mg Q2H PRN IV PAIN SCALE 6 TO 10; Start 07/14 at 03:30; Stop 07/14/17 at 03:47; Status DC Famotidine (Pepcid Inj) 20 mg Q12HR IV PUSH Last administered on 07/14/17 20: 45; Start 07/14/17 at 09:00; Stop 07/15/17 at 06:31; Status DC Midazolam HCl (Versed Inj) 2 mg Q1H PRN IV SEDATION; Start 07/14/17 at 03:30; Stop 07/15/17 at 06:31; Status DC Artificial Tears (Tears Naturale Opth Soln) 1 drop TID EACH EYE Last administered on 08/02/17 09:00; Start 07/14/17 at 09:00 Ondansetron HCl (Zofran Inj) 4 mg Q6H PRN IV NAUSEA OR VOMITING; Start at 03:30 Albuterol/ Ipratropium (Duoneb Neb) 1 ampule Q6HR NEB INH Last administered on 07/17/17 07:39; Start 07/14/17 at 04:00; Stop 07/18/17 at 03:59; Status DC Albuterol/ Ipratropium (Duoneb Neb) 1 ampule Q2HR NEB PRN INH WHEEZING Last administered on 07/21/17 02:00; Start 07/14/17 at 03:30 Heparin Sodium (Porcine) (Heparin Inj) 5,000 units Q8H SQ Last administered on 08/02/17 06:18; Start 07/14/17 at 06:00 Miscellaneous Information 1 Q361D XX ; Start 07/14/17 at 03:30 Chlorhexidine Gluconate (Chlorhexidine 2% Cloth) 3 pack Taper DAILY@04 TOP Last administered on 07/21/17 01:37; Start 07/14/17 at 04:00; Stop 07/10/18 at 03:59 Chlorhexidine Gluconate (Chlorhexidine 2% Cloth) 3 pack UNSCH PRN TOP HYGIENIC CARE; Start 07/14/17 at 03:30 Senna/Docusate Sodium ([place]-Colace) 1 tab BID PO Last administered on 08:33; Start 07/14/17 at 09:00 Magnesium Hydroxide (Milk Of Magnesia Liq) 30 ml Q12H PRN PO MILD - MODERATE CONSTIPATION; Start 07/14/17 at 03:30 Sennosides (Senokot) 17.2 mg Q12H PRN PO MODERATE - SEVERE CONSTIPATION; Start 07/14/17 at 03:30 Bisacodyl (Dulcolax Supp) 10 mg DAILY PRN RECTAL SEVERE CONSITIPATION; Start at 03:30 Lactulose (Lactulose Liq) 30 ml DAILY PRN PO SEVERE CONSITIPATION; Start at 03:30; Stop 07/27/17 at 17:16; Status DC Pharmacy Profile Note 0 ml @ 0 mls/hr UNSCH OTHER ; Start 07/14/17 at 03:30 Vancomycin HCl 1000 mg/Sodium Chloride 250 ml @ 250 mls/hr ONCE ONCE IV ; Start 07/14/17 at 03:30; Stop 07/14/17 at 04:29; Status UNV Hydromorphone HCl (Dilaudid Pf Inj) 0.5 mg Q4H PRN IV PAIN 1-10 Last administered on 07/16/17 10:32; Start 07/14/17 at 04:00; Stop 07/16/17 at 12:44 ; Status DC Fentanyl Citrate 250 ml @ 5 mls/hr Q24H PRN IV SEDATION Last administered on 04:29; Start 07/14/17 at 03:56; Stop 07/16/17 at 12:44; Status DC Hydralazine HCl (Apresoline Inj) 20 mg Q4H PRN IV PUSH SBP>160, DBP>90 Last administered on 07/29/17 23:50; Start 07/14/17 at 04:00 Pharmacy Profile Note 0 ml @ 0 mls/hr UNSCH OTHER ; Start 07/14/17 at 05:30; Stop 07/14/17 at 05:30; Status DC Vancomycin HCl 1000 mg/Sodium Chloride 250 ml @ 250 mls/hr ONCE ONCE IV ; Start 07/14/17 at 05:30; Stop 07/14/17 at 06:29; Status UNV Dextrose (D50w (Vial) Inj) 50 ml UNSCH PRN IV HYPOGLYCEMIA-SEE COMMENTS; Start 07/14/17 at 05:30; Stop 07/14/17 at 10:45; Status DC Glucagon (Glucagon Inj) 1 mg UNSCH PRN OTHER HYPOGLYCEMIA-SEE COMMENTS; Start 07/14/17 at 05:30; Stop 07/14/17 at 10:45; Status DC Insulin Aspart (NovoLOG SUPPLEMENTAL SCALE) 1 ACHS SLIDING SCALE SQ Last administered on 07/14/17 06:42; Start 07/14/17 at 07:00; Stop 07/14/17 at 10:10 ; Status DC Vancomycin HCl 1500 mg/Sodium Chloride 515 ml @ 250 mls/hr Q12H IV Last administered on 07/16/17 06:01; Start 07/14/17 at 14:00; Stop 07/16/17 at 08:58 ; Status DC Miscellaneous Information SPECIFIC LAB TO BE DRAWN:VANCOMYCIN TROUGH DATE TO... ONCE ONCE .XX ; Start 07/16/17 at 01:45; Stop 07/16/17 at 01:46; Status DC Sodium Chloride 1,000 ml @ 84 mls/hr [id number] IV Last administered on 00:19; Start 07/14/17 at 11:00; Stop 07/16/17 at 12:44; Status DC Dextrose (D50w (Vial) Inj) 50 ml UNSCH PRN IV HYPOGLYCEMIA-SEE COMMENTS; Start 07/14/17 at 10:15; Stop 07/17/17 at 09:56; Status DC Glucagon (Glucagon Inj) 1 mg UNSCH PRN OTHER HYPOGLYCEMIA-SEE COMMENTS; Start 07/14/17 at 10:15; Stop 07/17/17 at 09:56; Status DC Insulin Human Regular (NovoLIN R SUPPLEMENTAL SCALE) 1 Q4H SQ Last administered on 07/15/17 06:48; Start 07/14/17 at 11:00; Stop 07/16/17 at 17:20 ; Status DC Potassium Chloride 100 ml @ 50 mls/hr Q2H PRN IV For Potassium 2.8 - 3.2 mEq/ L Last administered on 07/18/17 16:54; Start 07/14/17 at 10:15; Stop 07/23/17 at 13:47; Status DC Potassium Chloride 100 ml @ 50 mls/hr Q2H PRN IV For Potassium 2.8 - 3.2 mEq/L ; Start 07/14/17 at 10:15; Stop 07/23/17 at 13:47; Status DC Potassium Bicarb/ Potassium Chloride (K-Lyte Cl Eff) 50 meq UNSCH PRN PO For Potassium 3.3 - 3.5 mEq/L; Start 07/14/17 at 10:15; Stop 07/23/17 at 13:47; Status DC Potassium Chloride 100 ml @ 25 mls/hr UNSCH PRN IV For Potassium 3.3 - 3.5 mEq /L Last administered on 07/20/17 17:13; Start 07/14/17 at 10:15; Stop 07/23/17 at 13:47; Status DC Potassium Chloride 100 ml @ 50 mls/hr Q2H PRN IV For Potassium 3.3 - 3.5 mEq/L ; Start 07/14/17 at 10:15; Stop 07/23/17 at 13:47; Status DC Magnesium Sulfate 4 gm/Sodium Chloride 100 ml @ 50 mls/hr UNSCH PRN IV For Magnesium 0.9 - 1.1 mg/dL; Start 07/14/17 at 10:15; Stop 07/23/17 at 13:47; Status DC Magnesium Oxide (Mag-Ox) 800 mg UNSCH PRN PO For Magnesium 1.2 - 1.6 mg/dL; Start 07/14/17 at 10:15; Stop 07/23/17 at 13:47; Status DC Magnesium Sulfate 2 gm/Sodium Chloride 100 ml @ 50 mls/hr UNSCH PRN IV For Magnesium 1.2 - 1.6 mg/dL; Start 07/14/17 at 10:15; Stop 07/23/17 at 13:47; Status DC Potassium Phosphate (K-Phos) 2,000 mg Q4H PRN PO For Phosphorus < 2.5 mg/dL; Start 07/14/17 at 10:15; Stop 07/23/17 at 13:47; Status DC Sodium Phosphate 30 mmol/Sodium Chloride 250 ml @ 42 mls/hr UNSCH PRN IV For Phosphorus < 2.5 mg/dL; Start 07/14/17 at 10:15; Stop 07/23/17 at 13:47; Status DC Potassium Phosphate (K-Phos) 2,000 mg UNSCH PRN PO/TUBE SEE LABEL COMMENTS; Start 07/14/17 at 10:15; Stop 07/23/17 at 13:47; Status DC Potassium Phosphate 30 mmol/ Sodium Chloride 260 ml @ 42 mls/hr UNSCH PRN IV SEE LABEL COMMENTS; Start 07/14/17 at 10:15; Stop 07/23/17 at 13:47; Status DC Cyclobenzaprine HCl (Flexeril) 10 mg Q8H PRN PO muscle spasms Last administered on 08/01/17 12:38; Start 07/15/17 at 06:15 Famotidine (Pepcid Liq) 20 mg BID NG Last administered on 07/24/17 20:09; Start 07/15/17 at 09:00; Stop 07/31/17 at 10:14; Status DC Hydromorphone HCl (Dilaudid Pf Inj) 0.5 mg ONCE ONCE IV Last administered on 15:00; Start 07/15/17 at 15:00; Stop 07/15/17 at 15:01; Status DC Hydromorphone HCl (Dilaudid Pf Inj) 0.5 mg NOW ONCE IV PUSH ; Start 07/15/17 at 15:15; Stop 07/15/17 at 15:16; Status DC Furosemide (Lasix Inj) 40 mg STK-MED ONCE .ROUTE Last administered on 07:12; Start 07/16/17 at 07:12; Stop 07/16/17 at 07:13; Status DC Diltiazem HCl (Cardizem Inj) 25 mg STK-MED ONCE .ROUTE Last administered on 07:21; Start 07/16/17 at 07:21; Stop 07/16/17 at 07:22; Status DC Magnesium Sulfate/ Dextrose 100 ml @ 100 mls/hr Q1H IV Last administered on 08:45; Start 07/16/17 at 07:45; Stop 07/16/17 at 09:44; Status DC Potassium Chloride 100 ml @ 50 mls/hr Q2H IV Last administered on 07/16/17 09 :45; Start 07/16/17 at 07:45; Stop 07/16/17 at 11:44; Status DC Vancomycin HCl 1500 mg/Sodium Chloride 515 ml @ 250 mls/hr Q18H IV Last administered on 07/29/17 16:53; Start 07/17/17 at 00:00; Stop 07/30/17 at 14:21 ; Status DC Miscellaneous Information SPECIFIC LAB TO BE DRAWN:VANCO TROUGH DATE... ONCE ONCE .XX Last administered on 07/18/17 11:45; Start 07/18/17 at 11:45; Stop 07/18 at 11:46; Status DC Potassium Chloride (KCl) 40 meq NOW ONCE PO Last administered on 07/16/17 10: 32; Start 07/16/17 at 11:00; Stop 07/16/17 at 11:01; Status DC Hydromorphone HCl (Dilaudid Pf Inj) 0.5 mg Q2H PRN IV PAIN 6-10 or not taking po Last administered on 07/19/17 07:32; Start 07/16/17 at 14:00; Stop 07/19/17 at 07:52; Status DC Oxycodone HCl (Roxicodone) 5 mg Q4H PRN PO pain 1-5 Last administered on 19:30; Start 07/16/17 at 14:00; Stop 07/24/17 at 12:37; Status DC Diltiazem HCl (Cardizem) 60 mg Q6H PO Last administered on 08/02/17 09:05; Start 07/17/17 at 10:00 Dextrose (D50w (Vial) Inj) 50 ml UNSCH PRN IV HYPOGLYCEMIA-SEE COMMENTS; Start 07/17/17 at 09:00 Glucagon (Glucagon Inj) 1 mg UNSCH PRN OTHER HYPOGLYCEMIA-SEE COMMENTS; Start 07/17/17 at 09:00 Insulin Human Regular (NovoLIN R SUPPLEMENTAL SCALE) 1 Q6H SQ ; Start 07/17/17 at 10:00 Aztreonam 2000 mg/ Sodium Chloride 100 ml @ 200 mls/hr Q8H IV ; Start 07/17/17 at 10:00; Stop 07/17/17 at 10:02; Status DC Vancomycin HCl (VANCOMYCIN for oral use only) 125 mg QID PO Last administered on 07/28/17 10:05; Start 07/17/17 at 13:00; Stop 07/28/17 at 15:39; Status DC Hydromorphone HCl (Dilaudid Pf Inj) 0.5 mg ONCE ONCE IV PUSH Last administered on 07/17/17 14:40; Start 07/17/17 at 14:30; Stop 07/17/17 at 14:33; Status DC Hydralazine HCl (Apresoline) 50 mg Q8HR PO Last administered on 07/28/17 04:22 ; Start 07/18/17 at 09:30; Stop 07/28/17 at 14:43; Status DC Hydromorphone HCl (Dilaudid Pf Inj) 1 mg Q2H PRN IV PAIN 6-10 or not taking po Last administered on 07/24/17 15:43; Start 07/19/17 at 09:00; Stop 07/24/17 at 19: 32; Status DC Bumetanide (Bumex Inj) 1 mg ONCE ONCE IV PUSH Last administered on 07/20/17 08 :37; Start 07/20/17 at 08:00; Stop 07/20/17 at 08:01; Status DC Potassium Bicarb/ Potassium Chloride (K-Lyte Cl Eff) 50 meq ONCE ONCE PO Last administered on 07/21/17 09:35; Start 07/21/17 at 09:00; Stop 07/21/17 at 09: 01; Status DC Potassium Chloride 100 ml @ 100 mls/hr Q1H IV Last administered on 07/21/17 20 :41; Start 07/21/17 at 09:00; Stop 07/21/17 at 11:59; Status DC Miscellaneous Information SPECIFIC LAB TO BE DRAWN:VANCOMYCIN TROUGH DATE TO... ONCE ONCE .XX Last administered on 07/22/17 05:53; Start 07/22/17 at 05:45; Stop 07/22/17 at 05:46; Status DC Heparin Sodium (Porcine) (Heparin Inj) 10,000 units STK-MED ONCE .ROUTE Last administered on 07/21/17 13:44; Start 07/21/17 at 13:44; Stop 07/21/17 at 13:45; Status DC Vancomycin HCl (Vancomycin Inj) 1,000 mg STK-MED ONCE .ROUTE Last administered on 07/21/17 14:43; Start 07/21/17 at 14:10; Stop 07/21/17 at 14:11; Status DC Iohexol (Omnipaque 350 Inj) 50 ml ONCE ONCE .XX ; Start 07/21/17 at 14:44; Stop 07/21/17 at 14:45; Status DC Fentanyl Citrate (fentaNYL INJ) 100 mcg STK-MED ONCE .ROUTE ; Start 07/21/17 at 15:57; Stop 07/21/17 at 15:58; Status DC Miscellaneous Information ALL NURSING DEPARTME... UNSCH PRN .XX SEE LABEL COMMENTS; Start 07/21/17 at 15:49; Stop 07/22/17 at 15:48; Status DC Miscellaneous Information ALL NURSING DEPARTME... UNSCH PRN .XX SEE LABEL COMMENTS; Start 07/21/17 at 15:49; Stop 07/22/17 at 15:48; Status Cancel Potassium Chloride (KCl) 40 meq ONCE ONCE PO Last administered on 07/23/17 18: 59; Start 07/23/17 at 18:45; Stop 07/23/17 at 18:53; Status DC Lisinopril (Prinivil) 10 mg DAILY PO Last administered on 07/24/17 09:02; Start 07/23/17 at 18:45; Stop 07/24/17 at 19:25; Status DC Miscellaneous Information SPECIFIC LAB TO BE KARLA... ONCE ONCE .XX Last administered on 07/25/17 05:45; Start 07/25/17 at 05:45; Stop 07/25/17 at 05:46; Status DC Bupivacaine HCl (Marcaine Pf 0.5% Inj) 30 ml STK-MED ONCE .ROUTE ; Start at 09:24; Stop 07/24/17 at 09:25; Status DC Lidocaine HCl (Xylocaine 1% Inj (50 ml)) 50 ml STK-MED ONCE .ROUTE ; Start at 09:24; Stop 07/24/17 at 09:25; Status DC Sodium Chloride (NS Flush) 2 ml UNSCH PRN IV FLUSH FLUSH AFTER USING IV ACCESS Last administered on 07/28/17 06:25; Start 07/24/17 at 11:00 Sodium Chloride (NS Flush) 2 ml BID IV FLUSH Last administered on 08/02/17 09: 05; Start 07/24/17 at 21:00 Miscellaneous Information (Post-op Orders (for Pharmacy)) STAT ONCE XX ; Start 07/24/17 at 11:00; Stop 07/24/17 at 12:36; Status DC Hydromorphone HCl (Dilaudid Pf Inj) 1 mg Q3H PRN IV BREAKTHROUGH PAIN Last administered on 08/02/17 09:04; Start 07/24/17 at 11:00 Hydromorphone HCl (Dilaudid) 1 mg Q4H PRN PO PAIN SCALE 3 TO 5; Start 07/24/17 at 11:00; Stop 07/24/17 at 19:32; Status DC Hydromorphone HCl (Dilaudid) 2 mg Q4H PRN PO PAIN SCALE 6 TO 10 Last administered on 07/24/17 17:48; Start 07/24/17 at 11:00; Stop 07/24/17 at 19:32; Status DC Naloxone HCl (Narcan Inj) 0.4 mg UNSCH PRN IV SEE LABEL COMMENTS; Start at 11:00 Hydromorphone HCl (*DILAUDID PF INJ PERIprocedural ONLY) 1 mg STK-MED ONCE .ROUTE Last administered on 07/24/17 11:26; Start 07/24/17 at 11:26; Stop at 11:27; Status DC Miscellaneous Information ALL NURSING DEPARTME... UNSCH PRN .XX SEE LABEL COMMENTS; Start 07/24/17 at 10:55; Stop 07/25/17 at 10:54; Status DC Vancomycin HCl (Vancomycin Inj) 500 mg STK-MED ONCE .ROUTE Last administered on 07/24/17 13:59; Start 07/24/17 at 11:54; Stop 07/24/17 at 11:55; Status DC Vancomycin HCl (Vancomycin Inj) 1,000 mg STK-MED ONCE .ROUTE ; Start 07/24/17 at 11:55; Stop 07/24/17 at 11:56; Status DC Hydromorphone HCl (*DILAUDID PF INJ PERIprocedural ONLY) 1 mg STK-MED ONCE .ROUTE Last administered on 07/24/17 13:20; Start 07/24/17 at 13:20; Stop at 13:21; Status DC Lisinopril (Prinivil) 20 mg DAILY PO Last administered on 07/25/17 08:46; Start 07/25/17 at 09:00; Stop 07/25/17 at 14:49; Status DC Oxycodone HCl (Roxicodone) 10 mg Q4H PRN PO pain 6-10 Last administered on 08/02 06:18; Start 07/24/17 at 19:30 Oxycodone HCl (Roxicodone) 5 mg Q4H PRN PO pain 3-5; Start 07/24/17 at 19:30 Lisinopril (Prinivil) 20 mg BID PO Last administered on 07/26/17 08:50; Start 07/25/17 at 21:00; Stop 07/26/17 at 17:04; Status DC Lisinopril (Prinivil) 40 mg DAILY PO Last administered on 08/02/17 09:04; Start 07/27/17 at 09:00 Lisinopril (Prinivil) 20 mg ONCE ONCE PO Last administered on 07/26/17 17:00 ; Start 07/26/17 at 17:00; Stop 07/26/17 at 18:00; Status DC Hydralazine HCl (Apresoline) 50 mg Q6HR PO Last administered on 08/02/17 06:18 ; Start 07/28/17 at 18:00 Miscellaneous Information SPECIFIC LAB TO BE DRAWN:VANCOMYCIN TROUGH DATE TO... ONCE ONCE .XX Last administered on 07/30/17 12:30; Start 07/30/17 at 11:45; Stop 07/30/17 at 11:46; Status DC Acetaminophen (Tylenol) 650 mg Q6H PRN PO fever; Start 07/29/17 at 18:15 Clonidine (Catapres) 0.1 mg Q12HR PO Last administered on 08/01/17 20:42; Start 07/30/17 at 12:00 Vancomycin HCl 1250 mg/Sodium Chloride 262.5 ml @ 250 mls/hr Q18H IV Last administered on 08/02/17t 00:56; Start 07/31/17 at 12:00 Miscellaneous Information SPECIFIC LAB TO BE ... 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 Aortogram with left lower extremity angiograms 2. Left SFA and popliteal artery angioplasty to 5 mm. 3. Right common femoral AngioSeal. s/p Amputation left hallux with metatarsal and medial cuneiform left foot continue with antibiotics per ID- f/u with podiatry and vascular surgery as outpatient. wound vac per podiatry and ID. Dementia; continue Aricept hypertension; continue lisinopril, hydralazine and cardizem- continue to monitor and adjust the regimen as needed. Hypokalemia; replaced DVT prophylaxis with subq Heparin. Alison Ceja MD Aug 02, 2017 11:38
[2017-08-02] MEDS: CYCLOBENZAPRINE HCL 10 MG TAB PO PRN (11:46)
[2017-08-02] MEDS: GABAPENTIN 100 MG CAP PO SCH ×2 (11:51→17:22)
[2017-08-02] MEDS ORDERED: PHARMACY ORDERED LAB ONE (17:45)
[2017-08-02] MEDS: LATANOPROST 0.005% OPHT SOLN 2.5 ML BTL EACH EYE SCH (20:58)
[2017-08-02] MEDS: ATORVASTATIN 40 MG TAB PO SCH (20:59)
[2017-08-02] MEDS: DONEPEZIL HCL 5 MG TAB PO SCH (21:00)
[2017-08-03] VITALS (7 sets, daily range): BP systolic 132–165; BP diastolic 60–70; PULSE 54–70; RESP 18–22; TEMP 98–99.5; O2SAT 94–98
[2017-08-03] MEDS: hydrALAZINE HCL 50 MG TAB PO SCH ×5 (00:37→23:59)
[2017-08-03] MEDS: INSULIN NovoLIN REGULAR SUPPLEMENTAL SCALE SQ SCH ×4 (04:00→22:00)
[2017-08-03] MEDS: CHLORHEXIDINE GLUCONATE 2 % 1 PACK (2 CLOTHS) TOP SCH (04:00)
[2017-08-03] MEDS: DILTIAZEM HCL 60 MG TAB PO SCH ×4 (04:58→22:23)
[2017-08-03] MEDS: HEPARIN SODIUM - SQ 10,000 UNITS/ML VIAL SQ SCH ×3 (04:59→22:25)
[2017-08-03 08:47] LABS: AUTOMATED NEUTROPHIL # 7.1 TH/MM3 (1.8-7.7); BASOPHIL # 0.1 TH/MM3 (0-0.2); BASOPHIL % 0.8 % (0.0-2.0); EOSINOPHIL # 0.1 TH/MM3 (0-0.4); EOSINOPHIL % 1.3 % (0.0-4.0); HEMATOCRIT 22.8 % (39.0-51.0); HEMO FLAGS DIFF FINAL; LYMPHOCYTE # 1.3 TH/MM3 (1.0-4.8); MEAN CELL VOLUME 81.6 FL (80.0-100.0); MEAN CORPUSCULAR HEMOGLOBIN 27.1 PG (27.0-34.0); MEAN CORPUSCULAR HGB CONC 33.3 % (32.0-36.0); MONO % 12.4 % (0.0-8.0); NEUT % 72.5 % (16.0-70.0); PLATELET COUNT 400 TH/MM3 (150-450); RED BLOOD COUNT 2.79 MIL/MM3 (4.50-5.90); RED CELL DISTRIBUTION WIDTH 17.6 % (11.6-17.2); WHITE BLOOD COUNT 9.8 TH/MM3 (4.0-11.0)
[2017-08-03] MEDS: DOCUSATE SODIUM 50 MG/SENNA 8.6 MG TAB PO SCH ×2 (09:00→21:00)
[2017-08-03] MEDS: LACTOBACILLUS ACIDOPHILUS TAB PO SCH ×3 (09:42→18:10)
[2017-08-03] MEDS: FAMOTIDINE 20 MG TAB NG SCH ×2 (09:42→22:22)
[2017-08-03] MEDS: GABAPENTIN 100 MG CAP PO SCH ×3 (09:42→18:10)
[2017-08-03] MEDS: LISINOPRIL 20 MG TAB PO SCH (09:43)
[2017-08-03] MEDS: cloNIDine HCL 0.1 MG TAB PO SCH ×2 (09:44→22:24)
[2017-08-03] MEDS: CITALOPRAM HYDROBROMIDE 20 MG TAB PO SCH (09:44)
[2017-08-03] MEDS: FERROUS SULFATE 325 MG (65 MG ELEMENTAL IRON) TAB PO SCH ×2 (09:44→18:11)
[2017-08-03] MEDS: MULTIVITAMINS/MINERALS THERAPEUTIC TAB PO SCH (09:44)
[2017-08-03] MEDS: ASCORBIC ACID 500 MG TAB PO SCH (09:44)
[2017-08-03] MEDS: BUDESONIDE-FORMOTEROL 80/4.5 MCG INHALER INH SCH ×2 (09:57→21:00)
[2017-08-03] MEDS: ARTIFICIAL TEARS OPTH SOLN 15 ML BTL EACH EYE SCH ×3 (09:57→18:18)
[2017-08-03] MEDS: SODIUM CHLORIDE 0.9% FLUSH 10 ML FLUSH IV FLUSH SCH ×2 (09:57→22:25)
[2017-08-03 10:04] LABS: ALKALINE PHOSPHATASE 111 U/L (45-117); ALT (GPT) 22 U/L (12-78); ANION GAP 7 MEQ/L (5-15); AST (GOT) 22 U/L (15-37); BLOOD UREA NITROGEN 18 MG/DL (7-18); CHLORIDE 102 MEQ/L (98-107); GLOMERULAR FILTRATION RATE 71 ML/MIN (>89); SODIUM (NA) 137 MEQ/L (136-145); TOTAL BILIRUBIN ADULT 0.2 MG/DL (0.2-1.0)
[2017-08-03 10:15] LABS: POTASSIUM 2.8 MEQ/L (3.5-5.1)
[2017-08-03] MEDS ORDERED: PHARMACY ORDERED LAB ONE ×2 (10:45→11:45)
--- NOTE | 2017-08-03 11:02 | HHI.PR ---
Subjective Remarks resting comfortably with no distress. pain to the shoulders is better. had a low grade fever last night. no new complaints. d/w the RN. Objective Vitals Vital Signs Date Time Temp Pulse Resp B/P (MAP) Pulse Ox O2 Delivery O2 Flow Rate FiO2 08/03/17 08:00 98.7 54 20 141/63 (89) 98 08/03/17 04:00 98.1 66 18 159/70 (99) 95 08/03/17 00:00 Room Air 08/03/17 00:00 98.0 54 22 132/60 (84) 94 08/02/17 20:00 100.4 66 20 163/72 (102) 95 08/02/17 20:00 65 08/02/17 20:00 Room Air 08/02/17 19:06 08/02/17 16:00 97.0 63 18 128/58 (81) 97 08/02/17 15:00 08/02/17 14:33 08/02/17 12:00 97.7 60 18 145/63 (90) 96 I/O 08/02/17 08/02/17 08/02/17 08/03/17 08/03/17 08/03/17 07:00 15:00 23:00 07:00 15:00 23:00 Intake Total 460 ml 730 ml 175 ml Output Total 850 ml 700 ml 750 ml Balance -390 ml 30 ml -575 ml Intake Oral 460 ml 480 ml 175 ml IV Total 250 ml Output Urine Total 850 ml 700 ml 750 ml # Bowel Movements 0 1 Result Diagram: 08/03/17 0811 08/03/17 0811 Imaging Last Impressions Foot X-Ray 07/24/17 0000 Signed Impressions: Service Date/Time: Monday, July 24, 2017 11:21 - CONCLUSION: Postop amputation. K. Leroy Willis MD Chest X-Ray 07/21/17 0000 Signed Impressions: Service Date/Time: Friday, July 21, 2017 07:49 - CONCLUSION: 1. Left lower lobe atelectasis versus pneumonia. There has been no significant change when compared to the prior exam. Yo Mcbride MD Lower Extremity Ultrasound 07/18/17 0000 Signed Impressions: Service Date/Time: Tuesday, July 18, 2017 10:04 - CONCLUSION: Normal examination. Bautista Hoff MD Head CT 07/14/17 0043 Signed Impressions: Service Date/Time: Friday, July 14, 2017 02:09 - CONCLUSION: No acute intracranial abnormality is identified. Jose Miller MD Ankle X-Ray 07/14/17 0000 Signed Impressions: Service Date/Time: Friday, July 14, 2017 01:48 - CONCLUSION: No acute left ankle abnormality is identified. Jose Miller MD Objective Remarks GENERAL: This is a well-nourished, well-developed patient, in no apparent distress. CARDIOVASCULAR: Regular rate and regular rhythm without murmurs, gallops, or rubs. RESPIRATORY: Clear to auscultation. Breath sounds equal bilaterally. No wheezes , rales, or rhonchi. GASTROINTESTINAL: Abdomen soft, non-tender, nondistended. Normal, active bowel sounds MUSCULOSKELETAL: left foot covered with clean dressing. NEURO: Alert & Oriented x4 to person, place, time, situation. Moves all ext x4 Procedures s/p 1. Aortogram with left lower extremity angiograms 2. Left SFA and popliteal artery angioplasty to 5 mm. 3. Right common femoral AngioSeal. s/p Amputation left hallux with metatarsal and medial cuneiform left foot Medications and IVs Current Medications Etomidate (Amidate Inj) 40 mg STK-MED ONCE .ROUTE ; Start 07/14/17 at 00:32; Stop 07/14/17 at 00:33; Status DC Propofol 100 ml @ As Directed STK-MED ONCE .ROUTE ; Start 07/14/17 at 00:35; Stop 07/14/17 at 00:36; Status DC IV Flush (NS Flush) 2 ml UNSCH PRN IV FLUSH FLUSH AFTER USING IV ACCESS; Start 07/14/17 at 00:45; Stop 07/14/17 at 03:47; Status DC Vancomycin HCl 1450 mg/Sodium Chloride 514.5 ml @ 250 mls/hr ONCE ONCE IV Last administered on 07/14/17 02:36; Start 07/14/17 at 01:30; Stop 07/14/17 at 03:33; Status DC Aztreonam 2000 mg/ Sodium Chloride 100 ml @ 200 mls/hr ONCE ONCE IV Last administered on 07/14/17 02:08; Start 07/14/17 at 01:30; Stop 07/14/17 at 01:59 ; Status DC Racepinephrine (Racepinephrine 2.25% Neb) 0.5 ml ONCE ONCE NEB Last administered on 07/14/17 01:36; Start 07/14/17 at 01:30; Stop 07/14/17 at 01:31 ; Status DC Methylprednisolone Sodium Succinate (SoluMEDROL INJ) 60 mg ONCE ONCE IVP Last administered on 07/14/17 01:44; Start 07/14/17 at 01:30; Stop 07/14/17 at 01:31 ; Status DC Albuterol/ Ipratropium (Duoneb Neb) 1 ampule Q15M INH Last administered on 07/14 01:48; Start 07/14/17 at 01:30; Stop 07/14/17 at 02:01; Status DC Etomidate (Amidate Inj) 30 mg ONCE ONCE IV PUSH Last administered on 02:09; Start 07/14/17 at 02:00; Stop 07/14/17 at 02:02; Status DC Rocuronium [place] (Zemuron Inj) 60 mg BOLUS ONCE IV Last administered on 07/14 02:08; Start 07/14/17 at 02:00; Stop 07/14/17 at 02:02; Status DC Propofol 100 ml @ 2.85 mls/hr Q35H6M PRN IV Ordered RASS Last administered on 01:37; Start 07/14/17 at 02:02; Stop 07/16/17 at 12:44; Status DC Midazolam HCl (Versed Inj) 5 mg STK-MED ONCE .ROUTE ; Start 07/14/17 at 02:30; Stop 07/14/17 at 02:31; Status DC Sodium Chloride 1,000 ml @ 999 mls/hr BOLUS ONCE IV Last administered on 07/14 03:32; Start 07/14/17 at 03:00; Stop 07/14/17 at 04:00; Status DC Midazolam HCl (Versed Inj) 5 mg ONCE ONCE IV PUSH Last administered on 03:06; Start 07/14/17 at 03:15; Stop 07/14/17 at 03:16; Status DC Midazolam HCl 100 ml @ 2 mls/hr Q50H PRN IV SEDATION Last administered on 03:39; Start 07/14/17 at 03:01; Stop 07/15/17 at 06:31; Status DC Midazolam HCl 100 ml @ As Directed STK-MED ONCE .ROUTE ; Start 07/14/17 at 03: 17; Stop 07/14/17 at 03:18; Status DC Aspirin (Aspirin Chew) 81 mg DAILY CHEW Last administered on 07/20/17 08:37; Start 07/14/17 at 09:00; Status Future Hold Atorvastatin Calcium (Lipitor) 40 mg HS PO Last administered on 08/02/17 20:59 ; Start 07/14/17 at 21:00 Citalopram Hydrobromide (CeleXA) 60 mg DAILY PO Last administered on 08/03/17 09:44; Start 07/14/17 at 09:00 Cyclobenzaprine HCl (Flexeril) 10 mg Q8HR PO Last administered on 07/15/17 04: 21; Start 07/14/17 at 06:00; Stop 07/15/17 at 06:31; Status DC Donepezil HCl (Aricept) 10 mg HS PO Last administered on 08/02/17 21:00; Start 07/14/17 at 21:00 Gabapentin (Neurontin) 100 mg TID PO ; Start 07/14/17 at 09:00; Stop 07/15/17 at 06:31; Status DC Lactobacillus Acidophilus (Lactinex) 1 tab TIDAC PO Last administered on 09:42; Start 07/14/17 at 08:00 Ascorbic Acid (Vitamin C) 1,000 mg DAILY PO Last administered on 08/03/17 09: 44; Start 07/14/17 at 09:00 Ferrous Sulfate (Ferrous Sulfate) 325 mg BIDPC PO Last administered on 09:44; Start 07/14/17 at 09:00 Budesonide/ Formoterol Fumarate (Symbicort 80-4.5 Mcg Inh) 1 puff BID INH Last administered on 08/03/17 09:57; Start 07/14/17 at 09:00 Multivitamins/ Minerals Therapeutic (Theragran M Tab) 1 tab DAILY PO Last administered on 08/03/17 09:44; Start 07/14/17 at 09:00 Latanoprost (Xalatan 0.005% Opth Soln) 1 drop HS EACH EYE Last administered on 08/02/17 20:58; Start 07/14/17 at 21:00 Sodium Chloride (NS Flush) 2 ml UNSCH PRN .XX FLUSH AFTER USING IV ACCESS; Start 07/14/17 at 03:30; Stop 07/24/17 at 12:35; Status DC Sodium Chloride (NS Flush) 2 ml BID .XX Last administered on 07/23/17 21:20; Start 07/14/17 at 09:00; Stop 07/24/17 at 12:35; Status DC Acetaminophen (Tylenol) 650 mg Q6H PRN PO FEVER >101F; Start 07/14/17 at 03:30 ; Stop 07/14/17 at 03:47; Status DC Morphine Sulfate (Morphine Inj) 2 mg Q2H PRN IV PAIN SCALE 6 TO 10; Start 07/14 at 03:30; Stop 07/14/17 at 03:47; Status DC Famotidine (Pepcid Inj) 20 mg Q12HR IV PUSH Last administered on 07/14/17 20: 45; Start 07/14/17 at 09:00; Stop 07/15/17 at 06:31; Status DC Midazolam HCl (Versed Inj) 2 mg Q1H PRN IV SEDATION; Start 07/14/17 at 03:30; Stop 07/15/17 at 06:31; Status DC Artificial Tears (Tears Naturale Opth Soln) 1 drop TID EACH EYE Last administered on 08/03/17 09:57; Start 07/14/17 at 09:00 Ondansetron HCl (Zofran Inj) 4 mg Q6H PRN IV NAUSEA OR VOMITING; Start at 03:30 Albuterol/ Ipratropium (Duoneb Neb) 1 ampule Q6HR NEB INH Last administered on 07/17/17 07:39; Start 07/14/17 at 04:00; Stop 07/18/17 at 03:59; Status DC Albuterol/ Ipratropium (Duoneb Neb) 1 ampule Q2HR NEB PRN INH WHEEZING Last administered on 07/21/17 02:00; Start 07/14/17 at 03:30 Heparin Sodium (Porcine) (Heparin Inj) 5,000 units Q8H SQ Last administered on 08/03/17 04:59; Start 07/14/17 at 06:00 Miscellaneous Information 1 Q361D XX ; Start 07/14/17 at 03:30 Chlorhexidine Gluconate (Chlorhexidine 2% Cloth) 3 pack Taper DAILY@04 TOP Last administered on 07/21/17 01:37; Start 07/14/17 at 04:00; Stop 07/10/18 at 03:59 Chlorhexidine Gluconate (Chlorhexidine 2% Cloth) 3 pack UNSCH PRN TOP HYGIENIC CARE; Start 07/14/17 at 03:30 Senna/Docusate Sodium ([place]-Colace) 1 tab BID PO Last administered on 08:33; Start 07/14/17 at 09:00 Magnesium Hydroxide (Milk Of Magnesia Liq) 30 ml Q12H PRN PO MILD - MODERATE CONSTIPATION; Start 07/14/17 at 03:30 Sennosides (Senokot) 17.2 mg Q12H PRN PO MODERATE - SEVERE CONSTIPATION; Start 07/14/17 at 03:30 Bisacodyl (Dulcolax Supp) 10 mg DAILY PRN RECTAL SEVERE CONSITIPATION; Start at 03:30 Lactulose (Lactulose Liq) 30 ml DAILY PRN PO SEVERE CONSITIPATION; Start at 03:30; Stop 07/27/17 at 17:16; Status DC Pharmacy Profile Note 0 ml @ 0 mls/hr UNSCH OTHER ; Start 07/14/17 at 03:30 Vancomycin HCl 1000 mg/Sodium Chloride 250 ml @ 250 mls/hr ONCE ONCE IV ; Start 07/14/17 at 03:30; Stop 07/14/17 at 04:29; Status UNV Hydromorphone HCl (Dilaudid Pf Inj) 0.5 mg Q4H PRN IV PAIN 1-10 Last administered on 07/16/17 10:32; Start 07/14/17 at 04:00; Stop 07/16/17 at 12:44 ; Status DC Fentanyl Citrate 250 ml @ 5 mls/hr Q24H PRN IV SEDATION Last administered on 04:29; Start 07/14/17 at 03:56; Stop 07/16/17 at 12:44; Status DC Hydralazine HCl (Apresoline Inj) 20 mg Q4H PRN IV PUSH SBP>160, DBP>90 Last administered on 07/29/17 23:50; Start 07/14/17 at 04:00 Pharmacy Profile Note 0 ml @ 0 mls/hr UNSCH OTHER ; Start 07/14/17 at 05:30; Stop 07/14/17 at 05:30; Status DC Vancomycin HCl 1000 mg/Sodium Chloride 250 ml @ 250 mls/hr ONCE ONCE IV ; Start 07/14/17 at 05:30; Stop 07/14/17 at 06:29; Status UNV Dextrose (D50w (Vial) Inj) 50 ml UNSCH PRN IV HYPOGLYCEMIA-SEE COMMENTS; Start 07/14/17 at 05:30; Stop 07/14/17 at 10:45; Status DC Glucagon (Glucagon Inj) 1 mg UNSCH PRN OTHER HYPOGLYCEMIA-SEE COMMENTS; Start 07/14/17 at 05:30; Stop 07/14/17 at 10:45; Status DC Insulin Aspart (NovoLOG SUPPLEMENTAL SCALE) 1 ACHS SLIDING SCALE SQ Last administered on 07/14/17 06:42; Start 07/14/17 at 07:00; Stop 07/14/17 at 10:10 ; Status DC Vancomycin HCl 1500 mg/Sodium Chloride 515 ml @ 250 mls/hr Q12H IV Last administered on 07/16/17 06:01; Start 07/14/17 at 14:00; Stop 07/16/17 at 08:58 ; Status DC Miscellaneous Information SPECIFIC LAB TO BE DRAWN:VANCOMYCIN TROUGH DATE TO... ONCE ONCE .XX ; Start 07/16/17 at 01:45; Stop 07/16/17 at 01:46; Status DC Sodium Chloride 1,000 ml @ 84 mls/hr [id number] IV Last administered on 00:19; Start 07/14/17 at 11:00; Stop 07/16/17 at 12:44; Status DC Dextrose (D50w (Vial) Inj) 50 ml UNSCH PRN IV HYPOGLYCEMIA-SEE COMMENTS; Start 07/14/17 at 10:15; Stop 07/17/17 at 09:56; Status DC Glucagon (Glucagon Inj) 1 mg UNSCH PRN OTHER HYPOGLYCEMIA-SEE COMMENTS; Start 07/14/17 at 10:15; Stop 07/17/17 at 09:56; Status DC Insulin Human Regular (NovoLIN R SUPPLEMENTAL SCALE) 1 Q4H SQ Last administered on 07/15/17 06:48; Start 07/14/17 at 11:00; Stop 07/16/17 at 17:20 ; Status DC Potassium Chloride 100 ml @ 50 mls/hr Q2H PRN IV For Potassium 2.8 - 3.2 mEq/ L Last administered on 07/18/17 16:54; Start 07/14/17 at 10:15; Stop 07/23/17 at 13:47; Status DC Potassium Chloride 100 ml @ 50 mls/hr Q2H PRN IV For Potassium 2.8 - 3.2 mEq/L ; Start 07/14/17 at 10:15; Stop 07/23/17 at 13:47; Status DC Potassium Bicarb/ Potassium Chloride (K-Lyte Cl Eff) 50 meq UNSCH PRN PO For Potassium 3.3 - 3.5 mEq/L; Start 07/14/17 at 10:15; Stop 07/23/17 at 13:47; Status DC Potassium Chloride 100 ml @ 25 mls/hr UNSCH PRN IV For Potassium 3.3 - 3.5 mEq /L Last administered on 07/20/17 17:13; Start 07/14/17 at 10:15; Stop 07/23/17 at 13:47; Status DC Potassium Chloride 100 ml @ 50 mls/hr Q2H PRN IV For Potassium 3.3 - 3.5 mEq/L ; Start 07/14/17 at 10:15; Stop 07/23/17 at 13:47; Status DC Magnesium Sulfate 4 gm/Sodium Chloride 100 ml @ 50 mls/hr UNSCH PRN IV For Magnesium 0.9 - 1.1 mg/dL; Start 07/14/17 at 10:15; Stop 07/23/17 at 13:47; Status DC Magnesium Oxide (Mag-Ox) 800 mg UNSCH PRN PO For Magnesium 1.2 - 1.6 mg/dL; Start 07/14/17 at 10:15; Stop 07/23/17 at 13:47; Status DC Magnesium Sulfate 2 gm/Sodium Chloride 100 ml @ 50 mls/hr UNSCH PRN IV For Magnesium 1.2 - 1.6 mg/dL; Start 07/14/17 at 10:15; Stop 07/23/17 at 13:47; Status DC Potassium Phosphate (K-Phos) 2,000 mg Q4H PRN PO For Phosphorus < 2.5 mg/dL; Start 07/14/17 at 10:15; Stop 07/23/17 at 13:47; Status DC Sodium Phosphate 30 mmol/Sodium Chloride 250 ml @ 42 mls/hr UNSCH PRN IV For Phosphorus < 2.5 mg/dL; Start 07/14/17 at 10:15; Stop 07/23/17 at 13:47; Status DC Potassium Phosphate (K-Phos) 2,000 mg UNSCH PRN PO/TUBE SEE LABEL COMMENTS; Start 07/14/17 at 10:15; Stop 07/23/17 at 13:47; Status DC Potassium Phosphate 30 mmol/ Sodium Chloride 260 ml @ 42 mls/hr UNSCH PRN IV SEE LABEL COMMENTS; Start 07/14/17 at 10:15; Stop 07/23/17 at 13:47; Status DC Cyclobenzaprine HCl (Flexeril) 10 mg Q8H PRN PO muscle spasms Last administered on 08/02/17 11:46; Start 07/15/17 at 06:15 Famotidine (Pepcid Liq) 20 mg BID NG Last administered on 07/24/17 20:09; Start 07/15/17 at 09:00; Stop 07/31/17 at 10:14; Status DC Hydromorphone HCl (Dilaudid Pf Inj) 0.5 mg ONCE ONCE IV Last administered on 15:00; Start 07/15/17 at 15:00; Stop 07/15/17 at 15:01; Status DC Hydromorphone HCl (Dilaudid Pf Inj) 0.5 mg NOW ONCE IV PUSH ; Start 07/15/17 at 15:15; Stop 07/15/17 at 15:16; Status DC Furosemide (Lasix Inj) 40 mg STK-MED ONCE .ROUTE Last administered on 07:12; Start 07/16/17 at 07:12; Stop 07/16/17 at 07:13; Status DC Diltiazem HCl (Cardizem Inj) 25 mg STK-MED ONCE .ROUTE Last administered on 07:21; Start 07/16/17 at 07:21; Stop 07/16/17 at 07:22; Status DC Magnesium Sulfate/ Dextrose 100 ml @ 100 mls/hr Q1H IV Last administered on 08:45; Start 07/16/17 at 07:45; Stop 07/16/17 at 09:44; Status DC Potassium Chloride 100 ml @ 50 mls/hr Q2H IV Last administered on 07/16/17 09 :45; Start 07/16/17 at 07:45; Stop 07/16/17 at 11:44; Status DC Vancomycin HCl 1500 mg/Sodium Chloride 515 ml @ 250 mls/hr Q18H IV Last administered on 07/29/17 16:53; Start 07/17/17 at 00:00; Stop 07/30/17 at 14:21 ; Status DC Miscellaneous Information SPECIFIC LAB TO BE DRAWN:VANCO TROUGH DATE... ONCE ONCE .XX Last administered on 07/18/17 11:45; Start 07/18/17 at 11:45; Stop 07/18 at 11:46; Status DC Potassium Chloride (KCl) 40 meq NOW ONCE PO Last administered on 07/16/17 10: 32; Start 07/16/17 at 11:00; Stop 07/16/17 at 11:01; Status DC Hydromorphone HCl (Dilaudid Pf Inj) 0.5 mg Q2H PRN IV PAIN 6-10 or not taking po Last administered on 07/19/17 07:32; Start 07/16/17 at 14:00; Stop 07/19/17 at 07:52; Status DC Oxycodone HCl (Roxicodone) 5 mg Q4H PRN PO pain 1-5 Last administered on 19:30; Start 07/16/17 at 14:00; Stop 07/24/17 at 12:37; Status DC Diltiazem HCl (Cardizem) 60 mg Q6H PO Last administered on 08/03/17 04:58; Start 07/17/17 at 10:00 Dextrose (D50w (Vial) Inj) 50 ml UNSCH PRN IV HYPOGLYCEMIA-SEE COMMENTS; Start 07/17/17 at 09:00 Glucagon (Glucagon Inj) 1 mg UNSCH PRN OTHER HYPOGLYCEMIA-SEE COMMENTS; Start 07/17/17 at 09:00 Insulin Human Regular (NovoLIN R SUPPLEMENTAL SCALE) 1 Q6H SQ ; Start 07/17/17 at 10:00 Aztreonam 2000 mg/ Sodium Chloride 100 ml @ 200 mls/hr Q8H IV ; Start 07/17/17 at 10:00; Stop 07/17/17 at 10:02; Status DC Vancomycin HCl (VANCOMYCIN for oral use only) 125 mg QID PO Last administered on 07/28/17 10:05; Start 07/17/17 at 13:00; Stop 07/28/17 at 15:39; Status DC Hydromorphone HCl (Dilaudid Pf Inj) 0.5 mg ONCE ONCE IV PUSH Last administered on 07/17/17 14:40; Start 07/17/17 at 14:30; Stop 07/17/17 at 14:33; Status DC Hydralazine HCl (Apresoline) 50 mg Q8HR PO Last administered on 07/28/17 04:22 ; Start 07/18/17 at 09:30; Stop 07/28/17 at 14:43; Status DC Hydromorphone HCl (Dilaudid Pf Inj) 1 mg Q2H PRN IV PAIN 6-10 or not taking po Last administered on 07/24/17 15:43; Start 07/19/17 at 09:00; Stop 07/24/17 at 19: 32; Status DC Bumetanide (Bumex Inj) 1 mg ONCE ONCE IV PUSH Last administered on 07/20/17 08 :37; Start 07/20/17 at 08:00; Stop 07/20/17 at 08:01; Status DC Potassium Bicarb/ Potassium Chloride (K-Lyte Cl Eff) 50 meq ONCE ONCE PO Last administered on 07/21/17 09:35; Start 07/21/17 at 09:00; Stop 07/21/17 at 09: 01; Status DC Potassium Chloride 100 ml @ 100 mls/hr Q1H IV Last administered on 07/21/17 20 :41; Start 07/21/17 at 09:00; Stop 07/21/17 at 11:59; Status DC Miscellaneous Information SPECIFIC LAB TO BE DRAWN:VANCOMYCIN TROUGH DATE TO... ONCE ONCE .XX Last administered on 07/22/17 05:53; Start 07/22/17 at 05:45; Stop 07/22/17 at 05:46; Status DC Heparin Sodium (Porcine) (Heparin Inj) 10,000 units STK-MED ONCE .ROUTE Last administered on 07/21/17 13:44; Start 07/21/17 at 13:44; Stop 07/21/17 at 13:45; Status DC Vancomycin HCl (Vancomycin Inj) 1,000 mg STK-MED ONCE .ROUTE Last administered on 07/21/17 14:43; Start 07/21/17 at 14:10; Stop 07/21/17 at 14:11; Status DC Iohexol (Omnipaque 350 Inj) 50 ml ONCE ONCE .XX ; Start 07/21/17 at 14:44; Stop 07/21/17 at 14:45; Status DC Fentanyl Citrate (fentaNYL INJ) 100 mcg STK-MED ONCE .ROUTE ; Start 07/21/17 at 15:57; Stop 07/21/17 at 15:58; Status DC Miscellaneous Information ALL NURSING DEPARTME... UNSCH PRN .XX SEE LABEL COMMENTS; Start 07/21/17 at 15:49; Stop 07/22/17 at 15:48; Status DC Miscellaneous Information ALL NURSING DEPARTME... UNSCH PRN .XX SEE LABEL COMMENTS; Start 07/21/17 at 15:49; Stop 07/22/17 at 15:48; Status Cancel Potassium Chloride (KCl) 40 meq ONCE ONCE PO Last administered on 07/23/17 18: 59; Start 07/23/17 at 18:45; Stop 07/23/17 at 18:53; Status DC Lisinopril (Prinivil) 10 mg DAILY PO Last administered on 07/24/17 09:02; Start 07/23/17 at 18:45; Stop 07/24/17 at 19:25; Status DC Miscellaneous Information SPECIFIC LAB TO BE KARLA... ONCE ONCE .XX Last administered on 07/25/17 05:45; Start 07/25/17 at 05:45; Stop 07/25/17 at 05:46; Status DC Bupivacaine HCl (Marcaine Pf 0.5% Inj) 30 ml STK-MED ONCE .ROUTE ; Start at 09:24; Stop 07/24/17 at 09:25; Status DC Lidocaine HCl (Xylocaine 1% Inj (50 ml)) 50 ml STK-MED ONCE .ROUTE ; Start at 09:24; Stop 07/24/17 at 09:25; Status DC Sodium Chloride (NS Flush) 2 ml UNSCH PRN IV FLUSH FLUSH AFTER USING IV ACCESS Last administered on 07/28/17 06:25; Start 07/24/17 at 11:00 Sodium Chloride (NS Flush) 2 ml BID IV FLUSH Last administered on 08/03/17 09: 57; Start 07/24/17 at 21:00 Miscellaneous Information (Post-op Orders (for Pharmacy)) STAT ONCE XX ; Start 07/24/17 at 11:00; Stop 07/24/17 at 12:36; Status DC Hydromorphone HCl (Dilaudid Pf Inj) 1 mg Q3H PRN IV BREAKTHROUGH PAIN Last administered on 08/02/17 17:23; Start 07/24/17 at 11:00 Hydromorphone HCl (Dilaudid) 1 mg Q4H PRN PO PAIN SCALE 3 TO 5; Start 07/24/17 at 11:00; Stop 07/24/17 at 19:32; Status DC Hydromorphone HCl (Dilaudid) 2 mg Q4H PRN PO PAIN SCALE 6 TO 10 Last administered on 07/24/17 17:48; Start 07/24/17 at 11:00; Stop 07/24/17 at 19:32; Status DC Naloxone HCl (Narcan Inj) 0.4 mg UNSCH PRN IV SEE LABEL COMMENTS; Start at 11:00 Hydromorphone HCl (*DILAUDID PF INJ PERIprocedural ONLY) 1 mg STK-MED ONCE .ROUTE Last administered on 07/24/17 11:26; Start 07/24/17 at 11:26; Stop at 11:27; Status DC Miscellaneous Information ALL NURSING DEPARTME... UNSCH PRN .XX SEE LABEL COMMENTS; Start 07/24/17 at 10:55; Stop 07/25/17 at 10:54; Status DC Vancomycin HCl (Vancomycin Inj) 500 mg STK-MED ONCE .ROUTE Last administered on 07/24/17 13:59; Start 07/24/17 at 11:54; Stop 07/24/17 at 11:55; Status DC Vancomycin HCl (Vancomycin Inj) 1,000 mg STK-MED ONCE .ROUTE ; Start 07/24/17 at 11:55; Stop 07/24/17 at 11:56; Status DC Hydromorphone HCl (*DILAUDID PF INJ PERIprocedural ONLY) 1 mg STK-MED ONCE .ROUTE Last administered on 07/24/17 13:20; Start 07/24/17 at 13:20; Stop at 13:21; Status DC Lisinopril (Prinivil) 20 mg DAILY PO Last administered on 07/25/17 08:46; Start 07/25/17 at 09:00; Stop 07/25/17 at 14:49; Status DC Oxycodone HCl (Roxicodone) 10 mg Q4H PRN PO pain 6-10 Last administered on 08/03 09:44; Start 07/24/17 at 19:30 Oxycodone HCl (Roxicodone) 5 mg Q4H PRN PO pain 3-5; Start 07/24/17 at 19:30 Lisinopril (Prinivil) 20 mg BID PO Last administered on 07/26/17 08:50; Start 07/25/17 at 21:00; Stop 07/26/17 at 17:04; Status DC Lisinopril (Prinivil) 40 mg DAILY PO Last administered on 08/03/17 09:43; Start 07/27/17 at 09:00 Lisinopril (Prinivil) 20 mg ONCE ONCE PO Last administered on 07/26/17 17:00 ; Start 07/26/17 at 17:00; Stop 07/26/17 at 18:00; Status DC Hydralazine HCl (Apresoline) 50 mg Q6HR PO Last administered on 08/03/17 04:59 ; Start 07/28/17 at 18:00 Miscellaneous Information SPECIFIC LAB TO BE DRAWN:VANCOMYCIN TROUGH DATE TO... ONCE ONCE .XX Last administered on 07/30/17 12:30; Start 07/30/17 at 11:45; Stop 07/30/17 at 11:46; Status DC Acetaminophen (Tylenol) 650 mg Q6H PRN PO fever Last administered on 08/02/17 20:58; Start 07/29/17 at 18:15 Clonidine (Catapres) 0.1 mg Q12HR PO Last administered on 08/03/17 09:44; Start 07/30/17 at 12:00 Vancomycin HCl 1250 mg/Sodium Chloride 262.5 ml @ 250 mls/hr Q18H IV Last administered on 08/02/17 17:23; Start 07/31/17 at 12:00 Miscellaneous Information SPECIFIC LAB TO BE KARLA... ONCE ONCE .XX ; Start 08/02 at 17:45; Stop 08/02/17 at 17:46; Status DC Famotidine (Pepcid) 20 mg BID NG Last administered on 08/03/17 09:42; Start at 21:00 Gabapentin (Neurontin) 100 mg TID PO Last administered on 08/03/17 09:42; Start 08/02/17 at 13:00 Miscellaneous Information SPECIFIC LAB TO BE KARLA... ONCE ONCE .XX ; Start 08/03 at 11:45; Stop 08/03/17 at 11:46 Miscellaneous Information SPECIFIC LAB TO BE KARLA... 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 Aortogram with left lower extremity angiograms 2. Left SFA and popliteal artery angioplasty to 5 mm. 3. Right common femoral AngioSeal. s/p Amputation left hallux with metatarsal and medial cuneiform left foot continue with antibiotics per ID- f/u with podiatry and vascular surgery as outpatient. wound vac per podiatry and ID. anemia of chronic disease; will monitor H/H Dementia; continue Aricept hypertension; continue lisinopril, hydralazine and cardizem- continue to monitor and adjust the regimen as needed. Hypokalemia; will replace DVT prophylaxis with subq Heparin. Discharge Planning dc to [facility] when cleared by ID and podiatry. d/w the case management and Blank. Alison Ceja MD Aug 03, 2017 11:02
[2017-08-03] MEDS ORDERED: POTASSIUM CHLORIDE 10 MEQ CONTROLLED RELEASE TAB PO ONE ×2 (11:15→15:00)
[2017-08-03] MEDS: VANCOMYCIN INJ 1,250 MG in SODIUM CHLOR 0.9% 250 ML INJ 250 ML IV SCH (13:19)
--- NOTE | 2017-08-03 16:55 | HHI.FF ---
Infusion Therapy Location of Infusion Therapy: [facility] Infusion Therapy Order Patient Information Patient Weight 88.7 kg Diagnosis: Diagnosis Osteo left foot. MRSA Coded Allergies: Sulfa (Sulfonamide Antibiotics) (Verified Allergy, Severe, Anaphylaxis, ) metronidazole (Verified Allergy, Severe, Fever, colitis, 07/07/17) While being treated for Cdiff. Doubt if true allergy. penicillin G (Verified Allergy, Severe, Anaphylaxis, 07/07/17) sulfamethoxazole (Verified Allergy, Severe, Anaphylaxis, 07/07/17) trimethoprim (Verified Allergy, Severe, Anaphylaxis, 07/07/17) erythromycin base (Verified Allergy, Intermediate, Rash, 07/07/17) aspirin (Verified Allergy, Unknown, 07/07/17) oxycodone (Verified Allergy, Unknown, 07/07/17) PT states oxycodone is fine, but percodan is too strong MRI PRECAUTION (Verified Adverse Reaction, Severe, BLADDER STIMULATOR, ) BRAIN ONLY ON RECEIVE ONLY COIL, P.O. 01/11/17, DML acetaminophen (Verified Adverse Reaction, Unknown, Psychosis, 07/07/17) meperidine (Verified Adverse Reaction, Unknown, Psychosis, 07/07/17) morphine (Verified Adverse Reaction, Unknown, Psychosis, 07/07/17) Uncoded Allergies: surgical tape (Allergy, Severe, 12/15/13) Administer Medication Vancomycin 1200mgIV Q18 hours Stop Treatment: Aug 27, 2017 Additional Information Venous access: PICC Line Additional Instructions [x] Peripheral flush and dressing changes per protocol [x] Implanted port and central headliner installer: * Implanted port: 10 ml Normal Saline followed by 5 ml Heparin 100 units/ml Heparin flush after each use and monthly to maintain. [] May leave port accessed during therapy. [] May leave peripheral site accessed for duration of therapy. [x] If patient has SOB or respiratory distress, check oxygen saturation. If less than 90% or clinical signs of respiratory distress, administer oxygen at 2 L/min. via nasal cannula and notify physician. [x] Anaphylaxis/Reaction orders: * Stop infusion. * Keep IV line open with saline flush. * Notify physician. * Monitor vital signs every 15 minutes until symptoms resolve. * Check Oxygen saturation; Oxygen at 2 L/min. via nasal cannula if less than 90% or clinical signs of respiratory distress. * Administer diphenhydramine (Benadryl) 25 mg IV STAT, (unless patient has received as pre-med). May repeat once, if necessary. * Solu-Cortef 250 mg IVP over 30-60 seconds, use 100 mg vials for each dissolution. * Epinephrine (1mg/1 ml) 0.3 mg subcutaneously or IVP now with any signs of respiratory distress. * Check with physician for new additional pre-med orders if patient is re- challenged or re-treated. [x] May remove PICC line when treatment complete, after confirming with Physician. [x] If the patient is admitted to the hospital, the ED, or transferred via [facility] , complete transfer form including medication reconciliation order sheet. Laboratory Tests Weekly Labs: Vancomycin Trough Additional Information BMP Q 3 days. Follow up with ID Dr Lorin Avalos after discharge. Cullen Long MD Aug 03, 2017 16:55
[2017-08-03] MEDS: HYDROmorphone HCL PF 1 MG/ML VIAL IV PRN (16:58)
--- NOTE | 2017-08-03 17:04 | HHI.IDPN ---
Note Infectious Disease Note ID resumption of care. No distress. Notes mild pain in left foot. Afebrile. Last wound culture - MRSA. Last debridement 08/23/2017 Path consistent with osteo. PAST MEDICAL HISTORY 1. Hypertension 2. COPD 3. Hyperlipidemia 4. dementia 5. Transient ischemic attack. 6. History of shingles 7. Glaucoma 8. History of appendectomy. 9. History of back surgery. 10. History of penile implant. 11. History of surgery for arachnoiditis. 12. Carotid artery surgery 13. History of C-difficile colitis. 14. Left knee septic arthritis. ALLERGIES ERYTHROMYCIN METRONIDAZOLE PENICILLIN SULFAMETHOXAZOLE TRIMETHOPRIM OXYCODONE MORPHINE MEPERIDINE ASPIRIN ACETAMINOPHEN MRI precaution. OBJECTIVE: Vital Signs Date Time Temp Pulse Resp B/P (MAP) Pulse Ox O2 Delivery O2 Flow Rate FiO2 08/03/17 12:00 99.5 61 20 165/64 (97) 95 08/03/17 08:00 98.7 54 20 141/63 (89) 98 08/03/17 04:00 98.1 66 18 159/70 (99) 95 08/03/17 00:00 Room Air 08/03/17 00:00 98.0 54 22 132/60 (84) 94 08/02/17 20:00 100.4 66 20 163/72 (102) 95 08/02/17 20:00 65 08/02/17 20:00 Room Air 08/02/17 19:06 Laboratory Tests Test 08/03/17 08:11 White Blood Count 9.8 TH/MM3 Red Blood Count 2.79 MIL/MM3 Hemoglobin 7.6 GM/DL Hematocrit 22.8 % Mean Corpuscular Volume 81.6 FL Mean Corpuscular Hemoglobin 27.1 PG Mean Corpuscular Hemoglobin Concent 33.3 % Red Cell Distribution Width 17.6 % Platelet Count 400 TH/MM3 Mean Platelet Volume 7.3 FL Neutrophils (%) (Auto) 72.5 % Lymphocytes (%) (Auto) 13.0 % Monocytes (%) (Auto) 12.4 % Eosinophils (%) (Auto) 1.3 % Basophils (%) (Auto) 0.8 % Neutrophils # (Auto) 7.1 TH/MM3 Lymphocytes # (Auto) 1.3 TH/MM3 Monocytes # (Auto) 1.2 TH/MM3 Eosinophils # (Auto) 0.1 TH/MM3 Basophils # (Auto) 0.1 TH/MM3 CBC Comment DIFF FINAL Differential Comment Laboratory Tests Test 08/03/17 08:11 Blood Urea Nitrogen 18 MG/DL Creatinine 1.03 MG/DL Random Glucose 111 MG/DL Total Protein 6.1 GM/DL Albumin 1.6 GM/DL Calcium Level 9.1 MG/DL Alkaline Phosphatase 111 U/L Aspartate Amino Transf (AST/SGOT) 22 U/L Alanine Aminotransferase (ALT/SGPT) 22 U/L Total Bilirubin 0.2 MG/DL Sodium Level 137 MEQ/L Potassium Level 2.8 MEQ/L Chloride Level 102 MEQ/L Carbon Dioxide Level 28.0 MEQ/L Anion Gap 7 MEQ/L Estimat Glomerular Filtration Rate 71 ML/MIN PHYSICAL EXAMINATION: IN GENERAL: No acute distress. Awake and alert. HEENT: EOMI, SHABBIR. No icterus NECK: No swelling or adenopathy. LUNGS: Clear breath sounds. HEART: Regular S1-S2. No audible murmur. EXTREMITIES: Left foot wound ulcer crater is clean. No surrounding erythema. No edema SKIN: No rash. NEUROLOGIC: Non focal. PSYCHIATRIC: Calm. IMPRESSION 1. Post treatment for Sepsis in patient who presented with altered mental status fever, tachycardia and elevated white blood cell count and also with left foot osteomyelitis and now with purulent draining wound with necrotic changes indicating possible gangrene and also possible ischemia involving the left the left great toe. Possible focus of sepsis. 2. 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 The patient declined antibiotic treatment last admission because of history of C-difficile colitis. Post revascularization and debridement. RECOMMENDATIONS Continue intravenous vancomycin until 08/27 2017. (Trough 15 - 20). Patient to be transferred to [facility]. Orders writen. Discussed with case management. Cullen Long MD Aug 03, 2017 17:04
--- NOTE | 2017-08-03 18:46 | PD.WCN.NOT ---
Wound Consult Description: Consult placed for Wound Management of sacral per Dr Ceja Communicated with: Dr Brenna Wen RN Recommendation: Calazime skin protectant to bilateral buttocks Reposition patient every 2 hours and PRN Use only one underpad underneath patient Additional Information: Patient seen on 4 for sacral wound. Patient positioned to his left side with assistance from JERRY Wen. Patient had a soft black/green bm and was cleansed with soft cloths and 1 underpad removed to leave one clean underpad beneath patient for moisture. Calazime was in place, most removed to reveal a wound to the right buttock in the shape of a yanni measuring 1cm x 1cm x 0.5cm red and pink tissue that was minimally bleeding with cleansing. Periwound is blanchable erythema. Left buttock is noted with a macerated area of moist intact white friable skin that would appear to have been exposed to moisture with jagged margins measuring 6cm x 1.5cm x 0cm with blanchable erythema noted to periwound. Calazime was applied to bilateral buttocks and patient was positioned to his right side before leaving room with JERRY Wen. Marely Torres [facility] Aug 03, 2017 18:46
[2017-08-03] MEDS: ATORVASTATIN 40 MG TAB PO SCH (22:22)
[2017-08-03] MEDS: DONEPEZIL HCL 5 MG TAB PO SCH (22:23)
[2017-08-03] MEDS: LATANOPROST 0.005% OPHT SOLN 2.5 ML BTL EACH EYE SCH (22:28)
[2017-08-04] VITALS: BP 137/66; PULSE 55; RESP 20; TEMP 98.7; O2SAT 94
[2017-08-04] MEDS: CHLORHEXIDINE GLUCONATE 2 % 1 PACK (2 CLOTHS) TOP SCH (03:46)
[2017-08-04 04:00] VITALS: BP 126/61; PULSE 54; RESP 19; TEMP 97.6; O2SAT 93
[2017-08-04] MEDS: INSULIN NovoLIN REGULAR SUPPLEMENTAL SCALE SQ SCH ×2 (04:00→10:00)
[2017-08-04] MEDS: DILTIAZEM HCL 60 MG TAB PO SCH ×2 (04:00→09:47)
[2017-08-04] MEDS: HEPARIN SODIUM - SQ 10,000 UNITS/ML VIAL SQ SCH ×2 (05:04→15:42)
[2017-08-04] MEDS: hydrALAZINE HCL 50 MG TAB PO SCH ×2 (05:04→16:05)
[2017-08-04] MEDS: VANCOMYCIN INJ 1,250 MG in SODIUM CHLOR 0.9% 250 ML INJ 250 ML IV SCH (05:04)
[2017-08-04 08:00] VITALS: BP 151/67; PULSE 56; RESP 20; TEMP 97.8; O2SAT 95
[2017-08-04] MEDS: ARTIFICIAL TEARS OPTH SOLN 15 ML BTL EACH EYE SCH ×2 (09:00→12:30)
[2017-08-04] MEDS: BUDESONIDE-FORMOTEROL 80/4.5 MCG INHALER INH SCH (09:00)
[2017-08-04] MEDS: DOCUSATE SODIUM 50 MG/SENNA 8.6 MG TAB PO SCH ×2 (09:00→09:47)
[2017-08-04] MEDS: LACTOBACILLUS ACIDOPHILUS TAB PO SCH ×2 (09:47→15:38)
[2017-08-04] MEDS: LISINOPRIL 20 MG TAB PO SCH (09:47)
[2017-08-04] MEDS: CITALOPRAM HYDROBROMIDE 20 MG TAB PO SCH (09:47)
[2017-08-04] MEDS: GABAPENTIN 100 MG CAP PO SCH ×2 (09:47→15:38)
[2017-08-04] MEDS: ASCORBIC ACID 500 MG TAB PO SCH (09:47)
[2017-08-04] MEDS: FAMOTIDINE 20 MG TAB NG SCH (09:47)
[2017-08-04] MEDS: MULTIVITAMINS/MINERALS THERAPEUTIC TAB PO SCH (09:47)
[2017-08-04] MEDS: cloNIDine HCL 0.1 MG TAB PO SCH (09:47)
[2017-08-04] MEDS: FERROUS SULFATE 325 MG (65 MG ELEMENTAL IRON) TAB PO SCH (09:47)
[2017-08-04] MEDS: HYDROmorphone HCL PF 1 MG/ML VIAL IV PRN (09:59)
[2017-08-04] MEDS: SODIUM CHLORIDE 0.9% FLUSH 10 ML FLUSH IV FLUSH SCH (09:59)
--- NOTE | 2017-08-04 10:03 | HHI.PR ---
Subjective Remarks resting comfortably with no distress. afebrile. no new complaints. Objective Vitals Vital Signs Date Time Temp Pulse Resp B/P (MAP) Pulse Ox O2 Delivery O2 Flow Rate FiO2 08/04/17 08:00 97.8 56 20 151/67 (95) 95 08/04/17 04:00 97.6 54 19 126/61 (82) 93 08/04/17 00:00 98.7 55 20 137/66 (89) 94 08/03/17 20:45 Room Air 08/03/17 20:15 70 08/03/17 20:00 98.2 64 19 152/69 (96) 96 08/03/17 16:00 98.8 61 20 152/68 (96) 96 08/03/17 12:00 99.5 61 20 165/64 (97) 95 I/O 08/03/17 08/03/17 08/03/17 08/04/17 08/04/17 08/04/17 07:00 15:00 23:00 07:00 15:00 23:00 Intake Total 175 ml 480 ml 240 ml 502.5 ml Output Total 750 ml 1300 ml 200 ml 800 ml Balance -575 ml -820 ml 40 ml -297.5 ml Intake Oral 175 ml 480 ml 240 ml 240 ml IV Total 262.5 ml Output Urine Total 750 ml 1300 ml 200 ml 800 ml # Bowel Movements 1 0 0 Result Diagram: 08/03/17 0811 08/03/17 0811 Imaging Last Impressions Foot X-Ray 07/24/17 0000 Signed Impressions: Service Date/Time: Monday, July 24, 2017 11:21 - CONCLUSION: Postop amputation. K. Leroy Willis MD Chest X-Ray 07/21/17 0000 Signed Impressions: Service Date/Time: Friday, July 21, 2017 07:49 - CONCLUSION: 1. Left lower lobe atelectasis versus pneumonia. There has been no significant change when compared to the prior exam. Yo Mcbride MD Lower Extremity Ultrasound 07/18/17 0000 Signed Impressions: Service Date/Time: Tuesday, July 18, 2017 10:04 - CONCLUSION: Normal examination. Bautista Hoff MD Head CT 07/14/17 0043 Signed Impressions: Service Date/Time: Friday, July 14, 2017 02:09 - CONCLUSION: No acute intracranial abnormality is identified. Jose Miller MD Ankle X-Ray 07/14/17 0000 Signed Impressions: Service Date/Time: Friday, July 14, 2017 01:48 - CONCLUSION: No acute left ankle abnormality is identified. Jose Miller MD Objective Remarks GENERAL: This is a well-nourished, well-developed patient, in no apparent distress. CARDIOVASCULAR: Regular rate and regular rhythm without murmurs, gallops, or rubs. RESPIRATORY: Clear to auscultation. Breath sounds equal bilaterally. No wheezes , rales, or rhonchi. GASTROINTESTINAL: Abdomen soft, non-tender, nondistended. Normal, active bowel sounds MUSCULOSKELETAL: left foot covered with clean dressing. NEURO: Alert & Oriented x4 to person, place, time, situation. Moves all ext x4 Procedures s/p 1. Aortogram with left lower extremity angiograms 2. Left SFA and popliteal artery angioplasty to 5 mm. 3. Right common femoral AngioSeal. s/p Amputation left hallux with metatarsal and medial cuneiform left foot Medications and IVs Current Medications Etomidate (Amidate Inj) 40 mg STK-MED ONCE .ROUTE ; Start 07/14/17 at 00:32; Stop 07/14/17 at 00:33; Status DC Propofol 100 ml @ As Directed STK-MED ONCE .ROUTE ; Start 07/14/17 at 00:35; Stop 07/14/17 at 00:36; Status DC IV Flush (NS Flush) 2 ml UNSCH PRN IV FLUSH FLUSH AFTER USING IV ACCESS; Start 07/14/17 at 00:45; Stop 07/14/17 at 03:47; Status DC Vancomycin HCl 1450 mg/Sodium Chloride 514.5 ml @ 250 mls/hr ONCE ONCE IV Last administered on 07/14/17 02:36; Start 07/14/17 at 01:30; Stop 07/14/17 at 03:33; Status DC Aztreonam 2000 mg/ Sodium Chloride 100 ml @ 200 mls/hr ONCE ONCE IV Last administered on 07/14/17 02:08; Start 07/14/17 at 01:30; Stop 07/14/17 at 01:59 ; Status DC Racepinephrine (Racepinephrine 2.25% Neb) 0.5 ml ONCE ONCE NEB Last administered on 07/14/17 01:36; Start 07/14/17 at 01:30; Stop 07/14/17 at 01:31 ; Status DC Methylprednisolone Sodium Succinate (SoluMEDROL INJ) 60 mg ONCE ONCE IVP Last administered on 07/14/17 01:44; Start 07/14/17 at 01:30; Stop 07/14/17 at 01:31 ; Status DC Albuterol/ Ipratropium (Duoneb Neb) 1 ampule Q15M INH Last administered on 07/14 01:48; Start 07/14/17 at 01:30; Stop 07/14/17 at 02:01; Status DC Etomidate (Amidate Inj) 30 mg ONCE ONCE IV PUSH Last administered on 02:09; Start 07/14/17 at 02:00; Stop 07/14/17 at 02:02; Status DC Rocuronium [place] (Zemuron Inj) 60 mg BOLUS ONCE IV Last administered on 07/14 02:08; Start 07/14/17 at 02:00; Stop 07/14/17 at 02:02; Status DC Propofol 100 ml @ 2.85 mls/hr Q35H6M PRN IV Ordered RASS Last administered on 01:37; Start 07/14/17 at 02:02; Stop 07/16/17 at 12:44; Status DC Midazolam HCl (Versed Inj) 5 mg STK-MED ONCE .ROUTE ; Start 07/14/17 at 02:30; Stop 07/14/17 at 02:31; Status DC Sodium Chloride 1,000 ml @ 999 mls/hr BOLUS ONCE IV Last administered on 07/14 03:32; Start 07/14/17 at 03:00; Stop 07/14/17 at 04:00; Status DC Midazolam HCl (Versed Inj) 5 mg ONCE ONCE IV PUSH Last administered on 03:06; Start 07/14/17 at 03:15; Stop 07/14/17 at 03:16; Status DC Midazolam HCl 100 ml @ 2 mls/hr Q50H PRN IV SEDATION Last administered on 03:39; Start 07/14/17 at 03:01; Stop 07/15/17 at 06:31; Status DC Midazolam HCl 100 ml @ As Directed STK-MED ONCE .ROUTE ; Start 07/14/17 at 03: 17; Stop 07/14/17 at 03:18; Status DC Aspirin (Aspirin Chew) 81 mg DAILY CHEW Last administered on 07/20/17 08:37; Start 07/14/17 at 09:00; Status Future Hold Atorvastatin Calcium (Lipitor) 40 mg HS PO Last administered on 08/03/17 22:22 ; Start 07/14/17 at 21:00 Citalopram Hydrobromide (CeleXA) 60 mg DAILY PO Last administered on 08/03/17 09:44; Start 07/14/17 at 09:00 Cyclobenzaprine HCl (Flexeril) 10 mg Q8HR PO Last administered on 07/15/17 04: 21; Start 07/14/17 at 06:00; Stop 07/15/17 at 06:31; Status DC Donepezil HCl (Aricept) 10 mg HS PO Last administered on 08/03/17 22:23; Start 07/14/17 at 21:00 Gabapentin (Neurontin) 100 mg TID PO ; Start 07/14/17 at 09:00; Stop 07/15/17 at 06:31; Status DC Lactobacillus Acidophilus (Lactinex) 1 tab TIDAC PO Last administered on 18:10; Start 07/14/17 at 08:00 Ascorbic Acid (Vitamin C) 1,000 mg DAILY PO Last administered on 08/03/17 09: 44; Start 07/14/17 at 09:00 Ferrous Sulfate (Ferrous Sulfate) 325 mg BIDPC PO Last administered on 18:11; Start 07/14/17 at 09:00 Budesonide/ Formoterol Fumarate (Symbicort 80-4.5 Mcg Inh) 1 puff BID INH Last administered on 08/03/17 09:57; Start 07/14/17 at 09:00 Multivitamins/ Minerals Therapeutic (Theragran M Tab) 1 tab DAILY PO Last administered on 08/03/17 09:44; Start 07/14/17 at 09:00 Latanoprost (Xalatan 0.005% Opt Soln) 1 drop HS EACH EYE Last administered on 08/03/17 22:28; Start 07/14/17 at 21:00 Sodium Chloride (NS Flush) 2 ml UNSCH PRN .XX FLUSH AFTER USING IV ACCESS; Start 07/14/17 at 03:30; Stop 07/24/17 at 12:35; Status DC Sodium Chloride (NS Flush) 2 ml BID .XX Last administered on 07/23/17 21:20; Start 07/14/17 at 09:00; Stop 07/24/17 at 12:35; Status DC Acetaminophen (Tylenol) 650 mg Q6H PRN PO FEVER >101F; Start 07/14/17 at 03:30 ; Stop 07/14/17 at 03:47; Status DC Morphine Sulfate (Morphine Inj) 2 mg Q2H PRN IV PAIN SCALE 6 TO 10; Start 07/14 at 03:30; Stop 07/14/17 at 03:47; Status DC Famotidine (Pepcid Inj) 20 mg Q12HR IV PUSH Last administered on 07/14/17 20: 45; Start 07/14/17 at 09:00; Stop 07/15/17 at 06:31; Status DC Midazolam HCl (Versed Inj) 2 mg Q1H PRN IV SEDATION; Start 07/14/17 at 03:30; Stop 07/15/17 at 06:31; Status DC Artificial Tears (Tears Naturale Opth Soln) 1 drop TID EACH EYE Last administered on 08/03/17 18:18; Start 07/14/17 at 09:00 Ondansetron HCl (Zofran Inj) 4 mg Q6H PRN IV NAUSEA OR VOMITING; Start at 03:30 Albuterol/ Ipratropium (Duoneb Neb) 1 ampule Q6HR NEB INH Last administered on 07/17/17 07:39; Start 07/14/17 at 04:00; Stop 07/18/17 at 03:59; Status DC Albuterol/ Ipratropium (Duoneb Neb) 1 ampule Q2HR NEB PRN INH WHEEZING Last administered on 07/21/17 02:00; Start 07/14/17 at 03:30 Heparin Sodium (Porcine) (Heparin Inj) 5,000 units Q8H SQ Last administered on 08/04/17 05:04; Start 07/14/17 at 06:00 Miscellaneous Information 1 Q361D XX ; Start 07/14/17 at 03:30 Chlorhexidine Gluconate (Chlorhexidine 2% Cloth) 3 pack Taper DAILY@04 TOP Last administered on 07/21/17 01:37; Start 07/14/17 at 04:00; Stop 07/10/18 at 03:59 Chlorhexidine Gluconate (Chlorhexidine 2% Cloth) 3 pack UNSCH PRN TOP HYGIENIC CARE; Start 07/14/17 at 03:30 Senna/Docusate Sodium ([place]-Colace) 1 tab BID PO Last administered on 08:33; Start 07/14/17 at 09:00 Magnesium Hydroxide (Milk Of Magnesia Liq) 30 ml Q12H PRN PO MILD - MODERATE CONSTIPATION; Start 07/14/17 at 03:30 Sennosides (Senokot) 17.2 mg Q12H PRN PO MODERATE - SEVERE CONSTIPATION; Start 07/14/17 at 03:30 Bisacodyl (Dulcolax Supp) 10 mg DAILY PRN RECTAL SEVERE CONSITIPATION; Start at 03:30 Lactulose (Lactulose Liq) 30 ml DAILY PRN PO SEVERE CONSITIPATION; Start at 03:30; Stop 07/27/17 at 17:16; Status DC Pharmacy Profile Note 0 ml @ 0 mls/hr UNSCH OTHER ; Start 07/14/17 at 03:30 Vancomycin HCl 1000 mg/Sodium Chloride 250 ml @ 250 mls/hr ONCE ONCE IV ; Start 07/14/17 at 03:30; Stop 07/14/17 at 04:29; Status UNV Hydromorphone HCl (Dilaudid Pf Inj) 0.5 mg Q4H PRN IV PAIN 1-10 Last administered on 07/16/17 10:32; Start 07/14/17 at 04:00; Stop 07/16/17 at 12:44 ; Status DC Fentanyl Citrate 250 ml @ 5 mls/hr Q24H PRN IV SEDATION Last administered on 04:29; Start 07/14/17 at 03:56; Stop 07/16/17 at 12:44; Status DC Hydralazine HCl (Apresoline Inj) 20 mg Q4H PRN IV PUSH SBP>160, DBP>90 Last administered on 07/29/17 23:50; Start 07/14/17 at 04:00 Pharmacy Profile Note 0 ml @ 0 mls/hr UNSCH OTHER ; Start 07/14/17 at 05:30; Stop 07/14/17 at 05:30; Status DC Vancomycin HCl 1000 mg/Sodium Chloride 250 ml @ 250 mls/hr ONCE ONCE IV ; Start 07/14/17 at 05:30; Stop 07/14/17 at 06:29; Status UNV Dextrose (D50w (Vial) Inj) 50 ml UNSCH PRN IV HYPOGLYCEMIA-SEE COMMENTS; Start 07/14/17 at 05:30; Stop 07/14/17 at 10:45; Status DC Glucagon (Glucagon Inj) 1 mg UNSCH PRN OTHER HYPOGLYCEMIA-SEE COMMENTS; Start 07/14/17 at 05:30; Stop 07/14/17 at 10:45; Status DC Insulin Aspart (NovoLOG SUPPLEMENTAL SCALE) 1 ACHS SLIDING SCALE SQ Last administered on 07/14/17 06:42; Start 07/14/17 at 07:00; Stop 07/14/17 at 10:10 ; Status DC Vancomycin HCl 1500 mg/Sodium Chloride 515 ml @ 250 mls/hr Q12H IV Last administered on 07/16/17 06:01; Start 07/14/17 at 14:00; Stop 07/16/17 at 08:58 ; Status DC Miscellaneous Information SPECIFIC LAB TO BE DRAWN:VANCOMYCIN TROUGH DATE TO... ONCE ONCE .XX ; Start 07/16/17 at 01:45; Stop 07/16/17 at 01:46; Status DC Sodium Chloride 1,000 ml @ 84 mls/hr [id number] IV Last administered on 00:19; Start 07/14/17 at 11:00; Stop 07/16/17 at 12:44; Status DC Dextrose (D50w (Vial) Inj) 50 ml UNSCH PRN IV HYPOGLYCEMIA-SEE COMMENTS; Start 07/14/17 at 10:15; Stop 07/17/17 at 09:56; Status DC Glucagon (Glucagon Inj) 1 mg UNSCH PRN OTHER HYPOGLYCEMIA-SEE COMMENTS; Start 07/14/17 at 10:15; Stop 07/17/17 at 09:56; Status DC Insulin Human Regular (NovoLIN R SUPPLEMENTAL SCALE) 1 Q4H SQ Last administered on 07/15/17 06:48; Start 07/14/17 at 11:00; Stop 07/16/17 at 17:20 ; Status DC Potassium Chloride 100 ml @ 50 mls/hr Q2H PRN IV For Potassium 2.8 - 3.2 mEq/ L Last administered on 07/18/17 16:54; Start 07/14/17 at 10:15; Stop 07/23/17 at 13:47; Status DC Potassium Chloride 100 ml @ 50 mls/hr Q2H PRN IV For Potassium 2.8 - 3.2 mEq/L ; Start 07/14/17 at 10:15; Stop 07/23/17 at 13:47; Status DC Potassium Bicarb/ Potassium Chloride (K-Lyte Cl Eff) 50 meq UNSCH PRN PO For Potassium 3.3 - 3.5 mEq/L; Start 07/14/17 at 10:15; Stop 07/23/17 at 13:47; Status DC Potassium Chloride 100 ml @ 25 mls/hr UNSCH PRN IV For Potassium 3.3 - 3.5 mEq /L Last administered on 07/20/17 17:13; Start 07/14/17 at 10:15; Stop 07/23/17 at 13:47; Status DC Potassium Chloride 100 ml @ 50 mls/hr Q2H PRN IV For Potassium 3.3 - 3.5 mEq/L ; Start 07/14/17 at 10:15; Stop 07/23/17 at 13:47; Status DC Magnesium Sulfate 4 gm/Sodium Chloride 100 ml @ 50 mls/hr UNSCH PRN IV For Magnesium 0.9 - 1.1 mg/dL; Start 07/14/17 at 10:15; Stop 07/23/17 at 13:47; Status DC Magnesium Oxide (Mag-Ox) 800 mg UNSCH PRN PO For Magnesium 1.2 - 1.6 mg/dL; Start 07/14/17 at 10:15; Stop 07/23/17 at 13:47; Status DC Magnesium Sulfate 2 gm/Sodium Chloride 100 ml @ 50 mls/hr UNSCH PRN IV For Magnesium 1.2 - 1.6 mg/dL; Start 07/14/17 at 10:15; Stop 07/23/17 at 13:47; Status DC Potassium Phosphate (K-Phos) 2,000 mg Q4H PRN PO For Phosphorus < 2.5 mg/dL; Start 07/14/17 at 10:15; Stop 07/23/17 at 13:47; Status DC Sodium Phosphate 30 mmol/Sodium Chloride 250 ml @ 42 mls/hr UNSCH PRN IV For Phosphorus < 2.5 mg/dL; Start 07/14/17 at 10:15; Stop 07/23/17 at 13:47; Status DC Potassium Phosphate (K-Phos) 2,000 mg UNSCH PRN PO/TUBE SEE LABEL COMMENTS; Start 07/14/17 at 10:15; Stop 07/23/17 at 13:47; Status DC Potassium Phosphate 30 mmol/ Sodium Chloride 260 ml @ 42 mls/hr UNSCH PRN IV SEE LABEL COMMENTS; Start 07/14/17 at 10:15; Stop 07/23/17 at 13:47; Status DC Cyclobenzaprine HCl (Flexeril) 10 mg Q8H PRN PO muscle spasms Last administered on 08/02/17 11:46; Start 07/15/17 at 06:15 Famotidine (Pepcid Liq) 20 mg BID NG Last administered on 07/24/17 20:09; Start 07/15/17 at 09:00; Stop 07/31/17 at 10:14; Status DC Hydromorphone HCl (Dilaudid Pf Inj) 0.5 mg ONCE ONCE IV Last administered on 15:00; Start 07/15/17 at 15:00; Stop 07/15/17 at 15:01; Status DC Hydromorphone HCl (Dilaudid Pf Inj) 0.5 mg NOW ONCE IV PUSH ; Start 07/15/17 at 15:15; Stop 07/15/17 at 15:16; Status DC Furosemide (Lasix Inj) 40 mg STK-MED ONCE .ROUTE Last administered on 07:12; Start 07/16/17 at 07:12; Stop 07/16/17 at 07:13; Status DC Diltiazem HCl (Cardizem Inj) 25 mg STK-MED ONCE .ROUTE Last administered on 07:21; Start 07/16/17 at 07:21; Stop 07/16/17 at 07:22; Status DC Magnesium Sulfate/ Dextrose 100 ml @ 100 mls/hr Q1H IV Last administered on 08:45; Start 07/16/17 at 07:45; Stop 07/16/17 at 09:44; Status DC Potassium Chloride 100 ml @ 50 mls/hr Q2H IV Last administered on 07/16/17 09 :45; Start 07/16/17 at 07:45; Stop 07/16/17 at 11:44; Status DC Vancomycin HCl 1500 mg/Sodium Chloride 515 ml @ 250 mls/hr Q18H IV Last administered on 07/29/17 16:53; Start 07/17/17 at 00:00; Stop 07/30/17 at 14:21 ; Status DC Miscellaneous Information SPECIFIC LAB TO BE DRAWN:VANCO TROUGH DATE... ONCE ONCE .XX Last administered on 07/18/17 11:45; Start 07/18/17 at 11:45; Stop 07/18 at 11:46; Status DC Potassium Chloride (KCl) 40 meq NOW ONCE PO Last administered on 07/16/17 10: 32; Start 07/16/17 at 11:00; Stop 07/16/17 at 11:01; Status DC Hydromorphone HCl (Dilaudid Pf Inj) 0.5 mg Q2H PRN IV PAIN 6-10 or not taking po Last administered on 07/19/17 07:32; Start 07/16/17 at 14:00; Stop 07/19/17 at 07:52; Status DC Oxycodone HCl (Roxicodone) 5 mg Q4H PRN PO pain 1-5 Last administered on 19:30; Start 07/16/17 at 14:00; Stop 07/24/17 at 12:37; Status DC Diltiazem HCl (Cardizem) 60 mg Q6H PO Last administered on 08/03/17 22:23; Start 07/17/17 at 10:00 Dextrose (D50w (Vial) Inj) 50 ml UNSCH PRN IV HYPOGLYCEMIA-SEE COMMENTS; Start 07/17/17 at 09:00 Glucagon (Glucagon Inj) 1 mg UNSCH PRN OTHER HYPOGLYCEMIA-SEE COMMENTS; Start 07/17/17 at 09:00 Insulin Human Regular (NovoLIN R SUPPLEMENTAL SCALE) 1 Q6H SQ ; Start 07/17/17 at 10:00 Aztreonam 2000 mg/ Sodium Chloride 100 ml @ 200 mls/hr Q8H IV ; Start 07/17/17 at 10:00; Stop 07/17/17 at 10:02; Status DC Vancomycin HCl (VANCOMYCIN for oral use only) 125 mg QID PO Last administered on 07/28/17 10:05; Start 07/17/17 at 13:00; Stop 07/28/17 at 15:39; Status DC Hydromorphone HCl (Dilaudid Pf Inj) 0.5 mg ONCE ONCE IV PUSH Last administered on 07/17/17 14:40; Start 07/17/17 at 14:30; Stop 07/17/17 at 14:33; Status DC Hydralazine HCl (Apresoline) 50 mg Q8HR PO Last administered on 07/28/17 04:22 ; Start 07/18/17 at 09:30; Stop 07/28/17 at 14:43; Status DC Hydromorphone HCl (Dilaudid Pf Inj) 1 mg Q2H PRN IV PAIN 6-10 or not taking po Last administered on 07/24/17 15:43; Start 07/19/17 at 09:00; Stop 07/24/17 at 19: 32; Status DC Bumetanide (Bumex Inj) 1 mg ONCE ONCE IV PUSH Last administered on 07/20/17 08 :37; Start 07/20/17 at 08:00; Stop 07/20/17 at 08:01; Status DC Potassium Bicarb/ Potassium Chloride (K-Lyte Cl Eff) 50 meq ONCE ONCE PO Last administered on 07/21/17 09:35; Start 07/21/17 at 09:00; Stop 07/21/17 at 09: 01; Status DC Potassium Chloride 100 ml @ 100 mls/hr Q1H IV Last administered on 07/21/17 20 :41; Start 07/21/17 at 09:00; Stop 07/21/17 at 11:59; Status DC Miscellaneous Information SPECIFIC LAB TO BE DRAWN:VANCOMYCIN TROUGH DATE TO... ONCE ONCE .XX Last administered on 07/22/17 05:53; Start 07/22/17 at 05:45; Stop 07/22/17 at 05:46; Status DC Heparin Sodium (Porcine) (Heparin Inj) 10,000 units STK-MED ONCE .ROUTE Last administered on 07/21/17 13:44; Start 07/21/17 at 13:44; Stop 07/21/17 at 13:45; Status DC Vancomycin HCl (Vancomycin Inj) 1,000 mg STK-MED ONCE .ROUTE Last administered on 07/21/17 14:43; Start 07/21/17 at 14:10; Stop 07/21/17 at 14:11; Status DC Iohexol (Omnipaque 350 Inj) 50 ml ONCE ONCE .XX ; Start 07/21/17 at 14:44; Stop 07/21/17 at 14:45; Status DC Fentanyl Citrate (fentaNYL INJ) 100 mcg STK-MED ONCE .ROUTE ; Start 07/21/17 at 15:57; Stop 07/21/17 at 15:58; Status DC Miscellaneous Information ALL NURSING DEPARTME... UNSCH PRN .XX SEE LABEL COMMENTS; Start 07/21/17 at 15:49; Stop 07/22/17 at 15:48; Status DC Miscellaneous Information ALL NURSING DEPARTME... UNSCH PRN .XX SEE LABEL COMMENTS; Start 07/21/17 at 15:49; Stop 07/22/17 at 15:48; Status Cancel Potassium Chloride (KCl) 40 meq ONCE ONCE PO Last administered on 07/23/17 18: 59; Start 07/23/17 at 18:45; Stop 07/23/17 at 18:53; Status DC Lisinopril (Prinivil) 10 mg DAILY PO Last administered on 07/24/17 09:02; Start 07/23/17 at 18:45; Stop 07/24/17 at 19:25; Status DC Miscellaneous Information SPECIFIC LAB TO BE KARLA... ONCE ONCE .XX Last administered on 07/25/17 05:45; Start 07/25/17 at 05:45; Stop 07/25/17 at 05:46; Status DC Bupivacaine HCl (Marcaine Pf 0.5% Inj) 30 ml STK-MED ONCE .ROUTE ; Start at 09:24; Stop 07/24/17 at 09:25; Status DC Lidocaine HCl (Xylocaine 1% Inj (50 ml)) 50 ml STK-MED ONCE .ROUTE ; Start at 09:24; Stop 07/24/17 at 09:25; Status DC Sodium Chloride (NS Flush) 2 ml UNSCH PRN IV FLUSH FLUSH AFTER USING IV ACCESS Last administered on 07/28/17 06:25; Start 07/24/17 at 11:00 Sodium Chloride (NS Flush) 2 ml BID IV FLUSH Last administered on 08/03/17 22: 25; Start 07/24/17 at 21:00 Miscellaneous Information (Post-op Orders (for Pharmacy)) STAT ONCE XX ; Start 07/24/17 at 11:00; Stop 07/24/17 at 12:36; Status DC Hydromorphone HCl (Dilaudid Pf Inj) 1 mg Q3H PRN IV BREAKTHROUGH PAIN Last administered on 08/03/17 16:58; Start 07/24/17 at 11:00 Hydromorphone HCl (Dilaudid) 1 mg Q4H PRN PO PAIN SCALE 3 TO 5; Start 07/24/17 at 11:00; Stop 07/24/17 at 19:32; Status DC Hydromorphone HCl (Dilaudid) 2 mg Q4H PRN PO PAIN SCALE 6 TO 10 Last administered on 07/24/17 17:48; Start 07/24/17 at 11:00; Stop 07/24/17 at 19:32; Status DC Naloxone HCl (Narcan Inj) 0.4 mg UNSCH PRN IV SEE LABEL COMMENTS; Start at 11:00 Hydromorphone HCl (*DILAUDID PF INJ PERIprocedural ONLY) 1 mg STK-MED ONCE .ROUTE Last administered on 07/24/17 11:26; Start 07/24/17 at 11:26; Stop at 11:27; Status DC Miscellaneous Information ALL NURSING DEPARTME... UNSCH PRN .XX SEE LABEL COMMENTS; Start 07/24/17 at 10:55; Stop 07/25/17 at 10:54; Status DC Vancomycin HCl (Vancomycin Inj) 500 mg STK-MED ONCE .ROUTE Last administered on 07/24/17 13:59; Start 07/24/17 at 11:54; Stop 07/24/17 at 11:55; Status DC Vancomycin HCl (Vancomycin Inj) 1,000 mg STK-MED ONCE .ROUTE ; Start 07/24/17 at 11:55; Stop 07/24/17 at 11:56; Status DC Hydromorphone HCl (*DILAUDID PF INJ PERIprocedural ONLY) 1 mg STK-MED ONCE .ROUTE Last administered on 07/24/17 13:20; Start 07/24/17 at 13:20; Stop at 13:21; Status DC Lisinopril (Prinivil) 20 mg DAILY PO Last administered on 07/25/17 08:46; Start 07/25/17 at 09:00; Stop 07/25/17 at 14:49; Status DC Oxycodone HCl (Roxicodone) 10 mg Q4H PRN PO pain 6-10 Last administered on 08/04 05:11; Start 07/24/17 at 19:30 Oxycodone HCl (Roxicodone) 5 mg Q4H PRN PO pain 3-5; Start 07/24/17 at 19:30 Lisinopril (Prinivil) 20 mg BID PO Last administered on 07/26/17 08:50; Start 07/25/17 at 21:00; Stop 07/26/17 at 17:04; Status DC Lisinopril (Prinivil) 40 mg DAILY PO Last administered on 08/03/17 09:43; Start 07/27/17 at 09:00 Lisinopril (Prinivil) 20 mg ONCE ONCE PO Last administered on 07/26/17 17:00 ; Start 07/26/17 at 17:00; Stop 07/26/17 at 18:00; Status DC Hydralazine HCl (Apresoline) 50 mg Q6HR PO Last administered on 08/04/17 05:04 ; Start 07/28/17 at 18:00 Miscellaneous Information SPECIFIC LAB TO BE DRAWN:VANCOMYCIN TROUGH DATE TO... ONCE ONCE .XX Last administered on 07/30/17 12:30; Start 07/30/17 at 11:45; Stop 07/30/17 at 11:46; Status DC Acetaminophen (Tylenol) 650 mg Q6H PRN PO fever Last administered on 08/02/17 20:58; Start 07/29/17 at 18:15 Clonidine (Catapres) 0.1 mg Q12HR PO Last administered on 08/03/17 22:24; Start 07/30/17 at 12:00 Vancomycin HCl 1250 mg/Sodium Chloride 262.5 ml @ 250 mls/hr Q18H IV Last administered on 08/04/17 05:04; Start 07/31/17 at 12:00 Miscellaneous Information SPECIFIC LAB TO BE KARLA... ONCE ONCE .XX ; Start 08/02 at 17:45; Stop 08/02/17 at 17:46; Status DC Famotidine (Pepcid) 20 mg BID NG Last administered on 08/03/17 22:22; Start at 21:00 Gabapentin (Neurontin) 100 mg TID PO Last administered on 08/03/17 18:10; Start 08/02/17 at 13:00 Miscellaneous Information SPECIFIC LAB TO BE KARLA... ONCE ONCE .XX Last administered on 08/03/17 12:30; Start 08/03/17 at 11:45; Stop 08/03/17 at 11:46 ; Status DC Miscellaneous Information SPECIFIC LAB TO BE KARLA... ONCE ONCE .XX ; Start 08/03 at 10:45; Stop 08/03/17 at 10:46; Status DC Potassium Chloride (KCl) 40 meq ONCE ONCE PO Last administered on 08/03/17 13 :19; Start 08/03/17 at 11:15; Stop 08/03/17 at 11:16; Status DC Potassium Chloride (KCl) 40 meq ONCE ONCE PO Last administered on 08/03/17 15 :07; Start 08/03/17 at 15:00; Stop 08/03/17 at 15:01; Status DC Miscellaneous Information SPECIFIC LAB TO BE KARLA... 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 Aortogram with left lower extremity angiograms 2. Left SFA and popliteal artery angioplasty to 5 mm. 3. Right common femoral AngioSeal. s/p Amputation left hallux with metatarsal and medial cuneiform left foot continue IV Vancomycin till 08/27/2017- per ID- f/u with podiatry and vascular follow-up surgery as outpatient. wound vac per podiatry and ID. anemia of chronic disease; will monitor H/H Dementia; continue Aricept hypertension; continue lisinopril, hydralazine and cardizem- continue to monitor and adjust the regimen as needed. Hypokalemia; will replace DVT prophylaxis with subq Heparin. Discharge Planning dc to [facility] -likely later today- after PICC line is in place- pending H/H and potassium level. see med list. f/u; pcp,podiatry and vascular surgery. d/w the patient and RN. d/w Abhay. time spent 35 min. Alison Ceja MD Aug 04, 2017 10:03
[2017-08-04] MEDS ORDERED: HYDR-3800 PO (10:08)
--- NOTE | 2017-08-04 10:10 | HHI.DS ---
Discharge Summary Admission Date Jul 14, 2017 at 02:55 Discharge Date: Aug 04, 2017 Admitting Diagnosis Altered mental status, sepsis, possible osteomyelitis (1) Foot ulceration ICD Code: L97.509 - Non-pressure chronic ulcer of other part of unspecified foot with unspecified severity Diagnosis: Principal Status: Acute (2) Peripheral arterial disease ICD Code: I73.9 - Peripheral vascular disease, unspecified Diagnosis: Principal Status: Acute Procedures s/p 1. Aortogram with left lower extremity angiograms 2. Left SFA and popliteal artery angioplasty to 5 mm. 3. Right common femoral AngioSeal. s/p Amputation left hallux with metatarsal and medial cuneiform left foot Brief History - From Admission 71-year-old gentleman with past medical history of hypertension, COPD, hyperlipidemia, recently treated for left foot osteomyelitis, presents today with altered mental status. As per , he had taken some flexeril and 1 oxycodone this morning. However, he went to sleep at around 2:30pm and that was the last normal as per . At about 4pm, she noticed he was having difficulty breathing and also dosing off but did not decide to come to the ED until hours later. Pt had recent admission 07/02/17 for osteomyelitis of left metatarsal and had debridement and biopsy and culture by Dr. Arvizu on . Culture grew MRSA and ID recommended vancomycin however per chart documentation patient refused. In the emergency department he was too lethargic to protect his airways and was intubated by ED attending. CBC/BMP: 08/03/17 0811 08/03/17 0811 Significant Findings Laboratory Tests Test 08/01/17 10:23 08/03/17 08:11 08/03/17 12:15 Estimat Glomerular Filtration Rate 57 ML/MIN (>89) 71 ML/MIN (>89) Red Blood Count 2.79 MIL/MM3 (4.50-5.90) Hemoglobin 7.6 GM/DL (13.0-17.0) Hematocrit 22.8 % (39.0-51.0) Red Cell Distribution Width 17.6 % (11.6-17.2) Neutrophils (%) (Auto) 72.5 % (16.0-70.0) Monocytes (%) (Auto) 12.4 % (0.0-8.0) Monocytes # (Auto) 1.2 TH/MM3 (0-0.9) Random Glucose 111 MG/DL (74-106) Total Protein 6.1 GM/DL (6.4-8.2) Albumin 1.6 GM/DL (3.4-5.0) Potassium Level 2.8 MEQ/L (3.5-5.1) Vancomycin Level Trough 19.5 MCG/ML (5.0-10.0) Imaging Last Impressions Foot X-Ray 07/24/17 0000 Signed Impressions: Service Date/Time: Monday, July 24, 2017 11:21 - CONCLUSION: Postop amputation. KLuli Willis MD Chest X-Ray 07/21/17 0000 Signed Impressions: Service Date/Time: Friday, July 21, 2017 07:49 - CONCLUSION: 1. Left lower lobe atelectasis versus pneumonia. There has been no significant change when compared to the prior exam. Yo Mcbride MD Lower Extremity Ultrasound 07/18/17 0000 Signed Impressions: Service Date/Time: Tuesday, July 18, 2017 10:04 - CONCLUSION: Normal examination. Bautista Hoff MD Head CT 07/14/17 0043 Signed Impressions: Service Date/Time: Friday, July 14, 2017 02:09 - CONCLUSION: No acute intracranial abnormality is identified. Jose Miller MD Ankle X-Ray 07/14/17 0000 Signed Impressions: Service Date/Time: Friday, July 14, 2017 01:48 - CONCLUSION: No acute left ankle abnormality is identified. Jose Miller MD PE at Discharge GENERAL: This is a well-nourished, well-developed patient, in no apparent distress. CARDIOVASCULAR: Regular rate and regular rhythm without murmurs, gallops, or rubs. RESPIRATORY: Clear to auscultation. Breath sounds equal bilaterally. No wheezes , rales, or rhonchi. GASTROINTESTINAL: Abdomen soft, non-tender, nondistended. Normal, active bowel sounds MUSCULOSKELETAL: left foot covered with clean dressing. NEURO: Alert & Oriented x4 to person, place, time, situation. Moves all ext x4 Hospital Course Diabetic ischemic foot ulcer with history of MRSA wound s/p 1. Aortogram with left lower extremity angiograms 2. Left SFA and popliteal artery angioplasty to 5 mm. 3. Right common femoral AngioSeal. s/p Amputation left hallux with metatarsal and medial cuneiform left foot continue IV Vancomycin till 08/27/2017- per ID- f/u with podiatry and vascular follow-up surgery as outpatient. wound vac per podiatry and ID. anemia of chronic disease; will monitor H/H Dementia; continue Aricept hypertension; continue lisinopril, hydralazine and cardizem- continue to monitor and adjust the regimen as needed. Hypokalemia; will replace DVT prophylaxis with subq Heparin. Pt Condition on Discharge: Fair Discharge Disposition: Rehab Inpatient Discharge Time: > 30 minutes Discharge Instructions DIET: Follow Instructions for: Heart Healthy Diet, Diabetic Diet Activities you can perform: Regular-No Restrictions Follow up Referrals: PCP Follow-up Podiatry Vascular Surgery @ Vascular Surgery with García Anand MD New Medications: Hydralazine HCl (Hydralazine HCl) 50 Mg Tablet 50 MG PO Q6HR for hypertension for 30 Days, TAB 0 Refills Continued Medications: Albuterol 18 GM Inh (Ventolin Hfa 18 GM Inh) 90 Mcg/Act Aer 2 PUFF INH Q4-6H PRN for SHORTNESS OF BREATH, #1 INHALER 0 Refills Ascorbic Acid (Vitamin C) 1,000 Mg Tablet.er 1000 MG PO DAILY Aspirin (Aspirin 81 Low Dose) 81 Mg Chew 81 MG CHEW DAILY, #30 TAB 1 Refill Atorvastatin (Atorvastatin) 40 Mg Tab 40 MG PO HS for Cholesterol Management, #30 TAB 5 Refills Citalopram (Citalopram) 40 Mg Tab 60 MG PO DAILY for Control Depression, #45 TAB 6 Refills Please take 1.5 pills daily Cyclobenzaprine (Flexeril) 10 Mg Tab 10 MG PO Q8HR for Muscle Spasm, #90 TAB 0 Refills Diltiazem HCl Coated Beads (Diltiazem HCl ER) 240 Mg Cap 240 MG PO BID Donepezil (Donepezil) 10 Mg Tab 10 MG PO HS for Dementia, #30 TAB 5 Refills Ferrous Sulfate (Iron) 325 Mg Cap 325 MG PO BIDPC for Nutritional Supplement, #60 TAB 2 Refills Fluticasone-Salmeterol Inh (Advair Diskus Inh) 500-50 Mcg/Blist Aer 1 PUFF INH BID, #1 INHALER 0 Refills Rinse mouth after use. Gabapentin (Gabapentin) 100 Mg Cap 100 MG PO TID, #90 CAP 0 Refills Ipratropium-Albuterol Inh (Combivent Respimat Inh) 20-100 Snf/Act Aero 1 PUFF INH QID for Asthma Management, #1 INHALER 0 Refills Lactobacillus Acidophilus (Lactobacillus Acidophilus) 1 Tab Tab 1 TAB PO TIDAC for Nutritional Supplement, #30 TAB 0 Refills Lisinopril (Lisinopril) 40 Mg Tab 40 MG PO HS for Blood Pressure Management, #30 TAB 1 Refill Multiple Vitamins W/ Minerals (Multi Vitamin and Mineral) 1 Tab Tab 1 TAB PO DAILY Oxycodone-Acetaminophen (Oxycodone-Acetaminophen) 5-325 mg Tab 1 TAB PO Q6H PRN for PAIN, TAB 0 Refills Travoprost Opth Drops (Travatan Z Opth Drops) 0.004 % Soln 1 DROP EACH EYE HS for Glaucoma, #1 BOTTLE 5 Refills Discontinued Medications: Fluticasone Nasal [place] (Fluticasone Nasal Bulan) 50 Mcg/Act Naspr 50 MCG EACH NARE BID for Allergy Management, #1 BOTTLE 0 Refills 50 mcg/spray Alison Ceja MD Aug 04, 2017 10:09
[2017-08-04 10:37] LABS: HEMATOCRIT 24.3 % (39.0-51.0)
[2017-08-04 12:00] VITALS: BP 148/63; PULSE 60; RESP 20; TEMP 98.4; O2SAT 96
[2017-08-04] MEDS ORDERED: SODIUM CHLORIDE 0.9% FLUSH 10 ML FLUSH IV FLUSH PRN (14:15)
--- NOTE | 2017-08-04 15:41 | RADRPT ---
EXAM DATE/TIME: 08/04/2017 15:02 [facility] COMPARISON: CHEST SINGLE AP, July 21, 2017, 7:49. INDICATIONS : Right side picc line placement. MEDICAL HISTORY : Chronic obstructive pulmonary disease. Hypertension Pancreatitis. SURGICAL HISTORY : None. ENCOUNTER: Initial ACUITY: 1 month PAIN SCORE: 0/10 LOCATION: Bilateral chest FINDINGS: A single view of the chest demonstrates left basilar density. Right lung clear. Heart enlarged. The cardiomediastinal contours are unremarkable. Osseous structures are intact. CONCLUSION: Persistent left basilar density. Right-sided PICC line with tip in the SVC no pneumothorax. Gamal Solorzano MD on August 04, 2017 at 15:39 Board Certified Radiologist. This report was verified electronically.
[2017-08-05] MEDS ORDERED: SODIUM CHLORIDE 0.9% FLUSH 10 ML FLUSH IV FLUSH SCH (09:00)
[2017-08-06] MEDS ORDERED: PHARMACY ORDERED LAB ONE (11:45)
[2017-08-08] MEDS ORDERED: CYCL1TAB29 PO (11:20)
[2017-08-14] MEDS ORDERED: LATA.005%O EACH EYE (08:50)
[2017-08-14] MEDS ORDERED: OXYC1TAB63 PO (08:50)
[2017-08-14] MEDS ORDERED: COLL30T TOPICAL (08:50)
[2017-08-14] MEDS ORDERED: VANC1000P IV (08:50)
[2017-09-02] MEDS ORDERED: FENT25T T-DERMAL (09:01)
[2017-09-02] MEDS ORDERED: OXYC1TAB35 PO (09:01)
[2017-09-02] MEDS ORDERED: DILA2TAB2 PO (09:01)
[2017-09-02] MEDS ORDERED: CELE20TA PO (12:47)
[2017-09-02] MEDS ORDERED: GABA100C4 PO (12:47)
[2017-09-02] MEDS ORDERED: guaiFENesin ER PO (12:47)
[2017-09-02] MEDS ORDERED: AMLO5 PO (12:47)
[2017-09-02] MEDS ORDERED: CLON.2 PO (12:47)
[2017-09-02] MEDS ORDERED: PANT40TA3 PO (12:47)
[2017-09-02] MEDS ORDERED: LACT PO (12:47)
[2017-09-02] MEDS ORDERED: FERR325T20 PO (12:47)
[2017-09-02] MEDS ORDERED: ATOR40TA16 PO (12:47)
[2017-09-02] MEDS ORDERED: ACET1TAB86 PO (12:47)
[2017-09-02] MEDS ORDERED: ASPI-99 PO (12:47)
[2017-09-02] MEDS ORDERED: CYCL1TAB29 PO (12:47)
[2017-09-02] MEDS ORDERED: ARIC5TAB2 PO (12:47)
[2017-09-02] MEDS ORDERED: THERM PO (12:47)
[2017-09-02] MEDS ORDERED: SPIRCAP INH (12:47)
[2017-09-02] MEDS ORDERED: HYDR-3801 PO (12:47)
[2017-09-02] MEDS ORDERED: VENTAER INH (12:47)
[2017-09-02] MEDS ORDERED: LISI-515 PO (12:47)
[2017-09-02] MEDS ORDERED: COLL30T TOPICAL (12:47)
[2017-09-02] MEDS ORDERED: SYMB160A INH (12:47)
[2017-09-02] MEDS ORDERED: LATA.005%O EACH EYE (12:47)
[2017-09-02] MEDS ORDERED: VITA500T2 PO (12:47)
== END 2017-08-04 16:48 | DRG 853 ==
LOC: NEPE 00:28 → NEDA 02:55 → HIME 07:30 → N04B 07-22 19:20
PROVIDERS: ADMIT Internal Medicine; ATTEND Internal Medicine
PROC: 0BH17EZ Insertion of Endotracheal Airway into Trachea, Via Natural or Artificial Opening (ICD-10-PCS; principal; 2017-07-14)
PROC: 5A1945Z Respiratory Ventilation, 24-96 Consecutive Hours (ICD-10-PCS; 2017-07-14)
PROC: 0T9B70Z Drainage of Bladder with Drainage Device, Via Natural or Artificial Opening (ICD-10-PCS; 2017-07-14)
PROC: 047N3ZZ Dilation of Left Popliteal Artery, Percutaneous Approach (ICD-10-PCS; 2017-07-21)
PROC: B41G1ZZ Fluoroscopy of Left Lower Extremity Arteries using Low Osmolar Contrast (ICD-10-PCS; 2017-07-21)
PROC: 30233N1 Transfusion of Nonautologous Red Blood Cells into Peripheral Vein, Percutaneous Approach (ICD-10-PCS; 2017-07-21)
PROC: 047L3ZZ Dilation of Left Femoral Artery, Percutaneous Approach (ICD-10-PCS; 2017-07-21 14:20)
PROC: 0Y6N0Z9 Detachment at Left Foot, Partial 1st Ray, Open Approach (ICD-10-PCS; 2017-07-24)
PROC: 0QTM0ZZ Resection of Left Tarsal, Open Approach (ICD-10-PCS; 2017-07-24)
DX: A41.9 Sepsis, unspecified organism (principal); J96.01 Acute respiratory failure with hypoxia; G92 Toxic encephalopathy; J96.02 Acute respiratory failure with hypercapnia; J44.1 Chronic obstructive pulmonary disease with (acute) exacerbation; E11.52 Type 2 diabetes mellitus with diabetic peripheral angiopathy with gangrene; J98.11 Atelectasis; M86.60 Other chronic osteomyelitis, unspecified site; N39.0 Urinary tract infection, site not specified; F03.90 Unspecified dementia, unspecified severity, without behavioral disturbance, psychotic disturbance, mood disturbance, and anxiety; E11.40 Type 2 diabetes mellitus with diabetic neuropathy, unspecified; M19.90 Unspecified osteoarthritis, unspecified site; Z79.01 Long term (current) use of anticoagulants; Z79.82 Long term (current) use of aspirin; F41.9 Anxiety disorder, unspecified; F32.9 Major depressive disorder, single episode, unspecified; E78.00 Pure hypercholesterolemia, unspecified; Z86.73 Personal history of transient ischemic attack (TIA), and cerebral infarction without residual deficits; H91.93 Unspecified hearing loss, bilateral; I10 Essential (primary) hypertension; E11.622 Type 2 diabetes mellitus with other skin ulcer; R65.20 Severe sepsis without septic shock; L97.529 Non-pressure chronic ulcer of other part of left foot with unspecified severity; B96.5 Pseudomonas (aeruginosa) (mallei) (pseudomallei) as the cause of diseases classified elsewhere; D63.8 Anemia in other chronic diseases classified elsewhere; E11.621 Type 2 diabetes mellitus with foot ulcer; F10.21 Alcohol dependence, in remission; Z87.442 Personal history of urinary calculi; Z86.14 Personal history of Methicillin resistant Staphylococcus aureus infection; H40.9 Unspecified glaucoma; M48.00 Spinal stenosis, site unspecified; G89.29 Other chronic pain; M25.552 Pain in left hip; Z85.828 Personal history of other malignant neoplasm of skin; I48.0 Paroxysmal atrial fibrillation; Z87.891 Personal history of nicotine dependence; B95.62 Methicillin resistant Staphylococcus aureus infection as the cause of diseases classified elsewhere; Z86.19 Personal history of other infectious and parasitic diseases; Z82.49 Family history of ischemic heart disease and other diseases of the circulatory system; R00.0 Tachycardia, unspecified; L08.9 Local infection of the skin and subcutaneous tissue, unspecified; E87.6 Hypokalemia
CPT/HCPCS: 31500; 36430; 36569; 36600; 51702; 70450; 71010; 73600; 73620; 73630; 75716; 76937; 80048; 80053; 80202; 80307; 81001; 82140; 82550; 82565; 82805; 82948; 83605; 83735; 84100; 84132; 84443; 84484; 85014; 85018; 85025; 85027; 85610; 85652; 85730; 86140; 86403; 86850; 86900; 86901; 86920; 87015; 87040; 87070; 87077; 87086; 87102; 87116; 87147; 87186; 87205; 87206; 87641; 88305; 88307; 88311; 93005; 93923; 93970; 93998; 94002; 94003; 94150; 94640; 94664; 96365; 96366; 96368; 96375; C1725; C1769; J0360; J1100; J1170; J1644; J1815; J1940; J2250; J2405; J2930; J3010; J3370; J3475; J3480; J7030; J7040; J7050; P9016; Q9967

== ENCOUNTER 2017-08-08 11:32 | Inpatient (IN) | payer MEDICARE, OTHER ==
[~2017-08-08 11:32] MED LIST changes: +ADVA500A INH; -CHLO25TA2 PO; -COMMODE BEDSIDE1 MI1; -FLUT50SP EACH NARE; -HYDR-3516 PO; +HYDR-3800 PO; +IPRAAER INH; +OXYC1TAB63 PO; +VENTAER INH
[2017-08-08 12:00] VITALS: BP 222/80; PULSE 78; RESP 17; TEMP 98.5; O2SAT 95
[2017-08-08] MEDS ORDERED: Vancomycin Consult Pharmacy 1 EA OTHER PRN (12:45)
[2017-08-08] MEDS ORDERED: GLUCAGON 1 MG/ML VIAL OTHER PRN (12:45)
[2017-08-08] MEDS ORDERED: DEXTROSE 50% IN WATER 50 ML VIAL(D50) IV PUSH PRN (12:45)
[2017-08-08] MEDS ORDERED: RESP: ALBUTEROL 1.25 MG/3 ML NEB (PRN) NEB (12:45)
--- NOTE | 2017-08-08 12:48 | HHI.HP ---
[facility] Service [place] [facility] Primary Care Physician Unknown Admission Diagnosis altered mental status Diagnoses: Chief Complaint: altered mental status Travel History International Travel<30 Days: No Contact w/Intl Traveler <30 Da: No Traveled to Known Affected Are: No History of Present Illness patient is a 72 y/o male -known to me, with history of diabetes, hypertension, COPD who was recently admitted to the hospital because of altered mental status and diabetic foot ulcer. during the last admission he underwent Aortogram with left lower extremity angiograms, Left SFA and popliteal artery angioplasty and Right common femoral AngioSeal along with amputation left hallux with metatarsal and medial cuneiform left foot. he was started on IV antibiotic and discharge to acute rehab for further rehabilitation. this morning he became very lethargic and found to have an elevated blood pressure for which he was transferred back to medical floor. at the time of my evaluation he was in no acute distress. he's awake, alert and oriented although he doesn't remember what happened this morning and how he got back to medical floor. he's afebrile and denies any chest pain, sob, headache,nausea or vomiting. Review of Systems ROS Limitations: Altered Mental Status Past Family Social History Past Medical History COPD hypertension diabetic foot ulcer carotid artery disease carotid artery disease Past Surgical History recent Aortogram with left lower extremity angiograms, Left SFA and popliteal artery angioplasty and Right common femoral AngioSeal along with amputation left hallux with metatarsal and medial cuneiform left foot Reported Medications Iron (Ferrous Sulfate) 325 Mg Cap 325 Mg PO BIDPC Flexeril (Cyclobenzaprine HCl) 10 Mg Tab 10 Mg PO Q8HR Gabapentin 100 Mg Cap 100 Mg PO TID Donepezil 10 Mg Tab 10 Mg PO HS Atorvastatin (Atorvastatin Calcium) 40 Mg Tab 40 Mg PO HS Travatan Z Opth Drops (Travoprost) 0.004 % Soln 1 Drop EACH EYE HS Citalopram (Citalopram Hydrobromide) 40 Mg Tab 60 Mg PO DAILY Please take 1.5 pills daily Lisinopril 40 Mg Tab 40 Mg PO HS Aspirin 81 Low Dose (Aspirin) 81 Mg Chew 81 Mg CHEW DAILY Advair Diskus Inh (Fluticasone-Salmeterol Inh) 500-50 Mcg/Blist Aer 1 Puff INH BID Rinse mouth after use. Oxycodone-Acetaminophen 5-325 mg Tab 1 Tab PO Q6H PRN Combivent Respimat Inh (Ipratropium-Albuterol Inh) 20-100 Residential/Act Aero 1 Puff INH QID Ventolin Hfa 18 GM Inh (Albuterol Sulfate) 90 Mcg/Act Aer 2 Puff INH Q4-6H PRN Diltiazem HCl ER (Diltiazem HCl Coated Beads) 240 Mg Cap 240 Mg PO BID Vitamin C (Ascorbic Acid) 1,000 Mg Tablet.er 1,000 Mg PO DAILY Fluticasone Nasal [place] 50 Mcg/Act Naspr 50 Mcg EACH NARE BID 50 mcg/spray Lactobacillus Acidophilus 1 Tab Tab 1 Tab PO TIDAC Multi Vitamin and Mineral (Multiple Vitamins W/ Minerals) 1 Tab Tab 1 Tab PO DAILY Allergies: Coded Allergies: Sulfa (Sulfonamide Antibiotics) (Verified Allergy, Severe, Anaphylaxis, ) metronidazole (Verified Allergy, Severe, Fever, colitis, 07/07/17) While being treated for Cdiff. Doubt if true allergy. penicillin G (Verified Allergy, Severe, Anaphylaxis, 07/07/17) sulfamethoxazole (Verified Allergy, Severe, Anaphylaxis, 07/07/17) trimethoprim (Verified Allergy, Severe, Anaphylaxis, 07/07/17) erythromycin base (Verified Allergy, Intermediate, Rash, 07/07/17) MRI PRECAUTION (Verified Adverse Reaction, Severe, BLADDER STIMULATOR, ) BRAIN ONLY ON RECEIVE ONLY COIL, P.O. 01/11/17, DML meperidine (Verified Adverse Reaction, Unknown, Psychosis, 07/07/17) morphine (Verified Adverse Reaction, Unknown, Psychosis, 07/07/17) Uncoded Allergies: surgical tape (Allergy, Severe, 12/15/13) Family History not relevant to this admission. Social History no smoking or drinking. Physical Exam Physical Exam GENERAL: This is a well-nourished, well-developed patient, in no apparent distress. SKIN: No rashes, ecchymoses or lesions. Cool and dry. HEAD: Atraumatic. Normocephalic. No temporal or scalp tenderness. EYES: Pupils equal round and reactive. Extraocular motions intact. No scleral icterus. No injection or drainage. ENT: Nose without bleeding, purulent drainage or septal hematoma. Throat without erythema, tonsillar hypertrophy or exudate. Uvula midline. Airway patent. NECK: Trachea midline. No JVD or lymphadenopathy. Supple, nontender, no meningeal signs. CARDIOVASCULAR: Regular rate and rhythm without murmurs, gallops, or rubs. RESPIRATORY: Clear to auscultation. Breath sounds equal bilaterally. No wheezes , rales, or rhonchi. GASTROINTESTINAL: Abdomen soft, non-tender, nondistended. No hepato-splenomegaly , or palpable masses. No guarding. MUSCULOSKELETAL: swelling of the left arm. NEUROLOGICAL: Awake and alert. Cranial nerves II through XII intact. Motor and sensory grossly within normal limits. Five out of 5 muscle strength in all muscle groups. Normal speech. Caprini VTE Risk Assessment Caprini VTE Risk Assessment: Mod/High Risk (score >= 2) Caprini Risk Assessment Model Point Value = 1 Point Value = 2 Point Value = 3 Point Value = 5 Age 41-60 Minor surgery BMI > 25 kg/m2 Swollen legs Varicose veins or History of unexplained or recurrent spontaneous Oral contraceptives or hormone replacement Sepsis (< 1 month) Serious lung disease, including pneumonia (< 1 month) Abnormal pulmonary function Acute myocardial infarction Congestive heart failure (< 1 month) History of inflammatory bowel disease Medical patient at bed rest Age 61-74 Arthroscopic surgery Major open surgery (> 45 min) Laparoscopic surgery (> 45 min) Malignancy Confined to bed (> 72 hours) Immobilizing plaster cast Central venous access Age >= 75 History of VTE Family history of VTE Factor V Leiden Prothrombin [id number] Lupus anticoagulant Anticardiolipin antibodies Elevated serum homocysteine Heparin-induced thrombocytopenia Other congenital or acquired thrombophilia Stroke (< 1 month) Elective arthroplasty Hip, pelvis, or leg fracture Acute spinal cord injury (< 1 month) Prophylaxis Regimen Total Risk Factor Score Risk Level Prophylaxis Regimen 0-1 Low Early ambulation 2 Moderate Order ONE of the following: *Sequential Compression Device (SCD) *Heparin 5000 units SQ BID 3-4 Higher Order ONE of the following medications: *Heparin 5000 units SQ TID *Enoxaparin/Lovenox 40 mg SQ daily (WT < 150 kg, CrCl > 30 mL/min) *Enoxaparin/Lovenox 30 mg SQ daily (WT < 150 kg, CrCl > 10-29 mL/min) *Enoxaparin/Lovenox 30 mg SQ BID (WT < 150 kg, CrCl > 30 mL/min) AND/OR *Sequential Compression Device (SCD) 5 or more Highest Order ONE of the following medications: *Heparin 5000 units SQ TID (Preferred with Epidurals) *Enoxaparin/Lovenox 40 mg SQ daily (WT < 150 kg, CrCl > 30 mL/min) *Enoxaparin/Lovenox 30 mg SQ daily (WT < 150 kg, CrCl > 10-29 mL/min) *Enoxaparin/Lovenox 30 mg SQ BID (WT < 150 kg, CrCl > 30 mL/min) AND *Sequential Compression Device (SCD) Assessment and Plan Assessment and Plan A/P [facility] of altered mental status; - acute encephalopathy- now has improved UA negative- ABG was reviewed. continue with neuro-checks- check CT head and carotid doppler- will consult neurology -ischemic foot ulcer with history of MRSA wound s/p recent 1. Aortogram with left lower extremity angiograms 2. Left SFA and popliteal artery angioplasty to 5 mm. 3. Right common femoral AngioSeal. s/p recent Amputation left hallux with metatarsal and medial cuneiform left foot continue with rehab efforts. continue IV Vancomycin till 08/27/2017- per ID- f/u with podiatry and vascular as needed. left upper extremity swelling; check venous doppler to r/o DVT hypertensive urgency ; patient didn't receive his BP meds earlier today; will resume lisinopril,hydralazine and cardizem- vasotec prn will monitor and adjust the regimen as needed. anemia of chronic disease;H/H fairly stable- will monitor H/H periodically. continue ferrous sulfate. Dementia; continue Aricept COPD with no exacerbation; resumed spiriva- neb treatment as needed DVT prophylaxis with subq Heparin ( after CT head is done and reviewed). Discussed Condition With the patient and RN. the patient's . Physician Certification 2 Midnight Certification Type: Admission for Inpatient Services Order for Inpatient Services The services are ordered in accordance with Medicare regulations or non- Medicare payer requirements, as applicable. In the case of services not specified as inpatient-only, they are appropriately provided as inpatient services in accordance with the 2-midnight benchmark. Estimated LOS (days): 2 days is the estimated time the patient will need to remain in the hospital, assuming treatment plan goals are met and no additional complications. Post-Hospital Plan: Not yet determined Alison Ceja MD Aug 08, 2017 12:48
[2017-08-08] MEDS ORDERED: NON-FORMULARY DRUG (Ipratropium-Albuterol Inh (Combivent Respimat Inh) 1 PUFF) INH SCH (13:00)
[2017-08-08] MEDS: CYCLOBENZAPRINE HCL 10 MG TAB PO SCH ×2 (13:50→22:00)
[2017-08-08] MEDS: LISINOPRIL 20 MG TAB PO SCH ×2 (13:50→21:00)
[2017-08-08] MEDS: GABAPENTIN 100 MG CAP PO SCH ×2 (13:51→17:05)
[2017-08-08] MEDS: DILTIAZEM-CD 240 MG CAP ER PO SCH ×2 (13:51→21:00)
--- NOTE | 2017-08-08 15:32 | RADRPT ---
EXAM DATE/TIME: 08/08/2017 13:50 [facility] COMPARISON: No previous studies available for comparison. INDICATIONS : Transient ischemic attack. MEDICAL HISTORY : Dementia. CVA. Vertigo. COPD. Pancreatitis. Dizziness. Vomiting. Diabetes. SURGICAL HISTORY : Carotid endarterectomy.Appendectomy. Pacemaker. Oral surgery. Bladder simulator. Ltihotripsy. Left fo ot surgery. ENCOUNTER: Initial ACUITY: 1 day PAIN SCORE: 0/10 LOCATION: Bilateral neck PEAK SYSTOLIC VELOCITIES (cm/sec): ICA/CCA RATIO: Right: 1.3 Left: 1.0 ICA: Right: 98 Left: 127 CCA: Right: 82 Left: 133 ECA: Right: 209 Left: 182 VERTEBRAL: Right: 31 antegrade Left: 91 antegrade Elevated flow velocities and ICA/CCA ratios have been found to correlate with increased degrees of vessel stenosis, calculated as percentage of diameter relative to a normal segment of distal ICA/CCA FINDINGS: RIGHT CAROTID: No significant stenosis is visualized. Mild to moderate plaque is present in the carotid bulb. The wa veforms are within normal limits. LEFT CAROTID: No significant stenosis is visualized. A moderate plaque is present. The waveforms are within normal limits. The distal left internal carotid artery could not be visualized. VERTEBRAL ARTERIES: Antegrade flow is seen in both vertebral arteries. MISCELLANEOUS: None. CONCLUSION: 1. Bilateral mild to moderate plaque with less than 50% diameter stenosis by velocity criteria. 2. Elevated velocities in both external carotid arteries right greater than left. 3. Antegrade flow in both vertebral arteries. Дмитрий Hoyos MD on August 08, 2017 at 15:29 Board Certified Radiologist. This report was verified electronically.
[2017-08-08] MEDS: ENALAPRILAT 1.25 MG/ML VIAL IV PUSH PRN (15:47)
[2017-08-08 16:00] VITALS: BP 187/74; PULSE 77; RESP 19; TEMP 97.8; O2SAT 98
[2017-08-08] MEDS: INSULIN ASPART SUPPLEMENTAL SCALE SQ SCH ×2 (16:25→21:00)
[2017-08-08 16:38] LABS: BICARBONATE 28.7 MEQ/L (21.0-32.0); POTASSIUM 3.1 MEQ/L (3.5-5.1)
[2017-08-08 17:04] VITALS: BP 184/88
[2017-08-08] MEDS: hydrALAZINE HCL 50 MG TAB PO SCH (17:04)
[2017-08-08] MEDS: FERROUS SULFATE 325 MG (65 MG ELEMENTAL IRON) TAB PO SCH (17:05)
[2017-08-08] MEDS: LACTOBACILLUS ACIDOPHILUS TAB PO SCH (17:05)
[2017-08-08] MEDS: ALBUTEROL SULFATE 90 MCG/ACT HFA 8 GM INHALER INH SCH ×2 (17:05→21:00)
[2017-08-08] MEDS: ACETAMINOPHEN/HYDROcodone 325 MG/5 MG TAB PO PRN (17:13)
[2017-08-08 18:37] VITALS: BP 204/85
[2017-08-08 21:00] VITALS: BP 194/84; PULSE 76; TEMP 98.2; O2SAT 96
[2017-08-08] MEDS: DONEPEZIL HCL 5 MG TAB PO SCH (21:00)
[2017-08-08] MEDS ORDERED: LISINOPRIL 20 MG TAB PO SCH (21:00)
[2017-08-08] MEDS ORDERED: DILTIAZEM-CD 240 MG CAP ER PO SCH (21:00)
[2017-08-08] MEDS: BUDESONIDE-FORMOTEROL 160/4.5 MCG INHALER INH SCH (21:00)
[2017-08-08] MEDS: ATORVASTATIN 40 MG TAB PO SCH (21:00)
[2017-08-08] MEDS: LATANOPROST 0.005% OPHT SOLN 2.5 ML BTL EACH EYE SCH (21:00)
[2017-08-08] MEDS ORDERED: BUDESONIDE-FORMOTEROL 160/4.5 MCG INHALER INH SCH (21:00)
[2017-08-09] VITALS (12 sets, daily range): BP systolic 158–218; BP diastolic 72–97; PULSE 65–80; RESP 18–23; TEMP 98.2–98.8; O2SAT 95–98
[2017-08-09] MEDS: VANCOMYCIN INJ 1,250 MG in SODIUM CHLOR 0.9% 250 ML INJ 250 ML IV SCH ×2 (00:02→17:03)
[2017-08-09] MEDS: ENALAPRILAT 1.25 MG/ML VIAL IV PUSH PRN ×3 (02:23→15:49)
[2017-08-09] MEDS: hydrALAZINE HCL 50 MG TAB PO SCH ×5 (05:41→23:49)
[2017-08-09] MEDS: CYCLOBENZAPRINE HCL 10 MG TAB PO SCH ×3 (05:42→21:10)
[2017-08-09] MEDS: INSULIN ASPART SUPPLEMENTAL SCALE SQ SCH (08:00)
[2017-08-09] MEDS: LACTOBACILLUS ACIDOPHILUS TAB PO SCH ×3 (08:46→15:54)
[2017-08-09] MEDS: GABAPENTIN 100 MG CAP PO SCH ×3 (08:47→17:04)
[2017-08-09] MEDS: DILTIAZEM-CD 240 MG CAP ER PO SCH ×2 (08:47→21:09)
[2017-08-09] MEDS: FERROUS SULFATE 325 MG (65 MG ELEMENTAL IRON) TAB PO SCH ×2 (08:47→17:04)
[2017-08-09] MEDS: ASPIRIN 81 MG CHEW TAB CHEW SCH (08:47)
[2017-08-09] MEDS: MULTIVITAMINS/MINERALS THERAPEUTIC TAB PO SCH (08:47)
[2017-08-09] MEDS: CITALOPRAM HYDROBROMIDE 40 MG TAB PO SCH (08:48)
[2017-08-09] MEDS: ASCORBIC ACID 500 MG TAB PO SCH (08:49)
[2017-08-09] MEDS: BUDESONIDE-FORMOTEROL 160/4.5 MCG INHALER INH SCH ×3 (08:51→21:05)
[2017-08-09] MEDS: ALBUTEROL SULFATE 90 MCG/ACT HFA 8 GM INHALER INH SCH ×4 (08:52→21:05)
[2017-08-09] MEDS: TIOTROPIUM BROMIDE 18 MCG INH INH SCH (09:24)
--- NOTE | 2017-08-09 09:52 | HHI.PR ---
Subjective Remarks in no acute distress. awake and alert. pain is fairly controlled. BP still elevated. denies chest pain. d/w the RN. Objective Vitals Vital Signs Date Time Temp Pulse Resp B/P (MAP) Pulse Ox O2 Delivery O2 Flow Rate FiO2 08/09/17 08:00 98.5 79 18 218/97 (137) 96 207/94 (131) 08/09/17 05:20 98.6 68 19 189/86 (120) 96 08/09/17 02:15 65 182/81 (114) 95 08/09/17 00:15 98.8 80 23 186/89 (121) 98 08/08/17 21:00 98.2 76 194/84 (120) 96 08/08/17 18:37 204/85 (124) 08/08/17 17:04 184/88 (120) 08/08/17 16:00 97.8 77 19 187/74 (111) 98 08/08/17 12:00 98.5 78 17 222/80 (127) 95 I/O 08/08/17 08/08/17 08/08/17 08/09/17 08/09/17 08/09/17 07:00 15:00 23:00 07:00 15:00 23:00 Intake Total 500 ml 400 ml Balance 500 ml 400 ml Intake Oral 500 ml 400 ml # Voids 2 1 4 # Bowel Movements 2 0 5 Result Diagram: 08/08/17 1544 Imaging Last Impressions Carotid Artery Ultrasound 08/08/17 0000 Signed Impressions: Service Date/Time: Tuesday, August 08, 2017 13:50 - CONCLUSION: 1. Bilateral mild to moderate plaque with less than 50%% diameter stenosis by velocity criteria. 2. Elevated velocities in both external carotid arteries right greater than left. 3. Antegrade flow in both vertebral arteries. Дмитрий Hoyos MD Objective Remarks GENERAL: This is a well-nourished, well-developed patient, in no apparent distress. CARDIOVASCULAR: Regular rate and regular rhythm without murmurs, gallops, or rubs. RESPIRATORY: Clear to auscultation. Breath sounds equal bilaterally. No wheezes , rales, or rhonchi. GASTROINTESTINAL: Abdomen soft, non-tender, nondistended. Normal, active bowel sounds MUSCULOSKELETAL: Extremities without clubbing, cyanosis, or edema. NEURO: Alert & Oriented x4 to person, place, time, situation. Moves all ext x4 Medications and IVs Current Medications Dextrose (D50w (Vial) Inj) 50 ml UNSCH PRN IV PUSH HYPOGLYCEMIA-SEE COMMENTS; Start 08/08/17 at 12:45 Glucagon (Glucagon Inj) 1 mg UNSCH PRN OTHER HYPOGLYCEMIA-SEE COMMENTS; Start 08/08/17 at 12:45 Insulin Aspart (NovoLOG SUPPLEMENTAL SCALE) 1 ACHS SLIDING SCALE SQ ; Start at 17:00 Pharmacy Profile Note 0 ml @ 0 mls/hr UNSCH PRN OTHER ADJUST FOR CREATININE CLRNCE; Start 08/08/17 at 12:45 Aspirin (Aspirin Chew) 81 mg DAILY CHEW Last administered on 08/09/17 08:47; Start 08/09/17 at 09:00 Atorvastatin Calcium (Lipitor) 40 mg HS PO Last administered on 08/08/17 21:00 ; Start 08/08/17 at 21:00 Citalopram Hydrobromide (CeleXA) 60 mg DAILY PO Last administered on 08/09/17 08:48; Start 08/09/17 at 09:00 Cyclobenzaprine HCl (Flexeril) 5 mg Q8HR PO Last administered on 08/09/17 05: 42; Start 08/08/17 at 14:00 Diltiazem HCl (Cardizem Cd) 240 mg BID PO ; Start 08/08/17 at 21:00; Stop at 21:00; Status DC Donepezil HCl (Aricept) 10 mg HS PO Last administered on 08/08/17 21:00; Start 08/08/17 at 21:00 Gabapentin (Neurontin) 100 mg TID PO Last administered on 08/09/17 08:47; Start 08/08/17 at 13:00 Hydralazine HCl (Apresoline) 50 mg Q6HR PO Last administered on 08/09/17 05:41 ; Start 08/08/17 at 18:00 Lactobacillus Acidophilus (Lactinex) 1 tab TIDAC PO Last administered on 08:46; Start 08/08/17 at 17:00 Ascorbic Acid (Vitamin C) 1,000 mg DAILY PO Last administered on 08/09/17 08: 49; Start 08/09/17 at 09:00 Ferrous Sulfate (Ferrous Sulfate) 325 mg BIDPC PO Last administered on 08:47; Start 08/08/17 at 18:00 Budesonide/ Formoterol Fumarate (Symbicort 160-4.5 Inh) 2 puff BID INH ; Start 08/08/17 at 21:00; Stop 08/08/17 at 21:00; Status DC Non-Formulary Medication 1 puff QID INH ; Start 08/08/17 at 13:00; Stop at 13:25; Status DC Lisinopril (Prinivil) 40 mg HS PO ; Start 08/08/17 at 21:00; Stop 08/08/17 at 21 :00; Status DC Multivitamins/ Minerals Therapeutic (Theragran M Tab) 1 tab DAILY PO Last administered on 08/09/17 08:47; Start 08/09/17 at 09:00 Latanoprost (Xalatan 0.005% Opth Soln) 1 drop HS EACH EYE ; Start 08/08/17 at 21 :00 Acetaminophen/ Hydrocodone Bitart ([place] 5-325 Mg) 1 tab Q6H PRN PO PAIN 4-10 Last administered on 08/08/17 17:13; Start 08/08/17 at 12:45 Albuterol Sulfate (Albuterol Neb) 1.25 mg Q2HR NEB PRN NEB SHORTNESS OF BREATH Last administered on 08/09/17 01:23; Start 08/08/17 at 12:45 Enalaprilat (Vasotec Inj) 1.25 mg Q6H PRN IV PUSH SBP> OR = 180, DBP> OR = 100 Last administered on 08/09/17 08:50; Start 08/08/17 at 13:00 Diltiazem HCl (Cardizem Cd) 240 mg BID PO Last administered on 08/09/17 08:47 ; Start 08/08/17 at 13:00 Lisinopril (Prinivil) 40 mg HS PO Last administered on 08/08/17 21:00; Start 08/08/17 at 13:00 Tiotropium [place] (Spiriva Inh) 18 mcg DAILY INH Last administered on 09:24; Start 08/09/17 at 09:00 Albuterol Sulfate (Proair Hfa Inh) 2 puff QID INH Last administered on 08:52; Start 08/08/17 at 18:00 Vancomycin HCl 1250 mg/Sodium Chloride 262.5 ml @ 250 mls/hr Q18H IV Last administered on 08/09/17 00:02; Start 08/09/17 at 00:00 Budesonide/ Formoterol Fumarate (Symbicort 160-4.5 Inh) 2 puff BID INH Last administered on 08/08/17 21:00; Start 08/08/17 at 21:00 A/P Assessment and Plan A/P - acute encephalopathy- now has resolved. CT head with no acute abnormality. UA negative- ABG was reviewed. continue with neuro-checks- neurology consult pending. -ischemic foot ulcer with history of MRSA wound s/p recent 1. Aortogram with left lower extremity angiograms 2. Left SFA and popliteal artery angioplasty to 5 mm. 3. Right common femoral AngioSeal. s/p recent Amputation left hallux with metatarsal and medial cuneiform left foot continue with rehab efforts. continue IV Vancomycin till 08/27/2017- per ID- f/u with podiatry and vascular as needed. left upper extremity swelling; venous doppler negative for DVT hypertensive urgency ; resumed lisinopril,hydralazine and cardizem- one dose of procardia today.vasotec prn will monitor and adjust the regimen as needed. anemia of chronic disease;H/H fairly stable- will monitor H/H periodically. continue ferrous sulfate. Dementia; continue Aricept COPD with no exacerbation; resumed spiriva- neb treatment as needed DVT prophylaxis with subq Heparin . Alison Ceja MD Aug 09, 2017 09:52
[2017-08-09] MEDS ORDERED: NIFEdipine 30 MG SUSTAINED RELEASE TAB PO ONE (11:00)
--- NOTE | 2017-08-09 12:57 | MB ---
cc: DAMARI KANG M.D. DATE OF CONSULTATION: 08/09/2017 REASON FOR CONSULTATION: HISTORY OF PRESENT ILLNESS: Mr. Garcia is a 72 year-old male seen for neurological consultation today. He was seen because of altered mental status. He was in the hospital recently for diabetic foot ulcer and an orthogram showed vascular disease requiring left fem popliteal artery angiopathy and right common femoral Angioseal along with amputation of the left hallux. He subsequently went to rehab where he stayed between the and the , and yesterday he came back to the regular floor because of the lethargy state that has improved. There is a history of some degree of dementia and he has been on Aricept. CT brain without contrast and carotid ultrasound study showing no significant abnormalities. The patient admits to mini strokes in the past and he is vague about this. There is also a history of some degree of dementia as discussed above. MEDICATIONS: The medication list includes: 1. Flexeril. 2. Gabapentin. 3. Donepezil. 4. Atorvastatin. 5. Citalopram. 6. Lisinopril. 7. Aspirin. 8. Oxycodone p.r.n. 9. Combivent. 10. Ventolin. 11. Diltiazem. 12. Fluticasone. 13. Vitamins. PHYSICAL EXAMINATION: On exam the patient was awake, alert and he was actually oriented to the date, provided background information but at times he just could not answer some simple questions and he admits that his mind is at times foggy. He is moving all extremities but there is some mild left-sided weakness and the reflexes were 1 to 2+ at the elbows and knees but absent at the right ankle. There was band-aids around the left foot. The right plantar response is flexor. There is question of some slight nasal labial flattening on the right side. ASSESSMENT/PLAN: Acute and chronic encephalopathy. This patient appears to have some degree of dementia, though appears to be mild and yesterday became more encephalopathic, lethargic while in the rehab floor. The CT brain and carotid ultrasound showing no real significant abnormalities, nothing acute. He seems to be back to baseline. Wonder if medication has been a factor. Will try to reduce central nervous system medications on him. He is on citalopram total of 60 mg a day, donepezil which could be continued but would consider eliminating the Flexeril. Avoid pain killers if possible. If needed, will be happy to reassess him. Thank you for asking us to participate in his care. Damari Kang MD [facility] /11:13 AM /12:32 PM
[2017-08-09] MEDS: HEPARIN SODIUM - SQ 10,000 UNITS/ML VIAL SQ SCH ×2 (13:11→21:10)
[2017-08-09] MEDS ORDERED: cloNIDine HCL 0.1 MG TAB PO ONE (13:15)
[2017-08-09] MEDS: cloNIDine HCL 0.1 MG TAB PO SCH (17:59)
[2017-08-09] MEDS: LATANOPROST 0.005% OPHT SOLN 2.5 ML BTL EACH EYE SCH (21:05)
[2017-08-09] MEDS: ATORVASTATIN 40 MG TAB PO SCH (21:09)
[2017-08-09] MEDS: DONEPEZIL HCL 5 MG TAB PO SCH (21:09)
[2017-08-09] MEDS ORDERED: POTASSIUM CHLOR 20 MEQ PREMIX 100 ML IV SCH (21:45)
[2017-08-09] MEDS ORDERED: POTASSIUM CHLORIDE 25 MEQ EFFERVESCENT TAB PO ONE (21:45)
[2017-08-09] MEDS: LISINOPRIL 20 MG TAB PO SCH (21:51)
[2017-08-09] MEDS: ACETAMINOPHEN/HYDROcodone 325 MG/5 MG TAB PO PRN (21:51)
[2017-08-09] MEDS ORDERED: SODIUM CHLOR 0.9% IV ONE (23:15)
[2017-08-09] MEDS ORDERED: POTASSIUM CHLORIDE IV ONE (23:15)
[2017-08-10] VITALS (9 sets, daily range): BP systolic 113–163; BP diastolic 56–74; PULSE 61–85; RESP 19–20; TEMP 97.5–98.6; O2SAT 94–99
[2017-08-10] MEDS: hydrALAZINE HCL 50 MG TAB PO SCH ×3 (06:51→17:22)
[2017-08-10] MEDS: LACTOBACILLUS ACIDOPHILUS TAB PO SCH ×3 (06:52→17:22)
[2017-08-10] MEDS: CYCLOBENZAPRINE HCL 10 MG TAB PO SCH ×3 (06:52→21:41)
[2017-08-10] MEDS: HEPARIN SODIUM - SQ 10,000 UNITS/ML VIAL SQ SCH ×3 (06:52→21:40)
[2017-08-10] MEDS: cloNIDine HCL 0.1 MG TAB PO SCH ×2 (06:52→17:22)
[2017-08-10 07:04] LABS: AUTOMATED NEUTROPHIL # 8.6 TH/MM3 (1.8-7.7); BASOPHIL # 0.1 TH/MM3 (0-0.2); BASOPHIL % 0.6 % (0.0-2.0); EOSINOPHIL # 0.4 TH/MM3 (0-0.4); EOSINOPHIL % 3.7 % (0.0-4.0); HEMATOCRIT 25.7 % (39.0-51.0); HEMO FLAGS DIFF FINAL; LYMPH % 15.6 % (9.0-44.0); LYMPHOCYTE # 1.9 TH/MM3 (1.0-4.8); MEAN CELL VOLUME 80.5 FL (80.0-100.0); MEAN CORPUSCULAR HEMOGLOBIN 26.3 PG (27.0-34.0); MEAN CORPUSCULAR HGB CONC 32.6 % (32.0-36.0); MONO % 8.4 % (0.0-8.0); NEUT % 71.7 % (16.0-70.0); PLATELET COUNT 453 TH/MM3 (150-450); RED BLOOD COUNT 3.19 MIL/MM3 (4.50-5.90)
[2017-08-10 07:31] LABS: BICARBONATE 32.3 MEQ/L (21.0-32.0); POTASSIUM 3.5 MEQ/L (3.5-5.1)
[2017-08-10] MEDS: CITALOPRAM HYDROBROMIDE 40 MG TAB PO SCH (08:22)
[2017-08-10] MEDS: DILTIAZEM-CD 240 MG CAP ER PO SCH ×2 (08:23→21:40)
[2017-08-10] MEDS: MULTIVITAMINS/MINERALS THERAPEUTIC TAB PO SCH (08:23)
[2017-08-10] MEDS: ASCORBIC ACID 500 MG TAB PO SCH (08:23)
[2017-08-10] MEDS: FERROUS SULFATE 325 MG (65 MG ELEMENTAL IRON) TAB PO SCH ×2 (08:23→17:22)
[2017-08-10] MEDS: GABAPENTIN 100 MG CAP PO SCH ×3 (08:23→17:22)
[2017-08-10] MEDS: TIOTROPIUM BROMIDE 18 MCG INH INH SCH (08:23)
[2017-08-10] MEDS: ALBUTEROL SULFATE 90 MCG/ACT HFA 8 GM INHALER INH SCH ×4 (08:23→21:00)
[2017-08-10] MEDS: ASPIRIN 81 MG CHEW TAB CHEW SCH (08:23)
[2017-08-10] MEDS: BUDESONIDE-FORMOTEROL 160/4.5 MCG INHALER INH SCH ×2 (08:24→21:00)
--- NOTE | 2017-08-10 09:55 | HHI.PR ---
Subjective Remarks resting comfortably with no distress. pain is controlled. no new complaints. BP has much improved. d/w the RN and no acute issues over night. Objective Vitals Vital Signs Date Time Temp Pulse Resp B/P (MAP) Pulse Ox O2 Delivery O2 Flow Rate FiO2 08/10/17 08:56 94 08/10/17 08:00 98.5 65 20 131/60 (83) 94 08/10/17 05:46 98.0 73 19 128/61 (83) 95 08/10/17 02:00 71 08/10/17 00:00 98.6 85 19 113/56 (75) 94 08/09/17 20:00 98.7 71 18 158/72 (100) 95 08/09/17 16:58 204/84 (124) 08/09/17 16:00 98.2 71 18 182/81 (114) 96 08/09/17 14:32 174/72 (106) 08/09/17 12:21 194/82 (119) 08/09/17 12:00 98.4 71 18 198/86 (123) 96 08/09/17 10:32 190/82 (118) I/O 08/09/17 08/09/17 08/09/17 08/10/17 08/10/17 08/10/17 07:00 15:00 23:00 07:00 15:00 23:00 Intake Total 400 ml 1210 ml 270 ml Output Total 1650 ml 200 ml Balance 400 ml -440 ml 70 ml Intake Oral 400 ml 960 ml IV Total 250 ml 270 ml Output Urine Total 1650 ml 200 ml # Voids 4 4 # Bowel Movements 5 2 0 Result Diagram: 08/10/17 0645 08/10/17 0645 Imaging Last Impressions Carotid Artery Ultrasound 08/08/17 0000 Signed Impressions: Service Date/Time: Tuesday, August 08, 2017 13:50 - CONCLUSION: 1. Bilateral mild to moderate plaque with less than 50%% diameter stenosis by velocity criteria. 2. Elevated velocities in both external carotid arteries right greater than left. 3. Antegrade flow in both vertebral arteries. Дмитрий Hoyos MD Objective Remarks GENERAL: This is a well-nourished, well-developed patient, in no apparent distress. CARDIOVASCULAR: Regular rate and regular rhythm without murmurs, gallops, or rubs. RESPIRATORY: Clear to auscultation. Breath sounds equal bilaterally. No wheezes , rales, or rhonchi. GASTROINTESTINAL: Abdomen soft, non-tender, nondistended. Normal, active bowel sounds MUSCULOSKELETAL: Extremities without clubbing, cyanosis, or edema. NEURO: Alert & Oriented x4 to person, place, time, situation. Moves all ext x4 Medications and IVs Current Medications Dextrose (D50w (Vial) Inj) 50 ml UNSCH PRN IV PUSH HYPOGLYCEMIA-SEE COMMENTS; Start 08/08/17 at 12:45 Glucagon (Glucagon Inj) 1 mg UNSCH PRN OTHER HYPOGLYCEMIA-SEE COMMENTS; Start 08/08/17 at 12:45 Insulin Aspart (NovoLOG SUPPLEMENTAL SCALE) 1 ACHS SLIDING SCALE SQ ; Start at 17:00; Stop 08/09/17 at 09:56; Status DC Pharmacy Profile Note 0 ml @ 0 mls/hr UNSCH PRN OTHER ADJUST FOR CREATININE CLRNCE; Start 08/08/17 at 12:45 Aspirin (Aspirin Chew) 81 mg DAILY CHEW Last administered on 08/10/17 08:23; Start 08/09/17 at 09:00 Atorvastatin Calcium (Lipitor) 40 mg HS PO Last administered on 08/09/17 21:09 ; Start 08/08/17 at 21:00 Citalopram Hydrobromide (CeleXA) 60 mg DAILY PO Last administered on 08/10/17 08:22; Start 08/09/17 at 09:00 Cyclobenzaprine HCl (Flexeril) 5 mg Q8HR PO Last administered on 08/10/17 06: 52; Start 08/08/17 at 14:00 Diltiazem HCl (Cardizem Cd) 240 mg BID PO ; Start 08/08/17 at 21:00; Stop at 21:00; Status DC Donepezil HCl (Aricept) 10 mg HS PO Last administered on 08/09/17 21:09; Start 08/08/17 at 21:00 Gabapentin (Neurontin) 100 mg TID PO Last administered on 08/10/17 08:23; Start 08/08/17 at 13:00 Hydralazine HCl (Apresoline) 50 mg Q6HR PO Last administered on 08/10/17 06:51 ; Start 08/08/17 at 18:00 Lactobacillus Acidophilus (Lactinex) 1 tab TIDAC PO Last administered on 06:52; Start 08/08/17 at 17:00 Ascorbic Acid (Vitamin C) 1,000 mg DAILY PO Last administered on 08/10/17 08: 23; Start 08/09/17 at 09:00 Ferrous Sulfate (Ferrous Sulfate) 325 mg BIDPC PO Last administered on 08:23; Start 08/08/17 at 18:00 Budesonide/ Formoterol Fumarate (Symbicort 160-4.5 Inh) 2 puff BID INH ; Start 08/08/17 at 21:00; Stop 08/08/17 at 21:00; Status DC Non-Formulary Medication 1 puff QID INH ; Start 08/08/17 at 13:00; Stop at 13:25; Status DC Lisinopril (Prinivil) 40 mg HS PO ; Start 08/08/17 at 21:00; Stop 08/08/17 at 21 :00; Status DC Multivitamins/ Minerals Therapeutic (Theragran M Tab) 1 tab DAILY PO Last administered on 08/10/17 08:23; Start 08/09/17 at 09:00 Latanoprost (Xalatan 0.005% Opt Soln) 1 drop HS EACH EYE Last administered on 08/09/17 21:05; Start 08/08/17 at 21:00 Acetaminophen/ Hydrocodone Bitart ([place] 5-325 Mg) 1 tab Q6H PRN PO PAIN 4-10 Last administered on 08/09/17 21:51; Start 08/08/17 at 12:45 Albuterol Sulfate (Albuterol Neb) 1.25 mg Q2HR NEB PRN NEB SHORTNESS OF BREATH Last administered on 08/09/17 01:23; Start 08/08/17 at 12:45 Enalaprilat (Vasotec Inj) 1.25 mg Q6H PRN IV PUSH SBP> OR = 180, DBP> OR = 100 Last administered on 08/09/17 15:49; Start 08/08/17 at 13:00 Diltiazem HCl (Cardizem Cd) 240 mg BID PO Last administered on 08/10/17 08:23 ; Start 08/08/17 at 13:00 Lisinopril (Prinivil) 40 mg HS PO Last administered on 08/09/17 21:51; Start 08/08/17 at 13:00 Tiotropium [place] (Spiriva Inh) 18 mcg DAILY INH Last administered on 08:23; Start 08/09/17 at 09:00 Albuterol Sulfate (Proair Hfa Inh) 2 puff QID INH Last administered on 08:23; Start 08/08/17 at 18:00 Vancomycin HCl 1250 mg/Sodium Chloride 262.5 ml @ 250 mls/hr Q18H IV Last administered on 08/09/17 17:03; Start 08/09/17 at 00:00 Budesonide/ Formoterol Fumarate (Symbicort 160-4.5 Inh) 2 puff BID INH Last administered on 08/10/17 08:24; Start 08/08/17 at 21:00 Nifedipine (Procardia Xl) 30 mg ONCE ONCE PO Last administered on 08/09/17 10 :42; Start 08/09/17 at 11:00; Stop 08/09/17 at 11:01; Status DC Heparin Sodium (Porcine) (Heparin Inj) 5,000 units Q8HR SQ Last administered on 08/10/17 06:52; Start 08/09/17 at 14:00 Clonidine (Catapres) 0.1 mg NOW ONCE PO Last administered on 08/09/17 13:10; Start 08/09/17 at 13:15; Stop 08/09/17 at 13:16; Status DC Clonidine (Catapres) 0.1 mg Q12H PO Last administered on 08/10/17 06:52; Start 08/09/17 at 18:00 Potassium Chloride 100 ml @ 50 mls/hr Q2H IV ; Start 08/09/17 at 21:45; Stop at 01:44; Status Cancel Potassium Bicarb/ Potassium Chloride (K-Lyte Cl Eff) 50 meq ONCE ONCE PO Last administered on 08/09/17 23:50; Start 08/09/17 at 21:45; Stop 08/09/17 at 21:49; Status DC Potassium Chloride 40 meq/ Sodium Chloride 270 ml @ 54 mls/hr ONCE ONCE IV Last administered on 08/09/17t 23:49; Start 08/09/17 at 23:15; Stop 08/10/17 at 04:14; Status DC A/P Assessment and Plan A/P - acute encephalopathy- now has resolved. CT head with no acute abnormality. UA negative- ABG was reviewed. carotid doppler with less than 50% stenosis- continue with neuro-checks- neurology consult appreciated. -ischemic foot ulcer with history of MRSA wound s/p recent 1. Aortogram with left lower extremity angiograms 2. Left SFA and popliteal artery angioplasty to 5 mm. 3. Right common femoral AngioSeal. s/p recent Amputation left hallux with metatarsal and medial cuneiform left foot continue with rehab efforts. continue IV Vancomycin till 08/27/2017- per ID- podiatry was reconsulted for follow-up- f/u with vascular surgery as needed. left upper extremity swelling; venous doppler negative for DVT hypertensive urgency - has resolved; resumed lisinopril,hydralazine and cardizem- clonidine was added. will monitor and adjust the regimen as needed. anemia of chronic disease;H/H fairly stable- will monitor H/H periodically. continue ferrous sulfate. Dementia; continue Aricept hypokalemia; replaced. COPD with no exacerbation; resumed spiriva- neb treatment as needed consult PT/OT. DVT prophylaxis with subq Heparin . Discharge Planning dc to rehab tomorrow if BP remains stable. Alison Ceja MD Aug 10, 2017 09:55
[2017-08-10] MEDS: VANCOMYCIN INJ 1,250 MG in SODIUM CHLOR 0.9% 250 ML INJ 250 ML IV SCH (11:54)
[2017-08-10] MEDS: LATANOPROST 0.005% OPHT SOLN 2.5 ML BTL EACH EYE SCH (21:00)
[2017-08-10] MEDS: ACETAMINOPHEN/HYDROcodone 325 MG/5 MG TAB PO PRN (21:40)
[2017-08-10] MEDS: DONEPEZIL HCL 5 MG TAB PO SCH (21:41)
[2017-08-10] MEDS: LISINOPRIL 20 MG TAB PO SCH (21:41)
[2017-08-10] MEDS: ATORVASTATIN 40 MG TAB PO SCH (21:41)
[2017-08-11] VITALS (9 sets, daily range): BP systolic 135–165; BP diastolic 60–74; PULSE 59–73; RESP 16–20; TEMP 97.5–98.8; O2SAT 95–97
[2017-08-11] MEDS: hydrALAZINE HCL 50 MG TAB PO SCH ×4 (01:14→18:03)
[2017-08-11] MEDS: ACETAMINOPHEN/HYDROcodone 325 MG/5 MG TAB PO PRN ×3 (03:11→18:44)
[2017-08-11] MEDS: HEPARIN SODIUM - SQ 10,000 UNITS/ML VIAL SQ SCH ×3 (05:34→22:10)
[2017-08-11] MEDS: cloNIDine HCL 0.1 MG TAB PO SCH ×2 (05:34→18:03)
[2017-08-11] MEDS: CYCLOBENZAPRINE HCL 10 MG TAB PO SCH ×3 (05:34→22:10)
[2017-08-11] MEDS: VANCOMYCIN INJ 1,250 MG in SODIUM CHLOR 0.9% 250 ML INJ 250 ML IV SCH (05:35)
[2017-08-11] MEDS: CITALOPRAM HYDROBROMIDE 40 MG TAB PO SCH (08:44)
[2017-08-11] MEDS: DILTIAZEM-CD 240 MG CAP ER PO SCH ×2 (08:44→22:10)
[2017-08-11] MEDS: ASPIRIN 81 MG CHEW TAB CHEW SCH (08:45)
[2017-08-11] MEDS: GABAPENTIN 100 MG CAP PO SCH ×3 (08:45→18:03)
[2017-08-11] MEDS: FERROUS SULFATE 325 MG (65 MG ELEMENTAL IRON) TAB PO SCH ×2 (08:45→18:03)
[2017-08-11] MEDS: MULTIVITAMINS/MINERALS THERAPEUTIC TAB PO SCH (08:45)
[2017-08-11] MEDS: ASCORBIC ACID 500 MG TAB PO SCH (08:45)
[2017-08-11] MEDS: LACTOBACILLUS ACIDOPHILUS TAB PO SCH ×3 (08:45→18:03)
--- NOTE | 2017-08-11 10:17 | HHI.PR ---
Subjective Remarks is fairly comfortable. in no distress. awake and alert. pain is fairly controlled. no fever. Objective Vitals Vital Signs Date Time Temp Pulse Resp B/P (MAP) Pulse Ox O2 Delivery O2 Flow Rate FiO2 08/11/17 08:00 98.1 59 20 135/63 (87) 96 08/11/17 04:00 97.5 59 18 137/65 (89) 95 08/11/17 00:00 98.7 63 18 150/64 (92) 96 08/10/17 20:00 98.5 62 20 128/60 (82) 97 08/10/17 17:59 99 08/10/17 16:00 97.5 61 20 163/74 (103) 99 08/10/17 12:00 98.2 72 20 123/59 (80) 97 I/O 08/10/17 08/10/17 08/10/17 08/11/17 08/11/17 08/11/17 07:00 15:00 23:00 07:00 15:00 23:00 Intake Total 270 ml 240 ml Output Total 200 ml 1550 ml 700 ml Balance 70 ml -1310 ml -700 ml Intake Oral 240 ml IV Total 270 ml Output Urine Total 200 ml 1550 ml 700 ml # Bowel Movements 0 1 1 Result Diagram: 08/10/17 0645 08/11/17 0540 Imaging Last Impressions Carotid Artery Ultrasound 08/08/17 0000 Signed Impressions: Service Date/Time: Tuesday, August 08, 2017 13:50 - CONCLUSION: 1. Bilateral mild to moderate plaque with less than 50%% diameter stenosis by velocity criteria. 2. Elevated velocities in both external carotid arteries right greater than left. 3. Antegrade flow in both vertebral arteries. Дмитрий Hooys MD Objective Remarks GENERAL: This is a well-nourished, well-developed patient, in no apparent distress. CARDIOVASCULAR: Regular rate and regular rhythm without murmurs, gallops, or rubs. RESPIRATORY: Clear to auscultation. Breath sounds equal bilaterally. No wheezes , rales, or rhonchi. GASTROINTESTINAL: Abdomen soft, non-tender, nondistended. Normal, active bowel sounds MUSCULOSKELETAL: Extremities without clubbing, cyanosis, or edema. NEURO: Alert & Oriented x4 to person, place, time, situation. Moves all ext x4 Procedures none Medications and IVs Current Medications Dextrose (D50w (Vial) Inj) 50 ml UNSCH PRN IV PUSH HYPOGLYCEMIA-SEE COMMENTS; Start 08/08/17 at 12:45 Glucagon (Glucagon Inj) 1 mg UNSCH PRN OTHER HYPOGLYCEMIA-SEE COMMENTS; Start 08/08/17 at 12:45 Insulin Aspart (NovoLOG SUPPLEMENTAL SCALE) 1 ACHS SLIDING SCALE SQ ; Start at 17:00; Stop 08/09/17 at 09:56; Status DC Pharmacy Profile Note 0 ml @ 0 mls/hr UNSCH PRN OTHER ADJUST FOR CREATININE CLRNCE; Start 08/08/17 at 12:45 Aspirin (Aspirin Chew) 81 mg DAILY CHEW Last administered on 08/11/17 08:45; Start 08/09/17 at 09:00 Atorvastatin Calcium (Lipitor) 40 mg HS PO Last administered on 08/10/17 21:41 ; Start 08/08/17 at 21:00 Citalopram Hydrobromide (CeleXA) 60 mg DAILY PO Last administered on 08/11/17 08:44; Start 08/09/17 at 09:00 Cyclobenzaprine HCl (Flexeril) 5 mg Q8HR PO Last administered on 08/11/17 05: 34; Start 08/08/17 at 14:00 Diltiazem HCl (Cardizem Cd) 240 mg BID PO ; Start 08/08/17 at 21:00; Stop at 21:00; Status DC Donepezil HCl (Aricept) 10 mg HS PO Last administered on 08/10/17 21:41; Start 08/08/17 at 21:00 Gabapentin (Neurontin) 100 mg TID PO Last administered on 08/11/17 08:45; Start 08/08/17 at 13:00 Hydralazine HCl (Apresoline) 50 mg Q6HR PO Last administered on 08/11/17 05:34 ; Start 08/08/17 at 18:00 Lactobacillus Acidophilus (Lactinex) 1 tab TIDAC PO Last administered on 08:45; Start 08/08/17 at 17:00 Ascorbic Acid (Vitamin C) 1,000 mg DAILY PO Last administered on 08/11/17 08: 45; Start 08/09/17 at 09:00 Ferrous Sulfate (Ferrous Sulfate) 325 mg BIDPC PO Last administered on 08:45; Start 08/08/17 at 18:00 Budesonide/ Formoterol Fumarate (Symbicort 160-4.5 Inh) 2 puff BID INH ; Start 08/08/17 at 21:00; Stop 08/08/17 at 21:00; Status DC Non-Formulary Medication 1 puff QID INH ; Start 08/08/17 at 13:00; Stop at 13:25; Status DC Lisinopril (Prinivil) 40 mg HS PO ; Start 08/08/17 at 21:00; Stop 08/08/17 at 21 :00; Status DC Multivitamins/ Minerals Therapeutic (Theragran M Tab) 1 tab DAILY PO Last administered on 08/11/17 08:45; Start 08/09/17 at 09:00 Latanoprost (Xalatan 0.005% Opth Soln) 1 drop HS EACH EYE Last administered on 08/10/17 21:00; Start 08/08/17 at 21:00 Acetaminophen/ Hydrocodone Bitart ([place] 5-325 Mg) 1 tab Q6H PRN PO PAIN 4-10 Last administered on 08/11/17 03:11; Start 08/08/17 at 12:45 Albuterol Sulfate (Albuterol Neb) 1.25 mg Q2HR NEB PRN NEB SHORTNESS OF BREATH Last administered on 08/09/17 01:23; Start 08/08/17 at 12:45 Enalaprilat (Vasotec Inj) 1.25 mg Q6H PRN IV PUSH SBP> OR = 180, DBP> OR = 100 Last administered on 08/09/17 15:49; Start 08/08/17 at 13:00 Diltiazem HCl (Cardizem Cd) 240 mg BID PO Last administered on 08/11/17 08:44 ; Start 08/08/17 at 13:00 Lisinopril (Prinivil) 40 mg HS PO Last administered on 08/10/17 21:41; Start 08/08/17 at 13:00 Tiotropium [place] (Spiriva Inh) 18 mcg DAILY INH Last administered on 08:23; Start 08/09/17 at 09:00 Albuterol Sulfate (Proair Hfa Inh) 2 puff QID INH Last administered on 17:22; Start 08/08/17 at 18:00 Vancomycin HCl 1250 mg/Sodium Chloride 262.5 ml @ 250 mls/hr Q18H IV Last administered on 08/11/17 05:35; Start 08/09/17 at 00:00 Budesonide/ Formoterol Fumarate (Symbicort 160-4.5 Inh) 2 puff BID INH Last administered on 08/10/17 08:24; Start 08/08/17 at 21:00 Nifedipine (Procardia Xl) 30 mg ONCE ONCE PO Last administered on 08/09/17 10 :42; Start 08/09/17 at 11:00; Stop 08/09/17 at 11:01; Status DC Heparin Sodium (Porcine) (Heparin Inj) 5,000 units Q8HR SQ Last administered on 08/11/17 05:34; Start 08/09/17 at 14:00 Clonidine (Catapres) 0.1 mg NOW ONCE PO Last administered on 08/09/17 13:10; Start 08/09/17 at 13:15; Stop 08/09/17 at 13:16; Status DC Clonidine (Catapres) 0.1 mg Q12H PO Last administered on 08/11/17 05:34; Start 08/09/17 at 18:00 Potassium Chloride 100 ml @ 50 mls/hr Q2H IV ; Start 08/09/17 at 21:45; Stop at 01:44; Status Cancel Potassium Bicarb/ Potassium Chloride (K-Lyte Cl Eff) 50 meq ONCE ONCE PO Last administered on 08/09/17 23:50; Start 08/09/17 at 21:45; Stop 08/09/17 at 21:49; Status DC Potassium Chloride 40 meq/ Sodium Chloride 270 ml @ 54 mls/hr ONCE ONCE IV Last administered on 08/09/17 23:49; Start 08/09/17 at 23:15; Stop 08/10/17 at 04:14; Status DC A/P Assessment and Plan A/P - acute encephalopathy- now has resolved. CT head with no acute abnormality. UA negative- ABG was reviewed. carotid doppler with less than 50% stenosis- neurology consult appreciated. -ischemic foot ulcer with history of MRSA wound s/p recent 1. Aortogram with left lower extremity angiograms 2. Left SFA and popliteal artery angioplasty to 5 mm. 3. Right common femoral AngioSeal. s/p recent Amputation left hallux with metatarsal and medial cuneiform left foot continue with rehab efforts. continue IV Vancomycin till 08/27/2017- per ID- f/u with podiatry and vascular surgery as needed. left upper extremity swelling; venous doppler negative for DVT hypertensive urgency - has resolved; resumed lisinopril,hydralazine and cardizem- clonidine was added. will monitor and adjust the regimen as needed. anemia of chronic disease;H/H fairly stable- will monitor H/H periodically. continue ferrous sulfate. Dementia; continue Aricept hypokalemia; replaced. COPD with no exacerbation; resumed spiriva- neb treatment as needed consult PT/OT. DVT prophylaxis with subq Heparin . Discharge Planning awaiting podiatry re-evaluation. Alison Ceja MD Aug 11, 2017 10:17
[2017-08-11] MEDS ORDERED: SPIRCAP INH (10:19)
[2017-08-11] MEDS ORDERED: HEPA10003 SQ (10:19)
--- NOTE | 2017-08-11 10:21 | HHI.DS ---
Discharge Summary Admission Date Aug 08, 2017 at 12:12 Discharge Date: Aug 13, 2017 Admitting Diagnosis altered mental status (1) Foot ulceration ICD Code: L97.509 - Non-pressure chronic ulcer of other part of unspecified foot with unspecified severity Status: Acute Procedures none Brief History - From Admission patient is a 72 y/o male -known to me, with history of diabetes, hypertension, COPD who was recently admitted to the hospital because of altered mental status and diabetic foot ulcer. during the last admission he underwent Aortogram with left lower extremity angiograms, Left SFA and popliteal artery angioplasty and Right common femoral AngioSeal along with amputation left hallux with metatarsal and medial cuneiform left foot. he was started on IV antibiotic and discharge to acute rehab for further rehabilitation. this morning he became very lethargic and found to have an elevated blood pressure for which he was transferred back to medical floor. at the time of my evaluation he was in no acute distress. he's awake, alert and oriented although he doesn't remember what happened this morning and how he got back to medical floor. he's afebrile and denies any chest pain, sob, headache,nausea or vomiting. CBC/BMP: 08/10/17 0645 08/11/17 0540 Significant Findings Laboratory Tests Test 08/08/17 15:44 08/09/17 19:15 08/10/17 06:45 08/11/17 05:40 Random Glucose 185 MG/DL (74-106) 140 MG/DL (74-106) Calcium Level 8.4 MG/DL (8.5-10.1) 8.1 MG/DL (8.5-10.1) Potassium Level 3.1 MEQ/L (3.5-5.1) 2.8 MEQ/L (3.5-5.1) Estimat Glomerular Filtration Rate 68 ML/MIN (>89) 80 ML/MIN (>89) 71 ML/MIN (>89) White Blood Count 12.0 TH/MM3 (4.0-11.0) Red Blood Count 3.19 MIL/MM3 (4.50-5.90) Hemoglobin 8.4 GM/DL (13.0-17.0) Hematocrit 25.7 % (39.0-51.0) Mean Corpuscular Hemoglobin 26.3 PG (27.0-34.0) Red Cell Distribution Width 18.0 % (11.6-17.2) Platelet Count 453 TH/MM3 (150-450) Mean Platelet Volume 6.9 FL (7.0-11.0) Neutrophils (%) (Auto) 71.7 % (16.0-70.0) Monocytes (%) (Auto) 8.4 % (0.0-8.0) Neutrophils # (Auto) 8.6 TH/MM3 (1.8-7.7) Monocytes # (Auto) 1.0 TH/MM3 (0-0.9) Carbon Dioxide Level 32.3 MEQ/L (21.0-32.0) Anion Gap 4 MEQ/L (5-15) Imaging Last Impressions Carotid Artery Ultrasound 08/08/17 0000 Signed Impressions: Service Date/Time: Tuesday, August 08, 2017 13:50 - CONCLUSION: 1. Bilateral mild to moderate plaque with less than 50%% diameter stenosis by velocity criteria. 2. Elevated velocities in both external carotid arteries right greater than left. 3. Antegrade flow in both vertebral arteries. Дмитрий Hoyos MD PE at Discharge GENERAL: This is a well-nourished, well-developed patient, in no apparent distress. CARDIOVASCULAR: Regular rate and regular rhythm without murmurs, gallops, or rubs. RESPIRATORY: Clear to auscultation. Breath sounds equal bilaterally. No wheezes , rales, or rhonchi. GASTROINTESTINAL: Abdomen soft, non-tender, nondistended. Normal, active bowel sounds MUSCULOSKELETAL: Extremities without clubbing, cyanosis, or edema. NEURO: Alert & Oriented x4 to person, place, time, situation. Moves all ext x4 Hospital Course - acute encephalopathy- now has resolved. CT head with no acute abnormality. UA negative- ABG was reviewed. carotid doppler with less than 50% stenosis- neurology consult appreciated. -ischemic foot ulcer with history of MRSA wound s/p recent 1. Aortogram with left lower extremity angiograms 2. Left SFA and popliteal artery angioplasty to 5 mm. 3. Right common femoral AngioSeal. s/p recent Amputation left hallux with metatarsal and medial cuneiform left foot continue with rehab efforts. continue IV Vancomycin till 08/27/2017- per ID- f/u with podiatry and vascular surgery as needed. left upper extremity swelling; venous doppler negative for DVT hypertensive urgency - has resolved; resumed lisinopril,hydralazine and cardizem- clonidine was added. will monitor and adjust the regimen as needed. anemia of chronic disease;H/H fairly stable- will monitor H/H periodically. continue ferrous sulfate. Dementia; continue Aricept hypokalemia; replaced. COPD with no exacerbation; resumed spiriva- neb treatment as needed consult PT/OT. DVT prophylaxis with subq Heparin . Pt Condition on Discharge: Fair Discharge Disposition: Rehab Inpatient Discharge Time: > 30 minutes Discharge Instructions DIET: Follow Instructions for: Heart Healthy Diet Activities you can perform: Regular-No Restrictions Follow up Referrals: PCP Follow-up Podiatry Vascular Surgery New Medications: Clonidine (Catapres) 0.1 Mg Tab 0.1 MG PO Q12H for hypertension for 30 Days, #60 TAB 0 Refills Heparin Sodium (Porcine) (Heparin Sodium) 10,000 Unit/Ml Inj 5000 UNITS SQ Q8HR for dvt prophylaxis for 10 Days, INJECTION 0 Refills Tiotropium Inh (Spiriva [place]) 18 Mcg Cap 18 MCG INH DAILY for copd, #1 CAP 0 Refills 1 capsule = 18 mcg Continued Medications: Albuterol 18 GM Inh (Ventolin Hfa 18 GM Inh) 90 Mcg/Act Aer 2 PUFF INH Q4-6H PRN for SHORTNESS OF BREATH, #1 INHALER 0 Refills Ascorbic Acid (Vitamin C) 1,000 Mg Tablet.er 1000 MG PO DAILY Aspirin (Aspirin 81 Low Dose) 81 Mg Chew 81 MG CHEW DAILY, #30 TAB 1 Refill Atorvastatin (Atorvastatin) 40 Mg Tab 40 MG PO HS for Cholesterol Management, #30 TAB 5 Refills Citalopram (Citalopram) 40 Mg Tab 60 MG PO DAILY for Control Depression, #45 TAB 6 Refills Please take 1.5 pills daily Cyclobenzaprine (Flexeril) 10 Mg Tab 5 MG PO Q8HR for Muscle Spasm MDD 15 , #30 TAB Diltiazem HCl Coated Beads (Diltiazem HCl ER) 240 Mg Cap 240 MG PO BID Donepezil (Donepezil) 10 Mg Tab 10 MG PO HS for Dementia, #30 TAB 5 Refills Ferrous Sulfate (Iron) 325 Mg Cap 325 MG PO BIDPC for Nutritional Supplement, #60 TAB 2 Refills Fluticasone-Salmeterol Inh (Advair Diskus Inh) 500-50 Mcg/Blist Aer 1 PUFF INH BID, #1 INHALER 0 Refills Rinse mouth after use. Gabapentin (Gabapentin) 100 Mg Cap 100 MG PO TID, #90 CAP 0 Refills Hydralazine HCl (Hydralazine HCl) 50 Mg Tablet 50 MG PO Q6HR for hypertension for 30 Days, TAB 0 Refills Ipratropium-Albuterol Inh (Combivent Respimat Inh) 20-100 Senior Care/Act Aero 1 PUFF INH QID for Asthma Management, #1 INHALER 0 Refills Lactobacillus Acidophilus (Lactobacillus Acidophilus) 1 Tab Tab 1 TAB PO TIDAC for Nutritional Supplement, #30 TAB 0 Refills Lisinopril (Lisinopril) 40 Mg Tab 40 MG PO HS for Blood Pressure Management, #30 TAB 1 Refill Multiple Vitamins W/ Minerals (Multi Vitamin and Mineral) 1 Tab Tab 1 TAB PO DAILY Oxycodone-Acetaminophen (Oxycodone-Acetaminophen) 5-325 mg Tab 1 TAB PO Q6H PRN for PAIN, TAB 0 Refills Travoprost Opth Drops (Travatan Z Opth Drops) 0.004 % Soln 1 DROP EACH EYE HS for Glaucoma, #1 BOTTLE 5 Refills Discontinued Medications: Cyclobenzaprine (Flexeril) 10 Mg Tab 10 MG PO Q8HR for Muscle Spasm, #90 TAB 0 Refills Alison Ceja MD Aug 11, 2017 10:21
--- NOTE | 2017-08-11 12:27 | HHI.PR ---
Addendum To [facility] Progress Not Reason for addendum: Additonal documentation (d/w ; the wound on the foot looks worse and the patient might need amputation- will hold the discharge planning for now.) Alison Ceja MD Aug 11, 2017 12:27
--- NOTE | 2017-08-11 12:35 | PD.POD ---
Subjective Podiatric Problems Nonhealing wound left foot with chronic MRSA infection Pain scale used: 0-10 numeric scale Pain score: 1 Remarks Patient is a 72-year-old male who underwent vascular intervention by Dr. Anand on his last admission. Patient had osteomyelitis of the first ray and underwent a first ray amputation. He is chronically growing MRSA from the wound and the wound is not granulating. There is necrotic tissue. The patient has failed to progress. Past Med/Surg/Social History Past Medical History Endocrine: REPORTS HX OF: Diabetes mellitus, Graves disease Cardiovascular: REPORTS HX OF: Hypertension Gastrointestinal: REPORTS HX OF: Other GI history (prior GI bleed, pt finished c. diff treatment on friday 05/25) Musculoskeletal: REPORTS HX OF: Other musculoskeletal hx (L. shoulder pain worsen after his arm was injured in latest hospitalization) Cancer/Hematology: REPORTS HX OF: Anemia Past Surgical History Gastrointestinal: DENIES HX OF: Colectomy, total Musculoskeletal: REPORTS HX OF: Other musculoskeletal srg (resection of the first metatarsal head and sesamoids) Social History Smoking Status: Former Smoker Review of Systems Notes No changes in his 14 point review of systems exam Objective Vital Signs Vital Signs Date Time Temp Pulse Resp B/P (MAP) Pulse Ox O2 Delivery O2 Flow Rate FiO2 08/11/17 11:19 96 21 08/11/17 08:00 98.1 59 20 135/63 (87) 96 08/11/17 04:00 97.5 59 18 137/65 (89) 95 08/11/17 00:00 98.7 63 18 150/64 (92) 96 08/10/17 20:00 98.5 62 20 128/60 (82) 97 08/10/17 17:59 99 08/10/17 16:00 97.5 61 20 163/74 (103) 99 Coded Allergies: Sulfa (Sulfonamide Antibiotics) (Verified Allergy, Severe, Anaphylaxis, ) metronidazole (Verified Allergy, Severe, Fever, colitis, 07/07/17) While being treated for Cdiff. Doubt if true allergy. penicillin G (Verified Allergy, Severe, Anaphylaxis, 07/07/17) sulfamethoxazole (Verified Allergy, Severe, Anaphylaxis, 07/07/17) trimethoprim (Verified Allergy, Severe, Anaphylaxis, 07/07/17) erythromycin base (Verified Allergy, Intermediate, Rash, 07/07/17) MRI PRECAUTION (Verified Adverse Reaction, Severe, BLADDER STIMULATOR, ) BRAIN ONLY ON RECEIVE ONLY COIL, P.O. 01/11/17, DML meperidine (Verified Adverse Reaction, Unknown, Psychosis, 07/07/17) morphine (Verified Adverse Reaction, Unknown, Psychosis, 07/07/17) Uncoded Allergies: surgical tape (Allergy, Severe, 12/15/13) Medications and IVs Current Medications Dextrose (D50w (Vial) Inj) 50 ml UNSCH PRN IV PUSH HYPOGLYCEMIA-SEE COMMENTS; Start 08/08/17 at 12:45 Glucagon (Glucagon Inj) 1 mg UNSCH PRN OTHER HYPOGLYCEMIA-SEE COMMENTS; Start 08/08/17 at 12:45 Insulin Aspart (NovoLOG SUPPLEMENTAL SCALE) 1 ACHS SLIDING SCALE SQ ; Start at 17:00; Stop 08/09/17 at 09:56; Status DC Pharmacy Profile Note 0 ml @ 0 mls/hr UNSCH PRN OTHER ADJUST FOR CREATININE CLRNCE; Start 08/08/17 at 12:45 Aspirin (Aspirin Chew) 81 mg DAILY CHEW Last administered on 08/11/17 08:45; Start 08/09/17 at 09:00 Atorvastatin Calcium (Lipitor) 40 mg HS PO Last administered on 08/10/17 21:41 ; Start 08/08/17 at 21:00 Citalopram Hydrobromide (CeleXA) 60 mg DAILY PO Last administered on 08/11/17 08:44; Start 08/09/17 at 09:00 Cyclobenzaprine HCl (Flexeril) 5 mg Q8HR PO Last administered on 08/11/17 05: 34; Start 08/08/17 at 14:00 Diltiazem HCl (Cardizem Cd) 240 mg BID PO ; Start 08/08/17 at 21:00; Stop at 21:00; Status DC Donepezil HCl (Aricept) 10 mg HS PO Last administered on 08/10/17 21:41; Start 08/08/17 at 21:00 Gabapentin (Neurontin) 100 mg TID PO Last administered on 08/11/17 08:45; Start 08/08/17 at 13:00 Hydralazine HCl (Apresoline) 50 mg Q6HR PO Last administered on 08/11/17 05:34 ; Start 08/08/17 at 18:00 Lactobacillus Acidophilus (Lactinex) 1 tab TIDAC PO Last administered on 08:45; Start 08/08/17 at 17:00 Ascorbic Acid (Vitamin C) 1,000 mg DAILY PO Last administered on 08/11/17 08: 45; Start 08/09/17 at 09:00 Ferrous Sulfate (Ferrous Sulfate) 325 mg BIDPC PO Last administered on 08:45; Start 08/08/17 at 18:00 Budesonide/ Formoterol Fumarate (Symbicort 160-4.5 Inh) 2 puff BID INH ; Start 08/08/17 at 21:00; Stop 08/08/17 at 21:00; Status DC Non-Formulary Medication 1 puff QID INH ; Start 08/08/17 at 13:00; Stop at 13:25; Status DC Lisinopril (Prinivil) 40 mg HS PO ; Start 08/08/17 at 21:00; Stop 08/08/17 at 21 :00; Status DC Multivitamins/ Minerals Therapeutic (Theragran M Tab) 1 tab DAILY PO Last administered on 08/11/17 08:45; Start 08/09/17 at 09:00 Latanoprost (Xalatan 0.005% Opt Soln) 1 drop HS EACH EYE Last administered on 08/10/17 21:00; Start 08/08/17 at 21:00 Acetaminophen/ Hydrocodone Bitart ([place] 5-325 Mg) 1 tab Q6H PRN PO PAIN 4-10 Last administered on 08/11/17 11:06; Start 08/08/17 at 12:45 Albuterol Sulfate (Albuterol Neb) 1.25 mg Q2HR NEB PRN NEB SHORTNESS OF BREATH Last administered on 08/09/17 01:23; Start 08/08/17 at 12:45 Enalaprilat (Vasotec Inj) 1.25 mg Q6H PRN IV PUSH SBP> OR = 180, DBP> OR = 100 Last administered on 08/09/17 15:49; Start 08/08/17 at 13:00 Diltiazem HCl (Cardizem Cd) 240 mg BID PO Last administered on 08/11/17 08:44 ; Start 08/08/17 at 13:00 Lisinopril (Prinivil) 40 mg HS PO Last administered on 08/10/17 21:41; Start 08/08/17 at 13:00 Tiotropium [place] (Spiriva Inh) 18 mcg DAILY INH Last administered on 08:23; Start 08/09/17 at 09:00 Albuterol Sulfate (Proair Hfa Inh) 2 puff QID INH Last administered on 17:22; Start 08/08/17 at 18:00 Vancomycin HCl 1250 mg/Sodium Chloride 262.5 ml @ 250 mls/hr Q18H IV Last administered on 08/11/17 05:35; Start 08/09/17 at 00:00 Budesonide/ Formoterol Fumarate (Symbicort 160-4.5 Inh) 2 puff BID INH Last administered on 08/10/17 08:24; Start 08/08/17 at 21:00 Nifedipine (Procardia Xl) 30 mg ONCE ONCE PO Last administered on 08/09/17 10 :42; Start 08/09/17 at 11:00; Stop 08/09/17 at 11:01; Status DC Heparin Sodium (Porcine) (Heparin Inj) 5,000 units Q8HR SQ Last administered on 08/11/17 05:34; Start 08/09/17 at 14:00 Clonidine (Catapres) 0.1 mg NOW ONCE PO Last administered on 08/09/17 13:10; Start 08/09/17 at 13:15; Stop 08/09/17 at 13:16; Status DC Clonidine (Catapres) 0.1 mg Q12H PO Last administered on 08/11/17 05:34; Start 08/09/17 at 18:00 Potassium Chloride 100 ml @ 50 mls/hr Q2H IV ; Start 08/09/17 at 21:45; Stop at 01:44; Status Cancel Potassium Bicarb/ Potassium Chloride (K-Lyte Cl Eff) 50 meq ONCE ONCE PO Last administered on 08/09/17 23:50; Start 08/09/17 at 21:45; Stop 08/09/17 at 21:49; Status DC Potassium Chloride 40 meq/ Sodium Chloride 270 ml @ 54 mls/hr ONCE ONCE IV Last administered on 08/09/17t 23:49; Start 08/09/17 at 23:15; Stop 08/10/17 at 04:14; Status DC Other Results Laboratory Tests Test 08/10/17 06:45 White Blood Count 12.0 TH/MM3 Red Blood Count 3.19 MIL/MM3 Hemoglobin 8.4 GM/DL Hematocrit 25.7 % Mean Corpuscular Volume 80.5 FL Mean Corpuscular Hemoglobin 26.3 PG Mean Corpuscular Hemoglobin Concent 32.6 % Red Cell Distribution Width 18.0 % Platelet Count 453 TH/MM3 Mean Platelet Volume 6.9 FL Neutrophils (%) (Auto) 71.7 % Lymphocytes (%) (Auto) 15.6 % Monocytes (%) (Auto) 8.4 % Eosinophils (%) (Auto) 3.7 % Basophils (%) (Auto) 0.6 % Neutrophils # (Auto) 8.6 TH/MM3 Lymphocytes # (Auto) 1.9 TH/MM3 Monocytes # (Auto) 1.0 TH/MM3 Eosinophils # (Auto) 0.4 TH/MM3 Basophils # (Auto) 0.1 TH/MM3 CBC Comment DIFF FINAL Differential Comment Laboratory Tests Test 08/09/17 19:15 08/10/17 06:45 08/11/17 05:40 Potassium Level 2.8 MEQ/L 3.5 MEQ/L Blood Urea Nitrogen 14 MG/DL Creatinine 0.93 MG/DL 1.03 MG/DL Random Glucose 140 MG/DL Calcium Level 8.1 MG/DL Sodium Level 139 MEQ/L Chloride Level 103 MEQ/L Carbon Dioxide Level 32.3 MEQ/L Anion Gap 4 MEQ/L Estimat Glomerular Filtration Rate 80 ML/MIN 71 ML/MIN Exam-Podiatry Constitutional General appearance: comfortable Nutritional status: normal Orientation: alert and oriented x3 Dermatological Exam Skin Temp - Right: Cool Skin Texture - Right: Within Normal Limits Skin Elasticity - Right: Within Normal Limits Skin Tugor - Right: Within Normal Limits Hair Growth - Right: Absent Pigmentation - Right: No Changes Skin Temp - Left: Cool Skin Texture - Left: Thin Skin Elasticity - Left: Decreased Skin Tugor - Left: Decreased Hair Growth - Left: Absent Pigmentation - Left: No Changes Ulcers: Location/Measurements Ulceration left foot failing to progress with necrotic tissue and odor. Also area of necrosis. Vascular/Lymphatic Exam R Dorsails Pedis: Doppler L Dorsails Pedis: Doppler R Posterior Tibial: Doppler L Posterior Tibial: Doppler Neurologic Exam Details Deferred Assessment & Plan Diagnosis: (1) Osteomyelitis of left foot ICD Codes: M86.9 - Osteomyelitis, unspecified Status: Acute (2) Peripheral arterial disease ICD Codes: I73.9 - Peripheral vascular disease, unspecified Status: Acute (3) Unstageable pressure ulcer of left foot ICD Codes: L89.890 - Pressure ulcer of other site, unstageable Status: Chronic A/P PLAN: I feel that the patient is failing to progress. With vascular history I don't think a further foot amputation would be helpful or would heal. Patient requires a BKA of the left. Dr. Anand was consulted for possible BKA. Gamal Arvizu DPM Aug 11, 2017 12:35
--- NOTE | 2017-08-11 12:52 | PQ ---
Physician Query Response Document PATIENT: MIKAL MARIA : 1945 ADMIT DATE: 08/08/2017 12:12 PM DISCH DATE: RESPONDING PROVIDER #: [email or web address] QUERY TEXT: Encephalopathy Type Encephalopathy is documented in the Medical Record. Please specify type Such as: -- Alcoholic -- Anoxic -- Due to medications or drugs (please specify) -- Hepatic failure (please specify if with or without coma) -- Hypertensive -- Metabolic -- Septic -- Toxic -- Wernicke?s -- Other, please specify The patient's Clinical Indicators include: SUDDEN CHANGE IN MENTAL STATUS Lethargic while on rehab floor hypertensive urgency BP222/80 history of some degree of dementia baseline state awake, alert and he was oriented per neruo come left sided weakness CT normal/ Possible medication related s/p angioplasty and Right common femoral AngioSeal along with amputation left hallux with metatarsal and medial cuneiform left foot. he was started on IV antibiotic and afebrile on admission Query created by: Kendra Luu on 08/10/2017 11:49 AM RESPONSE TEXT: Acute encephalopathy- suspect metabolic. Electronically signed by: Alison Ceja MD 08/11/2017 12:48 PM
--- NOTE | 2017-08-11 18:02 | PD.VS.PN ---
Subjective Subjective/Hospital Course Pt well known to me and on 07/21 I performed a L SFA/popliteal artery recanalization for extensive tissue loss LLE. He was readm from rehab with - acc to the - altered mental status and concerns for the wound. He notes his pain is controlled and denies fevers. Objective Vitals/I&O Date Time Temp Pulse Resp B/P (MAP) Pulse Ox O2 Delivery O2 Flow Rate FiO2 08/11/17 16:00 98.0 68 20 158/70 (99) 97 08/11/17 12:00 98.5 60 20 138/60 (86) 96 08/11/17 11:19 96 21 08/11/17 08:00 98.1 59 20 135/63 (87) 96 08/11/17 04:00 97.5 59 18 137/65 (89) 95 08/11/17 00:00 98.7 63 18 150/64 (92) 96 08/10/17 20:00 98.5 62 20 128/60 (82) 97 08/11/17 08/11/17 08/11/17 07:00 15:00 23:00 Intake Total 720 ml Output Total 700 ml Balance -700 ml 720 ml Physical Exam L foot with necrosis proximally under eschar, likely to bone Decent granulation tissue distally Palpable DP Laboratory Laboratory Tests Test 08/11/17 05:40 Creatinine 1.03 Estimat Glomerular Filtration Rate 71 Assessment and Plan Plan I would continue aggressive wound care, even to the point of partial tarsal resection and skin/tissue debridement. Although I agree that he may ultimately require a BKA, I am encouraged by the perfusion and distal granulation. Would change to collagenase and will watch it closely. Should be encouraged to ambulate. Will follow closely. García Anand MD FACS [employer] orthopedic specialist [facility] - Heart and Vascular Surgery at [facility] [phone] García Anand MD Aug 11, 2017 18:02
[2017-08-11] MEDS: COLLAGENASE OINT 30 GM TUBE TOPICAL SCH (20:00)
[2017-08-11] MEDS: BUDESONIDE-FORMOTEROL 160/4.5 MCG INHALER INH SCH ×2 (22:10→22:13)
[2017-08-11] MEDS: DONEPEZIL HCL 5 MG TAB PO SCH (22:11)
[2017-08-11] MEDS: LISINOPRIL 20 MG TAB PO SCH (22:11)
[2017-08-11] MEDS: ATORVASTATIN 40 MG TAB PO SCH (22:11)
[2017-08-11] MEDS: LATANOPROST 0.005% OPHT SOLN 2.5 ML BTL EACH EYE SCH (22:12)
[2017-08-12] VITALS (8 sets, daily range): BP systolic 153–214; BP diastolic 70–94; PULSE 60–88; RESP 16–18; TEMP 98–98.4; O2SAT 96–97
[2017-08-12] MEDS: VANCOMYCIN INJ 1,250 MG in SODIUM CHLOR 0.9% 250 ML INJ 250 ML IV SCH ×2 (00:21→17:22)
[2017-08-12] MEDS: hydrALAZINE HCL 50 MG TAB PO SCH ×4 (00:21→17:22)
[2017-08-12] MEDS: ACETAMINOPHEN/HYDROcodone 325 MG/5 MG TAB PO PRN ×4 (04:29→22:39)
[2017-08-12] MEDS: ENALAPRILAT 1.25 MG/ML VIAL IV PUSH PRN (04:30)
[2017-08-12] MEDS: CYCLOBENZAPRINE HCL 10 MG TAB PO SCH ×3 (06:02→22:40)
[2017-08-12] MEDS: cloNIDine HCL 0.1 MG TAB PO SCH ×3 (06:03→22:39)
[2017-08-12] MEDS: HEPARIN SODIUM - SQ 10,000 UNITS/ML VIAL SQ SCH ×3 (06:04→22:40)
[2017-08-12] MEDS: ASCORBIC ACID 500 MG TAB PO SCH (08:43)
[2017-08-12] MEDS: CITALOPRAM HYDROBROMIDE 40 MG TAB PO SCH (08:43)
[2017-08-12] MEDS: ASPIRIN 81 MG CHEW TAB CHEW SCH (08:44)
[2017-08-12] MEDS: DILTIAZEM-CD 240 MG CAP ER PO SCH ×2 (08:44→22:38)
[2017-08-12] MEDS: GABAPENTIN 100 MG CAP PO SCH ×3 (08:44→17:22)
[2017-08-12] MEDS: BUDESONIDE-FORMOTEROL 160/4.5 MCG INHALER INH SCH ×2 (08:45→22:53)
[2017-08-12] MEDS: FERROUS SULFATE 325 MG (65 MG ELEMENTAL IRON) TAB PO SCH ×2 (08:45→17:22)
[2017-08-12] MEDS: MULTIVITAMINS/MINERALS THERAPEUTIC TAB PO SCH (08:45)
[2017-08-12] MEDS: LACTOBACILLUS ACIDOPHILUS TAB PO SCH ×3 (08:45→16:34)
[2017-08-12] MEDS: TIOTROPIUM BROMIDE 18 MCG INH INH SCH (08:46)
[2017-08-12] MEDS: COLLAGENASE OINT 30 GM TUBE TOPICAL SCH (08:46)
[2017-08-12] MEDS: ALBUTEROL SULFATE 90 MCG/ACT HFA 8 GM INHALER INH SCH ×4 (08:46→22:41)
--- NOTE | 2017-08-12 09:24 | HHI.PR ---
Subjective Remarks in no distress. has some pain to the left foot. BP trend noted. no new complaints. Objective Vitals Vital Signs Date Time Temp Pulse Resp B/P (MAP) Pulse Ox O2 Delivery O2 Flow Rate FiO2 08/12/17 06:52 165/73 (103) 08/12/17 06:00 214/94 (134) 08/12/17 04:00 98.4 73 18 188/81 (116) 97 08/11/17 23:00 97.9 67 18 160/74 (102) 97 08/11/17 22:20 70 08/11/17 20:00 98.8 73 16 165/72 (103) 97 08/11/17 16:00 98.0 68 20 158/70 (99) 97 08/11/17 12:00 98.5 60 20 138/60 (86) 96 08/11/17 11:19 96 21 I/O 08/11/17 08/11/17 08/11/17 08/12/17 08/12/17 08/12/17 07:00 15:00 23:00 07:00 15:00 23:00 Intake Total 720 ml 360 ml Output Total 700 ml 1550 ml Balance -700 ml 720 ml -1190 ml Intake Oral 720 ml 360 ml Output Urine Total 700 ml 1550 ml # Voids 1 # Bowel Movements 1 Result Diagram: 08/10/17 0645 08/11/17 0540 Imaging Last Impressions Carotid Artery Ultrasound 08/08/17 0000 Signed Impressions: Service Date/Time: Tuesday, August 08, 2017 13:50 - CONCLUSION: 1. Bilateral mild to moderate plaque with less than 50%% diameter stenosis by velocity criteria. 2. Elevated velocities in both external carotid arteries right greater than left. 3. Antegrade flow in both vertebral arteries. Дмитрий Hoyos MD Objective Remarks GENERAL: This is a well-nourished, well-developed patient, in no apparent distress. CARDIOVASCULAR: Regular rate and regular rhythm without murmurs, gallops, or rubs. RESPIRATORY: Clear to auscultation. Breath sounds equal bilaterally. No wheezes , rales, or rhonchi. GASTROINTESTINAL: Abdomen soft, non-tender, nondistended. Normal, active bowel sounds MUSCULOSKELETAL: left foot covered with clean dressing. NEURO: Alert & Oriented x4 to person, place, time, situation. Moves all ext x4 Procedures none Medications and IVs Current Medications Dextrose (D50w (Vial) Inj) 50 ml UNSCH PRN IV PUSH HYPOGLYCEMIA-SEE COMMENTS; Start 08/08/17 at 12:45 Glucagon (Glucagon Inj) 1 mg UNSCH PRN OTHER HYPOGLYCEMIA-SEE COMMENTS; Start 08/08/17 at 12:45 Insulin Aspart (NovoLOG SUPPLEMENTAL SCALE) 1 ACHS SLIDING SCALE SQ ; Start at 17:00; Stop 08/09/17 at 09:56; Status DC Pharmacy Profile Note 0 ml @ 0 mls/hr UNSCH PRN OTHER ADJUST FOR CREATININE CLRNCE; Start 08/08/17 at 12:45 Aspirin (Aspirin Chew) 81 mg DAILY CHEW Last administered on 08/12/17 08:44; Start 08/09/17 at 09:00 Atorvastatin Calcium (Lipitor) 40 mg HS PO Last administered on 08/11/17 22:11 ; Start 08/08/17 at 21:00 Citalopram Hydrobromide (CeleXA) 60 mg DAILY PO Last administered on 08/12/17 08:43; Start 08/09/17 at 09:00 Cyclobenzaprine HCl (Flexeril) 5 mg Q8HR PO Last administered on 08/12/17 06: 02; Start 08/08/17 at 14:00 Diltiazem HCl (Cardizem Cd) 240 mg BID PO ; Start 08/08/17 at 21:00; Stop at 21:00; Status DC Donepezil HCl (Aricept) 10 mg HS PO Last administered on 08/11/17 22:11; Start 08/08/17 at 21:00 Gabapentin (Neurontin) 100 mg TID PO Last administered on 08/12/17 08:44; Start 08/08/17 at 13:00 Hydralazine HCl (Apresoline) 50 mg Q6HR PO Last administered on 08/12/17 06:02 ; Start 08/08/17 at 18:00 Lactobacillus Acidophilus (Lactinex) 1 tab TIDAC PO Last administered on 08:45; Start 08/08/17 at 17:00 Ascorbic Acid (Vitamin C) 1,000 mg DAILY PO Last administered on 08/12/17 08: 43; Start 08/09/17 at 09:00 Ferrous Sulfate (Ferrous Sulfate) 325 mg BIDPC PO Last administered on 08:45; Start 08/08/17 at 18:00 Budesonide/ Formoterol Fumarate (Symbicort 160-4.5 Inh) 2 puff BID INH ; Start 08/08/17 at 21:00; Stop 08/08/17 at 21:00; Status DC Non-Formulary Medication 1 puff QID INH ; Start 08/08/17 at 13:00; Stop at 13:25; Status DC Lisinopril (Prinivil) 40 mg HS PO ; Start 08/08/17 at 21:00; Stop 08/08/17 at 21 :00; Status DC Multivitamins/ Minerals Therapeutic (Theragran M Tab) 1 tab DAILY PO Last administered on 08/12/17 08:45; Start 08/09/17 at 09:00 Latanoprost (Xalatan 0.005% Opt Soln) 1 drop HS EACH EYE Last administered on 08/11/17 22:12; Start 08/08/17 at 21:00 Acetaminophen/ Hydrocodone Bitart ([employer] 5-325 Mg) 1 tab Q6H PRN PO PAIN 4-10 Last administered on 08/12/17 04:29; Start 08/08/17 at 12:45 Albuterol Sulfate (Albuterol Neb) 1.25 mg Q2HR NEB PRN NEB SHORTNESS OF BREATH Last administered on 08/09/17 01:23; Start 08/08/17 at 12:45 Enalaprilat (Vasotec Inj) 1.25 mg Q6H PRN IV PUSH SBP> OR = 180, DBP> OR = 100 Last administered on 08/12/17 04:30; Start 08/08/17 at 13:00 Diltiazem HCl (Cardizem Cd) 240 mg BID PO Last administered on 08/12/17 08:44 ; Start 08/08/17 at 13:00 Lisinopril (Prinivil) 40 mg HS PO Last administered on 08/11/17 22:11; Start 08/08/17 at 13:00 Tiotropium [place] (Spiriva Inh) 18 mcg DAILY INH Last administered on 08:23; Start 08/09/17 at 09:00 Albuterol Sulfate (Proair Hfa Inh) 2 puff QID INH Last administered on 17:22; Start 08/08/17 at 18:00 Vancomycin HCl 1250 mg/Sodium Chloride 262.5 ml @ 250 mls/hr Q18H IV Last administered on 08/12/17 00:21; Start 08/09/17 at 00:00 Budesonide/ Formoterol Fumarate (Symbicort 160-4.5 Inh) 2 puff BID INH Last administered on 08/10/17 08:24; Start 08/08/17 at 21:00 Nifedipine (Procardia Xl) 30 mg ONCE ONCE PO Last administered on 08/09/17 10 :42; Start 08/09/17 at 11:00; Stop 08/09/17 at 11:01; Status DC Heparin Sodium (Porcine) (Heparin Inj) 5,000 units Q8HR SQ Last administered on 08/12/17 06:04; Start 08/09/17 at 14:00 Clonidine (Catapres) 0.1 mg NOW ONCE PO Last administered on 08/09/17 13:10; Start 08/09/17 at 13:15; Stop 08/09/17 at 13:16; Status DC Clonidine (Catapres) 0.1 mg Q12H PO Last administered on 08/12/17 06:03; Start 08/09/17 at 18:00 Potassium Chloride 100 ml @ 50 mls/hr Q2H IV ; Start 08/09/17 at 21:45; Stop at 01:44; Status Cancel Potassium Bicarb/ Potassium Chloride (K-Lyte Cl Eff) 50 meq ONCE ONCE PO Last administered on 08/09/17 23:50; Start 08/09/17 at 21:45; Stop 08/09/17 at 21:49; Status DC Potassium Chloride 40 meq/ Sodium Chloride 270 ml @ 54 mls/hr ONCE ONCE IV Last administered on 08/09/17 23:49; Start 08/09/17 at 23:15; Stop 08/10/17 at 04:14; Status DC Collagenase (Santyl Oint) 1 applic DAILY TOPICAL Last administered on 08:46; Start 08/11/17 at 17:00 A/P Assessment and Plan A/P - acute encephalopathy- now has resolved. CT head with no acute abnormality. UA negative- ABG was reviewed. carotid doppler with less than 50% stenosis- neurology consult appreciated. -ischemic foot ulcer with history of MRSA wound s/p recent 1. Aortogram with left lower extremity angiograms 2. Left SFA and popliteal artery angioplasty to 5 mm. 3. Right common femoral AngioSeal. s/p recent Amputation left hallux with metatarsal and medial cuneiform left foot continue with rehab efforts. continue IV Vancomycin till 08/27/2017- per ID- podiatry f/u appreciated- vascular surgery was reconsulted for possible BKA- however vascular surgery recommended that the aggressive wound care to be continued at this time. left upper extremity swelling; venous doppler negative for DVT hypertensive urgency - has resolved- however the BP started to go uu again; resumed lisinopril,hydralazine and cardizem- will increase clonidine. will monitor and adjust the regimen as needed. anemia of chronic disease;H/H fairly stable- will monitor H/H periodically. continue ferrous sulfate. Dementia; continue Aricept hypokalemia; replaced. COPD with no exacerbation; resumed spiriva- neb treatment as needed consult PT/OT. DVT prophylaxis with subq Heparin . Discharge Planning dc to rehab when cleared by podiatry and vascular surgery. Alison Ceja MD Aug 12, 2017 09:24
--- NOTE | 2017-08-12 12:02 | PD.VS.PN ---
Subjective Subjective/Hospital Course Pt in bed w/o complaints GCS 15 Afebrile LE warm w/ motor intact Objective Vitals/I&O Date Time Temp Pulse Resp B/P (MAP) Pulse Ox O2 Delivery O2 Flow Rate FiO2 08/12/17 11:18 88 08/12/17 08:00 98.0 71 16 194/85 (121) 97 08/12/17 06:52 165/73 (103) 08/12/17 06:00 214/94 (134) 08/12/17 04:00 98.4 73 18 188/81 (116) 97 08/11/17 23:00 97.9 67 18 160/74 (102) 97 08/11/17 22:20 70 08/11/17 20:00 98.8 73 16 165/72 (103) 97 08/11/17 16:00 98.0 68 20 158/70 (99) 97 08/11/17 12:00 98.5 60 20 138/60 (86) 96 08/12/17 08/12/17 08/12/17 07:00 15:00 23:00 Intake Total 360 ml Output Total 1550 ml Balance -1190 ml Physical Exam GENERAL: Afebrile 72/M A&OX3, NAD, GCS15 SKIN: Warm and dry Granulation tissue noted to R great toe amputation site (distally) L foot with necrosis proximally under eschar Left -Palpable DP MUSCULOSKELETAL: No cyanosis, or edema. Assessment and Plan Plan I would continue aggressive wound care, even to the point of partial tarsal resection and skin/tissue debridement. Although I agree that he may ultimately require a BKA, I am encouraged by the perfusion and distal granulation. Would change to collagenase and will watch it closely. Should be encouraged to ambulate. Plan Pt clear for D/C to [facility] Arranged post op F/u with a surveillance BRIAN in 1W Continue daily wound care to Left foot ulcerations (Collagenase) Continue PT- WBAT Beatris MENDEZ [facility] [phone] Discharge Planning Today to [facility] Beatris Meza Aug 12, 2017 12:02
[2017-08-12] MEDS: DONEPEZIL HCL 5 MG TAB PO SCH (22:38)
[2017-08-12] MEDS: ATORVASTATIN 40 MG TAB PO SCH (22:39)
[2017-08-12] MEDS: LISINOPRIL 20 MG TAB PO SCH (22:39)
[2017-08-12] MEDS: LATANOPROST 0.005% OPHT SOLN 2.5 ML BTL EACH EYE SCH (22:41)
[2017-08-13] MEDS: hydrALAZINE HCL 50 MG TAB PO SCH ×2 (00:02→05:54)
[2017-08-13 00:17] VITALS: BP 168/74; PULSE 61; RESP 18; TEMP 98.6; O2SAT 96
[2017-08-13 04:00] VITALS: BP 150/70; PULSE 57; RESP 16; TEMP 98.1; O2SAT 98
[2017-08-13] MEDS: CYCLOBENZAPRINE HCL 10 MG TAB PO SCH (05:53)
[2017-08-13] MEDS: HEPARIN SODIUM - SQ 10,000 UNITS/ML VIAL SQ SCH (05:53)
[2017-08-13] MEDS: LACTOBACILLUS ACIDOPHILUS TAB PO SCH (05:54)
[2017-08-13] MEDS: cloNIDine HCL 0.1 MG TAB PO SCH (05:54)
[2017-08-13 08:00] VITALS: BP 152/68; PULSE 57; RESP 16; TEMP 97.9; O2SAT 95
[2017-08-13] MEDS: TIOTROPIUM BROMIDE 18 MCG INH INH SCH (08:07)
[2017-08-13] MEDS: ALBUTEROL SULFATE 90 MCG/ACT HFA 8 GM INHALER INH SCH (08:07)
[2017-08-13] MEDS: CITALOPRAM HYDROBROMIDE 40 MG TAB PO SCH (08:07)
[2017-08-13] MEDS: ASPIRIN 81 MG CHEW TAB CHEW SCH (08:07)
[2017-08-13] MEDS: DILTIAZEM-CD 240 MG CAP ER PO SCH (08:07)
[2017-08-13] MEDS: GABAPENTIN 100 MG CAP PO SCH (08:07)
[2017-08-13] MEDS: MULTIVITAMINS/MINERALS THERAPEUTIC TAB PO SCH (08:07)
[2017-08-13] MEDS: FERROUS SULFATE 325 MG (65 MG ELEMENTAL IRON) TAB PO SCH (08:07)
[2017-08-13] MEDS: ASCORBIC ACID 500 MG TAB PO SCH (08:07)
[2017-08-13] MEDS: BUDESONIDE-FORMOTEROL 160/4.5 MCG INHALER INH SCH (08:07)
[2017-08-13] MEDS: COLLAGENASE OINT 30 GM TUBE TOPICAL SCH (08:08)
[2017-08-13] MEDS: ACETAMINOPHEN/HYDROcodone 325 MG/5 MG TAB PO PRN (09:29)
--- NOTE | 2017-08-13 09:39 | HHI.PR ---
Subjective Remarks in no distress. pain is controlled. no fever. BP trend noted. wants to go back to rehab. Objective Vitals Vital Signs Date Time Temp Pulse Resp B/P (MAP) Pulse Ox O2 Delivery O2 Flow Rate FiO2 08/13/17 04:00 98.1 57 16 150/70 (96) 98 08/13/17 00:17 98.6 61 18 168/74 (105) 96 08/12/17 20:00 98.4 66 18 155/72 (99) 97 08/12/17 16:00 98.4 60 16 153/70 (97) 97 08/12/17 12:00 98.4 64 16 179/79 (112) 96 08/12/17 11:18 88 I/O 08/12/17 08/12/17 08/12/17 08/13/17 08/13/17 08/13/17 07:00 15:00 23:00 07:00 15:00 23:00 Intake Total 360 ml Output Total 1550 ml 400 ml Balance -1190 ml -400 ml Intake Oral 360 ml Output Urine Total 1550 ml 400 ml # Voids 1 Result Diagram: 08/10/17 0645 08/13/17 0527 Imaging Last Impressions Carotid Artery Ultrasound 08/08/17 0000 Signed Impressions: Service Date/Time: Tuesday, August 08, 2017 13:50 - CONCLUSION: 1. Bilateral mild to moderate plaque with less than 50%% diameter stenosis by velocity criteria. 2. Elevated velocities in both external carotid arteries right greater than left. 3. Antegrade flow in both vertebral arteries. Дмитрий Hoyos MD Objective Remarks GENERAL: This is a well-nourished, well-developed patient, in no apparent distress. CARDIOVASCULAR: Regular rate and regular rhythm without murmurs, gallops, or rubs. RESPIRATORY: Clear to auscultation. Breath sounds equal bilaterally. No wheezes , rales, or rhonchi. GASTROINTESTINAL: Abdomen soft, non-tender, nondistended. Normal, active bowel sounds MUSCULOSKELETAL: left foot covered with clean dressing. NEURO: Alert & Oriented x4 to person, place, time, situation. Moves all ext x4 Procedures none Medications and IVs Current Medications Dextrose (D50w (Vial) Inj) 50 ml UNSCH PRN IV PUSH HYPOGLYCEMIA-SEE COMMENTS; Start 08/08/17 at 12:45 Glucagon (Glucagon Inj) 1 mg UNSCH PRN OTHER HYPOGLYCEMIA-SEE COMMENTS; Start 08/08/17 at 12:45 Insulin Aspart (NovoLOG SUPPLEMENTAL SCALE) 1 ACHS SLIDING SCALE SQ ; Start at 17:00; Stop 08/09/17 at 09:56; Status DC Pharmacy Profile Note 0 ml @ 0 mls/hr UNSCH PRN OTHER ADJUST FOR CREATININE CLRNCE; Start 08/08/17 at 12:45 Aspirin (Aspirin Chew) 81 mg DAILY CHEW Last administered on 08/13/17 08:07; Start 08/09/17 at 09:00 Atorvastatin Calcium (Lipitor) 40 mg HS PO Last administered on 08/12/17 22:39 ; Start 08/08/17 at 21:00 Citalopram Hydrobromide (CeleXA) 60 mg DAILY PO Last administered on 08/13/17 08:07; Start 08/09/17 at 09:00 Cyclobenzaprine HCl (Flexeril) 5 mg Q8HR PO Last administered on 08/13/17 05: 53; Start 08/08/17 at 14:00 Diltiazem HCl (Cardizem Cd) 240 mg BID PO ; Start 08/08/17 at 21:00; Stop at 21:00; Status DC Donepezil HCl (Aricept) 10 mg HS PO Last administered on 08/12/17 22:38; Start 08/08/17 at 21:00 Gabapentin (Neurontin) 100 mg TID PO Last administered on 08/13/17 08:07; Start 08/08/17 at 13:00 Hydralazine HCl (Apresoline) 50 mg Q6HR PO Last administered on 08/13/17 05:54 ; Start 08/08/17 at 18:00 Lactobacillus Acidophilus (Lactinex) 1 tab TIDAC PO Last administered on 05:54; Start 08/08/17 at 17:00 Ascorbic Acid (Vitamin C) 1,000 mg DAILY PO Last administered on 08/13/17 08: 07; Start 08/09/17 at 09:00 Ferrous Sulfate (Ferrous Sulfate) 325 mg BIDPC PO Last administered on 08:07; Start 08/08/17 at 18:00 Budesonide/ Formoterol Fumarate (Symbicort 160-4.5 Inh) 2 puff BID INH ; Start 08/08/17 at 21:00; Stop 08/08/17 at 21:00; Status DC Non-Formulary Medication 1 puff QID INH ; Start 08/08/17 at 13:00; Stop at 13:25; Status DC Lisinopril (Prinivil) 40 mg HS PO ; Start 08/08/17 at 21:00; Stop 08/08/17 at 21 :00; Status DC Multivitamins/ Minerals Therapeutic (Theragran M Tab) 1 tab DAILY PO Last administered on 08/13/17 08:07; Start 08/09/17 at 09:00 Latanoprost (Xalatan 0.005% Opt Soln) 1 drop HS EACH EYE Last administered on 08/12/17 22:41; Start 08/08/17 at 21:00 Acetaminophen/ Hydrocodone Bitart ([place] 5-325 Mg) 1 tab Q6H PRN PO PAIN 4-10 Last administered on 08/12/17 04:29; Start 08/08/17 at 12:45; Stop 08/12/17 at 09:27; Status DC Albuterol Sulfate (Albuterol Neb) 1.25 mg Q2HR NEB PRN NEB SHORTNESS OF BREATH Last administered on 08/09/17 01:23; Start 08/08/17 at 12:45 Enalaprilat (Vasotec Inj) 1.25 mg Q6H PRN IV PUSH SBP> OR = 180, DBP> OR = 100 Last administered on 08/12/17 04:30; Start 08/08/17 at 13:00 Diltiazem HCl (Cardizem Cd) 240 mg BID PO Last administered on 08/13/17 08:07 ; Start 08/08/17 at 13:00 Lisinopril (Prinivil) 40 mg HS PO Last administered on 08/12/17 22:39; Start 08/08/17 at 13:00 Tiotropium [place] (Spiriva Inh) 18 mcg DAILY INH Last administered on 08:23; Start 08/09/17 at 09:00 Albuterol Sulfate (Proair Hfa Inh) 2 puff QID INH Last administered on 22:41; Start 08/08/17 at 18:00 Vancomycin HCl 1250 mg/Sodium Chloride 262.5 ml @ 250 mls/hr Q18H IV Last administered on 08/12/17 17:22; Start 08/09/17 at 00:00 Budesonide/ Formoterol Fumarate (Symbicort 160-4.5 Inh) 2 puff BID INH Last administered on 08/10/17 08:24; Start 08/08/17 at 21:00 Nifedipine (Procardia Xl) 30 mg ONCE ONCE PO Last administered on 08/09/17 10 :42; Start 08/09/17 at 11:00; Stop 08/09/17 at 11:01; Status DC Heparin Sodium (Porcine) (Heparin Inj) 5,000 units Q8HR SQ Last administered on 08/13/17 05:53; Start 08/09/17 at 14:00 Clonidine (Catapres) 0.1 mg NOW ONCE PO Last administered on 08/09/17 13:10; Start 08/09/17 at 13:15; Stop 08/09/17 at 13:16; Status DC Clonidine (Catapres) 0.1 mg Q12H PO Last administered on 08/12/17 06:03; Start 08/09/17 at 18:00; Stop 08/12/17 at 09:26; Status DC Potassium Chloride 100 ml @ 50 mls/hr Q2H IV ; Start 08/09/17 at 21:45; Stop at 01:44; Status Cancel Potassium Bicarb/ Potassium Chloride (K-Lyte Cl Eff) 50 meq ONCE ONCE PO Last administered on 08/09/17 23:50; Start 08/09/17 at 21:45; Stop 08/09/17 at 21:49; Status DC Potassium Chloride 40 meq/ Sodium Chloride 270 ml @ 54 mls/hr ONCE ONCE IV Last administered on 08/09/17 23:49; Start 08/09/17 at 23:15; Stop 08/10/17 at 04:14; Status DC Collagenase (Santyl Oint) 1 applic DAILY TOPICAL Last administered on 08:08; Start 08/11/17 at 17:00 Clonidine (Catapres) 0.1 mg Q8HR PO Last administered on 08/13/17 05:54; Start 08/12/17 at 14:00 Acetaminophen/ Hydrocodone Bitart ([place] 5-325 Mg) 1 tab Q4H PRN PO PAIN 4-10 Last administered on 08/13/17 09:29; Start 08/12/17 at 09:30 Miscellaneous Information SPECIFIC LAB TO BE DRAWN:VANCOMYCIN TROUGH DATE TO... ONCE ONCE .XX ; Start 08/13/17 at 11:45; Stop 08/13/17 at 11:46 A/P Assessment and Plan A/P - acute encephalopathy- now has resolved. CT head with no acute abnormality. UA negative- ABG was reviewed. carotid doppler with less than 50% stenosis- neurology consult appreciated. -ischemic foot ulcer with history of MRSA wound s/p recent 1. Aortogram with left lower extremity angiograms 2. Left SFA and popliteal artery angioplasty to 5 mm. 3. Right common femoral AngioSeal. s/p recent Amputation left hallux with metatarsal and medial cuneiform left foot continue with rehab efforts. continue IV Vancomycin till 08/27/2017- per ID- podiatry f/u appreciated- vascular surgery was reconsulted for possible BKA- however vascular surgery recommended that the aggressive wound care to be continued at this time. surveillance BRIAN in 1W. left upper extremity swelling; venous doppler negative for DVT hypertensive urgency - has resolved- ; resumed lisinopril,hydralazine , clonidine and cardizem- anemia of chronic disease;H/H fairly stable- will monitor H/H periodically. continue ferrous sulfate. Dementia; continue Aricept hypokalemia; replaced. COPD with no exacerbation; resumed spiriva- neb treatment as needed consult PT/OT. DVT prophylaxis with subq Heparin . Discharge Planning dc to inpatient rehab today. see med list. f/u; pcp, podiatry, vascular surgery. IV antibiotic per previous ID recommendations. d/w the patient and case management. time spent 35 min. Alison Ceja MD Aug 13, 2017 09:39
[2017-08-13] MEDS ORDERED: CLON.1 PO (09:44)
[2017-08-13 09:46] VITALS: PULSE 55
[2017-08-13] MEDS ORDERED: PHARMACY ORDERED LAB ONE (11:45)
[2017-08-14] MEDS ORDERED: COLL30T TOPICAL (08:50)
[2017-08-14] MEDS ORDERED: OXYC1TAB63 PO (08:50)
[2017-08-14] MEDS ORDERED: LATA.005%O EACH EYE (08:50)
[2017-08-14] MEDS ORDERED: VANC1000P IV (08:50)
[2017-09-02] MEDS ORDERED: FENT25T T-DERMAL (09:01)
[2017-09-02] MEDS ORDERED: DILA2TAB2 PO (09:01)
[2017-09-02] MEDS ORDERED: OXYC1TAB35 PO (09:01)
[2017-09-02] MEDS ORDERED: CLON.2 PO (12:47)
[2017-09-02] MEDS ORDERED: SPIRCAP INH (12:47)
[2017-09-02] MEDS ORDERED: VENTAER INH (12:47)
[2017-09-02] MEDS ORDERED: ATOR40TA16 PO (12:47)
[2017-09-02] MEDS ORDERED: PANT40TA3 PO (12:47)
[2017-09-02] MEDS ORDERED: guaiFENesin ER PO (12:47)
[2017-09-02] MEDS ORDERED: LISI-515 PO (12:47)
[2017-09-02] MEDS ORDERED: FERR325T20 PO (12:47)
[2017-09-02] MEDS ORDERED: THERM PO (12:47)
[2017-09-02] MEDS ORDERED: ARIC5TAB2 PO (12:47)
[2017-09-02] MEDS ORDERED: SYMB160A INH (12:47)
[2017-09-02] MEDS ORDERED: GABA100C4 PO (12:47)
[2017-09-02] MEDS ORDERED: VITA500T2 PO (12:47)
[2017-09-02] MEDS ORDERED: HYDR-3801 PO (12:47)
[2017-09-02] MEDS ORDERED: COLL30T TOPICAL (12:47)
[2017-09-02] MEDS ORDERED: AMLO5 PO (12:47)
[2017-09-02] MEDS ORDERED: CELE20TA PO (12:47)
[2017-09-02] MEDS ORDERED: CYCL1TAB29 PO (12:47)
[2017-09-02] MEDS ORDERED: LATA.005%O EACH EYE (12:47)
[2017-09-02] MEDS ORDERED: ACET1TAB86 PO (12:47)
[2017-09-02] MEDS ORDERED: ASPI-99 PO (12:47)
[2017-09-02] MEDS ORDERED: LACT PO (12:47)
== END 2017-08-13 11:33 | DRG 72 ==
LOC: N05B 12:12 → N05A 08-10 09:44
PROVIDERS: ADMIT Internal Medicine; ATTEND Internal Medicine
DX: G93.41 Metabolic encephalopathy (principal); J44.9 Chronic obstructive pulmonary disease, unspecified; F03.90 Unspecified dementia, unspecified severity, without behavioral disturbance, psychotic disturbance, mood disturbance, and anxiety; I10 Essential (primary) hypertension; I16.0 Hypertensive urgency; D63.8 Anemia in other chronic diseases classified elsewhere; E11.9 Type 2 diabetes mellitus without complications; L97.529 Non-pressure chronic ulcer of other part of left foot with unspecified severity; Z86.14 Personal history of Methicillin resistant Staphylococcus aureus infection; E87.6 Hypokalemia; Z87.891 Personal history of nicotine dependence
CPT/HCPCS: 80048; 82565; 84132; 85025; 93880; 94664; J1644; J3370; J3480; J7050; J7613

== ENCOUNTER 2017-08-14 11:15 | Inpatient (IN) | payer MEDICARE, OTHER ==
[~2017-08-14] VITALS: Ht 180.3 cm; Wt 83.0 kg
[~2017-08-14 11:15] MED LIST changes: +CLON.1 PO; +COLL30T TOPICAL; +HEPA10003 SQ; +LATA.005%O EACH EYE; +SPIRCAP INH; +VANC1000P IV
[2017-08-14] MEDS ORDERED: Vancomycin Consult Pharmacy 1 EA OTHER SCH (12:00)
[2017-08-14] MEDS ORDERED: ACETAMINOPHEN 325 MG TAB PO PRN (12:00)
[2017-08-14] MEDS: LACTOBACILLUS ACIDOPHILUS TAB PO SCH ×2 (12:00→17:00)
[2017-08-14] MEDS: hydrALAZINE HCL 50 MG TAB PO SCH ×2 (12:00→17:50)
[2017-08-14] MEDS ORDERED: ALBUTEROL SULFATE 90 MCG/ACT HFA 8 GM INHALER INH PRN (12:00)
--- NOTE | 2017-08-14 12:08 | HHI.HP ---
[facility] Service [facility] Primary Care Physician La Nena Oliveira , R1 MD Jimmie Admission Diagnosis left foot infection Diagnoses: (1) Foot ulceration Diagnosis: Principal Chief Complaint: left foot infection Travel History International Travel<30 Days: No Contact w/Intl Traveler <30 Da: No Traveled to Known Affected Are: No History of Present Illness patient is a 72 y/o male -known to [place], with history of hypertension, COPD who was recently admitted to the hospital because of altered mental status and diabetic foot ulcer. during the recent admission he underwent Aortogram with left lower extremity angiograms, Left SFA and popliteal artery angioplasty and Right common femoral AngioSeal along with amputation left hallux with metatarsal and medial cuneiform left foot. he was started on IV antibiotic and discharge to acute rehab for further rehabilitation. he became very lethargic and found to have an elevated blood pressure for which he was transferred back to medical floor. he had neurological work-up including CT head and carotid dopper which were negative and later he was then transferred back to [facility] for further rehabilitation. he was seen by stockbroking dealer who recommended debridement of the left foot for which he was transferred back to medicine. Review of Systems Constitutional: DENIES: Fever, Weight loss, Chills, Night Sweats Eyes: DENIES: Blurred vision, Diplopia, Vision loss, Double Vision Ears, nose, mouth, throat: DENIES: Tinnitus, Vertigo, Throat pain, Epistaxis Respiratory: DENIES: Apneas, Cough, Snoring, Wheezing, Hemoptysis, Sputum production, Shortness of breath Cardiovascular: DENIES: Chest pain, Palpitations, Syncope, Dyspnea on Exertion , PND, Lower Extremity Edema, Orthopnea, Claudication Gastrointestinal: DENIES: Abdominal pain, Black stools, Bloody stools, Constipation, Diarrhea, Nausea, Vomiting, Difficulty Swallowing, Anorexia Genitourinary: DENIES: Urinary frequency, Urgency, Hematuria, Dysuria Musculoskeletal: DENIES: Joint pain, Muscle aches, Stiffness, Joint Swelling Integumentary: DENIES: Rash Neurologic: DENIES: Abnormal gait, Headache, Localized weakness, Paresthesias, Seizures, Speech Problems, Tremor, Poor Balance Psychiatric: DENIES: Anxiety, Confusion, Mood changes, Depression, Hallucinations, Agitation, Suicidal Ideation, Homicidal Ideation, Delusions Past Family Social History Past Medical History hypertension COPD carotid artery disease Past Surgical History recent Aortogram with left lower extremity angiograms, Left SFA and popliteal artery angioplasty and Right common femoral AngioSeal along with amputation left hallux with metatarsal and medial cuneiform left foot Reported Medications Reported Medications Reported Medications Iron (Ferrous Sulfate) 325 Mg Cap 325 Mg PO BIDPC Flexeril (Cyclobenzaprine HCl) 10 Mg Tab 10 Mg PO Q8HR Gabapentin 100 Mg Cap 100 Mg PO TID Donepezil 10 Mg Tab 10 Mg PO HS Atorvastatin (Atorvastatin Calcium) 40 Mg Tab 40 Mg PO HS Travatan Z Opth Drops (Travoprost) 0.004 % Soln 1 Drop EACH EYE HS Citalopram (Citalopram Hydrobromide) 40 Mg Tab 60 Mg PO DAILY Please take 1.5 pills daily Lisinopril 40 Mg Tab 40 Mg PO HS Aspirin 81 Low Dose (Aspirin) 81 Mg Chew 81 Mg CHEW DAILY Advair Diskus Inh (Fluticasone-Salmeterol Inh) 500-50 Mcg/Blist Aer 1 Puff INH BID Rinse mouth after use. Oxycodone-Acetaminophen 5-325 mg Tab 1 Tab PO Q6H PRN Combivent Respimat Inh (Ipratropium-Albuterol Inh) 20-100 Detention/Act Aero 1 Puff INH QID Ventolin Hfa 18 GM Inh (Albuterol Sulfate) 90 Mcg/Act Aer 2 Puff INH Q4-6H PRN Diltiazem HCl ER (Diltiazem HCl Coated Beads) 240 Mg Cap 240 Mg PO BID Vitamin C (Ascorbic Acid) 1,000 Mg Tablet.er 1,000 Mg PO DAILY Fluticasone Nasal Baxter 50 Mcg/Act Naspr 50 Mcg EACH NARE BID 50 mcg/spray Lactobacillus Acidophilus 1 Tab Tab 1 Tab PO TIDAC Multi Vitamin and Mineral (Multiple Vitamins W/ Minerals) 1 Tab Tab 1 Tab PO DAILY Allergies: Coded Allergies: Sulfa (Sulfonamide Antibiotics) (Verified Allergy, Severe, Anaphylaxis, ) metronidazole (Verified Allergy, Severe, Fever, colitis, 07/07/17) While being treated for Cdiff. Doubt if true allergy. penicillin G (Verified Allergy, Severe, Anaphylaxis, 07/07/17) sulfamethoxazole (Verified Allergy, Severe, Anaphylaxis, 07/07/17) trimethoprim (Verified Allergy, Severe, Anaphylaxis, 07/07/17) erythromycin base (Verified Allergy, Intermediate, Rash, 07/07/17) MRI PRECAUTION (Verified Adverse Reaction, Severe, BLADDER STIMULATOR, ) BRAIN ONLY ON RECEIVE ONLY COIL, P.O. 01/11/17, DML meperidine (Verified Adverse Reaction, Unknown, Psychosis, 07/07/17) morphine (Verified Adverse Reaction, Unknown, Psychosis, 07/07/17) Uncoded Allergies: surgical tape (Allergy, Severe, 12/15/13) Family History not relevant to this admission. Social History no smoking or drinking. Physical Exam Physical Exam GENERAL: This is a well-nourished, well-developed patient, in no apparent distress. SKIN: No rashes, ecchymoses or lesions. Cool and dry. HEAD: Atraumatic. Normocephalic. No temporal or scalp tenderness. EYES: Pupils equal round and reactive. Extraocular motions intact. No scleral icterus. No injection or drainage. ENT: Nose without bleeding, purulent drainage or septal hematoma. Throat without erythema, tonsillar hypertrophy or exudate. Uvula midline. Airway patent. NECK: Trachea midline. No JVD or lymphadenopathy. Supple, nontender, no meningeal signs. CARDIOVASCULAR: Regular rate and rhythm without murmurs, gallops, or rubs. RESPIRATORY: Clear to auscultation. Breath sounds equal bilaterally. No wheezes , rales, or rhonchi. GASTROINTESTINAL: Abdomen soft, non-tender, nondistended. No hepato-splenomegaly , or palpable masses. No guarding. MUSCULOSKELETAL: left foot covered with clean dressing. NEUROLOGICAL: Awake and alert. Cranial nerves II through XII intact. Motor and sensory grossly within normal limits. Five out of 5 muscle strength in all muscle groups. Normal speech. Caprini VTE Risk Assessment Caprini VTE Risk Assessment: Mod/High Risk (score >= 2) (awaiting surgical intervention.) Caprini Risk Assessment Model Point Value = 1 Point Value = 2 Point Value = 3 Point Value = 5 Age 41-60 Minor surgery BMI > 25 kg/m2 Swollen legs Varicose veins or History of unexplained or recurrent spontaneous Oral contraceptives or hormone replacement Sepsis (< 1 month) Serious lung disease, including pneumonia (< 1 month) Abnormal pulmonary function Acute myocardial infarction Congestive heart failure (< 1 month) History of inflammatory bowel disease Medical patient at bed rest Age 61-74 Arthroscopic surgery Major open surgery (> 45 min) Laparoscopic surgery (> 45 min) Malignancy Confined to bed (> 72 hours) Immobilizing plaster cast Central venous access Age >= 75 History of VTE Family history of VTE Factor V Leiden Prothrombin [id number] Lupus anticoagulant Anticardiolipin antibodies Elevated serum homocysteine Heparin-induced thrombocytopenia Other congenital or acquired thrombophilia Stroke (< 1 month) Elective arthroplasty Hip, pelvis, or leg fracture Acute spinal cord injury (< 1 month) Prophylaxis Regimen Total Risk Factor Score Risk Level Prophylaxis Regimen 0-1 Low Early ambulation 2 Moderate Order ONE of the following: *Sequential Compression Device (SCD) *Heparin 5000 units SQ BID 3-4 Higher Order ONE of the following medications: *Heparin 5000 units SQ TID *Enoxaparin/Lovenox 40 mg SQ daily (WT < 150 kg, CrCl > 30 mL/min) *Enoxaparin/Lovenox 30 mg SQ daily (WT < 150 kg, CrCl > 10-29 mL/min) *Enoxaparin/Lovenox 30 mg SQ BID (WT < 150 kg, CrCl > 30 mL/min) AND/OR *Sequential Compression Device (SCD) 5 or more Highest Order ONE of the following medications: *Heparin 5000 units SQ TID (Preferred with Epidurals) *Enoxaparin/Lovenox 40 mg SQ daily (WT < 150 kg, CrCl > 30 mL/min) *Enoxaparin/Lovenox 30 mg SQ daily (WT < 150 kg, CrCl > 10-29 mL/min) *Enoxaparin/Lovenox 30 mg SQ BID (WT < 150 kg, CrCl > 30 mL/min) AND *Sequential Compression Device (SCD) Assessment and Plan Assessment and Plan A/P -ischemic foot ulcer with history of MRSA wound s/p recent 1. Aortogram with left lower extremity angiograms 2. Left SFA and popliteal artery angioplasty to 5 mm. 3. Right common femoral AngioSeal. s/p recent Amputation left hallux with metatarsal and medial cuneiform left foot continue IV Vancomycin till 08/27/2017- per ID- f/u with podiatry and vascular as needed. plan for debridement of the necrotic tissue and wound vac placement tomorrow. continue with rehab efforts. hypertension- overall better controlled;continue lisinopril,hydralazine, cardizem and clonidine- will monitor and adjust the regimen as needed. anemia of chronic disease;H/H fairly stable- will monitor H/H periodically. continue ferrous sulfate. Dementia; continue Aricept COPD with no exacerbation; resumed spiriva- neb treatment as needed DVT prophylaxis with subq Heparin; this will be resumed after surgical intervention- when ok with podiatry Discussed Condition With the patient and the RN. Physician Certification 2 Midnight Certification Type: Admission for Inpatient Services Order for Inpatient Services The services are ordered in accordance with Medicare regulations or non- Medicare payer requirements, as applicable. In the case of services not specified as inpatient-only, they are appropriately provided as inpatient services in accordance with the 2-midnight benchmark. Estimated LOS (days): 2 days is the estimated time the patient will need to remain in the hospital, assuming treatment plan goals are met and no additional complications. Post-Hospital Plan: Inpatient Rehab Physician Certification 2 Midnight Certification Type: Admission for Inpatient Services Order for Inpatient Services The services are ordered in accordance with Medicare regulations or non- Medicare payer requirements, as applicable. In the case of services not specified as inpatient-only, they are appropriately provided as inpatient services in accordance with the 2-midnight benchmark. Estimated LOS (days): 2 days is the estimated time the patient will need to remain in the hospital, assuming treatment plan goals are met and no additional complications. Post-Hospital Plan: Inpatient Rehab Problem Qualifiers (1) Foot ulceration: Alison Ceja MD Aug 14, 2017 12:08
[2017-08-14] MEDS ORDERED: ENALAPRILAT 1.25 MG/ML VIAL IV PUSH PRN (12:15)
[2017-08-14 12:46] VITALS: BP 174/72; PULSE 53; RESP 18; TEMP 98; O2SAT 98
[2017-08-14] MEDS: GABAPENTIN 100 MG CAP PO SCH ×2 (13:00→17:50)
[2017-08-14] MEDS ORDERED: NON-FORMULARY DRUG (Ipratropium-Albuterol Inh (Combivent Respimat Inh) 1 PUFF) INH SCH (13:00)
[2017-08-14] MEDS: cloNIDine HCL 0.1 MG TAB PO SCH ×2 (14:00→20:46)
[2017-08-14] MEDS: CYCLOBENZAPRINE HCL 10 MG TAB PO SCH ×2 (14:00→20:49)
[2017-08-14] MEDS: ACETAMINOPHEN/HYDROcodone 325 MG/5 MG TAB PO PRN ×2 (15:03→20:47)
[2017-08-14 16:00] VITALS: BP 143/64; PULSE 57; RESP 18; TEMP 98; O2SAT 98
[2017-08-14] MEDS: VANCOMYCIN INJ 1,250 MG in SODIUM CHLOR 0.9% 250 ML INJ 250 ML IV SCH (16:00)
--- NOTE | 2017-08-14 17:07 | PD.VS.PN ---
Subjective Subjective/Hospital Course Pt readm from rehab per patient, scheduled for L foot wound debridement tomorrow with podiatry Objective Vitals/I&O Date Time Temp Pulse Resp B/P (MAP) Pulse Ox O2 Delivery O2 Flow Rate FiO2 08/14/17 12:46 98.0 53 18 174/72 (106) 98 Physical Exam L foot with palpable DP s/p endo revasc on 07/21 foot wound great distally but proximal near tarsal has necrotic tissue Assessment and Plan Plan Agree with operative debridement; perfusion adequate to heal Pt understands ultimately may require BKA but wants to continue aggressive care for limb salvage will follow García Anand MD Aug 14, 2017 17:07
[2017-08-14] MEDS: ALBUTEROL SULFATE 90 MCG/ACT HFA 8 GM INHALER INH SCH ×2 (17:47→21:00)
[2017-08-14] MEDS: FERROUS SULFATE 325 MG (65 MG ELEMENTAL IRON) TAB PO SCH (17:50)
[2017-08-14] MEDS ORDERED: ALBUTEROL SULFATE 90 MCG/ACT HFA 8 GM INHALER INH SCH (18:00)
[2017-08-14 20:00] VITALS: BP 162/70; PULSE 62; RESP 18; TEMP 98.5; O2SAT 97
[2017-08-14] MEDS: LATANOPROST 0.005% OPHT SOLN 2.5 ML BTL EACH EYE SCH (20:44)
[2017-08-14] MEDS: BUDESONIDE-FORMOTEROL 160/4.5 MCG INHALER INH SCH (20:46)
[2017-08-14] MEDS: ATORVASTATIN 40 MG TAB PO SCH (20:46)
[2017-08-14] MEDS: DONEPEZIL HCL 5 MG TAB PO SCH (20:47)
[2017-08-14] MEDS: DILTIAZEM-CD 240 MG CAP ER PO SCH (20:47)
[2017-08-14] MEDS: LISINOPRIL 20 MG TAB PO SCH (20:47)
[2017-08-14] MEDS ORDERED: NON-FORMULARY DRUG (Travoprost Opth Drops (Travatan Z Opth Drops) 1 DROP) EACH EYE SCH (21:00)
[2017-08-14] MEDS: SODIUM CHLOR 0.9% 1000 ML INJ 1,000 ML IV SCH (21:50)
[2017-08-15] VITALS: BP 143/71; PULSE 82; RESP 18; TEMP 97.9; O2SAT 98
[2017-08-15] MEDS: hydrALAZINE HCL 50 MG TAB PO SCH ×4 (01:13→18:09)
[2017-08-15] MEDS: ACETAMINOPHEN/HYDROcodone 325 MG/5 MG TAB PO PRN ×4 (01:13→21:15)
[2017-08-15 04:00] VITALS: BP 152/68; PULSE 52; RESP 18; TEMP 97.6; O2SAT 97
[2017-08-15] MEDS: CYCLOBENZAPRINE HCL 10 MG TAB PO SCH ×3 (05:45→20:56)
[2017-08-15] MEDS: cloNIDine HCL 0.1 MG TAB PO SCH ×3 (05:45→20:56)
[2017-08-15 08:00] VITALS: BP 174/77; PULSE 88; RESP 16; TEMP 97.6; O2SAT 97
--- NOTE | 2017-08-15 08:43 | HHI.PR ---
Subjective Remarks f/u; ischemic foot ulcer resting comfortably with no distress. pain is controlled. no fever. awaiting surgery. family at the bedside. Objective Vitals Vital Signs Date Time Temp Pulse Resp B/P (MAP) Pulse Ox O2 Delivery O2 Flow Rate FiO2 08/15/17 04:00 97.6 52 18 152/68 (96) 97 08/15/17 00:00 97.9 82 18 143/71 (95) 98 08/14/17 20:00 98.5 62 18 162/70 (100) 97 08/14/17 16:00 98.0 57 18 143/64 (90) 98 08/14/17 12:46 98.0 53 18 174/72 (106) 98 Result Diagram: 08/15/17 0605 Objective Remarks GENERAL: This is a well-nourished, well-developed patient, in no apparent distress. CARDIOVASCULAR: Regular rate and regular rhythm without murmurs, gallops, or rubs. RESPIRATORY: Clear to auscultation. Breath sounds equal bilaterally. No wheezes , rales, or rhonchi. GASTROINTESTINAL: Abdomen soft, non-tender, nondistended. Normal, active bowel sounds MUSCULOSKELETAL: left foot covered with clean dressing. NEURO: Alert & Oriented x4 to person, place, time, situation. Moves all ext x4 Medications and IVs Current Medications Pharmacy Profile Note 0 ml @ 0 mls/hr UNSCH OTHER ; Start 08/14/17 at 12:00 Acetaminophen/ Hydrocodone Bitart ([place] 5-325 Mg) 1 tab Q4H PRN PO PAIN 4-10 Last administered on 08/15/17 05:45; Start 08/14/17 at 12:00 Acetaminophen (Tylenol) 650 mg Q4H PRN PO FEVER/PAIN 1-3; Start 08/14/17 at 12: 00 Albuterol Sulfate (Proair Hfa Inh) 2 puff Q6HR PRN INH SHORTNESS OF BREATH Last administered on 08/14/17 20:48; Start 08/14/17 at 12:00 Atorvastatin Calcium (Lipitor) 40 mg HS PO Last administered on 08/14/17 20:46 ; Start 08/14/17 at 21:00 Citalopram Hydrobromide (CeleXA) 60 mg DAILY PO ; Start 08/15/17 at 09:00 Clonidine (Catapres) 0.1 mg Q8HR PO Last administered on 08/15/17 05:45; Start 08/14/17 at 14:00 Collagenase (Santyl Oint) 1 applic DAILY TOPICAL ; Start 08/15/17 at 09:00 Cyclobenzaprine HCl (Flexeril) 5 mg Q8HR PO Last administered on 08/15/17 05: 45; Start 08/14/17 at 14:00 Diltiazem HCl (Cardizem Cd) 240 mg BID PO Last administered on 08/14/17 20:47 ; Start 08/14/17 at 21:00 Donepezil HCl (Aricept) 10 mg HS PO Last administered on 08/14/17 20:47; Start 08/14/17 at 21:00 Gabapentin (Neurontin) 100 mg TID PO Last administered on 08/14/17 17:50; Start 08/14/17 at 13:00 Hydralazine HCl (Apresoline) 50 mg Q6HR PO Last administered on 08/15/17 05:45 ; Start 08/14/17 at 12:00 Lactobacillus Acidophilus (Lactinex) 1 tab TIDAC PO Last administered on 17:00; Start 08/14/17 at 12:00 Latanoprost (Xalatan 0.005% Opt Soln) 1 drop HS EACH EYE Last administered on 08/14/17 20:44; Start 08/14/17 at 21:00 Tiotropium [place] (Spiriva Inh) 18 mcg DAILY INH ; Start 08/15/17 at 09:00 Ascorbic Acid (Vitamin C) 1,000 mg DAILY PO ; Start 08/15/17 at 09:00 Ferrous Sulfate (Ferrous Sulfate) 325 mg BIDPC PO Last administered on 17:50; Start 08/14/17 at 18:00 Budesonide/ Formoterol Fumarate (Symbicort 160-4.5 Inh) 2 puff BID INH ; Start 08/14/17 at 21:00 Non-Formulary Medication 1 puff QID INH ; Start 08/14/17 at 13:00; Status UNV Lisinopril (Prinivil) 40 mg HS PO Last administered on 08/14/17 20:47; Start 08/14/17 at 21:00 Multivitamins/ Minerals Therapeutic (Theragran M Tab) 1 tab DAILY PO ; Start at 09:00 Non-Formulary Medication 1 drop HS EACH EYE ; Start 08/14/17 at 21:00; Status UNV Enalaprilat (Vasotec Inj) 1.25 mg Q8H PRN IV PUSH SBP> OR = 180, DBP> OR = 100 ; Start 08/14/17 at 12:15 Sodium Chloride 1,000 ml @ 70 mls/hr [id number] IV ; Start 08/14/17 at 23:00 Tiotropium [place] (Spiriva Inh) 18 mcg DAILY INH ; Start 08/15/17 at 09:00; Status Cancel Albuterol Sulfate (Proair Hfa Inh) QID INH ; Start 08/14/17 at 18:00; Status Cancel Albuterol Sulfate (Proair Hfa Inh) 2 puff QID INH Last administered on t 21:00; Start 08/14/17 at 18:00 Vancomycin HCl 1250 mg/Sodium Chloride 262.5 ml @ 262.5 mls/ hr Q24H IV Last administered on 08/14/17t 16:00; Start 08/14/17 at 16:00 Miscellaneous Information SPECIFIC LAB TO BE .. ONCE ONCE .XX ; Start 08/15 at 15:45; Stop 08/15/17 at 15:46 A/P Assessment and Plan A/P -ischemic foot ulcer with history of MRSA wound s/p recent 1. Aortogram with left lower extremity angiograms 2. Left SFA and popliteal artery angioplasty to 5 mm. 3. Right common femoral AngioSeal. s/p recent Amputation left hallux with metatarsal and medial cuneiform left foot continue IV Vancomycin till 08/27/2017- per ID- plan for debridement of the necrotic tissue and wound vac placement today- podiatry and vascular surgery following. continue with rehab efforts. hypertension- overall better controlled;continue lisinopril,hydralazine, cardizem and clonidine- will monitor and adjust the regimen as needed. anemia of chronic disease;H/H fairly stable- will monitor H/H periodically. continue ferrous sulfate. Dementia; continue Aricept COPD with no exacerbation; resumed symbicort and spiriva- neb treatment as needed DVT prophylaxis with subq Heparin; this will be resumed after surgical intervention- when ok with podiatry Alison Ceja MD Aug 15, 2017 08:43
[2017-08-15] MEDS: TIOTROPIUM BROMIDE 18 MCG INH INH SCH (09:00)
[2017-08-15] MEDS ORDERED: TIOTROPIUM BROMIDE 18 MCG INH INH SCH (09:00)
[2017-08-15] MEDS: BUDESONIDE-FORMOTEROL 160/4.5 MCG INHALER INH SCH ×3 (09:00→21:20)
[2017-08-15] MEDS: COLLAGENASE OINT 30 GM TUBE TOPICAL SCH (09:00)
[2017-08-15] MEDS: ALBUTEROL SULFATE 90 MCG/ACT HFA 8 GM INHALER INH SCH ×4 (09:00→20:57)
[2017-08-15] MEDS: ASCORBIC ACID 500 MG TAB PO SCH (09:02)
[2017-08-15] MEDS: FERROUS SULFATE 325 MG (65 MG ELEMENTAL IRON) TAB PO SCH ×2 (09:02→18:09)
[2017-08-15] MEDS: MULTIVITAMINS/MINERALS THERAPEUTIC TAB PO SCH (09:02)
[2017-08-15] MEDS: CITALOPRAM HYDROBROMIDE 40 MG TAB PO SCH (09:02)
[2017-08-15] MEDS: DILTIAZEM-CD 240 MG CAP ER PO SCH ×2 (09:02→20:55)
[2017-08-15] MEDS: GABAPENTIN 100 MG CAP PO SCH ×3 (09:03→18:09)
[2017-08-15] MEDS: LACTOBACILLUS ACIDOPHILUS TAB PO SCH ×3 (09:03→15:43)
[2017-08-15] MEDS ORDERED: BUPIVACAINE HCL PF 0.5% 30 ML VIAL ONE (10:14)
[2017-08-15] MEDS ORDERED: DO NOT ADM ANY ANTICOAGULANT DRUGS PRN (10:34)
[2017-08-15 12:00] VITALS: BP 159/67; PULSE 55; RESP 16; TEMP 97.2; O2SAT 94
[2017-08-15] MEDS ORDERED: PROPOFOL 200 MG/20 ML AMP IV ONE (12:00)
[2017-08-15] MEDS ORDERED: LIDOCAINE HCL 1% PF 5 ML AMPULE OTHER ONE (12:00)
[2017-08-15] MEDS ORDERED: ONDANSETRON HCL 4 MG/2 ML VIAL IV PUSH ONE (12:00)
[2017-08-15] MEDS: VANCOMYCIN INJ 1,250 MG in SODIUM CHLOR 0.9% 250 ML INJ 250 ML IV SCH (15:44)
[2017-08-15] MEDS ORDERED: PHARMACY ORDERED LAB ONE (15:45)
[2017-08-15 16:00] VITALS: BP_SYST 135; BP_SYST 99; BP_DIAS 58; BP_DIAS 82; PULSE 61; PULSE 68; RESP 16; RESP 18; TEMP 97.4; TEMP 97.8; O2SAT 97
[2017-08-15 20:00] VITALS: BP 134/62; PULSE 58; RESP 18; TEMP 98.5; O2SAT 97
[2017-08-15] MEDS: DONEPEZIL HCL 5 MG TAB PO SCH (20:55)
[2017-08-15] MEDS: LISINOPRIL 20 MG TAB PO SCH (20:56)
[2017-08-15] MEDS: ATORVASTATIN 40 MG TAB PO SCH (20:56)
[2017-08-15] MEDS: LATANOPROST 0.005% OPHT SOLN 2.5 ML BTL EACH EYE SCH (20:58)
[2017-08-15] MEDS: SODIUM CHLOR 0.9% 1000 ML INJ 1,000 ML IV SCH (21:20)
--- NOTE | 2017-08-15 22:31 | MP ---
cc: JOSE FERNANDO DPM DATE OF SURGERY 08/15/17 DATE OF 1945 PREOPERATIVE DIAGNOSIS Left foot chronic wound. POSTOPERATIVE DIAGNOSIS Left foot chronic wound. PROCEDURE Left foot wound debridement. ANESTHESIOLOGIST Dr. Pool. ANESTHESIA MAC. HEMOSTASIS Left ankle tourniquet at 250 mmHg for 25 minutes. ESTIMATED BLOOD LOSS Less than 2 cc. MATERIALS None. INJECTABLES Postoperatively 20 cc of 0.25% Marcaine plain. 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 The patient is under consideration for a BKA but is refusing and along with vascular we are attempting a limb salvage. The patient does understand that he is still at risk for a BKA but would like to continue aggressive care for limb salvage. Risks, benefits, pros and cons were discussed with the patient. He freely consents to surgical intervention. No guarantees were given or implied. This was also discussed with his in extended detail and all questions answered. PROCEDURE IN DETAIL The patient brought into the operating room, placed on the operating room table supine position after MAC anesthesia was administered. The left foot was prepped, scrubbed and draped in usual sterile aseptic manner. Tourniquet was inflated up to 250 mmHg on the left ankle. Attention was then directed to the left foot where aggressive curettage was used to debride all necrotic nonviable tissue as well as with a #15 blade, sharp excisional debridement of necrotic and nonviable tissue as well too. The patient is on scheduled antibiotics. After surgical debridement the incision was pulse lavaged with normal sterile saline only. There are no antibiotics impregnated given his extensive allergy reactions. The wound was clean and then dressed with Xeroform, 4x4s, Jean and a light Raphael wrap. A left ankle block was carried out. The patient tolerated the procedure. At completion be transferred to PACU for brief period of postop monitoring after which he will be discharged to the floor. The tourniquet was deflated with prompt hyperemic response digits 1-5 on the left. We will plan for beginning a wound VAC on 08/17/2017. Jose Fernando DPM SR/RAYNE /9:14 PM /10:11 PM
[2017-08-16] VITALS (8 sets, daily range): BP systolic 139–196; BP diastolic 64–84; PULSE 53–68; RESP 16–18; TEMP 98.2–98.8; O2SAT 95–97
[2017-08-16] MEDS: hydrALAZINE HCL 50 MG TAB PO SCH ×4 (00:03→16:33)
[2017-08-16] MEDS: ACETAMINOPHEN/HYDROcodone 325 MG/5 MG TAB PO PRN ×4 (01:19→16:34)
[2017-08-16] MEDS: cloNIDine HCL 0.1 MG TAB PO SCH ×3 (05:36→21:16)
[2017-08-16] MEDS: CYCLOBENZAPRINE HCL 10 MG TAB PO SCH ×3 (05:37→21:16)
[2017-08-16 06:08] LABS: AUTOMATED NEUTROPHIL # 6.6 TH/MM3 (1.8-7.7); BASOPHIL # 0.1 TH/MM3 (0-0.2); BASOPHIL % 0.8 % (0.0-2.0); EOSINOPHIL # 0.3 TH/MM3 (0-0.4); EOSINOPHIL % 2.9 % (0.0-4.0); HEMATOCRIT 22.9 % (39.0-51.0); HEMO FLAGS DIFF FINAL; LYMPH % 17.1 % (9.0-44.0); LYMPHOCYTE # 1.7 TH/MM3 (1.0-4.8); MEAN CORPUSCULAR HGB CONC 32.5 % (32.0-36.0); MONO % 11.3 % (0.0-8.0); NEUT % 67.9 % (16.0-70.0); PLATELET COUNT 327 TH/MM3 (150-450); RED BLOOD COUNT 2.76 MIL/MM3 (4.50-5.90); RED CELL DISTRIBUTION WIDTH 18.4 % (11.6-17.2); WHITE BLOOD COUNT 9.7 TH/MM3 (4.0-11.0)
[2017-08-16 06:35] LABS: BICARBONATE 28.1 MEQ/L (21.0-32.0); POTASSIUM 3.9 MEQ/L (3.5-5.1)
[2017-08-16] MEDS: LACTOBACILLUS ACIDOPHILUS TAB PO SCH ×3 (09:18→16:32)
[2017-08-16] MEDS: FERROUS SULFATE 325 MG (65 MG ELEMENTAL IRON) TAB PO SCH ×2 (09:18→16:33)
[2017-08-16] MEDS: DILTIAZEM-CD 240 MG CAP ER PO SCH (09:18)
[2017-08-16] MEDS: GABAPENTIN 100 MG CAP PO SCH ×3 (09:18→16:33)
[2017-08-16] MEDS: CITALOPRAM HYDROBROMIDE 40 MG TAB PO SCH (09:19)
[2017-08-16] MEDS: MULTIVITAMINS/MINERALS THERAPEUTIC TAB PO SCH (09:19)
[2017-08-16] MEDS: ASCORBIC ACID 500 MG TAB PO SCH (09:19)
[2017-08-16] MEDS: COLLAGENASE OINT 30 GM TUBE TOPICAL SCH (09:20)
[2017-08-16] MEDS: ALBUTEROL SULFATE 90 MCG/ACT HFA 8 GM INHALER INH SCH ×4 (09:21→21:00)
[2017-08-16] MEDS: TIOTROPIUM BROMIDE 18 MCG INH INH SCH (09:21)
[2017-08-16] MEDS: BUDESONIDE-FORMOTEROL 160/4.5 MCG INHALER INH SCH ×2 (09:22→21:00)
--- NOTE | 2017-08-16 12:31 | HHI.PR ---
Subjective Remarks Follow-up for left wound status post surgical debridement. Patient is currently doing well. Pain is well-controlled. No fever or chills. Requests changing heart healthy diet to regular diet. Objective Vitals Vital Signs Date Time Temp Pulse Resp B/P (MAP) Pulse Ox O2 Delivery O2 Flow Rate FiO2 08/16/17 12:18 98.4 61 18 170/72 (104) 97 08/16/17 10:25 97 21 08/16/17 08:52 98.3 54 16 143/65 (91) 97 08/16/17 05:00 98.2 53 18 139/68 (91) 97 08/16/17 00:26 98.6 63 18 163/70 (101) 96 08/15/17 20:00 98.5 58 18 134/62 (86) 97 08/15/17 16:00 97.8 61 16 135/82 (99) 97 08/15/17 15:50 21 I/O 08/15/17 08/15/17 08/15/17 08/16/17 08/16/17 08/16/17 07:00 15:00 23:00 07:00 15:00 23:00 Intake Total 640 ml Output Total 100 ml 650 ml Balance 540 ml -650 ml Intake Oral 240 ml Other 400 ml Output Urine Total 100 ml 650 ml Estimated Blood Loss 0 ml Result Diagram: 08/16/17 0546 08/16/17 0546 Objective Remarks GENERAL: Alert, NAD. SKIN: Warm and dry. HEAD: Normocephalic. EYES: No scleral icterus. No injection or drainage. NECK: Supple, trachea midline. No JVD or lymphadenopathy. CARDIOVASCULAR: Regular rate and rhythm without murmurs, gallops, or rubs. RESPIRATORY: Breath sounds equal bilaterally. No accessory muscle use. GASTROINTESTINAL: Abdomen soft, non-tender, nondistended. MUSCULOSKELETAL: No cyanosis, or edema. Left foot wrapped in dressing. BACK: Nontender without obvious deformity. No CVA tenderness. Procedures 08/15/2017 Left foot wound debridement. A/P Problem List: (1) Foot ulceration ICD Code: L97.509 - Non-pressure chronic ulcer of other part of unspecified foot with unspecified severity Status: Acute (2) HTN (hypertension) ICD Code: I10 - Essential (primary) hypertension Status: Chronic (3) Hyperlipidemia ICD Code: E78.5 - Hyperlipidemia Status: Chronic (4) COPD (chronic obstructive pulmonary disease) ICD Code: J44.9 - Chronic obstructive pulmonary disease Status: Chronic Assessment and Plan Mr. Garcia is a 72-year-old male with a history of hypertension, COPD who was admitted to the hospital on 08/14/2017 due to altered mental status and left foot ulcer. Podiatry performed left foot wound debridement on 08/15/2017. Patient has a history of MRSA wound. Sexual diseases recommended vancomycin until 08/27/2017. - Left foot ulcer - Status post surgical debridement by podiatry. - Continue vancomycin until 08/27/2017 per infectious disease. - Vascular surgery evaluated and determined that his perfusion is adequate to heal. In future patient may need below-knee amputation. - Per podiatry one pack to begin on 08/17/2017. - Hypertension - Hyperlipidemia - Currently on lisinopril 40 mg daily at bedtime, hydralazine 50 mg every 6 hours, diltiazem 240 mg by mouth twice a day - No clear indication for using diltiazem for blood pressure. Patient does not appear to have any history of dysrhythmia including atrial fibrillation. - His blood pressure is still somewhat elevated in the 170s systolic. We'll start amlodipine 5 mg daily and hold Diltiazem. - Continue atorvastatin 40 mg daily at bedtime. - COPD - Continue albuterol inhaler, Symbicort Full code. Will consider pharmacological DVT prophylaxis if okay with podiatry. Problem Qualifiers (1) Foot ulceration: Deanne Cheng DO Aug 16, 2017 12:31
--- NOTE | 2017-08-16 12:51 | PD.POD ---
Subjective Podiatric Problems s/p left foot wound debridement. DOS 08/15/17 Patient relates 05/25 pain but is resting comfortably sleeping and in NAD Past Med/Surg/Social History Past Medical History Endocrine: REPORTS HX OF: Diabetes mellitus, Graves disease Cardiovascular: REPORTS HX OF: Hypertension Gastrointestinal: REPORTS HX OF: Other GI history (prior GI bleed, pt finished c. diff treatment on friday 05/25) Musculoskeletal: REPORTS HX OF: Other musculoskeletal hx (L. shoulder pain worsen after his arm was injured in latest hospitalization) Cancer/Hematology: REPORTS HX OF: Anemia Past Surgical History Gastrointestinal: DENIES HX OF: Colectomy, total Musculoskeletal: REPORTS HX OF: Other musculoskeletal srg (resection of the first metatarsal head and sesamoids) Social History Smoking Status: Former Smoker Objective Vital Signs Vital Signs Date Time Temp Pulse Resp B/P (MAP) Pulse Ox O2 Delivery O2 Flow Rate FiO2 08/16/17 12:18 98.4 61 18 170/72 (104) 97 08/16/17 10:25 97 21 08/16/17 08:52 98.3 54 16 143/65 (91) 97 08/16/17 05:00 98.2 53 18 139/68 (91) 97 08/16/17 00:26 98.6 63 18 163/70 (101) 96 08/15/17 20:00 98.5 58 18 134/62 (86) 97 08/15/17 16:00 97.8 61 16 135/82 (99) 97 08/15/17 15:50 21 Coded Allergies: Sulfa (Sulfonamide Antibiotics) (Verified Allergy, Severe, Anaphylaxis, ) metronidazole (Verified Allergy, Severe, Fever, colitis, 07/07/17) While being treated for Cdiff. Doubt if true allergy. penicillin G (Verified Allergy, Severe, Anaphylaxis, 07/07/17) sulfamethoxazole (Verified Allergy, Severe, Anaphylaxis, 07/07/17) trimethoprim (Verified Allergy, Severe, Anaphylaxis, 07/07/17) erythromycin base (Verified Allergy, Intermediate, Rash, 07/07/17) MRI PRECAUTION (Verified Adverse Reaction, Severe, BLADDER STIMULATOR, ) BRAIN ONLY ON RECEIVE ONLY COIL, P.O. 01/11/17, DML meperidine (Verified Adverse Reaction, Unknown, Psychosis, 07/07/17) morphine (Verified Adverse Reaction, Unknown, Psychosis, 07/07/17) Uncoded Allergies: surgical tape (Allergy, Severe, 12/15/13) Other Results Laboratory Tests Test 08/15/17 06:05 08/15/17 15:45 08/16/17 05:46 Creatinine 0.97 MG/DL 1.17 MG/DL Estimat Glomerular Filtration Rate 76 ML/MIN 61 ML/MIN Vancomycin Level Trough 17.4 MCG/ML White Blood Count 9.7 TH/MM3 Red Blood Count 2.76 MIL/MM3 Hemoglobin 7.4 GM/DL Hematocrit 22.9 % Mean Corpuscular Volume 83.0 FL Mean Corpuscular Hemoglobin 27.0 PG Mean Corpuscular Hemoglobin Concent 32.5 % Red Cell Distribution Width 18.4 % Platelet Count 327 TH/MM3 Mean Platelet Volume 7.5 FL Neutrophils (%) (Auto) 67.9 % Lymphocytes (%) (Auto) 17.1 % Monocytes (%) (Auto) 11.3 % Eosinophils (%) (Auto) 2.9 % Basophils (%) (Auto) 0.8 % Neutrophils # (Auto) 6.6 TH/MM3 Lymphocytes # (Auto) 1.7 TH/MM3 Monocytes # (Auto) 1.1 TH/MM3 Eosinophils # (Auto) 0.3 TH/MM3 Basophils # (Auto) 0.1 TH/MM3 CBC Comment DIFF FINAL Differential Comment Blood Urea Nitrogen 22 MG/DL Random Glucose 110 MG/DL Calcium Level 8.9 MG/DL Sodium Level 141 MEQ/L Potassium Level 3.9 MEQ/L Chloride Level 105 MEQ/L Carbon Dioxide Level 28.1 MEQ/L Anion Gap 8 MEQ/L Exam-Podiatry Dermatological Exam Ulcers: Location/Measurements LLE warm distally Perfused. No strikethrough to outer dressing. Assessment & Plan Diagnosis: (1) Partial nontraumatic amputation of foot ICD Codes: Z89.439 - Acquired absence of unspecified foot (2) MRSA (methicillin resistant staph aureus) culture positive ICD Codes: Z22.322 - Carrier or suspected carrier of Methicillin resistant Staphylococcus aureus Status: Acute A/P s/p Left foot wound debridement with Dr Fernando DOS 08/15/17 limb salvage. Plan for wound VAC left foot begin 08/17/17 Order for wound VAC placed. Dr Marsh begin coverage on 08/17/17 Linsey Fernando DPM Aug 16, 2017 12:51
[2017-08-16] MEDS ORDERED: amLODIPine BESYLATE 5 MG TAB PO ONE (13:30)
[2017-08-16] MEDS: VANCOMYCIN INJ 1,250 MG in SODIUM CHLOR 0.9% 250 ML INJ 250 ML IV SCH (14:44)
[2017-08-16] MEDS ORDERED: HYDROmorphone HCL PF 1 MG/ML VIAL IV PUSH PRN (18:45)
[2017-08-16] MEDS: DONEPEZIL HCL 5 MG TAB PO SCH (21:15)
[2017-08-16] MEDS: ATORVASTATIN 40 MG TAB PO SCH (21:15)
[2017-08-16] MEDS: LISINOPRIL 20 MG TAB PO SCH (21:15)
[2017-08-16] MEDS: oxyCODONE/ACETAMINOPHEN 7.5 MG/325 MG TAB PO PRN (21:16)
[2017-08-16] MEDS: LATANOPROST 0.005% OPHT SOLN 2.5 ML BTL EACH EYE SCH (21:16)
[2017-08-17] VITALS: BP 142/65; PULSE 58; RESP 18; TEMP 98.6; O2SAT 95
[2017-08-17] MEDS: hydrALAZINE HCL 50 MG TAB PO SCH ×3 (00:47→12:28)
[2017-08-17] MEDS: oxyCODONE/ACETAMINOPHEN 7.5 MG/325 MG TAB PO PRN ×4 (01:40→16:30)
[2017-08-17 05:00] VITALS: BP 139/63; PULSE 52; RESP 18; TEMP 98; O2SAT 96
[2017-08-17] MEDS: cloNIDine HCL 0.1 MG TAB PO SCH ×2 (05:59→14:54)
[2017-08-17] MEDS: CYCLOBENZAPRINE HCL 10 MG TAB PO SCH ×2 (06:00→12:27)
[2017-08-17 08:55] VITALS: BP 119/57; PULSE 53; RESP 16; TEMP 97.7; O2SAT 96
[2017-08-17] MEDS: BUDESONIDE-FORMOTEROL 160/4.5 MCG INHALER INH SCH (09:00)
[2017-08-17] MEDS ORDERED: amLODIPine BESYLATE 5 MG TAB PO SCH (09:00)
[2017-08-17] MEDS: TIOTROPIUM BROMIDE 18 MCG INH INH SCH (09:00)
[2017-08-17] MEDS: ALBUTEROL SULFATE 90 MCG/ACT HFA 8 GM INHALER INH SCH ×2 (09:00→12:29)
[2017-08-17] MEDS: COLLAGENASE OINT 30 GM TUBE TOPICAL SCH (09:00)
[2017-08-17] MEDS: LACTOBACILLUS ACIDOPHILUS TAB PO SCH ×3 (09:11→16:22)
[2017-08-17] MEDS: MULTIVITAMINS/MINERALS THERAPEUTIC TAB PO SCH (09:13)
[2017-08-17] MEDS: ASCORBIC ACID 500 MG TAB PO SCH (09:13)
[2017-08-17] MEDS: FERROUS SULFATE 325 MG (65 MG ELEMENTAL IRON) TAB PO SCH (09:14)
[2017-08-17] MEDS: CITALOPRAM HYDROBROMIDE 40 MG TAB PO SCH (09:14)
[2017-08-17] MEDS: GABAPENTIN 100 MG CAP PO SCH ×2 (09:14→12:26)
[2017-08-17 09:34] VITALS: O2SAT 98
--- NOTE | 2017-08-17 09:46 | HHI.PR ---
Subjective Remarks Follow-up for left wound status post surgical debridement. Patient is doing well. Denies any chest pain, shortness of breath, fever or chills. Objective Vitals Vital Signs Date Time Temp Pulse Resp B/P (MAP) Pulse Ox O2 Delivery O2 Flow Rate FiO2 08/17/17 09:34 98 08/17/17 08:55 97.7 53 16 119/57 (77) 96 08/17/17 05:00 98.0 52 18 139/63 (88) 96 08/17/17 00:00 98.6 58 18 142/65 (90) 95 08/16/17 20:00 98.5 68 18 196/84 (121) 95 08/16/17 16:38 98.7 68 18 174/74 (107) 96 08/16/17 12:18 98.4 61 18 170/72 (104) 97 08/16/17 10:25 97 21 I/O 08/16/17 08/16/17 08/16/17 08/17/17 08/17/17 08/17/17 07:00 15:00 23:00 07:00 15:00 23:00 Intake Total 555 ml Output Total 650 ml 800 ml 1000 ml Balance -650 ml -245 ml -1000 ml Intake Oral 555 ml Output Urine Total 650 ml 800 ml 1000 ml # Bowel Movements 1 0 Result Diagram: 08/16/1746 08/16/1746 Objective Remarks GENERAL: Alert, NAD. SKIN: Warm and dry. HEAD: Normocephalic. EYES: No scleral icterus. No injection or drainage. NECK: Supple, trachea midline. No JVD or lymphadenopathy. CARDIOVASCULAR: Regular rate and rhythm without murmurs, gallops, or rubs. RESPIRATORY: Breath sounds equal bilaterally. No accessory muscle use. GASTROINTESTINAL: Abdomen soft, non-tender, nondistended. MUSCULOSKELETAL: No cyanosis, or edema. Left foot wrapped in dressing. BACK: Nontender without obvious deformity. No CVA tenderness. Procedures 08/15/2017 Left foot wound debridement. A/P Problem List: (1) Foot ulceration ICD Code: L97.509 - Non-pressure chronic ulcer of other part of unspecified foot with unspecified severity Status: Acute (2) HTN (hypertension) ICD Code: I10 - Essential (primary) hypertension Status: Chronic (3) Hyperlipidemia ICD Code: E78.5 - Hyperlipidemia Status: Chronic (4) COPD (chronic obstructive pulmonary disease) ICD Code: J44.9 - Chronic obstructive pulmonary disease Status: Chronic Assessment and Plan Mr. Garcia is a 72-year-old male with a history of hypertension, COPD who was admitted to the hospital on 08/14/2017 due to altered mental status and left foot ulcer. Podiatry performed left foot wound debridement on 08/15/2017. Patient has a history of MRSA wound. Infectious diseases recommended vancomycin until 08/27/2017. - Left foot ulcer - Status post surgical debridement by podiatry. - Continue vancomycin until 08/27/2017 per infectious disease. - Vascular surgery evaluated and determined that his perfusion is adequate to heal. In future patient may need below-knee amputation. - Per podiatry wound VAC to begin on 08/17/2017. - Hypertension - Hyperlipidemia - Currently on lisinopril 40 mg daily at bedtime, hydralazine 50 mg every 6 hours, diltiazem 240 mg by mouth twice a day - No clear indication for using diltiazem for blood pressure. Patient does not appear to have any history of dysrhythmia including atrial fibrillation. - His blood pressure is still somewhat elevated in the 170s systolic. We'll start amlodipine 5 mg daily and hold Diltiazem. - Continue atorvastatin 40 mg daily at bedtime. - COPD - Continue albuterol inhaler, Symbicort Full code. We will start Lovenox 40 mg daily. Problem Qualifiers (1) Foot ulceration: Deanne Cheng DO Aug 17, 2017 9:46 am
--- NOTE | 2017-08-17 11:06 | PD.VS.PN ---
Subjective Subjective/Hospital Course Pt s/p left foot wound debridement with podiatry on 08/15/17 Left foot post op dressing intact c/d Pain controlled Objective Vitals/I&O Date Time Temp Pulse Resp B/P (MAP) Pulse Ox O2 Delivery O2 Flow Rate FiO2 08/17/17 09:34 98 08/17/17 08:55 97.7 53 16 119/57 (77) 96 08/17/17 05:00 98.0 52 18 139/63 (88) 96 08/17/17 00:00 98.6 58 18 142/65 (90) 95 08/16/17 20:00 98.5 68 18 196/84 (121) 95 08/16/17 16:38 98.7 68 18 174/74 (107) 96 08/16/17 12:18 98.4 61 18 170/72 (104) 97 08/17/17 08/17/17 08/17/17 07:00 15:00 23:00 Output Total 1000 ml Balance -1000 ml Physical Exam GENERAL: A&OX3,NAD,GCS15 SKIN: Warm and dry LE w/ motor intact Left foot post op dressing intact c/d L foot with palpable DP Laboratory Date/Time Source Procedure Growth Status 08/15/17 09:58 Abscess Foot Fungal Smear - Final NO FUNGAL ELEMENTS SEEN. Resulted 08/15/17 09:58 Abscess Foot Fungal Culture Pending Resulted Assessment and Plan Plan Pt is S/p endovascular recanalization 07/21/17 Pt with adequate LLE perfusion Pt understands ultimately may require BKA but wants to continue aggressive care for limb salvage Plan Continue wound care as per podiatry Pt with adequate LLE perfusion Will continue to follow Beatris MENDEZ [facility] [phone] Beatris Duque Aug 17, 2017 11:06
[2017-08-17 13:18] VITALS: BP 175/78; PULSE 60; RESP 18; TEMP 98.2; O2SAT 97
[2017-08-17] MEDS: VANCOMYCIN INJ 1,250 MG in SODIUM CHLOR 0.9% 250 ML INJ 250 ML IV SCH (14:54)
[2017-08-17] MEDS ORDERED: ENOXAPARIN SODIUM 40 MG/0.4 ML SYRINGE SQ SCH (15:00)
[2017-08-17] MEDS ORDERED: AMLO5 PO (16:20)
--- NOTE | 2017-08-17 16:25 | HHI.DS ---
Discharge Summary Admission Date Aug 14, 2017 at 11:42 Discharge Date: Aug 17, 2017 Admitting Diagnosis left foot infection (1) Foot ulceration ICD Code: L97.509 - Non-pressure chronic ulcer of other part of unspecified foot with unspecified severity Status: Acute (2) HTN (hypertension) ICD Code: I10 - Essential (primary) hypertension Status: Chronic (3) Hyperlipidemia ICD Code: E78.5 - Hyperlipidemia Status: Chronic (4) COPD (chronic obstructive pulmonary disease) ICD Code: J44.9 - Chronic obstructive pulmonary disease Status: Chronic Procedures 08/15/2017 Left foot wound debridement. Brief History - From Admission patient is a 72 y/o male -known to me, with history of hypertension, COPD who was recently admitted to the hospital because of altered mental status and diabetic foot ulcer. during the recent admission he underwent Aortogram with left lower extremity angiograms, Left SFA and popliteal artery angioplasty and Right common femoral AngioSeal along with amputation left hallux with metatarsal and medial cuneiform left foot. he was started on IV antibiotic and discharge to acute rehab for further rehabilitation. he became very lethargic and found to have an elevated blood pressure for which he was transferred back to medical floor. he had neurological work-up including CT head and carotid dopper which were negative and later he was then transferred back to [place] [place] [facility] for further rehabilitation. he was seen by [facility] who recommended debridement of the left foot for which he was transferred back to medicine. CBC/BMP: 08/16/17 0546 08/16/17 0546 Significant Findings Laboratory Tests Test 08/15/17 06:05 08/15/17 15:45 08/16/17 05:46 Estimat Glomerular Filtration Rate 76 ML/MIN (>89) 61 ML/MIN (>89) Vancomycin Level Trough 17.4 MCG/ML (5.0-10.0) Red Blood Count 2.76 MIL/MM3 (4.50-5.90) Hemoglobin 7.4 GM/DL (13.0-17.0) Hematocrit 22.9 % (39.0-51.0) Red Cell Distribution Width 18.4 % (11.6-17.2) Monocytes (%) (Auto) 11.3 % (0.0-8.0) Monocytes # (Auto) 1.1 TH/MM3 (0-0.9) Blood Urea Nitrogen 22 MG/DL (7-18) Random Glucose 110 MG/DL (74-106) PE at Discharge GENERAL: Alert, NAD. SKIN: Warm and dry. HEAD: Normocephalic. EYES: No scleral icterus. No injection or drainage. NECK: Supple, trachea midline. No JVD or lymphadenopathy. CARDIOVASCULAR: Regular rate and rhythm without murmurs, gallops, or rubs. RESPIRATORY: Breath sounds equal bilaterally. No accessory muscle use. GASTROINTESTINAL: Abdomen soft, non-tender, nondistended. MUSCULOSKELETAL: No cyanosis, or edema. Left foot wrapped in dressing. BACK: Nontender without obvious deformity. No CVA tenderness. Pt update on day of discharge Patient is doing well. He was started on Wound vac today to be changed MWF. I discussed with Dr. Marsh (Podiatry) who is okay with discharge and she will follow patient while he receives rehab at [facility]. Hospital Course Mr. Garcia is a 72-year-old male with a history of hypertension, COPD who was admitted to the hospital on 08/14/2017 due to altered mental status and left foot ulcer. Podiatry performed left foot wound debridement on 08/15/2017. Patient has a history of MRSA wound. Infectious diseases recommended vancomycin until 08/27/2017. - Left foot ulcer - Status post surgical debridement by podiatry. - Continue vancomycin until 08/27/2017 per infectious disease. - Vascular surgery evaluated and determined that his perfusion is adequate to heal. In future patient may need below-knee amputation. - Per podiatry wound VAC started on 08/17/2017. Discussed with podiatry, marjorie with discharge plan. - Consult podiatry when patient is admitted to [facility]. - Hypertension - Hyperlipidemia - Currently on lisinopril 40 mg daily at bedtime, hydralazine 50 mg every 6 hours. Was on diltiazem 240 mg by mouth twice a day as well. - No clear indication for using diltiazem for blood pressure. Patient does not appear to have any history of dysrhythmia including atrial fibrillation. - Continue amlodipine 5 mg daily and hold Diltiazem. - Continue atorvastatin 40 mg daily at bedtime. - COPD - Continue albuterol inhaler, Symbicort Pt Condition on Discharge: Good Discharge Disposition: Rehab Inpatient Discharge Time: > 30 minutes Discharge Instructions DIET: Follow Instructions for: As Tolerated, No Restrictions Activities you can perform: Weight Bearing as Juanito New Medications: Amlodipine (Norvasc) 5 Mg Tab 5 MG PO DAILY for Blood Pressure Management, #30 TAB Continued Medications: Albuterol 18 GM Inh (Ventolin Hfa 18 GM Inh) 90 Mcg/Act Aer 2 PUFF INH Q4-6H PRN for SHORTNESS OF BREATH, #1 INHALER 0 Refills Ascorbic Acid (Vitamin C) 1,000 Mg Tablet.er 1000 MG PO DAILY Atorvastatin (Atorvastatin) 40 Mg Tab 40 MG PO HS for Cholesterol Management, #30 TAB 5 Refills Citalopram (Citalopram) 40 Mg Tab 60 MG PO DAILY for Control Depression, #45 TAB 6 Refills Please take 1.5 pills daily Clonidine (Catapres) 0.1 Mg Tab 0.1 MG PO Q8HR for hypertension for 30 Days, TAB 0 Refills Collagenase (Santyl) 250 Unit/Gram Oin 1 APPLIC TOPICAL DAILY for 30 Days, TUBE Cyclobenzaprine (Flexeril) 10 Mg Tab 5 MG PO Q8HR for Muscle Spasm MDD 15 , #30 TAB Donepezil (Donepezil) 10 Mg Tab 10 MG PO HS for Dementia, #30 TAB 5 Refills Ferrous Sulfate (Iron) 325 Mg Cap 325 MG PO BIDPC for Nutritional Supplement, #60 TAB 2 Refills Fluticasone-Salmeterol Inh (Advair Diskus Inh) 500-50 Mcg/Blist Aer 1 PUFF INH BID, #1 INHALER 0 Refills Rinse mouth after use. Gabapentin (Gabapentin) 100 Mg Cap 100 MG PO TID, #90 CAP 0 Refills Hydralazine HCl (Hydralazine HCl) 50 Mg Tablet 50 MG PO Q6HR for hypertension for 30 Days, TAB 0 Refills Ipratropium-Albuterol Inh (Combivent Respimat Inh) 20-100 Senior Care/Act Aero 1 PUFF INH QID for Asthma Management, #1 INHALER 0 Refills Lactobacillus Acidophilus (Lactobacillus Acidophilus) 1 Tab Tab 1 TAB PO TIDAC for Nutritional Supplement, #30 TAB 0 Refills Latanoprost Opth Drops (Xalatan Opth Drops) 0.005% Drops 1 DROP EACH EYE HS for 30 Days, ML Lisinopril (Lisinopril) 40 Mg Tab 40 MG PO HS for Blood Pressure Management, #30 TAB 1 Refill Multiple Vitamins W/ Minerals (Multi Vitamin and Mineral) 1 Tab Tab 1 TAB PO DAILY Oxycodone-Acetaminophen (Oxycodone-Acetaminophen) 5-325 mg Tab 1 TAB PO Q6H PRN for PAIN, #60 TAB 0 Refills Tiotropium Inh (Spiriva Handihaler) 18 Mcg Cap 18 MCG INH DAILY for copd, #1 CAP 0 Refills 1 capsule = 18 mcg Travoprost Opth Drops (Travatan Z Opth Drops) 0.004 % Soln 1 DROP EACH EYE HS for Glaucoma, #1 BOTTLE 5 Refills Vancomycin Inj (Vancomycin Inj) 1 Gram Inj 1250 MG IV Q18Hr for Infection for 14 Days, BAG 0 Refills vancomycin iv 1.25 GM Q 18 THROUGH 08/27 PER ID. Discontinued Medications: Aspirin (Aspirin 81 Low Dose) 81 Mg Chew 81 MG CHEW DAILY, #30 TAB 1 Refill Diltiazem HCl Coated Beads (Diltiazem HCl ER) 240 Mg Cap 240 MG PO BID Heparin Sodium (Porcine) (Heparin Sodium) 10,000 Unit/Ml Inj 5000 UNITS SQ Q8HR for dvt prophylaxis for 10 Days, INJECTION 0 Refills Deanne Cheng DO Aug 17, 2017 16:25
[2017-08-17 16:42] VITALS: BP 177/78; PULSE 65; RESP 18; TEMP 97.8; O2SAT 95
[2017-08-18] MEDS ORDERED: PHARMACY ORDERED LAB ONE (15:45)
[2017-09-02] MEDS ORDERED: DILA2TAB2 PO (09:01)
[2017-09-02] MEDS ORDERED: FENT25T T-DERMAL (09:01)
[2017-09-02] MEDS ORDERED: OXYC1TAB35 PO (09:01)
[2017-09-02] MEDS ORDERED: FERR325T20 PO (12:47)
[2017-09-02] MEDS ORDERED: CLON.2 PO (12:47)
[2017-09-02] MEDS ORDERED: GABA100C4 PO (12:47)
[2017-09-02] MEDS ORDERED: VITA500T2 PO (12:47)
[2017-09-02] MEDS ORDERED: LATA.005%O EACH EYE (12:47)
[2017-09-02] MEDS ORDERED: PANT40TA3 PO (12:47)
[2017-09-02] MEDS ORDERED: HYDR-3801 PO (12:47)
[2017-09-02] MEDS ORDERED: AMLO5 PO (12:47)
[2017-09-02] MEDS ORDERED: COLL30T TOPICAL (12:47)
[2017-09-02] MEDS ORDERED: VENTAER INH (12:47)
[2017-09-02] MEDS ORDERED: CYCL1TAB29 PO (12:47)
[2017-09-02] MEDS ORDERED: ARIC5TAB2 PO (12:47)
[2017-09-02] MEDS ORDERED: THERM PO (12:47)
[2017-09-02] MEDS ORDERED: LISI-515 PO (12:47)
[2017-09-02] MEDS ORDERED: LACT PO (12:47)
[2017-09-02] MEDS ORDERED: ATOR40TA16 PO (12:47)
[2017-09-02] MEDS ORDERED: SYMB160A INH (12:47)
[2017-09-02] MEDS ORDERED: guaiFENesin ER PO (12:47)
[2017-09-02] MEDS ORDERED: CELE20TA PO (12:47)
[2017-09-02] MEDS ORDERED: ASPI-99 PO (12:47)
[2017-09-02] MEDS ORDERED: ACET1TAB86 PO (12:47)
[2017-09-02] MEDS ORDERED: SPIRCAP INH (12:47)
== END 2017-08-17 16:46 | DRG 624 ==
LOC: N05A 11:42
PROVIDERS: ADMIT Hospitalist; ATTEND Hospitalist
PROC: 0JBR0ZZ Excision of Left Foot Subcutaneous Tissue and Fascia, Open Approach (ICD-10-PCS; principal; 2017-08-15 09:31)
DX: E11.621 Type 2 diabetes mellitus with foot ulcer (principal); L97.529 Non-pressure chronic ulcer of other part of left foot with unspecified severity; F03.90 Unspecified dementia, unspecified severity, without behavioral disturbance, psychotic disturbance, mood disturbance, and anxiety; J44.9 Chronic obstructive pulmonary disease, unspecified; I10 Essential (primary) hypertension; E78.5 Hyperlipidemia, unspecified; B95.62 Methicillin resistant Staphylococcus aureus infection as the cause of diseases classified elsewhere; D63.8 Anemia in other chronic diseases classified elsewhere; Z87.891 Personal history of nicotine dependence; Z88.1 Allergy status to other antibiotic agents; Z88.5 Allergy status to narcotic agent; Z88.0 Allergy status to penicillin; Z88.2 Allergy status to sulfonamides
CPT/HCPCS: 80048; 80202; 82565; 82948; 85025; 87015; 87070; 87077; 87102; 87116; 87186; 87205; 87206; J1170; J1650; J2405; J3010; J3370; J7030; J7050

== ENCOUNTER → 2017-08-28 | Outpatient (CLI) | payer MEDICARE, OTHER ==
[~2017-08-28] VITALS: Ht 180.3 cm; Wt 82.6 kg
[~2017-08-28] MED LIST changes: +ACET1TAB86 PO; +AMLO5 PO; +AMLO5TAB2 PO; +ARIC5TAB2 PO; +ASPI-99 PO; -ASPI81CH3 CHEW; +CELE20TA PO; +CHLORHEXIDINE GLUCONATE 2 % 1 PACK (2 CLOTHS) TOPICAL PRN; +CLON.2 PO; +DILA2TAB2 PO; -DILT240C PO; +DO NOT ADM ANY ANTICOAGULANT DRUGS PRN; +FENT25T T-DERMAL; +FERR325T20 PO; -HEPA10003 SQ; +HYDR-3801 PO; +INSULIN HUMAN REGULAR 1,000 UNITS/10 ML VIAL SQ PRN; +LACT PO; +LACTATED RINGER'S 1000 ML IV PRN; +LIDOCAINE HCL 1% PF 5 ML AMPULE OTHER ONE; +LISI-515 PO; +METOPROLOL TARTRATE 25 MG TAB PO PRN; +OXYC1TAB35 PO; +PANT40TA3 PO; +PICC Daily Heparin 100 unit/mL Lock Flush IV FLUSH SCH; +PICC HIT (ADULT) PRN NS Lock Flush IV FLUSH; +PICC HIT (ADULT) Q8H NS Lock Flush IV FLUSH PRN; +PICC PRN After Blood Draw NS Lock Flush IV FLUSH; +PICC PRN Heparin 100 units/ml Lock Flush IV FLUSH; +POVIDONE IODINE 5% (ANTISEPSIS KIT) 4 APPLICATIONS EACH NARE PRN; +PROPOFOL 200 MG/20 ML AMP IV ONE; +SODIUM CHLORID 0.9% 500 ML IV PRN; +SODIUM CHLORIDE 0.9% FLUSH 10 ML FLUSH IV FLUSH PRN; +SODIUM CHLORIDE 0.9% FLUSH 10 ML FLUSH IV FLUSH SCH; +SYMB160A INH; +THERM PO; +VITA500T2 PO; +guaiFENesin ER PO
--- NOTE | 2017-08-28 11:52 | GIPROC ---
[facility] [address] [facility]. [facility], [address] EGD PROCEDURE REPORT EXAM DATE: 08/28/2017 PATIENT NAME: Jose Garcia MR #: [id number] BIRTHDATE: 1945 ATTENDING: Robinson Morel MD ORDER #: [id number] PATIENT SERVICES REPRESENTATIVE: Bryan More and Aviva Cosme STATUS: outpatient INDICATIONS: The patient is a 72 yr old male here for an EGD due to iron deficiency anemia PROCEDURE PERFORMED: EGD w/ biopsy MEDICATIONS: None and Per Anesthesia. TOPICAL ANESTHETIC: CONSENT: The patient understands the risks and benefits of the procedure and understands that these risks include, but are not limited to: sedation, allergic reaction, infection, perforation and/or bleeding. Alternative means of evaluation and treatment include, among others: physical exam, x-rays, and/or surgical intervention. The patient elects to proceed with this endoscopic procedure. medical equipment was checked for proper function. Hand hygiene and appropriate measures for infection prevention was taken. After the risks, benefits and alternatives of the procedure were thoroughly explained, Informed consent was verified, confirmed and timeout was successfully executed by the treatment team. The patient was anesthetized with topical anesthesia and the Pentax [id number] endoscope was introduced through the mouth and advanced to the second portion of the duodenum. Retroflexed views revealed no abnormalities The gastroscope was then slowly withdrawn and removed. ESOPHAGUS: There was LA Class A esophagitis noted. STOMACH: There was moderate and erosive gastritis in the gastric antrum. A biopsy was performed using cold forceps. Sample sent for histology. DUODENUM: The duodenal mucosa appeared normal in the bulb and second portion of the duodenum. ADVERSE EVENTS: There were no complications. IMPRESSIONS: 1. There was LA Class A esophagitis noted 2. There was gastritis in the gastric antrum; biopsy was performed 3. Normal duodenal mucosa in the bulb and second portion of the duodenum 4. Retroflexed views revealed no abnormalities RECOMMENDATIONS: 1. Await biopsy results. Biopsy results will not be ready for 7-10 days. If you don't hear from us in two weeks, call our office for biopsy results. 2. Anti-reflux regimen 3. Continue PPI 4. Avoid NSAIDS 5. Colonoscopy PATIENT CONDITION: stable DISPOSITION: Inpatient REPEAT EXAM: Return 3 years EGD pending biopsy results Robinson Morel MD eSigned: Robinson Morel MD 08/28/2017 11:52 AM cc: PATIENT NAME: Jose Garcia MR#: [id number]
[2017-08-31 13:38] VITALS: BP 144/65; PULSE 80; RESP 16; TEMP 98; O2SAT 93
== END ==
LOC: HEND 08:59
PROVIDERS: ATTEND Internal Medicine Gastroenterology
DX: D50.9 Iron deficiency anemia, unspecified (principal); K20.9 Esophagitis, unspecified; K29.70 Gastritis, unspecified, without bleeding
CPT/HCPCS: 00740; 43239; 88305; J7120

== ENCOUNTER → 2017-09-01 | Outpatient (CLI) | payer MEDICARE, OTHER ==
[~2017-09-01] MED LIST changes: -AMLO5TAB2 PO; -CHLORHEXIDINE GLUCONATE 2 % 1 PACK (2 CLOTHS) TOPICAL PRN; -DO NOT ADM ANY ANTICOAGULANT DRUGS PRN; -INSULIN HUMAN REGULAR 1,000 UNITS/10 ML VIAL SQ PRN; -LACTATED RINGER'S 1000 ML IV PRN; -METOPROLOL TARTRATE 25 MG TAB PO PRN; -PICC Daily Heparin 100 unit/mL Lock Flush IV FLUSH SCH; -PICC HIT (ADULT) PRN NS Lock Flush IV FLUSH; -PICC HIT (ADULT) Q8H NS Lock Flush IV FLUSH PRN; -PICC PRN After Blood Draw NS Lock Flush IV FLUSH; -PICC PRN Heparin 100 units/ml Lock Flush IV FLUSH; -POVIDONE IODINE 5% (ANTISEPSIS KIT) 4 APPLICATIONS EACH NARE PRN; -SODIUM CHLORID 0.9% 500 ML IV PRN; -SODIUM CHLORIDE 0.9% FLUSH 10 ML FLUSH IV FLUSH PRN; -SODIUM CHLORIDE 0.9% FLUSH 10 ML FLUSH IV FLUSH SCH
--- NOTE | 2017-09-01 16:54 | PD.PROCEDR ---
GI Procedure REFERRING PHYSICIAN Dr. Montelongo PROCEDURE PERFORMED Colonoscopy with snare polypectomy and biopsy INDICATION FOR PROCEDURE Anemia, guaiac-positive stools PROCEDURE: The procedure, risks and benefits were discussed with Mr. Garcia and informed consent was obtained. Anesthesia sedated him with Diprivan. He was placed in the left lateral decubitus position. Colonoscopy: The Pentax videoscope was introduced through the rectum and advanced to the ascending colon. Retroflexion was performed in the rectum. Colonic prep was poor FINDINGS: As the scope was slowly withdrawn colonic mucosa was carefully inspected the patient was noted to have a medium size sessile polyp in the proximal transverse colon this was excised using cold snare technique but this was lost amidst the stool patient was also noted to have segments of erythema with friability and ulcerations in the descending and sigmoid region with an area of short mild benign stricture in the sigmoid resulting from the inflammation but traversable biopsies were taken from the inflamed areas and the stricture and the patient was also noted to have mild sigmoid diverticulosis colonic examination was otherwise unremarkable ESTIMATED BLOOD LOSS: None SPECIMENS REMOVED: Cold biopsies COMPLICATIONS: None IMPRESSION: Colon polyp Colitis probably ischemic with noted inflammation and ulceration in a segmental way in the descending and sigmoid region Mild diverticulosis Incomplete colonoscopy due to poor prep PLAN: Await biopsies Advanced diet as tolerated Monitor labs and transfuse as needed Repeat colonoscopy in 2-3 months Robby Alberto MD Sep 01, 2017 16:54
[2017-09-01 16:55] VITALS: BP 134/66; PULSE 70; RESP 18; TEMP 98.1; O2SAT 93
== END ==
LOC: HEND 11:25
PROVIDERS: ATTEND Internal Medicine Gastroenterology
DX: D64.9 Anemia, unspecified (principal); K92.1 Melena; D12.3 Benign neoplasm of transverse colon; K57.90 Diverticulosis of intestine, part unspecified, without perforation or abscess without bleeding; K63.3 Ulcer of intestine; K52.9 Noninfective gastroenteritis and colitis, unspecified
CPT/HCPCS: 88305

== ENCOUNTER 2017-09-06 19:33 | Inpatient (IN) | payer MEDICARE, OTHER ==
[~2017-09-06] VITALS: Ht 180.3 cm; Wt 78.1 kg
[~2017-09-06 19:33] MED LIST changes: -LIDOCAINE HCL 1% PF 5 ML AMPULE OTHER ONE; -PROPOFOL 200 MG/20 ML AMP IV ONE; -VANC1000P IV
[2017-09-06 19:43] VITALS: BP 154/69; PULSE 65; RESP 18; TEMP 98.5; O2SAT 94
[2017-09-06] MEDS ORDERED: AMLO5TAB2 PO (20:04)
[2017-09-06 20:25] VITALS: RESP 17; O2SAT 95
[2017-09-06 20:53] VITALS: BP 175/76; PULSE 68; RESP 18; O2SAT 95
[2017-09-06 21:02] LABS: AUTOMATED NEUTROPHIL # 15.6 TH/MM3 (1.8-7.7); BASOPHIL # 0.1 TH/MM3 (0-0.2); BASOPHIL % 0.3 % (0.0-2.0); EOSINOPHIL # 0.5 TH/MM3 (0-0.4); EOSINOPHIL % 2.4 % (0.0-4.0); HEMATOCRIT 30.9 % (39.0-51.0); HEMO FLAGS DIFF FINAL; LYMPH % 9.1 % (9.0-44.0); LYMPHOCYTE # 1.8 TH/MM3 (1.0-4.8); MEAN CELL VOLUME 83.1 FL (80.0-100.0); MEAN CORPUSCULAR HEMOGLOBIN 27.1 PG (27.0-34.0); MEAN CORPUSCULAR HGB CONC 32.7 % (32.0-36.0); MONO % 9.6 % (0.0-8.0); NEUT % 78.6 % (16.0-70.0); PLATELET COUNT 447 TH/MM3 (150-450); RED BLOOD COUNT 3.72 MIL/MM3 (4.50-5.90); RED CELL DISTRIBUTION WIDTH 17.4 % (11.6-17.2); WHITE BLOOD COUNT 19.8 TH/MM3 (4.0-11.0)
[2017-09-06 21:07] LABS: BACTERIA, URINE MANY /hpf; BLOOD, URINE NEG (NEG); COMMENT (UR) CULTURE INDICATED; CULTURE IF INDICATED CULTURE INDICATED; GLUCOSE,URINE NEG (NEG); KETONE, URINE NEG (NEG); NITRITE,URINE POS (NEG); PH, URINE 5.5 (5.0-8.5); URINE COLOR YELLOW (YELLW/STRAW)
[2017-09-06 21:13] LABS: ANION GAP 8 MEQ/L (5-15); AST (GOT) 21 U/L (15-37); BICARBONATE 26.6 MEQ/L (21.0-32.0); BLOOD UREA NITROGEN 23 MG/DL (7-18); CHLORIDE 102 MEQ/L (98-107); GLOMERULAR FILTRATION RATE 85 ML/MIN (>89); MAGNESIUM 1.7 MG/DL (1.5-2.5); POTASSIUM 3.9 MEQ/L (3.5-5.1); SODIUM (NA) 137 MEQ/L (136-145)
[2017-09-06 21:15] LABS: ALT (GPT) 24 U/L (12-78)
[2017-09-06 21:17] LABS: ALKALINE PHOSPHATASE 90 U/L (45-117); TOTAL BILIRUBIN ADULT 0.2 MG/DL (0.2-1.0)
--- NOTE | 2017-09-06 21:26 | PD ---
HPI Chief Complaint: General Weakness Time Seen by Provider: 20:00 Travel History International Travel<30 days: No Contact w/Intl Traveler<30days: No Traveled to known affect area: No History of Present Illness HPI The patient is a 72 year old male who presents to the [facility] emergency department with a history of recently being discharged from [facility] after a prolonged admission to the hospital related to several medical issues including recurrent bouts of sepsis treated with multiple rounds of antibiotic, and a left great toe/partial foot amputation. The patient was discharged this past week to home. His reports that today she changed out his fentanyl patch which is a 25 g patch and also at 9:30 AM gave him 5 mg oxycodone/acetaminophen. She reports that later in the day was difficult to awaken him. She reports that he continued to be more sedated throughout the day and she became concerned, therefore ambulance services were called and the patient was transported to this facility. She denies him having any fevers. She reports that he did have a decreased appetite today, however he has not had any vomiting or diarrhea. He denies having any increased shortness of breath. The patient does have a history of COPD and also has a history of left sided pleural effusion drained 2 days prior to discharge. The patient's reports that he has been doing well from a wound standpoint. He has a wound VAC in place and his foot seems to be healing well. She reports that after the pleural effusion was drained he did have some chest pain that is pleuritic. She was told by the physician that this was related to his lung reinflating. She reports that this has been improving with time. She denies any change in odor of urine. She reports that he is chronically incontinent and uses a diaper. FOR[facility]LY [facility] Past Medical History Narrative Medical the patient's past medical history is significant for coronary artery disease, diverticulosis, history of C. 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 Hx Anticoagulant Therapy: Yes (81 MG ASA) Arthritis: Yes Asthma: No Autoimmune Disease: No Blood Disorders: Yes (ANEMIA) Anxiety: No Depression: Yes Heart Rhythm Problems: No Cancer: No Cardiovascular Problems: Yes (Left carotid endarterectomy 10/14/16) High Cholesterol: No Chemotherapy: No Chest Pain: No Congestive Heart Failure: No COPD: Yes Cerebrovascular Accident: Yes (Yes, 05/09/16, 10/14/16) Dementia: Yes (MILD ) Diabetes: No Diminished Hearing: Yes (BILATERAL HEARING AIDS) Endocrine: No Gastrointestinal Disorders: Yes GERD: No Genitourinary: Yes Headaches: No Hiatal Hernia: No Heparin Induced Thrombocytopen: No Hypertension: Yes Immune Disorder: No Implanted Vascular Access Dvce: Yes Kidney Stones: Yes (MANY YEARS AGO;PASSED ) Musculoskeletal: Yes Neurologic: Yes Psychiatric: Yes Reproductive: No Respiratory: Yes Immunizations Current: Yes Migraines: No Pancreatitis: Yes Radiation Therapy: No Renal Failure: No Seizures: No Sickle Cell Disease: No Thyroid Disease: No Ulcer: No Past Surgical History Narrative Surgical The patient's past surgical history is significant for a right knee open meniscectomy, incision and drainage of a left knee abscess, appendectomy, back surgery for ruptured disc, back surgery for arachnoiditis, left elbow surgery, abscess drainage of the roof of the mouth, right hand ORIF, kidney stone removal , pedal implants, back surgery for spinal stenosis, pacemaker implant for his bladder incontinence, cataract surgery, ERCP, carotid endarterectomy biliary tube, amputation of the left hallux and metatarsal and medial cuneiform left foot. Abdominal Surgery: Yes (Appendectomy 1950) AICD: No Appendectomy: Yes Arteriovenous Shunt: No Body Medical Devices: penile implant Cardiac Surgery: No Ear Surgery: No Endocrine Surgery: No Eye Surgery: Yes (Bilateral cateracts, 2 each) Genitourinary Surgery: Yes (Bladder implant, inneffective. Penile implant) Gynecologic Surgery: No Insulin Pump: No Joint Replacement: No Neurologic Surgery: Yes Oral Surgery: Yes (Abcess back of front tooth, removal. Caps/missing teeth) Pacemaker: No Thoracic Surgery: No Other Surgery: Yes Social History Alcohol Use: No Tobacco Use: No Substance Use: No Allergies-Medications (Allergen,Severity, Reaction): Coded Allergies: Sulfa (Sulfonamide Antibiotics) (Verified Allergy, Severe, Anaphylaxis, ) metronidazole (Verified Allergy, Severe, Fever, colitis, 09/06/17) While being treated for Cdiff. Doubt if true allergy. penicillin G (Verified Allergy, Severe, Anaphylaxis, 09/06/17) sulfamethoxazole (Verified Allergy, Severe, Anaphylaxis, 09/06/17) trimethoprim (Verified Allergy, Severe, Anaphylaxis, 09/06/17) erythromycin base (Verified Allergy, Intermediate, Rash, 09/06/17) MRI PRECAUTION (Verified Adverse Reaction, Severe, BLADDER STIMULATOR, ) BRAIN ONLY ON RECEIVE ONLY COIL, P.O. 01/11/17, DML meperidine (Verified Adverse Reaction, Unknown, Psychosis, 09/06/17) morphine (Verified Adverse Reaction, Unknown, Psychosis, 09/06/17) Uncoded Allergies: surgical tape (Allergy, Severe, 12/15/13) Reported Meds & Prescriptions Reported Meds & Active Scripts Active Thera M Plus (Multivitamins/Minerals Therapeutic) 1 Tab 1 Tab PO DAILY 30 Days Xalatan Opth Drops (Latanoprost) 0.005% Drops 1 Drop EACH EYE HS 30 Days [guaiFENesin ER] 600 MG Tabcr 600 Mg PO BID 30 Days Gabapentin 100 Mg Cap 100 Mg PO Q8H 30 Days Adult Aspirin EC Low Strength (Aspirin) 81 Mg Tabec 81 Mg PO DAILY 30 Days Lisinopril 20 Mg Tab 40 Mg PO HS 30 Days Catapres (Clonidine) 0.2 Mg Tab 0.2 Mg PO Q8HR 30 Days Atorvastatin (Atorvastatin Calcium) 40 Mg Tab 40 Mg PO HS 30 Days Flexeril (Cyclobenzaprine HCl) 10 Mg Tab 5 Mg PO Q8HR 30 Days Aricept (Donepezil HCl) 5 Mg Tablet 10 Mg PO HS 30 Days Ventolin Hfa 18 GM Inh (Albuterol Sulfate) 90 Mcg/Act Aer 2 Puff INH Q4-6H PRN 30 Days Duragesic Patch 72 HR (Fentanyl) 25 Mcg/Hr Patch 1 Patch T-DERMAL Q3D Remove old patch when new one placed. Santyl (Collagenase) 250 Unit/Gram Oin 1 Applic TOPICAL DAILY 30 Days Oxycodone-Acetaminophen 5-325 mg Tab 1 Tab PO Q6H PRN Iron (Ferrous Sulfate) 325 Mg Cap 325 Mg PO BIDPC Travatan Z Opth Drops (Travoprost) 0.004 % Soln 1 Drop EACH EYE HS Citalopram (Citalopram Hydrobromide) 40 Mg Tab 60 Mg PO DAILY Please take 1.5 pills daily Reported Amlodipine (Amlodipine Besylate) 5 Mg Tab 5 Mg PO BID Advair Diskus Inh (Fluticasone-Salmeterol Inh) 500-50 Mcg/Blist Aer 1 Puff INH BID Rinse mouth after use. Combivent Respimat Inh (Ipratropium-Albuterol Inh) 20-100 Correction/Act Aero 1 Puff INH QID Vitamin C (Ascorbic Acid) 1,000 Mg Tablet.er 1,000 Mg PO DAILY Lactobacillus Acidophilus 1 Tab Tab 1 Tab PO TIDAC Review of Systems Except as stated in HPI: all other systems reviewed are Neg General / Constitutional: No: Fever Eyes: No: Visual changes HENT: No: Headaches Cardiovascular: Positive: Chest Pain or Discomfort (chest pain related to recent pleural effusion drainage), Dyspnea on exertion (chronic dyspnea on exertion reportedly related to COPD) Respiratory: Positive: Cough Gastrointestinal: No: Abdominal Pain Genitourinary: No: Dysuria Musculoskeletal: No: Pain Skin: No Rash Neurologic: Positive: Weakness (generalized weak), Change in Mentation, No: Focal Abnormalities, Slurred Speech, Sensory Disturbance Psychiatric: No: Depression Endocrine: No: Polydipsia Hematologic/Lymphatic: No: Easy Bruising Physical Exam Narrative General: The patient is a well-developed well-nourished male in no acute distress, drowsy on examination.. Head and Neck exam: Head is normocephalic atraumatic. Eyes: EOMI, pupils are equal round and reactive to light. Nose: Midline septum with pink mucous membranes Mouth: Dentition unremarkable. Moist mucus membranes. Posterior oropharynx is not erythematous. No tonsillar hypertrophy. Uvula midline. Airway patent. Neck: No palpable lymphadenopathy. No nuchal rigidity. No thyromegaly. Cardiovascular: Regular rate and rhythm without murmurs, gallops, or rubs. Lungs: The patient has soft expiratory wheezes audible. The patient has decreased breath sounds in the left lower lung base, no rhonchi, no crackles. Abdomen: Soft, without tenderness to palpation in all 4 quadrants of the abdomen. No guarding, rebound, or rigidity. Normal bowel sounds are audible. No tenderness on palpation of McBurney's point. Extremities: No clubbing, cyanosis, or edema. 2+ pulses in all 4 extremities. No calf tenderness on palpation. Back: No costovertebral angle tenderness to palpation. Neurologic Exam: Grossly nonfocal. The patient is drowsy on examination although easily arousable and able to provide some history. Skin Exam: No rash noted. Intact skin that is warm and dry. Data Data Last Documented VS Vital Signs Date Time Temp Pulse Resp B/P (MAP) Pulse Ox O2 Delivery O2 Flow Rate FiO2 09/06/17 20:53 68 18 175/76 (109) 95 Room Air 09/06/17 19:43 98.5 Orders Orders Electrocardiogram (09/06/17 20:19) Complete Blood Count With Diff (09/06/17 20:19) Comprehensive Metabolic Panel (09/06/17 20:19) Troponin I (09/06/17 20:19) C-Reactive Protein (Crp) (09/06/17 20:19) Lipase (09/06/17 20:19) Urinalysis - C+S If Indicated (09/06/17 20:19) Magnesium (Mg) (09/06/17 20:19) Chest, Single Ap (09/06/17 20:19) Iv Access Insert/Monitor (09/06/17 20:19) Ecg Monitoring (09/06/17 20:19) Oximetry (09/06/17 20:19) Urine Culture (09/06/17 20:35) Blood Culture (09/06/17 21:52) Lactic Acid Sepsis Protocol (09/06/17 21:52) Levofloxacin 750 Mg Premix Inj (Levaquin (09/06/17 22:00) Admit Order (Ed Use Only) (09/06/17 22:26) Labs Laboratory Tests Test 09/06/17 20:30 09/06/17 20:35 09/06/17 22:00 White Blood Count 19.8 TH/MM3 Red Blood Count 3.72 MIL/MM3 Hemoglobin 10.1 GM/DL Hematocrit 30.9 % Mean Corpuscular Volume 83.1 FL Mean Corpuscular Hemoglobin 27.1 PG Mean Corpuscular Hemoglobin Concent 32.7 % Red Cell Distribution Width 17.4 % Platelet Count 447 TH/MM3 Mean Platelet Volume 7.6 FL Neutrophils (%) (Auto) 78.6 % Lymphocytes (%) (Auto) 9.1 % Monocytes (%) (Auto) 9.6 % Eosinophils (%) (Auto) 2.4 % Basophils (%) (Auto) 0.3 % Neutrophils # (Auto) 15.6 TH/MM3 Lymphocytes # (Auto) 1.8 TH/MM3 Monocytes # (Auto) 1.9 TH/MM3 Eosinophils # (Auto) 0.5 TH/MM3 Basophils # (Auto) 0.1 TH/MM3 CBC Comment DIFF FINAL Differential Comment Erythrocyte Sedimentation Rate 95 mm/hr Blood Urea Nitrogen 23 MG/DL Creatinine 0.88 MG/DL Random Glucose 140 MG/DL Total Protein 7.1 GM/DL Albumin 2.5 GM/DL Calcium Level 9.3 MG/DL Magnesium Level 1.7 MG/DL Alkaline Phosphatase 90 U/L Aspartate Amino Transf (AST/SGOT) 21 U/L Alanine Aminotransferase (ALT/SGPT) 24 U/L Total Bilirubin 0.2 MG/DL Sodium Level 137 MEQ/L Potassium Level 3.9 MEQ/L Chloride Level 102 MEQ/L Carbon Dioxide Level 26.6 MEQ/L Anion Gap 8 MEQ/L Estimat Glomerular Filtration Rate 85 ML/MIN Troponin I LESS THAN 0.02 NG/ML C-Reactive Protein 18.00 MG/DL Lipase 63 U/L Urine Color YELLOW Urine Turbidity HAZY Urine pH 5.5 Urine Specific [place] 1.016 Urine Protein 100 mg/dL Urine Glucose (UA) NEG mg/dL Urine Ketones NEG mg/dL Urine Occult Blood NEG Urine Nitrite POS Urine Bilirubin NEG Urine Urobilinogen LESS THAN 2.0 MG/DL Urine Leukocyte Esterase MOD Urine RBC 1 /hpf Urine WBC 11 /hpf Urine Amorphous Sediment RARE Urine Bacteria MANY /hpf Microscopic Urinalysis Comment CULTURE INDICATED Lactic Acid Level 0.5 mmol/L MDM Medical Decision Making Medical Screen Exam Complete: Yes Emergency Medical Condition: Yes Medical Record Reviewed: Yes Interpretation(s) Last Impressions Chest X-Ray 09/06/172018 Signed Impressions: Service Date/Time: Wednesday, September 06, 2017 21:16 - CONCLUSION: 1. Positive for left effusion and basilar dependent airspace disease increased from August 31. Right lung relatively clear except for minimal scarring or atelectasis. Richard Tripp MD Differential Diagnosis Oversedation with sedative medications, versus recurrent sepsis, versus metabolic encephalopathy Narrative Course During the course of the patients emergency department visit, the patients history, examination, and differential diagnosis were reviewed with the patient. The patient was placed on a groundwater monitoring technician with oximetry and frequent blood pressure monitoring. The patient had IV access obtained and blood work sent for analysis. The patient had an ECG done on arrival. The patient's ECG reveals a sinus rhythm with first-degree AV block with occasional supraventricular premature complexes, right bundle branch block with a QRS duration of 169 ms, QTC 485 ms, no acute ST segment elevation. According to the record prior to discharge the patient had his left pleural effusion tapped. The culture was negative. Chest x-ray done on arrival shows that the effusion has recurred and is large. The patients laboratory studies were reviewed and remarkable for a white count of 19.8 which is increased compared to previously, hemoglobin 10.1, platelets 447 with 78.6 neutrophils, 9.6 monocytes, sedimentation rate is 95 , CMP is remarkable for BUN of 23, glucose 140, troponin I less than 0.02, C-reactive protein 18, lipase 63, lactic acid 0.5, urinalysis shows positive nitrite, moderate leukocyte esterase, 11 wbc's, many bacteria. Given the patient's urinary tract infection and recurrent large effusion with leukocytosis, the patient was given Levaquin 750 mg IV. This was after blood cultures 2 were sent. The patients results were discussed with the patient, including the plan of care. I explained that further testing and/ or monitoring is indicated based on the patients history, examination, and/ or laboratory findings. Therefore, I recommended admission for additional evaluation. The patient expressed understanding and was agreeable with this plan. The patient was admitted to the hospital in guarded condition and [facility] Physician Communication Physician Communication The patient's case was discussed with Dr. De La Cruz who did agree to admit the patient for further evaluation and treatment at this time. Diagnosis Primary Impression: Pleural effusion, left Additional Impressions: Leukocytosis Qualified Codes: D72.829 - Elevated white blood cell count, unspecified Urinary tract infection Qualified Codes: N39.0 - Urinary tract infection, site not specified Admitting Information Admitting Physician Requests: Admit Nani Dixon MD Sep 06, 2017 21:26
--- NOTE | 2017-09-06 21:38 | RADRPT ---
EXAM DATE/TIME: 09/06/2017 21:16 [place] COMPARISON: CHEST SINGLE AP, August 31, 2017, 23:17. INDICATIONS : Shortness of breath. MEDICAL HISTORY : Pancreatitis. Arthritis. Hypertension. CVA SURGICAL HISTORY : Carotid endarterectomy. Appendectomy. 1.5L thoracentesis left side 08/31/2017 ENCOUNTER: Initial ACUITY: 1 day PAIN SCORE: 0/10 LOCATION: Bilateral chest FINDINGS: A single view of the chest demonstrates cardiomegaly. Left sided effusion and basilar dependent airsp eliezer disease. Mild right basilar opacity. No pneumothorax. CONCLUSION: 1. Positive for left effusion and basilar dependent airspace disease increased from August 31. Right lung relatively clear except for minimal scarring or atelectasis. Richard Tripp MD on September 06, 2017 at 21:35 Board Certified Radiologist. This report was verified electronically.
[2017-09-06] MEDS ORDERED: LEVOFLOXACIN 750 MG PREMIX INJ 150 ML IV ONE (22:00)
--- NOTE | 2017-09-06 22:44 | HHI.HP ---
HPI Service Family Medicine Primary Care Physician Unknown Admission Diagnosis Large left pleural effusion, uti, leukocytosis, ams Diagnoses: Chief Complaint: drowsiness International Travel<30 Days: No Contact w/Intl Traveler<30days: No Known Affected Area: No History of Present Illness Pt is a 72 y/o male with extensive medical history, including COPD, dementia, history of TIA, C diff, osteomyelitis. Of note he was [facility] after a long admission to the hospital with multiple infections and sepsis, also had left hallux amputation. The accompanies the pt, who provided most of the history. She states that she changed his Fentanyl patch earlier this morning and gave him his 5mg percocet. She reports that he took a nap, then woke up and was very drowsy. She states that he was confused and worsened throughout the day. She became worried and called for EVAC to bring to the hospital. Denies any other symptoms. No fever/chills. He his having some residual pleuritic chest pain from a thoracentesis that was performed last week. Denies any shortness of breath. Has chronic cough, nothing new. No nausea/ vomiting, No diarrhea. He currently has a wound vac on his left foot. She states the foot seems to be healing well. Home health is assisting at home. He denies any dysuria, hematuria. Does have incontinence. States the urine was dark and had a strong odor. Patient states that he feels basically back to normal. He still feels a little drowsy, but no other complaints. Review of Systems Constitutional: DENIES: Fever, Chills Eyes: DENIES: Blurred vision, Vision loss Ears, nose, mouth, throat: DENIES: Hearing loss, Throat pain, Hoarseness, Ear Pain Respiratory: COMPLAINS OF: Cough, DENIES: Wheezing, Shortness of breath Cardiovascular: DENIES: Chest pain, Palpitations, Syncope Gastrointestinal: DENIES: Abdominal pain, Constipation, Diarrhea, Nausea, Vomiting Genitourinary: DENIES: Urinary frequency, Urinary incontinence, Urgency, Dysuria Musculoskeletal: COMPLAINS OF: Muscle aches, DENIES: Joint pain, Back pain Integumentary: DENIES: Rash Neurologic: COMPLAINS OF: Poor Balance, DENIES: Abnormal gait, Headache, Speech Problems Psychiatric: DENIES: Anxiety, Confusion, Depression Past Family Social History Past Medical History COPD Hx of CVA (2016) Arthritis Spinal stenosis HTN Glaucoma Neurogenic bladder Dementia Benign frontal lobe tumor Chronic hip pain Diverticulosis Past Surgical History Left metatarsal s/p debridement 07/03/17 Left hallux amputation 07/24/17 Appendectomy 3 back surgeries Cataract surgery Reported Medications Reported Meds & Active Scripts Active Thera M Plus (Multivitamins/Minerals Therapeutic) 1 Tab 1 Tab PO DAILY 30 Days Xalatan Opth Drops (Latanoprost) 0.005% Drops 1 Drop EACH EYE HS 30 Days [guaiFENesin ER] 600 MG Tabcr 600 Mg PO BID 30 Days Gabapentin 100 Mg Cap 100 Mg PO Q8H 30 Days Adult Aspirin EC Low Strength (Aspirin) 81 Mg Tabec 81 Mg PO DAILY 30 Days Lisinopril 40 Mg PO HS 30 Days Atorvastatin (Atorvastatin Calcium) 40 Mg Tab 40 Mg PO HS 30 Days Flexeril (Cyclobenzaprine HCl) 10 Mg Tab HS 30 Days Aricept (Donepezil HCl) 10 Mg PO HS 30 Days Ventolin Hfa 18 GM Inh (Albuterol Sulfate) 90 Mcg/Act Aer 2 Puff INH Q4-6H PRN 30 Days Duragesic Patch 72 HR (Fentanyl) 25 Mcg/Hr Patch 1 Patch T-DERMAL Q3D Remove old patch when new one placed. Santyl (Collagenase) 250 Unit/Gram Oin 1 Applic TOPICAL DAILY 30 Days Oxycodone-Acetaminophen 5-325 mg Tab 1 Tab PO Q6H PRN Iron (Ferrous Sulfate) 325 Mg Cap 325 Mg PO BIDPC Travatan Z Opth Drops (Travoprost) 0.004 % Soln 1 Drop EACH EYE HS Citalopram (Citalopram Hydrobromide) 60 Mg PO DAILY Please take 1.5 pills daily Reported Amlodipine (Amlodipine Besylate) 5 Mg Tab 5 Mg PO BID Advair Diskus Inh (Fluticasone-Salmeterol Inh) 500-50 Mcg/Blist Aer 1 Puff INH BID Rinse mouth after use. Combivent Respimat Inh (Ipratropium-Albuterol Inh) 20-100 Group Home/Act Aero 1 Puff INH QID Vitamin C (Ascorbic Acid) 1,000 Mg Tablet.er 1,000 Mg PO DAILY Lactobacillus Acidophilus 1 Tab Tab 1 Tab PO TIDAC Allergies: Coded Allergies: Sulfa (Sulfonamide Antibiotics) (Verified Allergy, Severe, Anaphylaxis, ) metronidazole (Verified Allergy, Severe, Fever, colitis, 09/06/17) While being treated for Cdiff. Doubt if true allergy. penicillin G (Verified Allergy, Severe, Anaphylaxis, 09/06/17) sulfamethoxazole (Verified Allergy, Severe, Anaphylaxis, 09/06/17) trimethoprim (Verified Allergy, Severe, Anaphylaxis, 09/06/17) erythromycin base (Verified Allergy, Intermediate, Rash, 09/06/17) MRI PRECAUTION (Verified Adverse Reaction, Severe, BLADDER STIMULATOR, ) BRAIN ONLY ON RECEIVE ONLY COIL, P.O. 01/11/17, DML meperidine (Verified Adverse Reaction, Unknown, Psychosis, 09/06/17) morphine (Verified Adverse Reaction, Unknown, Psychosis, 09/06/17) Uncoded Allergies: surgical tape (Allergy, Severe, 12/15/13) Active Ordered Medications Active Medications Levofloxacin/ Dextrose 150 ml @ 100 mls/hr ONCE ONCE IV; Start 09/06/17 at 22 :00; Stop 09/06/17 at 23:29 Family History Mother-VA Father-VA Social History Lives with 60 year smoking history. Quit 2012 History of alcoholism. Quit 2007 No illicit drug use Physical Exam Vital Signs Vital Signs Date Time Temp Pulse Resp B/P (MAP) Pulse Ox O2 Delivery O2 Flow Rate FiO2 09/06/17 20:53 68 18 175/76 (109) 95 Room Air 09/06/17 20:25 17 95 Room Air 09/06/17 19:47 64 17 94 Room Air 09/06/17 19:43 98.5 65 18 154/69 (97) 94 Physical Exam GENERAL: This is a well-nourished, well-developed patient, in no apparent distress. Sleeping SKIN: Warm and dry. Wound over left foot covered with wound vac. Several stage 2 ulcers present over lateral left foot. No sacral ulcers. HEAD: Atraumatic. Normocephalic. EYES: Pupils equal round and reactive. Extraocular motions intact. No scleral icterus. No injection or drainage. ENT: Nose without bleeding. Throat without erythema, tonsillar hypertrophy or exudate. Uvula midline. Airway patent. NECK: Trachea midline. No JVD or lymphadenopathy. Supple, nontender. CARDIOVASCULAR: Regular rhythm and rate without murmurs RESPIRATORY: Decreased breath sounds bilaterally, especially in lower lung leonard. Occasional wheezes. Crackles heard, especially on left GASTROINTESTINAL: Abdomen soft, non-tender, nondistended. No hepato-splenomegaly , or palpable masses. No guarding. MUSCULOSKELETAL: No joint tenderness, effusion, or edema noted. No calf tenderness. Negative Homans sign bilaterally. NEUROLOGICAL: Awake and alert. Oriented x3. Cranial nerves II through XII intact. Motor and sensory grossly within normal limits. Five out of 5 muscle strength in all muscle groups. Normal speech. No sensory deficits. Laboratory Laboratory Tests Test 09/06/17 20:30 09/06/17 20:35 09/06/17 22:00 White Blood Count 19.8 Red Blood Count 3.72 Hemoglobin 10.1 Hematocrit 30.9 Mean Corpuscular Volume 83.1 Mean Corpuscular Hemoglobin 27.1 Mean Corpuscular Hemoglobin Concent 32.7 Red Cell Distribution Width 17.4 Platelet Count 447 Mean Platelet Volume 7.6 Neutrophils (%) (Auto) 78.6 Lymphocytes (%) (Auto) 9.1 Monocytes (%) (Auto) 9.6 Eosinophils (%) (Auto) 2.4 Basophils (%) (Auto) 0.3 Neutrophils # (Auto) 15.6 Lymphocytes # (Auto) 1.8 Monocytes # (Auto) 1.9 Eosinophils # (Auto) 0.5 Basophils # (Auto) 0.1 CBC Comment DIFF FINAL Differential Comment Blood Urea Nitrogen 23 Creatinine 0.88 Random Glucose 140 Total Protein 7.1 Albumin 2.5 Calcium Level 9.3 Magnesium Level 1.7 Alkaline Phosphatase 90 Aspartate Amino Transf (AST/SGOT) 21 Alanine Aminotransferase (ALT/SGPT) 24 Total Bilirubin 0.2 Sodium Level 137 Potassium Level 3.9 Chloride Level 102 Carbon Dioxide Level 26.6 Anion Gap 8 Estimat Glomerular Filtration Rate 85 Troponin I LESS THAN 0.02 C-Reactive Protein 18.00 Lipase 63 Urine Color YELLOW Urine Turbidity HAZY Urine pH 5.5 Urine Specific Mellette 1.016 Urine Protein 100 Urine Glucose (UA) NEG Urine Ketones NEG Urine Occult Blood NEG Urine Nitrite POS Urine Bilirubin NEG Urine Urobilinogen LESS THAN 2.0 Urine Leukocyte Esterase MOD Urine RBC 1 Urine WBC 11 Urine Amorphous Sediment RARE Urine Bacteria MANY Microscopic Urinalysis Comment CULTURE INDICATED Lactic Acid Level 0.5 Date/Time Source Procedure Growth Status 09/06/17 22:00 Blood Peripheral Aerobic Blood Culture Pending Received 09/06/17 22:00 Blood Peripheral Anaerobic Blood Culture Pending Received 09/06/17 20:35 Urine Random Urine Urine Culture Pending Received Result Diagram: 09/06/17202909/06/172029 Imaging Last Impressions Chest X-Ray 09/06/172018 Signed Impressions: Service Date/Time: Wednesday, September 06, 2017 21:16 - CONCLUSION: 1. Positive for left effusion and basilar dependent airspace disease increased from August 31. Right lung relatively clear except for minimal scarring or atelectasis. Richard Tripp MD Septic Shock Reassessment Heart: Regular rate and rhythm Lungs: Course Skin: Warm, Dry Peripheral Pulses: Weak Left Dorsalis Pedis Weak Left Posterior Tibial Bounding Right Dorsalis Pedis Bounding Right Posterior Tibial Capillary Refill: <2 seconds Caprini VTE Risk Assessment Caprini VTE Risk Assessment: Mod/High Risk (score >= 2) Caprini Risk Assessment Model Point Value = 1 Point Value = 2 Point Value = 3 Point Value = 5 Age 41-60 Minor surgery BMI > 25 kg/m2 Swollen legs Varicose veins or History of unexplained or recurrent spontaneous Oral contraceptives or hormone replacement Sepsis (< 1 month) Serious lung disease, including pneumonia (< 1 month) Abnormal pulmonary function Acute myocardial infarction Congestive heart failure (< 1 month) History of inflammatory bowel disease Medical patient at bed rest Age 61-74 Arthroscopic surgery Major open surgery (> 45 min) Laparoscopic surgery (> 45 min) Malignancy Confined to bed (> 72 hours) Immobilizing plaster cast Central venous access Age >= 75 History of VTE Family history of VTE Factor V Leiden Prothrombin [id number] Lupus anticoagulant Anticardiolipin antibodies Elevated serum homocysteine Heparin-induced thrombocytopenia Other congenital or acquired thrombophilia Stroke (< 1 month) Elective arthroplasty Hip, pelvis, or leg fracture Acute spinal cord injury (< 1 month) Prophylaxis Regimen Total Risk Factor Score Risk Level Prophylaxis Regimen 0-1 Low Early ambulation 2 Moderate Order ONE of the following: *Sequential Compression Device (SCD) *Heparin 5000 units SQ BID 3-4 Higher Order ONE of the following medications: *Heparin 5000 units SQ TID *Enoxaparin/Lovenox 40 mg SQ daily (WT < 150 kg, CrCl > 30 mL/min) *Enoxaparin/Lovenox 30 mg SQ daily (WT < 150 kg, CrCl > 10-29 mL/min) *Enoxaparin/Lovenox 30 mg SQ BID (WT < 150 kg, CrCl > 30 mL/min) AND/OR *Sequential Compression Device (SCD) 5 or more Highest Order ONE of the following medications: *Heparin 5000 units SQ TID (Preferred with Epidurals) *Enoxaparin/Lovenox 40 mg SQ daily (WT < 150 kg, CrCl > 30 mL/min) *Enoxaparin/Lovenox 30 mg SQ daily (WT < 150 kg, CrCl > 10-29 mL/min) *Enoxaparin/Lovenox 30 mg SQ BID (WT < 150 kg, CrCl > 30 mL/min) AND *Sequential Compression Device (SCD) Assessment and Plan Assessment and Plan 72 y/o male with past medical history significant for recent osteomyelitis and amputation, recent thoracentesis for pleural effusion, COPD, dementia, C diff presents with drowsiness from home after being discharged from inpatient rehab last week. Found to have leukocytosis, left pleural effusion, and UTI. We'll admit for management and workup. Code Status DNR/DNI Discussed Condition With Dr. Samuel Problem List: (1) Pleural effusion, left ICD Codes: J90 - Pleural effusion, not elsewhere classified Status: Acute Plan: Chest xray today shows left effusion and basilar dependent airspace disease increased from August 31. 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 Cultures were negative. Echo on 08/29 shows hyperdynamic left systolic function with EF of 65-70%. Clinically, no shortness of breath, not requiring oxygen. Unsure etiology of recurrent effusion -Supplemental O2 PRN -Continue home COPD meds -Duonebs, Albuterol PRN -May benefit from thoracentesis -Possible pulmonology referral if unknown source/cause (2) UTI (urinary tract infection) ICD Codes: N39.0 - Urinary tract infection, site not specified Status: Acute Plan: UA significant for positive nitrites, moderate leukocyte esterase, 11 WBC , many bacteria Urine with dark, strong odor. Pt denies any symptoms clinically WBC 19.8. No other SIRS criteria met. Vital signs stable. No lactic acidosis -Given Levaquin 750mg in ED, continue daily for 5 days -Urine culture pending -Encourage hydration (3) Partial nontraumatic amputation of foot ICD Codes: Z89.439 - Acquired absence of unspecified foot Status: Acute Plan: History of osteomyelitis and amputation of hallux on left foot. Current wound vac in place. Several pressure ulcers present on left foot as well CRP 18, ESR 95. No signs of infection except for leukocytosis, but need to rule out osteomyelitis Pt hesitant about starting more antibiotics due to adverse reactions in the past and concern for C diff -Complete foot xray -Blood culture pending -May need podiatry referral -Wound management consult -Gabapentin, Percocet for pain -PT/OT (4) Hypertension ICD Codes: I10 - Hypertension Status: Chronic Plan: BP 154/59 on admission. Continue home meds: Norvasc and Lisinopril Clonidine PRN (5) COPD (chronic obstructive pulmonary disease) ICD Codes: J44.9 - Chronic obstructive pulmonary disease Status: Chronic Plan: History of chronic COPD -Continue home Spiriva, Symbicort -Duonebs and Albuterol PRN (6) FEN/PPX Status: Acute Plan: Fluids: Oral, holding due to pleural effusion Electrolytes: stable, continue to monitor Nutrition: regular diet DVT ppx: Heparin Physician Certification 2 Midnight Certification Type: Admission for Inpatient Services Order for Inpatient Services The services are ordered in accordance with Medicare regulations or non- Medicare payer requirements, as applicable. In the case of services not specified as inpatient-only, they are appropriately provided as inpatient services in accordance with the 2-midnight benchmark. Estimated LOS (days): 3 days is the estimated time the patient will need to remain in the hospital, assuming treatment plan goals are met and no additional complications. Post-Hospital Plan: Home Health Problem Qualifiers (1) UTI (urinary tract infection): Qualified Codes: N30.00 - Acute cystitis without hematuria (2) Partial nontraumatic amputation of foot: Qualified Codes: Z89.432 - Acquired absence of left foot (3) Hypertension: Qualified Codes: I10 - Essential (primary) hypertension (4) COPD (chronic obstructive pulmonary disease): Qualified Codes: J44.9 - Chronic obstructive pulmonary disease, unspecified Logan Joe MD, R2 Sep 06, 2017 22:43
[2017-09-06] MEDS ORDERED: SODIUM CHLOR 0.9% 1000 ML INJ 1,000 ML IV SCH (23:23)
[2017-09-06] MEDS ORDERED: NALOXONE HCL 0.4 MG/ML AMP IV PUSH PRN (23:30)
[2017-09-06] MEDS ORDERED: BISACODYL 10 MG SUPP RECTAL PRN (23:30)
[2017-09-06] MEDS ORDERED: ACETAMINOPHEN 325 MG TAB PO PRN (23:30)
[2017-09-06] MEDS ORDERED: SENNOSIDES 8.6 MG TAB PO PRN (23:30)
[2017-09-06] MEDS ORDERED: SODIUM CHLORIDE 0.9% FLUSH 10 ML FLUSH IV FLUSH PRN (23:30)
[2017-09-06] MEDS ORDERED: MAGNESIUM HYDROXIDE SUSP 30 ML CUP PO PRN (23:30)
[2017-09-06] MEDS ORDERED: ONDANSETRON HCL 4 MG/2 ML VIAL IVP PRN (23:30)
[2017-09-06] MEDS ORDERED: LACTULOSE SYRUP 20 GM/30 ML CUP PO PRN (23:30)
[2017-09-06 23:42] VITALS: BP 159/58; TEMP 98.4
[2017-09-07] VITALS (10 sets, daily range): BP systolic 148–187; BP diastolic 68–78; PULSE 66–88; RESP 18–20; TEMP 98–99.9; O2SAT 93–96
[2017-09-07] MEDS: HEPARIN SODIUM - SQ 10,000 UNITS/ML VIAL SQ SCH ×3 (01:21→23:46)
[2017-09-07] MEDS ORDERED: RESP: ALBUTEROL 2.5 MG/3 ML NEB (PRN) INH (01:30)
[2017-09-07] MEDS ORDERED: NALOXONE HCL 0.4 MG/ML AMP IV PUSH PRN (01:30)
[2017-09-07] MEDS: GABAPENTIN 100 MG CAP PO SCH ×3 (06:14→21:09)
[2017-09-07 07:26] LABS: AUTOMATED NEUTROPHIL # 15.5 TH/MM3 (1.8-7.7); BASOPHIL # 0.1 TH/MM3 (0-0.2); BASOPHIL % 0.4 % (0.0-2.0); EOSINOPHIL # 0.5 TH/MM3 (0-0.4); EOSINOPHIL % 2.6 % (0.0-4.0); HEMATOCRIT 29.7 % (39.0-51.0); HEMO FLAGS DIFF FINAL; LYMPH % 7.6 % (9.0-44.0); LYMPHOCYTE # 1.5 TH/MM3 (1.0-4.8); MEAN CELL VOLUME 82.7 FL (80.0-100.0); MEAN CORPUSCULAR HEMOGLOBIN 26.5 PG (27.0-34.0); NEUT % 80.4 % (16.0-70.0); PLATELET COUNT 386 TH/MM3 (150-450); RED BLOOD COUNT 3.59 MIL/MM3 (4.50-5.90); RED CELL DISTRIBUTION WIDTH 17.1 % (11.6-17.2); WHITE BLOOD COUNT 19.2 TH/MM3 (4.0-11.0)
[2017-09-07 07:50] LABS: BICARBONATE 27.6 MEQ/L (21.0-32.0); POTASSIUM 3.9 MEQ/L (3.5-5.1)
[2017-09-07] MEDS ORDERED: fentaNYL 25 MCG/HR PATCH T-DERMAL ONE (08:00)
[2017-09-07] MEDS ORDERED: NON-FORMULARY DRUG (Ipratropium-Albuterol Inh (Combivent Respimat Inh) 1 PUFF) INH SCH (09:00)
[2017-09-07] MEDS: ASPIRIN EC 81 MG TABEC PO SCH (09:00)
[2017-09-07] MEDS: RESP: ALBUTEROL 2.5 MG/IPRATROPIUM 0.5 MG NEB (SCH) INH ×3 (09:48→20:47)
[2017-09-07] MEDS: FERROUS SULFATE 325 MG (65 MG ELEMENTAL IRON) TAB PO SCH ×2 (09:52→17:24)
[2017-09-07] MEDS: CITALOPRAM HYDROBROMIDE 20 MG TAB PO SCH (09:53)
[2017-09-07] MEDS: SODIUM CHLORIDE 0.9% FLUSH 10 ML FLUSH IV FLUSH SCH ×2 (09:53→21:10)
[2017-09-07] MEDS: ALBUTEROL SULFATE 90 MCG/ACT HFA 8 GM INHALER INH SCH ×4 (09:54→21:11)
[2017-09-07] MEDS: BUDESONIDE-FORMOTEROL 160/4.5 MCG INHALER INH SCH ×2 (09:55→21:11)
[2017-09-07] MEDS: TIOTROPIUM BROMIDE 18 MCG INH INH SCH (09:55)
[2017-09-07] MEDS: DOCUSATE SODIUM 50 MG/SENNA 8.6 MG TAB PO SCH ×2 (09:56→21:00)
[2017-09-07] MEDS: amLODIPine BESYLATE 5 MG TAB PO SCH ×2 (09:56→21:09)
[2017-09-07] MEDS ORDERED: VANCOMYCIN INJ 1,550 MG in SODIUM CHLORID 0.9% 500 ML INJ 500 ML IV SCH (10:00)
[2017-09-07] MEDS: LACTOBACILLUS ACIDOPHILUS TAB PO SCH ×3 (10:03→17:24)
--- NOTE | 2017-09-07 10:08 | RADRPT ---
EXAM DATE/TIME: 09/07/2017 09:01 [facility] COMPARISON: FOOT LEFT COMPLETE (AMS2DUS), July 24, 2017, 11:21. INDICATIONS : Left foot pain, no injury. MEDICAL HISTORY : Osteomyelitis. SURGICAL HISTORY : Partial amputation, left foot. ENCOUNTER: Initial ACUITY: 2 months PAIN SCORE: 10/10 LOCATION: Left foot FINDINGS: Diffuse osteopenia. Amputation of the 1st ray. Deformity of the proximal phalanx of the 2nd digit p roximal phalanx is similar to prior radiograph. No evidence of dislocation. No periosteal reaction. No radiopaque foreign bodies. CONCLUSION: No evidence of focal bony destruction or periosteal reaction. Hector Garcia MD on September 07, 2017 at 10:06 Board Certified Radiologist. This report was verified electronically.
--- NOTE | 2017-09-07 10:46 | EKG ---
Date Performed: 09/06/2017 Time Performed: 20:47:04 PTAGE: 72 years EKG: Sinus rhythm WITH FIRST DEGREE AV BLOCK WITH OCCASIONAL SUPRAVENTRICULAR PREMATURE COMPLEXES RIGHT BUNDLE BRANCH BLOCK Compared to previous tracing sinus rhythm has replaced atrial fibrillation with rapid ventricul ar response ABNORMAL ECG PREVIOUS TRACING : 07/16/2017 07.17 DOCTOR: Bro Armstrong Interpretating Date/Time 09/07/2017 10:43:47
--- NOTE | 2017-09-07 15:07 | PD.WCN.NOT ---
Wound Consult Description: Consult for wound VAC MANAGEMENT of left foot per ARSLAN Joe Communicated with: JERRY Jaime Recommendation: Change wound VAC to left medial foot M-W-F with wound VAC settings @125mmHg low continuous suction. Change dressing to left lateral foot wounds daily with Santyl and dry cover. Additional Information: Patient seen on [facility] for assessment of left medial and lateral foot wounds. Medial left foot wound is noted with Xeroform and rolled gauze that is VAC appropriate for possibly another week. Left lateral 2 foot wounds are noted with telfa and removed to reveal necrotic yellow adherent slough noted to wound beds measuring ~1cm x 1cm x slough. Mild odor noted to left foot without active drainage. Wounds were cleansed with NS and gauze prior to covering with dry gauze and securing with rolled gauze encompassing wound VAC dressing, patient was being placed on stretcher for ultrasound. Neg Pressure Wound Therapy Wound Location Wound Location: left medial foot Wound Description Length: 10.5cm Width: 3.5cm Depth: <1cm Wound bed appearance: ~90% red granulating tissue and ~10% beige moist adherent tissue that does not appear to be necrotic tissue nor tendon. Periwound appearance: Other (dry) Settings Suction: 125 mmHg, Continuous Intensity: Low Other Information: Mushroomed Foam type: Black Number of pieces: 2 Additonal Information Wound cleansed with NS and gauze. Measured and described above. Periwound was skin prepped with Cavilon spray prior to outlining wound with stoma paste for seal.1 piece of black foam was cut to fit in wound bed and secured with VAC drape. Small hole was then cut in drape to allow for mushroomed piece of black foam to be applied and used with sensitrac pad placement. Settings were @ 125mmHg low continuous suction with wound vac started. No leaks were noted. VAC drape was then reinforced using another piece of VAC drape. Wounds on lateral foot were covered with dry gauze and secured with rolled gauze until Santyl could be ordered and obtained. Marely Torres [facility] Sep 07, 2017 15:07
--- NOTE | 2017-09-07 15:10 | HHI.FPPN ---
Subjective Remarks Patient cognitively back to his baseline. Has pleuritic chest pain with deep breaths on the right, consistent with pleural effusion seen on chest x-ray. Has somewhat increased shortness of breath at home per his report. No abdominal pain , nausea, vomiting, diarrhea. Has not had a bowel movement in 3 days, will get stool softener this morning to help with constipation as he feels somewhat bloated. No calf tenderness. (Дмитрий Duval MD R3) Objective Vitals Vital Signs Date Time Temp Pulse Resp B/P (MAP) Pulse Ox O2 Delivery O2 Flow Rate FiO2 09/07/17 12:05 99.6 88 20 172/78 (109) 95 09/07/17 09:48 94 09/07/17 08:19 99.9 84 20 167/77 (107) 93 09/07/17 08:07 82 09/07/17 04:00 98.4 73 18 148/68 (94) 94 09/07/17 01:30 Room Air 09/07/17 01:30 98.0 66 18 167/73 (104) 93 09/06/17 23:42 98.4 74 16 159/58 (91) 95 09/06/17 20:53 68 18 175/76 (109) 95 Room Air 09/06/17 20:25 17 95 Room Air 09/06/17 19:47 64 17 94 Room Air 09/06/17 19:43 98.5 65 18 154/69 (97) 94 I/O 09/06/17 09/06/17 09/06/17 09/07/17 09/07/17 09/07/17 07:00 15:00 23:00 07:00 15:00 23:00 Intake Total 630 ml Output Total 800 ml 1150 ml Balance -170 ml -1150 ml Intake Oral 480 ml IV Total 150 ml Output Urine Total 800 ml 1150 ml # Bowel Movements 0 (Дмитрий Duval MD R3) Result Diagram: 09/07/1760409/07/17604 Imaging Last 72 hours Impressions Foot X-Ray 09/07/17 0000 Signed Impressions: Service Date/Time: Thursday, September 07, 2017 09:01 - CONCLUSION: No evidence of focal bony destruction or periosteal reaction. Hector Garcia MD Chest X-Ray 09/06/17 2019 Signed Impressions: Service Date/Time: Wednesday, September 06, 2017 21:16 - CONCLUSION: 1. Positive for left effusion and basilar dependent airspace disease increased from August 31. Right lung relatively clear except for minimal scarring or atelectasis. Richard Tripp MD Objective Remarks GENERAL: No distress, sitting up in bed, alert and oriented. SKIN: Warm and dry. Wound over left foot covered with wound vac. Several stage 2 ulcers present over lateral left foot currently wrapped. HEAD: Atraumatic. Normocephalic. EYES: No injection or drainage. ENT: No nasal discharge. CARDIOVASCULAR: Regular rhythm and rate without murmurs, pulses intact peripherally. RESPIRATORY: Rhonchi heard in lung bases, diminished breath sounds on left, somewhat increased use of accessory muscles. Breathing room air. GASTROINTESTINAL: Abdomen soft, non-tender, nondistended. Bowel sounds present. MUSCULOSKELETAL: No calf tenderness. NEUROLOGICAL: Awake and alert. Oriented x3. (Дмитрий Duval MD R3) A/P Assessment and Plan 72 y/o male with past medical history significant for recent osteomyelitis and amputation, recent thoracentesis for pleural effusion, COPD, dementia, C. diff presents with drowsiness after being discharged from inpatient rehab last week. Found to have leukocytosis, left pleural effusion, and UTI. Discharge Planning May require readmission to inpatient rehab depending on hospital course. (Дмитрий Duval MD R3) Attending Attestation A detailed discussion with Dr Duval about patients admission and hospital course was held this morning, patient was then interviewed and examined, Agree with Asssessment and Plan, See new Orders.discussed wifes concerns over phone (Abraham Haider MD) Problem List: (1) Pleural effusion, left ICD Codes: J90 - Pleural effusion, not elsewhere classified Status: Acute Plan: Chest xray shows left effusion and basilar dependent airspace disease increased from August 31. Pleural fluid studies from thoracentesis on 08/31 provider service representative of exudative effusion. Cultures were negative. Echo on 08/29 shows hyperdynamic left systolic function with EF of 65-70%. Clinically, no shortness of breath, not requiring oxygen. Unsure etiology of recurrent effusion -Supplemental O2 PRN -Repeat thoracentesis, diagnostic and therapeutic goals (2) UTI (urinary tract infection) ICD Codes: N39.0 - Urinary tract infection, site not specified Status: Acute Plan: UA significant for positive nitrites, moderate leukocyte esterase, 11 WBC , many bacteria Urine with dark, strong odor. Pt denies any symptoms clinically Leukocytosis present. ESR elevated. Vital signs stable. No lactic acidosis -Will treat with Vancomycin, narrow as cultures return -Refusing antibiotics currently due to concerns for recurring c.diff, will get ID on board to get second opinion on antibiotic choices. -Follow urine and blood cultures -Encourage hydration (3) Partial nontraumatic amputation of foot ICD Codes: Z89.439 - Acquired absence of unspecified foot Status: Chronic Plan: History of osteomyelitis and amputation of hallux on left foot. Current wound vac in place. Several pressure ulcers present on left foot as well CRP 18, ESR 95. No signs of infection except for leukocytosis, x-ray of foot showing no obvious osteomyelitis. Treated with long-term IV vancomycin recently for osteomyelitis. Has severe PAD, multiple lower extremity ulcers, had arterial interventions bilaterally last hospital visit. -Follow blood cultures -Low threshold for MRI foot if not improving -Wound management consult -Gabapentin, Percocet for pain -PT/OT (4) Hypertension ICD Codes: I10 - Hypertension Status: Chronic Plan: Continue home meds: Norvasc and Lisinopril Clonidine PRN (5) COPD (chronic obstructive pulmonary disease) ICD Codes: J44.9 - Chronic obstructive pulmonary disease Status: Chronic Plan: History of chronic COPD -Continue home Spiriva, Symbicort -Duonebs and Albuterol PRN (6) FEN/PPX Status: Acute Plan: Fluids: Oral Electrolytes: stable, continue to monitor Nutrition: regular diet DVT ppx: Heparin (Дмитрий Duval MD R3) Problem Qualifiers (1) UTI (urinary tract infection): Qualified Codes: N30.00 - Acute cystitis without hematuria (2) Partial nontraumatic amputation of foot: Qualified Codes: Z89.432 - Acquired absence of left foot (3) Hypertension: Qualified Codes: I10 - Essential (primary) hypertension (4) COPD (chronic obstructive pulmonary disease): Qualified Codes: J44.9 - Chronic obstructive pulmonary disease, unspecified Дмитрий Duval MD R3 Sep 07, 2017 15:10 Abraham Haider MD Sep 08, 2017 15:02
--- NOTE | 2017-09-07 16:06 | RADRPT ---
EXAM DATE/TIME: 09/07/2017 16:30 [facility] COMPARISON: CHEST EXPIRATION ONLY, August 31, 2017, 14:34. INDICATIONS : Post thoracentesis left lung. MEDICAL HISTORY : Pancreatitis. pleural effusion, CVA SURGICAL HISTORY : Carotid endarterectomy. Appendectomy. ENCOUNTER: Subsequent ACUITY: 1 day PAIN SCORE: 0/10 LOCATION: Left chest FINDINGS: No significant pneumothorax following left-sided thoracentesis. Minimal left basilar airspace disease , presumably atelectasis. Cardiomediastinal contours are stable. Interval removal of right-sided PICC line. Remainder of exam is unchanged. CONCLUSION: 1. No significant pneumothorax following left-sided thoracentesis. 2. Left lower lobe airspace disease, presumably compressive atelectasis. Marco A Chavez MD on September 07, 2017 at 16:02 Board Certified Radiologist. This report was verified electronically.
[2017-09-07 16:40] LABS: PLEURAL FLUID SPECIFIC GRAVITY 1.025; TOTAL PROTEIN,PLEURAL FLUID 3.3 GM/DL
[2017-09-07 17:20] LABS: PLEURAL FLUID LYMPHS 25 %
[2017-09-07] MEDS: COLLAGENASE OINT 30 GM TUBE TOPICAL SCH (17:37)
[2017-09-07] MEDS ORDERED: MISCELLANEOUS PHARMACY INFORMATION XX PRN ×2 (17:45)
[2017-09-07] MEDS ORDERED: ASP: Documented allergy to Penicillins or Cephalosporins PRN (17:45)
[2017-09-07] MEDS ORDERED: NON-FORMULARY DRUG (Travoprost Opth Drops (Travatan Z Opth Drops) 1 DROP) EACH EYE SCH (21:00)
[2017-09-07] MEDS: DONEPEZIL HCL 5 MG TAB PO SCH (21:09)
[2017-09-07] MEDS: LISINOPRIL 20 MG TAB PO SCH (21:09)
[2017-09-07] MEDS: ATORVASTATIN 40 MG TAB PO SCH (21:10)
[2017-09-07] MEDS: LATANOPROST 0.005% OPHT SOLN 2.5 ML BTL EACH EYE SCH (21:11)
[2017-09-07] MEDS: cloNIDine HCL 0.1 MG TAB PO PRN (21:13)
[2017-09-07] MEDS: oxyCODONE/ACETAMINOPHEN 5 MG/325 MG TAB PO PRN (21:13)
[2017-09-07] MEDS ORDERED: LEVOFLOXACIN 750 MG TAB PO SCH ×2 (23:00)
[2017-09-07] MEDS: ERTAPENEM INJ 1,000 MG in SODIUM CHLORIDE 0.9% INJ 100 ML IV SCH (23:46)
[2017-09-08] VITALS (10 sets, daily range): BP systolic 119–166; BP diastolic 60–72; PULSE 76–84; RESP 17–20; TEMP 98.1–100.9; O2SAT 93–96
[2017-09-08] MEDS: GABAPENTIN 100 MG CAP PO SCH ×3 (05:33→21:13)
--- NOTE | 2017-09-08 06:26 | MB ---
cc: CULLEN CESPEDES MD DATE OF CONSULTATION 09/07/[address] Duval. REASON A 72-year-old male with complicated medical history. Admitted with leukocytosis, elevated ESR, urinalysis with apparent UTI. Please assess. HISTORY OF PRESENT ILLNESS This is a 72-year-old white male who was brought to the emergency department yesterday evening because of generalized weakness. The was having difficulty awakening the patient and he was apparently more sedated throughout the day and ambulance services were called and he was brought to the emergency department for evaluation. He reports that he has had some shortness of breath. He had a recent thoracentesis prior to being discharged from the hospital on September 02. He has spent closed for 3 weeks in rehab at [place]. He was also treated for left foot infection due to MRSA with osteomyelitis involving the left foot. He underwent debridement and amputation of the left hallux and metatarsal and medial cuneiform bone. Antibiotics were given up until August 27 in the form vancomycin. The pleural fluid from the left-sided thoracentesis performed on 08/31 had no growth. Pathology on the fluid revealed scattered atypical mesothelial cells in the background of mixed inflammation. Chest x-ray was performed and showed left effusion and basilar dependent airspace disease which was increased from August 31. The patient underwent thoracentesis again today and it showed 343 white cells 7042 red cells, 8% neutrophils, 25% lymphocytes, 13% monocytes and 48% eosinophils. The peripheral white blood cell count was elevated at 19.2, 80% neutrophils. Urinalysis revealed 11 white cells and many bacteria. Urine culture has gram-negative walter. The patient has had a condom catheter up until hospitalization and the condom catheter remains in place. He was discharged from rehab with a condom catheter on September 02. He had low-grade fever with temperature of 99.9 degrees. He has been given a dose of Levaquin. The patient is currently awake and alert. He states that his breathing is a lot better since the thoracentesis. Denies chest pain and chills. No nausea or vomiting. PAST MEDICAL HISTORY 1. Pertinent features mentioned above. 2. Additional history of hypertension. 3. COPD. 4. Carotid artery disease. 5. History of C-difficile in April 2017. ALLERGIES MRI PRECAUTION. SULFA TRIMETHOPRIM. SULFAMETHOXAZOLE. PENICILLIN G. METRONIDAZOLE. MORPHINE. MEPERIDINE. ERYTHROMYCIN BASE. SURGICAL TAPE. MEDICATIONS 1. Levaquin. 2. Lipitor. 3. Aricept. 4. Latanoprost eye drops. 5. Prinivil. 6. Norvasc. 7. Ecotrin. 8. Celexa. 9. Ferrous sulfate. 10. Symbicort. 11. Spiriva. 12. Lactinex. 13. Neurontin. SOCIAL HISTORY The patient is . No tobacco or alcohol or illicit drugs. FAMILY HISTORY Noncontributory. REVIEW OF SYSTEMS Significant for generalized malaise, otherwise negative on 10-point review. PHYSICAL EXAMINATION GENERAL: This is a slender, well-developed male who is in no acute distress. He is awake and alert and oriented. VITAL SIGNS: Temperature 98.7, BP 105/76, respirations 20, heart rate 83. HEENT: The head is atraumatic. Extraocular movements grossly intact. Pupils reactive to light, without icterus. Oropharynx - moist mucosa without lesions. NECK: Supple, without adenopathy. LUNGS: Clear breath sounds which are decreased on the left side. HEART: Regular S1-S2, without murmurs. ABDOMEN: Bowel sounds present, soft, nontender. RECTAL: Not performed. EXTREMITIES: The left foot has a vacuum device in place over the left foot wound at the inner aspect of the foot. There is no visible erythema around the vacuum. SKIN: No rash. NEURO: The patient is alert and oriented. No gross focal findings. PSYCHIATRIC: The patient is calm and cooperative. LABORATORY DATA WBC 19.2, platelets 386, 87 neutrophils, hemoglobin 9.5. Sed rate 95. C-reactive protein 18. LFTs normal. Creatinine 0.83, BUN 21, estimated GFR 91. IMPRESSION 1. Recurrent left effusion. Culture of the fluid has been negative on prior testing. 2. Urinary infection. 3. Leukocytosis and low grade fever likely due to urinary tract infection. Urine culture has gram-negative walter. 4. Elevated sed rate and C-reactive protein. The patient has recent cultures. The patient has history of osteomyelitis and has been treated with a full course of IV antibiotics for MRSA. The foot appears stable. RECOMMENDATIONS 1. Discontinue Levaquin since the patient has a history of C-difficile and I would rather not use Levaquin in his case. 2. Begin ertapenem. 3. Monitor the urine culture. 4. Monitor white blood cell count and temperature. 5. Continue Lactinex. 6. Repeat the urine culture in a couple of days to check for clearance. Hopefully this will clear quickly. 7. Consider pulmonary consultation for recurrent pleural effusion. Due to the patient's problems with IV access, I will also order an IV catheter to be inserted by the vascular team for IV access. If it is felt that he needs more frequent medication administration, then we can consider putting in a midline or a PICC line but I cannot determine that he will need long-term antibiotics at this time. Thank you for this consultation. Cullen Cespedes MD FD/SSB /5:46 PM /5:56 AM
[2017-09-08 07:28] LABS: HEMATOCRIT 28.5 % (39.0-51.0); MEAN CELL VOLUME 82.5 FL (80.0-100.0); MEAN CORPUSCULAR HEMOGLOBIN 26.7 PG (27.0-34.0); MEAN CORPUSCULAR HGB CONC 32.4 % (32.0-36.0); PLATELET COUNT 434 TH/MM3 (150-450); RED BLOOD COUNT 3.46 MIL/MM3 (4.50-5.90); REVIEW FLAG FINAL; WHITE BLOOD COUNT 14.5 TH/MM3 (4.0-11.0)
[2017-09-08 07:51] LABS: BICARBONATE 26.7 MEQ/L (21.0-32.0); POTASSIUM 3.8 MEQ/L (3.5-5.1)
[2017-09-08] MEDS: RESP: ALBUTEROL 2.5 MG/IPRATROPIUM 0.5 MG NEB (SCH) INH ×3 (08:44→19:37)
[2017-09-08] MEDS: COLLAGENASE OINT 30 GM TUBE TOPICAL SCH (09:00)
[2017-09-08] MEDS: DOCUSATE SODIUM 50 MG/SENNA 8.6 MG TAB PO SCH ×2 (09:00→21:12)
[2017-09-08] MEDS: FERROUS SULFATE 325 MG (65 MG ELEMENTAL IRON) TAB PO SCH ×2 (09:19→17:45)
[2017-09-08] MEDS: amLODIPine BESYLATE 5 MG TAB PO SCH ×2 (09:19→21:14)
[2017-09-08] MEDS: ASPIRIN EC 81 MG TABEC PO SCH (09:19)
[2017-09-08] MEDS: BUDESONIDE-FORMOTEROL 160/4.5 MCG INHALER INH SCH ×2 (09:20→21:15)
[2017-09-08] MEDS: SODIUM CHLORIDE 0.9% FLUSH 10 ML FLUSH IV FLUSH SCH ×2 (09:20→21:15)
[2017-09-08] MEDS: TIOTROPIUM BROMIDE 18 MCG INH INH SCH (09:20)
[2017-09-08] MEDS: LACTOBACILLUS ACIDOPHILUS TAB PO SCH ×3 (09:20→17:45)
[2017-09-08] MEDS: ALBUTEROL SULFATE 90 MCG/ACT HFA 8 GM INHALER INH SCH ×4 (09:20→21:16)
[2017-09-08] MEDS: CITALOPRAM HYDROBROMIDE 20 MG TAB PO SCH (09:20)
--- NOTE | 2017-09-08 11:59 | HHI.FPPN ---
Subjective Remarks No acute events overnight. He is afebrile overnight. White count trending down. Overall he feels better. He had pleurocentesis done yesterday and feels he is less short of breath. He reports pleuritic chest pain is gone. Overall he feels better. No more episodes of drowsiness or confusion. No chest pain, shortness of breath, abdominal pain, nausea, vomiting, or diarrhea. (Дмитрий Duval MD R3) Objective Vitals Vital Signs Date Time Temp Pulse Resp B/P (MAP) Pulse Ox O2 Delivery O2 Flow Rate FiO2 09/08/17 09:30 Room Air 09/08/17 08:45 95 09/08/17 08:05 98.9 79 18 166/72 (103) 94 09/08/17 04:00 98.1 84 18 164/72 (102) 93 09/08/17 00:00 99.1 78 20 154/72 (99) 94 09/08/17 00:00 Room Air 09/07/17 20:48 95 21 09/07/17 20:00 98.9 88 18 187/75 (112) 96 09/07/17 20:00 Room Air 09/07/17 20:00 85 09/07/17 16:05 83 20 158/76 (103) 94 09/07/17 15:50 98.7 84 20 163/74 (103) 93 09/07/17 12:05 99.6 88 20 172/78 (109) 95 09/07/17 12:00 95 Room Air I/O 09/07/17 09/07/17 09/07/17 09/08/17 09/08/17 09/08/17 07:00 15:00 23:00 07:00 15:00 23:00 Intake Total 630 ml 360 ml 240 ml Output Total 800 ml 1150 ml 500 ml 550 ml Balance -170 ml -1150 ml -140 ml -310 ml Intake Oral 480 ml 360 ml 240 ml IV Total 150 ml Output Urine Total 800 ml 1150 ml 500 ml 550 ml # Voids 1 # Bowel Movements 0 0 2 (Дмитрий Duval MD R3) Result Diagram: 09/08/17 0550 09/08/17 0550 Imaging Last 72 hours Impressions Foot X-Ray 09/07/17 0000 Signed Impressions: Service Date/Time: Thursday, September 07, 2017 09:01 - CONCLUSION: No evidence of focal bony destruction or periosteal reaction. Hector Garcia MD Chest X-Ray 09/07/17 0000 Signed Impressions: Service Date/Time: Thursday, September 07, 2017 16:30 - CONCLUSION: 1. No significant pneumothorax following left-sided thoracentesis. 2. Left lower lobe airspace disease, presumably compressive atelectasis. Marco A Chavez MD Chest X-Ray 09/06/17 2019 Signed Impressions: Service Date/Time: Wednesday, September 06, 2017 21:16 - CONCLUSION: 1. Positive for left effusion and basilar dependent airspace disease increased from August 31. Right lung relatively clear except for minimal scarring or atelectasis. Richard Tripp MD Objective Remarks GENERAL: Sitting up in bed, no distress, oriented and alert SKIN: Wound over left foot covered with wound vac. Several stage 2 ulcers present over lateral left foot currently wrapped. HEAD: Atraumatic. Normocephalic. EYES: No injection or drainage. ENT: No nasal discharge. CARDIOVASCULAR: Regular rhythm and rate without murmurs, pulses intact peripherally. RESPIRATORY: Has mild diffuse wheezing, some rhonchi in bases, no respiratory distress GASTROINTESTINAL: Abdomen soft, non-tender, nondistended. Bowel sounds present. MUSCULOSKELETAL: No calf tenderness. NEUROLOGICAL: Awake and alert. Oriented x3. (Дмитрий Duval MD R3) A/P Assessment and Plan 72 y/o male with past medical history significant for recent osteomyelitis and amputation, recent thoracentesis for pleural effusion, COPD, dementia, C. diff presents with drowsiness after being discharged from inpatient rehab last week. Found to have leukocytosis, left pleural effusion, and UTI. Discharge Planning May require readmission to inpatient rehab depending on hospital course. (Дмитрий Duval MD R3) Attending Attestation A detailed discussion with Dr Duval about patients admission and hospital course was held this morning, patient was then interviewed and examined, Agree with Asssessment and Plan, See new Orders.Patients voice strong and color good (Abraham Haider MD) Problem List: (1) UTI (urinary tract infection) ICD Codes: N39.0 - Urinary tract infection, site not specified Status: Acute Plan: UA significant for positive nitrites, moderate leukocyte esterase, 11 WBC , many bacteria Urine with dark, strong odor. Pt denies any symptoms clinically Leukocytosis present. ESR elevated. Vital signs stable. No lactic acidosis -Infectious disease consulted, started Ertapenem on 09/07 -Follow urine and blood cultures, sensitivities -Encourage hydration (2) Pleural effusion, left ICD Codes: J90 - Pleural effusion, not elsewhere classified Status: Acute Plan: Chest xray shows left effusion and basilar dependent airspace disease increased from August 31. Pleural fluid studies from thoracentesis on 08/31 client care representative of exudative effusion. Cultures were negative. Echo on 08/29 shows hyperdynamic left systolic function with EF of 65-70%. Repeat pleurocentesis performed 09/07/17, pH 8.5, WBC 843, RBC 7042, glucose normal, LDH normal. Likely reactive, if continuing to recur, would need further workup for potential malignant source, infectious sources, etc. -Supplemental O2 PRN -Monitor for recurrence -Further workup if it continues to recur (3) Partial nontraumatic amputation of foot ICD Codes: Z89.439 - Acquired absence of unspecified foot Status: Chronic Plan: History of osteomyelitis and amputation of hallux on left foot. Current wound vac in place. Several pressure ulcers present on left foot as well CRP 18, ESR 95. No signs of infection except for leukocytosis, x-ray of foot showing no obvious osteomyelitis. Treated with long-term IV vancomycin recently for osteomyelitis. Has severe PAD, multiple lower extremity ulcers, had arterial interventions bilaterally last hospital visit. -Follow blood cultures -Low threshold for MRI foot if not improving -Wound management consult -Gabapentin, Percocet for pain -Regularly scheduled wound vac changes -PT/OT (4) Hypertension ICD Codes: I10 - Hypertension Status: Chronic Plan: Continue home meds: Norvasc and Lisinopril Clonidine PRN (5) COPD (chronic obstructive pulmonary disease) ICD Codes: J44.9 - Chronic obstructive pulmonary disease Status: Chronic Plan: History of chronic COPD -Continue home Spiriva, Symbicort -Duonebs and Albuterol PRN (6) FEN/PPX Status: Acute Plan: Fluids: Oral Electrolytes: stable, continue to monitor Nutrition: regular diet DVT ppx: Heparin (Дмитрий Duval MD R3) Problem Qualifiers (1) UTI (urinary tract infection): Qualified Codes: N30.00 - Acute cystitis without hematuria (2) Partial nontraumatic amputation of foot: Qualified Codes: Z89.432 - Acquired absence of left foot (3) Hypertension: Qualified Codes: I10 - Essential (primary) hypertension (4) COPD (chronic obstructive pulmonary disease): Qualified Codes: J44.9 - Chronic obstructive pulmonary disease, unspecified Дмитрий Duval MD R3 Sep 08, 2017 11:59 Abraham Haider MD Sep 08, 2017 15:10
[2017-09-08] MEDS: HEPARIN SODIUM - SQ 10,000 UNITS/ML VIAL SQ SCH (13:11)
[2017-09-08] MEDS: oxyCODONE/ACETAMINOPHEN 5 MG/325 MG TAB PO PRN (13:11)
--- NOTE | 2017-09-08 13:30 | HHI.IDPN ---
Note Infectious Disease Note Patient feels okay. Says he gets a twinge of pain in the left chest when he takes a deep breath. No fever. Had normal bowel movement. Brought to the emergency department because of generalized weakness. Post left thoracentesis. PAST MEDICAL HISTORY 1. hypertension. 3. COPD. 4. Carotid artery disease. 5. History of C-difficile in April 2017. ALLERGIES MRI PRECAUTION. SULFA TRIMETHOPRIM. SULFAMETHOXAZOLE. PENICILLIN G. METRONIDAZOLE. MORPHINE. MEPERIDINE. ERYTHROMYCIN BASE. SURGICAL TAPE. ANTIBIOTICS: Ertapenem. SOCIAL HISTORY The patient is . No tobacco or alcohol or illicit drugs. FAMILY HISTORY Noncontributory. OBJECTIVE: Vital Signs Date Time Temp Pulse Resp B/P (MAP) Pulse Ox O2 Delivery O2 Flow Rate FiO2 09/08/17 12:04 98.4 79 18 145/68 (93) 95 09/08/17 09:30 Room Air 09/08/17 08:45 95 09/08/17 08:05 98.9 79 18 166/72 (103) 94 09/08/17 04:00 98.1 84 18 164/72 (102) 93 09/08/17 00:00 99.1 78 20 154/72 (99) 94 09/08/17 00:00 Room Air 09/07/17 20:48 95 21 09/07/17 20:00 98.9 88 18 187/75 (112) 96 09/07/17 20:00 Room Air 09/07/17 20:00 85 09/07/17 16:05 83 20 158/76 (103) 94 09/07/17 15:50 98.7 84 20 163/74 (103) 93 Laboratory Tests Test 09/07/17 15:30 09/08/17 05:50 Pleural Fluid pH 8.5 Pleural Fluid Specific Shirley 1.025 Pleural Fluid WBC 843 /MM3 Pleural Fluid RBC 7042 /MM3 Pleural Fluid Neutrophils 8 % Pleural Fluid Lymphocytes 25 % Pleural Fluid Monocytes 13 % Pleural Fluid Eosinophils 48 % Pleural Fluid Histiocytes 3 % Pleural Fluid Mesothelial Cells 3 % Pleural Fluid Total Protein 3.3 GM/DL Pleural Fluid Albumin 1.6 G/DL Pleural Fluid LDH 167 U/L Pleural Fluid Glucose 122 MG/DL White Blood Count 14.5 TH/MM3 Red Blood Count 3.46 MIL/MM3 Hemoglobin 9.2 GM/DL Hematocrit 28.5 % Mean Corpuscular Volume 82.5 FL Mean Corpuscular Hemoglobin 26.7 PG Mean Corpuscular Hemoglobin Concent 32.4 % Red Cell Distribution Width 17.0 % Platelet Count 434 TH/MM3 Mean Platelet Volume 7.5 FL Blood Urea Nitrogen 15 MG/DL Creatinine 0.71 MG/DL Random Glucose 97 MG/DL Calcium Level 9.1 MG/DL Sodium Level 141 MEQ/L Potassium Level 3.8 MEQ/L Chloride Level 105 MEQ/L Carbon Dioxide Level 26.7 MEQ/L Anion Gap 9 MEQ/L Estimat Glomerular Filtration Rate 109 ML/MIN IMAGING: Foot X-Ray 09/07/17 Signed Impressions: Service Date/Time: Thursday, September 07, 2017 09:01 - CONCLUSION: No evidence of focal bony destruction or periosteal reaction. Hector Garcia MD Chest X-Ray 09/07/17 Signed Impressions: Service Date/Time: Thursday, September 07, 2017 16:30 - CONCLUSION: 1. No significant pneumothorax following left-sided thoracentesis. 2. Left lower lobe airspace disease, presumably compressive atelectasis. Marco A Chavez MD Chest X-Ray 09/06/172018 Signed Impressions: Service Date/Time: Wednesday, September 06, 2017 21:16 - CONCLUSION: 1. Positive for left effusion and basilar dependent airspace disease increased from August 31. Right lung relatively clear except for minimal scarring or atelectasis. Richard Tripp MD PHYSICAL EXAMINATION GENERAL: No acute distress. He is awake and alert and oriented. HEENT: The head is atraumatic. Extraocular movements grossly intact. Pupils reactive to light, without icterus. Oropharynx - moist mucosa without lesions. NECK: Supple, without adenopathy. LUNGS: Breath sounds decreased on the left side. HEART: Regular S1-S2, without murmurs. ABDOMEN: Bowel sounds present, soft, nontender. EXTREMITIES: The left foot has a vacuum device in place over the left foot wound at the inner aspect of the foot. There is no visible erythema around the vacuum. SKIN: No rash. NEURO: The patient is alert and oriented. No gross focal findings. PSYCHIATRIC: The patient is calm and cooperative. IMPRESSION 1. Recurrent left effusion. Culture of the fluid has been negative on prior testing. 2. Urinary infection. Gram neg walter. 3. Leukocytosis and low grade fever likely due to urinary tract infection. Urine culture has gram-negative walter. 4. Elevated sed rate and C-reactive protein. The patient has recent cultures. The patient has history of osteomyelitis and has been treated with a full course of IV antibiotics for MRSA. The foot appears stable. RECOMMENDATIONS 1. Continue ertapenem. 2. Monitor the urine culture. 3. Monitor white blood cell count and temperature. 4. Continue Lactinex. 6. Repeat the urine culture tomorrow. 7. Consider pulmonary consultation for recurrent pleural effusion. Due to the patient's problems with IV access, I will also order an IV catheter to be inserted by the vascular team for IV access. If it is felt that he needs more frequent medication administration, then we can consider putting in a midline or a PICC line but I cannot determine that he will need long-term antibiotics at this time. Cullen Long MD Sep 08, 2017 13:30
--- NOTE | 2017-09-08 13:42 | RADRPT ---
EXAM DATE/TIME: 09/07/2017 14:36 [place] COMPARISON: US GUIDED THORACENTESIS LEFT, August 31, 2017, 13:10. INDICATIONS : Left plerual effusion. MEDICAL HISTORY : Dementia. Pancreatitis. Arthritis. CVA. Sleep apnea. Dyspnea. HTN. Renal disease. Renal calculi. COPD . Slipped disk. Spinal stenosis. Arachnoiditis. Graves disease.Anemia. Depression. Gallstones. Antico agulant therapy, Aspirin 81mg & Lovenox. MRSA. C-DIFF. Pleural effusion. SURGICAL HISTORY : Left carotid endarterectomy. Appendectomy. Bilateral cataracts. Abscess back of front tooth removal. Penile implant. Left knee surgery x3. Back surgery x3. Blood tranfusions. Thoracentesis. ENCOUNTER: Subsequent ACUITY: 1 week PAIN SCORE: 8/10 LOCATION: Left chest FLUID: Total volume of 1,450 cc of clear, joy fluid was removed. Fluid was sent to lab for ordered studies. TECHNIQUE: 1. Ultrasound guidance for thoracentesis. 2. Thoracentesis. The risks, benefits, and alternatives to ultrasound guided thoracentesis were explained to the patien t in lay simple terms, including the risk of bleeding and infection. Written and verbal informed con sent was obtained. Appropriate area for thoracentesis was marked under ultrasound guidance with the patient in the uprig ht position. Overlying skin was prepped and draped in the usual sterile fashion and with local anest hetic, a dermatotomy was made with an 11 blade scalpel. A 6 Icelandic thoracentesis catheter was placed in the pleural space and fluid was removed. Catheter was then removed and a sterile dressing applie d. There were no immediate complications. The patient tolerated the procedure well and the left the ultrasound suite in stable condition. Chest radiograph is to be obtained. CONCLUSION: Uncomplicated ultrasound guided thoracentesis. Marco A Chavez MD on September 08, 2017 at 13:40 Board Certified Radiologist. This report was verified electronically.
[2017-09-08] MEDS: ATORVASTATIN 40 MG TAB PO SCH (21:13)
[2017-09-08] MEDS: LISINOPRIL 20 MG TAB PO SCH (21:14)
[2017-09-08] MEDS: DONEPEZIL HCL 5 MG TAB PO SCH (21:14)
[2017-09-08] MEDS: LATANOPROST 0.005% OPHT SOLN 2.5 ML BTL EACH EYE SCH (21:15)
[2017-09-09] VITALS (11 sets, daily range): BP systolic 153–168; BP diastolic 70–78; PULSE 62–83; RESP 16–17; TEMP 97.4–99.3; O2SAT 95–97
[2017-09-09] MEDS: ERTAPENEM INJ 1,000 MG in SODIUM CHLORIDE 0.9% INJ 100 ML IV SCH ×2 (00:19→22:55)
[2017-09-09] MEDS: HEPARIN SODIUM - SQ 10,000 UNITS/ML VIAL SQ SCH ×3 (00:20→22:55)
[2017-09-09] MEDS: oxyCODONE/ACETAMINOPHEN 5 MG/325 MG TAB PO PRN ×3 (02:40→22:55)
[2017-09-09] MEDS: GABAPENTIN 100 MG CAP PO SCH ×3 (05:39→21:20)
[2017-09-09 08:27] LABS: HEMATOCRIT 32.3 % (39.0-51.0); MEAN CORPUSCULAR HEMOGLOBIN 27.3 PG (27.0-34.0); MEAN CORPUSCULAR HGB CONC 33.3 % (32.0-36.0); PLATELET COUNT 459 TH/MM3 (150-450); RED BLOOD COUNT 3.94 MIL/MM3 (4.50-5.90); RED CELL DISTRIBUTION WIDTH 17.1 % (11.6-17.2); REVIEW FLAG FINAL; WHITE BLOOD COUNT 8.8 TH/MM3 (4.0-11.0)
[2017-09-09] MEDS: RESP: ALBUTEROL 2.5 MG/IPRATROPIUM 0.5 MG NEB (SCH) INH ×3 (08:31→19:51)
[2017-09-09 08:48] LABS: BICARBONATE 27.4 MEQ/L (21.0-32.0); POTASSIUM 3.8 MEQ/L (3.5-5.1)
[2017-09-09] MEDS: amLODIPine BESYLATE 5 MG TAB PO SCH ×2 (08:58→21:19)
[2017-09-09] MEDS: FERROUS SULFATE 325 MG (65 MG ELEMENTAL IRON) TAB PO SCH ×2 (08:58→17:05)
[2017-09-09] MEDS: CITALOPRAM HYDROBROMIDE 20 MG TAB PO SCH (08:58)
[2017-09-09] MEDS: ASPIRIN EC 81 MG TABEC PO SCH (08:58)
[2017-09-09] MEDS: LACTOBACILLUS ACIDOPHILUS TAB PO SCH ×3 (08:58→17:05)
[2017-09-09] MEDS: BUDESONIDE-FORMOTEROL 160/4.5 MCG INHALER INH SCH ×2 (08:59→21:00)
[2017-09-09] MEDS: TIOTROPIUM BROMIDE 18 MCG INH INH SCH (08:59)
[2017-09-09] MEDS: DOCUSATE SODIUM 50 MG/SENNA 8.6 MG TAB PO SCH ×2 (08:59→21:00)
[2017-09-09] MEDS: ALBUTEROL SULFATE 90 MCG/ACT HFA 8 GM INHALER INH SCH ×4 (08:59→21:35)
[2017-09-09] MEDS: SODIUM CHLORIDE 0.9% FLUSH 10 ML FLUSH IV FLUSH SCH ×2 (08:59→21:21)
[2017-09-09] MEDS: COLLAGENASE OINT 30 GM TUBE TOPICAL SCH ×2 (08:59→15:12)
--- NOTE | 2017-09-09 10:10 | HHI.FPPN ---
Subjective Remarks Patient doing well this morning. White count trended down to normal. Urine growing klebsiella pneumonia that is jarvis-sensitive. Blood cultures remain negative after 48 hours. Temperature of 100.9 at 20:30 last night. No nausea or vomiting. No diarrhea. No abdominal or flank pain. No more episodes of drowsiness or confusion. Reports he feels back to normal. (Дмитрий Duval MD R3) Objective Vitals Vital Signs Date Time Temp Pulse Resp B/P (MAP) Pulse Ox O2 Delivery O2 Flow Rate FiO2 09/09/17 09:47 73 09/09/17 08:57 Room Air 09/09/17 08:31 97 21 09/09/17 08:00 97.4 76 17 153/70 (97) 97 09/09/17 04:00 98.6 72 16 155/ 96 09/09/17 04:00 Room Air 09/09/17 00:00 99.2 83 16 158/78 (104) 95 09/09/17 00:00 Room Air 09/08/17 20:41 98.9 80 20 119/60 (79) 95 09/08/17 20:39 100.9 84 20 160/70 (100) 96 09/08/17 20:00 Room Air 09/08/17 19:40 95 09/08/17 16:07 99.3 76 17 143/67 (92) 95 09/08/17 12:04 98.4 79 18 145/68 (93) 95 I/O 09/08/17 09/08/17 09/08/17 09/09/17 09/09/17 09/09/17 07:00 15:00 23:00 07:00 15:00 23:00 Intake Total 240 ml 720 ml Output Total 550 ml 750 ml 600 ml Balance -310 ml -30 ml -600 ml Intake Oral 240 ml 720 ml Output Urine Total 550 ml 750 ml 600 ml # Voids 1 # Bowel Movements 2 1 1 (Дмитрий Duval MD R3) Result Diagram: 09/09/1752109/09/17521 Imaging Last 72 hours Impressions Thoracentesis Ultrasound 09/07/17 0000 Signed Impressions: Service Date/Time: Thursday, September 07, 2017 14:36 - CONCLUSION: Uncomplicated ultrasound guided thoracentesis. Marco A Chavez MD Foot X-Ray 09/07/17 0000 Signed Impressions: Service Date/Time: Thursday, September 07, 2017 09:01 - CONCLUSION: No evidence of focal bony destruction or periosteal reaction. Hector Garcia MD Chest X-Ray 09/07/17 Signed Impressions: Service Date/Time: Thursday, September 07, 2017 16:30 - CONCLUSION: 1. No significant pneumothorax following left-sided thoracentesis. 2. Left lower lobe airspace disease, presumably compressive atelectasis. Marco A Chavez MD Chest X-Ray 09/06/172018 Signed Impressions: Service Date/Time: Wednesday, September 06, 2017 21:16 - CONCLUSION: 1. Positive for left effusion and basilar dependent airspace disease increased from August 31. Right lung relatively clear except for minimal scarring or atelectasis. Richard Tripp MD Objective Remarks GENERAL: Sitting up in bed, no distress. Alert, oriented. SKIN: Wound over left foot covered with wound vac. Several stage 2 ulcers present over lateral left foot currently wrapped. Site of pleurocentesis well healed, no drainage, cover removed. HEAD: Atraumatic. Normocephalic. EYES: No injection or drainage. ENT: No nasal discharge. CARDIOVASCULAR: Regular rhythm and rate without murmurs, pulses intact peripherally. RESPIRATORY: CTAB, slightly diminished in left lower lung. No respiratory distress. Not requiring oxygen. GASTROINTESTINAL: Abdomen soft, non-tender, nondistended. Bowel sounds present. MUSCULOSKELETAL: No calf tenderness. NEUROLOGICAL: Awake and alert. Oriented x3. (Дмитрий Duval MD R3) A/P Assessment and Plan 72 y/o male with past medical history significant for recent osteomyelitis and amputation, recent thoracentesis for pleural effusion, COPD, dementia, C. diff presents with drowsiness after being discharged from inpatient rehab last week. Found to have leukocytosis, left pleural effusion, and UTI with klebsiella pneumonia. Discharge Planning Will likely require home health versus rehab. Will need wound vac changes regularly. Will need walking assistance, either walker or wheelchair, to be determined before discharge. (Дмитрий Duval MD R3) Attending Attestation A detailed discussion regarding patients diagnosis was held with Dr Duval,Seen and examined EMR reviewed, Agree with contents of note and dianosis, See Orders. (Abraham Haider MD) Problem List: (1) UTI (urinary tract infection) ICD Codes: N39.0 - Urinary tract infection, site not specified Status: Acute Plan: UA significant for positive nitrites, moderate leukocyte esterase, 11 WBC , many bacteria Urine with dark, strong odor at home. Leukocytosis resolved. Mild fever last night. Clinically much improved. Urine culture positive for klebsiella pneumonia that is jarvis-sensitive. However, he has multiple antibiotic allergies. Blood culture negative after 48 hours. -Infectious disease consulted, started Ertapenem on 09/07 -Coordinate with infectious disease regarding oral antibiotics. (2) Pleural effusion, left ICD Codes: J90 - Pleural effusion, not elsewhere classified Status: Acute Plan: Chest xray shows left effusion and basilar dependent airspace disease increased from August 31. 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 Cultures were negative. Echo on 08/29 shows hyperdynamic left systolic function with EF of 65-70%. Repeat pleurocentesis performed 09/07/17, pH 8.5, WBC 843, RBC 7042, glucose normal, LDH normal. Likely reactive, if continuing to recur, would need further workup for potential malignant source, infectious sources, etc. Cytology during last hospitalization showed likely reactive atypia. -Supplemental O2 PRN -Monitor for recurrence -Further workup if it continues to recur (3) Partial nontraumatic amputation of foot ICD Codes: Z89.439 - Acquired absence of unspecified foot Status: Chronic Plan: History of osteomyelitis and amputation of hallux on left foot. Current wound vac in place. Several pressure ulcers present on left foot as well CRP 18, ESR 95. No signs of infection except for leukocytosis, x-ray of foot showing no obvious osteomyelitis. Treated with long-term IV vancomycin recently for osteomyelitis. Has severe PAD, multiple lower extremity ulcers, had arterial interventions bilaterally last hospital visit. -Follow blood cultures, negative to date -Wound management consult - Change wound VAC to left medial foot M-W-F with wound VAC settings @125mmHg low continuous suction. - Change dressing to left lateral foot wounds daily with Santyl and dry cover. -Gabapentin, Percocet for pain -PT/OT on board, will likely require home health versus rehab at discharge. (4) Hypertension ICD Codes: I10 - Hypertension Status: Chronic Plan: Continue home meds: Norvasc and Lisinopril Clonidine PRN (5) COPD (chronic obstructive pulmonary disease) ICD Codes: J44.9 - Chronic obstructive pulmonary disease Status: Chronic Plan: History of chronic COPD -Continue home Spiriva, Symbicort -Duonebs and Albuterol PRN (6) FEN/PPX Status: Acute Plan: Fluids: Oral Electrolytes: stable, continue to monitor Nutrition: regular diet DVT ppx: Heparin (Дмитрий Duval MD R3) Problem Qualifiers (1) UTI (urinary tract infection): Qualified Codes: N30.00 - Acute cystitis without hematuria (2) Partial nontraumatic amputation of foot: Qualified Codes: Z89.432 - Acquired absence of left foot (3) Hypertension: Qualified Codes: I10 - Essential (primary) hypertension (4) COPD (chronic obstructive pulmonary disease): Qualified Codes: J44.9 - Chronic obstructive pulmonary disease, unspecified Дмитрий Duval MD R3 Sep 09, 2017 10:10 Abraham Haider MD Sep 11, 2017 15:09
[2017-09-09 12:09] LABS: LIPASE BODY FLUID LESS THAN 10 U/L; LIPASE SOURCE PLEURAL
--- NOTE | 2017-09-09 15:20 | HHI.IDPN ---
Note Infectious Disease Note Patient feels okay. No fever. No SOD or diarrhea. Brought to the emergency department because of generalized weakness. Post left thoracentesis. PAST MEDICAL HISTORY 1. hypertension. 3. COPD. 4. Carotid artery disease. 5. History of C-difficile in April 2017. ALLERGIES MRI PRECAUTION. SULFA TRIMETHOPRIM. SULFAMETHOXAZOLE. PENICILLIN G. METRONIDAZOLE. MORPHINE. MEPERIDINE. ERYTHROMYCIN BASE. SURGICAL TAPE. ANTIBIOTICS: Ertapenem. SOCIAL HISTORY The patient is . No tobacco or alcohol or illicit drugs. FAMILY HISTORY Noncontributory. OBJECTIVE: Vital Signs Date Time Temp Pulse Resp B/P (MAP) Pulse Ox O2 Delivery O2 Flow Rate FiO2 09/09/17 12:00 98.7 62 17 158/70 (99) 97 09/09/17 09:47 73 09/09/17 08:57 Room Air 09/09/17 08:31 97 21 09/09/17 08:00 97.4 76 17 153/70 (97) 97 09/09/17 04:00 98.6 72 16 155/ 96 09/09/17 04:00 Room Air 09/09/17 00:00 99.2 83 16 158/78 (104) 95 09/09/17 00:00 Room Air 09/08/17 20:41 98.9 80 20 119/60 (79) 95 09/08/17 20:39 100.9 84 20 160/70 (100) 96 09/08/17 20:00 Room Air 09/08/17 19:40 95 09/08/17 16:07 99.3 76 17 143/67 (92) 95 Laboratory Tests Test 09/08/17 05:50 09/09/17 05:22 White Blood Count 14.5 TH/MM3 8.8 TH/MM3 Red Blood Count 3.46 MIL/MM3 3.94 MIL/MM3 Hemoglobin 9.2 GM/DL 10.8 GM/DL Hematocrit 28.5 % 32.3 % Mean Corpuscular Volume 82.5 FL 82.0 FL Mean Corpuscular Hemoglobin 26.7 PG 27.3 PG Mean Corpuscular Hemoglobin Concent 32.4 % 33.3 % Red Cell Distribution Width 17.0 % 17.1 % Platelet Count 434 TH/MM3 459 TH/MM3 Mean Platelet Volume 7.5 FL 7.9 FL Laboratory Tests Test 09/08/17 05:50 09/09/17 05:22 Blood Urea Nitrogen 15 MG/DL 16 MG/DL Creatinine 0.71 MG/DL 0.65 MG/DL Random Glucose 97 MG/DL 111 MG/DL Calcium Level 9.1 MG/DL 9.2 MG/DL Sodium Level 141 MEQ/L 140 MEQ/L Potassium Level 3.8 MEQ/L 3.8 MEQ/L Chloride Level 105 MEQ/L 103 MEQ/L Carbon Dioxide Level 26.7 MEQ/L 27.4 MEQ/L Anion Gap 9 MEQ/L 10 MEQ/L Estimat Glomerular Filtration Rate 109 ML/MIN 120 ML/MIN Microbiology Date/Time Source Procedure Growth Status 09/06/17 22:00 Blood Peripheral Aerobic Blood Culture - Preliminary NO GROWTH IN 3 DAYS Resulted 09/06/17 22:00 Blood Peripheral Anaerobic Blood Culture - Preliminary NO GROWTH IN 3 DAYS Resulted 09/06/17 21:50 Blood Peripheral Aerobic Blood Culture - Preliminary NO GROWTH IN 3 DAYS Resulted 09/06/17 21:50 Blood Peripheral Anaerobic Blood Culture - Preliminary NO GROWTH IN 3 DAYS Resulted 09/06/17 20:35 Urine Random Urine Urine Culture - Final Klebsiella Pneumoniae Complete IMAGING: Foot X-Ray 09/07/17 0000 Signed Impressions: Service Date/Time: Thursday, September 07, 2017 09:01 - CONCLUSION: No evidence of focal bony destruction or periosteal reaction. Hector Garcia MD Chest X-Ray 09/07/17 0000 Signed Impressions: Service Date/Time: Thursday, September 07, 2017 16:30 - CONCLUSION: 1. No significant pneumothorax following left-sided thoracentesis. 2. Left lower lobe airspace disease, presumably compressive atelectasis. Marco A Chavez MD Chest X-Ray 09/06/17 2019 Signed Impressions: Service Date/Time: Wednesday, September 06, 2017 21:16 - CONCLUSION: 1. Positive for left effusion and basilar dependent airspace disease increased from August 31. Right lung relatively clear except for minimal scarring or atelectasis. Richard Tripp MD PHYSICAL EXAMINATION GENERAL: No acute distress. He is awake and alert and oriented. HEENT: The head is atraumatic. Extraocular movements grossly intact. Pupils reactive to light, without icterus. Oropharynx - moist mucosa without lesions. NECK: Supple, without adenopathy. LUNGS: Good air movements, breath sounds decreased on the left side. HEART: Regular S1-S2, without murmurs. ABDOMEN: Bowel sounds present, soft, nontender. EXTREMITIES: The left foot has a vacuum device in place over the left foot wound at the inner aspect of the foot. No erythema. SKIN: No rash. NEURO: The patient is alert and oriented. No gross focal findings. PSYCHIATRIC: The patient is calm and cooperative. IMPRESSION 1. Recurrent left effusion. Culture of the fluid has been negative on prior testing. 2. Urinary infection. klebsiella. Multiple antibiotic allergies. 3. Leukocytosis and low grade fever likely due to urinary tract infection. improved. 4. Elevated sed rate and C-reactive protein. The patient has recent cultures. The patient has history of osteomyelitis and has been treated with a full course of IV antibiotics for MRSA. The foot appears stable. RECOMMENDATIONS 1. Continue ertapenem. 2. Monitor the new urine culture. Stop antibiotic if urine culture is negative. 3. Monitor temperature. 4. Continue Lactinex. Cullen Long MD Sep 09, 2017 15:20
[2017-09-09] MEDS: ATORVASTATIN 40 MG TAB PO SCH (21:19)
[2017-09-09] MEDS: DONEPEZIL HCL 5 MG TAB PO SCH (21:20)
[2017-09-09] MEDS: LISINOPRIL 20 MG TAB PO SCH (21:21)
[2017-09-09] MEDS: LATANOPROST 0.005% OPHT SOLN 2.5 ML BTL EACH EYE SCH (21:35)
[2017-09-10] VITALS (9 sets, daily range): BP systolic 131–178; BP diastolic 64–85; PULSE 73–97; RESP 16–20; TEMP 97.8–98.2; O2SAT 96–98
[2017-09-10] MEDS: oxyCODONE/ACETAMINOPHEN 5 MG/325 MG TAB PO PRN ×3 (06:11→18:32)
[2017-09-10] MEDS: GABAPENTIN 100 MG CAP PO SCH (06:11)
[2017-09-10] MEDS: ASPIRIN EC 81 MG TABEC PO SCH (08:24)
[2017-09-10] MEDS: BUDESONIDE-FORMOTEROL 160/4.5 MCG INHALER INH SCH ×2 (08:24→19:58)
[2017-09-10] MEDS: ALBUTEROL SULFATE 90 MCG/ACT HFA 8 GM INHALER INH SCH ×4 (08:24→19:57)
[2017-09-10] MEDS: FERROUS SULFATE 325 MG (65 MG ELEMENTAL IRON) TAB PO SCH ×2 (08:24→18:31)
[2017-09-10] MEDS: LACTOBACILLUS ACIDOPHILUS TAB PO SCH ×3 (08:24→18:30)
[2017-09-10] MEDS: amLODIPine BESYLATE 5 MG TAB PO SCH ×2 (08:24→20:10)
[2017-09-10] MEDS: SODIUM CHLORIDE 0.9% FLUSH 10 ML FLUSH IV FLUSH SCH ×2 (08:24→20:11)
[2017-09-10] MEDS: DOCUSATE SODIUM 50 MG/SENNA 8.6 MG TAB PO SCH ×2 (08:24→19:49)
[2017-09-10] MEDS: TIOTROPIUM BROMIDE 18 MCG INH INH SCH (08:24)
[2017-09-10] MEDS: CITALOPRAM HYDROBROMIDE 20 MG TAB PO SCH (08:24)
[2017-09-10] MEDS: COLLAGENASE OINT 30 GM TUBE TOPICAL SCH (08:25)
[2017-09-10 08:30] LABS: HEMATOCRIT 30.8 % (39.0-51.0); MEAN CELL VOLUME 81.7 FL (80.0-100.0); MEAN CORPUSCULAR HGB CONC 33.1 % (32.0-36.0); PLATELET COUNT 496 TH/MM3 (150-450); RED BLOOD COUNT 3.77 MIL/MM3 (4.50-5.90); RED CELL DISTRIBUTION WIDTH 16.8 % (11.6-17.2); REVIEW FLAG FINAL; WHITE BLOOD COUNT 8.3 TH/MM3 (4.0-11.0)
[2017-09-10] MEDS: RESP: ALBUTEROL 2.5 MG/IPRATROPIUM 0.5 MG NEB (SCH) INH ×3 (08:34→20:20)
[2017-09-10 09:05] LABS: BICARBONATE 26.9 MEQ/L (21.0-32.0); POTASSIUM 3.8 MEQ/L (3.5-5.1)
--- NOTE | 2017-09-10 11:25 | HHI.FPPN ---
Subjective Remarks No fevers overnight. White count now normal. Patient with no complaints. No chest pain or shortness of breath. No abdominal pain, nausea, or diarrhea. Foot is stable, wound vac changes on MWF. No flank pain or burning with urination. (Дмитрий Duval MD R3) Objective Vitals Vital Signs Date Time Temp Pulse Resp B/P (MAP) Pulse Ox O2 Delivery O2 Flow Rate FiO2 09/10/17 09:17 81 09/10/17 08:38 96 21 09/10/17 08:20 Room Air 09/10/17 08:00 97.8 83 20 178/85 (116) 97 09/10/17 04:00 97.9 97 18 150/77 (101) 97 09/10/17 00:47 98.1 73 18 145/72 (96) 96 09/09/17 23:04 Room Air 09/09/17 20:15 79 09/09/17 20:05 98.8 72 17 168/75 (106) 96 09/09/17 19:53 96 09/09/17 16:30 99.3 82 17 160/73 (102) 96 09/09/17 16:00 98.3 72 17 165/77 (106) 96 09/09/17 12:00 98.7 62 17 158/70 (99) 97 I/O 09/09/17 09/09/17 09/09/17 09/10/17 09/10/17 09/10/17 07:00 15:00 23:00 07:00 15:00 23:00 Intake Total 960 ml 220 ml Output Total 600 ml 1400 ml 1225 ml Balance -600 ml -440 ml -1005 ml Intake Oral 960 ml 120 ml IV Total 100 ml Output Urine Total 600 ml 1400 ml 1225 ml # Bowel Movements 1 4 (Дмитрий Duval MD R3) Result Diagram: 09/10/1772409/10/17724 Objective Remarks GENERAL: Sitting up in bed, no distress. SKIN: Wound over left foot covered with wound vac. Several stage 2 ulcers present over lateral left foot currently wrapped. HEAD: Atraumatic. Normocephalic. EYES: No injection or drainage. ENT: No nasal discharge. CARDIOVASCULAR: Regular rhythm and rate without murmurs, pulses intact peripherally. RESPIRATORY: CTAB, slightly diminished in left lower lung, unchanged. No respiratory distress. Not requiring oxygen. GASTROINTESTINAL: Abdomen soft, non-tender, nondistended. Bowel sounds present. MUSCULOSKELETAL: No calf tenderness. NEUROLOGICAL: Awake and alert. Oriented x3. (Дмитрий Duval MD R3) A/P Assessment and Plan 72 y/o male with past medical history significant for recent osteomyelitis and amputation, recent thoracentesis for pleural effusion, COPD, dementia, C. diff presents with drowsiness after being discharged from inpatient rehab last week. Found to have leukocytosis, left pleural effusion, and UTI with klebsiella pneumonia. Discharge Planning Will likely require home health versus rehab. Will need wound vac changes regularly. Will need walking assistance, either walker or wheelchair, to be determined before discharge. (Дмитрий Duval MD R3) Attending Attestation A detailed discussion regarding patients diagnosis was held with Dr Duval, EMR reviewed,Seen and examined Agree with contents of note and dianosis, See Orders.Patient feels stronger. (Abraham Haider MD) Problem List: (1) UTI (urinary tract infection) ICD Codes: N39.0 - Urinary tract infection, site not specified Status: Acute Plan: UA significant for positive nitrites, moderate leukocyte esterase, 11 WBC , many bacteria Urine with dark, strong odor at home. Leukocytosis resolved, now afebrile. Urine culture positive for klebsiella pneumonia that is jarvis-sensitive. However, he has multiple antibiotic allergies. Blood culture negative -Infectious disease consulted, started Ertapenem on 09/07 -Repeat urine culture, if negative, can stop antibiotics -He has recorded allergies to multiple antibiotics, making choice of oral antibiotic technically difficult. In addition, he has a history of repeated severe bouts of c.diff. Therefore, he will derive the most benefit with the least harm by continuing IV antibiotics until his urine culture shows eradication of the infection, along with continued monitoring in the hospital. Appreciate recommendations by infectious disease. (2) Pleural effusion, left ICD Codes: J90 - Pleural effusion, not elsewhere classified Status: Acute Plan: Chest xray shows left effusion and basilar dependent airspace disease increased from August 31. 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 Cultures were negative. Echo on 08/29 shows hyperdynamic left systolic function with EF of 65-70%. Repeat pleurocentesis performed 09/07/17, pH 8.5, WBC 843, RBC 7042, glucose normal, LDH normal. Likely reactive, if continuing to recur, would need further workup for potential malignant source, infectious sources, etc. Cytology during last hospitalization showed likely reactive atypia. -Supplemental O2 PRN -Monitor for recurrence -Further workup if it continues to recur (3) Partial nontraumatic amputation of foot ICD Codes: Z89.439 - Acquired absence of unspecified foot Status: Chronic Plan: History of osteomyelitis and amputation of hallux on left foot. Current wound vac in place. Several pressure ulcers present on left foot as well CRP 18, ESR 95. No signs of infection except for leukocytosis, x-ray of foot showing no obvious osteomyelitis. Treated with long-term IV vancomycin recently for osteomyelitis. Has severe PAD, multiple lower extremity ulcers, had arterial interventions bilaterally last hospital visit. -Blood culture negative -Wound management consult - Change wound VAC to left medial foot M-W-F with wound VAC settings @125mmHg low continuous suction. - Change dressing to left lateral foot wounds daily with Santyl and dry cover. -Gabapentin (increased to 300 tid for neuropathic pains), Percocet for pain -PT/OT on board, will likely require home health versus rehab at discharge. (4) Hypertension ICD Codes: I10 - Hypertension Status: Chronic Plan: Continue home meds: Norvasc and Lisinopril Clonidine PRN (5) COPD (chronic obstructive pulmonary disease) ICD Codes: J44.9 - Chronic obstructive pulmonary disease Status: Chronic Plan: History of chronic COPD -Continue home Spiriva, Symbicort -Duonebs and Albuterol PRN (6) FEN/PPX Status: Acute Plan: Fluids: Oral Electrolytes: stable, continue to monitor Nutrition: regular diet DVT ppx: Heparin (Дмитрий Duval MD R3) Problem Qualifiers (1) UTI (urinary tract infection): Qualified Codes: N30.00 - Acute cystitis without hematuria (2) Partial nontraumatic amputation of foot: Qualified Codes: Z89.432 - Acquired absence of left foot (3) Hypertension: Qualified Codes: I10 - Essential (primary) hypertension (4) COPD (chronic obstructive pulmonary disease): Qualified Codes: J44.9 - Chronic obstructive pulmonary disease, unspecified Дмитрий Duval MD R3 Sep 10, 2017 11:25 Abraham Haider MD Sep 11, 2017 15:12
[2017-09-10] MEDS: HEPARIN SODIUM - SQ 10,000 UNITS/ML VIAL SQ SCH (12:08)
[2017-09-10] MEDS: GABAPENTIN 300 MG CAP PO SCH ×2 (12:08→18:31)
[2017-09-10] MEDS: LATANOPROST 0.005% OPHT SOLN 2.5 ML BTL EACH EYE SCH (19:58)
[2017-09-10] MEDS: LISINOPRIL 20 MG TAB PO SCH (20:10)
[2017-09-10] MEDS: DONEPEZIL HCL 5 MG TAB PO SCH (20:10)
[2017-09-10] MEDS: ATORVASTATIN 40 MG TAB PO SCH (20:10)
[2017-09-11] VITALS (8 sets, daily range): BP systolic 133–161; BP diastolic 61–70; PULSE 72–83; RESP 16–20; TEMP 97.9–98.7; O2SAT 97
[2017-09-11] MEDS: oxyCODONE/ACETAMINOPHEN 5 MG/325 MG TAB PO PRN ×3 (00:12→17:46)
[2017-09-11] MEDS: ERTAPENEM INJ 1,000 MG in SODIUM CHLORIDE 0.9% INJ 100 ML IV SCH ×2 (00:13→21:27)
[2017-09-11] MEDS: HEPARIN SODIUM - SQ 10,000 UNITS/ML VIAL SQ SCH ×2 (00:17→12:00)
[2017-09-11] MEDS: RESP: ALBUTEROL 2.5 MG/IPRATROPIUM 0.5 MG NEB (SCH) INH (07:41)
[2017-09-11 08:30] LABS: HEMATOCRIT 31.5 % (39.0-51.0); MEAN CELL VOLUME 80.7 FL (80.0-100.0); MEAN CORPUSCULAR HEMOGLOBIN 26.3 PG (27.0-34.0); MEAN CORPUSCULAR HGB CONC 32.5 % (32.0-36.0); PLATELET COUNT 533 TH/MM3 (150-450); RED BLOOD COUNT 3.91 MIL/MM3 (4.50-5.90); RED CELL DISTRIBUTION WIDTH 17.2 % (11.6-17.2); REVIEW FLAG FINAL; WHITE BLOOD COUNT 8.6 TH/MM3 (4.0-11.0)
[2017-09-11 08:53] LABS: BICARBONATE 26.7 MEQ/L (21.0-32.0); POTASSIUM 3.9 MEQ/L (3.5-5.1)
[2017-09-11] MEDS: DOCUSATE SODIUM 50 MG/SENNA 8.6 MG TAB PO SCH ×3 (09:00→21:42)
[2017-09-11] MEDS: BUDESONIDE-FORMOTEROL 160/4.5 MCG INHALER INH SCH ×2 (09:00→21:00)
[2017-09-11] MEDS: FERROUS SULFATE 325 MG (65 MG ELEMENTAL IRON) TAB PO SCH ×2 (09:18→17:46)
[2017-09-11] MEDS: CITALOPRAM HYDROBROMIDE 20 MG TAB PO SCH (09:19)
[2017-09-11] MEDS: LACTOBACILLUS ACIDOPHILUS TAB PO SCH ×3 (09:19→17:45)
[2017-09-11] MEDS: ASPIRIN EC 81 MG TABEC PO SCH (09:19)
[2017-09-11] MEDS: amLODIPine BESYLATE 5 MG TAB PO SCH ×2 (09:20→21:42)
[2017-09-11] MEDS: GABAPENTIN 300 MG CAP PO SCH ×3 (09:20→17:45)
[2017-09-11] MEDS: TIOTROPIUM BROMIDE 18 MCG INH INH SCH (09:21)
[2017-09-11] MEDS: ALBUTEROL SULFATE 90 MCG/ACT HFA 8 GM INHALER INH SCH ×4 (09:21→21:25)
[2017-09-11] MEDS: COLLAGENASE OINT 30 GM TUBE TOPICAL SCH (09:24)
[2017-09-11] MEDS: SODIUM CHLORIDE 0.9% FLUSH 10 ML FLUSH IV FLUSH SCH ×2 (09:25→21:40)
--- NOTE | 2017-09-11 10:48 | HHI.FPPN ---
Subjective Remarks Sitting up in bed, no distress. Reports no pain. No chest pain or shortness of breath. No pleuritic pain. No abdominal pain, nausea, vomiting, diarrhea. Has a good appetite. Eager to get home, awaiting urine culture results. (Дмитрий Duval MD R3) Objective Vitals Vital Signs Date Time Temp Pulse Resp B/P (MAP) Pulse Ox O2 Delivery O2 Flow Rate FiO2 09/11/17 09:37 Room Air 09/11/17 08:00 98.5 81 18 138/62 (87) 97 09/11/17 07:42 97 21 09/11/17 06:09 97.9 77 20 161/70 (100) 97 09/11/17 00:00 98.1 75 20 140/68 (92) 97 09/10/17 20:24 Room Air 09/10/17 20:22 98 09/10/17 20:00 83 09/10/17 20:00 98.1 74 16 131/65 (87) 97 09/10/17 16:00 98.2 81 20 134/64 (87) 97 09/10/17 12:00 98.0 77 20 138/65 (89) 97 I/O 09/10/17 09/10/17 09/10/17 09/11/17 09/11/17 09/11/17 07:00 15:00 23:00 07:00 15:00 23:00 Intake Total 220 ml 760 ml 190 ml Output Total 1225 ml 750 ml 350 ml Balance -1005 ml 10 ml -160 ml Intake Oral 120 ml 760 ml 90 ml IV Total 100 ml 100 ml Output Urine Total 1225 ml 750 ml 350 ml # Bowel Movements 1 1 (Дмитрий Duval MD R3) Result Diagram: 09/11/1754 09/11/17 06 Objective Remarks GENERAL: Sitting up in bed, no distress. SKIN: Wound over left foot covered with wound vac. Several stage 2 ulcers present over lateral left foot currently wrapped. HEAD: Atraumatic. Normocephalic. EYES: No injection or drainage. ENT: No nasal discharge. CARDIOVASCULAR: Regular rhythm and rate without murmurs, pulses intact peripherally. RESPIRATORY: CTAB, slightly diminished in left lower lung, unchanged. GASTROINTESTINAL: Abdomen soft, non-tender, nondistended. Bowel sounds present. MUSCULOSKELETAL: No calf tenderness. NEUROLOGICAL: Awake and alert. Oriented x3. (Дмитрий Duval MD R3) A/P Assessment and Plan 72 y/o male with past medical history significant for recent osteomyelitis and amputation, recent thoracentesis for pleural effusion, COPD, dementia, C. diff presents with drowsiness after being discharged from inpatient rehab last week. Found to have leukocytosis, left pleural effusion, and UTI with klebsiella pneumonia. Discharge Planning Will likely require home health versus rehab. Will need wound vac changes regularly. Will need walking assistance, either walker or wheelchair, to be determined before discharge. (Дмитрий Duval MD R3) Attending Attestation A detailed discussion regarding patients diagnosis was held with Dr Duval,Seen and examied EMR reviewed, Agree with contents of note and dianosis, See Orders. (Abraham Haider MD) Problem List: (1) UTI (urinary tract infection) ICD Codes: N39.0 - Urinary tract infection, site not specified Status: Acute Plan: UA significant for positive nitrites, moderate leukocyte esterase, 11 WBC , many bacteria Urine with dark, strong odor at home. Leukocytosis resolved, now afebrile. Urine culture positive for klebsiella pneumonia that is jarvis-sensitive. However, he has multiple antibiotic allergies. Blood culture negative Awaiting results of repeat urine culture. -Infectious disease consulted, started Ertapenem on 09/07 -Repeat urine culture pending, if negative, can stop antibiotics -He has recorded allergies to multiple antibiotics, making choice of oral antibiotic technically difficult. In addition, he has a history of repeated severe bouts of c.diff. Therefore, he will derive the most benefit with the least harm by continuing IV antibiotics until his urine culture shows eradication of the infection, along with continued monitoring in the hospital. Appreciate recommendations by infectious disease. (2) Pleural effusion, left ICD Codes: J90 - Pleural effusion, not elsewhere classified Status: Acute Plan: Chest xray shows left effusion and basilar dependent airspace disease increased from August 31. Pleural fluid studies from thoracentesis on 08/31 client care representative of exudative effusion. Cultures were negative. Echo on 08/29 shows hyperdynamic left systolic function with EF of 65-70%. Repeat pleurocentesis performed 09/07/17, pH 8.5, WBC 843, RBC 7042, glucose normal, LDH normal. Likely reactive, if continuing to recur, would need further workup for potential malignant source, infectious sources, etc. Cytology during last hospitalization showed likely reactive atypia. -Supplemental O2 PRN -Monitor for recurrence, repeat chest x-ray today -Further workup if it continues to recur (3) Partial nontraumatic amputation of foot ICD Codes: Z89.439 - Acquired absence of unspecified foot Status: Chronic Plan: History of osteomyelitis and amputation of hallux on left foot. Current wound vac in place. Several pressure ulcers present on left foot as well CRP 18, ESR 95. No signs of infection except for leukocytosis, x-ray of foot showing no obvious osteomyelitis. Treated with long-term IV vancomycin recently for osteomyelitis. Has severe PAD, multiple lower extremity ulcers, had arterial interventions bilaterally last hospital visit. -Blood culture negative -Wound management consult - Change wound VAC to left medial foot M-W-F with wound VAC settings @125mmHg low continuous suction. - Change dressing to left lateral foot wounds daily with Santyl and dry cover. -Gabapentin (increased to 300 tid for neuropathic pains), Percocet for pain -PT/OT on board, will likely require home health with PT at discharge. (4) Hypertension ICD Codes: I10 - Hypertension Status: Chronic Plan: Continue home meds: Norvasc and Lisinopril Clonidine PRN (5) COPD (chronic obstructive pulmonary disease) ICD Codes: J44.9 - Chronic obstructive pulmonary disease Status: Chronic Plan: History of chronic COPD -Continue home Spiriva, Symbicort -Duonebs and Albuterol PRN (6) FEN/PPX Status: Acute Plan: Fluids: Oral Electrolytes: stable, continue to monitor Nutrition: regular diet DVT ppx: Heparin (Дмитрий Duval MD R3) Problem Qualifiers (1) UTI (urinary tract infection): Qualified Codes: N30.00 - Acute cystitis without hematuria (2) Partial nontraumatic amputation of foot: Qualified Codes: Z89.432 - Acquired absence of left foot (3) Hypertension: Qualified Codes: I10 - Essential (primary) hypertension (4) COPD (chronic obstructive pulmonary disease): Qualified Codes: J44.9 - Chronic obstructive pulmonary disease, unspecified Дмитрий Duval MD R3 Sep 11, 2017 10:48 Abraham Haider MD Sep 11, 2017 15:26
--- NOTE | 2017-09-11 11:09 | RADRPT ---
EXAM DATE/TIME: 09/11/2017 11:13 [facility] COMPARISON: CHEST SINGLE AP, September 06, 2017, 21:16. INDICATIONS : Short of breath, evaluate pleural effusion on left side MEDICAL HISTORY : Pancreatitis. CVA, pleural effusion, wound right foot SURGICAL HISTORY : Carotid endarterectomy. Appendectomy. ENCOUNTER: [facility] ACUITY: 1 week PAIN SCORE: 0/10 LOCATION: Bilateral chest FINDINGS: There is persisting consolidation left lower lung with loss of delineation of the left hemidiaphragm. The right lung is clear. The heart is upper limits normal size. CONCLUSION: Persistent left lower lung consolidation. Hector Garcia MD on September 11, 2017 at 11:07 Board Certified Radiologist. This report was verified electronically.
--- NOTE | 2017-09-11 12:29 | HHI.IDPN ---
Note Infectious Disease Note Patient feels okay. No fever. No SOB or diarrhea. Repeat urine culture has immature growth. Brought to the emergency department because of generalized weakness. Post left thoracentesis for recurrent pleural effusion. PAST MEDICAL HISTORY 1. hypertension. 3. COPD. 4. Carotid artery disease. 5. History of C-difficile in April 2017. ALLERGIES MRI PRECAUTION. SULFA TRIMETHOPRIM. SULFAMETHOXAZOLE. PENICILLIN G. METRONIDAZOLE. MORPHINE. MEPERIDINE. ERYTHROMYCIN BASE. SURGICAL TAPE. ANTIBIOTICS: Ertapenem. OBJECTIVE: Vital Signs Date Time Temp Pulse Resp B/P (MAP) Pulse Ox O2 Delivery O2 Flow Rate FiO2 09/11/17 11:31 98.0 83 18 133/61 (85) 97 09/11/17 09:37 Room Air 09/11/17 08:00 98.5 81 18 138/62 (87) 97 09/11/17 07:42 161/70 (100) 97 09/11/17 00:00 98.1 75 20 140/68 (92) 97 09/10/17 20:24 Room Air 09/10/17 20:22 98 09/10/17 20:00 83 09/10/17 20:00 98.1 74 16 131/65 (87) 97 09/10/17 16:00 98.2 81 20 134/64 (87) 97 Laboratory Tests Test 09/10/17 07:25 09/11/17 06:54 White Blood Count 8.3 TH/MM3 8.6 TH/MM3 Red Blood Count 3.77 MIL/MM3 3.91 MIL/MM3 Hemoglobin 10.2 GM/DL 10.3 GM/DL Hematocrit 30.8 % 31.5 % Mean Corpuscular Volume 81.7 FL 80.7 FL Mean Corpuscular Hemoglobin 27.0 PG 26.3 PG Mean Corpuscular Hemoglobin Concent 33.1 % 32.5 % Red Cell Distribution Width 16.8 % 17.2 % Platelet Count 496 TH/MM3 533 TH/MM3 Mean Platelet Volume 7.4 FL 7.3 FL Laboratory Tests Test 09/10/17 07:25 09/11/17 06:54 Blood Urea Nitrogen 15 MG/DL 19 MG/DL Creatinine 0.67 MG/DL 0.77 MG/DL Random Glucose 111 MG/DL 108 MG/DL Calcium Level 9.5 MG/DL 9.3 MG/DL Sodium Level 138 MEQ/L 140 MEQ/L Potassium Level 3.8 MEQ/L 3.9 MEQ/L Chloride Level 104 MEQ/L 106 MEQ/L Carbon Dioxide Level 26.9 MEQ/L 26.7 MEQ/L Anion Gap 7 MEQ/L 7 MEQ/L Estimat Glomerular Filtration Rate 116 ML/MIN 99 ML/MIN Microbiology Date/Time Source Procedure Growth Status 09/10/17 08:15 Urine Clean Catch Urine Culture - Preliminary IMMATURE GROWTH - REINCUBATE Resulted IMAGING: Chest X-Ray 09/11/17 Signed Impressions: Service Date/Time: Monday, September 11, 2017 11:13 - CONCLUSION: Persistent left lower lung consolidation. Hector Garcia MD Foot X-Ray 09/07/17 Signed Impressions: Service Date/Time: Thursday, September 07, 2017 09:01 - CONCLUSION: No evidence of focal bony destruction or periosteal reaction. Hector Garcia MD Chest X-Ray 09/07/17 Signed Impressions: Service Date/Time: Thursday, September 07, 2017 16:30 - CONCLUSION: 1. No significant pneumothorax following left-sided thoracentesis. 2. Left lower lobe airspace disease, presumably compressive atelectasis. Marco A Chavez MD Chest X-Ray 09/06/172018 Signed Impressions: Service Date/Time: Wednesday, September 06, 2017 21:16 - CONCLUSION: 1. Positive for left effusion and basilar dependent airspace disease increased from August 31. Right lung relatively clear except for minimal scarring or atelectasis. Richard Tripp MD PHYSICAL EXAMINATION GENERAL: No acute distress. He is awake and alert and oriented. HEENT: The head is atraumatic. Extraocular movements grossly intact. Pupils reactive to light, without icterus. Oropharynx - moist mucosa without lesions. NECK: Supple, without adenopathy. LUNGS: Good air movements, breath sounds decreased on the left side. HEART: Regular S1-S2, without murmurs. ABDOMEN: Bowel sounds present, soft, nontender. EXTREMITIES: The left foot has a vacuum device in place over the left foot wound at the inner aspect of the foot. No erythema. SKIN: No rash. NEURO: The patient is alert and oriented. No gross focal findings. PSYCHIATRIC: The patient is calm and cooperative. IMPRESSION 1. Recurrent left effusion. Culture of the fluid has been negative on prior testing. 2. Urinary infection. klebsiella. Multiple antibiotic allergies. 3. Leukocytosis and low grade fever likely due to urinary tract infection. improved. 4. Elevated sed rate and C-reactive protein. The patient has history of osteomyelitis and has been treated with a full course of IV antibiotics for MRSA. The foot appears stable. 5. CXR read as persistent pulmonary consolidation but no clinical evidence of pneumonia. RECOMMENDATIONS 1. Continue ertapenem. 2. Monitor the urine culture. 3. Continue Lactinex. 4. Consider pulmonary consult. Cullen Long MD Sep 11, 2017 12:29
[2017-09-11] MEDS: LATANOPROST 0.005% OPHT SOLN 2.5 ML BTL EACH EYE SCH (21:26)
[2017-09-11] MEDS: ATORVASTATIN 40 MG TAB PO SCH (21:38)
[2017-09-11] MEDS: DONEPEZIL HCL 5 MG TAB PO SCH (21:41)
[2017-09-11] MEDS: LISINOPRIL 20 MG TAB PO SCH (21:42)
[2017-09-12] VITALS: BP 157/65; PULSE 79; RESP 16; TEMP 98.3; O2SAT 96
[2017-09-12] MEDS: oxyCODONE/ACETAMINOPHEN 5 MG/325 MG TAB PO PRN ×2 (00:11→11:57)
[2017-09-12] MEDS: HEPARIN SODIUM - SQ 10,000 UNITS/ML VIAL SQ SCH ×2 (00:12→11:57)
[2017-09-12 04:00] VITALS: BP 133/70; PULSE 82; RESP 20; TEMP 98; O2SAT 94
[2017-09-12 08:00] VITALS: PULSE 74
[2017-09-12 08:04] VITALS: BP 145/66; PULSE 74; RESP 17; TEMP 98; O2SAT 96
[2017-09-12 08:39] LABS: HEMATOCRIT 31.3 % (39.0-51.0); MEAN CELL VOLUME 81.7 FL (80.0-100.0); MEAN CORPUSCULAR HEMOGLOBIN 26.9 PG (27.0-34.0); MEAN CORPUSCULAR HGB CONC 32.9 % (32.0-36.0); PLATELET COUNT 530 TH/MM3 (150-450); RED BLOOD COUNT 3.83 MIL/MM3 (4.50-5.90); RED CELL DISTRIBUTION WIDTH 16.7 % (11.6-17.2); REVIEW FLAG FINAL; WHITE BLOOD COUNT 10.7 TH/MM3 (4.0-11.0)
--- NOTE | 2017-09-12 08:47 | HHI.FPPN ---
Subjective Remarks No acute issues overnight. Vitals are stable, patient remains afebrile. He denies any chest pain, shortness of breath, fever, chills, abdominal pain, nausea or vomiting. He is concerned about the possibility that his pleural effusion could recur. He also wants to make sure his infection is cleared before he is discharged home. He feels comfortable going home. Objective Vitals Vital Signs Date Time Temp Pulse Resp B/P (MAP) Pulse Ox O2 Delivery O2 Flow Rate FiO2 09/12/17 04:00 98.0 82 20 133/70 (91) 94 09/12/17 00:00 98.3 79 16 157/65 (95) 96 09/12/17 00:00 Nasal Cannula 2.00 09/11/17 20:15 Room Air 21 09/11/17 20:00 83 09/11/17 20:00 98.2 78 16 156/70 (98) 97 09/11/17 17:46 97 21 09/11/17 16:00 98.7 72 18 159/70 (99) 97 09/11/17 11:31 98.0 83 18 133/61 (85) 97 09/11/17 09:37 Room Air I/O 09/11/17 09/11/17 09/11/17 09/12/17 09/12/17 09/12/17 07:00 15:00 23:00 07:00 15:00 23:00 Intake Total 190 ml 720 ml 480 ml Output Total 350 ml 751 ml 650 ml Balance -160 ml -31 ml -170 ml Intake Oral 90 ml 720 ml 480 ml IV Total 100 ml Output Urine Total 350 ml 750 ml 650 ml Stool Total 1 ml # Bowel Movements 1 1 Result Diagram: 09/11/17 0654 09/11/17 0654 Imaging Last Impressions Chest X-Ray 09/11/17 0000 Signed Impressions: Service Date/Time: Monday, September 11, 2017 11:13 - CONCLUSION: Persistent left lower lung consolidation. Hector Garcia MD Thoracentesis Ultrasound 09/07/17 0000 Signed Impressions: Service Date/Time: Thursday, September 07, 2017 14:36 - CONCLUSION: Uncomplicated ultrasound guided thoracentesis. Marco A Chavez MD Foot X-Ray 09/07/17 0000 Signed Impressions: Service Date/Time: Thursday, September 07, 2017 09:01 - CONCLUSION: No evidence of focal bony destruction or periosteal reaction. Hector Garcia MD Objective Remarks GENERAL: laying in bed, no distress. SKIN: Wound over left foot covered with wound vac. Several stage 2 ulcers present over lateral left foot currently wrapped. HEAD: Atraumatic. Normocephalic. EYES: No injection or drainage. ENT: No nasal discharge. CARDIOVASCULAR: Regular rhythm and rate without murmurs, pulses intact peripherally. RESPIRATORY: CTAB, slightly diminished in left lower lung, unchanged. GASTROINTESTINAL: Abdomen soft, non-tender, nondistended. Bowel sounds present. MUSCULOSKELETAL: No calf tenderness. NEUROLOGICAL: Awake and alert. Oriented x3. A/P Assessment and Plan 72 y/o male with past medical history significant for recent osteomyelitis and amputation, recent thoracentesis for pleural effusion, COPD, dementia, C. diff who presented with drowsiness after being discharged from inpatient rehab last week. Found to have leukocytosis, left pleural effusion, and UTI with klebsiella pneumonia. Discharge Planning Discharge home with home health today or tomorrow. Will need wound vac changes regularly. Will need walking assistance, either walker or wheelchair, to be determined before discharge. Problem List: (1) UTI (urinary tract infection) ICD Codes: N39.0 - Urinary tract infection, site not specified Status: Resolved Plan: UA significant for positive nitrites, moderate leukocyte esterase, 11 WBC , many bacteria Urine with dark, strong odor at home. Leukocytosis resolved, now afebrile. 09/06 Urine culture positive for klebsiella pneumonia that is jarvis-sensitive. However, he has multiple antibiotic allergies. 09/06 Blood culture negative Repeat urine culture on 09/10 growing <10,000 gram positive joshua -Infectious disease consulted, started Ertapenem on 09/07. Will discontinue antibiotics and discharge patient home today. -He has recorded allergies to multiple antibiotics, making choice of oral antibiotic technically difficult. In addition, he has a history of repeated severe bouts of c.diff. Therefore, he will derive the most benefit with the least harm by continuing IV antibiotics until his urine culture shows eradication of the infection, along with continued monitoring in the hospital. Appreciate recommendations by infectious disease. (2) Pleural effusion, left ICD Codes: J90 - Pleural effusion, not elsewhere classified Status: Acute Plan: Chest xray shows left effusion and basilar dependent airspace disease increased from August 31. Pleural fluid studies from thoracentesis on 08/31 passenger representative of exudative effusion. Cultures were negative. Echo on 08/29 shows hyperdynamic left systolic function with EF of 65-70%. Repeat pleurocentesis performed 09/07/17, pH 8.5, WBC 843, RBC 7042, glucose normal, LDH normal. Likely reactive, if continuing to recur, would need further workup for potential malignant source, infectious sources, etc. Cytology during last hospitalization showed likely reactive atypia. 09/11 repeat CXR shows persistent left lower lung consolidation- further work- up as outpatient -Supplemental O2 PRN -Further workup if it continues to recur (3) Partial nontraumatic amputation of foot ICD Codes: Z89.439 - Acquired absence of unspecified foot Status: Chronic Plan: History of osteomyelitis and amputation of hallux on left foot. Current wound vac in place. Several pressure ulcers present on left foot as well CRP 18, ESR 95. No signs of infection except for leukocytosis, x-ray of foot showing no obvious osteomyelitis. Treated with long-term IV vancomycin recently for osteomyelitis. Has severe PAD, multiple lower extremity ulcers, had arterial interventions bilaterally last hospital visit. -Blood culture negative -Wound management consult - Change wound VAC to left medial foot M-W-F with wound VAC settings @125mmHg low continuous suction. - Change dressing to left lateral foot wounds daily with Santyl and dry cover. -Gabapentin (increased to 300 tid for neuropathic pains), Percocet for pain -PT/OT on board, will likely require home health with PT at discharge. (4) Hypertension ICD Codes: I10 - Hypertension Status: Chronic Plan: Continue home meds: Norvasc and Lisinopril Clonidine PRN (5) COPD (chronic obstructive pulmonary disease) ICD Codes: J44.9 - Chronic obstructive pulmonary disease Status: Chronic Plan: History of chronic COPD -Continue home Spiriva, Symbicort -Duonebs and Albuterol PRN (6) FEN/PPX Status: Acute Plan: Fluids: Oral Electrolytes: stable, continue to monitor Nutrition: regular diet DVT ppx: Heparin Problem Qualifiers (1) UTI (urinary tract infection): Qualified Codes: N30.00 - Acute cystitis without hematuria (2) Partial nontraumatic amputation of foot: Qualified Codes: Z89.432 - Acquired absence of left foot (3) Hypertension: Qualified Codes: I10 - Essential (primary) hypertension (4) COPD (chronic obstructive pulmonary disease): Qualified Codes: J44.9 - Chronic obstructive pulmonary disease, unspecified Amy Adan MD, R3 Sep 12, 2017 08:47
[2017-09-12] MEDS: FERROUS SULFATE 325 MG (65 MG ELEMENTAL IRON) TAB PO SCH (08:52)
[2017-09-12] MEDS: GABAPENTIN 300 MG CAP PO SCH ×2 (08:52→11:57)
[2017-09-12] MEDS: CITALOPRAM HYDROBROMIDE 20 MG TAB PO SCH (08:52)
[2017-09-12] MEDS: LACTOBACILLUS ACIDOPHILUS TAB PO SCH ×2 (08:52→11:57)
[2017-09-12] MEDS: ASPIRIN EC 81 MG TABEC PO SCH (08:52)
[2017-09-12] MEDS: DOCUSATE SODIUM 50 MG/SENNA 8.6 MG TAB PO SCH (08:53)
[2017-09-12] MEDS: COLLAGENASE OINT 30 GM TUBE TOPICAL SCH (08:53)
[2017-09-12] MEDS: amLODIPine BESYLATE 5 MG TAB PO SCH (08:53)
[2017-09-12] MEDS: SODIUM CHLORIDE 0.9% FLUSH 10 ML FLUSH IV FLUSH SCH (08:53)
[2017-09-12] MEDS: TIOTROPIUM BROMIDE 18 MCG INH INH SCH (08:54)
[2017-09-12] MEDS: ALBUTEROL SULFATE 90 MCG/ACT HFA 8 GM INHALER INH SCH ×2 (08:54→11:58)
[2017-09-12] MEDS: BUDESONIDE-FORMOTEROL 160/4.5 MCG INHALER INH SCH ×2 (08:54→08:55)
--- NOTE | 2017-09-12 08:57 | HHI.DCPOC ---
Discharge Care Plan Diagnosis: (1) UTI (urinary tract infection) (2) Pleural effusion, left Goals to Promote Your Health * To prevent worsening of your condition and complications * To maintain your health at the optimal level Directions to Meet Your Goals Take your medications as prescribed Follow your dietary instruction Follow activity as directed Keep your appointments as scheduled Take your immunizations and boosters as scheduled If your symptoms worsen call your PCP, if no PCP go to Urgent Care Center or Emergency Room Smoking is Dangerous to Your Health. Avoid second hand smoke Call the 24-hour hour crisis hotline for domestic abuse at Amy Adan MD, R3 Sep 12, 2017 08:57
[2017-09-12] MEDS ORDERED: NEUR300C PO (08:59)
--- NOTE | 2017-09-12 09:02 | HHI.FF ---
Face to Face Verification Diagnosis: (1) Impaired mobility and activities of daily living (2) UTI (urinary tract infection) (3) Pleural effusion, left (4) Partial nontraumatic amputation of foot Physical Therapy Order: Evaluate and Treat Home Health Nursing Order: Medical education Signs/symptoms of disease process Medication education-adverse effect Wound care and dressing changes Roman catheter maintenance I have seen patient Jose GarciaSr on 09/12/17. My clinical findings support the need for the requested home health care services because: Ltd mobility - disease progression Patient has SOB Need for psychosocial assistance Infection w/ risk of complications I certify that my clinical findings support that this patient is homebound because: Unsteady gait/balance Need for psychosocial assistance Amy Adan MD, R3 Sep 12, 2017 09:02
[2017-09-12 09:16] LABS: BICARBONATE 26.2 MEQ/L (21.0-32.0); POTASSIUM 4.1 MEQ/L (3.5-5.1)
[2017-09-12 10:18] VITALS: O2SAT 94
[2017-09-12 12:04] VITALS: BP 181/80; PULSE 81; RESP 17; TEMP 98.3; O2SAT 98
[2017-09-12] MEDS: cloNIDine HCL 0.1 MG TAB PO PRN (12:18)
--- NOTE | 2017-09-14 14:17 | HHI.DS ---
Discharge Summary Admission Date Sep 08, 2017 at 10:20 Discharge Date: Sep 12, 2017 Admitting Diagnosis Large left pleural effusion, uti, leukocytosis, ams (1) UTI (urinary tract infection) Diagnosis: Principal Plan: UA significant for positive nitrites, moderate leukocyte esterase, 11 WBC , many bacteria Urine with dark, strong odor at home. Leukocytosis resolved, now afebrile. 09/06 Urine culture positive for klebsiella pneumonia that is jarvis-sensitive. However, he has multiple antibiotic allergies. 09/06 Blood culture negative Repeat urine culture on 09/10 growing <10,000 gram positive joshua -Infectious disease consulted, started Ertapenem on 09/07. Will discontinue antibiotics and discharge patient home today. -He has recorded allergies to multiple antibiotics, making choice of oral antibiotic technically difficult. In addition, he has a history of repeated severe bouts of c.diff. Therefore, he will derive the most benefit with the least harm by continuing IV antibiotics until his urine culture shows eradication of the infection, along with continued monitoring in the hospital. Appreciate recommendations by infectious disease. ICD Codes: N39.0 - Urinary tract infection, site not specified Status: Resolved (2) Pleural effusion, left Diagnosis: Principal Plan: Chest xray shows left effusion and basilar dependent airspace disease increased from August 31. Pleural fluid studies from thoracentesis on 08/31 business center representative of exudative effusion. Cultures were negative. Echo on 08/29 shows hyperdynamic left systolic function with EF of 65-70%. Repeat pleurocentesis performed 09/07/17, pH 8.5, WBC 843, RBC 7042, glucose normal, LDH normal. Likely reactive, if continuing to recur, would need further workup for potential malignant source, infectious sources, etc. Cytology during last hospitalization showed likely reactive atypia. 09/11 repeat CXR shows persistent left lower lung consolidation- further work- up as outpatient -Supplemental O2 PRN -Further workup if it continues to recur ICD Codes: J90 - Pleural effusion, not elsewhere classified Status: Acute (3) Partial nontraumatic amputation of foot Diagnosis: Secondary Plan: History of osteomyelitis and amputation of hallux on left foot. Current wound vac in place. Several pressure ulcers present on left foot as well CRP 18, ESR 95. No signs of infection except for leukocytosis, x-ray of foot showing no obvious osteomyelitis. Treated with long-term IV vancomycin recently for osteomyelitis. Has severe PAD, multiple lower extremity ulcers, had arterial interventions bilaterally last hospital visit. -Blood culture negative -Wound management consult - Change wound VAC to left medial foot M-W-F with wound VAC settings @125mmHg low continuous suction. - Change dressing to left lateral foot wounds daily with Santyl and dry cover. -Gabapentin (increased to 300 tid for neuropathic pains), Percocet for pain -PT/OT on board, will likely require home health with PT at discharge. ICD Codes: Z89.439 - Acquired absence of unspecified foot Status: Chronic (4) Hypertension Diagnosis: Secondary Plan: Continue home meds: Norvasc and Lisinopril Clonidine PRN ICD Codes: I10 - Hypertension Status: Chronic (5) COPD (chronic obstructive pulmonary disease) Diagnosis: Secondary Plan: History of chronic COPD -Continue home Spiriva, Symbicort -Duonebs and Albuterol PRN ICD Codes: J44.9 - Chronic obstructive pulmonary disease Status: Chronic (6) FEN/PPX Diagnosis: Secondary Plan: Fluids: Oral Electrolytes: stable, continue to monitor Nutrition: regular diet DVT ppx: Heparin Status: Acute Consultants Infectious disease, physical therapy Brief History Pt is a 72 y/o male with extensive medical history, including COPD, dementia, history of TIA, C diff, osteomyelitis. Of note he was just discharged from [place] [facility] after a long admission to the hospital with multiple infections and sepsis, also had left hallux amputation. The accompanies the pt, who provided most of the history. She states that she changed his Fentanyl patch earlier this morning and gave him his 5mg percocet. She reports that he took a nap, then woke up and was very drowsy. She states that he was confused and worsened throughout the day. She became worried and called for EVAC to bring to the hospital. Denies any other symptoms. No fever/chills. He his having some residual pleuritic chest pain from a thoracentesis that was performed last week. Denies any shortness of breath. Has chronic cough, nothing new. No nausea/ vomiting, No diarrhea. He currently has a wound vac on his left foot. She states the foot seems to be healing well. Home health is assisting at home. He denies any dysuria, hematuria. Does have incontinence. States the urine was dark and had a strong odor. Patient states that he feels basically back to normal. He still feels a little drowsy, but no other complaints. CBC/BMP: 09/12/17 0729 09/12/17 0729 Significant Findings Laboratory Tests Test 09/12/17 07:29 Red Blood Count 3.83 MIL/MM3 (4.50-5.90) Hemoglobin 10.3 GM/DL (13.0-17.0) Hematocrit 31.3 % (39.0-51.0) Mean Corpuscular Hemoglobin 26.9 PG (27.0-34.0) Platelet Count 530 TH/MM3 (150-450) Blood Urea Nitrogen 21 MG/DL (7-18) Random Glucose 108 MG/DL (74-106) Estimat Glomerular Filtration Rate 88 ML/MIN (>89) PE at Discharge GENERAL: laying in bed, no distress. SKIN: Wound over left foot covered with wound vac. Several stage 2 ulcers present over lateral left foot currently wrapped. HEAD: Atraumatic. Normocephalic. EYES: No injection or drainage. ENT: No nasal discharge. CARDIOVASCULAR: Regular rhythm and rate without murmurs, pulses intact peripherally. RESPIRATORY: CTAB, slightly diminished in left lower lung, unchanged. GASTROINTESTINAL: Abdomen soft, non-tender, nondistended. Bowel sounds present. MUSCULOSKELETAL: No calf tenderness. NEUROLOGICAL: Awake and alert. Oriented x3. Hospital Course 72 year old male with an extensive past medical history to include COPD, multiple episodes of c.diff colitis, and osteomyelitis status post amputation of hallux of the left foot. He presented to the ED on 09/06/17. He was recently discharged from [facility] after a long hospital stay for multiple infections and sepsis with left hallux amputation. He presented to the ED with drowsiness and confusion along with pleuritic chest pain. He required thoracentesis for pleural effusion during his last hospital visit. Workup revealed leukocytosis, urinary tract infection with klebsiella pneumonia, and left pleural effusion. Infectious disease was consulted due to his multiple antibiotic allergies, history of severe c.diff colitis after antibiotic usage, and patient's initial reluctant to start antibiotics. Infectious disease started Ertapenem on 09/07. He was treated with Ertapenem through the duration of his hospital stay. Repeat urine culture was essentially negative and IV antibiotics were stopped before his discharge. He will not be sent home on any antibiotics. For his left pleural effusion was drained via pleurocentesis for both diagnostic and therapeutic purposes. Pleural fluid analysis revealed likely reactive process. If pleural effusion continues to recur, he will need further workup. Wound management was consulted to help with management of his left foot. He has wound vac changes on MWF with VAC settings at 125 mmHg low continuous suction. He will be discharged home with home health care and will follow up in wound clinic for regular wound vac changes. Pt Condition on Discharge: Stable Discharge Disposition: Disch w/ Home Health Serv Discharge Instructions DIET: Follow Instructions for: Heart Healthy Diet Activities you can perform: Regular-No Restrictions Follow up Referrals: PCP Follow-up - 1 Week with La Nena Samuel MD, [facility]/ with [facility] - 2-3 Days New Medications: Gabapentin (Neurontin) 300 Mg Cap 300 MG PO TID, #90 CAP 3 Refills Continued Medications: Albuterol 18 GM Inh (Ventolin Hfa 18 GM Inh) 90 Mcg/Act Aer 2 PUFF INH Q4-6H PRN for SHORTNESS OF BREATH for 30 Days, #1 INHALER 0 Refills Amlodipine (Amlodipine) 5 Mg Tab 5 MG PO BID for Blood Pressure Management, #30 TAB 0 Refills Ascorbic Acid (Vitamin C) 1,000 Mg Tablet.er 1000 MG PO DAILY Aspirin DR (Adult Aspirin EC Low Strength) 81 Mg Tabec 81 MG PO DAILY for 30 Days, TAB Atorvastatin (Atorvastatin) 40 Mg Tab 40 MG PO HS for 30 Days, TAB 1 Refill Citalopram (Citalopram) 40 Mg Tab 60 MG PO DAILY for Control Depression, #45 TAB 6 Refills Please take 1.5 pills daily Clonidine (Catapres) 0.2 Mg Tab 0.2 MG PO Q8HR for Blood Pressure Management for 30 Days, TAB 1 Refill Collagenase (Santyl) 250 Unit/Gram Oin 1 APPLIC TOPICAL DAILY for 30 Days, TUBE Cyclobenzaprine (Flexeril) 10 Mg Tab 5 MG PO Q8HR for Muscle Spasm for 30 Days, TAB 1 Refill Donepezil HCl (Aricept) 5 Mg Tablet 10 MG PO HS for 30 Days, 1 Refill Fentanyl Patch 72 HR (Duragesic Patch 72 HR) 25 Mcg/Hr Patch 1 PATCH T-DERMAL Q3D, #10 0 Refills Remove old patch when new one placed. Ferrous Sulfate (Iron) 325 Mg Cap 325 MG PO BIDPC for Nutritional Supplement, #60 TAB 2 Refills Fluticasone-Salmeterol Inh (Advair Diskus Inh) 500-50 Mcg/Blist Aer 1 PUFF INH BID, #1 INHALER 0 Refills Rinse mouth after use. Ipratropium-Albuterol Inh (Combivent Respimat Inh) 20-100 Penitentiary/Act Aero 1 PUFF INH QID for Asthma Management, #1 INHALER 0 Refills Lactobacillus Acidophilus (Lactobacillus Acidophilus) 1 Tab Tab 1 TAB PO TIDAC for Nutritional Supplement, #30 TAB 0 Refills Latanoprost Opth Drops (Xalatan Opth Drops) 0.005% Drops 1 DROP EACH EYE HS for 30 Days, ML 1 Refill Lisinopril (Lisinopril) 20 Mg Tab 40 MG PO HS for Blood Pressure Management for 30 Days, TAB 1 Refill Multiple Vitamins W/ Minerals (Thera M Plus) 1 Tab 1 TAB PO DAILY for Nutritional Supplement for 30 Days, TAB Oxycodone-Acetaminophen (Oxycodone-Acetaminophen) 5-325 mg Tab 1 TAB PO Q6H PRN for PAIN, #60 TAB 0 Refills Travoprost Opth Drops (Travatan Z Opth Drops) 0.004 % Soln 1 DROP EACH EYE HS for Glaucoma, #1 BOTTLE 5 Refills [guaiFENesin ER] () 600 MG TABCR 600 MG PO BID for Chest Congestion/Cough for 30 Days Discontinued Medications: Gabapentin (Gabapentin) 100 Mg Cap 100 MG PO Q8H for Pain Management for 30 Days, CAP 1 Refill Дмитрий Duval MD R3 Sep 14, 2017 14:17
== END 2017-09-12 16:20 | disposition home or self-care (01) | DRG 187 ==
LOC: NEPC 19:33 → NEDA 22:28 → UNDOADMIN 22:28 → NEDA 23:29 → INTOOBSV 23:29 → N04A 23:45 → NEDA 23:45 → OBSVTOIN 09-08 10:20
PROVIDERS: ADMIT Family Medicine; ATTEND Family Medicine
PROC: 0W9B3ZZ Drainage of Left Pleural Cavity, Percutaneous Approach (ICD-10-PCS; principal; 2017-09-07)
DX: J90 Pleural effusion, not elsewhere classified (principal); N39.0 Urinary tract infection, site not specified; F03.90 Unspecified dementia, unspecified severity, without behavioral disturbance, psychotic disturbance, mood disturbance, and anxiety; J44.9 Chronic obstructive pulmonary disease, unspecified; L89.892 Pressure ulcer of other site, stage 2; I25.10 Atherosclerotic heart disease of native coronary artery without angina pectoris; F32.9 Major depressive disorder, single episode, unspecified; I10 Essential (primary) hypertension; H40.9 Unspecified glaucoma; N31.9 Neuromuscular dysfunction of bladder, unspecified; I70.245 Atherosclerosis of native arteries of left leg with ulceration of other part of foot; Z88.1 Allergy status to other antibiotic agents; Z79.82 Long term (current) use of aspirin; Z86.73 Personal history of transient ischemic attack (TIA), and cerebral infarction without residual deficits; Z87.891 Personal history of nicotine dependence; Z89.412 Acquired absence of left great toe
CPT/HCPCS: 32555; 71010; 73630; 80048; 80053; 81001; 82042; 82150; 82945; 82948; 83605; 83615; 83690; 83735; 83986; 84157; 84315; 84484; 85025; 85027; 85652; 86140; 87040; 87077; 87086; 87186; 89051; 93005; 94640; 94664; 96365; 96366; 96372; C1729; G0378; J1335; J1644; J1956

== ENCOUNTER 2017-09-16 20:38 | Inpatient (IN) | payer MEDICARE, OTHER ==
[~2017-09-16] VITALS: Ht 180.3 cm; Wt 75.5 kg
[~2017-09-16 20:38] MED LIST changes: -ACET1TAB86 PO; -AMLO5 PO; +AMLO5TAB2 PO; -ARIC5TAB2 PO; +ARIC5TAB6 PO; -ASCO100016 PO; +ASCO100029 PO; -ASPI-99 PO; +ASPI1TAB56 PO; -CELE20TA PO; -CLON.1 PO; +CYCL10TA PO; -CYCL1TAB29 PO; -DILA2TAB2 PO; -DONE10TA7 PO; -FERR325T20 PO; -GABA100C4 PO; -HYDR-3800 PO; -HYDR-3801 PO; -LACT PO; -LISI40TA PO; -MULT-142 PO; +NEUR300C PO; -OXYC1TAB35 PO; -PANT40TA3 PO; -SPIRCAP INH; -SYMB160A INH; -VITA500T2 PO
[2017-09-16 20:51] VITALS: BP 176/80; PULSE 79; RESP 16; TEMP 100.8
[2017-09-16] MEDS ORDERED: SODIUM CHLOR 0.9% 1000 ML INJ 400 ML IV ONE (20:51)
[2017-09-16] MEDS ORDERED: SODIUM CHLOR 0.9% 1000 ML INJ 1,000 ML IV ONE ×2 (20:51)
[2017-09-16 20:59] VITALS: O2SAT 95
[2017-09-16 21:13] LABS: AUTOMATED NEUTROPHIL # 16.7 TH/MM3 (1.8-7.7); BASOPHIL # 0.1 TH/MM3 (0-0.2); BASOPHIL % 0.4 % (0.0-2.0); EOSINOPHIL # 0.5 TH/MM3 (0-0.4); EOSINOPHIL % 2.2 % (0.0-4.0); HEMATOCRIT 29.4 % (39.0-51.0); HEMOGLOBIN 9.6 GM/DL (13.0-17.0); LYMPH % 10.1 % (9.0-44.0); LYMPHOCYTE # 2.1 TH/MM3 (1.0-4.8); MEAN CELL VOLUME 83.4 FL (80.0-100.0); MEAN CORPUSCULAR HEMOGLOBIN 27.1 PG (27.0-34.0); MEAN CORPUSCULAR HGB CONC 32.5 % (32.0-36.0); MEAN PLATELET VOLUME 7.2 FL (7.0-11.0); MONO % 6.2 % (0.0-8.0); MONOCYTE # 1.3 TH/MM3 (0-0.9); NEUT % 81.1 % (16.0-70.0); PLATELET COUNT 563 TH/MM3 (150-450); RED BLOOD COUNT 3.53 MIL/MM3 (4.50-5.90); RED CELL DISTRIBUTION WIDTH 18.4 % (11.6-17.2); WHITE BLOOD COUNT 20.6 TH/MM3 (4.0-11.0)
--- NOTE | 2017-09-16 21:23 | PD ---
HPI Chief Complaint: Respiratory Distress Time Seen by Provider: 20:51 Travel History International Travel<30 days: No Contact w/Intl Traveler<30days: No Traveled to known affect area: No History of Present Illness HPI 72-year-old male with PMH of COPD presents to the ED via EMS for evaluation of worsening shortness of breath, fever. He endorses chronic cough, occasionally productive of yellowish sputum. No worse today. The patient also complains of bitemporal headache 5 days. He denies dizziness, vision changes, chest pain, palpitations, abdominal pain, nausea, vomiting, dysuria, back pain lower extremity edema. The patient's is at bedside states that he was just discharged from the hospital 6 days ago. She states that he had a pleural effusion and UTI at that time. He had a thoracentesis done and the fluid was sent to the [facility]. He received IV ertapenem in the hospital under the direction of Dr. Long. Patient has been ill for the last few months and endorses multiple hospital visits including admission to the ICU. Primary care through the residents. [facility] Past Medical History Hx Anticoagulant Therapy: Yes (81 MG ASA) Arthritis: Yes Asthma: No Autoimmune Disease: No Blood Disorders: Yes (ANEMIA) Anxiety: No Depression: Yes Heart Rhythm Problems: No Cancer: No Cardiovascular Problems: Yes (Left carotid endarterectomy 10/14/16) High Cholesterol: No Chemotherapy: No Chest Pain: No Congestive Heart Failure: No COPD: Yes Cerebrovascular Accident: Yes (Yes, 05/09/16, 10/14/16) Dementia: Yes (MILD ) Diabetes: No Diminished Hearing: Yes (BILATERAL HEARING AIDS) Endocrine: No Gastrointestinal Disorders: Yes GERD: No Genitourinary: Yes Headaches: No Hiatal Hernia: No Heparin Induced Thrombocytopen: No Hypertension: Yes Immune Disorder: No Implanted Vascular Access Dvce: Yes Kidney Stones: Yes (MANY YEARS AGO;PASSED ) Musculoskeletal: Yes Neurologic: Yes Psychiatric: Yes Reproductive: No Respiratory: Yes Immunizations Current: Yes Migraines: No Pancreatitis: Yes Radiation Therapy: No Renal Failure: No Seizures: No Sickle Cell Disease: No Thyroid Disease: No Ulcer: No ?: Not Past Surgical History Abdominal Surgery: Yes (Appendectomy ) AICD: No Appendectomy: Yes Arteriovenous Shunt: No Body Medical Devices: penile implant Cardiac Surgery: No Ear Surgery: No Endocrine Surgery: No Eye Surgery: Yes (Bilateral cateracts, 2 each) Genitourinary Surgery: Yes (Bladder implant, inneffective. Penile implant) Gynecologic Surgery: No Insulin Pump: No Joint Replacement: No Neurologic Surgery: Yes Oral Surgery: Yes (Abcess back of front tooth, removal. Caps/missing teeth) Pacemaker: No Thoracic Surgery: No Other Surgery: Yes (recent left great toe amputation) Social History Alcohol Use: No Tobacco Use: No Substance Use: No Allergies-Medications (Allergen,Severity, Reaction): Coded Allergies: Sulfa (Sulfonamide Antibiotics) (Verified Allergy, Severe, Anaphylaxis, ) metronidazole (Verified Allergy, Severe, Fever, colitis, 09/16/17) While being treated for Cdiff. Doubt if true allergy. penicillin G (Verified Allergy, Severe, Anaphylaxis, 09/16/17) sulfamethoxazole (Verified Allergy, Severe, Anaphylaxis, 09/16/17) trimethoprim (Verified Allergy, Severe, Anaphylaxis, 09/16/17) erythromycin base (Verified Allergy, Intermediate, Rash, 09/16/17) MRI PRECAUTION (Verified Adverse Reaction, Severe, BLADDER STIMULATOR, 09/16/17) BRAIN ONLY ON RECEIVE ONLY COIL, P.O. 01/11/17, DML meperidine (Verified Adverse Reaction, Unknown, Psychosis, 09/16/17) morphine (Verified Adverse Reaction, Unknown, Psychosis, 09/16/17) Uncoded Allergies: surgical tape (Allergy, Severe, 12/15/13) Reported Meds & Prescriptions Reported Meds & Active Scripts Active Neurontin (Gabapentin) 300 Mg Cap 300 Mg PO TID Thera M Plus (Multivitamins/Minerals Therapeutic) 1 Tab 1 Tab PO DAILY 30 Days Xalatan Opth Drops (Latanoprost) 0.005% Drops 1 Drop EACH EYE HS 30 Days [guaiFENesin ER] 600 MG Tabcr 600 Mg PO BID 30 Days Adult Aspirin EC Low Strength (Aspirin) 81 Mg Tabec 81 Mg PO DAILY 30 Days Lisinopril 20 Mg Tab 40 Mg PO HS 30 Days Catapres (Clonidine) 0.2 Mg Tab 0.2 Mg PO Q8HR 30 Days Atorvastatin (Atorvastatin Calcium) 40 Mg Tab 40 Mg PO HS 30 Days Flexeril (Cyclobenzaprine HCl) 10 Mg Tab 5 Mg PO Q8HR 30 Days Aricept (Donepezil HCl) 5 Mg Tablet 10 Mg PO HS 30 Days Ventolin Hfa 18 GM Inh (Albuterol Sulfate) 90 Mcg/Act Aer 2 Puff INH Q4-6H PRN 30 Days Duragesic Patch 72 HR (Fentanyl) 25 Mcg/Hr Patch 1 Patch T-DERMAL Q3D Remove old patch when new one placed. Santyl (Collagenase) 250 Unit/Gram Oin 1 Applic TOPICAL DAILY 30 Days Oxycodone-Acetaminophen 5-325 mg Tab 1 Tab PO Q6H PRN Iron (Ferrous Sulfate) 325 Mg Cap 325 Mg PO BIDPC Travatan Z Opth Drops (Travoprost) 0.004 % Soln 1 Drop EACH EYE HS Citalopram (Citalopram Hydrobromide) 40 Mg Tab 60 Mg PO DAILY Please take 1.5 pills daily Reported Amlodipine (Amlodipine Besylate) 5 Mg Tab 5 Mg PO BID Advair Diskus Inh (Fluticasone-Salmeterol Inh) 500-50 Mcg/Blist Aer 1 Puff INH BID Rinse mouth after use. Combivent Respimat Inh (Ipratropium-Albuterol Inh) 20-100 Detention/Act Aero 1 Puff INH QID Vitamin C (Ascorbic Acid) 1,000 Mg Tablet.er 1,000 Mg PO DAILY Lactobacillus Acidophilus 1 Tab Tab 1 Tab PO TIDAC Review of Systems Except as stated in HPI: all other systems reviewed are Neg Physical Exam Narrative GENERAL: Well-nourished, well-developed chronically ill-appearing white male in no acute distress. SKIN: Focused skin assessment warm/dry. There is a palpitation of the left great toe with the wound VAC in place. The surrounding wound is erythematous, warm, edematous and tender. No cellulitic streaking. HEAD: Normocephalic. EYES: No scleral icterus. No injection or drainage. NECK: Supple, trachea midline. No JVD or lymphadenopathy. CARDIOVASCULAR: Regular rate and rhythm without murmurs, gallops, or rubs. RESPIRATORY: Breath sounds diminished bilaterally. No accessory muscle use. GASTROINTESTINAL: Abdomen soft, non-tender, nondistended. Active bowel sounds. MUSCULOSKELETAL: No cyanosis, or edema. Homans sign negative bilaterally. BACK: Nontender without obvious deformity. No CVA tenderness. Data Data Last Documented VS Vital Signs Date Time Temp Pulse Resp B/P (MAP) Pulse Ox O2 Delivery O2 Flow Rate FiO2 09/16/17 21:38 82 16 176/80 (112) 96 Room Air 09/16/17 20:51 100.8 Orders Orders Complete Blood Count With Diff (09/16/17 20:51) Comprehensive Metabolic Panel (09/16/17 20:51) Lactic Acid Sepsis Protocol (09/16/17 20:51) Urinalysis - C+S If Indicated (09/16/17 20:51) Blood Culture (09/16/17 20:51) Chest, Single Ap (09/16/17 20:51) Blood Glucose (09/16/17 20:51) Ecg Monitoring (09/16/17 20:51) Iv Access Insert/Monitor (09/16/17 20:51) Oximetry (09/16/17 20:51) Sodium Chlor 0.9% 1000 Ml Inj (Ns 1000 M (09/16/17 20:51) Sodium Chlor 0.9% 1000 Ml Inj (Ns 1000 M (09/16/17 20:51) Aztreonam Inj (Azactam Inj) (09/16/17 22:04) Levofloxacin 750 Mg Premix Inj (Levaquin (09/16/17 22:04) Admit Order (Ed Use Only) (09/16/17 22:40) Admit To Inpatient (09/16/17 ) Vital Signs (Adult) KATIE.Q4H (09/16/17 22:41) Activity Bed Rest (09/16/17 22:41) Steam Pressure Chamber Operator / Telemetry KATIE.Q8H (09/16/17 22:41) Intake + Output 06,14,22 (09/16/17 22:41) Resp Oxygen Justo C Titrat 1-4 L (09/16/17 ) Inpatient Certification (09/16/17 ) Labs Laboratory Tests Test 09/16/17 20:31 09/16/17 20:33 White Blood Count 20.6 TH/MM3 Red Blood Count 3.53 MIL/MM3 Hemoglobin 9.6 GM/DL Hematocrit 29.4 % Mean Corpuscular Volume 83.4 FL Mean Corpuscular Hemoglobin 27.1 PG Mean Corpuscular Hemoglobin Concent 32.5 % Red Cell Distribution Width 18.4 % Platelet Count 563 TH/MM3 Mean Platelet Volume 7.2 FL Neutrophils (%) (Auto) 81.1 % Lymphocytes (%) (Auto) 10.1 % Monocytes (%) (Auto) 6.2 % Eosinophils (%) (Auto) 2.2 % Basophils (%) (Auto) 0.4 % Neutrophils # (Auto) 16.7 TH/MM3 Lymphocytes # (Auto) 2.1 TH/MM3 Monocytes # (Auto) 1.3 TH/MM3 Eosinophils # (Auto) 0.5 TH/MM3 Basophils # (Auto) 0.1 TH/MM3 CBC Comment DIFF FINAL Differential Comment Blood Urea Nitrogen 25 MG/DL Creatinine 1.03 MG/DL Random Glucose 193 MG/DL Total Protein 7.2 GM/DL Albumin 2.7 GM/DL Calcium Level 9.7 MG/DL Alkaline Phosphatase 124 U/L Aspartate Amino Transf (AST/SGOT) 19 U/L Alanine Aminotransferase (ALT/SGPT) 36 U/L Total Bilirubin 0.2 MG/DL Sodium Level 139 MEQ/L Potassium Level 4.6 MEQ/L Chloride Level 106 MEQ/L Carbon Dioxide Level 25.2 MEQ/L Anion Gap 8 MEQ/L Estimat Glomerular Filtration Rate 71 ML/MIN Lactic Acid Level 2.1 mmol/L [facility] Medical Decision Making Medical Screen Exam Complete: Yes Emergency Medical Condition: Yes Differential Diagnosis Pneumonia versus UTI versus cellulitis versus other Narrative Course 72-year-old male with PMH of DM, recent pleural effusion, recent hospitalization for UTI, osteomyelitis of the left foot presents to the ED for evaluation of 2 day history of worsening shortness of breath and fevers. Patient was discharged from the medicine service on 09/14 per record review. On arrival he is febrile, tachycardic and ill-appearing. O2 sats 96% on room air. Breath sounds are diminished bilaterally. Abdomen is soft and nontender. No suprapubic tenderness. There is amputation of the great toe of the left foot with surrounding erythema, edema, warmth. This does not extend into the ankle. IV was established. Patient was administered 2 L normal saline, 650 Tylenol by mouth. EKG rate 78, ectopic atrial rhythm. OR interval 164, QRS 164, QTc 441. Right bundle-branch block. Reviewed by Dr. Cervantes. CXR: Chronic left lung changes as well as new right infiltrate. CBC: WBC 20 with a left shift. Hematocrit of 9.6. BUN 25 creatinine 1.03 Lactic acid 2.1. UA pending Aztreonam and Levaquin was ordered. Patient's refused Levaquin secondary to recent history of C. difficile. Patient meets sepsis criteria. Plan to admit to medicine with podiatry consult. Family is agreeable with this plan. I spoke with Dr. Engle who agrees to accept the patient to the medicine service under Dr. Haider. Please see medicine notes for disposition. Natasha Varela Sep 16, 2017 21:22
[2017-09-16 21:31] LABS: LACTIC ACID SEPSIS PROTOCOL 2.1 mmol/L (0.4-2.0)
[2017-09-16 21:33] LABS: ALBUMIN 2.7 GM/DL (3.4-5.0); AST (GOT) 19 U/L (15-37); BICARBONATE 25.2 MEQ/L (21.0-32.0); BLOOD UREA NITROGEN 25 MG/DL (7-18); CALCIUM 9.7 MG/DL (8.5-10.1); CHLORIDE 106 MEQ/L (98-107); CREATININE 1.03 MG/DL (0.60-1.30); GLOMERULAR FILTRATION RATE 71 ML/MIN (>89); GLUCOSE,RANDOM 193 MG/DL (74-106); SODIUM (NA) 139 MEQ/L (136-145)
[2017-09-16 21:38] VITALS: BP 176/80; PULSE 82; RESP 16; O2SAT 96
[2017-09-16 21:39] LABS: ALKALINE PHOSPHATASE 124 U/L (45-117); ALT (GPT) 36 U/L (12-78); TOTAL BILIRUBIN ADULT 0.2 MG/DL (0.2-1.0); TOTAL PROTEIN 7.2 GM/DL (6.4-8.2)
--- NOTE | 2017-09-16 21:43 | RADRPT ---
EXAM DATE/TIME: 09/16/2017 21:23 [place] COMPARISON: CHEST SINGLE AP, September 11, 2017, 11:13. INDICATIONS : Fever. MEDICAL HISTORY : Stroke. SURGICAL HISTORY : None. ENCOUNTER: Initial ACUITY: 1 day PAIN SCORE: 0/10 LOCATION: Bilateral chest FINDINGS: 2 AP portable erect views of the chest were obtained and demonstrate new hazy infiltrate in the right lung base. The heart size remains at the upper limits of normal. There is mild hazy opacity at the l eft lung base. There is no effusion or perihilar edema. The bony thorax remains intact. CONCLUSION: 1. No hazy opacity at the right lung base of concern for pneumonia. 2. Mild hazy opacity remains in the left lung base. Дмитрий Hoyos MD on September 16, 2017 at 21:40 Board Certified Radiologist. This report was verified electronically.
[2017-09-16] MEDS ORDERED: LEVOFLOXACIN 750 MG PREMIX INJ 150 ML IV STA (22:04)
[2017-09-16] MEDS: AZTREONAM INJ 2,000 MG in SODIUM CHLORIDE 0.9% INJ 100 ML IV STA ×2 (22:30→23:42)
[2017-09-17] VITALS (8 sets, daily range): BP systolic 130–160; BP diastolic 54–77; PULSE 66–84; RESP 16–18; TEMP 96–98.9; O2SAT 95–98
--- NOTE | 2017-09-17 00:22 | HHI.HP ---
[facility] Service Family Medicine Primary Care Physician La Nena Oliveira , R1 MD Jimmie Admission Diagnosis Right PNA, sepsis Diagnoses: International Travel<30 Days: No Contact w/Intl Traveler<30days: No Known Affected Area: No History of Present Illness Patient is a 72-year-old male with a past medical history of COPD, dementia, C. difficile colitis, osteomyelitis status post amputation of the hallux of the left foot, and TIA that presents to the [facility] ED with a chief complaint of weakness since 8 PM last night. Patient states that he could not get out of the chair and felt like he lost all his strength. He also complains of shortness of breath and a headache for 5-6 days. Patient states that he called the ambulance which brought him to the hospital. He does not know if he had a fever but he has had chills. Notably, the patient was recently discharged from the [facility] on September 12, 2017 where he was treated for Klebsiella pneumonia with a left pleural effusion. He also had a wound over his left foot and several stage II ulcers over his lateral left foot that was managed by wound care. Patient was discharged home with home health care and a wound vacuum. Today, patient states that his left foot looks more red than usual. He complains of 8/10 pain in his left foot. Review of Systems Constitutional: COMPLAINS OF: Fatigue, Chills, DENIES: Fever Eyes: DENIES: Blurred vision, Vision loss Ears, nose, mouth, throat: DENIES: Nasal discharge Respiratory: COMPLAINS OF: Shortness of breath Cardiovascular: DENIES: Chest pain Gastrointestinal: DENIES: Abdominal pain, Diarrhea, Nausea, Vomiting Genitourinary: DENIES: Dysuria Musculoskeletal: COMPLAINS OF: Joint pain Integumentary: DENIES: Rash Neurologic: COMPLAINS OF: Headache Past Family Social History Past Medical History COPD Hx of CVA (2016) Arthritis Spinal stenosis HTN Glaucoma Neurogenic bladder Dementia Benign frontal lobe tumor Chronic hip pain Diverticulosis Past Surgical History Left metatarsal s/p debridement 07/03/17 Left hallux amputation 07/24/17 Appendectomy 3 back surgeries Cataract surgery Allergies: Coded Allergies: Sulfa (Sulfonamide Antibiotics) (Verified Allergy, Severe, Anaphylaxis, ) metronidazole (Verified Allergy, Severe, Fever, colitis, 09/16/17) While being treated for Cdiff. Doubt if true allergy. penicillin G (Verified Allergy, Severe, Anaphylaxis, 09/16/17) sulfamethoxazole (Verified Allergy, Severe, Anaphylaxis, 09/16/17) trimethoprim (Verified Allergy, Severe, Anaphylaxis, 09/16/17) erythromycin base (Verified Allergy, Intermediate, Rash, 09/16/17) MRI PRECAUTION (Verified Adverse Reaction, Severe, BLADDER STIMULATOR, 09/16/17) BRAIN ONLY ON RECEIVE ONLY COIL, P.O. 01/11/17, DML meperidine (Verified Adverse Reaction, Unknown, Psychosis, 09/16/17) morphine (Verified Adverse Reaction, Unknown, Psychosis, 09/16/17) Uncoded Allergies: surgical tape (Allergy, Severe, 12/15/13) Active Ordered Medications Reported Meds & Active Scripts Active Neurontin (Gabapentin) 300 Mg Cap 300 Mg PO TID Thera M Plus (Multivitamins/Minerals Therapeutic) 1 Tab 1 Tab PO DAILY 30 Days Xalatan Opth Drops (Latanoprost) 0.005% Drops 1 Drop EACH EYE HS 30 Days [guaiFENesin ER] 600 MG Tabcr 600 Mg PO BID 30 Days Adult Aspirin EC Low Strength (Aspirin) 81 Mg Tabec 81 Mg PO DAILY 30 Days Lisinopril 20 Mg Tab 40 Mg PO HS 30 Days Catapres (Clonidine) 0.2 Mg Tab 0.2 Mg PO Q8HR 30 Days Atorvastatin (Atorvastatin Calcium) 40 Mg Tab 40 Mg PO HS 30 Days Flexeril (Cyclobenzaprine HCl) 10 Mg Tab 5 Mg PO Q8HR 30 Days Aricept (Donepezil HCl) 5 Mg Tablet 10 Mg PO HS 30 Days Ventolin Hfa 18 GM Inh (Albuterol Sulfate) 90 Mcg/Act Aer 2 Puff INH Q4-6H PRN 30 Days Duragesic Patch 72 HR (Fentanyl) 25 Mcg/Hr Patch 1 Patch T-DERMAL Q3D Remove old patch when new one placed. Santyl (Collagenase) 250 Unit/Gram Oin 1 Applic TOPICAL DAILY 30 Days Oxycodone-Acetaminophen 5-325 mg Tab 1 Tab PO Q6H PRN Iron (Ferrous Sulfate) 325 Mg Cap 325 Mg PO BIDPC Travatan Z Opth Drops (Travoprost) 0.004 % Soln 1 Drop EACH EYE HS Citalopram (Citalopram Hydrobromide) 40 Mg Tab 60 Mg PO DAILY Please take 1.5 pills daily Reported Amlodipine (Amlodipine Besylate) 5 Mg Tab 5 Mg PO BID Advair Diskus Inh (Fluticasone-Salmeterol Inh) 500-50 Mcg/Blist Aer 1 Puff INH BID Rinse mouth after use. Combivent Respimat Inh (Ipratropium-Albuterol Inh) 20-100 [facility]/Act Aero 1 Puff INH QID Vitamin C (Ascorbic Acid) 1,000 Mg Tablet.er 1,000 Mg PO DAILY Lactobacillus Acidophilus 1 Tab Tab 1 Tab PO TIDAC Family History Mother-DC Father-DC Social History Lives with 60 year smoking history. Quit 2012 History of alcoholism. Quit 2007 No illicit drug use Physical Exam Vital Signs Vital Signs Date Time Temp Pulse Resp B/P (MAP) Pulse Ox O2 Delivery O2 Flow Rate FiO2 09/16/17 21:38 82 16 176/80 (112) 96 Room Air 09/16/17 20:59 95 Room Air 09/16/17 20:59 19 95 09/16/17 20:51 100.8 79 16 176/80 (112) Physical Exam GENERAL: This is a well-nourished, well-developed patient, in no apparent distress. SKIN: Wound on left left foot covered with wound vac. Erythematous skin surrounding wound. Missing the left big toe. No sacral ulcers identified. Dry skin with scaling diffusely HEAD: Atraumatic. Normocephalic. No temporal or scalp tenderness. EYES: Pupils equal round and reactive. Extraocular motions intact. No scleral icterus. No injection or drainage. ENT: Nose without bleeding, purulent drainage or septal hematoma. Throat without erythema, tonsillar hypertrophy or exudate. Uvula midline. Airway patent. NECK: Trachea midline. No JVD or lymphadenopathy. Supple, nontender, no meningeal signs. CARDIOVASCULAR: Diminished heart sounds but regular without murmurs, gallops, or rubs. RESPIRATORY: Clear to auscultation but diminished. Breath sounds equal bilaterally. No wheezes, rales, or rhonchi. GASTROINTESTINAL: Abdomen soft, non-tender, nondistended. No hepato-splenomegaly , or palpable masses. No guarding. MUSCULOSKELETAL: Extremities without clubbing, cyanosis, or edema. No joint tenderness, effusion, or edema noted. No calf tenderness. NEUROLOGICAL: Awake and alert, fully oriented. Cranial nerves II through XII intact. Motor and sensory grossly within normal limits. Five out of 5 muscle strength in right upper extremity and right/left lower extremity. 3/5 strength in left upper extremity, unable to maintain elevation against gravity. Normal speech. Laboratory Laboratory Tests Test 09/16/17 20:31 09/16/17 20:33 09/16/17 23:23 White Blood Count 20.6 Red Blood Count 3.53 Hemoglobin 9.6 Hematocrit 29.4 Mean Corpuscular Volume 83.4 Mean Corpuscular Hemoglobin 27.1 Mean Corpuscular Hemoglobin Concent 32.5 Red Cell Distribution Width 18.4 Platelet Count 563 Mean Platelet Volume 7.2 Neutrophils (%) (Auto) 81.1 Lymphocytes (%) (Auto) 10.1 Monocytes (%) (Auto) 6.2 Eosinophils (%) (Auto) 2.2 Basophils (%) (Auto) 0.4 Neutrophils # (Auto) 16.7 Lymphocytes # (Auto) 2.1 Monocytes # (Auto) 1.3 Eosinophils # (Auto) 0.5 Basophils # (Auto) 0.1 CBC Comment DIFF FINAL Differential Comment Blood Urea Nitrogen 25 Creatinine 1.03 Random Glucose 193 Total Protein 7.2 Albumin 2.7 Calcium Level 9.7 Alkaline Phosphatase 124 Aspartate Amino Transf (AST/SGOT) 19 Alanine Aminotransferase (ALT/SGPT) 36 Total Bilirubin 0.2 Sodium Level 139 Potassium Level 4.6 Chloride Level 106 Carbon Dioxide Level 25.2 Anion Gap 8 Estimat Glomerular Filtration Rate 71 Lactic Acid Level 2.1 2.2 Date/Time Source Procedure Growth Status 09/16/17 20:35 Blood Peripheral Aerobic Blood Culture Pending Received 09/16/17 20:35 Blood Peripheral Anaerobic Blood Culture Pending Received Result Diagram: 09/16/17203009/16/172030 Course Chest x-ray performed in the ED demonstrates new hazy infiltrates in the right lung base. Lactic acid 2.1, WBC 20.6 - met sepsis criteria. Pt received 1L normal saline bolus in the ED and Aztreonam 2000 mg IV. Caprini VTE Risk Assessment Caprini VTE Risk Assessment: Mod/High Risk (score >= 2) Caprini Risk Assessment Model Point Value = 1 Point Value = 2 Point Value = 3 Point Value = 5 Age 41-60 Minor surgery BMI > 25 kg/m2 Swollen legs Varicose veins or History of unexplained or recurrent spontaneous Oral contraceptives or hormone replacement Sepsis (< 1 month) Serious lung disease, including pneumonia (< 1 month) Abnormal pulmonary function Acute myocardial infarction Congestive heart failure (< 1 month) History of inflammatory bowel disease Medical patient at bed rest Age 61-74 Arthroscopic surgery Major open surgery (> 45 min) Laparoscopic surgery (> 45 min) Malignancy Confined to bed (> 72 hours) Immobilizing plaster cast Central venous access Age >= 75 History of VTE Family history of VTE Factor V Leiden Prothrombin [id number] Lupus anticoagulant Anticardiolipin antibodies Elevated serum homocysteine Heparin-induced thrombocytopenia Other congenital or acquired thrombophilia Stroke (< 1 month) Elective arthroplasty Hip, pelvis, or leg fracture Acute spinal cord injury (< 1 month) Prophylaxis Regimen Total Risk Factor Score Risk Level Prophylaxis Regimen 0-1 Low Early ambulation 2 Moderate Order ONE of the following: *Sequential Compression Device (SCD) *Heparin 5000 units SQ BID 3-4 Higher Order ONE of the following medications: *Heparin 5000 units SQ TID *Enoxaparin/Lovenox 40 mg SQ daily (WT < 150 kg, CrCl > 30 mL/min) *Enoxaparin/Lovenox 30 mg SQ daily (WT < 150 kg, CrCl > 10-29 mL/min) *Enoxaparin/Lovenox 30 mg SQ BID (WT < 150 kg, CrCl > 30 mL/min) AND/OR *Sequential Compression Device (SCD) 5 or more Highest Order ONE of the following medications: *Heparin 5000 units SQ TID (Preferred with Epidurals) *Enoxaparin/Lovenox 40 mg SQ daily (WT < 150 kg, CrCl > 30 mL/min) *Enoxaparin/Lovenox 30 mg SQ daily (WT < 150 kg, CrCl > 10-29 mL/min) *Enoxaparin/Lovenox 30 mg SQ BID (WT < 150 kg, CrCl > 30 mL/min) AND *Sequential Compression Device (SCD) Assessment and Plan Assessment and Plan Patient is a 72-year-old male with multiple comorbidities that presents with severe sepsis with possible source of new right lower lobe pneumonia and left foot wound. He will be admitted for management with IV antibiotics and fluids. Infectious disease will be consulted to assist with management. Code Status DNR. Patient's is his power of environmental attorney Discussed Condition With Seen and examined with Dr. Samuel who is the patient's PCP. Problem List: (1) Severe sepsis ICD Codes: A41.9 - Sepsis, unspecified organism; R65.20 - Severe sepsis without septic shock Plan: -Patient met severe sepsis criteria on admission with WBC 20.6, lactic acid 2.1, and temperature 100.8 -Possible source includes new right lower lobe pneumonia versus left foot wound versus UTI (urinalysis pending but patient has a recent history of UTI treated on last admission) -Patient received Aztreonam 2000 mg IV in the ED and 1 L bolus normal saline -Chest x-ray showed new onset right lower lobe pneumonia -Noticeable erythema around left foot wound - confirmed by patient -Blood cultures pending -Urinalysis and Urine cultures pending -Influenza a/b, sputum Gram stain and culture, Legionella and pneumonia antigens pending -Continue aztreonam 2000 mg IV every 8 hours -1+ maintenance normal saline fluids at 150 mL/hr -Infectious diseases consulted due to patient being allergic to multiple medications including recent history of C. difficile colitis (2) HCAP (healthcare-associated pneumonia) ICD Codes: J18.9 - Pneumonia, unspecified organism Plan: -Acute onset right lower lobe infiltrate -Previous history of pneumonia in recent hospitalization -Consider aspiration pneumonia vs pneumonia due to atelectasis secondary to mostly sedentary status and patient not taking full breaths -Patient receiving home health at home -Incentive spirometry -See plan above (3) Open wound of left foot ICD Codes: S91.302A - Unspecified open wound, left foot, initial encounter Plan: -Erythematous skin around left foot with covered with vacuum -Possible source of severe sepsis as mentioned above -Wound care consulted to assist with management of left foot wound - appreciate recs (4) HTN (hypertension) ICD Codes: I10 - Essential (primary) hypertension Status: Chronic Plan: -BP elevated on admission at 176/80 -Continue home amlodipine and lisinopril -Vasotec 1.25 mg IV when necessary SBP greater than or equal to 170 or DBP greater than or equal to 100 or heart rate greater than 65 (5) Shoulder pain, left ICD Codes: M25.512 - Pain in left shoulder Status: Chronic Plan: -Chronic left shoulder pain -Continue home Flexeril and Percocet 5-325 mg 1 tab every 6 hours -OT consulted to assist with management (6) Chronic Medical Problems Plan: CAD: Continue Aspirin 81mg PO daily COPD: Duonebs prn, continue Advair, Combivent and albuterol inhalers Hypertension: Continue home noted pain and lisinopril Hyperlipidemia: Continue Atorvastin Depression: Continue home Celexa Dementia: Continue donezepil 10 mg by mouth at bedtime Anemia: Hemoglobin 9.6, hematocrit 29.4 on admission. No current source of bleeding suspected. Due to history of GI bleed, will monitor closely. Transfuse if hemoglobin less than 7, or less than 8 and symptomatic (7) FEN/DVT PPX/GI PPX/Nursing Orders Plan: Fluids: NS @ 150 mls/hr IV Electrolytes: Will monitor and replace as needed Nutrition: Heart-healthy diet DVT Prophylaxis: Lovenox 40mg daily GI Prophylaxis: Protonix 40mg PO daily Constipation prophylaxis: Medina-colase 1 tab PO HS PRN Medications Tylenol 650 mg by mouth every 4 hours when necessary pain 1-10 or temperature greater than 100.4F Zofran 4 mg IV push every 6 hours when necessary nausea vomiting -Vitals Q4h -Monitor I's and O's -Fall precautions -Neurochecks -Seizure precautions -baccarat dealer with telemetry with continuous vital signs -Activity bed rest -PT to assist with ambulation -OT to assess left shoulder -Case management consult to assist with discharge disposition Disposition: Hopefully in the next 2-3 days pending clinical improvement Physician Certification 2 Midnight Certification Type: Admission for Inpatient Services Order for Inpatient Services The services are ordered in accordance with Medicare regulations or non- Medicare payer requirements, as applicable. In the case of services not specified as inpatient-only, they are appropriately provided as inpatient services in accordance with the 2-midnight benchmark. Estimated LOS (days): 3 days is the estimated time the patient will need to remain in the hospital, assuming treatment plan goals are met and no additional complications. Post-Hospital Plan: Not yet determined Problem Qualifiers (1) Open wound of left foot: Qualified Codes: S91.302D - Unspecified open wound, left foot, subsequent encounter (2) Shoulder pain, left: Qualified Codes: M25.512 - Pain in left shoulder; G89.29 - Other chronic pain Aline Engle MD R2 Sep 17, 2017 00:22
[2017-09-17] MEDS ORDERED: ALBUTEROL SULFATE 90 MCG/ACT HFA 8 GM INHALER INH PRN (00:45)
[2017-09-17] MEDS ORDERED: PILL SPLITTER OTHER PRN (01:00)
[2017-09-17] MEDS: fentaNYL 25 MCG/HR PATCH T-DERMAL SCH (01:06)
[2017-09-17] MEDS ORDERED: RESP: ALBUTEROL 2.5 MG/IPRATROPIUM 0.5 MG NEB (PRN) NEB (01:45)
[2017-09-17] MEDS ORDERED: ENALAPRILAT 1.25 MG/ML VIAL IV PUSH PRN (01:45)
[2017-09-17] MEDS: SODIUM CHLOR 0.9% 1000 ML INJ 1,000 ML IV SCH ×4 (01:55→21:34)
[2017-09-17] MEDS: AZITHROMYCIN 250 MG TAB PO SCH (01:55)
[2017-09-17] MEDS: oxyCODONE/ACETAMINOPHEN 5 MG/325 MG TAB PO PRN ×4 (01:59→20:04)
[2017-09-17] MEDS ORDERED: ONDANSETRON HCL 4 MG/2 ML VIAL IV PUSH PRN (02:15)
[2017-09-17] MEDS ORDERED: ACETAMINOPHEN 325 MG TAB PO PRN (02:15)
[2017-09-17 02:51] LABS: BILIRUBIN, URINE NEG (NEG); BLOOD, URINE NEG (NEG); GLUCOSE,URINE TRACE mg/dL (NEG); KETONE, URINE NEG (NEG); NITRITE,URINE NEG (NEG); URINE COLOR LIGHT-YELLOW (YELLW/STRAW); URINE LEUKOCYTE ESTERASE NEG (NEG)
[2017-09-17] MEDS: ENOXAPARIN SODIUM 40 MG/0.4 ML SYRINGE SQ SCH ×2 (05:46→08:42)
[2017-09-17 06:54] LABS: AUTOMATED NEUTROPHIL # 17.6 TH/MM3 (1.8-7.7); BASOPHIL % 0.1 % (0.0-2.0); HEMATOCRIT 28.3 % (39.0-51.0); HEMOGLOBIN 8.9 GM/DL (13.0-17.0); LYMPH % 2.8 % (9.0-44.0); LYMPHOCYTE # 0.5 TH/MM3 (1.0-4.8); MEAN CELL VOLUME 83.8 FL (80.0-100.0); MEAN CORPUSCULAR HEMOGLOBIN 26.4 PG (27.0-34.0); MEAN CORPUSCULAR HGB CONC 31.5 % (32.0-36.0); MEAN PLATELET VOLUME 7.9 FL (7.0-11.0); MONO % 0.8 % (0.0-8.0); MONOCYTE # 0.1 TH/MM3 (0-0.9); NEUT % 96.3 % (16.0-70.0); PLATELET COUNT 423 TH/MM3 (150-450); RED BLOOD COUNT 3.38 MIL/MM3 (4.50-5.90); RED CELL DISTRIBUTION WIDTH 17.8 % (11.6-17.2); WHITE BLOOD COUNT 18.2 TH/MM3 (4.0-11.0)
[2017-09-17 07:22] LABS: ALBUMIN 2.2 GM/DL (3.4-5.0); ALKALINE PHOSPHATASE 119 U/L (45-117); ALT (GPT) 33 U/L (12-78); AST (GOT) 14 U/L (15-37); BICARBONATE 22.5 MEQ/L (21.0-32.0); BLOOD UREA NITROGEN 24 MG/DL (7-18); CALCIUM 9.1 MG/DL (8.5-10.1); CHLORIDE 106 MEQ/L (98-107); CREATININE 1.03 MG/DL (0.60-1.30); GLOMERULAR FILTRATION RATE 71 ML/MIN (>89); GLUCOSE,RANDOM 304 MG/DL (74-106); MAGNESIUM 1.8 MG/DL (1.5-2.5); PHOSPHORUS 3.1 MG/DL (2.5-4.9); SODIUM (NA) 138 MEQ/L (136-145); TOTAL BILIRUBIN ADULT 0.2 MG/DL (0.2-1.0); TOTAL PROTEIN 6.8 GM/DL (6.4-8.2)
[2017-09-17] MEDS: AZTREONAM INJ 2,000 MG in SODIUM CHLORIDE 0.9% INJ 100 ML IV SCH ×3 (08:38→23:57)
[2017-09-17] MEDS: ALBUTEROL SULFATE 90 MCG/ACT HFA 8 GM INHALER INH SCH ×4 (08:41→19:40)
[2017-09-17] MEDS: CITALOPRAM HYDROBROMIDE 20 MG TAB PO SCH (08:42)
[2017-09-17] MEDS: amLODIPine BESYLATE 5 MG TAB PO SCH ×2 (08:42→19:39)
[2017-09-17] MEDS: GABAPENTIN 300 MG CAP PO SCH ×3 (08:42→17:36)
[2017-09-17] MEDS: ASPIRIN EC 81 MG TABEC PO SCH (08:43)
[2017-09-17] MEDS: MULTIVITAMINS/MINERALS THERAPEUTIC TAB PO SCH (08:43)
[2017-09-17] MEDS: TIOTROPIUM BROMIDE 18 MCG INH INH SCH (08:43)
[2017-09-17] MEDS: BUDESONIDE-FORMOTEROL 160/4.5 MCG INHALER INH SCH ×2 (08:44→19:39)
[2017-09-17] MEDS ORDERED: PANTOPRAZOLE SOD 40 MG DELAYED RELEASE TAB PO SCH (09:00)
--- NOTE | 2017-09-17 09:31 | RADRPT ---
EXAM DATE/TIME: 09/17/2017 09:02 [facility] COMPARISON: CHEST PA & LAT, April 19, 2017, 10:55. INDICATIONS : Pneumonia. MEDICAL HISTORY : Pancreatitis. Dementia, CVA, COPD, MRSA, C-Diff SURGICAL HISTORY : Left carotid endarterectomy, thoracentesis ENCOUNTER: Initial ACUITY: 2 weeks PAIN SCORE: 0/10 LOCATION: Bilateral chest FINDINGS: Focal patchiness is noted within the right lung bases consistent with possible pneumonia. Clinical c orrelation is recommended. The heart is enlarged. CONCLUSION: 1. Focal right basilar patchiness consistent with possible pneumonia. Clinical correlation is recomm ended. 2. cardiomegaly. García Nazario MD on September 17, 2017 at 9:20 Board Certified Radiologist. This report was verified electronically.
--- NOTE | 2017-09-17 12:22 | HHI.FPPN ---
Subjective Remarks Patient admitted overnight for generalized weakness, shortness of breath, and headache. He also reports that his foot appears more red than usual. He had amputation of the hallux of his left foot in the recent past. (Дмитрий Duval MD R3) Objective Vitals Vital Signs Date Time Temp Pulse Resp B/P (MAP) Pulse Ox O2 Delivery O2 Flow Rate FiO2 09/17/17 08:00 66 09/17/17 08:00 97.0 79 18 135/63 (87) 96 09/17/17 04:00 96.3 79 16 134/60 (84) 95 09/17/17 02:59 18 09/17/17 02:06 18 09/17/17 01:02 83 09/17/17 00:00 98.9 84 17 145/65 (91) 95 09/16/17 21:38 82 16 176/80 (112) 96 Room Air 09/16/17 20:59 95 Room Air 09/16/17 20:59 19 95 09/16/17 20:51 100.8 79 16 176/80 (112) I/O 09/16/17 09/16/17 09/16/17 09/17/17 09/17/17 09/17/17 07:00 15:00 23:00 07:00 15:00 23:00 Intake Total 3250 ml Output Total 350 ml Balance 2900 ml Intake IV Total 3250 ml Output Urine Total 350 ml # Voids 1 (Дмитрий Duval MD R3) Result Diagram: 09/17/17 0607 09/17/17 0601 Objective Remarks GENERAL: Lying in bed, no distress SKIN: Wound on left left foot covered with wound vac. Erythematous skin surrounding wound, increased from his prior hospital stay. Missing the left big toe. HEENT: Normocephalic, no nasal discharge CARDIOVASCULAR: RRR, no murmurs, rubs, or gallops RESPIRATORY: CTAB, diminished at bases. GASTROINTESTINAL: Abdomen soft, non-tender, nondistended. No hepato-splenomegaly , or palpable masses. No guarding. MUSCULOSKELETAL: Missing left great toe NEUROLOGICAL: Awake and alert, fully oriented. (Дмитрий Duval MD R3) A/P Assessment and Plan 72-year-old male with multiple comorbidities that presented with severe sepsis with possible source of new right lower lobe pneumonia and left foot wound with surrounding cellulitis that is increased from his last hospital visit. Discharge Planning Pending resolution of infection, sepsis, clinically stable, white count down, afebrile (Дмитрий Duval MD R3) Attending Attestation A detailed discussion about patients admission and hospital course was held with Dr Duval this morning, EMR reviewed, patient seen,interviewed and examined , Agree with contents of note and Assessment, See Orders (Abraham Haider MD) Problem List: (1) Severe sepsis ICD Codes: A41.9 - Sepsis, unspecified organism; R65.20 - Severe sepsis without septic shock Plan: Presented with elevated white count to 20.6 and fever to 100.8. Initial lactic acid 2.1. Now afebrile, white count trended down to 18.2. Lactic acid remains elevated. Maintaining blood pressures, no hypotension. Source likely right sided hospital acquired pneumonia versus aspiration pneumonia plus foot cellulitis near his great toe amputation. Legionella/pneumococcal antigens negative. - Normal saline at 150 mls/hr, bolus as needed if hypotensive. - Started on Aztreonam and Azithromycin at admission, he has multiple antibiotic allergies. Was treated with Ertapenem at his most recent hospital visit for complicated UTI. - Consulted infectious disease, Dr. Long, who is familiar with the patient. - Consult wound physician. - Monitor vitals, repeat lactic acids until normalized, trend white count, monitor for fevers. - Follow blood and sputum cultures. - Check influenza A/B (2) HCAP (healthcare-associated pneumonia) ICD Codes: J18.9 - Pneumonia, unspecified organism Status: Acute Plan: Acute onset right lower lobe infiltrate. Aspiration versus hospital acquired pneumonia. - Started on Azithromycin and Aztreonam at admission 09/16/17. - Infectious disease consulted - Sputum culture pending - Legionella/pneumoccal antigens negative - Ensure PNA and flu vaccination prior to discharge (3) Open wound of left foot ICD Codes: S91.302A - Unspecified open wound, left foot, initial encounter Status: Acute Plan: Erythematous skin around left foot with wound vac on place. Increased surrounding cellulitis compared to prior hospital visit. - Wound care consulted, appreciate recommendations - Continue regular wound vac changes - May require surgical intervention depending on progress - Check foot x-ray and ESR - Infectious disease on board, has multiple antibiotic allergies and frequent history of c.diff colitis (4) HTN (hypertension) ICD Codes: I10 - Essential (primary) hypertension Status: Chronic Plan: -Continue home amlodipine and lisinopril -Vasotec 1.25 mg IV when necessary SBP greater than or equal to 170 or DBP greater than or equal to 100 or heart rate greater than 65 (5) Shoulder pain, left ICD Codes: M25.512 - Pain in left shoulder Status: Chronic Plan: -Chronic left shoulder pain -Continue home Flexeril and Percocet 5-325 mg 1 tab every 6 hours -OT consulted to assist with management (6) Chronic Medical Problems Status: Chronic Plan: CAD: Continue Aspirin 81mg PO daily COPD: Duonebs prn, continue Advair, Combivent and albuterol inhalers Hypertension: Continue home amlodipine pain and lisinopril Hyperlipidemia: Continue Atorvastin Depression: Continue home Celexa Dementia: Continue donezepil 10 mg by mouth at bedtime Anemia: No current source of bleeding suspected. Due to history of GI bleed, will monitor closely. Transfuse if hemoglobin less than 7, or less than 8 and symptomatic (7) FEN/DVT PPX/GI PPX/Nursing Orders Status: Acute Plan: Fluids: NS @ 150 mls/hr IV Electrolytes: Will monitor and replace as needed Nutrition: Heart-healthy diet DVT Prophylaxis: Lovenox 40mg daily (Дмитрий Duval MD R3) Problem Qualifiers (1) Open wound of left foot: Qualified Codes: S91.302D - Unspecified open wound, left foot, subsequent encounter (2) Shoulder pain, left: Qualified Codes: M25.512 - Pain in left shoulder; G89.29 - Other chronic pain Дмитрий Duval MD R3 Sep 17, 2017 12:22 Abraham Haider MD Sep 18, 2017 13:28
--- NOTE | 2017-09-17 12:40 | HHI.PR ---
Addendum to Inpatient Note Addendum Reason: Additional Documentation Additional Information I came to examine the patient. Patient refused the abdomen treated. Refuses wound physician consultation. Suggest podiatry consult. Signing off at this time. Gamal Arvizu DPM Sep 17, 2017 12:40
[2017-09-17] MEDS: LACTOBACILLUS ACIDOPHILUS TAB PO SCH ×2 (13:13→17:36)
[2017-09-17] MEDS: CYCLOBENZAPRINE HCL 10 MG TAB PO SCH ×2 (13:14→21:33)
--- NOTE | 2017-09-17 13:33 | EKG ---
Date Performed: 09/16/2017 Time Performed: 21:02:15 PTAGE: 72 years EKG: ECTOPIC ATRIAL RHYTHM RIGHT BUNDLE BRANCH BLOCK ABNORMAL ECG Compared to prior tracing no s ignificant change PREVIOUS TRACING DOCTOR: Jorge Jenkins Interpretating Date/Time 09/17/2017 13:30:44
--- NOTE | 2017-09-17 15:07 | RADRPT ---
EXAM DATE/TIME: 09/17/2017 14:28 [facility] COMPARISON: FOOT LEFT LIMITED (2VWS), July 14, 2017, 1:44. INDICATIONS : Left foot pain. MEDICAL HISTORY : Pancreatitis. Dementia, CVA, COPD, MRSA, C-Diff SURGICAL HISTORY : Left carotid endarterectomy, thoracentesis. 1st toe removal. ENCOUNTER: Subsequent ACUITY: 2 weeks PAIN SCORE: 7/10 LOCATION: Left foot. FINDINGS: There is resection of the first toe and first metatarsal including the medial cuneiform. There is no bony destruction or periosteal reaction to suggest osteomyelitis. Osseous structures are osteopenic. CONCLUSION: 1. Postsurgical changes as above. 2. No plain film findings of osteomyelitis. If there is necessity for further evaluation contrast-enh anced MRI is recommended. Yo Mcbride MD on September 17, 2017 at 15:05 Board Certified Radiologist. This report was verified electronically.
--- NOTE | 2017-09-17 18:36 | MB ---
cc: CORDELL LONG MD DATE OF CONSULTATION 09/17/[address] Engle REASON FOR CONSULTATION Right lower lobe pneumonia. History of C-difficile. Multiple antibiotic allergies. Help with management. HISTORY OF PRESENT ILLNESS This is a 72 year old white male who is known to me from recent hospital admission. The patient was discharged from the hospital on September 12 after treatment for a large left pleural effusion and UTI due to Klebsiella pneumonia. Because of multiple antibiotic allergies, the patient had restriction on the type of antibiotics which could be used and therefore he was treated with ertapenem. He was discharged from the hospital on September 12. The patient states that while at home he developed fever and when the medics came his oxygen saturation was low. He underwent workup and was noted to have right lower lung infiltrate which is new compared to when he was in the hospital recently. This consultation is requested for antibiotic management. The patient has been started on antibiotics. The patient states that by the time he got to the hospital, his temperature was better and his oxygen saturation was improved. He had low grade fever of 100.8 degrees and his white count was elevated at 20.6. He was admitted to the hospital and started on antibiotics. The patient has had history of C-difficile colitis. His other significant medical history is well outlined in recent medical record because of his frequent hospitalizations. He has no fever. He is currently coughing up yellow sputum. Sputum sample was sent but it had mostly oropharyngeal contamination. Gram stain showed many white cells. The patient states that he feels a little tightness in the right chest when he takes a deep breath, but besides that he denies pleuritic chest pain. Urine Legionella and streptococcal antigen tests are negative. Blood culture has no growth in one day. Influenza testing is negative. The patient states that he feels fine currently. PAST MEDICAL HISTORY 1. COPD, 2. Hypertension, 3. Chronic pain, 4. Arthritis, 5. Spinal stenosis 6. History of left hallux amputation 7. History of the metatarsal debridements 8. Appendectomy, 9. Cataract surgery 10. Back surgery 11. Left pleural effusion. ALLERGIES PENICILLIN METRONIDAZOLE MEPERIDINE MORPHINE ERYTHROMYCIN SULFA. LEVAQUIN - the patient expresses refusal to use Levaquin because i5 is associated with C-difficile. SOCIAL HISTORY The patient is . No tobacco or alcohol. Denies illicit drugs. FAMILY HISTORY Noncontributory. REVIEW OF SYSTEMS Pertinent as mentioned above in history of present illness. PHYSICAL EXAMINATION GENERAL: This is a pleasant well-developed male who is in no acute distress. He is awake and alert and oriented. VITAL SIGNS: Temperature of 97.5, BP 144/70, respirations 18, heart rate 79. HEENT: Head is atraumatic. Extraocular movements grossly intact, pupils reactive to light. No icterus. Oropharynx moist mucosa without lesions. NECK: Supple without adenopathy. LUNGS: Rhonchi at the right base with mild end-expiratory wheezing at the right base. Slight decreased breath sounds on the left. HEART: Normal S1-S2. ABDOMEN: Bowel sounds present, soft, nontender. RECTAL: Not performed. EXTREMITIES: The left foot has an ulceration in the area where surgical resection was done at the left hallux. This is a clean based ulcer. NEUROLOGIC: Nonfocal. SKIN: No rash PSYCHIATRIC: The patient calm and cooperative. LABORATORY DATA WBC 18.2, platelets 423, 96% neutrophils, hemoglobin 8.9. Creatinine 1.03, BUN 24, sodium 138. LFTs normal. IMPRESSION 1. Right lower lobe pneumonia. 2. Multiple antibiotic allergies. 3. Leukocytosis and fever secondary to pneumonia. DIAGNOSIS This patient presents with pneumonia. The left foot wound appears intact. RECOMMENDATIONS 1. Try to obtain a better sputum culture. I will order a sputum and request for sputum collection. Copy to be given to the patient so he can put any significant sputum expectoration in there for culture. 2. Continue Aztreonam 3. Continue Zithromax 4. Monitor white blood cell count and temperature. Thank you for this consultation. I will follow the patient's progress along with you and make further recommendations on followup. Cordell Long MD FD/ /4:33 PM /6:09 PM
[2017-09-17] MEDS: ATORVASTATIN 40 MG TAB PO SCH (19:38)
[2017-09-17] MEDS: DOCUSATE SODIUM 50 MG/SENNA 8.6 MG TAB PO SCH (19:38)
[2017-09-17] MEDS: DONEPEZIL HCL 5 MG TAB PO SCH (19:39)
[2017-09-17] MEDS: LISINOPRIL 20 MG TAB PO SCH (19:39)
[2017-09-17] MEDS: LATANOPROST 0.005% OPHT SOLN 2.5 ML BTL EACH EYE SCH (19:39)
[2017-09-17] MEDS ORDERED: NON-FORMULARY DRUG (Travoprost Opth Drops (Travatan Z Opth Drops) 1 DROP) EACH EYE SCH (21:00)
[2017-09-18] VITALS (8 sets, daily range): BP systolic 155–180; BP diastolic 67–84; PULSE 72–82; RESP 16–20; TEMP 95.3–97; O2SAT 95–98
[2017-09-18] MEDS: AZITHROMYCIN 250 MG TAB PO SCH (01:54)
[2017-09-18] MEDS: oxyCODONE/ACETAMINOPHEN 5 MG/325 MG TAB PO PRN ×4 (01:55→19:52)
[2017-09-18] MEDS: SODIUM CHLOR 0.9% 1000 ML INJ 1,000 ML IV SCH ×2 (04:40→11:20)
[2017-09-18 05:31] LABS: HEMATOCRIT 25.7 % (39.0-51.0); HEMOGLOBIN 8.6 GM/DL (13.0-17.0); MEAN CELL VOLUME 82.4 FL (80.0-100.0); MEAN CORPUSCULAR HEMOGLOBIN 27.6 PG (27.0-34.0); MEAN CORPUSCULAR HGB CONC 33.4 % (32.0-36.0); PLATELET COUNT 406 TH/MM3 (150-450); RED BLOOD COUNT 3.12 MIL/MM3 (4.50-5.90); RED CELL DISTRIBUTION WIDTH 17.9 % (11.6-17.2); WHITE BLOOD COUNT 14.5 TH/MM3 (4.0-11.0)
[2017-09-18 05:51] LABS: BICARBONATE 25.4 MEQ/L (21.0-32.0); CALCIUM 8.8 MG/DL (8.5-10.1); CREATININE 0.65 MG/DL (0.60-1.30)
[2017-09-18] MEDS: CYCLOBENZAPRINE HCL 10 MG TAB PO SCH ×3 (06:15→22:27)
[2017-09-18] MEDS: GABAPENTIN 300 MG CAP PO SCH ×3 (07:45→16:13)
[2017-09-18] MEDS: AZTREONAM INJ 2,000 MG in SODIUM CHLORIDE 0.9% INJ 100 ML IV SCH ×2 (07:45→16:08)
[2017-09-18] MEDS: CITALOPRAM HYDROBROMIDE 20 MG TAB PO SCH (07:45)
[2017-09-18] MEDS: amLODIPine BESYLATE 5 MG TAB PO SCH ×2 (07:46→19:53)
[2017-09-18] MEDS: ASPIRIN EC 81 MG TABEC PO SCH (07:46)
[2017-09-18] MEDS: MULTIVITAMINS/MINERALS THERAPEUTIC TAB PO SCH (07:46)
[2017-09-18] MEDS: LACTOBACILLUS ACIDOPHILUS TAB PO SCH ×3 (07:46→16:13)
[2017-09-18] MEDS: BUDESONIDE-FORMOTEROL 160/4.5 MCG INHALER INH SCH ×2 (09:00→19:59)
[2017-09-18] MEDS: TIOTROPIUM BROMIDE 18 MCG INH INH SCH (09:00)
[2017-09-18] MEDS: ALBUTEROL SULFATE 90 MCG/ACT HFA 8 GM INHALER INH SCH ×4 (09:00→19:54)
--- NOTE | 2017-09-18 14:40 | HHI.IDPN ---
Note Infectious Disease Note Patient feels better. Denies SOB. Afebrile. No cough. Sputum culture pending. PAST MEDICAL HISTORY 1. COPD, 2. Hypertension, 3. Chronic pain, 4. Arthritis, 5. Spinal stenosis 6. History of left hallux amputation 7. History of the metatarsal debridements 8. Appendectomy, 9. Cataract surgery 10. Back surgery 11. Left pleural effusion. ALLERGIES PENICILLIN METRONIDAZOLE MEPERIDINE MORPHINE ERYTHROMYCIN SULFA. LEVAQUIN - the patient expresses refusal to use Levaquin because it is associated with C-difficile. SOCIAL HISTORY The patient is . No tobacco or alcohol. Denies illicit drugs. OBJECTIVE: Vital Signs Date Time Temp Pulse Resp B/P (MAP) Pulse Ox O2 Delivery O2 Flow Rate FiO2 09/18/17 12:00 96.4 77 16 155/69 (97) 97 09/18/17 09:28 98 Nasal Cannula 2.00 09/18/17 08:00 80 09/18/17 08:00 96.1 82 18 180/84 (116) 95 09/18/17 04:56 96.9 72 18 167/78 (107) 96 09/18/17 02:55 18 09/18/17 00:39 97.0 82 20 156/76 (102) 97 09/17/17 20:45 97.7 80 18 160/77 (104) 98 09/17/17 20:14 78 09/17/17 16:00 97.5 79 17 144/70 (94) 98 Laboratory Tests Test 09/16/17 20:31 09/17/17 06:07 09/18/17 05:13 White Blood Count 20.6 TH/MM3 18.2 TH/MM3 14.5 TH/MM3 Red Blood Count 3.53 MIL/MM3 3.38 MIL/MM3 3.12 MIL/MM3 Hemoglobin 9.6 GM/DL 8.9 GM/DL 8.6 GM/DL Hematocrit 29.4 % 28.3 % 25.7 % Mean Corpuscular Volume 83.4 FL 83.8 FL 82.4 FL Mean Corpuscular Hemoglobin 27.1 PG 26.4 PG 27.6 PG Mean Corpuscular Hemoglobin Concent 32.5 % 31.5 % 33.4 % Red Cell Distribution Width 18.4 % 17.8 % 17.9 % Platelet Count 563 TH/MM3 423 TH/MM3 406 TH/MM3 Mean Platelet Volume 7.2 FL 7.9 FL 7.0 FL Neutrophils (%) (Auto) 81.1 % 96.3 % Lymphocytes (%) (Auto) 10.1 % 2.8 % Monocytes (%) (Auto) 6.2 % 0.8 % Eosinophils (%) (Auto) 2.2 % 0.0 % Basophils (%) (Auto) 0.4 % 0.1 % Neutrophils # (Auto) 16.7 TH/MM3 17.6 TH/MM3 Lymphocytes # (Auto) 2.1 TH/MM3 0.5 TH/MM3 Monocytes # (Auto) 1.3 TH/MM3 0.1 TH/MM3 Eosinophils # (Auto) 0.5 TH/MM3 0.0 TH/MM3 Basophils # (Auto) 0.1 TH/MM3 0.0 TH/MM3 CBC Comment DIFF FINAL DIFF FINAL Differential Comment Erythrocyte Sedimentation Rate 66 mm/hr Laboratory Tests Test 09/16/17 20:31 09/16/17 20:33 09/16/17 23:23 09/17/17 06:01 Blood Urea Nitrogen 25 MG/DL 24 MG/DL Creatinine 1.03 MG/DL 1.03 MG/DL Random Glucose 193 MG/DL 304 MG/DL Total Protein 7.2 GM/DL 6.8 GM/DL Albumin 2.7 GM/DL 2.2 GM/DL Calcium Level 9.7 MG/DL 9.1 MG/DL Alkaline Phosphatase 124 U/L 119 U/L Aspartate Amino Transf (AST/SGOT) 19 U/L 14 U/L Alanine Aminotransferase (ALT/SGPT) 36 U/L 33 U/L Total Bilirubin 0.2 MG/DL 0.2 MG/DL Sodium Level 139 MEQ/L 138 MEQ/L Potassium Level 4.6 MEQ/L 5.0 MEQ/L Chloride Level 106 MEQ/L 106 MEQ/L Carbon Dioxide Level 25.2 MEQ/L 22.5 MEQ/L Anion Gap 8 MEQ/L 10 MEQ/L Estimat Glomerular Filtration Rate 71 ML/MIN 71 ML/MIN Lactic Acid Level 2.1 mmol/L 2.2 mmol/L Phosphorus Level 3.1 MG/DL Magnesium Level 1.8 MG/DL Test 09/18/17 05:13 Blood Urea Nitrogen 22 MG/DL Creatinine 0.65 MG/DL Random Glucose 140 MG/DL Calcium Level 8.8 MG/DL Sodium Level 140 MEQ/L Potassium Level 4.6 MEQ/L Chloride Level 107 MEQ/L Carbon Dioxide Level 25.4 MEQ/L Anion Gap 8 MEQ/L Estimat Glomerular Filtration Rate 120 ML/MIN Lactic Acid Level 1.0 mmol/L Microbiology Date/Time Source Procedure Growth Status 09/16/17 20:35 Blood Peripheral Aerobic Blood Culture - Preliminary NO GROWTH IN 2 DAYS Resulted 09/16/17 20:35 Blood Peripheral Anaerobic Blood Culture - Preliminary NO GROWTH IN 2 DAYS Resulted 09/16/17 20:30 Blood Peripheral Aerobic Blood Culture - Preliminary NO GROWTH IN 2 DAYS Resulted 09/16/17 20:30 Blood Peripheral Anaerobic Blood Culture - Preliminary NO GROWTH IN 2 DAYS Resulted 09/17/17 18:38 Sputum Expectorated Sputum Gram Stain - Final Resulted 09/17/17 18:38 Sputum Expectorated Sputum Sputum Culture - Preliminary IMMATURE GROWTH - REINCUBATE Resulted 09/17/17 14:15 Nasal Aspirate Influenza Types A,B Antigen (DARON) - Final NEGATIVE FOR FLU A AND B ANTIGEN.... Complete 09/17/17 09:48 Sputum Expectorated Sputum Gram Stain - Final Resulted 09/17/17 09:48 Sputum Expectorated Sputum Sputum Culture - Preliminary HEAVY GROWTH NORMAL RESPIRATORY SAIRA... Resulted 09/17/17 02:38 Urine Clean Catch Legionella Antigen - Final PRESUMPTIVE NEGATIVE FOR LEGIONELLA P... Complete 09/17/17 02:38 Urine Clean Catch Streptococcus pneumoniae Antigen (M - Final PRESUMPTIVE NEGATIVE FOR STREPTOCOCCU... Complete PHYSICAL EXAMINATION GENERAL: No acute distress. He is awake and alert and oriented. HEENT: No icterus. Oropharynx moist mucosa without lesions. NECK: Supple without adenopathy. LUNGS: Rhonchi at the right base. Slight decreased breath sounds on the left. HEART: Normal S1-S2. ABDOMEN: Bowel sounds present, soft, nontender. EXTREMITIES: The left foot has an ulceration clean. NEUROLOGIC: Nonfocal. SKIN: No rash PSYCHIATRIC: Calm and cooperative. IMPRESSION 1. Right lower lobe pneumonia. 2. Multiple antibiotic allergies. 3. Leukocytosis and fever secondary to pneumonia. RECOMMENDATIONS 1. Monitor sputum culture 2. Continue Aztreonam 3. Continue Zithromax 4. Monitor white blood cell count and temperature. Cullen Long MD Sep 18, 2017 14:40
--- NOTE | 2017-09-18 15:00 | PD.WCN.NOT ---
Wound Consult Additional Information: Late entry from 09/17/2017 from 1543: Patient not seen.Spoke with [employer] Eileen Floyd regarding wound VAC. Eileen to remove wound VAC dressing and assess wound to L foot. Will apply moist to dry dressing after removal and assessment. Spoke with Doctor Дмитрий Duval MD R3 regarding wound VAC removal and moist to dry dressing to be placed by nurse on floor. Dressing can be done daily until assessed by Podiatry. [facility] Judd [facility] Sep 18, 2017 15:00
--- NOTE | 2017-09-18 15:00 | PD.WCN.NOT ---
Wound Consult Additional Information: Late entry from 09/17/2017 from 1543: Patient not seen.Spoke with FRAUD REPRESENTATIVE Eileen Floyd regarding wound VAC. Eileen to remove wound VAC dressing and assess wound to L foot. Will apply moist to dry dressing after removal and assessment. Spoke with Doctor Дмитрий Duval MD R3 regarding wound VAC removal and moist to dry dressing to be placed by nurse on floor. Dressing can be done daily until assessed by Podiatry. [facility] Sep 18, 2017 15:00
--- NOTE | 2017-09-18 15:00 | PD.WCN.NOT ---
Wound Consult Additional Information: Late entry from 09/17/2017 from 1543: Patient not seen.Spoke with MARKETING COMMUNICATIONS SPECIALIST Eileen Floyd regarding wound VAC. Eileen to remove wound VAC dressing and assess wound to L foot. Will apply moist to dry dressing after removal and assessment. Spoke with Doctor Дмитрий Duval MD R3 regarding wound VAC removal and moist to dry dressing to be placed by nurse on floor. Dressing can be done daily until assessed by Podiatry. [facility] Judd [facility] Sep 18, 2017 15:00
--- NOTE | 2017-09-18 15:55 | HHI.FPPN ---
Subjective Remarks No acute events. No fevers overnight. White count trended down to 14.5 from 20.6 at admission. Lactic acid back to normal. On 2L nasal cannula without respiratory distress. Cough decreasing. Sputum turned from white to yellow. No chest pain. No abdominal pain, nausea, vomiting, diarrhea. No calf tenderness or swelling. His foot is no longer red, states he believes it was red from overuse the day before admission. (Дмитрий Duval MD R3) Objective Vitals Vital Signs Date Time Temp Pulse Resp B/P (MAP) Pulse Ox O2 Delivery O2 Flow Rate FiO2 09/18/17 12:00 96.4 77 16 155/69 (97) 97 09/18/17 09:28 98 Nasal Cannula 2.00 09/18/17 08:00 80 09/18/17 08:00 96.1 82 18 180/84 (116) 95 09/18/17 04:56 96.9 72 18 167/78 (107) 96 09/18/17 02:55 18 09/18/17 00:39 97.0 82 20 156/76 (102) 97 09/17/17 20:45 97.7 80 18 160/77 (104) 98 09/17/17 20:14 78 09/17/17 16:00 97.5 79 17 144/70 (94) 98 I/O 09/17/17 09/17/17 09/17/17 09/18/17 09/18/17 09/18/17 07:00 15:00 23:00 07:00 15:00 23:00 Intake Total 3250 ml 100 ml 4380 ml 1100 ml 100 ml Output Total 350 ml 2150 ml 1700 ml 1275 ml Balance 2900 ml 100 ml 2230 ml -600 ml -1175 ml Intake Oral 2280 ml IV Total 3250 ml 100 ml 2100 ml 1100 ml 100 ml Output Urine Total 350 ml 2150 ml 1700 ml 1275 ml # Voids 1 # Bowel Movements 4 1 (Дмитрий Duval MD R3) Result Diagram: 09/18/1751209/18/17512 Objective Remarks GENERAL: Lying in bed, no distress SKIN: Left foot erythema and swelling now resolved, no drainage, covered in wrap and wet-to-dry dressing HEENT: Normocephalic, no nasal discharge CARDIOVASCULAR: RRR, no murmurs, rubs, or gallops RESPIRATORY: Wheezing and rhonchi bilaterally, worse in bases GASTROINTESTINAL: Abdomen soft, non-tender, nondistended. No hepato-splenomegaly , or palpable masses. No guarding. MUSCULOSKELETAL: Missing left great toe NEUROLOGICAL: Awake and alert, fully oriented. (Дмитрий Duval MD R3) A/P Assessment and Plan 72-year-old male with multiple comorbidities that presented with severe sepsis with possible source of new right lower lobe pneumonia and left foot wound with surrounding cellulitis that is increased from his last hospital visit. Discharge Planning Pending resolution of infection, sepsis, clinically stable, white count down, afebrile (Дмитрий Duval MD R3) Attending Attestation Medical rounds were performed with Dr Kate Duval, Patients admission and hospital course were discussed in detail, Patient was seen and examined, Agree with the contents of this note, See Orders. (Abraham Haider MD) Problem List: (1) HCAP (healthcare-associated pneumonia) ICD Codes: J18.9 - Pneumonia, unspecified organism Status: Acute Plan: Acute onset right lower lobe infiltrate. Aspiration versus hospital acquired pneumonia. Blood cultures negative. - Started on Azithromycin and Aztreonam at admission 09/16/17. - Infectious disease consulted and following - Sputum culture pending - Legionella/pneumoccal antigens negative - Ensure PNA and flu vaccination prior to discharge - Scheduled duoneb treatments (2) Open wound of left foot ICD Codes: S91.302A - Unspecified open wound, left foot, initial encounter Status: Chronic Plan: Erythematous skin around left foot with wound vac on place. Increased redness at admission but now resolved, likely from overuse of foot versus cellulitis. Foot x-ray now suggestive of osteomyelitis. ESR is 66. - Wound care consulted, appreciate recommendations. - Wet to dry dressing changes - Infectious disease on board, has multiple antibiotic allergies and frequent history of c.diff colitis. - Not likely to be new foot infection at this point - Continue to work with PT and OT (3) HTN (hypertension) ICD Codes: I10 - Essential (primary) hypertension Status: Chronic Plan: -Continue home amlodipine and lisinopril -Vasotec 1.25 mg IV when necessary SBP greater than or equal to 170 or DBP greater than or equal to 100 or heart rate greater than 65 (4) Shoulder pain, left ICD Codes: M25.512 - Pain in left shoulder Status: Chronic Plan: -Chronic left shoulder pain -Continue home Flexeril and Percocet 5-325 mg 1 tab every 6 hours -OT consulted to assist with management (5) Chronic Medical Problems Status: Chronic Plan: CAD: Continue Aspirin 81mg PO daily COPD: Duonebs prn, continue Advair, Combivent and albuterol inhalers Hypertension: Continue home amlodipine pain and lisinopril Hyperlipidemia: Continue Atorvastin Depression: Continue home Celexa Dementia: Continue donezepil 10 mg by mouth at bedtime Anemia: No current source of bleeding suspected. Due to history of GI bleed, will monitor closely. Transfuse if hemoglobin less than 7, or less than 8 and symptomatic (6) FEN/DVT PPX/GI PPX/Nursing Orders Status: Acute Plan: Fluids: PO fluids Electrolytes: Will monitor and replace as needed Nutrition: Regular diet DVT Prophylaxis: Lovenox 40mg daily (Дмитрий Duval MD R3) Problem Qualifiers (1) Open wound of left foot: Qualified Codes: S91.302D - Unspecified open wound, left foot, subsequent encounter (2) Shoulder pain, left: Qualified Codes: M25.512 - Pain in left shoulder; G89.29 - Other chronic pain Дмитрий Duval MD R3 Sep 18, 2017 15:55 Abraham Haider MD Sep 23, 2017 14:03
[2017-09-18] MEDS: RESP: ALBUTEROL 2.5 MG/IPRATROPIUM 0.5 MG NEB (SCH) NEB ×2 (16:18→20:14)
--- NOTE | 2017-09-18 19:40 | MB ---
cc: RAVEN HERMAN DATE OF CONSULTATION: 09/18/2017. REASON FOR CONSULTATION: Left foot ulceration HISTORY OF PRESENT ILLNESS: MR. Garcia is a patient well-known to my partner, Dr. Linsey Fernando, who was admitted for right sided pneumonia and sepsis but did have a partial first ray amputation of his left foot as well as multiple stage 2 ulcerations of his left foot. The patient had the separation in July and was discharged home with home health and a wound VAC. The patient states he is not able to follow up with Dr. Fernando in the office as he was admitted into the hospital two more times subsequently since his surgery. He denies any concerns with his wounds. He denies any nausea or vomiting, fevers, headaches or chills. He states that he actually feels quite well but is concerned to leave the hospital as every time he leaves, he ends up returning shortly after discharge. PAST MEDICAL HISTORY: His past medical history includes: 1. COPD. 2. Dementia. 3. History of C. Difficile. 4. Osteomyelitis. 5. History of TIA. 6. Spinal stenosis. 7. Hypertension. 8. Glaucoma. 9. Neurogenic bladder. 10. Dementia. 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 12. Chronic hip pain. 13. Diverticulosis. PAST SURGICAL HISTORY: 1. Left metatarsal amputation with debridement. 2. Appendectomy. 3. Three back surgeries. 4. Cataract surgeries. ALLERGIES: 1. SULFA. 2. METRONIDAZOLE. 3. INSULIN. 4. SULFAMETHOXAZOLE. 5. TRIMETHOPRIM. 6. ERYTHROMYCIN. 7. MRI CONTACT DYE. 8. MEPERIDINE. 9. MORPHINE. 10. ADHESIVES. MEDICATIONS Please see the list. PHYSICAL EXAMINATION: VITAL SIGNS: Temperature is 95.3 with a T-max of 98.9, pulse 77, respiratory rate is 16, blood pressure is 160/67, pulse oximetry is 95% 02 on room air. On physical exam, the right foot is unremarkable. The left foot has diminished pulses and decreased protective sensation. There is a 1 cm x 1 cm x 0 fibrogranular wound on the lateral aspect of the lateral malleolus measuring 0.5 x 0.5 x 0.5 fibroglandular wound on the lateral aspect of the fifth metatarsal base and there is a 7 cm x 3 cm x 0 granular wound on the medial aspect of the foot where the first ray was amputated. All three wound sites are without odor or drainage. No erythema. No deep probing or exposed bone. LABS: White count is 14.5 down from 20.6, hemoglobin 8.6, hematocrit 25.7, platelets 407,000. Sodium 140, potassium 4.6, chloride 107, carbon dioxide 25.4, BUN 22, glucose 140. Blood cultures are negative x2 days. ASSESSMENT AND PLAN: 1. Left foot stage II ulcerations x3 noninfected. - Wound care orders placed for nursing staff. - Replace wound VAC to the medial wound and begin treating with Santyl to the lateral wounds. - Avoid pressure, particularly to the left lateral ankle, use pillows to prop the calves up and avoid pressure to the heels and lateral foot. - Continue to monitor while in-house. The patient to follow up with Dr. Linsey Fernando at the time of discharge or with Dr. Clayton Brito at the time of discharge, as Dr. Fernando is currently on a family medical leave. Please re-consult podiatry if any concerns or questions. Raven HUERTA/BRIJESH /6:29 PM /7:32 PM SAL
[2017-09-18] MEDS: LISINOPRIL 20 MG TAB PO SCH (19:52)
[2017-09-18] MEDS: DONEPEZIL HCL 5 MG TAB PO SCH (19:52)
[2017-09-18] MEDS: ATORVASTATIN 40 MG TAB PO SCH (19:52)
[2017-09-18] MEDS: DOCUSATE SODIUM 50 MG/SENNA 8.6 MG TAB PO SCH (19:55)
[2017-09-18] MEDS: LATANOPROST 0.005% OPHT SOLN 2.5 ML BTL EACH EYE SCH (19:59)
[2017-09-19] VITALS: BP 152/69; PULSE 81; RESP 20; TEMP 97.8; O2SAT 97
[2017-09-19] MEDS: AZTREONAM INJ 2,000 MG in SODIUM CHLORIDE 0.9% INJ 100 ML IV SCH ×3 (00:58→16:02)
[2017-09-19] MEDS: AZITHROMYCIN 250 MG TAB PO SCH (02:22)
[2017-09-19] MEDS: oxyCODONE/ACETAMINOPHEN 5 MG/325 MG TAB PO PRN ×4 (02:22→17:55)
[2017-09-19] MEDS: ENOXAPARIN SODIUM 40 MG/0.4 ML SYRINGE SQ SCH (05:37)
[2017-09-19] MEDS: CYCLOBENZAPRINE HCL 10 MG TAB PO SCH ×3 (05:38→21:57)
[2017-09-19] MEDS: RESP: ALBUTEROL 2.5 MG/IPRATROPIUM 0.5 MG NEB (SCH) NEB ×4 (07:45→19:59)
[2017-09-19 07:47] VITALS: O2SAT 97
[2017-09-19 08:00] VITALS: BP 160/74; PULSE 82; RESP 16; TEMP 97.8; O2SAT 98
[2017-09-19] MEDS: BUDESONIDE-FORMOTEROL 160/4.5 MCG INHALER INH SCH ×2 (08:33→20:56)
[2017-09-19] MEDS: TIOTROPIUM BROMIDE 18 MCG INH INH SCH (08:34)
[2017-09-19] MEDS: COLLAGENASE OINT 30 GM TUBE TOPICAL SCH (08:35)
[2017-09-19] MEDS: LACTOBACILLUS ACIDOPHILUS TAB PO SCH ×3 (08:35→17:55)
[2017-09-19] MEDS: ASPIRIN EC 81 MG TABEC PO SCH (08:35)
[2017-09-19] MEDS: GABAPENTIN 300 MG CAP PO SCH ×3 (08:35→17:55)
[2017-09-19] MEDS: CITALOPRAM HYDROBROMIDE 20 MG TAB PO SCH (08:36)
[2017-09-19] MEDS: amLODIPine BESYLATE 5 MG TAB PO SCH ×2 (08:36→20:42)
[2017-09-19] MEDS: MULTIVITAMINS/MINERALS THERAPEUTIC TAB PO SCH (08:36)
[2017-09-19] MEDS: ALBUTEROL SULFATE 90 MCG/ACT HFA 8 GM INHALER INH SCH ×4 (08:38→20:54)
[2017-09-19 09:00] LABS: HEMOGLOBIN 8.9 GM/DL (13.0-17.0); MEAN CELL VOLUME 82.8 FL (80.0-100.0); MEAN CORPUSCULAR HEMOGLOBIN 26.4 PG (27.0-34.0); MEAN CORPUSCULAR HGB CONC 31.9 % (32.0-36.0); MEAN PLATELET VOLUME 7.7 FL (7.0-11.0); PLATELET COUNT 401 TH/MM3 (150-450); RED BLOOD COUNT 3.39 MIL/MM3 (4.50-5.90); RED CELL DISTRIBUTION WIDTH 18.5 % (11.6-17.2); WHITE BLOOD COUNT 11.5 TH/MM3 (4.0-11.0)
[2017-09-19 09:13] LABS: BICARBONATE 20.3 MEQ/L (21.0-32.0); CALCIUM 8.7 MG/DL (8.5-10.1); CREATININE 0.54 MG/DL (0.60-1.30)
[2017-09-19 12:00] VITALS: BP 132/71; PULSE 84; RESP 17; TEMP 96.8; O2SAT 98
--- NOTE | 2017-09-19 12:53 | HHI.FPPN ---
Subjective Remarks Patient doing well this morning. Afebrile. White count continuing to trend down , now down to 11.5. Breathing improved, has chronic cough and sputum but nothing acute. No chest pain. No shortness of breath. No abdominal pain, nausea , vomiting, diarrhea. No calf tenderness. Foot redness is gone. Objective Vitals Vital Signs Date Time Temp Pulse Resp B/P (MAP) Pulse Ox O2 Delivery O2 Flow Rate FiO2 09/19/17 08:00 97.8 82 16 160/74 (102) 98 09/19/17 07:47 97 21 09/19/17 00:00 97.8 81 20 152/69 (96) 97 09/18/17 20:16 96 09/18/17 19:00 96.0 79 17 173/75 (107) 97 09/18/17 16:00 95.3 77 16 160/67 (98) 95 I/O 09/18/17 09/18/17 09/18/17 09/19/17 09/19/17 09/19/17 07:00 15:00 23:00 07:00 15:00 23:00 Intake Total 1100 ml 100 ml 2090 ml 120 ml Output Total 1700 ml 1275 ml 3700 ml 1550 ml Balance -600 ml -1175 ml -1610 ml -1430 ml Intake Oral 750 ml 120 ml IV Total 1100 ml 100 ml 1340 ml Output Urine Total 1700 ml 1275 ml 3700 ml 1550 ml # Bowel Movements 1 1 Result Diagram: 09/19/17 0710 09/19/17 0710 Objective Remarks GENERAL: Sitting up in bed, no distress SKIN: Left foot with wound vac in place, wrapped, erythema gone HEENT: Normocephalic, no nasal discharge CARDIOVASCULAR: RRR, no murmurs, rubs, or gallops RESPIRATORY: Wheezing and rhonchi bilaterally in the bases but improved GASTROINTESTINAL: Abdomen soft, non-tender, nondistended. No hepato-splenomegaly , or palpable masses. No guarding. MUSCULOSKELETAL: Missing left great toe NEUROLOGICAL: Awake and alert, fully oriented. A/P Assessment and Plan 72-year-old male with multiple comorbidities that presented with severe sepsis with possible source of new right lower lobe pneumonia and left foot wound with surrounding cellulitis that is increased from his last hospital visit. Discharge Planning Pending resolution of infection, sepsis, clinically stable, white count down, afebrile, final sputum culture results and recommendations from infectious disease Problem List: (1) HCAP (healthcare-associated pneumonia) ICD Codes: J18.9 - Pneumonia, unspecified organism Status: Acute Plan: Acute onset right lower lobe infiltrate. Aspiration versus hospital acquired pneumonia. Blood cultures negative. - Started on Azithromycin and Aztreonam at admission 09/16/17. - Infectious disease consulted and following - Sputum culture pending - Legionella/pneumoccal antigens negative - Ensure PNA and flu vaccination prior to discharge - Scheduled duoneb treatments (2) Open wound of left foot ICD Codes: S91.302A - Unspecified open wound, left foot, initial encounter Status: Chronic Plan: Erythematous skin around left foot with wound vac on place. Increased redness at admission but now resolved, likely from overuse of foot versus cellulitis. Foot x-ray not suggestive of osteomyelitis. - Wound care consulted, appreciate recommendations. - Podiatry on board, appreciate recommendations - Wound vac in place, regular changes - Treat lateral wounds with Santyl - Use pillows to prop up legs and offset pressure - Infectious disease on board, has multiple antibiotic allergies and frequent history of c.diff colitis. - Not likely to be new foot infection at this point - Continue to work with PT and OT - Follow up with podiatry at discharge (3) HTN (hypertension) ICD Codes: I10 - Essential (primary) hypertension Status: Chronic Plan: -Continue home amlodipine and lisinopril -Vasotec 1.25 mg IV when necessary SBP greater than or equal to 170 or DBP greater than or equal to 100 or heart rate greater than 65 (4) Shoulder pain, left ICD Codes: M25.512 - Pain in left shoulder Status: Chronic Plan: -Chronic left shoulder pain -Continue home Flexeril and Percocet 5-325 mg 1 tab every 6 hours -OT consulted to assist with management (5) Chronic Medical Problems Status: Chronic Plan: CAD: Continue Aspirin 81mg PO daily COPD: Duonebs prn, continue Advair, Combivent and albuterol inhalers Hypertension: Continue home amlodipine pain and lisinopril Hyperlipidemia: Continue Atorvastin Depression: Continue home Celexa Dementia: Continue donezepil 10 mg by mouth at bedtime Anemia: No current source of bleeding suspected. Due to history of GI bleed, will monitor closely. Transfuse if hemoglobin less than 7, or less than 8 and symptomatic (6) FEN/DVT PPX/GI PPX/Nursing Orders Status: Acute Plan: Fluids: PO fluids Electrolytes: Will monitor and replace as needed Nutrition: Regular diet DVT Prophylaxis: Lovenox 40mg daily Problem Qualifiers (1) Open wound of left foot: Qualified Codes: S91.302D - Unspecified open wound, left foot, subsequent encounter (2) Shoulder pain, left: Qualified Codes: M25.512 - Pain in left shoulder; G89.29 - Other chronic pain Дмитрий Duval MD R3 Sep 19, 2017 12:53
[2017-09-19] MEDS: oxyCODONE/ACETAMINOPHEN 10 MG/325 MG TAB PO PRN ×2 (15:03→20:44)
[2017-09-19 16:00] VITALS: BP 157/68; PULSE 96; RESP 17; TEMP 97.9; O2SAT 99
--- NOTE | 2017-09-19 16:34 | HHI.IDPN ---
Subjective Subjective Remarks X cover for Dr Schwartz chart reviewed Pt with recurrent MRSa infections 72 yo male with COPD Patient feels better. Denies SOB. Afebrile. No cough. co L foot pain Sputum culture MRSA Allergies: Coded Allergies: Sulfa (Sulfonamide Antibiotics) (Verified Allergy, Severe, Anaphylaxis, ) metronidazole (Verified Allergy, Severe, Fever, colitis, 09/16/17) While being treated for Cdiff. Doubt if true allergy. penicillin G (Verified Allergy, Severe, Anaphylaxis, 09/16/17) sulfamethoxazole (Verified Allergy, Severe, Anaphylaxis, 09/16/17) trimethoprim (Verified Allergy, Severe, Anaphylaxis, 09/16/17) erythromycin base (Verified Allergy, Intermediate, Rash, 09/16/17) MRI PRECAUTION (Verified Adverse Reaction, Severe, BLADDER STIMULATOR, 09/16/17) BRAIN ONLY ON RECEIVE ONLY COIL, P.O. 01/11/17, DML meperidine (Verified Adverse Reaction, Unknown, Psychosis, 09/16/17) morphine (Verified Adverse Reaction, Unknown, Psychosis, 09/16/17) Uncoded Allergies: surgical tape (Allergy, Severe, 12/15/13) Objective . Vital Signs Date Time Temp Pulse Resp B/P (MAP) Pulse Ox O2 Delivery O2 Flow Rate FiO2 09/19/17 16:00 97.9 96 17 157/68 (97) 99 09/19/17 14:10 18 09/19/17 12:00 96.8 84 17 132/71 (91) 98 09/19/17 08:00 97.8 82 16 160/74 (102) 98 09/19/17 07:47 97 21 09/19/17 00:00 97.8 81 20 152/69 (96) 97 09/18/17 20:16 96 09/18/17 19:00 96.0 79 17 173/75 (107) 97 . Laboratory Tests Test 09/18/17 05:13 09/19/17 07:10 White Blood Count 14.5 TH/MM3 11.5 TH/MM3 Red Blood Count 3.12 MIL/MM3 3.39 MIL/MM3 Hemoglobin 8.6 GM/DL 8.9 GM/DL Hematocrit 25.7 % 28.0 % Mean Corpuscular Volume 82.4 FL 82.8 FL Mean Corpuscular Hemoglobin 27.6 PG 26.4 PG Mean Corpuscular Hemoglobin Concent 33.4 % 31.9 % Red Cell Distribution Width 17.9 % 18.5 % Platelet Count 406 TH/MM3 401 TH/MM3 Mean Platelet Volume 7.0 FL 7.7 FL Erythrocyte Sedimentation Rate 66 mm/hr Hematology Comments Laboratory Tests Test 09/18/17 05:13 09/19/17 07:10 Blood Urea Nitrogen 22 MG/DL 20 MG/DL Creatinine 0.65 MG/DL 0.54 MG/DL Random Glucose 140 MG/DL 61 MG/DL Calcium Level 8.8 MG/DL 8.7 MG/DL Sodium Level 140 MEQ/L 141 MEQ/L Potassium Level 4.6 MEQ/L 4.4 MEQ/L Chloride Level 107 MEQ/L 110 MEQ/L Carbon Dioxide Level 25.4 MEQ/L 20.3 MEQ/L Anion Gap 8 MEQ/L 11 MEQ/L Estimat Glomerular Filtration Rate 120 ML/MIN 149 ML/MIN Lactic Acid Level 1.0 mmol/L Microbiology Date/Time Source Procedure Growth Status 09/16/17 20:35 Blood Peripheral Aerobic Blood Culture - Preliminary NO GROWTH IN 3 DAYS Resulted 09/16/17 20:35 Blood Peripheral Anaerobic Blood Culture - Preliminary NO GROWTH IN 3 DAYS Resulted 09/16/17 20:30 Blood Peripheral Aerobic Blood Culture - Preliminary NO GROWTH IN 3 DAYS Resulted 09/16/17 20:30 Blood Peripheral Anaerobic Blood Culture - Preliminary NO GROWTH IN 3 DAYS Resulted 09/17/17 18:38 Sputum Expectorated Sputum Gram Stain - Final Resulted 09/17/17 18:38 Sputum Culture - Preliminary S. Aureus Mrsa Resulted 09/17/17 14:15 Nasal Aspirate Influenza Types A,B Antigen (DARON) - Final NEGATIVE FOR FLU A AND B ANTIGEN.... Complete 09/17/17 09:48 Sputum Expectorated Sputum Gram Stain - Final Resulted 09/17/17 09:48 Sputum Culture - Preliminary S. Aureus Mrsa Resulted 09/17/17 02:38 Urine Clean Catch Legionella Antigen - Final PRESUMPTIVE NEGATIVE FOR LEGIONELLA P... Complete 09/17/17 02:38 Urine Clean Catch Streptococcus pneumoniae Antigen (M - Final PRESUMPTIVE NEGATIVE FOR STREPTOCOCCU... Complete Imaging Last Impressions Chest X-Ray 09/17/17 0600 Signed Impressions: Service Date/Time: September 09:02 - CONCLUSION: 1. Focal right basilar patchiness consistent with possible pneumonia. Clinical correlation is recommended. 2. cardiomegaly. García Nazario MD Foot X-Ray 09/17/17 0000 Signed Impressions: Service Date/Time: September 14:28 - CONCLUSION: 1. Postsurgical changes as above. 2. No plain film findings of osteomyelitis. If there is necessity for further evaluation contrast-enhanced MRI is recommended. Yo Mcbride MD Physical Exam CONSTITUTIONAL/GENERAL: This is an adequately nourished patient, in no apparent distress. TUBES/LINES/DRAINS: SKIN: No jaundice, rashes, or lesions. Skin temperature appropriate. Not diaphoretic. EYES: Pupils equal and round and reactive. Extraocular motions intact. No scleral icterus. No injection or drainage. Fundi not examined. ENT: Hearing grossly normal. Throat without visible erythema, exudates, masses , or lesions. NECK: Trachea midline. Supple, nontender. CARDIOVASCULAR: Regular rate and rhythm without murmurs, gallops, or rubs. No JVD. Peripheral pulses symmetric. RESPIRATORY/CHEST: Symmetric, unlabored respirations. Scattered rhochi to auscultation. Breath sounds equal bilaterally. + end-expiratory wheezes GASTROINTESTINAL: Abdomen soft, non-tender, nondistended. No hepato-splenomegaly , or palpable masses. No guarding. Bowel sounds present. GENITOURINARY: Without palpable bladder distension. MUSCULOSKELETAL: Extremities without clubbing, cyanosis, or edema. No joint tenderness or effusion noted. No calf tenderness. No mottling or clubbing. L foot sp hallux amputation, VAC in palce with serosang d/c LYMPHATICS: No palpable cervical or supraclavicular adenopathy. NEUROLOGICAL: Awake and alert. Motor and sensory grossly within normal limits. Follows commands. Clear speech . Moves all extremities. PSYCHIATRIC: No obvious anxiety/depression. no apparent hallucinations or other psychotic thought process. Assessment & Plan Remarks IMPRESSION 1. Right lower lobe pneumonia. MRSA in sputum clinically improved 2. Multiple antibiotic allergies. 3. Leukocytosis and fever secondary to pneumonia. RECOMMENDATIONS 1. Monitor sputum culture 2. dc Aztreonam 3. Continue Zithromax 4. start vancomycin Becky Zuñiga MD Sep 19, 2017 16:34
[2017-09-19] MEDS ORDERED: Vancomycin Consult Pharmacy 1 EA OTHER SCH (16:45)
[2017-09-19] MEDS ORDERED: VANCOMYCIN INJ 2,000 MG in SODIUM CHLORID 0.9% 500 ML INJ 500 ML IV ONE (18:00)
[2017-09-19 20:00] VITALS: BP 163/73; PULSE 95; RESP 20; TEMP 96.7; O2SAT 98
[2017-09-19] MEDS: LISINOPRIL 20 MG TAB PO SCH (20:42)
[2017-09-19] MEDS: DONEPEZIL HCL 5 MG TAB PO SCH (20:42)
[2017-09-19] MEDS: DOCUSATE SODIUM 50 MG/SENNA 8.6 MG TAB PO SCH (20:43)
[2017-09-19] MEDS: ATORVASTATIN 40 MG TAB PO SCH (20:43)
[2017-09-19] MEDS: LATANOPROST 0.005% OPHT SOLN 2.5 ML BTL EACH EYE SCH (20:54)
[2017-09-20] VITALS (7 sets, daily range): BP systolic 147–150; BP diastolic 66–72; PULSE 74–87; RESP 16–20; TEMP 96.5–98.1; O2SAT 97
[2017-09-20] MEDS: AZITHROMYCIN 250 MG TAB PO SCH (00:04)
[2017-09-20] MEDS: fentaNYL 25 MCG/HR PATCH T-DERMAL SCH (00:04)
[2017-09-20] MEDS: REMOVE OLD PATCH T-DERMAL SCH (00:05)
[2017-09-20] MEDS: oxyCODONE/ACETAMINOPHEN 5 MG/325 MG TAB PO PRN ×4 (00:05→21:28)
[2017-09-20 05:46] LABS: HEMATOCRIT 26.2 % (39.0-51.0); HEMOGLOBIN 8.7 GM/DL (13.0-17.0); MEAN CORPUSCULAR HEMOGLOBIN 27.1 PG (27.0-34.0); MEAN CORPUSCULAR HGB CONC 33.1 % (32.0-36.0); MEAN PLATELET VOLUME 7.2 FL (7.0-11.0); PLATELET COUNT 404 TH/MM3 (150-450); WHITE BLOOD COUNT 10.2 TH/MM3 (4.0-11.0)
[2017-09-20] MEDS: ENOXAPARIN SODIUM 40 MG/0.4 ML SYRINGE SQ SCH (05:48)
[2017-09-20] MEDS: oxyCODONE/ACETAMINOPHEN 10 MG/325 MG TAB PO PRN ×3 (05:48→17:54)
[2017-09-20] MEDS: CYCLOBENZAPRINE HCL 10 MG TAB PO SCH ×3 (05:48→21:28)
[2017-09-20] MEDS: RESP: ALBUTEROL 2.5 MG/IPRATROPIUM 0.5 MG NEB (SCH) NEB ×4 (08:08→20:50)
[2017-09-20] MEDS: ASPIRIN EC 81 MG TABEC PO SCH (08:12)
[2017-09-20] MEDS: amLODIPine BESYLATE 5 MG TAB PO SCH ×2 (08:12→21:28)
[2017-09-20] MEDS: GABAPENTIN 300 MG CAP PO SCH ×3 (08:12→17:54)
[2017-09-20] MEDS: LACTOBACILLUS ACIDOPHILUS TAB PO SCH ×3 (08:12→17:54)
[2017-09-20] MEDS: MULTIVITAMINS/MINERALS THERAPEUTIC TAB PO SCH (08:12)
[2017-09-20] MEDS: CITALOPRAM HYDROBROMIDE 20 MG TAB PO SCH (08:13)
[2017-09-20] MEDS: ALBUTEROL SULFATE 90 MCG/ACT HFA 8 GM INHALER INH SCH ×4 (08:15→21:30)
[2017-09-20] MEDS: BUDESONIDE-FORMOTEROL 160/4.5 MCG INHALER INH SCH ×2 (08:15→21:31)
[2017-09-20] MEDS: TIOTROPIUM BROMIDE 18 MCG INH INH SCH (08:15)
[2017-09-20] MEDS: COLLAGENASE OINT 30 GM TUBE TOPICAL SCH (08:16)
[2017-09-20] MEDS: VANCOMYCIN 1,500 MG/NS 500 ML IV SCH ×2 (10:55)
--- NOTE | 2017-09-20 11:12 | HHI.FPPN ---
Subjective Remarks No acute events. White count now down to normal. Remaining afebrile. Sputum growing MRSA and antibiotic regimen changed by ID to vancomycin overnight. Coughing still present. He reports more rattling in his lungs this morning, but no shortness of breath. Foot is stable with vac and dressings in place, no erythema or swelling. Pain is well controlled. Good appetite, no nausea, vomiting, or diarrhea. Objective Vitals Vital Signs Date Time Temp Pulse Resp B/P (MAP) Pulse Ox O2 Delivery O2 Flow Rate FiO2 09/20/17 08:11 97 21 09/20/17 08:00 96.5 74 16 150/71 (97) 97 09/20/17 01:18 22 09/20/17 01:18 22 09/20/17 00:00 98.0 87 20 150/72 (98) 97 09/19/17 20:00 96.7 95 20 163/73 (103) 98 09/19/17 19:59 21 09/19/17 16:00 97.9 96 17 157/68 (97) 99 09/19/17 12:00 96.8 84 17 132/71 (91) 98 I/O 09/19/17 09/19/17 09/19/17 09/20/17 09/20/17 09/20/17 07:00 15:00 23:00 07:00 15:00 23:00 Intake Total 120 ml 1520 ml Output Total 1550 ml 1750 ml 1400 ml Balance -1430 ml -230 ml -1400 ml Intake Oral 120 ml 920 ml IV Total 600 ml Output Urine Total 1550 ml 1750 ml 1400 ml Drainage Total 0 ml 0 ml # Bowel Movements 1 1 Result Diagram: 09/20/17 0535 09/19/17 0710 Objective Remarks GENERAL: Sitting up in bed, no distress SKIN: Left foot with wound vac in place, wrapped, erythema gone. Lateral wounds with dressings that are being changed dailyi. HEENT: Normocephalic, no nasal discharge CARDIOVASCULAR: RRR, no murmurs, rubs, or gallops RESPIRATORY: Wheezing and rhonchi bilaterally in the bases but improved GASTROINTESTINAL: Abdomen soft, non-tender, nondistended. No hepato-splenomegaly , or palpable masses. No guarding. MUSCULOSKELETAL: Missing left great toe NEUROLOGICAL: Awake and alert, fully oriented. A/P Assessment and Plan 72-year-old male with multiple comorbidities that presented with severe sepsis with possible source of new right lower lobe pneumonia and left foot wound with surrounding cellulitis that is increased from his last hospital visit. Sputum positive for MRSA. Discharge Planning Pending resolution of infection, sepsis, clinically stable, white count down, afebrile, final sputum culture results and recommendations from infectious disease Problem List: (1) HCAP (healthcare-associated pneumonia) ICD Codes: J18.9 - Pneumonia, unspecified organism Status: Acute Plan: Acute onset right lower lobe infiltrate. Aspiration versus hospital acquired pneumonia. Blood cultures negative. MRSA in sputum. - Started on Azithromycin and Aztreonam at admission 09/16/17, discontinued - Started Vancomycin on 09/19 for MRSA in sputum by infectious disease. - Infectious disease consulted and following - Legionella/pneumoccal antigens negative - Ensure PNA and flu vaccination prior to discharge - Scheduled DuoNeb treatments (2) Open wound of left foot ICD Codes: S91.302A - Unspecified open wound, left foot, initial encounter Status: Chronic Plan: Increased redness at admission but now resolved, likely from overuse of foot versus cellulitis. Foot x-ray not suggestive of osteomyelitis. - Wound care consulted, appreciate recommendations. - Podiatry on board, appreciate recommendations - Wound vac in place, change MWF - Treat lateral wounds with Santyl, daily dressing changes - Use pillows to prop up legs and offset pressure - Infectious disease on board, has multiple antibiotic allergies and frequent history of c.diff colitis. - Not likely to be new foot infection at this point - Continue to work with PT and OT - Follow up with podiatry at discharge (3) HTN (hypertension) ICD Codes: I10 - Essential (primary) hypertension Status: Chronic Plan: -Continue home amlodipine and lisinopril -Vasotec 1.25 mg IV when necessary SBP greater than or equal to 170 or DBP greater than or equal to 100 or heart rate greater than 65 (4) Shoulder pain, left ICD Codes: M25.512 - Pain in left shoulder Status: Chronic Plan: -Chronic left shoulder pain -Continue home Flexeril and Percocet 5-325 mg 1 tab every 6 hours -OT consulted to assist with management (5) Chronic Medical Problems Status: Chronic Plan: CAD: Continue Aspirin 81mg PO daily COPD: Duonebs prn, continue Advair, Combivent and albuterol inhalers Hypertension: Continue home amlodipine pain and lisinopril Hyperlipidemia: Continue Atorvastin Depression: Continue home Celexa Dementia: Continue donezepil 10 mg by mouth at bedtime Anemia: No current source of bleeding suspected. Due to history of GI bleed, will monitor closely. Transfuse if hemoglobin less than 7, or less than 8 and symptomatic (6) FEN/DVT PPX/GI PPX/Nursing Orders Status: Acute Plan: Fluids: PO fluids Electrolytes: Will monitor and replace as needed Nutrition: Regular diet DVT Prophylaxis: Lovenox 40mg daily Problem Qualifiers (1) Open wound of left foot: Qualified Codes: S91.302D - Unspecified open wound, left foot, subsequent encounter (2) Shoulder pain, left: Qualified Codes: M25.512 - Pain in left shoulder; G89.29 - Other chronic pain Дмитрий Duval MD R3 Sep 20, 2017 11:12
[2017-09-20] MEDS: DOCUSATE SODIUM 50 MG/SENNA 8.6 MG TAB PO SCH (21:00)
[2017-09-20] MEDS: LISINOPRIL 20 MG TAB PO SCH (21:27)
[2017-09-20] MEDS: ATORVASTATIN 40 MG TAB PO SCH (21:28)
[2017-09-20] MEDS: DONEPEZIL HCL 5 MG TAB PO SCH (21:28)
[2017-09-20] MEDS: LATANOPROST 0.005% OPHT SOLN 2.5 ML BTL EACH EYE SCH (21:30)
[2017-09-21] VITALS (8 sets, daily range): BP systolic 143–167; BP diastolic 65–73; PULSE 74–87; RESP 16–20; TEMP 97.6–100.2; O2SAT 94–97
[2017-09-21] MEDS: oxyCODONE/ACETAMINOPHEN 10 MG/325 MG TAB PO PRN ×4 (00:16→18:00)
[2017-09-21] MEDS: AZITHROMYCIN 250 MG TAB PO SCH (00:17)
[2017-09-21] MEDS: VANCOMYCIN 1,500 MG/NS 500 ML IV SCH ×6 (00:17→23:19)
[2017-09-21] MEDS: oxyCODONE/ACETAMINOPHEN 5 MG/325 MG TAB PO PRN ×4 (03:02→21:20)
[2017-09-21] MEDS: CYCLOBENZAPRINE HCL 10 MG TAB PO SCH ×3 (06:07→21:20)
[2017-09-21] MEDS: ENOXAPARIN SODIUM 40 MG/0.4 ML SYRINGE SQ SCH (06:07)
[2017-09-21] MEDS: CITALOPRAM HYDROBROMIDE 20 MG TAB PO SCH (08:04)
[2017-09-21] MEDS: LACTOBACILLUS ACIDOPHILUS TAB PO SCH ×3 (08:04→16:59)
[2017-09-21] MEDS: ASPIRIN EC 81 MG TABEC PO SCH (08:04)
[2017-09-21] MEDS: MULTIVITAMINS/MINERALS THERAPEUTIC TAB PO SCH (08:04)
[2017-09-21] MEDS: GABAPENTIN 300 MG CAP PO SCH ×3 (08:04→16:59)
[2017-09-21] MEDS: amLODIPine BESYLATE 5 MG TAB PO SCH ×2 (08:04→21:19)
[2017-09-21] MEDS: ALBUTEROL SULFATE 90 MCG/ACT HFA 8 GM INHALER INH SCH ×4 (08:05→21:00)
[2017-09-21] MEDS: COLLAGENASE OINT 30 GM TUBE TOPICAL SCH (08:05)
[2017-09-21] MEDS: BUDESONIDE-FORMOTEROL 160/4.5 MCG INHALER INH SCH ×2 (08:05→21:00)
[2017-09-21] MEDS: TIOTROPIUM BROMIDE 18 MCG INH INH SCH (08:05)
[2017-09-21] MEDS: RESP: ALBUTEROL 2.5 MG/IPRATROPIUM 0.5 MG NEB (SCH) NEB ×4 (08:50→19:02)
--- NOTE | 2017-09-21 09:52 | HHI.FPPN ---
Subjective Remarks Patient seen and examined at bedside. Pt stated his breathing and productive cough have improved. Pt reports he is eating well. Denies CP and diarrhea. Last night pt developed sharp pain in his Left upper thigh, rates 9/10. Denies any falls or recent injury to the left leg. Objective Vitals Vital Signs Date Time Temp Pulse Resp B/P (MAP) Pulse Ox O2 Delivery O2 Flow Rate FiO2 09/21/17 08:50 94 09/21/17 08:01 97.6 74 16 154/65 (94) 97 09/21/17 01:16 18 09/21/17 00:00 98.2 76 20 150/66 (94) 97 09/20/17 22:29 20 09/20/17 20:50 97 09/20/17 20:00 98.1 86 20 147/69 (95) 97 09/20/17 16:00 97.1 79 17 147/72 (97) 97 09/20/17 12:00 97.5 76 17 150/66 (94) 97 I/O 09/20/17 09/20/17 09/20/17 09/21/17 09/21/17 09/21/17 07:00 15:00 23:00 07:00 15:00 23:00 Intake Total 1500 ml 500 ml Output Total 1400 ml 1450 ml 1250 ml Balance -1400 ml 50 ml -750 ml Intake Oral 1500 ml IV Total 500 ml Output Urine Total 1400 ml 1450 ml 1250 ml Drainage Total 0 ml 0 ml # Bowel Movements 1 1 Result Diagram: 09/20/17 0535 09/19/17 0710 Objective Remarks GENERAL: Sitting up in bed, no distress SKIN: Left foot with wound vac in place, wrapped, erythema gone. Lateral wounds with dressings that are being changed daily. HEENT: Normocephalic, no nasal discharge CARDIOVASCULAR: Normal S1 and S2. RRR, no murmurs, rubs, or gallops RESPIRATORY: mild diffuse expiratory wheezing bilaterally in the bases. GASTROINTESTINAL: Abdomen soft, non-tender, nondistended. No hepato-splenomegaly , or palpable masses. No guarding. MUSCULOSKELETAL: Missing left great toe. Non-tender calves BL NEUROLOGICAL: Awake and alert, fully oriented. A/P Assessment and Plan 72-year-old male with multiple comorbidities that presented with severe sepsis with possible source of new right lower lobe pneumonia and left foot wound with surrounding cellulitis that is increased from his last hospital visit. Sputum positive for MRSA. Discharge Planning Pending resolution of infection, sepsis, clinically stable, afebrile, sputum culture on 09/17 grew MRSA, awaiting recommendations from infectious disease for PNA treatment to coordinate discharge. Problem List: (1) HCAP (healthcare-associated pneumonia) ICD Codes: J18.9 - Pneumonia, unspecified organism Status: Acute Plan: Acute onset right lower lobe infiltrate. Aspiration versus hospital acquired pneumonia. Blood cultures negative. MRSA in sputum. - Started on Azithromycin and Aztreonam at admission 09/16/17, discontinued - Started Vancomycin on 09/19 for MRSA in sputum by infectious disease. - Infectious disease consulted and following, appreciate recommendations - Legionella/pneumoccal antigens negative - Ensure PNA and flu vaccination prior to discharge - Scheduled DuoNeb treatments -Awaiting further ID recommendations regarding for PNA treatment to plan for discharge. (2) Open wound of left foot ICD Codes: S91.302A - Unspecified open wound, left foot, initial encounter Status: Chronic Plan: Increased redness at admission but now resolved, likely from overuse of foot versus cellulitis. Foot x-ray not suggestive of osteomyelitis. - Wound care was consulted, appreciate recommendations. - Wound vac in place, wound care orders placed for nursing staff - Treat lateral wounds with Santyl, daily dressing changes - Use pillows to prop up legs and offset pressure - Infectious disease on board, has multiple antibiotic allergies and frequent history of c.diff colitis. - Not likely to be new foot infection at this point - Continue to work with PT and OT - Podiatry has signed off, to follow up with podiatry at discharge (3) HTN (hypertension) ICD Codes: I10 - Essential (primary) hypertension Status: Chronic Plan: -Continue home amlodipine and lisinopril -Vasotec 1.25 mg IV when necessary SBP greater than or equal to 170 or DBP greater than or equal to 100 or heart rate greater than 65 (4) Shoulder pain, left ICD Codes: M25.512 - Pain in left shoulder Status: Chronic Plan: -Chronic left shoulder pain -Continue home Flexeril and Percocet 5-325 mg 1 tab every 6 hours -OT consulted to assist with management -Tylenol 650mg PRN for recent Left upper thigh pain (5) Chronic Medical Problems Status: Chronic Plan: CAD: Continue Aspirin 81mg PO daily COPD: Duonebs prn, continue Advair, Combivent and albuterol inhalers Hypertension: Continue home amlodipine pain and lisinopril Hyperlipidemia: Continue Atorvastin Depression: Continue home Celexa Dementia: Continue donezepil 10 mg by mouth at bedtime Anemia: No current source of bleeding suspected. Due to history of GI bleed, will monitor closely. Transfuse if hemoglobin less than 7, or less than 8 and symptomatic (6) FEN/DVT PPX/GI PPX/Nursing Orders Status: Acute Plan: Fluids: PO fluids Electrolytes: Will monitor and replace as needed Nutrition: Regular diet DVT Prophylaxis: Lovenox 40mg daily Dispo: Awaiting further ID recommendations regarding for PNA treatment to plan for discharge. Problem Qualifiers (1) Open wound of left foot: Qualified Codes: S91.302D - Unspecified open wound, left foot, subsequent encounter (2) Shoulder pain, left: Qualified Codes: M25.512 - Pain in left shoulder; G89.29 - Other chronic pain La Nena Samuel MD, R1 Sep 21, 2017 09:52
[2017-09-21 10:32] LABS: HEMATOCRIT 28.6 % (39.0-51.0); HEMOGLOBIN 9.1 GM/DL (13.0-17.0); MEAN CELL VOLUME 82.6 FL (80.0-100.0); MEAN CORPUSCULAR HEMOGLOBIN 26.3 PG (27.0-34.0); MEAN CORPUSCULAR HGB CONC 31.9 % (32.0-36.0); MEAN PLATELET VOLUME 7.3 FL (7.0-11.0); PLATELET COUNT 456 TH/MM3 (150-450); RED BLOOD COUNT 3.46 MIL/MM3 (4.50-5.90); WHITE BLOOD COUNT 13.8 TH/MM3 (4.0-11.0)
[2017-09-21] MEDS ORDERED: PHARMACY ORDERED LAB ONE (10:45)
[2017-09-21 10:50] LABS: BICARBONATE 29.4 MEQ/L (21.0-32.0); CALCIUM 8.6 MG/DL (8.5-10.1); CREATININE 0.66 MG/DL (0.60-1.30)
--- NOTE | 2017-09-21 11:46 | HHI.IDPN ---
Note Infectious Disease Note Patient complains of sharp pain in the left groin which he say started early am. occurs when he adducts his left leg. Denies SOB. No fever. Coughing up sherman sputum. Sputum culture MRSA. PAST MEDICAL HISTORY 1. COPD, 2. Hypertension, 3. Chronic pain, 4. Arthritis, 5. Spinal stenosis 6. History of left hallux amputation 7. History of the metatarsal debridement. 8. Appendectomy, 9. Cataract surgery 10. Back surgery 11. Left pleural effusion. ALLERGIES PENICILLIN METRONIDAZOLE MEPERIDINE MORPHINE ERYTHROMYCIN SULFA. LEVAQUIN - the patient expresses refusal to use Levaquin because it is associated with C-difficile. Vital Signs Date Time Temp Pulse Resp B/P (MAP) Pulse Ox O2 Delivery O2 Flow Rate FiO2 09/21/17 08:50 94 09/21/17 08:01 97.6 74 16 154/65 (94) 97 09/21/17 01:16 18 09/21/17 00:00 98.2 76 20 150/66 (94) 97 09/20/17 22:29 20 09/20/17 20:50 97 09/20/17 20:00 98.1 86 20 147/69 (95) 97 09/20/17 16:00 97.1 79 17 147/72 (97) 97 09/20/17 12:00 97.5 76 17 150/66 (94) 97 Laboratory Tests Test 09/20/17 05:35 09/21/17 09:45 White Blood Count 10.2 TH/MM3 13.8 TH/MM3 Red Blood Count 3.20 MIL/MM3 3.46 MIL/MM3 Hemoglobin 8.7 GM/DL 9.1 GM/DL Hematocrit 26.2 % 28.6 % Mean Corpuscular Volume 82.0 FL 82.6 FL Mean Corpuscular Hemoglobin 27.1 PG 26.3 PG Mean Corpuscular Hemoglobin Concent 33.1 % 31.9 % Red Cell Distribution Width 18.0 % 18.0 % Platelet Count 404 TH/MM3 456 TH/MM3 Mean Platelet Volume 7.2 FL 7.3 FL Laboratory Tests Test 09/21/17 10:00 Blood Urea Nitrogen 16 MG/DL Creatinine 0.66 MG/DL Random Glucose 133 MG/DL Calcium Level 8.6 MG/DL Sodium Level 140 MEQ/L Potassium Level 4.0 MEQ/L Chloride Level 104 MEQ/L Carbon Dioxide Level 29.4 MEQ/L Anion Gap 7 MEQ/L Estimat Glomerular Filtration Rate 118 ML/MIN SOCIAL HISTORY The patient is . No tobacco or alcohol. Denies illicit drugs. OBJECTIVE: Vital Signs Date Time Temp Pulse Resp B/P (MAP) Pulse Ox O2 Delivery O2 Flow Rate FiO2 09/18/17 12:00 96.4 77 16 155/69 (97) 97 09/18/17 09:28 98 Nasal Cannula 2.00 09/18/17 08:00 80 09/18/17 08:00 96.1 82 18 180/84 (116) 95 09/18/17 04:56 96.9 72 18 167/78 (107) 96 09/18/17 02:55 18 09/18/17 00:39 97.0 82 20 156/76 (102) 97 09/17/17 20:45 97.7 80 18 160/77 (104) 98 09/17/17 20:14 78 09/17/17 16:00 97.5 79 17 144/70 (94) 98 Laboratory Tests Test 09/16/17 20:31 09/17/17 06:07 09/18/17 05:13 White Blood Count 20.6 TH/MM3 18.2 TH/MM3 14.5 TH/MM3 Red Blood Count 3.53 MIL/MM3 3.38 MIL/MM3 3.12 MIL/MM3 Hemoglobin 9.6 GM/DL 8.9 GM/DL 8.6 GM/DL Hematocrit 29.4 % 28.3 % 25.7 % Mean Corpuscular Volume 83.4 FL 83.8 FL 82.4 FL Mean Corpuscular Hemoglobin 27.1 PG 26.4 PG 27.6 PG Mean Corpuscular Hemoglobin Concent 32.5 % 31.5 % 33.4 % Red Cell Distribution Width 18.4 % 17.8 % 17.9 % Platelet Count 563 TH/MM3 423 TH/MM3 406 TH/MM3 Mean Platelet Volume 7.2 FL 7.9 FL 7.0 FL Neutrophils (%) (Auto) 81.1 % 96.3 % Lymphocytes (%) (Auto) 10.1 % 2.8 % Monocytes (%) (Auto) 6.2 % 0.8 % Eosinophils (%) (Auto) 2.2 % 0.0 % Basophils (%) (Auto) 0.4 % 0.1 % Neutrophils # (Auto) 16.7 TH/MM3 17.6 TH/MM3 Lymphocytes # (Auto) 2.1 TH/MM3 0.5 TH/MM3 Monocytes # (Auto) 1.3 TH/MM3 0.1 TH/MM3 Eosinophils # (Auto) 0.5 TH/MM3 0.0 TH/MM3 Basophils # (Auto) 0.1 TH/MM3 0.0 TH/MM3 CBC Comment DIFF FINAL DIFF FINAL Differential Comment Erythrocyte Sedimentation Rate 66 mm/hr PHYSICAL EXAMINATION GENERAL: No acute distress. He is awake and alert and oriented. HEENT: No icterus. Oropharynx moist mucosa without lesions. NECK: Supple without adenopathy. LUNGS: Rhonchi at the right base. Decreased breath sounds on the left. HEART: Normal S1-S2. ABDOMEN: Bowel sounds present, soft, nontender. EXTREMITIES: The left foot vac in place. NEUROLOGIC: Nonfocal. SKIN: No rash PSYCHIATRIC: Calm and cooperative. IMPRESSION 1. Right lower lobe pneumonia. MRSA. 2. Multiple antibiotic allergies. 3. Leukocytosis and fever secondary to pneumonia. RECOMMENDATIONS 1. Continue Vancomycin. 2. Monitor white blood cell count and temperature. 3. Give 10 day course of the vancomycin IV. 4. RN to notify Primary attending about the left groin pain. 5. Could give the vanco at a nursing facility. I will write the order for such if he decides to be treated at SNF. Cullen Long MD Sep 21, 2017 11:46
--- NOTE | 2017-09-21 11:51 | HHI.FF ---
Infusion Therapy Location of Infusion Therapy: [facility] Infusion Therapy Order Patient Information Patient Weight 75.5 kg Diagnosis: Diagnosis MRSA pneumonia. Coded Allergies: Sulfa (Sulfonamide Antibiotics) (Verified Allergy, Severe, Anaphylaxis, ) metronidazole (Verified Allergy, Severe, Fever, colitis, 09/16/17) While being treated for Cdiff. Doubt if true allergy. penicillin G (Verified Allergy, Severe, Anaphylaxis, 09/16/17) sulfamethoxazole (Verified Allergy, Severe, Anaphylaxis, 09/16/17) trimethoprim (Verified Allergy, Severe, Anaphylaxis, 09/16/17) erythromycin base (Verified Allergy, Intermediate, Rash, 09/16/17) MRI PRECAUTION (Verified Adverse Reaction, Severe, BLADDER STIMULATOR, 09/16/17) BRAIN ONLY ON RECEIVE ONLY COIL, P.O. 01/11/17, DML meperidine (Verified Adverse Reaction, Unknown, Psychosis, 09/16/17) morphine (Verified Adverse Reaction, Unknown, Psychosis, 09/16/17) Uncoded Allergies: surgical tape (Allergy, Severe, 12/15/13) Administer Medication Vancomycin 1.5 grams IV q 12 hours Stop Treatment: Sep 27, 2017 Additional Information Venous access: PICC Line Additional Instructions [x] Peripheral flush and dressing changes per protocol [x] Implanted port and central coordinator of online programs: * Implanted port: 10 ml Normal Saline followed by 5 ml Heparin 100 units/ml Heparin flush after each use and monthly to maintain. [] May leave port accessed during therapy. [] May leave peripheral site accessed for duration of therapy. [x] If patient has SOB or respiratory distress, check oxygen saturation. If less than 90% or clinical signs of respiratory distress, administer oxygen at 2 L/min. via nasal cannula and notify physician. [x] Anaphylaxis/Reaction orders: * Stop infusion. * Keep IV line open with saline flush. * Notify physician. * Monitor vital signs every 15 minutes until symptoms resolve. * Check Oxygen saturation; Oxygen at 2 L/min. via nasal cannula if less than 90% or clinical signs of respiratory distress. * Administer diphenhydramine (Benadryl) 25 mg IV STAT, (unless patient has received as pre-med). May repeat once, if necessary. * Solu-Cortef 250 mg IVP over 30-60 seconds, use 100 mg vials for each dissolution. * Epinephrine (1mg/1 ml) 0.3 mg subcutaneously or IVP now with any signs of respiratory distress. * Check with physician for new additional pre-med orders if patient is re- challenged or re-treated. [x] May remove PICC line when treatment complete, after confirming with Physician. [x] If the patient is admitted to the hospital, the ED, or transferred via [facility] , complete transfer form including medication reconciliation order sheet. Laboratory Tests Weekly Labs: CBC w/diff, Vancomycin Trough Additional Information Lab BMP QOD while on vancomycin. Cullen Long MD Sep 21, 2017 11:50
--- NOTE | 2017-09-21 11:51 | HHI.FF ---
Infusion Therapy Location of Infusion Therapy: [facility] Infusion Therapy Order Patient Information Patient Weight 75.5 kg Diagnosis: Diagnosis MRSA pneumonia. Coded Allergies: Sulfa (Sulfonamide Antibiotics) (Verified Allergy, Severe, Anaphylaxis, ) metronidazole (Verified Allergy, Severe, Fever, colitis, 09/16/17) While being treated for Cdiff. Doubt if true allergy. penicillin G (Verified Allergy, Severe, Anaphylaxis, 09/16/17) sulfamethoxazole (Verified Allergy, Severe, Anaphylaxis, 09/16/17) trimethoprim (Verified Allergy, Severe, Anaphylaxis, 09/16/17) erythromycin base (Verified Allergy, Intermediate, Rash, 09/16/17) MRI PRECAUTION (Verified Adverse Reaction, Severe, BLADDER STIMULATOR, 09/16/17) BRAIN ONLY ON RECEIVE ONLY COIL, P.O. 01/11/17, DML meperidine (Verified Adverse Reaction, Unknown, Psychosis, 09/16/17) morphine (Verified Adverse Reaction, Unknown, Psychosis, 09/16/17) Uncoded Allergies: surgical tape (Allergy, Severe, 12/15/13) Administer Medication Vancomycin 1.5 grams IV q 12 hours Stop Treatment: Sep 27, 2017 Additional Information Venous access: PICC Line Additional Instructions [x] Peripheral flush and dressing changes per protocol [x] Implanted port and central line service supervisor: * Implanted port: 10 ml Normal Saline followed by 5 ml Heparin 100 units/ml Heparin flush after each use and monthly to maintain. [] May leave port accessed during therapy. [] May leave peripheral site accessed for duration of therapy. [x] If patient has SOB or respiratory distress, check oxygen saturation. If less than 90% or clinical signs of respiratory distress, administer oxygen at 2 L/min. via nasal cannula and notify physician. [x] Anaphylaxis/Reaction orders: * Stop infusion. * Keep IV line open with saline flush. * Notify physician. * Monitor vital signs every 15 minutes until symptoms resolve. * Check Oxygen saturation; Oxygen at 2 L/min. via nasal cannula if less than 90% or clinical signs of respiratory distress. * Administer diphenhydramine (Benadryl) 25 mg IV STAT, (unless patient has received as pre-med). May repeat once, if necessary. * Solu-Cortef 250 mg IVP over 30-60 seconds, use 100 mg vials for each dissolution. * Epinephrine (1mg/1 ml) 0.3 mg subcutaneously or IVP now with any signs of respiratory distress. * Check with physician for new additional pre-med orders if patient is re- challenged or re-treated. [x] May remove PICC line when treatment complete, after confirming with Physician. [x] If the patient is admitted to the hospital, the ED, or transferred via [facility] , complete transfer form including medication reconciliation order sheet. Laboratory Tests Weekly Labs: CBC w/diff, Vancomycin Trough Additional Information Lab BMP QOD while on vancomycin. Cullen Long MD Sep 21, 2017 11:50
[2017-09-21] MEDS: LISINOPRIL 20 MG TAB PO SCH (21:00)
[2017-09-21] MEDS: LATANOPROST 0.005% OPHT SOLN 2.5 ML BTL EACH EYE SCH (21:19)
[2017-09-21] MEDS: DOCUSATE SODIUM 50 MG/SENNA 8.6 MG TAB PO SCH (21:19)
[2017-09-21] MEDS: DONEPEZIL HCL 5 MG TAB PO SCH (21:20)
[2017-09-21] MEDS: ATORVASTATIN 40 MG TAB PO SCH (21:20)
[2017-09-22] VITALS (8 sets, daily range): BP systolic 109–161; BP diastolic 53–73; PULSE 60–97; RESP 17–20; TEMP 98.2–102; O2SAT 92–96
[2017-09-22] MEDS: oxyCODONE/ACETAMINOPHEN 10 MG/325 MG TAB PO PRN ×4 (00:28→20:34)
[2017-09-22] MEDS: AZITHROMYCIN 250 MG TAB PO SCH (02:12)
[2017-09-22] MEDS: oxyCODONE/ACETAMINOPHEN 5 MG/325 MG TAB PO PRN ×3 (04:45→16:34)
[2017-09-22] MEDS: CYCLOBENZAPRINE HCL 10 MG TAB PO SCH ×3 (04:45→20:27)
[2017-09-22] MEDS: ENOXAPARIN SODIUM 40 MG/0.4 ML SYRINGE SQ SCH (04:46)
[2017-09-22] MEDS: MULTIVITAMINS/MINERALS THERAPEUTIC TAB PO SCH (07:46)
[2017-09-22] MEDS: amLODIPine BESYLATE 5 MG TAB PO SCH ×2 (07:46→20:28)
[2017-09-22] MEDS: CITALOPRAM HYDROBROMIDE 20 MG TAB PO SCH (07:46)
[2017-09-22] MEDS: ASPIRIN EC 81 MG TABEC PO SCH (07:46)
[2017-09-22] MEDS: LACTOBACILLUS ACIDOPHILUS TAB PO SCH ×3 (07:47→16:34)
[2017-09-22] MEDS: GABAPENTIN 300 MG CAP PO SCH ×3 (07:47→16:33)
[2017-09-22] MEDS: TIOTROPIUM BROMIDE 18 MCG INH INH SCH (07:49)
[2017-09-22] MEDS: ALBUTEROL SULFATE 90 MCG/ACT HFA 8 GM INHALER INH SCH ×4 (07:49→20:40)
[2017-09-22] MEDS: BUDESONIDE-FORMOTEROL 160/4.5 MCG INHALER INH SCH ×2 (07:49→20:43)
[2017-09-22] MEDS: COLLAGENASE OINT 30 GM TUBE TOPICAL SCH (07:50)
[2017-09-22] MEDS: RESP: ALBUTEROL 2.5 MG/IPRATROPIUM 0.5 MG NEB (SCH) NEB ×3 (08:05→15:06)
[2017-09-22] MEDS: VANCOMYCIN 1,500 MG/NS 500 ML IV SCH ×2 (10:21)
--- NOTE | 2017-09-22 12:02 | HHI.IDPN ---
Note Infectious Disease Note Patient is having fever and sweating. Temp of 102. Awake bur look lethargic. Coughing. notes that he had 5 bouts of loose stools. Sputum culture MRSA. PAST MEDICAL HISTORY 1. COPD, 2. Hypertension, 3. Chronic pain, 4. Arthritis, 5. Spinal stenosis 6. History of left hallux amputation 7. History of the metatarsal debridement. 8. Appendectomy, 9. Cataract surgery 10. Back surgery 11. Left pleural effusion. ALLERGIES PENICILLIN METRONIDAZOLE MEPERIDINE MORPHINE ERYTHROMYCIN SULFA. LEVAQUIN - the patient expresses refusal to use Levaquin because it is associated with C-difficile. OBJECTIVE: Vital Signs Date Time Temp Pulse Resp B/P (MAP) Pulse Ox O2 Delivery O2 Flow Rate FiO2 09/22/17 08:06 94 21 09/22/17 08:00 101.4 97 18 161/73 (102) 94 09/22/17 04:00 102.0 09/22/17 00:35 101.7 88 20 160/72 (101) 94 09/21/17 20:41 100.2 86 20 165/73 (103) 97 09/21/17 19:04 96 09/21/17 16:00 99.8 87 18 167/70 (102) 96 09/21/17 15:31 95 09/21/17 12:00 99.1 79 17 143/65 (91) 97 Laboratory Tests Test 09/21/17 09:45 White Blood Count 13.8 TH/MM3 Red Blood Count 3.46 MIL/MM3 Hemoglobin 9.1 GM/DL Hematocrit 28.6 % Mean Corpuscular Volume 82.6 FL Mean Corpuscular Hemoglobin 26.3 PG Mean Corpuscular Hemoglobin Concent 31.9 % Red Cell Distribution Width 18.0 % Platelet Count 456 TH/MM3 Mean Platelet Volume 7.3 FL Laboratory Tests Test 09/21/17 10:00 Blood Urea Nitrogen 16 MG/DL Creatinine 0.66 MG/DL Random Glucose 133 MG/DL Calcium Level 8.6 MG/DL Sodium Level 140 MEQ/L Potassium Level 4.0 MEQ/L Chloride Level 104 MEQ/L Carbon Dioxide Level 29.4 MEQ/L Anion Gap 7 MEQ/L Estimat Glomerular Filtration Rate 118 ML/MIN PHYSICAL EXAMINATION GENERAL: No acute distress. He is awake and alert and oriented. HEENT: No icterus. Oropharynx moist mucosa without lesions. NECK: Supple without adenopathy. LUNGS: Rhonchi at the right base. Decreased breath sounds on the left. HEART: Normal S1-S2. No murmurs, rubs or gallops. ABDOMEN: Bowel sounds present, soft, nontender. EXTREMITIES: The left foot wound vac in place. NEUROLOGIC: Nonfocal. SKIN: No rash PSYCHIATRIC: Calm and cooperative. IMPRESSION 1. Right lower lobe pneumonia. MRSA. 2. Fever. ? sepsis. 3. Multiple antibiotic allergies. 4. Leukocytosis and fever secondary to pneumonia. 5. Loose stools. RECOMMENDATIONS 1. Continue Vancomycin. 2. Add Meropenem. Coverage for gram negative bacteria. 3. Send urine culture. would like hospice consulted. Cullen Long MD Sep 22, 2017 12:02
[2017-09-22] MEDS ORDERED: ASP: Documented allergy to Penicillins or Cephalosporins PRN (12:15)
[2017-09-22] MEDS ORDERED: MISCELLANEOUS PHARMACY INFORMATION XX PRN ×2 (12:15)
--- NOTE | 2017-09-22 12:25 | HHI.FPPN ---
Subjective Remarks Patient seen and examined at bedside. Pt spiked a Tmax of 102F overnight. This morning pt had temp of 101F. Orders for blood culture were placed this am. Pt stated his cough and breathing have improved since admission. Pt reports that he does not feel ill however does complain of generalized pain mainly knees BL and left shoulder pain. Denies feeling warm. Denies chills, chest pain, N/V. Pt also developed diarrhea overnight. Objective Vitals Vital Signs Date Time Temp Pulse Resp B/P (MAP) Pulse Ox O2 Delivery O2 Flow Rate FiO2 09/22/17 08:06 94 21 09/22/17 08:00 101.4 97 18 161/73 (102) 94 09/22/17 04:00 102.0 09/22/17 00:35 101.7 88 20 160/72 (101) 94 09/21/17 20:41 100.2 86 20 165/73 (103) 97 09/21/17 19:04 96 09/21/17 16:00 99.8 87 18 167/70 (102) 96 09/21/17 15:31 95 I/O 09/21/17 09/21/17 09/21/17 09/22/17 09/22/17 09/22/17 07:00 15:00 23:00 07:00 15:00 23:00 Intake Total 500 ml 1595 ml 680 ml 515 ml Output Total 1250 ml 1550 ml 1500 ml Balance -750 ml 45 ml -820 ml 515 ml Intake Oral 1080 ml 680 ml IV Total 500 ml 515 ml 515 ml Output Urine Total 1250 ml 1550 ml 1500 ml Drainage Total 0 ml # Bowel Movements 1 1 Result Diagram: 09/21/17 0945 09/21/17 1000 Objective Remarks GENERAL: laying in bed, no distress SKIN: Left foot with wound vac in place, wrapped, erythema gone. Lateral wounds with dressings that are being changed daily. HEENT: Normocephalic, no nasal discharge CARDIOVASCULAR: Normal S1 and S2. RRR, no murmurs, rubs, or gallops RESPIRATORY: Mild diffuse expiratory wheezing bilaterally in the bases. GASTROINTESTINAL: Abdomen soft, nondistended, significant tenderness to palpation on LLQ. No hepato-splenomegaly, or palpable masses. No guarding. MUSCULOSKELETAL: Missing left great toe. Non-tender calves BL NEUROLOGICAL: Awake and alert, fully oriented. A/P Assessment and Plan 72-year-old male with multiple comorbidities that presented with severe sepsis with possible source of new right lower lobe pneumonia and left foot wound with surrounding cellulitis that is increased from his last hospital visit. Sputum positive for MRSA. Pt developed fevers and diarrhea overnight. Discharge Planning Pending resolution of infection, sputum culture on 09/17 grew MRSA, patient developed fevers overnight (Tmax 102F), currently afebrile, will discuss care plan with infectious disease regarding further treatment. Problem List: (1) HCAP (healthcare-associated pneumonia) ICD Codes: J18.9 - Pneumonia, unspecified organism Status: Acute Plan: Acute onset right lower lobe infiltrate. Aspiration versus hospital acquired pneumonia. Blood cultures negative. MRSA in sputum. - Started on Azithromycin and Aztreonam at admission 09/16/17, discontinued - Started Vancomycin on 09/19 for MRSA in sputum by infectious disease. ID recommended patient to complete 10 day course of vancomycin for treatment of MRSA PNA. - Infectious disease consulted and following, appreciate recommendations - Legionella/pneumoccal antigens negative - Ensure PNA and flu vaccination prior to discharge - Scheduled DuoNeb treatments -Will discuss care plan with infectious disease regarding further treatment for PNA and plan for discharge. -Given multiple hospitalizations during the past year patient and requested hospice evaluation, hospice consult submitted. (2) Open wound of left foot ICD Codes: S91.302A - Unspecified open wound, left foot, initial encounter Status: Chronic Plan: Increased redness at admission but now resolved, likely from overuse of foot versus cellulitis. Foot x-ray not suggestive of osteomyelitis. - Wound care was consulted, appreciate recommendations. - Wound vac in place, wound care orders placed for nursing staff - Treat lateral wounds with Santyl, daily dressing changes - Use pillows to prop up legs and offset pressure - Infectious disease on board, has multiple antibiotic allergies and frequent history of c.diff colitis. - Not likely to be new foot infection at this point - Continue to work with PT and OT - Podiatry has signed off, to follow up with podiatry at discharge (3) HTN (hypertension) ICD Codes: I10 - Essential (primary) hypertension Status: Chronic Plan: -Continue home amlodipine and lisinopril -Vasotec 1.25 mg IV when necessary SBP greater than or equal to 170 or DBP greater than or equal to 100 or heart rate greater than 65 (4) Shoulder pain, left ICD Codes: M25.512 - Pain in left shoulder Status: Chronic Plan: -Chronic left shoulder pain -Continue home Flexeril and Percocet 5-325 mg 1 tab every 6 hours -OT consulted to assist with management -Tylenol 650mg PRN for recent Left upper thigh pain (5) Chronic Medical Problems Status: Chronic Plan: CAD: Continue Aspirin 81mg PO daily COPD: Duonebs prn, continue Advair, Combivent and albuterol inhalers Hypertension: Continue home amlodipine pain and lisinopril Hyperlipidemia: Continue Atorvastin Depression: Continue home Celexa Dementia: Continue donezepil 10 mg by mouth at bedtime Anemia: No current source of bleeding suspected. Due to history of GI bleed, will monitor closely. Transfuse if hemoglobin less than 7, or less than 8 and symptomatic (6) Fever ICD Codes: R50.9 - Fever, unspecified Status: Acute Plan: Pt with hx of C. diff infection developed fever overnight. Tmax of 102F. Fever associated with diarrhea and LLQ tenderness on abdominal exam. -Temp of 101 this morning -f/u blood cx taken this morning -f/u results c. diff toxin pcr -plan to discuss plan to identify source of fever with ID. -possible c diff recurrence or diverticulitis. -Consider Abdominal CT, CXR or need to broaden antibiotic coverage (7) FEN/DVT PPX/GI PPX/Nursing Orders Status: Acute Plan: Fluids: PO fluids Electrolytes: Will monitor and replace as needed Nutrition: Regular diet DVT Prophylaxis: Lovenox 40mg daily Dispo: Given multiple hospitalizations during the past year patient and requested hospice evaluation, hospice consult submitted. Problem Qualifiers (1) Open wound of left foot: Qualified Codes: S91.302D - Unspecified open wound, left foot, subsequent encounter (2) Shoulder pain, left: Qualified Codes: M25.512 - Pain in left shoulder; G89.29 - Other chronic pain La Nena Samuel MD, R1 Sep 22, 2017 12:25
[2017-09-22 13:21] LABS: BACTERIA, URINE FEW /hpf; BILIRUBIN, URINE NEG (NEG); BLOOD, URINE SMALL (NEG); GLUCOSE,URINE NEG (NEG); KETONE, URINE NEG (NEG); NITRITE,URINE NEG (NEG); PH, URINE 5.5 (5.0-8.5); SQUAMOUS EPITHELIAL CELL URINE <1 /hpf (0-5); URINE COLOR YELLOW (YELLW/STRAW); URINE LEUKOCYTE ESTERASE NEG (NEG)
[2017-09-22] MEDS ORDERED: LOPERAMIDE HCL 2 MG CAP PO PRN (13:30)
[2017-09-22 13:42] LABS: AUTOMATED NEUTROPHIL # 26.7 TH/MM3 (1.8-7.7); BASOPHIL # 0.1 TH/MM3 (0-0.2); BASOPHIL % 0.5 % (0.0-2.0); EOSINOPHIL # 0.2 TH/MM3 (0-0.4); EOSINOPHIL % 0.7 % (0.0-4.0); HEMATOCRIT 32.1 % (39.0-51.0); HEMOGLOBIN 10.1 GM/DL (13.0-17.0); LYMPHOCYTE # 0.9 TH/MM3 (1.0-4.8); MEAN CORPUSCULAR HGB CONC 31.3 % (32.0-36.0); MEAN PLATELET VOLUME 7.4 FL (7.0-11.0); MONO % 3.5 % (0.0-8.0); NEUT % 92.3 % (16.0-70.0); PLATELET COUNT 463 TH/MM3 (150-450); RED BLOOD COUNT 3.87 MIL/MM3 (4.50-5.90); RED CELL DISTRIBUTION WIDTH 18.8 % (11.6-17.2); WHITE BLOOD COUNT 28.9 TH/MM3 (4.0-11.0)
[2017-09-22] MEDS: MEROPENEM INJ 1,000 MG in SODIUM CHLORIDE 0.9% INJ 100 ML IV SCH ×2 (14:00→20:28)
[2017-09-22] MEDS: ATORVASTATIN 40 MG TAB PO SCH (20:26)
[2017-09-22] MEDS: DONEPEZIL HCL 5 MG TAB PO SCH (20:27)
[2017-09-22] MEDS: DOCUSATE SODIUM 50 MG/SENNA 8.6 MG TAB PO SCH (20:27)
[2017-09-22] MEDS: LISINOPRIL 20 MG TAB PO SCH (20:27)
[2017-09-22] MEDS: VANCOMYCIN 500 MG VIAL (FOR ORAL USE ONLY) PO SCH (20:35)
[2017-09-22] MEDS: LATANOPROST 0.005% OPHT SOLN 2.5 ML BTL EACH EYE SCH (20:38)
[2017-09-23] VITALS: BP 149/65; PULSE 86; RESP 20; TEMP 99.6; O2SAT 98
[2017-09-23] MEDS: AZITHROMYCIN 250 MG TAB PO SCH (00:42)
[2017-09-23] MEDS: VANCOMYCIN 1,500 MG/NS 500 ML IV SCH ×4 (00:42→10:59)
[2017-09-23] MEDS: fentaNYL 25 MCG/HR PATCH T-DERMAL SCH (00:47)
[2017-09-23] MEDS: oxyCODONE/ACETAMINOPHEN 5 MG/325 MG TAB PO PRN ×3 (00:47→12:16)
[2017-09-23] MEDS: REMOVE OLD PATCH T-DERMAL SCH (01:00)
[2017-09-23 04:00] VITALS: BP 169/60; PULSE 86; RESP 20; TEMP 97.9; O2SAT 94
[2017-09-23] MEDS: MEROPENEM INJ 1,000 MG in SODIUM CHLORIDE 0.9% INJ 100 ML IV SCH (05:54)
[2017-09-23] MEDS: ENOXAPARIN SODIUM 40 MG/0.4 ML SYRINGE SQ SCH (06:14)
[2017-09-23] MEDS: CYCLOBENZAPRINE HCL 10 MG TAB PO SCH (06:14)
[2017-09-23 08:00] VITALS: BP 149/68; PULSE 82; RESP 17; TEMP 97.6; O2SAT 95
[2017-09-23] MEDS: ALBUTEROL SULFATE 90 MCG/ACT HFA 8 GM INHALER INH SCH (09:00)
[2017-09-23] MEDS: oxyCODONE/ACETAMINOPHEN 10 MG/325 MG TAB PO PRN (09:13)
[2017-09-23] MEDS: GABAPENTIN 300 MG CAP PO SCH (09:15)
[2017-09-23] MEDS: MULTIVITAMINS/MINERALS THERAPEUTIC TAB PO SCH (09:15)
[2017-09-23] MEDS: CITALOPRAM HYDROBROMIDE 20 MG TAB PO SCH (09:15)
[2017-09-23] MEDS: LACTOBACILLUS ACIDOPHILUS TAB PO SCH (09:15)
[2017-09-23] MEDS: VANCOMYCIN 500 MG VIAL (FOR ORAL USE ONLY) PO SCH (09:16)
[2017-09-23] MEDS: ASPIRIN EC 81 MG TABEC PO SCH (09:16)
[2017-09-23] MEDS: amLODIPine BESYLATE 5 MG TAB PO SCH (09:16)
[2017-09-23] MEDS: TIOTROPIUM BROMIDE 18 MCG INH INH SCH (09:18)
[2017-09-23] MEDS: BUDESONIDE-FORMOTEROL 160/4.5 MCG INHALER INH SCH (09:18)
[2017-09-23] MEDS: COLLAGENASE OINT 30 GM TUBE TOPICAL SCH (09:20)
[2017-09-23 11:31] LABS: AUTOMATED NEUTROPHIL # 14.5 TH/MM3 (1.8-7.7); BASOPHIL # 0.1 TH/MM3 (0-0.2); BASOPHIL % 0.4 % (0.0-2.0); EOSINOPHIL # 0.6 TH/MM3 (0-0.4); EOSINOPHIL % 3.6 % (0.0-4.0); HEMATOCRIT 29.2 % (39.0-51.0); HEMOGLOBIN 9.2 GM/DL (13.0-17.0); LYMPH % 6.2 % (9.0-44.0); LYMPHOCYTE # 1.1 TH/MM3 (1.0-4.8); MEAN CELL VOLUME 82.6 FL (80.0-100.0); MEAN CORPUSCULAR HGB CONC 31.5 % (32.0-36.0); MEAN PLATELET VOLUME 7.5 FL (7.0-11.0); MONO % 4.9 % (0.0-8.0); MONOCYTE # 0.8 TH/MM3 (0-0.9); NEUT % 84.9 % (16.0-70.0); PLATELET COUNT 410 TH/MM3 (150-450); RED BLOOD COUNT 3.54 MIL/MM3 (4.50-5.90); RED CELL DISTRIBUTION WIDTH 18.6 % (11.6-17.2); WHITE BLOOD COUNT 17.1 TH/MM3 (4.0-11.0)
[2017-09-23 12:00] VITALS: BP 131/57; PULSE 79; RESP 18; TEMP 97.9; O2SAT 94
--- NOTE | 2017-09-23 12:06 | HHI.DCPOC ---
Discharge Care Plan Diagnosis: (1) C. difficile diarrhea (2) MRSA (methicillin resistant staph aureus) culture positive (3) Impaired mobility and activities of daily living (4) COPD (chronic obstructive pulmonary disease) (5) HCAP (healthcare-associated pneumonia) Goals to Promote Your Health * To prevent worsening of your condition and complications * To maintain your health at the optimal level Directions to Meet Your Goals Take your medications as prescribed Follow your dietary instruction Follow activity as directed Keep your appointments as scheduled Take your immunizations and boosters as scheduled If your symptoms worsen call your PCP, if no PCP go to Urgent Care Center or Emergency Room Smoking is Dangerous to Your Health. Avoid second hand smoke Call the 24-hour hour crisis hotline for domestic abuse at La Nena Samuel MD, R1 Sep 23, 2017 12:05 pm
--- NOTE | 2017-09-23 12:06 | HHI.DCPOC ---
Discharge Care Plan Diagnosis: (1) C. difficile diarrhea (2) MRSA (methicillin resistant staph aureus) culture positive (3) Impaired mobility and activities of daily living (4) COPD (chronic obstructive pulmonary disease) (5) HCAP (healthcare-associated pneumonia) Goals to Promote Your Health * To prevent worsening of your condition and complications * To maintain your health at the optimal level Directions to Meet Your Goals Take your medications as prescribed Follow your dietary instruction Follow activity as directed Keep your appointments as scheduled Take your immunizations and boosters as scheduled If your symptoms worsen call your PCP, if no PCP go to Urgent Care Center or Emergency Room Smoking is Dangerous to Your Health. Avoid second hand smoke Call the 24-hour hour crisis hotline for domestic abuse at La Nena Samuel MD, R1 Sep 23, 2017 12:05 pm
--- NOTE | 2017-09-23 12:06 | HHI.DCPOC ---
Discharge Care Plan Diagnosis: (1) C. difficile diarrhea (2) MRSA (methicillin resistant staph aureus) culture positive (3) Impaired mobility and activities of daily living (4) COPD (chronic obstructive pulmonary disease) (5) HCAP (healthcare-associated pneumonia) Goals to Promote Your Health * To prevent worsening of your condition and complications * To maintain your health at the optimal level Directions to Meet Your Goals Take your medications as prescribed Follow your dietary instruction Follow activity as directed Keep your appointments as scheduled Take your immunizations and boosters as scheduled If your symptoms worsen call your PCP, if no PCP go to Urgent Care Center or Emergency Room Smoking is Dangerous to Your Health. Avoid second hand smoke Call the 24-hour hour crisis hotline for domestic abuse at La Nena Samuel MD, R1 Sep 23, 2017 12:05 pm
--- NOTE | 2017-09-23 12:08 | HHI.FPPN ---
Subjective Remarks Patient seen and examined at bedside. Pt stated he has diffused abdominal pain. He is having cough with productive sputum but his breathing is much improved with the breathing treatments. Pt continue to have diarrhea. Patient and his have decided to consider hospice to manage goals of care. Objective Vitals Vital Signs Date Time Temp Pulse Resp B/P (MAP) Pulse Ox O2 Delivery O2 Flow Rate FiO2 09/23/17 10:13 18 09/23/17 08:00 97.6 82 17 149/68 (95) 95 09/23/17 08:00 95 Room Air 09/23/17 07:14 18 09/23/17 04:00 97.9 86 20 169/60 (96) 94 09/23/17 00:00 99.6 86 20 149/65 (93) 98 09/22/17 19:00 99.7 90 18 130/68 (88) 96 09/22/17 18:57 96 21 09/22/17 18:48 Room Air 09/22/17 16:00 100.0 60 20 139/53 (81) 96 I/O 09/22/17 09/22/17 09/22/17 09/23/17 09/23/17 09/23/17 07:00 15:00 23:00 07:00 15:00 23:00 Intake Total 680 ml 1030 ml 820 ml Output Total 1500 ml 925 ml Balance -820 ml 1030 ml -105 ml Intake Oral 680 ml 720 ml IV Total 1030 ml 100 ml Output Urine Total 1500 ml 925 ml Drainage Total 0 ml # Voids 1 3 # Bowel Movements 1 12 3 Result Diagram: 09/23/17 1016 09/21/17 1000 Objective Remarks GENERAL: laying in bed, no distress SKIN: Left foot with wound vac in place, wrapped, erythema gone. Lateral wounds with dressings that are being changed daily. HEENT: Normocephalic, no nasal discharge CARDIOVASCULAR: Normal S1 and S2. RRR, no murmurs, rubs, or gallops RESPIRATORY: Mild diffuse expiratory wheezing in Left lung field. Mild rales in Right lung bases. GASTROINTESTINAL: Abdomen soft, nondistended, diffused tenderness to palpation, more pronounced LLQ and RLQ. No hepato-splenomegaly, or palpable masses. No guarding. MUSCULOSKELETAL: Missing left great toe. Non-tender calves BL NEUROLOGICAL: Awake and alert, fully oriented. A/P Assessment and Plan 72-year-old male with multiple comorbidities that presented with severe sepsis with possible source of new right lower lobe pneumonia and left foot wound with surrounding cellulitis that is increased from his last hospital visit. Sputum positive for MRSA. Stool studies positive for c. diff. Discharge Planning Patient has decided to pursue hospice care Problem List: (1) HCAP (healthcare-associated pneumonia) ICD Codes: J18.9 - Pneumonia, unspecified organism Status: Acute Plan: Acute onset right lower lobe infiltrate. Aspiration versus hospital acquired pneumonia. Blood cultures negative. MRSA in sputum. - Started on Azithromycin and Aztreonam at admission 09/16/17, discontinued - Started Vancomycin on 09/19 for MRSA in sputum by infectious disease. ID recommended patient to complete 10 day course of vancomycin for treatment of MRSA PNA. - Infectious disease consulted and following, appreciate recommendations - Legionella/pneumoccal antigens negative - Scheduled DuoNeb treatments -Given multiple hospitalizations during the past year patient and decided to pursue hospice care (2) Open wound of left foot ICD Codes: S91.302A - Unspecified open wound, left foot, initial encounter Status: Chronic Plan: Increased redness at admission but now resolved, likely from overuse of foot versus cellulitis. Foot x-ray not suggestive of osteomyelitis. - Wound care was consulted, appreciate recommendations. - Wound vac in place, wound care orders placed for nursing staff - Treat lateral wounds with Santyl, daily dressing changes - Use pillows to prop up legs and offset pressure - Infectious disease on board, has multiple antibiotic allergies and frequent history of c.diff colitis. - Not likely to be new foot infection at this point - Continue to work with PT and OT - Podiatry has signed off, to follow up with podiatry at discharge (3) HTN (hypertension) ICD Codes: I10 - Essential (primary) hypertension Status: Chronic Plan: -Continue home amlodipine and lisinopril -Vasotec 1.25 mg IV when necessary SBP greater than or equal to 170 or DBP greater than or equal to 100 or heart rate greater than 65 (4) Shoulder pain, left ICD Codes: M25.512 - Pain in left shoulder Status: Chronic Plan: -Chronic left shoulder pain -Continue home Flexeril and Percocet 5-325 mg 1 tab every 6 hours -Tylenol 650mg PRN for recent Left upper thigh pain (5) Chronic Medical Problems Status: Chronic Plan: CAD: Continue Aspirin 81mg PO daily COPD: Duonebs prn, continue Advair, Combivent and albuterol inhalers Hypertension: Continue home amlodipine pain and lisinopril Hyperlipidemia: Continue Atorvastin Depression: Continue home Celexa Dementia: Continue donezepil 10 mg by mouth at bedtime Anemia: No current source of bleeding suspected. Due to history of GI bleed, will monitor closely. Transfuse if hemoglobin less than 7, or less than 8 and symptomatic (6) C. difficile diarrhea ICD Codes: A04.7 - Enterocolitis due to Clostridium difficile Status: Acute Plan: Pt with hx of C. diff infection developed fever on Tmax of 102F on 09/22 with associated sxs diarrhea and abdominal tenderness on abdominal exam. -T max of 101 in 24 hrs, currently afebrile at 97.9 -blood cx no growth in 1 day -positive for c. diff toxin pcr -Pt started on oral vancomycin last night, per ID recommendations (7) FEN/DVT PPX/GI PPX/Nursing Orders Status: Acute Plan: Fluids: PO fluids Electrolytes: Will monitor and replace as needed Nutrition: Regular diet DVT Prophylaxis: Lovenox 40mg daily Dispo: Given multiple hospitalizations during the past year patient and has decided to pursue hospice care, pt to be discharged to hospice facility today Problem Qualifiers (1) Open wound of left foot: Qualified Codes: S91.302D - Unspecified open wound, left foot, subsequent encounter (2) Shoulder pain, left: Qualified Codes: M25.512 - Pain in left shoulder; G89.29 - Other chronic pain La Nena Samuel MD, R1 Sep 23, 2017 12:08
[2017-09-23 12:20] LABS: AST (GOT) 19 U/L (15-37); BLOOD UREA NITROGEN 14 MG/DL (7-18); CALCIUM 8.9 MG/DL (8.5-10.1); CHLORIDE 105 MEQ/L (98-107); CREATININE 0.63 MG/DL (0.60-1.30); GLOMERULAR FILTRATION RATE 125 ML/MIN (>89); GLUCOSE,RANDOM 92 MG/DL (74-106); SODIUM (NA) 138 MEQ/L (136-145)
[2017-09-23 12:26] LABS: ALKALINE PHOSPHATASE 95 U/L (45-117); ALT (GPT) 29 U/L (12-78); TOTAL BILIRUBIN ADULT 0.3 MG/DL (0.2-1.0); TOTAL PROTEIN 6.2 GM/DL (6.4-8.2)
[2017-09-23] MEDS ORDERED: PHARMACY ORDERED LAB ONE (22:45)
--- NOTE | 2017-09-24 21:02 | HHI.DS ---
Discharge Summary Admission Date Sep 16, 2017 at 22:42 Admitting Diagnosis Right PNA, sepsis (1) HCAP (healthcare-associated pneumonia) Plan: Acute onset right lower lobe infiltrate. Aspiration versus hospital acquired pneumonia. Blood cultures negative. MRSA in sputum. - Started on Azithromycin and Aztreonam at admission 09/16/17, discontinued - Started Vancomycin on 09/19 for MRSA in sputum by infectious disease. ID recommended patient to complete 10 day course of vancomycin for treatment of MRSA PNA. - Infectious disease consulted and following, appreciate recommendations - Legionella/pneumoccal antigens negative - Scheduled DuoNeb treatments -Given multiple hospitalizations during the past year patient and decided to pursue hospice care ICD Codes: J18.9 - Pneumonia, unspecified organism Status: Acute (2) Open wound of left foot Plan: Increased redness at admission but now resolved, likely from overuse of foot versus cellulitis. Foot x-ray not suggestive of osteomyelitis. - Wound care was consulted, appreciate recommendations. - Wound vac in place, wound care orders placed for nursing staff - Treat lateral wounds with Santyl, daily dressing changes - Use pillows to prop up legs and offset pressure - Infectious disease on board, has multiple antibiotic allergies and frequent history of c.diff colitis. - Not likely to be new foot infection at this point - Continue to work with PT and OT - Podiatry has signed off, to follow up with podiatry at discharge ICD Codes: S91.302A - Unspecified open wound, left foot, initial encounter Status: Chronic (3) HTN (hypertension) Plan: -Continue home amlodipine and lisinopril -Vasotec 1.25 mg IV when necessary SBP greater than or equal to 170 or DBP greater than or equal to 100 or heart rate greater than 65 ICD Codes: I10 - Essential (primary) hypertension Status: Chronic (4) Shoulder pain, left Plan: -Chronic left shoulder pain -Continue home Flexeril and Percocet 5-325 mg 1 tab every 6 hours -Tylenol 650mg PRN for recent Left upper thigh pain ICD Codes: M25.512 - Pain in left shoulder Status: Chronic (5) Chronic Medical Problems Plan: CAD: Continue Aspirin 81mg PO daily COPD: Duonebs prn, continue Advair, Combivent and albuterol inhalers Hypertension: Continue home amlodipine pain and lisinopril Hyperlipidemia: Continue Atorvastin Depression: Continue home Celexa Dementia: Continue donezepil 10 mg by mouth at bedtime Anemia: No current source of bleeding suspected. Due to history of GI bleed, will monitor closely. Transfuse if hemoglobin less than 7, or less than 8 and symptomatic Status: Chronic (6) C. difficile diarrhea Plan: Pt with hx of C. diff infection developed fever on Tmax of 102F on 09/22 with associated sxs diarrhea and abdominal tenderness on abdominal exam. -T max of 101 in 24 hrs, currently afebrile at 97.9 -blood cx no growth in 1 day -positive for c. diff toxin pcr -Pt started on oral vancomycin last night, per ID recommendations ICD Codes: A04.7 - Enterocolitis due to Clostridium difficile Status: Acute (7) FEN/DVT PPX/GI PPX/Nursing Orders Plan: Fluids: PO fluids Electrolytes: Will monitor and replace as needed Nutrition: Regular diet DVT Prophylaxis: Lovenox 40mg daily Dispo: Given multiple hospitalizations during the past year patient and has decided to pursue hospice care, pt to be discharged to hospice facility today Status: Acute Brief History Patient is a 72-year-old male with a past medical history of COPD, dementia, C. 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 Patient states that he could not get out of the chair and felt like he lost all his strength. He also complains of shortness of breath and a headache for 5-6 days. Patient states that he called the ambulance which brought him to the hospital. He does not know if he had a fever but he has had chills. Notably, the patient was recently discharged from the [facility] on September 12, 2017 where he was treated for Klebsiella pneumonia with a left pleural effusion. He also had a wound over his left foot and several stage II ulcers over his lateral left foot that was managed by wound care. Patient was discharged home with home health care and a wound vacuum. Today, patient states that his left foot looks more red than usual. He complains of 8/10 pain in his left foot. CBC/BMP: 09/23/17 1016 09/23/17 1016 Significant Findings Laboratory Tests Test 09/22/17 12:20 11/7/17 13:20 09/23/17 10:16 Urine Protein 100 mg/dL (NEG-TRACE) Urine Occult Blood SMALL (NEG) Urine Bacteria FEW /hpf (NONE) Stool C. difficile Toxin (PCR) POSITIVE (NEGATIVE) Stl C. difficile Toxin Epiderm 027 PRESUMPTIVE POSITIVE White Blood Count 28.9 TH/MM3 (4.0-11.0) 17.1 TH/MM3 (4.0-11.0) Red Blood Count 3.87 MIL/MM3 (4.50-5.90) 3.54 MIL/MM3 (4.50-5.90) Hemoglobin 10.1 GM/DL (13.0-17.0) 9.2 GM/DL (13.0-17.0) Hematocrit 32.1 % (39.0-51.0) 29.2 % (39.0-51.0) Mean Corpuscular Hemoglobin 26.0 PG (27.0-34.0) 26.0 PG (27.0-34.0) Mean Corpuscular Hemoglobin Concent 31.3 % (32.0-36.0) 31.5 % (32.0-36.0) Red Cell Distribution Width 18.8 % (11.6-17.2) 18.6 % (11.6-17.2) Platelet Count 463 TH/MM3 (150-450) Neutrophils (%) (Auto) 92.3 % (16.0-70.0) 84.9 % (16.0-70.0) Lymphocytes (%) (Auto) 3.0 % (9.0-44.0) 6.2 % (9.0-44.0) Neutrophils # (Auto) 26.7 TH/MM3 (1.8-7.7) 14.5 TH/MM3 (1.8-7.7) Lymphocytes # (Auto) 0.9 TH/MM3 (1.0-4.8) Monocytes # (Auto) 1.0 TH/MM3 (0-0.9) Eosinophils # (Auto) 0.6 TH/MM3 (0-0.4) Total Protein 6.2 GM/DL (6.4-8.2) Albumin 2.0 GM/DL (3.4-5.0) Potassium Level 3.3 MEQ/L (3.5-5.1) PE at Discharge GENERAL: laying in bed, no distress SKIN: Left foot with wound vac in place, wrapped, erythema gone. Lateral wounds with dressings that are being changed daily. HEENT: Normocephalic, no nasal discharge CARDIOVASCULAR: Normal S1 and S2. RRR, no murmurs, rubs, or gallops RESPIRATORY: Mild diffuse expiratory wheezing in Left lung field. Mild rales in Right lung bases. GASTROINTESTINAL: Abdomen soft, nondistended, diffused tenderness to palpation, more pronounced LLQ and RLQ. No hepato-splenomegaly, or palpable masses. No guarding. MUSCULOSKELETAL: Missing left great toe. Non-tender calves BL NEUROLOGICAL: Awake and alert, fully oriented. Pt Condition on Discharge: Stable Discharge Disposition: Hospice/Med Facility Discharge Instructions DIET: Follow Instructions for: As Tolerated, No Restrictions Activities you can perform: Weight Bearing as La Nena George MD, R1 Sep 24, 2017 21:02
== END 2017-09-23 13:25 | disposition hospice, inpatient (51) | DRG 871 ==
LOC: NEPC 20:38 → NEDA 22:42 → N07A 23:53
PROVIDERS: ADMIT Family Medicine; ATTEND Family Medicine
DX: A41.9 Sepsis, unspecified organism (principal); J15.212 Pneumonia due to Methicillin resistant Staphylococcus aureus; A04.71 Enterocolitis due to Clostridium difficile, recurrent; F03.90 Unspecified dementia, unspecified severity, without behavioral disturbance, psychotic disturbance, mood disturbance, and anxiety; J44.0 Chronic obstructive pulmonary disease with (acute) lower respiratory infection; L03.116 Cellulitis of left lower limb; N31.9 Neuromuscular dysfunction of bladder, unspecified; L97.529 Non-pressure chronic ulcer of other part of left foot with unspecified severity; D64.9 Anemia, unspecified; R65.20 Severe sepsis without septic shock; Y95 Nosocomial condition; I10 Essential (primary) hypertension; M25.512 Pain in left shoulder; G89.29 Other chronic pain; E78.5 Hyperlipidemia, unspecified; F32.9 Major depressive disorder, single episode, unspecified; M19.90 Unspecified osteoarthritis, unspecified site; H40.9 Unspecified glaucoma; M25.559 Pain in unspecified hip; Z66 Do not resuscitate; I25.10 Atherosclerotic heart disease of native coronary artery without angina pectoris; H91.93 Unspecified hearing loss, bilateral; M48.00 Spinal stenosis, site unspecified; Z79.899 Other long term (current) drug therapy; Z79.82 Long term (current) use of aspirin; Z88.1 Allergy status to other antibiotic agents; Z89.412 Acquired absence of left great toe; Z86.73 Personal history of transient ischemic attack (TIA), and cerebral infarction without residual deficits; Z87.891 Personal history of nicotine dependence; Z87.442 Personal history of urinary calculi; Z87.440 Personal history of urinary (tract) infections; Z86.19 Personal history of other infectious and parasitic diseases
CPT/HCPCS: 71010; 71020; 73620; 80048; 80053; 80202; 81001; 83605; 83735; 84100; 85025; 85027; 85652; 86403; 87040; 87070; 87147; 87186; 87205; 87449; 87493; 87804; 93005; 94150; 94640; 94664; 96360; J1650; J2185; J3370; J7030; J7040